=== PATIENT | male | born 1950 | race Caucasian/White ===

== ENCOUNTER 2017-08-31 10:30 | Outpatient (RCR) | payer MEDICARE, OTHER, SELFPAY ==
--- NOTE | 2017-06-11 11:20 | HP.PTEVAL ---
Patient's Visit Information FLORENCIA YI is a 67 year old M referred to Physical Therapy by KELLEY Drake with a diagnosis of SHOULDER ARTHRITIS,S/P TSR. Date of Evaluation: 06/11/17 Physical Therapist: Talha Juarez PT, - Visit Plan Frequency: 2x /Week Duration: 8-12 WEEKS Plan: *SEE PROTOCAL*-FOR PROGRESSION S/P TSR -JUNE 02. PRECAUTION - KEEP ELBOW AT 90 DEGREES for 3weeks ,ER 20 degrees 6 weeks NO ACTIVE ELBOW FLEXION. 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 Drake at [facility]. Patient d/c to home next day with sling.Sling on for 3weeks after surgery. Prior to surgery patient had CATSCAN of shoulder. Patient had pain in shoulder ,but patient also had bone spurs and long heasd bicep torn. Patient has limited with all ADL'S and self hygine and housework tasks. Denies parathesia/tingling . Sleeping good. Patient also had arhtroscopic surgery 6 years ago .PRECAUTION: PACEMAKER. VOCATION: retired. SOCIAL: . HOBBIES: baseball - Pain Left Shoulder Pain Intensity (Out of 10): 1 Pain Intensity Range: 10 - Objective POSTURE: mild foward posture,sling inact. SKIN : inscion well approximate ,sterry strips ,banage no drainage. NEURO: inact ,denies parathesia/tingling. PROM:shoulder flexion 80 degrees with elbow bent 90 degrees,ER to 0 degrees. 3 weeks maitain. MMT: NT - Goals Goal 1:: Independant with HEP . Goal Time Frame: 8-12 Weeks Goal 2:: Patient to be Independant with posture for ADL'S Goal Time Frame: 8-12 Weeks Goal 3:: Patinet to decrease pain by 75% or greater to improve function with ADLS' Goal Time Frame: 8-12 Weeks Goal 4:: Patient improve AROM shoulder flexion 145 ,abduction in scapation 140 ,ER 70 degrees to improve function with ADL'S Goal Time Frame: 4-6 Weeks Goal 5:: Patient increase strength RTC 4/5 ,DELTOID 3+/5-4-/5 to omprove ADL'S Goal Time Frame: 4-6 Weeks Goal 6:: Patient be able to perform ADL'S and housework task with min limiations above 90 degrees Goal Time Frame: 8-12 Weeks - Rehabilitation Potential Physical Therapy Diagnosis: This patient underwent s/p TSR with bicep tendon repair with current impairments with ROM ,strength,pain with decits with ADLS' ,self hygine and housework tasks,thus benifit from skilled PT Rehabilitation Potential: Good - Anticipated Interventions Patient/Client Instruction: Educate patient on: Condition, Plan of Care For the Purpose of:: To decrease pain, To increase ROM, To improve nutrient delivery to tissue, To increase oxygenation perfusion, To improve muscle performance and motor function, To improve ability to perform ADL's, To improve performance and independence with ADL's, To improve ability of physical actions for home/community/work/leisure, To improve health of tissue, To decrease soft tissue restriction, To increase flexibility/ROM, To assume or resume ADL's, To improve tolerance to ADL's Therapeutic Exercise to Include: Strength training, Postural training, Passive ROM, Active ROM Comment: AAROM SHOULDER,RTC/SCAPULAR. SEE PROTOCAL. ELBOW FLEXION 90 FOR 3 WEEKS,ER 20 DEGRREES 6WEEKS For the Purpose of:: To decrease pain, To increase ROM, To improve muscle performance and motor function, To improve ability to perform ADL's, To increase tolerance to activity/condition/position, To improve performance and independence with ADL's, To improve ability of physical actions for home/community/work/leisure, To improve health of tissue, To decrease soft tissue restriction, To increase flexibility/ROM, To assume or resume ADL's, To improve ability to perform tasks related to life management, To improve tolerance to ADL's Cryotherapy (ice pack, ice massage): Yes Thermo therapy (hot pack): Yes For the Purpose of:: To decrease pain, To increase ROM, To improve nutrient delivery to tissue, To increase oxygenation perfusion, To improve health of tissue, To decrease soft tissue restriction Thank you for the opportunity to evaluate your patient. For Medicare and Medicare HMO plans, please review the plan of care and approve it. It will need to be FAXED BACK to us at [phone] for Medicare purposes. Please let me know if there are questions or concerns regarding this plan of care. Physician Signature: Date:
--- NOTE | 2017-08-31 11:08 | HP.PTDCSUM_ITS ---
HP - PT D/C Summary It has been my pleasure to treat FLORENCIA YI under orders from KELLEY GRANT, for the diagnosis of SHOULDER ARTHRITIS,S/P TSR for a total of 10 visit(s). Discharge Date: Please see the following information for a summary of their discharge status. - Subjective Subjective: Doing good ..ocassionally clicking. Able to do all ADL'S and function - Pain Left Shoulder Pain Intensity (Out of 10): 0 - Overall Improvement % Improvement: 100 - Objective Objective/Function: POSTURE: mild foward head rounded shoulders. PALAPTION: unremarkable. NEURO: intact. AROM: flexion 150 degrees,abd 140 degrees ,ER 90. MMT: 4/5 RTC/DELTOID. FUNCTION TEST: behind neck C6,IR tightness L1 - Goals Goal 1:: Independant with HEP . Goal Progress: Goal Met Goal 2:: Patient to be Independant with posture for ADL'S Goal Progress: Goal Met Goal 3:: Patinet to decrease pain by 75% or greater to improve function with ADLS' Goal Progress: Goal Met Goal 4:: Patient improve AROM shoulder flexion 145 ,abduction in scapation 140 , ER 70 degrees to improve function with ADL'S Goal Progress: Goal Met Goal 5:: Patient increase strength RTC 4/5 ,DELTOID 3+/5-4-/5 to omprove ADL'S Goal Progress: Goal Met Goal 6:: Patient be able to perform ADL'S and housework task with min limiations above 90 degrees Goal Progress: Goal Met - Plan Plan: D/C TO HEP - D/C Information If there are questions or concerns regarding this patient's physical therapy, please feel free to call me at [phone]. Thank you for the referral of this patient. Sincerely, Talha Juarez, PT,
== END 2017-08-31 19:00 | disposition home or self-care (01) ==
LOC: PT 10:30
PROVIDERS: Family Provider Family Medicine; PCP Family Medicine
DX: M19.019 Primary osteoarthritis, unspecified shoulder (principal)
CPT/HCPCS: 97110; 97162; G8985; G8988

== ENCOUNTER 2019-03-27 11:06 | Outpatient (RCR) | payer MEDICARE, OTHER, SELFPAY | END 2019-03-27 23:59 | disposition home or self-care (01) | LOC: DC 11:06 | PROVIDERS: Family Provider Family Medicine; PCP Family Medicine; Visit Provider Nurse Practitioner Family | DX: Z71.3 Dietary counseling and surveillance (principal); E11.9 Type 2 diabetes mellitus without complications; K74.60 Unspecified cirrhosis of liver | CPT/HCPCS: 97802 ==

== ENCOUNTER 2019-08-20 00:06 | Emergency (ER) | payer MEDICARE, OTHER, SELFPAY ==
[2019-08-20 00:06] VITALS: BP 191/110; PULSE 64; RESP 15; TEMP 36.7; O2SAT 97; BMI 24.8
--- NOTE | 2019-08-20 00:11 | CT_ITS ---
We are attempting to reach an attending provider to discuss findings. An addendum with communication details will be sent when the communication is complete. STUDY: CT ABDOMEN AND PELVIS WITHOUT CONTRAST REASON FOR EXAM: Male, 69 years old. N/V X 4 TODAY RADIATION DOSAGE (If Supplied By Facility): CTDIvol = ( 16.89 ) mGy, DLP = ( 866.92 ) mGycm TECHNIQUE: Transaxial images were obtained from the dome of the diaphragm to the symphysis pubis without oral contrast, and without intravenous contrast. Sagittal and coronal images were reconstructed. Individualized dose optimization techniques were used for this CT. COMPARISON: September 22, 2012 CT scan abdomen and pelvis. FINDINGS: The visualized lung bases are unremarkable. There is borderline cardiac enlargement there is partially visualized pacer leads overlying the heart. The liver is lobulated low attenuating left hepatic lobe. There is visualized pericholecystic fluid ill-defined appearance of the gallbladder wall. There is fluid adjacent to the liver.. There is a inhomogeneous appearance of the spleen which may be related to the timing of this study. The spleen measures 14.8 x 14.1 x 10.1 cm. There is diffuse atrophy of the pancreas. Normal bilateral adrenal glands. Is a cyst in the right kidney measuring 1.9 x 1.7 cm. The Hounsfield units are in the range of simple fluid. There is a cyst measuring 6.3 mm. There is a well-circumscribed cystic structure left kidney measuring 1.8 x 1.3 cm. Larger than prior study, 2013, 7 years ago when it measured 1.1 x 1.0 cm. Normal visualized stomach. There is a decompressed small bowel and distention of the right there is moderate stool in the colon. There is non-visualization of the appendix. There is tortuous and partially calcified. There is calcification of the bilateral renal arteries. Normal inferior vena cava. Allowing for mixing of contrast there is a filling defect within the portal vein suggesting possible partial thrombus see image 51 series 601 and image 35 series 2. There is a thick-walled appearance of the bladder suspicious for cystitis similar to prior study. There is postoperative change in the anterior aspect of the pelvis suggesting prior hernia repair. There is a small umbilical hernia containing fat. There are diffuse degenerative changes of the visualized lumbar spine. CT/Abdomen/Pelvis W IV Cont ONLY IMPRESSION: Lobulated fatty infiltrated liver''s compatible with cirrhosis. There is a ill-defined appearance of the gallbladder with pericholecystic fluid. Consider acute cholecystitis. Pericholecystic fluid, In this setting it could be related to hepatitis or ascites. There is a filling defect within the portal vein and splenic confluence and inferior mesenteric vein, see image 53 axial views, which may represent partial thrombosis recommend follow-up ultrasound of the upper abdomen. In homogeneous appearance of the enlarged spleen which may represent a contrast enhancement phase phenomenon. Bilateral renal cysts larger than prior study. Simple cysts can enlarge over time however could consider follow-up ultrasound. There is a decompressed appearance of the left side small bowel compared to the right side small bowel. This is suspicious for the possibility of a partial small bowel obstruction possibly associated with chronic partial malrotation or internal hernia. Constipation diverticulosis no visualized diverticulitis. Wall thickening of the bladder suspicious for cystitis. Visualized pacemaker. Electronically Signed: Cassie Arriola MD at 1:41 EDT Tel , Service support ,
--- NOTE | 2019-08-20 00:12 | ED.VIS.GEN ---
History of Present Illness Chief Complaint: Nausea/Vomiting Informant: Patient Onset: Today Context: Sudden Onset Timing: Continuous Current Severity: Moderate Maximum Severity: Moderate Narrative: The patient is a 69-year-old male with medical history significant for autoimmune hepatitis who is currently on transplant medications without having transplant, prior double hernia repair, hypertension, and history of Lyme disease the presents to the emergency department with nausea and vomiting. Patient denies any pain. He states today, he began to have this a sensation of nausea. He states that every time he reviewed he would vomit. He states his been approximately 4 times. He is not been able to keep anything down. He states he is moving his bowels without issue. He denies any fevers or chills. He denies any chest pain or shortness of breath. He states he is otherwise been in his normal state of health. Prior similar symptoms: No Recent Illness/Hospitalization: No Past Medical History - Allergies and Home Meds Allergies/Adverse Reactions: Allergies acetaminophen [From Vicodin] Allergy (Verified 08/20/19 00:13) Anaphylaxis hydrocodone [From Vicodin] Allergy (Verified 08/20/19 00:13) Anaphylaxis Primary Care Physician: Varghese Orr III, MD [Primary Care Provider] - Prior records reviewed: Yes Past Medical History: - - Hypertension, autoimmune hepatitis, drug-induced diabetes Surgical History: herniorrhaphy Smoking Status: Former smoker Review of Systems General: Denies: Chills, Fever, Sweats Eyes: Denies: Visual changes - bilaterally, Diplopia ENT: Denies: Rhinorrhea, Sore throat Cardiovascular: Denies: Chest pain, Palpitations Respiratory: Denies: Dyspnea, Cough, Dyspnea on exertion Gastrointestinal: Reports: Nausea, Vomiting. Denies: Abdominal pain, Diarrhea, Melena, Hematochezia Genitourinary: Denies: Dysuria, Hematuria, Frequency Musculoskeletal: Denies: Back pain, Extremity Pain Skin: Denies: Rash, Wounds Neurological: Denies: Headache, Weakness, Numbness Physical Exam Vital Signs/Narrative: Vital Signs Temp Pulse Resp BP Pulse Ox 08/20/19 00:06 98.0 F 64 15 191/110 H 97 Inital Vital Signs reviewed: Yes General: Well nourished, Well developed, No Acute Distress Head: Normocephalic, Atraumatic Eyes: Perrl, EOMI ENT: Moist mucous membranes, No rhinorrhea Neck: Supple, Nontender Cardiovascular: Regular rate, Regular rhythm, No murmurs Respiratory: No distress, CTA bilaterally, Chest nontender Abdomen: Soft, Nontender, Nondistended, Normal bowel sounds Back: Nontender, Normal Inspection Extremities: Nontender, No edema Skin: Normal color, No rash Neurological: Alert, Oriented x3, Cranial nerves II-XII grossly intact, Normal Strength, Normal Sensation Psychological: Normal affect, Normal Mood Diagnostic/Tx/Re-eval Clinical Impression(s) from Imaging Studies Abdomen/Pelvis CT 08/20/19 00:11 IMPRESSION: Lobulated fatty infiltrated liver''s compatible with cirrhosis. There is a ill-defined appearance of the gallbladder with pericholecystic fluid. Consider acute cholecystitis. Pericholecystic fluid, In this setting it could be related to hepatitis or ascites. There is a filling defect within the portal vein and splenic confluence and inferior mesenteric vein, see image 53 axial views, which may represent partial thrombosis recommend follow-up ultrasound of the upper abdomen. In homogeneous appearance of the enlarged spleen which may represent a contrast enhancement phase phenomenon. Bilateral renal cysts larger than prior study. Simple cysts can enlarge over time however could consider follow-up ultrasound. There is a decompressed appearance of the left side small bowel compared to the right side small bowel. This is suspicious for the possibility of a partial small bowel obstruction possibly associated with chronic partial malrotation or internal hernia. Constipation diverticulosis no visualized diverticulitis. Wall thickening of the bladder suspicious for cystitis. Visualized pacemaker. Electronically Signed: Cassie Arriola MD at 1:41 EDT Tel , Service support , ADDENDUM: 08/20/19 0157 IMPRESSION: Lobulated fatty infiltrated liver''s compatible with cirrhosis. There is a ill-defined appearance of the gallbladder with pericholecystic fluid. Consider acute cholecystitis. Pericholecystic fluid, In this setting it could be related to hepatitis or ascites. There is a filling defect within the portal vein and splenic confluence and inferior mesenteric vein, see image 53 axial views, which may represent partial thrombosis recommend follow-up ultrasound of the upper abdomen. In homogeneous appearance of the enlarged spleen which may represent a contrast enhancement phase phenomenon. Bilateral renal cysts larger than prior study. Simple cysts can enlarge over time however could consider follow-up ultrasound. There is a decompressed appearance of the left side small bowel compared to the right side small bowel. This is suspicious for the possibility of a partial small bowel obstruction possibly associated with chronic partial malrotation or internal hernia. Constipation diverticulosis no visualized diverticulitis. Wall thickening of the bladder suspicious for cystitis. Visualized pacemaker. N.B. : The above information has been verbally conveyed by Cassie Arriola MD to Babatunde Lundberg MD, on 08/20/2019 01:45:49 (ET). Electronically Signed: Cassie Arriola MD at 1:41 EDT Tel , Service support , Abnormal Lab Results 08/20/19 08/20/19 08/20/19 00:20 00:20 00:55 WBC 5.8 RBC 4.31 L Hgb 15.2 Hct 43.5 MCV 100.9 H MCH 35.3 H MCHC 34.9 RDW Std Deviation 53.3 H RDW Coeff of Donna 14.2 Plt Count 74 L MPV 12.7 H Immature Gran % (Auto) 0.300 Neut % (Auto) 76.0 H Lymph % (Auto) 16.1 L [place] % (Auto) 7.1 Eos % (Auto) 0.3 Baso % (Auto) 0.2 Absolute Neuts (auto) 4.4 Absolute Lymphs (auto) 0.93 Nucleated RBC % 0 Platelet Estimate MOD DEC Sodium 135 L Potassium 4.0 Chloride 99 Carbon Dioxide 29.0 Anion Gap 7 BUN 22 H Creatinine 1.08 Estim Creat Clear Calc 68.86 Est GFR (MDRD) Af Amer 87 Est GFR (MDRD) Non-Af 72 BUN/Creatinine Ratio 20.4 H Glucose 158 H Calcium 9.4 Total Bilirubin 1.70 H AST 80 H ALT 64 H Alkaline Phosphatase 198 H Total Protein 8.2 Albumin 3.6 Globulin 4.6 H Albumin/Globulin Ratio 0.8 L Lipase 20 L Urine Color Yellow Urine Clarity Sl. Cloudy Urine pH 6.0 Ur Specific [place] 1.015 Urine Protein 100 H Urine Glucose (UA) Normal Urine Ketones Negative Urine Occult Blood 25 H Urine Nitrite Negative Urine Bilirubin Negative Urine Urobilinogen Normal Ur Leukocyte Esterase Negative Urine RBC 0 SEEN Urine WBC 0 SEEN Ur Squamous Epith Cells 0 SEEN Amorphous Sediment 1+ Urine Bacteria 0 SEEN Urine Mucus 0 SEEN - Medical Decision Making Patient is a 69-year-old male with history of autoimmune hepatitis that presents to the emergency department nausea and vomiting. He has absolutely no pain. He states however, when he tries to eat, he has a sudden sensation that he is full and will have to vomit. IV was established. The patient was given fluids and antiemetics with some improvement of his symptoms. Labs were obtained. He does have some elevation of his liver functions, but this does appear to be chronic in nature. He is also thrombocytopenic which is chronic in nature. Patient underwent CT of the abdomen and pelvis. There is multiple abnormalities that were noted. There was questionable cholecystitis versus ascites or cirrhosis. Again, the patient has no right upper quadrant pain and his liver functions are stable. My suspicion for cholecystitis is low. However, he also has evidence of multiple thrombosis of the mesenteric return system and a questionable partial small bowel obstruction versus focal ileus. I do feel that this patient has been to require higher level of care especially given his autoimmune hepatitis and the fact he is on multiple immunosuppressants now with thrombus. I discussed this with the patient and he is requesting transfer to the [facility], where he does follow with GI service. I initially discussed the patient with surgery who deferred to medicine. I discussed this with the medicine quarterback, who deferred to hepatology. The patient was accepted by Dr. Bear. She would prefer to hold on acute anticoagulation until the patient is evaluated. Impression 1. Nausea and vomiting 2. History of autoimmune hepatitis 3. Mesenteric vein thrombosis 4. Partial bowel obstruction ED Disposition - Plan for ED Patient: Referrals: Varghese Orr III, MD [Primary Care Provider] -
[2019-08-20] MEDS: 0.9% Normal Saline 1,000 ML 1000 ML IV (00:21)
[2019-08-20] MEDS: Ondansetron 4 MG/2 ML Vial IV (00:21)
[2019-08-20 00:32] LABS: Absolute Lymphocyte Count 0.93 X10^3/uL (0.83-4.51); Absolute Neutrophil Count 4.4 X10^3/uL (2.0-7.7); Basophil# 0.01 X10^3/uL; Basophil% 0.2 % (0-1); Eosinophil# 0.02 X10^3/uL; Eosinophils% 0.3 % (0-5); Hematocrit 43.5 % (40-54); Hemoglobin 15.2 g/dL (13.0-16.5); Lymphocyte # 0.93 X10^3/ul (4.0); Lymphocyte % 16.1 % (19-41); Mean Corp Hgb Conc 34.9 g/dL (32-36); Mean Corpuscular Hgb 35.3 pg (27.0-32.0); Mean Corpuscular Volume 100.9 fL (80-94); Mean Platelet Vol. 12.7 fl (6.2-12.0); Monocyte# 0.41 X10^3/uL; Monocyte% 7.1 % (0-10); NRBC Flagged by Analyzer 0 % (0-5); POSITIVE COUNT YES; Platelet Count 74 K/mm3 (150-450); RBC Distribution Width CV 14.2 % (11.6-14.6); RBC Distribution Width SD 53.3 fl (35.1-43.9); Red Blood Count 4.31 M/mm3 (4.6-6.2); White Blood Count 5.8 K/mm3 (4.4-11.0)
[2019-08-20 00:41] LABS: Differential Indicated SCAN CRITERIA MET
[2019-08-20 00:48] LABS: ALB/GLOB Ratio 0.8 RATIO (0.9-2.4); AST(SGOT) 80 U/L (15-37); Alanine Aminotransfer ALT/SGPT 64 U/L (16-61); Albumin, Serum 3.6 g/dL (3.2-5.0); Alkaline Phosphatase 198 U/L (45-117); Anion Gap 7 (5-15); BUN 22 mg/dL (7-18); BUN/Creat Ratio 20.4 RATIO (10-20); Calcium,Total 9.4 mg/dL (8.5-10.1); Chloride 99 mmol/L (98-107); Creatinine, Serum 1.08 mg/dL (0.70-1.30); EST Glomerular Filtration Rate 72 mL/min (>60); Est Glom Filt Rate - Afr Amer 87 mL/min (>60); Estimated Creatinine Clearance 68.86 ml/min; Globulin 4.6 g/dL (2.2-4.2); Glucose 158 mg/dL (74-106); Lipase 20 U/L (73-393); Protein, Total 8.2 g/dL (6.4-8.2); Sodium Level 135 mmol/L (136-145)
[2019-08-20 00:59] LABS: Bacteria 0 SEEN /hpf (None Seen); Mucous, Urine 0 SEEN /hpf (<or=2+); Red Blood Cells-Urine 0 SEEN /hpf (0-5); Squamous Epithelial Cells - UA 0 SEEN /hpf (0-5); White Blood Cells 0 SEEN /hpf (0-5)
[2019-08-20 01:01] LABS: Platelet Estimate MOD DEC (ADEQ)
[2019-08-20 01:03] LABS: Color, Urine Yellow (Yellow); Glucose, Dipstick Normal (Normal); Ketone-Dipstick Negative (Negative); Leukocyte Esterase-Dipstick Negative /ul (Negative); Nitrite-Dipstick Negative (Negative); Occult Blood-Urine 25 /ul (Negative); Protein-Dipstick 100 mg/dl (Negative); Specific Gravity, Urine 1.015 (1.002-1.030); Urine Bilirubin Dipstick Negative (Negative); Urine Clarity Sl. Cloudy (Clear); Urine Urobilinogen Normal (Normal)
[2019-08-20 01:29] LABS: Amorphous Sediment 1+
[2019-08-20 02:06] VITALS: BP 161/109; RESP 15; O2SAT 94
[2019-08-20 02:13] LABS: International Normalized Ratio 1.1; Partial Thromboplast Time 30.7 Seconds (24.1-36.2); Prothrombin Time (Protime)PT. 13.7 SECONDS (11.7-14.9)
[2019-08-20 05:46] VITALS: BP 161/109; PULSE 75; RESP 15; TEMP 36.7; O2SAT 97
== END 2019-08-20 05:18 | disposition short-term general hospital (02) ==
LOC: ED 00:27
PROVIDERS: Emergency Provider Emergency Medicine; PCP Family Medicine
DX: R11.12 Projectile vomiting (principal); I10 Essential (primary) hypertension; K75.4 Autoimmune hepatitis; Z87.891 Personal history of nicotine dependence
CPT/HCPCS: 74177; 80053; 81001; 83690; 85025; 85610; 85730; 96361; 96374; 99284; J7030; Q9967; A4216; J2405

== ENCOUNTER 2021-02-18 09:00 | Outpatient (RCR) | payer MEDICARE, OTHER, SELFPAY ==
--- NOTE | 2021-01-08 08:26 | HP.OTEVAL ---
Patient's Visit Information FLORENCIA YI is a 70 year old M, referred to Occupational Therapy by [facility], with a diagnosis of Dupuytren's contracture. Date of Evaluation: 01/06/21 Occupational Therapist: Jing Vasquez, OTR/Reyna, CHT - Subjective This 70 year old male was seen for OT eval with dx of Dupuytren's contractor. pt states he suffered from this contracture for years. pt state he found out about the xiaflex injection and decided to have his hand done. Pt states any activity like wearing gloves, he was unable to do. Today pt is very pleased with his results. Pt arrives for a custom orthosis for night use to assist in limiting contracture return. - ROM MP: left LF -10/ PIP: left LF -5/95 DIP: left LF 5/45 ROM Comments: pt demo with full composite fist - Sensation Sensation Comments: denies - Quick DASH-Disab of Arm,Shoulder& Hand Quick DASH Score: 36.3625 - Goals Goal:: pt will demo ind. doffing/donning custom orthosis by end of 1st session. pt will demo understanding of using orthosis at night for next 12 weeks and gradual weaning of use by end of 1st session. - Rehabilitation General Assessment: s/p xiaflex injection and manipulation. pt demo the ability to form a composite fist and good digit ext. Due to procedure pt demo a need of custom paddle orthosis for night use to decrease risk of contracture. Today therapist karthik. custom orthosis, ed. in use, wear and care. Pt demo understanding and agree to return to facility as needed to have adj made. Pt is to continue with HEP of AROM, revers blocking and PROM. pt demo understanding and agree to POC. Rehabilitation Potential: Good - Anticipated Interventions A/AAROM/PROM, Orthoses, Home Program - Visit Plan General Plan: Today therapist karthik. custom orthosis for night use -. ed. pt on AROM and revers blocking pt demo understanding TEXT: Thank you for the opportunity to evaluate your patient. For Medicare and Medicare HMO plans, please review the plan of care and approve it. It will need to be FAXED BACK to us at [phone] for Medicare purposes. Please let me know if there are questions or concerns regarding this plan of care. Physician Signature: Date:
--- NOTE | 2021-01-09 14:31 | HP.PTEVAL ---
Patient's Visit Information FLORENCIA YI is a 70 year old M referred to Physical Therapy by [facility] with a diagnosis of OA L KNEE. Date of Evaluation: 01/09/21 Physical Therapist: Gretta Dominguez PT, Cert MDT - Visit Plan Frequency: 2-3x /Week Duration: 4-6 Weeks Plan: *PACEMAKER/DEFIBULATOR*. RIGHT KNEE US. POSTURE CORRECTION/STRENGTHENING, INSTRUCTION IN APPROPRIATE BODY MECHANICS AND ACTIVITY MODIFICATIONS. DLS STARTING WITH A NEUTRAL SPINE PROGRESSING ROM TOLERATED. ANTHONY LE ROM, STRETCHING AND STRENGTHENING. HEP INSTRUCTION. - Subjective Work/Leisure: RETIRED. STARTED GOLFING ABOUT 2 YEARS AGO. STILL GOLFING THIS SEASON. 30 YEARS OF BASEBALL PITCHING UNTIL ABOUT 3 YEARS AGO. HASN'T BEEN ABLE TO RUN FOR A FEW YEARS BUT THAT IS HIS GOAL. Present symptoms: LEFT KNEE PAIN THAT RADIATES UP TO HIP AND DOWN TO ANKLE. SOME RESIDUAL LEFT FOREFOOT NUMBESS SINCE BACK INJURY. Present since: ABOUT 3,4,5 MONTHS AGO - NAGGING AND GETTING WORSE. Pain Scale: WORSE 7/10, LEAST 0/10. Currently: 03/31. Commenced as a result of: NO APPARENT REASON. Symptoms at onset: KNEE ACHE. Worse: DRIVING!! SITTING WITH LEG BENT. SITTING AT DINNER TABLE. SITTING AT DESK. CAR TRIPS ARE AGONY. GOING UP AND DOWN STEPS. WALKING. STANDING. TAILOR SITTING WITH LLE. Better: LYING DOWN WITH LEG STRAIGHT. ICE. Disturbed sleep: NO. Previous history/Previous treatment: MINOR L KNEE MENISCUS SX ABOUT 20 YEARS AGO AND PATIENT REPORTS FULL RECOVERY. Treatment this episode: L KNEE CORTISONE SHOT 2 DAYS AGO - HAS HELPED - DOING BETTER ON STEPS. Coughing/sneezing/straining: NEGATIVE. Gait: LABORED. HAS TO THINK ABOUT MOVING THE LEFT LEG. LEFT LEG HAS ON A FEW OCCASSIONS BUCKLED BUT PRE-DATES THE KNEE ISSUES. NO FALLS. TIME AND DISTANCE LIMITED BY L KNEE PAIN. Difficulty initiating urination: NO. Accidents: NO. Unexplained weight loss: NO. Imaging: RECENT LEFT KNEE X-RAY - I WAS IMPRESSED WITH HOW GOOD IT LOOKED. STATES THE DOCTOR SAW SOME SMALL SPURS AND MILD CALCIUM DEPOSIT. PMH/Recent major surgery: ABOUT 6 TO 7 YEARS AGO - DISCECTOMY L4 AND L5 DETERIORATED. L SHLD REPLACEMENT 3 YEARS AGO. R SHLD RCR. PACEMAKER/DEFIBULATOR. DOUBLE HERNIA. AUTOIMMUNE HEPITITIS. HEART CONDITION. OTHER: PATIENT REPORTS HE WAS DRAGGING HIS LEFT LEG AROUND BEFORE BACK SURGERY ABOUT 7 YEARS AGO. RESIDUAL GAIT DEVIATION/LLE DYSFUNCTION AND NUMBNESS AFTER SURGERY AND TO DATE. REPORTS LLE DYSFUNCTION WAS MILD PRIOR TO ABOUT 5 MONTHS AGO WHEN L KNEE PAIN CAME ON. HAS BEEN SEEING A CHIROPRACTOR FOR 45+YEARS - LAST VISIT WAS LAST WEEK. HAS ALSO DONE MASSAGE. NO RECENT LUMBAR IMAGING. LLE EMG STUDY ABOUT A YEAR AGO BUT PATIENT CAN'T REMEMBER WHY. - Objective Sitting/Standing Posture: FAIR. REDUCED LUMBAR LORDOSIS BUT NO RELEVENT LATERAL SHIFT. Active Correction of posture: NE. Other Observations: INDEP GAIT INTO PT WITHOUT ANY ASSISTIVE DEVICES OR LOB BUT AUDIBLE FOOT SLAP LEFT. Motor deficit: RIGHT LE 5/5. L LE: HIP 4/5, KNEE 5/5, ANKLE DORSIFLEX 2/5. Sensory deficit: ANTHONY LE LIGHT TOUCH SENSATION IS GROSSLY INTACT. ROM deficit: TIGHT ANTHONY HIP FLEXORS, HS'S AND GASTROC SOLEUS COMPLEX'S LEFT > RIGHT. LEFT KNEE AROM - 8 EXT TO 125 DEG FLEX IN SUPINE WITH A HEEL SLIDE. Dural Signs: NEGATIVE ANTHONY LE'S WITH SLUMP TEST. Lumbar mvmt loss: flex - NIL. ext - ANGELINE. R SG - MOD. L SG - MOD. PATIENT DENIES INCREASED LOW BACK OR LE SX'S WITH LUMBAR ROM TESTING HOWEVER HE REPORTED SOME INCREASED L KNEE PAIN RIGHT AFTER. UNABLE TO DETERMINE IF THIS IS RELATED TO LUMBAR ROM TESTING OR NOT. Core strength: FAIR. Palpation: MILD LEFT KNEE EDEMA COMPARED TO RIGHT KNEE. NO ACUTE THORACIC, LUMBAR OR HIP TENDERNESS. - Balance/Special Test Scores Lower Extremity Functional Score: 17 - Goals Goal 1:: DECREASE C/O LEFT LE PAIN. Goal Time Frame: 4-6 Weeks Goal 2:: IMPROVE DRIVING, STANDING, WALKING AND STAIR CLIMBING FUNCTION. Goal Time Frame: 4-6 Weeks Goal 3:: PATIENT WILL BE INDEP WITH A HEP FOR CONTINUED IMPROVEMENT ONCE FORMAL PHYSICAL THERPAY CONCLUDES. Goal Time Frame: 4-6 Weeks - Anticipated Interventions Patient/Client Instruction: Educate patient on: Condition, Plan of Care, Risk Factors For the Purpose of:: To improve self management Therapeutic Exercise to Include: Strength training, Body mechanics, Postural training, Flexibilty training, Gait and locomotor training, Neuromotor development, Dynamic Lumbar Stabilization For the Purpose of:: To decrease pain, To increase ROM, To improve muscle performance and motor function, To increase tolerance to activity/condition/position, To improve ability of physical actions for home/community/work/leisure, To improve gait and locomotor functions Cryotherapy (ice pack, ice massage): Yes Thermo therapy (hot pack): Yes Ultrasound (thermal/non thermal): Yes For the Purpose of:: To decrease pain, To decrease swelling/inflammation, To improve nutrient delivery to tissue Thank you for the opportunity to evaluate your patient. For Medicare and Medicare HMO plans, please review the plan of care and approve it. It will need to be FAXED BACK to us at [phone] for Medicare purposes. For Medicare only, by signing this I certify the plan of care. Please let me know if there are questions or concerns regarding this plan of care. Physician Signature: Date:
--- NOTE | 2021-02-18 10:06 | HP.PTDCSUM ---
It has been my pleasure to treat FLORENCIA YI referred by [facility], with the diagnosis of OA L KNEE for a total of 6 visit(s). Discharge Date: Please see the following information for a summary of their discharge status. Subjective: PATIENT REPORTS HIS KNEE IS VERY GOOD NOW. NO PAIN GOING UP AND DOWN STEPS. THE ONLY SX IS A LITTLE STIFFNESS AFTER PROLONGED SITTING. TOLERATING 2X10 OF HEP WELL. PLANS TO PROGRESS TO 3X10 TOLERATED. REQUESTING US. LEFT THIGH Pain Intensity (Out of 10): 0 LOW BACK PAIN Pain Intensity (Out of 10): 2 % Improvement: 95 Objective/Function: ALL GOALS MET. PATIENT IS APPROPRIATE FOR DISCHARGE. HE NO LONGER HAS L KNEE SWELLING AND HE HAS VERY NEAR FULL L KNEE EXT TO 135 DEG FLEXION NOW. TESTING INTO END-RANGE FLEXION AND EXTENSION PROVOKED SOME KNEE DISCOMFORT HELPED BY US. PATIENT COMMUNICATES/DEMONSTRATES A VERY GOOD UNDERSTANDING OF ALL INSTRUCTIONS GIVEN AND HAS A GOOD UNDERSTANDING OF BIOMECHANICS. Goal 1:: DECREASE C/O LEFT LE PAIN. Goal Progress: Goal Met Goal 2:: IMPROVE DRIVING, STANDING, WALKING AND STAIR CLIMBING FUNCTION. Goal Progress: Goal Met Goal 3:: PATIENT WILL BE INDEP WITH A HEP FOR CONTINUED IMPROVEMENT ONCE FORMAL PHYSICAL THERPAY CONCLUDES. Goal Progress: Goal Met Plan: D/C. PATIENT AGREEABLE. If there are questions or concerns regarding this patient's physical therapy, please feel free to call me at [phone]. Thank you for the referral of this patient. Sincerely, Gretta Dominguez, PT, Cert MDT Balance/Gait/Functional tests - Balance/Special Test Scores Lower Extremity Functional Score: 74
== END 2021-02-18 11:04 | disposition home or self-care (01) ==
LOC: PT 09:00
PROVIDERS: PCP Family Medicine
DX: M72.0 Palmar fascial fibromatosis [Dupuytren] (principal); M17.12 Unilateral primary osteoarthritis, left knee
CPT/HCPCS: 97035; 97162; 97166; 97530; 97760

== ENCOUNTER 2023-03-26 18:41 | Inpatient (IN) | payer MEDICARE, OTHER, SELFPAY ==
[2023-03-26 18:42] VITALS: BP 149/98; PULSE 76; RESP 16; TEMP 36.2; O2SAT 98; BMI 25.0
[2023-03-26 19:55] VITALS: BP 156/78; PULSE 74
[2023-03-26 20:01] LABS: Absolute Lymphocyte Count 1.67 X10^3/uL (0.83-4.51); Absolute Neutrophil Count 7.3 X10^3/uL (2.0-7.7); Basophil# 0.03 X10^3/uL; Basophil% 0.3 % (0-1); Eosinophil# 0.09 X10^3/uL; Eosinophils% 0.9 % (0-5); Hemoglobin 11.9 g/dL (13.0-16.5); Lymphocyte # 1.67 X10^3/ul (0.83-4.51); Lymphocyte % 16.9 % (19-41); Mean Corp Hgb Conc 33.1 g/dL (32-36); Mean Corpuscular Hgb 31.3 pg (27.0-32.0); Mean Corpuscular Volume 94.7 fL (80-94); Mean Platelet Vol. 13.4 fl (6.2-12.0); Monocyte# 0.75 X10^3/uL; Monocyte% 7.6 % (0-10); NRBC Flagged by Analyzer 0 % (0-5); Neutrophil # 7.29 X10^3/uL (2.7-7.7); Neutrophil % 73.9 % (47-70); POSITIVE COUNT YES; Platelet Count 86 K/mm3 (150-450); RBC Distribution Width CV 13.6 % (11.6-14.6); RBC Distribution Width SD 46.8 fl (35.1-43.9); White Blood Count 9.9 K/mm3 (4.4-11.0)
[2023-03-26 20:16] LABS: ALB/GLOB Ratio 0.8 RATIO (0.9-2.4); AST(SGOT) 62 U/L (15-37); Alanine Aminotransfer ALT/SGPT 65 U/L (16-61); Albumin, Serum 3.1 g/dL (3.2-5.0); Alkaline Phosphatase 194 U/L (45-117); Anion Gap 5 (5-15); BUN 58 mg/dL (7-18); BUN/Creat Ratio 42.3 RATIO (10-20); Calcium,Total 9.1 mg/dL (8.5-10.1); Chloride 106 mmol/L (98-107); Creatinine, Serum 1.37 mg/dL (0.70-1.30); EST Glomerular Filtration Rate 54 mL/min (>60); Est Glom Filt Rate - Afr Amer 65 mL/min (>60); Estimated Creatinine Clearance 51.92 ml/min; Globulin 4.1 g/dL (2.2-4.2); Glucose 224 mg/dL (74-106); Potassium 4.2 mmol/L (3.5-5.1); Protein, Total 7.2 g/dL (6.4-8.2); Sodium Level 138 mmol/L (136-145)
[2023-03-26 20:31] VITALS: BP 149/89; PULSE 79; RESP 18; O2SAT 97
--- NOTE | 2023-03-26 21:10 | EDS_ITS ---
HPI HPI - GI History of Present Illness Chief Complaint: GI Bleed Informant: patient and spouse/S.O. Narrative Narrative: Patient states he has had multiple black bowel movements starting this morning. He states his stomach just has not felt right in the upper abdomen for few days and he has not been eating. He is not really having abdominal pain now though. He had a ulcer when he was very young but never since. He has had multiple endoscopies. He has had 2 CT scans recently. 1 as part of regular every 6- month scan in 1 because he started some new protocol for his autoimmune hepatitis. He is on multiple meds including azathioprine and tacrolimus for this. He is not on anything for such as a PPI. While he was here, he threw up once and he threw up black material. No bright red on either end. No fever. PFSH PFSH Home Medications Metoprolol Succinate 150 mg PO BID 08/20/19 [History Last Taken Unknown] azathioprine 50 mg tablet 100 mg PO DAILY 08/20/19 [History Last Taken Unknown] budesonide 3 mg capsule,delayed,extended release 3 mg PO TID 08/20/19 [History Last Taken Unknown] clonidine HCl 0.1 mg tablet 1.5 tab PO BID 08/20/19 [History Last Taken Unknown] cyclobenzaprine 10 mg tablet 10 mg PO TID 08/20/19 [History Last Taken Unknown] omeprazole 20 mg capsule,delayed release 20 mg PO BID 08/20/19 [History Last Taken Unknown] tacrolimus 1 mg capsule, immediate-release 1 mg PO BID 08/20/19 [History Last Taken Unknown] ursodiol 300 mg capsule 300 mg PO TID 08/20/19 [History Last Taken Unknown] Allergy/AdvReac Type Severity Reaction Status Date / Time acetaminophen [From Vicodin] Allergy Anaphylaxis Verified 03/26/23 18:42 hydrocodone [From Vicodin] Allergy Anaphylaxis Verified 03/26/23 18:42 Social History Smoking Status: Former smoker ROS ROS ED Constitutional Constitutional ED: Denies chills or fever(s) ENT ENT ED: Denies rhinorrhea Cardiovascular Cardiovascular: Denies chest pain or palpitations Respiratory/Chest Respiratory/Chest: Denies cough or dyspnea Gastrointestinal Gastrointestinal: Reports diarrhea, melena, vomiting and other Details: See history of present illness Musculoskeletal Musculoskeletal: Denies arthralgias Integumentary Denies rash Neurologic Neurologic: Denies paresthesias Endocrine Endocrinology: Denies polydipsia or polyuria Hematologic/Lymphatic Hematologic/Lymphatic: Denies easy bleeding or easy bruising Allergic/Immunologic Allergic/Immunologic ED: Denies urticaria EXAM Physical Exam Narrative Exam Narrative: CONSTITUTIONAL: Patient is nontoxic in appearance. The patient looks comfortable. He does not look notably pale. HEENT: No notable trauma. Mucous membranes moist. EYES: No conjunctival injection. No proptosis. CARDIOVASCULAR: Regular rate. Regular rhythm. No notable murmur. No JVD. RESPIRATORY: No respiratory distress. Breathing is unlabored. No wheezes. No rhonchi. No rales. No pain with a deep breath. GASTROINTESTINAL: Not distended. Bowel sounds are normal. No tenderness. No guarding. No rebound. No palpable mass. No bruit. His abdomen is actually not tender anywhere. Overall relatively benign. He does have black emesis in the bucket next to him consistent with his story. GENITOURINARY: No tenderness over the bladder. No CVA tenderness. MUSCULOSKELETAL: Atraumatic. No peripheral edema. No cord. No tenderness along the deep venous system. No asymmetry. NEUROLOGICAL: Patient is alert and appropriate. No focal deficit noted. SKIN: No noted rashes. No diaphoresis. PSYCHIATRIC: Patient is calm. Mood is appropriate. Const Vital Signs: 03/26/23 18:42 03/26/23 19:55 03/26/23 20:31 Temperature 97.2 F L Temperature Source Temporal Pulse Rate 76 74 79 Respiratory Rate 16 18 Blood Pressure 149/98 H 156/78 H 149/89 H Blood Pressure Mean 115 104 109 Pulse Ox 98 97 Oxygen Delivery Method Room Air Room Air MDM MDM MDM Narrative Medical decision making narrative: Patient had some black coffee ground emesis in the bucket next to him. No red blood. Patient CBC shows hemoglobin at 11 9. This is lower than I have but the last 1 I have is from 2019. Platelets are a bit low at 86,000. But no other sources of bleeding. Patient's electrolytes show creatinine up at 1.37. But he does have a high BUN also at 58 which makes me more just shows some upper GI bleeding. Liver function test are abnormal but similar to about 4 years of Urine is clean I discussed case with animal husbandry professor. He recommended Rocephin and pantoprazole drip. Plan will be to do a scope in the morning. I discussed case with hospitalist also. Lab Data Labs: Laboratory Results - last 24 hr 03/26/23 03/26/23 19:50 21:21 WBC 9.9 RBC 3.80 L Hgb 11.9 L Hct 36.0 L MCV 94.7 H MCH 31.3 MCHC 33.1 RDW Std Deviation 46.8 H RDW Coeff of Donna 13.6 Plt Count 86 L MPV 13.4 H Immature Gran % (Auto) 0.400 Neut % (Auto) 73.9 H Lymph % (Auto) 16.9 L [place] % (Auto) 7.6 Eos % (Auto) 0.9 Baso % (Auto) 0.3 Absolute Neuts (auto) 7.3 Absolute Lymphs (auto) 1.67 Nucleated RBC % 0 Sodium 138 Potassium 4.2 Chloride 106 Carbon Dioxide 27.0 Anion Gap 5 BUN 58 H Creatinine 1.37 H Estim Creat Clear Calc 51.92 Est GFR (MDRD) Af Amer 65 Est GFR (MDRD) Non-Af 54 L BUN/Creatinine Ratio 42.3 H Glucose 224 H Calcium 9.1 Total Bilirubin 1.10 H AST 62 H ALT 65 H Alkaline Phosphatase 194 H Total Protein 7.2 Albumin 3.1 L Globulin 4.1 Albumin/Globulin Ratio 0.8 L Urine Color Yellow Urine Clarity Clear Urine pH 6.0 Ur Specific Stow 1.015 Urine Protein 100 H Urine Glucose (UA) 100 H Urine Ketones 5 H Urine Occult Blood Negative Urine Nitrite Negative Urine Bilirubin Negative Urine Urobilinogen Normal Ur Leukocyte Esterase Negative Urine RBC 0 SEEN Urine WBC 0 SEEN Ur Squamous Epith Cells 0 SEEN Urine Bacteria 0 SEEN Urine Mucus 0 SEEN Discharge Plan Triage Chief Complaint: GI Bleed ED Provider: Esteban Renee Dx/Rx/DC Orders Clinical Impression: Anemia, Thrombocytopenia, Acute upper gastrointestinal bleeding, History of immunosuppression therapy Primary Care Provider: Flako Ornelas Disposition Disposition: [facility]
[2023-03-26 21:25] LABS: Bacteria 0 SEEN /hpf (None Seen); Mucous, Urine 0 SEEN /hpf (<or=2+); Red Blood Cells-Urine 0 SEEN /hpf (0-5); Squamous Epithelial Cells - UA 0 SEEN /hpf (0-5); White Blood Cells 0 SEEN /hpf (0-5)
[2023-03-26 21:26] LABS: Color, Urine Yellow (Yellow); Glucose, Dipstick 100 mg/dl (Normal); Ketone-Dipstick 5 mg/dl (Negative); Leukocyte Esterase-Dipstick Negative /ul (Negative); Nitrite-Dipstick Negative (Negative); Occult Blood-Urine Negative /ul (Negative); Protein-Dipstick 100 mg/dl (Negative); Specific Gravity, Urine 1.015 (1.002-1.030); Urine Bilirubin Dipstick Negative (Negative); Urine Clarity Clear (Clear); Urine Urobilinogen Normal (Normal)
--- OUTSIDE RECORDS SUMMARY | 2023-03-26 21:31 | XMS RPT_ITS | CCD ---
Author Name Unknown Address [address] [place] [address] Organization [facility] Care Team Providers Care Smocker Name Role Phone SHAVON FAN Unavailable Unavailable CEBUL, GRAY Unavailable Unavailable CEBUL, GRAY Unavailable Unavailable SHAVON FAN Unavailable Unavailable SHAVON FAN Unavailable Unavailable CEBUL, GRAY Unavailable Unavailable SHAVON FAN E Unavailable Unavailable CEBUL III, GRAY A Unavailable Unavailable Flako Ornelas MD Primary Care Provider Kleber KWON, Caitlin Unavailable [phone] Flako Ornelas MD Primary Care Provider Kleber KWON, Marelly Unavailable Flako Ornelas MD Primary Care Provider Flako Ornelas MD Primary Care Provider Kleber KWON, Marelly Unavailable Kleber KWON, Marelly Unavailable REILLY SHARMA Attending Unavailable FLAKO ORNELAS Primary Care Unavailable REILLY SHARMA Attending Unavailable FLAKO ORNELAS Primary Care Unavailable FLAKO ORNELAS Primary Care Unavailable REILLY SHARMA Attending Unavailable FLAKO ORNELAS Primary Care Unavailable EDITH GENE A Attending Unavailable EDITH GENE A Attending Unavailable FLAKO ORNELAS Primary Care Unavailable Jonatan Beara Referring Unavailable FLAKO ORNELAS Primary Care Unavailable Jonatan Beara Referring Unavailable FLAKO ORNELAS Primary Care Unavailable Jonatan Beara Attending Unavailable FLAKO ORNELAS Primary Care Unavailable SELF Referring Unavailable FLAKO ORNELAS Primary Care Unavailable EDITH GENE A Attending Unavailable FLAKO ORNELAS Primary Care Unavailable GIACOMO DIEZ Referring Unavailable KWABENA PEDRAZA Attending Unavailable EDITH GENE Ronit Attending Unavailable YADIRA, FLAKO Tavares Primary Care Unavailable YADIRA, FLAKO Tavares Primary Care Unavailable EVELIN REICH Attending Unavailable YADIRA, FLAKO Tavares Primary Care Unavailable EDITH, REILLY Cottrell Attending Unavailable YADIRA, FLAKO Tavares Attending Unavailable YADIRA, FLAKO Tavares Primary Care Unavailable YADIRA, FLAKO Tavares Primary Care Unavailable Hemalatha Bear Referring Unavailable YADIRA, FLAKO Tavares Primary Care Unavailable EVELIN REICH Referring Unavailable YADIRA, FLAKO Tavares Primary Care Unavailable EVELIN REICH Attending Unavailable EDITH, GENE A Attending Unavailable YADIRA, FLAKO Tavares Primary Care Unavailable YADIRA, FLAKO Tavares Attending Unavailable YADIRA, FLAKO Tavares Primary Care Unavailable YADIRA, FLAKO Tavares Primary Care Unavailable EVELIN REICH Referring Unavailable YADIRA, FLAKO Tavares Primary Care Unavailable MYRA SEGUNDO Attending Unavailable Chema, Hemalatha Referring Unavailable YADIRA, FLAKO Tavares Primary Care Unavailable EDITH, REILLY A Attending Unavailable YADIRA, FLAKO Tavares Primary Care Unavailable BERNADETTE MILES Attending Unavailable BERNADETTE MILES Referring Unavailable YADIRA, FLAKO Tavares Primary Care Unavailable YADIRA, FLAKO Tavares Primary Care Unavailable Lady Julio César Attending Unavailable Chema, Hemalatha Referring Unavailable YADIRA, FLAKO Tavares Referring Unavailable YADIRA, FLAKO Tavares Primary Care Unavailable GIACOMO DIEZ Attending Unavailable EDITH, REILLY A Attending Unavailable YADIRA, FLAKO Tavares Primary Care Unavailable EDITH, GENE A Attending Unavailable YADIRA, FLAKO Tavares Primary Care Unavailable EDITH, GENE A Attending Unavailable YADIRA, FLAKO Tavares Primary Care Unavailable EDITH, GENE A Attending Unavailable YADIRA, FLAKO Tavares Primary Care Unavailable EDITH, GENE A Attending Unavailable YADIRA, FLAKO Tavares Primary Care Unavailable YADIRA, FLAKO Tavares Attending Unavailable YADIRA, FLAKO Tavares Referring Unavailable YADIRA, FLAKO Tavares Primary Care Unavailable EDITH, GENE A Attending Unavailable YADIRA, FLAKO Tavares Primary Care Unavailable YADIRA, FLAKO Tavares Primary Care Unavailable YADIRA, FLAKO Tavares Primary Care Unavailable EDITH, GENE A Attending Unavailable YADIRA, FLAKO Tavares Primary Care Unavailable YADIRA, FLAKO Tavares Referring Unavailable YADIRA, FLAKO Tavares Primary Care Unavailable EDITH, GENE A Attending Unavailable YADIRA, FLAKO Tavares Primary Care Unavailable EDITH, GENE A Attending Unavailable YADIRA, FLAKO Tavares Primary Care Unavailable YADIRA, FLAKO Tavares Primary Care Unavailable BERNADETTE MILES Attending Unavailable BERNADETTE MILES Referring Unavailable YADIRA, FLAKO Tavares Primary Care Unavailable BERNADETTE MILES Referring Unavailable EDITH, GENE A Attending Unavailable YADIRA, FLAKO Tavares Primary Care Unavailable YADIRA, FLAKO Tavares Referring Unavailable YADIRA, FLAKO J Primary Care Unavailable ANGELINE AGUILAR Attending Unavailable YADIRA, FLAKO J Primary Care Unavailable Chema, Hemalatha Attending Unavailable YADIRA, FLAKO J Primary Care Unavailable EDITH, GENE A Attending Unavailable EDITH, GENE A Attending Unavailable YADIRA, FLAKO Anusha Primary Care Unavailable YADIRA, FLAKO J Primary Care Unavailable BERNADETTE MILES Referring Unavailable EDITH, GENE Ronit Attending Unavailable YADIRA, FLAKO J Primary Care Unavailable YADIRA, FLAKO J Primary Care Unavailable Chema, Hemalatha Referring Unavailable YADIRA, FLAKO J Primary Care Unavailable Chema, Hemalatha Referring Unavailable YADIRA, FLAKO J Primary Care Unavailable Chema, Hemalatha Attending Unavailable Allergies Allergy Classification Reported Allergen(s) Allergy Type Date of Onset Reaction(s) Facility (20 sources) acetaminophen / HYDROcodone; Translations: [HYDROCODONE-ACET AMINOPHEN] Drug Allergy 7 Anaphylaxis [facility] Repository (20 sources) valsartan; Translations: [VALSARTAN] Drug Allergy 8 Intolerance [facility] Repository (20 sources) Acetaminophen / oxyCODONE; Translations: [OXYCODONE-ACETAM INOPHEN] Drug Allergy [address] [facility] (20 sources) Hibiscus; Translations: [HIBISCUS] Drug Allergy 1 Hives, Shortness of Breath [facility] Medications Current Medications Medication Drug Class(es) Dates Sig (Normalized) Sig (Original) iv contrast (will be provided with radiology test) (5 sources) Start: 02-17-2023 End: 02-18-2023 iv contrast (will be provided with radiology test) CT LIVER W IVCON Inject, intravenously, once for 1 dose. No IV access, insert saline lock prior to the beginning of sedation, infusion, injection of imaging exam. Discontinue saline lock post exam. If Pt. has a central line or IVAD, may access for administration according to line specific nursing protocol. Once exam is complete flush line and de-access according to line specific nursing protocol in the CT contrast administration guidelines link. 1 Each 0 02/17/2023 02/18/2023 Active Completed/Discontinued Medications Medication Drug Class(es) Dates Sig (Normalized) Sig (Original) amLODIPine 5 mg oral tablet (20 sources) Dihydropyridine Calcium Channel David Start: 04-24-2021 End: 12-07-2022 take 1 tablet by mouth once daily amLODIPine (NORVASC) 5 mg tablet Take 1 tablet by mouth once daily. 90 tablet 1 12/07/2022 Active Problems Active Problems Problem Classification Problem Date Documented Date Episodic/Chronic Adjustment disorders (2 sources) Adjustment disorder, unspecified; Translations: [Adjustment disorder with mixed anxiety and depressed mood] Onset: 05-27-2022 Chronic Blindness and vision defects (2 sources) Bilateral myopia of eyes; Translations: [Myopia, bilateral] 01-22-2023 Episodic Cataract (1 source) Bilateral senile combined form cataracts of eyes; Translations: [Combined forms of age-related cataract, bilateral] 01-22-2023 Chronic Coagulation and hemorrhagic disorders (20 sources) Platelet count below reference range; Translations: [Thrombocytopenia, unspecified] Onset: 04-11-2019 04-11-2019 Chronic Conduction disorders (20 sources) H/O: cardiac pacemaker in situ; Translations: [Presence of automatic (implantable) cardiac defibrillator] Onset: 03-09-2017 03-09-2017 Chronic Diabetes mellitus with complications (2 sources) Type 2 diabetes mellitus; Translations: [Type 2 diabetes mellitus with hyperglycemia] Onset: 03-19-2023 09-30-2022 Chronic Diabetes mellitus without complication (20 sources) Type 2 diabetes mellitus without complication; Translations: [Type 2 diabetes mellitus without complications] Onset: 04-21-2018 Chronic Disorders of lipid metabolism (20 sources) Hyperlipidemia; Translations: [Hyperlipidemia, unspecified] Onset: 10-20-2019 10-20-2019 Chronic Esophageal disorders (1 source) Gastroesophageal reflux disease; Translations: [Gastro-esophageal reflux disease without esophagitis] Chronic Essential hypertension (20 sources) Essential hypertension; Translations: [Essential (primary) hypertension] Onset: 08-21-2019 08-21-2019 Chronic Gout and other crystal arthropathies (20 sources) Chronic gout without tophus; Translations: [Chronic gout, unspecified, without tophus (tophi)] Onset: 04-11-2020 04-11-2020 Chronic Hepatitis (20 sources) Autoimmune hepatitis; Translations: [Autoimmune hepatitis] Onset: 12-01-2018 08-21-2019 Chronic Miscellaneous mental health disorders (20 sources) Chronic insomnia; Translations: [Psychophysiologic insomnia] Onset: 12-01-2018 12-01-2018 Chronic Mood disorders (20 sources) Recurrent depression; Translations: [Major depressive disorder, recurrent, unspecified] Onset: 12-26-2019 12-26-2019 Chronic Nonspecific chest pain (7 sources) Chest pain; Translations: [Other chest pain] Onset: 01-25-2023 01-25-2023 Episodic Osteoarthritis (20 sources) Arthritis of shoulder region joint; Translations: [Primary osteoarthritis, unspecified shoulder] Onset: 03-03-2017 03-09-2017 Chronic Other aftercare (3 sources) Antibiotic prophylaxis indicated; Translations: [custodial (current) use of antibiotics] Episodic Other circulatory disease (2 sources) Clearing throat - hawking; Translations: [Other specified symptoms and signs involving the circulatory and respiratory systems] Episodic Other eye disorders (1 source) Drusen of left optic disc; Translations: [Drusen of optic disc, left eye] 01-22-2023 Chronic Other infections; including parasitic (20 sources) Lyme disease; Translations: [Lyme disease, unspecified] 10-11-2020 Episodic Other liver diseases (20 sources) Cirrhosis of liver; Translations: [Unspecified cirrhosis of liver] Onset: 08-04-2018 08-04-2018 Chronic Other liver diseases (1 source) Hepatic sclerosis; Translations: [Hepatic sclerosis] Chronic Other liver diseases (3 sources) Lesion of liver; Translations: [Liver disease, unspecified] Chronic Other liver diseases (1 source) Disease of liver; Translations: [Liver disease, unspecified] Chronic Other liver diseases (2 sources) Liver disease, unspecified; Translations: [Liver lesion] Onset: 09-18-2022 Chronic Other liver diseases (1 source) Hepatic sclerosis; Translations: [Hepatic sclerosis] Onset: 01-29-2023 Chronic Other nervous system disorders (20 sources) Neuropathy; Translations: [Polyneuropathy, unspecified] Onset: 10-11-2020 10-11-2020 Chronic Other screening for suspected conditions (not mental disorders or infectious disease) (1 source) Other specified abnormal findings of blood chemistry; Translations: [Other abnormal blood chemistry] Episodic Other upper respiratory disease (1 source) Singers' nodes; Translations: [Nodules of vocal cords] Episodic Elvira-; endo-; and myocarditis; cardiomyopathy (20 sources) Obstructive hypertrophic cardiomyopathy; Translations: [Hypertrophic obstructive cardiomyopathy] Onset: 05-13-2017 08-21-2019 Chronic Spondylosis; intervertebral disc disorders; other back problems (20 sources) Degeneration of lumbar intervertebral disc; Translations: [Other intervertebral disc degeneration, lumbar region] Onset: 03-09-2017 03-09-2017 Chronic Unclassified (1 source) Unknown / UNK(Unknown) Onset: 05-13-2017 Past or Other Problems Problem Classification Problem Date Documented Da te Episodic/Chronic Abdominal pain (1 source) Epigastric pain; Translations: [Dyspepsia] Onset: 09-18-2022 Episodic Diabetes mellitus without complication (20 sources) Steroid-induced hyperglycemia; Translations: [Hyperglycemia, unspecified] Onset: 12-02-2019 10-11-2020 Episodic Diseases of mouth; excluding dental (3 sources) Bleeding from mouth; Translations: [Other lesions of oral mucosa] Onset: 05-25-2022 Episodic Medical examination/evaluation (1 source) Encounter for preprocedural cardiovascular examination; Translations: [Encounter for preprocedural cardiovascular examination] Onset: 05-13-2017 Episodic Nausea and vomiting (1 source) Nausea; Translations: [Nausea] Onset: 08-13-2022 Episodic Other circulatory disease (1 source) Other specified symptoms and signs involving the circulatory and respiratory systems; Translations: [Throat clearing] Onset: 08-10-2022 Episodic Other connective tissue disease (20 sources) Transient neurological symptoms; Translations: [Unspecified symptoms and signs involving the nervous system] Onset: 04-18-2018 04-18-2018 Episodic Other connective tissue disease (1 source) Pain in right foot; Translations: [Foot pain, right] Onset: 10-14-2022 Episodic Other diseases of veins and lymphatics (20 sources) Vascular insufficiency; Translations: [Venous insufficiency (chronic) (peripheral)] Onset: 04-11-2020 04-11-2020 Episodic Other diseases of veins and lymphatics (1 source) Venous insufficiency (chronic) (peripheral); Translations: [Venous insufficiency] Onset: 04-11-2020 Episodic Other gastrointestinal disorders (1 source) Abdominal distension (gaseous); Translations: [Bloating] Onset: 08-13-2022 Episodic Other infections; including parasitic (20 sources) [place] spotted fever; Translations: [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] Onset: 09-22-2012 12-22-2021 Episodic Other upper respiratory disease (1 source) Nodules of vocal cords; Translations: [Vocal cord nodule] Onset: 08-10-2022 Episodic Phlebitis; thrombophlebitis and thromboembolism (20 sources) Portal vein thrombosis; Translations: [Portal vein thrombosis] Onset: 08-20-2019 08-21-2019 Episodic Spondylosis; intervertebral disc disorders; other back problems (20 sources) Lumbar radiculopathy; Translations: [Radiculopathy, lumbar region] Onset: 09-29-2011 11-24-2019 Episodic Unclassified (1 source) Encounter for preprocedural cardiovascular examination Onset: 05-13-2017 Results Test Name Value Interpretation Reference Range Facil ity Vital Signs Date Time Vital Sign Value Performing Clinician Erik giraldo 03-04-2023 09:45-0500 Body temperature 98.1 [degF] Nurse [facility] Work Phone: [facility] 03-04-2023 09:45-0500 Diastolic blood pressure 79 mm[Hg] Nurse [facility] Work Phone: [facility] 03-04-2023 09:45-0500 Heart rate 55 /min Nurse [facility] Work Phone: [facility] 03-04-2023 09:45-0500 Respiratory rate 18 /min Nurse [facility] Work Phone: [facility] 03-04-2023 09:45-0500 SaO2% (BldA) [Mass fraction] 96 % Nurse [facility] Work Phone: [facility] 03-04-2023 09:45-0500 Systolic blood pressure 137 mm[Hg] Nurse [facility] Work Phone: [facility] 02-08-2023 14:47-0500 Body height 182.9 cm Myra Segundo APRN.ANDROID PLATFORM DEVELOPER Work Phone: [facility] 02-08-2023 14:47-0500 Body temperature 98.71 [degF] Myra Segundo APRN.ANDROID PLATFORM DEVELOPER Work Phone: [facility] 02-08-2023 14:47-0500 Body weight 84.46 kg Myra Sami HOUSEHOLD APPLIANCE REPAIRER.ANDROID PLATFORM DEVELOPER Work Phone: [facility] 02-08-2023 14:47-0500 Diastolic blood pressure 80 mm[Hg] Myra Segundo HOUSEHOLD APPLIANCE REPAIRER.ANDROID PLATFORM DEVELOPER Work Phone: [facility] 02-08-2023 14:47-0500 Heart rate 57 /min Myra Segundo HOUSEHOLD APPLIANCE REPAIRER.ANDROID PLATFORM DEVELOPER Work Phone: [facility] 02-08-2023 14:47-0500 SaO2% (BldA) [Mass fraction] 97 % Myra Segundo HOUSEHOLD APPLIANCE REPAIRER.ANDROID PLATFORM DEVELOPER Work Phone: [facility] 02-08-2023 14:47-0500 Systolic blood pressure 144 mm[Hg] Myra Segundo HOUSEHOLD APPLIANCE REPAIRER.ANDROID PLATFORM DEVELOPER Work Phone: [facility] 09-30-2022 14:01-0400 Body weight 83.92 kg Evelin Reich HOUSEHOLD APPLIANCE REPAIRER.ANDROID PLATFORM DEVELOPER Work Phone: [facility] 09-23-2022 12:39-0400 Body height 182.9 cm Hemalatha Bear MD Work Phone: [facility] 09-23-2022 12:39-0400 Body temperature 98.4 [degF] Hemalatha Bear MD Work Phone: [facility] 09-23-2022 12:39-0400 Body weight 85.28 kg Hemalatha Bear MD Work Phone: [facility] 09-23-2022 12:39-0400 Diastolic blood pressure 80 mm[Hg] Hemalatha Bear MD Work Phone: [facility] 09-23-2022 12:39-0400 Heart rate 60 /min Hemalatha Bear MD Work Phone: [facility] 09-23-2022 12:39-0400 SaO2% (BldA) [Mass fraction] 96 % Hemalatha Bear MD Work Phone: [facility] 09-23-2022 12:39-0400 Systolic blood pressure 133 mm[Hg] Hemalatha Bear MD Work Phone: [facility] 07-13-2022 15:39-0400 Body weight 85.73 kg Bernadette Miles MD Work Phone: [facility] 07-13-2022 15:39-0400 Diastolic blood pressure 90 mm[Hg] Bernadette Miles MD Work Phone: [facility] 07-13-2022 15:39-0400 Heart rate 62 /min Bernadette Miles MD Work Phone: [facility] 07-13-2022 15:39-0400 SaO2% (BldA) [Mass fraction] 98 % Bernadette Miles MD Work Phone: [facility] 07-13-2022 15:39-0400 Systolic blood pressure 140 mm[Hg] Bernadette Miles MD Work Phone: [facility] 04-20-2022 10:01-0500 Body weight 84.82 kg Flako Ornelas MD Work Phone: [facility] 04-20-2022 10:01-0500 Diastolic blood pressure 88 mm[Hg] Flako Ornelas MD Work Phone: [facility] 04-20-2022 10:01-0500 Heart rate 54 /min Flako Ornelas MD Work Phone: [facility] 04-20-2022 10:01-0500 SaO2% (BldA) [Mass fraction] 97 % Flako Ornelas MD Work Phone: [facility] 04-20-2022 10:01-0500 Systolic blood pressure 147 mm[Hg] Flako Ornelas MD Work Phone: [facility] 12-22-2021 15:21-0400 Body height 182.9 cm Flako Ornelas MD Work Phone: [facility] 12-22-2021 15:21-0400 Body weight 84.73 kg Flako Ornelas MD Work Phone: [facility] 12-22-2021 15:21-0400 Diastolic blood pressure 92 mm[Hg] Flako Ornelas MD Work Phone: [facility] 12-22-2021 15:21-0400 Heart rate 53 /min Flako Ornelas MD Work Phone: [facility] 12-22-2021 15:21-0400 SaO2% (BldA) [Mass fraction] 98 % Flako Ornelas MD Work Phone: [facility] 12-22-2021 15:21-0400 Systolic blood pressure 160 mm[Hg] Flako Ornelas MD Work Phone: [facility] 10-20-2021 13:01-0400 Body height 182.9 cm Bernadette Miles MD Work Phone: [facility] 10-20-2021 13:01-0400 Body weight 84.37 kg Bernadette Miles MD Work Phone: [facility] 10-20-2021 13:01-0400 Diastolic blood pressure 80 mm[Hg] Bernadette Miles MD Work Phone: [facility] 10-20-2021 13:01-0400 Heart rate 50 /min Bernadette Miles MD Work Phone: [facility] 10-20-2021 13:01-0400 SaO2% (BldA) [Mass fraction] 97 % Bernadette Miles MD Work Phone: [facility] 10-20-2021 13:01-0400 Systolic blood pressure 126 mm[Hg] Bernadette Miles MD Work Phone: [facility] 10-16-2021 11:07-0400 Body weight 83.01 kg Flako Ornelas MD Work Phone: [facility] 10-16-2021 11:07-0400 Diastolic blood pressure 78 mm[Hg] Flako Ornelas MD Work Phone: [facility] 10-16-2021 11:07-0400 Heart rate 59 /min Flako Ornelas MD Work Phone: [facility] 10-16-2021 11:07-0400 SaO2% (BldA) [Mass fraction] 99 % Flako Ornelas MD Work Phone: [facility] 10-16-2021 11:07-0400 Systolic blood pressure 136 mm[Hg] Flako Ornelas MD Work Phone: [facility] Encounters Encounter Date Encounter Type Care Provider Facility Start: 03-24-2023 ambulatory [facility] Facility :[facility] Start: 03-19-2023 End: 03-20-2023 ambulatory [facility] Facility:[facility] Start: 03-11-2023 End: 03-11-2023 ambulatory [facility] Facility:[facility] Start: 03-04-2023 End: 03-04-2023 ambulatory [facility] Facility:[facility] Start: 03-04-2023 End: 03-04-2023 Nursing evaluation of patient and report Nurse [facility] Work Phone: Clinical Research Procedures Date Procedure Procedure Detail Performing Clinician Start: 03-04-2023 Lipid panel India Barber MD Work Phone: Start: 03-04-2023 Ecg routine ecg w/least 12 lds i&r only [facility] Provider Start: 02-16-2023 Dup-scan artl lovely abdl/pel/scrot&/rpr orgn com Hemalatha Bear MD Work Phone: Start: 02-16-2023 US ABD LIVER VASCULAR Hemalatha Bear MD Work Phone: Start: 12-09-2022 ICD REMOTE CHECK Tarah Chaney MD Work Phone: Start: 09-17-2022 Dup-scan artl lovely abdl/pel/scrot&/rpr orgn com Hemalatha Bear MD Work Phone: Start: 09-17-2022 US ABD LIVER VASCULAR Hemalatha Bear MD Work Phone: Start: 07-28-2022 Echocardiography GENE EDITH Start: 06-10-2022 ICD REMOTE CHECK Tarah Chaney MD Work Phone: Start: 04-07-2022 Dup-scan artl lovely abdl/pel/scrot&/rpr orgn com Hemalatha Bear MD Work Phone: Start: 04-07-2022 US ABD LIVER VASCULAR Hemalatha Bear MD Work Phone: Start: 03-11-2022 ICD REMOTE CHECK Tarah Chaney MD Work Phone: Start: 12-06-2021 ICD REMOTE CHECK Tarah Chaney MD Work Phone: Start: 09-02-2021 ICD REMOTE CHECK Tarah Chaney MD Work Phone: Start: 07-31-2021 Ct abdomen w/contrast material Hemalatha Bear MD Work Phone: Start: 07-21-2021 End: 07-21-2021 Dup-scan artl lovely abdl/pel/scrot&/rpr orgn com Hemalatha Bear MD Work Phone: Start: 07-21-2021 US ABD LIVER VASCULAR Hemalatha Bear MD Work Phone: Start: 04-15-2020 Colonoscopy Caitlin Iniguez Work Phone: Plan of Treatment Date Care Activity Detail Author Start: 04-15-[address] [facility] Start: 04-15-2030 COLORECTAL CANCER SCREENING COLORECTAL CANCER SCREENING [facility] Start: 04-15-2030 Screening for malign ant neoplasm of colon [facility] Start: 09-07-[address] [facility] Start: 03-04-2024 Hepatitis B surface antibody level LDL Cholesterol [facility] Start: 01-16-2024 Annual PCP Team Human Resource Consultant colette Disease Visit Annual PCP Team Chronic Disease Visit [facility] Start: 01-16-2024 BP Controlled (<130/80) BP Controlle d (<130/80) [facility] Start: 01-16-2024 RSV Vaccine (1 - 1-d ose 60+ series) RSV Vaccine (1 - 1-dose 60+ series) [facility] Immunizations Immunization Date Immunization Notes Care Provider Fa cili 01-26-2023 respiratory syncytia l virus (RSV) vaccine, adjuvanted (AREXVY) Caitlin Shahid MD Work Phone: [facility] 01-15-2023 influenza (HD-IIV4) vaccine, age 65+ yr, high dose, quadrivalent, PF (FLUZONE HIGH-DOSE) Caitlin Shahid MD Work Phone: [facility] 10-18-2022 COVID-19 vaccine, ag e 12+ yr, bivalent (PFIZER-BIONTECH) Hemalatha Bear MD Work Phone: [facility] 03-23-2022 COVID-19 booster vaccine, age 12+ yr, bivalent (PFIZER-BIONTECH) Flako Ornelas MD Work Phone: [facility] 01-16-2022 influenza, high-dose , quadrivalent vaccine (FLUZONE HIGH DOSE QUADRIVALENT) Flako Ornelas MD Work Phone: [facility] 01-16-2022 influenza virus vaccine, unspecified formulation Flako Ornelas MD Work Phone: [facility] 11-04-2021 influenza (aIIV4) vaccine, age 65+ yr, quadrivalent, PF (FLUAD QUADRIVALENT) Flako Ornelas MD Work Phone: [facility] 10-22-2021 pneumococcal (PCV20) vaccine, 20 valent (PREVNAR 20) Flako Ornelas MD Work Phone: [facility] 11-18-2020 influenza virus vaccine, unspecified formulation Flako Ornelas MD Work Phone: [facility] 11-08-2020 COVID-19 vaccine, ag e 12+ yr (PFIZER-BIONTECH - PURPLE TOP) Caitlin Shahid MD Work Phone: [facility] 05-17-2020 COVID-19 vaccine, ag e 12+ yr (PFIZER-BIONTECH - PURPLE TOP) Caitlin Shahid MD Work Phone: [facility] 04-26-2020 COVID-19 vaccine, ag e 12+ yr (PFIZER-BIONTECH - PURPLE TOP) Caitlin Shahid MD Work Phone: [facility] 11-27-2019 influenza virus vaccine, unspecified formulation Caitlin Shahid MD Work Phone: [facility] 11-24-2019 influenza, high dose seasonal, preservative-free Caitlin Shahid MD Work Phone: [facility] 08-29-2019 hepatitis B vaccine, adult dosage Caitlin Shahid MD Work Phone: [facility] Work Phone: 04-13-2019 typhoid vaccine, unspecified formulation Caitlin Shahid MD Work Phone: [facility] 03-28-2019 zoster vaccine recombinant Caitlin Shahid MD Work Phone: [facility] 01-19-2019 hepatitis B vaccine, adult dosage Caitlin Shahid MD Work Phone: [facility] Work Phone: 01-18-2019 zoster vaccine recombinant Caitlin Shahid MD Work Phone: [facility] 12-20-2018 Hepatitis B vaccine (recombinant), CpG adjuvanted Caitlin Shahid MD Work Phone: [facility] 11-08-2018 Seasonal trivalent influenza vaccine, adjuvanted, preservative free Caitlin Shahid MD Work Phone: [facility] 12-02-2017 influenza, high dose seasonal, preservative-free Caitlin Shahid MD Work Phone: [facility] 12-14-2016 influenza, high dose seasonal, preservative-free Caitlin Shahid MD Work Phone: [facility] 09-26-2015 pneumococcal conjuga te vaccine, 13 valent Caitlin Shahid MD Work Phone: [facility] 09-26-2015 pneumococcal polysaccharide vaccine, [address] (I-Stat) Work Phone: [facility] 09-07-2014 tetanus toxoid, redu sherron diphtheria toxoid, and acellular pertussis vaccine, adsorbed Caitlin Shahid MD Work Phone: [facility] 09-05-2013 pneumococcal polysaccharide vaccine, 23 valent Caitlin Shahid MD Work Phone: [facility] Payers Date Payer Category Payer Private Health Insurance [facility] AARP SUPPLEMENT [id number] 2017-Present [phone] [address] [place] [address] Indemnity [id number] 2017 Private Health Insurance [facility] AARP SUPPLEMENT [id number] 2017-Present [phone] [address] [place] [address] Indemnity [id number] 2017 Unknown [id number] 2013 Medicare MEDICARE MEDICAR E A AND B [id number] 2013-Present [phone] [place] [address] Medicare [id number] 2013 Medicare MEDICARE MEDICAR E A AND B [id number] 2013-Present [phone] [place] [address] Medicare [id number] 2013 Medicare [id number] Medicare [id number] Social History Date Type Detail Facility Start: 09-05-2019 End: 12-22-2021 Tobacco smoking status NHIS Ex-smoker [facility] End: 07-06-2019 History of tobacco use Current smoker [facility] End: 07-06-2019 History of tobacco use Cigar Smoker [facility] Start: 09-05-2019 End: 12-22-2021 Tobacco use and exposure Smokeless tobacco non-user [facility] Start: 04-16-2021 End: 02-08-2023 Alcohol intake Ex-drinker (finding) [facility] Start: 04-16-2021 End: 08-07-[address] [facility] Start: 04-11-2020 History SDOH Alcohol Frequency 2 [facility] Start: 04-11-2020 History SDOH Alcohol Std Drinks 1 [facility] Start: 04-11-2020 History SDOH Social Connections Phone 5 [facility] Start: 04-11-2020 History SDOH Social Connections Meetings 3 [facility] Start: 04-11-2020 History SDOH Physica l Activity DPW 4 [facility] Start: 04-11-[address] [facility] Start: 07-14-2017 End: 12-22-2021 Tobacco Comment 07/14/17: occasional cigar + [address] [facility] Start: 1950 Sex Assigned At Male C [facility] Start: 04-22-2021 End: 12-22-2021 Exposure to SARS-CoV-2 (event) Not sure [facility] Start: 06-14-2021 End: 07-28-2021 Exposure to SARS-CoV-2 (event) Unable to assess [facility] Start: 04-11-2020 End: 08-07-2022 Social connection and isolation panel [facility] Do you belong to any clubs or organizations such as latter day groups, unions, fraternal or athletic groups, or school groups? Yes [facility] Are you now , , , , never or living with a partner? [facility] How often to you hav e a drink containing alcohol? Monthly or less [facility] How many standard dr inks containing alcohol do you have on a typical day? [address] [facility] How often do you hav e 6 or more drinks on 1 occasion? Never [facility] How hard is it for y ou to pay for the very basics like food, housing, medical care, and heating Not hard at all [facility] Do you feel stress - tense, restless, nervous, or anxious, or unable to sleep at night because your mind is troubled all the time - these days [OSQ] Only a little [facility] (I/We) worried wheth er (my/our) food would run out before (I/we) got money to buy more. Never true [facility] In the past 12 month s, was there a time when you were not able to pay the mortgage or rent on time? No [facility] Start: 08-19-2018 Gender identity Identifies as male gender (finding) [facility] Start: 08-19-2018 Sexual orientation Heterosexual (neil alston) [facility] Medical Equipment Procedure Code Equipment Code Equipment Origin al Text Equipment Identifier D[employer] Pushlock 4.5mm Peek 28mm Suture Self Punch Sterile Disposable - [id number] Start: 06-02-2017 Post Hemicap 12m m Ovoid 32mm Taper Sterile Latex Free Shoulder - [id number] Start: 06-02-2017 Hemicap Resurfac ing System Articular 19mm X 20mm Head Size 52-44mm [id number] Start: 06-02-2017 Component Hemica povo Ovoid Offset Cocr Titanium [id number] Humeral Cannulated - [id number] Start: 06-02-2017 Clinical Notes 07-02-2020 to 03-24-2023 Angeline Roamno RN - 03/04/2023 10:00 AM Himanshu eBrry RT([place]) - 02/16/2023 2:15 PM ESTTelephone Encounter - Nikki López - 02/10/2023 12:38 PM ESTPatient InstructionsPatient Instructions Note Date & Type Note Facility 03-24-2023 Note [facility] 03-11-2023 Note [facility] 03-11-2023 Note [facility] 03-10-2023 Note [facility] 03-04-2023 Note [facility] 03-04-2023 History of Present illness Narrative IRB# [id number] Liver Cirrhosis Network Cohort Study (Protocol version 1 September 03, 2021) PI: Dr. Larkin Research Nurse/Coordinator: Samy Duffy Visit #: Baseline/Visit 1 Subject ID [id number] All Vital Signs will be found in Additional Documentation below Progress Notes in the Encounter CRU to pull tubes for clinical labs (Saliva kit and [place] tube from Trae Team) Time Point Procedures Comments/Signature Nursing Responsibilities Consent completed by Study Team Did pt consent to the collection of Stool samples: Yes Pt must remain NPO for Fibroscan Height: 183.7 cm Weight: 83.7 kg Vital Signs collected Time: 0945 EKG using CRU machine Time: 0957 Urine sample (for CORE lab) obtained (15mL min) Time: 1015 If consented: Stool sample (for CORE lab) obtained Time: 1130 (Check with Lab to see if we need to collect) Saliva sample (for CORE lab) obtained Time: 1011 Blood Draw Time: 1003 Butterfly used in left antecubital area. Blood drawn with vacutainer and syringe as needed and labs drawn per protocol. Butterfly removed after blood draw and site secured with sterile gauze. Patient tolerated procedure well. Clin Path Core Lab ([facility] supply) Check EPIC for lab orders and print labels Pull tubes from [facility] supply based on what is listed on Schedule Request EKG's are uploaded into EMR Signature: Angeline Romano RN Study Team Responsibilities Questionnaires, Plant Inspector Strength, Chair Stands, Balance, Physical Exam, FibroScan (NPO 3hrs) Discharge D/C patient home documented in this encounter [facility] 02-16-2023 Note [facility] 02-16-2023 History of Present illness Narrative Radiology Service Progress Note PATIENT NAME: Mateus Barth DATE OF SERVICE: February 16, 2023 TIME: 2:16 PM PATIENT IDENTITY VERIFICATION COMPLETED USING TWO (2) IDENTIFIERS: Name and Date of confirmed by patient verbally. FALL SCREENING: Has the patient had 2 falls in the last year or 1 fall with injury or currently using an Ambulatory Assistive Device (Walker, Cane, Wheelchair, Crutches, etc.)? No PATIENT GENDER DATA: Male PATIENT RELEVANT IMPLANT DATA REVIEWED: Not Applicable RADIOLOGY DEPARTMENT: Ultrasound PERIPHERAL IV DATA: Not applicable SIGNED BY: RT Olman(R) February 16, 2023 2:16 PM documented in this encounter [facility] 02-10-2023 Miscellaneous Notes Call from pharmacy requesting refill. Requested Prescriptions Pending Prescriptions Disp Refills metoprolol succinate ER (TOPROL XL) 100 mg 180 tablet 3 Sig: Take 1 tablet by mouth two times a day. Patient last seen 11/19/2020 Nikki López documented in this encounter [facility] 02-08-2023 Note [facility] 02-08-2023 Instructions Myra Segundo APRN.ZORAIDA - 02/08/2023 3:19 PM EST Schedule ultrasound Follow up with Endocrinology (Cioce) Follow up in 6 months documented in this encounter [facility] 02-08-2023 History of Present illness Narrative NAME: Mateus Barth CLINIC NO: [id number] REFERRING PHYSICIAN: Self PRESENTING COMPLAINT: follow up on AIH Cirrhosis HPI: Mateus Barth is a 72 year old male is here on follow up for AIH related liver disease. RUSTAM with Dr. Bear 09/23/22. 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 Brief plan - needs annual derm follow-up for FBSE given tacrolimus therapy - encouraged discussion with PCP/endocrinology about DM-2 treatment with rising Hgb A1c and consideration to switch to Jaunvia as it is known to cause delayed gastric empyting - Educated him about marijuana side effects. He is willing to follow up with endocrine and if DM got controlled with no improvement of sx. 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 GV G1 and PHG - on metoprolol, cannot start coreg due to presence of hypertrophic cardiomyopathy per discussion with cardiology HCC screening - requires imaging every 6 months if evidence of advanced fibrosis/cirrhosis + AFP - last imaging 08/2022: no liver lesions - next imaging due 02/2023 Health Maintenance: - Screening Colonoscopy: 03/2020 - 10 years - Hepatitis Vaccination status: immune to HAV, s/p HBV vaccination - Bone density: vitamin D normal, cut back to 5000 units 3-4 times per week instead of daily Interim Events: He has been doing well since last visit No Er visits, hospitalizations, or recent illness. Just returned from [facility] yesterday Continues on tacrolimus and MMF Has not scheduled with dermatology yet but plans to Continues to Needs to follow up with Endocrinology; had been tried to manage T2DM with lifestyle changes Pt currently denies jaundice, confusion/disorientation, ascites, hematemesis, dark/tarry stools, do colored stools, or dark urine. All other systems reviewed and are negative REVIEW OF SYSTEMS GENERAL: No unexplained weight changes or fevers. HEENT: Negative for severe headaches, negative for changes in hearing or vision. NECK: Negative for lumps, masses or pain. RESPIRATORY: Negative for coughing, wheezing or significant dyspnea. CARDIOVASCULAR: Negative for chest pain or heart palpitations. GASTROINTESTINAL: Negative for rectal bleeding or black tarry stools. GENITOURINARY: Negative for dysuria or urinary incontinence. MUSCULOSKELETAL: Negative for unexplained joint pains, dislocations or fractures. NEUROLOGIC: Negative for unexplained weakness or vertigo. SKIN: Negative for new lesions or rashes. ENDOCRINE: Negative for cold or heat intolerance . Current Outpatient Medications Medication Sig Dispense Refill cloNIDine HCl (CATAPRES) 0.1 mg tablet Take 1.5 tablets by mouth two times a day. 270 tablet 1 tacrolimus IR (PROGRAF) 1 mg capsule Take 1 capsule by mouth two times a day. 180 capsule 3 probenecid 500 mg tablet Take 1 tablet by mouth twice daily. 180 tablet 1 amLODIPine (NORVASC) 5 mg tablet Take 1 tablet by mouth once daily. 90 tablet 1 mycophenolate Mofetil (CELLCEPT) 500 mg tablet Take 1 tablet by mouth twice daily 180 tablet 0 Amoxicillin 500 mg tablet 2000 mg by mouth 1-2 hours prior to dental procedures 16 tablet 0 traZODone (DESYREL) 50 mg tablet Take 1 tablet by mouth daily at bedtime. prn 30 tablet 1 ergocalciferol 50,000 unit capsule (VITAMIN D2, DRISDOL) Take 1 capsule by mouth one time a week. 12 capsule 0 metroNIDAZOLE 1 % gel Apply 1 application to affected area once daily. Location: face 60 g 1 triamcinolone acetonide (KENALOG) 0.1 % cream Apply 1 application to affected area twice daily. Apply to affected area. Location: posterior right buttock 45 g 1 OTC NUTRITIONAL SUPPLEMENT Take by mouth as directed. 60 capsule 1 metoprolol succinate ER (TOPROL XL) 100 mg Take 1 tablet by mouth two times a day. 180 tablet 3 Lsakmvne3-Gxqsnl2-Iufqa therm. (VSL#3) 112.5 billion cell cap Take 1 capsule by mouth once daily. [address] (PROTONIX) 40 mg tablet Take 1 tablet by mouth once daily. 30 tablet 2 Current Facility-Administered Medications Medication Dose Route Frequency Provider Last Rate Last Admin perflutren lipid microspheres 1.3 mL in NaCl (PF) 0.9% 10 mL injection (DEFINITY) INTRAVENOUS DIRECTED PRN Bernadette Miles MD sodium chloride 0.9 % (flush) 10 mL (BD POSIFLUSH) 10 mL INTRAVENOUS DIRECTED PRN Bernadette Miles MD perflutren lipid microspheres 1.3 mL in NaCl (PF) 0.9% 10 mL injection (DEFINITY) INTRAVENOUS DIRECTED PRN Bernadette Miles MD sodium chloride 0.9 % (flush) 10 mL (BD POSIFLUSH) 10 mL INTRAVENOUS DIRECTED PRN Bernadette Miles MD ALLERGIES Allergen Reactions Vicodin [Hydrocodon* Anaphylaxis stopped breathing Hibiscus Hives, Shortness of Breath Percocet [Oxycodone* Shortness of Breath Pt states he dosent have a allergy to percocet Valsartan Intolerance Cramps in legs, muscle pain Social History Tobacco Use Smoking status: Former Types: Cigars Quit date: 07/06/2019 Years since quittin.6 Smokeless tobacco: Never Tobacco comments: 07/14/17: occasional cigar + 2 cigarettes per week Vaping Use Vaping Use: Some days Substances: THC, CBD Devices: Disposable Substance Use Topics Alcohol use: Not Currently Alcohol/week: 1.0 standard drink of alcohol Types: 1 Glasses of Wine (5oz) per week Drug use: Yes Types: Marijuana Comment: medical marijuana 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 S/P ICD (internal cardiac defibrillator) procedure 03/09/2017 Sensorineural hearing loss Syncope Trochanteric bursitis of right hip @SHX@ FAMILY HISTORY Problem Relation Age of Onset Cataract Father Heart Father Hypertension Father Cancer Brother lung Heart disease Brother pacemaker. cardiac ablation Alcohol/Drug Brother No Known Problems Son Heart Paternal Uncle suddenly at age 40's, 2 other uncles suddenly PHYSICAL EXAM BP 144/80 Pulse 57 Temp (Src) 98.7 (Temporal) Ht 6' 0 (1.83m) Wt 186 lb 3.2 oz (84.5kg) SpO2 97% BMI 25.25 kg/(m^2). General Appearance: Well appearing, alert, in no acute distress, well-hydrated, well nourished. Eyes: PERRLA, conjunctiva and sclera normal Oropharynx: Lips, tongue, and oral mucosa normal. There is no thrush or oral ulcers. Lungs:breath sounds clear to auscultation bilaterally, no crackles, rhonchi, or wheezes Heart: regular rate and rhythm, no murmurs or gallops. Abdomen: not distended, normal bowel sounds, soft and depressible, no guarding or rebound, no palpable mass, no organomegaly Extremities: no cyanosis or edema Skin: no jaundice, no spider angiomas, no palmar erythema Neuro:alert, oriented x 3, pleasant and in no acute distress Recent Labs: Hemoglobin (g/dL) Date Value 01/29/2023 15.2 12/25/2020 13.8 Hematocrit (%) Date Value 01/29/2023 44.0 12/25/2020 39.6 WBC (k/uL) Date Value 01/29/2023 4.40 12/25/2020 4.92 Glucose (mg/dL) Date Value 01/29/2023 124 12/25/2020 123 Potassium (mmol/L) Date Value 01/29/2023 4.0 12/25/2020 4.1 Sodium (mmol/L) Date Value 01/29/2023 137 12/25/2020 136 Chloride (mmol/L) Date Value 01/29/2023 99 12/25/2020 103 CO2 (mmol/L) Date Value 01/29/2023 27 12/25/2020 25 Creatinine (mg/dL) Date Value 01/29/2023 1.42 12/25/2020 1.13 BUN (mg/dL) Date Value 01/29/2023 27 12/25/2020 22 Anion Gap (mmol/L) Date Value 01/29/2023 11 12/25/2020 8 Calcium (mg/dL) Date Value 12/25/2020 9.0 Calcium, Total (mg/dL) Date Value 01/29/2023 9.1 Albumin (g/dL) Date Value 01/29/2023 4.2 Bilirubin, Total (mg/dL) Date Value 01/29/2023 0.8 Bilirubin, Conjugated (mg/dL) Date Value 10/10/2021 0.2 (H) Alkaline Phosphatase (U/L) Date Value 01/29/2023 206 (H) AST (U/L) Date Value 01/29/2023 43 (H) ALT (U/L) Date Value 01/29/2023 30 Protein, Total (g/dL) Date Value 01/29/2023 7.8 MELD 3.0: 12 at 01/29/2023 7:48 AM MELD-Na: 12 at 01/29/2023 7:48 AM Calculated from: Serum Creatinine: 1.42 mg/dL at 01/29/2023 7:48 AM Serum Sodium: 137 mmol/L at 01/29/2023 7:48 AM Total Bilirubin: 0.8 mg/dL (Using min of 1 mg/dL) at 01/29/2023 7:48 AM Serum Albumin: 4.2 g/dL (Using max of 3.5 g/dL) at 01/29/2023 7:48 AM INR(ratio): 1.2 at 01/29/2023 7:48 AM Age at listing (hypothetical): 72 years Sex: Male at 01/29/2023 7:48 AM Imaging: LVUS 09/17/22 IMPRESSION: PATENT HEPATIC VASCULATURE WITH APPROPRIATELY DIRECTED FLOW. CIRRHOTIC LIVER MORPHOLOGY. STABLE RIGHT LOBE HYPOECHOIC LESION PREVIOUSLY CHARACTERIZED LIKELY CONFLUENT FIBROSIS ON CT 08/01/2019. NO NEW HEPATIC LESION. SPLENOMEGALY. TRACE ASCITES. Assessment IMPRESSION/ PLAN Mateus Barth is a 72 year old male with a history significant for DM-2, HTN, HCM w/ syncope s/p ICD in 2012 who is here on follow up for AIh related cirrhosis c/b EV. Continues touse marijuan daily. Reiterated the importance of following up with endocrinology for better control of DM; continues to agree if Dm is better managed with improvement to sx, he will cut back on Marijuana use AIH related cirrhosis: Bridging fibrosis/chronic inflammation on biopsy. Last Meld 12. Discussed pathology compensated vs decompensated disease. Currently on tacrolimus and MMF EV: Last EGD August with PHG and GV G1. On Metoprolol, no Coreg due to hypertrophic cardiomyopathy (per cardiology) HE: None Ascites: none HCC Screening: Last Imaging LVUS in August, showed no liver lesions. Will continue with longitudinal screening every 6 months. Advised to schedule US for February Follow up in 6 months Myra Segundo APRN.ZORAIDA Segundo APRN.ZORAIDA February 08, 2023 1:56 PM documented in this encounter [facility] 01-27-2023 Note [facility] 01-25-2023 Note [facility] 01-22-2023 Note [facility] 01-22-2023 History of Present illness Narrative 1. Combined forms of age-related cataract of both eyes Mild visual significance Educated patient -will monitor 2. Type 2 diabetes mellitus without retinopathy (HCC) Risk of diabetic changes and vision loss can be minimized by tight control of blood sugar, blood pressure, and cholesterol levels. Educated patient to continue care with primary care doctor and/or leasing agent to maintain optimum levels as they are important to avoid ocular complications. Encouraged patient to call the office immediately with any changes to vision or visual concerns. Advised to not wait until the next scheduled exam. 3. Myopia, bilateral 4. Presbyopia Finalized spec rx- no changes 5. Optic disc drusen, left Educated pt- monitor Follow-up in 1 year for complete eye exam and BAT Angeline Aguilar, OD January 22, 2023 2:53 PM documented in this encounter [facility] 01-20-2023 Note [facility] 01-19-2023 Miscellaneous Notes Call from pharmacy requesting refill. Requested Prescriptions Pending Prescriptions Disp Refills cloNIDine HCl (CATAPRES) 0.1 mg tablet 270 tablet 1 Sig: Take 1.5 tablets by mouth two times a day. Patient last seen 11/19/2020 Estela Board [employer] documented in this encounter [facility] 01-15-2023 Note [facility] 01-13-2023 Note [facility] 12-07-2022 Miscellaneous Notes Patient has been identified by name and date of : Yes Requested Prescriptions Pending Prescriptions Disp Refills amLODIPine (NORVASC) 5 mg tablet 90 tablet 1 Sig: Take 1 tablet by mouth once daily. Refused Prescriptions Disp Refills probenecid 500 mg tablet 180 tablet 1 Sig: Take 1 tablet by mouth twice daily. RX INSTRUCTIONS: Patient aware RX will be sent to pharmacy. No need to notify patient. RUSTAM 10/14/22 Teresa Hernandes LPN documented in this encounter [facility] 12-02-2022 Note [facility] 11-25-2022 Note [facility] 11-16-2022 Note [facility] 11-09-2022 Note [facility] 10-14-2022 Note [facility] 10-14-2022 Note [facility] 10-01-2022 Note [facility] 09-30-2022 Note [facility] 09-30-2022 History of Present illness Narrative NEW CONSULT OFFICE PROGRESS NOTE Reason for Consultation: DM Type 2 Referring Physician: SELF My final recommendations will be communicated back to the requesting physician by way of shared Medical record or letter via US mail. HISTORY OF PRESENT ILLNESS; Mateus Barth is a 72 year old MALE is presenting as a new patient to me regarding DM Type 2. He was initially diagnosed with diabetes in 05/2018. 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 Brief plan - needs annual derm follow-up for FBSE given tacrolimus therapy - encouraged discussion with PCP/endocrinology about DM-2 treatment with rising Hgb A1c and consideration to switch to Jaunvia as it is known to cause delayed gastric empyting - Educated him about marijuana side effects. He is willing to follow up with endocrine and if DM got controlled with no improvement of sx. Then he would try stopping marijuana The patient has no known microvascular complications of diabetes. Mateus has no know macrovascular complications of diabetes.. DM Education Yes: Knows how to carb count Yes DIETARY HISTORY: Breakfast: egg, toast, banana and yogurt drinks water OR will have cereal/milk and water to drink Lunch PB/Jelly sandwich OR will have chicken routisserie OR deli meat sandwich and water Dinner fish with starch/veggie OR chicken OR steak very little eating out, but if does will have pasta/fish Snacks frosted mini wheats - occ will have cream filled donuts Drinks water, carbonated flavored water Exercise: aerobics/weight training/stretching CURRENT DM MEDS JANUVIA 25 mg 1 tab daily SMBG Type of Monitor: Other Frequency of Monitoring: intermittent times a day BG Values: Breakfast: Lunch: Dinner: Bed-time: Values over past week: Highest ; Lowest Hypoglycemia: no Diet: as per above Exercise: active, ADLs walking DM REVIEW OF SYSTEMS Last Eye Exam : discontinued patient preference Last Podiatry Exam: discontinued patient preference Cardiorespiratory: negative, denies chest pain, pressure Claudication: no Dyslipidemia: No High Blood Pressure: Yes, controlled on medication CURRENT LABS Component Latest Ref Rng & Units 04/09/2022 09/18/2022 Glucose 74 - 99 mg/dL 175 (H) BUN 9 - 24 mg/dL 29 (H) Creatinine 0.73 - 1.22 mg/dL 1.31 (H) Sodium 136 - 144 mmol/L 135 (L) Potassium 3.7 - 5.1 mmol/L 4.0 Chloride 97 - 105 mmol/L 100 CO2 22 - 30 mmol/L 27 Anion Gap 9 - 18 mmol/L 8 (L) eGFR >=60 mL/min/1.73m 57 (L) Hemoglobin A1C 4.3 - 5.6 % 8.1 (H) 8.7 (H) Estimated Average Glucose mg/dL 186 203 Vitamin D 25 Hydroxy 31.0 - 80.0 ng/mL 46.3 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 S/P ICD (internal cardiac defibrillator) procedure 03/09/2017 Sensorineural hearing loss Syncope Trochanteric bursitis of right hip PAST SURGICAL HISTORY Procedure Laterality Date COLONOSCOPY FLX DX W/COLLJ SPEC WHEN PFRMD 2009 [place] of [place] COLONOSCOPY GEN ANES 04/15/2020 HERNIA REPAIR HX 01/2016 Double PACEMAKER PAST SURGICAL HISTORY OF Left 02/2015 orthoscopic left shoulder PAST SURGICAL HISTORY OF Right 2000 surgery in 1999---orthoscopic in 1992 PAST SURGICAL HISTORY OF 02/2014 Back surgery PAST SURGICAL HISTORY OF Hemilaminectomy with disc removal one lumbar interspace PAST SURGICAL HISTORY OF knee arthroscopy FAMILY HISTORY Problem Relation Age of Onset Heart Father Hypertension Father Heart Paternal Uncle suddenly at age 40's, 2 other uncles suddenly Cancer Brother lung Heart disease Brother pacemaker. cardiac ablation Alcohol/Drug Brother No Known Problems Son Social History Tobacco Use Smoking status: Former Types: Cigars Quit date: 07/06/2019 Years since quittin.2 Smokeless tobacco: Never Tobacco comments: 07/14/17: occasional cigar + 2 cigarettes per week Vaping Use Vaping Use: Some days Substances: THC, CBD Devices: Disposable Substance Use Topics Alcohol use: Not Currently Alcohol/week: 2.5 standard drinks of alcohol Types: 1 Glasses of Wine (5oz) per week Drug use: Yes Types: Marijuana Comment: medical marijuana Current Outpatient Medications Medication Sig Amoxicillin 500 mg tablet 2000 mg by mouth 1-2 hours prior to dental procedures mycophenolate Mofetil (CELLCEPT) 500 mg tablet Take 1 tablet by mouth twice daily. metoprolol succinate ER (TOPROL XL) 100 mg TAKE 1 TABLET BY MOUTH TWICE A DAY cloNIDine HCl (CATAPRES) 0.1 mg tablet TAKE 1 AND 1/2 TABLETS BY MOUTH TWICE DAILY Lioakawj6-Fpvqcf6-Zjlvz therm. (VSL#3) 112.5 billion cell cap Take 1 capsule by mouth once daily. traZODone (DESYREL) 50 mg tablet Take 1 tablet by mouth daily at bedtime. prn pantoprazole DR (PROTONIX) 40 mg tablet Take 1 tablet by mouth once daily. amLODIPine (NORVASC) 5 mg tablet Take 1 tablet by mouth once daily. probenecid 500 mg tablet Take 1 tablet by mouth twice daily. tacrolimus IR (PROGRAF) 1 mg capsule Take 1 capsule by mouth twice daily. SITagliptin phosphate (JANUVIA) 25 mg tablet Take 1 tablet by mouth once daily. ergocalciferol 50,000 unit capsule (VITAMIN D2, DRISDOL) Take 1 capsule by mouth one time a week. Cholecalciferol, Vitamin D3, 25 mcg (1,000 unit) cap Take 1 capsule by mouth once daily. metroNIDAZOLE 1 % gel Apply 1 application to affected area once daily. Location: face triamcinolone acetonide (KENALOG) 0.1 % cream Apply 1 application to affected area twice daily. Apply to affected area. Location: posterior right buttock OTC NUTRITIONAL SUPPLEMENT Take by mouth as directed. Current Facility-Administered Medications Medication Dose Route Frequency perflutren lipid microspheres 1.3 mL in NaCl (PF) 0.9% 10 mL injection (DEFINITY) INTRAVENOUS DIRECTED PRN sodium chloride 0.9 % (flush) 10 mL (BD POSIFLUSH) 10 mL INTRAVENOUS DIRECTED PRN perflutren lipid microspheres 1.3 mL in NaCl (PF) 0.9% 10 mL injection (DEFINITY) INTRAVENOUS DIRECTED PRN sodium chloride 0.9 % (flush) 10 mL (BD POSIFLUSH) 10 mL INTRAVENOUS DIRECTED PRN ALLERGIES Allergen Reactions Vicodin [Hydrocodon* Anaphylaxis stopped breathing Hibiscus Hives, Shortness of Breath Percocet [Oxycodone* Shortness of Breath Pt states he dosent have a allergy to percocet Valsartan Intolerance Cramps in legs, muscle pain REVIEW OF SYSTEMS - POSITIVES IN BOLD GENERAL:No weight loss, malaise or fevers HEENT:Negative for frequent or significant headaches, No changes in hearing or vision, no nose bleeds or other nasal problems NECK:Negative for lumps, goiter, pain and significant neck swelling RESPIRATORY: Negative for cough, hemoptysis, wheezing, COPD, dyspnea or shortness of breath CARDIOVASCULAR: Negative for chest pain, leg swelling, hypertension, CHF or palpitations PHYSICAL EXAMINATION: BP (P) 138/86 (BP Site: Left Arm, BP Position: Sitting, BP Cuff Size: Regular Adult) Pulse (P) 60 Wt 83.9 kg (185 lb) BMI 25.09 kg/m General appearance: Well appearing, alert, in no acute distress, well-hydrated, well nourished. Skin: Skin color, texture, turgor normal, no suspicious rashes or lesions Head: Normocephalic, no masses, lesions, tenderness or abnormalities Eyes: GHANSHYAM Neck: thyroid symmetric to inspection Acanthosis: none noted Extremities: Edema: none Neuro: Negative., Oriented X 3 ASSESSMENT: (E11.65) Poorly controlled type 2 diabetes mellitus (HCC) (primary encounter diagnosis) Comment: Patient having some side effects from Januvia 25 mg. Would like to stop this medication. discussed with co existing autoimmune liver issues, safest, healthiest blood sugar control would be related to stopping his current sweets intake. (Pt will have 1-2 very large cream filled pastries daily, 5 days week minimally) He did have a period of time where he was very well controlled (prior to donuts) with his current meal plan. Overall meal plan very healthy. Recommend increase fluids, 1/2 body weight in oz of water daily will reduce craving for sweets STOP cream filled desserts, recheck his A1C in 3 months. If A1C controlled w diet/exercise only can continue, if repeat A1C is not controlled - recommend start basal insulin, 1 injection daily. Patient is agreeable with this plan. REPEAT A1C Oct 1 or after. Recommended diet: Low carbohydrate and Low saturated fat, low simple sugar, high fiber diet Exercise minimally 150 minutes per week, increase as tolerated. Adequate hydration - 1/2 body wgt in oz of water daily, unless fluid restriction applies. I instructed the patient to monitor blood sugars 4 times per day If blood sugars are persistently high or low, to call our office. Patient to continue to follow up with his PCP and with other consultants regarding his other medical problems. Plan: COMP METABOLIC PANEL, LIPID PANEL, NONFASTING, ALBUMIN/CREAT RATIO RND UR, HGB A1C Evelin Reich CNP documented in this encounter [facility] 09-24-2022 Note [facility] 09-24-2022 Miscellaneous Notes Patient denies any missed medication changes or dietary changes. Patient declines checking BS at home states no availability to check. Patient saw [facility]STRO. doctor 09/23/22 who placed referral for ENDO. Patient will be scheduling to establish with endocrinology in regards to DM management. Lorna Watkins MA Left message for patient to return call. Martha Kaplan Ma Sugars are up from what they had been. Has he missed any med doses? Any dietary changes? Is he checking sugars at home. If so, how have they been? documented in this encounter [facility] 09-23-2022 Note [facility] 09-23-2022 History of Present illness Narrative [facility] 09/23/2022 Mateus Barth 72 year old male Referring physician or PCP: SELF Flako Ornelas MD Referred by * to the [facility] for opinion regarding * . My final recommendations will be communicated by way of shared Medical Record for internal providers or letter via the [employer] [facility] for external providers. Last clinic visit with Dr Bear 04/13/2022 In conclusion, Mateus Barth is a 72 year old male with PMH autoimmune hepatitis with bridging fibrosis and chronic inflammation on recent biopsy currently being treated with tacrolimus and MMF, DM-2, HTN, HCM w/ syncope s/p ICD in 2012 who presents for follow-up. 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 MELD-Na: 12 from 03/2022 - continue tacrolimus 1 mg q12h and MMF 500 mg PO BID for autoimmune hepatitis that has been refractory to first and second line therapies; was on ursodiol for quite some time but has GI side effects that resolved with withdrawal of the med Ascites- none - re-educated on importance of adherence to low sodium diet (2000 mg sodium per day or less) Hepatic encephalopathy - none Varices - esophageal - history of bleeding - none - date of last EGD - 01/2021 - next EGD due - 01/2023 - on metoprolol, cannot start coreg due to presence of hypertrophic cardiomyopathy per discussion with cardiology HCC screening - requires imaging every 6 months if evidence of advanced fibrosis/cirrhosis + AFP - last imaging 03/2022 - next imaging due 09/2022 Health Maintenance: - Screening Colonoscopy: 03/2020 - 10 years - Hepatitis Vaccination status: immune to HAV, s/p HBV vaccination - Bone density: vitamin D normal, cut back to 5000 units 3-4 times per week instead of daily SUBJECTIVE: - Feeling better overall - Still get post prandial symptoms and nasuea - continue tacrolimus 1 mg q12h and MMF 500 mg PO BID. Tolerating well - LFT stable. - smokes marijuana - DM poorly controlled - on Januvia Labs: Hemoglobin A1C (%) Date Value 09/18/2022 8.7 04/09/2022 8.1 10/18/2020 6.7 07/05/2020 6.3 CMP: Glucose 175 09/18/2022 BUN 29 09/18/2022 Creatinine 1.31 09/18/2022 Sodium 135 09/18/2022 Potassium 4.0 09/18/2022 Chloride 100 09/18/2022 CO2 27 09/18/2022 Protein, Total 7.6 09/18/2022 Albumin 4.0 09/18/2022 Calcium 8.9 09/18/2022 Alkaline Phosphatase 203 09/18/2022 Bilirubin, Total 0.6 09/18/2022 AST 51 09/18/2022 ALT 43 09/18/2022 MELD-Na: 11 at 09/18/2022 9:03 AM MELD: 11 at 09/18/2022 9:03 AM Calculated from: Serum Creatinine: 1.31 mg/dL at 09/18/2022 9:03 AM Serum Sodium: 135 mmol/L at 09/18/2022 9:03 AM Total Bilirubin: 0.6 mg/dL (Using min of 1 mg/dL) at 09/18/2022 9:03 AM INR(ratio): 1.2 at 09/18/2022 9:03 AM Component Latest Ref Rng & Units 11/10/2021 04/09/2022 09/18/2022 AFP <11.0 ng/mL 5.5 4.5 5.6 Component Latest Ref Rng & Units 07/18/2018 08/22/2018 11/10/2021 04/09/2022 09/18/2022 Hep B Core Ab, Total Negative Negative Hep C Antibody IA Negative Negative Hep B Surface Ag Negative Negative Hep B Surface Ab, Qual Negative Negative [place] by EIA, Qual Negative Negative [place] by EIA OD Ratio 0.4 Mitochondrial Ab Panel Negative Negative Smooth Muscle Ab Panel Negative Positive (A) Hep A Ab, Total Negative Positive (A) IgG 700 - 1,600 mg/dL 1,928 (H) 1,999 (H) 1,901 (H) Review Of Systems A 14 point ROS is negative except as outlined above. 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 S/P ICD (internal cardiac defibrillator) procedure 03/09/2017 Sensorineural hearing loss Syncope Trochanteric bursitis of right hip PAST SURGICAL HISTORY Procedure Laterality Date COLONOSCOPY FLX DX W/COLLJ SPEC WHEN PFRMD 2009 [place] of [place] COLONOSCOPY GEN ANES 04/15/2020 HERNIA REPAIR HX 01/2016 Double PACEMAKER PAST SURGICAL HISTORY OF Left 02/2015 orthoscopic left shoulder PAST SURGICAL HISTORY OF Right 2000 surgery in 1999---orthoscopic in 1992 PAST SURGICAL HISTORY OF 02/2014 Back surgery PAST SURGICAL HISTORY OF Hemilaminectomy with disc removal one lumbar interspace PAST SURGICAL HISTORY OF knee arthroscopy Social History Tobacco Use Smoking status: Former Types: Cigars Quit date: 07/06/2019 Years since quittin.2 Smokeless tobacco: Never Tobacco comments: 07/14/17: occasional cigar + 2 cigarettes per week Vaping Use Vaping Use: Some days Substances: THC, CBD Devices: Disposable Substance Use Topics Alcohol use: Not Currently Alcohol/week: 2.5 standard drinks Types: 1 Glasses of Wine (5oz) per week Drug use: Yes Types: Marijuana Comment: medical marijuana Amoxicillin 500 mg tablet^2000 mg by mouth 1-2 hours prior to dental procedures^Disp: 16 tablet^Rfl: 0 mycophenolate Mofetil (CELLCEPT) 500 mg tablet^Take 1 tablet by mouth twice daily.^Disp: 180 tablet^Rfl: 0 metoprolol succinate ER (TOPROL XL) 100 mg^TAKE 1 TABLET BY MOUTH TWICE A DAY^Disp: 180 tablet^Rfl: 3 cloNIDine HCl (CATAPRES) 0.1 mg tablet^TAKE 1 AND 1/2 TABLETS BY MOUTH TWICE DAILY^Disp: 270 tablet^Rfl: 3 traZODone (DESYREL) 50 mg tablet^Take 1 tablet by mouth daily at bedtime. prn^Disp: 30 tablet^Rfl: 1 amLODIPine (NORVASC) 5 mg tablet^Take 1 tablet by mouth once daily.^Disp: 90 tablet^Rfl: 1 probenecid 500 mg tablet^Take 1 tablet by mouth twice daily.^Disp: 180 tablet^Rfl: 1 SITagliptin phosphate (JANUVIA) 25 mg tablet^Take 1 tablet by mouth once daily.^Disp: 30 tablet^Rfl: 11 ergocalciferol 50,000 unit capsule (VITAMIN D2, DRISDOL)^Take 1 capsule by mouth one time a week.^Disp: 12 capsule^Rfl: 0 metroNIDAZOLE 1 % gel^Apply 1 application to affected area once daily. Location: face^Disp: 60 g^Rfl: 1 triamcinolone acetonide (KENALOG) 0.1 % cream^Apply 1 application to affected area twice daily. Apply to affected area. Location: posterior right buttock^Disp: 45 g^Rfl: 1 OTC NUTRITIONAL SUPPLEMENT^Take by mouth as directed.^Disp: 60 capsule^Rfl: 1 Aehdytvt4-Ujwdzy8-Vkitg therm. (VSL#3) 112.5 billion cell cap^Take 1 capsule by mouth once daily.^Disp: 90 capsule^Rfl: [address] (PROTONIX) 40 mg tablet^Take 1 tablet by mouth once daily.^Disp: 30 tablet^Rfl: 2 tacrolimus IR (PROGRAF) 1 mg capsule^Take 1 capsule by mouth twice daily.^Disp: 180 capsule^Rfl: 1 Cholecalciferol, Vitamin D3, 25 mcg (1,000 unit) cap^Take 1 capsule by mouth once daily.^Disp: ^Rfl: ALLERGIES Allergen Reactions Vicodin [Hydrocodon* Anaphylaxis stopped breathing Hibiscus Hives, Shortness of Breath Percocet [Oxycodone* Shortness of Breath Pt states he dosent have a allergy to percocet Valsartan Intolerance Cramps in legs, muscle pain OBJECTIVE: BP 133/80 Pulse 60 Temp 36.9 C (98.4 F) (Temporal) Ht 182.9 cm (6') Wt 85.3 kg (188 lb) SpO2 96% BMI 25.50 kg/m BMI 25.50 kg/(m^2) Gen: Well appearing, seated upright in no discomfort, AAOX3 HEENT: PERRLA, eOMI, No icterus, no pallor, no oral lesions Neck: No thyromegaly, palpable lymphadenopahty, JVD CVS: S1S2+, NSR, No m/r/g RS: Non labored respiration, b/l air entry equal, no added BS Abdo: soft, non distended, non tender,no palpable hepatosplenomegaly, BS normoactive Neuro: b/l cranial nerves II-XII grossly intact, non focal Musc: No joint swelling, tenderness Extrem:warm ,well perfused, no pedal edema Integ: Warm, intact, anicteric ASSESSMENT In conclusion, Mateus Barth is a 72 year old male with PMH autoimmune hepatitis with bridging fibrosis and chronic inflammation on recent biopsy currently being treated with tacrolimus and MMF, DM-2, HTN, HCM w/ syncope s/p ICD in 2012 who presents for follow-up. Brief plan - needs annual derm follow-up for FBSE given tacrolimus therapy - encouraged discussion with PCP/endocrinology about DM-2 treatment with rising Hgb A1c and consideration to switch to Jaunvia as it is known to cause delayed gastric empyting - Educated him about marijuana side effects. He is willing to follow up with endocrine and if DM got controlled with no improvement of sx. 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 GV G1 and PHG - on metoprolol, cannot start coreg due to presence of hypertrophic cardiomyopathy per discussion with cardiology HCC screening - requires imaging every 6 months if evidence of advanced fibrosis/cirrhosis + AFP - last imaging 08/2022: no liver lesions - next imaging due 02/2023 Health Maintenance: - Screening Colonoscopy: 03/2020 - 10 years - Hepatitis Vaccination status: immune to HAV, s/p HBV vaccination - Bone density: vitamin D normal, cut back to 5000 units 3-4 times per week instead of daily This note was jointly formulated with Dr. Quyen Porras MD September 23, 2022 12:56 PM I spent a total of 40 minutes on the date of the service which included preparing to see the patient, [id number] patient care, completing clinical documentation, obtaining and/or reviewing separately obtained history, performing a medically appropriate examination, counseling and educating the patient/family/caregiver, ordering medications, tests, or procedures, communicating with other HCPs (not separately reported), independently interpreting results (not separately reported), communicating results to the patient/family/caregiver, and care coordination (not separately reported). Hemalatha Bear MD Jockey Valet, Department of Medicine [facility] documented in this encounter [facility] 09-16-2022 Note [facility] 09-02-2022 Note [facility] 08-28-2022 Note [facility] 08-13-2022 Note [facility] 08-12-2022 Note [facility] 08-10-2022 Note [facility] 08-07-2022 Note [facility] 07-13-2022 Note [facility] 07-13-2022 Instructions Bernadette Miles MD - 07/13/2022 3:57 PM EDT We are scheduling you for an echocardiogram Follow up in three months documented in this encounter [facility] 07-13-2022 History of Present illness Narrative Images from the original note were not included. [facility] Cardiology ([address]) [address] [facility] [id number] OUTPATIENT VISIT DATE 07/13/2022 PRIMARY CARE PHYSICIAN: Flako Ornelas [address] [place] [address] HISTORY OF PRESENT ILLNESS: Mr. Barth is a 72 year old gentleman with a history of hypertrophic cardiomyopathy with ICD implantation in 2012, angiographically normal coronary arteries on prior catheterization 2012, hypertension, and autoimmune hepatitis who presents for follow-up. He reports that he has shortness of breath on exertion which is unchanged from prior. He has not had symptoms concerning for CHF including PND, orthopnea, or lower extremity edema. He describes occasional sharp stabbing chest pains that occur intermittently and are nondisabling related to exertion. There seems to be no exacerbating relieving factors. He has not had symptoms of palpitation, heart racing, or ICD discharges. PAST CARDIAC HISTORY: He underwent ICD placement in 2012 after a syncopal episode. LHC 06/02/12: EF 75%, LM, Circumflex and RCA normal, mild LAD myocardial bridging. Past medical history significant for autoimmune hepatitis. WAs on prednisone and Imuran but he did not tolerate treatment because of hyperglycemia induced by steroid. He is currently on CellCept and tacrolimus and has been doing well. He has no ascites or history of encephalopathy or SBP. EGD last year showed grade 1 varices at the GE junction Liver biopsy from 08/20/2019 showing portal HTN with HVPG 7; biopsy showing at least bridging fibrosis with concern for sampling error in setting of multiple imaging studies showing cirrhotic liver morphology. CT scan 08/2020: Cirrhosis and portal hypertension with trace ascites. Past medical history also significant for hypertension, venous insufficiency, small fiber neuropathy. 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 S/P ICD (internal cardiac defibrillator) procedure 03/09/2017 Sensorineural hearing loss Syncope Trochanteric bursitis of right hip PAST SURGICAL HISTORY Procedure Laterality Date COLONOSCOPY FLX DX W/COLLJ SPEC WHEN PFRMD 2009 [place] of [place] COLONOSCOPY GEN ANES 04/15/2020 HERNIA REPAIR HX 01/2016 Double PACEMAKER PAST SURGICAL HISTORY OF Left 02/2015 orthoscopic left shoulder PAST SURGICAL HISTORY OF Right 2000 surgery in 1999---orthoscopic in 1992 PAST SURGICAL HISTORY OF 02/2014 Back surgery PAST SURGICAL HISTORY OF Hemilaminectomy with disc removal one lumbar interspace PAST SURGICAL HISTORY OF knee arthroscopy SOCIAL HISTORY Social History Tobacco Use Smoking status: Former Types: Cigars Quit date: 07/06/2019 Years since quittin.0 Smokeless tobacco: Never Tobacco comments: 07/14/17: occasional cigar + 2 cigarettes per week Vaping Use Vaping Use: Never used Substance Use Topics Alcohol use: Not Currently Alcohol/week: 2.5 standard drinks Types: 1 Glasses of Wine (5oz) per week Drug use: Yes Types: Marijuana Comment: medical marijuana FAMILY HISTORY Problem Relation Age of Onset Heart Father Hypertension Father Heart Paternal Uncle suddenly at age 40's, 2 other uncles suddenly Cancer Brother lung Heart disease Brother pacemaker. cardiac ablation Alcohol/Drug Brother No Known Problems Son ALLERGIES: ALLERGIES Allergen Reactions Vicodin [Hydrocodon* Anaphylaxis stopped breathing Hibiscus Hives, Shortness of Breath Percocet [Oxycodone* Shortness of Breath Pt states he dosent have a allergy to percocet Valsartan Intolerance Cramps in legs, muscle pain MEDICATIONS: metoprolol succinate ER (TOPROL XL) 100 mg^TAKE 1 TABLET BY MOUTH TWICE A DAY^Disp: 180 tablet^Rfl: 3 cloNIDine HCl (CATAPRES) 0.1 mg tablet^TAKE 1 AND 1/2 TABLETS BY MOUTH TWICE DAILY^Disp: 270 tablet^Rfl: 3 Encnepyd7-Tqzbhb0-Skfai therm. (VSL#3) 112.5 billion cell cap^Take 1 capsule by mouth once daily.^Disp: 90 capsule^Rfl: 1 traZODone (DESYREL) 50 mg tablet^Take 1 tablet by mouth daily at bedtime. prn^Disp: 30 tablet^Rfl: [address] (PROTONIX) 40 mg tablet^Take 1 tablet by mouth once daily.^Disp: 30 tablet^Rfl: 2 amLODIPine (NORVASC) 5 mg tablet^Take 1 tablet by mouth once daily.^Disp: 90 tablet^Rfl: 1 probenecid 500 mg tablet^Take 1 tablet by mouth twice daily.^Disp: 180 tablet^Rfl: 1 tacrolimus IR (PROGRAF) 1 mg capsule^Take 1 capsule by mouth twice daily.^Disp: 180 capsule^Rfl: 1 SITagliptin phosphate (JANUVIA) 25 mg tablet^Take 1 tablet by mouth once daily.^Disp: 30 tablet^Rfl: 11 mycophenolate Mofetil (CELLCEPT) 500 mg tablet^Take 1 tablet by mouth twice daily^Disp: 180 tablet^Rfl: 0 Amoxicillin 500 mg tablet^2000 mg by mouth 1-2 hours prior to dental procedures^Disp: 16 tablet^Rfl: 0 ergocalciferol 50,000 unit capsule (VITAMIN D2, DRISDOL)^Take 1 capsule by mouth one time a week.^Disp: 12 capsule^Rfl: 0 Cholecalciferol, Vitamin D3, 25 mcg (1,000 unit) cap^Take 1 capsule by mouth once daily.^Disp: ^Rfl: metroNIDAZOLE 1 % gel^Apply 1 application to affected area once daily. Location: face^Disp: 60 g^Rfl: 1 triamcinolone acetonide (KENALOG) 0.1 % cream^Apply 1 application to affected area twice daily. Apply to affected area. Location: posterior right buttock^Disp: 45 g^Rfl: 1 OTC NUTRITIONAL SUPPLEMENT^Take by mouth as directed.^Disp: 60 capsule^Rfl: 1 REVIEW OF SYSTEMS: Review of Systems Constitutional: Negative for chills, fever, malaise/fatigue and weight loss. HENT: Negative for hearing loss and sore throat. Eyes: Negative for blurred vision and double vision. Respiratory: Negative. Cardiovascular: Positive for chest pain. Gastrointestinal: Positive for diarrhea. Genitourinary: Negative for dysuria, frequency, hematuria and urgency. Musculoskeletal: Negative. Skin: Negative. Neurological: Negative for dizziness, seizures, loss of consciousness, weakness and headaches. Endo/Heme/Allergies: Negative for environmental allergies. Does not bruise/bleed easily. Psychiatric/Behavioral: Negative for depression. PHYSICAL EXAMINATION: BP 140/90 Pulse 62 Wt 189 lb (85.7kg) SpO2 98% General: Pleasant gentleman sitting appears comfortable no apparent distress. He is alert and oriented x 3 HEENT: Carotid upstrokes are brisk bilaterally without bruits no JVD appreciated. Pulmonary: Lungs are clear no rales, wheezes, rhonchi Cardiovascular: Normal S1, S2 with regular rate and rhythm. 2/6 late peaking crescendo decrescendo murmur right upper sternal border Extremities: Warm, well-perfused, no lower extremity edema. CARDIOVASCULAR MEDICINE TESTING: Regadenoson Myoview Stress 12/16/2020: CONCLUSIONS: 1. SPECT Perfusion Study: Normal. 2. There is no scintigraphic evidence for inducible ischemia. 3. No evidence of scarred myocardium. 4. Left ventricle is normal in size. The left ventricle systolic function is normal. 5. Right ventricle is normal in size. The right ventricle systolic function is normal. 6. This is a low risk scan. Gated Stress FBP Gated Rest FBP LVEF % 61 60 Echocardiogram 11/19/2020: - The left ventricle is normal in size. There is severe septal asymmetric left ventricular hypertrophy. Left ventricular systolic function is normal. EF = 68 5% (2D biplane) Definity contrast used for endocardial border detection. Possible apical hypertrophy. - The right ventricle is normal in size. Right ventricular systolic function is normal. - The left atrial cavity is severely dilated. - The right atrial cavity is dilated. -At rest, HR 51 bpm, Trivial-1 MR , LVOT gradient 7.9mmHg , mild chordal PATRICIA. -With Valsalva, HR 51 bpm, 1-2 MR, LVOT gradient 10.2mHg, mild chordal PATRICIA. -With Amyl, HR of 59 bpm, 1-2 MR, LVOT gradient of 24mmHg and worsening PATRICIA with septal contact. - Exam was compared with the prior CC echocardiographic exam performed on 09/05/2019. Gradients are lower. DUAL CHAMBER ICD REMOTE EVALUATION 06/10/2022: PRESENTING EGM: /VS, Sinus Bradycardia. BATTERY STATUS: Estimated time remaining to KIMBER is 3.5 years. COUNTERS SINCE: 03/11/22 ATRIAL ARRHYTHMIAS: There have been no new triggered episodes of atrial high rates. VENTRICULAR ARRHYTHMIAS: There has been 1 new ventricular detection. EGM shows a brief burst of SVT with 1:1 AV conduction. LEAD MEASUREMENTS: Sensing is appropriate. Review of the lead impedance trends are normal. OTHER DIAGNOSTICS: RV pacing 0%. I have personally reviewed the Laboratory Testing and Echocardiogram. IMPRESSION: Mr. Barth is a 72 year old gentleman with a history of hypertrophic cardiomyopathy and prior ICD implantation in 2012. He had undergone cardiac catheterization before his ICD implantation which demonstrated no significant coronary disease and possible mild LAD bridge. He is also treated for hypertension. He has a history of autoimmune hepatitis and is currently on therapy. He presents the office for routine follow-up PLAN AND RECOMMENDATIONS: 1. Hypertrophic obstructive cardiomyopathy (HOCM) (HCC) - ICD9: 425.11, ICD10: I42.1 (primary diagnosis) Patient doing well with shortness of breath on exertion which could be multifactorial. Plan to repeat echocardiogram prior to next office visit. - ECG COMPLETE - ECHO - PERFLUTREN LIPID MICROSPHERES 1.1 MG/ML INJECTION IN NS 10 ML - SODIUM CHLORIDE 0.9 % (FLUSH) INJECTION SYRINGE 2. S/P ICD (internal cardiac defibrillator) procedure - ICD9: V45.02, ICD10: Z95.810 3. Hyperlipidemia LDL goal <100 - ICD9: 272.4, ICD10: E78.5 4. Venous insufficiency - ICD9: 459.81, ICD10: I87.2 5. Primary hypertension - ICD9: 401.9, ICD10: I10 Markedly elevated during the office visit today. I have asked him to be a list of his blood pressure readings at home for review at next office visit. We discussed nonpharmacological means for blood pressure management Bernadette Miles MD documented in this encounter [facility] 07-01-2022 Note [facility] 06-25-2022 Miscellaneous Notes Call from pharmacy requesting refill. Requested Prescriptions Pending Prescriptions Disp Refills metoprolol succinate ER (TOPROL XL) 100 mg [Pharmacy Med Name: METOPROLOL SUCC ER 100 MG TAB] 180 tablet 3 Sig: TAKE 1 TABLET BY MOUTH TWICE A DAY cloNIDine HCl (CATAPRES) 0.1 mg tablet [Pharmacy Med Name: CLONIDINE HCL 0.1 MG TABLET] 270 tablet 3 Sig: TAKE 1 AND 1/2 TABLETS BY MOUTH TWICE DAILY Patient last seen 11/19/2020 [facility] documented in this encounter [facility] 06-16-2022 Note [facility] 06-09-2022 Note [facility] 06-08-2022 Miscellaneous Notes Patient has been identified by name and date of : Yes, Provider Dr. Ornelas Date 06/08/22 Time 2:25 pm Patient phones for refill(s): Requested Prescriptions Pending Prescriptions Disp Refills traZODone (DESYREL) 50 mg tablet 30 tablet 1 Sig: Take 1 tablet by mouth daily at bedtime. prn Date of last office visit in primary care: 04/20/22 next 10/14/22 Last 2 Encounter Wt Readings: Date: Wt: 04/20/2022 84.8 kg (187 lb) 04/13/2022 85.6 kg (188 lb 12.8 oz) Previous labs/tests for medication: Not applicable Thank you. Denae Srivastava LPN documented in this encounter [facility] 05-27-2022 Note [facility] 05-25-2022 Note [facility] 05-25-2022 History of Present illness Narrative Images from the original note were not included. [facility] [place] [facility] NOTE CC: Mateus Barth is a 72 year old male who is seen at the request of Flako Ornelas for evaluation of throat clearing, oral bleeding. My findings and recommendations will be communicated to the referring provider via the shared electronic medical record. ASSESSMENT: Throat clearing Oral bleeding Vocal cord nodule (primary encounter diagnosis) Gastroesophageal reflux disease, unspecified whether esophagitis present PLAN: - Flexible laryngoscopy today revealed vocal cord nodule - Consult to Laryngology for further evaluation, management of vocal cord nodule - Prescribed Protonix; counseled patient on medication, dose, route, side effects, and adverse reactions - Educated patient on GERD, including diet and lifestyle modifications; patient education handout provided - Advised patient on red flag warning signs, symptoms that warrant immediate evaluation in ER - Follow up with Laryngology; sooner if clinically indicated Giacomo Diez PA-C [facility] HPI: 72 year old male presents to clinic for evaluation of throat clearing, oral bleeding. Patient reports onset of throat clearing around the time of hepatitis diagnosis, 4-5 years ago, now more bothersome over the last few months. At that time, he was placed on steroids and that is when his throat clearing symptoms began. Patient reports thick, clear mucous that is causing throat clearing. Patient endorses globus sensation, changes to voice. Patient reports that he feels like his throat is coated with thick mucous, temporary improvement when able to clear throat completely. Patient reports history of GERD, stomach ulcer, not currently with any interventions. Patient endorses history of seasonal or environmental allergies, no interventions at this time. 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 Past medical history: 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 S/P ICD (internal cardiac defibrillator) procedure 03/09/2017 Sensorineural hearing loss Syncope Trochanteric bursitis of right hip Past surgical history: PAST SURGICAL HISTORY Procedure Laterality Date COLONOSCOPY FLX DX W/COLLJ SPEC WHEN PFRMD 2009 [place] COLONOSCOPY GEN ANES 04/15/2020 HERNIA REPAIR HX 01/2016 Double PACEMAKER PAST SURGICAL HISTORY OF Left 02/2015 orthoscopic left shoulder PAST SURGICAL HISTORY OF Right 2000 surgery in 1999---orthoscopic in 1992 PAST SURGICAL HISTORY OF 02/2014 Back surgery PAST SURGICAL HISTORY OF Hemilaminectomy with disc removal one lumbar interspace PAST SURGICAL HISTORY OF knee arthroscopy Current medication(s): Current Outpatient Medications Medication Sig amLODIPine (NORVASC) 5 mg tablet Take 1 tablet by mouth once daily. probenecid 500 mg tablet Take 1 tablet by mouth twice daily. tacrolimus IR (PROGRAF) 1 mg capsule Take 1 capsule by mouth twice daily. SITagliptin phosphate (JANUVIA) 25 mg tablet Take 1 tablet by mouth once daily. mycophenolate Mofetil (CELLCEPT) 500 mg tablet Take 1 tablet by mouth twice daily Qhakqcwu9-Nwgduk8-Oafof therm. (VSL#3) 112.5 billion cell cap Take 1 capsule by mouth once daily. Amoxicillin 500 mg tablet 2000 mg by mouth 1-2 hours prior to dental procedures metoprolol succinate ER (TOPROL XL) 100 mg Take 1 tablet by mouth twice daily. cloNIDine HCl (CATAPRES) 0.1 mg tablet Take 1.5 tablets by mouth twice daily. ergocalciferol 50,000 unit capsule (VITAMIN D2, DRISDOL) Take 1 capsule by mouth one time a week. Cholecalciferol, Vitamin D3, 25 mcg (1,000 unit) cap Take 1 capsule by mouth once daily. metroNIDAZOLE 1 % gel Apply 1 application to affected area once daily. Location: face triamcinolone acetonide (KENALOG) 0.1 % cream Apply 1 application to affected area twice daily. Apply to affected area. Location: posterior right buttock traZODone (DESYREL) 50 mg tablet Take 1 tablet by mouth daily at bedtime. prn OTC NUTRITIONAL SUPPLEMENT Take by mouth as directed. pantoprazole DR (PROTONIX) 40 mg tablet Take 1 tablet by mouth once daily. Current Facility-Administered Medications Medication Dose Route Frequency perflutren lipid microspheres 1.3 mL in NaCl (PF) 0.9% 10 mL injection (DEFINITY) INTRAVENOUS DIRECTED PRN sodium chloride 0.9 % (flush) 10 mL (BD POSIFLUSH) 10 mL INTRAVENOUS DIRECTED PRN Allergies: ALLERGIES Allergen Reactions Vicodin [Hydrocodon* Anaphylaxis stopped breathing Hibiscus Hives, Shortness of Breath Percocet [Oxycodone* Shortness of Breath Pt states he dosent have a allergy to percocet Valsartan Intolerance Cramps in legs, muscle pain Social history: Social History Tobacco Use Smoking status: Former Types: Cigars Quit date: 07/06/2019 Years since quittin.8 Smokeless tobacco: Never Tobacco comments: 07/14/17: occasional cigar + 2 cigarettes per week Vaping Use Vaping Use: Never used Substance Use Topics Alcohol use: Not Currently Alcohol/week: 2.5 standard drinks Types: 1 Glasses of Wine (5oz) per week Drug use: Yes Types: Marijuana Comment: medical marijuana Family history: FAMILY HISTORY Problem Relation Age of Onset Heart Father Hypertension Father Heart Paternal Uncle suddenly at age 40's, 2 other uncles suddenly Cancer Brother lung Heart disease Brother pacemaker. cardiac ablation Alcohol/Drug Brother No Known Problems Son There are no exam notes on file for this visit. ROS: CONSTITUTIONAL: No fevers, chills, nightsweats, unintended weight loss HEAD: - headaches, - head injury EYES: + glasses/contact lens, - changes in vision, - diplopia, - blurry vision, - floaters EARS: + hearing loss, - change in hearing, - tinnitus, - otalgia, - ear pressure, - ear congestion, - otorrhea, - itching, - autophony, - ear infections, - PE tubes NOSE & SINUSES: - nasal congestion, - rhinorrhea, + PND, - epistaxis, - sense of smell, - history of nasal polyps, - sinus trouble, - sinus pressure, - sinus pain MOUTH & THROAT: - soreness, - dryness, - ulcers, - sore throat, - hoarseness, + change in voice, - teeth (caries, dentures, extractions, abscesses), + globus sensation, + throat clearing NECK: - neck lumps, - goiter, - neck pain, - swollen lymph nodes or glands PULM: No dyspnea, + cough CV: No chest pain, shortness of breath, leg swelling, or palpitations GI: No dysphagia/odynophagia, + problematic reflux. No nausea, vomiting, or diarrhea PSYCH: No concerns regarding depression, anxiety or panic PHYSICAL EXAM: GENERAL: 72 year old male is well developed, well nourished, without obvious deformities, in no acute distress COMMUNICATION: The patient speaks with a normal, clear voice without hoarseness. No stridor or stertor. Hearing is grossly normal OVERALL FACIAL APPEARANCE: No obvious scars, lesions, or masses EYES: Extraocular muscles are intact, no diplopia on primary gaze EARS: Externally normal in appearance, without scars, lesions, masses, or tenderness. Right EAC: patent; no swelling, redness, or obstruction R TM: visualized and intact; pearly zavala and translucent, landmarks undistorted; no fluid behind TM R Pneumotoscopy: TM is mobile Left EAC: patent; no swelling, redness, or obstruction L TM: visualized and intact; pearly zavala and translucent, landmarks undistorted; no fluid behind TM L Pneumotoscopy: TM is mobile NOSE: Externally normal in appearance, without scars, lesions, or masses. There is no tenderness with percussion over the paranasal sinuses. Nasal passageways are patent. The mucosa is pink and moist without lesions, visible turbinates grossly normal on anterior rhinoscopy. Septum is deviated. ORAL CAVITY AND OROPHARYNX: Teeth are in fair repair and nontender. The lips, gums, oral mucosa, hard and soft palates, tongue, tonsil area, and posterior pharyngeal mucosa are without lesions. Uvula midline. + posterior oropharyngeal erythema. Gag reflex intact. NECK: The neck appears symmetric without scars and on palpation is without masses or lymphadenopathy. Trachea is midline and mobile. Full range of motion without symptoms. MSK: TMJ joint palpated and revealed no crepitation NEURO: Patient is Alert and Oriented to person, place, time, and situation. Cranial nerves II-XII grossly intact RESPIRATORY: Breathing comfortably, no evidence accessory muscle use, no intercostal retractions CV: Strong carotid artery pulse with no bruit RADS: None LABS: Relevant labs were reviewed and discussed with patient. OUTSIDE RECORDS: None PROCEDURE: Diagnostic Flexible Laryngoscopy Indication: Globus sensation, hyperactive gag reflex Consent: Verbal consent obtained. Risks, benefits, alternatives, and expectations were explained; patient consents to procedure. Clinician: Giacomo Diez PA-C Anesthesia: The patient was sprayed with 2% topical lidocaine and 0.5% phenylephrine. Findings: A flexible fiberoptic laryngoscope was passed through the patient's bilateral nares. The nasal cavities, nasopharynx, oropharynx, hypopharynx and larynx were examined. Septum: Deviated, no perforations Right nasal cavity: grossly unremarkable, no lesions/masses/polyps/discharge, turbinates normal in size Left nasal cavity: grossly unremarkable, no lesions/masses/polyps/discharge, turbinates normal in size Naso-/Erick-/Hypopharynx: nasopharynx and oropharynx were normal without any lesions or masses visualized. No masses or lesions were visualized at the base of tongue, vallecula, epiglottis, aryepiglottic folds, pyriform sinuses, and lateral pharyngeal harvey. There is posterior oropharyngeal erythema, cobblestoning. True vocal fold movement was intact bilaterally. There is a nodule on left true vocal cord. The patient's airway was widely patent with no evidence of obstruction Patient tolerated the procedure well and there were no complications. Findings were explained to the patient. Giacomo Diez PA-C [facility] Medical Decision Making: Problems: Moderate: 1+ chronic illnesses with change Risk: Moderate: Drug management and Moderate risk from testing/treatment Medical Decision Making Level: 4 - Moderate documented in this encounter [facility] 05-22-2022 Miscellaneous Notes Patient has been identified by name and date of : Yes Requested Prescriptions Pending Prescriptions Disp Refills amLODIPine (NORVASC) 5 mg tablet 90 tablet 1 Sig: Take 1 tablet by mouth once daily. probenecid 500 mg tablet 180 tablet 1 Sig: Take 1 tablet by mouth twice daily. RX INSTRUCTIONS: Patient aware RX will be sent to pharmacy. No need to notify patient. Teresa Hernandes LPN documented in this encounter [facility] 05-20-2022 Miscellaneous Notes Pt last seen cyndie 10/20/2021. Did you want a follow up appt with pt? Annamarie Garcia RN documented in this encounter [facility] 05-13-2022 Note [facility] 05-06-2022 Note [facility] 04-22-2022 Note [facility] 04-20-2022 Note [facility] 04-20-2022 History of Present illness Narrative Patient presents with: 6 Month Exam HPI: Patient presents today for office visit for follow up. Had declined meds during last ov. DM:discussed adding meds. HYPERTENSION:bp is stable. No new chest pain. No new shortness of breath. Red flags for re-assessment reviewed with patient in detail. No edema. Having bleeding in his mouth all the time. Has had dental work done but is now done in two weeks. Is constantly clearing his throat. He did change his ppi or am. No black or bloody stools. Will be getting and egd at some point. Component Latest Ref Rng & Units 04/09/2022 Protein, Total 6.3 - 8.0 g/dL 8.0 Albumin 3.9 - 4.9 g/dL 4.2 Calcium 8.5 - 10.2 mg/dL 9.4 Bilirubin, Total 0.2 - 1.3 mg/dL 0.8 Alkaline Phosphatase 38 - 113 U/L 199 (H) AST 14 - 40 U/L 43 (H) ALT 10 - 54 U/L 37 Glucose 74 - 99 mg/dL 157 (H) BUN 9 - 24 mg/dL 29 (H) Creatinine 0.73 - 1.22 mg/dL 1.38 (H) Sodium 136 - 144 mmol/L 138 Potassium 3.7 - 5.1 mmol/L 4.3 Chloride 97 - 105 mmol/L 102 CO2 22 - 30 mmol/L 26 Anion Gap 9 - 18 mmol/L 10 eGFR >=60 mL/min/1.73m 54 (L) WBC 3.70 - 11.00 k/uL 5.38 RBC 4.20 - 6.00 m/uL 4.94 Hemoglobin 13.0 - 17.0 g/dL 15.5 Hematocrit 39.0 - 51.0 % 45.1 MCV 80.0 - 100.0 fL 91.3 MCH 26.0 - 34.0 pg 31.4 MCHC 30.5 - 36.0 g/dL 34.4 RDW-CV 11.5 - 15.0 % 13.4 Platelet Count 150 - 400 k/uL 80 (L) MPV 9.0 - 12.7 fL 13.0 (H) Absolute nRBC <0.01 k/uL <0.01 Cholesterol, Total <200 mg/dL 167 Triglyceride <150 mg/dL 89 HDL Cholesterol >39 mg/dL 65 Non HDL Cholesterol <130 mg/dL 102 Fasting Time hrs 12 VLDL Cholesterol <30 mg/dL 18 TC:HDL Ratio <5.10 2.57 LDL Cholesterol <100 mg/dL 84 LDL:HDL Ratio <2.54 1.29 PT Sec <13.1 sec 11.8 PT INR 0.9 - 1.3 1.2 Hemoglobin A1C 4.3 - 5.6 % 8.1 (H) Estimated Average Glucose mg/dL 186 AFP <11.0 ng/mL 4.5 Vitamin D 25 Hydroxy 31.0 - 80.0 ng/mL 74.5 IgG 700 - 1,600 mg/dL 1,999 (H) MEDICATIONS: Current Outpatient Medications Medication Sig mycophenolate Mofetil (CELLCEPT) 500 mg tablet Take 1 tablet by mouth twice daily Scbkhybj2-Nsnxtf3-Icsnd therm. (VSL#3) 112.5 billion cell cap Take 1 capsule by mouth once daily. Amoxicillin 500 mg tablet 2000 mg by mouth 1-2 hours prior to dental procedures tacrolimus IR (PROGRAF) 1 mg capsule Take 1 capsule by mouth twice daily. amLODIPine (NORVASC) 5 mg tablet Take 1 tablet by mouth once daily. probenecid 500 mg tablet Take 1 tablet by mouth twice daily. metoprolol succinate ER (TOPROL XL) 100 mg Take 1 tablet by mouth twice daily. cloNIDine HCl (CATAPRES) 0.1 mg tablet Take 1.5 tablets by mouth twice daily. ergocalciferol 50,000 unit capsule (VITAMIN D2, DRISDOL) Take 1 capsule by mouth one time a week. Cholecalciferol, Vitamin D3, 25 mcg (1,000 unit) cap Take 1 capsule by mouth once daily. metroNIDAZOLE 1 % gel Apply 1 application to affected area once daily. Location: face triamcinolone acetonide (KENALOG) 0.1 % cream Apply 1 application to affected area twice daily. Apply to affected area. Location: posterior right buttock traZODone (DESYREL) 50 mg tablet Take 1 tablet by mouth daily at bedtime. prn OTC NUTRITIONAL SUPPLEMENT Take by mouth as directed. Current Facility-Administered Medications Medication Dose Route Frequency perflutren lipid microspheres 1.3 mL in NaCl (PF) 0.9% 10 mL injection (DEFINITY) INTRAVENOUS DIRECTED PRN sodium chloride 0.9 % (flush) 10 mL (BD POSIFLUSH) 10 mL INTRAVENOUS DIRECTED PRN ALLERGIES: ALLERGIES Allergen Reactions Vicodin [Hydrocodon* Anaphylaxis stopped breathing Hibiscus Hives, Shortness of Breath Percocet [Oxycodone* Shortness of Breath Pt states he dosent have a allergy to percocet Valsartan Intolerance Cramps in legs, muscle pain 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 S/P ICD (internal cardiac defibrillator) procedure 03/09/2017 Sensorineural hearing loss Syncope Trochanteric bursitis of right hip PAST SURGICAL HISTORY Procedure Laterality Date COLONOSCOPY FLX DX W/COLLJ SPEC WHEN PFRMD 2009 [place] of [place] COLONOSCOPY GEN ANES 04/15/2020 HERNIA REPAIR HX 01/2016 Double PACEMAKER PAST SURGICAL HISTORY OF Left 02/2015 orthoscopic left shoulder PAST SURGICAL HISTORY OF Right 1999 surgery in 1999---orthoscopic in 1992 PAST SURGICAL HISTORY OF 02/2014 Back surgery PAST SURGICAL HISTORY OF Hemilaminectomy with disc removal one lumbar interspace PAST SURGICAL HISTORY OF knee arthroscopy FAMILY HISTORY Problem Relation Age of Onset Heart Father Hypertension Father Heart Paternal Uncle suddenly at age 40's, 2 other uncles suddenly Cancer Brother lung Heart disease Brother pacemaker. cardiac ablation Alcohol/Drug Brother No Known Problems Son Social History Tobacco Use Smoking status: Former Types: Cigars Quit date: 07/06/2019 Years since quittin.7 Smokeless tobacco: Never Tobacco comments: 07/14/17: occasional cigar + 2 cigarettes per week Vaping Use Vaping Use: Never used Substance Use Topics Alcohol use: Not Currently Alcohol/week: 2.5 standard drinks Types: 1 Glasses of Wine (5oz) per week Drug use: Yes Types: Marijuana Comment: medical marijuana Reviewed current medications, allergies, past medical history, surgical history, family history and social history today. REVIEW OF SYSTEMS All other reviewed and negative other than HPI. HEALTH MAINTENANCE: Reviewed health maintenance issues today and recommended the following in detail. BP CONTROLLED (<130/80) Never done ADVANCE DIRECTIVE DISCUSSION due on 03/22/2022 DEPRESSION ASSESSMENT Never done VITALS: BP 147/88 Pulse (!) 54 Wt 84.8 kg (187 lb) SpO2 97% BMI 25.36 kg/m Last 4 Encounter Wt Readings: Date: Wt: 04/20/2022 84.8 kg (187 lb) 04/13/2022 85.6 kg (188 lb 12.8 oz) 12/22/2021 84.7 kg (186 lb 12.8 oz) 10/20/2021 84.4 kg (186 lb) PHYSICAL EXAMINATION: General appearance: Well appearing, alert, in no acute distress, well-hydrated, well nourished. Skin: Skin color, texture, turgor normal, no suspicious rashes or lesions Head: Normocephalic, no masses, lesions, tenderness or abnormalities Eyes: Anicteric sclera. Pupils are equally round and reactive to light. Extraocular movements are intact. Oropharynx: Lips, mucosa, and tongue normal, teeth and gums normal, oropharynx normal Neck: Negative findings: no adenopathy Lungs: Lungs clear to auscultation. No wheezing, rhonchi, rales Heart: RRR without murmur, gallop, or rubs. No ectopy Abdomen: Normal abdominal exam, Abdomen soft, non-tender. Bowel sounds normal. No masses, organomegaly Extremities: No deformities, edema, skin discoloration, clubbing or cyanosis. Good capillary refill. Musculoskeletal: No joint swelling, deformity, or tenderness ASSESSMENT/PLAN: 1. Hypertrophic obstructive cardiomyopathy (HOCM) (HCC) - ICD9: 425.11, ICD10: I42.1 (primary diagnosis) - per cardiology. Follow progress. Red flags for re-assessment reviewed with patient in detail. 2. Hyperlipidemia LDL goal <100 - ICD9: 272.4, ICD10: E78.5 - good control - Continue current medication. 3. Portal vein thrombosis - ICD9: 452, ICD10: I81 - will follow. 4. Hepatic cirrhosis, unspecified hepatic cirrhosis type, unspecified whether ascites present (HCC) - ICD9: 571.5, ICD10: K74.60 - will follow. 5. Controlled type 2 diabetes mellitus without complication, unspecified whether usp insulin use (HCC) - ICD9: 250.00, ICD10: E11.9 - elected not to monitor for now. Add januvia at renal dose. - HGB A1C 6. Thrombocytopenia (HCC) - ICD9: 287.5, ICD10: D69.6 7. Throat clearing - ICD9: 786.09, ICD10: R09.89 - CONSULT TO ENT 8. Oral bleeding - ICD9: 528.9, ICD10: K13.79 - CONSULT TO ENT Flako Ornelas MD documented in this encounter [facility] 04-16-2022 Note [facility] 04-13-2022 Note [facility] 04-10-2022 Miscellaneous Notes Called Mateus Barth to remind them of an appointment with Dr. Bear on 04/13/22. Left Message for patient. documented in this encounter [facility] 04-08-2022 Note [facility] 04-08-2022 History of Present illness Narrative POPULATION HEALTH NAVIGATION OUTREACH Action/I [employer]VM [employer] M[employer] SENT ANNUAL MEDICARE WELLNESS BP CONTROLLED (<130/80) Never done ADVANCE DIRECTIVE DISCUSSION due on 03/22/2022 Pt identified by name and : NO Outreach Outcome/Action Unable to reach patient: Left message MyChart message sent Did you use a PCP flex slot to schedule this appointment? N/A Reason for Outreach Care Gap or Scheduling/Wellness visits Payer: Payor: MEDICARE / Plan: MEDICARE A AND B / Product Type: Medicare / Care Gap Reviewed:: Annual Wellness visit Controlling Blood Pressure Reminder: Reminder note to check Health Maintenance for items below Health Maintenance items due: BP CONTROLLED (<130/80) Never done LDL CHOLESTEROL due on 12/25/2021 ADVANCE DIRECTIVE DISCUSSION due on 03/22/2022 DEPRESSION ASSESSMENT Never done Navigation Signature: Sally Odonnell MA April 08, 2022 9:51 AM documented in this encounter [facility] 04-07-2022 Note [facility] 04-07-2022 History of Present illness Narrative Radiology Service Progress Note PATIENT NAME: Mateus Barth DATE OF SERVICE: April 07, 2022 TIME: 1:58 PM PATIENT IDENTITY VERIFICATION COMPLETED USING TWO (2) IDENTIFIERS: Name and Date of confirmed by patient verbally. FALL SCREENING: Has the patient had 2 falls in the last year or 1 fall with injury or currently using an Ambulatory Assistive Device (Walker, Cane, Wheelchair, Crutches, etc.)? No PATIENT GENDER DATA: Male PATIENT RELEVANT IMPLANT DATA REVIEWED: Not Applicable RADIOLOGY DEPARTMENT: Ultrasound PERIPHERAL IV DATA: Not applicable SIGNED BY: RT Lucian(R) April 07, 2022 1:58 PM documented in this encounter [facility] 04-01-2022 Note [facility] 03-09-2022 Miscellaneous Notes Patient phones requesting refills as follows: Requested Prescriptions Pending Prescriptions Disp Refills Amoxicillin 500 mg tablet 16 tablet 0 Si mg by mouth 1-2 hours prior to dental procedures Please review and advise. Hever Pascal LPN documented in this encounter [facility] 01-26-2022 Miscellaneous Notes Called and spoke with patient this is regarding him getting his miranda testing kit. After discussion with patient we have done what was asked of us and patient has made multiple trips to pharmacy and still unable to obtain supplies. Call to pharmacy and spoke with tech who then transferred to pharmacist. Patient has Medicare and MUST be on insulin 3 or more times daily to qualify. We have to send face to face documentation from the office in the past 6 months to pharmacy to provide to insurance. Patient notified and verbalizes understanding. Can we actually call patient and see what questions were. I was out of town when he sent messages and staff and Fabricio were covering. Not sure what other questions he had. Please refer to [email or web address] message 12/29/21-while PCP was out on vacation: all questions were addressed by staff & Fabricio. Lorna Watkins MA documented in this encounter [facility] 01-02-2022 Miscellaneous Notes Please see previous [email or web address] message. documented in this encounter [facility] 12-29-2021 Miscellaneous Notes Spoke with [facility] who states they do in fact have the Rx's for the Miranda supplies. Insurance is not covering it. Recommended that patient stop in to pharmacy and give new insurance information so pharmacy can try running it through again. Spoke with patient and informed. Lucinda Damon documented in this encounter [facility] 12-22-2021 History of Present illness Narrative Patient presents with: Follow Up: Following up on blood sugar results HPI: Patient presents today for office visit for follow up. Sugars are in the diabetic range. He is not surprised. He wants to work on diet. He cannot take metformin. He does not want to add meds unless he has to. No shortness of breath. No new chest pain. No polyuria or polydipsia. No unexplained weight loss. Component Latest Ref Rng & Units 11/10/2021 Creatinine, Ur Random (UCRR) 20.0 - 300.0 mg/dL 166.0 Albumin, Urine Random mg/L 353.2 Albumin/Creat Ratio <30 mg/g 213 (H) Hemoglobin A1C 4.3 - 5.6 % 7.5 (H) Estimated Average Glucose mg/dL 169 MEDICATIONS: Current Outpatient Medications Medication Sig Tdkgvsms6-Hqaiyu5-Kezmn therm. (VSL#3) 112.5 billion cell cap Take 1 capsule by mouth once daily. mycophenolate Mofetil (CELLCEPT) 500 mg tablet Take 1 tablet by mouth twice daily. tacrolimus IR (PROGRAF) 1 mg capsule Take 1 capsule by mouth twice daily. amLODIPine (NORVASC) 5 mg tablet Take 1 tablet by mouth once daily. probenecid 500 mg tablet Take 1 tablet by mouth twice daily. Amoxicillin 500 mg tablet 2000 mg by mouth 1-2 hours prior to dental procedures metoprolol succinate ER (TOPROL XL) 100 mg Take 1 tablet by mouth twice daily. cloNIDine HCl (CATAPRES) 0.1 mg tablet Take 1.5 tablets by mouth twice daily. ergocalciferol 50,000 unit capsule (VITAMIN D2, DRISDOL) Take 1 capsule by mouth one time a week. Cholecalciferol, Vitamin D3, 25 mcg (1,000 unit) cap Take 1 capsule by mouth once daily. metroNIDAZOLE 1 % gel Apply 1 application to affected area once daily. Location: face triamcinolone acetonide (KENALOG) 0.1 % cream Apply 1 application to affected area twice daily. Apply to affected area. Location: posterior right buttock traZODone (DESYREL) 50 mg tablet Take 1 tablet by mouth daily at bedtime. prn OTC NUTRITIONAL SUPPLEMENT Take by mouth as directed. ursodiol (ACTIGALL) 300 mg capsule Take 1 capsule by mouth twice daily. (Patient not taking: No sig reported) Current Facility-Administered Medications Medication Dose Route Frequency perflutren lipid microspheres 1.3 mL in NaCl (PF) 0.9% 10 mL injection (DEFINITY) INTRAVENOUS DIRECTED PRN sodium chloride 0.9 % (flush) 10 mL (BD POSIFLUSH) 10 mL INTRAVENOUS DIRECTED PRN ALLERGIES: ALLERGIES Allergen Reactions Vicodin [Hydrocodon* Anaphylaxis stopped breathing Hibiscus Hives, Shortness of Breath Percocet [Oxycodone* Shortness of Breath Pt states he dosent have a allergy to percocet Valsartan Intolerance Cramps in legs, muscle pain 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 S/P ICD (internal cardiac defibrillator) procedure 03/09/2017 Sensorineural hearing loss Syncope Trochanteric bursitis of right hip PAST SURGICAL HISTORY Procedure Laterality Date COLONOSCOPY FLX DX W/COLLJ SPEC WHEN PFRMD 2010 [place] of [place] COLONOSCOPY GEN ANES 04/15/2020 HERNIA REPAIR HX 01/2016 Double PACEMAKER PAST SURGICAL HISTORY OF Left 02/2015 orthoscopic left shoulder PAST SURGICAL HISTORY OF Right 1999 surgery in 1999---orthoscopic in 1992 PAST SURGICAL HISTORY OF 02/2014 Back surgery PAST SURGICAL HISTORY OF Hemilaminectomy with disc removal one lumbar interspace PAST SURGICAL HISTORY OF knee arthroscopy FAMILY HISTORY Problem Relation Age of Onset Heart Father Hypertension Father Heart Paternal Uncle suddenly at age 40's, 2 other uncles suddenly Cancer Brother lung Heart disease Brother pacemaker. cardiac ablation Alcohol/Drug Brother No Known Problems Son Social History Tobacco Use Smoking status: Former Types: Cigars Quit date: 07/06/2019 Years since quittin.4 Smokeless tobacco: Never Tobacco comments: 07/14/17: occasional cigar + 2 cigarettes per week Vaping Use Vaping Use: Never used Substance Use Topics Alcohol use: Not Currently Alcohol/week: 2.5 standard drinks Types: 1 Glasses of Wine (5oz) per week Drug use: Yes Types: Marijuana Comment: medical marijuana Reviewed current medications, allergies, past medical history, surgical history, family history and social history today. REVIEW OF SYSTEMS All other reviewed and negative other than HPI. HEALTH MAINTENANCE: Reviewed health maintenance issues today and recommended the following in detail. BP CONTROLLED (<130/80) Never done COVID-19 VACCINE(6 - Booster for Pfizer series) due on 12/17/2021 LDL CHOLESTEROL due on 12/25/2021 VITALS: BP 160/92 Pulse (!) 53 Ht 182.9 cm (6') Wt 84.7 kg (186 lb 12.8 oz) SpO2 98% BMI 25.33 kg/m Last 4 Encounter Wt Readings: Date: Wt: 12/22/2021 84.7 kg (186 lb 12.8 oz) 10/20/2021 84.4 kg (186 lb) 10/16/2021 83 kg (183 lb) 04/16/2021 82.6 kg (182 lb) PHYSICAL EXAMINATION: General appearance: Well appearing, alert, in no acute distress, well-hydrated, well nourished. Skin: Skin color, texture, turgor normal, no suspicious rashes or lesions Head: Normocephalic, no masses, lesions, tenderness or abnormalities Neck: Supple, no adenopath Lungs: Lungs clear to auscultation. No wheezing, rhonchi, rales Heart: RRR without murmur, gallop, or rubs. No ectopy Abdomen: Normal abdominal exam, Abdomen soft, non-tender. Bowel sounds normal. No masses, organomegaly Extremities: No deformities, edema, skin discoloration, clubbing or cyanosis. Good capillary refill. ASSESSMENT/PLAN: 1. Hyperlipidemia LDL goal <100 - ICD9: 272.4, ICD10: E78.5 (primary diagnosis) - will follow. 2. Controlled type 2 diabetes mellitus without complication, without long-term current use of insulin (HCC) - ICD9: 250.00, ICD10: E11.9 worsening control - work on diet. Glucometer supplies. - HGB A1C - LIPID PANEL BASIC 3. Portal vein thrombosis - ICD9: 452, ICD10: I81 4. Hepatic cirrhosis, unspecified hepatic cirrhosis type, unspecified whether ascites present (HCC) - ICD9: 571.5, ICD10: K74.60 5. Hypertrophic obstructive cardiomyopathy (HOCM) (HCC) - ICD9: 425.11, ICD10: I42.1 - follow bp in next month Flako Ornelas MD documented in this encounter [facility] 11-11-2021 Miscellaneous Notes Spoke with patient and informed of labs. Patient verbalized understanding. Appointment scheduled 12/13/21 per Patient he needed late November appointment. Patient states that he's been eating a lot of ice-cream and also taking high protein supplements. Lucinda Damon Sugars are slightly higher and showing some protein in the urine. Come in to see one of us to discuss. documented in this encounter [facility] 10-20-2021 Instructions Bernadette Miles MD - 10/20/2021 1:29 PM EDT We are scheduling you for an echocardiogram documented in this encounter [facility] 10-20-2021 History of Present illness Narrative Images from the original note were not included. [facility] SE[facility] CARDIOLOGY Cardiology ([facility]) [address] [facility] [id number] OUTPATIENT VISIT DATE 10/20/2021 PRIMARY CARE PHYSICIAN: Flako Ornelas [address] [place] [address] CHIEF COMPLAINT: HISTORY OF PRESENT ILLNESS: Mr. Barth is a 71 year old gentleman with a history of hypertrophic cardiomyopathy with ICD implantation in 2012, angiographically normal coronary arteries on prior catheterization 2012, hypertension, and autoimmune hepatitis who presents to establish new cardiology follow-up. He currently lives in the [facility]. He is referred so that he can have closer follow-up to home. He is currently been following at the [facility] for electrophysiology. He has occasional episodes of sharp stabbing chest pain which lasts anywhere from a few seconds to 10 seconds. Is not related to exertion. There seem to be no exacerbating or relieving factors. He has not had symptoms concerning for congestive heart failure including PND, orthopnea, lower extreme edema. He has not had feelings of palpitations, lightheadedness, or ICD discharges. PAST CARDIAC HISTORY: He underwent ICD placement in 2012 after a syncopal episode. [facility] 06/02/12: EF 75%, LM, Circumflex and RCA normal, mild LAD myocardial bridging. Past medical history significant for autoimmune hepatitis. WAs on prednisone and Imuran but he did not tolerate treatment because of hyperglycemia induced by steroid. He is currently on CellCept and tacrolimus and has been doing well. He has no ascites or history of encephalopathy or SBP. EGD last year showed grade 1 varices at the GE junction Liver biopsy from 08/20/2019 showing portal HTN with HVPG 7; biopsy showing at least bridging fibrosis with concern for sampling error in setting of multiple imaging studies showing cirrhotic liver morphology. CT scan 08/2020: Cirrhosis and portal hypertension with trace ascites. Past medical history also significant for hypertension, venous insufficiency, small fiber neuropathy. 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 S/P ICD (internal cardiac defibrillator) procedure 03/09/2017 Sensorineural hearing loss Syncope Trochanteric bursitis of right hip PAST SURGICAL HISTORY Procedure Laterality Date COLONOSCOPY FLX DX W/COLLJ SPEC WHEN PFRMD 2009 Out of state COLONOSCOPY GEN ANES 04/15/2020 HERNIA REPAIR HX 01/2016 Double PACEMAKER PAST SURGICAL HISTORY OF Left 02/2015 orthoscopic left shoulder PAST SURGICAL HISTORY OF Right 2000 surgery in 1999---orthoscopic in 1992 PAST SURGICAL HISTORY OF 02/2014 Back surgery PAST SURGICAL HISTORY OF Hemilaminectomy with disc removal one lumbar interspace PAST SURGICAL HISTORY OF knee arthroscopy SOCIAL HISTORY Social History Tobacco Use Smoking status: Former Smoker Types: Cigars Quit date: 07/06/2019 Years since quittin.2 Smokeless tobacco: Never Used Tobacco comment: 07/14/17: occasional cigar + 2 cigarettes per week Vaping Use Vaping Use: Never used Substance Use Topics Alcohol use: Not Currently Alcohol/week: 2.5 standard drinks Types: 1 Glasses of Wine (5oz) per week Drug use: Yes Types: Marijuana Comment: medical marijuana FAMILY HISTORY Problem Relation Age of Onset Heart Father Hypertension Father Heart Paternal Uncle suddenly at age 40's, 2 other uncles suddenly Cancer Brother lung Heart disease Brother pacemaker. cardiac ablation Alcohol/Drug Brother No Known Problems Son ALLERGIES: ALLERGIES Allergen Reactions Vicodin [Hydrocodon* Anaphylaxis stopped breathing Hibiscus Hives, Shortness of Breath Percocet [Oxycodone* Shortness of Breath Pt states he dosent have a allergy to percocet Valsartan Intolerance Cramps in legs, muscle pain MEDICATIONS: tacrolimus IR (PROGRAF) 1 mg capsule Take 1 capsule by mouth twice daily. Iljiimby7-Smvooj1-Przrp therm. (VSL#3) 112.5 billion cell cap Take 1 capsule by mouth once daily. Amoxicillin 500 mg tablet 2000 mg by mouth 1-2 hours prior to dental procedures metoprolol succinate ER (TOPROL XL) 100 mg Take 1 tablet by mouth twice daily. cloNIDine HCl (CATAPRES) 0.1 mg tablet Take 1.5 tablets by mouth twice daily. probenecid 500 mg tablet Take 1 tablet by mouth twice daily. amLODIPine (NORVASC) 5 mg tablet Take 1 tablet by mouth once daily. ergocalciferol 50,000 unit capsule (VITAMIN D2, DRISDOL) Take 1 capsule by mouth one time a week. Cholecalciferol, Vitamin D3, 25 mcg (1,000 unit) cap Take 1 capsule by mouth once daily. metroNIDAZOLE 1 % gel Apply 1 application to affected area once daily. Location: face triamcinolone acetonide (KENALOG) 0.1 % cream Apply 1 application to affected area twice daily. Apply to affected area. Location: posterior right buttock traZODone (DESYREL) 50 mg tablet Take 1 tablet by mouth daily at bedtime. prn OTC NUTRITIONAL SUPPLEMENT Take by mouth as directed. ursodiol (ACTIGALL) 300 mg capsule Take 1 capsule by mouth twice daily. mycophenolate Mofetil (CELLCEPT) 500 mg tablet Take 1 tablet by mouth twice daily. REVIEW OF SYSTEMS: Review of Systems Constitutional: Negative for chills, fever, malaise/fatigue and weight loss. HENT: Negative for hearing loss and sore throat. Eyes: Negative for blurred vision and double vision. Respiratory: Negative. Cardiovascular: Positive for chest pain. Gastrointestinal: Positive for diarrhea. Genitourinary: Negative for dysuria, frequency, hematuria and urgency. Musculoskeletal: Negative. Skin: Negative. Neurological: Negative for dizziness, seizures, loss of consciousness, weakness and headaches. Endo/Heme/Allergies: Negative for environmental allergies. Does not bruise/bleed easily. Psychiatric/Behavioral: Negative for depression. PHYSICAL EXAMINATION: BP 126/80 Pulse 50 Ht 6' 0 (1.83m) Wt 186 lb (84.4kg) SpO2 97% BMI 25.22 kg/(m^2). General: Pleasant gentleman sitting appears comfortable no apparent distress. He is alert and oriented x 3 HEENT: Carotid upstrokes are brisk bilaterally without bruits no JVD appreciated. Pulmonary: Lungs are clear no rales, wheezes, rhonchi Cardiovascular: Normal S1, S2 with regular rate and rhythm. 2/6 late peaking crescendo decrescendo murmur right upper sternal border Extremities: Warm, well-perfused, no lower extremity edema. CARDIOVASCULAR MEDICINE TESTING: Regadenoson Myoview Stress 12/16/2020: CONCLUSIONS: 1. SPECT Perfusion Study: Normal. 2. There is no scintigraphic evidence for inducible ischemia. 3. No evidence of scarred myocardium. 4. Left ventricle is normal in size. The left ventricle systolic function is normal. 5. Right ventricle is normal in size. The right ventricle systolic function is normal. 6. This is a low risk scan. Gated Stress FBP Gated Rest FBP LVEF % 61 60 Echocardiogram 11/19/2021: - The left ventricle is normal in size. There is severe septal asymmetric left ventricular hypertrophy. Left ventricular systolic function is normal. EF = 68 5% (2D biplane) Definity contrast used for endocardial border detection. Possible apical hypertrophy. - The right ventricle is normal in size. Right ventricular systolic function is normal. - The left atrial cavity is severely dilated. - The right atrial cavity is dilated. -At rest, HR 51 bpm, Trivial-1 MR , LVOT gradient 7.9mmHg , mild chordal PATRICIA. -With Valsalva, HR 51 bpm, 1-2 MR, LVOT gradient 10.2mHg, mild chordal PATRICIA. -With Amyl, HR of 59 bpm, 1-2 MR, LVOT gradient of 24mmHg and worsening PATRICIA with septal contact. - Exam was compared with the prior echocardiographic exam performed on 09/05/2019. Gradients are lower. DUAL CHAMBER ICD REMOTE EVALUATION 09/02/2021: PRESENTING EGM: /VS BATTERY STATUS: Estimated time remaining to KIMBER is 4.5 years. COUNTERS SINCE: 09/05/2019 ATRIAL ARRHYTHMIAS: There have been no triggered episodes of atrial high rates since last remote. VENTRICULAR ARRHYTHMIAS: There has been 1 VT-1 detection since last remote. EGM shows short burst of nsVT. LEAD MEASUREMENTS: Sensing is appropriate. Review of the lead impedance trends are normal. OTHER DIAGNOSTICS: Total V pacing 0%. I have personally reviewed the Laboratory Testing and Echocardiogram. IMPRESSION: Mr. Barth is a 71 year old gentleman with a history of hypertrophic cardiomyopathy and prior ICD implantation in 2012. He had undergone cardiac catheterization before his ICD implantation which demonstrated no significant coronary disease and possible mild LAD bridge. He is also treated for hypertension. He has a history of autoimmune hepatitis and is currently on therapy. He presents the office to establish new cardiology follow-up. PLAN AND RECOMMENDATIONS: 1. Hypertrophic obstructive cardiomyopathy (HOCM) (HCC) - ICD9: 425.11, ICD10: I42.1 (primary diagnosis) Patient doing well on current medical therapy. I reviewed his echocardiogram from 2020 with him during the office visit. I also reviewed the findings on his ICD interrogation. He is on a large dose of Toprol 100 mg twice daily which seems to be well-tolerated. He has not had symptoms concerning for CHF. Plan to repeat an echocardiogram in the fall. - ECHO - PERFLUTREN LIPID MICROSPHERES 1.1 MG/ML INJECTION IN NS 10 ML - SODIUM CHLORIDE 0.9 % (FLUSH) INJECTION SYRINGE 2. Essential hypertension - ICD9: 401.9, ICD10: I10 Well-controlled on current regimen 3. Hyperlipidemia LDL goal <100 - ICD9: 272.4, ICD10: E78.5 4. S/P ICD (internal cardiac defibrillator) procedure - ICD9: V45.02, ICD10: Z95.810 Patient is having short runs of nonsustained VT. Does not seem to be increasing in frequency compared to prior ICD checks - ECHO - PERFLUTREN LIPID MICROSPHERES 1.1 MG/ML INJECTION IN NS 10 ML - SODIUM CHLORIDE 0.9 % (FLUSH) INJECTION SYRINGE 5. Venous insufficiency - ICD9: 459.81, ICD10: I87.2 Bernadette Miles MD documented in this encounter [facility] 10-16-2021 History of Present illness Narrative Patient presents with: 6 Month Exam HPI: Patient presents today for office visit for follow up. Have adjusted meds. Stomach is doing better. Loose stools are not as bad. He did see gi. He is due end of the summer to see cardiology. No new chest pain pain No shortness of breath. No significant edema. Emotionally is stable. No bleeding issues. Did have a slight less than 1 cm bruise on left wrist and arm. No specific abrasion on right leg. Red flags for re-assessment reviewed with patient in detail. Will be doing a cruise of the [employer] coming up. Will be getting labs before per hepatology. Would like to monitor sugars. Does not check at home. No polyuria or polydipsia. See previous notes: No bleeding issues. No bruising issues. Has some chronic shortness of breath. Gets occasional rare sharp chest pain for a few seconds. Not new. Getting icd tested. It has not went off that he is aware of. Still seeing Dr. Sharma. Emotionally is doing well. Just had labs done for hepatology Labs are stable. Vit d is low. Had egd done recently. No banding done. Grade I varices. bp was up on arrival. Due to recheck labs for gout, he would like to reduce probenicid Has had some loose stools but marijuana is now better. Had colonoscopy in 04/11. Has had some post nasal drip. Using saline drops. Will call if needs a travel letter with his list of meds. Did see Dr. Hills recently: 70-year-old gentleman with anemia of chronic disease and thrombocytopenia secondary to cirrhosis and chronic liver disease from autoimmune hepatitis vs chronic ITP. There has been no changes in his platelet count over the last 2 years, and he denies any clinical bleeding or bruising or anemia. See previous ov: ENDO: actually had hyperglycemia due to steroids.recently had biopsy that showed small fiber neuropathy due to his neuropathy. NEURO: see neuro for neuropathy Given temazepam for sleep by Dr. Orr. oarrs done. Discussed risks of using benzos. Advised I would prefer to avoid. Cardio:seeing [facility]iology at [facility]. No chest pain No worsening shortness of breath. Some edema at times in his legs if inactive. Has ICD in place. Has been found in the past to have positive lyme markers. Vague symptoms. Was on antibiotics during the period of diagnosis but unsure of what HYPERTENSION:bp is well controlled. GASTROENTEROLOGY:sees gi. Is on prograf for autoimmune hepatitis. Had ct done recently and no lesions. See hepatology HEME:has never been seen by hematology. I am assuming it is due to his liver issues. No bleeding issues. He would like to see Pre Planning Advisor just to follow. PSYCH:sees Dr. Sharma for psych. Uses medical marijuana. Emotionally stable. GOUT:no recent issues. Ortho: sees Dr. Cadena for his finger and seeing Dr. Yap for his knees. MEDICATIONS: Current Outpatient Medications Medication Sig ursodiol (ACTIGALL) 300 mg capsule Take 1 capsule by mouth twice daily. tacrolimus IR (PROGRAF) 1 mg capsule Take 1 capsule by mouth twice daily. Psjfmeze3-Fffgjq8-Ddtor therm. (VSL#3) 112.5 billion cell cap Take 1 capsule by mouth once daily. Amoxicillin 500 mg tablet 2000 mg by mouth 1-2 hours prior to dental procedures mycophenolate Mofetil (CELLCEPT) 500 mg tablet Take 1 tablet by mouth twice daily. metoprolol succinate ER (TOPROL XL) 100 mg Take 1 tablet by mouth twice daily. cloNIDine HCl (CATAPRES) 0.1 mg tablet Take 1.5 tablets by mouth twice daily. probenecid 500 mg tablet Take 1 tablet by mouth twice daily. amLODIPine (NORVASC) 5 mg tablet Take 1 tablet by mouth once daily. ergocalciferol 50,000 unit capsule (VITAMIN D2, DRISDOL) Take 1 capsule by mouth one time a week. Cholecalciferol, Vitamin D3, 25 mcg (1,000 unit) cap Take 1 capsule by mouth once daily. metroNIDAZOLE 1 % gel Apply 1 application to affected area once daily. Location: face triamcinolone acetonide (KENALOG) 0.1 % cream Apply 1 application to affected area twice daily. Apply to affected area. Location: posterior right buttock traZODone (DESYREL) 50 mg tablet Take 1 tablet by mouth daily at bedtime. prn OTC NUTRITIONAL SUPPLEMENT Take by mouth as directed. Current Facility-Administered Medications Medication Dose Route Frequency sodium chloride 0.9 % (flush) 10 mL (BD POSIFLUSH) 10 mL INTRAVENOUS DIRECTED PRN ALLERGIES: ALLERGIES Allergen Reactions Vicodin [Hydrocodon* Anaphylaxis stopped breathing Hibiscus Hives, Shortness of Breath Percocet [Oxycodone* Shortness of Breath Pt states he dosent have a allergy to percocet Valsartan Intolerance Cramps in legs, muscle pain 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 S/P ICD (internal cardiac defibrillator) procedure 03/09/2017 Sensorineural hearing loss Syncope Trochanteric bursitis of right hip PAST SURGICAL HISTORY Procedure Laterality Date COLONOSCOPY FLX DX W/COLLJ SPEC WHEN PFRMD 2009 [place] of [place] COLONOSCOPY GEN ANES 04/15/2020 HERNIA REPAIR HX 01/2016 Double PACEMAKER PAST SURGICAL HISTORY OF Left 02/2015 orthoscopic left shoulder PAST SURGICAL HISTORY OF Right 2000 surgery in 1999---orthoscopic in 1992 PAST SURGICAL HISTORY OF 02/2014 Back surgery PAST SURGICAL HISTORY OF Hemilaminectomy with disc removal one lumbar interspace PAST SURGICAL HISTORY OF knee arthroscopy FAMILY HISTORY Problem Relation Age of Onset Heart Father Hypertension Father Heart Paternal Uncle suddenly at age 40's, 2 other uncles suddenly Cancer Brother lung Heart disease Brother pacemaker. cardiac ablation Alcohol/Drug Brother No Known Problems Son Social History Tobacco Use Smoking status: Former Smoker Types: Cigars Quit date: 07/06/2019 Years since quittin.2 Smokeless tobacco: Never Used Tobacco comment: 07/14/17: occasional cigar + 2 cigarettes per week Vaping Use Vaping Use: Never used Substance Use Topics Alcohol use: Not Currently Alcohol/week: 2.5 standard drinks Types: 1 Glasses of Wine (5oz) per week Drug use: Yes Types: Marijuana Comment: medical marijuana Reviewed current medications, allergies, past medical history, surgical history, family history and social history today. REVIEW OF SYSTEMS Does have chronic sciatic issues with his leg. Will call if worsens. All other reviewed and negative other than HPI. HEALTH MAINTENANCE: Reviewed health maintenance issues today and recommended the following in detail. PNEUMOCOCCAL: 63+(3 - PCV) due on 09/25/2016 ADVANCE DIRECTIVE DISCUSSION - on file URINE ALBUMIN:CREATININE RATIO due on 07/05/2021 COVID-19 VACCINE(5 - Booster for Pfizer series) due on 09/07/2021 VITALS: BP 136/78 Pulse (!) 59 Wt 83 kg (183 lb) SpO2 99% BMI 24.82 kg/m Last 4 Encounter Wt Readings: Date: Wt: 10/16/2021 83 kg (183 lb) 04/16/2021 82.6 kg (182 lb) 02/06/2021 83 kg (183 lb) 12/10/2020 83 kg (183 lb) PHYSICAL EXAMINATION: General appearance: Well appearing, alert, in no acute distress, well-hydrated, well nourished. Skin: Skin color, texture, turgor normal, no suspicious rashes or lesions Head: Normocephalic, no masses, lesions, tenderness or abnormalities Lungs: Lungs clear to auscultation. No wheezing, rhonchi, rales Heart: RRR without murmur, gallop, or rubs. No ectopy Abdomen: Normal abdominal exam, Abdomen soft, non-tender. Bowel sounds normal. No masses, organomegaly Extremities: No deformities, edema, skin discoloration, clubbing or cyanosis. Good capillary refill. Musculoskeletal: No joint swelling, deformity, or tenderness Peripheral pulses: Normal Neuro: Negative. ASSESSMENT/PLAN: 1. Autoimmune hepatitis treated with steroids (HCC) - ICD9: 571.42, ICD10: K75.4 (primary diagnosis) - per gi. 2. Hepatic cirrhosis, unspecified hepatic cirrhosis type, unspecified whether ascites present (HCC) - ICD9: 571.5, ICD10: K74.60 - stable. 3. Portal vein thrombosis - ICD9: 452, ICD10: I81 - per gi. 4. Thrombocytopenia (HCC) - ICD9: 287.5, ICD10: D69.6 - monitor. Back to hematology prn. 5. Recurrent depression (HCC) - ICD9: 296.30, ICD10: F33.9 - continue to see psych. 6. S/P ICD (internal cardiac defibrillator) procedure - ICD9: V45.02, ICD10: Z95.810 - CONSULT TO CARDIOLOGY 7. Hyperlipidemia LDL goal <100 - ICD9: 272.4, ICD10: E78.5 - will gollow 8. Hypertrophic obstructive cardiomyopathy (HOCM) (HCC) - ICD9: 425.11, ICD10: I42.1 - CONSULT TO CARDIOLOGY 9. Steroid-induced hyperglycemia - ICD9: 790.29, E932.0, ICD10: R73.9, T38.0X5A - HGB A1C - ALBUMIN/CREAT RATIO RND UR Flako Ornelas RTO in six month and prn. documented in this encounter [facility] 10-13-2021 History of Present illness Narrative VIRTUAL VISIT FOLLOW UP I had a virtual visit with Mr. Barth today for follow up of autoimmune hepatitis with cirrhosis. UPDATED HISTORY: - accidentally cut back ursodiol - went from 300 mg PO BID to 300 mg once daily - also changed diet to gluten free, and these changes helped with his GI symptoms - continues to have fecal urgency without diarrhea or incontinence - AM is the worst - also has post prandial nausea without vomiting - has voice hoarseness and constant clearing of his vocal cords; tried PPI in the past which helped but then went off this med - when he was previously on budesonide for treatment of AIH it did NOT help with his GI symptoms, making suspicion for microscopic colitis lower 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 S/P ICD (internal cardiac defibrillator) procedure 03/09/2017 Sensorineural hearing loss Syncope Trochanteric bursitis of right hip PAST SURGICAL HISTORY Procedure Laterality Date COLONOSCOPY FLX DX W/COLLJ SPEC WHEN PFRMD 2009 [place] of [place] COLONOSCOPY GEN ANES 04/15/2020 HERNIA REPAIR HX 01/2016 Double PACEMAKER PAST SURGICAL HISTORY OF Left 02/2015 orthoscopic left shoulder PAST SURGICAL HISTORY OF Right 2000 surgery in 1999---orthoscopic in 1992 PAST SURGICAL HISTORY OF 02/2014 Back surgery PAST SURGICAL HISTORY OF Hemilaminectomy with disc removal one lumbar interspace PAST SURGICAL HISTORY OF knee arthroscopy FAMILY HISTORY Problem Relation Age of Onset Heart Father Hypertension Father Heart Paternal Uncle suddenly at age 40's, 2 other uncles suddenly Cancer Brother lung Heart disease Brother pacemaker. cardiac ablation Alcohol/Drug Brother No Known Problems Son Social History Tobacco Use Smoking status: Former Smoker Types: Cigars Quit date: 07/06/2019 Years since quittin.2 Smokeless tobacco: Never Used Tobacco comment: 07/14/17: occasional cigar + 2 cigarettes per week Vaping Use Vaping Use: Never used Substance Use Topics Alcohol use: Not Currently Alcohol/week: 2.5 standard drinks Types: 1 Glasses of Wine (5oz) per week Drug use: Yes Types: Marijuana Comment: medical marijuana Current Outpatient Medications Medication Sig Dispense Refill ursodiol (ACTIGALL) 300 mg capsule Take 1 capsule by mouth twice daily. 180 capsule 0 tacrolimus IR (PROGRAF) 1 mg capsule Take 1 capsule by mouth twice daily. 60 capsule 5 Smfphqqo8-Gobijh0-Njujw therm. (VSL#3) 112.5 billion cell cap Take 1 capsule by mouth once daily. 90 capsule 1 Amoxicillin 500 mg tablet 2000 mg by mouth 1-2 hours prior to dental procedures 16 tablet 0 mycophenolate Mofetil (CELLCEPT) 500 mg tablet Take 1 tablet by mouth twice daily. 60 tablet 3 metoprolol succinate ER (TOPROL XL) 100 mg Take 1 tablet by mouth twice daily. 180 tablet 3 cloNIDine HCl (CATAPRES) 0.1 mg tablet Take 1.5 tablets by mouth twice daily. 270 tablet 3 probenecid 500 mg tablet Take 1 tablet by mouth twice daily. 60 tablet 5 amLODIPine (NORVASC) 5 mg tablet Take 1 tablet by mouth once daily. 90 tablet 1 ergocalciferol 50,000 unit capsule (VITAMIN D2, DRISDOL) Take 1 capsule by mouth one time a week. 12 capsule 0 Cholecalciferol, Vitamin D3, 25 mcg (1,000 unit) cap Take 1 capsule by mouth once daily. metroNIDAZOLE 1 % gel Apply 1 application to affected area once daily. Location: face 60 g 1 triamcinolone acetonide (KENALOG) 0.1 % cream Apply 1 application to affected area twice daily. Apply to affected area. Location: posterior right buttock 45 g 1 traZODone (DESYREL) 50 mg tablet Take 1 tablet by mouth daily at bedtime. prn 30 tablet 1 OTC NUTRITIONAL SUPPLEMENT Take by mouth as directed. 60 capsule 1 Current Facility-Administered Medications Medication Dose Route Frequency Provider Last Rate Last Admin sodium chloride 0.9 % (flush) 10 mL (BD POSIFLUSH) 10 mL INTRAVENOUS DIRECTED PRN Caitlin Shahid MD ALLERGIES Allergen Reactions Vicodin [Hydrocodon* Anaphylaxis stopped breathing Hibiscus Hives, Shortness of Breath Percocet [Oxycodone* Shortness of Breath Pt states he dosent have a allergy to percocet Valsartan Intolerance Cramps in legs, muscle pain REVIEW OF SYSTEMS: PAIN ASSESSMENT: Negative for pain, history of chronic pain, or current treatment for a chronic pain condition. GENERAL: No weight loss, malaise or fevers RESPIRATORY: Negative for cough, hemoptysis, wheezing, COPD, dyspnea or shortness of breath CARDIOVASCULAR: Negative for chest pain, leg swelling, hypertension, CHF or palpitations GI: See HPI : No history of dysuria, frequency or incontinence PHYSICAL FINDINGS OF NOTE: General Normal, healthy, cooperative, in no acute distress Able to interact verbally by video conference Psych ORIENTATION: normal to time place, person and situation Mood/Affect: AFFECT AND MOOD: Normal Head/Neuro Normal size and shape Facial appearance normal Pulmonary respiratory effort normal Cardiovascular patient describes extremities normal, warm, no cyanosis,no clubbing and no edema Abdominal Not performed Skin abnormal lesions not visualized Motor patient seen sitting with Normal appearing strength and coordination Anorectal exam Not Performed REVIEWED ITEMS CT Liver 07/2021 Liver enzymes 09/2021 EGD 01/2021 IMPRESSION 71 yo male with PMH autoimmune hepatitis with bridging fibrosis and chronic inflammation on recent biopsy currently being treated with tacrolimus, MMF, and ursodiol, HTN, HCM w/ syncope s/p ICD in 2012 who presents for follow-up. Noted some improvement in GI symptoms with cutting back ursodiol and change in diet. With half dose ursodiol, no real change in liver enzymes. We had intended to cut back MMF to see if this improved his GI symptoms; currently on MMF 1000 mg PO BID and tacrolimus 1 mg PO q12h. RECOMMENDATION: Stop ursodiol entirely due to GI side effects Continue MMF 1000 mg PO BID and tacrolimus 1 mg q12h Add night time PPI - omeprazole with instructions on timing of medication Trial of low FODMAP diet Labs and RV in December 2021 Imaging due in January 2022 - will coordinate I spent more than 40 minutes [id number] with the patient and over half the time was devoted to counseling and/or coordination of care. Hemalatha Bear MD documented in this encounter [facility] 10-09-2021 Miscellaneous Notes Called Mateus Barth to remind them of an appointment with Dr. Bear on 10/13/2021. Left Message for patient. documented in this encounter [facility] 09-09-2021 Miscellaneous Notes Patient has been identified by name and date of : Yes Patient phones for refill(s): Pending Prescriptions Disp Refills AMOXICILLIN 500 MG TABLET 8 tablet 5 Si mg by mouth 1-2 hours prior to dental procedures RAYSA: No Date of last office visit in primary care: RUSTAM 04/16/2021 Appointment scheduled for 10/15/2021 Amoxicillin previously prescribed by Dr. Orr in 2019 for dental procedures. Please see the patient message regarding upcoming bridge work. Last 2 Encounter Wt Readings: Date: Wt: 04/16/2021 82.6 kg (182 lb) 02/06/2021 83 kg (183 lb) Please advise. Thank you. SOLEDAD Alexandre documented in this encounter [facility] 07-31-2021 History of Present illness Narrative Radiology Service Progress Note PATIENT NAME: Mateus Barth DATE OF SERVICE: July 31, 2021 TIME: 1:36 PM PATIENT IDENTITY VERIFICATION COMPLETED USING TWO (2) IDENTIFIERS: Name and Date of confirmed by patient verbally. FALL SCREENING: Has the patient had 2 falls in the last year or 1 fall with injury or currently using an Ambulatory Assistive Device (Walker, Cane, Wheelchair, Crutches, etc.)? No PATIENT GENDER DATA: Male PATIENT RELEVANT IMPLANT DATA REVIEWED: Yes RADIOLOGY DEPARTMENT: CT; Exam(s) Completed: Liver PERIPHERAL IV DATA: Site assessment: Clean,Dry and Intact, Site disposition Discontinued SIGNED BY: RT Anamaria(R) July 31, 2021 1:36 PM Radiology Service Progress Note DATE OF SERVICE: July 31, 2021 TIME: 12:56 PM PATIENT WEIGHT: LBS PATIENT IDENTITY VERIFICATION COMPLETED USING TWO (2) STANDARD IDENTIFIERS: Name and Date of confirmed by patient verbally and Name and Date of confirmed by identification band. FALL SCREENING: Has the patient had 2 falls in the last year or 1 fall with injury or currently using an Ambulatory Assistive Device (Walker, Cane, Wheelchair, Crutches, etc.)? No PATIENT GENDER DATA: Male ALLERGIES: Reviewed and unchanged CONTRAST ALLERGY: No EXAM: CT -CONTRAST INDUCED NEPHROPATHY RISK FACTORS: Patient age > 60 years and History of Kidney surgery, Kidney neoplasm, Liver disease, and/or any recent Nephrotoxic Chemotherapy or other Nephrotoxic medications CREATININE: Creatinine Date Value Ref Range Status 06/20/2021 1.18 0.73 - 1.22 mg/dL Final 12/25/2020 1.13 0.73 - 1.22 mg/dL Final 10/18/2020 1.31 (H) 0.73 - 1.22 mg/dL Final Estimated Glomerular Filtration Rate Date Value Ref Range Status 06/20/2021 65 >=60 mL/min/1.73m Final Comment: Estimated Glomerular Filtration Rate (eGFR) is calculated using the 2020 CKD-EPI creatinine equation. This equation utilizes serum creatinine, sex, and age as parameters. The creatinine assay has traceable calibration to isotope dilution-mass spectrometry. Refer to KDIGO guidelines for clinical interpretation. In patients with unstable renal function, e.g. those with acute kidney injury, the eGFR may not accurately reflect actual GFR. eGFR- Date Value Ref Range Status 12/25/2020 >60 Final P.O.C.T. RESULTS: N/A July 31, 2021 TREATMENT: N/A and No Hydration needed. IV SITE: Ambulatory: A peripheral IV was started in the Left antecubital site with a Angio cath: 20 gauge. and A Saline lock was inserted per protocol IV SITE APPEARANCE: Clean,Dry and Intact SIGNATURE: Riddhi Musa RN PATIENT NAME: Mateus Barth DATE: July 31, 2021 TIME: 12:56 PM documented in this encounter [facility] 07-21-2021 Note HNO ID: [id number] Author: SOLEDAD Ch Service: Radiology Author Type: Technologist Type: Progress Notes Filed: 07/21/2021 9:13 AM Note Text: Radiology Service Progress Note PATIENT NAME: Mateus Barth DATE OF SERVICE: July 21, 2021 TIME: 9:13 AM PATIENT IDENTITY VERIFICATION COMPLETED USING TWO (2) IDENTIFIERS: Name and Date of confirmed by patient verbally. FALL SCREENING: Has the patient had 2 falls in the last year or 1 fall with injury or currently using an Ambulatory Assistive Device (Walker, Cane, Wheelchair, Crutches, etc.)? No PATIENT GENDER DATA: Female. status: : No status: NO. PATIENT RELEVANT IMPLANT DATA REVIEWED: Not Applicable RADIOLOGY DEPARTMENT: Ultrasound PERIPHERAL IV DATA: Not applicable SIGNED BY: SOLEDAD Ch July 21, 2021 9:13 AM [facility] 07-21-2021 History of Present illness Narrative Radiology Service Progress Note PATIENT NAME: Mateus Barth DATE OF SERVICE: July 21, 2021 TIME: 9:13 AM PATIENT IDENTITY VERIFICATION COMPLETED USING TWO (2) IDENTIFIERS: Name and Date of confirmed by patient verbally. FALL SCREENING: Has the patient had 2 falls in the last year or 1 fall with injury or currently using an Ambulatory Assistive Device (Walker, Cane, Wheelchair, Crutches, etc.)? No PATIENT GENDER DATA: Female. status: : No status: NO. PATIENT RELEVANT IMPLANT DATA REVIEWED: Not Applicable RADIOLOGY DEPARTMENT: Ultrasound PERIPHERAL IV DATA: Not applicable SIGNED BY: SOLEDAD Ch July 21, 2021 9:13 AM documented in this encounter [facility] 06-24-2021 History of Present illness Narrative VIRTUAL VISIT FOLLOW UP I had a virtual visit with Mr. Barth today for follow up of autoimmune hepatitis with cirrhosis. UPDATED HISTORY: - last seen in clinic in 12/2020 - last EGD 01/2021, last US 01/2021 - last labs 06/2021 - had issues filling ursodiol, working to escalate to home delivery pharmacy to resolve this issue - has ongoing issues with abdominal cramping and diarrhea, does affect his ability to tolerate meals, is concerned that it affects his ability to feel comfortable traveling and being out of the home - for the last 1-1.5 months he has been feeling better, did have a 16 day break from ursodiol but was feeling better before this medication was interrupted - now having some GI distress as he is resuming ursodiol but tolerates it well 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 S/P ICD (internal cardiac defibrillator) procedure 03/09/2017 Sensorineural hearing loss Syncope Trochanteric bursitis of right hip PAST SURGICAL HISTORY Procedure Laterality Date COLONOSCOPY FLX DX W/COLLJ SPEC WHEN PFRMD 2010 [place] of state COLONOSCOPY GEN ANES 04/15/2020 HERNIA REPAIR HX 01/2016 Double PACEMAKER PAST SURGICAL HISTORY OF Left 02/2015 orthoscopic left shoulder PAST SURGICAL HISTORY OF Right 2000 surgery in 1999---orthoscopic in 1992 PAST SURGICAL HISTORY OF 02/2014 Back surgery PAST SURGICAL HISTORY OF Hemilaminectomy with disc removal one lumbar interspace PAST SURGICAL HISTORY OF knee arthroscopy FAMILY HISTORY Problem Relation Age of Onset Heart Father Hypertension Father Heart Paternal Uncle suddenly at age 40's, 2 other uncles suddenly Cancer Brother lung Heart disease Brother pacemaker. cardiac ablation Alcohol/Drug Brother No Known Problems Son Social History Tobacco Use Smoking status: Former Smoker Types: Cigars Quit date: 07/06/2019 Years since quittin.9 Smokeless tobacco: Never Used Tobacco comment: 07/14/17: occasional cigar + 2 cigarettes per week Vaping Use Vaping Use: Never used Substance Use Topics Alcohol use: Not Currently Alcohol/week: 2.5 standard drinks Types: 1 Glasses of Wine (5oz) per week Drug use: Yes Types: Marijuana Comment: medical marijuana Current Outpatient Medications Medication Sig Dispense Refill cloNIDine HCl (CATAPRES) 0.1 mg tablet Take 1.5 tablets by mouth twice daily. 270 tablet 3 mycophenolate Mofetil (CELLCEPT) 500 mg tablet Take 1 tablet by mouth twice daily. 60 tablet 3 ursodiol (ACTIGALL) 300 mg capsule Take 1 capsule by mouth twice daily. 180 capsule 0 Sppgpxtj9-Eygdaw9-Uzgey therm. (VSL#3) 112.5 billion cell cap Take 1 capsule by mouth once daily. 90 capsule 1 probenecid 500 mg tablet Take 1 tablet by mouth twice daily. 60 tablet 5 amLODIPine (NORVASC) 5 mg tablet Take 1 tablet by mouth once daily. 90 tablet 1 ergocalciferol 50,000 unit capsule (VITAMIN D2, DRISDOL) Take 1 capsule by mouth one time a week. 12 capsule 0 Cholecalciferol, Vitamin D3, 25 mcg (1,000 unit) cap Take 1 capsule by mouth once daily. metroNIDAZOLE 1 % gel Apply 1 application to affected area once daily. Location: face 60 g 1 tacrolimus IR (PROGRAF) 1 mg capsule Take 1 capsule by mouth twice daily. 60 capsule 5 triamcinolone acetonide (KENALOG) 0.1 % cream Apply 1 application to affected area twice daily. Apply to affected area. Location: posterior right buttock 45 g 1 traZODone (DESYREL) 50 mg tablet Take 1 tablet by mouth daily at bedtime. prn 30 tablet 1 metoprolol succinate ER (TOPROL XL) 100 mg Take 1 tablet by mouth twice daily. 180 tablet 3 OTC NUTRITIONAL SUPPLEMENT Take by mouth as directed. 60 capsule 1 Amoxicillin 500 mg tablet 2000 mg by mouth 1-2 hours prior to dental procedures 8 tablet 5 Current Facility-Administered Medications Medication Dose Route Frequency Provider Last Rate Last Admin sodium chloride 0.9 % (flush) 10 mL (BD POSIFLUSH) 10 mL INTRAVENOUS DIRECTED PRN Caitlin Shahid MD ALLERGIES Allergen Reactions Vicodin [Hydrocodon* Anaphylaxis stopped breathing Hibiscus Hives, Shortness of Breath Percocet [Oxycodone* Shortness of Breath Pt states he dosent have a allergy to percocet Valsartan Intolerance Cramps in legs, muscle pain REVIEW OF SYSTEMS: PAIN ASSESSMENT: Negative for pain, history of chronic pain, or current treatment for a chronic pain condition. GENERAL: No weight loss, malaise or fevers RESPIRATORY: Negative for cough, hemoptysis, wheezing, COPD, dyspnea or shortness of breath CARDIOVASCULAR: Negative for chest pain, leg swelling, hypertension, CHF or palpitations GI: See HPI : No history of dysuria, frequency or incontinence PHYSICAL FINDINGS OF NOTE: General Normal, healthy, cooperative, in no acute distress Able to interact verbally by video conference Psych ORIENTATION: normal to time place, person and situation Mood/Affect: AFFECT AND MOOD: Normal Head/Neuro Normal size and shape Facial appearance normal Pulmonary respiratory effort normal Cardiovascular patient describes extremities normal, warm, no cyanosis,no clubbing and no edema Abdominal Not performed Skin abnormal lesions not visualized Motor patient seen sitting with Normal appearing strength and coordination Anorectal exam Not Performed REVIEWED ITEMS EGD 01/2021 Impression: - Z-line irregular, 42 cm from the incisors. - Grade I esophageal varices. - Portal hypertensive gastropathy. - Normal examined duodenum. - No specimens collected. US Liver 01/2021 IMPRESSION: PATENT HEPATIC VASCULATURE WITH APPROPRIATELY DIRECTED FLOW. CIRRHOTIC LIVER MORPHOLOGY. SPLENOMEGALY. MELD-Na 10 from 06/2020 IMPRESSION 71 yo male with PMH autoimmune hepatitis with bridging fibrosis and chronic inflammation on recent biopsy currently being treated with tacrolimus, MMF, and ursodiol, HTN, HCM w/ syncope s/p ICD in 2012 who presents for follow-up. Liver biopsy from 08/20/2019 showing portal HTN with HVPG 7; biopsy showing at least bridging fibrosis with concern for sampling error in setting of multiple imaging studies showing cirrhotic liver morphology. Ongoing evidence of chronic inflammation; no other etiology noted based on this biopsy. Refractory inflammation in spite of third line agents being used, though overall enzymes seem to be improving on current regimen of tacrolimus 1 mg q12h, mycophenolate 500 mg PO BID, and ursodiol 300 mg PO BID. Continues to have significant GI distress, suspect from MMF, so will dose reduce to assess for improvement in GI symptoms. If marked improvement, will need to repeat labs to ensure AIH is not under worse control, and pending those results, will need to discuss discontinuation of MMF entirely vs continuing at lower dose. RECOMMENDATION: - Cut back cellcept to 500 mg PO QHS, continue tacro 1 mg q12 and ursodiol 300 mg BID - LVUS in July 2021 - EGD done in 01/2021, has small varices, already on beta david with metoprolol with resting HR in 50s, will email cardiology to see if metop could be changed to coreg from a portal HTN perspective - Liver enzymes and vitamin D (currently on high dose supplementation) in September with RV after these results are back - no ascites - no HE I spent more than 40 minutes [id number] with the patient and over half the time was devoted to counseling and/or coordination of care. Hemalatha Bear MD documented in this encounter [facility] 06-20-2021 Miscellaneous Notes Called Mateus Barth to remind them of an appointment with Dr. Bear on 06/24/2021. Left Message for patient. documented in this encounter [facility] 06-16-2021 Miscellaneous Notes Call from pharmacy requesting refill. Pending Prescriptions Disp Refills CLONIDINE HCL 0.1 MG TABLET 270 tablet 3 Sig: Take 1.5 tablets by mouth twice daily. RAYSA: No Patient last seen 11/19/2020 [facility] documented in this encounter [facility] 02-12-2021 Note HNO ID: [id number] Author: SOLEDAD Jackson Service: Radiology Author Type: Technologist Type: Progress Notes Filed: 02/12/2021 4:31 PM Note Text: Radiology Service Progress Note PATIENT NAME: Mateus Barth DATE OF SERVICE: February 12, 2021 TIME: 4:30 PM PATIENT IDENTITY VERIFICATION COMPLETED USING TWO (2) IDENTIFIERS: Name and Date of confirmed by patient verbally and Name and Date of confirmed by identification band. FALL SCREENING: Has the patient had 2 falls in the last year or 1 fall with injury or currently using an Ambulatory Assistive Device (Walker, Cane, Wheelchair, Crutches, etc.)? No PATIENT GENDER DATA: Male PATIENT RELEVANT IMPLANT DATA REVIEWED: Not Applicable RADIOLOGY DEPARTMENT: Ultrasound PERIPHERAL IV DATA: Not applicable SIGNED BY: Viola Hebert, SOLEDAD February 12, 2021 4:30 PM [facility] documented as of this encounter (statuses as of 06/16/2021) 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) 11/23/2018 12/02/2019 Controlled type 2 diabetes m ellitus without complication, without long-term current use of insulin 04/21/2018 08/29/2019 Elevated liver function tests 04/21/2018 Shoulder arthritis 06/02/2017 08/29/2019 OA (osteoarthritis) of shoulder 05/24/2017 08/29/2019 Overview: Added automatically from request for surgery [id number] Biceps tendinopathy 05/24/2017 10/11/2017 Overview: Added automatically from request for surgery [id number] Rotator cuff tear 05/24/2017 10/11/2017 Overview: Added automatically from request for surgery [id number] Rotator cuff arthropathy, left 03/09/2017 0 10/11/2017 Overview: 2017: Tear left biceps tendon documented as of this encounter (statuses as of 06/20/2021) 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) 11/23/2018 12/02/2019 Controlled type 2 diabetes m ellitus without complication, without long-term current use of insulin 04/21/2018 08/29/2019 Elevated liver function tests 04/21/2018 Shoulder arthritis 06/02/2017 08/29/2019 OA (osteoarthritis) of shoulder 05/24/2017 08/29/2019 Overview: Added automatically from request for surgery [id number] Biceps tendinopathy 05/24/2017 10/11/2017 Overview: Added automatically from request for surgery [id number] Rotator cuff tear 05/24/2017 10/11/2017 Overview: Added automatically from request for surgery [id number] Rotator cuff arthropathy, left 03/09/2017 0 10/11/2017 Overview: 2017: Tear left biceps tendon documented as of this encounter (statuses as of 06/24/2021) 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) 11/23/2018 12/02/2019 Controlled type 2 diabetes m ellitus without complication, without long-term current use of insulin 04/21/2018 08/29/2019 Elevated liver function tests 04/21/2018 Shoulder arthritis 06/02/2017 08/29/2019 OA (osteoarthritis) of shoulder 05/24/2017 08/29/2019 Overview: Added automatically from request for surgery [id number] Biceps tendinopathy 05/24/2017 10/11/2017 Overview: Added automatically from request for surgery [id number] Rotator cuff tear 05/24/2017 10/11/2017 Overview: Added automatically from request for surgery [id number] Rotator cuff arthropathy, left 03/09/2017 0 10/11/2017 Overview: 2017: Tear left biceps tendon documented as of this encounter (statuses as of 06/25/2021) 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) 11/23/2018 12/02/2019 Controlled type 2 diabetes m ellitus without complication, without long-term current use of insulin 04/21/2018 08/29/2019 Elevated liver function tests 04/21/2018 Shoulder arthritis 06/02/2017 08/29/2019 OA (osteoarthritis) of shoulder 05/24/2017 08/29/2019 Overview: Added automatically from request for surgery [id number] Biceps tendinopathy 05/24/2017 10/11/2017 Overview: Added automatically from request for surgery [id number] Rotator cuff tear 05/24/2017 10/11/2017 Overview: Added automatically from request for surgery [id number] Rotator cuff arthropathy, left 03/09/2017 0 10/11/2017 Overview: 2017: Tear left biceps tendon documented as of this encounter (statuses as of 06/30/2021) 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) 11/23/2018 12/02/2019 Controlled type 2 diabetes m ellitus without complication, without long-term current use of insulin 04/21/2018 08/29/2019 Elevated liver function tests 04/21/2018 Shoulder arthritis 06/02/2017 08/29/2019 OA (osteoarthritis) of shoulder 05/24/2017 08/29/2019 Overview: Added automatically from request for surgery [id number] Biceps tendinopathy 05/24/2017 10/11/2017 Overview: Added automatically from request for surgery [id number] Rotator cuff tear 05/24/2017 10/11/2017 Overview: Added automatically from request for surgery [id number] Rotator cuff arthropathy, left 03/09/2017 0 10/11/2017 Overview: 2017: Tear left biceps tendon documented as of this encounter (statuses as of 07/08/2021) 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) 11/23/2018 12/02/2019 Controlled type 2 diabetes m braxton without complication, without long-term current use of insulin 04/21/2018 08/29/2019 Elevated liver function tests 04/21/2018 Shoulder arthritis 06/02/2017 08/29/2019 OA (osteoarthritis) of shoulder 05/24/2017 08/29/2019 Overview: Added automatically from request for surgery [id number] Biceps tendinopathy 05/24/2017 10/11/2017 Overview: Added automatically from request for surgery [id number] Rotator cuff tear 05/24/2017 10/11/2017 Overview: Added automatically from request for surgery [id number] Rotator cuff arthropathy, left 03/09/2017 0 10/11/2017 Overview: 2017: Tear left biceps tendon documented as of this encounter (statuses as of 07/22/2021) 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) 11/23/2018 12/02/2019 Controlled type 2 diabetes m ellitus without complication, without long-term current use of insulin 04/21/2018 08/29/2019 Elevated liver function tests 04/21/2018 Shoulder arthritis 06/02/2017 08/29/2019 OA (osteoarthritis) of shoulder 05/24/2017 08/29/2019 Overview: Added automatically from request for surgery [id number] Biceps tendinopathy 05/24/2017 10/11/2017 Overview: Added automatically from request for surgery [id number] Rotator cuff tear 05/24/2017 10/11/2017 Overview: Added automatically from request for surgery [id number] Rotator cuff arthropathy, left 03/09/2017 0 10/11/2017 Overview: 2017: Tear left biceps tendon documented as of this encounter (statuses as of 07/22/2021) 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) 11/23/2018 12/02/2019 Controlled type 2 diabetes m ellitus without complication, without long-term current use of insulin 04/21/2018 08/29/2019 Elevated liver function tests 04/21/2018 Shoulder arthritis 06/02/2017 08/29/2019 OA (osteoarthritis) of shoulder 05/24/2017 08/29/2019 Overview: Added automatically from request for surgery [id number] Biceps tendinopathy 05/24/2017 10/11/2017 Overview: Added automatically from request for surgery [id number] Rotator cuff tear 05/24/2017 10/11/2017 Overview: Added automatically from request for surgery [id number] Rotator cuff arthropathy, left 03/09/2017 0 10/11/2017 Overview: 2017: Tear left biceps tendon documented as of this encounter (statuses as of 07/23/2021) 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) 11/23/2018 12/02/2019 Controlled type 2 diabetes m ellitus without complication, without long-term current use of insulin 04/21/2018 08/29/2019 Elevated liver function tests 04/21/2018 Shoulder arthritis 06/02/2017 08/29/2019 OA (osteoarthritis) of shoulder 05/24/2017 08/29/2019 Overview: Added automatically from request for surgery [id number] Biceps tendinopathy 05/24/2017 10/11/2017 Overview: Added automatically from request for surgery [id number] Rotator cuff tear 05/24/2017 10/11/2017 Overview: Added automatically from request for surgery [id number] Rotator cuff arthropathy, left 03/09/2017 0 10/11/2017 Overview: 2017: Tear left biceps tendon documented as of this encounter (statuses as of 08/01/2021) 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) 11/23/2018 12/02/2019 Controlled type 2 diabetes m ellitus without complication, without long-term current use of insulin 04/21/2018 08/29/2019 Elevated liver function tests 04/21/2018 Shoulder arthritis 06/02/2017 08/29/2019 OA (osteoarthritis) of shoulder 05/24/2017 08/29/2019 Overview: Added automatically from request for surgery [id number] Biceps tendinopathy 05/24/2017 10/11/2017 Overview: Added automatically from request for surgery [id number] Rotator cuff tear 05/24/2017 10/11/2017 Overview: Added automatically from request for surgery [id number] Rotator cuff arthropathy, left 03/09/2017 0 10/11/2017 Overview: 2017: Tear left biceps tendon documented as of this encounter (statuses as of 08/05/2021) 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) 11/23/2018 12/02/2019 Controlled type 2 diabetes m ellitus without complication, without long-term current use of insulin 04/21/2018 08/29/2019 Elevated liver function tests 04/21/2018 Shoulder arthritis 06/02/2017 08/29/2019 OA (osteoarthritis) of shoulder 05/24/2017 08/29/2019 Overview: Added automatically from request for surgery [id number] Biceps tendinopathy 05/24/2017 10/11/2017 Overview: Added automatically from request for surgery [id number] Rotator cuff tear 05/24/2017 10/11/2017 Overview: Added automatically from request for surgery [id number] Rotator cuff arthropathy, left 03/09/2017 0 10/11/2017 Overview: 2017: Tear left biceps tendon documented as of this encounter (statuses as of 09/02/2021) 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) 11/23/2018 12/02/2019 Controlled type 2 diabetes m ellitus without complication, without long-term current use of insulin 04/21/2018 08/29/2019 Elevated liver function tests 04/21/2018 Shoulder arthritis 06/02/2017 08/29/2019 OA (osteoarthritis) of shoulder 05/24/2017 08/29/2019 Overview: Added automatically from request for surgery [id number] Biceps tendinopathy 05/24/2017 10/11/2017 Overview: Added automatically from request for surgery [id number] Rotator cuff tear 05/24/2017 10/11/2017 Overview: Added automatically from request for surgery [id number] Rotator cuff arthropathy, left 03/09/2017 0 10/11/2017 Overview: 2017: Tear left biceps tendon documented as of this encounter (statuses as of 09/09/2021) 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) 11/23/2018 12/02/2019 Controlled type 2 diabetes m ellitus without complication, without long-term current use of insulin 04/21/2018 08/29/2019 Elevated liver function tests 04/21/2018 Shoulder arthritis 06/02/2017 08/29/2019 OA (osteoarthritis) of shoulder 05/24/2017 08/29/2019 Overview: Added automatically from request for surgery [id number] Biceps tendinopathy 05/24/2017 10/11/2017 Overview: Added automatically from request for surgery [id number] Rotator cuff tear 05/24/2017 10/11/2017 Overview: Added automatically from request for surgery [id number] Rotator cuff arthropathy, left 03/09/2017 0 10/11/2017 Overview: 2017: Tear left biceps tendon documented as of this encounter (statuses as of 09/24/2021) 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) 11/23/2018 12/02/2019 Controlled type 2 diabetes m ellitus without complication, without long-term current use of insulin 04/21/2018 08/29/2019 Elevated liver function tests 04/21/2018 Shoulder arthritis 06/02/2017 08/29/2019 OA (osteoarthritis) of shoulder 05/24/2017 08/29/2019 Overview: Added automatically from request for surgery [id number] Biceps tendinopathy 05/24/2017 10/11/2017 Overview: Added automatically from request for surgery [id number] Rotator cuff tear 05/24/2017 10/11/2017 Overview: Added automatically from request for surgery [id number] Rotator cuff arthropathy, left 03/09/2017 0 10/11/2017 Overview: 2017: Tear left biceps tendon documented as of this encounter (statuses as of 10/09/2021) 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) 11/23/2018 12/02/2019 Controlled type 2 diabetes m ellitus without complication, without long-term current use of insulin 04/21/2018 08/29/2019 Elevated liver function tests 04/21/2018 Shoulder arthritis 06/02/2017 08/29/2019 OA (osteoarthritis) of shoulder 05/24/2017 08/29/2019 Overview: Added automatically from request for surgery [id number] Biceps tendinopathy 05/24/2017 10/11/2017 Overview: Added automatically from request for surgery [id number] Rotator cuff tear 05/24/2017 10/11/2017 Overview: Added automatically from request for surgery [id number] Rotator cuff arthropathy, left 03/09/2017 0 10/11/2017 Overview: 2017: Tear left biceps tendon documented as of this encounter (statuses as of 10/13/2021) 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) 11/23/2018 12/02/2019 Controlled type 2 diabetes m ellitus without complication, without long-term current use of insulin 04/21/2018 08/29/2019 Elevated liver function tests 04/21/2018 Shoulder arthritis 06/02/2017 08/29/2019 OA (osteoarthritis) of shoulder 05/24/2017 08/29/2019 Overview: Added automatically from request for surgery [id number] Biceps tendinopathy 05/24/2017 10/11/2017 Overview: Added automatically from request for surgery [id number] Rotator cuff tear 05/24/2017 10/11/2017 Overview: Added automatically from request for surgery [id number] Rotator cuff arthropathy, left 03/09/2017 0 10/11/2017 Overview: 2017: Tear left biceps tendon documented as of this encounter (statuses as of 10/16/2021) 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) 11/23/2018 12/02/2019 Controlled type 2 diabetes m ellitus without complication, without long-term current use of insulin 04/21/2018 08/29/2019 Elevated liver function tests 04/21/2018 Shoulder arthritis 06/02/2017 08/29/2019 OA (osteoarthritis) of shoulder 05/24/2017 08/29/2019 Overview: Added automatically from request for surgery [id number] Biceps tendinopathy 05/24/2017 10/11/2017 Overview: Added automatically from request for surgery [id number] Rotator cuff tear 05/24/2017 10/11/2017 Overview: Added automatically from request for surgery [id number] Rotator cuff arthropathy, left 03/09/2017 0 10/11/2017 Overview: 2017: Tear left biceps tendon documented as of this encounter (statuses as of 10/17/2021) 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) 11/23/2018 12/02/2019 Controlled type 2 diabetes m ellitus without complication, without long-term current use of insulin 04/21/2018 08/29/2019 Elevated liver function tests 04/21/2018 Shoulder arthritis 06/02/2017 08/29/2019 OA (osteoarthritis) of shoulder 05/24/2017 08/29/2019 Overview: Added automatically from request for surgery [id number] Biceps tendinopathy 05/24/2017 10/11/2017 Overview: Added automatically from request for surgery [id number] Rotator cuff tear 05/24/2017 10/11/2017 Overview: Added automatically from request for surgery [id number] Rotator cuff arthropathy, left 03/09/2017 0 10/11/2017 Overview: 2017: Tear left biceps tendon documented as of this encounter (statuses as of 10/20/2021) 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) 11/23/2018 12/02/2019 Controlled type 2 diabetes m ellitus without complication, without long-term current use of insulin 04/21/2018 08/29/2019 Elevated liver function tests 04/21/2018 Shoulder arthritis 06/02/2017 08/29/2019 OA (osteoarthritis) of shoulder 05/24/2017 08/29/2019 Overview: Added automatically from request for surgery [id number] Biceps tendinopathy 05/24/2017 10/11/2017 Overview: Added automatically from request for surgery [id number] Rotator cuff tear 05/24/2017 10/11/2017 Overview: Added automatically from request for surgery [id number] Rotator cuff arthropathy, left 03/09/2017 0 10/11/2017 Overview: 2017: Tear left biceps tendon documented as of this encounter (statuses as of 10/23/2021) 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 08/29/2019 12/02/2019 Nausea & vomiting 08/21/2019 08/21/2019 Essential hypertension 08/21/2019 2 Last Assessment & Plan: Assessment: controlled on rx 04/08/20 1556 BP: 126/75 Autoimmune hepatitis treated with steroids 12/0112/22/2021 Last Assessment & Plan: Assessment: following [facility], chronic, stable on rx 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 08/29/2019 12/02/2019 Nausea & vomiting 08/21/2019 08/21/2019 Essential hypertension 08/21/2019 2 Last Assessment & Plan: Assessment: controlled on rx 04/08/20 1556 BP: 126/75 Autoimmune hepatitis treated with steroids 12/0112/22/2021 Last Assessment & Plan: Assessment: following [facility], chronic, stable on rx 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 08/29/2019 12/02/2019 Nausea & vomiting 08/21/2019 08/21/2019 Essential hypertension 08/21/2019 2 Last Assessment & Plan: Assessment: controlled on rx 04/08/20 1556 BP: 126/75 Autoimmune hepatitis treated with steroids 12/0112/22/2021 Last Assessment & Plan: Assessment: following [facility], chronic, stable on rx 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 08/29/2019 12/02/2019 Nausea & vomiting 08/21/2019 08/21/2019 Essential hypertension 08/21/2019 2 Last Assessment & Plan: Assessment: controlled on rx 04/08/20 1556 BP: 126/75 Autoimmune hepatitis treated with steroids 12/0112/22/2021 Last Assessment & Plan: Assessment: following [facility], chronic, stable on rx 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 08/29/2019 12/02/2019 Nausea & vomiting 08/21/2019 08/21/2019 Essential hypertension 08/21/2019 2 Last Assessment & Plan: Assessment: controlled on rx 04/08/20 1556 BP: 126/75 Autoimmune hepatitis treated with steroids 12/0112/22/2021 Last Assessment & Plan: Assessment: following [facility], chronic, stable on rx 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 08/29/2019 12/02/2019 Nausea & vomiting 08/21/2019 08/21/2019 Essential hypertension 08/21/2019 Last Assessment & Plan: Assessment: controlled on rx 04/08/20 1556 BP: 126/75 Autoimmune hepatitis treated with steroids 12/0112/22/2021 Last Assessment & Plan: Assessment: following [facility], chronic, stable on rx 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 08/29/2019 12/02/2019 Nausea & vomiting 08/21/2019 08/21/2019 Essential hypertension 08/21/2019 Last Assessment & Plan: Assessment: controlled on rx 04/08/20 1556 BP: 126/75 Autoimmune hepatitis treated with steroids 12/0112/22/2021 Last Assessment & Plan: Assessment: following [facility], chronic, stable on rx 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 08/29/2019 12/02/2019 Nausea & vomiting 08/21/2019 08/21/2019 Essential hypertension 08/21/2019 2 Last Assessment & Plan: Assessment: controlled on rx 04/08/20 1556 BP: 126/75 Autoimmune hepatitis treated with steroids 12/0112/22/2021 Last Assessment & Plan: Assessment: following [facility], chronic, stable on rx 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 08/29/2019 12/02/2019 Nausea & vomiting 08/21/2019 08/21/2019 Essential hypertension 08/21/2019 Last Assessment & Plan: Assessment: controlled on rx 04/08/20 1556 BP: 126/75 Autoimmune hepatitis treated with steroids 12/0112/22/2021 Last Assessment & Plan: Assessment: following [facility], chronic, stable on rx 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 08/29/2019 12/02/2019 Nausea & vomiting 08/21/2019 08/21/2019 Essential hypertension 08/21/2019 Last Assessment & Plan: Assessment: controlled on rx 04/08/20 1556 BP: 126/75 Autoimmune hepatitis treated with steroids 12/0112/22/2021 Last Assessment & Plan: Assessment: following [facility], chronic, stable on rx 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 08/29/2019 12/02/2019 Nausea & vomiting 08/21/2019 08/21/2019 Essential hypertension 08/21/2019 Last Assessment & Plan: Assessment: controlled on rx 04/08/20 1556 BP: 126/75 Autoimmune hepatitis treated with steroids 12/0112/22/2021 Last Assessment & Plan: Assessment: following [facility], chronic, stable on rx 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 08/29/2019 12/02/2019 Nausea & vomiting 08/21/2019 08/21/2019 Essential hypertension 08/21/2019 2 Last Assessment & Plan: Assessment: controlled on rx 04/08/20 1556 BP: 126/75 Autoimmune hepatitis treated with steroids 12/0112/22/2021 Last Assessment & Plan: Assessment: following [facility], chronic, stable on rx 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 08/29/2019 12/02/2019 Nausea & vomiting 08/21/2019 08/21/2019 Essential hypertension 08/21/2019 2 Last Assessment & Plan: Assessment: controlled on rx 04/08/20 1556 BP: 126/75 Autoimmune hepatitis treated with steroids 12/0112/22/2021 Last Assessment & Plan: Assessment: following [facility], chronic, stable on rx 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 08/29/2019 12/02/2019 Nausea & vomiting 08/21/2019 08/21/2019 Essential hypertension 08/21/2019 2 Last Assessment & Plan: Assessment: controlled on rx 04/08/20 1556 BP: 126/75 Autoimmune hepatitis treated with steroids 12/0112/22/2021 Last Assessment & Plan: Assessment: following [facility], chronic, stable on rx 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 08/29/2019 12/02/2019 Nausea & vomiting 08/21/2019 08/21/2019 Essential hypertension 08/21/2019 2 Last Assessment & Plan: Assessment: controlled on rx 04/08/20 1556 BP: 126/75 Autoimmune hepatitis treated with steroids 12/0112/22/2021 Last Assessment & Plan: Assessment: following [facility], chronic, stable on rx 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 08/29/2019 12/02/2019 Nausea & vomiting 08/21/2019 08/21/2019 Essential hypertension 08/21/2019 Last Assessment & Plan: Assessment: controlled on rx 04/08/20 1556 BP: 126/75 Autoimmune hepatitis treated with steroids 12/0112/22/2021 Last Assessment & Plan: Assessment: following [facility], chronic, stable on rx 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) 11/23/2018 12/02/2019 Elevated liver function tests 04/21/2018 Shoulder arthritis 06/02/2017 08/29/2019 OA (osteoarthritis) of shoulder 05/24/2017 08/29/2019 Overview: Added automatically from request for surgery [id number] Biceps tendinopathy 05/24/2017 10/11/2017 Overview: Added automatically from request for surgery [id number] Rotator cuff tear 05/24/2017 10/11/2017 Overview: Added automatically from request for surgery [id number] Rotator cuff arthropathy, left 03/09/2017 0 10/11/2017 Overview: 2017: Tear left biceps tendon Sciatica 09/29/2011 04/20/2022 documented as of this encounter (statuses as of 04/20/2022) 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 08/29/2019 12/02/2019 Nausea & vomiting 08/21/2019 08/21/2019 Essential hypertension 08/21/2019 Last Assessment & Plan: Assessment: controlled on rx 04/08/20 1556 BP: 126/75 Autoimmune hepatitis treated with steroids 12/0112/22/2021 Last Assessment & Plan: Assessment: following [facility], chronic, stable on rx 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) 11/23/2018 12/02/2019 Elevated liver function tests 04/21/2018 Shoulder arthritis 06/02/2017 08/29/2019 OA (osteoarthritis) of shoulder 05/24/2017 08/29/2019 Overview: Added automatically from request for surgery [id number] Biceps tendinopathy 05/24/2017 10/11/2017 Overview: Added automatically from request for surgery [id number] Rotator cuff tear 05/24/2017 10/11/2017 Overview: Added automatically from request for surgery [id number] Rotator cuff arthropathy, left 03/09/2017 0 10/11/2017 Overview: 2017: Tear left biceps tendon Sciatica 09/29/2011 04/20/2022 documented as of this encounter (statuses as of 04/20/2022) 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 08/29/2019 12/02/2019 Nausea & vomiting 08/21/2019 08/21/2019 Essential hypertension 08/21/2019 Last Assessment & Plan: Assessment: controlled on rx 04/08/20 1556 BP: 126/75 Autoimmune hepatitis treated with steroids 12/0112/22/2021 Last Assessment & Plan: Assessment: following [facility], chronic, stable on rx 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) 11/23/2018 12/02/2019 Elevated liver function tests 04/21/2018 Shoulder arthritis 06/02/2017 08/29/2019 OA (osteoarthritis) of shoulder 05/24/2017 08/29/2019 Overview: Added automatically from request for surgery [id number] Biceps tendinopathy 05/24/2017 10/11/2017 Overview: Added automatically from request for surgery [id number] Rotator cuff tear 05/24/2017 10/11/2017 Overview: Added automatically from request for surgery [id number] Rotator cuff arthropathy, left 03/09/2017 0 10/11/2017 Overview: 2017: Tear left biceps tendon Sciatica 09/29/2011 04/20/2022 documented as of this encounter (statuses as of 05/20/2022) 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 08/29/2019 12/02/2019 Nausea & vomiting 08/21/2019 08/21/2019 Essential hypertension 08/21/2019 Last Assessment & Plan: Assessment: controlled on rx 04/08/20 1556 BP: 126/75 Autoimmune hepatitis treated with steroids 12/0112/22/2021 Last Assessment & Plan: Assessment: following [facility], chronic, stable on rx 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) 11/23/2018 12/02/2019 Elevated liver function tests 04/21/2018 Shoulder arthritis 06/02/2017 08/29/2019 OA (osteoarthritis) of shoulder 05/24/2017 08/29/2019 Overview: Added automatically from request for surgery [id number] Biceps tendinopathy 05/24/2017 10/11/2017 Overview: Added automatically from request for surgery [id number] Rotator cuff tear 05/24/2017 10/11/2017 Overview: Added automatically from request for surgery [id number] Rotator cuff arthropathy, left 03/09/2017 0 10/11/2017 Overview: 2017: Tear left biceps tendon Sciatica 09/29/2011 04/20/2022 documented as of this encounter (statuses as of 05/20/2022) 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 08/29/2019 12/02/2019 Nausea & vomiting 08/21/2019 08/21/2019 Essential hypertension 08/21/2019 Last Assessment & Plan: Assessment: controlled on rx 04/08/20 1556 BP: 126/75 Autoimmune hepatitis treated with steroids 12/0112/22/2021 Last Assessment & Plan: Assessment: following [facility], chronic, stable on rx 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) 11/23/2018 12/02/2019 Elevated liver function tests 04/21/2018 Shoulder arthritis 06/02/2017 08/29/2019 OA (osteoarthritis) of shoulder 05/24/2017 08/29/2019 Overview: Added automatically from request for surgery [id number] Biceps tendinopathy 05/24/2017 10/11/2017 Overview: Added automatically from request for surgery [id number] Rotator cuff tear 05/24/2017 10/11/2017 Overview: Added automatically from request for surgery [id number] Rotator cuff arthropathy, left 03/09/2017 0 10/11/2017 Overview: 2017: Tear left biceps tendon Sciatica 09/29/2011 04/20/2022 documented as of this encounter (statuses as of 05/20/2022) 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 08/29/2019 12/02/2019 Nausea & vomiting 08/21/2019 08/21/2019 Essential hypertension 08/21/2019 Last Assessment & Plan: Assessment: controlled on rx 04/08/20 1556 BP: 126/75 Autoimmune hepatitis treated with steroids 12/0112/22/2021 Last Assessment & Plan: Assessment: following [facility], chronic, stable on rx 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) 11/23/2018 12/02/2019 Elevated liver function tests 04/21/2018 Shoulder arthritis 06/02/2017 08/29/2019 OA (osteoarthritis) of shoulder 05/24/2017 08/29/2019 Overview: Added automatically from request for surgery [id number] Biceps tendinopathy 05/24/2017 10/11/2017 Overview: Added automatically from request for surgery [id number] Rotator cuff tear 05/24/2017 10/11/2017 Overview: Added automatically from request for surgery [id number] Rotator cuff arthropathy, left 03/09/2017 0 10/11/2017 Overview: 2017: Tear left biceps tendon Sciatica 09/29/2011 04/20/2022 documented as of this encounter (statuses as of 05/22/2022) 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 08/29/2019 12/02/2019 Nausea & vomiting 08/21/2019 08/21/2019 Essential hypertension 08/21/2019 Last Assessment & Plan: Assessment: controlled on rx 04/08/20 1556 BP: 126/75 Autoimmune hepatitis treated with steroids 12/0112/22/2021 Last Assessment & Plan: Assessment: following [facility], chronic, stable on rx 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) 11/23/2018 12/02/2019 Elevated liver function tests 04/21/2018 Shoulder arthritis 06/02/2017 08/29/2019 OA (osteoarthritis) of shoulder 05/24/2017 08/29/2019 Overview: Added automatically from request for surgery [id number] Biceps tendinopathy 05/24/2017 10/11/2017 Overview: Added automatically from request for surgery [id number] Rotator cuff tear 05/24/2017 10/11/2017 Overview: Added automatically from request for surgery [id number] Rotator cuff arthropathy, left 03/09/2017 0 10/11/2017 Overview: 2017: Tear left biceps tendon Sciatica 09/29/2011 04/20/2022 documented as of this encounter (statuses as of 05/22/2022) 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 08/29/2019 12/02/2019 Nausea & vomiting 08/21/2019 08/21/2019 Essential hypertension 08/21/2019 Last Assessment & Plan: Assessment: controlled on rx 04/08/20 1556 BP: 126/75 Autoimmune hepatitis treated with steroids 12/0112/22/2021 Last Assessment & Plan: Assessment: following [facility], chronic, stable on rx 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) 11/23/2018 12/02/2019 Elevated liver function tests 04/21/2018 Shoulder arthritis 06/02/2017 08/29/2019 OA (osteoarthritis) of shoulder 05/24/2017 08/29/2019 Overview: Added automatically from request for surgery [id number] Biceps tendinopathy 05/24/2017 10/11/2017 Overview: Added automatically from request for surgery [id number] Rotator cuff tear 05/24/2017 10/11/2017 Overview: Added automatically from request for surgery [id number] Rotator cuff arthropathy, left 03/09/2017 0 10/11/2017 Overview: 2017: Tear left biceps tendon Sciatica 09/29/2011 04/20/2022 documented as of this encounter (statuses as of 05/25/2022) 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 08/29/2019 12/02/2019 Nausea & vomiting 08/21/2019 08/21/2019 Essential hypertension 08/21/2019 Last Assessment & Plan: Assessment: controlled on rx 04/08/20 1556 BP: 126/75 Autoimmune hepatitis treated with steroids 12/0112/22/2021 Last Assessment & Plan: Assessment: following [facility], chronic, stable on rx 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) 11/23/2018 12/02/2019 Elevated liver function tests 04/21/2018 Shoulder arthritis 06/02/2017 08/29/2019 OA (osteoarthritis) of shoulder 05/24/2017 08/29/2019 Overview: Added automatically from request for surgery [id number] Biceps tendinopathy 05/24/2017 10/11/2017 Overview: Added automatically from request for surgery [id number] Rotator cuff tear 05/24/2017 10/11/2017 Overview: Added automatically from request for surgery [id number] Rotator cuff arthropathy, left 03/09/2017 0 10/11/2017 Overview: 2017: Tear left biceps tendon Sciatica 09/29/2011 04/20/2022 documented as of this encounter (statuses as of 06/08/2022) 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 08/29/2019 12/02/2019 Nausea & vomiting 08/21/2019 08/21/2019 Essential hypertension 08/21/2019 Last Assessment & Plan: Assessment: controlled on rx 04/08/20 1556 BP: 126/75 Autoimmune hepatitis treated with steroids 12/0112/22/2021 Last Assessment & Plan: Assessment: following [facility], chronic, stable on rx 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) 11/23/2018 12/02/2019 Elevated liver function tests 04/21/2018 Shoulder arthritis 06/02/2017 08/29/2019 OA (osteoarthritis) of shoulder 05/24/2017 08/29/2019 Overview: Added automatically from request for surgery [id number] Biceps tendinopathy 05/24/2017 10/11/2017 Overview: Added automatically from request for surgery [id number] Rotator cuff tear 05/24/2017 10/11/2017 Overview: Added automatically from request for surgery [id number] Rotator cuff arthropathy, left 03/09/2017 0 10/11/2017 Overview: 2017: Tear left biceps tendon Sciatica 09/29/2011 04/20/2022 documented as of this encounter (statuses as of 06/09/2022) 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 08/29/2019 12/02/2019 Nausea & vomiting 08/21/2019 08/21/2019 Essential hypertension 08/21/2019 2 Last Assessment & Plan: Assessment: controlled on rx 04/08/20 1556 BP: 126/75 Autoimmune hepatitis treated with steroids 12/0112/22/2021 Last Assessment & Plan: Assessment: following [facility], chronic, stable on rx 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) 11/23/2018 12/02/2019 Elevated liver function tests 04/21/2018 Shoulder arthritis 06/02/2017 08/29/2019 OA (osteoarthritis) of shoulder 05/24/2017 08/29/2019 Overview: Added automatically from request for surgery [id number] Biceps tendinopathy 05/24/2017 10/11/2017 Overview: Added automatically from request for surgery [id number] Rotator cuff tear 05/24/2017 10/11/2017 Overview: Added automatically from request for surgery [id number] Rotator cuff arthropathy, left 03/09/2017 0 10/11/2017 Overview: 2017: Tear left biceps tendon Sciatica 09/29/2011 04/20/2022 documented as of this encounter (statuses as of 06/10/2022) 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 08/29/2019 12/02/2019 Nausea & vomiting 08/21/2019 08/21/2019 Essential hypertension 08/21/2019 Last Assessment & Plan: Assessment: controlled on rx 04/08/20 1556 BP: 126/75 Autoimmune hepatitis treated with steroids 12/0112/22/2021 Last Assessment & Plan: Assessment: following [facility], chronic, stable on rx 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) 11/23/2018 12/02/2019 Elevated liver function tests 04/21/2018 Shoulder arthritis 06/02/2017 08/29/2019 OA (osteoarthritis) of shoulder 05/24/2017 08/29/2019 Overview: Added automatically from request for surgery [id number] Biceps tendinopathy 05/24/2017 10/11/2017 Overview: Added automatically from request for surgery [id number] Rotator cuff tear 05/24/2017 10/11/2017 Overview: Added automatically from request for surgery [id number] Rotator cuff arthropathy, left 03/09/2017 0 10/11/2017 Overview: 2017: Tear left biceps tendon Sciatica 09/29/2011 04/20/2022 documented as of this encounter (statuses as of 06/25/2022) 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 08/29/2019 12/02/2019 Nausea & vomiting 08/21/2019 08/21/2019 Autoimmune hepatitis treated with steroids 12/0112/22/2021 Last Assessment & Plan: Assessment: following [facility], chronic, stable on rx 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) 11/23/2018 12/02/2019 Elevated liver function tests 04/21/2018 Shoulder arthritis 06/02/2017 08/29/2019 OA (osteoarthritis) of shoulder 05/24/2017 08/29/2019 Overview: Added automatically from request for surgery [id number] Biceps tendinopathy 05/24/2017 10/11/2017 Overview: Added automatically from request for surgery [id number] Rotator cuff tear 05/24/2017 10/11/2017 Overview: Added automatically from request for surgery [id number] Rotator cuff arthropathy, left 03/09/2017 0 10/11/2017 Overview: 2017: Tear left biceps tendon Sciatica 09/29/2011 04/20/2022 documented as of this encounter (statuses as of 07/14/2022) 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 08/29/2019 12/02/2019 Nausea & vomiting 08/21/2019 08/21/2019 Autoimmune hepatitis treated with steroids 12/0112/22/2021 Last Assessment & Plan: Assessment: following [facility], chronic, stable on rx 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) 11/23/2018 12/02/2019 Elevated liver function tests 04/21/2018 Shoulder arthritis 06/02/2017 08/29/2019 OA (osteoarthritis) of shoulder 05/24/2017 08/29/2019 Overview: Added automatically from request for surgery [id number] Biceps tendinopathy 05/24/2017 10/11/2017 Overview: Added automatically from request for surgery [id number] Rotator cuff tear 05/24/2017 10/11/2017 Overview: Added automatically from request for surgery [id number] Rotator cuff arthropathy, left 03/09/2017 0 10/11/2017 Overview: 2017: Tear left biceps tendon Sciatica 09/29/2011 04/20/2022 documented as of this encounter (statuses as of 09/18/2022) 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 08/29/2019 12/02/2019 Nausea & vomiting 08/21/2019 08/21/2019 Autoimmune hepatitis treated with steroids 12/0112/22/2021 Last Assessment & Plan: Assessment: following [facility], chronic, stable on rx 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) 11/23/2018 12/02/2019 Elevated liver function tests 04/21/2018 Shoulder arthritis 06/02/2017 08/29/2019 OA (osteoarthritis) of shoulder 05/24/2017 08/29/2019 Overview: Added automatically from request for surgery [id number] Biceps tendinopathy 05/24/2017 10/11/2017 Overview: Added automatically from request for surgery [id number] Rotator cuff tear 05/24/2017 10/11/2017 Overview: Added automatically from request for surgery [id number] Rotator cuff arthropathy, left 03/09/2017 0 10/11/2017 Overview: 2017: Tear left biceps tendon Sciatica 09/29/2011 04/20/2022 documented as of this encounter (statuses as of 09/24/2022) 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 08/29/2019 12/02/2019 Nausea & vomiting 08/21/2019 08/21/2019 Autoimmune hepatitis treated with steroids 12/0112/22/2021 Last Assessment & Plan: Assessment: following [facility], chronic, stable on rx 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) 11/23/2018 12/02/2019 Elevated liver function tests 04/21/2018 Shoulder arthritis 06/02/2017 08/29/2019 OA (osteoarthritis) of shoulder 05/24/2017 08/29/2019 Overview: Added automatically from request for surgery [id number] Biceps tendinopathy 05/24/2017 10/11/2017 Overview: Added automatically from request for surgery [id number] Rotator cuff tear 05/24/2017 10/11/2017 Overview: Added automatically from request for surgery [id number] Rotator cuff arthropathy, left 03/09/2017 0 10/11/2017 Overview: 2017: Tear left biceps tendon Sciatica 09/29/2011 04/20/2022 documented as of this encounter (statuses as of 09/24/2022) 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 08/29/2019 12/02/2019 Nausea & vomiting 08/21/2019 08/21/2019 Autoimmune hepatitis treated with steroids 12/01/2018 12/22/2021 Last Assessment & Plan: Assessment: following [facility], chronic, stable on rx 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) 11/23/2018 12/02/2019 Elevated liver function tests 04/21/2018 10/11/2020 Shoulder arthritis 06/02/2017 0 OA (osteoarthritis) of shoulder 05/24/2017 08/29/2019 Overview: Added automatically from request for surgery [id number] Biceps tendinopathy 05/24/2017 10/12/19 18 Overview: Added automatically from request for surgery [id number] Rotator cuff tear 05/24/2017 10/11/2017 Overview: Added automatically from request for surgery [id number] Rotator cuff arthropathy, left 03/09/2017 10/11/2017 Overview: 2017: Tear left biceps tendon Sciatica 09/29/2011 04/20/2022 documented as of this encounter (statuses as of 10/01/2022) 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 08/29/2019 12/02/2019 Nausea & vomiting 08/21/2019 08/21/2019 Autoimmune hepatitis treated with steroids 12/01/2018 12/22/2021 Last Assessment & Plan: Assessment: following [facility], chronic, stable on rx 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) 11/23/2018 12/02/2019 Elevated liver function tests 04/21/2018 10/11/2020 Shoulder arthritis 06/02/2017 0 OA (osteoarthritis) of shoulder 05/24/2017 08/29/2019 Overview: Added automatically from request for surgery [id number] Biceps tendinopathy 05/24/2017 10/12/19 Overview: Added automatically from request for surgery [id number] Rotator cuff tear 05/24/2017 10/11/2017 Overview: Added automatically from request for surgery [id number] Rotator cuff arthropathy, left 03/09/2017 10/11/2017 Overview: 2017: Tear left biceps tendon Sciatica 09/29/2011 04/20/2022 documented as of this encounter (statuses as of 10/01/2022) 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 08/29/2019 12/02/2019 Nausea & vomiting 08/21/2019 08/21/2019 Autoimmune hepatitis treated with steroids 12/01/2018 12/22/2021 Last Assessment & Plan: Assessment: following [facility], chronic, stable on rx 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) 11/23/2018 12/02/2019 Elevated liver function tests 04/21/2018 10/11/2020 Shoulder arthritis 06/02/2017 0 OA (osteoarthritis) of shoulder 05/24/2017 08/29/2019 Overview: Added automatically from request for surgery [id number] Biceps tendinopathy 05/24/2017 10/12/19 18 Overview: Added automatically from request for surgery [id number] Rotator cuff tear 05/24/2017 10/11/2017 Overview: Added automatically from request for surgery [id number] Rotator cuff arthropathy, left 03/09/2017 10/11/2017 Overview: 2017: Tear left biceps tendon Sciatica 09/29/2011 04/20/2022 documented as of this encounter (statuses as of 11/20/2022) 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 08/29/2019 12/02/2019 Nausea & vomiting 08/21/2019 08/21/2019 Autoimmune hepatitis treated with steroids 12/01/2018 12/22/2021 Last Assessment & Plan: Assessment: following [facility], chronic, stable on rx 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) 11/23/2018 12/02/2019 Elevated liver function tests 04/21/2018 10/11/2020 Shoulder arthritis 06/02/2017 0 OA (osteoarthritis) of shoulder 05/24/2017 08/29/2019 Overview: Added automatically from request for surgery [id number] Biceps tendinopathy 05/24/2017 10/12/19 18 Overview: Added automatically from request for surgery [id number] Rotator cuff tear 05/24/2017 10/11/2017 Overview: Added automatically from request for surgery [id number] Rotator cuff arthropathy, left 03/09/2017 10/11/2017 Overview: 2017: Tear left biceps tendon Sciatica 09/29/2011 04/20/2022 documented as of this encounter (statuses as of 12/08/2022) 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 08/29/2019 12/02/2019 Nausea & vomiting 08/21/2019 08/21/2019 Autoimmune hepatitis treated with steroids 12/01/2018 12/22/2021 Last Assessment & Plan: Assessment: following [facility], chronic, stable on rx 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) 11/23/2018 12/02/2019 Elevated liver function tests 04/21/2018 10/11/2020 Shoulder arthritis 06/02/2017 0 OA (osteoarthritis) of shoulder 05/24/2017 08/29/2019 Overview: Added automatically from request for surgery [id number] Biceps tendinopathy 05/24/2017 10/12/19 18 Overview: Added automatically from request for surgery [id number] Rotator cuff tear 05/24/2017 10/11/2017 Overview: Added automatically from request for surgery [id number] Rotator cuff arthropathy, left 03/09/2017 10/11/2017 Overview: 2017: Tear left biceps tendon Sciatica 09/29/2011 04/20/2022 documented as of this encounter (statuses as of 12/16/2022) 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 08/29/2019 12/02/2019 Nausea & vomiting 08/21/2019 08/21/2019 Autoimmune hepatitis treated with steroids 12/01/2018 12/22/2021 Last Assessment & Plan: Assessment: following [facility], chronic, stable on rx 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) (HCC) 11/23/2018 020 Elevated liver function tests 04/21/2018 10/11/2020 Shoulder arthritis 06/02/2017 0 OA (osteoarthritis) of shoulder 05/24/2017 08/29/2019 Overview: Added automatically from request for surgery [id number] Biceps tendinopathy 05/24/2017 10/12/19 18 Overview: Added automatically from request for surgery [id number] Rotator cuff tear 05/24/2017 10/11/2017 Overview: Added automatically from request for surgery [id number] Rotator cuff arthropathy, left 03/09/2017 10/11/2017 Overview: 2017: Tear left biceps tendon Sciatica 09/29/2011 04/20/2022 documented as of this encounter (statuses as of 01/19/2023) 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 08/29/2019 12/02/2019 Nausea & vomiting 08/21/2019 08/21/2019 Autoimmune hepatitis treated with steroids 12/01/2018 12/22/2021 Last Assessment & Plan: Assessment: following [facility], chronic, stable on rx 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) (HCC) 11/23/2018 020 Elevated liver function tests 04/21/2018 10/11/2020 Shoulder arthritis 06/02/2017 0 OA (osteoarthritis) of shoulder 05/24/2017 08/29/2019 Overview: Added automatically from request for surgery [id number] Biceps tendinopathy 05/24/2017 10/12/19 18 Overview: Added automatically from request for surgery [id number] Rotator cuff tear 05/24/2017 10/11/2017 Overview: Added automatically from request for surgery [id number] Rotator cuff arthropathy, left 03/09/2017 10/11/2017 Overview: 2017: Tear left biceps tendon Sciatica 09/29/2011 04/20/2022 documented as of this encounter (statuses as of 01/23/2023) 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 08/29/2019 12/02/2019 Nausea & vomiting 08/21/2019 08/21/2019 Autoimmune hepatitis treated with steroids 12/01/2018 12/22/2021 Last Assessment & Plan: Assessment: following [facility], chronic, stable on rx 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) (HCC) 11/23/2018 020 Elevated liver function tests 04/21/2018 10/11/2020 Shoulder arthritis 06/02/2017 0 OA (osteoarthritis) of shoulder 05/24/2017 08/29/2019 Overview: Added automatically from request for surgery [id number] Biceps tendinopathy 05/24/2017 10/12/19 18 Overview: Added automatically from request for surgery [id number] Rotator cuff tear 05/24/2017 10/11/2017 Overview: Added automatically from request for surgery [id number] Rotator cuff arthropathy, left 03/09/2017 10/11/2017 Overview: 2017: Tear left biceps tendon Sciatica 09/29/2011 04/20/2022 documented as of this encounter (statuses as of 02/10/2023) 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 08/29/2019 12/02/2019 Nausea & vomiting 08/21/2019 08/21/2019 Autoimmune hepatitis treated with steroids 12/01/2018 12/22/2021 Last Assessment & Plan: Assessment: following [facility], chronic, stable on rx 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) (HCC) 11/23/2018 020 Elevated liver function tests 04/21/2018 10/11/2020 Shoulder arthritis 06/02/2017 0 OA (osteoarthritis) of shoulder 05/24/2017 08/29/2019 Overview: Added automatically from request for surgery [id number] Biceps tendinopathy 05/24/2017 10/12/19 18 Overview: Added automatically from request for surgery [id number] Rotator cuff tear 05/24/2017 10/11/2017 Overview: Added automatically from request for surgery [id number] Rotator cuff arthropathy, left 03/09/2017 10/11/2017 Overview: 2017: Tear left biceps tendon Sciatica 09/29/2011 04/20/2022 documented as of this encounter (statuses as of 02/17/2023) 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 08/29/2019 12/02/2019 Nausea & vomiting 08/21/2019 08/21/2019 Autoimmune hepatitis treated with steroids 12/01/2018 12/22/2021 Last Assessment & Plan: Assessment: following [facility], chronic, stable on rx 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) (HCC) 11/23/2018 020 Elevated liver function tests 04/21/2018 10/11/2020 Shoulder arthritis 06/02/2017 0 OA (osteoarthritis) of shoulder 05/24/2017 08/29/2019 Overview: Added automatically from request for surgery [id number] Biceps tendinopathy 05/24/2017 10/12/19 18 Overview: Added automatically from request for surgery [id number] Rotator cuff tear 05/24/2017 10/11/2017 Overview: Added automatically from request for surgery [id number] Rotator cuff arthropathy, left 03/09/2017 10/11/2017 Overview: 2017: Tear left biceps tendon Sciatica 09/29/2011 04/20/2022 documented as of this encounter (statuses as of 02/18/2023) 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 08/29/2019 12/02/2019 Nausea & vomiting 08/21/2019 08/21/2019 Autoimmune hepatitis treated with steroids 12/01/2018 12/22/2021 Last Assessment & Plan: Assessment: following [facility], chronic, stable on rx 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) (HCC) 11/23/2018 020 Elevated liver function tests 04/21/2018 10/11/2020 Shoulder arthritis 06/02/2017 0 OA (osteoarthritis) of shoulder 05/24/2017 08/29/2019 Overview: Added automatically from request for surgery [id number] Biceps tendinopathy 05/24/2017 10/12/19 18 Overview: Added automatically from request for surgery [id number] Rotator cuff tear 05/24/2017 10/11/2017 Overview: Added automatically from request for surgery [id number] Rotator cuff arthropathy, left 03/09/2017 10/11/2017 Overview: 2017: Tear left biceps tendon Sciatica 09/29/2011 04/20/2022 documented as of this encounter (statuses as of 02/18/2023) 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 08/29/2019 12/02/2019 Nausea & vomiting 08/21/2019 08/21/2019 Autoimmune hepatitis treated with steroids 12/01/2018 12/22/2021 Last Assessment & Plan: Assessment: following [facility], chronic, stable on rx 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) (HCC) 11/23/2018 020 Elevated liver function tests 04/21/2018 10/11/2020 Shoulder arthritis 06/02/2017 0 OA (osteoarthritis) of shoulder 05/24/2017 08/29/2019 Overview: Added automatically from request for surgery [id number] Biceps tendinopathy 05/24/2017 10/12/19 18 Overview: Added automatically from request for surgery [id number] Rotator cuff tear 05/24/2017 10/11/2017 Overview: Added automatically from request for surgery [id number] Rotator cuff arthropathy, left 03/09/2017 10/11/2017 Overview: 2017: Tear left biceps tendon Sciatica 09/29/2011 04/20/2022 documented as of this encounter (statuses as of 02/18/2023) 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 08/29/2019 12/02/2019 Nausea & vomiting 08/21/2019 08/21/2019 Autoimmune hepatitis treated with steroids 12/01/2018 12/22/2021 Last Assessment & Plan: Assessment: following [facility], chronic, stable on rx 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) (HCC) 11/23/2018 020 Elevated liver function tests 04/21/2018 10/11/2020 Shoulder arthritis 06/02/2017 0 OA (osteoarthritis) of shoulder 05/24/2017 08/29/2019 Overview: Added automatically from request for surgery [id number] Biceps tendinopathy 05/24/2017 10/12/19 18 Overview: Added automatically from request for surgery [id number] Rotator cuff tear 05/24/2017 10/11/2017 Overview: Added automatically from request for surgery [id number] Rotator cuff arthropathy, left 03/09/2017 10/11/2017 Overview: 2017: Tear left biceps tendon Sciatica 09/29/2011 04/20/2022 documented as of this encounter (statuses as of 03/05/2023) [facility] (HCC)- Primary Autoimmune hepatitis Hepatic sclerosis Unspecified chronic liver disease without mention of alcohol [facility] this [facility] Diagnosis Liver lesion- Primary Other specified disorders of liver [facility] this [facility] Diagnosis Autoimmune hepatitis (HCC) Autoimmune hepatitis documented [facility] Diagnosis Liver lesion Other specified disorders of liver documented in this [facility] Diagnosis Acute gout involving toe of right foot, unspecified cause documented [facility] this [facility] Diagnosis Prophylactic antibiotic Encounter for long-term (current) use of antibiotics documented [facility] this [facility]* Diagnosis Autoimmune hepatitis (HCC)- Primary Autoimmune hepatitis Liver disease, unspecified documented [facility] this [facility]* Diagnosis Autoimmune hepatitis treated with steroids (HCC)- Primary Autoimmune hepatitis Hepatic cirrhosis, unspecified hepatic cirrhosis type, unspecified whether ascites present (HCC) Portal vein thrombosis Thrombocytopenia (HCC) Thrombocytopenia, unspecified Recurrent depression (HCC) Major depressive disorder, recurrent episode, unspecified S/P ICD (internal cardiac defibrillator) procedure Automatic implantable cardiac defibrillator in situ Hyperlipidemia LDL goal <100 Other and unspecified hyperlipidemia Hypertrophic obstructive cardiomyopathy (HOCM) (HCC) Hypertrophic obstructive cardiomyopathy Steroid-induced hyperglycemia Other abnormal glucose documented [facility] this [facility]* Diagnosis Type 2 diabetes mellitus without complication, unspecified whether long term care phlebotomist insulin use (HCC) documented [facility] this [facility] Diagnosis Hypertrophic obstructive cardiomyopathy (HOCM) (HCC)- Primary Hypertrophic obstructive cardiomyopathy Essential hypertension Unspecified essential hypertension Hyperlipidemia LDL goal <100 Other and unspecified hyperlipidemia S/P ICD (internal cardiac defibrillator) procedure Automatic implantable cardiac defibrillator in situ Venous insufficiency Unspecified venous (peripheral) insufficiency documented [facility] this [facility] Diagnosis Acute gout involving toe of right foot, unspecified cause documented [facility] this [facility] Diagnosis Controlled type 2 diabetes mellitus without complication, without long-term current use of insulin (HCC)- Primary documented [facility] this [facility] Diagnosis Hyperlipidemia LDL goal <100- Primary Other and unspecified hyperlipidemia Controlled type 2 diabetes mellitus without complication, without long-term current use of insulin (HCC) Portal vein thrombosis Hepatic cirrhosis, unspecified hepatic cirrhosis type, unspecified whether ascites present (HCC) Hypertrophic obstructive cardiomyopathy (HOCM) (HCC) Hypertrophic obstructive cardiomyopathy Type 2 diabetes mellitus treated with insulin (HCC) Type II or unspecified type diabetes mellitus without mention of complication, not stated as uncontrolled [facility] Diagnosis Portal vein thrombosis Hypertrophic obstructive cardiomyopathy (HOCM) (HCC) Hypertrophic obstructive cardiomyopathy Type 2 diabetes mellitus treated with insulin (HCC) Type II or unspecified type diabetes mellitus without mention of complication, not stated as uncontrolled [facility] Diagnosis Prophylactic antibiotic Encounter for long-term (current) use of antibiotics documented [facility] Diagnosis Portal vein thrombosis Hypertrophic obstructive cardiomyopathy (HOCM) (HCC) Hypertrophic obstructive cardiomyopathy Type 2 diabetes mellitus treated with insulin (HCC) Type II or unspecified type diabetes mellitus without mention of complication, not stated as uncontrolled [facility] Diagnosis Prophylactic antibiotic Encounter for long-term (current) use of antibiotics [facility]* Diagnosis Autoimmune hepatitis (HCC) Autoimmune hepatitis [facility] Diagnosis Hypertrophic obstructive cardiomyopathy (HOCM) (HCC)- Primary Hypertrophic obstructive cardiomyopathy Hyperlipidemia LDL goal <100 Other and unspecified hyperlipidemia Portal vein thrombosis Hepatic cirrhosis, unspecified hepatic cirrhosis type, unspecified whether ascites present (HCC) Controlled type 2 diabetes mellitus without complication, unspecified whether usp insulin use (HCC) Thrombocytopenia (HCC) Thrombocytopenia, unspecified Throat clearing Other symptoms involving head and neck Oral bleeding Other and unspecified diseases of the oral soft tissues [facility] Diagnosis HOCM (hypertrophic obstructive cardiomyopathy) (HCC)- Primary Hypertrophic obstructive cardiomyopathy documented [facility] Diagnosis HOCM (hypertrophic obstructive cardiomyopathy) (HCC)- Primary Hypertrophic obstructive cardiomyopathy [facility]* Diagnosis Acute gout involving toe of right foot, unspecified cause documented [facility] this [facility] Diagnosis Vocal cord nodule- Primary Other diseases of vocal cords Throat clearing Other symptoms involving head and neck Oral bleeding Other and unspecified diseases of the oral soft tissues Gastroesophageal reflux disease, unspecified whether esophagitis present [facility] Diagnosis Chronic insomnia Insomnia, unspecified [facility] Diagnosis Hypertrophic obstructive cardiomyopathy (HOCM) (HCC)- Primary Hypertrophic obstructive cardiomyopathy S/P ICD (internal cardiac defibrillator) procedure Automatic implantable cardiac defibrillator in situ Hyperlipidemia LDL goal <100 Other and unspecified hyperlipidemia Venous insufficiency Unspecified venous (peripheral) insufficiency Primary hypertension Unspecified essential hypertension documented in this [facility]* Diagnosis Autoimmune hepatitis (HCC) Autoimmune hepatitis documented in this encounter [facility] note* Diagnosis Autoimmune hepatitis (HCC)- Primary Autoimmune hepatitis Controlled type 2 diabetes mellitus without complication, unspecified whether usp insulin use (HCC) Elevated LFTs Other abnormal blood chemistry documented in this encounter [facility] note* Diagnosis Poorly controlled type 2 diabetes mellitus (HCC)- Primary Type II or unspecified type diabetes mellitus without mention of complication, not stated as uncontrolled [facility] Diagnosis Acute gout involving toe of right foot, unspecified cause documented in this encounter 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 Other and combined forms of senile cataract Type 2 diabetes mellitus without retinopathy (HCC) Type II or unspecified type diabetes mellitus without mention of complication, not stated as uncontrolled Myopia, bilateral Myopia Presbyopia Drusen of left optic disc Drusen of optic disc Hypertrophic obstructive cardiomyopathy (HOCM) (HCC)- Primary Hypertrophic obstructive cardiomyopathy Primary hypertension Unspecified essential hypertension Hyperlipidemia LDL goal <100 Other and unspecified hyperlipidemia S/P ICD (internal cardiac defibrillator) procedure Automatic implantable cardiac defibrillator in situ Venous insufficiency Unspecified venous (peripheral) insufficiency [facility]* Diagnosis Autoimmune hepatitis (HCC) [K75.4]- Primary Autoimmune hepatitis [facility] Diagnosis Autoimmune hepatitis (HCC) Autoimmune hepatitis Examination of participant in clinical trial- Primary documented in this encounter [facility] note* Diagnosis Liver lesion- Primary Other specified disorders of liver Examination of participant in clinical trial- Primary [facility]* Diagnosis Examination of participant in clinical trial- Primary documented in this encounter [place] for referral (narrative)* Diagnostic Procedure Only (Routine) - Authorized Specialty Diagnoses / Procedures Referred By Theresa t Referred To Contact US IMAGING Diagnoses Autoimmune hepatitis (HCC) Procedures US DOPPLER COMPLETE DUP-SCAN ARTL LOVELY ABDL/PEL/SCROT&/RPR ORGN COM Hemalatha Bear MD [address] [place] [address] Us Imaging Referral ID Status Reason Start Date Expiration Date Visits Requested Visits Authorized [id number] Authorized Auto-Generat ed Referral 06/24/2021 07/24/2022 1 1 * Diagnostic Procedure Only (Routine) - Authorized Specialty Diagnoses / Procedures Referred By Contac t Referred To Contact US IMAGING Diagnoses Autoimmune hepatitis (HCC) Procedures US ABD LIVER VASCULAR US ABDOMINAL REAL TIME W/IMAGE LIMITED DUP-SCAN ARTL LOVELY ABDL/PEL/SCROT&/RPR ORGN COM Hemalatha Bear MD [address] [place] [address] Us Imaging Referral ID Status Reason Start Date Expiration Date Visits Requested Visits Authorized [id number] Authorized Auto-Generat ed Referral 06/24/2021 07/24/2022 1 1 [place] for referral (narrative)* Diagnostic Procedure Only (Routine) - Closed Specialty Diagnoses / Procedures Referred By Contac t Referred To Contact US IMAGING Diagnoses Autoimmune hepatitis (HCC) Procedures US DOPPLER COMPLETE DUP-SCAN ARTL LOVELY ABDL/PEL/SCROT&/RPR ORGN COM Hemalatha Bear MD [address] [facility] [place] [address] Us Imaging Referral ID Status Reason Start Date Expiration Date V isits Requested Visits Authorized [id number] Closed Auto-Generate d Referral 06/24/2021 07/24/2022 1 1 * Diagnostic Procedure Only (Routine) - Closed Specialty Diagnoses / Procedures Referred By Contac t Referred To Contact US IMAGING Diagnoses Autoimmune hepatitis (HCC) Procedures US ABD LIVER VASCULAR US ABDOMINAL REAL TIME W/IMAGE LIMITED DUP-SCAN ARTL LOVELY ABDL/PEL/SCROT&/RPR ORGN COM Hemalatha Bear MD [address] [place] [address] Us Imaging Referral ID Status Reason Start Date Expiration Date V isits Requested Visits Authorized [id number] Closed Auto-Generate d Referral 06/24/2021 07/24/2022 1 1 [place] for referral (narrative)* Diagnostic Procedure Only (Routine) - Pending Review Specialty Diagnoses / Procedures Referred By Contac t Referred To Contact US IMAGING Diagnoses Autoimmune hepatitis (HCC) Procedures US DOPPLER COMPLETE DUP-SCAN ARTL LOVELY ABDL/PEL/SCROT&/RPR ORGN [facility] Hemalatha Bear MD [address] [place] [address] Us Imaging Referral ID Status Reason Start Date Expiration Date Visits Requested Visits Authorized [id number] Pending Review Auto-Generat ed Referral 10/13/2021 11/12/2022 1 1 * Diagnostic Procedure Only (Routine) - Pending Review Specialty Diagnoses / Procedures Referred By Theresa t Referred To Contact US IMAGING Diagnoses Autoimmune hepatitis (HCC) Procedures US ABD LIVER VASCULAR US ABDOMINAL REAL TIME W/IMAGE LIMITED DUP-SCAN ARTL LOVELY ABDL/PEL/SCROT&/RPR ORGN [facility] Hemalatha Bear MD [address] [place] [address] Us Imaging Referral ID Status Reason Start Date Expiration Date Visits Requested Visits Authorized [id number] Pending Review Auto-Generat ed Referral 10/13/2021 11/12/2022 1 1 [place] for referral (narrative)* Outpatient Procedure (Routine) - Pending Review Specialty Diagnoses / Procedures Referred By Theresa t Ref[facility] To [facility] Diagnoses Hypertrophic obstructive cardiomyopathy (HOCM) (HCC) S/P ICD (internal cardiac defibrillator) procedure Procedures ECHO ECHO TTHRC R-T 2D W/WOM-MODE COMPL SPEC&COLR D Bernadette Miles MD [address] [place] [address] [facility] [address] [place] [address] Referral ID Status Reason Start Date Expiration Date Visits Requested Visits Authorized [id number] Pending Review Auto-Generat ed Referral 10/20/2021 10/20/2022 1 1 [place] for referral (narrative)* Diagnostic Procedure Only (Routine) - Closed Specialty Diagnoses / Procedures Referred By Contac t Referred To Contact US IMAGING Diagnoses Autoimmune hepatitis (HCC) Procedures US DOPPLER COMPLETE DUP-SCAN ARTL LOVELY ABDL/PEL/SCROT&/RPR ORGN COM Hemalatha Bear MD [address] [place] [phone] Us Imaging Referral ID Status Reason Start Date Expiration Date V isits Requested Visits Authorized [id number] Closed Auto-Generate d Referral 10/13/2021 11/12/2022 1 1 * Diagnostic Procedure Only (Routine) - Closed Specialty Diagnoses / Procedures Referred By Contac t Referred To Contact US IMAGING Diagnoses Autoimmune hepatitis (HCC) Procedures US ABD LIVER VASCULAR US ABDOMINAL REAL TIME W/IMAGE LIMITED DUP-SCAN ARTL LOVELY ABDL/PEL/SCROT&/RPR ORGN COM Hemalatha Bear MD [address] [place] [address] Us Imaging Referral ID Status Reason Start Date Expiration Date V isits Requested Visits Authorized [id number] Closed Auto-Generate d Referral 10/13/2021 11/12/2022 1 1 [place] for referral (narrative)* Outpatient Procedure (Routine) - Authorized Specialty Diagnoses / Procedures Referred By Contac t Ref[facility] Diagnoses HOCM (hypertrophic obstructive cardiomyopathy) (HCC) Procedures ECG COMPLETE ECG ROUTINE ECG W/LEAST 12 LDS W/I&R Caitlin Shahid MD [address] [place] [address] [place] [phone] Referral ID Status Reason Start Date Expiration Date Visits Requested Visits Authorized [id number] Authorized Auto-Generat ed Referral 05/20/2022 05/20/2023 1 1 [place] for referral (narrative)* Outpatient Procedure (Routine) - Authorized Specialty Diagnoses / Procedures Referred By Contac t Referred To Contact [facility] [place] Diagnoses Hypertrophic obstructive cardiomyopathy (HOCM) (HCC) Procedures ECHO ECHO TTHRC R-T 2D W/WOM-MODE COMPL SPEC&COLR D Bernadette Miles MD [address] [place] [id number] [place] [phone] Referral ID Status Reason Start Date Expiration Date Visits Requested Visits Authorized [id number] Authorized Auto-Generat ed Referral 07/13/2022 07/13/2023 1 1 * Outpatient Procedure (Routine) - Authorized Specialty Diagnoses / Procedures Referred By Contac t Referred To Contact [facility] Diagnoses Hypertrophic obstructive cardiomyopathy (HOCM) (HCC) Procedures ECG COMPLETE ECG ROUTINE ECG W/LEAST 12 LDS W/I&R Bernadette Miles MD [address] [place] [address] [address] Referral ID Status Reason Start Date Expiration Date Visits Requested Visits Authorized [id number] Authorized Auto-Generat ed Referral 07/07/2022 07/07/2023 1 1 [place] for referral (narrative)* Diagnostic Procedure Only (Routine) - Closed Specialty Diagnoses / Procedures Referred By Contac t Referred To Contact US IMAGING Diagnoses Autoimmune hepatitis (HCC) Procedures US DOPPLER COMPLETE DUP-SCAN ARTL LOVELY ABDL/PEL/SCROT&/RPR ORGN COM Hemalatha Bear MD [address] [place] [address] Us Imaging Referral ID Status Reason Start Date Expiration Date V isits Requested Visits Authorized [id number] Closed Auto-Generate d Referral 04/13/2022 05/13/2023 1 1 * Diagnostic Procedure Only (Routine) - Closed Specialty Diagnoses / Procedures Referred By Contac t Referred To Contact US IMAGING Diagnoses Autoimmune hepatitis (HCC) Procedures US ABD LIVER VASCULAR US ABDOMINAL REAL TIME W/IMAGE LIMITED DUP-SCAN ARTL LOVELY ABDL/PEL/SCROT&/RPR ORGN [facility] Hemalatha Bear MD [address] [place] [address] Us Imaging Referral ID Status Reason Start Date Expiration Date V isits Requested Visits Authorized [id number] Closed Auto-Generate d Referral 04/13/2022 05/13/2023 1 1 [place] for referral (narrative)* Diagnostic Procedure Only (Routine) - Pending Review Specialty Diagnoses / Procedures Referred By Contac t Referred To Contact US IMAGING Diagnoses Autoimmune hepatitis (HCC) Procedures US DOPPLER COMPLETE DUP-SCAN ARTL LOVELY ABDL/PEL/SCROT&/RPR ORGN COM Hemalatha Bear MD [address] [place] [address] Us Imaging Referral ID Status Reason Start Date Expiration Date Visits Requested Visits Authorized [id number] Pending Review Auto-Generat ed Referral 09/23/2022 10/23/2023 1 1 * Diagnostic Procedure Only (Routine) - Pending Review Specialty Diagnoses / Procedures Referred By Contac t Referred To Contact US IMAGING Diagnoses Autoimmune hepatitis (HCC) Procedures US ABD LIVER VASCULAR US ABDOMINAL REAL TIME W/IMAGE LIMITED DUP-SCAN ARTL LOVELY ABDL/PEL/SCROT&/RPR ORGN COM Hemalatha Bear MD [address] [place] [address] Us Imaging Referral ID Status Reason Start Date Expiration Date Visits Requested Visits Authorized [id number] Pending Review Auto-Generat ed Referral 09/23/2022 10/23/2023 1 1 * Consult, Test, Treat (Routine) - Authorized Specialty Diagnoses / Procedures [facility] Ref[facility] To Contact Endocrinology Diagnoses Controlled type 2 diabetes mellitus without complication, unspecified whether long term care phlebotomist insulin use (HCC) Procedures CONSULT TO ENDOCRINOLOGY OFFICE/OUTPATIENT NEW HIGH MDM 60-74 MINUTES Hemalatha Bear MD [address] [place] [address] Referral ID Status Reason Start Date Expiration Date Visits Requested Visits Authorized [id number] Authorized PCP Requested Referral 09/23/2022 09/23/2023 1 1 [place] for referral (narrative)* Diagnostic Procedure Only (Routine) - Closed Specialty Diagnoses / Procedures Referred By Theresa Referred To Contact US IMAGING Diagnoses Autoimmune hepatitis (HCC) Procedures US DOPPLER COMPLETE DUP-SCAN ARTL LOVELY ABDL/PEL/SCROT&/RPR ORGN [facility] Hemalatha Bear MD [address] [place] [address] Us Imaging [place] [id number] Referral ID Status Reason Start Date Expiration Date V isits Requested Visits Authorized [id number] Closed Auto-Generate d Referral 09/23/2022 10/23/2023 1 1 * Diagnostic Procedure Only (Routine) - Closed Specialty Diagnoses / Procedures [facility] To Contact US IMAGING Diagnoses Autoimmune hepatitis (HCC) Procedures US ABD LIVER VASCULAR US ABDOMINAL REAL TIME W/IMAGE LIMITED DUP-SCAN ARTL LOVELY ABDL/PEL/SCROT&/RPR ORGN COM Hemalatha Bear MD [address] [place] [phone] Us Imaging [place] [address] Referral ID Status Reason Start Date Expiration Date V isits Requested Visits Authorized [id number] Closed Auto-Generate d Referral 09/23/2022 10/23/2023 1 1 [place] for visit Narrative* Diagnostic Procedure Only (Routine) - Closed Specialty Diagnoses / Procedures Referred By Contac t Referred To Contact US IMAGING Diagnoses Autoimmune hepatitis (HCC) Procedures US ABD LIVER VASCULAR US ABDOMINAL REAL TIME W/IMAGE LIMITED DUP-SCAN ARTL LOVEYL ABDL/PEL/SCROT&/RPR ORGN [facility] Hemalatha Bear MD [address] [place] [address] Us Imaging Referral ID Status Reason Start Date Expiration Date V isits Requested Visits Authorized [id number] Closed Auto-Generate d Referral 06/24/2021 07/24/2022 1 1 [place] for visit Narrative* Diagnostic Procedure Only (Routine) - Closed Specialty Diagnoses / Procedures Referred By Contac t Referred To Contact US IMAGING Diagnoses Autoimmune hepatitis (HCC) Procedures US ABD LIVER VASCULAR US ABDOMINAL REAL TIME W/IMAGE LIMITED DUP-SCAN ARTL LOVELY ABDL/PEL/SCROT&/RPR ORGN [facility] Hemalatha Bear MD [address] [place] [address] Us Imaging Referral ID Status Reason Start Date Expiration Date V isits Requested Visits Authorized [id number] Closed Auto-Generate d Referral 10/13/2021 11/12/2022 1 1 [place] for visit Narrative* Diagnostic Procedure Only (Routine) - Closed Specialty Diagnoses / Procedures Referred By Contac t Referred To Contact US IMAGING Diagnoses Autoimmune hepatitis (HCC) Procedures US ABD LIVER VASCULAR US ABDOMINAL REAL TIME W/IMAGE LIMITED DUP-SCAN ARTL LOVELY ABDL/PEL/SCROT&/RPR ORGN COM Hemalatha Bear MD [address] [place] [address] Us Imaging Referral ID Status Reason Start Date Expiration Date V isits Requested Visits Authorized [id number] Closed Auto-Generate d Referral 04/13/2022 05/13/[address] [facility] Diagnostic Procedure Only (Routine) - Closed Specialty Diagnoses / Procedures Referred By Contac t Referred To Contact US IMAGING Diagnoses Autoimmune hepatitis (HCC) Procedures US ABD LIVER VASCULAR US ABDOMINAL REAL TIME W/IMAGE LIMITED DUP-SCAN ARTL LOVELY ABDL/PEL/SCROT&/RPR ORGN COM Hemalatha Bear MD [address] [place] [address] [place] [address] Referral ID Status Reason Start Date Expiration Date V isits Requested Visits Authorized [id number] Closed Auto-Generate d Referral 09/23/2022 10/23/[address] 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 Advance Directive(s) 04/15/2020 9:30 AM Advance Directive(s) 04/14/2020 2:38 AM Advance Directive(s) 03/11/2020 1:41 PM Advance Directive(s) 08/20/2019 5:55 PM Advance Directive(s) 05/30/2018 8:29 AM Advance Directive(s) 05/31/2017 10:30 AM Advance Directive(s) 05/25/2017 10:55 AM Documents on File Type Date Recorded 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 Advance Directive(s) 04/15/2020 9:30 AM Advance Directive(s) 04/14/2020 2:38 AM Advance Directive(s) 03/11/2020 1:41 PM Advance Directive(s) 08/20/2019 5:55 PM Advance Directive(s) 05/30/2018 8:29 AM Advance Directive(s) 05/31/2017 10:30 AM Advance Directive(s) 05/25/2017 10:55 AM Documents on File Type Date Recorded 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 Advance Directive(s) 05/30/2018 8:29 AM Documents on File Type Date Recorded 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 Advance Directive(s) 05/30/2018 8:29 AM Reason for Referral Specialty Diagnoses / Procedures Referred By Contac t Referred To Contact MR IMAGING Diagnoses Liver lesion Procedures MRI LIVER WO/W IVCON MRI ABDOMEN W/O & W/CONTRAST MATERIAL Hemalatha Bear MD [address] [facility] [place] [address] Mr Imaging Referral ID Status Reason Start Date Expiration Date Visits Requested Visits Authorized [id number] Pending Review Auto-Generat ed Referral 07/21/2021 08/20/2022 1 1 Specialty Diagnoses / Procedures Referred By Contac t Referred To Contact CT IMAGING Diagnoses Liver lesion Procedures CT LIVER W IVCON CT ABDOMEN W/CONTRAST Hemalatha Bear MD [address] [facility] [place] [address] Ct Imaging Referral ID Status Reason Start Date Expiration Date V isits Requested Visits Authorized [id number] Closed Auto-Generate d Referral 07/23/2021 08/22/2022 1 1 Specialty Diagnoses / Procedures Referred By Contac t Referred To Contact Cardiology Diagnoses S/P ICD (internal cardiac defibrillator) procedure Hypertrophic obstructive cardiomyopathy (HOCM) (HCC) Procedures CONSULT TO CARDIOLOGY OFFICE/OUTPATIENT [facility] 60-74 MINUTES Flako Ornelas MD [address] [place] [id number] Referral ID Status Reason Start Date Expiration Date Visits Requested Visits Authorized [id number] Authorized PCP Requested Referral 10/16/2021 10/16/2022 1 1 Specialty Diagnoses / Procedures Referred By Contac t Referred To Contact Ent - Otolaryngology Diagnoses Throat clearing Oral bleeding Procedures CONSULT TO ENT OFFICE/OUTPATIENT [facility] 60-74 MINUTES Flako Ornelas MD [address] [place] [address] Referral ID Status Reason Start Date Expiration Date Visits Requested Visits Authorized [id number] Authorized PCP Requested Referral 04/20/2022 04/20/2023 1 1 Specialty Diagnoses / Procedures Referred By Contac t Referred To Contact Ent - Otolaryngology Diagnoses Throat clearing Vocal cord nodule Procedures CONSULT TO ENT OFFICE/OUTPATIENT [facility] MDM 60-74 MINUTES Gicaomo Diez PA-C [address] [place] [address] Referral ID Status Reason Start Date Expiration Date Visits Requested Visits Authorized [id number] Authorized PCP Requested Referral 05/25/2022 05/25/2023 1 1 Specialty Diagnoses / Procedures Referred By Contac t Referred To Contact CT IMAGING Diagnoses Liver lesion Procedures CT LIVER W IVCON CT ABDOMEN W/CONTRAST Hemalatha Bear MD [address] [place] [address] [place] [address] Referral ID Status Reason Start Date Expiration Date Visits Requested Visits Authorized [id number] Authorized Auto-Generat ed Referral 03/18/2024 1 1 Medications Administered Section Inactive Administered Medications - up to 3 most recent administrations Medication Order MAR Action Action Date Dose Rate Site PHENYLephrine 2.5 % 1 Drop (AK-DILATE, JESSICA-SYNEPHRINE) 1 Drop, BOTH EYES, DIRECTED, Starting on Wed01/22/23 at 1430, Until 01/23/23 at 0229, Administer for dilation PROTECT FROM LIGHT Given 01/22/2023 2:11 PM EDT 1 Drop proparacaine 0.5 % 1 Drop (ALCAINE) 1 Drop, BOTH EYES, DIRECTED, Starting on Wed01/22/23 at 1430, Until 01/23/23 at 0229, Administer for pneumo tonometry, tonopen tonometry, or pachymetry. In the event of a proparacaine shortage, administer tetracaine 0.5% ophthalmic drops 1 drop in the left eye as directed for pneumo tonometry, tonopen tonometry, or pachymetry Given 01/22/2023 2:11 PM EDT 1 Drop tropicamide 1 % 1 Drop (MYDRIACYL) 1 Drop, BOTH EYES, DIRECTED, Starting on Wed01/22/23 at 1430, Until 01/23/23 at 0229, Administer for dilation Given 01/22/2023 2:11 PM EDT 1 Drop Additional Source Comments (unrecognized sect ion and content) No Status Records FoundNo Status Records FoundNo Status Records FoundNo Status Records Found INFORMATION SOURCE (unrecogn ized section and content) DATE CREATED AUTHOR AUTHOR'S ORGANIZ ATION 09/10/2017 [facility] DATE CREATED AUTHOR AUTHOR'S ORGANIZ ATION 07/22/2021 [facility] DATE CREATED AUTHOR AUTHOR'S ORGANIZ ATION 03/25/2023 [facility] Source Comments (unrecognize d section and content) In the event this informatio n is protected by the Federal Confidentiality of Alcohol and Drug Abuse Patient Records regulations: The Federal rules restrict any use of the information to criminally investigate or prosecute any alcohol or drug abuse patient.[facility] the event this information is protected by the Federal Confidentiality of Alcohol and Drug Abuse Patient Records regulations: The Federal rules restrict any use of the information to criminally investigate or prosecute any alcohol or drug abuse patient.[facility] the event this information is protected by the Federal Confidentiality of Alcohol and Drug Abuse Patient Records regulations: The Federal rules restrict any use of the information to criminally investigate or prosecute any alcohol or drug abuse patient.[facility] HospitalIn the event this information is protected by the Federal Confidentiality of Alcohol and Drug Abuse Patient Records regulations: The Federal rules restrict any use of the information to criminally investigate or prosecute any alcohol or drug abuse patient.[facility] HospitalIn the event this information is protected by the Federal Confidentiality of Alcohol and Drug Abuse Patient Records regulations: The Federal rules restrict any use of the information to criminally investigate or prosecute any alcohol or drug abuse patient.[facility] HospitalIn the event this information is protected by the Federal Confidentiality of Alcohol and Drug Abuse Patient Records regulations: The Federal rules restrict any use of the information to criminally investigate or prosecute any alcohol or drug abuse patient.[facility] HospitalIn the event this information is protected by the Federal Confidentiality of Alcohol and Drug Abuse Patient Records regulations: The Federal rules restrict any use of the information to criminally investigate or prosecute any alcohol or drug abuse patient.[facility] HospitalIn the event this information is protected by the Federal Confidentiality of Alcohol and Drug Abuse Patient Records regulations: The Federal rules restrict any use of the information to criminally investigate or prosecute any alcohol or drug abuse patient.[facility] HospitalIn the event this information is protected by the Federal Confidentiality of Alcohol and Drug Abuse Patient Records regulations: The Federal rules restrict any use of the information to criminally investigate or prosecute any alcohol or drug abuse patient.[facility] HospitalIn the event this information is protected by the Federal Confidentiality of Alcohol and Drug Abuse Patient Records regulations: The Federal rules restrict any use of the information to criminally investigate or prosecute any alcohol or drug abuse patient.[facility] HospitalIn the event this information is protected by the Federal Confidentiality of Alcohol and Drug Abuse Patient Records regulations: The Federal rules restrict any use of the information to criminally investigate or prosecute any alcohol or drug abuse patient.[facility] HospitalIn the event this information is protected by the Federal Confidentiality of Alcohol and Drug Abuse Patient Records regulations: The Federal rules restrict any use of the information to criminally investigate or prosecute any alcohol or drug abuse patient.[facility] HospitalIn the event this information is protected by the Federal Confidentiality of Alcohol and Drug Abuse Patient Records regulations: The Federal rules restrict any use of the information to criminally investigate or prosecute any alcohol or drug abuse patient.[facility] HospitalIn the event this information is protected by the Federal Confidentiality of Alcohol and Drug Abuse Patient Records regulations: The Federal rules restrict any use of the information to criminally investigate or prosecute any alcohol or drug abuse patient.[facility] HospitalIn the event this information is protected by the Federal Confidentiality of Alcohol and Drug Abuse Patient Records regulations: The Federal rules restrict any use of the information to criminally investigate or prosecute any alcohol or drug abuse patient.[facility] HospitalIn the event this information is protected by the Federal Confidentiality of Alcohol and Drug Abuse Patient Records regulations: The Federal rules restrict any use of the information to criminally investigate or prosecute any alcohol or drug abuse patient.[facility] HospitalIn the event this information is protected by the Federal Confidentiality of Alcohol and Drug Abuse Patient Records regulations: The Federal rules restrict any use of the information to criminally investigate or prosecute any alcohol or drug abuse patient.[facility] HospitalIn the event this information is protected by the Federal Confidentiality of Alcohol and Drug Abuse Patient Records regulations: The Federal rules restrict any use of the information to criminally investigate or prosecute any alcohol or drug abuse patient.[facility] HospitalIn the event this information is protected by the Federal Confidentiality of Alcohol and Drug Abuse Patient Records regulations: The Federal rules restrict any use of the information to criminally investigate or prosecute any alcohol or drug abuse patient.[facility] HospitalIn the event this information is protected by the Federal Confidentiality of Alcohol and Drug Abuse Patient Records regulations: The Federal rules restrict any use of the information to criminally investigate or prosecute any alcohol or drug abuse patient.[facility] HospitalIn the event this information is protected by the Federal Confidentiality of Alcohol and Drug Abuse Patient Records regulations: The Federal rules restrict any use of the information to criminally investigate or prosecute any alcohol or drug abuse patient.[facility] HospitalIn the event this information is protected by the Federal Confidentiality of Alcohol and Drug Abuse Patient Records regulations: The Federal rules restrict any use of the information to criminally investigate or prosecute any alcohol or drug abuse patient.[facility] HospitalIn the event this information is protected by the Federal Confidentiality of Alcohol and Drug Abuse Patient Records regulations: The Federal rules restrict any use of the information to criminally investigate or prosecute any alcohol or drug abuse patient.[facility] HospitalIn the event this information is protected by the Federal Confidentiality of Alcohol and Drug Abuse Patient Records regulations: The Federal rules restrict any use of the information to criminally investigate or prosecute any alcohol or drug abuse patient.[facility] HospitalIn the event this information is protected by the Federal Confidentiality of Alcohol and Drug Abuse Patient Records regulations: The Federal rules restrict any use of the information to criminally investigate or prosecute any alcohol or drug abuse patient.[facility] HospitalIn the event this information is protected by the Federal Confidentiality of Alcohol and Drug Abuse Patient Records regulations: The Federal rules restrict any use of the information to criminally investigate or prosecute any alcohol or drug abuse patient.[facility] HospitalIn the event this information is protected by the Federal Confidentiality of Alcohol and Drug Abuse Patient Records regulations: The Federal rules restrict any use of the information to criminally investigate or prosecute any alcohol or drug abuse patient.[facility] HospitalIn the event this information is protected by the Federal Confidentiality of Alcohol and Drug Abuse Patient Records regulations: The Federal rules restrict any use of the information to criminally investigate or prosecute any alcohol or drug abuse patient.[facility] HospitalIn the event this information is protected by the Federal Confidentiality of Alcohol and Drug Abuse Patient Records regulations: The Federal rules restrict any use of the information to criminally investigate or prosecute any alcohol or drug abuse patient.[facility] HospitalIn the event this information is protected by the Federal Confidentiality of Alcohol and Drug Abuse Patient Records regulations: The Federal rules restrict any use of the information to criminally investigate or prosecute any alcohol or drug abuse patient.[facility] HospitalIn the event this information is protected by the Federal Confidentiality of Alcohol and Drug Abuse Patient Records regulations: The Federal rules restrict any use of the information to criminally investigate or prosecute any alcohol or drug abuse patient.[facility] HospitalIn the event this information is protected by the Federal Confidentiality of Alcohol and Drug Abuse Patient Records regulations: The Federal rules restrict any use of the information to criminally investigate or prosecute any alcohol or drug abuse patient.[facility] HospitalIn the event this information is protected by the Federal Confidentiality of Alcohol and Drug Abuse Patient Records regulations: The Federal rules restrict any use of the information to criminally investigate or prosecute any alcohol or drug abuse patient.[facility] HospitalIn the event this information is protected by the Federal Confidentiality of Alcohol and Drug Abuse Patient Records regulations: The Federal rules restrict any use of the information to criminally investigate or prosecute any alcohol or drug abuse patient.[facility] HospitalIn the event this information is protected by the Federal Confidentiality of Alcohol and Drug Abuse Patient Records regulations: The Federal rules restrict any use of the information to criminally investigate or prosecute any alcohol or drug abuse patient.[facility] HospitalIn the event this information is protected by the Federal Confidentiality of Alcohol and Drug Abuse Patient Records regulations: The Federal rules restrict any use of the information to criminally investigate or prosecute any alcohol or drug abuse patient.[facility] HospitalIn the event this information is protected by the Federal Confidentiality of Alcohol and Drug Abuse Patient Records regulations: The Federal rules restrict any use of the information to criminally investigate or prosecute any alcohol or drug abuse patient.[facility] HospitalIn the event this information is protected by the Federal Confidentiality of Alcohol and Drug Abuse Patient Records regulations: The Federal rules restrict any use of the information to criminally investigate or prosecute any alcohol or drug abuse patient.[facility] HospitalIn the event this information is protected by the Federal Confidentiality of Alcohol and Drug Abuse Patient Records regulations: The Federal rules restrict any use of the information to criminally investigate or prosecute any alcohol or drug abuse patient.[facility] HospitalIn the event this information is protected by the Federal Confidentiality of Alcohol and Drug Abuse Patient Records regulations: The Federal rules restrict any use of the information to criminally investigate or prosecute any alcohol or drug abuse patient.[facility] HospitalIn the event this information is protected by the Federal Confidentiality of Alcohol and Drug Abuse Patient Records regulations: The Federal rules restrict any use of the information to criminally investigate or prosecute any alcohol or drug abuse patient.[facility] HospitalIn the event this information is protected by the Federal Confidentiality of Alcohol and Drug Abuse Patient Records regulations: The Federal rules restrict any use of the information to criminally investigate or prosecute any alcohol or drug abuse patient.[facility] HospitalIn the event this information is protected by the Federal Confidentiality of Alcohol and Drug Abuse Patient Records regulations: The Federal rules restrict any use of the information to criminally investigate or prosecute any alcohol or drug abuse patient.[facility] HospitalIn the event this information is protected by the Federal Confidentiality of Alcohol and Drug Abuse Patient Records regulations: The Federal rules restrict any use of the information to criminally investigate or prosecute any alcohol or drug abuse patient.[facility] HospitalIn the event this information is protected by the Federal Confidentiality of Alcohol and Drug Abuse Patient Records regulations: The Federal rules restrict any use of the information to criminally investigate or prosecute any alcohol or drug abuse patient.[facility] HospitalIn the event this information is protected by the Federal Confidentiality of Alcohol and Drug Abuse Patient Records regulations: The Federal rules restrict any use of the information to criminally investigate or prosecute any alcohol or drug abuse patient.[facility] HospitalIn the event this information is protected by the Federal Confidentiality of Alcohol and Drug Abuse Patient Records regulations: The Federal rules restrict any use of the information to criminally investigate or prosecute any alcohol or drug abuse patient.[facility] HospitalIn the event this information is protected by the Federal Confidentiality of Alcohol and Drug Abuse Patient Records regulations: The Federal rules restrict any use of the information to criminally investigate or prosecute any alcohol or drug abuse patient.[facility] HospitalIn the event this information is protected by the Federal Confidentiality of Alcohol and Drug Abuse Patient Records regulations: The Federal rules restrict any use of the information to criminally investigate or prosecute any alcohol or drug abuse patient.[facility] HospitalIn the event this information is protected by the Federal Confidentiality of Alcohol and Drug Abuse Patient Records regulations: The Federal rules restrict any use of the information to criminally investigate or prosecute any alcohol or drug abuse patient.[facility] HospitalIn the event this information is protected by the Federal Confidentiality of Alcohol and Drug Abuse Patient Records regulations: The Federal rules restrict any use of the information to criminally investigate or prosecute any alcohol or drug abuse patient.[facility] HospitalIn the event this information is protected by the Federal Confidentiality of Alcohol and Drug Abuse Patient Records regulations: The Federal rules restrict any use of the information to criminally investigate or prosecute any alcohol or drug abuse patient.[facility] HospitalIn the event this information is protected by the Federal Confidentiality of Alcohol and Drug Abuse Patient Records regulations: The Federal rules restrict any use of the information to criminally investigate or prosecute any alcohol or drug abuse patient.[facility] HospitalIn the event this information is protected by the Federal Confidentiality of Alcohol and Drug Abuse Patient Records regulations: The Federal rules restrict any use of the information to criminally investigate or prosecute any alcohol or drug abuse patient.[facility] HospitalIn the event this information is protected by the Federal Confidentiality of Alcohol and Drug Abuse Patient Records regulations: The Federal rules restrict any use of the information to criminally investigate or prosecute any alcohol or drug abuse patient.[facility] HospitalIn the event this information is protected by the Federal Confidentiality of Alcohol and Drug Abuse Patient Records regulations: The Federal rules restrict any use of the information to criminally investigate or prosecute any alcohol or drug abuse patient.[facility] HospitalIn the event this information is protected by the Federal Confidentiality of Alcohol and Drug Abuse Patient Records regulations: The Federal rules restrict any use of the information to criminally investigate or prosecute any alcohol or drug abuse patient.[facility] HospitalIn the event this information is protected by the Federal Confidentiality of Alcohol and Drug Abuse Patient Records regulations: The Federal rules restrict any use of the information to criminally investigate or prosecute any alcohol or drug abuse patient.[facility] HospitalIn the event this information is protected by the Federal Confidentiality of Alcohol and Drug Abuse Patient Records regulations: The Federal rules restrict any use of the information to criminally investigate or prosecute any alcohol or drug abuse patient.[facility] HospitalIn the event this information is protected by the Federal Confidentiality of Alcohol and Drug Abuse Patient Records regulations: The Federal rules restrict any use of the information to criminally investigate or prosecute any alcohol or drug abuse patient.[facility] HospitalIn the event this information is protected by the Federal Confidentiality of Alcohol and Drug Abuse Patient Records regulations: The Federal rules restrict any use of the information to criminally investigate or prosecute any alcohol or drug abuse patient.[facility] HospitalIn the event this information is protected by the Federal Confidentiality of Alcohol and Drug Abuse Patient Records regulations: The Federal rules restrict any use of the information to criminally investigate or prosecute any alcohol or drug abuse patient.[facility] HospitalIn the event this information is protected by the Federal Confidentiality of Alcohol and Drug Abuse Patient Records regulations: The Federal rules restrict any use of the information to criminally investigate or prosecute any alcohol or drug abuse patient.[facility] HospitalIn the event this information is protected by the Federal Confidentiality of Alcohol and Drug Abuse Patient Records regulations: The Federal rules restrict any use of the information to criminally investigate or prosecute any alcohol or drug abuse patient.[facility] HospitalIn the event this information is protected by the Federal Confidentiality of Alcohol and Drug Abuse Patient Records regulations: The Federal rules restrict any use of the information to criminally investigate or prosecute any alcohol or drug abuse patient.[facility] HospitalIn the event this information is protected by the Federal Confidentiality of Alcohol and Drug Abuse Patient Records regulations: The Federal rules restrict any use of the information to criminally investigate or prosecute any alcohol or drug abuse patient.[facility] HospitalIn the event this information is protected by the Federal Confidentiality of Alcohol and Drug Abuse Patient Records regulations: The Federal rules restrict any use of the information to criminally investigate or prosecute any alcohol or drug abuse patient.[facility] HospitalIn the event this information is protected by the Federal Confidentiality of Alcohol and Drug Abuse Patient Records regulations: The Federal rules restrict any use of the information to criminally investigate or prosecute any alcohol or drug abuse patient.[facility] HospitalIn the event this information is protected by the Federal Confidentiality of Alcohol and Drug Abuse Patient Records regulations: The Federal rules restrict any use of the information to criminally investigate or prosecute any alcohol or drug abuse patient.[facility] HospitalIn the event this information is protected by the Federal Confidentiality of Alcohol and Drug Abuse Patient Records regulations: The Federal rules restrict any use of the information to criminally investigate or prosecute any alcohol or drug abuse patient.[facility] HospitalIn the event this information is protected by the Federal Confidentiality of Alcohol and Drug Abuse Patient Records regulations: The Federal rules restrict any use of the information to criminally investigate or prosecute any alcohol or drug abuse patient.[facility] HospitalIn the event this information is protected by the Federal Confidentiality of Alcohol and Drug Abuse Patient Records regulations: The Federal rules restrict any use of the information to criminally investigate or prosecute any alcohol or drug abuse patient.[facility] Reason for Visit (unrecogniz ed section and content) Reason Comments Appointment Reason Comments Liver Disease Reason Onset Date Comments Refill Request 06/28/[address] Specialty Diagnoses / Procedures Referred By Contac t Referred To Contact CT IMAGING Diagnoses Liver lesion Procedures CT LIVER W IVCON CT ABDOMEN W/CONTRAST Hemalatha Bear MD [address] [place] [address] Ct Imaging Referral ID Status Reason Start Date Expiration Date V isits Requested Visits Authorized [id number] Closed Auto-Generate d Referral 07/23/2021 08/22/2022 1 1 Reason Onset Date Comments Refill Request 08/05/2021 Reason Onset Date Comments Refill Request 09/08/2021 Reason Onset Date Comments Refill Request 09/23/2021 Reason Comments 6 Month Exam Reason Comments New Patient Specialty Diagnoses / Procedures Referred By Contac t Referred To Contact Cardiology Diagnoses S/P ICD (internal cardiac defibrillator) procedure Hypertrophic obstructive cardiomyopathy (HOCM) (HCC) Procedures CONSULT TO CARDIOLOGY OFFICE/OUTPATIENT [facility] MDM 60-[place] [address] [place] [id number] Referral ID Status Reason Start Date Expiration Date V isits Requested Visits Authorized [id number] Closed PCP Requested Referral 10/16/2021 10/16/2022 1 1 Reason Comments Results Reason Onset Date Comments Refill Request 12/08/2021 Reason Comments Follow Up Following up on bloo d sugar results Reason Onset Date Comments Refill Request 12/29/2021 Reason Onset Date Comments Refill Request 01/11/2022 Reason Onset Date Comments Refill Request 03/08/2022 Reason Onset Date Comments Refill Request 03/23/2022 Reason Onset Date Comments Population Health Navigation Outreach 04/08/2022 [facility]SA Reason Comments Refill Request Reason Onset Date Comments Refill Request 05/22/2022 Reason Comments Throat Problem Lots of phlegm const antly Specialty Diagnoses / Procedures Referred By Contac t Referred To Contact Ent - Otolaryngology Diagnoses Throat clearing Oral bleeding Procedures CONSULT TO ENT OFFICE/OUTPATIENT [facility] MDM 60-74 MINUTES Flako Ornelas MD [address] [place] [address] Referral ID Status Reason Start Date Expiration Date V isits Requested Visits Authorized [id number] Closed PCP Requested Referral 04/20/2022 04/20/2023 1 1 Reason Onset Date Comments Refill Request 06/08/2022 Reason Comments Established Patient Follow-Up Reason Comments Establish Care Follow up Reason Comments Diabetes Reason Onset Date Comments Refill Request 12/07/2022 Reason Onset Date Comments Refill Request 01/18/2023 Reason Comments Glare Specialty Diagnoses / Procedures Referred By Theresa t Referred To Contact Ophthalmology Diagnoses Controlled type 2 diabetes mellitus without complication, unspecified whether long term care phlebotomist insulin use (HCC) Procedures CONSULT TO OPHTHALMOLOGY OFFICE/OUTPATIENT [facility] MDM 60-74 MINUTES Flako Ornelas MD [address] [place] [address] Referral ID Status Reason Start Date Expiration Date V isits Requested Visits Authorized [id number] Closed PCP Requested Referral 01/15/2023 01/15/2024 1 1 Reason Onset Date Comments Refill Request 02/10/2023 Reason Comments Established Patient AIH Follow Up Reason Comments Research IRB#[id number] Care Teams (unrecognized sec tion and content) Smocker Relationship Specialty Start Date End Date Flako Ornelas MD [address] [place], [place] [id number] PCP - General Family Practice 10/11/20 Caitlin Shahid MD [address] [place] [address] Primary Staff Physician Cardiology 11/19/20 Smocker Relationship Specialty Start Date End Date Flako Ornelas MD [address] [place], [place] [id number] PCP - General Family Practice 10/11/20 Caitlin Shahid MD [address] [facility] [place] [address] Primary Staff Physician Cardiology 11/19/20 Smocker Relationship Specialty Start Date End Date Flako Ornelas MD [address] [place], [place] [id number] [phone] PCP - General Family Practice 10/11/20 Caitlin Shahid MD [address] [place] [address] Primary Staff Physician Cardiology 11/19/20 Smocker Relationship Specialty Start Date End Date Flako Ornelas MD [address] [place] [address] PCP - General Family Practice 10/11/20 Caitlin Shahid MD [address] [place] [address] Primary Staff Physician Cardiology 11/19/20 Smocker Relationship Specialty Start Date End Date Flako Ornelas MD [address] [place] [address] PCP - General Family Practice 10/11/20 Caitlin Shahid MD [address] [place] [address] Primary Staff Physician Cardiology 11/19/20 Smocker Relationship Specialty Start Date End Date Flako Ornelas MD [address] [place] [address] PCP - General Family Practice 10/11/20 Caitlin Shahid MD [address] [place] [address] Primary Staff Physician Cardiology 11/19/20 Smocker Relationship Specialty Start Date End Date Flako Ornelas MD [address] [place] [address] PCP - General Family Practice 10/11/20 Caitlin Shahid MD [address] [place] [address] Primary Staff Physician Cardiology 11/19/20 Smocker Relationship Specialty Start Date End Date Flako Ornelas MD [address] [place] [address] PCP - General Family Practice 10/11/20 Caitlin Shahid MD [address] [place] [address] Primary Staff Physician Cardiology 11/19/20 Smocker Relationship Specialty Start Date End Date Flako Ornelas MD [address] [place] [address] PCP - General Family Practice 10/11/20 Caitlin Shahid MD [address] [place] [address] Primary Staff Physician Cardiology 11/19/20 Smocker Relationship Specialty Start Date End Date Flako Ornelas MD [address] [place] [address] PCP - General Family Practice 10/11/20 Caitlin Shahid MD [address] [place] [address] Primary Staff Physician Cardiology 11/19/20 Smocker Relationship Specialty Start Date End Date Flako Ornelas MD [address] [place] [address] PCP - General Family Practice 10/11/20 Caitlin Shahid MD [address] [place] [address] Primary Staff Physician Cardiology 11/19/20 Smocker Relationship Specialty Start Date End Date Flako Ornelas MD [address] [place] [address] PCP - General Family Practice 10/11/20 Caitlin Shahid MD [address] [place] [address] Primary Staff Physician Cardiology 11/19/20 Smocker Relationship Specialty Start Date End Date Flako Ornelas MD [address] [place] [address] PCP - General Family Practice 10/11/20 Caitlin Shahid MD [address] [facility] [place] [address] Primary Staff Physician Cardiology 11/19/20 Smocker Relationship Specialty Start Date End Date Flako Ornelas MD [address] [place] [address] PCP - General Family Practice 10/11/20 Caitlin Shahid MD [address] [place] [address] Primary Staff Physician Cardiology 11/19/20 Smocker Relationship Specialty Start Date End Date Flako Ornelas MD [address] [place] [address] PCP - General Family Medicine 10/11/20 Caitlin Shahid MD [address] [place] [address] Primary Staff Physician Cardiology 11/19/20 Smocker Relationship Specialty Start Date End Date Flako Ornelas MD [address] [place] [address] PCP - General Family Medicine 10/11/20 Caitlin Shahid MD [address] [facility] [place] [address] Primary Staff Physician Cardiology 11/19/20 Smocker Relationship Specialty Start Date End Date Flako Ornelas MD [address] [place] [address] PCP - General Family Medicine 10/11/20 Caitlin Shahid MD [address] [place] [address] Primary Staff Physician Cardiology 11/19/20 Smocker Relationship Specialty Start Date End Date Flako Ornelas MD [address] [place] [address] PCP - General Family Medicine 10/11/20 Caitlin Shahid MD [address] [place] [address] Primary Staff Physician Cardiology 11/19/20 Smocker Relationship Specialty Start Date End Date Flako Ornelas MD [address] [place] [address] PCP - General Family Medicine 10/11/20 Caitlin Shahid MD [address] [place] [address] Primary Staff Physician Cardiology 11/19/20 Smocker Relationship Specialty Start Date End Date Flako Ornelas MD [address] [place] [address] PCP - General Family Medicine 10/11/20 Caitlin Shahid MD [address] [place] [address] Primary Staff Physician Cardiology 11/19/20 Smocker Relationship Specialty Start Date End Date Flako Ornelas MD [address] [place] [address] PCP - General Family Medicine 10/11/20 Caitlin Shahid MD [address] [place] [address] Primary Staff Physician Cardiology 11/19/20 Smocker Relationship Specialty Start Date End Date Flako Ornelas MD [address] [place] [address] PCP - General Family Medicine 10/11/20 Caitlin Shahid MD [address] [place] [address] Primary Staff Physician Cardiology 11/19/20 Smocker Relationship Specialty Start Date End Date Flako Ornelas MD [address] [place] [address] PCP - General Family Medicine 10/11/20 Caitlin Shahid MD [address] [place] [address] Primary Staff Physician Cardiology 11/19/20 Smocker Relationship Specialty Start Date End Date Flako Ornelas MD [address] [place] [address] PCP - General Family Medicine 10/11/20 Caitlin Shahid MD [address] [place] [address] Primary Staff Physician Cardiology 11/19/20 Smocker Relationship Specialty Start Date End Date Flako Ornelas MD [address] [place] [address] PCP - General Family Medicine 10/11/20 Caitlin Shahid MD [address] [place] [address] Primary Staff Physician Cardiology 11/19/20 Smocker Relationship Specialty Start Date End Date Flako Ornelas MD [address] [place] [address] PCP - General Family Medicine 10/11/20 Caitlin Shahid MD [address] [place] [address] Primary Staff Physician Cardiology 11/19/20 Smocker Relationship Specialty Start Date End Date Flako Ornelas MD [address] [place] [address] PCP - General Family Medicine 10/11/20 Caitlin Shahid MD [address] [facility] [place] [address] Primary Staff Physician Cardiology 11/19/20 Smocker Relationship Specialty Start Date End Date Flako Ornelas MD [address] [place] [address] PCP - General Family Medicine 10/11/20 Caitlni Shahid MD [address] [place] [address] Primary Staff Physician Cardiology 11/19/20 Smocker Relationship Specialty Start Date End Date Flako Ornelas MD [address] [place] [address] PCP - General Family Medicine 10/11/20 Caitlin Shahid MD [address] [facility] [place] [address] Primary Staff Physician Cardiology 11/19/20 Smocker Relationship Specialty Start Date End Date Flako Ornelas MD [address] [place] [address] PCP - General Family Medicine 10/11/20 Caitlin Shahid MD [address] [facility] [place] [address] Primary Staff Physician Cardiology 11/19/20 Smocker Relationship Specialty Start Date End Date Flako Ornelas MD [address] [facility] [place] [address] PCP - General Family Medicine 10/11/20 Caitlin Shahid MD [address] [place] [address] Primary Staff Physician Cardiology 11/19/20 Smocker Relationship Specialty Start Date End Date Flako Ornelas MD [address] [place] [address] PCP - General Family Medicine 10/11/20 Caitlin Shahid MD [address] [facility] [place] [address] Primary Staff Physician Cardiology 11/19/20 Smocker Relationship Specialty Start Date End Date Flako Ornelas MD [address] [place] [address] PCP - General Family Medicine 10/11/20 Caitlin Shahid MD [address] [place] [address] Primary Staff Physician Cardiology 11/19/20 Smocker Relationship Specialty Start Date End Date Flako Ornelas MD [address] [place] [address] PCP - General Family Medicine 10/11/20 Caitlin Shahid MD [address] [place] [address] Primary Staff Physician Cardiology 11/19/20 Smocker Relationship Specialty Start Date End Date Flako Ornelas MD [address] [place] [address] PCP - General Family Medicine 10/11/20 Caitlin Shahid MD [address] [place], [place] [id number] Primary Staff Physician Cardiology 11/19/20 Smocker Relationship Specialty Start Date End Date Flako Ornelas MD [address] [place] [address] PCP - General Family Medicine 10/11/20 Caitlin Shahid MD [address] [place], [place] [id number] Primary Staff Physician Cardiology 11/19/20 Smocker Relationship Specialty Start Date End Date Flako Ornelas MD [address] [place], [place] 261061 PCP - General Family Medicine 10/11/20 Caitlin Shahid MD [address] [facility] [place] [address] Primary Staff Physician Cardiology 11/19/20 Smocker Relationship Specialty Start Date End Date Flako Ornelas MD [address] [place] [address] PCP - General Family Medicine 10/11/20 Caitlin Shahid MD [address] [facility] [place] [address] Primary Staff Physician Cardiology 11/19/20 Smocker Relationship Specialty Start Date End Date Flako Ornelas MD [address] [place], [place] [id number] PCP - General Family Medicine 10/11/20 Caitlin Shahid MD [address] [place] [address] Primary Staff Physician Cardiology 11/19/20 Smocker Relationship Specialty Start Date End Date Flako Ornelas MD [address] [place], [place] 692491 PCP - General Family Medicine 10/11/20 Caitlin Shahid MD [address] [place] [place] [id number] Primary Staff Physician Cardiology 11/19/20 Smocker Relationship Specialty Start Date End Date Flako Ornelas MD [address] [place], [place] 093171 PCP - General Family Medicine 10/11/20 Caitlin Shahid MD [address] [place] [address] Primary Staff Physician Cardiology 11/19/20 Smocker Relationship Specialty Start Date End Date Flako Ornelas MD [address] [place], [place] 844131 PCP - General Family Medicine 10/11/20 Caitlin Shahid MD [address] [place] [address] Primary Staff Physician Cardiology 11/19/20 Smocker Relationship Specialty Start Date End Date Flako Ornelas MD [address] [place], [place] 924821 PCP - General Family Medicine 10/11/20 Caitlin Shahid MD [address] [place], [place] [id number] Primary Staff Physician Cardiology 11/19/20 Smocker Relationship Specialty Start Date End Date Flako Ornelas MD [address] [place], [place] 8829[address] PCP - General Family Medicine 10/11/20 Caitlin Shahid MD [address] [place] [id number] Primary Staff Physician Cardiology 11/19/20 Smocker Relationship Specialty Start Date End Date Flako Ornelas MD [address] [place], [place] [address]451 PCP - General Family Medicine 10/11/20 Caitlin Shahid MD [address] [place] [address] Primary Staff Physician Cardiology 11/19/20 Smocker Relationship Specialty Start Date End Date Flako Ornelas MD [address] [place], [place] 695691 PCP - General Family Medicine 10/11/20 Caitlin Shahid MD [address] [place] [address] Primary Staff Physician Cardiology 11/19/20 Smocker Relationship Specialty Start Date End Date Flako Ornelas MD [address] [place], [place] 671231 PCP - General Family Medicine 10/11/20 Caitlin Shahid MD [address] [place], [place] [id number] Primary Staff Physician Cardiology 11/19/20 Smocker Relationship Specialty Start Date End Date Flako Ornelas MD [address] [place] [address] PCP - General Family Medicine 10/11/20 Caitlin Shahid MD [address] [place] [address] Primary Staff Physician Cardiology 11/19/20 Smocker Relationship Specialty Start Date End Date Flako Ornelas MD [address] [place] [address] PCP - General Family Medicine 10/11/20 Caitlin Shahid MD [address] [place] [address] Primary Staff Physician Cardiology 11/19/20 FOR RECORDS PERTAINING TO PATIENTS WHO ARE OR HAVE BEEN ENROLLED IN A CHEMICAL DEPENDENCY/SUBSTANCEABUSE PROGRAM, SOME INFORMATION MAY BE OMITTED. This clinical summary was aggregated from multiple sources. Caution should be exercised in using it in the provision of clinical care. This summary normalizes information from multiple sources, and as a consequence, information in this document may materially change the coding, format and clinical context of patient data. In addition, data may be omitted in some cases. CLINICAL DECISIONS SHOULD BE BASED ON THE PRIMARY CLINICAL RECORDS. [employer] provides no warranty or guarantee of the accuracy or completeness of information in this document.
[2023-03-26] MEDS: Pantoprazole Sodium 80 MG in 0.9% Normal Saline (50mL Bag) 15 ML 420 MG IV BOLUS (21:51)
[2023-03-26] MEDS: Ondansetron 4 MG/2 ML Vial IM (21:51)
[2023-03-26] MEDS: 0.9% Normal Saline (1000mL) 1,000 ML 999 ML IV (22:01)
--- NOTE | 2023-03-26 22:43 | HP.PCM.HOS_ITS ---
HPI - General General Date of Admission: 03/26/23 Date of Service: 03/26/23 Chief Complaint: Black stools and coffee-ground emesis HPI Narrative PARKER BARTH, is a 72 M with a past medical history of essential hypertension, GERD, remote history of peptic ulcer disease with bleeding as a teenager, osteoarthritis and autoimmune hepatitis; on tacrolimus and azathioprine followed by the [facility] who presents to [facility] ER complaining of black stools and coffee-ground emesis. Mr. Barth reports his symptoms began earlier this morning with his stomach not feeling right all day and discomfort in his upper abdomen for a few days with decreased appetite. He then vomited up coffee-ground material and was also noted to have tarry black stools consistent with suspected upper GI bleed. He states he has had multiple endoscopies in the past and has never been diagnosed with varices. He denies currently taking a PPI because he decided he did not think he needed it a few weeks ago. He also denies associated fever, chills or constipation. In the ER he was diagnosed with suspected upper GI bleed due to recurrent peptic ulcer disease with a BUN of 58 mg/dL and a creatinine of 1.37 mg/dL present on admission in the setting of known autoimmune hepatitis and he was then admitted to the PCU for ongoing care for stay that expected to be greater than 48 hours. [facility] Home Medications Metoprolol Succinate 100 mg PO BID heart rate 08/20/19 [History Last Taken Unknown] clonidine HCl 0.1 mg tablet 1.5 tab PO BID 08/20/19 [History Last Taken Unknown] omeprazole 20 mg capsule,delayed release 20 mg PO BID gerd 08/20/19 [History Last Taken Unknown] tacrolimus 1 mg capsule, immediate-release 1 mg PO BID supplement 08/20/19 [History Last Taken Unknown] amlodipine 5 mg tablet 5 mg PO DAILY blood pressure 03/27/23 [History Last Taken Unknown] mycophenolate mofetil 500 mg tablet (CellCept) 500 mg PO BID organ rejection 03/27/23 [History Last Taken Unknown] probenecid 500 mg tablet 500 mg PO BID gout 03/27/23 [History Last Taken Unknown] Allergy/AdvReac Type Severity Reaction Status Date / Time acetaminophen [From Vicodin] Allergy Anaphylaxis Verified 03/26/23 18:42 hydrocodone [From Vicodin] Allergy Anaphylaxis Verified 03/26/23 18:42 Social History Smoking Status: Former smoker ROS ROS Narrative Review of systems: Constitutional: Patient denies fever or chills. ENT: Patient denies runny nose, sore throat or ear pain. Eyes: Patient denies visual changes or discharge from eyes. Cardiovascular: Patient denies chest pain or palpitations. Respiratory: Patient denies shortness of breath or cough. Gastrointestinal patient admits to dark tarry stools with diarrhea type consistency along with coffee-ground emesis as per HPI. Musculoskeletal: Patient denies arthralgias or myalgias. Integumentary patient denies rash or abscess. Neurologic: Patient denies headache, paresthesias or focal neurologic deficits. Endocrine: Patient denies polyuria, polydipsia or polyphagia. Hematologic: Patient denies easy bleeding or easy bruisability. Allergic: Patient denies lip swelling, tongue swelling or urticaria. 14 point review of systems otherwise negative except for positives noted above in HPI. Vital Signs Vital Signs Vital Signs: 03/26/23 18:42 03/26/23 19:55 03/26/23 20:31 Temperature 97.2 F L Temperature Source Temporal Pulse Rate 76 74 79 Respiratory Rate 16 18 Blood Pressure 149/98 H 156/78 H 149/89 H Blood Pressure Mean 115 104 109 Pulse Ox 98 97 Oxygen Delivery Method Room Air Room Air Weight Weight: 184 lb 8.43 oz Body Mass Index (BMI) 25.0 Physical Exam Const alert, oriented x3, no apparent distress, average body habitus and healthy appearing General Appearance: cooperative HEENT normocephalic, head/scalp atraumatic, hearing grossly normal bilaterally and moist oral mucous membranes Eyes PERRL and EOMs intact bilaterally Neck no lymphadenopathy and supple Resp normal respiratory effort, no retractions, no use of accessory muscles and clear to auscultation bilaterally Cardio regular rate and regular rhythm GI normal to inspection, nondistended, normoactive bowel sounds, soft to palpation, non-tender and non-distended Extremity normal to inspection and full ROM Skin Skin Narrative: Patient has no evidence of rash at this time. Neuro oriented x3, CN's II-XII intact bilaterally, moves all extremities and no focal motor deficits Sensorium / Orientation: awake, alert, oriented to person, oriented to place and oriented to time Speech: speech normal Motor Exam: strength 5/5 throughout Psych affect normal Results Medical Records Data Attestation: I reviewed the patient's medical records Lab / Micro Data Attestation: I reviewed the patient's lab results. 03/26/23 19:50 03/26/23 19:50 Labs: Laboratory Results - last 24 hr 03/26/23 19:50: WBC 9.9, RBC 3.80 L, Hgb 11.9 L, Hct 36.0 L, MCV 94.7 H, MCH 31.3, MCHC 33.1, RDW Std Deviation 46.8 H, RDW Coeff of Donna 13.6, Plt Count 86 L , MPV 13.4 H, Immature Gran % (Auto) 0.400, Neut % (Auto) 73.9 H, Lymph % (Auto) 16.9 L, Starr % (Auto) 7.6, Eos % (Auto) 0.9, Baso % (Auto) 0.3, Absolute Neuts ( auto) 7.3, Absolute Lymphs (auto) 1.67, Nucleated RBC % 0, Sodium 138, Potassium 4.2, Chloride 106, Carbon Dioxide 27.0, Anion Gap 5, BUN 58 H, Creatinine 1.37 H , Estim Creat Clear Calc 51.92, Est GFR (MDRD) Af Amer 65, Est GFR (MDRD) Non-Af 54 L, BUN/Creatinine Ratio 42.3 H, Glucose 224 H, Calcium 9.1, Total Bilirubin 1.10 H, AST 62 H, ALT 65 H, Alkaline Phosphatase 194 H, Total Protein 7.2, Albumin 3.1 L, Globulin 4.1, Albumin/Globulin Ratio 0.8 L 03/26/23 21:21: Urine Color Yellow, Urine Clarity Clear, Urine pH 6.0, Ur Specific Hammond 1.015, Urine Protein 100 H, Urine Glucose (UA) 100 H, Urine Ketones 5 H, Urine Occult Blood Negative, Urine Nitrite Negative, Urine Bilirubin Negative, Urine Urobilinogen Normal, Ur Leukocyte Esterase Negative, Urine RBC 0 SEEN, Urine WBC 0 SEEN, Ur Squamous Epith Cells 0 SEEN, Urine Bacteria 0 SEEN, Urine Mucus 0 SEEN Assessment & Plan Assessment/Plan (1) Acute upper gastrointestinal bleeding: (2) Thrombocytopenia: (3) Anemia: QUALIFIERS: Anemia type: unspecified type Qualified Code(s): D64.9 - Anemia, unspecified (4) Autoimmune hepatitis: (5) Diarrhea: QUALIFIERS: Diarrhea type: unspecified type Qualified Code(s): R19.7 - Diarrhea, unspecified PLAN: Plan 1. Upper GI bleed likely due to peptic ulcer disease that is recurrent evidenced by a BUN of 58 mg/dL and a serum creatinine of 1.37 mg/dL present on admission in the setting of chronic GERD with patient now on PPI and remote history of GI bleed due to peptic ulcer disease as a teenager - Admit to PCU. Keep strict NPO and continue Protonix drip begun in the ER. Check stool studies with reports of diarrhea. Finally, we will consult the relocation specialist on- call to see this patient on rounds in the a.m. for recommendations regarding EGD this admission with help appreciated in advance. 2. Remote history of peptic ulcer disease with bleeding as a teenager with patient deciding to stop his PPI a few weeks ago precipitating #1 - Patient was encouraged to speak with one of his doctors before stopping any medications. 3. Autoimmune hepatitis; on tacrolimus and azathioprine followed by the [facility] complicating #1 & #2 - Noted. Restart oral medications once EGD is completed and patient is cleared to restart his diet by GI. 4. Essential hypertension - Hold scheduled antihypertensives and give IV hydralazine prn for systolic blood pressure > 160 mm Hg. 5. Osteoarthritis - Stable. 6. DVT prophylaxis - SCD's only due to the fact that chemoprophylaxis for DVT is contraindicated at this time for this patient with recent GI bleed. Total time: Approximately 55 minutes. Charges/Coding Visit Charges Inpatient E&M: 72839 Init Hosp L2
--- NOTE | 2023-03-26 23:00 | CON.PCM.GI_ITS ---
HPI Consult Data Date of Consult: 03/26/23 HPI Narrative Reason for Consultation: GI bleed HPI Narrative: PARKER BARTH, is a 72 M who presents after he had multiple black bowel movements starting this morning. He states his stomach just has not felt right in the upper abdomen for few days and he has not been eating. He is not really having abdominal pain now though. He had a ulcer when he was very young but never since. He has had multiple endoscopies. He has had 2 CT scans recently. 1 as part of regular every 6- month scan in 1 because he started some new protocol for his autoimmune hepatitis. He is on multiple meds including azathioprine and tacrolimus for this. He is not on anything for such as a PPI. While he was here, he threw up once and he threw up black material. No bright red on either end. No fever. He has a past medical history of essential hypertension, GERD, remote history of peptic ulcer disease with bleeding as a teenager, osteoarthritis and autoimmune hepatitis; on tacrolimus and azathioprine followed by the [facility] who presents to [facility] ER complaining of black stools and coffee-ground emesis. Mr. Barth reports his symptoms began earlier this morning with his stomach not feeling right all day and discomfort in his upper abdomen for a few days with decreased appetite. He then vomited up coffee-ground material and was also noted to have tarry black stools consistent with suspected upper GI bleed. He states he has had multiple endoscopies in the past and has never been diagnosed with varices. He denies currently taking a PPI because he decided he did not think he needed it a few weeks ago. He also denies associated fever, chills or constipation. In the ER he was diagnosed with suspected upper GI bleed due to recurrent peptic ulcer disease with a BUN of 58 mg/dL and a creatinine of 1.37 mg/dL present on admission in the setting of known autoimmune hepatitis. [facility] Home Medications Metoprolol Succinate 100 mg PO BID heart rate 08/20/19 [History Last Taken Unknown] clonidine HCl 0.1 mg tablet 1.5 tab PO BID 08/20/19 [History Last Taken Unknown] omeprazole 20 mg capsule,delayed release 20 mg PO BID gerd 08/20/19 [History Last Taken Unknown] tacrolimus 1 mg capsule, immediate-release 1 mg PO BID supplement 08/20/19 [History Last Taken Unknown] amlodipine 5 mg tablet 5 mg PO DAILY blood pressure 03/27/23 [History Last Taken Unknown] metoprolol succinate 100 mg tablet,extended release 24 hr 100 mg PO Q12H heart 03/27/23 [History Last Taken Unknown] mycophenolate mofetil 500 mg tablet (CellCept) 500 mg PO BID organ rejection 03/27/23 [History Last Taken Unknown] probenecid 500 mg tablet 500 mg PO BID gout 03/27/23 [History Last Taken Unknown] Allergy/AdvReac Type Severity Reaction Status Date / Time acetaminophen [From Vicodin] Allergy Anaphylaxis Verified 03/26/23 18:42 hydrocodone [From Vicodin] Allergy Anaphylaxis Verified 03/26/23 18:42 Social History Smoking Status: Former smoker ROS ROS Narrative Review of systems: Constitutional: Patient denies fever or chills. ENT: Patient denies runny nose, sore throat or ear pain. Eyes: Patient denies visual changes or discharge from eyes. Cardiovascular: Patient denies chest pain or palpitations. Respiratory: Patient denies shortness of breath or cough. Gastrointestinal patient admits to dark tarry stools with diarrhea type consistency along with coffee-ground emesis as per HPI. Musculoskeletal: Patient denies arthralgias or myalgias. Integumentary patient denies rash or abscess. Neurologic: Patient denies headache, paresthesias or focal neurologic deficits. Endocrine: Patient denies polyuria, polydipsia or polyphagia. Hematologic: Patient denies easy bleeding or easy bruisability. Allergic: Patient denies lip swelling, tongue swelling or urticaria. 14 point review of systems otherwise negative except for positives noted above in HPI. Physical Exam Const alert, oriented x3, no apparent distress, average body habitus and healthy appearing General Appearance: cooperative HEENT normocephalic, head/scalp atraumatic, hearing grossly normal bilaterally and moist oral mucous membranes Eyes PERRL and EOMs intact bilaterally Neck no lymphadenopathy and supple Resp normal respiratory effort, no retractions, no use of accessory muscles and clear to auscultation bilaterally Cardio regular rate and regular rhythm GI normal to inspection, nondistended, normoactive bowel sounds, soft to palpation, non-tender and non-distended Extremity normal to inspection and full ROM Skin Skin Narrative: Patient has no evidence of rash at this time. Neuro oriented x3, CN's II-XII intact bilaterally, moves all extremities and no focal motor deficits Sensorium / Orientation: awake, alert, oriented to person, oriented to place and oriented to time Speech: speech normal Motor Exam: strength 5/5 throughout Psych affect normal Lab / Micro Data 03/27/23 10:43 03/27/23 06:20 Labs: Laboratory Results - last 24 hr 03/26/23 19:50: WBC 9.9, RBC 3.80 L, Hgb 11.9 L, Hct 36.0 L, MCV 94.7 H, MCH 31.3, MCHC 33.1, RDW Std Deviation 46.8 H, RDW Coeff of Donna 13.6, Plt Count 86 L , MPV 13.4 H, Immature Gran % (Auto) 0.400, Neut % (Auto) 73.9 H, Lymph % (Auto) 16.9 L, [place] % (Auto) 7.6, Eos % (Auto) 0.9, Baso % (Auto) 0.3, Absolute Neuts (auto) 7.3, Absolute Lymphs (auto) 1.67, Nucleated RBC % 0, Sodium 138, Potassium 4.2, Chloride 106, Carbon Dioxide 27.0, Anion Gap 5, BUN 58 H, Creatinine 1.37 H, Estim Creat Clear Calc 51.92, Est GFR (MDRD) Af Amer 65, Est GFR (MDRD) Non-Af 54 L, BUN/Creatinine Ratio 42.3 H, Glucose 224 H, Calcium 9.1, Total Bilirubin 1.10 H, AST 62 H, ALT 65 H, Alkaline Phosphatase 194 H, Total Protein 7.2, Albumin 3.1 L, Globulin 4.1, Albumin/Globulin Ratio 0.8 L 03/26/23 21:21: Urine Color Yellow, Urine Clarity Clear, Urine pH 6.0, Ur Specific [place] 1.015, Urine Protein 100 H, Urine Glucose (UA) 100 H, Urine Ketones 5 H, Urine Occult Blood Negative, Urine Nitrite Negative, Urine Bilirubin Negative, Urine Urobilinogen Normal, Ur Leukocyte Esterase Negative, Urine RBC 0 SEEN, Urine WBC 0 SEEN, Ur Squamous Epith Cells 0 SEEN, Urine Bacteria 0 SEEN, Urine Mucus 0 SEEN 03/27/23 00:07: Blood Type O POSITIVE, Antibody Screen NEGATIVE 03/27/23 06:20: WBC 5.7, RBC 3.10 L, Hgb 9.8 L, Hct 29.2 L, MCV 94.2 H, MCH 31.6, MCHC 33.6, RDW Std Deviation 47.4 H, RDW Coeff of Donna 13.8, Plt Count 61 L , MPV 13.9 H, Immature Gran % (Auto) 0.200, Neut % (Auto) 65.7, Lymph % (Auto) 24.3, [place] % (Auto) 8.5, Eos % (Auto) 1.1, Baso % (Auto) 0.2, Absolute Neuts (auto) 3.7, Absolute Lymphs (auto) 1.38, Nucleated RBC % 0, PT 17.2 H, INR 1.4, Sodium 142, Potassium 3.7, Chloride 114 H, Carbon Dioxide 22.0, Anion Gap 6, BUN 52 H, Creatinine 1.20, Estim Creat Clear Calc 59.28, Est GFR (MDRD) Af Amer 76, Est GFR (MDRD) Non-Af 63, BUN/Creatinine Ratio 43.3 H, Glucose 157 H, Calcium 8.2 L, Phosphorus 2.5, Magnesium 1.5 L, Total Bilirubin 0.80, AST 52 H, ALT 51, Alkaline Phosphatase 155 H, Total Protein 6.3 L, Albumin 2.8 L, Globulin 3.5, Albumin/Globulin Ratio 0.8 L, TSH 0.59 03/27/23 10:43: Hgb 10.7 L Micro: Microbiology 03/26/23 22:19 Stool Stool Lactoferrin - Final 03/26/23 22:19 Stool Enteric Bacteriology - Final Assessment & Plan Assessment/Plan (1) Acute upper gastrointestinal bleeding: (2) Thrombocytopenia: (3) Anemia: QUALIFIERS: Anemia type: unspecified type Qualified Code(s): D64.9 - Anemia, unspecified (4) Autoimmune hepatitis: (5) Diarrhea: QUALIFIERS: Diarrhea type: unspecified type Qualified Code(s): R19.7 - Diarrhea, unspecified PLAN: Plan 72-year-old gentleman with complicated past medical history of autoimmune hepatitis on 4 immunosuppressive's and budesonide comes in with an upper GI bleed. Upper GI bleed likely due to peptic ulcer disease that is recurrent evidenced by a BUN of 58 mg/dL and a serum creatinine of 1.37 mg/dL present on admission in the setting of chronic GERD with patient now on PPI and remote history of GI bleed due to peptic ulcer disease He will need to undergo an upper endoscopy. He was explained alternatives, risk, benefits including not withstanding bleeding, infection, sepsis, perforation, need for emergent and . Have an ASA of 3. Remote history of peptic ulcer disease with bleeding as a teenager with patient deciding to stop his PPI a few weeks ago precipitating #1 - Patient was encouraged to speak with one of his doctors before stopping any medications. Autoimmune hepatitis; on tacrolimus, mycophenolate , budesonide and azathioprine followed by the [facility] c Charges/Coding Visit Charges Inpatient E&M: 96684 Init Hosp L3
--- OUTSIDE RECORDS SUMMARY | 2023-03-26 23:03 | XMS RPT_ITS | CCD ---
Author Name Unknown Address [address] [place] [address] Organization [facility] Care Team Providers Care Community Relations Advisor Name Role Phone SHAVON FAN Unavailable Unavailable CEBUL, GRAY Unavailable Unavailable CEBUL, GRAY Unavailable Unavailable SHAVON FAN Unavailable Unavailable SHAVON FAN Unavailable Unavailable CEBUL, GRAY Unavailable Unavailable SHAVON FAN E Unavailable Unavailable CEBUL III, GRAY A Unavailable Unavailable Flako Ornelas MD Primary Care Provider Kleber KWON, Caitlin Unavailable Flako Ornelas MD Primary Care Provider Kleber KWON, Marelly Unavailable Flako Ornelas MD Primary Care Provider Flako Ornelas MD Primary Care Provider Kleber KWON, Marelly Unavailable [phone] Kleber KWON, Marelly Unavailable REILLY SHARMA Attending [...] YADIRA, FLAKO J Primary Care Unavailable Chema, Hemalatah Attending Unavailable Allergies Allergy Classification Reported Allergen(s) Allergy Type Date of Onset Reaction(s) Facility (20 sources) acetaminophen / HYDROcodone; Translations: [HYDROCODONE-ACET AMINOPHEN] Drug Allergy 7 Anaphylaxis [facility] Repository (20 sources) valsartan; Translations: [VALSARTAN] Drug Allergy 8 Intolerance [facility] Repository (20 sources) Acetaminophen / oxyCODONE; Translations: [OXYCODONE-ACETAM INOPHEN] Drug Allergy 8 Shortness of Breath [facility] (20 sources) Hibiscus; Translations: [HIBISCUS] Drug Allergy 1 Hives, Shortness of Breath [facility] Medications Current Medications Medication Drug Class(es) Dates [...] aftercare (3 sources) Antibiotic prophylaxis indicated; Translations: [alf (current) use of antibiotics] Episodic Other circulatory [...] Episodic Other infections; including parasitic (20 sources) [place] spotted fever; Translations: [Spotted fever due to [...] 03-04-2023 09:45-0500 Body temperature 98.1 [degF] Nurse [facility] Work Phone: [facility] 03-04-2023 09:45-0500 Diastolic blood pressure 79 mm[Hg] Nurse [facility] Work Phone: [facility] 03-04-2023 09:45-0500 Heart rate 55 /min Nurse [facility] Work Phone: [facility] 03-04-2023 09:45-0500 Respiratory rate 18 /min Nurse [facility] Work Phone: [facility] 03-04-2023 09:45-0500 SaO2% (BldA) [Mass fraction] 96 % Nurse [facility] Work Phone: [facility] 03-04-2023 09:45-0500 Systolic blood pressure 137 mm[Hg] Nurse [facility] Work Phone: [facility] 02-08-2023 14:47-0500 Body height 182.9 cm Myra Segundo APRN.COSTUME MISTRESS Work Phone: [facility] 02-08-2023 14:47-0500 Body temperature 98.71 [degF] Myra Segundo APRN.COSTUME MISTRESS Work Phone: [facility] 02-08-2023 14:47-0500 Body weight 84.46 kg Myra Sami FIREWORKS ASSEMBLY SUPERVISOR.[employer] MISTRESS Work Phone: [facility] 02-08-2023 14:47-0500 Diastolic blood pressure 80 mm[Hg] Myra Segundo FIREWORKS ASSEMBLY SUPERVISOR.COSTUME MISTRESS Work Phone: [facility] 02-08-2023 14:47-0500 Heart rate 57 /min Myra Segundo FIREWORKS ASSEMBLY SUPERVISOR.COSTUME MISTRESS Work Phone: [facility] 02-08-2023 14:47-0500 SaO2% (BldA) [Mass fraction] 97 % Myra Segundo FIREWORKS ASSEMBLY SUPERVISOR.COSTUME MISTRESS Work Phone: [facility] 02-08-2023 14:47-0500 Systolic blood pressure 144 mm[Hg] Myra Segundo FIREWORKS ASSEMBLY SUPERVISOR.COSTUME MISTRESS Work Phone: [facility] 09-30-2022 14:01-0400 Body weight 83.92 kg Evelin Reich FIREWORKS ASSEMBLY SUPERVISOR.COSTUME MISTRESS Work Phone: [facility] 09-23-2022 12:39-0400 Body height 182.9 cm Hemalatha Bear MD Work Phone: [facility] 09-23-2022 12:39-0400 Body temperature 98.4 [degF] Hemalatha Bear MD Work Phone: [facility] 09-23-2022 12:39-0400 Body weight 85.28 kg Hemalatha Bear MD Work Phone: [facility] 09-23-2022 12:39-0400 Diastolic blood pressure 80 mm[Hg] Hemalatha Bear MD Work Phone: [facility] 09-23-2022 12:39-0400 Heart rate 60 /min Hemalatha Bear MD Work Phone: [facility] 09-23-2022 12:39-0400 SaO2% (BldA) [Mass fraction] 96 % Hemalatha Bear MD Work Phone: [facility] 09-23-2022 12:39-0400 Systolic blood pressure 133 mm[Hg] Hemalatha Bear MD Work Phone: [facility] 07-13-2022 15:39-0400 Body weight 85.73 kg Bernadette Miles MD Work Phone: [facility] 07-13-2022 15:39-0400 Diastolic blood pressure 90 mm[Hg] Bernadette Miles MD Work Phone: [facility] 07-13-2022 15:39-0400 Heart rate 62 /min Bernadette Miles MD Work Phone: [facility] 07-13-2022 15:39-0400 SaO2% (BldA) [Mass fraction] 98 % Bernadette Miles MD Work Phone: [facility] 07-13-2022 15:39-0400 Systolic blood pressure 140 mm[Hg] Bernadette Miles MD Work Phone: [facility] 04-20-2022 10:01-0500 Body weight 84.82 kg Flako Ornelas MD Work Phone: [facility] 04-20-2022 10:01-0500 Diastolic blood pressure 88 mm[Hg] Flako Ornelas MD Work Phone: [facility] 04-20-2022 10:01-0500 Heart rate 54 /min Flako Ornelas MD Work Phone: [facility] 04-20-2022 10:01-0500 SaO2% (BldA) [Mass fraction] 97 % Flako Ornelas MD Work Phone: [facility] 04-20-2022 10:01-0500 Systolic blood pressure 147 mm[Hg] Flako Ornelas MD Work Phone: [facility] 12-22-2021 15:21-0400 Body height 182.9 cm Flako Ornelas MD Work Phone: [facility] 12-22-2021 15:21-0400 Body weight 84.73 kg Flako Ornelas MD Work Phone: [facility] 12-22-2021 15:21-0400 Diastolic blood pressure 92 mm[Hg] Flako Ornelas MD Work Phone: [facility] 12-22-2021 15:21-0400 Heart rate 53 /min Flako Ornelas MD Work Phone: [facility] 12-22-2021 15:21-0400 SaO2% (BldA) [Mass fraction] 98 % Flako Ornelas MD Work Phone: [facility] 12-22-2021 15:21-0400 Systolic blood pressure 160 mm[Hg] Flako Ornelas MD Work Phone: [facility] 10-20-2021 13:01-0400 Body height 182.9 cm Bernadette Miles MD Work Phone: [facility] 10-20-2021 13:01-0400 Body weight 84.37 kg Bernadette Miles MD Work Phone: [facility] 10-20-2021 13:01-0400 Diastolic blood pressure 80 mm[Hg] Bernadette Miles MD Work Phone: [facility] 10-20-2021 13:01-0400 Heart rate 50 /min Bernadette Miles MD Work Phone: [facility] 10-20-2021 13:01-0400 SaO2% (BldA) [Mass fraction] 97 % Bernadette Miles MD Work Phone: [facility] 10-20-2021 13:01-0400 Systolic blood pressure 126 mm[Hg] Bernadette Miles MD Work Phone: [facility] 10-16-2021 11:07-0400 Body weight 83.01 kg Flako Ornelas MD Work Phone: [facility] 10-16-2021 11:07-0400 Diastolic blood pressure 78 mm[Hg] Flako Ornelas MD Work Phone: [facility] 10-16-2021 11:07-0400 Heart rate 59 /min Flako Ornelas MD Work Phone: [facility] 10-16-2021 11:07-0400 SaO2% (BldA) [Mass fraction] 99 % Flako Ornelas MD Work Phone: [facility] 10-16-2021 11:07-0400 Systolic blood pressure 136 mm[Hg] Flako Ornelas MD Work Phone: [facility] Encounters Encounter Date Encounter Type Care Provider Facility Start: 03-24-2023 ambulatory [facility] Facility :[facility] Start: 03-19-2023 End: 03-20-2023 ambulatory [facility] Facility:[facility] Start: 03-11-2023 End: 03-11-2023 ambulatory [facility] Facility:[facility] Start: 03-04-2023 End: 03-04-2023 ambulatory [facility] Facility:[facility] Start: 03-04-2023 End: 03-04-2023 Nursing evaluation of patient and report Nurse [facility] Work Phone: Clinical Research Procedures Date [...] Activity Detail Author Start: 04-15-2030 Colonoscopy COLONOSCOPY [facility] Start: 04-15-2030 COLORECTAL CANCER SCREENING COLORECTAL CANCER SCREENING [facility] Start: 04-15-2030 Screening for malign ant neoplasm of colon [facility] Start: 09-07-2024 Urine microalbumin profile [facility] Start: 03-04-2024 Hepatitis B surface antibody level LDL Cholesterol [facility] Start: 01-16-2024 Annual PCP Team Sales Support Specialist colette Disease Visit Annual PCP Team Chronic Disease Visit [facility] Start: 01-16-2024 BP Controlled (<130/80) BP Controlle d (<130/80) [facility] Start: 01-16-2024 RSV Vaccine (1 - 1-d ose 60+ series) RSV Vaccine (1 - 1-dose 60+ series) [facility] Immunizations Immunization Date Immunization Notes Care Provider Fa cili 01-26-2023 respiratory syncytia l virus (RSV) vaccine, adjuvanted (AREXVY) Caitlin Shahid MD Work Phone: [facility] 01-15-2023 influenza (HD-IIV4) vaccine, age 65+ yr, high dose, quadrivalent, PF (FLUZONE HIGH-DOSE) Caitlin Shahid MD Work Phone: [facility] 10-18-2022 COVID-19 vaccine, ag e 12+ yr, bivalent (PFIZER-BIONTECH) Hemalatha Bear MD Work Phone: [facility] 03-23-2022 COVID-19 booster vaccine, age 12+ yr, bivalent (PFIZER-BIONTECH) Flako Ornelas MD Work Phone: [facility] 01-16-2022 influenza, high-dose , quadrivalent vaccine (FLUZONE HIGH DOSE QUADRIVALENT) Flako Ornelas MD Work Phone: [facility] 01-16-2022 influenza virus vaccine, unspecified formulation Flako Ornelas MD Work Phone: [facility] 11-04-2021 influenza (aIIV4) vaccine, age 65+ yr, quadrivalent, PF (FLUAD QUADRIVALENT) Flako Ornelas MD Work Phone: [facility] 10-22-2021 pneumococcal (PCV20) vaccine, 20 valent (PREVNAR 20) Flako Ornelas MD Work Phone: [facility] 11-18-2020 influenza virus vaccine, unspecified formulation Flako Ornelas MD Work Phone: [facility] 11-08-2020 COVID-19 vaccine, ag e 12+ yr (PFIZER-BIONTECH - PURPLE TOP) Caitlin Shahid MD Work Phone: [facility] 05-17-2020 COVID-19 vaccine, ag e 12+ yr (PFIZER-BIONTECH - PURPLE TOP) Caitlin Shahid MD Work Phone: [facility] 04-26-2020 COVID-19 vaccine, ag e 12+ yr (PFIZER-BIONTECH - PURPLE TOP) Caitlin Shahid MD Work Phone: [facility] 11-27-2019 influenza virus vaccine, unspecified formulation Caitlin Shahid MD Work Phone: [facility] 11-24-2019 influenza, high dose seasonal, preservative-free Caitlin Shahid MD Work Phone: [facility] 08-29-2019 hepatitis B vaccine, adult dosage Caitlin Shahid MD Work Phone: [facility] Work Phone: 04-13-2019 typhoid vaccine, unspecified formulation Caitlin Shahid MD Work Phone: [facility] 03-28-2019 zoster vaccine recombinant Caitlin Shahid MD Work Phone: [facility] 01-19-2019 hepatitis B vaccine, adult dosage Caitlin Shahid MD Work Phone: [facility] Work Phone: 01-18-2019 zoster vaccine recombinant Caitlin Shahid MD Work Phone: [facility] 12-20-2018 Hepatitis B vaccine (recombinant), CpG adjuvanted Caitlin Shahid MD Work Phone: [facility] 11-08-2018 Seasonal trivalent influenza vaccine, adjuvanted, preservative free Caitlin Shahid MD Work Phone: [facility] 12-02-2017 influenza, high dose seasonal, preservative-free Caitlin Shahid MD Work Phone: [facility] 12-14-2016 influenza, high dose seasonal, preservative-free Caitlin Shahid MD Work Phone: [facility] 09-26-2015 pneumococcal conjuga te vaccine, 13 valent Caitlin Shahid MD Work Phone: [facility] 09-26-2015 pneumococcal polysaccharide vaccine, [address] (I-Stat) Work Phone: [facility] 09-07-2014 tetanus toxoid, redu sherron diphtheria toxoid, and acellular pertussis vaccine, adsorbed Caitlin Shahid MD Work Phone: [facility] 09-05-2013 pneumococcal polysaccharide vaccine, 23 valent Caitlin Shahid MD Work Phone: [facility] Payers Date Payer Category Payer Private Health Insurance [facility] AARP SUPPLEMENT [id number] 2017-Present [phone] [address] [place] [address] Indemnity [id number] 2017 Private Health Insurance [facility] AARP SUPPLEMENT [id number] 2017-Present [phone] [address] [place] [address] Indemnity [id number] 2017 Unknown [id number] 2013 Medicare MEDICARE MEDICAR E A AND B [id number] 2013-Present [phone] [place] [address] Medicare [id number] 2013 Medicare MEDICARE MEDICAR E A AND B [id number] 2013-Present [phone] [place] [address] Medicare [id number] 2013 Medicare [id number] Medicare [id number] Social History Date Type Detail Facility Start: 09-05-2019 End: 12-22-2021 Tobacco smoking status NHIS Ex-smoker [facility] End: 07-06-2019 History of tobacco use Current smoker [facility] End: 07-06-2019 History of tobacco use Cigar Smoker [facility] Start: 09-05-2019 End: 12-22-2021 Tobacco use and exposure Smokeless tobacco non-user [facility] Start: 04-16-2021 End: 02-08-2023 Alcohol intake Ex-drinker (finding) [facility] Start: 04-16-2021 End: 08-07-2022 Alcohol intake [facility] Start: 04-11-2020 History SDOH Alcohol Frequency 2 [facility] Start: 04-11-2020 History SDOH Alcohol Std Drinks 1 [facility] Start: 04-11-2020 History SDOH Social Connections Phone 5 [facility] Start: 04-11-2020 History SDOH Social Connections Meetings 3 [facility] Start: 04-11-2020 History SDOH Physica l Activity DPW 4 [facility] Start: 04-11-2020 Education 17 [facility] Start: 07-14-2017 End: 12-22-2021 Tobacco Comment 07/14/17: occasional cigar + 2 cigarettes per week [facility] Start: 1950 Sex Assigned At Male [facility] Start: 04-22-2021 End: 12-22-2021 Exposure to SARS-CoV-2 (event) Not sure [facility] Start: 06-14-2021 End: 07-28-2021 Exposure to SARS-CoV-2 (event) Unable to assess [facility] Start: 04-11-2020 End: 08-07-2022 Social connection and isolation panel [facility] Do you belong to any clubs or organizations such as uatsdin groups, unions, fraternal or athletic groups, or school groups? Yes [facility] Are you now , , , , never or living with a partner? [facility] How often to you hav e a drink containing alcohol? Monthly or less [facility] How many standard dr inks containing alcohol do you have on a typical day? 1 or 2 [facility] How often do you hav e 6 or more drinks on 1 occasion? Never [facility] How hard is it for y ou to pay for the very basics like food, housing, medical care, and heating Not hard at all [facility] Do you feel stress - tense, restless, nervous, or anxious, or unable to sleep at night because your mind is troubled all the time - these days [OSQ] Only a little [facility] (I/We) worried wheth er (my/our) food would run out before (I/we) got money to buy more. Never true [facility] In the past 12 month s, was there a time when you were not able to pay the mortgage or rent on time? No [facility] Start: 08-19-2018 Gender identity Identifies as male gender (finding) [facility] Start: 08-19-2018 Sexual orientation Heterosexual (neil alston) [facility] Medical Equipment Procedure Code Equipment Code Equipment Origin al Text Equipment Identifier Dates Gary Pushlock 4.5mm Peek 28mm Suture Self Punch Sterile Disposable - [id number] Start: 06-02-2017 Post Hemicap 12m m Ovoid 32mm Taper Sterile Latex Free Shoulder - [id number] Start: 06-02-2017 Hemicap Resurfac ing System Articular 19mm X 20mm Head Size 52-44mm [id number] Start: 06-02-2017 Component Hemica povo Ovoid Offset Cocr Titanium [id number] Humeral Cannulated - [id number] Start: 06-02-2017 Clinical Notes 07-02-2020 to 03-24-2023 Angeline Romano RN - 03/04/2023 10:00 AM Himanshu Berry RT(Edmond) - 02/16/2023 2:15 PM ESTTelephone Encounter - Nikki López - 02/10/2023 12:38 PM ESTPatient InstructionsPatient Instructions Note Date & Type Note Facility 03-24-2023 Note [facility] 03-11-2023 Note [facility] 03-11-2023 Note [facility] 03-10-2023 Note [facility] 03-04-2023 Note [facility] 03-04-2023 History of Present illness Narrative IRB# [id number] Liver Cirrhosis Network Cohort Study (Protocol version 1 September 03, 2021) PI: Dr. Larkin Research Nurse/Coordinator: Samy Duffy Visit #: Baseline/Visit 1 Subject ID [id number] All Vital Signs will be found in Additional Documentation below Progress Notes in the Encounter CRU to pull tubes for clinical labs (Saliva kit and [place] tube from [facility] Team) Time Point Procedures [...] Angeline Romano RN Study Team Responsibilities Questionnaires, Marine Firefighter Strength, Chair Stands, Balance, Physical Exam, FibroScan (NPO 3hrs) Discharge D/C patient home documented in this encounter [facility] 02-16-2023 Note [facility] 02-16-2023 History of Present illness Narrative Radiology [...] IV DATA: Not applicable SIGNED BY: RT lOman(R) February 16, 2023 2:16 PM documented in this encounter [facility] 02-10-2023 Miscellaneous Notes Call from pharmacy requesting refill. Requested Prescriptions Pending Prescriptions Disp Refills metoprolol succinate ER (TOPROL XL) 100 mg 180 tablet 3 Sig: Take 1 tablet by mouth two times a day. Patient last seen 11/19/2020 Nikki López documented in this encounter [facility] 02-08-2023 Note [facility] 02-08-2023 Instructions Myra Segundo APRN.ZORAIDA - 02/08/2023 3:19 PM EST Schedule ultrasound Follow up with Endocrinology (Cioce) Follow up in 6 months documented in this encounter [facility] 02-08-2023 History of Present illness Narrative NAME: Mateus Barth CLINIC NO: [id number] REFERRING PHYSICIAN: Self PRESENTING COMPLAINT: follow up [...] hospitalizations, or recent illness. Just returned from [facility] yesterday Continues on tacrolimus and MMF Has [...] two times a day. 180 tablet 3 Lwoeglgm7-Vcaufq3-Ocdsz therm. (VSL#3) 112.5 billion cell cap Take [...] 2023 1:56 PM documented in this encounter [facility] 01-27-2023 Note [facility] 01-25-2023 Note [facility] 01-22-2023 Note [facility] 01-22-2023 History of Present illness Narrative 1. Combined forms of age-related cataract of both eyes Mild visual significance Educated patient -will monitor 2. Type 2 diabetes mellitus without retinopathy (HCC) Risk of diabetic changes and vision loss can be minimized by tight control of blood sugar, blood pressure, and cholesterol levels. Educated patient to continue care with primary care doctor and/or sound equipment mechanic to maintain optimum levels as they are [...] 2023 2:53 PM documented in this encounter [facility] 01-20-2023 Note [facility] 01-19-2023 Miscellaneous Notes Call from pharmacy requesting refill. Requested Prescriptions Pending Prescriptions Disp Refills cloNIDine HCl (CATAPRES) 0.1 mg tablet 270 tablet 1 Sig: Take 1.5 tablets by mouth two times a day. Patient last seen 11/19/2020 Estela Board [employer]ater [employer] documented in this encounter [facility] 01-15-2023 Note [facility] 01-13-2023 Note [facility] 12-07-2022 Miscellaneous Notes Patient has been identified [...] Teresa Hernandes LPN documented in this encounter [facility] 12-02-2022 Note [facility] 11-25-2022 Note [facility] 11-16-2022 Note [facility] 11-09-2022 Note [facility] 10-14-2022 Note [facility] 10-14-2022 Note [facility] 10-01-2022 Note [facility] 09-30-2022 Note [facility] 09-30-2022 History of Present illness Narrative NEW [...] AND 1/2 TABLETS BY MOUTH TWICE DAILY Wzlfsupe4-Lgnidy8-Fdbkk therm. (VSL#3) 112.5 billion cell cap Take [...] Evelin Reich CNP documented in this encounter [facility] 09-24-2022 Note [facility] 09-24-2022 Miscellaneous Notes Patient denies any missed [...] have they been? documented in this encounter [facility] 09-23-2022 Note [facility] 09-23-2022 History of Present illness Narrative [facility] Gastroenterology & Hepatology 09/23/2022 Mateus Barth 72 year old male Referring physician or PCP: SELF Flako Ornelas MD Referred by * to the [facility] for opinion regarding * . My final recommendations will be communicated by way of shared Medical Record for internal providers or letter via the [employer] for external providers. Last clinic visit [...] by mouth as directed.^Disp: 60 capsule^Rfl: 1 Gqtaanpp9-Eztmtw4-Bkcim therm. (VSL#3) 112.5 billion cell cap^Take 1 [...] which included preparing to see the patient, vmhs-[id number] patient care, completing clinical documentation, obtaining and/or reviewing separately obtained history, performing a medically appropriate examination, counseling and educating the patient/family/caregiver, ordering medications, tests, or procedures, communicating with other HCPs (not separately reported), independently interpreting results (not separately reported), communicating results to the patient/family/caregiver, and care coordination (not separately reported). Hemalatha Bear MD Dance Hall Host/Hostess, Department of Medicine [facility] documented in this encounter [facility] 09-16-2022 Note [facility] 09-02-2022 Note [facility] 08-28-2022 Note [facility] 08-13-2022 Note [facility] 08-12-2022 Note [facility] 08-10-2022 Note [facility] 08-07-2022 Note [facility] 07-13-2022 Note [facility] 07-13-2022 Instructions Bernadette Miles MD - 07/13/2022 3:57 PM EDT We are scheduling you for an echocardiogram Follow up in three months documented in this encounter [facility] 07-13-2022 History of Present illness Narrative Images from the original note were not included. [facility]ARDIOLOGY Cardiology ([address]) [address] [facility] [address] OUTPATIENT VISIT DATE 07/13/2022 PRIMARY CARE PHYSICIAN: Flaok Ornelas [address] [place] [address] HISTORY OF PRESENT ILLNESS: Mr. Barth is [...] BY MOUTH TWICE DAILY^Disp: 270 tablet^Rfl: 3 Iwucwvyo2-Drlbcb1-Nhxyo therm. (VSL#3) 112.5 billion cell cap^Take 1 [...] Bernadette Miles MD documented in this encounter [facility] 07-01-2022 Note [facility] 06-25-2022 Miscellaneous Notes Call from pharmacy requesting [...] MOUTH TWICE DAILY Patient last seen 11/19/2020 [facility] [employer] documented in this encounter [facility] 06-16-2022 Note [facility] 06-09-2022 Note [facility] 06-08-2022 Miscellaneous Notes Patient has been identified [...] Denae Srivastava LPN documented in this encounter [facility] 05-27-2022 Note [facility] 05-25-2022 Note [facility] 05-25-2022 History of Present illness Narrative Images from the original note were not included. [facility] NOTE CC: Mateus Barth is a [...] time. 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 Past medical history: PAST MEDICAL [...] Take 1 tablet by mouth twice daily Glsqhonq3-Jzgjew6-Ngcch therm. (VSL#3) 112.5 billion cell cap Take [...] 4 - Moderate documented in this encounter [facility] 05-22-2022 Miscellaneous Notes Patient has been identified [...] Teresa Hernandes LPN documented in this encounter [facility] 05-20-2022 Miscellaneous Notes Pt last seen cyndie 10/20/2021. Did you want a follow up appt with pt? Annamarie Garcia RN documented in this encounter [facility] 05-13-2022 Note [facility] 05-06-2022 Note [facility] 04-22-2022 Note [facility] 04-20-2022 Note [facility] 04-20-2022 History of Present illness Narrative Patient [...] Take 1 tablet by mouth twice daily Kphmymtb0-Stocnp8-Idvol therm. (VSL#3) 112.5 billion cell cap Take [...] 2 diabetes mellitus without complication, unspecified whether longterm insulin use (HCC) - ICD9: 250.00, ICD10: E11.9 - elected not to monitor for now. Add januvia at renal dose. - HGB A1C 6. Thrombocytopenia (HCC) - ICD9: 287.5, ICD10: D69.6 7. Throat clearing - ICD9: 786.09, ICD10: R09.89 - CONSULT TO ENT 8. Oral bleeding - ICD9: 528.9, ICD10: K13.79 - CONSULT TO ENT Flako Ornelas MD documented in this encounter [facility] 04-16-2022 Note [facility] 04-13-2022 Note [facility] 04-10-2022 Miscellaneous Notes Called Mateus Barth to remind them of an appointment with Dr. Bear on 04/13/22. Left Message for patient. documented in this encounter [facility] 04-08-2022 Note [facility] 04-08-2022 History of Present illness Narrative POPULATION HEALTH NAVIGATION OUTREACH Action/I LVM DocVueHART MESSAGE SENT ANNUAL MEDICARE WELLNESS BP CONTROLLED [...] 2022 9:51 AM documented in this encounter [facility] 04-07-2022 Note [facility] 04-07-2022 History of Present illness Narrative Radiology [...] 2022 1:58 PM documented in this encounter [facility] 04-01-2022 Note [facility] 03-09-2022 Miscellaneous Notes Patient phones requesting refills as follows: Requested Prescriptions Pending Prescriptions Disp Refills Amoxicillin 500 mg tablet 16 tablet 0 Si mg by mouth 1-2 hours prior to dental procedures Please review and advise. Hever Pascal LPN documented in this encounter [facility] 01-26-2022 Miscellaneous Notes Called and spoke with [...] other questions he had. Please refer to [email or web address] message 12/29/21-while PCP was out on vacation: all questions were addressed by staff & Fabricio. Lorna Watkins MA documented in this encounter [facility] 01-02-2022 Miscellaneous Notes Please see previous [email or web address] message. documented in this encounter [facility] 12-29-2021 Miscellaneous Notes Spoke with [facility] who states they do in fact have the Rx's for the Miranda supplies. Insurance is not covering it. Recommended that patient stop in to pharmacy and give new insurance information so pharmacy can try running it through again. Spoke with patient and informed. Lucinda Damon documented in this encounter [facility] 12-22-2021 History of Present illness Narrative Patient [...] 169 MEDICATIONS: Current Outpatient Medications Medication Sig Bltchrej0-Coimsp1-Ssczb therm. (VSL#3) 112.5 billion cell cap Take [...] Flako Ornelas MD documented in this encounter [facility] 11-11-2021 Miscellaneous Notes Spoke with patient and [...] us to discuss. documented in this encounter [facility] 10-20-2021 Instructions Bernadette Miles MD - 10/20/2021 1:29 PM EDT We are scheduling you for an echocardiogram documented in this encounter [facility] 10-20-2021 History of Present illness Narrative Images from the original note were not included. [facility]OLOGY Cardiology ([facility]) [address] [facility] [address] OUTPATIENT VISIT DATE 10/20/2021 PRIMARY CARE PHYSICIAN: Flako Ornelas [address] [place] [address] CHIEF COMPLAINT: HISTORY OF PRESENT ILLNESS: Mr. Barth is a 71 year old gentleman with a history of hypertrophic cardiomyopathy with ICD implantation in 2012, angiographically normal coronary arteries on prior catheterization 2012, hypertension, and autoimmune hepatitis who presents to establish new cardiology follow-up. He currently lives in the [facility]. He is referred so that he can have closer follow-up to home. He is currently been following at the [facility] for electrophysiology. He has occasional episodes [...] placement in 2012 after a syncopal episode. [facility] 06/02/12: EF 75%, LM, Circumflex and [...] Take 1 capsule by mouth twice daily. Kgqnrzgo6-Frgjiu6-Rjkui therm. (VSL#3) 112.5 billion cell cap Take [...] Bernadette Miles MD documented in this encounter [facility] 10-16-2021 History of Present illness Narrative Patient [...] Will be doing a cruise of the [place] coming up. Will be getting labs before [...] would prefer to avoid. Cardio:seeing Cardiology at [facility]. No chest pain No worsening shortness of [...] bleeding issues. He would like to see [facility] just to follow. PSYCH:sees Dr. Sharma for psych. Uses medical marijuana. Emotionally stable. GOUT:no recent issues. Ortho: sees Dr. Cadena for his finger and seeing Dr. Yap for his knees. MEDICATIONS: Current Outpatient Medications Medication Sig ursodiol (ACTIGALL) 300 mg capsule Take 1 capsule by mouth twice daily. tacrolimus IR (PROGRAF) 1 mg capsule Take 1 capsule by mouth twice daily. Brdqclmv4-Ipxnme2-Ffawy therm. (VSL#3) 112.5 billion cell cap Take [...] month and prn. documented in this encounter [facility] 10-13-2021 History of Present illness Narrative VIRTUAL [...] by mouth twice daily. 60 capsule 5 Kqgsyjtd2-Dcjvsw3-Psuiz therm. (VSL#3) 112.5 billion cell cap Take [...] coordinate I spent more than 40 minutes dulw-lc-jwrd with the patient and over half the time was devoted to counseling and/or coordination of care. Hemalatha Bear MD documented in this encounter [facility] 10-09-2021 Miscellaneous Notes Called Mateus Barth to remind them of an appointment with Dr. Bear on 10/13/2021. Left Message for patient. documented in this encounter [facility] 09-09-2021 Miscellaneous Notes Patient has been identified [...] you. SOLEDAD Alexandre documented in this encounter [facility] 07-31-2021 History of Present illness Narrative Radiology [...] TIME: 12:56 PM documented in this encounter [facility] 07-21-2021 Note HNO ID: [id number] Author: SOLEDAD Ch Service: Radiology Author Type: [...] SOLEDAD Ch July 21, 2021 9:13 AM [facility] 07-21-2021 History of Present illness Narrative [...] 2021 9:13 AM documented in this encounter [facility] 06-24-2021 History of Present illness Narrative VIRTUAL [...] by mouth twice daily. 180 capsule 0 Monrkxyc5-Fccsfq9-Trvpb therm. (VSL#3) 112.5 billion cell cap Take [...] HE I spent more than 40 minutes nrom-pt-tzqu with the patient and over half the time was devoted to counseling and/or coordination of care. Hemalatha Bear MD documented in this encounter [facility] 06-20-2021 Miscellaneous Notes Called Mateus Barth to remind them of an appointment with Dr. Bear on 06/24/2021. Left Message for patient. documented in this encounter [facility] 06-16-2021 Miscellaneous Notes Call from pharmacy requesting refill. Pending Prescriptions Disp Refills CLONIDINE HCL 0.1 MG TABLET 270 tablet 3 Sig: Take 1.5 tablets by mouth twice daily. RAYSA: No Patient last seen 11/19/2020 [facility] [employer] documented in this encounter [facility] 02-12-2021 Note HNO ID: [id number] Author: SOLEDAD Jackson Service: Radiology Author Type: [...] Hebert, SOLEDAD February 12, 2021 4:30 PM [facility] documented as of this encounter (statuses as of 06/16/2021) [facility]04-[facility]2021 History of Past illness Narrative* Problem Noted [...] Overview: Added automatically from request for surgery [id number] Biceps tendinopathy 05/24/2017 10/11/2017 Overview: Added automatically from request for surgery [id number] Rotator cuff tear 05/24/2017 10/11/2017 Overview: Added automatically from request for surgery [id number] Rotator cuff arthropathy, left 03/09/2017 0 10/11/2017 Overview: 2017: Tear left biceps tendon documented as of this encounter (statuses as of 06/20/2021) [facility] History of Past illness Narrative* Problem Noted [...] Overview: Added automatically from request for surgery [id number] Biceps tendinopathy 05/24/2017 10/11/2017 Overview: Added automatically from request for surgery [id number] Rotator cuff tear 05/24/2017 10/11/2017 Overview: Added automatically from request for surgery [id number] Rotator cuff arthropathy, left 03/09/2017 0 10/11/2017 Overview: 2017: Tear left biceps tendon documented as of this encounter (statuses as of 06/24/2021) [facility] History of Past illness Narrative* Problem Noted [...] Overview: Added automatically from request for surgery [id number] Biceps tendinopathy 05/24/2017 10/11/2017 Overview: Added automatically from request for surgery [id number] Rotator cuff tear 05/24/2017 10/11/2017 Overview: Added automatically from request for surgery [id number] Rotator cuff arthropathy, left 03/09/2017 0 10/11/2017 Overview: 2017: Tear left biceps tendon documented as of this encounter (statuses as of 06/25/2021) [facility] History of Past illness Narrative* Problem Noted [...] Overview: Added automatically from request for surgery [id number] Biceps tendinopathy 05/24/2017 10/11/2017 Overview: Added automatically from request for surgery [id number] Rotator cuff tear 05/24/2017 10/11/2017 Overview: Added automatically from request for surgery [id number] Rotator cuff arthropathy, left 03/09/2017 0 10/11/2017 Overview: 2017: Tear left biceps tendon documented as of this encounter (statuses as of 06/30/2021) [facility] History of Past illness Narrative* Problem Noted [...] Overview: Added automatically from request for surgery [id number] Biceps tendinopathy 05/24/2017 10/11/2017 Overview: Added automatically from request for surgery [id number] Rotator cuff tear 05/24/2017 10/11/2017 Overview: Added automatically from request for surgery [id number] Rotator cuff arthropathy, left 03/09/2017 0 10/11/2017 Overview: 2017: Tear left biceps tendon documented as of this encounter (statuses as of 07/08/2021) [facility] History of Past illness Narrative* Problem Noted [...] Overview: Added automatically from request for surgery [id number] Biceps tendinopathy 05/24/2017 10/11/2017 Overview: Added automatically from request for surgery [id number] Rotator cuff tear 05/24/2017 10/11/2017 Overview: Added automatically from request for surgery [id number] Rotator cuff arthropathy, left 03/09/2017 0 10/11/2017 Overview: 2017: Tear left biceps tendon documented as of this encounter (statuses as of 07/22/2021) [facility] History of Past illness Narrative* Problem Noted [...] Overview: Added automatically from request for surgery [id number] Biceps tendinopathy 05/24/2017 10/11/2017 Overview: Added automatically from request for surgery [id number] Rotator cuff tear 05/24/2017 10/11/2017 Overview: Added automatically from request for surgery [id number] Rotator cuff arthropathy, left 03/09/2017 0 10/11/2017 Overview: 2017: Tear left biceps tendon documented as of this encounter (statuses as of 07/22/2021) [facility] History of Past illness Narrative* Problem Noted [...] Overview: Added automatically from request for surgery [id number] Biceps tendinopathy 05/24/2017 10/11/2017 Overview: Added automatically from request for surgery [id number] Rotator cuff tear 05/24/2017 10/11/2017 Overview: Added automatically from request for surgery [id number] Rotator cuff arthropathy, left 03/09/2017 0 10/11/2017 Overview: 2017: Tear left biceps tendon documented as of this encounter (statuses as of 07/23/2021) [facility] History of Past illness Narrative* Problem Noted [...] Overview: Added automatically from request for surgery [id number] Biceps tendinopathy 05/24/2017 10/11/2017 Overview: Added automatically from request for surgery [id number] Rotator cuff tear 05/24/2017 10/11/2017 Overview: Added automatically from request for surgery [id number] Rotator cuff arthropathy, left 03/09/2017 0 10/11/2017 Overview: 2017: Tear left biceps tendon documented as of this encounter (statuses as of 08/01/2021) [facility] History of Past illness Narrative* Problem Noted [...] Overview: Added automatically from request for surgery [id number] Biceps tendinopathy 05/24/2017 10/11/2017 Overview: Added automatically from request for surgery [id number] Rotator cuff tear 05/24/2017 10/11/2017 Overview: Added automatically from request for surgery [id number] Rotator cuff arthropathy, left 03/09/2017 0 10/11/2017 Overview: 2017: Tear left biceps tendon documented as of this encounter (statuses as of 08/05/2021) [facility] History of Past illness Narrative* Problem Noted [...] Overview: Added automatically from request for surgery [id number] Biceps tendinopathy 05/24/2017 10/11/2017 Overview: Added automatically from request for surgery [id number] Rotator cuff tear 05/24/2017 10/11/2017 Overview: Added automatically from request for surgery [id number] Rotator cuff arthropathy, left 03/09/2017 0 10/11/2017 Overview: 2017: Tear left biceps tendon documented as of this encounter (statuses as of 09/02/2021) [facility] History of Past illness Narrative* Problem Noted [...] Overview: Added automatically from request for surgery [id number] Biceps tendinopathy 05/24/2017 10/11/2017 Overview: Added automatically from request for surgery [id number] Rotator cuff tear 05/24/2017 10/11/2017 Overview: Added automatically from request for surgery [id number] Rotator cuff arthropathy, left 03/09/2017 0 10/11/2017 Overview: 2017: Tear left biceps tendon documented as of this encounter (statuses as of 09/09/2021) [facility] History of Past illness Narrative* Problem Noted [...] Overview: Added automatically from request for surgery [id number] Biceps tendinopathy 05/24/2017 10/11/2017 Overview: Added automatically from request for surgery [id number] Rotator cuff tear 05/24/2017 10/11/2017 Overview: Added automatically from request for surgery [id number] Rotator cuff arthropathy, left 03/09/2017 0 10/11/2017 Overview: 2017: Tear left biceps tendon documented as of this encounter (statuses as of 09/24/2021) [facility] History of Past illness Narrative* Problem Noted [...] Overview: Added automatically from request for surgery [id number] Biceps tendinopathy 05/24/2017 10/11/2017 Overview: Added automatically from request for surgery [id number] Rotator cuff tear 05/24/2017 10/11/2017 Overview: Added automatically from request for surgery [id number] Rotator cuff arthropathy, left 03/09/2017 0 10/11/2017 Overview: 2017: Tear left biceps tendon documented as of this encounter (statuses as of 10/09/2021) [facility] History of Past illness Narrative* Problem Noted [...] Overview: Added automatically from request for surgery [id number] Biceps tendinopathy 05/24/2017 10/11/2017 Overview: Added automatically from request for surgery [id number] Rotator cuff tear 05/24/2017 10/11/2017 Overview: Added automatically from request for surgery [id number] Rotator cuff arthropathy, left 03/09/2017 0 10/11/2017 Overview: 2017: Tear left biceps tendon documented as of this encounter (statuses as of 10/13/2021) [facility] History of Past illness Narrative* Problem Noted [...] Overview: Added automatically from request for surgery [id number] Biceps tendinopathy 05/24/2017 10/11/2017 Overview: Added automatically from request for surgery [id number] Rotator cuff tear 05/24/2017 10/11/2017 Overview: Added automatically from request for surgery [id number] Rotator cuff arthropathy, left 03/09/2017 0 10/11/2017 Overview: 2017: Tear left biceps tendon documented as of this encounter (statuses as of 10/16/2021) [facility] History of Past illness Narrative* Problem Noted [...] Overview: Added automatically from request for surgery [id number] Biceps tendinopathy 05/24/2017 10/11/2017 Overview: Added automatically from request for surgery [id number] Rotator cuff tear 05/24/2017 10/11/2017 Overview: Added automatically from request for surgery [id number] Rotator cuff arthropathy, left 03/09/2017 0 10/11/2017 Overview: 2017: Tear left biceps tendon documented as of this encounter (statuses as of 10/17/2021) [facility] History of Past illness Narrative* Problem Noted [...] Overview: Added automatically from request for surgery [id number] Biceps tendinopathy 05/24/2017 10/11/2017 Overview: Added automatically from request for surgery [id number] Rotator cuff tear 05/24/2017 10/11/2017 Overview: Added automatically from request for surgery [id number] Rotator cuff arthropathy, left 03/09/2017 0 10/11/2017 Overview: 2017: Tear left biceps tendon documented as of this encounter (statuses as of 10/20/2021) [facility] History of Past illness Narrative* Problem Noted [...] Overview: Added automatically from request for surgery [id number] Biceps tendinopathy 05/24/2017 10/11/2017 Overview: Added automatically from request for surgery [id number] Rotator cuff tear 05/24/2017 10/11/2017 Overview: Added automatically from request for surgery [id number] Rotator cuff arthropathy, left 03/09/2017 0 10/11/2017 Overview: 2017: Tear left biceps tendon documented as of this encounter (statuses as of 10/23/2021) [facility] History of Past illness Narrative* Problem Noted [...] Overview: Added automatically from request for surgery [id number] Biceps tendinopathy 05/24/2017 10/11/2017 Overview: Added automatically from request for surgery [id number] Rotator cuff tear 05/24/2017 10/11/2017 Overview: Added automatically from request for surgery [id number] Rotator cuff arthropathy, left 03/09/2017 0 10/11/2017 Overview: 2017: Tear left biceps tendon documented as of this encounter (statuses as of 11/14/2021) [facility] History of Past illness Narrative* Problem Noted [...] Overview: Added automatically from request for surgery [id number] Biceps tendinopathy 05/24/2017 10/11/2017 Overview: Added automatically from request for surgery [id number] Rotator cuff tear 05/24/2017 10/11/2017 Overview: Added automatically from request for surgery [id number] Rotator cuff arthropathy, left 03/09/2017 0 10/11/2017 Overview: 2017: Tear left biceps tendon documented as of this encounter (statuses as of 11/18/2021) [facility] History of Past illness Narrative* Problem Noted [...] Overview: Added automatically from request for surgery [id number] Biceps tendinopathy 05/24/2017 10/11/2017 Overview: Added automatically from request for surgery [id number] Rotator cuff tear 05/24/2017 10/11/2017 Overview: Added automatically from request for surgery [id number] Rotator cuff arthropathy, left 03/09/2017 0 10/11/2017 Overview: 2017: Tear left biceps tendon documented as of this encounter (statuses as of 12/08/2021) [facility] History of Past illness Narrative* Problem Noted [...] Overview: Added automatically from request for surgery [id number] Biceps tendinopathy 05/24/2017 10/11/2017 Overview: Added automatically from request for surgery [id number] Rotator cuff tear 05/24/2017 10/11/2017 Overview: Added automatically from request for surgery [id number] Rotator cuff arthropathy, left 03/09/2017 0 10/11/2017 Overview: 2017: Tear left biceps tendon documented as of this encounter (statuses as of 12/09/2021) [facility] History of Past illness Narrative* Problem Noted [...] Overview: Added automatically from request for surgery [id number] Biceps tendinopathy 05/24/2017 10/11/2017 Overview: Added automatically from request for surgery [id number] Rotator cuff tear 05/24/2017 10/11/2017 Overview: Added automatically from request for surgery [id number] Rotator cuff arthropathy, left 03/09/2017 0 10/11/2017 Overview: 2017: Tear left biceps tendon documented as of this encounter (statuses as of 12/09/2021) [facility] History of Past illness Narrative* Problem Noted [...] Overview: Added automatically from request for surgery [id number] Biceps tendinopathy 05/24/2017 10/11/2017 Overview: Added automatically from request for surgery [id number] Rotator cuff tear 05/24/2017 10/11/2017 Overview: Added automatically from request for surgery [id number] Rotator cuff arthropathy, left 03/09/2017 0 10/11/2017 Overview: 2017: Tear left biceps tendon documented as of this encounter (statuses as of 12/22/2021) [facility] History of Past illness Narrative* Problem Noted [...] Overview: Added automatically from request for surgery [id number] Biceps tendinopathy 05/24/2017 10/11/2017 Overview: Added automatically from request for surgery [id number] Rotator cuff tear 05/24/2017 10/11/2017 Overview: Added automatically from request for surgery [id number] Rotator cuff arthropathy, left 03/09/2017 0 10/11/2017 Overview: 2017: Tear left biceps tendon documented as of this encounter (statuses as of 12/23/2021) [facility] History of Past illness Narrative* Problem Noted [...] Overview: Added automatically from request for surgery [id number] Biceps tendinopathy 05/24/2017 10/11/2017 Overview: Added automatically from request for surgery [id number] Rotator cuff tear 05/24/2017 10/11/2017 Overview: Added automatically from request for surgery [id number] Rotator cuff arthropathy, left 03/09/2017 0 10/11/2017 Overview: 2017: Tear left biceps tendon documented as of this encounter (statuses as of 12/23/2021) [facility]04-13-2021 History of Past illness Narrative* Problem Noted [...] Overview: Added automatically from request for surgery [id number] Biceps tendinopathy 05/24/2017 10/11/2017 Overview: Added automatically from request for surgery [id number] Rotator cuff tear 05/24/2017 10/11/2017 Overview: Added automatically from request for surgery [id number] Rotator cuff arthropathy, left 03/09/2017 0 10/11/2017 Overview: 2017: Tear left biceps tendon documented as of this encounter (statuses as of 12/29/2021) [facility]04-13-2021 History of Past illness Narrative* Problem Noted [...] Overview: Added automatically from request for surgery [id number] Biceps tendinopathy 05/24/2017 10/11/2017 Overview: Added automatically from request for surgery [id number] Rotator cuff tear 05/24/2017 10/11/2017 Overview: Added automatically from request for surgery [id number] Rotator cuff arthropathy, left 03/09/2017 0 10/11/2017 Overview: 2017: Tear left biceps tendon documented as of this encounter (statuses as of 12/29/2021) [facility]04-13-2021 History of Past illness Narrative* Problem Noted [...] Overview: Added automatically from request for surgery [id number] Biceps tendinopathy 05/24/2017 10/11/2017 Overview: Added automatically from request for surgery [id number] Rotator cuff tear 05/24/2017 10/11/2017 Overview: Added automatically from request for surgery [id number] Rotator cuff arthropathy, left 03/09/2017 0 10/11/2017 Overview: 2017: Tear left biceps tendon documented as of this encounter (statuses as of 01/02/2022) [facility]04-13-2021 History of Past illness Narrative* Problem Noted [...] Overview: Added automatically from request for surgery [id number] Biceps tendinopathy 05/24/2017 10/11/2017 Overview: Added automatically from request for surgery [id number] Rotator cuff tear 05/24/2017 10/11/2017 Overview: Added automatically from request for surgery [id number] Rotator cuff arthropathy, left 03/09/2017 0 10/11/2017 Overview: 2017: Tear left biceps tendon documented as of this encounter (statuses as of 01/13/2022) [facility]04-13-2021 History of Past illness Narrative* Problem Noted [...] Overview: Added automatically from request for surgery [id number] Biceps tendinopathy 05/24/2017 10/11/2017 Overview: Added automatically from request for surgery [id number] Rotator cuff tear 05/24/2017 10/11/2017 Overview: Added automatically from request for surgery [id number] Rotator cuff arthropathy, left 03/09/2017 0 10/11/2017 Overview: 2017: Tear left biceps tendon documented as of this encounter (statuses as of 01/26/2022) [facility]04-13-2021 History of Past illness Narrative* Problem Noted [...] Overview: Added automatically from request for surgery [id number] Biceps tendinopathy 05/24/2017 10/11/2017 Overview: Added automatically from request for surgery [id number] Rotator cuff tear 05/24/2017 10/11/2017 Overview: Added automatically from request for surgery [id number] Rotator cuff arthropathy, left 03/09/2017 0 10/11/2017 Overview: 2017: Tear left biceps tendon documented as of this encounter (statuses as of 03/09/2022) [facility]04-13[facility]2021 History of Past illness Narrative* Problem Noted [...] Overview: Added automatically from request for surgery [id number] Biceps tendinopathy 05/24/2017 10/11/2017 Overview: Added automatically from request for surgery [id number] Rotator cuff tear 05/24/2017 10/11/2017 Overview: Added automatically from request for surgery [id number] Rotator cuff arthropathy, left 03/09/2017 0 10/11/2017 Overview: 2017: Tear left biceps tendon documented as of this encounter (statuses as of 03/14/2022) [facility]04-13[facility]2021 History of Past illness Narrative* Problem Noted [...] Overview: Added automatically from request for surgery [id number] Biceps tendinopathy 05/24/2017 10/11/2017 Overview: Added automatically from request for surgery [id number] Rotator cuff tear 05/24/2017 10/11/2017 Overview: Added automatically from request for surgery [id number] Rotator cuff arthropathy, left 03/09/2017 0 10/11/2017 Overview: 2017: Tear left biceps tendon documented as of this encounter (statuses as of 03/26/2022) [facility]04[facility]2021 History of Past illness Narrative* Problem Noted [...] Overview: Added automatically from request for surgery [id number] Biceps tendinopathy 05/24/2017 10/11/2017 Overview: Added automatically from request for surgery [id number] Rotator cuff tear 05/24/2017 10/11/2017 Overview: Added automatically from request for surgery [id number] Rotator cuff arthropathy, left 03/09/2017 0 10/11/2017 Overview: 2017: Tear left biceps tendon documented as of this encounter (statuses as of 04/08/2022) [facility]04-13[facility]2021 History of Past illness Narrative* Problem Noted [...] Overview: Added automatically from request for surgery [id number] Biceps tendinopathy 05/24/2017 10/11/2017 Overview: Added automatically from request for surgery [id number] Rotator cuff tear 05/24/2017 10/11/2017 Overview: Added automatically from request for surgery [id number] Rotator cuff arthropathy, left 03/09/2017 0 10/11/2017 Overview: 2017: Tear left biceps tendon documented as of this encounter (statuses as of 04/08/2022) [facility]04[facility]13[facility]2021 History of Past illness Narrative* Problem Noted [...] Overview: Added automatically from request for surgery [id number] Biceps tendinopathy 05/24/2017 10/11/2017 Overview: Added automatically from request for surgery [id number] Rotator cuff tear 05/24/2017 10/11/2017 Overview: Added automatically from request for surgery [id number] Rotator cuff arthropathy, left 03/09/2017 0 10/11/2017 Overview: 2017: Tear left biceps tendon documented as of this encounter (statuses as of 04/10/2022) [facility]04[facility]13[facility]2021 History of Past illness Narrative* Problem Noted [...] Overview: Added automatically from request for surgery [id number] Biceps tendinopathy 05/24/2017 10/11/2017 Overview: Added automatically from request for surgery [id number] Rotator cuff tear 05/24/2017 10/11/2017 Overview: Added automatically from request for surgery [id number] Rotator cuff arthropathy, left 03/09/2017 0 10/11/2017 Overview: 2017: Tear left biceps tendon documented as of this encounter (statuses as of 04/16/2022) [facility]04[facility]13[facility]2021 History of Past illness Narrative* Problem Noted [...] Overview: Added automatically from request for surgery [id number] Biceps tendinopathy 05/24/2017 10/11/2017 Overview: Added automatically from request for surgery [id number] Rotator cuff tear 05/24/2017 10/11/2017 Overview: Added automatically from request for surgery [id number] Rotator cuff arthropathy, left 03/09/2017 0 10/11/2017 Overview: 2017: Tear left biceps tendon Sciatica 09/29/2011 04/20/2022 documented as of this encounter (statuses as of 04/20/2022) [facility]04-13-2021 History of Past illness Narrative* Problem Noted [...] Overview: Added automatically from request for surgery [id number] Biceps tendinopathy 05/24/2017 10/11/2017 Overview: Added automatically from request for surgery [id number] Rotator cuff tear 05/24/2017 10/11/2017 Overview: Added automatically from request for surgery [id number] Rotator cuff arthropathy, left 03/09/2017 0 10/11/2017 Overview: 2017: Tear left biceps tendon Sciatica 09/29/2011 04/20/2022 documented as of this encounter (statuses as of 04/20/2022) [facility]04-13-2021 History of Past illness Narrative* Problem Noted [...] Overview: Added automatically from request for surgery [id number] Biceps tendinopathy 05/24/2017 10/11/2017 Overview: Added automatically from request for surgery [id number] Rotator cuff tear 05/24/2017 10/11/2017 Overview: Added automatically from request for surgery [id number] Rotator cuff arthropathy, left 03/09/2017 0 10/11/2017 Overview: 2017: Tear left biceps tendon Sciatica 09/29/2011 04/20/2022 documented as of this encounter (statuses as of 05/20/2022) [facility]04-13-2021 History of Past illness Narrative* Problem Noted [...] Overview: Added automatically from request for surgery [id number] Biceps tendinopathy 05/24/2017 10/11/2017 Overview: Added automatically from request for surgery [id number] Rotator cuff tear 05/24/2017 10/11/2017 Overview: Added automatically from request for surgery [id number] Rotator cuff arthropathy, left 03/09/2017 0 10/11/2017 Overview: 2017: Tear left biceps tendon Sciatica 09/29/2011 04/20/2022 documented as of this encounter (statuses as of 05/20/2022) [facility]04[facility]13[facility]2021 History of Past illness Narrative* Problem Noted [...] Overview: Added automatically from request for surgery [id number] Biceps tendinopathy 05/24/2017 10/11/2017 Overview: Added automatically from request for surgery [id number] Rotator cuff tear 05/24/2017 10/11/2017 Overview: Added automatically from request for surgery [id number] Rotator cuff arthropathy, left 03/09/2017 0 10/11/2017 Overview: 2017: Tear left biceps tendon Sciatica 09/29/2011 04/20/2022 documented as of this encounter (statuses as of 05/20/2022) [facility]04[facility]13[facility]2021 History of Past illness Narrative* Problem Noted [...] Overview: Added automatically from request for surgery [id number] Biceps tendinopathy 05/24/2017 10/11/2017 Overview: Added automatically from request for surgery [id number] Rotator cuff tear 05/24/2017 10/11/2017 Overview: Added automatically from request for surgery [id number] Rotator cuff arthropathy, left 03/09/2017 0 10/11/2017 Overview: 2017: Tear left biceps tendon Sciatica 09/29/2011 04/20/2022 documented as of this encounter (statuses as of 05/22/2022) [facility]04[facility]2021 History of Past illness Narrative* Problem Noted [...] Overview: Added automatically from request for surgery [id number] Biceps tendinopathy 05/24/2017 10/11/2017 Overview: Added automatically from request for surgery [id number] Rotator cuff tear 05/24/2017 10/11/2017 Overview: Added automatically from request for surgery [id number] Rotator cuff arthropathy, left 03/09/2017 0 10/11/2017 Overview: 2017: Tear left biceps tendon Sciatica 09/29/2011 04/20/2022 documented as of this encounter (statuses as of 05/22/2022) [facility]04[facility]13[facility]2021 History of Past illness Narrative* Problem Noted [...] Overview: Added automatically from request for surgery [id number] Biceps tendinopathy 05/24/2017 10/11/2017 Overview: Added automatically from request for surgery [id number] Rotator cuff tear 05/24/2017 10/11/2017 Overview: Added automatically from request for surgery [id number] Rotator cuff arthropathy, left 03/09/2017 0 10/11/2017 Overview: 2017: Tear left biceps tendon Sciatica 09/29/2011 04/20/2022 documented as of this encounter (statuses as of 05/25/2022) [facility]04-13[facility]2021 History of Past illness Narrative* Problem Noted [...] Overview: Added automatically from request for surgery [id number] Biceps tendinopathy 05/24/2017 10/11/2017 Overview: Added automatically from request for surgery [id number] Rotator cuff tear 05/24/2017 10/11/2017 Overview: Added automatically from request for surgery [id number] Rotator cuff arthropathy, left 03/09/2017 0 10/11/2017 Overview: 2017: Tear left biceps tendon Sciatica 09/29/2011 04/20/2022 documented as of this encounter (statuses as of 06/08/2022) [facility]04-13[facility]2021 History of Past illness Narrative* Problem Noted [...] Overview: Added automatically from request for surgery [id number] Biceps tendinopathy 05/24/2017 10/11/2017 Overview: Added automatically from request for surgery [id number] Rotator cuff tear 05/24/2017 10/11/2017 Overview: Added automatically from request for surgery [id number] Rotator cuff arthropathy, left 03/09/2017 0 10/11/2017 Overview: 2017: Tear left biceps tendon Sciatica 09/29/2011 04/20/2022 documented as of this encounter (statuses as of 06/09/2022) [facility]04-13[facility]2021 History of Past illness Narrative* Problem Noted [...] Overview: Added automatically from request for surgery [id number] Biceps tendinopathy 05/24/2017 10/11/2017 Overview: Added automatically from request for surgery [id number] Rotator cuff tear 05/24/2017 10/11/2017 Overview: Added automatically from request for surgery [id number] Rotator cuff arthropathy, left 03/09/2017 0 10/11/2017 Overview: 2017: Tear left biceps tendon Sciatica 09/29/2011 04/20/2022 documented as of this encounter (statuses as of 06/10/2022) [facility]04[facility]13[facility]2021 History of Past illness Narrative* Problem Noted [...] Overview: Added automatically from request for surgery [id number] Biceps tendinopathy 05/24/2017 10/11/2017 Overview: Added automatically from request for surgery [id number] Rotator cuff tear 05/24/2017 10/11/2017 Overview: Added automatically from request for surgery [id number] Rotator cuff arthropathy, left 03/09/2017 0 10/11/2017 Overview: 2017: Tear left biceps tendon Sciatica 09/29/2011 04/20/2022 documented as of this encounter (statuses as of 06/25/2022) [facility]04[facility]2021 History of Past illness Narrative* Problem Noted [...] Overview: Added automatically from request for surgery [id number] Biceps tendinopathy 05/24/2017 10/11/2017 Overview: Added automatically from request for surgery [id number] Rotator cuff tear 05/24/2017 10/11/2017 Overview: Added automatically from request for surgery [id number] Rotator cuff arthropathy, left 03/09/2017 0 10/11/2017 Overview: 2017: Tear left biceps tendon Sciatica 09/29/2011 04/20/2022 documented as of this encounter (statuses as of 07/14/2022) [facility]04[facility]13[facility]2021 History of Past illness Narrative* Problem Noted [...] Overview: Added automatically from request for surgery [id number] Biceps tendinopathy 05/24/2017 10/11/2017 Overview: Added automatically from request for surgery [id number] Rotator cuff tear 05/24/2017 10/11/2017 Overview: Added automatically from request for surgery [id number] Rotator cuff arthropathy, left 03/09/2017 0 10/11/2017 Overview: 2017: Tear left biceps tendon Sciatica 09/29/2011 04/20/2022 documented as of this encounter (statuses as of 09/18/2022) [facility]04[facility]2021 History of Past illness Narrative* Problem Noted [...] Overview: Added automatically from request for surgery [id number] Biceps tendinopathy 05/24/2017 10/11/2017 Overview: Added automatically from request for surgery [id number] Rotator cuff tear 05/24/2017 10/11/2017 Overview: Added automatically from request for surgery [id number] Rotator cuff arthropathy, left 03/09/2017 0 10/11/2017 Overview: 2017: Tear left biceps tendon Sciatica 09/29/2011 04/20/2022 documented as of this encounter (statuses as of 09/24/2022) [facility]04[facility]2021 History of Past illness Narrative* Problem Noted [...] Overview: Added automatically from request for surgery [id number] Biceps tendinopathy 05/24/2017 10/11/2017 Overview: Added automatically from request for surgery [id number] Rotator cuff tear 05/24/2017 10/11/2017 Overview: Added automatically from request for surgery [id number] Rotator cuff arthropathy, left 03/09/2017 0 10/11/2017 Overview: 2017: Tear left biceps tendon Sciatica 09/29/2011 04/20/2022 documented as of this encounter (statuses as of 09/24/2022) [facility]04[facility]2021 History of Past illness Narrative* Problem Noted [...] Overview: Added automatically from request for surgery [id number] Biceps tendinopathy 05/24/2017 10/12/19 18 Overview: Added automatically from request for surgery [id number] Rotator cuff tear 05/24/2017 10/11/2017 Overview: Added automatically from request for surgery [id number] Rotator cuff arthropathy, left 03/09/2017 10/11/2017 Overview: 2017: Tear left biceps tendon Sciatica 09/29/2011 04/20/2022 documented as of this encounter (statuses as of 10/01/2022) [facility]04[facility]13[facility]2021 History of Past illness Narrative* Problem Noted [...] Overview: Added automatically from request for surgery [id number] Biceps tendinopathy 05/24/2017 10/12/19 Overview: Added automatically from request for surgery [id number] Rotator cuff tear 05/24/2017 10/11/2017 Overview: Added automatically from request for surgery [id number] Rotator cuff arthropathy, left 03/09/2017 10/11/2017 Overview: 2017: Tear left biceps tendon Sciatica 09/29/2011 04/20/2022 documented as of this encounter (statuses as of 10/01/2022) [facility]04[facility]2021 History of Past illness Narrative* Problem Noted [...] Overview: Added automatically from request for surgery [id number] Biceps tendinopathy 05/24/2017 10/12/19 18 Overview: Added automatically from request for surgery [id number] Rotator cuff tear 05/24/2017 10/11/2017 Overview: Added automatically from request for surgery [id number] Rotator cuff arthropathy, left 03/09/2017 10/11/2017 Overview: 2017: Tear left biceps tendon Sciatica 09/29/2011 04/20/2022 documented as of this encounter (statuses as of 11/20/2022) [facility]04[facility]20[facility] History of Past illness Narrative* Problem Noted [...] Overview: Added automatically from request for surgery [id number] Biceps tendinopathy 05/24/2017 10/12/19 18 Overview: Added automatically from request for surgery [id number] Rotator cuff tear 05/24/2017 10/11/2017 Overview: Added automatically from request for surgery [id number] Rotator cuff arthropathy, left 03/09/2017 10/11/2017 Overview: 2017: Tear left biceps tendon Sciatica 09/29/2011 04/20/2022 documented as of this encounter (statuses as of 12/08/2022) [facility]20[facility] History of Past illness Narrative* Problem Noted [...] Overview: Added automatically from request for surgery [id number] Biceps tendinopathy 05/24/2017 10/12/19 18 Overview: Added automatically from request for surgery [id number] Rotator cuff tear 05/24/2017 10/11/2017 Overview: Added automatically from request for surgery [id number] Rotator cuff arthropathy, left 03/09/2017 10/11/2017 Overview: 2017: Tear left biceps tendon Sciatica 09/29/2011 04/20/2022 documented as of this encounter (statuses as of 12/16/2022) [facility] History of Past illness Narrative* Problem Noted [...] Overview: Added automatically from request for surgery [id number] Biceps tendinopathy 05/24/2017 10/12/19 18 Overview: Added automatically from request for surgery [id number] Rotator cuff tear 05/24/2017 10/11/2017 Overview: Added automatically from request for surgery [id number] Rotator cuff arthropathy, left 03/09/2017 10/11/2017 Overview: 2017: Tear left biceps tendon Sciatica 09/29/2011 04/20/2022 documented as of this encounter (statuses as of 01/19/2023) [facility] History of Past illness Narrative* Problem Noted [...] Overview: Added automatically from request for surgery [id number] Biceps tendinopathy 05/24/2017 10/12/19 18 Overview: Added automatically from request for surgery [id number] Rotator cuff tear 05/24/2017 10/11/2017 Overview: Added automatically from request for surgery [id number] Rotator cuff arthropathy, left 03/09/2017 10/11/2017 Overview: 2017: Tear left biceps tendon Sciatica 09/29/2011 04/20/2022 documented as of this encounter (statuses as of 01/23/2023) [facility] History of Past illness Narrative* Problem Noted [...] Overview: Added automatically from request for surgery [id number] Biceps tendinopathy 05/24/2017 10/12/19 18 Overview: Added automatically from request for surgery [id number] Rotator cuff tear 05/24/2017 10/11/2017 Overview: Added automatically from request for surgery [id number] Rotator cuff arthropathy, left 03/09/2017 10/11/2017 Overview: 2017: Tear left biceps tendon Sciatica 09/29/2011 04/20/2022 documented as of this encounter (statuses as of 02/10/2023) [facility] History of Past illness Narrative* Problem Noted [...] Overview: Added automatically from request for surgery [id number] Biceps tendinopathy 05/24/2017 10/12/19 18 Overview: Added automatically from request for surgery [id number] Rotator cuff tear 05/24/2017 10/11/2017 Overview: Added automatically from request for surgery [id number] Rotator cuff arthropathy, left 03/09/2017 10/11/2017 Overview: 2017: Tear left biceps tendon Sciatica 09/29/2011 04/20/2022 documented as of this encounter (statuses as of 02/17/2023) [facility] History of Past illness Narrative* Problem Noted [...] Overview: Added automatically from request for surgery [id number] Biceps tendinopathy 05/24/2017 10/12/19 18 Overview: Added automatically from request for surgery [id number] Rotator cuff tear 05/24/2017 10/11/2017 Overview: Added automatically from request for surgery [id number] Rotator cuff arthropathy, left 03/09/2017 10/11/2017 Overview: 2017: Tear left biceps tendon Sciatica 09/29/2011 04/20/2022 documented as of this encounter (statuses as of 02/18/2023) [facility] History of Past illness Narrative* Problem Noted [...] Overview: Added automatically from request for surgery [id number] Biceps tendinopathy 05/24/2017 10/12/19 18 Overview: Added automatically from request for surgery [id number] Rotator cuff tear 05/24/2017 10/11/2017 Overview: Added automatically from request for surgery [id number] Rotator cuff arthropathy, left 03/09/2017 10/11/2017 Overview: 2017: Tear left biceps tendon Sciatica 09/29/2011 04/20/2022 documented as of this encounter (statuses as of 02/18/2023) [facility] History of Past illness Narrative* Problem Noted [...] Overview: Added automatically from request for surgery [id number] Biceps tendinopathy 05/24/2017 10/12/19 18 Overview: Added automatically from request for surgery [id number] Rotator cuff tear 05/24/2017 10/11/2017 Overview: Added automatically from request for surgery [id number] Rotator cuff arthropathy, left 03/09/2017 10/11/2017 Overview: 2017: Tear left biceps tendon Sciatica 09/29/2011 04/20/2022 documented as of this encounter (statuses as of 02/18/2023) [facility] History of Past illness Narrative* Problem Noted [...] Overview: Added automatically from request for surgery [id number] Biceps tendinopathy 05/24/2017 10/12/19 18 Overview: Added automatically from request for surgery [id number] Rotator cuff tear 05/24/2017 10/11/2017 Overview: Added automatically from request for surgery [id number] Rotator cuff arthropathy, left 03/09/2017 10/11/2017 Overview: 2017: Tear left biceps tendon Sciatica 09/29/2011 04/20/2022 documented as of this encounter (statuses as of 03/05/2023) [facility] ([facility])- Primary Autoimmune hepatitis Hepatic sclerosis Unspecified chronic liver disease without mention of alcohol [facility] Liver lesion- Primary Other specified disorders of liver [facility] Diagnosis Autoimmune hepatitis (HCC) Autoimmune hepatitis [facility] Diagnosis Liver lesion Other specified disorders of liver [facility] Diagnosis Acute gout involving toe of right foot, unspecified cause [facility] Diagnosis Prophylactic antibiotic Encounter for long-term (current) use of antibiotics [facility] Diagnosis Autoimmune hepatitis (HCC)- Primary Autoimmune hepatitis Liver disease, unspecified [facility] Diagnosis Autoimmune hepatitis treated with steroids [...] Other abnormal glucose [facility] Diagnosis Type 2 diabetes mellitus without complication, 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) [facility] [facility] Diagnosis Hypertrophic obstructive cardiomyopathy (HOCM) (HCC)- Primary Hypertrophic obstructive cardiomyopathy Essential hypertension Unspecified essential hypertension Hyperlipidemia LDL goal <100 Other and unspecified hyperlipidemia S/P ICD (internal cardiac defibrillator) procedure Automatic implantable cardiac defibrillator in situ Venous insufficiency Unspecified venous (peripheral) insufficiency [facility] Diagnosis Acute gout involving toe of right foot, unspecified cause [facility] Diagnosis Controlled type 2 diabetes mellitus without complication, without long-term current use of insulin (HCC)- Primary [facility] Diagnosis Hyperlipidemia LDL goal <100- Primary [...] stated as uncontrolled [facility] Diagnosis Portal vein thrombosis Hypertrophic obstructive cardiomyopathy (HOCM) (HCC) Hypertrophic obstructive cardiomyopathy Type 2 diabetes mellitus treated with insulin (HCC) Type II or unspecified type diabetes mellitus without mention of complication, not stated as uncontrolled [facility] Diagnosis Prophylactic antibiotic Encounter for long-term (current) use of antibiotics [facility] Diagnosis Portal vein thrombosis Hypertrophic obstructive cardiomyopathy (HOCM) (HCC) Hypertrophic obstructive cardiomyopathy Type 2 diabetes mellitus treated with insulin (HCC) Type II or unspecified type diabetes mellitus without mention of complication, not stated as uncontrolled [facility] Diagnosis Prophylactic antibiotic Encounter for long-term (current) use of antibiotics [facility]* Diagnosis Autoimmune hepatitis (HCC) Autoimmune hepatitis [facility] Diagnosis Hypertrophic obstructive cardiomyopathy (HOCM) (HCC)- Primary Hypertrophic obstructive cardiomyopathy Hyperlipidemia LDL goal <100 Other and unspecified hyperlipidemia Portal vein thrombosis Hepatic cirrhosis, unspecified hepatic cirrhosis type, unspecified whether ascites present (HCC) Controlled type 2 diabetes mellitus without complication, unspecified whether longterm insulin use (HCC) Thrombocytopenia (HCC) Thrombocytopenia, unspecified Throat clearing Other symptoms involving head and neck Oral bleeding Other and unspecified diseases of the oral soft tissues [facility] Diagnosis HOCM (hypertrophic obstructive cardiomyopathy) (HCC)- Primary Hypertrophic obstructive cardiomyopathy [facility] Diagnosis HOCM (hypertrophic obstructive cardiomyopathy) (HCC)- Primary Hypertrophic obstructive cardiomyopathy [facility]* Diagnosis Acute gout involving toe of right foot, unspecified cause [facility] Diagnosis Vocal cord nodule- Primary Other diseases of vocal cords Throat clearing Other symptoms involving head and neck Oral bleeding Other and unspecified diseases of the oral soft tissues Gastroesophageal reflux disease, unspecified whether esophagitis present [facility] Diagnosis Chronic insomnia Insomnia, unspecified [facility] Diagnosis Hypertrophic obstructive cardiomyopathy (HOCM) (HCC)- Primary Hypertrophic obstructive cardiomyopathy S/P ICD (internal cardiac defibrillator) procedure Automatic implantable cardiac defibrillator in situ Hyperlipidemia LDL goal <100 Other and unspecified hyperlipidemia Venous insufficiency Unspecified venous (peripheral) insufficiency Primary hypertension Unspecified essential hypertension [facility] Diagnosis Autoimmune hepatitis (HCC) Autoimmune hepatitis documented in this encounter [facility] note* Diagnosis Autoimmune hepatitis (HCC)- Primary Autoimmune hepatitis Controlled type 2 diabetes mellitus without complication, unspecified whether longterm insulin use (HCC) Elevated LFTs Other abnormal blood chemistry documented in this encounter [facility] note* Diagnosis Poorly controlled type 2 diabetes mellitus (HCC)- Primary Type II or unspecified type diabetes mellitus without mention of complication, not stated as uncontrolled [facility] Diagnosis Acute gout involving toe of right foot, unspecified cause [facility] Diagnosis Combined forms of age-related cataract [...] venous (peripheral) insufficiency [facility] Diagnosis Autoimmune hepatitis (HCC) [K75.4]- Primary Autoimmune hepatitis [facility] Diagnosis Autoimmune hepatitis (HCC) Autoimmune hepatitis Examination of participant in clinical trial- Primary documented in this encounter [facility] note* Diagnosis Liver lesion- Primary Other specified disorders of liver Examination of participant in clinical trial- Primary [facility] Diagnosis Examination of participant in clinical trial- Primary documented in this encounter [facility] for referral (narrative)* Diagnostic Procedure Only (Routine) - Authorized Specialty Diagnoses / Procedures Referred By Theresa t Referred To Contact US IMAGING Diagnoses Autoimmune hepatitis (HCC) Procedures US DOPPLER COMPLETE DUP-SCAN ARTL LOVELY ABDL/PEL/SCROT&/RPR ORGN COM Hemalatha Bear MD [address] [place] [address] Us Imaging Referral ID Status Reason Start Date Expiration Date Visits Requested Visits Authorized [id number] Authorized Auto-Generat ed Referral 06/24/2021 07/24/2022 1 1 * Diagnostic Procedure Only (Routine) - Authorized Specialty Diagnoses / Procedures Referred By Contac t Referred To Contact US IMAGING Diagnoses Autoimmune hepatitis (HCC) Procedures US ABD LIVER VASCULAR US ABDOMINAL REAL TIME W/IMAGE LIMITED DUP-SCAN ARTL LOVELY ABDL/PEL/SCROT&/RPR ORGN COM Hemalatha Bear MD [address] [place] [address] Us Imaging Referral ID Status Reason Start Date Expiration Date Visits Requested Visits Authorized [id number] Authorized Auto-Generat ed Referral 06/24/2021 07/24/2022 1 1 [facility] for referral (narrative)* Diagnostic Procedure Only (Routine) - Closed Specialty Diagnoses / Procedures Referred By Contac t Referred To Contact US IMAGING Diagnoses Autoimmune hepatitis (HCC) Procedures US DOPPLER COMPLETE DUP-SCAN ARTL LOVELY ABDL/PEL/SCROT&/RPR ORGN COM Hemalatha Bear MD [address] [place] [address] Us Imaging Referral ID Status Reason Start Date Expiration Date V isits Requested Visits Authorized [id number] Closed Auto-Generate d Referral 06/24/2021 07/24/2022 1 1 * Diagnostic Procedure Only (Routine) - Closed Specialty Diagnoses / Procedures Referred By Contac t Referred To Contact US IMAGING Diagnoses Autoimmune hepatitis (HCC) Procedures US ABD LIVER VASCULAR US ABDOMINAL REAL TIME W/IMAGE LIMITED DUP-SCAN ARTL LOVELY ABDL/PEL/SCROT&/RPR ORGN COM Hemalatha Bear MD [address] [place] [address] Us Imaging Referral ID Status Reason Start Date Expiration Date V isits Requested Visits Authorized [id number] Closed Auto-Generate d Referral 06/24/2021 07/24/2022 1 1 [facility] for referral (narrative)* Diagnostic Procedure Only (Routine) - Pending Review Specialty Diagnoses / Procedures Referred By Contac t Referred To Contact US IMAGING Diagnoses Autoimmune hepatitis (HCC) Procedures US DOPPLER COMPLETE DUP-SCAN ARTL LOVELY ABDL/PEL/SCROT&/RPR ORGN [facility] Hemalatha Bear MD [address] [place] [address] Us Imaging Referral ID Status Reason Start Date Expiration Date Visits Requested Visits Authorized [id number] Pending Review Auto-Generat ed Referral 10/13/2021 11/12/2022 1 1 * Diagnostic Procedure Only (Routine) - Pending Review Specialty Diagnoses / Procedures Referred By Theresa t Referred To Contact US IMAGING Diagnoses Autoimmune hepatitis (HCC) Procedures US ABD LIVER VASCULAR US ABDOMINAL REAL TIME W/IMAGE LIMITED DUP-SCAN ARTL LOVELY ABDL/PEL/SCROT&/RPR ORGN [facility] Hemalatha Bear MD [address] [place] [address] Us Imaging Referral ID Status Reason Start Date Expiration Date Visits Requested Visits Authorized [id number] Pending Review Auto-Generat ed Referral 10/13/2021 11/12/2022 1 1 [facility] for referral (narrative)* Outpatient Procedure (Routine) - Pending Review Specialty Diagnoses / Procedures Referred By Theresa t [facility] Diagnoses Hypertrophic obstructive cardiomyopathy (HOCM) (HCC) S/P ICD (internal cardiac defibrillator) procedure Procedures ECHO ECHO TTHRC R-T 2D W/WOM-MODE COMPL SPEC&COLR D Bernadette Miles MD [address] [place] [address] [facility] [address] [place] [address] Referral ID Status Reason Start Date Expiration Date Visits Requested Visits Authorized [id number] Pending Review Auto-Generat ed Referral 10/20/2021 10/20/2022 1 1 [facility] for referral (narrative)* Diagnostic Procedure Only (Routine) - Closed Specialty Diagnoses / Procedures Referred By Contac t Referred To Contact US IMAGING Diagnoses Autoimmune hepatitis (HCC) Procedures US DOPPLER COMPLETE DUP-SCAN ARTL LOVELY ABDL/PEL/SCROT&/RPR ORGN COM Hemalatha Bear MD [address] [place] [phone] Us Imaging Referral ID Status Reason Start Date Expiration Date V isits Requested Visits Authorized [id number] Closed Auto-Generate d Referral 10/13/2021 11/12/2022 1 1 * Diagnostic Procedure Only (Routine) - Closed Specialty Diagnoses / Procedures Referred By Contac t Referred To Contact US IMAGING Diagnoses Autoimmune hepatitis (HCC) Procedures US ABD LIVER VASCULAR US ABDOMINAL REAL TIME W/IMAGE LIMITED DUP-SCAN ARTL LOVELY ABDL/PEL/SCROT&/RPR ORGN COM Hemalatha Bear MD [address] [place] [address] Us Imaging Referral ID Status Reason Start Date Expiration Date V isits Requested Visits Authorized [id number] Closed Auto-Generate d Referral 10/13/2021 11/12/2022 1 1 [facility] for referral (narrative)* Outpatient Procedure (Routine) - Authorized Specialty Diagnoses / Procedures Referred By Contac t Referred [facility] Diagnoses HOCM (hypertrophic obstructive cardiomyopathy) (HCC) Procedures ECG COMPLETE ECG ROUTINE ECG W/LEAST 12 LDS W/I&R Caitlin Shahid MD [address] [place] [address] [place] [phone] Referral ID Status Reason Start Date Expiration Date Visits Requested Visits Authorized [id number] Authorized Auto-Generat ed Referral 05/20/2022 05/20/2023 1 1 [facility] for referral (narrative)* Outpatient Procedure (Routine) - Authorized Specialty Diagnoses / Procedures Referred By Contac t Referred To Contact [facility] [place] Diagnoses Hypertrophic obstructive cardiomyopathy (HOCM) (HCC) Procedures ECHO ECHO TTHRC R-T 2D W/WOM-MODE COMPL SPEC&COLR D Bernadette Miles MD [address] [place] [address] [place] [phone] Referral ID Status Reason Start Date Expiration Date Visits Requested Visits Authorized [id number] Authorized Auto-Generat ed Referral 07/13/2022 07/13/2023 1 1 * Outpatient Procedure (Routine) - Authorized Specialty Diagnoses / Procedures Referred By Contac t Referred To Contact [facility] Diagnoses Hypertrophic obstructive cardiomyopathy (HOCM) (HCC) Procedures ECG COMPLETE ECG ROUTINE ECG W/LEAST 12 LDS W/I&R Bernadette Miles MD [address] [place] [address] [address] Referral ID Status Reason Start Date Expiration Date Visits Requested Visits Authorized [id number] Authorized Auto-Generat ed Referral 07/07/2022 07/07/2023 1 1 [facility] for referral (narrative)* Diagnostic Procedure Only (Routine) - Closed Specialty Diagnoses / Procedures Referred By Contac t Referred To Contact US IMAGING Diagnoses Autoimmune hepatitis (HCC) Procedures US DOPPLER COMPLETE DUP-SCAN ARTL LOVELY ABDL/PEL/SCROT&/RPR ORGN COM Hemalatha Bear MD [address] [place] [address] Us Imaging Referral ID Status Reason Start Date Expiration Date V isits Requested Visits Authorized [id number] Closed Auto-Generate d Referral 04/13/2022 05/13/2023 1 1 * Diagnostic Procedure Only (Routine) - Closed Specialty Diagnoses / Procedures Referred By Contac t Referred To Contact US IMAGING Diagnoses Autoimmune hepatitis (HCC) Procedures US ABD LIVER VASCULAR US ABDOMINAL REAL TIME W/IMAGE LIMITED DUP-SCAN ARTL LOVELY ABDL/PEL/SCROT&/RPR ORGN [facility] Hemalatha Bear MD [address] [place] [address] Us Imaging Referral ID Status Reason Start Date Expiration Date V isits Requested Visits Authorized [id number] Closed Auto-Generate d Referral 04/13/2022 05/13/2023 1 1 [facility] for referral (narrative)* Diagnostic Procedure Only (Routine) - Pending Review Specialty Diagnoses / Procedures Referred By Contac t Referred To Contact US IMAGING Diagnoses Autoimmune hepatitis (HCC) Procedures US DOPPLER COMPLETE DUP-SCAN ARTL LOVELY ABDL/PEL/SCROT&/RPR ORGN COM Hemalatha Bear MD [address] [place] [address] Us Imaging Referral ID Status Reason Start Date Expiration Date Visits Requested Visits Authorized [id number] Pending Review Auto-Generat ed Referral 09/23/2022 10/23/2023 1 1 * Diagnostic Procedure Only (Routine) - Pending Review Specialty Diagnoses / Procedures Referred By Contac t Referred To Contact US IMAGING Diagnoses Autoimmune hepatitis (HCC) Procedures US ABD LIVER VASCULAR US ABDOMINAL REAL TIME W/IMAGE LIMITED DUP-SCAN ARTL LOVELY ABDL/PEL/SCROT&/RPR ORGN COM Hemalatha Bear MD [address] [place] [address] Us Imaging Referral ID Status Reason Start Date Expiration Date Visits Requested Visits Authorized [id number] Pending Review Auto-Generat ed Referral 09/23/2022 10/23/2023 1 1 * Consult, Test, Treat (Routine) - Authorized Specialty Diagnoses / Procedures [facility] Referred To Contact Endocrinology Diagnoses Controlled type 2 diabetes mellitus without complication, 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) Procedures CONSULT TO ENDOCRINOLOGY OFFICE/OUTPATIENT NEW HIGH MDM 60-74 MINUTES Hemalatha Bear MD [address] [place] [address] Referral ID Status Reason Start Date Expiration Date Visits Requested Visits Authorized [id number] Authorized PCP Requested Referral 09/23/2022 09/23/2023 1 1 [facility] for referral (narrative)* Diagnostic Procedure Only (Routine) - Closed Specialty Diagnoses / Procedures Referred By Theresa Referred To Contact US IMAGING Diagnoses Autoimmune hepatitis (HCC) Procedures US DOPPLER COMPLETE DUP-SCAN ARTL LOVELY ABDL/PEL/SCROT&/RPR ORGN [facility] Hemalatha Bear MD [address] [place] [address] Us Imaging [place] [id number] Referral ID Status Reason Start Date Expiration Date V isits Requested Visits Authorized [id number] Closed Auto-Generate d Referral 09/23/2022 10/23/2023 1 1 * Diagnostic Procedure Only (Routine) - Closed Specialty Diagnoses / Procedures [facility] Diagnoses Autoimmune hepatitis (HCC) Procedures US ABD LIVER VASCULAR US ABDOMINAL REAL TIME W/IMAGE LIMITED DUP-SCAN ARTL LOVELY ABDL/PEL/SCROT&/RPR ORGN COM Hemalatha Bear MD [address] [place] [phone] Us Imaging [place] [address] Referral ID Status Reason Start Date Expiration Date V isits Requested Visits Authorized [id number] Closed Auto-Generate d Referral 09/23/2022 10/23/2023 1 1 [facility] for visit Narrative* Diagnostic Procedure Only (Routine) - Closed Specialty Diagnoses / Procedures Referred By Contac t Referred To Contact US IMAGING Diagnoses Autoimmune hepatitis (HCC) Procedures US ABD LIVER VASCULAR US ABDOMINAL REAL TIME W/IMAGE LIMITED DUP-SCAN ARTL LOVELY ABDL/PEL/SCROT&/RPR ORGN [facility] Hemalatha Bear MD [address] [place] [address] Us Imaging Referral ID Status Reason Start Date Expiration Date V isits Requested Visits Authorized [id number] Closed Auto-Generate d Referral 06/24/2021 07/24/2022 1 1 [facility] for visit Narrative* Diagnostic Procedure Only (Routine) - Closed Specialty Diagnoses / Procedures Referred By Contac t Referred To Contact US IMAGING Diagnoses Autoimmune hepatitis (HCC) Procedures US ABD LIVER VASCULAR US ABDOMINAL REAL TIME W/IMAGE LIMITED DUP-SCAN ARTL LOVELY ABDL/PEL/SCROT&/RPR ORGN [facility] Hemalatha Bear MD [address] [place] [address] Us Imaging Referral ID Status Reason Start Date Expiration Date V isits Requested Visits Authorized [id number] Closed Auto-Generate d Referral 10/13/2021 11/12/2022 1 1 [facility] for visit Narrative* Diagnostic Procedure Only (Routine) - Closed Specialty Diagnoses / Procedures Referred By Contac t Referred To Contact US IMAGING Diagnoses Autoimmune hepatitis (HCC) Procedures US ABD LIVER VASCULAR US ABDOMINAL REAL TIME W/IMAGE LIMITED DUP-SCAN ARTL LOVELY ABDL/PEL/SCROT&/RPR ORGN COM Hemalatha Bear MD [address] [place] [address] Us Imaging Referral ID Status Reason Start Date Expiration Date V isits Requested Visits Authorized [id number] Closed Auto-Generate d Referral 04/13/2022 05/13/2023 1 1 [facility] Diagnostic Procedure Only (Routine) - Closed Specialty Diagnoses / Procedures Referred By Contac t Referred To Contact US IMAGING Diagnoses Autoimmune hepatitis (HCC) Procedures US ABD LIVER VASCULAR US ABDOMINAL REAL TIME W/IMAGE LIMITED DUP-SCAN ARTL LOVELY ABDL/PEL/SCROT&/RPR ORGN COM Hemalatha Bear MD [address] [place] [address] [place] [address] Referral ID Status Reason Start Date Expiration Date V isits Requested Visits Authorized [id number] Closed Auto-Generate d Referral 09/23/2022 10/23/2023 1 1 [facility] Summary Purpose Family History No Family History Records FoundNo Family History Records FoundNo Family History Records FoundNo Family History Records Found Advance Directives No Advanced Directives Records FoundDocuments on File Type Date 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 Advance Directive(s) 04/15/2020 9:30 AM Advance Directive(s) 04/14/2020 2:38 AM Advance Directive(s) 03/11/2020 1:41 PM Advance Directive(s) 08/20/2019 5:55 PM Advance Directive(s) 05/30/2018 8:29 AM Advance Directive(s) 05/31/2017 10:30 AM Advance Directive(s) 05/25/2017 10:55 AM Documents on File Type Date 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 Advance Directive(s) 04/15/2020 9:30 AM Advance Directive(s) 04/14/2020 2:38 AM Advance Directive(s) 03/11/2020 1:41 PM Advance Directive(s) 08/20/2019 5:55 PM Advance Directive(s) 05/30/2018 8:29 AM Advance Directive(s) 05/31/2017 10:30 AM Advance Directive(s) 05/25/2017 10:55 AM Documents on File Type Date Recorded 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 Advance Directive(s) 05/30/2018 8:29 AM Documents on File Type Date Recorded 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 Advance Directive(s) 05/30/2018 8:29 AM Reason for Referral Specialty Diagnoses / Procedures Referred By Contac t Referred To Contact MR IMAGING Diagnoses Liver lesion Procedures MRI LIVER WO/W IVCON MRI ABDOMEN W/O & W/CONTRAST MATERIAL Hemalatha Bear MD [address] [facility] [place] [address] Mr Imaging Referral ID Status Reason Start Date Expiration Date Visits Requested Visits Authorized [id number] Pending Review Auto-Generat ed Referral 07/21/2021 08/20/2022 1 1 Specialty Diagnoses / Procedures Referred By Contac t Referred To Contact CT IMAGING Diagnoses Liver lesion Procedures CT LIVER W IVCON CT ABDOMEN W/CONTRAST Hemalatha Bear MD [address] [place] [address] Ct Imaging Referral ID Status Reason Start Date Expiration Date V isits Requested Visits Authorized [id number] Closed Auto-Generate d Referral 07/23/2021 08/22/2022 1 1 Specialty Diagnoses / Procedures Referred By Contac t Referred To Contact Cardiology Diagnoses S/P ICD (internal cardiac defibrillator) procedure Hypertrophic obstructive cardiomyopathy (HOCM) (HCC) Procedures CONSULT TO CARDIOLOGY OFFICE/OUTPATIENT [facility] 60-74 MINUTES Flako Ornelas MD [address] [place] [id number] Referral ID Status Reason Start Date Expiration Date Visits Requested Visits Authorized [id number] Authorized PCP Requested Referral 10/16/2021 10/16/2022 1 1 Specialty Diagnoses / Procedures Referred By Contac t Referred To Contact Ent - Otolaryngology Diagnoses Throat clearing Oral bleeding Procedures CONSULT TO ENT OFFICE/OUTPATIENT [facility] 60-74 MINUTES Flako Ornelas MD [address] [place] [address] Referral ID Status Reason Start Date Expiration Date Visits Requested Visits Authorized [id number] Authorized PCP Requested Referral 04/20/2022 04/20/2023 1 1 Specialty Diagnoses / Procedures Referred By Contac t Referred To Contact Ent - Otolaryngology Diagnoses Throat clearing Vocal cord nodule Procedures CONSULT TO ENT OFFICE/OUTPATIENT [facility] MDM 60-74 MINUTES Giacomo Diez PA-C [address] [place] [address] Referral ID Status Reason Start Date Expiration Date Visits Requested Visits Authorized [id number] Authorized PCP Requested Referral 05/25/2022 05/25/2023 1 1 Specialty Diagnoses / Procedures Referred By Contac t Referred To Contact CT IMAGING Diagnoses Liver lesion Procedures CT LIVER W IVCON CT ABDOMEN W/CONTRAST Hemalatha Bear MD [address] [place] [address] [place] [address] Referral ID Status Reason Start Date Expiration Date Visits Requested Visits Authorized [id number] Authorized Auto-Generat ed Referral 03/18/2024 1 1 [...] DATE CREATED AUTHOR AUTHOR'S ORGANIZ ATION 09/10/2017 [facility] DATE CREATED AUTHOR AUTHOR'S ORGANIZ ATION 07/22/2021 [facility] DATE CREATED AUTHOR AUTHOR'S ORGANIZ ATION 03/25/2023 [facility] Source Comments (unrecognize d section and content) In the event this informatio n is protected by the Federal Confidentiality of Alcohol and Drug Abuse Patient Records regulations: The Federal rules restrict any use of the information to criminally investigate or prosecute any alcohol or drug abuse patient.[facility] the event this information is protected by the Federal Confidentiality of Alcohol and Drug Abuse Patient Records regulations: The Federal rules restrict any use of the information to criminally investigate or prosecute any alcohol or drug abuse patient.[facility] the event this information is protected by the Federal Confidentiality of Alcohol and Drug Abuse Patient Records regulations: The Federal rules restrict any use of the information to criminally investigate or prosecute any alcohol or drug abuse patient.[facility] the event this information is protected by the Federal Confidentiality of Alcohol and Drug Abuse Patient Records regulations: The Federal rules restrict any use of the information to criminally investigate or prosecute any alcohol or drug abuse patient.[facility] the event this information is protected by the Federal Confidentiality of Alcohol and Drug Abuse Patient Records regulations: The Federal rules restrict any use of the information to criminally investigate or prosecute any alcohol or drug abuse patient.[facility] ColumbusIn the event this information is protected by the Federal Confidentiality of Alcohol and Drug Abuse Patient Records regulations: The Federal rules restrict any use of the information to criminally investigate or prosecute any alcohol or drug abuse patient.[facility] ColumbusIn the event this information is protected by the Federal Confidentiality of Alcohol and Drug Abuse Patient Records regulations: The Federal rules restrict any use of the information to criminally investigate or prosecute any alcohol or drug abuse patient.[facility] ColumbusIn the event this information is protected by the Federal Confidentiality of Alcohol and Drug Abuse Patient Records regulations: The Federal rules restrict any use of the information to criminally investigate or prosecute any alcohol or drug abuse patient.[facility] ColumbusIn the event this information is protected by the Federal Confidentiality of Alcohol and Drug Abuse Patient Records regulations: The Federal rules restrict any use of the information to criminally investigate or prosecute any alcohol or drug abuse patient.[facility] ColumbusIn the event this information is protected by the Federal Confidentiality of Alcohol and Drug Abuse Patient Records regulations: The Federal rules restrict any use of the information to criminally investigate or prosecute any alcohol or drug abuse patient.[facility] ColumbusIn the event this information is protected by the Federal Confidentiality of Alcohol and Drug Abuse Patient Records regulations: The Federal rules restrict any use of the information to criminally investigate or prosecute any alcohol or drug abuse patient.[facility] ColumbusIn the event this information is protected by the Federal Confidentiality of Alcohol and Drug Abuse Patient Records regulations: The Federal rules restrict any use of the information to criminally investigate or prosecute any alcohol or drug abuse patient.[facility] ColumbusIn the event this information is protected by the Federal Confidentiality of Alcohol and Drug Abuse Patient Records regulations: The Federal rules restrict any use of the information to criminally investigate or prosecute any alcohol or drug abuse patient.[facility] ColumbusIn the event this information is protected by the Federal Confidentiality of Alcohol and Drug Abuse Patient Records regulations: The Federal rules restrict any use of the information to criminally investigate or prosecute any alcohol or drug abuse patient.[facility] ColumbusIn the event this information is protected by the Federal Confidentiality of Alcohol and Drug Abuse Patient Records regulations: The Federal rules restrict any use of the information to criminally investigate or prosecute any alcohol or drug abuse patient.[facility] ColumbusIn the event this information is protected by the Federal Confidentiality of Alcohol and Drug Abuse Patient Records regulations: The Federal rules restrict any use of the information to criminally investigate or prosecute any alcohol or drug abuse patient.[facility] ColumbusIn the event this information is protected by the Federal Confidentiality of Alcohol and Drug Abuse Patient Records regulations: The Federal rules restrict any use of the information to criminally investigate or prosecute any alcohol or drug abuse patient.[facility] ColumbusIn the event this information is protected by the Federal Confidentiality of Alcohol and Drug Abuse Patient Records regulations: The Federal rules restrict any use of the information to criminally investigate or prosecute any alcohol or drug abuse patient.[facility] ColumbusIn the event this information is protected by the Federal Confidentiality of Alcohol and Drug Abuse Patient Records regulations: The Federal rules restrict any use of the information to criminally investigate or prosecute any alcohol or drug abuse patient.[facility] ColumbusIn the event this information is protected by the Federal Confidentiality of Alcohol and Drug Abuse Patient Records regulations: The Federal rules restrict any use of the information to criminally investigate or prosecute any alcohol or drug abuse patient.[facility] ColumbusIn the event this information is protected by the Federal Confidentiality of Alcohol and Drug Abuse Patient Records regulations: The Federal rules restrict any use of the information to criminally investigate or prosecute any alcohol or drug abuse patient.[facility] ColumbusIn the event this information is protected by the Federal Confidentiality of Alcohol and Drug Abuse Patient Records regulations: The Federal rules restrict any use of the information to criminally investigate or prosecute any alcohol or drug abuse patient.[facility] ColumbusIn the event this information is protected by the Federal Confidentiality of Alcohol and Drug Abuse Patient Records regulations: The Federal rules restrict any use of the information to criminally investigate or prosecute any alcohol or drug abuse patient.[facility] ColumbusIn the event this information is protected by the Federal Confidentiality of Alcohol and Drug Abuse Patient Records regulations: The Federal rules restrict any use of the information to criminally investigate or prosecute any alcohol or drug abuse patient.[facility] ColumbusIn the event this information is protected by the Federal Confidentiality of Alcohol and Drug Abuse Patient Records regulations: The Federal rules restrict any use of the information to criminally investigate or prosecute any alcohol or drug abuse patient.[facility] ColumbusIn the event this information is protected by the Federal Confidentiality of Alcohol and Drug Abuse Patient Records regulations: The Federal rules restrict any use of the information to criminally investigate or prosecute any alcohol or drug abuse patient.[facility] ColumbusIn the event this information is protected by the Federal Confidentiality of Alcohol and Drug Abuse Patient Records regulations: The Federal rules restrict any use of the information to criminally investigate or prosecute any alcohol or drug abuse patient.[facility] ColumbusIn the event this information is protected by the Federal Confidentiality of Alcohol and Drug Abuse Patient Records regulations: The Federal rules restrict any use of the information to criminally investigate or prosecute any alcohol or drug abuse patient.[facility] ColumbusIn the event this information is protected by the Federal Confidentiality of Alcohol and Drug Abuse Patient Records regulations: The Federal rules restrict any use of the information to criminally investigate or prosecute any alcohol or drug abuse patient.[facility] ColumbusIn the event this information is protected by the Federal Confidentiality of Alcohol and Drug Abuse Patient Records regulations: The Federal rules restrict any use of the information to criminally investigate or prosecute any alcohol or drug abuse patient.[facility] ColumbusIn the event this information is protected by the Federal Confidentiality of Alcohol and Drug Abuse Patient Records regulations: The Federal rules restrict any use of the information to criminally investigate or prosecute any alcohol or drug abuse patient.[facility] ColumbusIn the event this information is protected by the Federal Confidentiality of Alcohol and Drug Abuse Patient Records regulations: The Federal rules restrict any use of the information to criminally investigate or prosecute any alcohol or drug abuse patient.[facility] ColumbusIn the event this information is protected by the Federal Confidentiality of Alcohol and Drug Abuse Patient Records regulations: The Federal rules restrict any use of the information to criminally investigate or prosecute any alcohol or drug abuse patient.[facility] ColumbusIn the event this information is protected by the Federal Confidentiality of Alcohol and Drug Abuse Patient Records regulations: The Federal rules restrict any use of the information to criminally investigate or prosecute any alcohol or drug abuse patient.[facility] ColumbusIn the event this information is protected by the Federal Confidentiality of Alcohol and Drug Abuse Patient Records regulations: The Federal rules restrict any use of the information to criminally investigate or prosecute any alcohol or drug abuse patient.[facility] ColumbusIn the event this information is protected by the Federal Confidentiality of Alcohol and Drug Abuse Patient Records regulations: The Federal rules restrict any use of the information to criminally investigate or prosecute any alcohol or drug abuse patient.[facility] ColumbusIn the event this information is protected by the Federal Confidentiality of Alcohol and Drug Abuse Patient Records regulations: The Federal rules restrict any use of the information to criminally investigate or prosecute any alcohol or drug abuse patient.[facility] ColumbusIn the event this information is protected by the Federal Confidentiality of Alcohol and Drug Abuse Patient Records regulations: The Federal rules restrict any use of the information to criminally investigate or prosecute any alcohol or drug abuse patient.[facility] ColumbusIn the event this information is protected by the Federal Confidentiality of Alcohol and Drug Abuse Patient Records regulations: The Federal rules restrict any use of the information to criminally investigate or prosecute any alcohol or drug abuse patient.[facility] ColumbusIn the event this information is protected by the Federal Confidentiality of Alcohol and Drug Abuse Patient Records regulations: The Federal rules restrict any use of the information to criminally investigate or prosecute any alcohol or drug abuse patient.[facility] ColumbusIn the event this information is protected by the Federal Confidentiality of Alcohol and Drug Abuse Patient Records regulations: The Federal rules restrict any use of the information to criminally investigate or prosecute any alcohol or drug abuse patient.[facility] ColumbusIn the event this information is protected by the Federal Confidentiality of Alcohol and Drug Abuse Patient Records regulations: The Federal rules restrict any use of the information to criminally investigate or prosecute any alcohol or drug abuse patient.[facility] ColumbusIn the event this information is protected by the Federal Confidentiality of Alcohol and Drug Abuse Patient Records regulations: The Federal rules restrict any use of the information to criminally investigate or prosecute any alcohol or drug abuse patient.[facility] ColumbusIn the event this information is protected by the Federal Confidentiality of Alcohol and Drug Abuse Patient Records regulations: The Federal rules restrict any use of the information to criminally investigate or prosecute any alcohol or drug abuse patient.[facility] ColumbusIn the event this information is protected by the Federal Confidentiality of Alcohol and Drug Abuse Patient Records regulations: The Federal rules restrict any use of the information to criminally investigate or prosecute any alcohol or drug abuse patient.[facility] ColumbusIn the event this information is protected by the Federal Confidentiality of Alcohol and Drug Abuse Patient Records regulations: The Federal rules restrict any use of the information to criminally investigate or prosecute any alcohol or drug abuse patient.[facility] ColumbusIn the event this information is protected by the Federal Confidentiality of Alcohol and Drug Abuse Patient Records regulations: The Federal rules restrict any use of the information to criminally investigate or prosecute any alcohol or drug abuse patient.[facility] ColumbusIn the event this information is protected by the Federal Confidentiality of Alcohol and Drug Abuse Patient Records regulations: The Federal rules restrict any use of the information to criminally investigate or prosecute any alcohol or drug abuse patient.[facility] ColumbusIn the event this information is protected by the Federal Confidentiality of Alcohol and Drug Abuse Patient Records regulations: The Federal rules restrict any use of the information to criminally investigate or prosecute any alcohol or drug abuse patient.[facility] ColumbusIn the event this information is protected by the Federal Confidentiality of Alcohol and Drug Abuse Patient Records regulations: The Federal rules restrict any use of the information to criminally investigate or prosecute any alcohol or drug abuse patient.[facility] ColumbusIn the event this information is protected by the Federal Confidentiality of Alcohol and Drug Abuse Patient Records regulations: The Federal rules restrict any use of the information to criminally investigate or prosecute any alcohol or drug abuse patient.[facility] ColumbusIn the event this information is protected by the Federal Confidentiality of Alcohol and Drug Abuse Patient Records regulations: The Federal rules restrict any use of the information to criminally investigate or prosecute any alcohol or drug abuse patient.[facility] ColumbusIn the event this information is protected by the Federal Confidentiality of Alcohol and Drug Abuse Patient Records regulations: The Federal rules restrict any use of the information to criminally investigate or prosecute any alcohol or drug abuse patient.[facility] ColumbusIn the event this information is protected by the Federal Confidentiality of Alcohol and Drug Abuse Patient Records regulations: The Federal rules restrict any use of the information to criminally investigate or prosecute any alcohol or drug abuse patient.[facility] ColumbusIn the event this information is protected by the Federal Confidentiality of Alcohol and Drug Abuse Patient Records regulations: The Federal rules restrict any use of the information to criminally investigate or prosecute any alcohol or drug abuse patient.[facility] ColumbusIn the event this information is protected by the Federal Confidentiality of Alcohol and Drug Abuse Patient Records regulations: The Federal rules restrict any use of the information to criminally investigate or prosecute any alcohol or drug abuse patient.[facility] ColumbusIn the event this information is protected by the Federal Confidentiality of Alcohol and Drug Abuse Patient Records regulations: The Federal rules restrict any use of the information to criminally investigate or prosecute any alcohol or drug abuse patient.[facility] ColumbusIn the event this information is protected by the Federal Confidentiality of Alcohol and Drug Abuse Patient Records regulations: The Federal rules restrict any use of the information to criminally investigate or prosecute any alcohol or drug abuse patient.[facility] ColumbusIn the event this information is protected by the Federal Confidentiality of Alcohol and Drug Abuse Patient Records regulations: The Federal rules restrict any use of the information to criminally investigate or prosecute any alcohol or drug abuse patient.[facility] ColumbusIn the event this information is protected by the Federal Confidentiality of Alcohol and Drug Abuse Patient Records regulations: The Federal rules restrict any use of the information to criminally investigate or prosecute any alcohol or drug abuse patient.[facility] ColumbusIn the event this information is protected by the Federal Confidentiality of Alcohol and Drug Abuse Patient Records regulations: The Federal rules restrict any use of the information to criminally investigate or prosecute any alcohol or drug abuse patient.[facility] ColumbusIn the event this information is protected by the Federal Confidentiality of Alcohol and Drug Abuse Patient Records regulations: The Federal rules restrict any use of the information to criminally investigate or prosecute any alcohol or drug abuse patient.[facility] ColumbusIn the event this information is protected by the Federal Confidentiality of Alcohol and Drug Abuse Patient Records regulations: The Federal rules restrict any use of the information to criminally investigate or prosecute any alcohol or drug abuse patient.[facility] ColumbusIn the event this information is protected by the Federal Confidentiality of Alcohol and Drug Abuse Patient Records regulations: The Federal rules restrict any use of the information to criminally investigate or prosecute any alcohol or drug abuse patient.[facility] ColumbusIn the event this information is protected by the Federal Confidentiality of Alcohol and Drug Abuse Patient Records regulations: The Federal rules restrict any use of the information to criminally investigate or prosecute any alcohol or drug abuse patient.[facility] ColumbusIn the event this information is protected by the Federal Confidentiality of Alcohol and Drug Abuse Patient Records regulations: The Federal rules restrict any use of the information to criminally investigate or prosecute any alcohol or drug abuse patient.[facility] ColumbusIn the event this information is protected by the Federal Confidentiality of Alcohol and Drug Abuse Patient Records regulations: The Federal rules restrict any use of the information to criminally investigate or prosecute any alcohol or drug abuse patient.[facility] ColumbusIn the event this information is protected by the Federal Confidentiality of Alcohol and Drug Abuse Patient Records regulations: The Federal rules restrict any use of the information to criminally investigate or prosecute any alcohol or drug abuse patient.[facility] ColumbusIn the event this information is protected by the Federal Confidentiality of Alcohol and Drug Abuse Patient Records regulations: The Federal rules restrict any use of the information to criminally investigate or prosecute any alcohol or drug abuse patient.[facility] ColumbusIn the event this information is protected by the Federal Confidentiality of Alcohol and Drug Abuse Patient Records regulations: The Federal rules restrict any use of the information to criminally investigate or prosecute any alcohol or drug abuse patient.[facility] ColumbusIn the event this information is protected by the Federal Confidentiality of Alcohol and Drug Abuse Patient Records regulations: The Federal rules restrict any use of the information to criminally investigate or prosecute any alcohol or drug abuse patient.[facility] ColumbusIn the event this information is protected by the Federal Confidentiality of Alcohol and Drug Abuse Patient Records regulations: The Federal rules restrict any use of the information to criminally investigate or prosecute any alcohol or drug abuse patient.[facility] Reason for Visit (unrecogniz ed section and content) Reason Comments Appointment Reason Comments Liver Disease Reason Onset Date Comments Refill Request 06/28/[address] Specialty Diagnoses / Procedures Referred By Contac t Referred To Contact CT IMAGING Diagnoses Liver lesion Procedures CT LIVER W IVCON CT ABDOMEN W/CONTRAST Hemalatha Bear MD [address] [place] [address] Ct Imaging Referral ID Status Reason Start Date Expiration Date V isits Requested Visits Authorized [id number] Closed Auto-Generate d Referral 07/23/2021 08/22/2022 1 [...] (HCC) Procedures CONSULT TO CARDIOLOGY OFFICE/OUTPATIENT [facility] MDM 60-[place] [address] [place] [id number] Referral ID Status Reason Start Date Expiration Date V isits Requested Visits Authorized [id number] Closed PCP Requested Referral 10/16/2021 10/16/2022 1 [...] bleeding Procedures CONSULT TO ENT OFFICE/OUTPATIENT [facility] MDM 60-74 MINUTES Flako Ornelas MD [address] [place] [address] Referral ID Status Reason Start Date Expiration Date V isits Requested Visits Authorized [id number] Closed PCP Requested Referral 04/20/2022 04/20/2023 1 [...] 2 diabetes mellitus without complication, 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) Procedures CONSULT TO OPHTHALMOLOGY OFFICE/OUTPATIENT [facility] MDM 60-74 MINUTES Flako Ornelas MD [address] [place] [address] Referral ID Status Reason Start Date Expiration Date V isits Requested Visits Authorized [id number] Closed PCP Requested Referral 01/15/2023 01/15/2024 1 1 Reason Onset Date Comments Refill Request 02/10/2023 Reason Comments Established Patient [facility] Follow Up Reason Comments Research IRB#[id number] Care Teams (unrecognized sec tion and content) Community Relations Advisor Relationship Specialty Start Date End Date Flako Ornelas MD [address] [place], [place] [phone] PCP - General Family Practice 10/11/20 Caitlin Shahid MD [address] [place] [address] Primary Staff Physician Cardiology 11/19/20 Community Relations Advisor Relationship Specialty Start Date End Date Flako Ornelas MD [address] [place], [place] [id number] PCP - General Family Practice 10/11/20 Caitlin Shahid MD [address] [facility] [place] [address] Primary Staff Physician Cardiology 11/19/20 Community Relations Advisor Relationship Specialty Start Date End Date Flako Ornelas MD [address] [place], [place] [phone] PCP - General Family Practice 10/11/20 Caitlin Shahid MD [address] [place] [address] Primary Staff Physician Cardiology 11/19/20 Community Relations Advisor Relationship Specialty Start Date End Date Flako Ornelas MD [address] [place] [address] PCP - General Family Practice 10/11/20 Caitlin Shahid MD [address] [place] [address] Primary Staff Physician Cardiology 11/19/20 Community Relations Advisor Relationship Specialty Start Date End Date Flako Ornelas MD [address] [place] [address] PCP - General Family Practice 10/11/20 Caitlin Shahid MD [address] [place] [address] Primary Staff Physician Cardiology 11/19/20 Community Relations Advisor Relationship Specialty Start Date End Date Flako Ornelas MD [address] [place] [address] PCP - General Family Practice 10/11/20 Caitlin Shahid MD [address] [place] [address] Primary Staff Physician Cardiology 11/19/20 Community Relations Advisor Relationship Specialty Start Date End Date Flako Ornelas MD [address] [place] [address] PCP - General Family Practice 10/11/20 Caitlin Shahid MD [address] [place] [address] Primary Staff Physician Cardiology 11/19/20 Community Relations Advisor Relationship Specialty Start Date End Date Flako Ornelas MD [address] [place] [address] PCP - General Family Practice 10/11/20 Caitlin Shahid MD [address] [place] [address] Primary Staff Physician Cardiology 11/19/20 Community Relations Advisor Relationship Specialty Start Date End Date Flako Ornelas MD [address] [place] [address] PCP - General Family Practice 10/11/20 Caitlin Shahid MD [address] [place] [address] Primary Staff Physician Cardiology 11/19/20 Community Relations Advisor Relationship Specialty Start Date End Date Flako Ornelas MD [address] [place] [address] PCP - General Family Practice 10/11/20 Caitlin Shahid MD [address] [place] [address] Primary Staff Physician Cardiology 11/19/20 Community Relations Advisor Relationship Specialty Start Date End Date Flako Ornelas MD [address] [place] [address] PCP - General Family Practice 10/11/20 Caitlin Shahid MD [address] [place] [address] Primary Staff Physician Cardiology 11/19/20 Community Relations Advisor Relationship Specialty Start Date End Date Flako Ornelas MD [address] [place] [address] PCP - General Family Practice 10/11/20 Caitlin Shahid MD [address] [place] [address] Primary Staff Physician Cardiology 11/19/20 Community Relations Advisor Relationship Specialty Start Date End Date Flako Ornelas MD [address] [place] [id number] PCP - General Family Practice 10/11/20 Caitlin Shahid MD [address] [facility] [place] [address] Primary Staff Physician Cardiology 11/19/20 Community Relations Advisor Relationship Specialty Start Date End Date Flako Ornelas MD [address] [place] [id number] PCP - General Family Practice 10/11/20 Caitlin Shahid MD [address] [place] [address] Primary Staff Physician Cardiology 11/19/20 Community Relations Advisor Relationship Specialty Start Date End Date Flako Ornelas MD [address] [place] [id number] PCP - General Family Medicine 10/11/20 Caitlin Shahid MD [address] [place] [address] Primary Staff Physician Cardiology 11/19/20 Community Relations Advisor Relationship Specialty Start Date End Date Flako Ornelas MD [address] [place] [id number] PCP - General Family Medicine 10/11/20 Caitlin Shahid MD [address] [facility] [place] [address] Primary Staff Physician Cardiology 11/19/20 Community Relations Advisor Relationship Specialty Start Date End Date Flako Ornelas MD [address] [place] [address] PCP - General Family Medicine 10/11/20 Caitlin Shahid MD [address] [place] [address] Primary Staff Physician Cardiology 11/19/20 Community Relations Advisor Relationship Specialty Start Date End Date Flako Ornelas MD [address] [place] [address] PCP - General Family Medicine 10/11/20 Caitlin Shahid MD [address] [place] [address] Primary Staff Physician Cardiology 11/19/20 Community Relations Advisor Relationship Specialty Start Date End Date Flako Ornelas MD [address] [place] [address] PCP - General Family Medicine 10/11/20 Caitlin Shahid MD [address] [place] [address] Primary Staff Physician Cardiology 11/19/20 Community Relations Advisor Relationship Specialty Start Date End Date Flako Ornelas MD [address] [place] [address] PCP - General Family Medicine 10/11/20 Caitlin Shahid MD [address] [place] [address] Primary Staff Physician Cardiology 11/19/20 Community Relations Advisor Relationship Specialty Start Date End Date Flako Ornelas MD [address] [place] [address] PCP - General Family Medicine 10/11/20 Caitlin Shahid MD [address] [place] [address] Primary Staff Physician Cardiology 11/19/20 Community Relations Advisor Relationship Specialty Start Date End Date Flako Ornelas MD [address] [place] [address] PCP - General Family Medicine 10/11/20 Caitlin Shahid MD [address] [place] [address] Primary Staff Physician Cardiology 11/19/20 Community Relations Advisor Relationship Specialty Start Date End Date Flako Ornelas MD [address] [place] [address] PCP - General Family Medicine 10/11/20 Caitlin Shahid MD [address] [place] [address] Primary Staff Physician Cardiology 11/19/20 Community Relations Advisor Relationship Specialty Start Date End Date Flako Ornelas MD [address] [place] [address] PCP - General Family Medicine 10/11/20 Caitlin Shahid MD [address] [place] [address] Primary Staff Physician Cardiology 11/19/20 Community Relations Advisor Relationship Specialty Start Date End Date Flako Ornelas MD [address] [place] [address] PCP - General Family Medicine 10/11/20 Caitlin Shahid MD [address] [place] [address] Primary Staff Physician Cardiology 11/19/20 Community Relations Advisor Relationship Specialty Start Date End Date Flako Orneals MD [address] [place] [address] PCP - General Family Medicine 10/11/20 Caitlin Shahid MD [address] [place] [address] Primary Staff Physician Cardiology 11/19/20 Community Relations Advisor Relationship Specialty Start Date End Date Flako Ornelas MD [address] [place] [address] PCP - General Family Medicine 10/11/20 Caitlin Shahid MD [address] [facility] [place] [address] Primary Staff Physician Cardiology 11/19/20 Community Relations Advisor Relationship Specialty Start Date End Date Flako Ornelas MD [address] [place] [address] PCP - General Family Medicine 10/11/20 Caitlin Shahid MD [address] [place] [address] Primary Staff Physician Cardiology 11/19/20 Community Relations Advisor Relationship Specialty Start Date End Date Flako Ornelas MD [address] [place] [address] PCP - General Family Medicine 10/11/20 Caitlin Shahid MD [address] [facility] [place] [address] Primary Staff Physician Cardiology 11/19/20 Community Relations Advisor Relationship Specialty Start Date End Date Flako Ornelas MD [address] [place] [address] PCP - General Family Medicine 10/11/20 Caitlin Shahid MD [address] [facility] [place] [address] Primary Staff Physician Cardiology 11/19/20 Community Relations Advisor Relationship Specialty Start Date End Date Flako Ornelas MD [address] [facility] [place] [address] PCP - General Family Medicine 10/11/20 Caitlin Shahid MD [address] [place] [address] Primary Staff Physician Cardiology 11/19/20 Community Relations Advisor Relationship Specialty Start Date End Date Flako Ornelas MD [address] [place] [address] PCP - General Family Medicine 10/11/20 Caitlin Shahid MD [address] [facility] [place] [address] Primary Staff Physician Cardiology 11/19/20 Community Relations Advisor Relationship Specialty Start Date End Date Flako Ornelas MD [address] [place] [address] PCP - General Family Medicine 10/11/20 Caitlin Shahid MD [address] [place] [address] Primary Staff Physician Cardiology 11/19/20 Community Relations Advisor Relationship Specialty Start Date End Date Flako Ornelas MD [address] [place] [address] PCP - General Family Medicine 10/11/20 Caitlin Shahid MD [address] [place] [address] Primary Staff Physician Cardiology 11/19/20 Community Relations Advisor Relationship Specialty Start Date End Date Flako Ornelas MD [address] [place] [address] PCP - General Family Medicine 10/11/20 Caitlin Shahid MD [address] [place], [place] [id number] Primary Staff Physician Cardiology 11/19/20 Community Relations Advisor Relationship Specialty Start Date End Date Flako Ornelas MD [address] [place] [address] PCP - General Family Medicine 10/11/20 Caitlin Shahid MD [address] [place], [place] [id number] Primary Staff Physician Cardiology 11/19/20 Community Relations Advisor Relationship Specialty Start Date End Date Flako Ornelas MD [address] [place], [place] [address]36641 PCP - General Family Medicine 10/11/20 Caitlin Shahid MD [address] [facility] [place] [address] Primary Staff Physician Cardiology 11/19/20 Community Relations Advisor Relationship Specialty Start Date End Date Flako Ornelas MD [address] [place] [address] PCP - General Family Medicine 10/11/20 Caitlin Shahid MD [address] [facility] [place] [address] Primary Staff Physician Cardiology 11/19/20 Community Relations Advisor Relationship Specialty Start Date End Date Flako Ornelas MD [address] [place], [place] [id number] PCP - General Family Medicine 10/11/20 Caitlin Shahid MD [address] [place] [address] Primary Staff Physician Cardiology 11/19/20 Community Relations Advisor Relationship Specialty Start Date End Date Flako Ornelas MD [address] [place], [place] [address]25531 PCP - General Family Medicine 10/11/20 Caitlin Shahid MD [address] [place], [place] [address]65[address] Primary Staff Physician Cardiology 11/19/20 Community Relations Advisor Relationship Specialty Start Date End Date Flako Ornelas MD [address] [place], [place] 324761 PCP - General Family Medicine 10/11/20 Caitlin Shahid MD [address] [place] [address] Primary Staff Physician Cardiology 11/19/20 Community Relations Advisor Relationship Specialty Start Date End Date Flako Ornelas MD [address] [place], [place] 352961 PCP - General Family Medicine 10/11/20 Caitlin Shahid MD [address] [place] [address] Primary Staff Physician Cardiology 11/19/20 Community Relations Advisor Relationship Specialty Start Date End Date Flako Ornelas MD [address] [place], [place] [address]851 PCP - General Family Medicine 10/11/20 Caitlin Shahid MD [address] [place], [place] [id number] Primary Staff Physician Cardiology 11/19/20 Community Relations Advisor Relationship Specialty Start Date End Date Flako Ornelas MD [address] [place], [place] [address]16671 PCP - General Family Medicine 10/11/20 Caitlin Shahid MD [address] [place], [place] 97[address] Primary Staff Physician Cardiology 11/19/20 Community Relations Advisor Relationship Specialty Start Date End Date Flako Ornelas MD [address] [place], [place] [address]48181 PCP - General Family Medicine 10/11/20 Caitlin Shahid MD [address] [place] [address] Primary Staff Physician Cardiology 11/19/20 Community Relations Advisor Relationship Specialty Start Date End Date Flako Ornelas MD [address] [place], [place] 322541 PCP - General Family Medicine 10/11/20 Caitlin Shahid MD [address] [place] [address] Primary Staff Physician Cardiology 11/19/20 Community Relations Advisor Relationship Specialty Start Date End Date Flako Ornelas MD [address] [place], [place] 318491 PCP - General Family Medicine 10/11/20 Caitlin Shahid MD [address] [place], [place] [address]204[address] Primary Staff Physician Cardiology 11/19/20 Community Relations Advisor Relationship Specialty Start Date End Date Flako Ornelas MD [address] [place] [address] PCP - General Family Medicine 10/11/20 Caitlin Shahid MD [address] [place] [address] Primary Staff Physician Cardiology 11/19/20 Community Relations Advisor Relationship Specialty Start Date End Date Flako Ornelas MD [address] [place] [address] PCP - General Family Medicine 10/11/20 Caitlin Shahid MD [address] [place] [address] Primary Staff Physician Cardiology 11/19/20 FOR RECORDS [...] BE BASED ON THE PRIMARY CLINICAL RECORDS. [facility] [employer] provides no warranty or guarantee of the accuracy or completeness of information in this document.
[2023-03-26] MEDS: Ceftriaxone 1 GM/50 ML BAG IV (23:26)
[2023-03-26] MEDS: Pantoprazole Sodium 80 MG in 0.9% Normal Saline (100mL Bag) 80 ML 10 MG CONT INF (23:30)
[2023-03-26 23:31] VITALS: BP 136/79; PULSE 79; RESP 18; O2SAT 97
[2023-03-26 23:49] VITALS: BMI 24.0
[2023-03-27] VITALS (15 sets, daily range): BP systolic 92–165; BP diastolic 72–87; PULSE 63–80; RESP 14–18; TEMP 36.7–37.4; O2SAT 94–98; BMI 24.0
[2023-03-27] MEDS: DiphenhydrAMINE 50 MG/ML Syringe 25 MG IV (01:10)
[2023-03-27] MEDS: 0.9% Normal Saline (1000mL) 1,000 ML 125 ML IV ×2 (01:24→08:46)
--- NOTE | 2023-03-27 05:55 | EKG12_ITS ---
Test Reason : AM EKG Blood Pressure : / mmHG Vent. Rate : 074 BPM Atrial Rate : 074 BPM P-R Int : 158 ms QRS Dur : 134 ms QT Int : 432 ms P-R-T Axes : 065 -05 120 degrees QTc Int : 479 ms Normal sinus rhythm Left ventricular hypertrophy with QRS widening and repolarization abnormality ( R in aVL , [place] pr oduct ) Cannot rule out Anteroseptal infarct , age undetermined Abnormal ECG No previous ECGs available Confirmed by SHANNAN KWON, ALEX ([id number]), film and video editor MINNIE DOWD ([id number]) on 03/30/2023 10:21:20 AM Referred By: Confirmed By:ALEX CAMPBELL MD
[2023-03-27 07:08] LABS: Absolute Lymphocyte Count 1.38 X10^3/uL (0.83-4.51); Absolute Neutrophil Count 3.7 X10^3/uL (2.0-7.7); Basophil# 0.01 X10^3/uL; Basophil% 0.2 % (0-1); Eosinophil# 0.06 X10^3/uL; Eosinophils% 1.1 % (0-5); Hematocrit 29.2 % (40-54); Hemoglobin 9.8 g/dL (13.0-16.5); Lymphocyte # 1.38 X10^3/ul (0.83-4.51); Lymphocyte % 24.3 % (19-41); Mean Corp Hgb Conc 33.6 g/dL (32-36); Mean Corpuscular Hgb 31.6 pg (27.0-32.0); Mean Corpuscular Volume 94.2 fL (80-94); Mean Platelet Vol. 13.9 fl (6.2-12.0); Monocyte# 0.48 X10^3/uL; Monocyte% 8.5 % (0-10); NRBC Flagged by Analyzer 0 % (0-5); Neutrophil # 3.73 X10^3/uL (2.7-7.7); Neutrophil % 65.7 % (47-70); POSITIVE COUNT YES; RBC Distribution Width CV 13.8 % (11.6-14.6); RBC Distribution Width SD 47.4 fl (35.1-43.9); White Blood Count 5.7 K/mm3 (4.4-11.0)
[2023-03-27 07:21] LABS: International Normalized Ratio 1.4; Prothrombin Time (Protime)PT. 17.2 SECONDS (11.7-14.9)
[2023-03-27 07:34] LABS: Platelet Count 61 K/mm3 (150-450)
[2023-03-27 07:43] LABS: Phosphorus 2.5 mg/dL (2.5-4.9)
[2023-03-27 07:47] LABS: ALB/GLOB Ratio 0.8 RATIO (0.9-2.4); AST(SGOT) 52 U/L (15-37); Alanine Aminotransfer ALT/SGPT 51 U/L (16-61); Albumin, Serum 2.8 g/dL (3.2-5.0); Alkaline Phosphatase 155 U/L (45-117); Anion Gap 6 (5-15); BUN 52 mg/dL (7-18); BUN/Creat Ratio 43.3 RATIO (10-20); Calcium,Total 8.2 mg/dL (8.5-10.1); Chloride 114 mmol/L (98-107); EST Glomerular Filtration Rate 63 mL/min (>60); Est Glom Filt Rate - Afr Amer 76 mL/min (>60); Estimated Creatinine Clearance 59.28 ml/min; Globulin 3.5 g/dL (2.2-4.2); Glucose 157 mg/dL (74-106); Magnesium 1.5 mg/dL (1.6-2.6); Potassium 3.7 mmol/L (3.5-5.1); Protein, Total 6.3 g/dL (6.4-8.2); Sodium Level 142 mmol/L (136-145); Thyroid Stim Hormone (TSH) 0.59 uIU/mL (0.358-3.74)
[2023-03-27] MEDS: Pantoprazole Sodium 80 MG in 0.9% Normal Saline (100mL Bag) 80 ML 10 MG CONT INF ×2 (08:41→17:36)
--- NOTE | 2023-03-27 10:16 | PCM.PN.HOSP ---
Reason for Visit Reason for Visit: Black bowel movements Subjective Subjective Mr. Barth is a 72-year-old white male who presented to the emergency department at [facility] on 03/26/2023 reporting he had multiple black bowel movements on the morning of admission. He indicated his stomach had just not felt right in the upper abdomen for a few days and he had not been able to eat. Upon presentation he denied any significant abdominal pain at the time. He had peptic ulcer disease when he was very young but has not had any issues since. He has had multiple endoscopies and 2 CT scans recently. He was diagnosed with autoimmune hepatitis and he sees a physician regularly for this and has a scan every 6 months. He is on multiple medications for immunosuppression for this but is not on any PPI. While he was in the emergency department he did have a coffee-ground emesis. Despite his multiple scopes in the past he is never been told he has varices related to his autoimmune hepatitis. He stopped taking his prescribed PPI a few weeks ago as he stated he did not think he needed it. His BUN/creatinine ratio was elevated with a BUN of 58 and a creatinine of 1.37. GI bleed is suspected to be upper. He was admitted the PCU and made n.p.o., placed on a Protonix drip and stool studies were assessed with his loose stool. GI has been consulted and plan is for EGD today. Patient states he is feeling okay today. Denies any current abdominal pain. Does not take any NSAIDs ever. He is anxious to get his endoscopy done as he is supposed to leave for vacation on Wednesday. Objective Data Objective Data Vital Signs: Vital Signs Temp Pulse Resp BP Pulse Ox O2 Del Method 98.5 F 80 17 114/78 96 Room Air 03/27/23 05:35 03/27/23 05:35 03/27/23 05:35 03/27/23 05:35 03/27/23 08:23 03/27/23 08:50 Oxygen Delivery Method Room Air Weight: 80.2 kg Body Mass Index (BMI) 24.0 Intake & Output: Intake and Output for Last 24 Hours 03/25/23 03/26/23 03/27/23 23:59 23:59 23:59 Intake Total 1035 / 1035 1062.66 / 1062.66 Balance 1035 / 1035 1062.66 / 1062.66 Lab / Micro Data 03/27/23 10:43 03/27/23 06:20 Labs: Laboratory Results - last 24 hr 03/26/23 19:50: WBC 9.9, RBC 3.80 L, Hgb 11.9 L, Hct 36.0 L, MCV 94.7 H, MCH 31.3, MCHC 33.1, RDW Std Deviation 46.8 H, RDW Coeff of Donna 13.6, Plt Count 86 L, MPV 13.4 H, Immature Gran % (Auto) 0.400, Neut % (Auto) 73.9 H, Lymph % (Auto) 16.9 L, [place] % (Auto) 7.6, Eos % (Auto) 0.9, Baso % (Auto) 0.3, Absolute Neuts (auto) 7.3, Absolute Lymphs (auto) 1.67, Nucleated RBC % 0, Sodium 138, Potassium 4.2, Chloride 106, Carbon Dioxide 27.0, Anion Gap 5, BUN 58 H, Creatinine 1.37 H, Estim Creat Clear Calc 51.92, Est GFR (MDRD) Af Amer 65, Est GFR (MDRD) Non-Af 54 L, BUN/Creatinine Ratio 42.3 H, Glucose 224 H, Calcium 9.1, Total Bilirubin 1.10 H, AST 62 H, ALT 65 H, Alkaline Phosphatase 194 H, Total Protein 7.2, Albumin 3.1 L, Globulin 4.1, Albumin/Globulin Ratio 0.8 L 03/26/23 21:21: Urine Color Yellow, Urine Clarity Clear, Urine pH 6.0, Ur Specific [place] 1.015, Urine Protein 100 H, Urine Glucose (UA) 100 H, Urine Ketones 5 H, Urine Occult Blood Negative, Urine Nitrite Negative, Urine Bilirubin Negative, Urine Urobilinogen Normal, Ur Leukocyte Esterase Negative, Urine RBC 0 SEEN, Urine WBC 0 SEEN, Ur Squamous Epith Cells 0 SEEN, Urine Bacteria 0 SEEN, Urine Mucus 0 SEEN 03/27/23 00:07: Blood Type O POSITIVE, Antibody Screen NEGATIVE 03/27/23 06:20: WBC 5.7, RBC 3.10 L, Hgb 9.8 L, Hct 29.2 L, MCV 94.2 H, MCH 31.6, MCHC 33.6, RDW Std Deviation 47.4 H, RDW Coeff of Donna 13.8, Plt Count 61 L, MPV 13.9 H, Immature Gran % (Auto) 0.200, Neut % (Auto) 65.7, Lymph % (Auto) 24.3, [place] % (Auto) 8.5, Eos % (Auto) 1.1, Baso % (Auto) 0.2, Absolute Neuts (auto) 3.7, Absolute Lymphs (auto) 1.38, Nucleated RBC % 0, PT 17.2 H, INR 1.4, Sodium 142, Potassium 3.7, Chloride 114 H, Carbon Dioxide 22.0, Anion Gap 6, BUN 52 H, Creatinine 1.20, Estim Creat Clear Calc 59.28, Est GFR (MDRD) Af Amer 76, Est GFR (MDRD) Non-Af 63, BUN/Creatinine Ratio 43.3 H, Glucose 157 H, Calcium 8.2 L, Phosphorus 2.5, Magnesium 1.5 L, Total Bilirubin 0.80, AST 52 H, ALT 51, Alkaline Phosphatase 155 H, Total Protein 6.3 L, Albumin 2.8 L, Globulin 3.5, Albumin/Globulin Ratio 0.8 L, TSH 0.59 Micro: Microbiology 03/26/23 22:19 Stool Stool Lactoferrin - Final 03/26/23 22:19 Stool Enteric Bacteriology - Final Physical Exam Const alert, oriented x3, no apparent distress, average body habitus, healthy appearing and well nourished Constitutional Narrative: Very pleasant, older, white male, sitting up in bed, at bedside, patient appears comfortable and nontoxic HEENT head/scalp atraumatic, moist oral mucous membranes and oropharynx normal HEENT Narrative: Mallampati 2, no thrush Head and Scalp: normocephalic Resp normal respiratory effort, no retractions, no use of accessory muscles and clear to auscultation bilaterally Auscultation: Negative for rales, rhonchi or wheezes Cardio regular rate, regular rhythm, S1 normal heart sound, S2 normal heart sound, no murmurs, no rub, no gallops and no clicks GI normal to inspection, nondistended, normoactive bowel sounds and soft to palpation GI Narrative: Very minimal tenderness in the epigastric/slight left upper quadrant area Extremity no clubbing, cyanosis or edema Extremity Narrative: Pedal pulses are 2+ Neuro oriented x3, moves all extremities and no focal motor deficits Speech: speech normal Psych affect normal Psych Narrative: Very pleasant, eye contact is good, patient interacts appropriately Assessment & Plan Assessment/Plan (1) Acute upper gastrointestinal bleeding: (2) History of immunosuppression therapy: (3) Diarrhea: QUALIFIERS: Diarrhea type: unspecified type Qualified Code(s): R19.7 - Diarrhea, unspecified (4) Anemia: QUALIFIERS: Anemia type: unspecified type Qualified Code(s): D64.9 - Anemia, unspecified PLAN: Plan Suspected upper GI bleed -Elevated BUN and creatinine ratio -Continue Protonix drip -Continue IV fluids -Continue n.p.o. status -Monitor hemoglobin serially -Since admission hemoglobin has dropped from 10.9-9.8 -Unclear if patient has cirrhosis or not but with GI bleed will continue ceftriaxone 1 g daily -GI is consulted-discussed case with Dr. 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
[2023-03-27 11:05] LABS: Hemoglobin 10.7 g/dL (13.0-16.5)
--- NOTE | 2023-03-27 11:20 | CASEMGMT ---
RAMIN MIRANDA Assessment: Face to Face with pt for initial transition planning/care coordination assessment. RN CM introduced self and role at [facility], pt voices understanding and consents to assessment. Pt is A&O x4 and answers all questions appropriately at this time. Pt lying in bed in no distress with at bedside. Care providers, pharmacy, and demographics verified/updated. Admitting Dx: upper GIB PCP:[facility] Specialists: [facility]; Cardio at [facility] Preferred Pharmacy: [facility] Insurance: [facility] Prescription Benefit: yes LNOK: Josy Barth, Living Arrangements: Pt lives with in a single story home with 2 steps to enter. Pt reports he is I in ADL's and denies concerns at home. Transportation: Pt drives self and denies concerns with transportation. DME:BP cuff, cane HHC/SNF: Denies hx of Pt states no concerns with going home at time of dc. Pt plans to leave Wednesday morning to go to [place]. Pt states no further concerns/needs. CM to follow. Advised pt to ask CM if any further question/concerns/needs arise, voices understanding. Pt Goal: Home Plan: Home
--- NOTE | 2023-03-27 14:37 | OP.EGD_ITS ---
Patient Name: Den Barth Procedure Date: 03/27/2023 1:38 PM Date of : 1950 Age: 72 Procedure: Upper GI endoscopy Indications: Hematemesis Providers: Tommy Cornejo DO Medicines: Monitored Anesthesia Care Patient Profile: This is a 72 year old male. Refer to note in patient chart for documentation of history and physical. Patient has symptoms of acute vomiting. Complications: No immediate complications. Procedure: Pre-Anesthesia Assessment: - Prior to the procedure, a History and Physical was performed, and patient medications and allergies were reviewed. The patient is competent. The risks and benefits of the procedure and the sedation options and risks were discussed with the patient. All questions were answered and informed consent was obtained. Patient identification and proposed procedure were verified by the physician. Mental Status Examination: alert and oriented. Prophylactic Antibiotics: The patient does not require prophylactic antibiotics. Prior Anticoagulants: The patient has taken no anticoagulant or antiplatelet agents. After reviewing the risks and benefits, the patient was deemed in satisfactory condition to undergo the procedure. The anesthesia plan was to use monitored anesthesia care (MAC). Immediately prior to administration of medications, the patient was re-assessed for adequacy to receive sedatives. The heart rate, respiratory rate, oxygen saturations, blood pressure, adequacy of pulmonary ventilation, and response to care were monitored throughout the procedure. The physical status of the patient was re-assessed after the procedure. After obtaining informed consent, the endoscope was passed under direct vision. Throughout the procedure, the patient's blood pressure, pulse, and oxygen saturations were monitored continuously. The Endoscope was introduced through the mouth, and advanced to the second part of duodenum. The upper GI endoscopy was accomplished without difficulty. The patient tolerated the procedure well. Scope In: 2:00:53 PM Scope Out: 2:28:27 PM Total Procedure Duration Time 0 hours 27 minutes 34 seconds Findings: Grade II varices were found in the lower third of the esophagus. They were 12 mm in largest diameter. Five bands were successfully placed with complete eradication, resulting in deflation of varices. Bleeding had stopped at the end of the procedure. To stop active bleeding, hemostatic spray was deployed. Six sprays were applied. There was no bleeding at the end of the procedure. No gross lesions were noted in the stomach. No gross lesions were noted in the duodenal bulb. Impression: - Grade II esophageal varices. Completely eradicated. Banded. hemostatic spray applied. - No gross lesions in the stomach. - No gross lesions in the duodenal bulb. - No specimens collected. Recommendation: - [facility] to [facility] for [facility] care. - NPO. - Administer an IV bolus of 50 micrograms of octreotide followed by an infusion of 50 micrograms per hour today. - Give Protonix (pantoprazole): initiate therapy with 80 mg IV bolus, then 8 mg/hr IV by continuous infusion. - Continue present medications. Procedure Code(s): --- Professional --- 82057, Esophagogastroduodenoscopy, flexible, transoral; with band ligation of esophageal/gastric varices 98443, 59,51, Esophagogastroduodenoscopy, flexible, transoral; with control of bleeding, any method CPT copyright 2021 [employer]. All rights reserved. The codes documented in this report are preliminary and upon tooling supervisor review may be revised to meet current compliance requirements. Tommy Cornejo DO 03/27/2023 2:37:31 PM This report has been signed electronically. Number of Addenda: 0 Note Initiated On: 03/27/2023 1:38 PM
--- NOTE | 2023-03-27 14:37 | OP.CCLET_ITS ---
03/27/2023 Flako Ornelas Re : Upper GI endoscopy procedure for Den Rodriguez Johnson This procedure was performed on Monday, March 27, 2023. My impressions and recommendations are as follows: Impressions : - Grade II esophageal varices. Completely eradicated. Banded. hemostatic spray applied. - No gross lesions in the stomach. - No gross lesions in the duodenal bulb. - No specimens collected. Recommendations : - Return [facility] to [facility] for ongoing care. - NPO. - Administer an IV bolus of 50 micrograms of octreotide followed by an infusion of 50 micrograms per hour today. - Give Protonix (pantoprazole): initiate therapy with 80 mg IV bolus, then 8 mg/hr IV by continuous infusion. - Continue present medications. My findings are described in the full procedure note, which is enclosed. If I can be of further assistance, please feel free to contact me at . Sincerely, Tommy Friend, 03/27/2023 2:37:31 PM This report has been signed electronically.
[2023-03-27] MEDS: Octreotide 0.5 MG in Dextrose 5%-Water (250mL Bag) 250 ML 12.5 MG CONT INF (16:23)
[2023-03-27] MEDS: 0.9% Normal Saline (1000mL) 1,000 ML 70 ML IV (16:28)
[2023-03-27] MEDS: Ondansetron 4 MG/2 ML Vial IV (17:37)
[2023-03-27 17:45] LABS: Hemoglobin 10.4 g/dL (13.0-16.5)
[2023-03-27] MEDS: Metoprolol Tartrate 5 MG/5 ML Vial IV ×2 (17:49→23:50)
[2023-03-27] MEDS: Morphine 4 MG/ML Syringe IV (18:00)
[2023-03-27] MEDS: 0.9% Saline Lock 10 ML Syringe IV ×3 (18:00→23:52)
[2023-03-27] MEDS: Ceftriaxone 1 GM/50 ML BAG IV (22:04)
[2023-03-27] MEDS: Morphine 4 MG/ML Syringe 3 MG IV (22:04)
[2023-03-27 22:58] LABS: Hemoglobin 9.4 g/dL (13.0-16.5)
[2023-03-28] VITALS (8 sets, daily range): BP systolic 124–151; BP diastolic 74–91; PULSE 57–96; RESP 18; TEMP 36.6–36.9; O2SAT 94–97; BMI 23.6
[2023-03-28] MEDS: Morphine 4 MG/ML Syringe 3 MG IV ×2 (03:19→22:27)
[2023-03-28] MEDS: 0.9% Saline Lock 10 ML Syringe IV ×5 (03:19→22:26)
[2023-03-28] MEDS: Pantoprazole Sodium 80 MG in 0.9% Normal Saline (100mL Bag) 80 ML 10 MG CONT INF ×3 (03:24→22:26)
[2023-03-28] MEDS: Metoprolol Tartrate 5 MG/5 ML Vial IV ×3 (05:20→17:32)
[2023-03-28] MEDS: 0.9% Normal Saline (1000mL) 1,000 ML 70 ML IV ×2 (05:35→21:26)
[2023-03-28 06:54] LABS: Absolute Lymphocyte Count 0.96 X10^3/uL (0.83-4.51); Absolute Neutrophil Count 2.5 X10^3/uL (2.0-7.7); Basophil# 0.02 X10^3/uL; Basophil% 0.5 % (0-1); Eosinophil# 0.09 X10^3/uL; Eosinophils% 2.3 % (0-5); Hematocrit 27.6 % (40-54); Hemoglobin 9.2 g/dL (13.0-16.5); Lymphocyte # 0.96 X10^3/ul (0.83-4.51); Lymphocyte % 24.7 % (19-41); Mean Corp Hgb Conc 33.3 g/dL (32-36); Mean Corpuscular Hgb 31.4 pg (27.0-32.0); Mean Corpuscular Volume 94.2 fL (80-94); Mean Platelet Vol. 13.9 fl (6.2-12.0); Monocyte# 0.33 X10^3/uL; Monocyte% 8.5 % (0-10); NRBC Flagged by Analyzer 0 % (0-5); Neutrophil # 2.47 X10^3/uL (2.7-7.7); Neutrophil % 63.7 % (47-70); POSITIVE COUNT YES; RBC Distribution Width SD 47.9 fl (35.1-43.9); Red Blood Count 2.93 M/mm3 (4.6-6.2); White Blood Count 3.9 K/mm3 (4.4-11.0)
[2023-03-28 07:09] LABS: Differential Indicated SCAN CRITERIA MET; Platelet Count 46 K/mm3 (150-450)
[2023-03-28 07:28] LABS: Anion Gap 5 (5-15); BUN 32 mg/dL (7-18); BUN/Creat Ratio 23.4 RATIO (10-20); Calcium,Total 8.2 mg/dL (8.5-10.1); Chloride 112 mmol/L (98-107); Creatinine, Serum 1.37 mg/dL (0.70-1.30); EST Glomerular Filtration Rate 54 mL/min (>60); Est Glom Filt Rate - Afr Amer 65 mL/min (>60); Estimated Creatinine Clearance 51.92 ml/min; Glucose 137 mg/dL (74-106); Potassium 4.1 mmol/L (3.5-5.1); Sodium Level 141 mmol/L (136-145)
[2023-03-28 09:52] LABS: Differential Comment SCANNED; Platelet Estimate MKD DEC (ADEQ)
[2023-03-28] MEDS: Octreotide 0.5 MG in Dextrose 5%-Water (250mL Bag) 250 ML 12.5 MG CONT INF (12:21)
--- NOTE | 2023-03-28 13:25 | PCM.PN.HOSP ---
Reason for Visit Reason for Visit: Black bowel movements Subjective Subjective No issues overnight. Patient denies any abdominal pain. Hemoglobin appears to be stable however his platelet count did drop significantly. Upon my arrival he was stating he hopes I have good news for him but unfortunately we are highly recommending he stay due to the severity of bleeding found on his EGD and the amount of bands it took to stop the 1 varices from bleeding. I discussed with him that one of his varices took 5 bands to get the bleeding to stop and this area is very fragile so if we advance his diet too quickly or stop his medications too soon he is at high risk for repeat bleeding. He, of course, was very disappointed because we could not discharge him today but was understanding. I have ordered a clear liquid diet but he has not tried anything of substance yet with regards to this diet. Thus far he is only had some sips and chips and some soda. Objective Data Objective Data Vital Signs: Vital Signs Temp Pulse Resp BP Pulse Ox O2 Del Method 97.9 F 67 18 140/74 H 94 Room Air 03/28/23 10:00 03/28/23 12:13 03/28/23 10:00 03/28/23 12:13 03/28/23 10:00 03/28/23 10:00 Oxygen Delivery Method Room Air Weight: 79 kg Body Mass Index (BMI) 23.6 Intake & Output: Intake and Output for Last 24 Hours 03/26/23 03/27/23 03/28/23 23:59 23:59 23:59 Intake Total 1035 / 1035 2219.50 / 2219.50 1534.25 / 1534.25 Output Total Balance 1035 / 1035 2219.50 / 2218.50 1533.25 / 1533.25 Lab / Micro Data 03/28/23 05:08 03/28/23 05:08 Labs: Laboratory Results - last 24 hr 03/27/23 17:32: Hgb 10.4 L 03/27/23 22:28: Hgb 9.4 L 03/28/23 05:08: WBC 3.9 L, RBC 2.93 L, Hgb 9.2 L, Hct 27.6 L, MCV 94.2 H, MCH 31.4, MCHC 33.3, RDW Std Deviation 47.9 H, RDW Coeff of Donna 14.0, Plt Count 46 L*, MPV 13.9 H, Immature Gran % (Auto) 0.300, Neut % (Auto) 63.7, Lymph % (Auto) 24.7, [place] % (Auto) 8.5, Eos % (Auto) 2.3, Baso % (Auto) 0.5, Absolute Neuts (auto) 2.5, Absolute Lymphs (auto) 0.96, Nucleated RBC % 0, Differential Comment SCANNED, Diff Path Review July foll, Platelet Estimate MKD DEC, Sodium 141, Potassium 4.1, Chloride 112 H, Carbon Dioxide 24.0, Anion Gap 5, BUN 32 H, Creatinine 1.37 H, Estim Creat Clear Calc 51.92, Est GFR (MDRD) Af Amer 65, Est GFR (MDRD) Non-Af 54 L, BUN/Creatinine Ratio 23.4 H, Glucose 137 H, Calcium 8.2 L Micro: Microbiology 03/26/23 22:19 Stool Stool Lactoferrin - Final 03/26/23 22:19 Stool Enteric Bacteriology - Final Physical Exam Const alert, oriented x3, no apparent distress, average body habitus, healthy appearing and well nourished Constitutional Narrative: Very pleasant, older, white male, sitting up in bed, patient appears comfortable and nontoxic General Appearance: cooperative HEENT normocephalic, head/scalp atraumatic, hearing grossly normal bilaterally and moist oral mucous membranes Resp normal respiratory effort, no retractions, no use of accessory muscles and clear to auscultation bilaterally Auscultation: Negative for rales, rhonchi or wheezes Cardio regular rate, regular rhythm, S1 normal heart sound, S2 normal heart sound, no murmurs, no rub, no gallops and no clicks GI normal to inspection, nondistended, normoactive bowel sounds, soft to palpation and non-tender GI Narrative: Tenderness present yesterday has resolved Extremity normal to inspection, full ROM and no clubbing, cyanosis or edema Extremity Narrative: Pedal pulses are 2+ Neuro oriented x3, moves all extremities and no focal motor deficits Speech: speech normal Psych affect normal Psych Narrative: Very pleasant, eye contact is good, patient interacts appropriately Assessment & Plan Assessment/Plan (1) Acute upper gastrointestinal bleeding: (2) History of immunosuppression therapy: (3) Diarrhea: QUALIFIERS: Diarrhea type: unspecified type Qualified Code(s): R19.7 - Diarrhea, unspecified (4) Anemia: QUALIFIERS: Anemia type: unspecified type Qualified Code(s): D64.9 - Anemia, unspecified (5) Elevated serum creatinine: (6) Esophageal varices: PLAN: Plan Upper GI bleed secondary to grade 2 esophageal varix bleeding -EGD was performed on 04/16/2023 and found grade 2 esophageal varices that were able to be completely eradicated with extensive banding and Hemospray, no gross lesions were found in the stomach or the duodenum -Continue Protonix drip for another 24 hours -Continue octreotide drip for another 24 hours -Continue IV fluids -Okay to start clear liquid diet -Monitor hemoglobin serially -Hemoglobin now has been stable in the [facility] -Continue ceftriaxone 1 g daily for SBP prophylaxis in the setting of cirrhosis -GI following-would discuss with them before advancing diet Acute blood loss anemia secondary to the above -Hemoglobin stable in the [address] currently -Transfuse for precipitous drop or hemoglobin less than 7 -Treatment for bleeding as above -No current sign of active bleeding Chronic thrombocytopenia -Baseline platelet count appears to run between 70,000 and 90,000 -Count has dropped to 46,000 today -No obvious signs of bleeding so no platelet transfusion currently -Repeat CBC in a.m. Elevated serum creatinine -Creatinine has been fluctuating -Continue IV fluids while n.p.o./on clear liquid diet -May have some baseline CKD however I do not have enough data to tell at this time what his baseline serum creatinine runs History of autoimmune hepatitis -Has had multiple images and EGDs -Has never been told he has varices -Continue home medication for immunosuppression once able to restart p.o. 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 medication Hypertension -IV metoprolol 5 every 6 with hold parameters in place -Continue to hold home oral medications -As needed hydralazine is available History of arthritis -Patient denies ever using NSAIDs -As needed Tylenol if needed DVT prophylaxis -SCDs -Chemoprophylaxis contraindicated due to GI bleeding CODE STATUS -Full code Charges/Coding Visit Charges Inpatient E&M: 74409 Subs Hosp L2
[2023-03-28 14:07] LABS: Hemoglobin 8.5 g/dL (13.0-16.5)
--- NOTE | 2023-03-28 20:01 | EX.PCM.PN.GI ---
Subjective Subjective Patient denies any black stools, chest pain or shortness of breath. He is status post upper endoscopy with treatment of esophageal varices and has been on octreotide, PPI drip and been getting ceftriaxone for massive upper GI bleed due to esophageal variceal bleed. Patient has been tolerating liquid diet without any problems. He states that he wants to leave but he knows how sick he is at this time. Objective Data Objective Data Vital Signs: Vital Signs Temp Pulse Resp BP Pulse Ox O2 Del Method 98.3 F 63 18 145/78 H 95 Room Air 03/28/23 15:20 03/28/23 17:32 03/28/23 15:20 03/28/23 17:32 03/28/23 15:20 03/28/23 19:45 Oxygen Delivery Method Room Air Weight: 174 lb 2.643 oz Body Mass Index (BMI) 23.6 Intake & Output: Intake and Output for Last 24 Hours 03/26/23 03/27/23 03/28/23 23:59 23:59 23:59 Intake Total 1035 / 1035 2219.50 / 2219.50 1894.25 / 1894.25 Output Total 0 Balance 1035 / 1035 2219.50 / 2218.50 1893.25 / 1893.25 Lab / Micro Data 03/28/23 17:30 03/28/23 05:08 Labs: Laboratory Results - last 24 hr 03/27/23 22:28: Hgb 9.4 L 03/28/23 05:08: WBC 3.9 L, RBC 2.93 L, Hgb 9.2 L, Hct 27.6 L, MCV 94.2 H, MCH 31.4, MCHC 33.3, RDW Std Deviation 47.9 H, RDW Coeff of Donna 14.0, Plt Count 46 L*, MPV 13.9 H, Immature Gran % (Auto) 0.300, Neut % (Auto) 63.7, Lymph % (Auto) 24.7, [place] % (Auto) 8.5, Eos % (Auto) 2.3, Baso % (Auto) 0.5, Absolute Neuts (auto) 2.5, Absolute Lymphs (auto) 0.96, Nucleated RBC % 0, Differential Comment SCANNED, Diff Path Review May foll, Platelet Estimate MKD DEC, Sodium 141, Potassium 4.1, Chloride 112 H, Carbon Dioxide 24.0, Anion Gap 5, BUN 32 H, Creatinine 1.37 H, Estim Creat Clear Calc 51.92, Est GFR (MDRD) Af Amer 65, Est GFR (MDRD) Non-Af 54 L, BUN/Creatinine Ratio 23.4 H, Glucose 137 H, Calcium 8.2 L 03/28/23 13:44: Hgb 8.5 L 03/28/23 17:30: Hgb 9.0 L Micro: Microbiology 03/26/23 22:19 Stool Stool Lactoferrin - Final 03/26/23 22:19 Stool Enteric Bacteriology - Final Physical Exam Const alert, oriented x3, no apparent distress, average body habitus and healthy appearing General Appearance: cooperative HEENT normocephalic, head/scalp atraumatic, hearing grossly normal bilaterally and moist oral mucous membranes Eyes PERRL and EOMs intact bilaterally Neck no lymphadenopathy and supple Resp normal respiratory effort, no retractions, no use of accessory muscles and clear to auscultation bilaterally Cardio regular rate and regular rhythm GI normal to inspection, nondistended, normoactive bowel sounds, soft to palpation, non-tender and non-distended Extremity normal to inspection and full ROM Skin Skin Narrative: Patient has no evidence of rash at this time. Neuro oriented x3, CN's II-XII intact bilaterally, moves all extremities and no focal motor deficits Sensorium / Orientation: awake, alert, oriented to person, oriented to place and oriented to time Speech: speech normal Motor Exam: strength 5/5 throughout Psych affect normal Assessment & Plan Assessment/Plan (1) Acute upper gastrointestinal bleeding: (2) History of immunosuppression therapy: (3) Diarrhea: QUALIFIERS: Diarrhea type: unspecified type Qualified Code(s): R19.7 - Diarrhea, unspecified (4) Anemia: QUALIFIERS: Anemia type: unspecified type Qualified Code(s): D64.9 - Anemia, unspecified (5) Elevated serum creatinine: (6) Esophageal varices: QUALIFIERS: Esophageal varices type: idiopathic Esophageal varices bleeding: with bleeding Qualified Code(s): I85.01 - Esophageal varices with bleeding PLAN: Plan 72-year-old gentleman with type I autoimmune hepatitis on immunosuppression presents with upper GI bleed that is been going on for about a week. Upper GI bleed secondary to grade 2 esophageal varix bleeding -EGD was performed on 04/16/2023 and found grade 2 esophageal varices that were able to be completely eradicated with extensive banding and Hemospray, no gross lesions were found in the stomach or the duodenum -Continue Protonix drip for another 24 hours -Continue octreotide drip for another 24 hours -Continue IV fluids - clear liquid diet -Monitor hemoglobin serially -Hemoglobin now has been stable in the low nines -Continue ceftriaxone 1 g daily for SBP prophylaxis in the setting of cirrhosis Chronic thrombocytopenia -Baseline platelet count appears to run between 70,000 and 90,000 -Count has dropped to 46,000 today -No obvious signs of bleeding so no platelet transfusion currently -Repeat CBC in a.m. History of autoimmune hepatitis -Continue home medication for immunosuppression once able to restart p.o. 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
[2023-03-28] MEDS: Ceftriaxone 1 GM/50 ML BAG IV (21:23)
[2023-03-29 00:15] VITALS: PULSE 58
[2023-03-29 03:20] VITALS: BP 130/80; PULSE 68; RESP 18; TEMP 37.1; O2SAT 97
[2023-03-29 05:09] VITALS: BP 130/72; PULSE 63
[2023-03-29] MEDS: Metoprolol Tartrate 5 MG/5 ML Vial IV ×2 (05:09→11:37)
[2023-03-29 06:00] VITALS: BMI 23.4
[2023-03-29 06:54] LABS: Absolute Neutrophil Count 2.6 X10^3/uL (2.0-7.7); Basophil# 0.02 X10^3/uL; Basophil% 0.4 % (0-1); Eosinophil# 0.17 X10^3/uL; Eosinophils% 3.7 % (0-5); Hematocrit 28.4 % (40-54); Hemoglobin 9.3 g/dL (13.0-16.5); Lymphocyte % 30.5 % (19-41); Mean Corp Hgb Conc 32.7 g/dL (32-36); Mean Corpuscular Hgb 31.3 pg (27.0-32.0); Mean Corpuscular Volume 95.6 fL (80-94); Mean Platelet Vol. 13.7 fl (6.2-12.0); Monocyte# 0.41 X10^3/uL; Monocyte% 8.9 % (0-10); NRBC Flagged by Analyzer 0 % (0-5); Neutrophil # 2.58 X10^3/uL (2.7-7.7); Neutrophil % 56.3 % (47-70); POSITIVE COUNT YES; Platelet Count 56 K/mm3 (150-450); RBC Distribution Width CV 13.9 % (11.6-14.6); RBC Distribution Width SD 47.8 fl (35.1-43.9); Red Blood Count 2.97 M/mm3 (4.6-6.2); White Blood Count 4.6 K/mm3 (4.4-11.0)
[2023-03-29 07:08] LABS: Differential Indicated SCAN CRITERIA MET
[2023-03-29 07:19] LABS: Anion Gap 4 (5-15); BUN 21 mg/dL (7-18); BUN/Creat Ratio 14.3 RATIO (10-20); Calcium,Total 8.2 mg/dL (8.5-10.1); Chloride 110 mmol/L (98-107); Creatinine, Serum 1.47 mg/dL (0.70-1.30); EST Glomerular Filtration Rate 50 mL/min (>60); Est Glom Filt Rate - Afr Amer 60 mL/min (>60); Estimated Creatinine Clearance 48.39 ml/min; Glucose 138 mg/dL (74-106); Potassium 3.9 mmol/L (3.5-5.1); Sodium Level 139 mmol/L (136-145)
[2023-03-29 07:36] LABS: Platelet Estimate MKD DEC (ADEQ)
[2023-03-29] MEDS: Pantoprazole Sodium 80 MG in 0.9% Normal Saline (100mL Bag) 80 ML 10 MG CONT INF (08:25)
[2023-03-29] MEDS: Octreotide 0.5 MG in Dextrose 5%-Water (250mL Bag) 250 ML 12.5 MG CONT INF (08:26)
[2023-03-29 08:44] VITALS: BP 143/77; PULSE 62; RESP 16; TEMP 37.1; O2SAT 98
--- NOTE | 2023-03-29 09:05 | PCM.DC ---
Discharge Instructions Diet Discharge Diet: Light diet - advance as tolerated (For 5 days) Activity Discharge Activity: Return to Normal Activity Weight Bearing Status: Weight bearing as tolerated Dressing / Incision Call your doctor if you observe: Fever of 101 or Higher, Coldness, Increased Pain, Numbness or Tingling, Change in Color, Inability to urinate, Inability to have a bowel movement, Shortness of breath, Dizziness, Fainting spells, Swelling in the ankles, Chest pain, Prolonged hiccupping, Increased palpitations (irregular heartbeat) and Calf discomfort Follow Up Care When: IN 2 WEEKS Test Results: Test results from this visit will be discussed in further detail at your follow-up appointment, if applicable. Discharge Plan Admission Admit Date/Time: 03/26/23 22:53 Attending Provider: Syed Salazar Primary Care Provider: Flako Ornelas Consulting Providers: Noah Sharma; Roselia Santos; Noah Jernigan Instructions Additional Instructions / Restrictions: Follow-up with Dr. Bear, [facility] [employer] officer in 1 month. Discharge Orders/Prescriptions Prescriptions: New pantoprazole [Protonix] 40 mg tablet,delayed release (DR/EC) 40 mg PO BID Qty: 60 2RF Rx Instructions: advised TWICE DAILY FOR 2 months THEN ONCE DAILY Continued clonidine HCl 0.1 MG tablet 1.5 tab PO BID tacrolimus 1 MG capsule 1 mg PO BID amlodipine 5 mg tablet 5 mg PO DAILY probenecid 500 mg tablet 500 mg PO BID mycophenolate mofetil [CellCept] 500 mg tablet 500 mg PO BID metoprolol succinate 100 mg tablet extended release 24 hr 100 mg PO Q12H Discontinued Metoprolol Succinate 100 mg PO BID omeprazole 20 MG capsule 20 mg PO BID Referrals / Follow Up: Flako Ornelas MD [Primary Care Provider] - Within 2 Weeks Disposition Disposition (needs filled in before D/C Order can be placed): Home, Self Care
--- NOTE | 2023-03-29 09:06 | PCM.PN.HOSP ---
Reason for Visit Reason for Visit: Diagnoses Anemia, unspecified (03/26/23) Thrombocytopenia, unspecified (03/26/23) Esophageal varices without bleeding (03/26/23) Esophageal varices with bleeding (03/26/23) Autoimmune hepatitis (03/26/23) Gastrointestinal hemorrhage, unspecified (03/26/23) Diarrhea, unspecified (03/26/23) Other specified abnormal findings of blood chemistry (03/26/23) Personal history of immunosuppression therapy (03/26/23) Objective Data Objective Data Vital Signs: Vital Signs Temp Pulse Resp BP Pulse Ox O2 Del Method 98.7 F 62 16 143/77 H 98 Room Air 03/29/23 08:44 03/29/23 08:44 03/29/23 08:44 03/29/23 08:44 03/29/23 08:44 03/29/23 08:44 Oxygen Delivery Method Room Air Weight: 173 lb 1.006 oz Body Mass Index (BMI) 23.4 Intake & Output: Intake and Output for Last 24 Hours 03/27/23 03/28/23 03/29/23 23:59 23:59 23:59 Intake Total 2219.50 / 2219.50 3044.25 / 3524.25 1310.83 / 1310.83 Output Total Balance 2219.50 / 2218.50 3043.25 / 3523.25 1309.83 / 1309.83 Lab / Micro Data 03/29/23 06:00 03/29/23 06:00 Labs: Laboratory Results - last 24 hr 03/28/23 05:08: Differential Comment SCANNED, Diff Path Review July, Platelet Estimate MKD 03/28/23 13:44: Hgb 8.5 L 03/28/23 17:30: Hgb 9.0 L 03/29/23 06:00: WBC 4.6, RBC 2.97 L, Hgb 9.3 L, Hct 28.4 L, MCV 95.6 H, MCH 31.3, MCHC 32.7, RDW Std Deviation 47.8 H, RDW Coeff of Donna 13.9, Plt Count 56 L, MPV 13.7 H, Immature Gran % (Auto) 0.200, Neut % (Auto) 56.3, Lymph % (Auto) 30.5, [place] % (Auto) 8.9, Eos % (Auto) 3.7, Baso % (Auto) 0.4, Absolute Neuts (auto) 2.6, Absolute Lymphs (auto) 1.40, Nucleated RBC % 0, Platelet Estimate MKD DEC, Sodium 139, Potassium 3.9, Chloride 110 H, Carbon Dioxide 25.0, Anion Gap 4 L, BUN 21 H, Creatinine 1.47 H, Estim Creat Clear Calc 48.39, Est GFR (MDRD) Af Amer 60, Est GFR (MDRD) Non-Af 50 L, BUN/Creatinine Ratio 14.3, Glucose 138 H, Calcium 8.2 L Micro: Microbiology 03/26/23 22:19 Stool Stool Lactoferrin - Final 03/26/23 22:19 Stool Enteric Bacteriology - Final Assessment & Plan Assessment/Plan (1) Acute upper gastrointestinal bleeding: (2) History of immunosuppression therapy: (3) Diarrhea: QUALIFIERS: Diarrhea type: unspecified type Qualified Code(s): R19.7 - Diarrhea, unspecified (4) Anemia: QUALIFIERS: Anemia type: unspecified type Qualified Code(s): D64.9 - Anemia, unspecified (5) Elevated serum creatinine: (6) Esophageal varices: QUALIFIERS: Esophageal varices bleeding: with bleeding Esophageal varices type: idiopathic Qualified Code(s): I85.01 - Esophageal varices with bleeding PLAN: Plan Upper GI bleed secondary to grade 2 esophageal varix bleeding -EGD was performed on 04/16/2023 and found grade 2 esophageal varices that were able to be completely eradicated with extensive banding and Hemospray, no gross lesions were found in the stomach or the duodenum -Continue Protonix drip for another 24 hours -Continue octreotide drip for another 24 hours -Continue IV fluids -Okay to start clear liquid diet -Monitor hemoglobin serially -Hemoglobin now has been stable in the [facility] -Continue ceftriaxone 1 g daily for SBP prophylaxis in the setting of cirrhosis -GI following-would discuss with them before advancing diet Acute blood loss anemia secondary to the above -Hemoglobin stable in the [facility] region currently -Transfuse for precipitous drop or hemoglobin less than 7 -Treatment for bleeding as above -No current sign of active bleeding Chronic thrombocytopenia -Baseline platelet count appears to run between 70,000 and 90,000 -Count has dropped to 46,000 today -No obvious signs of bleeding so no platelet transfusion currently -Repeat CBC in a.m. Elevated serum creatinine -Creatinine has been fluctuating -Continue IV fluids while n.p.o./on clear liquid diet -May have some baseline CKD however I do not have enough data to tell at this time what his baseline serum creatinine runs History of autoimmune hepatitis -Has had multiple images and EGDs -Has never been told he has varices -Continue home medication for immunosuppression once able to restart p.o. medication -Ongoing outpatient follow-up after discharge with guest experience specialist History of gout -Restart home probenecid once able to start p.o. medication Hypertension -IV metoprolol 5 every 6 with hold parameters in place -Continue to hold home oral medications -As needed hydralazine is available History of arthritis -Patient denies ever using NSAIDs -As needed Tylenol if needed DVT prophylaxis -SCDs -Chemoprophylaxis contraindicated due to GI bleeding CODE STATUS -Full code
[2023-03-29] MEDS: 0.9% Normal Saline (1000mL) 1,000 ML 70 ML IV (11:20)
[2023-03-29 11:37] VITALS: BP 143/77; PULSE 65
[2023-03-29 12:11] LABS: Pathologist Review Reviewed
[2023-03-29 13:05] VITALS: BP 125/67; PULSE 61; RESP 14; TEMP 37; O2SAT 99
--- NOTE | 2023-03-29 13:09 | PCM.DC.SUM ---
Providers Date of Admission: 03/26/23 Date of Discharge: 03/29/23 Primary Care Physician: Dr. Flako Ornelas MD Reason For Visit: UPPER GI BLEED Diagnosis Discharge Diagnosis (1) Acute upper gastrointestinal bleeding: Status: Acute Code(s): K92.2 - Gastrointestinal hemorrhage, unspecified (2) History of immunosuppression therapy: Status: Inactive Code(s): Z92.25 - Personal history of immunosuppression therapy (3) Diarrhea: Status: Deleted Code(s): R19.7 - Diarrhea, unspecified Qualifiers: Diarrhea type: unspecified type Qualified Code(s): R19.7 - Diarrhea, unspecified (4) Anemia: Status: Acute Code(s): D64.9 - Anemia, unspecified Qualifiers: Anemia type: unspecified type Qualified Code(s): D64.9 - Anemia, unspecified (5) Elevated serum creatinine: Status: Acute Code(s): R79.89 - Other specified abnormal findings of blood chemistry (6) Esophageal varices: Status: Acute Code(s): I85.00 - Esophageal varices without bleeding Qualifiers: Esophageal varices type: idiopathic Esophageal varices bleeding: with bleeding Qualified Code(s): I85.01 - Esophageal varices with bleeding Plan 72-year-old gentleman with multiple comorbidities was admitted for black stool/melena and coffee-ground emesis. Symptoms started in the morning of admission along with upper abdominal discomfort with decreased appetite. Upper GI bleed secondary to grade 2 esophageal varix bleeding: Patient was admitted in PCU. GI was consulted -EGD was performed on 04/16/2023 and found grade 2 esophageal varices that were able to be completely eradicated with extensive banding and Hemospray, no gross lesions were found in the stomach or the duodenum Patient was treated with IV Protonix drip, octreotide drip and IV ceftriaxone for more than 60 hours. Pantoprazole switched to oral 40 mg twice daily. With GI bleed, severe anemia and thrombocytopenia; CellCept was held and recommended to hold for [address] Bear before resumption. - Acute blood loss anemia secondary to acute upper GI bleed: Patient hemoglobin is 9.3. Platelet count 56,000. Hemoglobin has been above 9% for last 2 days. He has baseline hemoglobin seems 13.2. Patient did not require blood transfusion or blood products. Chronic thrombocytopenia -Baseline platelet count appears to run between 70,000 and 90,000. It was 46,000 yesterday. Platelet count 56,000. Improving CKD stage IIIa: He is estimated creatinine clearance fluctuates about 55 mL/min. 1.37, 1.47. Follow-up BMP in 1 week and follow with PCP. If creatinine goes high, tacrolimus dose needs to be readjusted, probably decreased History of autoimmune hepatitis -Has had multiple images and EGDs -Has never been told he has varices -Continue home medication for immunosuppression once able to restart p.o. medication -Ongoing outpatient follow-up after discharge with pain management nurse practitioner History of gout -Restart home probenecid once able to start p.o. medication Hypertension and history of hypertrophic cardiomyopathy: -IV metoprolol 5 every 6 with hold parameters in place -Continue to hold home oral medications -As needed hydralazine is available Metoprolol resumed. History of arthritis -Patient denies ever using NSAIDs -As needed Tylenol if needed DVT prophylaxis -SCDs -Chemoprophylaxis contraindicated due to GI bleeding CODE STATUS -Full code Discharge medication reconciliation done. Discharge follow-up instructions completed. Discharge process discussed with the patient and all questions were answered to patient's satisfaction. Follow with PCP in 1 to 2 weeks Total time spent, exact 35 minutes on discharge meds reconciliation, examination, coordination of care with nurses and ancillary staff, review of imaging and blood test and discussion with the patient on follow-up instructions. Medications at Discharge Home Medications clonidine HCl 0.1 mg tablet 1.5 tab PO BID 08/20/19 tacrolimus 1 mg capsule, immediate-release 1 mg PO BID supplement 08/20/19 amlodipine 5 mg tablet 5 mg PO DAILY blood pressure 03/27/23 metoprolol succinate 100 mg tablet,extended release 24 hr 100 mg PO Q12H heart 03/27/23 mycophenolate mofetil 500 mg tablet (CellCept) 500 mg PO BID organ rejection 03/27/23 probenecid 500 mg tablet 500 mg PO BID gout 03/27/23 pantoprazole 40 mg tablet,delayed release (Protonix) 40 mg PO BID #60 tabs 03/29/23 Physical Exam Narrative Seen and examined. Patient is tolerating clear to full liquid. Diet advance to soft diet. No acute abdominal pain. Had last BM 2 days ago. Physical exam: General: Alert, Oriented x3, Cooperative HEENT: Pale conjunctiva. Atraumatic, PERRLA, EOMI, Normocephalic Oral: No Gingival or Mucosal Lesions/ Ulcerations Neck: Supple, No JVD, Negative Carotid Bruits Lungs: Air entry diminished in bilateral lung bases. No crepitation/rhonchi Cardiovascular: Regular rate, Regular Rhythm, Normal S1, Normal S2, systolic murmur over right second ICS. No radiation to carotids. Abdomen: Bowel Sounds Present, Soft, Non Tender, Non-Distended. Liver not enlarged. : No renal angle tenderness. No suprapubic tenderness. Extremities: No edema, Capillary Refill Less than 3 Seconds Skin: No rashes, No breakdown Musculoskeletal: No Tenderness to Palpation of Joints or Extremities Neurological: Cranial nerves II-XII grossly intact, DTR 2+/4. No acute focal neurological deficit. Psych/Mental Status: Normal Affect, Appropriate. Weight / BMI Weight Weight: 173 lb 1.006 oz Body Mass Index (BMI) 23.4 ABG / Lab / Microbiology Data 03/29/23 06:00 03/29/23 06:00 Laboratory: Laboratory Results - last 24 hr 03/28/23 05:08: Diff Path Review Reviewed 03/28/23 13:44: Hgb 8.5 L 03/28/23 17:30: Hgb 9.0 L 03/29/23 06:00: WBC 4.6, RBC 2.97 L, Hgb 9.3 L, Hct 28.4 L, MCV 95.6 H, MCH 31.3, MCHC 32.7, RDW Std Deviation 47.8 H, RDW Coeff of Donna 13.9, Plt Count 56 L, MPV 13.7 H, Immature Gran % (Auto) 0.200, Neut % (Auto) 56.3, Lymph % (Auto) 30.5, [place] % (Auto) 8.9, Eos % (Auto) 3.7, Baso % (Auto) 0.4, Absolute Neuts (auto) 2.6, Absolute Lymphs (auto) 1.40, Nucleated RBC % 0, Platelet Estimate MKD DEC, Sodium 139, Potassium 3.9, Chloride 110 H, Carbon Dioxide 25.0, Anion Gap 4 L, BUN 21 H, Creatinine 1.47 H, Estim Creat Clear Calc 48.39, Est GFR (MDRD) Af Amer 60, Est GFR (MDRD) Non-Af 50 L, BUN/Creatinine Ratio 14.3, Glucose 138 H, Calcium 8.2 L Microbiology: Microbiology 03/26/23 22:19 Stool Stool Lactoferrin - Final 03/26/23 22:19 Stool Enteric Bacteriology - Final D/C Instructions Discharge Diet: Light diet - advance as tolerated (For 5 days) Weight Bearing Status: Weight bearing as tolerated Call your doctor if you observe: Fever of 101 or Higher, Coldness, Increased Pain, Numbness or Tingling, Change in Color, Inability to urinate, Inability to have a bowel movement, Shortness of breath, Dizziness, Fainting spells, Swelling in the ankles, Chest pain, Prolonged hiccupping, Increased palpitations (irregular heartbeat) and Calf discomfort When: IN 2 WEEKS Meaningful Use Info Meaningful Use Diagnoses (Choose all that apply): None applicable Discharge Plan Admission Admit Date/Time: 03/26/23 22:53 Primary Reason for Your Visit: Acute upper GI bleed Attending Provider: Syed Salazar Primary Care Provider: Flako Ornelas Consulting Providers: Noah Sharma; Roselia Santos; Noah Jernigan Instructions Additional Instructions / Restrictions: Follow-up with Dr. Bear, [facility] pain management nurse practitioner in 1 month. Advised serum tacrolimus level, CBC and BMP in 1 week and follow with PCP. Discharge Orders/Prescriptions Prescriptions: New pantoprazole [Protonix] 40 mg tablet,delayed release (DR/EC) 40 mg PO BID Qty: 60 2RF Rx Instructions: advised TWICE DAILY FOR 2 months THEN ONCE DAILY Continued clonidine HCl 0.1 MG tablet 1.5 tab PO BID tacrolimus 1 MG capsule 1 mg PO BID amlodipine 5 mg tablet 5 mg PO DAILY probenecid 500 mg tablet 500 mg PO BID metoprolol succinate 100 mg tablet extended release 24 hr 100 mg PO Q12H Held mycophenolate mofetil [CellCept] 500 mg tablet 500 mg PO BID Hold Instructions: Hold for 7 days. Follow-up with Dr. Bear. Discontinued Metoprolol Succinate 100 mg PO BID omeprazole 20 MG capsule 20 mg PO BID Referrals / Follow Up: Flako Ornelas MD [Primary Care Provider] - Within 2 Weeks Disposition Disposition (needs filled in before D/C Order can be placed): Home, Self Care Charges/Coding Visit Charges Inpatient E&M: 13850 Disch Hosp >30min
--- NOTE | 2023-03-29 14:01 | CASEMGMT ---
Patient has order for discharge. RN CM in to discuss needs at discharge. Patient denies needs at discharge. Patient had no further questions or concerns at this time.
--- NOTE | 2023-03-29 14:20 | PHA.DC.MC.R ---
Pharmacy [facility] has performed discharge medication reconciliation and counseling for this patient. 1. PANTOPRAZOLE 40MG PO BID X 2 MONTHS, THEN DAILY THEREAFTER The patient's discharge medication list was reviewed for discrepancies and discrepancies were resolved. The patient was counseled on the following discharge medications and changes in medications for homegoing were reviewed. The Reason for Use, instructions for use, and potential side effects were reviewed for all new medications. The patient's questions regarding all of their medications were answered. The patient was able to verbally demonstrate an understanding of their discharge medications. Medications at Discharge Home Medications clonidine HCl 0.1 mg tablet 1.5 tab PO BID 08/20/19 tacrolimus 1 mg capsule, immediate-release 1 mg PO BID supplement 08/20/19 amlodipine 5 mg tablet 5 mg PO DAILY blood pressure 03/27/23 metoprolol succinate 100 mg tablet,extended release 24 hr 100 mg PO Q12H heart 03/27/23 mycophenolate mofetil 500 mg tablet (CellCept) 500 mg PO BID organ rejection 03/27/23 probenecid 500 mg tablet 500 mg PO BID gout 03/27/23 pantoprazole 40 mg tablet,delayed release (Protonix) 40 mg PO BID #60 tabs 03/29/23
--- NOTE | 2023-03-29 15:13 | NURSING ---
discharge instructions given and reviewed with pt. PIVS removed. Waiting on transport.
== END 2023-03-29 15:30 | disposition home or self-care (01) | DRG 369 ==
LOC: ED 21:26 → PCU 22:57
PROVIDERS: Internal Medicine; Internal Medicine Gastroenterology; Admitting Provider Internal Medicine; Emergency Provider Emergency Medicine; PCP Family Medicine; Visit Provider Internal Medicine
PROC: 0DJ08ZZ Inspection of Upper Intestinal Tract, Via Natural or Artificial Opening Endoscopic (ICD-10-PCS; CPT 43235; principal; 2023-03-27 12:45)
DX: I85.01 Esophageal varices with bleeding (principal); D62 Acute posthemorrhagic anemia; I42.2 Other hypertrophic cardiomyopathy; D69.6 Thrombocytopenia, unspecified; K75.4 Autoimmune hepatitis; N18.31 Chronic kidney disease, stage 3a; I12.9 Hypertensive chronic kidney disease with stage 1 through stage 4 chronic kidney disease, or unspecified chronic kidney disease; K21.9 Gastro-esophageal reflux disease without esophagitis; M10.9 Gout, unspecified; Z79.899 Other long term (current) drug therapy; Z87.11 Personal history of peptic ulcer disease; Z79.620 Long term (current) use of immunosuppressive biologic; Z87.891 Personal history of nicotine dependence
CPT/HCPCS: 36415; 80048; 80053; 81001; 83630; 83735; 84100; 84443; 85018; 85025; 85610; 86850; 86900; 86901; 87506; 93005; 94668; 99284; J7030; A4216; J2405; J3490

== ENCOUNTER → 2024-04-14 | Outpatient (CLI) | payer MEDICARE, OTHER, SELFPAY ==
[2024-04-20 15:07] LABS: Immunoglobulin A 474 mg/dL (61-437); Immunoglobulin G 1840 mg/dL (603-1613); Immunoglobulin M 104 mg/dL (15-143)
== END | disposition home or self-care (01) ==
PROVIDERS: PCP Family Medicine
DX: N18.31 Chronic kidney disease, stage 3a (principal)
CPT/HCPCS: 36415; 82595; 82784; 86334

== ENCOUNTER 2024-08-06 22:40 | Emergency (ER) | payer MEDICARE, OTHER, SELFPAY ==
[2024-08-06 22:41] VITALS: BP 174/85; PULSE 68; RESP 18; TEMP 36.6; O2SAT 96
[2024-08-06 22:53] VITALS: BMI 25.2
[2024-08-06] MEDS: Morphine 4 MG/ML Syringe IM (22:59)
[2024-08-06] MEDS: cycloBENZAPRine HCl 5 MG TABLET PO (23:03)
[2024-08-06 23:04] VITALS: BP 153/89; PULSE 67; RESP 18; TEMP 36.8; O2SAT 94
--- NOTE | 2024-08-06 23:48 | EDS_ITS ---
HPI History of Present Illness Chief Complaint: Other, Pain/Inj Narrative Narrative: Chief complaint and HPI: 74-year-old male with past medical history of GERD, autoimmune hepatitis, cardiomyopathy presents for evaluation of right-sided neck pain. Patient states that he golfed yesterday which has not abnormal for him. He states he woke up this morning with right-sided neck pain. Pain goes into the upper trapezius distribution as well. He denies any trauma. Denies any neurological deficits, weakness, numbness/tingling. Patient has tried ice and heat with little relief. He denies any fever, chills, shortness of breath, chest pain. He has not tried Tylenol or ibuprofen as he states he is not allowed to take this. Review of systems: See HPI Medications: As listed on the chart Allergies: As listed on the chart PFSH: Per chart Vital signs: As listed on the chart. Reviewed. Physical exam: Gen: A&O x3, NAD Head: Normocephalic, atraumatic Eyes: No sclera icterus, conjunctiva clear, PERRL, EOMI ENT: Moist mucous membrane Neck: Trachea midline, No JVD, no midline spinal tenderness, no bony step-offs, tender to palpation in the paraspinal musculature of the cervical spine on the right as well as into the trapezius muscle-reproduces his pain, no rash CV: RRR, no murmurs Resp: Lungs CTA BL, no w/r/c Musc: Full ROM, no deformity, no spinal TTP, no ezekiel step-offs, bilateral radial pulses +2 Skin: Warm, dry, intact Neuro: Alert, oriented, grossly intact, sensation intact Psych: Cooperative, appropriate mood and affect [facility] Medical History (Updated 08/06/24 @ 23:[address] Hay Rodríguez, DO) Portal vein thrombosis Esophageal varices GERD (gastroesophageal reflux disease) HTN (hypertension) Hypertrophic cardiomyopathy Autoimmune hepatitis History of immunosuppression therapy Thrombocytopenia Home Medications ?Medication ?Instructions ?Recorded ?Last Taken ?Type clonidine HCl 0.1 mg tablet 1.5 tab PO BID 08/20/19 Un known History tacrolimus 1 mg capsule, 1 mg PO BID supplement 08/19 Unknown History immediate-release amlodipine 5 mg tablet 5 mg PO DAILY blood pressure 03/27/23 Unknown History metoprolol succinate 100 mg 100 mg PO Q12H heart 03/27 Unknown History tablet,extended release 24 hr mycophenolate mofetil 500 mg 500 mg PO BID organ rejec tion 03/27/23 Unknown Hist ory tablet (CellCept) Held on 03/29/23. Instructions: Hold for 7 days. Follow-up with Dr. Bear. probenecid 500 mg tablet 500 mg PO BID gout 03/27/23 Unknown History pantoprazole 40 mg tablet,delayed 40 mg PO BID #60 tab s 03/29/23 Unknown Rx release (Protonix) cyclobenzaprine 5 mg tablet 5 mg PO TID PRN muscle spa sm 3 08/06/24 Unknown Rx days #9 tabs Allergy/AdvReac Type Severity Reaction Status Date / Time acetaminophen (From Vicodin) Allergy Anaphylaxis Verified 03/27/23 17:55 hydrocodone (From Vicodin) Allergy Anaphylaxis Verified 03/27/23 17:55 lidocaine Allergy Rash Verified 08/06/24 22:41 NSAIDS (Non-Steroidal Allergy Other Verified 08/06/24 22:44 Anti-Inflamma oxycodone Allergy Anaphylaxis Verified 08/06/24 22:44 Social History Smoking Status: Former smoker EXAM Physical Exam Const Vital Signs: 08/06/24 22:41 08/06/24 22:53 08/06/24 23:04 Temperature 97.9 F 98.2 F Temperature Source Temporal Pulse Rate 68 67 Respiratory Rate 18 18 Respiratory Effort Normal Non-Labored Respiratory Pattern Normal Blood Pressure 174/85 H 153/89 H Blood Pressure Mean 114 110 Pulse Ox 96 94 Oxygen Delivery Method Room Air MDM MDM MDM Narrative Medical decision making narrative: 74-year-old male with past medical history of GERD, autoimmune hepatitis, cardiomyopathy presents for evaluation of right-sided neck pain. Denies any trauma. Did golf yesterday. Woke up with the pain today. See physical exam findings. Based on physical exam, I suspect that this is a muscle spasm. Patient has had no trauma to suspect cervical fracture. No infectious symptoms. I do not think any imaging or laboratory workup is needed. Patient states that he is not allowed to have Tylenol or ibuprofen. He states that he cannot take any narcotic except for morphine. IM morphine ordered with muscle relaxer, Flexeril. On reevaluation, patient's pain has improved. Originally was severe and now a 3 out of 10. Patient stable to discharge home. Told to follow-up with PCP. Recommended activity as tolerated. Gentle stretching. Heating pad as needed. Will give a prescription for muscle relaxers. He was educated on the risks and benefits to muscle relaxers. Patient asked for narcotic prescription however at this time I do not think this is appropriate and therefore I educated the patient that this will not be prescribed. He confirmed understanding. Impression: 1. Right neck spasm Discharge Plan Triage Chief Complaint: Other, Pain/Inj ED Provider: Hay Rodríguez Dx/Rx/DC Orders Clinical Impression: Muscle spasms of neck Instructions: ED Muscle Spasm, ED Neck Spasm, No Trauma Prescriptions: New cyclobenzaprine 5 mg tablet 5 mg PO TID PRN (Reason: muscle spasm) 3 Days Qty: 9 0RF No Action clonidine HCl 0.1 MG tablet 1.5 tab PO BID tacrolimus 1 MG capsule 1 mg PO BID amlodipine 5 mg tablet 5 mg PO DAILY probenecid 500 mg tablet 500 mg PO BID mycophenolate mofetil [CellCept] 500 mg tablet 500 mg PO BID metoprolol succinate 100 mg tablet extended release 24 hr 100 mg PO Q12H pantoprazole [Protonix] 40 mg tablet,delayed release (DR/EC) 40 mg PO BID Qty: 60 2RF Rx Instructions: advised TWICE DAILY FOR 2 months THEN ONCE DAILY Primary Care Provider: Flako Ornelas Referrals: Flako Ornelas MD [Primary Care Provider] - 3-5 Days Activity Restrictions/Additional Instructions: Follow-up with primary care physician. Muscle relaxers as needed for pain. You received a muscle relaxer here in the emergency department. No muscle relaxer for 8 hours. As relaxers can increase falls, cause lightheadedness, weakness, fatigue. Do not drive or operate heavy machinery while taking these. Recommend gentle stretching and heat. Activity as tolerated. Print Language: Monegasque Disposition Disposition: Home, Self Care Discharge Date/Time: 08/06/24 23:44
== END 2024-08-06 23:44 | disposition home or self-care (01) ==
PROVIDERS: Emergency Provider Surgery; PCP Family Medicine; Visit Provider Surgery
DX: M62.838 Other muscle spasm (principal); Z87.891 Personal history of nicotine dependence
CPT/HCPCS: 96372; 99282

== ENCOUNTER 2024-08-29 14:00 | Outpatient (RCR) | payer MEDICARE, OTHER, SELFPAY ==
--- NOTE | 2024-08-21 15:04 | HP.PTEVAL ---
Patient's Visit Information Visit Information Visit Information: PARKER YI is a 74 year old M referred to Physical Therapy by VERO Hall with a diagnosis of Neck pain. Date of Evaluation: 08/21/24 Physical Therapist: Naif Damian, PT, ATC Visit Plan Frequency: 1x/Week Duration: 1 Week Plan: Pt was issued cervical spine protraction ex's for a HEP. Follow up in 1 week to assess benefit. Add DTR and mobs if needed for pain. Subjective Subjective: Pt reports he has had neck pain for approximately 2 weeks. Pt reports he woke up one morning with severe pain. Pt denies any prior Hx of neck pain. Pt reports the pain has lessened some since the initial episode, but he continues to have difficulty with turning his head. Pt denies any tingling or numbness in his UE's this date. Pt denies sleep difficulty at this time, although he did have to sleep in a recliner when the pain first started. Pt reports he had xrays which revealed no significant findings. Pt reports he has seen a chiropractor which has not made any difference at this time. Pt reports turning his head to the right is what causes him the most pain. 1/10 pain while sitting here in the clinic, 8/10 pain at worst. Pain Neck pain: Pain Intensity (Out of 10): 1 Pain Intensity Range: 8 Objective Objective: Neuro: B UE sensation is WNL to light touch. Palpation: Pt has significant muscle guarding [id number] cervical spine. No deformities noted. MMT: B UE's are equal and strong throughout ROM: Pt is moderately limited with B sidebend, extension, and R rotation. Pt is minimally limited with retraction Repeated movements: RRIS 10x1 significant increase in pain. 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 For Medicare and Medicare HMO plans, please review the plan of care and approve it. It will need to be FAXED BACK to us at [phone] for Medicare purposes. For Medicare only, by signing this I certify the plan of care. Please let me know if there are questions or concerns regarding this plan of care. Physician Signature: Date:
--- NOTE | 2024-09-26 14:35 | HP.PTDCSUM ---
Discharge Summary D/C summary: It has been my pleasure to treat PARKER YI referred by Obdulia Martínez NP-C, with the diagnosis of Neck pain for a total of 3 visit(s). Discharge Date: Please see the following information for a summary of their discharge status. Subjective Subjective: Pt reports he feels stronger overall, and is Pleased with his progress with every aspect but pain. Pt notes no change in his R neck pain Pain Neck pain: Pain Intensity (Out of 10): 4 Objective Objective/Function: Pt is still very limited with B cervical spine rotation. Pain has remained the same Goals Goal 1:: I with HEP in one week Goal Progress: Goal Met Goal 2:: Decrease neck pain x 50% to aid with IADL's Goal Progress: Not Progressing Goal 3:: Increase R c/s rotation to within normal limits to aid with IADL's Goal Progress: Not Progressing Plan Plan: Discontinue Rx at this time and return to doctor D/C Information d/c sentence: If there are questions or concerns regarding this patient's physical therapy, please feel free to call me at [phone]. Thank you for the referral of this patient. Sincerely, Naif Damian, PT, ATC
== END 2024-08-29 19:00 | disposition home or self-care (01) ==
LOC: PT 14:00
PROVIDERS: PCP Family Medicine; Referring Provider Registered Nurse; Visit Provider Registered Nurse
DX: M54.2 Cervicalgia (principal)
CPT/HCPCS: 97110; 97161

== ENCOUNTER 2024-11-03 12:30 | Outpatient (RCR) | payer MEDICARE, OTHER, SELFPAY ==
--- NOTE | 2024-10-23 17:00 | HP.PTEVAL_ITS ---
Patient's Visit Information Visit Information Visit Information: PARKER YI is a 74 year old M referred to Physical Therapy by VERO Hall with a diagnosis of L knee pain. Date of Evaluation: 10/23/24 Physical Therapist: Naif Damian, PT, ATC Visit Plan Frequency: 1x/Week Duration: 1 Week Plan: Issue and instruct pt on a gym strengthening routine on his next visit. Also issue HEP for core strengthening. Follow up then in one month. Subjective Subjective: Pt reports he has had L knee pain for a chronic time period. 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 Pt reports he has had xrays on his R knee which revealed OA, but has not had any tests on his L knee. Pt notes his pain is the worst when he sits still for a long period of time. Pt notes he has sleep difficulty secondary to pain that he has to manage. Pt reports both of his knees will crack when he attempts to stand up form a seated position. pt denies his L knee giving out or locking up on him. Pt notes he is here to get a program of exercises that he can to at home. 1/10 pain at rest, 4/10 at worst. Pain L knee pain: Pain Intensity (Out of 10): 1 Pain Intensity Range: 4 Objective Objective: Neuro: B LE sensation is WNL to light touch Palpation: Pt has tenderness on medial aspect of L knee. Pt also has significant crepitus with AROM ROM: L knee 0-4-130 degrees ; R knee 0-4-130 degrees MMT: L knee flex= 39 , ext= 42 #F; R knee flex= 46, ext= 52 #F Goals Goal 1:: I with HEP Goal Time Frame: 2-4 Weeks Rehabilitation Potential Physical Therapy Diagnosis: Pt has L knee pain and weakness secondary to degenerative changes in the L kne Rehabilitation Potential: Good Anticipated Interventions Patient/Client Instruction: Educate patient on: Condition and Plan of Care For the Purpose of:: To improve self management Therapeutic Exercise to Include: Strength training, Endurance training, Balance training, Flexibilty training and Dynamic Lumbar Stabilization For the Purpose of:: To decrease pain and To improve muscle performance and motor function Cryotherapy (ice pack, ice massage): Yes For the Purpose of:: To decrease pain Text: Thank you for the opportunity to evaluate your patient. For Medicare and Medicare HMO plans, please review the plan of care and approve it. It will need to be FAXED BACK to us at [phone] for Medicare purposes. For Medicare only, by signing this I certify the plan of care. Please let me know if there are questions or concerns regarding this plan of care. Physician Signature: Date:
--- NOTE | 2024-12-26 10:59 | HP.PT.NRP ---
Patient Information Patient Information: PARKER YI was seen in my office for initial evaluation on 10/23/24. The following Plan of Care was established for this patient: POC Established Initial Frequency: 1x/Week Initial Duration: 1 Week Anticipated Interventions Patient/Client Instruction: Educate patient on: Condition and Plan of Care For the Purpose of:: To improve self management Therapeutic Exercise to Include: Strength training, Endurance training, Balance training, Flexibilty training and Dynamic Lumbar Stabilization For the Purpose of:: To decrease pain and To improve muscle performance and motor function Cryotherapy (ice pack, ice massage): Yes For the Purpose of:: To decrease pain Last Seen Last Seen: This patient was last seen in our office . Pertinent comments regarding their Physical therapy will appear below: Pt has not returned for greater than 30 days and is discontinued at this time. At this point I will be discontinuing this patient from physical therapy. I would be happy to see this patient again in the future if found appropriate by the physician. Thank you! Naif Damian, PT, ATC
== END 2024-11-03 19:00 | disposition home or self-care (01) ==
LOC: PT 12:30
PROVIDERS: PCP Family Medicine; Referring Provider Registered Nurse; Visit Provider Registered Nurse
DX: M25.562 Pain in left knee (principal)
CPT/HCPCS: 97110; 97161

== ENCOUNTER 2025-01-05 20:16 | Emergency (ER) | payer MEDICARE, OTHER, SELFPAY ==
[2025-01-05 20:17] VITALS: BP 133/74; PULSE 67; RESP 18; TEMP 37.3; O2SAT 96
--- OUTSIDE RECORDS SUMMARY | 2025-01-05 22:22 | XMS RPT_ITS | CCD ---
Author Organization [facility] CliniSyla Care Team Providers Care Staffing Branch Manager Name Role Phone WILL FAN Unavailable Unavailable CEBUL, GRAY Unavailable Unavailable CEBUL, GRAY Unavailable Unavailable MENG, WILL Unavailable Unavailable MENG, WILL Unavailable Unavailable CEBUL, GRAY Unavailable Unavailable MENG, WILL E Unavailable Unavailable CEBUL III, GRAY A Unavailable Unavailable Davis May MD Primary Care Provider Kleber KWON, Nova Unavailable Davis May MD Primary Care Provider Kleber KWON, Marelly Unavailable Davis May MD Primary Care Provider Davis May MD Primary Care Provider Kleber KWON, Marelly Unavailable Kleber KWON, Marelly Unavailable Dr. Esteban Renee Emergency Provider Dr. Davis May Primary Care Provider Dr. Bernadette Sharma Admit Provider UnavailDr. Bernadette Abreu Other Provider Unavailabl e Dr. Roselia Santos Other Provider Clemente, Dr. Sanders Attending Provider [phone] Dr. Roselia Santos Attending Provider [phone] Syed Salazar Attending Provider [phone] Dr. Syed Salazar Other Provider [phone] Bernadette Jernigan Other Provider Unavailable Davis May MD Primary Care Provider Chema KWON, Derrek Unavailable Haagen JUDICIAL CLERK.UTILIZATION REVIEWER, Obdulia Unavailable Suppan JUDICIAL CLERK.UTILIZATION REVIEWER, Sanna A Unavailable Denae Coombs RN Unavailable Suppan JUDICIAL CLERK.UTILIZATION REVIEWER, Sanna A Unavailable Suppan JUDICIAL CLERK.UTILIZATION REVIEWER, Sanna A Unavailable [phone] LORA THOMAS Attending Unavailable DAVIS MAY Referring Unavailable DAVIS MAY Primary Care Unavailable Denae Coombs RN Unavailable Leonarda FAUSTIN, Riddhi Unavailable Unavailable Don FAUSTIN, Jaycee Vega Unavailable Unavail able Leonarda FAUSTIN, Riddhi Unavailable Unavailable Yadira KWON, Dr. Arriola Primary Care Provider NATHAN RUTH Attending Provider [phone] Hay Rodríguez DO Emergency Provider Sandro KWON, Lana Gray Unavailable Kristin FAUSTIN, Breann Cottrell Unavailable Dr. Davis May MD Primary Care Provider Dr. Hay Rodríguez DO Attending Provider Mauricio ENAMEL DRIER-C, Obdulia Attending Provider Mauricio ENAMEL DRIER-C, Obdulia Referring Provider PRABHU TYLER Attending Unavailable PRABHU TYLER Admitting Unavailable DAVIS MAY Primary Care Unavailable DAVIS MAY Primary Care Unavailable JOSE LANDRY Attending Unavailable JOSE LANDRY Referring Unavailable DAVIS MAY Primary Care Unavailable YOLANDA, LISETH Referring Unavailable SHERMAN BRAR Attending Unavailable DAVIS MAY Primary Care Unavailable DAVIS MAY Attending Unavailable DAVIS MAY Primary Care Unavailable SELF Referring Unavailable DAVIS MAY Primary Care Unavailable OBDULIA MARTÍNEZ Referring Unavailable YOLANDA, LISETH Referring Unavailable DAVIS MAY Primary Care Unavailable ANJALI FONG Attending Unavailable DAVIS MAY Primary Care Unavailable O'SERRANOJUAN Attending Unavailable Deven'SERRANOJUAN Cottrell Admitting Unavailable YADIRA, DAVIS Tavares Primary Care Unavailable BOBBY OWUSU Attending Unavailable YADIRA, DAVIS J Referring Unavailable YADIRA, DAVIS Tavares Primary Care Unavailable JOSE LANDRY Referring Unavailable YADIRA, DAVIS Tavares Primary Care Unavailable YADIRA, DAVIS Tavares Referring Unavailable JOSE LANDRY Attending Unavailable YADIRA, DAVIS Tavares Primary Care Unavailable YOLANDA, LISETH Referring Unavailable YADIRA, DAVIS Tavares Primary Care Unavailable EVELIN REICH Referring Unavailable YADIRA, DAVIS Tavares Primary Care Unavailable YADIRA, DAVIS Tavares Primary Care Unavailable YUSRA, NATHAN Referring Unavailable YADIRA, DAVIS Tavares Primary Care Unavailable OBDULIA MARTÍNEZ Attending Unavailable YADIRA, DAVIS Tavares Primary Care Unavailable PRABHU TYLER Attending Unavailable OBDULIA MARTÍNEZ Referring Unavailable YUSRA, NATHAN Referring Unavailable YADIRA, DAVIS Tavares Primary Care Unavailable YADIRA, DAVIS Tavares Primary Care Unavailable BEVERLY DIAZ Attending Unavailable O'MAGGIE, JUAN S Referring Unavailable YOLANDA, LISETH Referring Unavailable YADIRA, DAVIS Tavares Primary Care Unavailable DERREK BEAR Referring Unavailable YADIRA, DAVIS Tavares Primary Care Unavailable YADIRA, DAVIS Tavares Primary Care Unavailable UYSRA, NATHAN Attending Unavailable SELF Referring Unavailable YADIRA, DAVIS Tavares Primary Care Unavailable SELF Referring Unavailable GLENDY AYALA Attending Unavailabl e YADIRA, DAVIS Tavares Primary Care Unavailable SANNA LARSEN Attending Unavailable YADIRA, DAVIS Tavares Primary Care Unavailable YUSRA, NATHAN Referring Unavailable YADIRA, DAVIS Tavares Primary Care Unavailable NOVA SHAHID Referring Unavailable YADIRA, DAVIS Tavares Primary Care Unavailable SURY MATHIAS Attending Unavailable KELLEY FREGOSO Attending Unavailable YADIRA, DAVIS Tavares Primary Care Unavailable ANJALI FONG Attending Unavailable YADIRA, DAVIS Tavares Primary Care Unavailable YADIRA, DAVIS Tavares Primary Care Unavailable LISETH ORTIZ Attending Unavailable YADIRA, DAVIS Tavares Primary Care Unavailable YOLANDA, LISETH Referring Unavailable YADIRA, DAVIS Tavares Primary Care Unavailable MARCOS FARRELL Attending Unavailable YAIDRA, DAVIS Tavares Primary Care Unavailable YADIRA, DAVIS Tavares Attending Unavailable YADIRA, DAVIS Tavares Primary Care Unavailable YOLANDA, LISETH Referring Unavailable YADIRA, DAVIS Tavares Primary Care Unavailable OBDULIA MARTÍNEZ Referring Unavailable YADIRA, DAVIS Tavares Primary Care Unavailable SELF Referring Unavailable YADIRA, DAVIS J Primary Care Unavailable MAZBHAKTINI, LISETH Referring Unavailable LANA JO Attending Unavailable YADIRA, DAVIS Tavares Primary Care Unavailable STEVAN THOMAS Referring Unavailable YADIRA, DAVIS J Primary Care Unavailable ANGELINE PFEIFFER Attending Unavailable YADIRA, DAVIS J Primary Care Unavailable YADIRA, DAVIS J Referring Unavailable YADIRA, DAVIS J Primary Care Unavailable ANNI, LISETH Referring Unavailable YADIRA, DAVIS J Primary Care Unavailable JUAN WILSON Referring Unavailable JOSE LANDRY Attending Unavailable YADIRA, DAVIS J Primary Care Unavailable MARCOS FARRELL Attending Unavailable YADIRA, DAVIS J Primary Care Unavailable YADIRA, DAVIS J Attending Unavailable YADIRA, DAVIS J Primary Care Unavailable NATHAN RUTH Referring Unavailable YADIRA, DAVIS J Primary Care Unavailable MAZBHAKTINI, LISETH Referring Unavailable YADRIA, DAVIS J Primary Care Unavailable BERNADETTE MUNGUIA Attending Unavailable BERNADETTE MUNGUIA Referring Unavailable YADIRA, DAVIS J Primary Care Unavailable ANNI, LISETH Referring Unavailable YADIRA, DAVIS J Primary Care Unavailable EVELIN REICH Attending Unavailable YADIRA, DAVIS J Primary Care Unavailable OBDULIA MARTÍNEZ Attending Unavailable YADIRA, DAVIS Tavares Primary Care Unavailable YADIRA, DAVIS J Attending Unavailable STEVAN THOMAS Attending Unavailable YADIRA, DAVIS Tavares Primary Care Unavailable SELF Referring Unavailable MAZZONI, LISETH Referring Unavailable YADIRA, DAVIS J Primary Care Unavailable YADIRA, DAVIS J Primary Care Unavailable YOLANDA, LISETH Attending Unavailable YADIRA, DAVIS Tavares Primary Care Unavailable YOLANDA, LISETH Referring Unavailable YADIRA, DAVIS J Referring Unavailable YADIRA, DAVIS Tavares Primary Care Unavailable YADIRA, DAVIS J Primary Care Unavailable YUSRA, NATHAN Referring Unavailable JANELLE, Tremayne Attending Unavailable Yadira, Davis Primary Care Unavailable Obdulia Martínez Referring Unavailable [place], Davis Primary Care Unavailable Obdulia Marítnez Attending Unavailable Hay Rodríguez Attending Unavailabl e Yadira, Davis Primary Care Unavailable Obdulia Martínez Referring Unavailable Yadira, Davis Primary Care Unavailable Obdulia Martínez Attending Unavailable Allergies Allergy Classification Reported Allergen(s) Allergy Type Date of Onset Reaction(s) Facility Acetaminophen / HYDROcodone (3 sources) Acetaminophen / HYDROcodone Drug Allergy 7 Anaphylaxis [facility] Acetaminophen / oxyCODONE (3 sources) Acetaminophen / oxyCODONE Drug Allergy 8 Other: See Comments [facility] Angiotensin 2 Receptor Blockers (ARB) (3 sources) valsartan Drug Allergy 8 Myalgia [facility] (20 sources) acetaminophen / HYDROcodone; Translations: [HYDROCODONE-ACET AMINOPHEN] Drug Allergy 7 Anaphylaxis [facility] Repository (20 sources) valsartan; Translations: [VALSARTAN] Drug Allergy 8 Intolerance, Myalgia [facility] Repository (20 sources) Acetaminophen / oxyCODONE; Translations: [OXYCODONE-ACETAM INOPHEN] Drug Allergy 8 Shortness of Breath, Other: See Comments [facility] (20 sources) Hibiscus; Translations: [HIBISCUS] Drug Allergy 1 Hives, Shortness of Breath [facility] (9 sources) Acetaminophen; Translations: [ACETAMINOPHEN] Drug [facility] (5 sources) HYDROcodone Drug Allergy 0 Anaphylaxis [facility] Comment on above: PATIENT CAN TOLERATE MORPHINE- HAS HAD IN PAST WITHOUT ISSUE PER PT (20 sources) Lidocaine; Translations: [LIDOCAINE] Drug Allergy 4 Other: See Comments [facility] (2 sources) Nonsteroidal Anti-inflammatory Compounds Allergy to substance 5 Other [facility] Comment on above: hx autoimmune hepati tis (2 sources) oxyCODONE Drug Allergy 5 Anaphylaxis [facility] (20 sources) Hibiscus (Hibiscus Sabdariffa); Translations: [HIBISCUS (HIBISCUS SABDARIFFA)] Drug Allergy 1 Hives, Shortness of Breath [facility] (4 sources) NSAIDs; Translations: [NSAIDS (NON-STEROIDAL ANTI-INFLAMMATORY DRUG)] Propensity to adverse reactions to drug (disorder) 5 [facility]indicati [facility] Other [facility] (1 source) Acetaminophen Drug Allergy 4 [facility] Repository (1 source) HYDROcodone Drug Allergy 4 [facility] Repository (1 source) Lidocaine Drug Allergy 5 [facility] Repository (1 source) NSAIDs Drug allergy (disorder) 5 [facility] Repository (1 source) oxyCODONE Drug Allergy 5 [facility] Repository Medications Current Medications Medication Drug Class(es) Dates Sig (Normalized) Sig (Original) amLODIPine 5 mg oral tablet (20 sources) Dihydropyridine Calcium Channel David Start: 04-24-2021 End: 06-01-2024 take 1 tablet by mouth once daily amLODIPine (NORVASC) 5 mg tablet Take 1 tablet by mouth once daily. 90 tablet 1 06/02/2024 Active Comment on above: Take 1 tablet by silas th once daily. amoxicillin 500 mg oral tablet (20 sources) Penicillin-class Antibacterial Start: 08-31-2022 Amoxicillin 500 mg tablet Indications: Prophylactic antibiotic 2000 mg by mouth 1-2 hours prior to dental procedures 16 tablet 08/31/2022 Active Start: 12-01-2019 End: 03-08-2022 Amoxicillin 500 mg tablet In dications: Prophylactic antibiotic 2000 mg by mouth 1-2 hours prior to dental procedures 16 tablet 0 03/09/2022 Active Comment on above: 2000 mg by mouth 1-2 hours prior to dental procedures apixaban 5 mg oral tablet (20 sources) Factor Xa Inhibitor Start: 04-24-2024 End: 11-13-2025 take 1 tablet by mouth twice daily apixaban (ELIQUIS) 5 mg tab(s) Indications: Portal vein thrombosis Take 1 tablet by mouth two times a day. 60 tablet 11 11/13/2024 11/13/2025 Active Start: 03-31-2024 End: 10-03-2024 take 2 tablets by mouth twice daily, then take 1 tablet by mouth twice daily apixaban (ELIQUIS) 5 mg tab(s) Take 2 tablets by mouth two times a day for 6 days, THEN 1 tablet two times a day. 384 tablet 03/31/2024 04/24/2024 Discontinued (Dosage adjustment) avatrombopag 20 mg oral tablet (20 sources) Start: 07-12-2024 End: 10-13-2025 take 1 tablet by mouth once avatrombopag (DOPTELET, 30 TAB PACK,) 20 mg tablets Indications: Chronic ITP (idiopathic thrombocytopenia) (HCC) Take 1 tablet (20mg) by mouth every Wednesday, Wednesday, and Wednesday. 12 tablet 11 07/12/2024 07/12/2025 Active Blood-Glucose Sensor (DEXCOM G7 SENSOR) wilmer (20 sources) Start: 07-05-2024 Blood-Glucose Sensor (DEXCOM G7 SENSOR) wilmer CHANGE SENSOR EVERY 10 days. USE FOR CONTINOUS GLUCOSE MONITORING. INSULIN USE. E11.9 9 each 3 07/05/2024 Active Start: 10-20-2023 End: 07-05-2024 Blood-Glucose Sensor (DEXCOM G7 SENSOR) wilmer CHANGE SENSOR EVERY 10 days. USE FOR CONTINOUS GLUCOSE MONITORING. INSULIN USE. E11.9 9 Each 3 10/20/2023 07/05/2024 Discontinued Start: 10-20-2023 Blood-Glucose Sensor (DEXCOM G7 SENSOR) wilmer CHANGE SENSOR EVERY 10 days. USE FOR CONTINOUS GLUCOSE MONITORING. INSULIN USE. E11.9 9 Each 3 10/20/2023 Active Start: 03-24-2023 End: 10-20-2023 Blood-Glucose Sensor (DEXCOM G7 SENSOR) wilmer CHANGE SENSOR EVERY 10 days. USE FOR CONTINOUS GLUCOSE MONITORING. INSULIN USE. E11.9 9 Each 3 03/24/2023 10/20/2023 Discontinued Start: 03-24-2023 Blood-Glucose Sensor (DEXCOM G7 SENSOR) wilmer CHANGE SENSOR EVERY 10 days. USE FOR CONTINOUS GLUCOSE MONITORING. INSULIN USE. E11.9 9 Each 3 03/24/2023 Active Comment on above: CHANGE SENSOR EVERY 10 days. USE FOR CONTINOUS GLUCOSE MONITORING. INSULIN USE. E11.9 carvedilol 12.5 mg oral tablet (20 sources) alpha-Adrenergic David, beta-Adrenergic David Start: End: take 1 tablet by mouth twice daily at mealtime carvedilol (COREG) 12.5 mg tablet Take 1 tablet by mouth two times a day with meals. 60 tablet 5 06/07/2024 Active Start: 02-21-2024 End: 05-21-2024 take 1 tablet by mouth twice daily at mealtime carvedilol (COREG) 12.5 mg tablet TAKE 1 TABLET BY MOUTH TWICE DAILY WITH MEALS 60 tablet 05/15/2024 05/21/2024 Discontinued Start: 09-24-2023 End: 02-19-2024 take 1 tablet by mouth twice daily at mealtime carvedilol (COREG) 12.5 mg tablet Take 1 tablet by mouth two times a day with meals. 60 tablet 12/15/2023 02/19/2024 Discontinued Start: 04-09-2023 End: 08-29-2023 take 1 tablet by mouth twice daily at mealtime carvedilol (COREG) 12.5 mg tablet Take 1 tablet by mouth two times a day with meals. 60 tablet 1 06/07/2023 08/06/2023 Active Comment on above: Take 1 tablet by silas th two times a day with meals. cholecalciferol, vitamin D3, (VITAMIN D3 ORAL) (20 sources) take 1 tablet by mouth three times weekly cholecalciferol, vitamin D3, (VITAMIN D3 ORAL) Take 1 tablet by mouth three times a week. Active take 1 tablet by silas th three times weekly cholecalciferol, vitamin D3, (VITAMIN D3 ORAL) Take 1 tablet by mouth three times a week. 0 Active Comment on above: Take 1 tablet by silas th three times a week. cloNIDine hydrochloride 0.1 mg oral tablet (20 sources) Central alpha-2 Adrenergic Agonist Start: End: take 1 tablet by mouth three times daily cloNIDine HCl (CATAPRES) 0.1 mg tablet Indications: Portal vein thrombosis Take 1 tablet by mouth three times a day. 270 tablet 1 06/07/2024 Active Start: 02-14-2024 take 1.5 tablets by mouth twice daily cloNIDine HCl (CATAPRES) 0.1 mg tablet Indications: Portal vein thrombosis Take 1.5 tablets by mouth two times a day. 270 tablet 1 02/14/2024 Active Start: 11-29-2023 End: 02-11-2024 take 1.5 tablets by mouth twice daily cloNIDine HCl (CATAPRES) 0.1 mg tablet Indications: Portal vein thrombosis Take 1.5 tablets by mouth two times a day. 270 tablet 1 11/29/2023 02/11/2024 Discontinued Start: 04-16-2023 End: 11-27-2023 take 1.5 tablets by mouth twice daily cloNIDine HCl (CATAPRES) 0.1 mg tablet Indications: Portal vein thrombosis Take 1.5 tablets by mouth two times a day. 270 tablet 1 04/16/2023 11/27/2023 Discontinued Start: 06-25-2022 cloNIDine HCl (CATAPRES) 0.1 mg tablet TAKE 1 AND 1/2 TABLETS BY MOUTH TWICE DAILY 270 tablet 3 06/25/2022 Active Start: 08-20-2019 Clonidine Hcl 0.1 MG tablet Active 1.5 {tbl} PO TWICE A DAY August 20, 2019 12:00am Start: 08-20-2019 End: 01-18-2023 take 1.5 tablets by mouth twice daily cloNIDine HCl (CATAPRES) 0.1 mg tablet Take 1.5 tablets by mouth two times a day. 270 tablet 1 01/19/2023 Active Comment on above: Take 1.5 tablets by mouth twice daily. TAKE 1 AND 1/2 TABLE TS BY MOUTH TWICE DAILY Take 1.5 tablets by mouth two times a day. cyclobenzaprine hydrochloride 10 mg oral tablet (20 sources) Muscle Relaxant Start: 08-10-19 take 1 tablet by mouth every eight hours as needed cyclobenzaprine (FLEXERIL) 10 mg tablet Take 1 tablet by mouth three times a day as needed. 40 tablet 08/09/2024 Active Start: 08-06-2024 take 1 tablet by silas th three times daily as needed for muscle spasms Cyclobenzaprine 5 mg tablet Active 5 mg PO THREE TIMES A DAY as needed for muscle spasm 9 3 0 August 06, 2024 12:00am Start: 08-20-2019 End: 03-27-2023 take 1 tablet by mouth three times daily Cyclobenzaprine 10 MG tablet Discontinued 10 mg PO THREE TIMES A DAY August 20, 2019 12:00am March 27, 2023 1:09am doxycycline hyclate 100 mg oral tablet (11 sources) Tetracycline-class Drug Start: 05-30-2024 End: 06-14-2024 take 1 tablet by mouth twice daily doxycycline (VIBRA-TABS) 100 mg tablet Indications: Acute non-recurrent sinusitis, unspecified location , Acute bronchitis, unspecified organism Take 1 tablet by mouth two times a day for 5 days. 10 tablet 06/09/2024 06/14/2024 Active fluorouracil 50 mg/ml topical cream (20 sources) Nucleoside Metabolic Inhibitor Start: 05-11-2024 Fluorouracil (EFUDEX) 5 % cream Indications: Actinic keratosis Apply thin coat twice daily (morning and evening) for 2-4 weeks to affected area(s) on FACE until rash develops (red, raw, and potentially scale or scab). Do not rinse.Try to apply for AT LEAST 2 weeks. Once rash becomes very vigorous, can stop/discontinue treatment. Do not allow animals to lick medication. Wash hands after applying 40 g 05/11/2024 Active Start: 01-21-2024 End: 02-04-2024 Fluorouracil (EFUDEX) 5 % cr eam Indications: AK (actinic keratosis) Apply to affected area two times a day for 14 days. OK to take breaks as needed for excessive irritation. 40 g 01/21/2024 02/04/2024 Active glipiZIDE er 5 mg 24 hr extended release oral tablet (20 sources) Sulfonylurea Start: 06-20-2024 End: 08-31-2024 take 1 tablet by mouth once daily glipiZIDE (GLUCOTROL XL) 5 mg 24 hr tablet Take 1 tablet by mouth once daily. 90 tablet 3 08/31/2024 Active Start: 04-14-2023 End: 06-16-2024 take 1 tablet by mouth once daily glipiZIDE (GLUCOTROL XL) 5 mg 24 hr tablet Take 1 tablet by mouth once daily. 90 tablet 3 12/29/2023 06/16/2024 Discontinued Comment on above: Take 1 tablet by silas th once daily. Take 1 tablet by silas th once daily 3 ml insulin degludec 100 unt/ml pen injector (20 sources) Insulin Analog Start: 03-24-19 End: 07-06-19 insulin degludec (TRESIBA FLEXTOUCH U-100) 100 unit/mL (3 mL) injection pen Inject 5 units once daily 3 mL 5 07/05/2024 Active Comment on above: Inject 5 units once daily iv contrast (will be provided with radiology test) (7 sources) Start: 08-08-19 End: 08-09-19 inject 1 dose intravenously once iv contrast (will be provided with radiology test) CTA ABD/PEL - No IV access, insert saline lock prior to the sedation, infusion, injection for imaging exam. Discontinue saline lock post exam. If Pt. has a central line or IVAD, may access for administration according to line specific nursing protocol. Once exam is complete flush line and de-access according to line specific nursing protocol in the CT contrast administration guidelines link. 1 each 08/07/2024 08/08/2024 Active Start: 10-01-2023 End: 10-02-2023 iv contrast (will be provide d with radiology test) CT LIVER W IVCON [...] contrast administration guidelines link. 1 Each 0 10/01/2023 10/02/2023 Active Start: 02-17-2023 End: 02-18-2023 iv contrast (will be provide d with radiology test) CT LIVER W IVCON [...] link. 1 Each 0 02/17/2023 02/18/2023 Active Start: 07-23-2021 End: 07-24-2021 iv contrast (will be provide d with radiology test) CT LIVER W IVCON [...] contrast administration guidelines link. 1 Each 0 07/23/2021 07/24/2021 Active Start: 07-21-2021 End: 07-22-2021 iv contrast (will be provide d with radiology test) MRI Liver Inject, intravenously, once for 1 dose. No IV access, insert saline lock prior to the beginning of sedation, infusion, injection of imaging exam. Discontinue saline lock post exam. If Pt. has a central line or IVAD, may access for administration according to line specific nursing protocol. Once exam is complete flush line and de-access according to line specific nursing protocol in the MR contrast administration guidelines link. 1 Each 0 07/21/2021 07/22/2021 Active Comment on above: MRI Liver Inject, in travenously, once for 1 dose. No IV access, insert saline lock prior to the beginning of sedation, infusion, injection of imaging exam. Discontinue saline lock post exam. If Pt. has a central line or IVAD, may access for administration according to line specific nursing protocol. Once exam is complete flush line and de-access according to line specific nursing protocol in the MR contrast administration guidelines link. CT LIVER W IVCON Inj ect, intravenously, once for 1 dose. No IV [...] in the CT contrast administration guidelines link. Lactobacill 46-B.animal-inulin (PROBIOTIC-10, WITH INULIN,) 10 billion cell -100 mg cap (20 sources) take 1 tablet by mouth once daily Lactobacill 46-B.animal-inulin (PROBIOTIC-10, WITH INULIN,) 10 billion cell -100 mg cap Take 1 tablet by mouth once daily. Active take 1 tablet by mouth once miladis y Lactobacill 46-B.animal-inulin (PROBIOTIC-10, WITH INULIN,) 10 billion cell -100 mg cap Take 1 tablet by mouth once daily. 0 Active Comment on above: Take 1 tablet by silas th once daily. 24 hr metoprolol succinate 100 mg extended release oral tablet (20 sources) beta-Adrenergic David Start: 03-27-2023 take 1 tablet by mouth every twelve hours Metoprolol Succinate 100 mg tablet extended release 24 hr Active 100 mg PO Q12H March 27, 2023 1:00am heart Start: 06-11-2020 End: 02-10-2023 take 1 tablet by mouth twice daily metoprolol succinate ER (TOPROL XL) 100 mg Take 1 tablet by mouth two times a day. 180 tablet 3 02/10/2023 Active Start: 08-20-2019 End: 03-29-2023 take 100 mg by mouth twice daily Metoprolol Succinate Discontinued 100 mg PO TWICE A DAY August 20, 2019 12:00am March 29, 2023 2:05pm heart rate Start: 08-20-2019 take 150 mg by mouth twice daily Metoprolol Succinate Active 150 MG PO TWICE A DAY August 19, 2019 11:00pm Comment on above: Take 1 tablet by silas th twice daily. TAKE 1 TABLET BY SILAS TH TWICE A DAY Take 1 tablet by silas th two times a day. morphine sulfate 15 mg oral tablet (1 source) Opioid Agonist Start: 5 End: take 7.5 mg by mouth every six hours as needed morphine IR 15 mg tablet Take 0.5 tablets by mouth every 6 hours as needed for pain for up to 3 days. 6 tablet 08/07/2024 08/10/2024 Active mycophenolate mofetil 500 mg oral tablet (20 sources) Start: 3 End: 5 take 1 tablet by mouth twice daily mycophenolate Mofetil (CELLCEPT) 500 mg tablet Take 1 tablet by mouth twice daily 180 tablet 09/20/2024 Active Start: 04-16-2022 End: 07-15-2022 take 1 tablet by mouth twice daily mycophenolate Mofetil (CELLCEPT) 500 mg tablet Take 1 tablet by mouth twice daily 180 tablet 0 04/16/2022 07/15/2022 Active Start: 06-16-2021 End: 01-21-2022 take 1 tablet by mouth twice daily mycophenolate Mofetil (CELLCEPT) 500 mg tablet Take 1 tablet by mouth twice daily. 180 tablet 1 10/23/2021 Active Comment on above: Take 1 tablet by silas twice daily. Take 1 tablet by silas th twice daily OTC NUTRITIONAL SUPPLEMENT (20 sources) Start: 07-06-2023 End: 10-04-2023 take 1 tablet by mouth once daily OTC NUTRITIONAL SUPPLEMENT Take 1 tablet by mouth once daily. Take by mouth as directed. 90 tablet 3 07/06/2023 10/04/2023 Active Start: 07-06-2023 OTC NUTRITIONA L SUPPLEMENT Take by mouth as directed. 60 capsule 3 07/06/2023 Active Start: 06-15-2023 End: 07-06-2023 take 1 tablet by mouth once daily OTC NUTRITIONAL SUPPLEMENT Take 1 tablet by mouth once daily. Take by mouth as directed. 90 tablet 1 06/15/2023 07/06/2023 Discontinued Start: 06-15-2023 End: 09-13-2023 take 1 tablet by mouth once daily OTC NUTRITIONAL SUPPLEMENT Take 1 tablet by mouth once daily. Take by mouth as directed. 90 tablet 1 06/15/2023 09/13/2023 Active Start: 01-14-2020 End: 07-06-2023 OTC NUTRITIONAL SUPPLEMENT T jose martin by mouth as directed. 60 capsule 1 01/14/2020 07/06/2023 Discontinued Start: 01-14-2020 OTC NUTRITIONA L SUPPLEMENT Take by mouth as directed. 60 capsule 1 01/14/2020 Active Comment on above: Take by mouth as dir ected. Take 1 tablet by silas th once daily. Take by mouth as directed. pantoprazole 40 mg delayed release oral tablet (20 sources) Proton Pump Inhibitor Start: take 1 tablet by mouth twice daily pantoprazole DR (PROTONIX) 40 mg tablet Take 1 tablet by mouth two times a day. 180 tablet 3 06/30/2024 Active Start: 03-29-2023 End: 05-30-2024 take 1 tablet by mouth twice daily pantoprazole DR (PROTONIX) 40 mg tablet Take 1 tablet by mouth two times a day. 180 tablet 3 06/30/2024 Active Start: 05-25-2022 End: 08-23-2022 take 1 tablet by mouth once daily pantoprazole DR (PROTONIX) 40 mg tablet Take 1 tablet by mouth once daily. 30 tablet 2 05/25/2022 Active Comment on above: Take 1 tablet by silas th once daily. Take 1 tablet by silas th two times a day. phenylephrine hydrochloride 25 mg/ml ophthalmic solution (3 sources) alpha-1 Adrenergic Agonist Start: 01-24-2024 End: 01-25-2024 PHENYLephrine 2.5 % 1 Drop (AK-DILATE, JESSICA-SYNEPHRINE) Start: 01-24-2024 End: 01-25-2024 1 Drop, BOTH EYES, DIRECT ED, Starting on Wed01/24/24 at 1400, Until Wed01/25/24 at 0159, Administer for dilation PROTECT FROM LIGHT Start: 01-22-2023 End: 01-23-2023 PHENYLephrine 2.5 % 1 Drop ( AK-DILATE, JESSICA-SYNEPHRINE) probenecid 500 mg oral tablet (20 sources) Start: 12-07-2022 End: 06-18-2024 take 1 tablet by mouth twice daily Probenecid 500 mg tablet Active 500 mg PO TWICE A DAY March 27, 2023 1:00am gout Start: 04-24-2021 End: 11-18-2022 take 1 tablet by mouth twice daily probenecid 500 mg tablet Indications: Acute gout involving toe of right foot, unspecified cause Take 1 tablet by mouth twice daily. 180 tablet 1 05/22/2022 Active Comment on above: Take 1 tablet by silas th twice daily. Take 1 tablet by silas two times a day. proparacaine hydrochloride 5 mg/ml ophthalmic solution (3 sources) Local Anesthetic Start: 01-24-2024 End: 01-25-2024 proparacaine 0.5 % 1 Drop (ALCAINE) Start: 01-24-2024 End: 01-25-2024 1 Drop, BOTH EYES, DIRECT ED, Starting on Wed01/24/24 at 1400, Until Wed01/25/24 at 0159, Administer for pneumo tonometry, tonopen tonometry, or pachymetry. In the event of a proparacaine shortage, administer tetracaine 0.5% ophthalmic drops 1 drop in the left eye as directed for pneumo tonometry, tonopen tonometry, or pachymetry Start: 01-22-2023 End: 01-23-2023 proparacaine 0.5 % 1 Drop (A LCAINE) tacrolimus 1 mg oral capsule (20 sources) Calcineurin Inhibitor Immunosuppressant Start: 08-20-2019 End: 04-10-2025 take 1 capsule by mouth twice daily tacrolimus IR (PROGRAF) 1 mg capsule Indications: Autoimmune hepatitis (HCC) Take 1 capsule by mouth two times a day. 180 capsule 3 04/10/2024 04/10/2025 Active Comment on above: Take 1 capsule by mo ut twice daily. Take 1 capsule by mo ut two times a day. tropicamide 10 mg/ml ophthalmic solution (3 sources) Anticholinergic Start: 01-24-2024 End: 01-25-2024 tropicamide 1 % 1 Drop (MYDRIACYL) Start: 01-24-2024 End: 01-25-2024 1 Drop, BOTH EYES, DIRECT ED, Starting on Wed01/24/24 at 1400, Until Wed01/25/24 at 0159, Administer for dilation Start: 01-22-2023 End: 01-23-2023 tropicamide 1 % 1 Drop (MYDR IACYL) ursodiol 300 mg oral capsule (20 sources) Bile Acid Start: 09-24-2021 End: 12-23-2021 take 1 capsule by mouth twice daily ursodiol (ACTIGALL) 300 mg capsule Take 1 capsule by mouth twice daily. 180 capsule 0 09/24/2021 12/23/2021 Active Start: 05-27-2021 End: 09-16-2021 take 1 capsule by mouth twice daily ursodiol (ACTIGALL) 300 mg capsule Take 1 capsule by mouth twice daily. 180 capsule 0 05/27/2021 09/16/2021 Active Start: 08-20-2019 End: 03-27-2023 take 1 capsule by mouth three times daily Ursodiol 300 MG capsule Discontinued 300 mg PO THREE TIMES A DAY August 20, 2019 12:00am March 27, 2023 1:18am Comment on above: Take 1 capsule by [facility] twice daily. Completed/Discontinued Medications Medication Drug Class(es) Dates Sig (Normalized) Sig (Original) aminolevulinate 200 mg/ml topical solution (2 sources) Start: 06-22-2023 End: 06-22-2023 Aminolevulinic Acid HCl 20 % soln 1 Each Start: 05-11-2023 End: 05-11-2023 Aminolevulinic Acid HCl 20 % soln 2 Each atorvastatin 10 mg oral tablet (7 sources) HMG-CoA Reductase Inhibitor Start: 04-09-2023 End: 04-08-2024 take 1 tablet by mouth once daily at bedtime for hyperlipidemia atorvastatin (LIPITOR) 10 mg tablet Indications: Hyperlipidemia LDL goal Take 1 tablet by mouth daily at bedtime. For cholesterol. 30 tablet 04/09/2023 06/15/2023 Discontinued (Side Effects) Comment on above: [facility] For cholesterol. azaTHIOprine 50 mg oral tablet (5 sources) Purine Antimetabolite Start: 08-20-2019 End: 03-27-2023 take 1 tablet by mouth once daily Azathioprine 50 MG tablet Discontinued 100 mg PO DAILY August 20, 2019 12:00am March 27, 2023 1:19am Start: 08-20-2019 End: 03-27-2023 take 100 mg by mouth once daily Azathioprine Discontinued 100 MG PO DAILY August 19, 2019 11:00pm March 27, 2023 12:19am budesonide 3 mg delayed release oral capsule (5 sources) Corticosteroid Start: 08-20-2019 End: 03-27-2023 take 1 capsule by mouth three times daily Budesonide 3 MG capsule,delayed,extend.release Discontinued 3 mg PO THREE TIMES A DAY August 20, 2019 12:00am March 27, 2023 1:19am cholecalciferol 0.025 mg oral capsule (20 sources) Vitamin D Start: 04-16-2021 End: 09-30-2022 take 1 capsule by mouth once daily Cholecalciferol, Vitamin D3, 25 mcg (1,000 unit) cap Indications: Vitamin D deficiency Take 1 capsule by mouth once daily. 0 04/16/2021 09/30/2022 Discontinued Comment on above: Take 1 capsule by [facility] once daily. ergocalciferol 1.25 mg oral capsule (20 sources) Provitamin D2 Compound Start: 04-17-2021 End: 06-15-2023 take 1 capsule by mouth every week ergocalciferol 50,000 unit capsule (VITAMIN D2, DRISDOL) Take 1 capsule by mouth one time a week. 12 capsule 0 04/17/2021 06/15/2023 Discontinued Comment on above: Take 1 capsule by [facility] one time a week. flash glucose scanning reader (FREESTYLE MARS 14 DAY READER) (9 sources) Start: 01-02-2022 flash glucose scanning reade r (FREESTYLE MARS 14 DAY READER) Indications: Type 2 diabetes mellitus treated with insulin ([facility]) Use to test blood glucose 4 times daily. 1 Each 2 01/02/2022 Active Start: 12-22-2021 End: 01-02-2022 flash glucose scanning reade r (FREESTYLE MARS 14 DAY READER) Indications: Portal vein thrombosis , Hypertrophic obstructive cardiomyopathy (HOCM) (HCC) , Type 2 diabetes mellitus treated with insulin (HCC) Use as directed 1 Each 2 12/22/2021 01/02/2022 Discontinued Start: 12-22-2021 flash glucose scanning reader (FREESTYLE MARS 14 DAY READER) Indications: Portal vein thrombosis , Hypertrophic obstructive cardiomyopathy (HOCM) (HCC) , Type 2 diabetes mellitus treated with insulin (HCC) Use as directed 1 Each 2 12/22/2021 Active Start: 12-22-2021 End: 12-22-2021 flash glucose scanning reade r (FREESTYLE MARS 14 DAY READER) Indications: Portal vein thrombosis , Hypertrophic obstructive cardiomyopathy (HOCM) (HCC) , Type 2 diabetes mellitus treated with insulin (HCC) Use as directed 1 Each 2 12/22/2021 12/22/2021 Discontinued Comment on above: Use as directed Use to test blood gl ucose 4 times daily. flash glucose scanning reader (FREESTYLE MARS 2 READER) (1 source) Start: 01-17-2022 End: 01-26-2022 flash glucose scanning reader (FREESTYLE MARS 2 READER) 1 Each four times daily as needed. 1 Each 0 01/17/2022 01/26/2022 Discontinued Comment on above: 1 Each four times [place] as needed. flash glucose sensor (FREESTYLE MARS 14 DAY SENSOR) kit (9 sources) Start: 12-22-2021 End: 01-26-2022 flash glucose sensor (FREESTYLE MARS 14 DAY SENSOR) kit Indications: Portal vein thrombosis , Hypertrophic obstructive cardiomyopathy (HOCM) (HCC) , Type 2 diabetes mellitus treated with insulin (HCC) Use every 2 weeks. E11.65 6 Each 3 12/22/2021 01/26/2022 Discontinued Start: 12-22-2021 flash glucose sensor (FREESTYLE MARS 14 DAY SENSOR) kit Indications: Portal vein thrombosis , Hypertrophic obstructive cardiomyopathy (HOCM) (HCC) , Type 2 diabetes mellitus treated with insulin (HCC) Use every 2 weeks. E11.65 6 Each 3 12/22/2021 Active Start: 12-22-2021 End: 12-22-2021 flash glucose sensor (FREEST YLE MARS 14 DAY SENSOR) kit Indications: Portal vein thrombosis , Hypertrophic obstructive cardiomyopathy (HOCM) (HCC) , Type 2 diabetes mellitus treated with insulin (HCC) Use every 2 weeks. E11.65 6 Each 3 12/22/2021 12/22/2021 Discontinued Comment on above: Use every 2 weeks. E 11.65 flash glucose sensor (FREESTYLE MARS 2 SENSOR) kit (1 source) Start: 01-17-2022 End: 01-26-2022 flash glucose sensor (FREESTYLE MARS 2 SENSOR) kit 2 Each four times daily as needed. 6 Each 3 01/17/2022 01/26/2022 Discontinued Comment on above: 2 Each four times [place] as needed. flash glucose sensor (FREESTYLE MARS 3 SENSOR) kit (3 sources) Start: 01-02-2022 End: 01-26-2022 flash glucose sensor (FREESTYLE MARS 3 SENSOR) kit Indications: Type 2 diabetes mellitus treated with insulin ([facility]) Use to test blood glucose 4 times daily. 2 Kit 5 01/02/2022 01/26/2022 Discontinued Start: 01-02-2022 flash glucose sensor (FREESTYLE MARS 3 SENSOR) kit Indications: Type 2 diabetes mellitus treated with insulin ([facility]) Use to test blood glucose 4 times daily. 2 Kit 5 01/02/2022 Active Comment on above: Use to test blood gl ucose 4 times daily. Tohyvkoi5-Vnptmm3-E trep therm. (VSL#3) 112.5 billion cell cap (20 sources) Start: 10-13-2022 take 1 capsule by mouth once daily Lactobac2-Bifido1- Strep therm. (VSL#3) 112.5 billion cell cap Take 1 capsule by mouth once daily. 90 capsule 1 10/13/2022 Active Start: 10-13-2022 End: 01-11-2023 take 1 capsule by mouth once daily Qkdwvzbm8-Minnfu6-Hyaxm therm. (VSL#3) 112.5 billion cell cap Take 1 capsule by mouth once daily. 90 capsule 1 10/13/2022 01/11/2023 Active Start: 06-09-2022 take 1 capsule by mo [facility] once daily Sgfwjcuj1-Pxyjdn4-Auivm therm. (VSL#3) 112.5 billion cell cap Take 1 capsule by mouth once daily. 90 capsule 1 06/09/2022 Active Start: 06-09-2022 End: 09-07-2022 take 1 capsule by mouth once daily Bhhbvxdk5-Gnkaqa4-Hkhgt therm. (VSL#3) 112.5 billion cell cap Take 1 capsule by mouth once daily. 90 capsule 1 06/09/2022 09/07/2022 Active Start: 03-24-2022 End: 06-08-2022 take 1 capsule by mouth once daily Ibqkoqjt7-Qchckt6-Hbdsr therm. (VSL#3) 112.5 billion cell cap Take 1 capsule by mouth once daily. 90 capsule 1 03/24/2022 06/08/2022 Discontinued Start: 03-24-2022 End: 06-22-2022 take 1 capsule by mouth once daily Gbegtxfe4-Sjnfnb8-Idrdd therm. (VSL#3) 112.5 billion cell cap Take 1 capsule by mouth once daily. 90 capsule 1 03/24/2022 06/22/2022 Active Start: 01-13-2022 End: 03-23-2022 take 1 capsule by mouth once daily Yixyxgxw3-Eqbtgl9-Bmfxt therm. (VSL#3) 112.5 billion cell cap Take 1 capsule by mouth once daily. 90 capsule 1 01/13/2022 03/23/2022 Discontinued Start: 01-13-2022 End: 04-13-2022 take 1 capsule by mouth once daily Ihtbnkgh2-Dyvyog4-Nglbn therm. (VSL#3) 112.5 billion cell cap Take 1 capsule by mouth once daily. 90 capsule 1 01/13/2022 04/13/2022 Active Start: 12-09-2021 End: 01-11-2022 take 1 capsule by mouth once daily Bhjgzazl9-Opqjep8-Nmgcb therm. (VSL#3) 112.5 billion cell cap Take 1 capsule by mouth once daily. 90 capsule 1 12/09/2021 01/11/2022 Discontinued Start: 12-09-2021 End: 03-09-2022 take 1 capsule by mouth once daily Jlgakizh1-Drgwog5-Anwhc therm. (VSL#3) 112.5 billion cell cap Take 1 capsule by mouth once daily. 90 capsule 1 12/09/2021 03/09/2022 Active Start: 09-24-2021 End: 12-08-2021 take 1 capsule by mouth once daily Saywtmwh0-Csmfua6-Whuys therm. (VSL#3) 112.5 billion cell cap Take 1 capsule by mouth once daily. 90 capsule 1 09/24/2021 12/08/2021 Discontinued Start: 09-24-2021 End: 12-23-2021 take 1 capsule by mouth once daily Hqvpsqmk5-Wqwhqn3-Qkiip therm. (VSL#3) 112.5 billion cell cap Take 1 capsule by mouth once daily. 90 capsule 1 09/24/2021 12/23/2021 Active Start: 06-30-2021 End: 09-23-2021 take 1 capsule by mouth once daily Jltzaeuk9-Ovzwes3-Bfwqh therm. (VSL#3) 112.5 billion cell cap Take 1 capsule by mouth once daily. 90 capsule 1 06/30/2021 09/23/2021 Discontinued Start: 06-30-2021 End: 09-28-2021 take 1 capsule by mouth once daily Rtthtkiz3-Ctqmlm1-Ccrbq therm. (VSL#3) 112.5 billion cell cap Take 1 capsule by mouth once daily. 90 capsule 1 06/30/2021 09/28/2021 Active Start: 05-19-2021 End: 06-28-2021 take 1 capsule by mouth once daily Oxorrnhu5-Eehdpc0-Cqnqo therm. (VSL#3) 112.5 billion cell cap Take 1 capsule by mouth once daily. 90 capsule 1 05/19/2021 06/28/2021 Discontinued Start: 05-19-2021 End: 08-17-2021 take 1 capsule by mouth once daily Rfkdtkzt2-Xcbiuh7-Wuuxl therm. (VSL#3) 112.5 billion cell cap Take 1 capsule by mouth once daily. 90 capsule 1 05/19/2021 08/17/2021 Active Comment on above: Take 1 capsule by [facility] once daily. lisinopril 5 mg oral tablet (15 sources) Angiotensin Converting Enzyme Inhibitor Start: 05-17-19 End: 08-16-19 take 1 tablet by mouth once daily lisinopril (ZESTRIL) 5 mg tablet Indications: Stage 3a chronic kidney disease (HCC) , Primary hypertension Take 1 tablet by mouth once daily. 90 tablet 3 05/17/2024 06/08/2024 Discontinued metroNIDAZOLE 0.01 mg/mg topical gel (20 sources) Nitroimidazole Antimicrobial Start: 04-16-19 End: 07-16-19 24 metroNIDAZOLE 1 % gel Indications: Rosacea Apply 1 application to affected area once daily. Location: face 60 g 1 04/16/2021 07/16/2023 Discontinued (Other) Comment on above: Apply 1 application to affected area once daily. Location: face omeprazole 20 mg delayed release oral capsule (5 sources) Proton Pump Inhibitor Start: 08-20-19 End: 03-29-19 take 1 capsule by mouth twice daily Omeprazole 20 MG capsule Discontinued 20 mg PO TWICE A DAY August 20, 2019 12:00am March 29, 2023 2:05pm gerd perflutren lipid microspheres 1.3 mL in NaCl (PF) 0.9% 10 mL injection (DEFINITY) (20 sources) Start: 06-07-19 End: 06-07-19 perflutren lipid microspheres 1.3 mL in NaCl (PF) 0.9% 10 mL injection (DEFINITY) Start: 06-06-2024 End: 06-06-2024 take 1 dose intravenously once as needed INTRAVENOUS, DIRECTED NEEDED, 1 dose, Starting on 06/06/24 at 1006, Until 06/06/24 at 1000, Per Protocol - for use during ECHO procedure only, If no IV access, insert saline lock prior to administering contrast. Discontinue saline lock post exam. If patient has central line or IVAD, may access for administration according to line specific nursing protocol. Once exam is complete, flush line and de-access per line specific nursing protocol.Dilute 1.3 ml of Definity with 8.7 ml of preservative-free saline., Cardiac Procedure Med Orders Start: 01-25-2023 End: 04-25-2024 perflutren lipid microsphere s 1.3 mL in NaCl (PF) 0.9% 10 mL injection (DEFINITY) Start: 07-13-2022 End: 10-12-2023 perflutren lipid microsphere s 1.3 mL in NaCl (PF) 0.9% 10 mL injection (DEFINITY) Start: 10-20-2021 End: 01-19-2023 perflutren lipid microsphere s 1.3 mL in NaCl (PF) 0.9% 10 mL injection (DEFINITY) SITagliptin 25 mg oral tablet (18 sources) Dipeptidyl Peptidase 4 Inhibitor Start: 04-20-2022 End: 04-20-2023 take 1 tablet by mouth once daily SITagliptin phosphate (JANUVIA) 25 mg tablet Take 1 tablet by mouth once daily. 30 tablet 11 04/20/2022 09/30/2022 Discontinued Comment on above: Take 1 tablet by silas th once daily. 125 ml sodium chloride 9 mg/ml prefilled syringe (20 sources) Start: 06-06-2024 End: 06-06-2024 sodium chloride 0.9 % (flush) 10 mL (BD POSIFLUSH) Start: 06-06-2024 End: 06-06-2024 10 mL, INTRAVENOUS, DIREC [place] NEEDED, 1 dose, Starting on Wed06/06/24 at 1006, Until Wed06/06/24 at 1000, Per Protocol - for use during ECHO procedure only, no IV access, insert saline lock prior to administering contrast. Discontinue saline lock post exam. If patient has central line or IVAD, may access for administration according to line specific nursing protocol. Once exam is complete, flush line and de-access per line specific nursing protocol., Cardiac Procedure Med Orders Start: 09-05-2020 End: 04-25-2024 sodium chloride 0.9 % (flush ) 10 mL (BD POSIFLUSH) traZODone hydrochloride 50 mg oral tablet (20 sources) Serotonin Reuptake Inhibitor Start: 10-11-2020 End: 06-08-2022 take 1 tablet by mouth once daily at bedtime as needed traZODone (DESYREL) 50 mg tablet Indications: Chronic insomnia Take 1 tablet by mouth daily at bedtime. prn 30 tablet 1 06/08/2022 Active Comment on above: Take 1 tablet by silas daily at bedtime. prn triamcinolone acetonide 10 mg/ml injectable suspension (20 sources) Corticosteroid Start: 02-14-2024 End: 02-14-2024 triamcinolone acetonide 40 mg injection (KeNALog 10) Start: 02-14-2024 End: 02-14-2024 40 mg, Injection - FOR ORTHO USE ONLY, ONCE, 1 dose, Starting on Wed02/14/24 at 1104, Until Wed02/14/24 at 1104 Start: 05-11-2023 End: 10-21-2023 triamcinolone (KENALOG) 0.02 5 % ointment Indications: AK (actinic keratosis) Apply to affected area 2 times daily for 1-2 weeks after PDT 30 g 0 05/11/2023 10/21/2023 Discontinued Start: 10-14-2020 triamcinolone acetonide (KENALOG) 0.1 % cream Apply 1 application to affected area twice daily. Apply to affected area. Location: posterior right buttock 45 g 1 10/14/2020 Active Comment on above: Apply 1 application to affected area twice daily. Apply to affected area. Location: posterior right buttock Apply to affected ar ea 2 times daily for 1-2 weeks after PDT Problems Active Problems Problem Classification Problem Date Documented Da te Episodic/Chronic Acute bronchitis (3 sources) Acute bronchitis; Translations: [Acute bronchitis, unspecified] 05-30-2024 Episodic Blindness and vision defects (4 sources) Bilateral myopia of eyes; Translations: [Myopia, bilateral] 01-22-2023 Episodic Cataract (2 sources) Bilateral senile combined form cataracts of eyes; Translations: [Combined forms of age-related cataract, bilateral] 01-22-2023 Chronic Chronic kidney disease (20 sources) Chronic kidney disease stage 3A ; Translations: [Stage 3a chronic kidney disease] Onset: 5 03-30-2024 Chronic Chronic kidney disease (2 sources) Chronic kidney disease; Translations: [Stage 3a chronic kidney disease (HCC)] Onset: 5 Coagulation and hemorrhagic disorders (20 sources) Platelet count below reference range; Translations: [Thrombocytopenia, unspecified] Onset: 0 04-11-2019 Chronic Conduction disorders (20 sources) H/O: cardiac pacemaker in situ; Translations: [Presence of automatic (implantable) cardiac defibrillator] Onset: 7 03-09-2017 Chronic Deficiency and other anemia (20 sources) Iron deficiency anemia due to blood loss; Translations: [Iron deficiency anemia secondary to blood loss (chronic)] Onset: 4 06-15-2023 Chronic Deficiency and other anemia (1 source) Iron deficiency anemia secondary to blood loss (chronic); Translations: [Iron deficiency anemia due to chronic blood loss] Onset: 4 Chronic Deficiency and other anemia (4 sources) Anemia; Translations: [Anemia, unspecified] 01-05-2024 Episodic Deficiency and other anemia (2 sources) Anemia, unspecified; Translations: [Anemia, unspecified] 03-26-2023 Episodic Diabetes mellitus with complications (20 sources) Type 2 diabetes mellitus; Translations: [Type 2 diabetes mellitus with hyperglycemia] Onset: 0 Resolved: 0 09-30-2022 Chronic Diabetes mellitus without complication (20 sources) Type 2 diabetes mellitus without complication; Translations: [Type 2 diabetes mellitus without complications] Onset: 9 Resolved: 0 Chronic Diseases of mouth; excluding dental (2 sources) Bleeding from mouth; Translations: [Other lesions of oral mucosa] Episodic Disorders of lipid metabolism (20 sources) Hyperlipidemia; Translations: [Hyperlipidemia, unspecified] Onset: 0 10-20-2019 Chronic Esophageal disorders (20 sources) Gastroesophageal reflux disease; Translations: [Gastro-esophageal reflux disease without esophagitis] Onset: 5 Chronic Essential hypertension (20 sources) Essential hypertension; Translations: [Essential (primary) hypertension] Onset: 0 08-21-2019 Chronic Gastrointestinal hemorrhage (6 sources) Acute upper gastrointestinal hemorrhage; Translations: [Gastrointestinal hemorrhage, unspecified] 03-26-2023 Episodic Gout and other crystal arthropathies (20 sources) Chronic gout without tophus; Translations: [Chronic gout, unspecified, without tophus (tophi)] Onset: 1 Resolved: 2 04-11-2020 Chronic Hepatitis (20 sources) Autoimmune hepatitis; Translations: [Autoimmune hepatitis] Onset: 9 Resolved: 2 08-21-2019 Chronic Hypertension with complications and secondary hypertension (20 sources) Chronic kidney disease due to hypertension; Translations: [Hypertensive chronic kidney disease with stage 1 through stage 4 chronic kidney disease, or unspecified chronic kidney disease] Onset: 5 04-05-2024 Chronic Miscellaneous mental health disorders (20 sources) Chronic insomnia; Translations: [Psychophysiologic insomnia] Onset: 9 12-01-2018 Chronic Neoplasms of unspecified nature or uncertain behavior (2 sources) Monoclonal gammopathy of uncertain significance; Translations: [Monoclonal gammopathy] Onset: 5 07-12-2024 Chronic Neoplasms of unspecified nature or uncertain behavior (2 sources) Neoplastic disease; Translations: [Neoplasm of unspecified behavior of bone, soft tissue, and skin] Onset: 5 05-11-2023 Episodic Osteoarthritis (20 sources) Arthritis of shoulder region joint; Translations: [Primary osteoarthritis, unspecified shoulder] Onset: 7 Resolved: 0 03-09-2017 Chronic Osteoporosis (1 source) Localized osteoporosis - [place]; Translations: [Localized osteoporosis [[place]]] 10-01-2023 Chronic Other aftercare (3 sources) Antibiotic prophylaxis indicated; Translations: [exterminator termite (current) use of antibiotics] Episodic Other aftercare (20 sources) Long-term current use of insulin; Translations: [half-way (current) use of insulin] Onset: 5 04-05-2024 Episodic Other aftercare (1 source) Post-discharge follow-up; Translations: [Encounter for follow-up examination after completed treatment for conditions other than malignant neoplasm] 04-12-2024 Episodic Other aftercare (3 sources) Patient encounter status; Translations: [Encounter for therapeutic drug level monitoring] 05-10-2024 Episodic Other and unspecified benign neoplasm (1 source) Senile angioma; Translations: [Hemangioma of skin and subcutaneous tissue] 05-11-2023 Episodic Other and unspecified benign neoplasm (1 source) Multiple benign melanocytic nevi ; Translations: [Melanocytic nevi, unspecified] 05-11-2023 Episodic Other circulatory disease (2 sources) Clearing throat - [place]; Translations: [Other specified symptoms and signs involving the circulatory and respiratory systems] Episodic Other circulatory disease (1 source) Telangiectasia disorder; Translations: [Nevus, non-neoplastic] 07-20-2024 Episodic Other connective tissue disease (1 source) Pain in right foot; Translations: [Pain in right foot] 10-14-2022 Episodic Other connective tissue disease (2 sources) Muscle spasm of cervical muscle of neck; Translations: [Other muscle spasm] 08-06-2024 Episodic Other eye disorders (2 sources) Drusen of left optic disc; Translations: [Drusen of optic disc, left eye] 01-22-2023 Chronic Other gastrointestinal disorders (1 source) Diarrhea; Translations: [Diarrhea, unspecified] 03-26-2023 Episodic Other gastrointestinal disorders (1 source) Diarrhea, unspecified; Translations: [Diarrhea] 03-26-2023 Episodic Other gastrointestinal disorders (1 source) Dark stools; Translations: [Other fecal abnormalities] 07-06-2023 Episodic Other hematologic conditions (1 source) Cytopenia 08-01-2024 Chronic Other hematologic conditions (1 source) Other specified diseases of blood and blood-forming organs; Translations: [Clonal hematopoiesis of indeterminate potential (CHIP)] Onset: 5 Chronic Other hematologic conditions (1 source) Cytopenia; Translations: [Disease of blood and blood-forming organs, unspecified] 08-01-2024 Episodic Other infections; including parasitic (20 sources) Lyme disease; Translations: [Lyme disease, unspecified] 10-11-2020 Episodic Other liver diseases (20 sources) Cirrhosis of liver; Translations: [Unspecified cirrhosis of liver] Onset: 9 08-04-2018 Chronic Other liver diseases (2 sources) Hepatic sclerosis; Translations: [Hepatic sclerosis] Chronic Other liver diseases (3 sources) Lesion of liver; Translations: [Liver disease, unspecified] Chronic Other liver diseases (3 sources) Disease of liver; Translations: [Liver disease, unspecified] Chronic Other liver diseases (20 sources) Portal hypertension; Translations: [Portal hypertension] Onset: 5 10-01-2023 Chronic Other liver diseases (1 source) Other cirrhosis of liver; Translations: [Other cirrhosis of liver (HCC)] Onset: 5 Chronic Other liver diseases (1 source) Portal hypertension; Translations: [Portal hypertension (HCC)] Onset: 5 Chronic Other liver diseases (2 sources) Unspecified cirrhosis of liver; Translations: [Cirrhosis of liver without ascites, unspecified hepatic cirrhosis type (HCC)] Onset: 5 Chronic Other liver diseases (1 source) Liver disease, unspecified; Translations: [Liver disease] Onset: 5 Chronic Other nervous system disorders (20 sources) Neuropathy; Translations: [Polyneuropathy, unspecified] Onset: 1 10-11-2020 Chronic Other non-traumatic joint disorders (5 sources) Pain in left knee; Translations: [Pain in joint, lower leg] Onset: 4 02-14-2024 Episodic Other non-traumatic joint disorders (1 source) Pain in right shoulder; Translations: [Pain in joint, shoulder region] 08-07-2024 Episodic Other skin disorders (6 sources) Actinic keratosis; Translations: [Actinic keratosis] 05-11-2023 Episodic Other skin disorders (1 source) Seborrheic keratosis; Translations: [Other seborrheic keratosis] 05-11-2023 Episodic Other skin disorders (1 source) Lentiginosis; Translations: [Other melanin hyperpigmentation] 05-11-2023 Episodic Other skin disorders (1 source) Personal history of diseases of the skin and subcutaneous tissue; Translations: [Hx of actinic keratosis] Onset: 5 Episodic Other upper respiratory disease (1 source) Singers' nodes; Translations: [Nodules of vocal cords] Episodic Elvira-; endo-; and myocarditis; cardiomyopathy (20 sources) Obstructive hypertrophic cardiomyopathy; Translations: [Hypertrophic obstructive cardiomyopathy] Onset: 8 08-21-2019 Chronic Residual codes; unclassified (4 sources) History of immunosuppressive therapy; Translations: [Personal history of immunosupression therapy] 03-26-2023 Episodic Residual codes; unclassified (1 source) Personal history of immunosupression therapy; Translations: [Personal history of immunosuppressive therapy] 03-26-2023 Episodic Spondylosis; intervertebral disc disorders; other back problems (20 sources) Degeneration of lumbar intervertebral disc; Translations: [Other intervertebral disc degeneration, lumbar region] Onset: 7 03-09-2017 Chronic Unclassified (1 source) Unknown / UNK(Unknown) Onset: 8 Unclassified (1 source) Acute pain of left knee 10-03-2024 Unclassified (8 sources) Autogenerated Problem Onset: 5 11-02-2024 Past or Other Problems Problem Classification Problem Date Documented Da te Episodic/Chronic Diabetes mellitus without complication (20 sources) Steroid-induced hyperglycemia; Translations: [Hyperglycemia, unspecified] Onset: 0 Resolved: 2 10-11-2020 Episodic Genitourinary symptoms and ill-defined conditions (20 sources) Persistent proteinuria; Translations: [Persistent proteinuria, unspecified] Onset: 5 04-12-2024 Episodic Medical examination/evaluation (1 source) Encounter for preprocedural cardiovascular examination; Translations: [Encounter for preprocedural cardiovascular examination] Onset: 8 Episodic Mood disorders (20 sources) Recurrent depression; Translations: [Major depressive disorder, recurrent, unspecified] Onset: 0 Resolved: 2 12-26-2019 Chronic Nausea and vomiting (20 sources) Nausea and vomiting; Translations: [Nausea with vomiting, unspecified] Onset: 0 Resolved: 0 08-21-2019 Episodic Nonspecific chest pain (20 sources) Chest pain; Translations: [Other chest pain] Onset: 3 Resolved: 4 01-25-2023 Episodic Other aftercare (1 source) Encounter for therapeutic drug level monitoring; Translations: [Anticoagulation management encounter] Onset: 5 Episodic Other aftercare (1 source) half-way (current) use of anticoagulants; Translations: [Anticoagulation management encounter] Onset: 5 Episodic Other aftercare (1 source) 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; Translations: [Controlled type 2 diabetes mellitus without complication, with long-term current use of insulin (HCC)] Onset: 5 Episodic Other aftercare (1 source) Encounter for follow-up examination after completed treatment for conditions other than malignant neoplasm; Translations: [Hospital discharge follow-up] Onset: 5 Episodic Other circulatory disease (1 source) Nevus, non-neoplastic; Translations: [Telangiectasia] Onset: 5 Episodic Other connective tissue disease (20 sources) Transient neurological symptoms; Translations: [Unspecified symptoms and signs involving the nervous system] Onset: 9 04-18-2018 Episodic Other connective tissue disease (20 sources) Disorder of tendon of biceps; Translations: [Unspecified disorder of synovium and tendon, unspecified upper arm] Onset: 8 Resolved: 8 10-11-2017 Episodic Other connective tissue disease (20 sources) Unspecified rotator cuff tear or rupture of unspecified shoulder, not specified as traumatic; Translations: [Rotator cuff (capsule) sprain] Onset: 8 Resolved: 8 10-11-2017 Episodic Other diseases of veins and lymphatics (20 sources) Vascular insufficiency; Translations: [Venous insufficiency (chronic) (peripheral)] Onset: 1 04-11-2020 Episodic Other diseases of veins and lymphatics (1 source) Venous insufficiency (chronic) (peripheral); Translations: [Venous insufficiency] Onset: 1 Episodic Other infections; including parasitic (20 sources) Dunnell spotted fever; Translations: [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] Onset: 3 12-22-2021 Episodic Other inflammatory condition of skin (2 sources) Pruritus, unspecified; Translations: [Unspecified pruritic disorder] Onset: 5 07-20-2024 Episodic Other liver diseases (20 sources) Aspartate aminotransferase serum level raised; Translations: [Elevated SGOT (AST)] Onset: 1 Resolved: 1 10-11-2020 Episodic Other non-traumatic joint disorders (20 sources) Rotator cuff arthropathy of left shoulder; Translations: [Other specific arthropathies, not elsewhere classified, left shoulder] Onset: 7 Resolved: 8 10-11-2017 Chronic Other screening for suspected conditions (not mental disorders or infectious disease) (20 sources) Other specified abnormal findings of blood chemistry; Translations: [Other abnormal blood chemistry] Onset: 9 Resolved: 1 Episodic Other skin disorders (1 source) Actinic keratosis; Translations: [Actinic keratosis] Onset: 5 Episodic Other upper respiratory infections (6 sources) Acute upper respiratory infection; Translations: [Acute upper respiratory infection, unspecified] Onset: 5 04-14-2024 Episodic Peripheral and visceral atherosclerosis (3 sources) Superior mesenteric vein thrombosis ; Translations: [Acute infarction of intestine, part and extent unspecified] Onset: 5 08-07-2024 Episodic Phlebitis; thrombophlebitis and thromboembolism (20 sources) Portal vein thrombosis; Translations: [Portal vein thrombosis] Onset: 0 08-21-2019 Episodic Spondylosis; intervertebral disc disorders; other back problems (20 sources) Lumbar radiculopathy; Translations: [Radiculopathy, lumbar region] Onset: 2 Resolved: 3 11-24-2019 Episodic Unclassified (1 source) Encounter for preprocedural cardiovascular examination Onset: 8 Results Test Name Value Interpretation Reference Range Facility HISTORY PHYSICALon 5 HISTORY PHYSICAL HNO ID: [id number] Author: PRABHU TYLER MD Service: Pain Management Author Type: Physician Type: H&P Filed: 11/28/2024 07:02 Note Text: HISTORY AND PHYSICAL EXAMINATION PATIENT NAME: Mateus Yi DATE of SERVICE: 11/28/2024 Mateus Yi is here for the pain mangement procedure. The patients presents with persistent pain complaints. Mateus Yi denies any interval changes or new pain complaints or focal neurologic deficits. 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 cardiac ablation Alcohol/Drug Brother No Known Problems Son Heart Paternal Uncle suddenly at age 40's, 2 other uncles suddenly ALLERGIES Allergen Reactions Percocet [Oxycodone* Other: See Comments Pt states he doesn't have an allergy to percocet, but because of his reaction to Vicodin, he avoids it. Vicodin [Hydrocodon* Anaphylaxis stopped breathing Hibiscus (Hibiscus * Hives, Shortness of Breath Valsartan Myalgia Cramps in legs, muscle pain Lidocaine Other: See Comments Dizziness, profuse sweating with application of topical lidocaine patch to abdomen; symptoms resolved with removal of patch. Nsaids (Non-Steroid* Contraindication-Medical Surgical Liver and kidney Tylenol [Acetaminop* Contraindication-Medical Surgical Liver and kidney Current Facility-Administered Medications Medication Dose Route Frequency NaCl 0.9% iv infusion 30 mL/hr INTRAVENOUS CONTINUOUS Physical Exam: Performed in conjunction with observation. The patient is alert and oriented x3. The patient is in no acute distress. Neck: Supple. The range of motion is intact. Lungs: clear CVR: RRR. Extremities: no reported edema or erythema. Examination indicates no changes Impression: Cervical spondylosis Plan: The informed consent has been obtained. The plan is to proceed with the procedure as planned. SIGNATURE: Prabhu Tyler MD DATE: November 28, 2024 TIME: 7:02 AM [1] Social History Tobacco Use Smoking status: Former Types: Cigars Smokeless tobacco: Never Vaping Use Vaping status: Some Days Substances: THC, CBD Devices: Disposable Substance Use Topics Alcohol use: Not Currently Drug use: Yes Types: Marijuana Comment: medical marijuana [facility] OPERATIVE NOon 11-28-2024 OPERATIVE NO HNO ID: [id number] Author: PRABHU TYLER MD Service: Pain Management Author Type: Physician Type: Operative Report Filed: 11/28/2024 07:56 Note Text: PATIENT NAME: Mateus Yi SERVICE DATE: 11/28/2024 PROCEDURE NOTE PREOPERATIVE DIAGNOSIS(ES) Cervical spondylosis Cervical DDD POSTOPERATIVE DIAGNOSIS(ES): Same PROCEDURE: Right C3,4,5 Facet Medial Branch Nerve Blockunder fluoroscopy. Tool Trouble Shooter(s): None, I performed the entire procedure. ANESTHESIA: Local SEDATION: Moderate Sedation; midazolam 3mg IV, ASA status II, normal airway, chest excursion and heart rate. Airway reassessed immediately prior to medication administration, and IV sedation was administered incrementally to allow the patient to remain comfortable and conversant throughout the procedure. Sedation Start Time: 7:41 AM Sedation End Time: 7:54 AM INDICATIONS: The patient presents with persistent pain. The plan is to proceed with cervical facet medial branch nerve block as a diagnostic and therapeutic approach. The risks and benefits of the procedure were discussed. Specifically, the risks of bleeding, infection, inadvertent dural puncture, spinal heaches, vasovagal reaction, epidural hematoma, partial or permanent nerve injury were covered. The potential side effects of medications used in procedures including increase in lumbar pain, headaches, facial redness or warmth (flushing), anxiety or mood swings, sleeplessness, fever, high blood sugar, brief reduction in immunity were discussed. The patient expressed understanding of potential risks and wishes to proceed with the procedure. PROCEDURE: The patient was brought to the OR. The patient was placed in the prone position with pressure points protected. Continuous hemodynamic monitoring was initiated including blood pressure, EKG, and pulse oximetry. Supplemental oxygen per nasal canula was started. The intravenous medication was administered incrementally to provide conscious sedation and to allow the patient to remain comfortable and conversant throughout the procedure. The area of the posterior cervical spine was prepped povidone-iodine three times and draped into a sterile field. Fluoroscopy was used to identify the location of the C3,4,5 medial branchnerves at the lateral grooves of the each vertebral levels on the left side. Skin anesthesia was achieved using 10 cc of bupivacaine 0.25% over the injection sites. A 22 gauge, 3 1/2 spinal needle was slowly inserted at each level using AP, lateral and oblique fluoroscopic imaging. Negative aspiration for blood or CSF was confirmed. A total of 3ml of 1ml of 0.25% Bupivacaine per 5 mg of Kenalog mixture was injected. A total of 3 sites were injected in equal and divided doses. The needles were removed and bleeding was nil. A sterile dressing was applied. The patient tolerated the procedure well. The patient was taken to the recovery room in stable condition. EBL: nil I was present the entire time and personally performed the procedure. SIGNATURE: Prabhu Tyler MD DATE: November 28, 2024 TIME: 7:55 AM [facility] CTA Abdominal vessels and Pe lvis vessels W contrast Porter 11-07-2024 IMPRESSION: Significant interval decrease in the portal vein thrombus with residual slither of eccentric thrombus in the main portal vein extending into the bifurcation of the right and left intrahepatic portal veins. Significant interval improvement in the SMV thrombus with residual eccentric thrombus. Christian Education Director: ANTHONY Transcribe Date/Time: Nov 07 2024 12:08P Dictated by : JESSICA BUNDY MD This examination was interpreted and the report reviewed and electronically signed by: JESSICA BUNDY MD on Nov 07 2024 12:14PM [facility] DIVISION OF RADIOLOGY * * *Final Report* * * DATE OF EXAM: Nov 07 2024 11:17AM [facility] 0311 - CTA ABD/PELV W IVCON / PROCEDURE REASON: Portal vein thrombosis * * * * Physician Interpretation * * * * CTA abdomen and pelvis HISTORY: Portal vein thrombosis TECHNIQUE: High-resolution contrast-enhanced helical CT of the abdomen and pelvis was performed, timed to the venous phase. 3-D processing was performed by the physician on an independent work station, with MIP and volume-rendering techniques. Total of 120 ml of Omnipaque 350 was injected IV during the examination. The study was performed without oral contrast. The patient tolerated the injection without complications. Dose-Length Product (DLP): 632 mGy*cm. CT Dose Reduction Employed: Automated exposure control(AEC) and iterative recon COMPARISON: 03/29/2024. LIMITATIONS: None FINDINGS: Previously seen large portal vein thrombus significantly decreased in size with now an eccentric slither of thrombus in the main portal vein extending into the bifurcation of the right and left intrahepatic portal veins. Patent splenic vein. Organized eccentric thrombus in the SMV, significantly decreased in cooperative and compared to prior exam. Opacified Peripheral portal mesenteric veins are patent. Nonvascular findings: Lung bases are clear. No focal or lobar consolidation. No pleural effusion. Cirrhotic liver with trace perihepatic fluid. Granulomatous changes. Hepatic veins are patent. No intrahepatic biliary dilatation. Gallbladder nondistended. Splenomegaly with granulomatous changes. Partially fatty replaced pancreas. LEFT adrenal gland with a 9 mm nodule. Right adrenal gland is unremarkable. Symmetrically perfused kidneys without obstructing renal stones. Multiple renal cysts. No hydronephrosis or hydroureters. Urinary bladder partially filled No dilated loops of small bowel or bowel wall thickening. Normal appendix. Colonic diverticulosis most significant in the sigmoid. Degenerative changes in the thoracolumbar spine. DIVISION OF RADIOLOGY Provider, [facility] - 11/07/2024 * * *Final Report* * * DATE OF EXAM: Nov 07 2024 11:17AM [facility] 0311 - CTA ABD/PELV W IVCON / PROCEDURE REASON: Portal vein thrombosis * * * * Physician Interpretation * * * * CTA abdomen and pelvis HISTORY: Portal vein thrombosis TECHNIQUE: High-resolution contrast-enhanced helical CT of the abdomen and pelvis was performed, timed to the venous phase. 3-D processing was performed by the physician on an independent work station, with MIP and volume-rendering techniques. Total of 120 ml of Omnipaque 350 was injected IV during the examination. The study was performed without oral contrast. The patient tolerated the injection without complications. Dose-Length Product (DLP): 632 mGy*cm. CT Dose Reduction Employed: Automated exposure control(AEC) and iterative recon COMPARISON: 03/29/2024. LIMITATIONS: None FINDINGS: Previously seen large portal vein thrombus significantly decreased in size with now an eccentric slither of thrombus in the main portal vein extending into the bifurcation of the right and left intrahepatic portal veins. Patent splenic vein. Organized eccentric thrombus in the SMV, significantly decreased in cooperative and compared to prior exam. Opacified Peripheral portal mesenteric veins are patent. Nonvascular findings: Lung bases are clear. No focal or lobar consolidation. No pleural effusion. Cirrhotic liver with trace perihepatic fluid. Granulomatous changes. Hepatic veins are patent. No intrahepatic biliary dilatation. Gallbladder nondistended. Splenomegaly with granulomatous changes. Partially fatty replaced pancreas. LEFT adrenal gland with a 9 mm nodule. Right adrenal gland is unremarkable. Symmetrically perfused kidneys without obstructing renal stones. Multiple renal cysts. No hydronephrosis or hydroureters. Urinary bladder partially filled No dilated loops of small bowel or bowel wall thickening. Normal appendix. Colonic diverticulosis most significant in the sigmoid. Degenerative changes in the thoracolumbar spine. IMPRESSION IMPRESSION: Significant interval decrease in the portal vein thrombus with residual slither of eccentric thrombus in the main portal vein extending into the bifurcation of the right and left intrahepatic portal veins. Significant interval improvement in the SMV thrombus with residual eccentric thrombus. Christian Education Director: PSCB Transcribe Date/Time: Nov 07 2024 12:08P Dictated by : JESSICA BUNDY MD This examination was interpreted and the report reviewed and electronically signed by: JESSICA BUNDY MD on Nov 07 2024 12:14PM EST [facility] Radiology Study observation (narrative) [facility] CTA Abdominal vessels and Pe lvis vessels W contrast IVOrdered By: [facility] Provider on 11-07-2024 [facility] Inital Evaluation (1) - PTon 10-23-2024 Inital Evaluation (1) - PT [facility] Physical Therapy [facility] [address] [place] [address] / REHABILITATION SERVICES INITIAL EVALUATION MR#: [id number] Acct: [id number] Name: PARKER YI Rep #: [id number] : 1950 74 From: Naif Damian PT, ATC Referring Dr.: VERO Hall Status: REG RCR Insurance: MEDICARE PART A B [facility] Patient's Visit Information Visit Information Visit Information: PARKER YI is a 74 year old M referred to Physical Therapy by VERO Hall with a diagnosis of L knee pain. Date of Evaluation: 10/23/24 Physical Therapist: Naif Damian, PT, ATC Visit Plan Frequency: 1x/Week Duration: 1 Week Plan: Issue and instruct pt on a gym strengthening routine on his next visit. Also issue HEP for core strengthening. Follow up then in one month. Subjective Subjective: Pt reports he has had L knee pain for a chronic time period. 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 Pt reports he has had xrays on his R knee which revealed OA, but has not had any tests on his L knee. Pt notes his pain is the worst when he sits still for a long period of time. Pt notes he has sleep difficulty secondary to pain that he has to manage. Pt reports both of his knees will crack when he attempts to stand up form a seated position. pt denies his L knee giving out or locking up on him. Pt notes he is here to get a program of exercises that he can to at home. 1/10 pain at rest, 4/10 at worst. Pain L knee pain: Pain Intensity (Out of 10): 1 Pain Intensity Range: 4 Objective Objective: Neuro: B LE sensation is WNL to light touch Palpation: Pt has tenderness on medial aspect of L knee. Pt also has significant crepitus with AROM ROM: L knee 0-4-130 degrees ; R knee 0-4-130 degrees MMT: L knee flex= 39 , ext= 42 #F; R knee flex= 46, ext= 52 #F Goals Goal 1:: I with HEP Goal Time Frame: 2-4 Weeks Rehabilitation Potential Physical Therapy Diagnosis: Pt has L knee pain and weakness secondary to degenerative changes in the L kne Rehabilitation Potential: Good Anticipated Interventions Patient/Client Instruction: Educate patient on: Condition and Plan of Care For the Purpose of:: To improve self management Therapeutic Exercise to Include: Strength training, Endurance training, Balance training, Flexibilty training and Dynamic Lumbar Stabilization For the Purpose of:: To decrease pain and To improve muscle performance and motor function Cryotherapy (ice pack, ice massage): Yes For the Purpose of:: To decrease pain Text: Thank you for the opportunity to evaluate your patient. For Medicare and Medicare HMO plans, please review the plan of care and approve it. It will need to be FAXED BACK to us at [phone] for Medicare purposes. For Medicare only, by signing this I certify the plan of care. Please let me know if there are questions or concerns regarding this plan of care. Physician Signature: _Date: 10/23/24 1701 CC: VERO Martínez; Dr. Davis May MD [facility] Signed Normal [facility] CBC W Auto Differential pane l (Bld)on 10-13-2024 Basophils (Bld) [#/Vol] NINF [facility] Basophils/100 WBC (Bld) 0.4 % [facility] Differential cell count method Nom (Bld) Auto [facility] Eosinophils (Bld) [#/Vol] 0.08 10*3/uL NINF [facility] Eosinophils/100 WBC (Bld) 1.7 % [facility] Erythrocyte distribution width (RBC) [Ratio] 14.1 % 11.5 - 15.0 % [facility] Hematocrit (Bld) [Volume fraction] 37.7 % Low 39.0 - 51.0 % [facility] Hemoglobin (Bld) [Mass/Vol] 13.1 g/dL 13.0 - 17.0 g/dL [facility] Immature granulocytes (Bld) [#/Vol] [facility] Immature granulocytes/100 WBC (Bld) 0.2 % [facility] Interpretation and review of laboratory results Abnormal [facility] Lymphocytes (Bld) [#/Vol] 0.8 10*3/uL Low [facility] Lymphocytes/100 WBC (Bld) 16.8 % [facility] MCH (RBC) [Entitic mass] 31.6 pg 26.0 - 34.0 pg [facility] MCHC (RBC) [Mass/Vol] 34.7 g/dL 30.5 - 36.0 g/dL [facility] MCV (RBC) [Entitic vol] 90.8 fL 80.0 - 100.0 fL [facility] Monocytes (Bld) [#/Vol] 0.37 10*3/uL [facility] Monocytes/100 WBC (Bld) 7.8 % [facility] Neutrophils (Bld) [#/Vol] 3.49 10*3/uL [facility] Neutrophils/100 WBC (Bld) 73.1 % [facility] Nucleated RBC (Bld) [#/Vol] [facility] Nucleated RBC/100 WBC (Bld) [Ratio] 0 % /100 WBC [facility] Platelet mean volume (Bld) [Entitic vol] 12.1 fL 9.0 - 12.7 fL [facility] [facility] Platelets (Bld) [#/Vol] 79 10*3/uL Low [facility] Comment on above: No clot detected. RBC (Bld) [#/Vol] 4.15 10*6/uL Low 4.20 - 6.00 m/uL [facility] WBC (Bld) [#/Vol] 4.77 10*3/uL [facility] HbA1c (Bld)on 10-13-2024 Average glucose Estimated from glycated hemoglobin (Bld) [Mass/Vol] 169 mg/dL [facility] Comment on above: eAG: (Estimated aver age glucose) is a calculated value from HgbA1c and is food service representative of the average blood glucose level in the last 2-3 month period. HbA1c (Bld) [Mass fraction] 7.5 % High 4.3 - 5.6 % [facility] Comment on above: [employer] Diabetes [employer] sociation guidelines indicate that patients with HgbA1c in the range 5.7-6.4% are at increased risk for development of diabetes, and intervention by lifestyle modification may be beneficial. HgbA1c greater or equal to 6.5% is considered diagnostic of diabetes. Interpretation and review of laboratory results Abnormal [facility] CT Cervical spine WO contras ton 10-06-2024 IMPRESSION: Degenerative changes of the cervical spine as discussed. No severe foraminal or severe canal narrowing identified. Degenerative changes are most pronounced at C3-4 as discussed. Anatomic Variant: None. Assume 7 cervical vertebrae with counting from the craniocervical junction. Christian Education Director: PSCAnuj Transcribe Date/Time: Oct 06 2024 1:15P Dictated by : GIOVANI ABEL MD This examination was interpreted and the report reviewed and electronically signed by: GIOVANI ABEL MD on Oct 06 2024 1:18PM [facility] DIVISION OF RADIOLOGY * * *Final Report* * * DATE OF EXAM: Oct 06 2024 12:08PM [facility] 0505 - CT CERVICAL SPINE WO IVCON / PROCEDURE REASON: Spinal stenosis of cervical region * * * * Physician Interpretation * * * * EXAMINATION: CT CERVICAL SPINE WO IVCON CLINICAL HISTORY: Spinal stenosis of cervical region TECHNIQUE: Spiral, high resolution axial unenhanced images were obtained from the skull base to the cervicothoracic junction with sagittal and coronal planar reconstructions. MQ: CTCSPWO_5 CT Radiation dose: Integrated CT Dose-Length Product (DLP) for this visit = 519 mGy*cm CT Dose Reduction Employed: Automated exposure control(AEC) and iterative recon COMPARISON: None. RESULT: Counting reference: Craniocervical junction. Anatomic Variants: None. Gluer Machine Setup Operator (topogram) images: No additional findings. Alignment: Alignment is anatomic. Craniocervical junction: Craniocervical junction is normal. Osseous structures/fracture: No evidence of a lytic or blastic process in the visualized spine. No evidence of acute or chronic fracture. Cervical soft tissues: The paraspinal soft tissues are within normal limits. Degenerative changes: C2-C3: Facet hypertrophy with mild right foraminal stenosis. Left neural foramen is patent. Spinal canal is patent. C3-C4: Disc/osteophyte complex bulge with mild spinal canal stenosis. Facet and uncinate hypertrophy with mild bilateral foraminal stenosis, right greater than left. Right paracentral disc/osteophyte extrusion with partial effacement of the right lateral recess. C4-C5: Facet hypertrophy with moderate right and mild left foraminal stenosis. No significant canal narrowing. C5-C6: Disc/ossified complex bulge with mild spinal canal stenosis. Facet and uncinate hypertrophy with mild foraminal stenosis bilaterally. C6-C7: Disc/osteophyte complex bulge with mild spinal canal narrowing. Facet and uncinate hypertrophy with mild bilateral foraminal stenosis. C7-T1: Canal and foramina are patent. DIVISION OF RADIOLOGY Provider, [facility] - 10/06/2024 * * *Final Report* * * DATE OF EXAM: Oct 06 2024 12:08PM [facility] 0505 - CT CERVICAL SPINE WO IVCON / PROCEDURE REASON: Spinal stenosis of cervical region * * * * Physician Interpretation * * * * EXAMINATION: CT CERVICAL SPINE WO IVCON CLINICAL HISTORY: Spinal stenosis of cervical region TECHNIQUE: Spiral, high resolution axial unenhanced images were obtained from the skull base to the cervicothoracic junction with sagittal and coronal planar reconstructions. MQ: CTCSPWO_5 CT Radiation dose: Integrated CT Dose-Length Product (DLP) for this visit = 519 mGy*cm CT Dose Reduction Employed: Automated exposure control(AEC) and iterative recon COMPARISON: None. RESULT: Counting reference: Craniocervical junction. Anatomic Variants: None. Gluer Machine Setup Operator (topogram) images: No additional findings. Alignment: Alignment is anatomic. Craniocervical junction: Craniocervical junction is normal. Osseous structures/fracture: No evidence of a lytic or blastic process in the visualized spine. No evidence of acute or chronic fracture. Cervical soft tissues: The paraspinal soft tissues are within normal limits. Degenerative changes: C2-C3: Facet hypertrophy with mild right foraminal stenosis. Left neural foramen is patent. Spinal canal is patent. C3-C4: Disc/osteophyte complex bulge with mild spinal canal stenosis. Facet and uncinate hypertrophy with mild bilateral foraminal stenosis, right greater than left. Right paracentral disc/osteophyte extrusion with partial effacement of the right lateral recess. C4-C5: Facet hypertrophy with moderate right and mild left foraminal stenosis. No significant canal narrowing. C5-C6: Disc/ossified complex bulge with mild spinal canal stenosis. Facet and uncinate hypertrophy with mild foraminal stenosis bilaterally. C6-C7: Disc/osteophyte complex bulge with mild spinal canal narrowing. Facet and uncinate hypertrophy with mild bilateral foraminal stenosis. C7-T1: Canal and foramina are patent. IMPRESSION IMPRESSION: Degenerative changes of the cervical spine as discussed. No severe foraminal or severe canal narrowing identified. Degenerative changes are most pronounced at C3-4 as discussed. Anatomic Variant: None. Assume 7 cervical vertebrae with counting from the craniocervical junction. Christian Education Director: PSCAnuj Transcribe Date/Time: Oct 06 2024 1:15P Dictated by : GIOVANI ABEL MD This examination was interpreted and the report reviewed and electronically signed by: GIOVANI ABEL MD on Oct 06 2024 1:18PM EST [facility] Radiology Study observation (narrative) [facility] CT Cervical spine WO contras tOrdered By: Ccf Provider on 10-06-2024 [facility] PT D/C Summary (1)on [facility] PT D/C Summary (1) [facility] Physical Therapy [facility] [address] [place] [address] [address] [place] [address] / REHABILITATION SERVICES DISCHARGE SUMMARY MR#: [id number] Acct: [id number] Name: PARKER YI Rep #: [id number] : 1950 74 From: Naif Damian PT, ATC Referring DrMerrick: VERO Martínez Status: REG RCR Insurance: MEDICARE PART A B [facility] Discharge Summary D/C summary: It has been my pleasure to treat PARKER YI referred by VERO Hall, with the diagnosis of Neck pain for a total of 3 visit(s). Discharge Date: Please see the following information for a summary of their discharge status. Subjective Subjective: Pt reports he feels stronger overall, and is Pleased with his progress with every aspect but pain. Pt notes no change in his R neck pain Pain Neck pain: Pain Intensity (Out of 10): 4 Objective Objective/Function: Pt is still very limited with B cervical spine rotation. Pain has remained the same Goals Goal 1:: I with HEP in one week Goal Progress: Goal Met Goal 2:: Decrease neck pain x 50% to aid with IADL's Goal Progress: Not Progressing Goal 3:: Increase R c/s rotation to within normal limits to aid with IADL's Goal Progress: Not Progressing Plan Plan: Discontinue Rx at this time and return to doctor D/C Information d/c sentence: If there are questions or concerns regarding this patient's physical therapy, please feel free to call me at [phone]. Thank you for the referral of this patient. Sincerely, Naif Damian PT, ATC 09/26/24 1435 CC: VERO Martínez; Dr. Davis May MD [facility] Signed Normal [facility] Inital Evaluation (1) - PTon 08-21-2024 Inital Evaluation (1) - PT [facility] Physical Therapy [facility] [address] [place] [address]. [address] [place] [address] / REHABILITATION SERVICES INITIAL EVALUATION MR#: [id number] Acct: [id number] Name: PARKER YI Rep #: [id number] : 1950 74 From: Naif Damian PT, ATC Referring Dr.: VERO Hall Status: REG RCR Insurance: MEDICARE PART A B [facility] Patient's Visit Information Visit Information Visit Information: PARKER YI is a 74 year old M referred to Physical Therapy by VERO Hall with a diagnosis of Neck pain. Date of Evaluation: 08/21/24 Physical Therapist: Naif Damian PT, ATC Visit Plan Frequency: 1x/Week Duration: 1 Week Plan: Pt was issued cervical spine protraction ex's for a HEP. Follow up in 1 week to assess benefit. Add DTR and mobs if needed for pain. Subjective Subjective: Pt reports he has had neck pain for approximately 2 weeks. Pt reports he woke up one morning with severe pain. Pt denies any prior Hx of neck pain. Pt reports the pain has lessened some since the initial episode, but he continues to have difficulty with turning his head. Pt denies any tingling or numbness in his UE's this date. Pt denies sleep difficulty at this time, although he did have to sleep in a recliner when the pain first started. Pt reports he had xrays which revealed no significant findings. Pt reports he has seen a chiropractor which has not made any difference at this time. Pt reports turning his head to the right is what causes him the most pain. 1/10 pain while sitting here in the clinic, 8/10 pain at worst. Pain Neck pain: Pain Intensity (Out of 10): 1 Pain Intensity Range: 8 Objective Objective: Neuro: B UE sensation is WNL to light touch. Palpation: Pt has significant muscle guarding [id number] cervical spine. No deformities noted. MMT: B UE's are equal and strong throughout ROM: Pt is moderately limited with B sidebend, extension, and R rotation. Pt is minimally limited with retraction Repeated movements: RRIS 10x1 significant increase in pain. 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 For Medicare and Medicare HMO plans, please review the plan of care and approve it. It will need to be FAXED BACK to us at [phone] for Medicare purposes. For Medicare only, by signing this I certify the plan of care. Please let me know if there are questions or concerns regarding this plan of care. Physician Signature: _Date: 08/21/24 1504 CC: VERO Martínez; Dr. Davis May MD [facility] Signed Normal [facility] Emergency Department Summary on 08-06-2024 Emergency Department Summary [facility] Medical Records Department [address] [place] [address] Emergency Department Summary 08/06/24 MR#: [id number] Acct: [id number] Name: PARKER YI Rep #: [id number] : 1950 74 From: Hay Rodríguez DO PCP: Dr. Davis May MD Status:DEP ER Location: ED HPI History of Present Illness Chief Complaint: Other, Pain/Inj Narrative Narrative: Chief complaint and HPI: 74-year-old male with past medical history of GERD, autoimmune hepatitis, cardiomyopathy presents for evaluation of right-sided neck pain. Patient states that he golfed yesterday which has not abnormal for him. He states he woke up this morning with right-sided neck pain. Pain goes into the upper trapezius distribution as well. He denies any trauma. Denies any neurological deficits, weakness, numbness/tingling. Patient has tried ice and heat with little relief. He denies any fever, chills, shortness of breath, chest pain. He has not tried Tylenol or ibuprofen as he states he is not allowed to take this. Review of systems: See HPI Medications: As listed on the chart Allergies: As listed on the chart PFSH: Per chart Vital signs: As listed on the chart. Reviewed. Physical exam: Gen: A O x3, NAD Head: Normocephalic, atraumatic Eyes: No sclera icterus, conjunctiva clear, PERRL, EOMI ENT: Moist mucous membrane Neck: Trachea midline, No JVD, no midline spinal tenderness, no bony step-offs, tender to palpation in the paraspinal musculature of the cervical spine on the right as well as into the trapezius muscle-reproduces his pain, no rash CV: RRR, no murmurs Resp: Lungs CTA BL, no w/r/c Musc: Full ROM, no deformity, no spinal TTP, no ezekiel step-offs, bilateral radial pulses +2 Skin: Warm, dry, intact Neuro: Alert, oriented, grossly intact, sensation intact Psych: Cooperative, appropriate mood and affect [facility] Medical History (Updated 08/06/24 @ 23:[address] Hay Rodríguez, DO) Portal vein thrombosis Esophageal varices GERD (gastroesophageal reflux disease) HTN (hypertension) Hypertrophic cardiomyopathy Autoimmune hepatitis History of immunosuppression therapy Thrombocytopenia Home Medications ???Medication ???Instructions ???Recorded ???Last Taken ???Type clonidine HCl 0.1 mg tablet 1.5 tab PO BID 08/20/19 Unknown Hi story tacrolimus 1 mg capsule, 1 mg PO BID supplement 08/20/19 Un known History immediate-release amlodipine 5 mg tablet 5 mg PO DAILY blood pressure 03/27 Unknown History metoprolol succinate 100 mg 100 mg PO Q12H heart 03/27/23 Unkn own History tablet,extended release 24 hr 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 Instructions: Hold for 7 days. Follow-up with Dr. Bear. probenecid 500 mg tablet 500 mg PO BID gout 03/27/23 Unknow n History pantoprazole 40 mg tablet,delayed 40 mg PO BID #60 tabs 03/29/23 Un known Rx release (Protonix) cyclobenzaprine 5 mg tablet 5 mg PO TID PRN muscle spasm 3 Unknown Rx days #9 tabs Allergy/AdvReac Type Severity Reaction Status Date / Time acetaminophen (From Vicodin) Allergy Anaphylaxis Verified 03/27/23 17:55 hydrocodone (From Vicodin) Allergy Anaphylaxis Verified 03/27/23 17:55 lidocaine Allergy Rash Verified 08/06/24 22:41 NSAIDS (Non-Steroidal Allergy Other Verified 08/06/24 22:44 Anti-Inflamma oxycodone Allergy Anaphylaxis Verified 08/06/24 22:44 Social History Smoking Status: Former smoker EXAM Physical Exam Const Vital Signs: 08/06/24 22:41 08/06/24 22:53 08/06/24 23:04 Temperature 97.9 F 98.2 F Temperature Source Temporal Pulse Rate 68 67 Respiratory Rate 18 18 Respiratory Effort Normal Non-Labored Respiratory Pattern Normal Blood Pressure 174/85 H 153/89 H Blood Pressure Mean 114 110 Pulse Ox 96 94 Oxygen Delivery Method Room Air MDM MDM MDM Narrative Medical decision making narrative: 74-year-old male with past medical history of GERD, autoimmune hepatitis, cardiomyopathy presents for evaluation of right-sided neck pain. Denies any trauma. Did golf yesterday. Woke up with the pain today. See physical exam findings. Based on physical exam, I suspect that this is a muscle spasm. Patient has had no trauma to suspect cervical fracture. No infectious symptoms. I do not think any imaging or laboratory workup is needed. Patient states that he is not allowed to have Tylenol or ibuprofen. He states that he cannot take any narcotic except for morphine. IM morphine ordered with muscle relaxer, Flexeril. On reevaluation, patient's pain has improved. Originally was severe and now a 3 out of 10. Patient stable (more content not included)... Normal [facility] CRYOTHERAPY SKIN LESIONon Complexity: simple Destruction method: cryotherapy Informed consent: discussed and consent obtained Timeout: patient name, date of , surgical site, and procedure verified Lesion destroyed using liquid nitrogen: Yes Cryotherapy cycles: 2 Outcome: patient tolerated procedure well with no complications Post-procedure details: wound care instructions given [facility] CBC W Auto Differential pane l (Bld)on 07-14-2024 Basophils (Bld) [#/Vol] [facility] Basophils/100 WBC (Bld) 0.3 % [facility] Differential cell count method Nom (Bld) Auto [facility] Eosinophils (Bld) [#/Vol] 0.06 10*3/uL [facility] Eosinophils/100 WBC (Bld) 1.6 % [facility] Erythrocyte distribution width (RBC) [Ratio] 14.1 % 11.5 - 15.0 % [facility] Hematocrit (Bld) [Volume fraction] 39.5 % 39.0 - 51.0 % [facility] Hemoglobin (Bld) [Mass/Vol] 13.3 g/dL 13.0 - 17.0 g/dL [facility] Immature granulocytes (Bld) [#/Vol] [facility] Immature granulocytes/100 WBC (Bld) 0 % [facility] Interpretation and review of laboratory results Abnormal [facility] Lymphocytes (Bld) [#/Vol] 0.76 10*3/uL Low [facility] Lymphocytes/100 WBC (Bld) 19.6 % [facility] MCH (RBC) [Entitic mass] 31 pg 26.0 - 34.0 pg [facility] MCHC (RBC) [Mass/Vol] 33.7 g/dL 30.5 - 36.0 g/dL [facility] MCV (RBC) [Entitic vol] 92.1 fL 80.0 - 100.0 fL [facility] Monocytes (Bld) [#/Vol] 0.28 10*3/uL NINF [facility] Monocytes/100 WBC (Bld) 7.2 % [facility] Neutrophils (Bld) [#/Vol] 2.76 10*3/uL [facility] Neutrophils/100 WBC (Bld) 71.3 % [facility] Nucleated RBC (Bld) [#/Vol] NINF [facility] Nucleated RBC/100 WBC (Bld) [Ratio] 0 % /100 WBC [facility] Platelet mean volume (Bld) [Entitic vol] 12.2 fL 9.0 - 12.7 fL [facility] Platelets (Bld) [#/Vol] 52 10*3/uL Low [facility] Comment on above: Results checked and verified.No clot detected. RBC (Bld) [#/Vol] 4.29 10*6/uL 4.20 - 6.00 m/uL [facility] WBC (Bld) [#/Vol] 3.87 10*3/uL [facility] FERRITINon 07-14-2024 Ferritin [Mass/Vol] 82.1 ng/mL 30.3 - 565.7 ng/mL [facility] Ferritin [Mass/Vol]on 2024 Interpretation and review of laboratory results Normal [facility] Iron and Iron binding capaci ty panelon 07-14-2024 Interpretation and review of laboratory results Normal [facility] Iron [Mass/Vol] 92 ug/dL 41 - 186 ug/dL [facility] Iron binding capacity [Mass/Vol] 267 ug/dL 232 - 386 ug/dL [facility] Iron/TIBC [Molar ratio] 34.5 % 15.0 - 57.0 % [facility] HEMOGLOBIN A1C (POC)on 07-05 HbA1c (Bld) [Mass fraction] 7.1 % Abnormal 4.3 - 5.6 % [facility] Comment on above: Location:[facility], [address], [place], [address] Point of care (POC) Hemoglobin A1c (HGBA1C) testing is intended to assess glucose control and provide a management tool for patients known to have diabetes and their healthcare providers. Target HGBA1C levels may depend on specific clinical circumstances. POC HGBA1C is not intended for use as a diagnostic or screening test; laboratory-based testing should be used for diagnostic purposes. The following information is supplemental and may not be applicable to specific diabetes management situations: The POC device custom decorating consultant provides a normal range of 4.2% to 6.5% for the HGBA1C POC test. However, the [employer] guidelines indicate that patients with HGBA1C in the range of 5.7% to 6.4% are at increased risk for development of diabetes and that intervention by lifestyle modification may be beneficial. A HGBA1C level greater than or equal to 6.5% is considered diagnostic of diabetes, pending confirmatory testing. Use of HGBA1C testing to evaluate glucose control may not be appropriate for patients with hemoglobin variants or other conditions (e.g. anemia) that alter red blood cell lifespan. Interpretation and review of laboratory results Abnormal [facility] ECHOon 06-06-2024 CONCLUSIONS: - Exam indication: HOCM - The left ventricle is normal in size. There is eccentric left ventricular hypertrophy. Left ventricular systolic function is hyperdynamic. EF = 80 5% (2D biplane) Definity contrast used for endocardial border detection. - The right ventricle is normal in size. Right ventricular systolic function is normal. - The left atrial cavity is mildly dilated. - Estimated right ventricular systolic pressure is likely underestimated due to a weak or incomplete tricuspid regurgitation signal and is, at least, 26 mmHg consistent with normal pulmonary artery pressures. Estimated right atrial pressure is 8 mmHg based on IVC assessment. - Rest (54 bpm): Moderate PATRICIA, 1-2+ MR, peak LVOT gradient 24 mmHg. - Valsalva (61 bpm): Severe PATRICIA, increase in MR, LVOT gradient increased to 64 mmHg. - Exam was compared with the prior echocardiographic exam performed on 04/15/2023. LVOT gradients with valsalva are significantly higher on today's exam. * * * Final * * * [facility] Echocardiography Report: Transthoracic Echo [facility] Date of service: 06/06/2024 9:48:49 AM ATTENDANT Ordering physician: NOVA SHAHID Indication: HOCM Technologist: Aide Bowens RD Interpreting physician: Ahmet Mccray MD PATIENT: Name: MR. MATEUS YI : 1950 Age: 74 years Gender: M Primary rhythm: sinus. Height: 182.90 cm BSA: 1.99 m Weight: 78.02 kg BMI: 23.3 kg/m Heart rate 57 bpm IV discontinued (right forearm); site within normal limits. Color Doppler was utilized to interrogate the cardiac valves assessed and spectral Doppler was utilized to determine the flow velocities and pressure gradients reported in this exam. MEASUREMENTS: Value Indexed Normal Max aortic dimension 3.7 cm Ao < 3.8 Left atrial volume 79 ml (biplane A-L) 39 ml/m Tyler <= 34 LV ID (diastole) 4.6 cm (2D) 2.30 cm/m LV ID (systole) 2.5 cm (2D) 1.26 cm/m IVS, leaflet tips 1.6 cm (2D) Posterior wall thickness 1.3 cm (2D) Left ventricular mass 277 g (2D) 139 g/m LV stroke volume 66 ml (2D biplane) LV end diastolic volume 83 ml (2D biplane) 41.6 ml/m 34<=EDVi<75 LV end systolic volume 16 ml (2D biplane) 8.2 ml/m Ejection Fraction 80 % (2D biplane) EF > 52 FINDINGS: LEFT VENTRICLE The left ventricle is normal in size. There is eccentric left ventricular hypertrophy. Left ventricular systolic function is hyperdynamic. Left ventricular diastolic function was not evaluated due to inconsistent or technically suboptimal data. Mitral annular lateral E/e': 5.5. Mitral annular septal E/e': 12.9. Definity contrast used for endocardial border detection. Wall Motion: All scored segments are normal. Wall Thickness: The entire apex is abnormally thickened. RIGHT VENTRICLE The right ventricle is normal in size. Right ventricular systolic function is normal. RV systolic tissue Doppler velocity is 7.0 cm/s. Tricuspid annular displacement is 1.0 cm. Estimated right ventricular systolic pressure is likely underestimated due to a weak or incomplete tricuspid regurgitation signal and is, at least, 26 mmHg consistent with normal pulmonary artery pressures. Estimated right atrial pressure is 8 mmHg based on IVC assessment. LEFT ATRIUM The left atrial cavity is mildly dilated. Pulmonary Veins: The pulmonary venous pattern showed normal systolic flow. RIGHT ATRIUM The right atrial cavity is normal in size. Inferior Vena Cava: The inferior vena cava appears normal measuring 2.0 cm. The vessel decreases less than 50 percent with inspiration. MITRAL VALVE There is mild (1+ - 2+) mitral valve regurgitation. There is mild thickening. The pressure half time is 80 msec. The peak mitral E/A ratio is 0.83. The average mitral E/e' ratio is 9.2. The mitral flow deceleration time is 275 msec. TRICUSPID VALVE The tricuspid valve leaflets are structurally normal. There is trace tricuspid valve regurgitation. The hepatic venous pattern showed normal systolic flow. AORTIC VALVE The aortic valve cusps are structurally normal. There is no aortic valve regurgitation. Tricuspid aortic valve. PULMONIC VALVE There is trace pulmonic valve regurgitation. There is no thickening. AORTA The visualized aorta is normal in size. Measurements - Mid ascending aorta 3.7 cm. PULMONARY ARTERIES The pulmonary arteries are unseen or not interrogated. INTERATRIAL SEPTUM There is no evidence of intracardiac shunting as detected by Doppler. INTERVENTRICULAR SEPTUM There is no flow through the interventricular septum as detected by Doppler. PERICARDIUM There is no pericardial effusion. [facility] LVEF TRANSTHORACIC ECHOon LV Ejection Fraction 80 % [facility] Comment on above: (2D biplane) EF > 52 An LV Ejection Fraction of > 50% is normal No Panel Informationon 06-06 [facility] AMMONIAon 05-19-2024 Ammonia (P) [Moles/Vol] 34 umol/L 16 - 60 umol/L [facility] Ammonia (P) [Moles/Vol]on Interpretation and review of laboratory results Normal [facility] Lipid 1996 panelon 5 Cholesterol [Mass/Vol] 187 mg/dL [facility] 200 mg/dL [facility] Comment on above: <200 mg/dL, Desirabl e 200-239 mg/dL, Borderline high >239 mg/dL, High Cholesterol in HDL [Mass/Vol] 83 mg/dL 39 - PINF mg/dL [facility] Comment on above: 40-59 mg/dL, Accepta ble >59 mg/dL, High: Negative risk factor for coronary heart disease <40 mg/dL, Low: Positive risk factor for coronary heart disease Cholesterol in LDL [Mass/Vol] 89 mg/dL NINF - 100 mg/dL [facility] Comment on above: <100 mg/dL, Optimal 100-129 mg/dL, Near optimal/above optimal 130-159 mg/dL, Borderline high 160-189 mg/dL, High >189 mg/dL, Very high Secondary prevention optimal LDL Cholesterol levels are recommended to be < 70 mg/dL Cholesterol in LDL/Cholesterol in HDL [Mass ratio] 1.07 {ratio} NINF - 2.54 [facility] Comment on above: Reference: 1. National Cholesterol Education Program ATP III Guideline At-A-Glance Quick Desk Reference: National Heart, Lung, and Blood [place]. National Institutes of Health. 2001: NIH Publication No. 01-3305. 2. An International Atherosclerosis Society position paper: global recommendations for the management of dyslipidemia: executive summary, Atherosclerosis. 2014: 232(2):410-413. Cholesterol in VLDL [Mass/Vol] 15 mg/dL NINF - 30 mg/dL [facility] Cholesterol non HDL [Mass/Vol] 104 mg/dL NINF - 130 mg/dL [facility] Comment on above: <130 mg/dL, Optimal 130-159 mg/dL, Near optimal/above optimal 160-189 mg/dL, Borderline high 190-219 mg/dL, High >219 mg/dL, Very high Secondary prevention optimal non HDL Cholesterol levels are recommended to be <100 mg/dL Cholesterol.total/Cho lesterol in HDL [Mass ratio] 2.25 {ratio} NINF - 5.10 [facility] Fasting Time 12 hrs [facility] Triglyceride [Mass/Vol] 76 mg/dL NINF - 150 mg/dL [facility] Comment on above: <150 mg/dL, Normal 150-199 mg/dL, Borderline high 200-499 mg/dL, High >499 mg/dL, Very high [facility] CNOVon 04-24-2024 CNOV Office Visit (URCANT ) MATEUS YI ([id number]) 1950 M Date Time Provider Department 04/24/24 1:30 PM LORA THOMAS URCANMartin During your visit today, we recorded the following information about you: Pulse Respiration Blood pressure 60/minute 18/minute 160/90 Lora Thomas MD 04/24/2024 1:48 PM Signed [facility] NEW PATIENT HISTORY AND PHYSICAL EXAMINATION PATIENT: Mateus Yi (74 year old) PCP: Davis May MD SUMMARY: Referred for microscopic hematuria. Urinalyses reviewed: mod blood, no micro run (04/14/24), small blood, no micro run (04/12/24), no blood, no RBCs (03/30/24). #PMH sig for cirrhosis. *BT=Eliquis for portal vein thrombosis. Assessment AND Plan Abnormal urinalysis Orders: UA DIP, URINE (POC) URINALYSIS, WITH MICROSCOPIC New, undiagnosed. The urinalysis results were personally reviewed with the patient, and their significance was discussed. I counseled the patient that a positive urine dipstick for blood does not constitute hematuria and that further testing with urine microscopy must be performed to confirm the presence of blood. Based on the positive urine dipstick for blood today, I will send the urine sample for microscopic analysis. If 3 or more RBCs are present per high-power field, then I recommend proceeding with a microhematuria work up, including cystoscopy and CT urogram. The risks of cystoscopy, including bleeding, infection, and discomfort were discussed. If the urine microscopy does not show microhematuria... We discussed that microscopic hematuria is associated with a small (5%) but significant risk of urologic malignancy. Therefore, if the patient develops microscopic hematuria (defined as 3 or more RBCs per high-power field in the absence of UTI) in the future, please refer the patient back to me for further evaluation. (MJM) FOLLOW UP: No follow-ups on file. CHIEF COMPLAINT: Patient presents with: New Patient: Microscopic hematuria HISTORY OF PRESENT ILLNESS: I personally reviewed the patient's past medical records. I personally reviewed the prior radiology images, and my findings were discussed with the patient. He denies gross hematuria. DAYANA/AUASS FORMS No question data found. REVIEW OF SYSTEMS: Noncontributory ALLERGIES: ALLERGIES Allergen Reactions Percocet [Oxycodone* Other: See Comments Pt states he doesn't have an allergy to percocet, but because of his reaction to Vicodin, he avoids it. Vicodin [Hydrocodon* Anaphylaxis stopped breathing Hibiscus Hives, Shortness of Breath Valsartan Myalgia Cramps in legs, muscle pain Lidocaine Other: See Comments Dizziness, profuse sweating with application of topical lidocaine patch to abdomen; symptoms resolved with removal of patch. MEDICATIONS: carvedilol (COREG) 12.5 mg tablet TAKE 1 TABLET BY MOUTH TWICE DAILY WITH MEALS tacrolimus IR (PROGRAF) 1 mg capsule Take 1 capsule by mouth two times a day. cloNIDine HCl (CATAPRES) 0.1 mg tablet Take 1 tablet by mouth three times a day. apixaban (ELIQUIS) 5 mg tab(s) Take 2 tablets by mouth two times a day for 6 days, THEN 1 tablet two times a day. mycophenolate Mofetil (CELLCEPT) 500 mg tablet Take 1 tablet by mouth twice daily glipiZIDE (GLUCOTROL XL) 5 mg 24 hr tablet Take 1 tablet by mouth once daily. amLODIPine (NORVASC) 5 mg tablet Take 1 tablet by mouth once daily. Blood-Glucose Sensor ([employer] G7 SENSOR) wilmer CHANGE SENSOR EVERY 10 days. USE FOR CONTINOUS GLUCOSE MONITORING. INSULIN USE. E11.9 OTC NUTRITIONAL SUPPLEMENT Take by mouth as directed. cholecalciferol, vitamin D3, (VITAMIN D3 ORAL) Take 1 tablet by mouth three times a week. Lactobacill 46-B.animal-inulin (PROBIOTIC-10, WITH INULIN,) 10 billion cell -100 mg cap Take 1 tablet by mouth once daily. pantoprazole DR (PROTONIX) 40 mg tablet Take 1 tablet by mouth two times a day. 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 Normal [facility] UA DIP, URINE (POC)on 2024 BILIRUBIN UA (POCT) Negative Negative [facility] CLARITY UA (POCT) Clear [facility] COLOR UA (POCT) Yellow [facility] GLUCOSE UA (POCT) Negative Negative mg/dL [facility] Hemoglobin Ql (U) Trace-lysed Abnormal Negative [facility] Interpretation and review of laboratory results Abnormal [facility] KETONE UA (POCT) Negative Negative mg/dL [facility] LEUKOCYTES UA (POCT) Negative Negative [facility] NITRITE UA (POCT) Negative Negative [facility] PH UA (POCT) 5.5 4.5 - 8.0 [facility] Protein Ql (U) >=300 Abnormal Negative mg/dL [facility] SPECIFIC GRAVITY UA (POCT) 1.015 1.005 - 1.030 [facility] UROBILINOGEN UA (POCT) 0.2 Normal E.U./dL [facility] Location:[facility], [address] [place] [address], [address] [facility] POINT OF CARE [facility] Urinalysis complete panel (U )on 04-24-2024 Bacteria LM.HPF (Urine sed) [#/Area] None Seen None Seen /HPF [facility] Bilirubin Ql (U) Negative Negative [facility] Clarity (Unsp spec) Clear Clear [facility] Color (U) Yellow Yellow [facility] Epithelial cells LM.HPF (Urine sed) [#/Area] None Seen /HPF [facility] Glucose Test strip (U) [Mass/Vol] Negative Negative [facility] Hemoglobin Ql (U) 1+ Abnormal Negative [facility] Hyaline casts (Urine sed) [#/Area] 1-3 /LPF Abnormal 0 /LPF [facility] Interpretation and review of laboratory results Abnormal [facility] Ketones Ql (U) Negative Negative [facility] Leukocyte esterase Test strip Ql (U) Negative Negative [facility] Nitrite Ql (U) Negative Negative [facility] pH (U) 5.0 [pH] 5.0 - 8.0 [facility] Protein (U) [Mass/Vol] 2+ Abnormal Negative [facility] RBC LM.HPF (Urine sed) [#/Area] 0-3 /HPF 0-3 /HPF [facility] Specific gravity (U) [Rel density] 1.012 1.005 - 1.030 [facility] Urobilinogen Ql (U) Negative Negative [facility] WBC LM.HPF (Urine sed) [#/Area] 0-5 /HPF 0-5 /HPF [facility] Bacteria LM.HPF (Urine sed) [#/Area] None Seen Normal None Seen [facility] Comment on above: Order Comment: Speci men Type: URINE SPECIMEN Ordering Facility: [facility] Address: [address] [place] [address] Performed By: #### 2 4356-8 #### [facility] CLIA [id number] [address] [place] [address] [place] Bilirubin Ql (U) Negative Normal Negative [facility] Comment on above: Order Comment: Speci men Type: URINE SPECIMEN Ordering Facility: [facility] Address: [address] [place] [address] Performed By: #### 2 4356-8 #### [facility] CLIA [id number] [address] [place] [address] [place] Clarity (Unsp spec) Clear Normal Clear [facility] Comment on above: Order Comment: Speci men Type: URINE SPECIMEN Ordering Facility: [facility] Address: [address] [place] [address] Performed By: #### 2 4356-8 #### [facility] CLIA [id number] [address] [place] [address] [place] Color (U) Yellow Normal Yellow [facility] Comment on above: Order Comment: Speci men Type: URINE SPECIMEN Ordering Facility: [facility] Address: [address] [place] [address] Performed By: #### 2 4356-8 #### [facility] CLIA [id number] [address] [place] [address] [place] Epithelial cells LM.HPF (Urine sed) [#/Area] None Seen Normal [facility] Comment on above: Order Comment: Speci men Type: URINE SPECIMEN Ordering Facility: [facility] Address: [address] [place] [address] Performed By: #### 2 4356-8 #### [facility] CLIA [id number] [address] [place] [address] [place] Glucose Test strip (U) [Mass/Vol] Negative Normal Negative [facility] Comment on above: Order Comment: Speci men Type: URINE SPECIMEN Ordering Facility: [facility] Address: [address] [place] [address] Performed By: #### 2 4356-8 #### [facility] CLIA [id number] [address] [place] [address] [place] Hemoglobin Ql (U) 1+ Abnormal Negative [facility] Comment on above: Order Comment: Speci men Type: URINE SPECIMEN Ordering Facility: [facility] Address: [address] [place] [address] Performed By: #### 2 4356-8 #### [facility] CLIA [id number] [address] [place] [address] [place] Hyaline casts (Urine sed) [#/Area] 1-3 /LPF Abnormal 0 /LPF [facility] Comment on above: Order Comment: Speci men Type: URINE SPECIMEN Ordering Facility: [facility] Address: [address] [place] [address] Performed By: #### 2 4356-8 #### [facility] CLIA [id number] [address] [place] [address] [place] Ketones Ql (U) Negative Normal Negative [facility] Comment on above: Order Comment: Speci men Type: URINE SPECIMEN Ordering Facility: [facility] Address: [address] [place] [address] Performed By: #### 2 4356-8 #### [facility] CLIA [id number] [address] [place] [address] Leukocyte esterase Test strip Ql (U) Negative Normal Negative [facility] Comment on above: Order Comment: Speci men Type: URINE SPECIMEN Ordering Facility: [facility] Address: [address] [place] [address] Performed By: #### 2 4356-8 #### [facility] CLIA [id number] [address] [place] [address] [place] Nitrite Ql (U) Negative Normal Negative [facility] Comment on above: Order Comment: Speci men Type: URINE SPECIMEN Ordering Facility: [facility] Address: [address] [place] [address] Performed By: #### 2 4356-8 #### [facility] CLIA [id number] [address] [place] [address] [place] pH (U) 5.0 [pH] Normal 5.0-8.0 [facility] Comment on above: Order Comment: Speci men Type: URINE SPECIMEN Ordering Facility: [facility] Address: [address] [place] [address] Performed By: #### 2 4356-8 #### [facility] CLIA [id number] [address] [place] [address] [place] Protein (U) [Mass/Vol] 2+ Abnormal Negative [facility] Comment on above: Order Comment: Speci men Type: URINE SPECIMEN Ordering Facility: [facility] Address: [address] [place] [address] Performed By: #### 2 4356-8 #### [facility] CLIA [id number] [address] [place] [address] [place] RBC LM.HPF (Urine sed) [#/Area] 0-3 /HPF Normal 0-3 /HPF [facility] Comment on above: Order Comment: Speci men Type: URINE SPECIMEN Ordering Facility: [facility] Address: [address] [place] [address] Performed By: #### 2 4356-8 #### [facility] CLIA [id number] [address] [place] [address] [place] Specific gravity (U) [Rel density] 1.012 Normal 1.005-1.03 0 [facility] Comment on above: Order Comment: Speci men Type: URINE SPECIMEN Ordering Facility: [facility] Address: [address] [place] [address] Performed By: #### 2 4356-8 #### [facility] CLIA [id number] [address] [place] [address] [place] Urobilinogen Ql (U) Negative Normal Negative [facility] Comment on above: Order Comment: Speci men Type: URINE SPECIMEN Ordering Facility: [facility] Address: [address] [place] [address] Performed By: #### 2 4356-8 #### [facility] CLIA [id number] [address] [place] [address] [place] WBC LM.HPF (Urine sed) [#/Area] 0-5 /HPF Normal 0-5 /HPF [facility] Comment on above: Order Comment: Speci men Type: URINE SPECIMEN Ordering Facility: [facility] Address: [address] [place], [place] [address] [address] Performed By: #### 2 4356-8 #### [facility] CLIA [id number] [address] [place] [address] [place] Cryoglobulins, Serumon 04-20 CRYOGLOBULIN,S Comment Normal None detected [facility] Comment on above: Order Comment: Test( s) 887067-Obgnaepsmtuw, Ql, Serum, Rflx was developed and its performance characteristics determined by [facility]. It has not been cleared or approved by the Food and Drug Administration. Result Comment: None Detected at 72 hours Performed at: [facility] [id number] Senior Pharmacy Technician: Avery Hinojosa PhD, Phone: [phone] Performed By: #### L 3200.1200, L3200.0100 #### [facility] [address] [place], [place], [address] MADHAV RESULT,S Comment Abnormal . [facility] Comment on above: Order Comment: Test( s) [id number]-Aedtooldhzba, Ql, Serum, Rflx was developed and its performance characteristics determined by [facility]. It has not been cleared or approved by the Food and Drug Administration. Result Comment: Immu nofixation shows a biclonal IgA protein with kappa specificity. Performed By: #### L 3200.1200, L3200.0100 #### [facility] [address] [place], [place], [address] Immunoglobulins G/A/Mon 01-3 0-2024 IMMUNOGLOB A QN 474 mg/dL High 61-437 [facility] Comment on above: Order Comment: Test( s) 365109-Jdrzelhnjjum, Ql, Serum, Rflx was developed and its performance characteristics determined by [facility]. It has not been cleared or approved by the Food and Drug Administration. N Performed By: #### L 3200.1200, L3200.0100 #### [facility] [address] [place], [address] IMMUNOGLOB G QN 1840 mg/dL High 603-1613 [facility] Comment on above: Order Comment: Test( s) 898561-Blrrrndkpfgj, Ql, Serum, Rflx was developed and its performance characteristics determined by [facility]. It has not been cleared or approved by the Food and Drug Administration. N Performed By: #### L 3200.1200, L3200.0100 #### [facility] [address] [place], [place], [address] IMMUNOGLOB M QN 104 mg/dL Normal 15-143 [facility] Comment on above: Order Comment: Test( s) 770917-Xhhqirchslmv, Ql, Serum, Rflx was developed and its performance characteristics determined by [facility]. It has not been cleared or approved by the Food and Drug Administration. N Performed By: #### L 3200.1200, L3200.0100 #### [facility] [address] [place], [place], [address] Comprehensive metabolic 2000 panelon 04-14-2024 Albumin [Mass/Vol] 4.0 g/dL 3.9 - 4.9 g/dL [facility] ALP [Catalytic activity/Vol] 198 U/L High 38 - 113 U/L [facility] ALT [Catalytic activity/Vol] 39 U/L 10 - 54 U/L [facility] Anion gap [Moles/Vol] 14 mmol/L 8 - 15 mmol/L [facility] AST [Catalytic activity/Vol] 52 U/L High 14 - 40 U/L [facility] Bilirubin [Mass/Vol] 0.8 mg/dL 0.2 - 1 .3 mg/dL [facility] Calcium [Mass/Vol] 8.7 mg/dL 8.5 - 10. 2 mg/dL [facility] Chloride [Moles/Vol] 97 mmol/L Low 98 - 10 7 mmol/L [facility] CO2 [Moles/Vol] 24 mmol/L 22 - 30 mmol/L [facility] Creatinine [Mass/Vol] 1.39 mg/dL High 0.73 - 1.22 mg/dL [facility] GFR/1.73 sq M.predicted among non-blacks MDRD (S/P/Bld) [Vol rate/Area] 53 mL/min/{1.73_m2} Low - PINF [facility] Comment on above: Estimated Glomerular Filtration Rate (eGFR) is calculated using the 2020 CKD-EPI creatinine equation. This equation utilizes serum creatinine, sex, and age as parameters. The creatinine assay has traceable calibration to isotope dilution-mass spectrometry. Refer to KDIGO guidelines for clinical interpretation. In patients with unstable renal function, e.g. those with acute kidney injury, the eGFR may not accurately reflect actual GFR. Glucose [Mass/Vol] 110 mg/dL High 74 - 99 mg/dL [facility] Comment on above: The [place] Diabete s Association (ADA) provides guidance for cutoff values for fasting glucose and random glucose. The ADA defines fasting as no caloric intake for at least 8 hours. Fasting plasma glucose results between 100 to 125 mg/dL indicate increased risk for diabetes (prediabetes). Fasting plasma glucose results greater than or equal to 126 mg/dL meet the criteria for diagnosis of diabetes. In the absence of unequivocal hyperglycemia, results should be confirmed by repeat testing. In a patient with classic symptoms of hyperglycemia or hyperglycemic crisis, random plasma glucose results greater than or equal to 200 mg/dL meet the criteria for diagnosis of diabetes. Reference: Standards of Medical Care in Diabetes 2016, [employer] Diabetes Association. Diabetes Care. 2016.39(Suppl 1). Interpretation and review of laboratory results Abnormal [facility] Potassium [Moles/Vol] 4.0 mmol/L 3.7 - 5.1 mmol/L [facility] Protein [Mass/Vol] 7.3 g/dL 6.3 - 8.0 g/dL [facility] Sodium [Moles/Vol] 135 mmol/L Low 136 - 144 mmol/L [facility] Urea nitrogen [Mass/Vol] 26 mg/dL High 9 - 24 mg/dL [facility] Serum or plasma IgA measurem ent (mass/volume)on 04-14-2024 IgA [Mass/Vol] 474 mg/dL High 61-437 [facility] Serum or plasma IgG measurem ent (mass/volume)on 04-14-2024 IgG [Mass/Vol] 1840 mg/dL High 603-1613 [facility] UA DIP, URINE (POC)on 2024 BILIRUBIN UA (POCT) Negative Negative [facility] CLARITY UA (POCT) Clear [facility] COLOR UA (POCT) Dark yellow [facility] GLUCOSE UA (POCT) Negative Negative mg/dL [facility] Hemoglobin Ql (U) Moderate Abnormal Negative [facility] Interpretation and review of laboratory results Abnormal [facility] KETONE UA (POCT) Negative Negative mg/dL [facility] LEUKOCYTES UA (POCT) Negative Negative [facility] NITRITE UA (POCT) Negative Negative [facility] PH UA (POCT) 5.5 4.5 - 8.0 [facility] Protein Ql (U) >=300 Abnormal Negative mg/dL [facility] SPECIFIC GRAVITY UA (POCT) 1.025 1.005 - 1.030 [facility] UROBILINOGEN UA (POCT) 0.2 Normal E.U./dL [facility] Location:[address], [place], [address] [facility] POINT OF CARE [facility] UA DIP, URINE (POC)on 2024 BILIRUBIN UA (POCT) Negative Negative [facility] CLARITY UA (POCT) Clear [facility] COLOR UA (POCT) Yellow [facility] GLUCOSE UA (POCT) Negative Negative mg/dL [facility] Hemoglobin Ql (U) Small Abnormal Negative [facility] Interpretation and review of laboratory results Abnormal [facility] KETONE UA (POCT) Negative Negative mg/dL [facility] LEUKOCYTES UA (POCT) Negative Negative [facility] NITRITE UA (POCT) Negative Negative [facility] PH UA (POCT) 5.5 4.5 - 8.0 [facility] Protein Ql (U) 100 mg/dL Abnormal Negative [facility] SPECIFIC GRAVITY UA (POCT) 1.020 1.005 - 1.030 [facility] UROBILINOGEN UA (POCT) 0.2 Normal E.U./dL [facility] Location:[facility] [address] [facility], [place], [address] [facility] POINT OF CARE [facility] CT Liver W contrast [place] IMPRESSION: 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 No OPTN class 5/LI-RADS 5 lesion. COMMUNICATION: Communicated with Stevan Thomas MD on 03/29/2024 12:06 PM via verbal communication. Christian Education Director: PSCB Transcribe Date/Time: Mar 29 2024 11:31A Dictated by : LINDEN CARTWRIGHT MD This examination was interpreted and the report reviewed and electronically signed by: PARKER PERSON MD on Mar 29 2024 1:55PM [facility] DIVISION OF RADIOLOGY * * *Final Report* * * DATE OF EXAM: Mar 29 2024 11:16AM [facility] [id number] LIVER W IVCON / PROCEDURE REASON: Liver disease * * * * Physician Interpretation * * * * EXAMINATION: CT ABDOMEN WITH IV CONTRAST (LIVER) CLINICAL HISTORY: Cirrhosis. Further characterize this ill-defined region in the right hepatic lobe seen on prior ultrasound. TECHNIQUE: Multiphase imaging of the abdomen was performed utilizing IV contrast. Contrast: IV: 125 ml of Omnipaque 350 Oral: none CT Radiation dose: Integrated Dose-length product (DLP) for this visit = 921 mGy*cm. CT Dose Reduction Employed: Automated exposure control (AEC) COMPARISON: US Liver 09/28/2023, CT Liver 03/11/2023. RESULT: Liver: Cirrhotic liver morphology. Lesions: No LI-RADS 5, OPTN class 5 or suspicious lesion. No lesion corresponding to the hypoechoic area liver vascular ultrasound. Stable subcentimeter low-attenuation segment VII lesion (9:17), too small to characterize but likely benign. Biliary: No bile duct dilation. Gallbladder is non dilated. Similar appearance of diffuse wall thickening, nonspecific in the setting of ascites and cirrhosis. Spleen: 15.8 cm (craniocaudally), enlarged. Calcified splenic granulomata. No mass. Pancreas: No mass or duct dilation. Adrenals: No mass. Kidneys: Benign cysts and subcentimeter low-attenuation lesions are too small to characterize but likely benign. No calculus or hydronephrosis. GI tract: No dilation or wall thickening. No pneumatosis. Lymph nodes: Stable 1.1 cm periportal node (9:47). No new or enlarging abdominal lymphadenopathy. Mesentery/Peritoneum: Trace ascites. No mass. Retroperitoneum: No mass. Vasculature: - Abdominal aorta: Patent. Atherosclerotic calcifications without aneurysm. - Portal venous system (SMV, splenic vein, portal vein and branches): Nonocclusive, nonenhancing thrombus extending from the SMV into the main portal vein and the right anterior, right posterior and left intrahepatic portal veins. Splenic vein is patent. - Celiac and SMA: Patent. No stenosis. - Hepatic artery: Patent. Conventional anatomy. - Hepatic veins: Patent. - Collaterals: Spontaneous splenorenal shunt: Absent Recanalized paraumbilical vein: Absent Esophageal varices: Absent Mesenteric portosystemic collaterals: Present Bones/Soft Tissues: Degenerative changes. Lower thorax: Unremarkable. Localizer images: No additional findings. DIVISION OF RADIOLOGY Provider, [facility] - 03/29/2024 * * *Final Report* * * DATE OF EXAM: Mar 29 2024 11:16AM [facility] [place] LIVER W IVCON / PROCEDURE REASON: Liver disease * * * * Physician Interpretation * * * * EXAMINATION: CT ABDOMEN WITH IV CONTRAST (LIVER) CLINICAL HISTORY: Cirrhosis. Further characterize this ill-defined region in the right hepatic lobe seen on prior ultrasound. TECHNIQUE: Multiphase imaging of the abdomen was performed utilizing IV contrast. Contrast: IV: 125 ml of Omnipaque 350 Oral: none CT Radiation dose: Integrated Dose-length product (DLP) for this visit = 921 mGy*cm. CT Dose Reduction Employed: Automated exposure control (AEC) COMPARISON: US Liver 09/28/2023, CT Liver 03/11/2023. RESULT: Liver: Cirrhotic liver morphology. Lesions: No LI-RADS 5, OPTN class 5 or suspicious lesion. No lesion corresponding to the hypoechoic area liver vascular ultrasound. Stable subcentimeter low-attenuation segment VII lesion (9:17), too small to characterize but likely benign. Biliary: No bile duct dilation. Gallbladder is non dilated. Similar appearance of diffuse wall thickening, nonspecific in the setting of ascites and cirrhosis. Spleen: 15.8 cm (craniocaudally), enlarged. Calcified splenic granulomata. No mass. Pancreas: No mass or duct dilation. Adrenals: No mass. Kidneys: Benign cysts and subcentimeter low-attenuation lesions are too small to characterize but likely benign. No calculus or hydronephrosis. GI tract: No dilation or wall thickening. No pneumatosis. Lymph nodes: Stable 1.1 cm periportal node (9:47). No new or enlarging abdominal lymphadenopathy. Mesentery/Peritoneum: Trace ascites. No mass. Retroperitoneum: No mass. Vasculature: - Abdominal aorta: Patent. Atherosclerotic calcifications without aneurysm. - Portal venous system (SMV, splenic vein, portal vein and branches): Nonocclusive, nonenhancing thrombus extending from the SMV into the main portal vein and the right anterior, right posterior and left intrahepatic portal veins. Splenic vein is patent. - Celiac and SMA: Patent. No stenosis. - Hepatic artery: Patent. Conventional anatomy. - Hepatic veins: Patent. - Collaterals: Spontaneous splenorenal shunt: Absent Recanalized paraumbilical vein: Absent Esophageal varices: Absent Mesenteric portosystemic collaterals: Present Bones/Soft Tissues: Degenerative changes. Lower thorax: Unremarkable. Localizer images: No additional findings. IMPRESSION IMPRESSION: 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 No OPTN class 5/LI-RADS 5 lesion. COMMUNICATION: Communicated with Stevan Thomas MD on 03/29/2024 12:06 PM via verbal communication. Christian Education Director: PSCB Transcribe Date/Time: Mar 29 2024 11:31A Dictated by : LINDEN CARTWRIGHT MD This examination was interpreted and the report reviewed and electronically signed by: PARKER PERSON MD on Mar 29 2024 1:55PM EST [facility] Radiology Study observation (narrative) [facility] CT Liver W contrast IVOrdere d By: [facility] Provider on 03-29-2024 [facility] Large Joint Arthro/Inj: L kn ee jointon 02-14-2024 Bobby Owusu PA-C 02/14/2024 1:01 PM Large Joint Arthro/Inj: L knee joint Informed Consent Consent Obtained: Verbal [place] Protocol A moment to CARE was completed. SIGN IN Personnel directly involved with the procedure wore the appropriate PPE. Special Equipment: N/A Patient/Surrogate Stated/Verified: Patient name, Date of , Relevant allergies and Intended procedure TIME OUT Intended patient and procedure match the source document(s). Consent documented and matches the intended procedure. Relevant labs, photos, and/or imaging studies have been reviewed. Correct side/site marked and visible. Medications required for procedure verified. No fire risk assessment and interventions applicable. 02/14/2024 11:04 AM The procedure site was prepped in the usual sterile fashion. Site: L knee joint Medications: 40 mg triamcinolone acetonide 10 mg/mL Outcome: Tolerated well, no immediate complications Post-injection instructions were reviewed with the patient and the patient voiced understanding of these instructions. SIGN OUT No specimen collected. All instruments, equipment, possible retained foreign bodies accounted for. Post-procedure follow-up management communicated and Plan of Care Visit completed when applicable [facility] CRYOTHERAPY SKIN LESIONon Complexity: simple Destruction method: cryotherapy Informed consent: discussed and consent obtained Timeout: patient name, date of , surgical site, and procedure verified Lesion destroyed using liquid nitrogen: Yes Cryotherapy cycles: 2 Outcome: patient tolerated procedure well with no complications Post-procedure details: wound care instructions given Additional details: I discussed treatment options with the patient. The risks of blistering, infection, scarring, damage to underlying structures and potential need for future procedures discussed. The patient verbalized understanding and desires us to proceed. [facility] No Panel Informationon 09-27 IMPRESSION: Cirrhosis and portal hypertension. Ill-defined hypoechoic region in the right lobe is again seen and measures slightly larger than on the prior ultrasound. This is been seen on multiple prior ultrasounds and had no correlate on multiple prior liver CTs. This may be an area of parenchymal heterogeneity rather than a true lesion although continued surveillance is recommended. Patent hepatic vessels with appropriately directed flow. Christian Education Director: PSCB Transcribe Date/Time: Sep 28 2023 11:01A Dictated by : PILAR GUAJARDO MD This examination was interpreted and the report reviewed and electronically signed by: PILAR GUAJARDO MD on Sep 28 2023 11:15AM [facility] DIVISION OF RADIOLOGY Radiology Study observation (narrative) [facility] No Panel InformationOrdered By: Ccf Provider on 09-28-2023 [facility] US.doppler Abdominal vessels on 09-28-2023 * * *Final Report* * * DATE OF EXAM: Sep 28 2023 10:19AM [facility] 1233 - US ABD LIVER VASCULAR / PROCEDURE REASON: Iron deficiency anemia due to chronic blood loss * * * * Physician Interpretation * * * * EXAMINATION: LIVER VASCULAR ULTRASOUND WITH DOPPLER IMAGING CLINICAL HISTORY: Cirrhosis. Iron deficiency anemia due to chronic blood loss. TECHNIQUE: Sonography of the liver with color and spectral Doppler imaging of the hepatic vasculature was performed. Images were obtained and stored in a permanent archive. MQ: USLV_1 COMPARISON: Liver vascular ultrasound, 02/08/2023. CT liver, 03/11/2023. RESULT: Sonographic Findings: Pancreas: Normal sonographic appearance. Portions obscured: tail Liver: Echotexture: Coarse Echogenicity: Heterogeneous Surface contour: Nodular Lesions: Vague area of decreased echogenicity in the right lobe now measures 2.7 x 2.3 x 2.0 cm, previously 2.0 x 1.9 x 1.4 cm. This had no correlate on multiple prior liver CTs. Unclear if this is a true lesion or an area of parenchymal heterogeneity. Biliary: No intrahepatic biliary duct dilation. CBD: 0.4 cm at the hilum. Gallbladder: Normal caliber -Contents: No cholelithiasis -Wall: Normal -Other: No pericholecystic fluid. Right Kidney: No hydronephrosis. Spleen: Craniocaudal length 15.6 cm, enlarged. Multiple benign calcifications but no suspicious liver lesion Other: No ascites HEPATIC VASCULATURE: PORTAL SYSTEM: -Splenic Vein: Patent with antegrade flow (towards the liver). Some apparent low level echoes near the portosplenic confluence on zavala scale imaging may be artifactual or related to slow flow as there is complete fill-in on color Doppler. -Main PV: Patent with normal, phasic antegrade flow (towards liver). 14 cm/sec -Right anterior PV: Patent with phasic antegrade flow (towards liver). -Right posterior PV: Patent with phasic antegrade flow (towards liver). -Left PV: Patent with phasic antegrade flow (towards liver). Splenorenal shunt: Not seen Recanalized paraumbilical vein: Not seen HEPATIC ARTERIES: - Main NUNN: Normal waveform PSV: 46 cm/sec. RI: 0.80 - Right anterior NUNN: Normal waveform - Right posterior NUNN: Normal waveform - Left NUNN: Normal waveform HEPATIC VEINS: -Left: Patent with triphasic waveform. -Middle: Patent with triphasic waveform. -Right: Patent with triphasic waveform. IVC: Patent with normal, phasic wave form. DIVISION OF RADIOLOGY ProviderSajancindi [facility] - 09/28/2023 * * *Final Report* * * DATE OF EXAM: Sep 28 2023 10:19AM [facility] 1233 - US ABD LIVER VASCULAR / PROCEDURE REASON: Iron deficiency anemia due to chronic blood loss * * * * Physician Interpretation * * * * EXAMINATION: LIVER VASCULAR ULTRASOUND WITH DOPPLER IMAGING CLINICAL HISTORY: Cirrhosis. Iron deficiency anemia due to chronic blood loss. TECHNIQUE: Sonography of the liver with color and spectral Doppler imaging of the hepatic vasculature was performed. Images were obtained and stored in a permanent archive. MQ: USLV_1 COMPARISON: Liver vascular ultrasound, 02/08/2023. CT liver, 03/11/2023. RESULT: Sonographic Findings: Pancreas: Normal sonographic appearance. Portions obscured: tail Liver: Echotexture: Coarse Echogenicity: Heterogeneous Surface contour: Nodular Lesions: Vague area of decreased echogenicity in the right lobe now measures 2.7 x 2.3 x 2.0 cm, previously 2.0 x 1.9 x 1.4 cm. This had no correlate on multiple prior liver CTs. Unclear if this is a true lesion or an area of parenchymal heterogeneity. Biliary: No intrahepatic biliary duct dilation. CBD: 0.4 cm at the hilum. Gallbladder: Normal caliber -Contents: No cholelithiasis -Wall: Normal -Other: No pericholecystic fluid. Right Kidney: No hydronephrosis. Spleen: Craniocaudal length 15.6 cm, enlarged. Multiple benign calcifications but no suspicious liver lesion Other: No ascites HEPATIC VASCULATURE: PORTAL SYSTEM: -Splenic Vein: Patent with antegrade flow (towards the liver). Some apparent low level echoes near the portosplenic confluence on zavala scale imaging may be artifactual or related to slow flow as there is complete fill-in on color Doppler. -Main PV: Patent with normal, phasic antegrade flow (towards liver). 14 cm/sec -Right anterior PV: Patent with phasic antegrade flow (towards liver). -Right posterior PV: Patent with phasic antegrade flow (towards liver). -Left PV: Patent with phasic antegrade flow (towards liver). Splenorenal shunt: Not seen Recanalized paraumbilical vein: Not seen HEPATIC ARTERIES: - Main NUNN: Normal waveform PSV: 46 cm/sec. RI: 0.80 - Right anterior NUNN: Normal waveform - Right posterior NUNN: Normal waveform - Left NUNN: Normal waveform HEPATIC VEINS: -Left: Patent with triphasic waveform. -Middle: Patent with triphasic waveform. -Right: Patent with triphasic waveform. IVC: Patent with normal, phasic wave form. IMPRESSION IMPRESSION: Cirrhosis and portal hypertension. Ill-defined hypoechoic region in the right lobe is again seen and measures slightly larger than on the prior ultrasound. This is been seen on multiple prior ultrasounds and had no correlate on multiple prior liver CTs. This may be an area of parenchymal heterogeneity rather than a true lesion although continued surveillance is recommended. Patent hepatic vessels with appropriately directed flow. Christian Education Director: [facility] Transcribe Date/Time: Sep 28 2023 11:01A Dictated by : PILAR GUAJARDO MD This examination was interpreted and the report reviewed and electronically signed by: PILAR GUAJARDO MD on Sep 28 2023 11:15AM [facility] US.doppler Unspecified body regionon 09-28-2023 * * *Final Report* * * DATE OF EXAM: Sep 28 2023 10:39AM [facility] 1033 - US DOPPLER COMPLETE / PROCEDURE REASON: Iron deficiency anemia due to chronic blood loss * * * * Physician Interpretation * * * * EXAMINATION: LIVER VASCULAR ULTRASOUND WITH DOPPLER IMAGING CLINICAL HISTORY: Cirrhosis. Iron deficiency anemia due to chronic blood loss. TECHNIQUE: Sonography of the liver with color and spectral Doppler imaging of the hepatic vasculature was performed. Images were obtained and stored in a permanent archive. MQ: USLV_1 COMPARISON: Liver vascular ultrasound, 02/08/2023. CT liver, 03/11/2023. RESULT: Sonographic Findings: Pancreas: Normal sonographic appearance. Portions obscured: tail Liver: Echotexture: Coarse Echogenicity: Heterogeneous Surface contour: Nodular Lesions: Vague area of decreased echogenicity in the right lobe now measures 2.7 x 2.3 x 2.0 cm, previously 2.0 x 1.9 x 1.4 cm. This had no correlate on multiple prior liver CTs. Unclear if this is a true lesion or an area of parenchymal heterogeneity. Biliary: No intrahepatic biliary duct dilation. CBD: 0.4 cm at the hilum. Gallbladder: Normal caliber -Contents: No cholelithiasis -Wall: Normal -Other: No pericholecystic fluid. Right Kidney: No hydronephrosis. Spleen: Craniocaudal length 15.6 cm, enlarged. Multiple benign calcifications but no suspicious liver lesion Other: No ascites HEPATIC VASCULATURE: PORTAL SYSTEM: -Splenic Vein: Patent with antegrade flow (towards the liver). Some apparent low level echoes near the portosplenic confluence on zavala scale imaging may be artifactual or related to slow flow as there is complete fill-in on color Doppler. -Main PV: Patent with normal, phasic antegrade flow (towards liver). 14 cm/sec -Right anterior PV: Patent with phasic antegrade flow (towards liver). -Right posterior PV: Patent with phasic antegrade flow (towards liver). -Left PV: Patent with phasic antegrade flow (towards liver). Splenorenal shunt: Not seen Recanalized paraumbilical vein: Not seen HEPATIC ARTERIES: - Main NUNN: Normal waveform PSV: 46 cm/sec. RI: 0.80 - Right anterior NUNN: Normal waveform - Right posterior NUNN: Normal waveform - Left NUNN: Normal waveform HEPATIC VEINS: -Left: Patent with triphasic waveform. -Middle: Patent with triphasic waveform. -Right: Patent with triphasic waveform. IVC: Patent with normal, phasic wave form. DIVISION OF RADIOLOGY Provider, [facility] - 09/28/2023 * * *Final Report* * * DATE OF EXAM: Sep 28 2023 10:39AM [facility] 1033 - US DOPPLER COMPLETE / PROCEDURE REASON: Iron deficiency anemia due to chronic blood loss * * * * Physician Interpretation * * * * EXAMINATION: LIVER VASCULAR ULTRASOUND WITH DOPPLER IMAGING CLINICAL HISTORY: Cirrhosis. Iron deficiency anemia due to chronic blood loss. TECHNIQUE: Sonography of the liver with color and spectral Doppler imaging of the hepatic vasculature was performed. Images were obtained and stored in a permanent archive. MQ: USLV_1 COMPARISON: Liver vascular ultrasound, 02/08/2023. CT liver, 03/11/2023. RESULT: Sonographic Findings: Pancreas: Normal sonographic appearance. Portions obscured: tail Liver: Echotexture: Coarse Echogenicity: Heterogeneous Surface contour: Nodular Lesions: Vague area of decreased echogenicity in the right lobe now measures 2.7 x 2.3 x 2.0 cm, previously 2.0 x 1.9 x 1.4 cm. This had no correlate on multiple prior liver CTs. Unclear if this is a true lesion or an area of parenchymal heterogeneity. Biliary: No intrahepatic biliary duct dilation. CBD: 0.4 cm at the hilum. Gallbladder: Normal caliber -Contents: No cholelithiasis -Wall: Normal -Other: No pericholecystic fluid. Right Kidney: No hydronephrosis. Spleen: Craniocaudal length 15.6 cm, enlarged. Multiple benign calcifications but no suspicious liver lesion Other: No ascites HEPATIC VASCULATURE: PORTAL SYSTEM: -Splenic Vein: Patent with antegrade flow (towards the liver). Some apparent low level echoes near the portosplenic confluence on zavala scale imaging may be artifactual or related to slow flow as there is complete fill-in on color Doppler. -Main PV: Patent with normal, phasic antegrade flow (towards liver). 14 cm/sec -Right anterior PV: Patent with phasic antegrade flow (towards liver). -Right posterior PV: Patent with phasic antegrade flow (towards liver). -Left PV: Patent with phasic antegrade flow (towards liver). Splenorenal shunt: Not seen Recanalized paraumbilical vein: Not seen HEPATIC ARTERIES: - Main NUNN: Normal waveform PSV: 46 cm/sec. RI: 0.80 - Right anterior NUNN: Normal waveform - Right posterior NUNN: Normal waveform - Left NUNN: Normal waveform HEPATIC VEINS: -Left: Patent with triphasic waveform. -Middle: Patent with triphasic waveform. -Right: Patent with triphasic waveform. IVC: Patent with normal, phasic wave form. IMPRESSION IMPRESSION: Cirrhosis and portal hypertension. Ill-defined hypoechoic region in the right lobe is again seen and measures slightly larger than on the prior ultrasound. This is been seen on multiple prior ultrasounds and had no correlate on multiple prior liver CTs. This may be an area of parenchymal heterogeneity rather than a true lesion although continued surveillance is recommended. Patent hepatic vessels with appropriately directed flow. Christian Education Director: ANTHONY Transcribe Date/Time: Sep 28 2023 11:01A Dictated by : PILAR GUAJARDO MD This examination was interpreted and the report reviewed and electronically signed by: PILAR GUAJARDO MD on Sep 28 2023 11:15AM EST [facility] COPPER BLOODOrdered By: Jade Ortiz on 07-12-2023 Copper [Mass/Vol] 98 ug/dL 70 - 140 ug/dL [facility] Comment on above: This test was develo ped and its performance characteristics determined by [facility] [place] ([facility]). It has not been cleared or approved by the FDA. -[facility] is regulated under CLIA as qualified to perform high-complexity testing. This test is used for clinical purposes. It should not be regarded as investigational or for research. No Panel InformationOrdered By: Chhaya Ortiz on 07-12-2023 Interpretation and review of laboratory results Normal [facility] ZINC BLDon 07-12-2023 Zinc [Mass/Vol] 66 ug/dL 60 - 120 ug/dL [facility] Comment on above: This test was develo ped and its performance characteristics determined by [facility] [place] ([facility]). It has not been cleared or approved by the FDA. [facility] is regulated under CLIA as qualified to perform high-complexity testing. This test is used for clinical purposes. It should not be regarded as investigational or for research. Nuclear Ab IA Ql (S)on 07-09 [place] Scr Qual Negative Negative [facility] Comment on above: The qualitative anti nuclear antibody screen test performed using the following antigens: dsDNA, Chromatin, Ribosomal P, SS-A 60, SS-A 52, SS-B, Sm, SmRNP, RUNNER ON A, RUNNER ON 68, Scl-70, Katerina-1, and Centromere B. Methodology: Multiplex flow immunoassay. Interpretation and review of laboratory results Normal [facility] CBC W Auto Differential pane l (Bld)on 07-09-2023 Basophils (Bld) [#/Vol] [facility] Basophils/100 WBC (Bld) 0.3 % [facility] Differential cell count method Nom (Bld) Auto [facility] Eosinophils (Bld) [#/Vol] 0.06 10*3/uL NINF [facility] Eosinophils/100 WBC (Bld) 1.5 % [facility] Erythrocyte distribution width (RBC) [Ratio] 20.3 % High 11.5 - 15.0 % [facility] Hematocrit (Bld) [Volume fraction] 36.6 % Low 39.0 - 51.0 % [facility] Hemoglobin (Bld) [Mass/Vol] 12.1 g/dL Low 13.0 - 17.0 g/dL [facility] Immature granulocytes (Bld) [#/Vol] [facility] Immature granulocytes/100 WBC (Bld) 0.3 % [facility] Lymphocytes (Bld) [#/Vol] 0.88 10*3/uL Low [facility] Lymphocytes/100 WBC (Bld) 22.6 % [facility] (RBC) [Entitic mass] 28.7 pg 26.0 - 34.0 pg [facility] MCHC (RBC) [Mass/Vol] 33.1 g/dL 30.5 - 36.0 g/dL [facility] MCV (RBC) [Entitic vol] 86.7 fL 80.0 - 100.0 fL [facility] Monocytes (Bld) [#/Vol] 0.32 10*3/uL [facility] Monocytes/100 WBC (Bld) 8.2 % [facility] Neutrophils (Bld) [#/Vol] 2.61 10*3/uL [facility] Neutrophils/100 WBC (Bld) 67.1 % [facility] Nucleated RBC (Bld) [#/Vol] [facility] Nucleated RBC/100 WBC (Bld) [Ratio] 0.0 % /100 WBC [facility] Platelet mean volume (Bld) [Entitic vol] [facility] Comment on above: Unable to Report. Platelets (Bld) [#/Vol] 60 10*3/uL Low [facility] Comment on above: No clot detected. RBC (Bld) [#/Vol] 4.22 10*6/uL 4.20 - 6.00 m/uL [facility] WBC (Bld) [#/Vol] 3.89 10*3/uL [facility] This is an appended report. These results have been appended to a previously verified report. [facility] FERRITINon 07-09-2023 Ferritin [Mass/Vol] 281.0 ng/mL 30.3 - 565.7 ng/mL [facility] FOLATE, SERUMon 07-09-2023 Folate [Mass/Vol] 17.3 ng/mL 4.7 - PINF ng/mL [facility] Ferritin [Mass/Vol]on 2023 Interpretation and review of laboratory results Normal [facility] IMMATURE PLATELET FRACTIONon 07-09-2023 Platelets reticulated/100 platelets Auto (Bld) 15.0 % High 0.9 - 7.2 % [facility] Iron and Iron binding capaci ty panelon 07-09-2023 Interpretation and review of laboratory results Normal [facility] Iron [Mass/Vol] 105 ug/dL 41 - 186 ug/dL [facility] Iron binding capacity [Mass/Vol] 276 ug/dL 232 - 386 ug/dL [facility] Iron/TIBC [Molar ratio] 38.0 % 15.0 - 57.0 % [facility] No Panel Informationon 07-08 Interpretation and review of laboratory results Normal [facility] Interpretation and review of laboratory results Abnormal [facility] RHEUMATOID FACTORon 07-09-19 Rheumatoid factor Qn NINF [facility] Rheumatoid factor Qnon 07-08 Interpretation and review of laboratory results Normal [facility] VITAMIN B12on 07-09-2023 Cobalamin (Vitamin B12) [Mass/Vol] 890 pg/mL 232 - 1245 pg/mL [facility] EGD Study observation Narrat iveon 07-06-2023 [facility] ICD REMOTE CHECKon AV Delay Adaptive Paced Minimum (ms) 300 ms [facility] AV Delay Adaptive Sensed Minimum (ms) 300 ms [facility] AV Delay Paced (ms) 200 ms [facility] AV Delay Sensed (ms) 200 ms [facility] Danilo RA Pacing Amplitude (volts) 2.0 V [facility] Danilo RA Pacing Polarity BI [facility] Danilo RA Pacing Pulse Width (ms) 0.4 ms [facility] Danilo RA Sensing Amplitude (mvolts) 0.25 mV [facility] Danilo RA Sensing Polarity BI [facility] Danilo RV Pacing Amplitude (volts) 2.0 V [facility] Danilo RV Pacing Polarity BI [facility] Danilo RV Pacing Pulse Width (ms) 0.4 ms [facility] Danilo RV Sensing Amplitude (mvolts) 0.6 mV [facility] Danilo RV Sensing Polarity BI [facility] Detection Configuration (Vent) 2 - Zone [facility] FastVT_Detection Interval 273 ms [facility] FastVT_Therapy Configuration 1 ATP(s) + 8 Shock(s) [facility] ICD FastVT DetectionStatus ENABLED [facility] ICD-AMS EPISODES 170 {beats}/min [facility] ICD-ATP Episodes (Vent) 0 [facility] ICD-ATRIALFIBRILLATIO N 1 [facility] ICD-ATRIALTACHYCARDIA 1 [facility] ICD-ATRIALTACHYCARDIA 2 [facility] ICD-ATRIALTACHYCARDIA 22 [facility] ICD-Device Mfg BSX [facility] ICD-Fast Ventricular Tachycardia 22 [facility] ICD-LEADIMPEDANCEATRI AL 525 ohm [facility] ICD-Percent Pacing (Atrial) 19 % [facility] ICD-Percent Pacing (Vent) 0 % [facility] ICD-Shocks Aborted (Vent) 0 [facility] VET-[id number] 0 [facility] ICD-SHOCKSABORTED 0 [facility] ICD-SHOCKSDELIVEREDVE NTRICULAR 0 [facility] ICD-Ventricular Fibrillation 0 [facility] Lead Impedance (RV) 451 ohm [facility] Lead Impedance High Voltage 50 ohm [facility] Lead1 Mfg BSX [facility] Lead2 Mfg GDT [facility] Location RV [facility] Location RA [facility] Lower Rate (bpm) 50 {beats}/min [facility] MDT_PROG_TACHY_ZONE_D ETECTIONS_STATUS ENABLED [facility] Model E142 ENERGEN [facility] Model 0296 [employer] Relianc e 4-Site G [facility] Model 4136 Dextrus [facility] Pacing Mode DDD [facility] Serial Number [id number] [facility] Serial Number [id number] [facility] Serial Number [id number] [facility] Test Charge Energy 11 J [facility] Test Charge Time 11.5 s [facility] Therapy Status (Vent) Enabled [facility] Thresh RA Capture Amplitude (volts) 0.5 V [facility] Thresh RA Capture Duration (ms) 0.4 ms [facility] Thresh RV Capture Amplitude (VOLTS) 0.7 V [facility] Thresh RV Capture Duration (MS) 0.4 ms [facility] Tracking Rate (bpm) 130 {beats}/min [facility] VF Zone Detection Interval 273 ms [facility] VF Zone Therapy Configuration 1 ATP(s) + 8 Shock(s) [facility] No Panel Informationon 06-25 BLANK _ [facility] ICD-ATRIALTACHYCARDIA 0 [facility] ICD-Fast Ventricular Tachycardia 0 [facility] Implant Date 08/16/2012 [facility] Absolute lymphocyte countOrd ered By: Roselia Santos on 03-29-2023 Lymphocytes Auto (Unsp spec) [#/Vol] 1.40 10*3/uL 0.83-4.51 [facility] Basophil percentageOrdered B y: Roselia Satnos on 03-29-2023 Basophils/100 WBC (Bld) 0.4 % 0-1 [facility] Chloride [Moles/Vol] 110 mmol/L 98-107 [facility] Eosinophils/100 WBC (Bld) 3.7 % 0-5 [facility] Glucose [Mass/Vol] 138 mg/dL 74-106 [facility] Comment on above: Fasting Glucose resu lt greater than or equal to 126 mg/dL suggests DIABETES MELLITUS per A.D.A. criteria. Neutrophils (Bld) [#/Vol] 2.6 10*3/uL 2.0-7.7 [facility] Neutrophils/100 WBC (Bld) 56.3 % 47-70 [facility] Potassium [Moles/Vol] 3.9 mmol/L 3.5-5.1 [facility] Sodium [Moles/Vol] 139 mmol/L 136-145 [facility] WBC (Bld) [#/Vol] 4.6 10*3/uL 4.4-11.0 [facility] Blood erythrocytes count (nu mber/volume)Ordered By: Roselia Santos on 03-29-2023 RBC (Bld) [#/Vol] 2.97 10*6/uL 4.6-6.2 [facility] Blood hemoglobin measurement (mass/volume)Ordered By: Roselia Santos on 03-29-2023 Hemoglobin (Bld) [Mass/Vol] 9.3 g/dL 13.0-16.5 [facility] Blood lymphocytes/100 leukoc ytesOrdered By: Roselia Santos on 03-29-2023 Lymphocytes/100 WBC (Bld) 30.5 % 19-41 [facility] Blood monocytes/100 leukocyt esOrdered By: Roselia Santos on 03-29-2023 Monocytes/100 WBC (Bld) 8.9 % 0-10 [facility] Blood platelet adequacy dete ction by light microscopyOrdered By: Roselia Santos on 03-29-2023 Platelets LM Ql (Bld) [facility] Blood platelet mean volumeOr dered By: Roselia Santos on 03-29-2023 Platelet mean volume (Bld) [Entitic vol] 13.7 fL 6.2-12.0 [facility] Determination of erythrocyte mean corpuscular volume (MCV)Ordered By: Roselia Santos on 03-29-2023 MCV (RBC) [Entitic vol] 95.6 fL 80-94 [facility] Hematocrit Auto (Bld) [Volum e fraction]Ordered By: Roselia Santos on 03-29-2023 Hematocrit (Bld) [Volume fraction] 28.4 % 40-54 [facility] Laboratory - Chemistry and C hemistry - challengeOrdered By: Roselia Santos on 03-29-2023 CO2 [Moles/Vol] 25.0 mmol/L 21.0-32.0 [facility] Urea nitrogen/Creatinine [Mass ratio] 14.3 mg/mg 10-20 [facility] Laboratory - Hematology and Cell countsOrdered By: Roselia Santos on 03-29-2023 Erythrocyte distribution width (RBC) [Entitic vol] 47.8 fL 35.1-43.9 [facility] Erythrocyte distribution width (RBC) [Ratio] 13.9 % 11.6-14.6 [facility] Immature granulocytes/100 WBC (Bld) 0.200 % 0.0-0.9 [facility] Comment on above: IG% - Immature Granu locytes (promyelocytes, myelocytes and metamyelocytes) > 1% indicates that a LEFT SHIFT is Present. MCH (RBC) [Entitic mass] 31.3 pg 27.0-32.0 [facility] Nucleated RBC/100 WBC (Bld) [Ratio] 0 % 0-5 [facility] MCHC Auto (RBC) [Mass/Vol]Or dered By: Roselia Santos on 03-29-2023 MCHC (RBC) [Mass/Vol] 32.7 g/dL 32-36 [facility] No Panel InformationOrdered By: Roselia Santos on 03-29-2023 Estimated Creatinine Clearance Calc 48.39 ml/min [facility] Estimated GFR (MDRD) Amer 60 mL/min >60 [facility] Comment on above: GFR Calc Estimated GFR (MDRD) Non-Af Amer 50 mL/min >60 [facility] Comment on above: Non- GFR Calc Platelets bldOrdered By: Vickie Santos on 03-29-2023 Platelets (Bld) [#/Vol] 56 10*3/uL 150-450 [facility] Serum or plasma calcium maría urement (mass/volume)Ordered By: Roselia Santos on 03-29-2023 Calcium [Mass/Vol] 8.2 mg/dL 8.5-10.1 [facility] Serum or plasma creatinine m easurement (mass/volume)Ordered By: Roselia Santos on 03-29-2023 Creatinine [Mass/Vol] 1.47 mg/dL 0.70-1.30 [facility] Comment on above: The validity of the calculated GFR & GFRAA in patients over 70 years has not been determined. Clinical correlation is essential. Serum or plasma urea nitroge n measurement (mass/volume)Ordered By: Roselia Santos on 03-29-2023 Urea nitrogen [Mass/Vol] 21 mg/dL 7-18 [facility] Thin prep Papanicolaou smear with manual screeningOrdered By: Roselia Santos on 03-29-2023 Thin prep Papanicolaou smear with manual screening 4 5-15 [facility] Blood manual differential co mment interpretation (narrative result)Ordered By: Roselia Santos on 03-28-2023 Manual differential comment Kel[place] (Bld) [Interp] SCANNED [facility] Review by pathologistOrdered By: Roselia Santos on 03-28-2023 Pathologist review [place] (Unsp spec) [Interp] Reviewed [facility] Comment on above: Previous reported re sult: July pola Edited by: PATRICIA on 03/29/23:1210Pancytopenia.Leukopenia Macrocytic anemia.marked ThrombocytopeniaClinical correlation necessary.Efrain Jo M.D. 03/29/23 AMENDED REPORT 03/29/23 1210 PATH REV previously reported as: Deepali escalona Basophil percentageOrdered B y: Bernadette Hernandez on 03-27-2023 Basophil percentage 2.5 mg/dL 2.5-4.9 [facility] Bilirubin [Mass/Vol] 0.80 mg/dL 0.20-1.00 [facility] Comment on above: For patients on eltr ombopag therapy, use of Dimension Daphne TBIL is not recommended. Protein [Mass/Vol] 6.3 g/dL 6.4-8.2 [facility] INR in Blood by Coagulation assayOrdered By: Bernadette Hernandez on 03-27-2023 INR Coag (Bld) [Relative time] 1.4 {INR} [facility] Laboratory - Chemistry and C hemistry - challengeOrdered By: Bernadette Hernandez on 03-27-2023 ALP [Catalytic activity/Vol] 155 U/L 45-117 [facility] ALT [Catalytic activity/Vol] 51 U/L 16-61 [facility] Globulin (S) [Mass/Vol] 3.5 g/dL 2.2-4.2 [facility] Magnesium [Mass/Vol] 1.5 mg/dL 1.6-2.6 [facility] Laboratory - CoagulationOrde red By: Bernadette Hernandez on 03-27-2023 PT Coag (PPP) [Time] 17.2 s 11.7-14.9 [facility] No Panel InformationOrdered By: Bernadette Hernandez on 03-27-2023 Thyroid Stimulating Hormone (TSH) 0.59 uIU/mL 0.358-3.74 [facility] Serum or plasma albumin maría urement (mass/volume)Ordered By: Bernadette Hernandez on 03-27-2023 Albumin [Mass/Vol] 2.8 g/dL 3.2-5.0 [facility] Serum or plasma albumin/glob ulin mass ratioOrdered By: Bernadette Hernandez on 03-27-2023 Albumin/Globulin [Mass ratio] 0.8 {ratio} 0.9-2.4 [facility] Thin prep Papanicolaou smear with manual screeningOrdered By: Bernadette Hernandez on 03-27-2023 Thin prep Papanicolaou smear with manual screening 52 U/L 15-37 [facility] Absolute lymphocyte countOrd ered By: ED PROVIDER on 03-26-2023 Lymphocytes Auto (Unsp spec) [#/Vol] 1.67 10*3/uL 0.83-4.51 [facility] Basophil percentageOrdered B y: Esteban Renee on 03-26-2023 Basophil percentage 0 SEEN /hpf 0-5 [facility] Basophil percentageOrdered B y: ED PROVIDER on 03-26-2023 Basophils/100 WBC (Bld) 0.3 % 0-1 [facility] Bilirubin [Mass/Vol] 1.10 mg/dL 0.20-1.00 [facility] Comment on above: For patients on eltr ombopag therapy, use of Dimension Daphne TBIL is not recommended. Chloride [Moles/Vol] 106 mmol/L 98-107 [facility] Eosinophils/100 WBC (Bld) 0.9 % 0-5 [facility] Glucose [Mass/Vol] 224 mg/dL 74-106 [facility] Comment on above: Glucose result great er than or equal to 200 mg/dLsuggests DIABETES MELLITUS per A.D.A. criteria. Neutrophils (Bld) [#/Vol] 7.3 10*3/uL 2.0-7.7 [facility] Neutrophils/100 WBC (Bld) 73.9 % 47-70 [facility] Potassium [Moles/Vol] 4.2 mmol/L 3.5-5.1 [facility] Protein [Mass/Vol] 7.2 g/dL 6.4-8.2 [facility] Sodium [Moles/Vol] 138 mmol/L 136-145 [facility] WBC (Bld) [#/Vol] 9.9 10*3/uL 4.4-11.0 [facility] Bilirubin Test strip Ql (U)O rdered By: Esteban Renee on 03-26-2023 Bilirubin Ql (U) Negative Negative [facility] Blood erythrocytes count (nu mber/volume)Ordered By: ED PROVIDER on 03-26-2023 RBC (Bld) [#/Vol] 3.80 10*6/uL 4.6-6.2 [facility] Blood hemoglobin measurement (mass/volume)Ordered By: ED PROVIDER on 03-26-2023 Hemoglobin (Bld) [Mass/Vol] 11.9 g/dL 13.0-16.5 [facility] Blood lymphocytes/100 leukoc ytesOrdered By: ED PROVIDER on 03-26-2023 Lymphocytes/100 WBC (Bld) 16.9 % 19-41 [facility] Blood monocytes/100 leukocyt esOrdered By: ED PROVIDER on 03-26-2023 Monocytes/100 WBC (Bld) 7.6 % 0-10 [facility] Blood platelet mean volumeOr dered By: ED PROVIDER on 03-26-2023 Platelet mean volume (Bld) [Entitic vol] 13.4 fL 6.2-12.0 [facility] Determination of erythrocyte mean corpuscular volume (MCV)Ordered By: ED PROVIDER on 03-26-2023 MCV (RBC) [Entitic vol] 94.7 fL 80-94 [facility] Hematocrit Auto (Bld) [Volum e fraction]Ordered By: ED PROVIDER on 03-26-2023 Hematocrit (Bld) [Volume fraction] 36.0 % 40-54 [facility] Ketones Test strip Ql (U)Ord ered By: Esteban Renee on 03-26-2023 Ketones Ql (U) 5 mg/dl Negative [facility] Laboratory - Chemistry and C hemistry - challengeOrdered By: ED PROVIDER on 03-26-2023 ALP [Catalytic activity/Vol] 194 U/L 45-117 [facility] ALT [Catalytic activity/Vol] 65 U/L 16-61 [facility] CO2 [Moles/Vol] 27.0 mmol/L 21.0-32.0 [facility] Globulin (S) [Mass/Vol] 4.1 g/dL 2.2-4.2 [facility] Urea nitrogen/Creatinine [Mass ratio] 42.3 mg/mg 10-20 [facility] Laboratory - Hematology and Cell countsOrdered By: ED PROVIDER on 03-26-2023 Erythrocyte distribution width (RBC) [Entitic vol] 46.8 fL 35.1-43.9 [facility] Erythrocyte distribution width (RBC) [Ratio] 13.6 % 11.6-14.6 [facility] Immature granulocytes/100 WBC (Bld) 0.400 % 0.0-0.9 [facility] Comment on above: IG% - Immature Granu locytes (promyelocytes, myelocytes and metamyelocytes) > 1% indicates that a LEFT SHIFT is Present. MCH (RBC) [Entitic mass] 31.3 pg 27.0-32.0 [facility] Nucleated RBC/100 WBC (Bld) [Ratio] 0 % 0-5 [facility] MCHC Auto (RBC) [Mass/Vol]Or dered By: ED PROVIDER on 03-26-2023 MCHC (RBC) [Mass/Vol] 33.1 g/dL 32-36 [facility] Mucus LM Ql (Urine sed)Order ed By: Esteban Renee on 03-26-2023 Mucus Ql (Urine sed) 0 SEEN /hpf [facility] Nitrite Test strip Ql (U)Ord ered By: Esteban Renee on 03-26-2023 Nitrite Ql (U) Negative Negative [facility] No Panel InformationOrdered By: ED PROVIDER on 03-26-2023 Estimated Creatinine Clearance Calc 51.92 ml/min [facility] Estimated GFR (MDRD) Amer 65 mL/min >60 [facility] Comment on above: GFR Calc Estimated GFR (MDRD) Non-Af Amer 54 mL/min >60 [facility] Comment on above: Non- GFR Calc Platelets bldOrdered By: ED PROVIDER on 03-26-2023 Platelets (Bld) [#/Vol] 86 10*3/uL 150-450 [facility] Protein Test strip Ql (U)Ord ered By: Esteban Renee on 03-26-2023 Protein Ql (U) 100 mg/dl Negative [facility] Serum or plasma albumin maría urement (mass/volume)Ordered By: ED PROVIDER on 03-26-2023 Albumin [Mass/Vol] 3.1 g/dL 3.2-5.0 [facility] Serum or plasma albumin/glob ulin mass ratioOrdered By: ED PROVIDER on 03-26-2023 Albumin/Globulin [Mass ratio] 0.8 {ratio} 0.9-2.4 [facility] Serum or plasma calcium maría urement (mass/volume)Ordered By: ED PROVIDER on 03-26-2023 Calcium [Mass/Vol] 9.1 mg/dL 8.5-10.1 [facility] Serum or plasma creatinine m easurement (mass/volume)Ordered By: ED PROVIDER on 03-26-2023 Creatinine [Mass/Vol] 1.37 mg/dL 0.70-1.30 [facility] Comment on above: The validity of the calculated GFR & GFRAA in patients over 70 years has not been determined. Clinical correlation is essential. Serum or plasma urea nitroge n measurement (mass/volume)Ordered By: ED PROVIDER on 03-26-2023 Urea nitrogen [Mass/Vol] 58 mg/dL 7-18 [facility] Squamous epithelial cells de tection in urine sediment by light microscopyOrdered By: Esteban Renee on 03-26-2023 Epithelial cells.squamous LM Ql (Urine sed) 0 SEEN /hpf 0-5 [facility] Stool enteric pathogen panel by probe and target amplification methodOrdered By: Bernadette Hernandez on 03-26-2023 Gastrointestinal pathogens panel MARILYN+probe (Stl) [facility] Stool lactoferrin detection by immunoassayOrdered By: Bernadette Hernandez on 03-26-2023 Lactoferrin IA Ql (Stl) [facility] Thin prep Papanicolaou smear with manual screeningOrdered By: ED PROVIDER on 03-26-2023 Thin prep Papanicolaou smear with manual screening 62 U/L 15-37 [facility] Thin prep Papanicolaou smear with manual screening 5 5-15 [facility] Urine blood detectionOrdered By: Esteban Renee on 03-26-2023 RBC Ql (U) Negative Negative [facility] RBC Ql (U) 0 SEEN /hpf 0-5 [facility] Urine clarityOrdered By: Marielena Renee on 03-26-2023 Clarity (U) Clear Clear [facility] Urine color determinationOrd ered By: Esteban Renee on 03-26-2023 Color (U) Yellow Yellow [facility] Urine glucose detectionOrder ed By: Esteban Renee on 03-26-2023 Glucose Ql (U) 100 mg/dl Normal [facility] Urine leukocyte esterase det ection by dipstickOrdered By: Esteban Renee on 03-26-2023 Leukocyte esterase Test strip Ql (U) Negative Negative [facility] Urine pHOrdered By: Esteban milian on 03-26-2023 pH (U) 6.0 [pH] 5.0 - 8.0 [facility] Urine sediment bacteria coun t by microscopy (number/high power field)Ordered By: Esteban Renee on 03-26-2023 Bacteria LM.HPF (Urine sed) [#/Area] 0 /[HPF] None Seen [facility] Urine specific gravity measu rementOrdered By: Esteban Renee on 03-26-2023 Specific gravity (U) [Rel density] 1.015 1.002-1.03 0 [facility] Urobilinogen Auto test strip Ql (U)Ordered By: Esteban Renee on 03-26-2023 Urobilinogen Ql (U) Normal mg/dl Normal [facility] Lipid 1996 panelon 3 Cholesterol [Mass/Vol] 147 mg/dL <200 mg/dL [facility] Cholesterol in HDL [Mass/Vol] 54 mg/dL >39 mg/dL [facility] Cholesterol in LDL [Mass/Vol] 76 mg/dL <100 mg/dL [facility] Cholesterol in LDL/Cholesterol in HDL [Mass ratio] 1.41 {ratio} <2.54 [facility] Cholesterol in VLDL [Mass/Vol] 17 mg/dL <30 mg/dL [facility] Cholesterol non HDL [Mass/Vol] 93 mg/dL <130 mg/dL [facility] Cholesterol.total/Cho lesterol in HDL [Mass ratio] 2.72 {ratio} <5.10 [facility] Fasting Time 8 hrs [facility] Triglyceride [Mass/Vol] 87 mg/dL <150 mg/dL [facility] No Panel Informationon 02-16 Radiology Result ACTIONABLE Abnormal [facility] ICD REMOTE CHECKon 3 AV Delay Adaptive Paced Minimum (ms) 300 ms [facility] AV Delay Adaptive Sensed Minimum (ms) 300 ms [facility] AV Delay Paced (ms) 200 ms [facility] AV Delay Sensed (ms) [facility] Danilo RA Pacing Amplitude (volts) 2.0 V [facility] Danilo RA Pacing Polarity BI [facility] Danilo RA Pacing Pulse Width (ms) 0.4 ms [facility] Danilo RA Sensing Amplitude (mvolts) 0.25 mV [facility] Danilo RA Sensing Polarity BI [facility] Danilo RV Pacing Amplitude (volts) 2.0 V [facility] Danilo RV Pacing Polarity BI [facility] Danilo RV Pacing Pulse Width (ms) 0.4 ms [facility] Danilo RV Sensing Amplitude (mvolts) 0.6 mV [facility] Danilo RV Sensing Polarity BI [facility] Detection Configuration (Vent) 2 - Zone [facility] FastVT_Detection Interval 273 ms [facility] FastVT_Therapy Configuration 1 ATP(s) + 8 Shock(s) [facility] ICD FastVT DetectionStatus ENABLED [facility] ICD-AMS EPISODES 170 {beats}/min [facility] ICD-ATP Episodes (Vent) 0 [facility] ICD-ATRIALFIBRILLATIO N 1 [facility] ICD-ATRIALTACHYCARDIA 1 [facility] ICD-ATRIALTACHYCARDIA 2 [facility] ICD-ATRIALTACHYCARDIA 16 [facility] ICD-Device Mfg BSX [facility] ICD-Fast Ventricular Tachycardia 16 [facility] ICD-LEADIMPEDANCEATRI AL 565 ohm [facility] ICD-Percent Pacing (Atrial) 19 % [facility] ICD-Percent Pacing (Vent) 0 % [facility] ICD-Shocks Aborted (Vent) 0 [facility] [id number] 0 [facility] ICD-SHOCKSABORTED 0 [facility] ICD-SHOCKSDELIVEREDVE NTRICULAR 0 [facility] ICD-Ventricular Fibrillation 0 [facility] Lead Impedance (RV) 494 ohm [facility] Lead Impedance High Voltage 58 ohm [facility] Lead1 Mfg BSX [facility] Lead2 Mfg GDT [facility] Location RV [facility] Location RA [facility] Lower Rate (bpm) 50 {beats}/min [facility] MDT_PROG_TACHY_ZONE_D ETECTIONS_STATUS ENABLED [facility] Model E142 ENERGEN [facility] Model 0296 Endotak Relianc e 4-Site G [facility] Model 4136 Dextrus [facility] Pacing Mode DDD [facility] Serial Number [id number] [facility] Serial Number [id number] [facility] Serial Number [id number] [facility] Test Charge Energy 11 J [facility] Test Charge Time 11.2 s [facility] Therapy Status (Vent) Enabled [facility] Thresh RA Capture Amplitude (volts) 0.5 V [facility] Thresh RA Capture Duration (ms) 0.4 ms [facility] Thresh RV Capture Amplitude (VOLTS) 0.7 V [facility] Thresh RV Capture Duration (MS) 0.4 ms [facility] Tracking Rate (bpm) 130 {beats}/min [facility] VF Zone Detection Interval 273 ms [facility] VF Zone Therapy Configuration 1 ATP(s) + 8 Shock(s) [facility] No Panel Informationon 12-15 BLANK _ [facility] ICD-ATRIALTACHYCARDIA 0 [facility] ICD-Fast Ventricular Tachycardia 0 [facility] Implant Date 08/16/2012 [facility] XR Cervical spine AP and Lat eral and obliqueon 10-18-2022 IMPRESSION: MULTILEV EL DEGENERATIVE DISC AND FACET DISEASE AND BILATERAL NEUROFORAMINAL NARROWING. [employer] Education Director: ANTHONY Transcribe Date/Time: Oct 18 2022 6:48P Dictated by : MALIKA TROY MD This examination was interpreted and the report reviewed and electronically signed by: MALIKA TROY MD on Oct 18 2022 6:50PM [facility] DIVISION OF RADIOLOGY * * *Final Report* * * DATE OF EXAM: Oct 14 2022 12:13PM WOX [id number] - XR CERVICAL 4V AP/LAT/OBL / PROCEDURE REASON: DDD (degenerative disc disease), cervical * * * * Physician Interpretation * * * * EXAM: CERVICAL SPINE, 4 VIEWS CLINICAL: 72-year-old male with degenerative disc disease TECHNIQUE: AP, lateral, lateral, obliques, flexion extension COMPARISON: None RESULTS: Counting reference: Craniocervical junction. Moderate to marked narrowing at C3/C4, C5/C6 and moderate narrowing C6/C7. Osteophytes anteriorly at C5-C7 uncovertebral osteophytes at C3-C7. Proximal and 2 mm posterior subluxation C3 on C4-C5 on C6. Narrowing of facet joints throughout cervical spine. Mild neuroforaminal narrowing at C3/C4, C4/C5 and C6/C7 and moderate narrowing at C4/C5 on the left. Moderate to marked neuroforaminal narrowing at C3/C4 and C4/C5, moderate narrowing at C2/C3, C5/C6 C7 on the right. Nuchal ligament calcification is present at the level of C5 and C6. DIVISION OF RADIOLOGY Provider, Sajan haskins [place] - 10/18/2022 * * *Final Report* * * DATE OF EXAM: Oct 14 2022 12:13PM WOX [id number] - XR CERVICAL 4V AP/LAT/OBL / PROCEDURE REASON: DDD (degenerative disc disease), cervical * * * * Physician Interpretation * * * * EXAM: CERVICAL SPINE, 4 VIEWS CLINICAL: 72-year-old male with degenerative disc disease TECHNIQUE: AP, lateral, lateral, obliques, flexion extension COMPARISON: None RESULTS: Counting reference: Craniocervical junction. Moderate to marked narrowing at C3/C4, C5/C6 and moderate narrowing C6/C7. Osteophytes anteriorly at C5-C7 uncovertebral osteophytes at C3-C7. Proximal and 2 mm posterior subluxation C3 on C4-C5 on C6. Narrowing of facet joints throughout cervical spine. Mild neuroforaminal narrowing at C3/C4, C4/C5 and C6/C7 and moderate narrowing at C4/C5 on the left. Moderate to marked neuroforaminal narrowing at C3/C4 and C4/C5, moderate narrowing at C2/C3, C5/C6 C7 on the right. Nuchal ligament calcification is present at the level of C5 and C6. IMPRESSION IMPRESSION: MULTILEVEL DEGENERATIVE DISC AND FACET DISEASE AND BILATERAL NEUROFORAMINAL NARROWING. [employer] Education Director: ANTHONY Transcribe Date/Time: Oct 18 2022 6:48P Dictated by : MALIKA TROY MD This examination was interpreted and the report reviewed and electronically signed by: MALIKA TROY MD on Oct 18 2022 6:50PM EST [facility] XR Cervical spine AP and Lat eral and obliqueOrdered By: [facility] Provider on 10-18-2022 [facility] XR Foot - right AP and Later al and obliqueon 10-18-2022 IMPRESSION: PES CAVUS AND DEGENERATIVE CHANGES IN THE GREAT TOE. Christian Education Director: [facility] Transcribe Date/Time: Oct 18 2022 6:50P Dictated by : MALIKA TROY MD This examination was interpreted and the report reviewed and electronically signed by: MALIKA TROY MD on Oct 18 2022 6:53PM [facility] DIVISION OF RADIOLOGY * * *Final Report* * * DATE OF EXAM: Oct 14 2022 12:13PM WOX [id number] - XR FOOT 3V AP/LAT/OBL RT / PROCEDURE REASON: Foot pain, right * * * * Physician Interpretation * * * * HISTORY: 72-YEAR-OLD MALE WITH Foot pain, right . Right foot pain x6 months. Pain is along lateral edge of foot. No known injury. Pt feels a lump along side of foot in area of pain. TECHNIQUE: XR FOOT 3V AP/LAT/OBL RT Laterality: RIGHT Number of different views (projections): 3 COMPARISON: None RESULT: Right foot: Degenerative changes IP joint of the great toe. Mild degenerative changes of first MTP joint with small osteophytes. Bones and joints otherwise intact. Pes cavus. Small calcaneal enthesophyte at the insertion of the plantar fascia. No fracture. DIVISION OF RADIOLOGY Provider, [facility] - 10/18/2022 * * *Final Report* * * DATE OF EXAM: Oct 14 2022 12:13PM WOX [id number] - XR FOOT 3V AP/LAT/OBL RT / PROCEDURE REASON: Foot pain, right * * * * Physician Interpretation * * * * HISTORY: 72-YEAR-OLD MALE WITH Foot pain, right . Right foot pain x6 months. Pain is along lateral edge of foot. No known injury. Pt feels a lump along side of foot in area of pain. TECHNIQUE: XR FOOT 3V AP/LAT/OBL RT Laterality: RIGHT Number of different views (projections): 3 COMPARISON: None RESULT: Right foot: Degenerative changes IP joint of the great toe. Mild degenerative changes of first MTP joint with small osteophytes. Bones and joints otherwise intact. Pes cavus. Small calcaneal enthesophyte at the insertion of the plantar fascia. No fracture. IMPRESSION IMPRESSION: PES CAVUS AND DEGENERATIVE CHANGES IN THE GREAT TOE. Christian Education Director: [facility] Transcribe Date/Time: Oct 18 2022 6:50P Dictated by : MALIKA TROY MD This examination was interpreted and the report reviewed and electronically signed by: MALIKA TROY MD on Oct 18 2022 6:53PM EST [facility] No Panel Informationon 10-14 Radiology Study observation (narrative) [facility] US ABD LIVER VASCULARon 06-2 [facility] US DOPPLER COMPLETEon 2022 [facility] ICD REMOTE CHECKon AV Delay Adaptive Paced Minimum (ms) 300 ms [facility] AV Delay Adaptive Sensed Minimum (ms) 300 ms [facility] AV Delay Paced (ms) 200 ms [facility] AV Delay Sensed (ms) 200 ms [facility] Danilo RA Pacing Amplitude (volts) 2.0 V [facility] Danilo RA Pacing Polarity BI [facility] Danilo RA Pacing Pulse Width (ms) 0.4 ms [facility] Danilo RA Sensing Amplitude (mvolts) 0.25 mV [facility] Danilo RA Sensing Polarity BI [facility] Danilo RV Pacing Amplitude (volts) 2.0 V [facility] Danilo RV Pacing Polarity BI [facility] Danilo RV Pacing Pulse Width (ms) 0.4 ms [facility] Danilo RV Sensing Amplitude (mvolts) 0.6 mV [facility] Danilo RV Sensing Polarity BI [facility] Detection Configuration (Vent) 2 - Zone [facility] FastVT_Detection Interval 273 ms [facility] FastVT_Therapy Configuration 1 ATP(s) + 8 Shock(s) [facility] ICD FastVT DetectionStatus ENABLED [facility] ICD-AMS EPISODES 170 {beats}/min [facility] ICD-ATP Episodes (Vent) 0 [facility] ICD-ATRIALFIBRILLATIO N 1 [facility] ICD-ATRIALTACHYCARDIA 1 [facility] ICD-ATRIALTACHYCARDIA 2 [facility] ICD-ATRIALTACHYCARDIA 16 [facility] ICD-Device Mfg BSX [facility] ICD-Fast Ventricular Tachycardia 16 [facility] ICD-LEADIMPEDANCEATRI AL 584 ohm [facility] ICD-Percent Pacing (Atrial) 20 % [facility] ICD-Percent Pacing (Vent) 0 % [facility] ICD-Shocks Aborted (Vent) 0 [facility] [id number] 0 [facility] ICD-SHOCKSABORTED 0 [facility] ICD-SHOCKSDELIVEREDVE NTRICULAR 0 [facility] ICD-Ventricular Fibrillation 0 [facility] Lead Impedance (RV) 474 ohm [facility] Lead Impedance High Voltage 55 ohm [facility] Lead1 Mfg BSX [facility] Lead2 Mfg GDT [facility] Location RV [facility] Location RA [facility] Lower Rate (bpm) 50 {beats}/min [facility] MDT_PROG_TACHY_ZONE_D ETECTIONS_STATUS ENABLED [facility] Model E142 ENERGEN [facility] Model 0296 Endotak Relianc e 4-Site G [facility] Model 4136 Dextrus [facility] Pacing Mode DDD [facility] Serial Number [id number] [facility] Serial Number [id number] [facility] Serial Number [id number] [facility] Test Charge Energy 11 J [facility] Test Charge Time 10.9 s [facility] Therapy Status (Vent) Enabled [facility] Thresh RA Capture Amplitude (volts) 0.5 V [facility] Thresh RA Capture Duration (ms) 0.4 ms [facility] Thresh RV Capture Amplitude (VOLTS) 0.7 V [facility] Thresh RV Capture Duration (MS) 0.4 ms [facility] Tracking Rate (bpm) 130 {beats}/min [facility] VF Zone Detection Interval 273 ms [facility] VF Zone Therapy Configuration 1 ATP(s) + 8 Shock(s) [facility] No Panel Informationon 06-10 BLANK _ [facility] ICD-ATRIALTACHYCARDIA 0 [facility] ICD-Fast Ventricular Tachycardia 0 [facility] Implant Date 08/16/2012 [facility] US ABD LIVER VASCULARon 03-22 [facility] US DOPPLER COMPLETEon 2022 [facility] ICD REMOTE CHECKon 2 AV Delay Adaptive Paced Minimum (ms) 300 ms [facility] AV Delay Adaptive Sensed Minimum (ms) 300 ms [facility] AV Delay Paced (ms) 200 ms [facility] AV Delay Sensed (ms) 200 ms [facility] Danilo RA Pacing Amplitude (volts) 2 V [facility] Danilo RA Pacing Polarity BI [facility] Danilo RA Pacing Pulse Width (ms) 0.4 ms [facility] Danilo RA Sensing Amplitude (mvolts) 0.25 mV [facility] Danilo RA Sensing Polarity BI [facility] Danilo RV Pacing Amplitude (volts) 2 V [facility] Danilo RV Pacing Polarity BI [facility] Danilo RV Pacing Pulse Width (ms) 0.4 ms [facility] Danilo RV Sensing Amplitude (mvolts) 0.6 mV [facility] Danilo RV Sensing Polarity BI [facility] Detection Configuration (Vent) 2 - Zone [facility] FastVT_Detection Interval 273 ms [facility] FastVT_Therapy Configuration 1 ATP(s) + 8 Shock(s) [facility] ICD FastVT DetectionStatus ENABLED [facility] ICD-AMS EPISODES 170 {beats}/min [facility] ICD-ATP Episodes (Vent) 0 [facility] ICD-ATRIALFIBRILLATIO N 1 [facility] ICD-ATRIALTACHYCARDIA 1 [facility] ICD-ATRIALTACHYCARDIA 2 [facility] ICD-ATRIALTACHYCARDIA 15 [facility] ICD-Device Mfg BSX [facility] ICD-Fast Ventricular Tachycardia 15 [facility] ICD-LEADIMPEDANCEATRI AL 586 ohm [facility] ICD-Percent Pacing (Atrial) 21 % [facility] ICD-Percent Pacing (Vent) 0 % [facility] ICD-Shocks Aborted (Vent) 0 [facility] [id number] 0 [facility] ICD-SHOCKSABORTED 0 [facility] ICD-SHOCKSDELIVEREDVE NTRICULAR 0 [facility] ICD-Ventricular Fibrillation 0 [facility] Lead Impedance (RV) 474 ohm [facility] Lead Impedance High Voltage 54 ohm [facility] Lead1 Mfg BSX [facility] Lead2 Mfg GDT [facility] Location RV [facility] Location RA [facility] Lower Rate (bpm) 50 {beats}/min [facility] MDT_PROG_TACHY_ZONE_D ETECTIONS_STATUS ENABLED [facility] Model E[address] [facility] Model 0296 Endotak Relianc e 4-Site G [facility] Model 4136 Dexts [facility] Pacing Mode DDD [facility] Serial Number [id number] [facility] Serial Number [id number] [facility] Serial Number [id number] [facility] Test Charge Energy 11 J [facility] Test Charge Time 10.9 s [facility] Therapy Status (Vent) Enabled [facility] Thresh RA Capture Amplitude (volts) 0.5 V [facility] Thresh RA Capture Duration (ms) 0.4 ms [facility] Thresh RV Capture Amplitude (VOLTS) 0.7 V [facility] Thresh RV Capture Duration (MS) 0.4 ms [facility] Tracking Rate (bpm) 130 {beats}/min [facility] VF Zone Detection Interval 273 ms [facility] VF Zone Therapy Configuration 1 ATP(s) + 8 Shock(s) [facility] No Panel Informationon 03-13 BLANK _ [facility] ICD-ATRIALTACHYCARDIA 0 [facility] ICD-Fast Ventricular Tachycardia 0 [facility] Implant Date 08/16/2012 [facility] ICD REMOTE CHECKon 2 AV Delay Adaptive Paced Minimum (ms) 300 ms [facility] AV Delay Adaptive Sensed Minimum (ms) 300 ms [facility] AV Delay Paced (ms) 200 ms [facility] AV Delay Sensed (ms) 200 ms [facility] Danilo RA Pacing Amplitude (volts) 2 V [facility] Danilo RA Pacing Polarity BI [facility] Danilo RA Pacing Pulse Width (ms) 0.4 ms [facility] Danilo RA Sensing Amplitude (mvolts) 0.25 mV [facility] Danilo RA Sensing Polarity BI [facility] Danilo RV Pacing Amplitude (volts) 2 V [facility] Danilo RV Pacing Polarity BI [facility] Danilo RV Pacing Pulse Width (ms) 0.4 ms [facility] Danilo RV Sensing Amplitude (mvolts) 0.6 mV [facility] Danilo RV Sensing Polarity BI [facility] Detection Configuration (Vent) 2 - Zone [facility] FastVT_Detection Interval 273 ms [facility] FastVT_Therapy Configuration 1 ATP(s) + 8 Shock(s) [facility] ICD FastVT DetectionStatus ENABLED [facility] ICD-AMS EPISODES 170 {beats}/min [facility] ICD-ATP Episodes (Vent) 0 [facility] ICD-ATRIALFIBRILLATIO N 1 [facility] ICD-ATRIALTACHYCARDIA 1 [facility] ICD-ATRIALTACHYCARDIA 2 [facility] ICD-ATRIALTACHYCARDIA 14 [facility] ICD-Device Mfg BSX [facility] ICD-Fast Ventricular Tachycardia 14 [facility] ICD-LEADIMPEDANCEATRI AL 552 ohm [facility] ICD-Percent Pacing (Atrial) 21 % [facility] ICD-Percent Pacing (Vent) 0 % [facility] ICD-Shocks Aborted (Vent) 0 [facility] [id number] 0 [facility] ICD-SHOCKSABORTED 0 [facility] ICD-SHOCKSDELIVEREDVE NTRICULAR 0 [facility] ICD-Ventricular Fibrillation 0 [facility] Lead Impedance (RV) 481 ohm [facility] Lead Impedance High Voltage 55 ohm [facility] Lead1 Mfg BSX [facility] Lead2 Mfg GDT [facility] Location RV [facility] Location RA [facility] Lower Rate (bpm) 50 {beats}/min [facility] MDT_PROG_TACHY_ZONE_D ETECTIONS_STATUS ENABLED [facility] Model E142 LIZETTN [facility] Model 0296 [employer] Relianc e 4-Site G [facility] Model 4136 Dextrus [facility] Pacing Mode DDD [facility] Serial Number [id number] [facility] Serial Number [id number] [facility] Serial Number [id number] [facility] Test Charge Energy 11 J [facility] Test Charge Time 10.8 s [facility] Therapy Status (Vent) Enabled [facility] Thresh RA Capture Amplitude (volts) 0.5 V [facility] Thresh RA Capture Duration (ms) 0.4 ms [facility] Thresh RV Capture Amplitude (VOLTS) 0.7 V [facility] Thresh RV Capture Duration (MS) 0.4 ms [facility] Tracking Rate (bpm) 130 {beats}/min [facility] VF Zone Detection Interval 273 ms [facility] VF Zone Therapy Configuration 1 ATP(s) + 8 Shock(s) [facility] No Panel Informationon 12-08 BLANK _ [facility] ICD-ATRIALTACHYCARDIA 0 [facility] ICD-Fast Ventricular Tachycardia 0 [facility] Implant Date 08/16/2012 [facility] ICD REMOTE CHECKon 2 AV Delay Adaptive Paced Minimum (ms) 300 ms [facility] AV Delay Adaptive Sensed Minimum (ms) 300 ms [facility] AV Delay Paced (ms) 200 ms [facility] AV Delay Sensed (ms) 200 ms [facility] Danilo RA Pacing Amplitude (volts) 2 V [facility] Danilo RA Pacing Polarity BI [facility] Danilo RA Pacing Pulse Width (ms) 0.4 ms [facility] Danilo RA Sensing Amplitude (mvolts) 0.25 mV [facility] Danilo RA Sensing Polarity BI [facility] Danilo RV Pacing Amplitude (volts) 2 V [facility] Danilo RV Pacing Polarity BI [facility] Danilo RV Pacing Pulse Width (ms) 0.4 ms [facility] Danilo RV Sensing Amplitude (mvolts) 0.6 mV [facility] Danilo RV Sensing Polarity BI [facility] Detection Configuration (Vent) 2 - Zone [facility] FastVT_Detection Interval 273 ms [facility] FastVT_Therapy Configuration 1 ATP(s) + 8 Shock(s) [facility] ICD FastVT DetectionStatus ENABLED [facility] ICD-AMS EPISODES 170 {beats}/min [facility] ICD-ATP Episodes (Vent) 0 [facility] ICD-ATRIALFIBRILLATIO N 1 [facility] ICD-ATRIALTACHYCARDIA 1 [facility] ICD-ATRIALTACHYCARDIA 2 [facility] ICD-ATRIALTACHYCARDIA 13 [facility] ICD-Device Mfg BSX [facility] ICD-Fast Ventricular Tachycardia 13 [facility] ICD-LEADIMPEDANCEATRI AL 556 ohm [facility] ICD-Percent Pacing (Atrial) 21 % [facility] ICD-Percent Pacing (Vent) 0 % [facility] ICD-Shocks Aborted (Vent) 0 [facility] [id number] 0 [facility] ICD-SHOCKSABORTED 0 [facility] ICD-SHOCKSDELIVEREDVE NTRICULAR 0 [facility] ICD-Ventricular Fibrillation 0 [facility] Lead Impedance (RV) 470 ohm [facility] Lead Impedance High Voltage 55 ohm [facility] Lead1 Mfg BSX [facility] Lead2 Mfg GDT [facility] Location RV [facility] Location RA [facility] Lower Rate (bpm) 50 {beats}/min [facility] MDT_PROG_TACHY_ZONE_D ETECTIONS_STATUS ENABLED [facility] Model E[address] [facility] Model 0296 Endot[employer] Relianc e 4-Site G [facility] Model 4136 Dextrus [facility] Pacing Mode DDD [facility] Serial Number [id number] [facility] Serial Number [id number] [facility] Serial Number [id number] [facility] Test Charge Energy 11 J [facility] Test Charge Time 10.7 s [facility] Therapy Status (Vent) Enabled [facility] Thresh RA Capture Amplitude (volts) 0.5 V [facility] Thresh RA Capture Duration (ms) 0.4 ms [facility] Thresh RV Capture Amplitude (VOLTS) 0.7 V [facility] Thresh RV Capture Duration (MS) 0.4 ms [facility] Tracking Rate (bpm) 130 {beats}/min [facility] VF Zone Detection Interval 273 ms [facility] VF Zone Therapy Configuration 1 ATP(s) + 8 Shock(s) [facility] No Panel Informationon 09-02 BLANK _ [facility] ICD-ATRIALTACHYCARDIA 0 [facility] ICD-Fast Ventricular Tachycardia 0 [facility] Implant Date 08/16/[address] [facility] [address] LIVER W IVCONon 2 [facility] No Panel Informationon 07-21 Radiology Result [facility] CNOVon 05-13-2017 CNOV Office Visit (AGCARDWST) ----MATEUS YI ([id number]) 1950 MDate Time Provider Department05/13/17 1:30 PM WILL FAN AGCARDWST During your visit today, we recorded the following information about you: Pulse Blood pressure Weight Height 57/minute 148/84 92.3 kg 1.829 Jose Fan MD 05/13/2017 5:40 PM SignedPERTINENT CARDIAC HISTORYHOCMSyncope - ICD 08/01 ([place] two lead)HTNADHERENCE TO GUIDELINESACE-I or ARB for HF with prior LVEFANDlt;40 (NQF 0081) - N/AASA or Plavix for ASHD (NQF 0067) - N/ABeta david for ASHD with prior DC or prior LVEFANDlt;40 (NQF 0070) - N/ABeta david for HF with prior LVEFANDlt;40 (NQF 0083) - N/AACE-I or ARB for ASHD with DM or prior LVEFANDlt;40 (NQF 0066) - N/AStatin therapy for ASHD or FHL or DM - N/ABMI documented and plan if ANDgt;25 (NQF 0421) - lifestyle recommendation formTobacco use screening and referral (NQF 0028) - lifestyle recommendation formRecommendation for whole food, plant based diet - lifestyle recommendation formCLINICAL IMPRESSION/PLAN:Mateus Yi presents with history of hypertrophic cardiomyopathy withinducible moderate LVOT gradient on his current medical therapy. Risk ofperioperative cardiac complications is increased because of the potential forhemodynamic change with postoperative tachycardia and volume depletion. Riskcan be decreased by making sure that his pressure is well supported and that heis well-hydrated postop. I recommend close observation and involvement ofcardiology perioperatively.His device was recently checked and found to have normal function. This doesnot need to be checked again prior to surgery, but in view of the site ofsurgery, therapy should be suspended prior to surgery and turned back onpostoperatively. This can be accomplished by the pacemaker clinic in the preopholding area.His exercise tolerance is stable. He was very clear on this point. He has someshortness of breath which does not always correlate with the degree of activityand there is been no change in this pattern. His left ventricular hypertrophyand EKG abnormality make false positive stress testing likely. Given thestability of his symptoms and overall good exercise tolerance, preoperativestress testing is not recommended.Long-term, he would benefit from reevaluation of his device programming. Thiscan be optimized in conjunction with the hypertrophic myopathy clinic. I haverecommended to him that he [facility],EPdepartment and hypertrophic myopathy clinic. Prior to surgery, no changes inmedication are recommended, although postoperatively, I would considerdiscontinuing diltiazem and restarting beta david. It is unclear why this wasdiscontinued in the past.I will see him in 6 months and be available for local cardiology follow-up.Thank you for asking me to see and make recommendations on Mateus Yi. Thisreport is available to you in the shared medical record.Written and verbal health teaching given to patient, patient verbalizesunderstanding and agrees with treatment plan.This note was generated using [employer] voice recognition system, and there may besome incorrect words, spellings, and punctuation that were not noted inchecking the note before saving.DIAGNOSIS FOR VISIT:HOCMPreoperative cardiac risk assessmentHISTORY OF PRESENT ILLNESSMateus Yi is a 67-year-old gentleman who is seen in consultation at [facility] of Dr. Drake, for preoperative cardiac risk assessment.He recently moved from [place] and will be living here for the duration. He iswishing to establish a long-term relationship. He has an ICD which wasimplanted in 2012 for prophylaxis. He had unexplained syncope and wasdiscovered to have hypertrophic cardiomyopathy. He has received follow up withelectrophysiology in the past.He reports that his activity has been limited somewhat by orthopedic problems,including shoulder discomfort and knee pain. However, he is able to walk ontreadmill and does some treadmill and weightlifting. He has had stable exercisetolerance. He's been limited by his orthopedic considerations. He has notedintermittent awareness of his breathing and possibly some dyspnea. However,this occurs somewhat randomly. He can occasionally have some at rest or withheavy physical activity. He's had multiple surgical procedures over the lastseveral years without complication.He had a hospitalization last fall for unexplained chest discomfort. No stresstest was done during that admission. Reportedly his testing pointed towards anoncardiac cause, although I have no laboratory studies. He has a chronicallyabnormal EKG.He has received no therapies from his ICD. This was interrogated and found tohave stable thresholds in January 2017.He has been on diltiazem for blood pressure control. He reports that he hasbeen on a beta david on at least one occasion in the past. He cannot recallwhy it was discontinued.He's had no recurrent syncope since his ICD was placed. He underwentangiography at the time of his ICD placement and was told that he hadANDquot;pristineANDquot; arteries.Risk factors for coronary disease include hypertension.ALLERGIES:ALLERG IESAllergen Reactions- Valsartan Intolerance Cramps in legs, muscle pain- Vicodin [Hydrocodon* AnaphylaxisCURRENT OUTPATIENT MEDICATIONS:losartan (COZAAR) 100 mg tablet Take 100 mg by mouth once daily.diltiazem CD (CARTIA XT) 240 mg 24 hr capsule Take 240 mg by mouth once daily.OMEPRAZOLE MAGNESIUM (PRILOSEC OTC ORAL) Take by mouth as needed.meloxicam (MOBIC) 15 mg tablet Take 15 mg by mouth once daily. 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00 Years: 0.00 Types: Cigars Smokeless status: Never UsedREVIEW OF SYSTEMS: General: No chills, fever, weight loss, night sweats.SHEENT: No change in vision or auditory acuity. Respiratory: No productivecough. Cardiac: As noted above. GI: No melena. There is a history of GERD.: No dysuria. Musculoskeletal: Chronic myalgias myalgias. Neurologic: Nostrokes. Psychiatric: No depression. Endocrine: No diabetes. Hematologic: Noanemia.PHYSICAL EXAMINATION: S/he is alert and in no distressVITAL SIGNS: BP 148/84 Pulse 57 Ht 6' 0ANDquot; (1.83m) Wt 203 lb 8 oz(92.3kg) BMI 27.59 kg/(m2).SHEENT: Skin is warm and dry. Pupils are round and reactive. Retinal vesselsare grossly unremarkable. No xanthelasmas appreciated. Pharynx is benign.There is no oral cyanosis. Neck: supple. No adenopathy or thyroidenlargement. Chest: Clear to percussion and auscultation. Trachea is midline. Air entry is equal. There is no chest wall tenderness. Cardiac: Regularrhythm. S1 and S2 are normal. PMI is nondisplaced. There is a 1/6 harshapical systolic ejection murmur. This does not change with Valsalva or withchange in position. There is additionally a 1/6 murmur of mitral insufficiency. No click is heard. Carotids are brisk without bruits. JVP is less than 10cm. Abdomen: Soft and nontender. There are no pulsatile masses or bruits. Noliver enlargement. Bowel sounds are active. : Deferred. Extremities: Noedema. Pulses are intact and symmetrical. No clubbing or cyanosis. Nofemoral bruits. Neurologic: Grossly normal motor and sensory. S/he is alertand oriented x4. Musculoskeletal: No joint deformities.EKG shows sinus bradycardia. There is anterolateral repolarization abnormalityconsistent with ischemia, but unchanged from multiple previous EKGs. This islikely related to his hypertrophy.Recent labs were reviewed. Renal function is normal. Magnesium was normal.Previous records were reviewed. He has a [place] [employer] dual-chamber device.Atrial and ventricular amplitudes, impedance and thresholds have been stable.He has received no therapies recently. He has had no significant atrial orventricular arrhythmias.Vascular screening tests showed no significant disease in 2011. Calcium scorewas 0. Coronary angiogram in 2012 showed mild mid LAD bridging with noobstructive disease.Most recent echocardiogram was performed in 01/05. Left ventricle function wasdescribed as normal. There was septal hypertrophy (19 millimeters) whichextended into the apex. Resting LVOT gradient was 10 which increased to 38 withValsalva. Pulmonary pressures were normal. There was mild mitral insufficiencyand mild SAMElectronically Signed:Will Fan MDFeuary 2017 2:25 [facility]: Gray Noguera III Corona Fan MD 05/13/2017 2:25 PM SignedLIFESTYLE CHANGEA healthy lifestyle is the most important component of your overall treatmentplan. Please give serious thought to the following areas and commit to makinglong term changes.EAT A WHOLE FOOD, PLANT BASED DIETThe nutrition your body gets is more important than the medicine you take.What matters most is the overall way you eat. We encourage you to minimize theuse of animal products (which include dairy and all meats except fatty fish)and use whole, unprocessed plant foods to provide your protein, vitamins andother nutrients. We have a lot of information to share with you on this topic. We also hold Shared Medical Appointments, where you can come visit with in the company of other patients and spend over an hour talking aboutthe challenges of changing the way you eat. This is not a ANDquot;dietANDquot;.It is a way of life that you will keep with you.EXERCISE REGULARLYIt is not important to spend hours in the gym, lifting weights and perspiringheavily. A total of 2-3 hours per week of aerobic (causing you to bemoderately short of breath) exercise is sufficient to improve your health.Talk to us before you begin a new exercise program, if you have heart diseaseor experience shortness of breath or chest pain.REDUCE STRESSChronic emotional and physical stress leads to disease. Ways of reducingstress include meditation, visualization, prayer, yoga and other forms ofrelaxation therapy. Consistency is the sanchez. Find a technique that works foryou and do it every day.CULTIVATE RELATIONSHIPSLoneliness and isolation have a major negative impact on health. Seek outothers who can love, care for and nurture you. Avoid hurtful relationships.MAINTAIN IDEAL BODY WEIGHTThe best way to do this is to do all the things above. Our bodies naturallyfind the right weight if we keep moving and feed ourselves the right food. Ifyour BMI is greater than 25, we strongly recommend a referral to a weightmanagement program. Please speak to us or your family physician aboutavailable programs.AVOID NICOTINE IN ALL FORMSThis includes all tobacco products, whether chewed, smoked, vaped, or rubbed onthe skin. Smoking cessation programs, which can make use of tobaccosubstitutes, medications to suppress cravings and behavior management, areavailable. Please contact your family physician about programs in your area.Referring Provider: GRAY NOGUERA III [[id number]]Allergies As of Date: 05/13/2017 Noted Allergy ReactionVALSARTAN 05/12/2017 5 - Intolerance Comments: Cramps in legs, muscle painVICODIN (HYDROCODONE-ACETAMINOPHE* 10 - AnaphylaxisDate Reviewed: 05/13/2017Reviewed by: Anthony (Adrienne) ADRIENNE Espino - Fully AssessedReason for Visit: New Patient [172]Primary Visit Diagnosis:Preop cardiovascular exam [Z01.810] Other Visit Diagnosis:HOCM (hypertrophic obstructive cardiomyopathy) ([facility]) [I42.1]Order(s):ECG B/O W INTERP (MED OFFICE) [ECG06] Order #: [id number] CONSULT TO DEVICE CLINIC (AG) [7435695] Order #: [id number]: 1 CONSULT TO ELECTROPHYSIOLOGY [6104188] Order #: [id number]: 1 losartan (COZAAR) 100 mg tabletTake 1 tablet by mouth once daily.Disp: 30 tabletRfl: 11 diltiazem CD (CARTIA XT) 240 mg 24 hr capsuleTake 1 capsule by mouth once daily.Disp: 30 capsuleRfl: 11Prescriptions as of 05/13/2017 Sig: LOSARTAN 100 MG TABLET Take 1 tablet by mouth once d* DILTIAZEM SR 240 MG 24 HR CAP Take 1 capsule by mouth once * PRILOSEC OTC ORAL Take by mouth as needed. MELOXICAM 15 MG TABLET Take 15 mg by mouth once miladis*Problem List As Of Date 05/13/2017 Noted Resolved Arthritis of shoulder [M19.019] INVALID FOR* More... DDD (degenerative disc disease), lumbar [M51.36]INVALID FOR* Rotator cuff arthropathy, left [M12.812] INVALID FOR* More... S/P ICD (internal cardiac defibrillator) proced*INVALID FOR* Other instructions from your clinician: LIFESTYLE CHANGE A healthy lifestyle is the most important component of your overall treatment plan. Please give serious thought to the following areas and commit to making oysterman changes. EAT A WHOLE FOOD, PLANT BASED DIET The nutrition your body gets is more important than the medicine you take. What matters most is the overall way you eat. We encourage you to minimize the use of animal products (which include dairy and all meats except fatty fish) and use whole, unprocessed plant foods to provide your protein, vitamins and other nutrients. We have a lot of information to share with you on this topic. We also hold Shared Medical Appointments, where you can come visit with Dr. Fan in the company of other patients and spend over an hour talking about the challenges of changing the way you eat. This is not a diet. It is a way of life that you will keep with you. EXERCISE REGULARLY It is not important to spend hours in the gym, lifting weights and perspiring heavily. A total of 2-3 hours per week of aerobic (causing you to be moderately short of breath) exercise is sufficient to improve your health. Talk to us before you begin a new exercise program, if you have heart disease or experience shortness of breath or chest pain. REDUCE STRESS Chronic emotional and physical stress leads to disease. Ways of reducing stress include meditation, visualization, prayer, yoga and other forms of relaxation therapy. Consistency is the sanchez. Find a technique that works for you and do it every day. CULTIVATE RELATIONSHIPS Loneliness and isolation have a major negative impact on health. Seek out others who can love, care for and nurture you. Avoid hurtful relationships. MAINTAIN IDEAL BODY WEIGHT The best way to do this is to do all the things above. Our bodies naturally find the right weight if we keep moving and feed ourselves the right food. If your BMI is greater than 25, we strongly recommend a referral to a weight management program. Please speak to us or your family physician about available programs. AVOID NICOTINE IN ALL FORMS This includes all tobacco products, whether chewed, smoked, vaped, or rubbed on the skin. Smoking cessation programs, which can make use of tobacco substitutes, medications to suppress cravings and behavior management, are available. Please contact your family physician about programs in your area.Prescriptions ordered this encounter Disp Refills Start End LOSARTAN 100 MG TABLET 30 t* 11 05/13/2017 Route: ORAL Sig: Take 1 tablet by mouth once daily. DILTIAZEM SR 240 MG 24 HR CAP 30 c* 11 05/13/2017 Route: ORAL Sig: Take 1 capsule by mouth once daily.Medications Discontinued During This Encounter losartan (COZAAR) 100 mg tablet 05/13/2017 Class: Historical Med Route: ORAL Sig: Take 100 mg by mouth once daily. Disc: Reason for discontinue is not on file. diltiazem CD (CARTIA XT) 240 mg 24 h* 05/13/2017 Class: Historical Med Route: ORAL Sig: Take 240 mg by mouth once daily. Disc: Reason for discontinue is not on file.Follow-up and Disposition History RecordedClassic SmartForms filed during this visit:Extended VitalsEncounter Number: [id number] Status:Closed by WILL FAN MD on 05/13/17 [facility] PROGRESSon 05-13-2017 PROGRESS HNO ID: [id number] thor: Will Mayorga: (none)Author Type: PhysicianType: Progress NotesFiled: 05/13/2017 5:40 PMNote Text:PERTINENT CARDIAC HISTORYHOCMSyncope - ICD 5/13 ([place] two lead)HTNADHERENCE TO GUIDELINESACE-I or ARB for HF with prior LVEF<40 (NQF 0081) - N/AASA or Plavix for ASHD (NQF 0067) - N/ABeta david for ASHD with prior DC or prior LVEF<40 (NQF 0070) - N/ABeta david for HF with prior LVEF<40 (NQF 0083) - N/AACE-I or ARB for ASHD with DM or prior LVEF<40 (NQF 0066) - N/AStatin therapy for ASHD or FHL or DM - N/ABMI documented and plan if >25 (NQF 0421) - lifestyle recommendation formTobacco use screening and referral (NQ 0028) - lifestyle recommendationformRecommendat ion for whole food, plant based diet - lifestyle recommendationformCLINICAL IMPRESSION/PLAN:Mateus Yi presents with history of hypertrophic cardiomyopathy withinducible moderate LVOT gradient on his current medical therapy. Risk ofperioperative cardiac complications is increased because of the potentialfor hemodynamic change with postoperative tachycardia and volumedepletion. Risk can be decreased by making sure that his pressure is wellsupported and that he is well-hydrated postop. I recommend closeobservation and involvement of cardiology perioperatively.His device was recently checked and found to have normal function. Thisdoes not need to be checked again prior to surgery, but in view of thesite of surgery, therapy should be suspended prior to surgery and turnedback on postoperatively. This can be accomplished by the pacemaker clinicin the preop holding area.His exercise tolerance is stable. He was very clear on this point. He hassome shortness of breath which does not always correlate with the degreeof activity and there is been no change in this pattern. His leftventricular hypertrophy and EKG abnormality make false positive stresstesting likely. Given the stability of his symptoms and overall goodexercise tolerance, preoperative stress testing is not recommended.Long-term, he would benefit from reevaluation of his device programming.This can be optimized in conjunction with the hypertrophic myopathyclinic. I have recommended to him that he be enrolled in the [facility] device clinic,EP department and hypertrophic myopathy clinic. Priorto surgery, no changes in medication are recommended, althoughpostoperatively, I would consider discontinuing diltiazem and restartingbeta david. It is unclear why this was discontinued in the past.I will see him in 6 months and be available for local cardiologyfollow-up.Thank you for asking me to see and make recommendations on Mateus Yi.This report is available to you in the shared medical record.Written and verbal health teaching given to patient, patient verbalizesunderstanding and agrees with treatment plan.This note was generated using [employer] recognition system, and theremay be some incorrect words, spellings, and punctuation that were notnoted in checking the note before saving.DIAGNOSIS FOR VISIT:HOCMPreoperative cardiac risk assessmentHISTORY OF PRESENT ILLNESSMateus Yi is a 67-year-old gentleman who is seen in consultation at [facility] of Dr. Drake, for preoperative cardiac risk assessment.He recently moved from [place] and will be living here for the duration. Heis wishing to establish a long-term relationship. He has an ICD which wasimplanted in 2012 for prophylaxis. He had unexplained syncope and wasdiscovered to have hypertrophic cardiomyopathy. He has received follow upwith electrophysiology in the past.He reports that his activity has been limited somewhat by orthopedicproblems, including shoulder discomfort and knee pain. However, he is ableto walk on treadmill and does some treadmill and weightlifting. He has hadstable exercise tolerance. He's been limited by his orthopedicconsiderations. He has noted intermittent awareness of his breathing andpossibly some dyspnea. However, this occurs somewhat randomly. He canoccasionally have some at rest or with heavy physical activity. He's hadmultiple surgical procedures over the last several years withoutcomplication.He had a hospitalization last fall for unexplained chest discomfort. Nostress test was done during that admission. Reportedly his testing pointedtowards a noncardiac cause, although I have no laboratory studies. He hasa chronically abnormal EKG.He has received no therapies from his ICD. This was interrogated and foundto have stable thresholds in January 2017.He has been on diltiazem for blood pressure control. He reports that hehas been on a beta david on at least one occasion in the past. He cannotrecall why it was discontinued.He's had no recurrent syncope since his ICD was placed. 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- S/P ICD (internal cardiac defibrillator) procedure 03/09/2017PAST SURGICAL HISTORYProcedure Laterality Date- COLONOSCOP W/ OR W/O [facility] SPEC 2009 [place] of [place]- HERNIA REPAIR HX 01/2016 Double- PACEMAKER- PAST SURGICAL HISTORY OF Left 02/2015 orthoscopic left shoulder- PAST SURGICAL HISTORY OF Right 1999 surgery in 1999---orthoscopic in 1992- PAST SURGICAL HISTORY OF 02/2014 Back surgeryNo family history on file.Social History Marital status: Spouse name: Years of education: Number of children:Social History Main Topics Smoking status: Current Some Day Smoker Packs/day: 0.00 Years: 0.00 Types: Cigars Smokeless status: Never UsedREVIEW OF SYSTEMS: General: No chills, fever, weight loss, night sweats. SHEENT: No change in vision or auditory acuity. Respiratory: Noproductive cough. Cardiac: As noted above. GI: No melena. There is ahistory of GERD. : No dysuria. Musculoskeletal: Chronic myalgiasmyalgias. Neurologic: No strokes. Psychiatric: No depression.Endocrine: No diabetes. Hematologic: No anemia.PHYSICAL EXAMINATION: S/he is alert and in no distressVITAL SIGNS: BP 148/84 Pulse 57 Ht 6' 0 (1.83m) Wt 203 lb 8 oz(92.3kg) BMI 27.59 kg/(m2).SHEENT: Skin is warm and dry. Pupils are round and reactive. Retinalvessels are grossly unremarkable. No xanthelasmas appreciated. Pharynxis benign. There is no oral cyanosis. Neck: supple. No adenopathy orthyroid enlargement. Chest: Clear to percussion and auscultation.Trachea is midline. Air entry is equal. There is no chest walltenderness. Cardiac: Regular rhythm. S1 and S2 are normal. PMI isnondisplaced. There is a 1/6 harsh apical systolic ejection murmur. Thisdoes not change with Valsalva or with change in position. There isadditionally a 1/6 murmur of mitral insufficiency. No click is heard.Carotids are brisk without bruits. JVP is less than 10 cm. Abdomen: Softand nontender. There are no pulsatile masses or bruits. No liverenlargement. Bowel sounds are active. : Deferred. Extremities: Noedema. Pulses are intact and symmetrical. No clubbing or cyanosis. Nofemoral bruits. Neurologic: Grossly normal motor and sensory. S/he isalert and oriented x4. Musculoskeletal: No joint deformities.EKG shows sinus bradycardia. There is anterolateral repolarizationabnormality consistent with ischemia, but unchanged from multiple previousEKGs. This is likely related to his hypertrophy.Recent labs were reviewed. Renal function is normal. Magnesium was normal.Previous records were reviewed. He has a [place] [employer] dual-chamberdevice. Atrial and ventricular amplitudes, impedance and thresholds havebeen stable. He has received no therapies recently. He has had nosignificant atrial or ventricular arrhythmias.Vascular screening tests showed no significant disease in 2011. Calciumscore was 0. Coronary angiogram in 2012 showed mild mid LAD bridging withno obstructive disease.Most recent echocardiogram was performed in 01/05. Left ventricle functionwas described as normal. There was septal hypertrophy (19 millimeters)which extended into the apex. Resting LVOT gradient was 10 which increasedto 38 with Valsalva. Pulmonary pressures were normal. There was mildmitral insufficiency and mild SAMElectronically Signed:Will Fan MDFebruary 2017 2:25 PMCC: Gray Noguera III MD Normal [facility] SKIN / NAIL BIOPSY [facility] Vital Signs Date Time Vital Sign Value Performing Clinician Facility 11-13-2024 11:06-0400 Body height 182.9 cm Jose Landry MD Work Phone: [facility] 11-13-2024 11:06-0400 Body mass index (BMI) [Ratio] 23.73 kg/m2 Jose Landry MD Work Phone: [facility] 11-13-2024 11:06-0400 Body weight 79.38 kg Jose Landry MD Work Phone: [facility] 11-13-2024 11:06-0400 Diastolic blood pressure 77 mm[Hg] Jose Landry MD Work Phone: [facility] 11-13-2024 11:06-0400 Heart rate 58 /min Jose Landry MD Work Phone: [facility] 11-13-2024 11:06-0400 Respiratory rate 16 /min Jose Landry MD Work Phone: [facility] 11-13-2024 11:06-0400 SaO2% (BldA) [Mass fraction] 95 % Jose Landry MD Work Phone: [facility] 11-13-2024 11:06-0400 Systolic blood pressure 132 mm[Hg] Jose Landry MD Work Phone: [facility] 11-02-2024 13:26-0400 Body mass index (BMI) [Ratio] 25.26 kg/m2 Anjali Fong JUDICIAL CLERK.UTILIZATION REVIEWER Work Phone: [facility] 11-02-2024 13:26-0400 Body weight 83.2 kg Anjali Fong JUDICIAL CLERK.UTILIZATION REVIEWER Work Phone: [facility] 11-02-2024 13:26-0400 Heart rate 57 /min Anjali Fong JUDICIAL CLERK.UTILIZATION REVIEWER Work Phone: [facility] 11-02-2024 13:26-0400 SaO2% (BldA) [Mass fraction] 95 % Anjali Fong JUDICIAL CLERK.UTILIZATION REVIEWER Work Phone: [facility] 10-13-2024 15:08-0400 Body mass index (BMI) [Ratio] 24.65 kg/m2 Liseth Mazzoni DO Work Phone: [facility] 10-13-2024 15:08-0400 Body temperature 97.11 [degF] Liseth Mazzoni DO Work Phone: [facility] 10-13-2024 15:08-0400 Body weight 81.2 kg Liseth Mazzoni DO Work Phone: [facility] 10-13-2024 15:08-0400 Diastolic blood pressure 69 mm[Hg] Liseth Mazzoni DO Work Phone: [facility] 10-13-2024 15:08-0400 Heart rate 58 /min Liseth Mazzoni DO Work Phone: [facility] 10-13-2024 15:08-0400 Respiratory rate 14 /min Liseth Ortiz DO Work Phone: [facility] 10-13-2024 15:08-0400 SaO2% (BldA) [Mass fraction] 95 % Liseth Ortiz DO Work Phone: [facility] 10-13-2024 15:08-0400 Systolic blood pressure 127 mm[Hg] Liseth Ortiz DO Work Phone: [facility] 10-04-2024 13:05-0400 Body mass index (BMI) [Ratio] 25.1 kg/m2 Prabhu Tyler MD Work Phone: [facility] 10-04-2024 13:05-0400 Body weight 82.7 kg Prabhu Tyler MD Work Phone: [facility] 10-04-2024 13:05-0400 Heart rate 58 /min Prabhu Tyler MD Work Phone: [facility] 10-04-2024 13:05-0400 SaO2% (BldA) [Mass fraction] 96 % Prabhu Tyler MD Work Phone: [facility] 10-03-2024 11:04-0400 Diastolic blood pressure 88 mm[Hg] Obdulia Haagen JUDICIAL CLERK.UTILIZATION REVIEWER Work Phone: [facility] 10-03-2024 11:04-0400 Heart rate 57 /min Obdulia Haagen JUDICIAL CLERK.UTILIZATION REVIEWER Work Phone: [facility] 10-03-2024 11:04-0400 Respiratory rate 16 /min Obdulia Haagen JUDICIAL CLERK.UTILIZATION REVIEWER Work Phone: [facility] 10-03-2024 11:04-0400 SaO2% (BldA) [Mass fraction] 98 % Obdulia Haagen JUDICIAL CLERK.UTILIZATION REVIEWER Work Phone: [facility] 10-03-2024 11:04-0400 Systolic blood pressure 144 mm[Hg] Obdulia Haagen JUDICIAL CLERK.UTILIZATION REVIEWER Work Phone: [facility] 08-07-2024 11:20-0400 Body height 182.9 cm oJse Landry MD Work Phone: [facility] 08-07-2024 11:20-0400 Body mass index (BMI) [Ratio] 23.73 kg/m2 Jose Landry MD Work Phone: [facility] 08-07-2024 11:20-0400 Body weight 79.38 kg Jose Landry MD Work Phone: [facility] 08-07-2024 11:20-0400 Diastolic blood pressure 80 mm[Hg] Jose Landry MD Work Phone: [facility] 08-07-2024 11:20-0400 Heart rate 66 /min Jose Landry MD Work Phone: [facility] 08-07-2024 11:20-0400 SaO2% (BldA) [Mass fraction] 97 % Jose Landry MD Work Phone: [facility] 08-07-2024 11:20-0400 Systolic blood pressure 150 mm[Hg] Jose Landry MD Work Phone: [facility] 08-06-2024 23:04-0400 Body temperature 98.2 [degF] Dr. Davis May MD Work Phone: [facility] 08-06-2024 23:04-0400 Diastolic blood pressure 89 mm[Hg] Dr. Davis May MD Work Phone: [facility] 08-06-2024 23:04-0400 Heart rate 67 /min Dr. Davis May MD Work Phone: [facility] 08-06-2024 23:04-0400 Respiratory rate 18 /min Dr. Davis May MD Work Phone: [facility] 08-06-2024 23:04-0400 SaO2% (BldA) [Mass fraction] 94 % Dr. Davis May MD Work Phone: [facility] 08-06-2024 23:04-0400 Systolic blood pressure 153 mm[Hg] Dr. Davis May MD Work Phone: [facility] 08-06-2024 22:53-0400 Body mass index (BMI) [Ratio] 25.2 kg/m2 Dr. Davis May MD Work Phone: [facility] 08-06-2024 22:53-0400 Body weight 84.[address] Davis May MD Work Phone: [facility] 08-06-2024 22:41-0400 Body height 182.[address] Davis May MD Work Phone: [facility] 07-24-2024 13:44-0400 Body height 182.9 cm Davis May MD Work Phone: [facility] 07-24-2024 13:44-0400 Body mass index (BMI) [Ratio] 24.28 kg/m2 Davis May MD Work Phone: [facility] 07-24-2024 13:44-0400 Body weight 81.19 kg Davis May MD Work Phone: [facility] 07-24-2024 13:44-0400 Diastolic blood pressure 60 mm[Hg] Davis May MD Work Phone: [facility] 07-24-2024 13:44-0400 Heart rate 61 /min Davis May MD Work Phone: [facility] 07-24-2024 13:44-0400 SaO2% (BldA) [Mass fraction] 96 % Davis May MD Work Phone: [facility] 07-24-2024 13:44-0400 Systolic blood pressure 110 mm[Hg] Davis May MD Work Phone: [facility] 07-14-2024 14:31-0400 Body mass index (BMI) [Ratio] 24.22 kg/m2 Liseht Ortiz DO Work Phone: [facility] 07-14-2024 14:31-0400 Body temperature 98.1 [degF] Liseth Peterzoni DO Work Phone: [facility] 07-14-2024 14:31-0400 Body weight 81 kg Liseth Mazzoni DO Work Phone: [facility] 07-14-2024 14:31-0400 Diastolic blood pressure 78 mm[Hg] Liseth Mazzoni DO Work Phone: [facility] 07-14-2024 14:31-0400 Heart rate 62 /min Liseth Mazzoni DO Work Phone: [facility] 07-14-2024 14:31-0400 Respiratory rate 16 /min Liseth Mazzoni DO Work Phone: [facility] 07-14-2024 14:31-0400 SaO2% (BldA) [Mass fraction] 98 % Liseth Peterzoni DO Work Phone: [facility] 07-14-2024 14:31-0400 Systolic blood pressure 132 mm[Hg] Liseth Mazzoni DO Work Phone: [facility] 07-05-2024 09:44-0400 Body mass index (BMI) [Ratio] 24.68 kg/m2 Evelin Cioce JUDICIAL CLERK.UTILIZATION REVIEWER Work Phone: [facility] 07-05-2024 09:44-0400 Body temperature 98.91 [degF] Evelin Cioce JUDICIAL CLERK.UTILIZATION REVIEWER Work Phone: [facility] 07-05-2024 09:44-0400 Body weight 82.56 kg Evelin Cioce JUDICIAL CLERK.UTILIZATION REVIEWER Work Phone: [facility] 07-05-2024 09:44-0400 Diastolic blood pressure 84 mm[Hg] Evelin Cioce JUDICIAL CLERK.UTILIZATION REVIEWER Work Phone: [facility] 07-05-2024 09:44-0400 Heart rate 68 /min Evelin Cioce JUDICIAL CLERK.UTILIZATION REVIEWER Work Phone: [facility] 07-05-2024 09:44-0400 SaO2% (BldA) [Mass fraction] 96 % Evelin Cioce JUDICIAL CLERK.UTILIZATION REVIEWER Work Phone: [facility] 07-05-2024 09:44-0400 Systolic blood pressure 136 mm[Hg] Evelin Reich JUDICIAL CLERK.UTILIZATION REVIEWER Work Phone: [facility] 06-12-2024 11:13-0400 Body height 182.9 cm Bernadette Munguia MD Work Phone: [facility] 06-12-2024 11:13-0400 Body mass index (BMI) [Ratio] 23.33 kg/m2 Bernadette Munguia MD Work Phone: [facility] 06-12-2024 11:13-0400 Body weight 78.02 kg Bernadette Munguia MD Work Phone: [facility] 06-12-2024 11:13-0400 Diastolic blood pressure 76 mm[Hg] Bernadette Munguia MD Work Phone: [facility] 06-12-2024 11:13-0400 Heart rate 68 /min Bernadette Munguia MD Work Phone: [facility] 06-12-2024 11:13-0400 Respiratory rate 12 /min Bernadette Munguia MD Work Phone: [facility] 06-12-2024 11:13-0400 SaO2% (BldA) [Mass fraction] 98 % Bernadette Munguia MD Work Phone: [facility] 06-12-2024 11:13-0400 Systolic blood pressure 152 mm[Hg] Bernadette Munguia MD Work Phone: [facility] 05-30-2024 13:27-0400 Body mass index (BMI) [Ratio] 23.33 kg/m2 Sanna Larsen JUDICIAL CLERK.UTILIZATION REVIEWER Work Phone: [facility] 05-30-2024 13:27-0400 Body temperature 97.5 [degF] Sanna Larsen JUDICIAL CLERK.UTILIZATION REVIEWER Work Phone: [facility] 05-30-2024 13:27-0400 Body weight 78.02 kg Sanna Suppan JUDICIAL CLERK.UTILIZATION REVIEWER Work Phone: [facility] 05-30-2024 13:27-0400 Diastolic blood pressure 72 mm[Hg] Sanna Suppan JUDICIAL CLERK.UTILIZATION REVIEWER Work Phone: [facility] 05-30-2024 13:27-0400 Heart rate 59 /min Sanna Suppan JUDICIAL CLERK.UTILIZATION REVIEWER Work Phone: [facility] 05-30-2024 13:27-0400 SaO2% (BldA) [Mass fraction] 94 % Sanna Suppan JUDICIAL CLERK.UTILIZATION REVIEWER Work Phone: [facility] 05-30-2024 13:27-0400 Systolic blood pressure 126 mm[Hg] Sanna Suppan JUDICIAL CLERK.UTILIZATION REVIEWER Work Phone: [facility] 05-19-2024 11:04-0500 Body temperature 97.7 [degF] Nurse [facility] Work Phone: [facility] 05-19-2024 11:04-0500 Diastolic blood pressure 88 mm[Hg] Nurse [facility] Work Phone: [facility] 05-19-2024 11:04-0500 Heart rate 55 /min Nurse [facility] Work Phone: [facility] 05-19-2024 11:04-0500 Respiratory rate 17 /min Nurse [facility] Work Phone: [facility] 05-19-2024 11:04-0500 SaO2% (BldA) [Mass fraction] 97 % Nurse [facility] Work Phone: [facility] 05-19-2024 11:04-0500 Systolic blood pressure 148 mm[Hg] Nurse [facility] Work Phone: [facility] 05-12-2024 16:10-0500 Body mass index (BMI) [Ratio] 24.82 kg/m2 Davis May MD Work Phone: [facility] 05-12-2024 16:10-0500 Body weight 83.01 kg Davis May MD Work Phone: [facility] 05-12-2024 16:10-0500 Diastolic blood pressure 82 mm[Hg] Davis May MD Work Phone: [facility] 05-12-2024 16:10-0500 Heart rate 56 /min Davis May MD Work Phone: [facility] 05-12-2024 16:10-0500 SaO2% (BldA) [Mass fraction] 96 % Davis May MD Work Phone: [facility] 05-12-2024 16:10-0500 Systolic blood pressure 122 mm[Hg] Davis May MD Work Phone: [facility] 05-10-2024 11:32-0500 Diastolic blood pressure 87 mm[Hg] Jose Landry MD Work Phone: [facility] 05-10-2024 11:32-0500 Heart rate 57 /min Jose Landry MD Work Phone: [facility] 05-10-2024 11:32-0500 Respiratory rate 18 /min Jose Landry MD Work Phone: [facility] 05-10-2024 11:32-0500 SaO2% (BldA) [Mass fraction] 98 % Jose Landry MD Work Phone: [facility] 05-10-2024 11:32-0500 Systolic blood pressure 151 mm[Hg] Jsoe Landry MD Work Phone: [facility] 04-24-2024 13:27-0500 Diastolic blood pressure 90 mm[Hg] Lora Thomas MD Work Phone: [facility] 04-24-2024 13:27-0500 Heart rate 60 /min Lora Thomas MD Work Phone: [facility] 04-24-2024 13:27-0500 Respiratory rate 18 /min Lora Thomas MD Work Phone: [facility] 04-24-2024 13:27-0500 Systolic blood pressure 160 mm[Hg] Lora Thomas MD Work Phone: [facility] 04-14-2024 13:52-0500 Body height 182.9 cm Davis May MD Work Phone: [facility] 04-14-2024 13:52-0500 Body mass index (BMI) [Ratio] 24.14 kg/m2 Davis May MD Work Phone: [facility] 04-14-2024 13:52-0500 Body temperature 98.01 [degF] Davis May MD Work Phone: [facility] 04-14-2024 13:52-0500 Body weight 80.74 kg Davis May MD Work Phone: [facility] 04-14-2024 13:52-0500 Diastolic blood pressure 64 mm[Hg] Davis May MD Work Phone: [facility] 04-14-2024 13:52-0500 Heart rate 60 /min Davis May MD Work Phone: [facility] 04-14-2024 13:52-0500 SaO2% (BldA) [Mass fraction] 97 % Davis May MD Work Phone: [facility] 04-14-2024 13:52-0500 Systolic blood pressure 110 mm[Hg] Davis May MD Work Phone: [facility] 04-12-2024 15:34-0500 Body mass index (BMI) [Ratio] 24.37 kg/m2 Glendymariano Ayala JUDICIAL CLERK.UTILIZATION REVIEWER Work Phone: [facility] 04-12-2024 15:34-0500 Body weight 81.5 kg Glendy Ayala JUDICIAL CLERK.UTILIZATION REVIEWER Work Phone: [facility] 04-12-2024 15:34-0500 Diastolic blood pressure 76 mm[Hg] Glendymariano Ayala JUDICIAL CLERK.UTILIZATION REVIEWER Work Phone: [facility] 04-12-2024 15:34-0500 Heart rate 68 /min Glendy Ayala JUDICIAL CLERK.UTILIZATION REVIEWER Work Phone: [facility] 04-12-2024 15:34-0500 Respiratory rate 16 /min Glendy Ayala JUDICIAL CLERK.UTILIZATION REVIEWER Work Phone: [facility] 04-12-2024 15:34-0500 Systolic blood pressure 130 mm[Hg] Glendy Ayala JUDICIAL CLERK.UTILIZATION REVIEWER Work Phone: [facility] 04-12-2024 13:05-0500 Body mass index (BMI) [Ratio] 24.01 kg/m2 aNthan Ruth MD Work Phone: [facility] 04-12-2024 13:05-0500 Body weight 80.29 kg Nathan Ruth MD Work Phone: [facility] 04-12-2024 13:05-0500 Diastolic blood pressure 75 mm[Hg] Nathan Ruth MD Work Phone: [facility] 04-12-2024 13:05-0500 Heart rate 59 /min Nathan Ruth MD Work Phone: [facility] 04-12-2024 13:05-0500 Systolic blood pressure 122 mm[Hg] Nathan Ruth MD Work Phone: [facility] 01-18-2024 14:00-0400 Body height 182.9 cm Davis May MD Work Phone: [facility] 01-18-2024 14:00-0400 Body mass index (BMI) [Ratio] 24.88 kg/m2 Davis May MD Work Phone: [facility] 01-18-2024 14:00-0400 Body weight 83.2 kg Davis May MD Work Phone: [facility] 01-18-2024 14:00-0400 Diastolic blood pressure 66 mm[Hg] Davis May MD Work Phone: [facility] 01-18-2024 14:00-0400 Heart rate 58 /min Davis May MD Work Phone: [facility] 01-18-2024 14:00-0400 SaO2% (BldA) [Mass fraction] 95 % Davis May MD Work Phone: [facility] 01-18-2024 14:00-0400 Systolic blood pressure 122 mm[Hg] Davis May MD Work Phone: [facility] 12-02-2023 10:06-0400 Body mass index (BMI) [Ratio] 24.62 kg/m2 Jason Quiroz MD Work Phone: [facility] 12-02-2023 10:06-0400 Body temperature 97.81 [degF] Jason Quiroz MD Work Phone: [facility] 12-02-2023 10:06-0400 Body weight 82.33 kg Jason Quiroz MD Work Phone: [facility] 12-02-2023 10:06-0400 Diastolic blood pressure 79 mm[Hg] Jason Quiroz MD Work Phone: [facility] 12-02-2023 10:06-0400 Heart rate 54 /min Jason Quiroz MD Work Phone: [facility] 12-02-2023 10:06-0400 SaO2% (BldA) [Mass fraction] 98 % Jason Quiroz MD Work Phone: [facility] 12-02-2023 10:06-0400 Systolic blood pressure 165 mm[Hg] Jason Quiroz MD Work Phone: [facility] 10-20-2023 12:29-0400 Body height 182.9 cm Evelin Cioce JUDICIAL CLERK.UTILIZATION REVIEWER Work Phone: [facility] 10-20-2023 12:29-0400 Body mass index (BMI) [Ratio] 24.9 kg/m2 Evelin Cioce JUDICIAL CLERK.UTILIZATION REVIEWER Work Phone: [facility] 10-20-2023 12:29-0400 Body temperature 98.91 [degF] Evelin Cioce JUDICIAL CLERK.UTILIZATION REVIEWER Work Phone: [facility] 10-20-2023 12:29-0400 Body weight 83.28 kg Evelin Cioce JUDICIAL CLERK.UTILIZATION REVIEWER Work Phone: [facility] 10-20-2023 12:29-0400 Diastolic blood pressure 76 mm[Hg] Evelin Cioce JUDICIAL CLERK.UTILIZATION REVIEWER Work Phone: [facility] 10-20-2023 12:29-0400 Heart rate 62 /min Evelin Cioce JUDICIAL CLERK.UTILIZATION REVIEWER Work Phone: [facility] 10-20-2023 12:29-0400 SaO2% (BldA) [Mass fraction] 95 % Evelin Cioce JUDICIAL CLERK.UTILIZATION REVIEWER Work Phone: [facility] 10-20-2023 12:29-0400 Systolic blood pressure 130 mm[Hg] Evelin Cioce JUDICIAL CLERK.UTILIZATION REVIEWER Work Phone: [facility] 10-04-2023 15:17-0400 Body height 184.2 cm Bernadette Munguia MD Work Phone: [facility] 10-04-2023 15:17-0400 Body mass index (BMI) [Ratio] 24.42 kg/m2 Bernadette Munguia MD Work Phone: [facility] 10-04-2023 15:17-0400 Body weight 82.83 kg Bernadette Munguia MD Work Phone: [facility] 10-04-2023 15:17-0400 Diastolic blood pressure 85 mm[Hg] Bernadette Munguia MD Work Phone: [facility] 10-04-2023 15:17-0400 Heart rate 61 /min Bernadette Munguia MD Work Phone: [facility] 10-04-2023 15:17-0400 SaO2% (BldA) [Mass fraction] 95 % Bernadette Munguia MD Work Phone: [facility] 10-04-2023 15:17-0400 Systolic blood pressure 154 mm[Hg] Bernadette Munguia MD Work Phone: [facility] 09-28-2023 11:38-0400 Body height 184.2 cm Derrek Bear MD Work Phone: [facility] 09-28-2023 11:38-0400 Body mass index (BMI) [Ratio] 23.68 kg/m2 Derrek Bear MD Work Phone: [facility] 09-28-2023 11:38-0400 Body temperature 97.9 [degF] Derrek Bear MD Work Phone: [facility] 09-28-2023 11:38-0400 Body weight 80.3 kg Derrek Bear MD Work Phone: [facility] 09-28-2023 11:38-0400 Diastolic blood pressure 83 mm[Hg] Derrek Bear MD Work Phone: [facility] Comment on above: Pt c/o frequent h/a, nausea, dizziness, none at this time. No distress noted. notified. 09-28-2023 11:38-0400 Heart rate 54 /min Derrek Bear MD Work Phone: [facility] Comment on above: Pt c/o frequent h/a, nausea, dizziness. No distress noted. notified. 09-28-2023 11:38-0400 SaO2% (BldA) [Mass fraction] 97 % Derrek Bear MD Work Phone: [facility] 09-28-2023 11:38-0400 Systolic blood pressure 148 mm[Hg] Derrek Bear MD Work Phone: [facility] Comment on above: Pt c/o frequent h/a, nausea, dizziness, none at this time. No distress noted. notified. 09-02-2023 10:31-0400 Body temperature 97.2 [degF] Nurse [facility] Work Phone: [facility] 09-02-2023 10:31-0400 Diastolic blood pressure 86 mm[Hg] Nurse [facility] Work Phone: [facility] 09-02-2023 10:31-0400 Heart rate 62 /min Nurse [facility] Work Phone: [facility] 09-02-2023 10:31-0400 Respiratory rate 16 /min Nurse [facility] Work Phone: [facility] 09-02-2023 10:31-0400 SaO2% (BldA) [Mass fraction] 95 % Nurse [facility] Work Phone: [facility] 09-02-2023 10:31-0400 Systolic blood pressure 148 mm[Hg] Nurse [facility] Work Phone: [facility] 09-01-2023 10:30-0400 Body height 184.2 cm Jason Quiroz MD Work Phone: [facility] 09-01-2023 10:30-0400 Body mass index (BMI) [Ratio] 24.34 kg/m2 Jason Quiroz MD Work Phone: [facility] 09-01-2023 10:30-0400 Body temperature 98.71 [degF] Jason Quiroz MD Work Phone: [facility] 09-01-2023 10:30-0400 Body weight 82.56 kg Jason Quiroz MD Work Phone: [facility] 09-01-2023 10:30-0400 Diastolic blood pressure 86 mm[Hg] Jason Quiroz MD Work Phone: [facility] 09-01-2023 10:30-0400 Heart rate 65 /min Jason Quiroz MD Work Phone: [facility] 09-01-2023 10:30-0400 Respiratory rate 18 /min Jason Quiroz MD Work Phone: [facility] 09-01-2023 10:30-0400 SaO2% (BldA) [Mass fraction] 97 % Jason Quiroz MD Work Phone: [facility] 09-01-2023 10:30-0400 Systolic blood pressure 154 mm[Hg] Jason Quiroz MD Work Phone: [facility] 08-09-2023 10:29-0400 Body height 182.9 cm Myra Gallardo JUDICIAL CLERK.UTILIZATION REVIEWER Work Phone: [facility] 08-09-2023 10:29-0400 Body mass index (BMI) [Ratio] 23.98 kg/m2 Myra Gallardo JUDICIAL CLERK.UTILIZATION REVIEWER Work Phone: [facility] 08-09-2023 10:290400 Body temperature 97.9 [degF] Myra Gallardo JUDICIAL CLERK.UTILIZATION REVIEWER Work Phone: [facility] 08-09-2023 10:290400 Body weight 80.2 kg Myra Gallardo JUDICIAL CLERK.UTILIZATION REVIEWER Work Phone: [facility] 08-09-2023 10:29-0400 Diastolic blood pressure 62 mm[Hg] Myra Gallardo JUDICIAL CLERK.UTILIZATION REVIEWER Work Phone: [facility] Comment on above: Patient states headache patient is drink ing water 08-09-2023 10:29-0400 Heart rate 55 /min Myra Gallardo JUDICIAL CLERK.UTILIZATION REVIEWER Work Phone: [facility] 08-09-2023 10:29-0400 SaO2% (BldA) [Mass fraction] 97 % Myra Gallardo JUDICIAL CLERK.UTILIZATION REVIEWER Work Phone: [facility] 08-09-2023 10:29-0400 Systolic blood pressure 111 mm[Hg] Myra Gallardo JUDICIAL CLERK.UTILIZATION REVIEWER Work Phone: [facility] Comment on above: Patient states headache patient is drink ing water 07-16-2023 09:13-0400 Body height 182.9 cm Davis May MD Work Phone: [facility] 07-16-2023 09:130400 Body mass index (BMI) [Ratio] 24.28 kg/m2 Davis May MD Work Phone: [facility] 07-16-2023 09:130400 Body weight 81.19 kg Davis May MD Work Phone: [facility] 07-16-2023 09:13-0400 Diastolic blood pressure 64 mm[Hg] Davis May MD Work Phone: [facility] 07-16-2023 09:13-0400 Heart rate 55 /min Davis May MD Work Phone: [facility] 07-16-2023 09:13-0400 SaO2% (BldA) [Mass fraction] 98 % Davis May MD Work Phone: [facility] 07-16-2023 09:13-0400 Systolic blood pressure 116 mm[Hg] Davis May MD Work Phone: [facility] 07-09-2023 11:04-0400 Body mass index (BMI) [Ratio] 23.86 kg/m2 Liseth Mazzoni DO Work Phone: [facility] 07-09-2023 11:04-0400 Body temperature 97.9 [degF] Liseth Mazzoni DO Work Phone: [facility] 07-09-2023 11:04-0400 Body weight 79.8 kg Liseth Mazzoni DO Work Phone: [facility] 07-09-2023 11:04-0400 Diastolic blood pressure 68 mm[Hg] Liseth Mazzoni DO Work Phone: [facility] 07-09-2023 11:04-0400 Heart rate 57 /min Liseth Mazzoni DO Work Phone: [facility] 07-09-2023 11:04-0400 Respiratory rate 19 /min Liseth Mazzoni DO Work Phone: [facility] 07-09-2023 11:04-0400 SaO2% (BldA) [Mass fraction] 98 % Liseth Mazzoni DO Work Phone: [facility] 07-09-2023 11:04-0400 Systolic blood pressure 124 mm[Hg] Liseth Mazzoni DO Work Phone: [facility] 07-06-2023 10:10-0400 Diastolic blood pressure 81 mm[Hg] Derrek Bear MD Work Phone: [facility] 07-06-2023 10:10-0400 Heart rate 55 /min Derrek Bear MD Work Phone: [facility] 07-06-2023 10:10-0400 Respiratory rate 16 /min Derrek Bear MD Work Phone: [facility] 07-06-2023 10:10-0400 SaO2% (BldA) [Mass fraction] 94 % Derrek Bear MD Work Phone: [facility] 07-06-2023 10:10-0400 Systolic blood pressure 129 mm[Hg] Derrek Bear MD Work Phone: [facility] 07-06-2023 09:29-0400 Body height 182.9 cm Derrek Bear MD Work Phone: [facility] 07-06-2023 09:29-0400 Body temperature 97.9 [degF] Derrek Bear MD Work Phone: [facility] 07-06-2023 09:29-0400 Body weight 79.38 kg Derrek Bear MD Work Phone: [facility] 07-02-2023 14:33-0400 Body temperature 97.7 [degF] Treatment Wstr Work Phone: [facility] 07-02-2023 14:33-0400 Diastolic blood pressure 81 mm[Hg] Treatment Wstr Work Phone: [facility] 07-02-2023 14:33-0400 Heart rate 60 /min Treatment Wstr Work Phone: [facility] 07-02-2023 14:33-0400 SaO2% (BldA) [Mass fraction] 98 % Treatment Wstr Work Phone: [facility] 07-02-2023 14:33-0400 Systolic blood pressure 157 mm[Hg] Treatment Wstr Work Phone: [facility] 06-30-2023 14:09-0400 Body temperature 97.39 [degF] Treatment Wstr Work Phone: [facility] 06-30-2023 14:09-0400 Diastolic blood pressure 73 mm[Hg] Treatment Wstr Work Phone: [facility] 06-30-2023 14:09-0400 Heart rate 57 /min Treatment Wstr Work Phone: [facility] 06-30-2023 14:09-0400 SaO2% (BldA) [Mass fraction] 99 % Treatment Wstr Work Phone: [facility] 06-30-2023 14:09-0400 Systolic blood pressure 139 mm[Hg] Treatment Wstr Work Phone: [facility] 06-28-2023 09:11-0400 Body temperature 99 [degF] Treatment Wstr Work Phone: [facility] 06-28-2023 09:11-0400 Diastolic blood pressure 76 mm[Hg] Treatment Wstr Work Phone: [facility] 06-28-2023 09:11-0400 Heart rate 57 /min Treatment Wstr Work Phone: [facility] 06-28-2023 09:11-0400 Respiratory rate 18 /min Treatment Wstr Work Phone: [facility] 06-28-2023 09:11-0400 Systolic blood pressure 128 mm[Hg] Treatment Wstr Work Phone: [facility] 06-25-2023 14:56-0400 Body temperature 97.81 [degF] Treatment Wstr Work Phone: [facility] 06-25-2023 14:56-0400 Diastolic blood pressure 73 mm[Hg] Treatment Wstr Work Phone: [facility] 06-25-2023 14:56-0400 Heart rate 57 /min Treatment Wstr Work Phone: [facility] 06-25-2023 14:56-0400 Respiratory rate 16 /min Treatment Wstr Work Phone: [facility] 06-25-2023 14:56-0400 Systolic blood pressure 130 mm[Hg] Treatment Wstr Work Phone: [facility] 06-23-2023 11:00-0400 Body temperature 98.01 [degF] Treatment Wstr Work Phone: [facility] 06-23-2023 11:00-0400 Diastolic blood pressure 86 mm[Hg] Treatment Wstr Work Phone: [facility] 06-23-2023 11:00-0400 Heart rate 58 /min Treatment Wstr Work Phone: [facility] 06-23-2023 11:00-0400 Respiratory rate 16 /min Treatment Wstr Work Phone: [facility] 06-23-2023 11:00-0400 SaO2% (BldA) [Mass fraction] 99 % Treatment Wstr Work Phone: [facility] 06-23-2023 11:00-0400 Systolic blood pressure 156 mm[Hg] Treatment Wstr Work Phone: [facility] 06-18-2023 10:42-0400 Body height 180.3 cm Lashondajose Aleman Work Phone: [facility] 06-18-2023 10:42-0400 Body temperature 98.6 [degF] Lashonda Aleman Work Phone: [facility] 06-18-2023 10:42-0400 Body weight 83.92 kg Lashonda Aleman Work Phone: [facility] 06-18-2023 10:42-0400 Diastolic blood pressure 76 mm[Hg] Lashonda Aleman Work Phone: [facility] 06-18-2023 10:42-0400 Heart rate 64 /min Lashonda Aleman Work Phone: [facility] 06-18-2023 10:42-0400 SaO2% (BldA) [Mass fraction] 97 % Lashonda Aleman Work Phone: [facility] 06-18-2023 10:42-0400 Systolic blood pressure 116 mm[Hg] Lashonda Aleman Work Phone: [facility] 06-15-2023 12:28-0400 Body height 182.9 cm Derrek Bear MD Work Phone: [facility] 06-15-2023 12:28-0400 Body temperature 97.59 [degF] Derrek Bear MD Work Phone: [facility] 06-15-2023 12:28-0400 Body weight 83.8 kg Derrek Bear MD Work Phone: [facility] 06-15-2023 12:28-0400 Diastolic blood pressure 68 mm[Hg] Derrek Bear MD Work Phone: [facility] 06-15-2023 12:28-0400 Heart rate 60 /min Derrek Bear MD Work Phone: [facility] 06-15-2023 12:28-0400 SaO2% (BldA) [Mass fraction] 97 % Derrek Bear MD Work Phone: [facility] 06-15-2023 12:28-0400 Systolic blood pressure 142 mm[Hg] Derrek Bear MD Work Phone: [facility] 03-29-2023 13:40-0500 Body height 182.[address] Esteban Renee Work Phone: [facility] 03-29-2023 13:40-0500 Body weight 78.[address] Esteban Renee Work Phone: [facility] 03-29-2023 13:05-0500 Body temperature 98.6 [degF] Dr. Esteban Renee Work Phone: [facility] 03-29-2023 13:05-0500 Diastolic blood pressure 67 mm[Hg] Dr. Esteban Renee Work Phone: [facility] 03-29-2023 13:05-0500 Heart rate 61 /min Dr. Esteban Renee Work Phone: [facility] 03-29-2023 13:05-0500 Respiratory rate 14 /min Dr. Esteban Renee Work Phone: [facility] 03-29-2023 13:05-0500 SaO2% (BldA) [Mass fraction] 99 % Dr. Esteban Renee Work Phone: [facility] 03-29-2023 13:05-0500 Systolic blood pressure 125 mm[Hg] Dr. Esteban Renee Work Phone: [facility] 03-29-2023 06:00-0500 Body mass index (BMI) [Ratio] 23.4 kg/m2 Dr. Esteban Renee Work Phone: [facility] 03-26-2023 23:31-0500 Diastolic blood pressure 79 mm[Hg] [facility] 03-26-2023 23:31-0500 Heart rate 79 /min [facility] 03-26-2023 23:31-0500 Respiratory rate 18 /min [facility] 03-26-2023 23:31-0500 SaO2% (BldA) [Mass fraction] 97 % [facility] 03-26-2023 23:31-0500 Systolic blood pressure 136 mm[Hg] [facility] 03-26-2023 18:42-0500 Body height 182.88 cm [facility] 03-26-2023 18:42-0500 Body mass index (BMI) [Ratio] 25 kg/m2 [facility] 03-26-2023 18:42-0500 Body temperature 97.2 [degF] [facility] 03-26-2023 18:42-0500 Body weight 83.7 kg [facility] 03-04-2023 09:45-0500 Body temperature 98.1 [degF] Nurse [facility] Work Phone: [facility] 03-04-2023 09:45-0500 Diastolic blood pressure 79 mm[Hg] Nurse [facility] Work Phone: [facility] 03-04-2023 09:45-0500 Heart rate 55 /min Nurse [facility] Work Phone: [facility] 03-04-2023 09:45-0500 Respiratory rate 18 /min Nurse [facility] Work Phone: [facility] 03-04-2023 09:45-0500 SaO2% (BldA) [Mass fraction] 96 % Nurse [facility] Work Phone: [facility] 03-04-2023 09:45-0500 Systolic blood pressure 137 mm[Hg] Nurse [facility] Work Phone: [facility] 02-08-2023 14:47-0500 Body height 182.9 cm Myra Gallardo JUDICIAL CLERK.UTILIZATION REVIEWER Work Phone: [facility] 02-08-2023 14:47-0500 Body temperature 98.71 [degF] Myra Gallardo JUDICIAL CLERK.UTILIZATION REVIEWER Work Phone: [facility] 02-08-2023 14:47-0500 Body weight 84.46 kg Myra Gallardo JUDICIAL CLERK.UTILIZATION REVIEWER Work Phone: [facility] 02-08-2023 14:47-0500 Diastolic blood pressure 80 mm[Hg] Myra Gallardo JUDICIAL CLERK.UTILIZATION REVIEWER Work Phone: [facility] 02-08-2023 14:47-0500 Heart rate 57 /min Myra Gallardo JUDICIAL CLERK.UTILIZATION REVIEWER Work Phone: [facility] 02-08-2023 14:47-0500 SaO2% (BldA) [Mass fraction] 97 % Myra Gallardo JUDICIAL CLERK.UTILIZATION REVIEWER Work Phone: [facility] 02-08-2023 14:47-0500 Systolic blood pressure 144 mm[Hg] Myra Gallardo JUDICIAL CLERK.UTILIZATION REVIEWER Work Phone: [facility] 09-30-2022 14:01-0400 Body weight 83.92 kg Evelin Reich JUDICIAL CLERK.UTILIZATION REVIEWER Work Phone: [facility] 09-23-2022 12:39-0400 Body height 182.9 cm Derrek Bear MD Work Phone: [facility] 09-23-2022 12:39-0400 Body temperature 98.4 [degF] Derrek Bear MD Work Phone: [facility] 09-23-2022 12:39-0400 Body weight 85.28 kg Derrek Bear MD Work Phone: [facility] 09-23-2022 12:39-0400 Diastolic blood pressure 80 mm[Hg] Derrek Bear MD Work Phone: [facility] 09-23-2022 12:39-0400 Heart rate 60 /min Derrek Bear MD Work Phone: [facility] 09-23-2022 12:39-0400 SaO2% (BldA) [Mass fraction] 96 % Derrek Bear MD Work Phone: [facility] 09-23-2022 12:39-0400 Systolic blood pressure 133 mm[Hg] Derrek Bear MD Work Phone: [facility] 07-13-2022 15:39-0400 Body weight 85.73 kg Bernadette Munguia MD Work Phone: [facility] 07-13-2022 15:39-0400 Diastolic blood pressure 90 mm[Hg] Bernadette Munguia MD Work Phone: [facility] 07-13-2022 15:39-0400 Heart rate 62 /min Bernadette Munguia MD Work Phone: [facility] 07-13-2022 15:39-0400 SaO2% (BldA) [Mass fraction] 98 % Bernadette Munguia MD Work Phone: [facility] 07-13-2022 15:39-0400 Systolic blood pressure 140 mm[Hg] Bernadette Munguia MD Work Phone: [facility] 04-20-2022 10:01-0500 Body weight 84.82 kg Davis May MD Work Phone: [facility] 04-20-2022 10:01-0500 Diastolic blood pressure 88 mm[Hg] Davis May MD Work Phone: [facility] 04-20-2022 10:01-0500 Heart rate 54 /min Davis May MD Work Phone: [facility] 04-20-2022 10:01-0500 SaO2% (BldA) [Mass fraction] 97 % Davis May MD Work Phone: [facility] 04-20-2022 10:01-0500 Systolic blood pressure 147 mm[Hg] Davis May MD Work Phone: [facility] 12-22-2021 15:21-0400 Body height 182.9 cm Davis May MD Work Phone: [facility] 12-22-2021 15:21-0400 Body weight 84.73 kg Davis May MD Work Phone: [facility] 12-22-2021 15:21-0400 Diastolic blood pressure 92 mm[Hg] Davis May MD Work Phone: [facility] 12-22-2021 15:21-0400 Heart rate 53 /min Davis May MD Work Phone: [facility] 12-22-2021 15:21-0400 SaO2% (BldA) [Mass fraction] 98 % Davis May MD Work Phone: [facility] 12-22-2021 15:21-0400 Systolic blood pressure 160 mm[Hg] Davis May MD Work Phone: [facility] 10-20-2021 13:01-0400 Body height 182.9 cm Bernadette Munguia MD Work Phone: [facility] 10-20-2021 13:010400 Body weight 84.37 kg Bernadette Munguia MD Work Phone: [facility] 10-20-2021 13:01-0400 Diastolic blood pressure 80 mm[Hg] Bernadette Munguia MD Work Phone: [facility] 10-20-2021 13:01-0400 Heart rate 50 /min Bernadette Munguia MD Work Phone: [facility] 10-20-2021 13:01-0400 SaO2% (BldA) [Mass fraction] 97 % Bernadette Munguia MD Work Phone: [facility] 10-20-2021 13:01-0400 Systolic blood pressure 126 mm[Hg] Bernadette Munguia MD Work Phone: [facility] 10-16-2021 11:07-0400 Body weight 83.01 kg Davis May MD Work Phone: [facility] 10-16-2021 11:07-0400 Diastolic blood pressure 78 mm[Hg] Davis May MD Work Phone: [facility] 10-16-2021 11:07-0400 Heart rate 59 /min Davis May MD Work Phone: [facility] 10-16-2021 11:07-0400 SaO2% (BldA) [Mass fraction] 99 % Davis May MD Work Phone: [facility] 10-16-2021 11:07-0400 Systolic blood pressure 136 mm[Hg] Davis May MD Work Phone: [facility] Encounters Encounter Date Encounter Type Care Provider Facility Start: 12-15-2024 End: 12-15-2024 ambulatory NATHAN RUTH Facility:[facility] Start: 12-12-2024 End: 12-12-2024 ambulatory ANJALI FONG Facility:[facility] Start: 12-11-2024 End: 12-11-2024 ambulatory KELLEY FREGOSO Facility:[facility] Start: 11-28-2024 End: 11-28-2024 ambulatory PRABHU TYLER Facility:[facility] Start: 11-27-2024 End: 11-27-2024 ambulatory Evelin Reich JUDICIAL CLERK.UTILIZATION REVIEWER Work Phone: Endocrinology Comment on above: sensors Start: 11-27-2024 Patient encounter procedure DAVIS MAY [facility] Start: 11-24-2024 End: 11-27-2024 ambulatory Evelin Reich JUDICIAL CLERK.UTILIZATION REVIEWER Work Phone: Endocrinology Comment on above: my Rx Start: 11-21-2024 End: 11-21-2024 Patient encounter procedure Elly Quintero Research Coordinator [facility] Start: 11-21-2024 End: 11-21-2024 Telephone encounter Elly Quintero Research Coordinator Clinical Research Start: 11-19-2024 End: 11-21-2024 ambulatory Marcos Farrell PA-C Work Phone: Dermatology Start: 11-19-2024 End: 11-21-2024 Patient encounter procedure Marcos Farrell PA-C Work Phone: Dermatology Comment on above: date of next appoint ment not in mychart Start: 11-14-2024 End: 11-14-2024 ambulatory LISETH ORTIZ Facility:[facility] Start: 11-13-2024 End: 11-13-2024 Patient encounter procedure Jose Landry MD Work Phone: Vascular Medicine Comment on above: Superior mesenteric vein thrombosis (HCC) (Primary Dx); Portal vein thrombosis; Anticoagulation management encounter; Autoimmune hepatitis (HCC); Other cirrhosis of liver (HCC) Start: 11-13-2024 End: 11-13-2024 ambulatory DAVIS MAY Facility:[facility] Start: 11-11-2024 End: 11-13-2024 ambulatory Anjali Fong JUDICIAL CLERK.UTILIZATION REVIEWER Work Phone: Pain Management Comment on above: my visit with you on November 02 Start: 11-09-2024 End: 11-10-2024 Refill Sanna Larsen JUDICIAL CLERK.UTILIZATION REVIEWER Work Phone: [facility] [place] Comment on above: Refill Request Start: 11-07-2024 ambulatory JOSE LANDRY Facilit y:[facility] Start: 11-07-2024 End: 11-07-2024 Subsequent hospital visit by physician [facility] Robyn (I-Stat) Work Phone: Radiology Comment on above: Portal vein thrombos is [I81] Start: 11-06-2024 End: 11-06-2024 ambulatory LISETH ORTIZ Facility:[facility] Start: 11-03-2024 End: 11-03-2024 ambulatory [facility] Facility:[facility] Start: 11-02-2024 End: 11-03-2024 Telephone encounter Prabhu Tyler MD Work Phone: Pain Management Comment on above: Cardiac Clearance (A nticoagulation ) Cervical spondylosis (Primary Dx); Cervical facet joint syndrome Start: 11-02-2024 End: 11-02-2024 Patient encounter procedure Anjali Fong APRN.UTILIZATION REVIEWER Work Phone: Pain Management Comment on above: Cervical spondylosis (Primary Dx); Cervical facet joint syndrome Start: 11-02-2024 End: 11-02-2024 ambulatory ANJALI FONG Facility:[facility] Start: 10-26-2024 End: 10-26-2024 ambulatory LISETH ORTIZ Facility:[facility] Start: 10-13-2024 End: 10-13-2024 Patient encounter procedure Liseth Ortiz DO Work Phone: Hematology/Oncology Start: 10-13-2024 End: 10-14-2024 ambulatory Liseth Ortiz DO Work Phone: Hematology/Oncology Comment on above: Chronic ITP (idiopat hic thrombocytopenia) (HCC) (Primary Dx); Type 2 diabetes mellitus without complication, without long-term current use of insulin (HCC); Iron deficiency anemia due to chronic blood loss; Thrombocytopenia Start: 10-10-2024 End: 10-10-2024 Telephone encounter Prabhu Tyler MD Work Phone: Pain Management Comment on above: Results (Cervical CT Scan) Start: 10-08-2024 End: 10-09-2024 ambulatory Prabhu Tyler MD Work Phone: Pain Management Comment on above: I had my CT Start: 10-06-2024 ambulatory DAVIS MAY Facility :[facility] Start: 10-06-2024 End: 10-06-2024 Subsequent hospital visit by physician [facility] Wstr (I-Stat) Work Phone: Cat Scan Comment on above: Spinal stenosis of c ervical region [M48.02] Start: 10-05-2024 End: 12-05-2024 Follow-up encounter Gretta Bowles APRN.UTILIZATION REVIEWER Work Phone: Kidney Medicine Start: 10-05-2024 End: 10-05-2024 ambulatory [facility] Facility:[facility] Start: 10-04-2024 End: 10-04-2024 Patient encounter procedure Prabhu Tyler MD Work Phone: Pain Management Comment on above: Cervical spondylosis (Primary Dx); Neck pain Start: 10-04-2024 End: 10-04-2024 ambulatory [facility] Facility:[facility] Start: 10-03-2024 End: 10-03-2024 E-mail encounter from caregiver [facility] Provider Pain Management Start: 10-03-2024 End: 10-03-2024 Patient encounter procedure [facility] Provider Pain Management Comment on above: Instructions & Requi rements for Your Upcoming Appointment Start: 10-03-2024 End: 10-03-2024 Office outpatient visit 15 minutes Obdulia Martínez APRN.UTILIZATION REVIEWER Work Phone: Family Medicine [place] Comment on above: Neck pain (Primary D x); Spinal stenosis of cervical region; Acute pain of left knee Start: 10-03-2024 End: 10-03-2024 ambulatory [facility] Facility:[facility] Start: 09-29-2024 End: 09-29-2024 ambulatory Davis May MD Work Phone: Family Medicine [place] Comment on above: tetanus shot Start: 09-29-2024 End: 11-29-2024 Follow-up encounter Nathan Ruth MD Work Phone: Kidney Medicine Start: 09-26-2024 End: 09-26-2024 ambulatory [facility] Facility:[facility] Start: 09-18-2024 End: 09-20-2024 Refill Josefa Ladd MD Work Phone: Gastroenterology Comment on above: Refill Request Start: 09-04-2024 End: 09-04-2024 ambulatory Dimple Payne RN Work Phone: [employer] Comment on above: ACTessy MISHEL RN ( [facility]) Start: 09-04-2024 End: 09-04-2024 Patient encounter procedure Grady Gregory [facility] Comment on above: Patient Update ([facility]- Pharmacy Consult- denial ) Start: 09-02-2024 End: 11-02-2024 Refill Evelin Reich APRN.UTILIZATION REVIEWER Work Phone: Endocrinology Comment on above: Refill Request travel and medicatio ns Start: 09-01-2024 End: 09-01-2024 [facility] Start: 08-31-2024 End: 08-31-2024 Refill Davis May MD Work Phone: [facility] [place] Comment on above: Refill Request JANETH FLORENTINO RN ( [facility]) Start: 08-29-2024 End: 08-29-[address] Davis May MD Work Phone: -Physical Therapy Start: 08-29-2024 End: 08-29-2024 Discharged Recurring Obdulia Martínez ENAMEL DRIER-C -Physical Therapy Work Phone: Start: 08-18-2024 End: 08-18-2024 ambulatory Jaycee Ochoa RN Hematology/Oncology Comment on above: Doptelet Start: 08-18-2024 End: 08-18-2024 E-mail encounter from caregiver Jaycee Ochoa RN Hematology/Oncology Start: 08-15-2024 End: 10-15-2024 Follow-up encounter Obdulia Martínez APRN.UTILIZATION REVIEWER Work Phone: [facility] [place] Start: 08-10-2024 End: 08-10-2024 ambulatory DAVIS MAY Facility:[facility] Start: 08-09-2024 End: 08-09-2024 ambulatory [facility] Facility:[facility] Start: 08-07-2024 End: 08-07-2024 ambulatory [facility] Facility:[facility] Start: 08-07-2024 End: 08-07-2024 Patient encounter procedure Jose Landry MD Work Phone: Vascular Medicine Comment on above: Portal vein thrombos is (Primary Dx); Anticoagulation management encounter; Superior mesenteric vein thrombosis (HCC); Autoimmune hepatitis (HCC); Other cirrhosis of liver (HCC); Acute pain of right shoulder Start: 08-06-2024 End: 08-06-2024 Emergency department patient visit Dr. Davis May MD Work Phone: -Emergency Department Work Phone: Start: 08-02-2024 End: 08-02-2024 ambulatory DAVIS MAY Facility:[facility] Start: 08-01-2024 End: 08-01-2024 Orders Only Liseth Ortiz DO Work Phone: Hematology/Oncology Comment on above: 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); Thrombocytopenia Start: 07-25-2024 End: 07-25-2024 ambulatory Jaycee Ochoa RN Hematology/Oncology Comment on above: forms Start: 07-25-2024 End: 07-25-2024 E-mail encounter from caregiver Jaycee Ochoa RN Hematology/Oncology Start: 07-25-2024 End: 07-25-2024 Telephone encounter Jaycee Ochoa RN Hematology/Oncology Comment on above: Asset Card Clerk - O ther Start: 07-24-2024 End: 07-24-2024 Telephone encounter Jaycee Ochoa RN Hematology/Oncology Comment on above: Asset Card Clerk - O ther Start: 07-24-2024 End: 07-24-2024 Patient encounter procedure Davis May MD Work Phone: [facility] Comment on above: S/P ICD (internal ca rdiac defibrillator) procedure (Primary Dx); Primary hypertension; Hyperlipidemia LDL goal <100; Hypertensive chronic kidney disease with stage 1 through stage 4 chronic kidney disease, or unspecified chronic kidney disease; Cirrhosis of liver without ascites, unspecified hepatic cirrhosis type (HCC); Portal vein thrombosis; Portal hypertension (HCC); Autoimmune hepatitis (HCC); Stage 3a chronic kidney disease (HCC); Controlled type 2 diabetes mellitus without complication, with long-term current use of insulin (HCC); Iron deficiency anemia due to chronic blood loss; Thrombocytopenia Start: 07-24-2024 End: 07-24-2024 ambulatory Riddhi Brower [employer] Comment on above: Bi-Weekly Outreach ( Recurring) for Chronic Disease Management Start: 07-20-2024 End: 07-20-2024 Patient encounter procedure Marcos Farrell PA-C Work Phone: Dermatology Comment on above: Actinic keratosis (P rimary Dx); Telangiectasia; Pruritus Start: 07-20-2024 End: 07-20-2024 ambulatory DAVIS Tavares YADIRA Facility:[facility] Start: 07-14-2024 End: 07-14-2024 ambulatory [facility] Facility[facility] Start: 07-14-2024 End: 07-15-2024 Patient encounter procedure Liseth Ortiz DO Work Phone: Hematology/Oncology Start: 07-14-2024 End: 07-15-2024 ambulatory Liseth Ortiz DO Work Phone: Hematology/Oncology Comment on above: Iron deficiency anem ia due to chronic blood loss (Primary Dx); Thrombocytopenia; MGUS (monoclonal gammopathy of unknown significance); Chronic ITP (idiopathic thrombocytopenia) (HCC) Start: 07-05-2024 End: 07-05-2024 Telephone encounter Evelin Reich APRN.CNP Work Phone: Endocrinology Comment on above: Orders (RUSTAM notes fa xed to [facility]) Start: 07-05-2024 End: 07-05-2024 Patient encounter procedure Evelin Reich APRN.UTILIZATION REVIEWER Work Phone: Endocrinology Comment on above: Controlled type 2 di abetes mellitus without complication, unspecified whether oysterman insulin use (HCC) (Primary Dx) Start: 07-05-2024 End: 07-05-2024 ambulatory DAVIS MAY Facility:[facility] Start: 07-04-2024 End: 07-04-2024 ambulatory DAVIS MAY Facility:[facility] Start: 06-29-2024 End: 06-30-2024 ambulatory Davis May MD Work Phone: Family Medicine [place] Comment on above: pantoprazole Start: 06-25-2024 End: 06-26-2024 Refill Stevan Thomas MD Work Phone: Gastroenterology Comment on above: Refill Request Start: 06-16-2024 End: 06-20-2024 Refill Evelinyuliya Reich APRN.UTILIZATION REVIEWER Work Phone: Endocrinology Comment on above: Refill Request Start: 06-12-2024 End: 06-12-2024 ambulatory DAVIS MAY Facility:[facility] Start: 06-12-2024 End: 06-12-2024 Patient encounter procedure Bernadette Munguia MD Work Phone: Cardiology Comment on above: Hypertrophic obstruc tive cardiomyopathy (HOCM) (HCC) (Primary Dx); Primary hypertension; Hyperlipidemia LDL goal <100; Venous insufficiency; S/P ICD (internal cardiac defibrillator) procedure Start: 06-09-2024 End: 06-12-2024 Refill Davis May MD Work Phone: Family Medicine [place] Comment on above: Refill Request Start: 06-06-2024 End: 08-06-2024 Follow-up encounter Nova Shahid MD Work Phone: Cardiology Start: 06-06-2024 End: 06-09-2024 ambulatory Davis May MD Work Phone: Family Medicine [place] Comment on above: Problem with Rx Start: 06-06-2024 End: 06-07-2024 Patient encounter procedure Stress Echo Lab [facility] Will Work Phone: Cardiology Comment on above: Other hypertrophic c ardiomyopathy (HCC) Refill Request Start: 06-05-2024 End: 06-05-2024 ambulatory DAVIS MAY Facility:[facility] Start: 06-01-2024 End: 06-02-2024 Refill Rui Mendez MD Work Phone: [facility] [id number] Comment on above: Refill Request Start: 05-31-2024 End: 05-31-2024 ambulatory Riddhi Brower RN [employer] Comment on above: Initial enrollment o [facility] for Chronic Disease Management Start: 05-30-2024 End: 05-30-2024 Office outpatient visit 15 minutes Sanna Larsen APRN.CNP Work Phone: [facility] Comment on above: Acute non-recurrent sinusitis, unspecified location (Primary Dx); Acute bronchitis, unspecified organism Start: 05-30-2024 End: 05-31-2024 Refill Stevan Thomas MD Work Phone: Gastroenterology Comment on above: Refill Request Start: 05-29-2024 End: 05-29-2024 Chart abstracting Aide Wu Research Coordinator Clinical Research Start: 05-29-2024 End: 05-29-2024 Telephone encounter Davis May MD Work Phone: [facility] Comment on above: sinus congestion; Ch est Congestion; Cough Start: 05-24-2024 End: 05-24-2024 ambulatory Riddhi Brower RN [employer] Comment on above: Started Initial enro llment outreach for Chronic Disease Management Start: 05-21-2024 End: 05-22-2024 Refill Stevan Thomas MD Work Phone: Gastroenterology Comment on above: Refill Request Start: 05-19-2024 End: 05-19-2024 Nursing evaluation of patient and report Nurse [facility] Work Phone: Clinical Research Comment on above: Examination of parti cipant in clinical trial (Primary Dx) Start: 05-19-2024 End: 05-19-2024 Patient encounter procedure Nurse [facility] Work Phone: [facility] Start: 05-19-2024 End: 05-19-2024 ambulatory DAVIS MAY Facility:[facility] Start: 05-18-2024 End: 07-18-2024 Follow-up encounter Nathan Ruth MD Work Phone: Kidney Medicine Start: 05-18-2024 End: 05-18-2024 Telephone encounter Aide Wu Research Coordinator Clinical Research Comment on above: Research F/U Start: 05-18-2024 End: 05-18-2024 ambulatory DAVIS MAY Facility:[facility] Start: 05-17-2024 End: 05-17-2024 ambulatory Nathan Ruth MD Work Phone: Kidney Medicine Comment on above: lisinopril Start: 05-15-2024 End: 05-15-2024 Refill Stevan Thomas MD Work Phone: Gastroenterology Comment on above: Refill Request Start: 05-12-2024 End: 05-12-2024 Patient encounter procedure Davis May MD Work Phone: [facility] Comment on above: Portal vein thrombos is (Primary Dx); Poorly controlled type 2 diabetes mellitus (HCC); Thrombocytopenia (HCC); Type 2 diabetes mellitus with diabetic neuropathy, unspecified whether oysterman insulin use (HCC); Cirrhosis of liver without ascites, unspecified hepatic cirrhosis type (HCC); Esophageal varices without bleeding, unspecified esophageal varices type (HCC); Hyperlipidemia LDL goal <100; Autoimmune hepatitis (HCC); Stage 3a chronic kidney disease (HCC); URI, acute Start: 05-12-2024 End: 05-12-2024 ambulatory Nathan Ruth MD Work Phone: Kidney Medicine Comment on above: test results Start: 05-12-2024 End: 05-12-2024 E-mail encounter from caregiver Nathan Ruth MD Work Phone: Kidney Medicine Start: 05-11-2024 End: 05-11-2024 ambulatory [facility] Facility:[facility] Start: 05-11-2024 End: 05-11-2024 Patient encounter procedure Marcos Farrell PA-C Work Phone: Dermatology Comment on above: Actinic keratosis (P rimary Dx) Start: 05-10-2024 End: 05-10-2024 ambulatory [facility] Facility:[facility] Start: 05-10-2024 End: 05-10-2024 Patient encounter procedure Jose Landry MD Work Phone: Vascular Medicine Comment on above: Autoimmune hepatitis (HCC) (Primary Dx); Portal vein thrombosis; Anticoagulation management encounter; Other cirrhosis of liver (HCC) Start: 05-09-2024 End: 05-09-2024 Telephone encounter Nathan Ruth MD Work Phone: Kidney Medicine Start: 05-08-2024 End: 05-08-2024 ambulatory Evelin Eloisa Reich JUDICIAL CLERK.UTILIZATION REVIEWER Work Phone: Endocrinology Comment on above: blood sugar sensors Other hypertrophic c ardiomyopathy (HCC) (Primary Dx) Start: 05-01-2024 End: 07-01-2024 Follow-up encounter Nathan Ruth MD Work Phone: Kidney Medicine Start: 04-29-2024 End: 05-01-2024 ambulatory Davis May MD Work Phone: [facility] [place] Comment on above: blood sugar Start: 04-28-2024 End: 04-28-2024 ambulatory DAVIS MAY Facility:[facility] Start: 04-26-2024 End: 04-26-2024 ambulatory Stevan Thomas MD Work Phone: Gastroenterology Comment on above: Autoimmune hepatitis (HCC) (Primary Dx) Start: 04-26-2024 End: 04-26-2024 Telemedicine consultation with patient Stevan Thomas MD Work Phone: Gastroenterology Start: 04-24-2024 End: 04-24-2024 Patient encounter procedure Lora Thomas MD Work Phone: Urology Comment on above: Abnormal urinalysis (Primary Dx) Start: 04-24-2024 End: 04-24-2024 ambulatory LORA THOMAS Facility:[id number] Start: 04-21-2024 End: 04-26-2024 [facility] Get Medical Advice Davis May MD Work Phone: Family Medicine [place] Comment on above: trouble refilling el iquis Start: 04-19-2024 End: 04-19-2024 Telephone encounter Nathan Ruth MD Work Phone: Kidney Medicine Start: 04-18-2024 End: 04-18-2024 ambulatory Denae Coombs RN Work Phone: [employer] Start: 04-18-2024 End: 04-18-2024 Telephone follow-up Denae Coombs RN Work Phone: [employer] Comment on above: Transition Of Care ( /tcm d/c follow up - discussed triage recommendations ) Weekly phone contact (Recurring) for Transitional Care Management Start: 04-17-2024 End: 04-17-2024 Refill Stevan Thomas MD Work Phone: Gastroenterology Comment on above: Refill Request Start: 04-17-2024 End: 04-17-2024 ambulatory Nurse Intm/Famp Triage [facility] Work Phone: Nurse Phone Triage Comment on above: Gastrointestinal Ble ed Start: 04-16-2024 End: 04-17-2024 ambulatory Davis May MD Work Phone: [facility] [place] Comment on above: more blood additiona l places Start: 04-15-2024 End: 04-17-2024 Telephone encounter Davis May MD Work Phone: [facility] [place] Comment on above: Results Start: 04-14-2024 End: 04-14-[address] Davis May MD Work Phone: -Laboratory Work Phone: Start: 04-14-2024 End: 04-14-2024 ambulatory DAVIS MAY Facility:[facility] Start: 04-14-2024 End: 04-14-2024 Telephone encounter Davis May MD Work Phone: [facility] [place] Comment on above: Patient Update Start: 04-14-2024 End: 04-14-2024 Patient encounter procedure Davis May MD Work Phone: [facility] [place] Comment on above: Portal vein thrombos is (Primary Dx); Poorly controlled type 2 diabetes mellitus (HCC); Thrombocytopenia (HCC); Hypertrophic obstructive cardiomyopathy (HOCM) (HCC); Type 2 diabetes mellitus with diabetic neuropathy, unspecified whether oysterman insulin use (HCC); Cirrhosis of liver without ascites, unspecified hepatic cirrhosis type (HCC); Esophageal varices without bleeding, unspecified esophageal varices type (HCC); Controlled type 2 diabetes mellitus without complication, with long-term current use of insulin (HCC); Microscopic hematuria; URI, acute; Nausea Start: 04-14-2024 End: 04-14-2024 ambulatory [facility] Facility:[facility] Start: 04-13-2024 End: 04-17-2024 ambulatory Derrek Bear MD Work Phone: Gastroenterology Comment on above: blood in urine Start: 04-12-2024 End: 04-12-2024 ambulatory [facility] Facility:[facility] Start: 04-12-2024 End: 04-12-2024 Patient encounter procedure Nathan Ruth MD Work Phone: Kidney Medicine Comment on above: Stage 3a chronic kid katty disease (HCC) (Primary Dx); Primary hypertension; Persistent proteinuria; Controlled type 2 diabetes mellitus without complication, without long-term current use of insulin (HCC) Hospital discharge f ollow-up (Primary Dx); PVT (portal vein thrombosis) Start: 04-11-2024 End: 04-11-2024 ambulatory Denae Coombs RN Work Phone: [employer] Start: 04-11-2024 End: 04-11-2024 Telephone follow-up Denae Coombs RN Work Phone: [employer] Comment on above: Transition Of Care ( /tcm d/c follow up ) Weekly phone contact (Recurring) for Transitional Care Management Start: 04-07-2024 End: 04-10-2024 Refill Derrek Bear MD Work Phone: Gastroenterology Comment on above: Refill Request Start: 04-04-2024 End: 04-04-2024 Patient Outreach Denae Coombs RN Work Phone: [employer] Comment on above: Transition Of Care ( /tcm d/c 03/31/24) Initial phone contact for Transitional Care Management Start: 2024 End: 2024 Telephone encounter Samy Duffy Clinical Research Comment on above: Research F/U Start: 03-30-2024 End: 03-30-2024 Evaluation and management of inpatient DAVIS MAY Facility:[facility] Start: 03-29-2024 End: 03-31-2024 Evaluation and management of inpatient JUAN WILSON Facility:[facility] Start: 03-29-2024 End: 03-29-2024 Telephone encounter Stevan Thomas MD Work Phone: Gastroenterology Comment on above: Patient Update Start: 03-29-2024 End: 03-29-2024 ambulatory DERREK BEAR Facility:[facility] Start: 03-29-2024 End: 03-29-2024 Subsequent hospital visit by physician Ct 2 Main Qb (I-Stat) Radiology Comment on above: Liver disease [K76.9 ] Start: 03-28-2024 End: 03-30-2024 Refill Stevan Thomas MD Work Phone: Gastroenterology Comment on above: Refill Request Start: 03-25-2024 End: 03-27-2024 ambulatory Davis May MD Work Phone: [facility] Comment on above: my ICD + EVs Start: 03-23-2024 End: 03-23-2024 ambulatory LISETH ORTIZ Facility:[facility] Start: 03-19-2024 End: 03-23-2024 Refill Stevan Thomas MD Work Phone: Gastroenterology Comment on above: Refill Request Start: 02-19-2024 End: 02-21-2024 Refill Mirza Harry PA-C Work Phone: Gastroenterology Comment on above: Refill Request Start: 02-14-2024 End: 02-14-2024 Patient encounter procedure Bobby Owusu PA-C Work Phone: Orthopaedics Comment on above: Left knee pain, unsp ecified chronicity Start: 02-14-2024 End: 02-14-2024 ambulatory BOBBY OWUSU Facility:[facility] Start: 02-14-2024 End: 02-14-2024 Subsequent hospital visit by physician [facility] Hillary Work Phone: Radiology Comment on above: Left knee pain, unsp ecified chronicity [M25.562] Start: 02-11-2024 End: 02-14-2024 Refill Davis May MD Work Phone: Family Medicine [place] Comment on above: Refill Request Start: 02-03-2024 End: 02-04-2024 ambulatory Sury Mathias APRN.UTILIZATION REVIEWER Work Phone: Dermatology Comment on above: confirm how to mary ly toxic face cream Start: 01-24-2024 End: 01-24-2024 ambulatory [facility] Facility:[facility] Start: 01-24-2024 End: 01-24-2024 Patient encounter procedure Angeline Pfeiffer OD Work Phone: Ophthalmology Comment on above: Type 2 diabetes sundar itus without retinopathy (HCC) (Primary Dx); Combined forms of age-related cataract of both eyes; Myopia, bilateral; Presbyopia; Drusen of left optic disc Start: 01-21-2024 End: 01-21-2024 ambulatory DAVIS MAY Facility:[facility] Start: 01-21-2024 End: 01-21-2024 Patient encounter procedure Sury Mathias APRN.UTILIZATION REVIEWER Work Phone: Dermatology Comment on above: AK (actinic keratosi s) (Primary Dx) Start: 01-20-2024 End: 01-20-2024 ambulatory Sury Mathias APRN.UTILIZATION REVIEWER Work Phone: Dermatology Comment on above: appt tomorrow, 01/20 Start: 01-18-2024 End: 01-18-2024 ambulatory DAVIS MAY Facility:[facility] Start: 01-18-2024 End: 01-18-2024 Patient encounter procedure Davis May MD Work Phone: Family Medicine [place] Comment on above: Hypertrophic obstruc tive cardiomyopathy (HOCM) (HCC) (Primary Dx); Primary hypertension; Hyperlipidemia LDL goal <100; S/P ICD (internal cardiac defibrillator) procedure; Hepatic cirrhosis, unspecified hepatic cirrhosis type, unspecified whether ascites present (HCC); Portal vein thrombosis; Controlled type 2 diabetes mellitus without complication, unspecified whether oysterman insulin use (HCC); Thrombocytopenia (HCC); Iron deficiency anemia due to chronic blood loss Start: 01-14-2024 End: 01-14-2024 ambulatory DAVIS MAY Facility:[facility] Start: 01-14-2024 End: 01-14-2024 ambulatory DAVIS MAY Facility:[facility] Start: 01-01-2024 End: 01-03-2024 ambulatory Davis May MD Work Phone: Family Medicine [place] Comment on above: blood tests Start: 12-29-2023 End: 12-29-2023 Orders Only Mirza Harry PA-C Work Phone: Gastroenterology Start: 12-28-2023 End: 12-29-2023 Refill Evelin C Cioce JUDICIAL CLERK.UTILIZATION REVIEWER Work Phone: Endocrinology Comment on above: Refill Request Start: 12-20-2023 End: 12-21-2023 Refill Davis May MD Work Phone: Family [facility] [place] Comment on above: Refill Request Start: 12-15-2023 End: 12-15-2023 Refill Derrek Bear MD Work Phone: Gastroenterology Comment on above: Refill Request Start: 12-13-2023 End: 12-13-2023 Refill Evelin C Cioce JUDICIAL CLERK.UTILIZATION REVIEWER Work Phone: Endocrinology Comment on above: Refill Request Start: 12-02-2023 End: 12-02-2023 ambulatory Jason Quiroz MD Work Phone: Hematology/Oncology Comment on above: Iron deficiency anem ia due to chronic blood loss (Primary Dx) Start: 12-02-2023 End: 12-02-2023 Patient encounter procedure Jason Quiroz MD Work Phone: Hematology/Oncology Start: 11-27-2023 End: 11-29-2023 Refill Davis May MD Work Phone: [facility] [place] Comment on above: Refill Request Start: 11-11-2023 End: 11-11-2023 Refill Evelin C Cioce JUDICIAL CLERK.UTILIZATION REVIEWER Work Phone: Endocrinology Comment on above: Refill Request Start: 10-20-2023 End: 10-20-2023 Patient encounter procedure Evelin C Cioce JUDICIAL CLERK.UTILIZATION REVIEWER Work Phone: Endocrinology Comment on above: Controlled type 2 di abetes mellitus without complication, unspecified whether oysterman insulin use (HCC) (Primary Dx) Start: 10-19-2023 End: 10-19-2023 Patient encounter procedure Sury Mathias JUDICIAL CLERK.UTILIZATION REVIEWER Work Phone: Dermatology Comment on above: AK (actinic keratosi s) (Primary Dx) Start: 10-19-2023 Refill Derrek cottrell MD Work Phone: Gastroenterology Comment on above: Refill Request Start: 10-14-2023 ambulatory Evelin C Cioce JUDICIAL CLERK.UTILIZATION REVIEWER Work Phone: Endocrinology Comment on above: Rx renewal problem Start: 10-14-2023 Telephone encounter Evelin C C ioce JUDICIAL CLERK.UTILIZATION REVIEWER Work Phone: Endocrinology Comment on above: [facility] Request for Docu mentation ([employer] Order Processing) Start: 10-04-2023 End: 10-04-2023 Patient encounter procedure Bernadette Munguia MD Work Phone: Cardiology Comment on above: Hypertrophic obstruc tive cardiomyopathy (HOCM) (HCC) (Primary Dx); Other chest pain; Primary hypertension; Hyperlipidemia LDL goal <100; Venous insufficiency; S/P ICD (internal cardiac defibrillator) procedure Start: 10-04-2023 Telephone encounter Evelni C C ioce JUDICIAL CLERK.UTILIZATION REVIEWER Work Phone: Endocrinology Comment on above: Orders ([facility] ) Start: 09-30-2023 Chart abstracting Char linares) [facility] Clinical Research Start: 09-30-2023 Patient encounter procedure Char Orr (Coord) [facility] Start: 09-28-2023 End: 09-28-2023 ambulatory Hepatology A5 Work Phone: Gastroenterology Start: 09-28-2023 End: 09-28-2023 Patient encounter procedure Hepatology Procedures A5 Work Phone: Gastroenterology Comment on above: Autoimmune hepatitis (HCC) (Primary Dx); Encounter for screening for osteoporosis; Liver disease; Localized osteoporosis ([place]); Portal hypertension with esophageal varices (HCC) Start: 09-28-2023 End: 09-28-2023 Subsequent hospital visit by physician Main A21 6 Work Phone: Radiology Comment on above: Iron deficiency anem ia due to chronic blood loss [D50.0] Start: 09-22-2023 Refill Evelin C Cioce JUDICIAL CLERK.UTILIZATION REVIEWER Work Phone: Endocrinology Comment on above: Refill Request Start: 09-21-2023 Refill Evelin C Cioce JUDICIAL CLERK.UTILIZATION REVIEWER Work Phone: Endocrinology Comment on above: Refill Request Start: 09-02-2023 End: 09-02-2023 Nursing evaluation of patient and report Nurse [facility] Work Phone: Clinical Research Comment on above: Examination of parti cipant in clinical trial (Primary Dx) Start: 09-02-2023 End: 09-02-2023 Patient encounter procedure Nurse [facility] Work Phone: [facility] Start: 09-01-2023 End: 09-01-2023 ambulatory Jason Quiroz MD Work Phone: Hematology/Oncology Comment on above: Iron deficiency anem ia due to chronic blood loss (Primary Dx); Thrombocytopenia (HCC) Start: 09-01-2023 End: 09-01-2023 Patient encounter procedure Jason Quiroz MD Work Phone: Hematology/Oncology Start: 08-28-2023 ambulatory Davis May MD Work Phone: [facility] Comment on above: unplanned ER/ICU on vacation Start: 08-25-2023 Refill Evelin C Cioce JUDICIAL CLERK.UTILIZATION REVIEWER Work Phone: Endocrinology Comment on above: Refill Request Start: 08-16-2023 Refill Derrek cottrell MD Work Phone: Gastroenterology Comment on above: Refill Request Start: 08-09-2023 End: 08-09-2023 Patient encounter procedure Myra Gallardo JUDICIAL CLERK.UTILIZATION REVIEWER Work Phone: Gastroenterology Comment on above: Autoimmune hepatitis (HCC) (Primary Dx) Start: 07-30-2023 Refill Evelin C Cioce JUDICIAL CLERK.UTILIZATION REVIEWER Work Phone: Endocrinology Comment on above: Refill Request Start: 07-16-2023 End: 07-16-2023 Patient encounter procedure Davis May MD Work Phone: [facility] Comment on above: S/P ICD (internal ca rdiac defibrillator) procedure (Primary Dx); Hypertrophic obstructive cardiomyopathy (HOCM) (HCC); Hyperlipidemia LDL goal <100; Primary hypertension; Hepatic cirrhosis, unspecified hepatic cirrhosis type, unspecified whether ascites present (HCC); Portal vein thrombosis; Controlled type 2 diabetes mellitus without complication, unspecified whether fci insulin use (HCC); Thrombocytopenia (HCC); Iron deficiency anemia due to chronic blood loss Start: 07-12-2023 Telephone encounter Derrek gray MD Work Phone: Gastroenterology Comment on above: Medication Question Start: 07-09-2023 End: 07-09-2023 ambulatory Liseth Ortiz DO Work Phone: Hematology/Oncology Comment on above: Iron deficiency anem ia due to chronic blood loss (Primary Dx); Thrombocytopenia (HCC) Start: 07-09-2023 End: 07-09-2023 Patient encounter procedure Liseth Ortiz DO Work Phone: Hematology/Oncology Start: 07-06-2023 End: 07-06-2023 Orders Only Derrek Bear MD Work Phone: Gastroenterology Comment on above: Dark stools [R19.5] Start: 07-04-2023 Refill Evelin C Cioce JUDICIAL CLERK.UTILIZATION REVIEWER Work Phone: Endocrinology Comment on above: Refill Request Start: 07-02-2023 End: 07-02-2023 ambulatory Treatment Rm 13 Breezy [facility] Work Phone: Hematology/Oncology Comment on above: Iron deficiency anem ia due to chronic blood loss (Primary Dx); Thrombocytopenia (HCC) Start: 06-30-2023 End: 06-30-2023 ambulatory Treatment Rm 13 Breezy [facility] Work Phone: Hematology/Oncology Comment on above: Iron deficiency anem ia due to chronic blood loss (Primary Dx); Thrombocytopenia (HCC) Refill Request Start: 06-28-2023 End: 06-28-2023 ambulatory Treatment Rm 9 Breezy [facility] Work Phone: Hematology/Oncology Comment on above: Iron deficiency anem ia due to chronic blood loss (Primary Dx); Thrombocytopenia (HCC) Start: 06-25-2023 End: 06-25-2023 ambulatory Treatment Rm 12 B[facility] Work Phone: Hematology/Oncology Comment on above: Iron deficiency anem ia due to chronic blood loss (Primary Dx); Thrombocytopenia (HCC) Start: 06-25-2023 Telephone encounter Financial Navigator Breezy Work Phone: Financial Services Comment on above: Benefits Investigati on Start: 06-23-2023 Telephone encounter Derrek gray MD Work Phone: Gastroenterology Comment on above: MAP follow up Start: 06-23-2023 End: 06-23-2023 ambulatory Treatment Rm 12 [facility] Work Phone: Hematology/Oncology Comment on above: Iron deficiency anem ia due to chronic blood loss (Primary Dx); Thrombocytopenia (HCC) Start: 06-22-2023 End: 06-22-2023 Patient encounter procedure Nurse Derm [facility] Work Phone: Dermatology Comment on above: AK (actinic keratosi s) (Primary Dx) Start: 06-18-2023 End: 06-18-2023 ambulatory Lashonda Aleman Work Phone: Hematology/Oncology Comment on above: Iron deficiency anem ia due to chronic blood loss Start: 06-18-2023 End: 06-18-2023 Patient encounter procedure Lashonda Aleman Work Phone: [facility] Start: 06-15-2023 ambulatory Derrek cottrell MD Work Phone: [facility] Start: 06-15-2023 End: 06-15-2023 Patient encounter procedure Derrek Bear MD Work Phone: Gastroenterology Comment on above: Autoimmune hepatitis (HCC) (Primary Dx); Iron deficiency anemia due to chronic blood loss; Hepatic sclerosis change appointment Start: 06-14-2023 Refill Davis May MD Work Phone: [facility] Comment on above: Refill Request Start: 06-09-2023 Follow-up encounter Tarah Bagley ba, MD Work Phone: [facility] Start: 06-09-2023 ICD Remote F/U Tarah Iniguez Work Phone: [facility] Department Start: 06-06-2023 Refill Derrek cottrell MD Work Phone: Gastroenterology Comment on above: Refill Request Start: 06-04-2023 Refill Evelin Reich JUDICIAL CLERK.UTILIZATION REVIEWER Work Phone: Endocrinology Comment on above: Refill Request Start: 05-24-2023 Telephone encounter Sanna Larsen JUDICIAL CLERK.EDGE CUTTING MACHINE OPERATOR Work Phone: [facility] Start: 05-19-2023 Refill Derrek cottrell MD Work Phone: Gastroenterology Comment on above: Refill Request Start: 05-11-2023 End: 05-11-2023 Patient encounter procedure Sury Mathias JUDICIAL CLERK.UTILIZATION REVIEWER Work Phone: Dermatology Comment on above: AK (actinic keratosi s) (Primary Dx); Seborrheic keratosis; Henriquez angioma; Multiple benign nevi; Lentigines; Neoplasm of unspecified behavior of bone, soft tissue, and skin Start: 03-29-2023 Non-patient / Non-visit Dr. Ab Middleton Work Phone: [facility] Work Phone: Start: 03-28-2023 Non-patient / Non-visit Dr. Ab Middleton Work Phone: [facility] Start: 03-28-2023 Non-patient / Non-visit Dr. Ab Middleton Work Phone: [facility] Work Phone: Start: 03-27-2023 Non-patient / Non-visit Dr. Ab Middleton Work Phone: [facility] Start: 03-27-2023 Non-patient / Non-visit Dr. Ab Middleton Work Phone: [facility] Work Phone: Start: 03-26-2023 Non-patient / Non-visit Dr. Ab Middleton Work Phone: [facility] Start: 03-26-2023 End: 03-29-2023 Evaluation and management of inpatient [facility] Work Phone: Start: 03-04-2023 End: 03-04-2023 Nursing evaluation of patient and report Nurse [facility] Work Phone: Clinical Research Comment on above: Examination of parti cipant in clinical trial (Primary Dx) Start: 03-04-2023 End: 03-04-2023 Patient encounter procedure Nurse [facility] Work Phone: [facility] Start: 02-17-2023 ambulatory Bernadette lawrence MD Work Phone: Cardiology Comment on above: tests you requested US results Start: 02-17-2023 E-mail encounter fro m caregiver Derrek Bear MD Work Phone: [facility] Start: 02-17-2023 Refill Derrek cottrell MD Work Phone: Gastroenterology Comment on above: Refill Request Start: 02-16-2023 End: 02-16-2023 Subsequent hospital visit by physician Main A21 1 Radiology Comment on above: Autoimmune hepatitis (HCC) [K75.4] Start: 02-10-2023 Refill Nova suarez MD Work Phone: Cardiology Comment on above: Refill Request Start: 02-08-2023 End: 02-08-2023 Patient encounter procedure Myra Gallardo APRN.UTILIZATION REVIEWER Work Phone: Gastroenterology Comment on above: Autoimmune hepatitis (HCC) [K75.4] (Primary Dx) Start: 01-22-2023 End: 01-22-2023 Patient encounter procedure Angeline Pfeiffer OD Work Phone: Ophthalmology Comment on above: Combined forms of ag e-related cataract of both eyes (Primary Dx); Type 2 diabetes mellitus without retinopathy (HCC); Myopia, bilateral; Presbyopia; Drusen of left optic disc Start: 01-18-2023 Refill Nova suarez MD Work Phone: Cardiology Comment on above: Refill Request Start: 12-09-2022 Follow-up encounter Tarah Bagley ba, MD Work Phone: [facility] Start: 12-09-2022 ICD Remote F/U Tarah Iniguez Work Phone: [facility] Department Start: 12-07-2022 Refill Davis May MD Work Phone: [facility] Comment on above: Refill Request Start: 11-20-2022 Refill Derrek cottrell MD Work Phone: Gastroenterology Comment on above: Refill Request Start: 10-14-2022 End: 10-14-2022 Subsequent hospital visit by physician [facility] Cyndie Work Phone: Radiology Comment on above: DDD (degenerative di sc disease), cervical [M50.30] Start: 09-30-2022 ambulatory Concepcion Gomez MD Work Phone: Endocrinology Comment on above: blood sugar level ri ses Start: 09-30-2022 End: 09-30-2022 Patient encounter procedure Evelin Jayarmandodeana JUDICIAL CLERK.UTILIZATION REVIEWER Work Phone: Endocrinology Comment on above: Poorly controlled ty pe 2 diabetes mellitus (HCC) (Primary Dx) Start: 09-23-2022 End: 09-23-2022 Patient encounter procedure Derrek Bear MD Work Phone: Gastroenterology Comment on above: Autoimmune hepatitis (HCC) (Primary Dx); Controlled type 2 diabetes mellitus without complication, unspecified whether oysterman insulin use (HCC); Elevated LFTs Start: 09-21-2022 Telephone encounter Davis May MD Work Phone: [facility] [place] Comment on above: Results Start: 09-17-2022 End: 09-17-2022 Subsequent hospital visit by physician Main A21 1 Radiology Comment on above: Autoimmune hepatitis (HCC) [K75.4] Start: 07-13-2022 End: 07-13-2022 Patient encounter procedure Bernadette Munguia MD Work Phone: Cardiology Comment on above: Hypertrophic obstruc tive cardiomyopathy (HOCM) (HCC) (Primary Dx); S/P ICD (internal cardiac defibrillator) procedure; Hyperlipidemia LDL goal <100; Venous insufficiency; Primary hypertension Start: 06-25-2022 Refill Nova suarez MD Work Phone: Cardiology Comment on above: Refill Request Start: 06-10-2022 Follow-up encounter Tarah Bagley ba, MD Work Phone: [facility] Start: 06-10-2022 ICD Remote F/U Tarah Iniguez Work Phone: [facility] Department Start: 06-08-2022 Refill Davis May MD Work Phone: [facility] [place] Comment on above: Refill Request Start: 05-25-2022 End: 05-25-2022 Patient encounter procedure Prabhu Le PA-C Work Phone: Otolaryngology Comment on above: Vocal cord nodule (P rimary Dx); Throat clearing; Oral bleeding; Gastroesophageal reflux disease, unspecified whether esophagitis present Start: 05-22-2022 Refill Davis May MD Work Phone: [facility] Comment on above: Refill Request Start: 05-20-2022 Orders Only Nova suarez MD Work Phone: Cardiology Comment on above: HOCM (hypertrophic o bstructive cardiomyopathy) (HCC) (Primary Dx) Start: 05-18-2022 ambulatory Bernadette lawrence MD Work Phone: Cardiology Comment on above: do we see each other ? Start: 04-20-2022 ambulatory Davis May MD Work Phone: [facility] Comment on above: covid Start: 04-20-2022 End: 04-20-2022 Patient encounter procedure Davis May MD Work Phone: [facility] Comment on above: Hypertrophic obstruc tive cardiomyopathy (HOCM) (HCC) (Primary Dx); Hyperlipidemia LDL goal <100; Portal vein thrombosis; Hepatic cirrhosis, unspecified hepatic cirrhosis type, unspecified whether ascites present (HCC); Controlled type 2 diabetes mellitus without complication, unspecified whether fci insulin use (HCC); Thrombocytopenia (HCC); Throat clearing; Oral bleeding Start: 04-13-2022 Refill Derrek cottrell MD Work Phone: Gastroenterology Comment on above: Refill Request Start: 04-10-2022 Telephone encounter Lupe Addison ([facility]) Gastroenterology Comment on above: Appointment Start: 04-08-2022 ambulatory Salyl Odonnell [facility] Comment on above: [facility] ([facility]HEL[facility] ORANTES [facility]) Start: 04-07-2022 End: 04-07-2022 Subsequent hospital visit by physician Us Hernandez A21 3 Work Phone: Radiology Comment on above: Autoimmune hepatitis (HCC) [K75.4] Start: 03-23-2022 Refill Derrek cottrell MD Work Phone: Gastroenterology Comment on above: Refill Request Start: 03-11-2022 Follow-up encounter Tarah Bagley ba, MD Work Phone: [facility] Start: 03-11-2022 ICD Remote F/U Tarah Iniguez Work Phone: [facility] Department Start: 03-08-2022 Refill Davis Mya MD Work Phone: [facility] [place] Comment on above: Refill Request Start: 01-25-2022 ambulatory Davis May MD Work Phone: [facility] [place] Comment on above: I give up Start: 01-11-2022 Refill Derrek cottrell MD Work Phone: Gastroenterology Comment on above: Refill Request Start: 01-02-2022 Refill Davis May MD Work Phone: [facility] [place] Start: 12-29-2021 Refill Davis May MD Work Phone: [facility] [place] Comment on above: Refill Request monitoring blood sug ar Start: 12-23-2021 ambulatory Davis May MD Work Phone: [facility] Start: 12-23-2021 Patient encounter procedure Davis May MD Work Phone: [facility] [place] Comment on above: duplicate appointmen ts in march Start: 12-22-2021 End: 12-22-2021 Patient encounter procedure Davis May MD Work Phone: [facility] [place] Comment on above: Hyperlipidemia LDL g oal <100 (Primary Dx); Controlled type 2 diabetes mellitus without complication, without long-term current use of insulin (HCC); Portal vein thrombosis; Hepatic cirrhosis, unspecified hepatic cirrhosis type, unspecified whether ascites present (HCC); Hypertrophic obstructive cardiomyopathy (HOCM) (HCC); Type 2 diabetes mellitus treated with insulin (HCC) Start: 12-22-2021 ambulatory Davis May MD Work Phone: [facility] [place] Comment on above: please send Rx to Dr Gooden Start: 12-09-2021 ambulatory Davis May MD Work Phone: [facility] Start: 12-09-2021 Patient encounter procedure Davis May MD Work Phone: [facility] [place] Comment on above: Appointment cancelle d Start: 12-08-2021 Refill Derrek cottrell MD Work Phone: Gastroenterology Comment on above: Refill Request Start: 12-06-2021 Follow-up encounter Tarah Bagley ba, MD Work Phone: [facility] Start: 12-06-2021 ICD Remote F/U Tarah Iniguez Work Phone: [facility] Department Start: 11-11-2021 ambulatory Davis May MD Work Phone: Internal [facility] Start: 11-11-2021 Telephone encounter Davis May MD Work Phone: [facility] [place] Comment on above: Results Start: 10-23-2021 ambulatory Davis May MD Work Phone: [facility] [place] Comment on above: Rx for my trip to [facility] Start: 10-20-2021 End: 10-20-2021 Patient encounter procedure Bernadette Munguia MD Work Phone: Cardiology Comment on above: Hypertrophic obstruc tive cardiomyopathy (HOCM) (HCC) (Primary Dx); Essential hypertension; Hyperlipidemia LDL goal <100; S/P ICD (internal cardiac defibrillator) procedure; Venous insufficiency Start: 10-16-2021 End: 10-16-2021 Patient encounter procedure Davis May MD Work Phone: [facility] [place] Comment on above: Autoimmune hepatitis treated with steroids (HCC) (Primary Dx); Hepatic cirrhosis, unspecified hepatic cirrhosis type, unspecified whether ascites present (HCC); Portal vein thrombosis; Thrombocytopenia (HCC); Recurrent depression (HCC); S/P ICD (internal cardiac defibrillator) procedure; Hyperlipidemia LDL goal <100; Hypertrophic obstructive cardiomyopathy (HOCM) (HCC); Steroid-induced hyperglycemia Start: 10-14-2021 ambulatory Davis May MD Work Phone: Internal [facility] Start: 10-13-2021 End: 10-13-2021 ambulatory Derrek Bear MD Work Phone: Gastroenterology Comment on above: Autoimmune hepatitis (HCC) (Primary Dx); Liver disease, unspecified Start: 10-13-2021 End: 10-13-2021 Telemedicine consultation with patient Derrek Bear MD Work Phone: [facility] Start: 10-09-2021 Telephone encounter Lupe Reddy ([facility]) [facility] Comment on above: Appointment Start: 09-23-2021 Refill Derrek cottrell MD Work Phone: Gastroenterology Comment on above: Refill Request Start: 09-08-2021 Refill [facility] Provider [facility] jessica Orantes Comment on above: Refill Request Start: 09-02-2021 Follow-up encounter Tarah Bagley ba, MD Work Phone: [facility] Start: 09-02-2021 ICD Remote F/U Tarah Iniguez Work Phone: [facility] Department Start: 08-05-2021 Refill Davis May MD Work Phone: Family Medicine [place] Comment on above: Refill Request Start: 07-31-2021 End: 07-31-2021 Subsequent hospital visit by physician Ct Main F30 (I-Stat) Work Phone: Radiology Comment on above: Liver lesion [K76.9] Start: 07-23-2021 ambulatory Davis May MD Work Phone: [facility] [place] Comment on above: odd question Start: 07-21-2021 End: 07-21-2021 Orders Only Derrek Bear MD Work Phone: Gastroenterology Comment on above: Liver lesion (Primar y Dx) Autoimmune hepatitis (HCC) [K75.4] Start: 07-08-2021 ambulatory Tarah Iniguez Work Phone: Cardiology Comment on above: upcoming dental work Start: 06-28-2021 Refill Derrek cottrell MD Work Phone: Gastroenterology Comment on above: Refill Request Start: 06-25-2021 Orders Only Nova suarez MD Work Phone: Cardiology Start: 06-24-2021 End: 06-24-2021 ambulatory Derrek Bear MD Work Phone: Gastroenterology Comment on above: Autoimmune hepatitis (HCC) (Primary Dx); Hepatic sclerosis Start: 06-24-2021 End: 06-24-2021 Telemedicine consultation with patient Derrek Bear MD Work Phone: [facility] Start: 06-20-2021 Telephone encounter Lupe Reddy ([facility]) [facility] Comment on above: Appointment Start: 06-14-2021 Refill Nova suarez MD Work Phone: Cardiology Comment on above: Refill Request Start: 11-16-2017 [facility] :[facility] Start: 05-13-2017 End: 05-13-2017 [facility] Facility:[facility] Procedures Date Procedure Procedure Detail Performing Clinician Start: 11-07-2024 Ct angio abd&plvis cntrst mtrl w/wo cntrst img Jose Landry MD Work Phone: Start: 10-06-2024 Ct cervical spine w/o contrast material Obdulia Martínez JUDICIAL CLERK.UTILIZATION REVIEWER Work Phone: Start: 07-20-2024 CRYOTHERAPY SKIN LESION Marcos Farrell PA HusseinC Work Phone: Start: 07-05-2024 Hemoglobin A1c/Hemoglobin.total in Blood Evelin C Cioce JUDICIAL CLERK.UTILIZATION REVIEWER Work Phone: Start: 06-06-2024 Echo tthrc r-t 2d w/wom-mode compl spec&colr d Nova Shahid MD Work Phone: Start: 06-06-2024 LVEF TRANSTHORACIC ECHO Nova sanabria MD Work Phone: Start: 05-19-2024 Assay of ammonia India Barber MD Work Phone: Start: 05-19-2024 Lipid panel India Barber MD Work Phone: Start: 04-24-2024 Urnls dip stick/tablet reagent auto microscopy Lora Thomas MD Work Phone: Start: 04-24-2024 Urnls dip stick/tablet rgnt auto w/o microscopy Lora Thomas MD Work Phone: Start: 04-14-[address] Davis May MD Work Phone: Start: 04-14-2024 Quantitative measurement of cryoglobulin in serum specimen Dr. Davis May MD Work Phone: Comment on above: None Detected at 72 hoursPerformed at: [facility] - [facility] Director: Avery Hinojosa PhD, Phone: [phone] Start: 04-14-[address] Davis May MD Work Phone: Comment on above: Immunofixation shows a biclonal IgA prot ein with kappaspecificity. Start: 04-14-2024 Urnls dip stick/tablet rgnt auto w/o microscopy Davis May MD Work Phone: Start: 04-12-2024 Urnls dip stick/tablet rgnt auto w/o microscopy Nathan Ruth MD Work Phone: Start: 03-29-2024 Ct abdomen w/contrast material Derrek stark MD Work Phone: Start: 02-14-2024 Arthrocentesis aspir&/inj major jt/bursa w/o us Bobby Owusu PA-C Work Phone: Start: 10-21-2023 CRYOTHERAPY SKIN LESION Sury Mathias JUDICIAL CLERK.UTILIZATION REVIEWER Work Phone: Start: 09-28-2023 Dup-scan artl lovely abdl/pel/scrot&/rpr orgn com Derrek Bear MD Work Phone: Start: 09-28-2023 US ABD LIVER VASCULAR Derrek Bear MD Work Phone: Start: 07-16-2023 Adult depression screening assessment Evelin Reich JUDICIAL CLERK.UTILIZATION REVIEWER Work Phone: Start: 07-06-2023 Esophagoscp rig transoral hypopharynx crv esoph Derrek Bear MD Work Phone: Start: 06-09-2023 ICD REMOTE CHECK Tarah Chaney MD Work Phone: Start: 05-11-2023 SKIN / NAIL BIOPSY Sury Mathias JUDICIAL CLERK.UTILIZATION REVIEWER Work Phone: Start: 03-27-[address] Esteban rodriguez Work Phone: Start: 03-26-[address] Esteban thomas Work Phone: Start: 03-26-[address] Esteban Renee Work Phone: Start: 03-04-2023 Lipid panel India Barber MD Work Phone: Start: 03-04-2023 Ecg routine ecg w/least 12 lds i&r only [facility] Start: 02-16-2023 Dup-scan artl lovely abdl/pel/scrot&/rpr orgn com Derrek Bear MD Work Phone: Start: 02-16-2023 US ABD LIVER VASCULAR Derrek Bear MD Work Phone: Start: 12-09-2022 ICD REMOTE CHECK Tarah Chaney MD Work Phone: Start: 10-14-2022 Radex spine cervical 4 or 5 views Jena May MD Work Phone: Start: 09-17-2022 Dup-scan artl lovely abdl/pel/scrot&/rpr orgn com Derrek Bear MD Work Phone: Start: 09-17-2022 US ABD LIVER VASCULAR Derrek Bear MD Work Phone: Start: 06-10-2022 ICD REMOTE CHECK Tarah Chaney MD Work Phone: Start: 04-07-2022 Dup-scan artl lovely abdl/pel/scrot&/rpr orgn com Derrek Bear MD Work Phone: Start: 04-07-2022 US ABD LIVER VASCULAR Derrek Bear MD Work Phone: Start: 03-11-2022 ICD REMOTE CHECK Tarah Chaney MD Work Phone: Start: 12-06-2021 ICD REMOTE CHECK Tarah Chaney MD Work Phone: Start: 09-02-2021 ICD REMOTE CHECK Tarah Chaney MD Work Phone: Start: 07-31-2021 Ct abdomen w/contrast material Derrek stark MD Work Phone: Start: 07-21-2021 End: 07-21-2021 Dup-scan artl lovely abdl/pel/scrot&/rpr orgn com Derrek Bear MD Work Phone: Start: 07-21-2021 US ABD LIVER VASCULAR Derrek Bear MD Work Phone: Start: 04-15-2020 Colonoscopy Nova Shahid MD Work Phone: Plan of Treatment Date Care Activity Detail Author Start: 09-28-2034 Urine microalbumin profile DTaP,Tdap,Td Vaccine (3 - Td or Tdap) [facility] Start: 04-15-2030 Colonoscopy COLONOSCOPY [facility] Start: 04-15-2030 COLORECTAL CANCER SCREENING COLORECTAL CANCER SCREENING [facility] Start: 04-15-2030 Screening for malignant neoplasm of colon [facility] Start: 11-27-2025 Complete blood count Hemoglobin/Hematocrit [facility] Start: 11-27-2025 Creatinine measurement Serum Creatinine [facility] Start: 11-27-2025 Hepatitis B screening Urine Albumin:Creatinine Ratio [facility] Start: 11-27-2025 Hepatitis B surface antibody level LDL Cholesterol [facility] Start: 11-06-2025 Creatinine measurement Serum Creatinine [facility] Start: 10-05-2025 Creatinine measurement Serum Creatinine [facility] Start: 10-03-2025 Annual PCP Team Chronic Disease Visit Annual PCP Team Chronic Disease Visit [facility] Start: 09-26-2025 Creatinine measurement Serum Creatinine [facility] Start: 09-01-2025 Creatinine measurement Serum Creatinine [facility] Start: 08-10-2025 BP Controlled (<130/80) BP Controlled (<130/80) [facility] Start: 08-09-2025 Annual PCP Team Chronic Disease Visit Annual PCP Team Chronic Disease Visit [facility] Start: 08-02-2025 Creatinine measurement Serum Creatinine [facility] Start: 07-24-2025 Annual PCP Team Chronic Disease Visit Annual PCP Team Chronic Disease Visit [facility] Start: 07-24-2025 BP Controlled (<130/80) BP Controlled (<130/80) [facility] Start: 07-04-2025 Creatinine measurement Serum Creatinine [facility] Start: 06-05-2025 Creatinine measurement Serum Creatinine [facility] Start: 05-30-2025 Annual PCP Team Chronic Disease Visit Annual PCP Team Chronic Disease Visit [facility] Start: 05-30-2025 BP Controlled (<130/80) BP Controlled (<130/80) [facility] Start: 05-27-2025 Hemoglobin A1c measurement HbA1C [facility] Start: 05-19-2025 Hepatitis B surface antibody level LDL Cholesterol [facility] Start: 05-18-2025 Creatinine measurement Serum Creatinine [facility] Start: 05-12-2025 Annual PCP Team Chronic Disease Visit Annual PCP Team Chronic Disease Visit [facility] Start: 04-28-2025 Complete blood count Hemoglobin/Hematocrit [facility] Start: 04-28-2025 Creatinine measurement Serum Creatinine [facility] Start: 04-15-2025 Hemoglobin A1c measurement HbA1C [facility] Start: 04-14-2025 Annual PCP Team Chronic Disease Visit Annual PCP Team Chronic Disease Visit [facility] Start: 04-14-2025 BP Controlled (<130/80) BP Controlled (<130/80) [facility] Start: 04-14-2025 Complete blood count Hemoglobin/Hematocrit [facility] Start: 04-14-2025 Creatinine measurement Serum Creatinine [facility] Start: 04-12-2025 Annual PCP Team Chronic Disease Visit Annual PCP Team Chronic Disease Visit [facility] Start: 04-12-2025 Covid-19 Vaccine ( season) Covid-19 Vaccine () [facility] Comment on above: Postponed from 02/08/2024 (Declined at t his time) Start: 04-12-2025 Covid-19 Vaccine (11 - Pfizer risk ) Covid-19 Vaccine (11 - Pfizer risk ) [facility] Comment on above: Postponed from 06/12/2024 (Declined at t his time) Start: 04-06-2025 End: 04-06-2025 Follow-up encounter 04/06/2025 3:00 PM EST Visit (SP) Office Hematology/Oncology [address] [place] [address] Liseth Ortiz DO [address] [place] [address] Follow up per wq Hematology/Oncology Comment on above: Follow up per wq Start: 03-31-2025 Complete blood count Hemoglobin/Hematocrit [facility] Start: 03-31-2025 Creatinine measurement Serum Creatinine [facility] Start: 03-30-2025 Complete blood count Hemoglobin/Hematocrit [facility] Start: 03-30-2025 Creatinine measurement Serum Creatinine [facility] Start: 03-30-2025 Hepatitis B screening Urine Albumin:Creatinine Ratio [facility] Start: 02-09-2025 End: 02-09-2025 Patient encounter procedure 02/09/2025 10:20 AM EST Office Visit Dermatology [address] [place] [address] Marcos Farrell PA-C [address] [place] [address] [facility] Dermatology Comment on above: [facility] Start: 02-07-2025 End: 02-07-2025 Patient encounter procedure [facility] [place] Comment on above: medicare wellness Follow up Chronic Au toimmune Hepatitis Start: 01-30-2025 End: 01-30-2025 Nursing evaluation of patient and report 01/30/2025 11:00 AM EST Nurse Visit Clinical Research [address] [place], [place] [id number] [facility], Nurse [address] [place] [address] IRB# [id number], Dasarathy, LCN, V5, Subj. ID# [id number], fibroscan Clinical Research Comment on above: IRB# [id number], Dasarathy, LCN, V5, Subj. ID# [id number], fibroscan Start: 01-30-2025 End: 01-30-2025 Patient encounter procedure 01/30/2025 11:00 AM EST Office Visit Clinical Research [address] [place], [place] [id number] , Study [address] [place] [id number] IRB# [id number], Dasarathy, LCN, V5, Subj. ID# [id number], fibroscan Clinical Research Comment on above: IRB# [id number], Dasarathy, LCN, V5, Subj. ID# [id number], fibroscan Start: 01-25-2025 End: 01-25-2025 Patient encounter procedure 01/25/2025 10:00 AM EST Office Visit [facility]hthal[facility] [address] [place] [address] Angeline Pfeiffer, OD [address] [place] [address] 1 YR F/U for diabetic eye exam. Ophthalmology Comment on above: 1 YR F/U for diabetic eye exam. Start: 01-17-2025 Annual PCP Team Chronic Disease Visit Annual PCP Team Chronic Disease Visit [facility] Start: 01-17-2025 BP Controlled (<130/80) BP Controlled (<130/80) [facility] Start: 01-10-2025 End: 01-10-2025 Patient encounter procedure 01/10/2025 9:45 AM EDT Office Visit Endocrinology [address] [place] [address] Evelin Reich, SAMANTHA.[facility] [address] [place] [address] 6 month follow up Endocrinology Comment on above: 6 month follow up Start: 01-04-2025 Hemoglobin A1c measurement HbA1C [facility] Start: 12-20-2024 End: 03-21-2025 Comprehensive metabolic 2000 panel - Serum or Plasma COMPREHENSIVE METABOLIC PANEL Lab Routine Controlled type 2 diabetes mellitus without complication, unspecified whether oysterman insulin use (HCC) Expected: 12/20/2024, Expires: 03/21/2025 [facility] Work Phone: Comment on above: Expected: 12/20/2024, Expires: Start: 12-20-2024 End: 03-21-2025 Hemoglobin A1c in Blood HEMOGLOBIN A1C Lab Routine Controlled type 2 diabetes mellitus without complication, unspecified whether oysterman insulin use (HCC) Expected: 12/20/2024, Expires: 03/21/2025 [facility] Comment on above: Expected: 12/20/2024, Expires: Start: 12-20-2024 End: 03-21-2025 LIPID PANEL, NONFASTING LIPID PANEL, NONFASTING Lab Routine Controlled type 2 diabetes mellitus without complication, unspecified whether fci insulin use (HCC) Expected: 12/20/2024, Expires: 03/21/2025 [facility] Comment on above: Expected: 12/20/2024, Expires: Start: 12-20-2024 End: 03-21-2025 Microalbumin/Creatinine [Mass Ratio] in Urine ALBUMIN/CREATININE RATIO, URINE Lab Routine Controlled type 2 diabetes mellitus without complication, unspecified whether fci insulin use (HCC) Expected: 12/20/2024, Expires: 03/21/2025 [facility] Comment on above: Expected: 12/20/2024, Expires: Start: 12-12-2024 End: 12-12-2024 Follow-up encounter 12/12/2024 10:00 AM EDT [facility] Pain Management [address] [address] Anjali Fong, JUDICIAL CLERK.UTILIZATION REVIEWER [address] [place] [address] follow up 2 weeks after procedure Pain Management Comment on above: follow up 2 weeks after procedure Start: 12-04-2024 End: 12-04-2024 Patient encounter procedure 12/04/2024 11:45 AM EDT Office Visit Dermatology [address] [place] [address] Bhumi Carlisle, JUDICIAL CLERK.UTILIZATION REVIEWER [address] [place] [address] [facility] Dermatology Comment on above: GOC Start: 11-28-2024 End: 11-28-2024 Admission to same day surgery center 11/28/2024 9:13 AM EDT - 11/28/2024 9:42 AM EDT Surgery [facility] Endoscopy [address] [place] [address] Prabhu Tyler MD [address] [place] [address] BLOCK JOINT FACET CERVICAL WITH C-ARM [facility] Endoscopy Comment on above: BLOCK JOINT FACET CERVICAL WITH C-ARM Start: 11-28-2024 End: 11-28-2024 Njx dx/ther agt pvrt facet jt crv/thrc 1 level BLOCK JOINT FACET CERVICAL WITH C-ARM Cervical spondylosis Cervical facet joint syndrome 11/28/2024 9:13 AM EDT [facility] Start: 11-28-2024 End: 11-28-2024 Njx dx/ther agt pvrt facet jt crv/thrc 2nd level BLOCK JOINT FACET CERVICAL EA ADDL VERTEBRA 2 W/IMAGE GUIDANCE FLUORO OR CT Cervical spondylosis Cervical facet joint syndrome 11/28/2024 9:13 AM EDT [facility] END[facility] Start: 11-28-2024 Subsequent hospital visit by physician 11/28/2024 9:13 AM EDT Hospital Encounter [facility] Endoscopy [address] [place] [address] Prabhu Tyler MD [address] [address] Cervical spondylosis [M47.812], Cervical facet joint syndrome [M47.812] [facility] Endoscopy Comment on above: Cervical spondylosis [M47.812], Cervical facet joint syndrome [M47.812] Start: 11-28-2024 End: 11-28-2024 Admission to same day surgery center 11/28/2024 7:30 AM EDT - 11/28/2024 7:59 AM EDT Surgery [facility] Endoscopy [address] [place] [address] Prabhu Tyler MD [address] [place] [address] BLOCK JOINT FACET CERVICAL WITH C-ARM [facility] Endoscopy Comment on above: BLOCK JOINT FACET CERVICAL WITH C-ARM Start: 11-28-2024 End: 11-28-2024 Njx dx/ther agt pvrt facet jt crv/thrc 1 level BLOCK JOINT FACET CERVICAL WITH C-ARM Cervical spondylosis Cervical facet joint syndrome 11/28/2024 7:30 AM EDT ME ENDO Start: 11-28-2024 End: 11-28-2024 Njx dx/ther agt pvrt facet jt crv/thrc 2nd level BLOCK JOINT FACET CERVICAL EA ADDL VERTEBRA 2 W/IMAGE GUIDANCE FLUORO OR CT Cervical spondylosis Cervical facet joint syndrome 11/28/2024 7:30 AM EDT ME ENDO Start: 11-28-2024 Subsequent hospital visit by physician 11/28/2024 7:30 AM EDT Hospital Encounter [facility] Endoscopy [address] [place] [address] Prabhu Tyler MD [address] [address] Cervical spondylosis [M47.812], Cervical facet joint syndrome [M47.812] [facility] Endoscopy Comment on above: Cervical spondylosis [M47.812], Cervical facet joint syndrome [M47.812] Start: 11-21-2024 End: 02-20-2025 [id number]-[id number] [Mass/volume] in Serum or Plasma ALPHA FETOPROTEIN Lab Routine Examination of participant in clinical trial Expected: 11/21/2024, Expires: 02/20/2025 [facility] Work Phone: Comment on above: Expected: 11/21/2024, Expires: Start: 11-21-2024 End: 02-20-2025 PT panel - Platelet poor plasma by Coagulation assay PROTHROMBIN TIME Lab Routine Examination of participant in clinical trial Expected: 11/21/2024, Expires: 02/20/2025 [facility] Comment on above: Expected: 11/21/2024, Expires: Start: 11-20-2024 Influenza vaccination [facility] Start: 11-14-2024 End: 11-14-2024 Patient encounter procedure 11/14/2024 10:15 AM EDT Office Visit Dermatology [address] [place] [address] Bhumi Carlisle, SAMANTHA.UTILIZATION REVIEWER [address] [place] [address] [facility] Dermatology Comment on above: [facility] Start: 11-13-2024 End: 11-13-2024 Patient encounter procedure Family Medicine [place] Comment on above: 6 month follow up 3 month follow up Start: 11-07-2024 End: 11-07-2024 Patient encounter procedure Radiology Comment on above: Portal vein thrombosis [I81] VASC, IV, >60 NCA Start: 11-01-2024 End: 11-01-2024 Patient encounter procedure 11/01/2024 10:30 AM EDT Office Visit Gastroenterology [address] [id number] Elsa Hernandez MD [address] [place] [address] Follow up Chronic Autoimmune Hepatitis Gastroenterology Comment on above: Follow up Chronic Autoimmune Hepatitis Start: 10-13-2024 End: 10-13-2024 Follow-up encounter 10/13/2024 3:00 PM EDT Visit (SP) Office Hematology/Oncology [address] [place] [address] Liseth Ortiz DO [address] [place], [place] [id number] Follow up per wq Hematology/Oncology Comment on above: Follow up per wq Start: 10-11-2024 End: 10-11-2024 Patient encounter procedure 10/11/2024 11:00 AM EDT Office Visit Gastroenterology [address] [address] Elsa Hernandez MD [address] [place], [place] [phone] previos pt of Dr. Castellon Gastroenterology Comment on above: previos pt of Dr. Castellon Start: 10-06-2024 End: 10-06-2024 Patient encounter procedure 10/06/2024 11:40 AM EDT Appointment Cat Scan [address] [place], [place] [id number] Dx: Spinal stenosis of cervical region [M48.02] Cat Scan Comment on above: Dx: Spinal stenosis of cervical region [ M48.02] Start: 10-04-2024 End: 10-04-2024 Patient encounter procedure 10/04/2024 1:00 PM EDT Office Visit Pain Management [address] [address] Prabhu Tyler MD [address] [facility] [place] [address] Dx: Neck pain [M54.2] Pain Management Comment on above: Dx: Neck pain [M54.2] Start: 10-03-2024 End: 10-03-2024 Patient encounter procedure 10/03/2024 11:00 AM EDT Office Visit Family Medicine [place] [address] [place], [place] [phone] Obdulia Martínez, SAMANTHA.UTILIZATION REVIEWER [address] [place] [address] neck pain follow up Family Medicine [place] Comment on above: neck pain follow up Start: 09-28-2024 End: 12-28-2024 Complement C3 [Mass/volume] in Serum or Plasma C3 COMPLEMENT Lab Routine Stage 3a chronic kidney disease (HCC) Expected: 09/28/2024, Expires: 12/28/2024 [facility] Comment on above: Expected: 09/28/2024, Expires: Start: 09-28-2024 End: 12-28-2024 Complement C4 [Mass/volume] in Serum or Plasma C4 COMPLEMENT Lab Routine Stage 3a chronic kidney disease (HCC) Expected: 09/28/2024, Expires: 12/28/2024 [facility] Comment on above: Expected: 09/28/2024, Expires: Start: 09-28-2024 End: 12-28-2024 DNA double strand Ab [Units/volume] in Serum by Immunoassay DNA AB DS + CONF BLD Lab Routine Stage 3a chronic kidney disease (HCC) Expected: 09/28/2024, Expires: 12/28/2024 [facility] Comment on above: Expected: 09/28/2024, Expires: Start: 09-28-2024 End: 12-28-2024 MONOCLONAL PROTEIN, SERUM (BLOOD) MONOCLONAL PROTEIN, SERUM (BLOOD) Lab Routine Stage 3a chronic kidney disease (HCC) Expected: 09/28/2024, Expires: 12/28/2024 [facility] Comment on above: Expected: 09/28/2024, Expires: Start: 09-20-2024 Hemoglobin A1c measurement HbA1C [facility] Start: 09-19-2024 End: 12-19-2024 Eopqg-3-Zwyllhobpqz [Mass/volume] in Serum or Plasma ALPHA FETOPROTEIN Lab Routine Autoimmune hepatitis (HCC) Expected: 09/19/2024, Expires: 12/19/2024 [facility] Comment on above: Expected: 09/19/2024, Expires: Start: 09-19-2024 End: 04-26-2025 Basic metabolic 2000 panel - Serum or Plasma BASIC METABOLIC PANEL Lab Routine Autoimmune hepatitis (HCC) Expected: 09/19/2024, Expires: 04/26/2025 [facility] Comment on above: Expected: 09/19/2024, Expires: Start: 09-19-2024 End: 04-26-2025 CBC W Auto Differential panel - Blood COMPLETE BLOOD COUNT AND DIFFERENTIAL Lab Routine Autoimmune hepatitis (HCC) Expected: 09/19/2024, Expires: 04/26/2025 [facility] Comment on above: Expected: 09/19/2024, Expires: Start: 09-19-2024 End: 04-26-2025 Hepatic function 2000 panel - Serum or Plasma HEPATIC FUNCTION PNL Lab Routine Autoimmune hepatitis (HCC) Expected: 09/19/2024, Expires: 04/26/2025 [facility] Comment on above: Expected: 09/19/2024, Expires: Start: 09-19-2024 End: 04-26-2025 PT panel - Platelet poor plasma by Coagulation assay PROTHROMBIN TIME Lab Routine Autoimmune hepatitis (HCC) Expected: 09/19/2024, Expires: 04/26/2025 [facility] Comment on above: Expected: 09/19/2024, Expires: Start: 09-19-2024 End: 05-26-2025 US Abdomen RUQ US ABD RIGHT UPPER QUADRANT Radiology Routine Autoimmune hepatitis (HCC) Expected: 09/19/2024, Expires: 05/26/2025 [facility] Work Phone: Comment on above: Expected: 09/19/2024, Expires: Start: 09-07-2024 Urine microalbumin profile [facility] Start: 08-29-2024 Hepatitis B screening Urine Albumin:Creatinine Ratio [facility] Start: 08-29-2024 Hepatitis B surface antibody level LDL Cholesterol [facility] Start: 08-10-2024 End: 08-10-2024 ambulatory 08/10/2024 11:00 AM EDT Visit (SP) Office Hematology/Oncology [address] [place] [address] Lana Jo MD [address] [place] [address] 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] Hematology/Oncology Comment on above: Clonal cytopenia of undetermined signifi cance (CCUS) [D75.9] Start: 08-08-2024 BP Controlled (<130/80) BP Controlled (<130/80) [facility] in Start: 08-07-2024 End: 08-07-2024 Patient encounter procedure 08/07/2024 11:00 AM EDT Office Visit Vascular Medicine [address] [place] [address] Jose Landry MD [address] [place] [address] 3 month follow up Vascular Medicine Comment on above: 3 month follow up Start: 08-06-2024 [facility] Start: 07-24-2024 End: 07-24-2024 Patient encounter procedure 07/24/2024 1:40 PM EDT Office Visit Family Medicine [place] [address] [place] [address] Davis May MD [address] [place] [address] 6 month follow up [facility] [place] Comment on above: 6 month follow up Start: 07-20-2024 End: 07-20-2024 Patient encounter procedure 07/20/2024 9:40 AM EDT Office Visit Dermatology [address] [place] [address] Marcos Farrell PA-C [address] [place], [place] [phone] 10 wk FU Dermatology Comment on above: 10 wk FU Start: 07-15-2024 Annual PCP Team Chronic Disease Visit Annual PCP Team Chronic Disease Visit [facility] Start: 07-15-2024 Anxiety Screening Anxiety Screening [facility] Start: 07-15-2024 BP Controlled (<130/80) BP Controlled (<130/80) [facility] in Start: 07-15-2024 Covid-19 Vaccine () Covid-19 Vaccine () [facility] Comment on above: Postponed from 05/21/2023 (Declined at t his time) Start: 07-15-2024 Depression Screening Depression Screening [facility] Start: 07-14-2024 End: 07-14-2024 Follow-up encounter 07/14/2024 2:30 PM EDT Visit (SP) Office Hematology/Oncology [address] [place] [address] Liseth Ortiz DO [address] [place] [address] follow up per pt req Hematology/Oncology Comment on above: follow up per pt req Start: 07-12-2024 End: 10-11-2024 MYELOID NGS PANEL PERIPHERAL BLOOD MYELOID NGS PANEL PERIPHERAL BLOOD Lab Routine Thrombocytopenia Expected: 07/12/2024, Expires: 10/11/2024 [facility] Comment on above: Expected: 07/12/2024, Expires: Start: 07-12-2024 End: 10-11-2024 PROTEIN ELECTROPHORESIS SERUM W/INTERP PROTEIN ELECTROPHORESIS SERUM W/INTERP Lab Routine MGUS (monoclonal gammopathy of unknown significance) Expected: 07/12/2024, Expires: 10/11/2024 [facility] Comment on above: Expected: 07/12/2024, Expires: Start: 07-08-2024 BP Controlled (<130/80) BP Controlled (<130/80) [facility] Start: 07-05-2024 End: 07-05-2024 Patient encounter procedure 07/05/2024 9:45 AM EDT Office Visit Endocrinology [address] [place] [address] Evelin Reich, JUDICIAL CLERK.UTILIZATION REVIEWER [address] [place] [address] 6 month f/u Endocrinology Comment on above: 6 month f/u Start: 06-17-2024 BP Controlled (<130/80) BP Controlled (<130/80) [facility] inic Start: 06-12-2024 End: 06-12-2024 Patient encounter procedure Cardiology Comment on above: 8 month follow up Start: 06-06-2024 End: 06-06-2024 Patient encounter procedure 06/06/2024 9:40 AM EDT Office Visit Cardiology [address] [place], [place] [phone] Echo Cardiology Comment on above: Echo Start: 05-30-2024 End: 05-30-2024 Patient encounter procedure 05/30/2024 2:20 PM EDT Office Visit Family Medicine [place] [address] [place], [place] [phone] Sanna Larsen APRN.UTILIZATION REVIEWER [address] [place], [place] [phone] Sinus congestion/chest congestion [facility] [place] Comment on above: Sinus congestion/chest congestion Start: 05-29-2024 Hemoglobin A1c measurement HbA1C [facility] Start: 05-24-2024 End: 08-23-2024 Renal function 2000 panel - Serum or Plasma RENAL FUNCTION PANEL Lab Routine Stage 3a chronic kidney disease (HCC) Primary hypertension Expected: 05/24/2024, Expires: 08/23/2024 [facility] Comment on above: Expected: 05/24/2024, Expires: Start: 05-20-2024 Hepatitis B surface antibody level LDL Cholesterol [facility] Start: 05-19-2024 End: 05-19-2024 Nursing evaluation of patient and report 05/19/2024 11:00 AM EST Nurse Visit Clinical Research [address] [place], [place] [phone] [facility], Nurse [address] [place] [address] IRB# [id number], ROXANE Larkin, V3, Subj. ID# [id number], [facility] Comment on above: IRB# [id number], Dasarathy, LCN, V3, Subj. ID# [id number], [facility] Start: 05-19-2024 End: 05-19-2024 Patient encounter procedure 05/19/2024 11:00 AM EST Office Visit Clinical Research [address] [id number] , [place]ay[place] [address] [place] [address] IRB# [id number], Dasarathy, LCN, V3, Subj. ID# [id number], [facility] Comment on above: IRB# [id number], Dasarathy, LCN, V3, Subj. ID# [id number], [facility] Start: 05-17-2024 End: 08-16-2024 Renal function 2000 panel - Serum or Plasma RENAL FUNCTION PANEL Lab Routine Stage 3a chronic kidney disease (HCC) Primary hypertension Expected: 05/17/2024, Expires: 08/16/2024 [facility] Work Phone: Comment on above: Expected: 05/17/2024, Expires: Start: 05-12-2024 End: 05-12-2024 Patient encounter procedure 05/12/2024 4:20 PM EST Office Visit Family Medicine [place] [address] [place] [address] Davis May MD [address] [place] [address] 4 week follow up [facility] Medicine [place] Comment on above: 4 week follow up Start: 05-11-2024 End: 05-11-2024 Patient encounter procedure Dermatology Comment on above: follow up ak follow up Start: 05-10-2024 End: 05-10-2024 Patient encounter procedure 05/10/2024 11:30 AM EST Office Visit Vascular Medicine [address] [id number] Jose Landry MD [address] [place] [address] PVT Vascular Medicine Comment on above: PVT Start: 04-26-2024 End: 04-26-2024 Follow-up encounter 04/26/2024 10:00 AM EST [facility] Gastroenterology [address] [address] Stevan Thomas MD [address] [place] [address] CT Follow Up/Chronic Autoimmune Hepatitis/Dr Bear patient Gastroenterology Comment on above: CT Follow Up/Chronic Autoimmune Hepatiti s/Dr Bear patient Start: 04-24-2024 End: 04-24-2024 Patient encounter procedure 04/24/2024 1:30 PM EST Office Visit Urology [address] [place] [address] Lora Thomas MD [address] [facility] [place] [address] *UA. Microscopic hematuria [R31.29] Urology Comment on above: *UA. Microscopic hematuria [R31.29] Start: 04-24-2024 End: 04-24-2024 Patient encounter procedure 04/24/2024 9:40 AM EST Office Visit Dermatology [address] [phone] Bhumi Carlisle APRN.UTILIZATION REVIEWER [address] [place] [address] 3 months (around 04/22/2024) for efudex follow up with MA/KS. Dermatology Comment on above: 3 months (around 04/22/2024) for efudex fo llow up with MA/KS. Start: 04-20-2024 End: 04-20-2024 Follow-up encounter 04/20/2024 12:45 PM EST [facility] Gastroenterology [address] [address] Stevan Thomas MD [address] [place] [address] CT Follow Up/Chronic Autoimmune Hepatitis/Dr Bear patient Gastroenterology Comment on above: CT Follow Up/Chronic Autoimmune Hepatiti s/Dr Bear patient Start: 04-19-2024 End: 07-19-2024 Renal function 2000 panel - Serum or Plasma RENAL FUNCTION PANEL Lab Routine Stage 3a chronic kidney disease (HCC) Expected: 04/19/2024, Expires: 07/19/2024 [facility] Work Phone: Comment on above: Expected: 04/19/2024, Expires: Start: 04-18-2024 End: 04-18-2024 Patient encounter procedure Urology Comment on above: Microscopic hematuria [R31.29] *UA. Microscopic hem aturia [R31.29] Start: 04-16-2024 Annual PCP Team Chronic Disease Visit Annual PCP Team Chronic Disease Visit [facility] Start: 04-16-2024 BP Controlled (<130/80) BP Controlled (<130/80) [facility] inic Start: 04-13-2024 Hemoglobin A1c measurement HbA1C [facility] Start: 04-12-2024 End: 07-12-2024 25-hydroxyvitamin D3 [Mass/volume] in Serum or Plasma VITAMIN D 25 HYDROXY Lab Routine Stage 3a chronic kidney disease (HCC) Expected: 04/12/2024, Expires: 07/12/2024 [facility] Comment on above: Expected: 04/12/2024, Expires: 5 Start: 04-12-2024 End: 04-12-2025 ANTI NEUTRO CYTO AB ANTI NEUTRO CYTO AB Lab Routine Stage 3a chronic kidney disease (HCC) Expected: 04/12/2024, Expires: 04/12/2025 [facility] Comment on above: Expected: 04/12/2024, Expires: Start: 04-12-2024 End: 04-12-2025 Basement membrane IgG Ab [Presence] in Serum by Immunofluorescence GBM AB, IGG (IFA) Lab Routine Stage 3a chronic kidney disease (HCC) Expected: 04/12/2024, Expires: 04/12/2025 [facility] Comment on above: Expected: 04/12/2024, Expires: Start: 04-12-2024 End: 07-12-2024 CBC panel - Blood by Automated count COMPLETE BLOOD COUNT Lab Routine Stage 3a chronic kidney disease (HCC) Expected: 04/12/2024, Expires: 07/12/2024 [facility] Comment on above: Expected: 04/12/2024, Expires: Start: 04-12-2024 End: 04-12-2025 Complement C3 [Mass/volume] in Serum or Plasma C3 COMPLEMENT Lab Routine Stage 3a chronic kidney disease (HCC) Expected: 04/12/2024, Expires: 04/12/2025 [facility] Comment on above: Expected: 04/12/2024, Expires: Start: 04-12-2024 End: 04-12-2025 Complement C4 [Mass/volume] in Serum or Plasma C4 COMPLEMENT Lab Routine Stage 3a chronic kidney disease (HCC) Expected: 04/12/2024, Expires: 04/12/2025 [facility] Comment on above: Expected: 04/12/2024, Expires: Start: 04-12-2024 End: 07-12-2024 CRYOGLOBULIN, QUAL, REFLEX TO MADHAV AND IGG,A,M CRYOGLOBULIN, QUAL, REFLEX TO MADHAV AND IGG,A,M Lab Routine Stage 3a chronic kidney disease (HCC) Expected: 04/12/2024, Expires: 07/12/2024 [facility] Comment on above: Expected: 04/12/2024, Expires: Start: 04-12-2024 End: 07-12-2024 DNA double strand Ab [Units/volume] in Serum by Immunoassay DNA AB DS + CONF BLD Lab Routine Stage 3a chronic kidney disease (HCC) Expected: 04/12/2024, Expires: 07/12/2024 [facility] Comment on above: Expected: 04/12/2024, Expires: Start: 04-12-2024 End: 04-12-2025 HIV 1+2 Ab [Presence] in Serum or Plasma by Immunoassay HIV 1/2 COMBO WITH REFLEX TO DIFFERENTIATION Lab Routine Stage 3a chronic kidney disease (HCC) Expected: 04/12/2024, Expires: 04/12/2025 [facility] Comment on above: Expected: 04/12/2024, Expires: Start: 04-12-2024 End: 07-12-2024 MONOCLONAL PROTEIN, SERUM (BLOOD) MONOCLONAL PROTEIN, SERUM (BLOOD) Lab Routine Stage 3a chronic kidney disease (HCC) Expected: 04/12/2024, Expires: 07/12/2024 [facility] Comment on above: Expected: 04/12/2024, Expires: Start: 04-12-2024 End: 07-12-2024 Parathyrin.intact [Mass/volume] in Serum or Plasma PTH INTACT Lab Routine Stage 3a chronic kidney disease (HCC) Expected: 04/12/2024, Expires: 07/12/2024 [facility] Comment on above: Expected: 04/12/2024, Expires: Start: 04-12-2024 End: 07-12-2024 PRIMARY MEMBRANEOUS NEPHROPATHY DIAGNOSTIC CASCADE, SER PRIMARY MEMBRANEOUS NEPHROPATHY DIAGNOSTIC CASCADE, SER Lab Routine Stage 3a chronic kidney disease (HCC) Expected: 04/12/2024, Expires: 07/12/2024 [facility] Comment on above: Expected: 04/12/2024, Expires: Start: 04-12-2024 End: 07-12-2024 Renal function 2000 panel - Serum or Plasma RENAL FUNCTION PANEL Lab Routine Stage 3a chronic kidney disease (HCC) Expected: 04/12/2024, Expires: 07/12/2024 [facility] Work Phone: Comment on above: Expected: 04/12/2024, Expires: Start: 04-12-2024 End: 04-12-2024 Patient encounter procedure Kidney Medicine Comment on above: CKD Hospital follow up D /C [facility] 03.31.2024 Risk Score 18 Admitted for: New onset portal vein thrombosis Start: 04-06-2024 End: 04-06-2024 Patient encounter procedure 04/06/2024 11:00 AM EST Office Visit Kidney Medicine [id number] [place] [address] Anjel Bird, JUDICIAL CLERK.UTILIZATION REVIEWER [address] [place] [address] hospital DC f/u for CKD3a Kidney Medicine Comment on above: hospital DC f/u for CKD3a Start: 03-31-2024 End: 03-31-2024 Follow-up encounter Gastroenterology Comment on above: CT Follow Up/Chronic Autoimmune Hepatiti s/Dr Bear patient Start: 03-29-2024 End: 03-29-2024 Patient encounter procedure 03/29/2024 11:00 AM EST Appointment Radiology [address] [place] [address] Liver disease [K76.9] Radiology Comment on above: Liver disease [K76.9] Start: 03-22-2024 End: 06-21-2024 Hemoglobin A1c in Blood HEMOGLOBIN A1C Lab Routine Controlled type 2 diabetes mellitus without complication, unspecified whether fci insulin use (HCC) Expected: 03/22/2024, Expires: 06/21/2024 [facility] Work Phone: Comment on above: Expected: 03/22/2024, Expires: Start: 03-19-2024 Hepatitis B screening Urine Albumin:Creatinine Ratio [facility] Start: 03-19-2024 Hepatitis B surface antibody level LDL Cholesterol [facility] Start: 03-04-2024 Hepatitis B surface antibody level LDL Cholesterol [facility] Start: 02-29-2024 Hemoglobin A1c measurement HbA1C [facility] [facility] Start: 02-09-2024 End: 05-10-2024 [id number] [Mass/volume] in Serum or Plasma ALPHA FETOPROTEIN Lab Routine Autoimmune hepatitis (HCC) Expected: 02/09/2024, Expires: 05/10/2024 [facility] Comment on above: Expected: 02/09/2024, Expires: Start: 02-09-2024 End: 08-08-2024 Basic metabolic 2000 panel - Serum or Plasma BASIC METABOLIC PANEL Lab Routine Autoimmune hepatitis (HCC) Expected: 02/09/2024, Expires: 08/08/2024 [facility] Comment on above: Expected: 02/09/2024, Expires: Start: 02-09-2024 End: 08-08-2024 CBC W Auto Differential panel - Blood COMPLETE BLOOD COUNT AND DIFFERENTIAL Lab Routine Autoimmune hepatitis (HCC) Expected: 02/09/2024, Expires: 08/08/2024 [facility] Comment on above: Expected: 02/09/2024, Expires: Start: 02-09-2024 End: 08-08-2024 Hepatic function 2000 panel - Serum or Plasma HEPATIC FUNCTION PNL Lab Routine Autoimmune hepatitis (HCC) Expected: 02/09/2024, Expires: 08/08/2024 [facility] Work Phone: Comment on above: Expected: 02/09/2024, Expires: Start: 02-09-2024 End: 08-08-2024 PT panel - Platelet poor plasma by Coagulation assay PROTHROMBIN TIME Lab Routine Autoimmune hepatitis (HCC) Expected: 02/09/2024, Expires: 08/08/2024 [facility] Comment on above: Expected: 02/09/2024, Expires: Start: 02-08-2024 Covid-19 Vaccine () Covid-19 Vaccine () [facility] Start: 01-24-2024 End: 01-24-2024 Patient encounter procedure 01/24/2024 1:45 PM EST Office Visit OPHT Ophthalmology [address] [place] [address] Angeline Pfeiffer, OD [address] [place] [address] 1 YR complete eye exam with BAT testing. Ophthalmology Comment on above: 1 YR complete eye exam with BAT testing. Start: 01-21-2024 End: 01-21-2024 Patient encounter procedure 01/21/2024 11:00 AM EDT Office Visit Dermatology [address] [place] [address] Sury Mathias APRN.UTILIZATION REVIEWER [address] [place] [address] Return in about 3 months (around 01/19/2024). Dermatology Comment on above: Return in about 3 months (around 024). Start: 01-17-2024 End: 01-17-2024 Patient encounter procedure 01/17/2024 1:40 PM EDT Office Visit Family Medicine [facility] [address] [place] [address] Davis May MD [address] [place] [address] 6 month follow up Family Medicine [facility] Comment on above: 6 month follow up Start: 01-16-2024 Annual PCP Team Chronic Disease Visit Annual PCP Team Chronic Disease Visit [facility] Start: 01-16-2024 BP Controlled (<130/80) BP Controlled (<130/80) [facility] in Start: 01-16-2024 RSV Vaccine (1 - 1-dose 60+ series) RSV Vaccine (1 - 1-dose 60+ series) [facility] Comment on above: Postponed from 2008 (Declined at t his time) Start: 01-14-2024 End: 01-14-2024 ambulatory [facility] 1 Chrissy randi Bach Comment on above: Labs D50.0 Start: 12-02-2023 End: 12-02-2023 ambulatory 12/02/2023 10:00 AM EDT Visit (SP) Office Hematology/Oncology [address] [place] [address] [place] [address] [place] [address] OV/LABS 11/29* Hematology/Oncology Comment on above: OV/LABS 11/29* Start: 11-30-2023 End: 11-30-2023 ambulatory 11/30/2023 10:00 AM EDT Results Only [place] [place] [facility] [address] [place] [address] CBC/IRON STUDIES* [facility] Comment on above: CBC/IRON STUDIES* Start: 11-21-2023 Covid-19 Vaccine () Covid-19 Vaccine () [facility] Start: 11-21-2023 Covid-19 Vaccine ( season) Covid-19 Vaccine () [facility] Start: 11-21-2023 Influenza vaccination Influenza Vaccine (#1) [place] Clar[facility] Start: 11-17-2023 End: 11-17-2023 Patient encounter procedure 11/17/2023 8:45 AM EDT Office Visit Endocrinology [address] [place] [address] Evelin Reich, JUDICIAL CLERK.UTILIZATION REVIEWER [address] [place] [address] blood sugar Endocrinology Comment on above: blood sugar Start: 10-20-2023 End: 10-20-2023 Patient encounter procedure 10/20/2023 12:45 PM EDT Office Visit Endocrinology [address] [place] [address] Evelin Reich, JUDICIAL CLERK.UTILIZATION REVIEWER [address] [place] [address] blood sugar Endocrinology Comment on above: blood sugar Start: 10-19-2023 End: 10-19-2023 Patient encounter procedure 10/19/2023 2:30 PM EDT Office Visit Dermatology [address] [place] [address] Sury Mathias, JUDICIAL CLERK.UTILIZATION REVIEWER [address] [place] [address] *patient will need to wait for team to contact him if this appointment date and time does not work Dermatology Comment on above: *patient will need to wait for team to c ontact him if this appointment date and time does not work Start: 10-15-2023 ANNUAL PCP TEAM CHRONIC DISEASE VISIT ANNUAL PCP TEAM CHRONIC DISEASE VISIT [facility] Start: 10-04-2023 End: 10-04-2023 Patient encounter procedure Cardiology Comment on above: 6 month follow up *patient will need t o wait for team to contact him if this appointment date and time does not work Start: 10-01-2023 End: 10-11-2024 25-hydroxyvitamin D3 [Mass/volume] in Serum or Plasma VITAMIN D 25 HYDROXY Lab Routine Encounter for screening for osteoporosis Liver disease Autoimmune hepatitis (HCC) Expected: 10/01/2023, Expires: 12/31/2023 [facility] Comment on above: Expected: 10/01/2023, Expires: Start: 10-01-2023 End: 12-31-2023 [id number]-6-[id number] [Mass/volume] in Serum or Plasma ALPHA FETOPROTEIN Lab Routine Encounter for screening for osteoporosis Liver disease Autoimmune hepatitis (HCC) Expected: 10/01/2023, Expires: 12/31/2023 [facility] Work Phone: Comment on above: Expected: 10/01/2023, Expires: Start: 10-01-2023 End: 12-31-2023 CBC panel - Blood by Automated count COMPLETE BLOOD COUNT Lab Routine Encounter for screening for osteoporosis Liver disease Autoimmune hepatitis (HCC) Expected: 10/01/2023, Expires: 12/31/2023 [facility] Comment on above: Expected: 10/01/2023, Expires: Start: 10-01-2023 End: 12-31-2023 Comprehensive metabolic 2000 panel - Serum or Plasma COMPREHENSIVE METABOLIC PANEL Lab Routine Encounter for screening for osteoporosis Liver disease Autoimmune hepatitis (HCC) Expected: 10/01/2023, Expires: 12/31/2023 [facility] Comment on above: Expected: 10/01/2023, Expires: Start: 10-01-2023 End: 12-31-2023 PT panel - Platelet poor plasma by Coagulation assay PROTHROMBIN TIME Lab Routine Encounter for screening for osteoporosis Liver disease Autoimmune hepatitis (HCC) Expected: 10/01/2023, Expires: 12/31/2023 [facility] Comment on above: Expected: 10/01/2023, Expires: Start: 09-28-2023 End: 09-28-2023 ambulatory 09/28/2023 11:20 AM EDT Procedure Gastroenterology [address] [place] [address] Fibroscan Gastroenterology Comment on above: Fibroscan Start: 09-28-2023 End: 09-28-2023 Patient encounter procedure Radiology Comment on above: LVUS/Doppler Follow up Start: 09-26-2023 Covid-19 Vaccine () Covid-19 Vaccine () [facility] Start: 09-21-2023 End: 09-21-2023 Patient encounter procedure 09/21/2023 9:15 AM EDT Office Visit Dermatology [address] [place] [address] Sury Mathias, SAMANTHA.UTILIZATION REVIEWER [address] [place] [address] follow up PDT Dermatology Comment on above: follow up PDT Start: 09-02-2023 End: 09-02-2023 Nursing evaluation of patient and report Clinical Research Comment on above: IRB#: [facility] [id number], Trea,visit 2 , ID#: [id number], Patient consented. Please schedule MD visit. No fibroscan this visit. IRB#: [facility] IRB [id number], Dannythy,visit 2, ID#: [id number], Patient consented. No fibroscan this visit. Start: 09-02-2023 End: 09-02-2023 Patient encounter procedure 09/02/2023 10:30 AM EDT Office Visit Clinical Research [address] [place] [address] , Study [address] [place] [address] IRB#: [facility] [id number], Trae,visit 2, ID#: [id number], Patient consented. Please schedule MD visit. No fibroscan this visit. Clinical Research Comment on above: IRB#: [facility] IRB [id number], Trae,visit 2 , ID#: [id number], Patient consented. Please schedule MD visit. No fibroscan this visit. Start: 09-01-2023 End: 09-01-2023 ambulatory 09/01/2023 10:20 AM EDT Visit (SP) Office Hematology/Oncology [address] [place] [address] [place] [address] [place] [address] OV/LABS 08/29* Hematology/Oncology Comment on above: OV/LABS 08/29* Start: 08-30-2023 End: 08-30-2023 ambulatory 08/30/2023 10:00 AM EDT Results Only [facility] [place] [facility] [address] [place] [address] LABS/?IRON STUDIES* [facility] Comment on above: LABS/?IRON STUDIES* Start: 08-09-2023 End: 08-09-2023 Patient encounter procedure 08/09/2023 10:00 AM EDT Office Visit Gastroenterology [address] [address] Myra Gallardo APRN.UTILIZATION REVIEWER [address] [facility] [place] [address] Autoimmune hepatitis follow up Gastroenterology Comment on above: Autoimmune hepatitis follow up Start: 07-21-2023 End: 07-21-2023 Patient encounter procedure 07/21/2023 11:00 AM EDT Office Visit Family Drea [facility] [address] [facility] [place] [address] Davis May MD [address] [facility] [place] [address] 6 Month follow up Family Drea Orantes Comment on above: 6 Month follow up Start: 07-16-2023 End: 07-16-2023 Patient encounter procedure 07/16/2023 9:20 AM EDT Office Visit Family Drea Orantes [address] [facility] [place] [address] Davis May MD [address] [place], [place] [address] 3 month follow up Family Drea Orantes Comment on above: 3 month follow up Start: 06-18-2023 Hemoglobin A1c measurement HbA1C [facility] Start: 06-15-2023 End: 09-14-2023 25-hydroxyvitamin D3 [Mass/volume] in Serum or Plasma VITAMIN D 25 HYDROXY Lab Routine Autoimmune hepatitis (HCC) Hepatic sclerosis Expected: 06/15/2023, Expires: 09/14/2023 [facility] Work Phone: Comment on above: Expected: 06/15/2023, Expires: Start: 06-15-2023 End: 09-14-2023 [id number] [Mass/volume] in Serum or Plasma ALPHA FETOPROTEIN BL Lab Routine Autoimmune hepatitis (HCC) Expected: 06/15/2023, Expires: 09/14/2023 [facility] Work Phone: Comment on above: Expected: 06/15/2023, Expires: Start: 06-15-2023 End: 09-14-2023 CBC panel - Blood by Automated count CBC Lab Routine Autoimmune hepatitis (HCC) Expected: 06/15/2023, Expires: 09/14/2023 [facility] Work Phone: Comment on above: Expected: 06/15/2023, Expires: Start: 06-15-2023 End: 09-14-2023 Comprehensive metabolic 2000 panel - Serum or Plasma COMP METABOLIC PANEL Lab Routine Autoimmune hepatitis (HCC) Expected: 06/15/2023, Expires: 09/14/2023 [facility] Work Phone: Comment on above: Expected: 06/15/2023, Expires: Start: 06-15-2023 End: 09-14-2023 IgG [Mass/volume] in Serum or Plasma IGG Lab Routine Autoimmune hepatitis (HCC) Expected: 06/15/2023, Expires: 09/14/2023 [facility] Work Phone: Comment on above: Expected: 06/15/2023, Expires: Start: 06-15-2023 End: 09-14-2023 PT panel - Platelet poor plasma by Coagulation assay PROTHROMBIN TIME Lab Routine Autoimmune hepatitis (HCC) Expected: 06/15/2023, Expires: 09/14/2023 [facility] Work Phone: Comment on above: Expected: 06/15/2023, Expires: Start: 05-21-2023 Covid-19 Vaccine () Covid-19 Vaccine () [facility] Start: 05-21-2023 Covid-19 Vaccine () Covid-19 Vaccine () [facility] Start: 05-01-2023 Hemoglobin A1c measurement HbA1C [facility] Start: 05-01-2023 Hemoglobin A1c/Hemoglobin.total in Blood HbA1C [facility] Start: 04-20-2023 ANNUAL PCP TEAM CHRONIC DISEASE VISIT ANNUAL PCP TEAM CHRONIC DISEASE VISIT [facility] Start: 04-09-2023 Hepatitis B surface antibody level LDL CHOLESTEROL [facility] Start: 03-29-2023 Patient discharge [facility] Start: 03-29-2023 [facility] Start: 03-28-2023 Provision of activity privileges [facility] Start: 03-27-2023 End: 03-28-2023 [facility] Start: 03-27-2023 Application of intermittent pneumatic compression device [facility] Start: 03-26-2023 Following clinical pathway protocol [facility] Start: 03-26-2023 Assessment of risk of venous thromboembolism [facility] Start: 03-26-2023 Documentation procedure [facility] Start: 03-26-2023 Inhalation therapy procedure [facility] Start: 03-26-2023 Insertion of catheter into peripheral vein [facility] Start: 03-26-2023 Measuring intake and output [facility] Start: 03-26-2023 Providing care according to standard [facility] Start: 03-26-2023 Provision of activity privileges [facility] Start: 03-26-2023 End: 03-26-2023 [facility] Start: 03-26-2023 Verification routine [facility] Start: 03-26-2023 End: 03-26-2023 Admission procedure [facility] Start: 03-26-2023 Hospital admission, emergency, from emergency room, medical nature [facility] Start: 03-22-2023 End: 05-22-2023 ALBUMIN/CREAT RATIO RND UR ALBUMIN/CREAT RATIO RND UR Lab Routine Poorly controlled type 2 diabetes mellitus (HCC) Expected: 03/22/2023, Expires: 05/22/2023 [facility] Work Phone: Comment on above: Expected: 03/22/2023, Expires: Start: 03-22-2023 Behavioral Health Screening Behavioral Health Screening [facility] Start: 03-22-2023 End: 05-22-2023 Comprehensive metabolic 2000 panel - Serum or Plasma COMP METABOLIC PANEL Lab Routine Poorly controlled type 2 diabetes mellitus (HCC) Expected: 03/22/2023, Expires: 05/22/2023 [facility] Work Phone: Comment on above: Expected: 03/22/2023, Expires: Start: 03-22-2023 Covid-19 Vaccine () Covid-19 Vaccine () [facility] Comment on above: Postponed from 12/13/2022 (Declined at t his time) Start: 03-22-2023 Depression Assessment Depression Assessment [facility] Start: 03-22-2023 End: 05-22-2023 Hemoglobin A1c in Blood HGB A1C Lab Routine Poorly controlled type 2 diabetes mellitus (HCC) Expected: 03/22/2023, Expires: 05/22/2023 [facility] Work Phone: Comment on above: Expected: 03/22/2023, Expires: Start: 03-22-2023 End: 05-22-2023 LIPID PANEL, NONFASTING LIPID PANEL, NONFASTING Lab Routine Poorly controlled type 2 diabetes mellitus (HCC) Expected: 03/22/2023, Expires: 05/22/2023 [facility] Work Phone: Comment on above: Expected: 03/22/2023, Expires: Start: 12-22-2022 ANNUAL PCP TEAM CHRONIC DISEASE VISIT ANNUAL PCP TEAM CHRONIC DISEASE VISIT [facility] Start: 12-20-2022 End: 02-19-2023 Hemoglobin A1c in Blood HGB A1C Lab Routine Poorly controlled type 2 diabetes mellitus (HCC) Expected: 12/20/2022, Expires: 02/19/2023 [facility] Work Phone: Comment on above: Expected: 12/20/2022, Expires: 3 Start: 12-19-2022 Hemoglobin A1c/Hemoglobin.total in Blood HBA1C [facility] Start: 12-13-2022 COVID-19 VACCINE (8 - Pfizer risk series) COVID-19 VACCINE (8 - Pfizer risk series) [facility] Start: 11-20-2022 Influenza vaccination [facility] Start: 11-10-2022 Hepatitis B screening URINE ALBUMIN:CREATININE RATIO [facility] Start: 10-16-2022 ANNUAL PCP TEAM CHRONIC DISEASE VISIT ANNUAL PCP TEAM CHRONIC DISEASE VISIT [facility] Start: 07-19-2022 End: 09-18-2022 Hemoglobin A1c in Blood HGB A1C Lab Routine Controlled type 2 diabetes mellitus without complication, unspecified whether fci insulin use (HCC) Expected: 07/19/2022, Expires: 09/18/2022 [facility] Work Phone: Comment on above: Expected: 07/19/2022, Expires: 3 Start: 07-08-2022 Hemoglobin A1c/Hemoglobin.total in Blood HBA1C [facility] Start: 05-13-2022 Hemoglobin A1c/Hemoglobin.total in Blood HBA1C [facility] Start: 04-16-2022 ANNUAL PCP TEAM CHRONIC DISEASE VISIT ANNUAL PCP TEAM CHRONIC DISEASE VISIT [facility] Start: 03-24-2022 End: 05-24-2022 Hemoglobin A1c in Blood HGB A1C Lab Routine Controlled type 2 diabetes mellitus without complication, without long-term current use of insulin (HCC) Expected: 03/24/2022, Expires: 05/24/2022 [facility] Work Phone: Comment on above: Expected: 03/24/2022, Expires: 3 Start: 03-24-2022 End: 05-24-2022 Lipid 1996 panel - Serum or Plasma LIPID PANEL BASIC Lab Routine Controlled type 2 diabetes mellitus without complication, without long-term current use of insulin (HCC) Expected: 03/24/2022, Expires: 05/24/2022 [facility] Work Phone: Comment on above: Expected: 03/24/2022, Expires: 3 Start: 03-22-2022 ADVANCE DIRECTIVE DISCUSSION ADVANCE DIRECTIVE DISCUSSION [facility] Start: 03-22-2022 DEPRESSION ASSESSMENT DEPRESSION ASSESSMENT [facility] Start: 12-25-2021 Hepatitis B surface antibody level LDL CHOLESTEROL [facility] Start: 12-20-2021 Hemoglobin A1c/Hemoglobin.total in Blood HBA1C [facility] Start: 12-17-2021 COVID-19 VACCINE (6 - Booster for Pfizer series) COVID-19 VACCINE (6 - Booster for Pfizer series) [facility] Start: 11-20-2021 Influenza vaccination INFLUENZA (#1) [facility] Start: 11-11-2021 End: 01-11-2022 SCHEDULE LAB TESTING SCHEDULE LAB TESTING Lab Routine Expected: 11/11/2021, Expires: 01/11/2022 [facility] Work Phone: Comment on above: Expected: 11/11/2021, Expires: 2 Start: 10-16-2021 End: 12-16-2021 ALBUMIN/CREAT RATIO RND UR ALBUMIN/CREAT RATIO RND UR Lab Routine Steroid-induced hyperglycemia Expected: 10/16/2021, Expires: 12/16/2021 [facility] Work Phone: Comment on above: Expected: 10/16/2021, Expires: 2 Start: 10-16-2021 End: 12-16-2021 Hemoglobin A1c in Blood HGB A1C Lab Routine Steroid-induced hyperglycemia Expected: 10/16/2021, Expires: 12/16/2021 [facility] Work Phone: Comment on above: Expected: 10/16/2021, Expires: 2 Start: 10-14-2021 End: 12-14-2021 ALBUMIN/CREAT RATIO RND UR ALBUMIN/CREAT RATIO RND UR Lab Routine Type 2 diabetes mellitus without complication, unspecified whether fci insulin use (HCC) Expected: 10/14/2021, Expires: 12/14/2021 [facility] Work Phone: Comment on above: Expected: 10/14/2021, Expires: 2 Start: 10-14-2021 End: 12-14-2021 SCHEDULE LAB TESTING SCHEDULE LAB TESTING Lab Routine Expected: 10/14/2021, Expires: 12/14/2021 [facility] Work Phone: Comment on above: Expected: 10/14/2021, Expires: 2 Start: 09-23-2021 End: 11-23-2021 HEPATIC FUNCTION PNL HEPATIC FUNCTION PNL Lab Routine Autoimmune hepatitis (HCC) Expected: 09/23/2021, Expires: 11/23/2021 [facility] Work Phone: Comment on above: Expected: 09/23/2021, Expires: 2 Start: 09-23-2021 End: 11-23-2021 VITAMIN D 25 HYDROXY VITAMIN D 25 HYDROXY Lab Routine Autoimmune hepatitis (HCC) Hepatic sclerosis Expected: 09/23/2021, Expires: 11/23/2021 [facility] Work Phone: Comment on above: Expected: 09/23/2021, Expires: 2 Start: 09-07-2021 COVID-19 VACCINE (5 - Booster for Pfizer series) COVID-19 VACCINE (5 - Booster for Pfizer series) [facility] Start: 07-05-2021 Hepatitis B screening URINE ALBUMIN:CREATININE RATIO [facility] Start: 04-20-2021 Hemoglobin A1c/Hemoglobin.total in Blood HBA1C [facility] Start: 03-22-2021 ADVANCE DIRECTIVE DISCUSSION ADVANCE DIRECTIVE DISCUSSION [facility] Start: 03-22-2021 DEPRESSION ASSESSMENT DEPRESSION ASSESSMENT [facility] Start: 09-25-2016 PNEUMOCOCCAL: 65+ (3 - PCV) PNEUMOCOCCAL: 65+ (3 - PCV) [facility] Start: 03-22-2013 Medicare Annual Wellness Visit Medicare Annual Wellness Visit [facility] Start: 1993 COLOGUARD (FIT-DNA) COLOGUARD (FIT-DNA) [facility] Start: [address] COLONOGRAPHY [facility] Start: 1993 FECAL OCCULT BLOOD FECAL OCCULT BLOOD [facility] Start: 1993 Screening for malignant neoplasm of colon [facility] Start: 1993 SIGMOIDOSCOPY SIGMOIDOSCOPY [facility] Start: 1966 BP CONTROLLED (<130/80) BP CONTROLLED (<130/80) [facility] inic End: 10-13-2022 25-hydroxyvitamin D3 [Mass/volume] in Serum or Plasma VITAMIN D 25 HYDROXY Lab Routine Autoimmune hepatitis (HCC) Liver disease, unspecified Every 6 months for 4 Occurrences starting 10/13/2021 until 10/13/2022 [facility] Work Phone: Comment on above: Every 6 months for 4 Occurrences startin g 10/13/2021 until 10/13/2022 End: 10-13-2022 [id number] [Mass/volume] in Serum or Plasma ALPHA FETOPROTEIN BL Lab Routine Autoimmune hepatitis (HCC) Every 6 months for 3 Occurrences starting 10/13/2021 until 10/13/2022 [facility] Work Phone: Comment on above: Every 6 months for 3 Occurrences startin g 10/13/2021 until 10/13/2022 Bacteria identified in Urine by Culture BACTERIAL CULTURE, URINE Microbiology Routine Microscopic hematuria 04/14/2024 2:21 PM EST [facility] Work Phone: End: 10-30-2024 BD DXA TRABECULAR BONE SCORE (TBS) BD DXA TRABECULAR BONE SCORE (TBS) Radiology Routine Encounter for screening for osteoporosis Liver disease Autoimmune hepatitis (HCC) 1 Occurrences starting 10/01/2023 until 10/30/2024 [facility] Comment on above: 1 Occurrences starting 10/01/2023 until 10/30/2024 End: 10-13-2022 CBC panel - Blood by Automated count CBC Lab Routine Autoimmune hepatitis (HCC) Every 6 months for 3 Occurrences starting 10/13/2021 until 10/13/2022 [facility] Work Phone: Comment on above: Every 6 months for 3 Occurrences startin g 10/13/2021 until 10/13/2022 End: 04-12-2025 CBC panel - Blood by Automated count COMPLETE BLOOD COUNT Lab Routine Stage 3a chronic kidney disease (HCC) Every 3 months for 8 Occurrences starting 04/12/2024 until 04/12/2025 [facility] Comment on above: Every 3 months for 8 Occurrences startin g 04/12/2024 until 04/12/2025 End: 07-07-2024 CBC W Auto Differential panel - Blood COMPLETE BLOOD COUNT AND DIFFERENTIAL Lab Routine Iron deficiency anemia due to chronic blood loss Every 6 weeks for 12 Occurrences starting 07/08/2023 until 07/07/2024, 1 completed [facility] Work Phone: Comment on above: Every 6 weeks for 12 Occurrences startin g 07/08/2023 until 07/07/2024, 1 completed End: 07-12-2025 CBC W Auto Differential panel - Blood COMPLETE BLOOD COUNT AND DIFFERENTIAL Lab Routine Iron deficiency anemia due to chronic blood loss Thrombocytopenia Once per month for 12 Occurrences starting 07/12/2024 until 07/12/2025 [facility] Work Phone: Comment on above: Once per month for 12 Occurrences starti ng 07/12/2024 until 07/12/2025 End: 07-14-2025 CBC W Auto Differential panel - Blood COMPLETE BLOOD COUNT AND DIFFERENTIAL Lab Routine Thrombocytopenia Chronic ITP (idiopathic thrombocytopenia) (HCC) Once per week for 66 Occurrences starting 07/14/2024 until 07/14/2025, 1 completed [facility] Comment on above: Once per week for 66 Occurrences startin g 07/14/2024 until 07/14/2025, 1 completed End: 10-13-2025 CBC W Auto Differential panel - Blood COMPLETE BLOOD COUNT AND DIFFERENTIAL Lab Routine Iron deficiency anemia due to chronic blood loss Thrombocytopenia Every other week for 24 Occurrences starting 10/13/2024 until 10/13/2025 [facility] Work Phone: Comment on above: Every other week for 24 Occurrences star ting 10/13/2024 until 10/13/2025 End: 10-13-2022 Comprehensive metabolic 2000 panel - Serum or Plasma COMP METABOLIC PANEL Lab Routine Autoimmune hepatitis (HCC) Every 6 months for 3 Occurrences starting 10/13/2021 until 10/13/2022 [facility] Work Phone: Comment on above: Every 6 months for 3 Occurrences startin g 10/13/2021 until 10/13/2022 End: 07-12-2025 Comprehensive metabolic 2000 panel - Serum or Plasma COMPREHENSIVE METABOLIC PANEL Lab Routine Iron deficiency anemia due to chronic blood loss Thrombocytopenia Once per month for 12 Occurrences starting 07/12/2024 until 07/12/2025 [facility] Comment on above: Once per month for 12 Occurrences starti ng 07/12/2024 until 07/12/2025 COVID & INFLUENZA A/ B & RSV PCR, ROUTINE COVID & INFLUENZA A/B & RSV PCR, ROUTINE Microbiology Routine URI, acute 04/14/2024 2:48 PM EST [facility] End: 03-18-2024 Ct abdomen w/contrast material CT LIVER W IVCON Radiology Routine Liver lesion 1 Occurrences starting 02/17/2023 until 03/18/2024 [facility] Work Phone: Comment on above: 1 Occurrences starting 02/17/2023 until 03/18/2024 End: 11-02-2025 CT Cervical spine WO contrast CT CERVICAL SPINE WO IVCON Radiology Routine Spinal stenosis of cervical region 1 Occurrences starting 10/03/2024 until 11/02/2025 [facility] Work Phone: Comment on above: 1 Occurrences starting 10/03/2024 until 11/02/2025 End: 10-30-2024 CT Liver W contrast IV CT LIVER W IVCON Radiology Routine Liver disease 1 Occurrences starting 10/01/2023 until 10/30/2024 [facility] Comment on above: 1 Occurrences starting 10/01/2023 until 10/30/2024 End: 09-06-2025 CTA Abdominal vessels and Pelvis vessels W contrast IV CTA ABD/PEL W IVCON Radiology Routine Portal vein thrombosis 1 Occurrences starting 08/07/2024 until 09/06/2025 [facility] Work Phone: Comment on above: 1 Occurrences starting 08/07/2024 until 09/06/2025 End: 07-24-2022 Dup-scan artl lovely abdl/pel/scrot&/rpr orgn com US DOPPLER COMPLETE Radiology Routine Autoimmune hepatitis (HCC) 1 Occurrences starting 06/24/2021 until 07/24/2022 [facility] Work Phone: Comment on above: 1 Occurrences starting 06/24/2021 until 07/24/2022 End: 11-12-2022 Dup-scan artl lovely abdl/pel/scrot&/rpr orgn com US DOPPLER COMPLETE Radiology Routine Autoimmune hepatitis (HCC) 1 Occurrences starting 10/13/2021 until 11/12/2022 [facility] Work Phone: Comment on above: 1 Occurrences starting 10/13/2021 until 11/12/2022 End: 10-23-2023 Dup-scan artl lovely abdl/pel/scrot&/rpr orgn com US DOPPLER COMPLETE Radiology Routine Autoimmune hepatitis (HCC) 1 Occurrences starting 09/23/2022 until 10/23/2023 [facility] Work Phone: Comment on above: 1 Occurrences starting 09/23/2022 until 10/23/2023 End: 10-30-2024 DXA Skeletal system.axial Views for bone density DXA-AXIAL SKELETON Radiology Routine Encounter for screening for osteoporosis Liver disease Autoimmune hepatitis (HCC) Localized osteoporosis ([place]) 1 Occurrences starting 10/01/2023 until 10/30/2024 [facility] Comment on above: 1 Occurrences starting 10/01/2023 until 10/30/2024 End: 05-21-2023 ECG COMPLETE ECG COMPLETE ECG Routine HOCM (hypertrophic obstructive cardiomyopathy) (HCC) 1 Occurrences starting 05/20/2022 until 05/21/2023 [facility] Work Phone: Comment on above: 1 Occurrences starting 05/20/2022 until 05/21/2023 End: 07-08-2023 ECG COMPLETE ECG COMPLETE ECG Routine Hypertrophic obstructive cardiomyopathy (HOCM) (HCC) 1 Occurrences starting 07/07/2022 until 07/08/2023 [facility] Work Phone: Comment on above: 1 Occurrences starting 07/07/2022 until 07/08/2023 ECG COMPLETE ECG COMPLETE ECG 03/04/2023 9:57 AM EST [facility] End: 11-20-2022 Echocardiography ECHO Cardiology Routine Hypertrophic obstructive cardiomyopathy (HOCM) (HCC) S/P ICD (internal cardiac defibrillator) procedure 1 Occurrences starting 10/20/2021 until 11/20/2022 [facility] Work Phone: Comment on above: 1 Occurrences starting 10/20/2021 until 11/20/2022 End: 07-14-2023 Echocardiography ECHO Cardiology Routine Hypertrophic obstructive cardiomyopathy (HOCM) (HCC) 1 Occurrences starting 07/13/2022 until 07/14/2023 [facility] Work Phone: Comment on above: 1 Occurrences starting 07/13/2022 until 07/14/2023 End: 05-08-2025 Echocardiography ECHO Cardiology Routine Other hypertrophic cardiomyopathy (HCC) 1 Occurrences starting 05/08/2024 until 05/08/2025 [facility] Work Phone: Comment on above: 1 Occurrences starting 05/08/2024 until 05/08/2025 End: 07-07-2024 Ferritin [Mass/volume] in Serum or Plasma FERRITIN Lab Routine Iron deficiency anemia due to chronic blood loss Every 6 weeks for 12 Occurrences starting 07/08/2023 until 07/07/2024, 1 completed [facility] Comment on above: Every 6 weeks for 12 Occurrences startin g 07/08/2023 until 07/07/2024, 1 completed End: 07-12-2025 Ferritin [Mass/volume] in Serum or Plasma FERRITIN Lab Routine Iron deficiency anemia due to chronic blood loss Thrombocytopenia Once per month for 12 Occurrences starting 07/12/2024 until 07/12/2025, 1 completed [facility] Comment on above: Once per month for 12 Occurrences starti ng 07/12/2024 until 07/12/2025, 1 completed Gastrointestinal pathogens panel - Stool by MARILYN with probe detection [facility] End: 10-13-2022 IgG [Mass/volume] in Serum or Plasma IGG Lab Routine Autoimmune hepatitis (HCC) Every 6 months for 4 Occurrences starting 10/13/2021 until 10/13/2022 [facility] Work Phone: Comment on above: Every 6 months for 4 Occurrences startin g 10/13/2021 until 10/13/2022 End: 07-19-2024 IMMATURE PLATELET FRACTION IMMATURE PLATELET FRACTION Lab Routine Thrombocytopenia (HCC) Once per month for 12 Occurrences starting 07/20/2023 until 07/19/2024 [facility] Comment on above: Once per month for 12 Occurrences starti ng 07/20/2023 until 07/19/2024 End: 04-18-2025 Iron and Iron binding capacity panel - Serum or Plasma IRON AND TIBC Lab Routine Iron deficiency anemia due to chronic blood loss Every 6 weeks for 12 Occurrences starting 07/08/2023 until 07/07/2024, 1 completed [facility] Comment on above: Every 6 weeks for 12 Occurrences startin g 07/08/2023 until 07/07/2024, 1 completed End: 07-12-2025 Iron and Iron binding capacity panel - Serum or Plasma IRON AND TIBC Lab Routine Iron deficiency anemia due to chronic blood loss Thrombocytopenia Once per month for 12 Occurrences starting 07/12/2024 until 07/12/2025, 1 completed [facility] Comment on above: Once per month for 12 Occurrences starti ng 07/12/2024 until 07/12/2025, 1 completed Lactoferrin [Presenc e] in Stool by Immunoassay [facility] Liver ultrasound attenuation by transient elastography DDI VIBRATION CONTROLLED TRANSIENT ELASTOGRAPHY (VCTE) Endoscopy Routine Autoimmune hepatitis (HCC) Ordered: 06/15/2023 [facility] Work Phone: Comment on above: Ordered: 06/15/2023 End: 08-20-2022 Mri abdomen w/o & w/contrast material MRI LIVER WO/W IVCON Radiology Routine Liver lesion 1 Occurrences starting 07/21/2021 until 08/20/2022 [facility] Work Phone: Comment on above: 1 Occurrences starting 07/21/2021 until 08/20/2022 MYELOID NGS PANEL PERIPHERAL BLOOD MYELOID NGS PANEL PERIPHERAL BLOOD Lab Routine Thrombocytopenia 07/14/2024 3:53 PM EDT [facility] Njx dx/ther agt pvrt facet jt crv/thrc 1 level NJX DX/THER AGT PVRT FACET JT CRV/THRC 1 LEVEL Procedures Routine Cervical spondylosis 1 Occurrences starting 10/10/2024 [facility] Work Phone: Comment on above: 1 Occurrences starting 10/10/2024 Njx dx/ther agt pvrt facet jt crv/thrc 2nd level NJX DX/THER AGT PVRT FACET JT CRV/THRC 2ND LEVEL Procedures Routine Cervical spondylosis 1 Occurrences starting 10/10/2024 [facility] Comment on above: 1 Occurrences starting 10/10/2024 Ova and parasites identified in Unspecified specimen by Light microscopy [facility] Patient Education ED Muscle Spas m ED Neck Spasm, No Trauma [facility] Work Phone: Patient referral [facility] Work Phone: PHOTODYNAMIC THERAPY PHOTODYNAMI C THERAPY Procedures Routine AK (actinic keratosis) Ordered: 05/11/2023 [facility] Work Phone: Comment on above: Ordered: 05/11/2023 PROTEIN ELECTROPHORE SIS SERUM W/INTERP PROTEIN ELECTROPHORESIS SERUM W/INTERP Lab Routine MGUS (monoclonal gammopathy of unknown significance) 07/14/2024 3:53 PM EDT [facility] End: 04-12-2025 Protein/Creatinine [Mass Ratio] in Urine PROTEIN / CREATININE RATIO Lab Routine Stage 3a chronic kidney disease (HCC) Every 3 months for 8 Occurrences starting 04/12/2024 until 04/12/2025 [facility] Comment on above: Every 3 months for 8 Occurrences startin g 04/12/2024 until 04/12/2025 End: 10-13-2022 PT panel - Platelet poor plasma by Coagulation assay PROTHROMBIN TIME/PT Lab Routine Autoimmune hepatitis (HCC) Every 6 months for 3 Occurrences starting 10/13/2021 until 10/13/2022 [facility] Work Phone: Comment on above: Every 6 months for 3 Occurrences startin g 10/13/2021 until 10/13/2022 End: 04-12-2025 Renal function 2000 panel - Serum or Plasma RENAL FUNCTION PANEL Lab Routine Stage 3a chronic kidney disease (HCC) Every 3 months for 8 Occurrences starting 04/12/2024 until 04/12/2025 [facility] Comment on above: Every 3 months for 8 Occurrences startin g 04/12/2024 until 04/12/2025 SURGICAL PATHOLOGY S KIN ONLY [facility] Work Phone: Comment on above: Release Upon Ordering for 1 Occurrences starting 05/11/2023, 1 completed End: 04-12-2025 Urinalysis complete panel - Urine URINALYSIS, WITH MICROSCOPIC Lab Routine Stage 3a chronic kidney disease (HCC) Every 3 months for 8 Occurrences starting 04/12/2024 until 04/12/2025 [facility] Comment on above: Every 3 months for 8 Occurrences startin g 04/12/2024 until 04/12/2025 End: 07-24-2022 US ABD LIVER VASCULAR US ABD LIVER VASCULAR Radiology Routine Autoimmune hepatitis (HCC) 1 Occurrences starting 06/24/2021 until 07/24/2022 [facility] Work Phone: Comment on above: 1 Occurrences starting 06/24/2021 until 07/24/2022 End: 11-12-2022 US ABD LIVER VASCULAR US ABD LIVER VASCULAR Radiology Routine Autoimmune hepatitis (HCC) 1 Occurrences starting 10/13/2021 until 11/12/2022 [facility] Work Phone: Comment on above: 1 Occurrences starting 10/13/2021 until 11/12/2022 End: 10-23-2023 US ABD LIVER VASCULAR US ABD LIVER VASCULAR Radiology Routine Autoimmune hepatitis (HCC) 1 Occurrences starting 09/23/2022 until 10/23/2023 [facility] Work Phone: Comment on above: 1 Occurrences starting 09/23/2022 until 10/23/2023 End: 05-13-2025 US Kidney - bilateral and Urinary bladder US KIDNEY/BLADDER Radiology Routine Stage 3a chronic kidney disease (HCC) 1 Occurrences starting 04/12/2024 until 05/13/2025 [facility] Comment on above: 1 Occurrences starting 04/12/2024 until 05/13/2025 End: 07-14-2024 US.doppler Abdominal vessels US ABD LIVER VASCULAR Radiology Routine Iron deficiency anemia due to chronic blood loss 1 Occurrences starting 06/15/2023 until 07/14/2024 [facility] Work Phone: Comment on above: 1 Occurrences starting 06/15/2023 until 07/14/2024 End: 07-14-2024 US.doppler Unspecified body region US DOPPLER COMPLETE Radiology Routine Iron deficiency anemia due to chronic blood loss 1 Occurrences starting 06/15/2023 until 07/14/2024 [facility] Work Phone: Comment on above: 1 Occurrences starting 06/15/2023 until 07/14/2024 XR Knee - left 4 Views XR KNEE G ENERAL 4V AP BOTH/PA BOTH/LAT/MERC LEFT Radiology Routine Left knee pain, unspecified chronicity 02/14/2024 10:09 AM EST [facility] Work Phone: [facility] Immunizations Immunization Date Immunization Notes Care Provider [facility] 09-28-2024 tetanus toxoid, redu sherron diphtheria toxoid, and acellular pertussis vaccine, adsorbed Davis May MD Work Phone: [facility] 12-14-2023 Seasonal trivalent influenza vaccine, adjuvanted, preservative free Davis May MD Work Phone: [facility] 12-14-2023 influenza virus vaccine, unspecified formulation Josefa Ladd MD Work Phone: [facility] 01-26-2023 respiratory syncytia l virus (RSV) vaccine, adjuvanted (AREXVY) Nova Shahid MD Work Phone: [facility] 01-15-2023 influenza (HD-IIV4) vaccine, age 65+ yr, high dose, quadrivalent, PF (FLUZONE HIGH-DOSE) Nova Shahid MD Work Phone: [facility] 01-15-2023 influenza virus vaccine, unspecified formulation Evelin Reich APRN.CNP Work Phone: [facility] 10-18-2022 COVID-19 vaccine, ag e 12+ yr, bivalent (PFIZER-BIONTECH) Derrek Bear MD Work Phone: [facility] 03-23-2022 COVID-19 booster vaccine, age 12+ yr, bivalent (PFIZER-BIONTECH) Davis May MD Work Phone: [facility] 01-16-2022 influenza, high-dose , quadrivalent vaccine (FLUZONE HIGH DOSE QUADRIVALENT) Davis May MD Work Phone: [facility] 01-16-2022 influenza virus vaccine, unspecified formulation Davis May MD Work Phone: [facility] 11-04-2021 influenza (aIIV4) vaccine, age 65+ yr, quadrivalent, PF (FLUAD QUADRIVALENT) Davis May MD Work Phone: [facility] 10-22-2021 pneumococcal (PCV20) vaccine, 20 valent (PREVNAR 20) Davis May MD Work Phone: [facility] 11-18-2020 influenza virus vaccine, unspecified formulation Davis May MD Work Phone: [facility] 11-08-2020 COVID-19 vaccine, ag e 12+ yr (PFIZER-BIONTECH - PURPLE TOP) Nova Shahid MD Work Phone: [facility] 05-17-2020 COVID-19 vaccine, ag e 12+ yr (PFIZER-BIONTECH - PURPLE TOP) Nova Shahid MD Work Phone: [facility] 04-26-2020 COVID-19 vaccine, ag e 12+ yr (PFIZER-BIONTECH - PURPLE TOP) Nova Shahid MD Work Phone: [facility] 11-27-2019 influenza virus vaccine, unspecified formulation Nova Shahid MD Work Phone: [facility] 11-24-2019 influenza (HD-IIV4) vaccine, age 65+ yr, high dose, quadrivalent, PF (FLUZONE HIGH-DOSE) Davis May MD Work Phone: [facility] 11-24-2019 influenza, high dose seasonal, preservative-free Nova Shahid MD Work Phone: [facility] 08-29-2019 hepatitis B vaccine, adult dosage Nova Shahid MD Work Phone: [facility] Work Phone: 04-13-2019 typhoid vaccine, unspecified formulation Nova Shahid MD Work Phone: [facility] 03-28-2019 zoster vaccine recombinant Nova Shahid MD Work Phone: [facility] 01-19-2019 hepatitis B vaccine, adult dosage Nova Shahid MD Work Phone: [facility] Work Phone: 01-18-2019 zoster vaccine recombinant Nova Shahid MD Work Phone: [facility] 12-20-2018 Hepatitis B vaccine (recombinant), CpG adjuvanted Nova Shahid MD Work Phone: [facility] 11-08-2018 Seasonal trivalent influenza vaccine, adjuvanted, preservative free Nova Shahid MD Work Phone: [facility] 12-02-2017 influenza, high dose seasonal, preservative-free Nova Shahid MD Work Phone: [facility] 12-14-2016 influenza, high dose seasonal, preservative-free Nova Shahid MD Work Phone: [facility] 09-26-2015 pneumococcal conjuga te vaccine, 13 valent Nova Shahid MD Work Phone: [facility] 09-26-2015 pneumococcal polysaccharide vaccine, [address] (I-Stat) Work Phone: [facility] 09-07-2014 tetanus toxoid, redu sherron diphtheria toxoid, and acellular pertussis vaccine, adsorbed Nova Shahid MD Work Phone: [facility] 09-05-2013 pneumococcal polysaccharide vaccine, 23 danieleent Nova Shahid MD Work Phone: [facility] Payers Date Payer Category Payer Self-pay [id number] 2017 Private Health Insurance [facility] AARP SUPPLEMENT [id number] 2017-Present [phone] [address] [place] [address] Indemnity [id number] 2017 Private Health Insurance [id number] 2017 Unknown [id number] 2013 Medicare MEDICARE MEDICAR E A AND B [id number] 2013-Present [phone] [address] [address] [place] [address] Medicare [id number] 2013 Medicare [id number] 2013 Medicare [id number] Medicare [id number] Unknown [id number] Unknown [id number] Unknown [id number] Unknown [id number] Unknown [id number] Social History Date Type Detail Facility Start: 09-05-2019 End: 03-24-2023 Tobacco smoking status NHIS Ex-smoker [facility] End: 07-06-2019 History of tobacco use Current smoker [facility] End: 07-06-2019 History of tobacco use Cigar Smoker [facility] Start: 09-05-2019 End: 03-24-2023 Tobacco use and exposure Smokeless tobacco non-user [facility] Start: 04-16-2021 End: 10-03-2024 Alcohol intake Ex-drinker (finding) [facility] Start: 04-16-2021 End: 08-07-2022 Alcohol intake [facility] Start: 04-11-2020 History SDOH Alcohol Frequency 2 [facility] Start: 04-11-2020 History SDOH Alcohol Std Drinks 1 [facility] Start: 04-11-2020 History SDOH Social Connections Phone 5 [facility] Start: 04-11-2020 History SDOH Social Connections Meetings 3 [facility] Start: 04-11-2020 History SDOH Physical Activity DPW 4 [facility] Start: 04-11-2020 Education 17 [facility] Start: 07-14-2017 End: 12-22-2021 Tobacco Comment 07/14/17: occasional cigar + 2 cigarettes per week [facility] Start: 1950 Sex Assigned At Male [facility] Start: 04-22-2021 End: 12-22-2021 Exposure to SARS-CoV-2 (event) Not sure [facility] Start: 06-14-2021 End: 07-28-2021 Exposure to SARS-CoV-2 (event) Unable to assess [facility] Start: 04-11-2020 End: 08-07-2022 Social connection and isolation panel [facility] Do you belong to any clubs or organizations such as sabianist groups, unions, fraternal or athletic groups, or school groups? Yes [facility] Are you now , , , , never or living with a partner? [facility] How often to you hav e a drink containing alcohol? Monthly or less [facility] How many standard dr inks containing alcohol do you have on a typical day? 1 or 2 [facility] How often do you hav e 6 or more drinks on 1 occasion? Never [facility] Start: 02-26-2017 How hard is it for you to pay for the very basics like food, housing, medical care, and heating Not hard at all [facility] Do you feel stress - tense, restless, nervous, or anxious, or unable to sleep at night because your mind is troubled all the time - these days [OSQ] Only a little [facility] (I/We) worried edwige er (my/our) food would run out before (I/we) got money to buy more. Never true [facility] In the past 12 month s, was there a time when you were not able to pay the mortgage or rent on time? No [facility] Start: 08-19-2018 Gender identity Identifies as male gender (finding) [facility] Start: 08-19-2018 Sexual orientation Heterosexual (finding) [facility] Start: 03-26-2023 End: 03-27-2023 Tobacco smoking status DEIS Unknown if ever smoked [facility] Start: 08-20-2019 Cigars [facility] Medical Equipment Procedure Code Equipment Code Equipment Origin al Text Equipment Identifier Dates EGD, with monitored anesthesia care HEMOSPRAY FDA Start: 03-27-2023 EGD, with monitored anesthesia care SUPER 7 SPEEDBAND/ LIGATOR FDA Start: 03-27-2023 EGD, with monitored anesthesia care SUPER 7 SPEEDBAND/ LIGATOR FDA Start: 03-27-2023 EGD, with monitored anesthesia care HEMOSPRAY FDA Start: 03-27-2023 EGD, with monitored anesthesia care SUPER 7 SPEEDBAND/ LIGATOR FDA Start: 03-27-2023 EGD, with monitored anesthesia care SUPER 7 SPEEDBAND/ LIGATOR FDA Start: 03-27-2023 EGD, with monitored anesthesia care HEMOSPRAY FDA Start: 03-27-2023 EGD, with monitored anesthesia care SUPER 7 SPEEDBAND/ LIGATOR FDA Start: 03-27-2023 EGD, with monitored anesthesia care SUPER 7 SPEEDBAND/ LIGATOR FDA Start: 03-27-2023 [place] 4.5mm Peek 28mm Suture Self Punch Sterile Disposable - [id number] Start: 06-02-2017 Post Hemicap 12m m Ovoid 32mm Taper Sterile Latex Free Shoulder - [id number] Start: 06-02-2017 Hemicap Resurfac ing System Articular 19mm X 20mm Head Size 52-44mm [id number] Start: 06-02-2017 Component Hemicapovo Ovoid Offset Cocr Titanium [id number] Humeral Cannulated - [id number] Start: 06-02-2017 USE WITH INSULIN PENS 1 TIME(S) DAILY [id number] Start: 03-24-2023 Comment on above: USE WITH INSULIN PEN S 1 TIME(S) DAILY [id number] Energen [id number] Start: 08-16-2012 [id number] Endo elodia [place] 4-Site G [id number]_[facility] Start: 08-16-2012 [id number] Dext juan r [id number]_[facility] Start: 08-16-2012 Goals Date Patient Goal Desired Activity /State Personal health goal Personal health goal Functional Status Date Assessment Result Facility 03-31-2024 Are you deaf, or do you have serious difficulty hearing No 03/31/2024 11:32 AM Annette Brownlee RN [facility] 03-31-2024 Are you blind, or do you have serious difficulty seeing, even when wearing glasses No 03/31/2024 11:32 AM Annette Brownlee RN [facility] 03-31-2024 Do you have serious difficulty walking or climbing stairs No 03/31/2024 11:32 AM Annette Brownlee RN No [facility] 03-31-2024 Do you have difficul ty dressing or bathing No 03/31/2024 11:32 AM Annette Brownlee RN [facility] 03-31-2024 Because of a physica l, mental, or emotional condition, do you have difficulty doing errands alone such as visiting a physician's office or shopping No 03/31/2024 11:32 AM Annette Brownlee RN [facility] 03-29-2023 Functional status Activity Abili ty Independent [facility] Work Phone: 03-29-2023 Functional status Ambulates;Up ad neymar [facility] Work Phone: Mental Status Date Assessment Result Facility 08-06-2024 Cognitive function Level Of Cons ciousness Awake;Alert;Appropriate;Fol lows Commands [facility] Work Phone: 03-31-2024 Because of a physica l, mental, or emotional condition, do you have serious difficulty concentrating, remembering, or making decisions No 03/31/2024 11:32 AM Annette Brownlee, ADRIENNE No [facility] 03-29-2023 Cognitive function Touch/Shaking [facility] Work Phone: Clinical Notes 07-02-2020 to 11-21-2024 Telephone Encounter - Elly Quintero, Research Coordinator - 11/21/2024 2:37 PM EDTTelephone Encounter - Elly Quintero Research Coordinator - 11/21/2024 2:37 PM EDTPatient Instructions Note Date & Type Note Facility 11-21-2024 Telephone encounter Note I contacted the patient regarding study [id number] for visit number 4. First we went over his medications, then I asked about adverse events, vitals, and participant status. When asked about symptoms he says he feels some mild abdominal swelling and has back pain. Then we completed [id number] and informed the patient that he has to get some labs done in the next few weeks. We also agreed for his next in person visit to be on 01/30/2025 at 11 AM. Elly Quintero, Research Coordinator [facility] 11-21-2024 Miscellaneous Notes I contacted the patient regarding study IRB#[id number] for visit number 4. First we went over his medications, then I asked about adverse events, vitals, and participant status. When asked about symptoms he says he feels some mild abdominal swelling and has back pain. Then we completed TLFB30 and informed the patient that he has to get some labs done in the next few weeks. We also agreed for his next in person visit to be on 01/30/2025 at 11 AM. Elly Quintero, Research Coordinator documented in this encounter [facility] 11-13-2024 History of Present illness Narrative Images from the original note were not included. [facility] [place] Forrest Zaragoza Department of Cardiovascular Medicine SECTION OF VASCULAR MEDICINE OUTPATIENT VISIT DATE November 13, 2024 OUTPATIENT VISIT TYPE ESTABLISHED Follow up regarding: PVT last seen 08/07/24 Allergies: is allergic to percocet [oxycodone-acetaminophen], vicodin [hydrocodone-acetaminophen], hibiscus (hibiscus sabdariffa), valsartan, and lidocaine. Medications: Current Outpatient Medications Medication Sig avatrombopag (DOPTELET) 20 mg tablets Take 1 tablet by mouth once daily. mycophenolate Mofetil (CELLCEPT) 500 mg tablet Take 1 tablet by mouth twice daily glipiZIDE (GLUCOTROL XL) 5 mg 24 hr tablet Take 1 tablet by mouth once daily. cyclobenzaprine (FLEXERIL) 10 mg tablet Take 1 tablet by mouth three times a day as needed. avatrombopag (DOPTELET, 30 TAB PACK,) 20 mg tablets Take 1 tablet (20mg) by mouth every Wednesday, Wednesday, and Wednesday. Blood-Glucose Sensor (DEXCOM G7 SENSOR) wilmer CHANGE SENSOR EVERY 10 days. USE FOR CONTINOUS GLUCOSE MONITORING. INSULIN USE. E11.9 insulin degludec (TRESIBA FLEXTOUCH U-100) 100 unit/mL (3 mL) injection pen Inject 5 units once daily pantoprazole DR (PROTONIX) 40 mg tablet Take 1 tablet by mouth two times a day. carvedilol (COREG) 12.5 mg tablet Take 1 tablet by mouth two times a day with meals. cloNIDine HCl (CATAPRES) 0.1 mg tablet Take 1 tablet by mouth three times a day. amLODIPine (NORVASC) 5 mg tablet Take 1 tablet by mouth once daily. Fluorouracil (EFUDEX) 5 % cream Apply thin coat twice daily (morning and evening) for 2-4 weeks to affected area(s) on FACE until rash develops (red, raw, and potentially scale or scab). Do not rinse.Try to apply for AT LEAST 2 weeks. Once rash becomes very vigorous, can stop/discontinue treatment. Do not allow animals to lick medication. Wash hands after applying apixaban (ELIQUIS) 5 mg tab(s) Take 1 tablet by mouth two times a day. tacrolimus IR (PROGRAF) 1 mg capsule Take 1 capsule by mouth two times a day. OTC NUTRITIONAL SUPPLEMENT Take by mouth as directed. cholecalciferol, vitamin D3, (VITAMIN D3 ORAL) Take 1 tablet by mouth three times a week. Lactobacill 46-B.animal-inulin (PROBIOTIC-10, WITH INULIN,) 10 billion cell -100 mg cap Take 1 tablet by mouth once daily. Insulin [place], Disposable, (BD ULTRAFINE III MINI PEN) 31 gauge x 3/16 USE WITH INSULIN PENS 1 TIME(S) DAILY Amoxicillin 500 mg tablet 2000 mg by mouth 1-2 hours prior to dental procedures No current facility-administered medications for this visit. HPI He remains on apixaban 5mg BID denies any bleeding complications related to apixaban: no epistaxis, gingival hemorrhage, hematemesis, BRBPR, hematochezia, melena, hematuria, hemarthrosis, spontaneous soft tissue hematomas. Also denies easy bruising, headache, abdominal pain, back pain, groin pain. denies symptoms chest pain, exertional or resting dyspnea, Orthopnea, PND, cough, hemoptysis, near-syncope, syncope, palpitations, dizziness, LH. moderate thrombocytopenia stable he is scheduled to have spinal block in the cervical spine early next month - told to hold eliquis for 2 days. Objective: BP w/Orthostatic Vitals Date and Time Orthostatic BP Orthostatic Pulse BP Pulse BP Position BP Site BP Cuff Size 11/13/24 1106 -- -- 132/77 58 -- -- -- Peak Flow Date and Time PF Resp 11/13/24 1106 -- 16 General: Alert and oriented, in no acute distress, pleasant mood. Skin: No ulcerations, No rashes. HEENT: sclera anicteric. Cardiovascular: Heart has a regular rate and rhythm Musculoskeletal: No cyanosis Peripheral vascular: Radial pulses 2+/2 Lower extremities: no edema Labs Latest Ref Rng 10/13/2024 10/26/2024 11/06/2024 WBC 3.70 - 11.00 k/uL 4.77 4.78 4.53 RBC 4.20 - 6.00 m/uL 4.15 (L) 4.14 (L) 4.31 Hemoglobin 13.0 - 17.0 g/dL 13.1 13.2 13.5 Hematocrit 39.0 - 51.0 % 37.7 (L) 37.9 (L) 39.6 MCV 80.0 - 100.0 fL 90.8 91.5 91.9 MCH 26.0 - 34.0 pg 31.6 31.9 31.3 MCHC 30.5 - 36.0 g/dL 34.7 34.8 34.1 RDW-CV 11.5 - 15.0 % 14.1 14.1 13.8 Platelet Count 150 - 400 k/uL 79 (L) 97 (L) 72 (L) MPV 9.0 - 12.7 fL 12.1 12.5 12.1 Neut% % 73.1 67.8 69.1 Abs Neut (ANC) 1.45 - 7.50 k/uL 3.49 3.24 3.13 Lymph% % 16.8 19.7 20.3 Abs Lymph 1.00 - 4.00 k/uL 0.80 (L) 0.94 (L) 0.92 (L) [place]% % 7.8 9.8 8.4 Abs [place] <0.87 k/uL 0.37 0.47 0.38 Eosin% % 1.7 2.5 1.8 Abs Eosin <0.46 k/uL 0.08 0.12 0.08 Baso% % 0.4 0.2 0.2 Abs Baso <0.11 k/uL <0.03 <0.03 <0.03 Immature Gran % % 0.2 0.0 0.2 IMMATURE GRANS (ABS) <0.10 k/uL <0.03 <0.03 <0.03 NRBC /100 WBC 0.0 0.0 0.0 Absolute nRBC <0.01 k/uL <0.01 <0.01 <0.01 DTYPE Auto Auto Auto Protein, Total 6.3 - 8.0 g/dL 7.5 Albumin 3.9 - 4.9 g/dL 4.2 Calcium 8.5 - 10.2 mg/dL 9.0 Bilirubin, Total 0.2 - 1.3 mg/dL 0.7 Alkaline Phosphatase 38 - 113 U/L 187 (H) AST 14 - 40 U/L 43 (H) ALT 10 - 54 U/L 30 Glucose 74 - 99 mg/dL 118 (H) BUN 9 - 24 mg/dL 24 Creatinine 0.73 - 1.22 mg/dL 1.11 Sodium 136 - 144 mmol/L 135 (L) Potassium 3.7 - 5.1 mmol/L 4.3 Chloride 98 - 107 mmol/L 102 CO2 22 - 30 mmol/L 22 Anion Gap 8 - 15 mmol/L 11 eGFR >=60 mL/min/1.73m 69 Iron 41 - 186 ug/dL 53 TIBC 232 - 386 ug/dL 268 Transferrin Saturation 15.0 - 57.0 % 19.8 Hemoglobin A1C 4.3 - 5.6 % 7.5 (H) Estimated Average Glucose mg/dL 169 Ferritin 30.3 - 565.7 ng/mL 62.7 Legend: (L) Low (H) High Latest Ref Rng 03/31/2024 09/01/2024 PT Sec <13.1 sec 14.5 (H) 14.2 (H) PT INR 0.9 - 1.3 1.4 (H) 1.4 (H) Legend: (H) High Imaging 11/07/24- CTA A/P FINDINGS: Previously seen large portal vein thrombus significantly decreased in size with now an eccentric slither of thrombus in the main portal vein extending into the bifurcation of the right and left intrahepatic portal veins. Patent splenic vein. Organized eccentric thrombus in the SMV, significantly decreased in cooperative and compared to prior exam. Opacified Peripheral portal mesenteric veins are patent. Nonvascular findings: Lung bases are clear. No focal or lobar consolidation. No pleural effusion. Cirrhotic liver with trace perihepatic fluid. Granulomatous changes. Hepatic veins are patent. No intrahepatic biliary dilatation. Gallbladder nondistended. Splenomegaly with granulomatous changes. Partially fatty replaced pancreas. LEFT adrenal gland with a 9 mm nodule. Right adrenal gland is unremarkable. Symmetrically perfused kidneys without obstructing renal stones. Multiple renal cysts. No hydronephrosis or hydroureters. Urinary bladder partially filled No dilated loops of small bowel or bowel wall thickening. Normal appendix. Colonic diverticulosis most significant in the sigmoid. Degenerative changes in the thoracolumbar spine. IMPRESSION: Significant interval decrease in the portal vein thrombus with residual slither of eccentric thrombus in the main portal vein extending into the bifurcation of the right and left intrahepatic portal veins. Significant interval improvement in the SMV thrombus with residual eccentric thrombus. 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 _ Today - Child [place]qu[place]: A _ His platelet count has been stable between 50,000 and 100,000. _ Denies any bleeding or bruising. => His indication for anticoag Rx will be long-term given liver cirrhosis _ We might consider dose attenuation of apixaban next year, but I d/w patient and his that there are no data on attenuated dose DOAC for splanchnic vein thrombosis associated with cirrhosis (only LE-DVT and PE) Plan: - Continue apixaban 5mg twice-daily Follow-up with me in one year or as needed I personally spent 30 minutes in total time involved in the management and care of this patient. JOSE LANDRY M.D. documented in this encounter [facility] 11-10-2024 Telephone encounter Note Eliquis was refilled to [facility] on 04/24/24 for a year supply. Pt notified via [employer] [place] to check with pharmacy. Roselia Heath MA [facility] 11-10-2024 Miscellaneous Notes Eliquis was refilled to [facility] on 04/24/24 for a year supply. Pt notified via [employer] [place] to check with pharmacy. Roselia Heath MA documented in this encounter [facility] 11-07-2024 History of Present illness Narrative Radiology Service Progress Note DATE OF SERVICE: November 07, 2024 TIME: 10:53 AM PATIENT WEIGHT: 183LBS PATIENT IDENTITY VERIFICATION COMPLETED USING TWO (2) STANDARD IDENTIFIERS: Name and Date of confirmed by patient verbally. FALL SCREENING: Has the patient had 2 falls in the last year or 1 fall with injury or currently using an Ambulatory Assistive Device (Walker, Cane, Wheelchair, Crutches, etc.)? No PATIENT GENDER DATA: Assigned male at ALLERGIES: Reviewed and unchanged CONTRAST ALLERGY: No EXAM: CT -CONTRAST INDUCED NEPHROPATHY RISK FACTORS: Patient age > 60 years, Diabetic: Yes. Current medication(s): glipizide. Patient currently has insulin pump?: No., Known Chronic Kidney Disease (CKD), and History of Kidney surgery, Kidney neoplasm, Liver disease, and/or any recent Nephrotoxic Chemotherapy or other Nephrotoxic medications CREATININE: Creatinine Date Value Ref Range Status 11/06/2024 1.11 0.73 - 1.22 mg/dL Final 10/05/2024 1.22 0.73 - 1.22 mg/dL Final 09/26/2024 1.11 0.73 - 1.22 mg/dL Final Estimated Glomerular Filtration Rate Date Value Ref Range Status 11/06/2024 69 >=60 mL/min/1.73m Final Comment: Estimated Glomerular Filtration [...] Range Status 12/25/2020 >60 Final P.O.C.T. RESULTS: POC done: Yes, See Lab Tab November 07, 2024 TREATMENT: N/A IV SITE: Ambulatory: A peripheral IV was started in the Right forearm with a Angio cath: 18 gauge. IV SITE APPEARANCE: Clean,Dry and Intact SIGNATURE: Ernesto Friedman RN PATIENT NAME: Mateus Yi DATE: November 07, 2024 TIME: 10:53 AM Radiology Service Progress Note PATIENT NAME: Mateus Yi DATE OF SERVICE: November 07, 2024 TIME: 11:16 AM PATIENT IDENTITY VERIFICATION COMPLETED USING TWO (2) IDENTIFIERS: Name and Date of confirmed by patient verbally. FALL SCREENING: Has the patient had 2 falls in the last year or 1 fall with injury or currently using an Ambulatory Assistive Device (Walker, Cane, Wheelchair, Crutches, etc.)? No PATIENT GENDER DATA: Assigned male at PATIENT RELEVANT IMPLANT DATA REVIEWED: Yes PATIENT PRESENTS WITH AN IMPLANTABLE OR ATTACHED CUFF SETTER: No RADIOLOGY DEPARTMENT: CT; Exam(s) Completed: CTA Abdomen Pelvis PERIPHERAL IV DATA: Site assessment: Clean,Dry and Intact, Site disposition Discontinued SIGNED BY: Rebeca Locke RT(R) November 07, 2024 11:16 AM documented in this encounter [facility] 11-03-2024 Telephone encounter Note Duplicate encounter. Closing encounter. [facility] 11-03-2024 Miscellaneous Notes Duplicate encounter. Closing encounter. documented in this encounter [facility] 11-02-2024 Telephone encounter Note Procedure: Right C3, C4, C5 Cervical Facet Procedure Date: 11/28/2024 Cardiac Clearance: Eliquis Cardiac Clearance letter generated and faxed to patient's PCP for approval to proceed with injection procedure and hold anticoagulation for recommending time frame. Fax confirmation received. Awaiting determination. [facility] 11-02-2024 Miscellaneous Notes Procedure: Right C3, C4, C5 Cervical Facet Procedure Date: 11/28/2024 Cardiac Clearance: Eliquis Cardiac Clearance letter generated and faxed to patient's PCP for approval to proceed with injection procedure and hold anticoagulation for recommending time frame. Fax confirmation received. Awaiting determination. documented in this encounter [facility] 11-02-2024 History of Present illness Narrative Subjective ///// [facility] follow up appointment. Since the last visit, Mateus Yi states the pain has been constant. Current pain intensity is 4 on a scale of 0-10. Pain located in Neck area and does not radiate. Pain described as shooting, stabbing, and throbbing Symptoms interfere with work, walking, sleeping, sitting, driving, and household cleaning. Pain is exacerbated by sitting, standing, getting up from sitting, lying down, and walking. Pain is mitigated by heat. The medications are ineffective. The patient states the last dose of . Flexeril. PAIN EVALUATION 11/02/2024 1319 Pain Level: 4 Pain Location: Neck Description: Sharp;Stabbing Duration Amount of Time: 3 Duration Units: Months Frequency: Continuous Intervention/Comfort measure: Massage;Heat;Cold Patient Entered Questionnaires PROMIS Score Percentiles 07/01/2020 10/07/2020 05/24/2022 PROMIS Global Health Scale Physical Health Percentile 41 22* 31 Mental Health Percentile 73 19* 73 Percentiles provide an indication of how the patient's score ranks in relation to the general population. Higher percentile rankings indicate better function/quality of life. 50th percentile is the average of the general population and indicates half of respondents had a worse score. > 31st percentile is within normal limits or better * < 31st percentile is at least SD worse than population, which may be clinically relevant < 16th percentile is at least 1 SD worse than population and warrants attention Review of Systems Constitutional: (-) Weight Gain (-) Weight Loss (-) Fatigue Cardiovascular: (-) hx heart surgery (+) Pacemaker Respiratory: (+) Shortness of Breath (+) Cough (-) Snoring Gastrointestinal: (+) Incontinence (+) Diarrhea (+) Constipation (-) Nausea/Vomiting Endocrine: (-) Thyroid Disorder (+) Diabetes Hematologic: (-) Prolonged Bleeding (-) Easy Bruising Genitourinary: (+) Incontinence (-) Frequency (+) Urinary Urgency Skin: (-) Open sores/wound Neurologic: (+) Headache (-) Double Vision Psychiatric: (-) Depression (-) Anxiety (-) Personal History of Alcohol or Substance Abuse (+) Family History of Alcohol or Substance Abuse ///// Chief Complaint Patient presents with: Neck Pain Follow Up Physical Examination Pulse 57 Wt 183 lb 6.8 oz (83.2kg) SpO2 95% General:well appearing and alert Skin: Skin color, texture, turgor normal, no rashes or lesions HEENT: normal Cardiovascular: Regular, rate and rhythm Lungs: Normal respiratory rate and rhythm, unlabored on room air Musculoskeletal: Neck: Tenderness over the cervical spine, Tenderness over the right cervical facets, pos facet loading Extremities: Normal exam of the extremities Neurological: Mental Status: alert Gait: Antalgic. Trigger points: paravertebral cervical muscles. Assessment Assessment : Mateus Yi is a 74-year-old male presenting to schedule a right C3-4, C4-5 facet joint injection to address right-sided neck pain. Mateus reports persistent right-sided neck pain, which does not radiate down the arm or into the fingers. He has previously undergone physical therapy and continues to exercise, which has helped to keep the pain localized. He is unable to take NSAIDs due to eliquis and notes that the only pain medication he can tolerate is morphine. 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 He also manages diabetes and monitors his blood sugar levels regularly. Pre op pain 09/28 Images from 09/2024 ct and 07/2024 xr Cannot take Nsaids d/t to blood thinner Does HEP daily Medical Indications: Spinal LEVELS to be treated (no more than 2 facet joints bilateral): I reviewed the following criteria and confirmed the patient met all checked requirements Facet joint interventions are considered medically reasonable and necessary for the diagnosis and treatment of chronic pain in this patient because they meet ALL of the following criteria: (all MUST be present) Moderate to severe chronic neck or low back pain, predominantly axial, that causes functional deficit measured on a pain OR a disability scale Pain persists despite 3 months of noninvasive conservative therapy (as tolerated and the details of this conservative therapy are documented elsewhere) Conservative therapy includes medications and is documented Absence of untreated radiculopathy or neurogenic claudication (except if caused by synovial cyst) There is no non-facet pathology by clinical assessment or radiology study that could explain the source of pain such as fracture, tumor, infection, or deformity Imaging is current within 12 months Disability Assessment: Intervention: This is the first diagnostic facet joint procedure at these spinal levels and: The primary purpose is to confirm a clinical suspicion of facet syndrome. The intent is that if this is successful, a radiofrequency ablation procedure would be the primary treatment goal at the diagnosed levels. There have been no more than 4 diagnostic joint sessions per rolling 12 months per spinal region. Encounter Diagnosis ICD-10-CM 1. Cervical spondylosis M47.812 2. Cervical facet joint syndrome M47.812 05/24/2022 PROMIS CAT Pain Interference PROMIS Adult Short Form-Global Health Score (Mental) 56 (Excellent) PROMIS-10 Global Health In general, would you say your health is:: (!) Poor In general, would you say your quality of life is:: Very good In general, how would you rate your physical health?: (!) Poor In general, how would you rate your mental health, including your mood and your ability to think?: Very good In general, how would you rate your satisfaction with your social activities and relationships?: Very good In general, please rate how well you carry out your usual social activities and roles. (This includes activities at home, at work and in your community, and responsibilities as a parent, child, spouse, employee, friend, etc.): Very good To what extent are you able to carry out your everyday physical activities such as walking, climbing stairs, carrying groceries, or moving a chair?: (!) Mostly In the past 7 days, how often have you been bothered by emotional problems such as feeling anxious, depressed or irritable?: (!) Always In the past 7 days, how would you rate your fatigue on average?: (!) Severe In the past 7 days, how would you rate your pain on average?: (!) 6 PROMIS-10 physical raw score: 10 Global Physical Health Raw Score: 10 PROMIS-10 physical T score: 34.9 Global Physical Health T Score: 34.9 PROMIS-10 Physical Health Percentile: 7 Global Physical Health Percentile: 7 PROMIS-10 mental raw score: 13 Global Mental Health Raw Score: 13 PROMIS-10 mental T score: 45.8 Global Mental Health T Score: 45.8 PROMIS-10 Mental Health Percentile: 34 Global Mental Health Percentile: 34 PROMIS-10 pain score: 3 0-10 Standard Pain Scale: 3 (11/02/24 1330 : Anjali Fong APRN.CNP) OARRS Report: Not Reviewed: not applicable Plan Injection history was reviewed. Medication use and compliance were reviewed. 1. Reviewed procedure instructions. Handout given 2. No meds prescribed today 3. Interventional procedure options discussed. Ordered and scheduled right C3.4.5 cervical facet #1 on 11/28 4. Continue regular home exercise program. 5) F/U in 2 weeks after the procedure. May be virtual The level of medical decision making for this encounter was low level. I spent a total of 25 minutes on the date of the service which included preparing to see the patient, [id number] patient care, completing clinical documentation, performing a medically appropriate examination, ordering medications, tests, or procedures, and care coordination (not separately reported). 1. This document has been created with the use of voice recognition technology. It may contain inaccuracies: (e.g. misspellings, inaccurate syntax or word sense) that have escaped review. 2. The physician, nursing staff and medical assistants are a major part of YOUR TREATMENT TEAM and will be handling your phone calls and inquiries, if any. Unless explicitly told otherwise at the time of your office visit, your study results and ensuing treatment plans will be discussed during your follow-up appointment. If you do not have a follow-up appointment and wish to discuss any issues, please set up an appointment. 3. It is my practice to not fill disability or any other insurance-related forms/documentation. All of the office notes, study results, and other pertinent documentation generated as part of your evaluation will be available to you and to your Primary Care Physician (PCP). Use of this material to complete such forms will be at the discretion of your PCP/referring physician. The above plan and management options were discussed at length with patient. Patient is in agreement with the above and verbalized understanding. Anjali Fong APRN, CNP November 02, 2024 documented in this encounter [facility] 10-13-2024 History of Present illness Narrative Additional intake questions: Has the patient had fever, nausea, vomiting, diarrhea, constipation, fatigue for > 1 week? Yes, fatigue Does the patient have a decreased appetite? No Does patient want to see a Shake Feeder? No (yes to any of above refer patient to schedulers for dietitian appointment) ) Does patient have any new or increased numbness or tingling of extremities? No Is patient interested in fertility information? No Does patient need any prescription refills? No Does patient have an advanced directive in place? yes Images from the original note were not included. Hematologic Oncology and Blood Disorders PATIENT NAME: Mateus Yi DATE OF : 1950 ATTENDING STAFF: Fransisca Ortiz DO DATE OF SERVICE: July 15, 2023 REASON FOR VISIT: Scheduled follow up for Iron Deficiency, Chronic ITP INTERVAL HISTORY: Mateus returns for scheduled follow up. He is doing well overall. Since our last follow up on July 14, 2024 he began Doptelet on Wed-Wed-Wed as his platelet had dropped below 60K. His platelet have since ranged from 70-90K. 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 He report no issues with bleeding since starting on Eliquis. HISTORY OF PRESENT ILLNESS: This patient was seen initially as a self referral to hematology for consultation regarding iron deficiency anemia and thrombocytopenia. History was obtained from the patient and from review of the patient s old medical records. 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 He is currently treated with tacrolimus and cellcept for the autoimmune hepatitis. He was diagnosed with autoimmune hepatitis in 2019 and treated with high dose steroids at that time. He was admitted at [facility] 03/27/23 with upper GI bleed and had an EGD with esophageal variceal bleeding that was banded. REVIEW OF SYSTEMS: Review of Systems Constitutional: Positive for fatigue. Negative for appetite change. HENT: Negative for trouble swallowing. Respiratory: Positive for shortness of breath (with exertion). Gastrointestinal: Negative for blood in stool. Musculoskeletal: Positive for arthralgias and back pain. Skin: Negative for rash. Neurological: Positive for numbness. Psychiatric/Behavioral: Negative for confusion and depression. The patient is not nervous/anxious. The remainder of the review of systems is negative. ALLERGIES: ALLERGIES Allergen Reactions Percocet [Oxycodone* Other: See Comments Pt states he doesn't have an allergy to percocet, but because of his reaction to Vicodin, he avoids it. Vicodin [Hydrocodon* Anaphylaxis stopped breathing Hibiscus (Hibiscus * Hives, Shortness of Breath Valsartan Myalgia Cramps in legs, muscle pain Lidocaine Other: See Comments Dizziness, profuse sweating with application of topical lidocaine patch to abdomen; symptoms resolved with removal of patch. MEDICATIONS: Medications were reviewed and updated. Current Outpatient Medications on File Prior to Visit Medication Sig OTC NUTRITIONAL SUPPLEMENT Take by mouth as directed. OTC NUTRITIONAL SUPPLEMENT Take 1 tablet by mouth once daily. Take by mouth as directed. glipiZIDE (GLUCOTROL XL) 5 mg 24 hr tablet Take 1 tablet by mouth once daily carvedilol (COREG) 12.5 mg tablet Take 1 tablet by mouth two times a day with meals. cholecalciferol, vitamin D3, (VITAMIN D3 ORAL) Take 1 tablet by mouth three times a week. Lactobacill 46-B.animal-inulin (PROBIOTIC-10, WITH INULIN,) 10 billion cell -100 mg cap Take 1 tablet by mouth once daily. probenecid 500 mg tablet Take 1 tablet by mouth two times a day. amLODIPine (NORVASC) 5 mg tablet Take 1 tablet by mouth once daily. mycophenolate Mofetil (CELLCEPT) 500 mg tablet Take 1 tablet by mouth twice daily triamcinolone (KENALOG) 0.025 % ointment Apply to affected area 2 times daily for 1-2 weeks after PDT pantoprazole DR (PROTONIX) 40 mg tablet Take 1 tablet by mouth two times a day. cloNIDine HCl (CATAPRES) 0.1 mg tablet Take 1.5 tablets by mouth two times a day. insulin degludec (TRESIBA FLEXTOUCH U-100) 100 unit/mL (3 mL) injection pen Inject 5 units once daily (Patient not taking: Reported on 06/18/2023) Insulin [place], Disposable, (BD ULTRAFINE III MINI PEN) 31 gauge x 3/16 USE WITH INSULIN PENS 1 TIME(S) DAILY Blood-Glucose Sensor ([employer] G7 SENSOR) wilmer CHANGE SENSOR EVERY 10 days. USE FOR CONTINOUS GLUCOSE MONITORING. INSULIN USE. E11.9 tacrolimus IR (PROGRAF) 1 mg capsule Take 1 capsule by mouth two times a day. Amoxicillin 500 mg tablet 2000 mg by mouth 1-2 hours prior to dental procedures metroNIDAZOLE 1 % gel Apply 1 application to affected area once daily. Location: face (Patient not taking: Reported on 06/22/2023) Current Facility-Administered Medications on File Prior to Visit Medication sodium chloride 0.9 % (flush) 10 mL (BD POSIFLUSH) PREFERRED PHARMACY: [facility] [address] [place] [address] - [address] [place] [address] - [phone] [place] [address] [facility]/pharmacy #[id number] [place] [address] [address] [facility] - [phone] [facility] [id number] [facility] [address] [facility] [address] [place] [address] - [address] - [phone] [address] [facility] [id number] [facility] [id number] [id number] [facility] [address] 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 Physical Exam Constitutional: Appearance: Normal appearance. He is normal weight. HENT: Head: Normocephalic and atraumatic. Eyes: Extraocular Movements: Extraocular movements intact. Conjunctiva/sclera: Conjunctivae normal. Pulmonary: Effort: Pulmonary effort is normal. Musculoskeletal: Cervical back: Normal range of motion. Right lower leg: No edema. Left lower leg: No edema. Skin: General: Skin is warm and dry. Coloration: Skin is not jaundiced or pale. Findings: No bruising, erythema or rash. Neurological: General: No focal deficit present. Mental Status: He is alert and oriented to person, place, and time. Mental status is at baseline. Motor: No weakness. Gait: Gait normal. Psychiatric: Mood and Affect: Mood normal. Behavior: Behavior normal. Thought Content: Thought content normal. Judgment: Judgment normal. DATA REVIEW: I personally reviewed the patient s labs and medical record from [facility]. LAB DATA: Basic Labs: Hemoglobin Date Value Ref Range Status 10/05/2024 13.4 13.0 - 17.0 g/dL Final 09/26/2024 13.6 13.0 - 17.0 g/dL Final 09/01/2024 13.7 13.0 - 17.0 g/dL Final 08/02/2024 13.6 13.0 - 17.0 g/dL Final 07/14/2024 13.3 13.0 - 17.0 g/dL Final Hematocrit Date Value Ref Range Status 10/05/2024 38.8 (L) 39.0 - 51.0 % Final 09/26/2024 39.3 39.0 - 51.0 % Final 09/01/2024 39.7 39.0 - 51.0 % Final 08/02/2024 39.3 39.0 - 51.0 % Final 07/14/2024 39.5 39.0 - 51.0 % Final MCV Date Value Ref Range Status 10/05/2024 90.4 80.0 - 100.0 fL Final 09/26/2024 91.4 80.0 - 100.0 fL Final 09/01/2024 90.0 80.0 - 100.0 fL Final 08/02/2024 91.2 80.0 - 100.0 fL Final 07/14/2024 92.1 80.0 - 100.0 fL Final Retic % Date Value Ref Range Status 11/05/2020 1.2 0.4 - 2.0 % Final WBC Date Value Ref Range Status 10/05/2024 4.19 3.70 - 11.00 k/uL Final 09/26/2024 5.15 3.70 - 11.00 k/uL Final 09/01/2024 4.30 3.70 - 11.00 k/uL Final 08/02/2024 4.37 3.70 - 11.00 k/uL Final 07/14/2024 3.87 3.70 - 11.00 k/uL Final Abs Neut Date Value Ref Range Status 10/05/2024 3.11 1.45 - 7.50 k/uL Final 09/26/2024 3.74 1.45 - 7.50 k/uL Final 09/01/2024 2.92 1.45 - 7.50 k/uL Final 08/02/2024 3.15 1.45 - 7.50 k/uL Final 07/14/2024 2.76 1.45 - 7.50 k/uL Final Platelet Count Date Value Ref Range Status 10/05/2024 73 (L) 150 - 400 k/uL Final Comment: No clot detected. 09/26/2024 91 (L) 150 - 400 k/uL Final Comment: No clot detected. 09/01/2024 82 (L) 150 - 400 k/uL Final Comment: No clot detected. 08/02/2024 52 (L) 150 - 400 k/uL Final Comment: No clot detected. 07/14/2024 52 (L) 150 - 400 k/uL Final Comment: Results checked and verified.No clot detected. Creatinine Date Value Ref Range Status 10/05/2024 1.22 0.73 - 1.22 mg/dL Final 09/26/2024 1.11 0.73 - 1.22 mg/dL Final 09/01/2024 1.04 0.73 - 1.22 mg/dL Final 08/02/2024 1.20 0.73 - 1.22 mg/dL Final 07/04/2024 1.15 0.73 - 1.22 mg/dL Final BUN Date Value Ref Range Status 10/05/2024 20 9 - 24 mg/dL Final 09/26/2024 23 9 - 24 mg/dL Final 09/01/2024 21 9 - 24 mg/dL Final 08/02/2024 22 9 - 24 mg/dL Final 07/04/2024 22 9 - 24 mg/dL Final AST Date Value Ref Range Status 10/05/2024 44 (H) 14 - 40 U/L Final 09/26/2024 48 (H) 14 - 40 U/L Final 09/01/2024 41 (H) 14 - 40 U/L Final 08/02/2024 43 (H) 14 - 40 U/L Final 04/14/2024 52 (H) 14 - 40 U/L Final ALT Date Value Ref Range Status 10/05/2024 31 10 - 54 U/L Final 09/26/2024 36 10 - 54 U/L Final 09/01/2024 33 10 - 54 U/L Final 08/02/2024 30 10 - 54 U/L Final 04/14/2024 39 10 - 54 U/L Final Hemostasis Labs: INR Date Value Ref Range Status 09/01/2024 1.4 (H) 0.9 - 1.3 Final Comment: Vitamin K Antagonist (VKA) Therapeutic Range: INR 2 to 3 (Target INR of 2.5) Note: For patients treated with VKA drugs, such as warfarin, the [employer] 2012 Guideline recommends a therapeutic INR range of 2 to 3 (target INR of 2.5). This recommendation includes high-risk patients with antiphospholipid syndrome with previous arterial or venous thromboembolism, current-generation mechanical or bioprosthetic aortic heart valve replacement. Note: Patients with mechanical aortic valve replacement and additional risk factors for thromboembolic events (atrial fibrillation, previous thromboembolism, LV dysfunction, hypercoagulable conditions) or an older generation mechanical AVR (i.e., ball in-Cage) or any mechanical MVR should have a INR therapeutic range of 2.5 to 3.5 (target INR of 3). Freida MA et al. Chest 2012, 141:7S-47S Bobbi ARZATE et al. [facility] 2017, 70: 148-289 03/31/2024 1.4 (H) 0.9 - 1.3 Final Comment: Vitamin K Antagonist (VKA) Therapeutic Range: INR 2 to 3 (Target INR of 2.5) Note: For patients treated with VKA drugs, such as warfarin, the [employer] 2012 Guideline recommends a therapeutic INR range of 2 to 3 (target INR of 2.5). This recommendation includes high-risk patients with antiphospholipid syndrome with previous arterial or venous thromboembolism, current-generation mechanical or bioprosthetic aortic heart valve replacement. Note: Patients with mechanical aortic valve replacement and additional risk factors for thromboembolic events (atrial fibrillation, previous thromboembolism, LV dysfunction, hypercoagulable conditions) or an older generation mechanical AVR (i.e., ball in-Cage) or any mechanical MVR should have a INR therapeutic range of 2.5 to 3.5 (target INR of 3). Freida MA et lynn. Chest 2012, 141:7S-47S Bobbi ARZATE et al. [facility] 2017, 70: [phone] 03/29/2024 1.3 0.9 - 1.3 Final Comment: Vitamin K Antagonist (VKA) Therapeutic Range: INR 2 to 3 (Target INR of 2.5) Note: For patients treated with VKA drugs, such as warfarin, the [employer] 2012 Guideline recommends a therapeutic INR range of 2 to 3 (target INR of 2.5). This recommendation includes high-risk patients with antiphospholipid syndrome with previous arterial or venous thromboembolism, current-generation mechanical or bioprosthetic aortic heart valve replacement. Note: Patients with mechanical aortic valve replacement and additional risk factors for thromboembolic events (atrial fibrillation, previous thromboembolism, LV dysfunction, hypercoagulable conditions) or an older generation mechanical AVR (i.e., ball in-Cage) or any mechanical MVR should have a INR therapeutic range of 2.5 to 3.5 (target INR of 3). Freida GH, et al. Chest 2012, 141:7S-47S Bobbi RA, et al. [facility] 2017, 70: 252-289 APTT Date Value Ref Range Status 03/30/2024 55.8 (H) 23.0 - 32.4 sec Final 03/30/2024 125.5 (H) 23.0 - 32.4 sec Final Comment: Result rechecked. Sample checked for clot. 03/30/2024 >139.0 (H) 23.0 - 32.4 sec Final Comment: Result rechecked. Sample checked for clot. Thrombosis Labs: No results found for: CRP, [id number], FACTOR, HYPCQ, PT2Q, PROTSINTL, PROTCINTL, LUPUS, LACININTL, DRVVT, WFUK9MAHR, QCWJ3SYMH, ACARDINTL, DDMER, PNHPI, PNHFL, JAK2SP, JAK2E Anemia Labs: Ferritin Date Value Ref Range Status 10/05/2024 75.8 30.3 - 565.7 ng/mL Final 09/26/2024 85.6 30.3 - 565.7 ng/mL Final 09/01/2024 93.7 30.3 - 565.7 ng/mL Final Iron Date Value Ref Range Status 10/05/2024 148 41 - 186 ug/dL Final 09/26/2024 68 41 - 186 ug/dL Final 09/01/2024 87 41 - 186 ug/dL Final Copper Date Value Ref Range Status 07/09/2023 98 70 - 140 ug/dL Final Comment: This test was developed and its performance characteristics determined by [facility]'s [facility] [place] ([facility]). It has not been cleared or approved by the FDA. [facility] is regulated under CLIA as qualified to perform high-complexity testing. This test is used for clinical purposes. It should not be regarded as investigational or for research. Vitamin B12 Date Value Ref Range Status 07/09/2023 890 232 - 1,245 pg/mL Final 11/05/2020 750 232 - 1,245 pg/mL Final 07/05/2020 563 232 - 1,245 pg/mL Final Folate Date Value Ref Range Status 07/09/2023 17.3 >4.7 ng/mL Final 11/05/2020 15.3 >4.7 ng/mL Final 07/05/2020 8.7 >4.7 ng/mL Final TSH Date Value Ref Range Status 07/05/2020 1.540 0.270 - 4.200 uU/mL Final 06/06/2018 0.753 0.400 - 5.500 uU/mL Final Hemolysis/TMA Labs: Retic % Date Value Ref Range Status 11/05/2020 1.2 0.4 - 2.0 % Final Neutropenia Labs: Folate Date Value Ref Range Status 07/09/2023 17.3 >4.7 ng/mL Final Vitamin B12 Date Value Ref Range Status 07/09/2023 890 232 - 1,245 pg/mL Final Copper Date Value Ref Range Status 07/09/2023 98 70 - 140 ug/dL Final Comment: This test was developed and its performance characteristics determined by [facility] [place] ([facility]). It has not been cleared or approved by the FDA. [facility] is regulated under CLIA as qualified to perform high-complexity testing. This test is used for clinical purposes. It should not be regarded as investigational or for research. MYELOID NGS PANEL PERIPHERAL BLOOD Date Value Ref Range Status 07/14/2024 Final Myeloid NGS Panel Peripheral Blood Laboratory Accession Number: [id number] Result: Please see linked document and/or separate report for full result when available. Interpretation performed at remote location ([facility]) by Camille Chaney MD, PhD Thrombocytopenia Labs: No results found for: PF4COM, SERHEP, PLTCO, PLTAS, PLA1AG, HIV, EBVDQ Monoclonal Gammopathy Labs: Hemoglobin Date Value Ref Range Status 10/05/2024 13.4 13.0 - 17.0 g/dL Final 09/26/2024 13.6 13.0 - 17.0 g/dL Final 09/01/2024 13.7 13.0 - 17.0 g/dL Final Creatinine Date Value Ref Range Status 10/05/2024 1.22 0.73 - 1.22 mg/dL Final 09/26/2024 1.11 0.73 - 1.22 mg/dL Final 09/01/2024 1.04 0.73 - 1.22 mg/dL Final Calcium, Total Date Value Ref Range Status 10/05/2024 9.0 8.5 - 10.2 mg/dL Final 09/26/2024 9.2 8.5 - 10.2 mg/dL Final 09/01/2024 8.5 8.5 - 10.2 mg/dL Final MPN Labs: No results found for: JAK2SP, JAK2E, JAK2I, CALRM, MPLMU, MPNFMR, MPNRES, MPNMRS BM BIOPSY: N/A IMAGING DATA: US Liver 02/16/23 PATENT HEPATIC VASCULATURE WITH APPROPRIATELY DIRECTED FLOW. CIRRHOTIC LIVER MORPHOLOGY WITH STIGMATA OF PORTAL HYPERTENSION. SLIGHT INTERVAL INCREASE IN SIZE OF PREVIOUSLY DESCRIBED HYPOECHOIC LESION IN THE RIGHT HEPATIC LOBE. CONSIDER EVALUATION WITH CONTRAST ENHANCED LIVER MRI. STABLE SPLENOMEGALY. 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 He is currently treated with tacrolimus and cellcept for the autoimmune hepatitis. He was diagnosed with autoimmune hepatitis in 2019 and treated with high dose steroids at that time. #Iron Deficiency Anemia Due to Chronic GI Bleeding: He was admitted at [place] 03/27/23 with upper GI bleed and had an EGD with esophageal variceal bleeding that was banded. He remains on Protonix 40 mg bid, started 04/16/23. He has history of iron deficiency in 2018 and was briefly on oral iron. He has repeat labs from 05/21/23 consistent with iron deficiency anemia with a hemoglobin of 11.0 g/dL. He received 200 mg IV iron sucrose on 06/23/23, 06/25/23, 06/28/23, 06/30/23 and 07/02/23. Last EGD 07/06/23 with a non-bleeding grade I esophageal varices and portal hypertensive gastropathy. -Follow through with recommended annual EGD for surveillance -Continue with once a month CBC and iron studies #Chronic Immune-Thrombocytopenia: I discussed that with his known autoimmune hepatitis it is possible to have multiple autoimmune processes and that could include immune mediated thrombocytopenia (ITP). I discussed that an elevated mean platelet volume and immature platelet fraction could be indicative of either ongoing bleeding or immune destruction of the platelets. He does have cirrhosis and splenomegaly that are known drivers of thrombocytopenia, but I want to also assess for additional etiologies that would be managed differently. The MPV has been elevated previously and he remains iron deficient--so I first want to replace his iron and monitor the blood counts and immature platelet fraction. If these remain elevated without evidence of bleeding then we could discuss use of either a TPO-agonist like Nplate or Doptelet +/- changes to his current immunosuppressants to treat presumed ITP. -He began Eliquis on 03/29/24, so his platelets will now need to remain >50K, as his platelets persist in the 50-60K range we started Doptelet-- 20 mg Wed-Wed-Wed #CCUS with DNMT3A Mutation: -He follows with Dr. 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 He was started on Eliquis 5 mg bid. He saw vascular medicine on 05/10/24 with plans for long-term anticoagulation and repeat CT scan in July 2024. 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 MGUS occurs in about 3% of the population over the age of 50 and is usually an incidental finding during a patient s work-up for another finding. While MGUS itself usually requires no specific therapy, in general, patients with MGUS may progress to MM at a rate of approximately 1% per year. There exists a subset of MGUS patients with increased-risk factors including 1) M-spike >1.5 g/dL, 2) non-IgG MGUS (i.e. IgA, IgM, IgD) and 3) abnormal serum free light chain ratio. The presence of all 3 is categorized as high-risk MGUS, 2 factors high-intermediate and 1 factor low-intermediate risk. For these reasons routine follow-up is recommended at least annually. -Monitor monoclonal labs once a year RTC in 6 months with labs one week prior The patient's questions were answered. Total time 30 minutes, this included time preparing for the visit by reviewing the patient's chart and the time spent during the visit counseling and coordinating care. Fransisca Ortiz DO Staff Physician, [facility] Hematologic Oncology and Blood Disorders Program [email or web address] [facility] cell: [phone] [facility] [address], [place] [place] [id number] [facility] [address] [place] [address] documented in this encounter [facility] 10-10-2024 Telephone encounter Note [employer] message read: Last read by Mateus Yi at 11:51AM on 10/10/2024. [facility] 10-10-2024 Miscellaneous Notes [employer] message read: Last read by Mateus Yi at 11:51AM on 10/10/2024. Order reviewed and signed. Thank you Fabricio Wilcox PA-C Dr. Tyler reviewed patient's cervical CT scan. Cervical CT Scan shows: Facet arthritis (decrease in cartilage causing joints to rub roughly becoming inflamed and painful) Dr. Tyler recommends a right C3-4, C4-5 cervical facet injection. To satisfy Medicare requirements for facet injections, the patient requires an office visit. MyChart message sent. Injection order pended for provider review. Routing to provider. documented in this encounter [facility] 10-10-2024 Telephone encounter Note Order reviewed and signed. Thank you Fabricio Wilcox PA-C [facility] Work Phone: 10-10-[address] Tyler reviewed patient's cervical CT scan. Cervical CT Scan shows: Facet arthritis (decrease in cartilage causing joints to rub roughly becoming inflamed and painful) Dr. Tyler recommends a right C3-4, C4-5 cervical facet injection. To satisfy Medicare requirements for facet injections, the patient requires an office visit. MyChart message sent. Injection order pended for provider review. Routing to provider. [facility] 10-06-2024 History of Present illness Narrative Radiology Service Progress Note PATIENT NAME: Mateus Yi DATE OF SERVICE: October 06, 2024 TIME: 3:58 PM PATIENT IDENTITY VERIFICATION COMPLETED USING TWO (2) IDENTIFIERS: Name and Date of confirmed by patient verbally. FALL SCREENING: Has the patient had 2 falls in the last year or 1 fall with injury or currently using an Ambulatory Assistive Device (Walker, Cane, Wheelchair, Crutches, etc.)? No PATIENT GENDER DATA: Assigned male at PATIENT RELEVANT IMPLANT DATA REVIEWED: Yes PATIENT PRESENTS WITH AN IMPLANTABLE OR ATTACHED CUFF SETTER: No RADIOLOGY DEPARTMENT: CT; Exam(s) Completed: Spine PERIPHERAL IV DATA: Not applicable SIGNED BY: RT Graham(R) October 06, 2024 3:58 PM documented in this encounter [facility] 10-04-2024 History of Present illness Narrative [facility] Date: October 04, 2024 - 12:57 PM Mateus Yi is seen in consultation requested by Obdulia Martínez for an opinion regarding neck pain. My final recommendations will be communicated back to the requesting physician by way of shared medical record or via US mail. Chief Complaint: neck pain SUBJECTIVE: Mateus Yi is a 74-year-old male presenting with persistent neck pain. Mateus reports severe neck pain localized to the right side, which began a couple of months ago. He describes waking up with terrible pain and stiffness, without any preceding injury. Initially, he was unable to turn his neck due to stiffness, which has since improved with physical therapy and exercises. However, the pain has remained unchanged since onset. The pain is exacerbated by any neck movement, including rotation and looking up or down. He notes significant discomfort when lying in bed and needing to raise his head. He reports difficulty with activities such as finishing a glass of water due to pain when looking up. He does not endorse pain radiating down the arm. The pain is described as sharp. The pain intensity is rated 6. The pain is exacerbated by positional and movement and relieved by reposition. Symptoms interfere with physical activity, sleeping, cooking, household cleaning, and lifting. 99% pain in spine vs 1% (radiating) pain in the extremity. Litigation: No. Worker's Compensation: No. Prior pain treatment has included: Medication(s): None Physical therapy: Completed within the last month, this was completed at [facility] in [place]. Injection(s): None ALLERGIES Allergen Reactions Percocet [Oxycodone* Other: See Comments Pt states he doesn't have an allergy to percocet, but because of his reaction to Vicodin, he avoids it. Vicodin [Hydrocodon* Anaphylaxis stopped breathing Hibiscus (Hibiscus * Hives, Shortness of Breath Valsartan Myalgia Cramps in legs, muscle pain Lidocaine Other: See Comments Dizziness, profuse sweating with application of topical lidocaine patch to abdomen; symptoms resolved with removal of patch. Current Medications: Pain medications reviewed and reconciled in the medication list: Yes. Current Outpatient Medications Medication Sig mycophenolate Mofetil (CELLCEPT) 500 mg tablet Take 1 tablet by mouth twice daily glipiZIDE (GLUCOTROL XL) 5 mg 24 hr tablet Take 1 tablet by mouth once daily. cyclobenzaprine (FLEXERIL) 10 mg tablet Take 1 tablet by mouth three times a day as needed. avatrombopag (DOPTELET, 30 TAB PACK,) 20 mg tablets Take 1 tablet (20mg) by mouth every Wednesday, Wednesday, and Wednesday. Blood-Glucose Sensor ([employer] G7 SENSOR) wilmer CHANGE SENSOR EVERY 10 days. USE FOR CONTINOUS GLUCOSE MONITORING. INSULIN USE. E11.9 insulin degludec (TRESIBA FLEXTOUCH U-100) 100 unit/mL (3 mL) injection pen Inject 5 units once daily pantoprazole DR (PROTONIX) 40 mg tablet Take 1 tablet by mouth two times a day. carvedilol (COREG) 12.5 mg tablet Take 1 tablet by mouth two times a day with meals. cloNIDine HCl (CATAPRES) 0.1 mg tablet Take 1 tablet by mouth three times a day. amLODIPine (NORVASC) 5 mg tablet Take 1 tablet by mouth once daily. apixaban (ELIQUIS) 5 mg tab(s) Take 1 tablet by mouth two times a day. tacrolimus IR (PROGRAF) 1 mg capsule Take 1 capsule by mouth two times a day. OTC NUTRITIONAL SUPPLEMENT Take by mouth as directed. cholecalciferol, vitamin D3, (VITAMIN D3 ORAL) Take 1 tablet by mouth three times a week. Lactobacill 46-B.animal-inulin (PROBIOTIC-10, WITH INULIN,) 10 billion cell -100 mg cap Take 1 tablet by mouth once daily. Insulin [place], Disposable, (BD ULTRAFINE III MINI PEN) 31 gauge x 3/16 USE WITH INSULIN PENS 1 TIME(S) DAILY Amoxicillin 500 mg tablet 2000 mg by mouth 1-2 hours prior to dental procedures Fluorouracil (EFUDEX) 5 % cream Apply thin coat twice daily (morning and evening) for 2-4 weeks to affected area(s) on FACE until rash develops (red, raw, and potentially scale or scab). Do not rinse.Try to apply for AT LEAST 2 weeks. Once rash becomes very vigorous, can stop/discontinue treatment. Do not allow animals to lick medication. Wash hands after applying (Patient not taking: Reported on 08/07/2024) No current facility-administered medications for this visit. 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 Cervical radiculopathy CKD (chronic kidney disease) Family history of arteriosclerotic cardiovascular disease HTN [...] at age 40's, 2 other uncles suddenly Social History: Alcohol Use: Not Currently Tobacco Use: Types: Cigars Drug Use: Yes (medical marijuana) Employer And Job Title: None on file Years Of Education Completed: Not specified Marital Status: REVIEW OF SYSTEMS: Constitutional: (+) Fever (+) Night Sweats (-) Weight Gain (-) Weight Loss (+) Fatigue Cardiovascular: (+) Chest Pain (+) Palpitations (+) Lightheadedness (-) Swelling of Ankles (-) Hx Heart Surgery (+) Defib Respiratory: (+) Shortness of Breath (-) Cough (-) Wheezing (-) Snoring Gastrointestinal: (+) Incontinence (+) Abdominal Pain (+) Diarrhea (+) Constipation (+) Nausea/Vomiting (-) Heart Burn Endocrine: (-) Thyroid Disorder (+) Diabetes Hematologic: (+) Prolonged Bleeding (+) Easy Bruising Genitourinary: (-) Incontinence (-) Frequency (+) Urinary Urgency Skin: (-) Rashes (-) Itching (-) Other Lesions Neurologic: (-) Headache (-) Double Vision (-) Confusion (-) Paralysis (+) Vertigo (-) Syncope Psychiatric: (-) Depression (-) Anxiety (-) Delusions (-) Hallucinations (-) Suicidal Thoughts OARRS Report reviewed: Yes Narcotic Agreement reviewed and signed?: N/A Baseline Urine Toxicology obtained: N/A PHYSICAL EXAM: Performed in conjunction with observation. The patient was alert and oriented x3. The patient was in no acute distress. Lungs: Clear, negative for dyspnea or distress. CVR: Regular Rate. Negative for SOB or peripheral edema. - Neck: - Range of Motion: - Flexion: Limited, painful. - Extension: Limited, painful. Positive facet loading. - Rotation: - Left: Full, no pain. - Right: Limited, painful. - Palpation: Tenderness over facet joints, particularly on the right side; muscle tenderness noted at the base of the skull. - Neurological: - Sensation: Intact. Extremities: no reported edema or erythema. Motor: Negative focal deficits Sensory: Intact to light touch bilateral upper extremities Gait: Within normal limits Medical record and diagnostic tests were reviewed for today's visit. ASSESSMENT/PLAN: 1. Neck pain (M54.2) 2. Cervical spondylosis (M47.812) - Chronic neck pain localized to the right side, persisting for several months without significant improvement despite physical therapy and exercises. - Pain exacerbated by movement, particularly rotation and extension; some relief in specific positions. - Recent X-rays show degenerative changes, particularly at C5/6, and cervical spondylosis worse on the right side; no acute abnormalities noted. - Physical examination reveals limited range of motion with pain on extension and right rotation; tenderness over the facet joint area. - Pain likely due to a combination of arthritic changes and muscular inflammation. - CT scan scheduled for Wednesday - Discussed potential for facet joint injections pending CT results to alleviate pain. - Advised patient to continue current exercises to maintain mobility. - will review the Results of the CT scan of the cervical spine and we will provide further recommendation at that time. The above plan and management options were discussed with patient. The patient is in agreement with the above and verbalized understanding. I have discussed and confirmed the above treatment plan with the patient and I have reviewed the nurses notes and I am aware of the family/social history. I have confirmed ROS findings. Prabhu Tyler MD 1. This document has been created with the use of voice recognition technology. It may contain inaccuracies: (e.g. misspellings, inaccurate syntax or word sense) that have escaped review. 2. The nurse practitioner, nursing staff and medical assistants are a major part of YOUR TREATMENT TEAM and will be handling your phone calls and inquiries, if any. Unless explicitly told otherwise at the time of your office visit, your study results and ensuing treatment plans will be discussed during your follow-up appointment. If you do not have a follow-up appointment and wish to discuss any issues, please set up an appointment. 3. All of the office notes, study results, and other pertinent documentation generated as part of your evaluation will be available to you and to your Primary Care Physician (PCP). Use of this material to complete such forms will be at the discretion of your PCP/referring physician. October 04, 2024 cc: Obdulia Martínez [address] [facility] [id number] Results of consultation to be transmitted via electronic medical record for those providers who practice within [facility] or with access to [employer] via MD Connect, or via letter. documented in this encounter [facility] 10-03-2024 History of Present illness Narrative This is a 74 year old male who presents today with: Maetus Yi is a 74-year-old male presenting for evaluation of chronic neck pain and left knee pain. HISTORY OF PRESENT ILLNESS: Chronic Neck Pain: - Persistent neck pain, unchanged over time. He was initially seen on 08/09 after ER visit for neck pain that he awoke with. - Pain localized to the right upper neck, radiating downwards. - Aggravated by certain movements, including reaching and head extension. - Pain limits Mateus's ability to do certain tasks. - Denies known trauma; onset was sudden upon waking. - Denies any popping or cracking sounds. - No tenderness upon palpation. - Denies numbness or tingling in arms. - Mateus has tried personal care home administrator without relief. - Has taken Flexeril occasionally for sleep; stopped regular use. - Has taken acetaminophen a couple of times with some relief. - Completed one session of physical therapy; continues exercises at home. - Exercises have improved posture but not neck pain. - Unable to perform chin forward and back exercise due to pain. 08/09/24: Stable mild C5-C6 retrolisthesis. Multilevel degenerative disc disease, advanced at C5-6 and moderate to advanced at C3-4 or C6-7, little changed. Significant bilateral facet arthrosis at multiple levels. Mild bony neural foraminal narrowing bilaterally at multiple levels without high-grade stenosis. Prevertebral soft tissues are within normal limits. Left Knee Pain: - Chronic left knee pain with occasional swelling. 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 - Pain managed with wrapping the knee. - Previous X-ray in January ordered by Dr. May. - Denies tenderness upon palpation. 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 cyclobenzaprine (FLEXERIL) 10 mg tablet Take 1 tablet by mouth three times a day as needed. avatrombopag (DOPTELET, 30 TAB PACK,) 20 mg tablets Take 1 tablet (20mg) by mouth every Wednesday, Wednesday, and Wednesday. Blood-Glucose Sensor ([employer] G7 SENSOR) wilmer CHANGE SENSOR EVERY 10 days. USE FOR CONTINOUS GLUCOSE MONITORING. INSULIN USE. E11.9 insulin degludec (TRESIBA FLEXTOUCH U-100) 100 unit/mL (3 mL) injection pen Inject 5 units once daily pantoprazole DR (PROTONIX) 40 mg tablet Take 1 tablet by mouth two times a day. carvedilol (COREG) 12.5 mg tablet Take 1 tablet by mouth two times a day with meals. cloNIDine HCl (CATAPRES) 0.1 mg tablet Take 1 tablet by mouth three times a day. amLODIPine (NORVASC) 5 mg tablet Take 1 tablet by mouth once daily. Fluorouracil (EFUDEX) 5 % cream Apply thin coat twice daily (morning and evening) for 2-4 weeks to affected area(s) on FACE until rash develops (red, raw, and potentially scale or scab). Do not rinse.Try to apply for AT LEAST 2 weeks. Once rash becomes very vigorous, can stop/discontinue treatment. Do not allow animals to lick medication. Wash hands after applying (Patient not taking: Reported on 08/07/2024) apixaban (ELIQUIS) 5 mg tab(s) Take 1 tablet by mouth two times a day. tacrolimus IR (PROGRAF) 1 mg capsule Take 1 capsule by mouth two times a day. OTC NUTRITIONAL SUPPLEMENT Take by mouth as directed. cholecalciferol, vitamin D3, (VITAMIN D3 ORAL) Take 1 tablet by mouth three times a week. Lactobacill 46-B.animal-inulin (PROBIOTIC-10, WITH INULIN,) 10 billion cell -100 mg cap Take 1 tablet by mouth once daily. Insulin [place], Disposable, (BD ULTRAFINE III MINI PEN) 31 gauge x 3/16 USE WITH INSULIN PENS 1 TIME(S) DAILY Amoxicillin 500 mg tablet 2000 mg by mouth 1-2 hours prior to dental procedures No current facility-administered medications for this visit. FAMILY HISTORY Problem Relation Age of Onset Cataract Father Heart Father Hypertension Father Cancer Brother lung Heart disease Brother pacemaker. cardiac ablation Alcohol/Drug Brother No Known Problems Son Heart Paternal Uncle suddenly at age 40's, 2 other uncles suddenly Social History Tobacco Use Smoking status: Former Types: Cigars Smokeless tobacco: Never Vaping Use Vaping status: Some Days Substances: THC, CBD Devices: Disposable Substance Use Topics Alcohol use: Not Currently Drug use: Yes Types: Marijuana Comment: medical marijuana REVIEW OF SYSTEMS Neck: (+) neck pain, (+) neck stiffness, (-) neck tenderness, (-) neck popping Musculoskeletal: (+) left knee pain, (+) left knee swelling, (-) right knee pain Neurological: (+) arm numbness/tingling, (-) sleepwalking EXAM: BP 144/88 Pulse (!) 57 Resp 16 SpO2 98% PHYSICAL EXAM: General Appearance: Well appearing, alert, in no acute distress, well-hydrated, well nourished.. Skin: Skin color, texture, turgor normal, no suspicious rashes or lesions. Head: Normocephalic, no masses, lesions, tenderness or abnormalities. Eyes: Anicteric sclera. Extraocular movements are intact. . Neck: Supple, no adenopathy. ROM limited by pain. Traps tight. No pain to palpate cervical spine. Extremities: No deformities, edema, skin discoloration, clubbing or cyanosis. Good capillary refill. . Neurologic: Gait normal. = UE reflexes and strength. ASSESSMENT/PLAN 1. Neck pain (M54.2) 2. Spinal stenosis of cervical region (M48.02) - Chronic neck pain with limited range of motion and associated numbness and tingling in the arms; no significant tenderness on palpation. - Previous conservative management including physical therapy and personal care home administrator has not provided relief. - Ordered CT scan of the cervical spine to evaluate for underlying pathology. (Unable to do MRI d/t AICD). - Referral to spine medicine for further evaluation and management. - Patient understands and agrees with the plan. 3. Acute pain of left knee (M25.562) Not ready to pursue treatment yet, but requesting PT. - Chronic left knee pain with occasional swelling; no recent trauma reported. - Previous X-ray in January showed no acute findings. - Referral to physical therapy for knee pain management. - Patient understands and agrees with the plan. Discussed treatment plan and patient voices understanding. Patient's questions answered appropriately. Medications and potential side effects were discussed and patient voices understanding. Return to the office as scheduled or as needed for worsening/no improvement. Obdulia Martínez APRN.CNP Recording using Send[employer] software for draft documentation of the visit was discussed with the patient/authorized food service representative; all questions welcomed and answered. Patient/authorized food service representative agreed to proceed documented in this encounter [facility] 10-03-2024 Instructions Obdulia Martínez APRN.CNP - 10/03/2024 11:28 AM EDT - Go to the front man to schedule a CT scan of your cervical spine ([place], [place], [place], or the closest location). - A referral to spine medicine has been placed. - Continue the home neck exercises introduced in physical therapy, especially the exercise targeting the underdeveloped muscle that helps straighten your posture. - A physical therapy referral for your left knee has been sent to [facility]; stop by the front man to set up those appointments. documented in this encounter [facility] 09-26-2024 Discharge summary Note Date/Time September 26, 2024 2:35p [facility] [address] [place] [address] [address] [place] [address] / REHABILITATION SERVICES DISCHARGE SUMMARY MR#: [id number] Acct: [id number] Name: PARKER YI Rep #: [id number] : 1950 74 From: Naif Damian PT, ATC Referring DrMerrick: VERO Martínez Status: REG RCR Insurance: MEDICARE PART A B [employer] Discharge Summary D/C summary: It has been my pleasure to treat PARKER YI referred by VERO Hall, with the diagnosis of Neck pain for a total of 3 visit(s). Discharge Date: Please see the following information for a summary of their discharge status. Subjective Subjective: Pt reports he feels stronger overall, and is Pleased with his progress with every aspect but pain. Pt notes no change in his R neck pain Pain Neck pain: Pain Intensity (Out of 10): 4 Objective Objective/Function: Pt is still very limited with B cervical spine rotation. Pain has remained the same Goals Goal 1:: I with HEP in one week Goal Progress: Goal Met Goal 2:: Decrease neck pain x 50% to aid with IADL's Goal Progress: Not Progressing Goal 3:: Increase R c/s rotation to within normal limits to aid with IADL's Goal Progress: Not Progressing Plan Plan: Discontinue Rx at this time and return to doctor D/C Information d/c sentence: If there are questions or concerns regarding this patient's physical therapy, please feel free to call me at [phone]. Thank you for the referral of thispatient. Sincerely, Naif Damian PT, ATC <Electronically signed by Naif Damian PT, ATC> 09/26/24 1859 CC: VERO Martínez; Dr. Davis May MD ~ [facility] Signed [facility] Work Phone: [phone]) 938-446407-08-2025 Discharge summary [facility] [address] [place] [address]. [address] [place] [address] / REHABILITATION SERVICES DISCHARGE SUMMARY MR#: [id number] Acct: [id number] Name: PARKER YI Rep #: [id number] : 1950 74 From: Naif Damian PT, ATC Referring Dr.: VERO Martínez Status: REG RCR Insurance: MEDICARE PART A B [facility] Discharge Summary D/C summary: It has been my pleasure to treat PARKER YI referred by VERO Hall, with the diagnosis of Neck pain for a total of 3 visit(s). Discharge Date: Please see the following information for a summary of their discharge status. Subjective Subjective: Pt reports he feels stronger overall, and is Pleased with his progress with every aspect but pain. Pt notes no change in his R neck pain Pain Neck pain: Pain Intensity (Out of 10): 4 Objective Objective/Function: Pt is still very limited with B cervical spine rotation. Pain has remained the same Goals Goal 1:: I with HEP in one week Goal Progress: Goal Met Goal 2:: Decrease neck pain x 50% to aid with IADL's Goal Progress: Not Progressing Goal 3:: Increase R c/s rotation to within normal limits to aid with IADL's Goal Progress: Not Progressing Plan Plan: Discontinue Rx at this time and return to doctor D/C Information d/c sentence: If there are questions or concerns regarding this patient's physical therapy, please feel free to call me at [phone]. Thank you for the referral of thispatient. Sincerely, Naif Damian, PT, ATC 09/26/24 [id number] CC: VERO Martínez; Dr. Davis May MD ~ [facility] Signed [facility]06-19-2025 Telephone encounter Note* Telephone Encounter - Karina Peters RN - 09/07/2024 9:10 AM EDT Please see refill encounter from 09/02/2024 where Glipizide refill was addressed and pt was updated on 09/04/2024. Pt also read message on 09/05/2024. Pt is asking for an early refill. This nurse updated pt to contact his insurance regarding this as Evelin Reich CNP has no control of when his insurance is able to fill prescription for Glipizide. [facility]06-19-2025 Miscellaneous Notes* Telephone Encounter - Karina Peters RN - 09/07/2024 9:10 AM EDT Please see refill encounter from 09/02/2024 where Glipizide refill was addressed and pt was updated on 09/04/2024. Pt also read message on 09/05/2024. Pt is asking for an early refill. This nurse updated pt to contact his insurance regarding this as Evelin Reich CNP has no control of when his insurance is able to fill prescription for Glipizide. [facility] History of Present illness Narrative* Grady Gregory RPh - 09/04/2024 5:30 PM EDT Mateus Yi is a 74 year old male who was contacted for initial ACO patient outreach. ACO patient group: General Location where consult was completed: [facility] at [phone] Patient encountered via: Unable to reach patient by phone or [employer] Estimated time spent on this encounter: <15 minutes Grady Gregory RPh September 04, 2024 5:31 PM documented in this [facility] NoteHNO ID: [id number] Author: GRADY GREGORY RPh Service: ? Author Type: Pharmacist Type: Progress Notes Filed: 09/04/2024 17:31 Note Text: Mateus Yi is a 74 year old male who was contacted for initial ACO patient outreach. ACO patient group: General Location where consult was completed: [facility] at [phone] Patient encountered via: Unable to reach patient by phone or TapC[employer]kshart Estimated time spent on this encounter: <15 minutes Grady Gregory RPh September 04, 2024 5:[id number] Telephone encounter Note* Telephone Encounter - Karina Peters RN - 09/04/2024 2:26 PM EDT Updated pt that a new prescription for his Glipizide 5 mg 24 hr tablet was sent into [facility] in [place]. [facility]06-16-2025 Miscellaneous Notes* Telephone Encounter - Karina Peters RN - 09/04/2024 2:26 PM EDT Updated pt that a new prescription for his Glipizide 5 mg 24 hr tablet was sent into [facility] in [place]. [facility] History of Present illness Narrative* Dimple Payne RN - 09/04/2024 8:10 AM EDT ACM MISHEL RN Action/FYI: Attempt #2. Per chart review, Pt had a Medicare Wellness appt on 02/07/25. Unable to reach. VM left as below. Pharmacy for Life order placed on prior outreach. Patient identified by name and date of . Patient Attributed To: QAE Payer: ACO ([facility]) Reason for review or outreach: Contract Priority Patient qualifies for ACO Ecosystem outreach Contact made with Patient: No I VM Left: This is Dimple Payne RN , a registered nurse calling from the [facility]. I am sorry I missed you, your care is important to us. Please know that your PCP's office is available 12/10 to assess for and address your needs. They can help determine what care you need and can scheduleurgent appointments if necessary, and can be reached at [phone] . Please note that a Pharmacist, in collaboration with your Primary Care Provider, will be contacting you within the next 7 days to review your medications to help optimize your medication regimens, ensure that they are as affordable to you as possible, and make sure that there are no lapses in delivery of care to you. Thank you. Dimple Payne RN September 04, 2024 8:11 AM documented in this encounter[facility] History of Present illness Narrative* Dimple Payne RN - 08/31/2024 10:40 AM EDT ACM MISHEL ADRIENNE Action/FYI: Per chart review, Pt had a Medicare Wellness appt on 02/07/25. Unable to reach. VM left as below. Pharmacy for Life order placed. Will outreach again within a week. Patient identified by name and date of . Patient Attributed To: QAE Payer: ACO ([facility]) Reason for review or outreach: Contract Priority Patient qualifies for ACO Ecosystem outreach Contact made with Patient: No VM Left: This is Dimple Payne RN , a registered nurse calling from the [facility]. I am sorry I missed you, your care is important to us. Please know that your PCP's office is available 12/10 to assess for and address your needs. They can help determine what care you need and can scheduleurgent appointments if necessary, and can be reached at the [facility] Home phone number provided .Please note that a Pharmacist, in collaboration with your Primary Care Provider, will be contactingyou within the next 7 days to review your medications to help optimize your medication regimens, ensure that they are as affordable to you as possible, and make sure that there are no lapses in delivery of care to you. Thank you. Dimple Payne RN August 31, 2024 10:41 AM documented in this encounterMer[facility] Telephone encounter Note * Telephone Encounter - Roselia Heath MA - 08/31/2024 10:18 AM EDT Clonidine was refilled 90 day supply with 1 refill on 06/07/24 to [facility] Pt notified via [employer] to check with pharmacy for refill. Roselia Heath MA [facility]06-12-2025 Miscellaneous Notes* Telephone Encounter - Roselia Heath MA - 08/31/2024 10:18 AM EDT Clonidine was refilled 90 day supply with 1 refill on 06/07/24 to [facility] Pt notified via [employer] to check with pharmacy for refill. Roselia Heath MA documented in this encounterMer[facility] History of Present illness Narrative* Jose Landry MD - 08/07/2024 11:27 AM EDT Images from the original note were not included. [facility] [place] Forrest Zaragoza Department of Cardiovascular Medicine SECTION OF VASCULAR MEDICINE OUTPATIENT VISIT DATE August 07, 2024 OUTPATIENT VISIT TYPE ESTABLISHED Follow up regarding: PVT last seen 05/10/24 Patient arrived 25 minutes late for this appointment Allergies: is allergic to percocet [oxycodone-acetaminophen], vicodin [hydrocodone-acetaminophen], hibiscus, valsartan, and lidocaine. Medications: Current Outpatient Medications Medication Sig avatrombopag (DOPTELET, 30 TAB PACK,) 20 mg tablets Take 1 tablet (20mg) by mouth every Wednesday, Wednesday, and Wednesday. Blood-Glucose Sensor ([employer] G7 SENSOR) wilmer CHANGE SENSOR EVERY 10 days. USE FOR CONTINOUS GLUCOSEMONITORING. INSULIN USE. E11.[address] (PROTONIX) 40 mg tablet Take 1 tablet by mouth two times a day. mycophenolate Mofetil (CELLCEPT) 500 mg tablet Take 1 tablet by mouth twice daily glipiZIDE (GLUCOTROL XL) 5 mg 24 hr tablet Take 1 tablet by mouth once daily. carvedilol (COREG) 12.5 mg tablet Take 1 tablet by mouth two times a day with meals. cloNIDine HCl (CATAPRES) 0.1 mg tablet Take 1 tablet by mouth three times a day. amLODIPine (NORVASC) 5 mg tablet Take 1 tablet by mouth once daily. apixaban (ELIQUIS) 5 mg tab(s) Take 1 tablet by mouth two times a day. tacrolimus IR (PROGRAF) 1 mg capsule Take 1 capsule by mouth two times a day. OTC NUTRITIONAL SUPPLEMENT Take by mouth as directed. cholecalciferol, vitamin D3, (VITAMIN D3 ORAL) Take 1 tablet by mouth three times a week. Lactobacill 46-B.animal-inulin (PROBIOTIC-10, WITH INULIN,) 10 billion cell -100 mg cap Take 1 tablet by mouth once daily. insulin degludec (TRESIBA FLEXTOUCH U-100) 100 unit/mL (3 mL) injection pen Inject 5 units once daily (Patient not taking: Reported on 08/07/2024) Fluorouracil (EFUDEX) 5 % cream Apply thin coat twice daily (morning and evening) for 2-4 weeks to affected area(s) on FACE until rash develops (red, raw, and potentially scale or scab). Do not rinse.Try to apply for AT LEAST 2 weeks. Once rash becomes very vigorous, can stop/discontinue treatment.Do not allow animals to lick medication. Wash hands after applying (Patient not taking: Reported on08/07/2024) Insulin [place], Disposable, (BD ULTRAFINE III MINI PEN) 31 gauge x 3/16 USE WITH INSULIN PENS 1 TIME(S) DAILY (Patient not taking: Reported on 08/07/2024) Amoxicillin 500 mg tablet 2000 mg by mouth 1-2 hours prior to dental procedures (Patient not taking: Reported on 08/07/2024) No current facility-administered medications for this visit. HPI his main complaint today is that he has had significant suprascapular pain x3 days. He spent a day playing golf, then woke up the following morning with such pain. because he cannot take codeine, NSAIDs, Tylenol, he has only been applying ice packs. Yesterday, he went to a local ER and was told he had a muscle injury, prescribed muscle relaxant. He still has morphine IR 15mg tabs at home from a pr escription received last year; took a couple of half tabs and that took the edge off his pain whichhe describes as quite bad (he tolerates that medicine, despite codeine allergy). He has not called his PCP office, yet. he also inquired me about recently high blood glucose results, and if Eliquis could cause it. His said she looked online and there is information that Eliquis will at some point have to admit that it causes high blood sugar. I did tell them that such side-effect has not been described by RCTs. remains on apixaban 5mg BID denies any bleeding complications related to apixaban: no epistaxis, gingival hemorrhage, hematemesis, BRBPR, hematochezia, melena, hematuria, hemarthrosis, spontaneous soft tissue hematomas. Also denies easy bruising, headache, abdominal pain, back pain, groin pain. denies symptoms chest pain, exertional or resting dyspnea, Orthopnea, PND, cough, hemoptysis, near-syncope, syncope, palpitations, dizziness, LH. he says he has a torn muscle in the upper torso and has had pain. he has not had repeat liver imaging Objective: BP 150/80 (BP Site: Right Arm, BP Position: Sitting, BP Cuff Size: Regular Adult) Pulse 66 Ht 182.9 cm (6') Wt 79.4 kg (175 lb) SpO2 97% BMI 23.73 kg/m General: Alert and oriented, in no acute distress, pleasant mood. Skin: No ulcerations, No rashes. HEENT: sclera anicteric. No ecchymoses, visible hematoma in the right suprascapular area. No palpable mass in that muscle. MIld soft tissue swelling present compared to the left side. Cardiovascular: Heart has a regular rate and rhythm Musculoskeletal: No cyanosis Peripheral vascular: Radial pulses 2+/2 bilaterally. Lower extremities: no edema Labs Latest Ref Rng 07/14/2024 08/02/2024 WBC 3.70 - 11.00 k/uL 3.87 4.37 RBC 4.20 - 6.00 m/uL 4.29 4.31 Hemoglobin 13.0 - 17.0 g/dL 13.3 13.6 Hematocrit 39.0 - 51.0 % 39.5 39.3 MCV 80.0 - 100.0 fL 92.1 91.2 MCH 26.0 - 34.0 pg 31.0 31.6 MCHC 30.5 - 36.0 g/dL 33.7 34.6 RDW-CV 11.5 - 15.0 % 14.1 13.8 Platelet Count 150 - 400 k/uL 52 (L) 52 (L) MPV 9.0 - 12.7 fL 12.2 12.1 Neut% % 71.3 72.1 Abs Neut (ANC) 1.45 - 7.50 k/uL 2.76 3.15 Lymph% % 19.6 18.5 Abs Lymph 1.00 - 4.00 k/uL 0.76 (L) 0.81 (L) [place]% % 7.2 7.8 Abs [place] <0.87 k/uL 0.28 0.34 Eosin% % 1.6 1.4 Abs Eosin <0.46 k/uL 0.06 0.06 Baso% % 0.3 0.2 Abs Baso <0.11 k/uL <0.03 <0.03 Immature Gran % % 0.0 0.0 IMMATURE GRANS (ABS) <0.10 k/uL <0.03 <0.03 NRBC /100 WBC 0.0 0.0 Absolute nRBC <0.01 k/uL <0.01 <0.01 DTYPE Auto Auto Protein, Total 6.3 - 8.0 g/dL 7.5 Albumin 3.9 - 4.9 g/dL 4.0 Calcium 8.5 - 10.2 mg/dL 8.8 Bilirubin, Total 0.2 - 1.3 mg/dL 0.8 Alkaline Phosphatase 38 - 113 U/L 176 (H) AST 14 - 40 U/L 43 (H) ALT 10 - 54 U/L 30 Glucose 74 - 99 mg/dL 180 (H) BUN 9 - 24 mg/dL 22 Creatinine 0.73 - 1.22 mg/dL 1.20 Sodium 136 - 144 mmol/L 133 (L) Potassium 3.7 - 5.1 mmol/L 4.1 Chloride 98 - 107 mmol/L 99 CO2 22 - 30 mmol/L 20 (L) Anion Gap 8 - 15 mmol/L 14 eGFR >=60 mL/min/1.73m 63 Legend: (L) Low (H) High Imaging NA Assessment: PVT and SMV thrombosis 74 year old male with a 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 He had a repeat EGD at that time which showed small non-bleeding EV and he was discharged on apixaban. Pravin Mosquera: A His platelet count has been stable slightly above 50,000. Denies any bleeding or bruising. We discussed the plan moving forward. He would have an indication for AC for at least 6 months, butlikely indefinitely as long as the cirrhosis is present. We will continue apixaban 5mg BD for now. He was asked to reach out if he has any bleeding side effects. If platelet count drops below 50, will need to reassess therapeutic AC. Plan: - Continue apixaban 5mg twice-daily - Prescription for morphine IR 7.5mg (1/2 tab) every 6h for pain (3-day prescription, only) - Call PCP office today edy appointment - Counseled on bleeding side effects, he will reach out if he has side effects - Will reassess AC if platelet count is below 50 consistently - Schedule CTA A/P Follow-up with me in 3 months I personally spent 30 minutes in total time involved in the management and care of this patient. JOSE LANDRY M.D. documented in [facility] Telephone encounter Note * Telephone Encounter - Jaycee Ochoa RN - 07/25/2024 10:02 AM EDT spoke with patient and informed him i needed 2 forms signed for the doptelet program. He stated scan them into the mychart and he would get them back to me. they were scanned. Jaycee Ochoa RN July 25, 2024 10:03 AM [facility]05-06-[facility] Miscellaneous Notes* Telephone Encounter - Jaycee Ochoa RN - 07/25/2024 10:02 AM EDT spoke with patient and informed him i needed 2 forms signed for the doptelet program. He stated scan them into the mychart and he would get them back to me. they were scanned. Jaycee Ochoa RN July 25, 2024 10:03 AM documented in this encounterMer[facility] Telephone encounter Note * Telephone Encounter - Jaycee Ochoa RN - 07/24/2024 2:10 PM EDT called patient to inform him of the PAP for the Doptelet. left a message with call back number. Jaycee Ochoa RN July 24, 2024 2:11 PM [facility]05-05[facility] Miscellaneous Notes* Telephone Encounter - Jaycee Ochoa RN - 07/24/2024 2:10 PM EDT called patient to inform him of the PAP for the Doptelet. left a message with call back number. Jaycee Ochoa RN July 24, 2024 2:11 PM documented in this encounterMer[facility] History of Present illness Narrative* Davis May MD - 07/24/2024 1:44 PM EDT Patient presents with: 6 Month Exam HPI: Patient presents today for office visit for routine 6 month follow up. Since last here, has seen derm, endo, heme onc, and cardiology Follows with vascular med and gi. And nephrology as well. No itching, jaundice. No abd pain. No urinary issues. No new chest pain or shortness of breath. No icd discharges. Overall seems to be doing really pretty well Sugars are going up and down. Last A1c was 7.1 Uses his cgm No bloody or black stools. Note was copied and pasted, without alteration from: 05/12 ov: No further blood In the urine. Has seen urology. Has seen vascular med. Feels much better sine off of probenicid. Diabetes: Not checking glucose at home is following via lab tests. Following with endo. Overall doing very well. Derm: Has an irritation between 2 toes to check today. Sinus? Just had covid last month. Was clear. Now with congestion in the last four days. No fever orchills. No cough or shortness of breath. MEDICATIONS: Current Outpatient Medications Medication Sig avatrombopag (DOPTELET, 30 TAB PACK,) 20 mg tablets Take 1 tablet (20mg) by mouth every Wednesday, Wednesday, and Wednesday. Blood-Glucose Sensor (DEXCOM G7 SENSOR) wilmer CHANGE SENSOR EVERY 10 days. USE FOR CONTINOUS GLUCOSEMONITORING. INSULIN USE. E11.9 insulin degludec (TRESIBA FLEXTOUCH U-100) 100 unit/mL (3 mL) injection pen Inject 5 units once daily pantoprazole DR (PROTONIX) 40 mg tablet Take 1 tablet by mouth two times a day. mycophenolate Mofetil (CELLCEPT) 500 mg tablet Take 1 tablet by mouth twice daily glipiZIDE (GLUCOTROL XL) 5 mg 24 hr tablet Take 1 tablet by mouth once daily. carvedilol (COREG) 12.5 mg tablet Take 1 tablet by mouth two times a day with meals. cloNIDine HCl (CATAPRES) 0.1 mg tablet Take 1 tablet by mouth three times a day. amLODIPine (NORVASC) 5 mg tablet Take 1 tablet by mouth once daily. Fluorouracil (EFUDEX) 5 % cream Apply thin coat twice daily (morning and evening) for 2-4 weeks to affected area(s) on FACE until rash develops (red, raw, and potentially scale or scab). Do not rinse.Try to apply for AT LEAST 2 weeks. Once rash becomes very vigorous, can stop/discontinue treatment.Do not allow animals to lick medication. Wash hands after applying apixaban (ELIQUIS) 5 mg tab(s) Take 1 tablet by mouth two times a day. tacrolimus IR (PROGRAF) 1 mg capsule Take 1 capsule by mouth two times a day. OTC NUTRITIONAL SUPPLEMENT Take by mouth as directed. cholecalciferol, vitamin D3, (VITAMIN D3 ORAL) Take 1 tablet by mouth three times a week. Lactobacill 46-B.animal-inulin (PROBIOTIC-10, WITH INULIN,) 10 billion cell -100 mg cap Take 1 tablet by mouth once daily. Insulin [place], Disposable, (BD ULTRAFINE III MINI PEN) 31 gauge x 3/16 USE WITH INSULIN PENS 1 TIME(S) DAILY Amoxicillin 500 mg tablet 2000 mg by mouth 1-2 hours prior to dental procedures No current facility-administered medications for this visit. ALLERGIES: ALLERGIES Allergen Reactions Percocet [Oxycodone* Other: See Comments Pt states he doesn't have an allergy to percocet, but because of his reaction to Vicodin, he avoidsit. Vicodin [Hydrocodon* Anaphylaxis stopped breathing Hibiscus Hives, Shortness of Breath Valsartan Myalgia Cramps in legs, muscle pain Lidocaine Other: See Comments Dizziness, profuse sweating with application of topical lidocaine patch to abdomen; symptoms resolved with removal of patch. PAST MEDICAL HISTORY Diagnosis Date Arthritis of [...] at age 40's, 2 other uncles suddenly Social History Tobacco Use Smoking status: Former Types: Cigars Smokeless tobacco: Never Vaping Use Vaping status: Some Days Substances: THC, CBD Devices: Disposable Substance Use Topics Alcohol use: Not Currently Drug use: Yes Types: Marijuana Comment: medical marijuana Reviewed current medications, allergies, past medical history, surgical history, family history andsocial history today. REVIEW OF SYSTEMS Has occasional chronic cough. No shortness of breath All other reviewed and negative other than HPI. VITALS: BP 110/60 Pulse 61 Ht 182.9 cm (6') Wt 81.2 kg (179 lb) SpO2 96% BMI 24.28 kg/m Last 4 Encounter Wt Readings: Date: Wt: 07/14/2024 81 kg (178 lb 9.2 oz) 07/05/2024 82.6 kg (182 lb) 06/12/2024 78 kg (172 lb) 05/30/2024 78 kg (172 lb) PHYSICAL EXAMINATION: General appearance: Well appearing, [...] joint swelling, deformity, or tenderness ASSESSMENT/PLAN: 1. S/P ICD (internal cardiac defibrillator) procedure - ICD9: V45.02, ICD10: Z95.810 (primary diagnosis) - stable. 2. Primary hypertension - ICD9: 401.9, ICD10: I10 - Controlled - Continue current medications 3. Hyperlipidemia LDL goal <100 - ICD9: 272.4, ICD10: E78.5 - Controlled - Continue current medications 4. Hypertensive chronic kidney disease with stage 1 through stage 4 chronic kidney disease, or unspecified chronic kidney disease - ICD9: 403.90, ICD10: I12.9 - Controlled - Continue current medications 5. Cirrhosis of liver without ascites, unspecified hepatic cirrhosis type (HCC) - ICD9: 571.5, ICD10: K74.60 - stable. 6. Portal vein thrombosis - ICD9: 452, ICD10: I81 -stable. 7. Portal hypertension (HCC) - ICD9: 572.3, ICD10: K76.6 - doing well. 8. Autoimmune hepatitis (HCC) - ICD9: 571.42, ICD10: K75.4 - stable. 9. Stage 3a chronic kidney disease (HCC) - ICD9: 585.3, ICD10: N18.31 - stable. 10. Controlled type 2 diabetes mellitus without complication, with long-term current use of insulin(HCC) - ICD9: 250.00, V58.67, ICD10: E11.9, Z79.4 -stable. 11. Iron deficiency anemia due to chronic blood loss - ICD9: 280.0, ICD10: D50.0 - stable. 12. Thrombocytopenia - ICD9: 287.5, ICD10: D69.6 - doing well. Davis May MD documented in this encounterCleveland [id number] History of Present illness Narrative* Riddhi Brower RN - 07/24/2024 11:10 AM EDT Images from the original note were not included. [facility] Care Path Telephonic Outreach Provider Action/FYI Patient identified by Name and Date of . Discussed care with patient. Program Details Chronic Disease Management Status: Declined Patient Declined - After Starting Program Effective Dates: 05/31/2024 - 07/24/2024 Responsible Staff: Riddhi Brower RN Support and Services: None active Program Goals Targets Target Due Completed Completed By Outcome Intake assessments completed: ADLs, Fall Risk, SDOH 07/03/2024 05/31/2024 Riddhi Brower RN Complete Annual Medicare Wellness visit addressed 08/31/2024 05/31/2024 Riddhi Brower RN Complete/Scheduled Patient will schedule if its needed, has 2 follow up appointments with PCP for this year Annual Nephrology visit addressed 08/31/2024 05/31/2024 Riddhi Brower RN Complete/Scheduled Biannual PCP visit addressed 08/31/2024 05/31/2024 Riddhi Brower RN Complete/Scheduled CKD lab care gaps addressed 08/31/2024 05/31/2024 Riddhi Brower RN Complete/Scheduled Diabetes lab care gaps addressed 08/31/2024 05/31/2024 Riddhi Brower RN Complete/Scheduled HTN lab care gaps addressed 08/31/2024 05/31/2024 Riddhi Brower RN Complete/Scheduled Assessments No documentation this encounter Interventions No episode Riddhi Brower RN July 24, 2024 11:10 AM documented in this encounterMer[facility] Instructions* Patient Instructions* Marcos Farrell PA-C - 07/20/2024 9:52 AM EDT SKIN CARE AFTER CRYOSURGERY The skin's response to cryosurgery (freezing) can be mild to severe, depending on the depth of the freeze and location of the area treated. You may have minimal redness and swelling with little discomfort or significant discoloration and blistering with considerable discomfort. A burning sensation in the skin may last from several minutes to several hours after the procedure. Follow these instructions when caring for an area treated by cryosurgery: 1. Please clean the area every day with gentle soap and water. It is not necessary to cover the site with a bandage. However, it may be used for protection and it must be changed daily. Do not leave a soiled or wet bandage on the wound. 2. If you are experiencing discomfort you may use a cool compress, elevate the area or take over the counter pain relievers. 3. Apply Vaseline or Aquaphor daily to the site. This can help with itching, irritation, and discomfort. -The lesion may take 2-4 weeks to fully resolve. Depending on the severity of treatment and lesion treated, it may take longer. -DO NOT USE NEOSPORIN OR BACITRACIN as there is a fairly high incidence of allergic response to these products. -You may experience some mild discomfort, redness, swelling, and/or a clear discharge from the wound after your procedure. Severe pain, worsening swelling, and foul-smelling discharge from the site are NOT to be expected. If you have concerns about how your wounds are healing, please send your provider a [employer] message or call . COSMETIC CONSULT LIST: Dr. Orly Sanabria Phone number Main: [phone], [facility]: [phone] Dr. Pam Leung - [facility] and Jodi (cosmetic wrapper sorter) Phone number [place]: [phone], Phone number Main: [phone], Tanya Harris PA-C - [facility] and [place]odi (cosmetic dermatology PA) Phone number [place]: [phone] Phone number Main: [phone] Dr. Jen Valadez - [place] [facility] Dr. Jaz Andersen [facility] [place] Cosmetic Dermatology Physician: [facility] Resident Care Coordinator: [phone] documented in this encounterMercy [facility]05-01-2025 History of Present illness Narrative* Marcos Farrell PA-C - 07/20/2024 9:40 AM EDT ESTABLISHED PATIENT 07/20/2024 Last Visit in Dermatology: 05/11/2024 with Marcos Farrell PA-C Chief Complaint: Actinic Keratosis and Follow Up HPI: Mateus Yi is a 74 year old male. Patient presents with: Actinic Keratosis Follow Up # AK follow-up Location: face Symptoms/Course: Stable / Unchanged Current Treatment: none Past Treatment: Efudex as prescribed at [facility] (used for about 2 weeks) # LOC upper back Itching, denies pain or bleeding Right upper arm Scab, non healing Years Pertinent History: History of skin cancer: No History of atypical nevi: No History of blistering sunburns / tanning bed use: No Organ transplant / Immunosuppression: Yes, cellcept and tacrolimus Pacemaker / Defibrillator / Heart Valve Replacement: Yes, pacemaker and defibrillator / : N/A Family history of skin cancer: No 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 S/P ICD (internal cardiac defibrillator) procedure 03/09/2017 Sensorineural hearing loss Syncope Trochanteric bursitis of right hip Social History Tobacco Use Smoking status: Former Types: Cigars Smokeless tobacco: Never Vaping Use Vaping status: Some Days Substances: THC, CBD Devices: Disposable Substance Use Topics Alcohol use: Not Currently Drug use: Yes Types: Marijuana Comment: medical marijuana ALLERGIES Allergen Reactions Percocet [Oxycodone* Other: See Comments Pt states he doesn't have an allergy to percocet, but because of his reaction to Vicodin, he avoidsit. Vicodin [Hydrocodon* Anaphylaxis stopped breathing Hibiscus Hives, Shortness of Breath Valsartan Myalgia Cramps in legs, muscle pain Lidocaine Other: See Comments Dizziness, profuse sweating with application of topical lidocaine patch to abdomen; symptoms resolved with removal of patch. Current Outpatient Medications Medication Sig avatrombopag (DOPTELET, 30 TAB PACK,) 20 mg tablets Take 1 tablet (20mg) by mouth every Wednesday, Wednesday, and Wednesday. Blood-Glucose Sensor ([employer] G7 SENSOR) wilmer CHANGE SENSOR EVERY 10 days. USE FOR CONTINOUS GLUCOSEMONITORING. INSULIN USE. E11.9 insulin degludec (TRESIBA FLEXTOUCH U-100) 100 unit/mL (3 mL) injection pen Inject 5 units once daily pantoprazole DR (PROTONIX) 40 mg tablet Take 1 tablet by mouth two times a day. mycophenolate Mofetil (CELLCEPT) 500 mg tablet Take 1 tablet by mouth twice daily glipiZIDE (GLUCOTROL XL) 5 mg 24 hr tablet Take 1 tablet by mouth once daily. carvedilol (COREG) 12.5 mg tablet Take 1 tablet by mouth two times a day with meals. cloNIDine HCl (CATAPRES) 0.1 mg tablet Take 1 tablet by mouth three times a day. amLODIPine (NORVASC) 5 mg tablet Take 1 tablet by mouth once daily. Fluorouracil (EFUDEX) 5 % cream Apply thin coat twice daily (morning and evening) for 2-4 weeks to affected area(s) on FACE until rash develops (red, raw, and potentially scale or scab). Do not rinse.Try to apply for AT LEAST 2 weeks. Once rash becomes very vigorous, can stop/discontinue treatment.Do not allow animals to lick medication. Wash hands after applying apixaban (ELIQUIS) 5 mg tab(s) Take 1 tablet by mouth two times a day. tacrolimus IR (PROGRAF) 1 mg capsule Take 1 capsule by mouth two times a day. OTC NUTRITIONAL SUPPLEMENT Take by mouth as directed. cholecalciferol, vitamin D3, (VITAMIN D3 ORAL) Take 1 tablet by mouth three times a week. Lactobacill 46-B.animal-inulin (PROBIOTIC-10, WITH INULIN,) 10 billion cell -100 mg cap Take 1 tablet by mouth once daily. Insulin [place], Disposable, (BD ULTRAFINE III MINI PEN) 31 gauge x 3/16 USE WITH INSULIN PENS 1 TIME(S) DAILY Amoxicillin 500 mg tablet 2000 mg by mouth 1-2 hours prior to dental procedures ROS: Skin as above. PHYSICAL EXAM: Participation of a fellow, resident, medical student, or advanced practice provider student in performing the sensitive examination was discussed with the patient or authorized food service representative. The patient or authorized food service representative has agreed to proceed with the sensitive examination. [place] Skin Type: II The patient is a pleasant male in no apparent distress. Alert and oriented x 3. Appears well developed, well nourished, and in otherwise good health. A skin exam of the face, back, and right upper arm was performed. IMPRESSION Left Forehead, Right Shoulder - Anterior Erythematous papule(s) with gritty scale Nose Telangiectasia throughout nasal bridge and cheeks Left Upper Back Skin unremarkable on exam ASSESSMENT & PLAN ACTINIC KERATOSIS (2) Left Forehead, Right Shoulder - Anterior -Discussed etiology and possibility of AK transformation to SCC. -Discussed treatment options and the risks and benefits of each including LN2, field treatment with5-fluorouracil (efudex), and photodynamic therapy Plan: -Cryosurgery of pre-malignant lesion(s) today in office -Discussed side effects including expected redness, crusting and irritation; advised to discontinueand contact office if skin becomes painful or ulcerated. -Advised patient to avoid sun exposure, wear sun protective clothing and sunscreen. -Risks, benefits, and alternatives reviewed with patient. CRYOTHERAPY SKIN LESION - Left Forehead, Right Shoulder - Anterior Complexity: simple Destruction method: cryotherapy Informed consent: discussed and consent obtained Timeout: patient name, date of , surgical site, and procedure verified Lesion destroyed using liquid nitrogen: Yes Cryotherapy cycles: 2 Outcome: patient tolerated procedure well with no complications Post-procedure details: wound care instructions given Related Medications Fluorouracil (EFUDEX) 5 % cream Apply thin coat twice daily (morning and evening) for 2-4 weeks to affected area(s) on FACE until rash develops (red, raw, and potentially scale or scab). Do not rinse.Try to apply for AT LEAST 2 weeks. Once rash becomes very vigorous, can stop/discontinue treatment. Do not allow animals to lick medication. Wash hands after applying TELANGIECTASIA Nose Medical Complexity: Chronic, not at treatment goal -Reassured and educated, management options discussed including observation vs. Laser removal -Recommend laser treatment with [facility]/Cosmetic consult. Discussed associated out of pocket cosmeticcost PRURITUS Left Upper Back - Discussed likely etiology and management options - ANTI-ITCH CREAMS over the counter such as Sarna, CeraVe Anti-itch, Dermeleve - Recommend gentle skin care with fragrance free products such as Vanicream, Cetaphil, CeraVe - Avoid scratching or picking at the skin Follow Up: full body skin exam Return PRN or sooner for questions and concerns. Attestation: Intake completed by: Hawa Barnes RN The documentation for this note was completed by Marcos Farrell PA-C on July 20, 2024 I agree with the Chief Complaint, ROS, and Past Histories independently gathered by the clinical print support specialist and the remaining scribed note accurately describes my personal service to the patient. Marcos Farrell PA-C July 20, 2024 10:16 AM Medical Decision Making: Problems: Moderate: 1+ chronic illnesses with change Risk: Moderate: Moderate risk from testing/treatment Medical Decision Making Level: 4 - Moderate [facility] History of Present illness Narrative* Arden Aguilera LPN - 07/14/2024 2:31 PM EDT Additional intake questions: Has the patient had fever, nausea, vomiting, diarrhea, constipation, fatigue for > 1 week? Yes, fatigue and Provider Notified Does the patient have a decreased appetite? No Does patient have any new or increased numbness or tingling of extremities? No Is patient interested in fertility information? NA Does patient need any prescription refills? No Does patient have an advanced directive in place? Yes, copies are in Epic Electronically Signed By: ARDEN AGUILERA LPN * Liseth Ortiz DO - 07/14/2024 2:30 PM EDT Images from the original note were not included. Hematologic Oncology and Blood Disorders PATIENT NAME: Mateus Yi DATE OF : 1950 ATTENDING STAFF: Fransisca Ortiz DO DATE OF SERVICE: July 15, 2023 REASON FOR VISIT: Scheduled follow up for Iron Deficiency, Chronic ITP INTERVAL HISTORY: Mateus returns for scheduled follow up. He is doing well overall. 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 He report no issues with bleeding since starting on Eliquis. HISTORY OF PRESENT ILLNESS: This patient was seen initially as a self referral to hematology for consultation regarding iron deficiency anemia and thrombocytopenia. History was obtained from the patient and from review of the patient s old medical records. 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 He is currently treated with tacrolimus and cellcept for the autoimmune hepatitis. He was diagnosed with autoimmune hepatitis in 2019and treated with high dose steroids at that time. He was admitted at [facility] 03/27/23 with upper GI bleed and had an EGD with esophageal variceal bleeding that was banded. REVIEW OF SYSTEMS: Review of Systems Constitutional: Positive for fatigue. Negative for appetite change. HENT: Negative for trouble swallowing. Respiratory: Positive for shortness of breath (with exertion). Gastrointestinal: Negative for blood in stool. Musculoskeletal: Positive for arthralgias and back pain. Skin: Negative for rash. Neurological: Positive for numbness. Psychiatric/Behavioral: Negative for confusion and depression. The patient is not nervous/anxious. The remainder of the review of systems is negative. ALLERGIES: ALLERGIES Allergen Reactions Percocet [Oxycodone* Other: See Comments Pt states he doesn't have an allergy to percocet, but because of his reaction to Vicodin, he avoidsit. Vicodin [Hydrocodon* Anaphylaxis stopped breathing Hibiscus Hives, Shortness of Breath Valsartan Myalgia Cramps in legs, muscle pain Lidocaine Other: See Comments Dizziness, profuse sweating with application of topical lidocaine patch to abdomen; symptoms resolved with removal of patch. MEDICATIONS: Medications were reviewed and updated. Current Outpatient Medications on File Prior to Visit Medication Sig OTC NUTRITIONAL SUPPLEMENT Take by mouth as directed. OTC NUTRITIONAL SUPPLEMENT Take 1 tablet by mouth once daily. Take by mouth as directed. glipiZIDE (GLUCOTROL XL) 5 mg 24 hr tablet Take 1 tablet by mouth once daily carvedilol (COREG) 12.5 mg tablet Take 1 tablet by mouth two times a day with meals. cholecalciferol, vitamin D3, (VITAMIN D3 ORAL) Take 1 tablet by mouth three times a week. Lactobacill 46-B.animal-inulin (PROBIOTIC-10, WITH INULIN,) 10 billion cell -100 mg cap Take 1 tablet by mouth once daily. probenecid 500 mg tablet Take 1 tablet by mouth two times a day. amLODIPine (NORVASC) 5 mg tablet Take 1 tablet by mouth once daily. mycophenolate Mofetil (CELLCEPT) 500 mg tablet Take 1 tablet by mouth twice daily triamcinolone (KENALOG) 0.025 % ointment Apply to affected area 2 times daily for 1-2 weeks after PDT pantoprazole DR (PROTONIX) 40 mg tablet Take 1 tablet by mouth two times a day. cloNIDine HCl (CATAPRES) 0.1 mg tablet Take 1.5 tablets by mouth two times a day. insulin degludec (TRESIBA FLEXTOUCH U-100) 100 unit/mL (3 mL) injection pen Inject 5 units once daily (Patient not taking: Reported on 06/18/2023) Insulin [place], Disposable, (BD ULTRAFINE III MINI PEN) 31 gauge x 3/16 USE WITH INSULIN PENS 1 TIME(S) DAILY Blood-Glucose Sensor (inEarthCOM G7 SENSOR) wilmer CHANGE SENSOR EVERY 10 days. USE FOR CONTINOUS GLUCOSEMONITORING. INSULIN USE. E11.9 tacrolimus IR (PROGRAF) 1 mg capsule Take 1 capsule by mouth two times a day. Amoxicillin 500 mg tablet 2000 mg by mouth 1-2 hours prior to dental procedures metroNIDAZOLE 1 % gel Apply 1 application to affected area once daily. Location: face (Patient not taking: Reported on 06/22/2023) Current Facility-Administered Medications on File Prior to Visit Medication sodium chloride 0.9 % (flush) 10 mL (BD POSIFLUSH) PREFERRED PHARMACY: e- [facility] [place] [address] - [address] [facility] - [phone] [place] [address] e- [id number] [place] [address] - [address] - [phone] [facility] [address] [address] [facility] [address] e- [facility] [id number] - [place] [address] - [address] - [phone] [facility] [address] [facility] [address] [facility] [id number] [id number] PAST MEDICAL HISTORY Diagnosis Date Arthritis of [...] at age 40's, 2 other uncles suddenly Social History Tobacco Use Smoking status: Former Types: Cigars Smokeless tobacco: Never Vaping Use Vaping status: Some Days Substances: THC, CBD Devices: Disposable Substance Use Topics Alcohol use: Not Currently Drug use: Yes Types: Marijuana Comment: medical marijuana PHYSICAL EXAM: There were no vitals filed for this visit. Physical Exam Constitutional: Appearance: Normal appearance. He is normal weight. HENT: Head: Normocephalic and atraumatic. Eyes: Extraocular Movements: Extraocular movements intact. Conjunctiva/sclera: Conjunctivae normal. Pulmonary: Effort: Pulmonary effort is normal. Musculoskeletal: Cervical back: Normal range of motion. Right lower leg: No edema. Left lower leg: No edema. Skin: General: Skin is warm and dry. Coloration: Skin is not jaundiced or pale. Findings: No bruising, erythema or rash. Neurological: General: No focal deficit present. Mental Status: He is alert and oriented to person, place, and time. Mental status is at baseline. Motor: No weakness. Gait: Gait normal. Psychiatric: Mood and Affect: Mood normal. Behavior: Behavior normal. Thought Content: Thought content normal. Judgment: Judgment normal. DATA REVIEW: I personally reviewed the patient s labs and medical record from [facility]. LAB DATA: Basic Labs: Hemoglobin Date Value Ref Range Status 07/04/2024 13.5 13.0 - 17.0 g/dL Final 06/05/2024 14.1 13.0 - 17.0 g/dL Final 04/28/2024 13.5 13.0 - 17.0 g/dL Final 04/14/2024 13.8 13.0 - 17.0 g/dL Final 03/31/2024 14.0 13.0 - 17.0 g/dL Final Hematocrit Date Value Ref Range Status 07/04/2024 39.0 39.0 - 51.0 % Final 06/05/2024 41.1 39.0 - 51.0 % Final 04/28/2024 39.8 39.0 - 51.0 % Final 04/14/2024 41.4 39.0 - 51.0 % Final 03/31/2024 40.5 39.0 - 51.0 % Final MCV Date Value Ref Range Status 07/04/2024 90.7 80.0 - 100.0 fL Final 06/05/2024 90.9 80.0 - 100.0 fL Final 04/28/2024 91.7 80.0 - 100.0 fL Final 04/14/2024 93.2 80.0 - 100.0 fL Final 03/31/2024 92.3 80.0 - 100.0 fL Final Retic % Date Value Ref Range Status 11/05/2020 1.2 0.4 - 2.0 % Final WBC Date Value Ref Range Status 07/04/2024 4.55 3.70 - 11.00 k/uL Final 06/05/2024 5.32 3.70 - 11.00 k/uL Final 04/28/2024 4.51 3.70 - 11.00 k/uL Final 04/14/2024 4.14 3.70 - 11.00 k/uL Final 03/31/2024 3.81 3.70 - 11.00 k/uL Final Abs Neut Date Value Ref Range Status 06/05/2024 3.87 1.45 - 7.50 k/uL Final 04/28/2024 3.23 1.45 - 7.50 k/uL Final 04/14/2024 2.86 1.45 - 7.50 k/uL Final 03/29/2024 2.66 1.45 - 7.50 k/uL Final 03/23/2024 3.93 1.45 - 7.50 k/uL Final Platelet Count Date Value Ref Range Status 07/04/2024 58 (L) 150 - 400 k/uL Final Comment: No clot detected. 06/05/2024 81 (L) 150 - 400 k/uL Final Comment: No clot detected. 04/28/2024 59 (L) 150 - 400 k/uL Final Comment: No clot detected. 04/14/2024 57 (L) 150 - 400 k/uL Final Comment: Platelet count confirmed by manual review of peripheral blood smear. Results checked and verified.No clot detected. 03/31/2024 51 (L) 150 - 400 k/uL Final Creatinine Date Value Ref Range Status 07/04/2024 1.15 0.73 - 1.22 mg/dL Final 06/05/2024 1.24 (H) 0.73 - 1.22 mg/dL Final 05/18/2024 1.27 (H) 0.73 - 1.22 mg/dL Final 04/28/2024 1.24 (H) 0.73 - 1.22 mg/dL Final 04/14/2024 1.39 (H) 0.73 - 1.22 mg/dL Final BUN Date Value Ref Range Status 07/04/2024 22 9 - 24 mg/dL Final 06/05/2024 27 (H) 9 - 24 mg/dL Final 05/18/2024 30 (H) 9 - 24 mg/dL Final 04/28/2024 26 (H) 9 - 24 mg/dL Final 04/14/2024 26 (H) 9 - 24 mg/dL Final AST Date Value Ref Range Status 04/14/2024 52 (H) 14 - 40 U/L Final 03/31/2024 48 (H) 14 - 40 U/L Final 03/30/2024 51 (H) 14 - 40 U/L Final 03/29/2024 47 (H) 14 - 40 U/L Final 03/23/2024 57 (H) 14 - 40 U/L Final ALT Date Value Ref Range Status 04/14/2024 39 10 - 54 U/L Final 03/31/2024 37 10 - 54 U/L Final 03/30/2024 40 10 - 54 U/L Final 03/29/2024 37 10 - 54 U/L Final 03/23/2024 42 10 - 54 U/L Final Hemostasis Labs: INR Date Value Ref Range Status 03/31/2024 1.4 (H) 0.9 - 1.3 Final Comment: Vitamin K Antagonist (VKA) Therapeutic Range: INR 2 to 3 (Target INR of 2.5) Note: For patients treated with VKA drugs, such as warfarin, the [employer] 2012 Guideline recommends a therapeutic INR range of 2 to 3 (target INR of 2.5). This recommendation includes high-risk patients with antiphospholipid syndrome with previous arterial or venous thromboembolism, current-generation mechanical or bioprosthetic aortic heart valve replacement. Note: Patients with mechanical aortic valve replacement and additional risk factors for thromboembolic events (atrial fibrillation, previous thromboembolism, LV dysfunction, hypercoagulable conditions) or an older generation mechanical AVR (i.e., ball in-Cage) or any mechanical MVR should have a INR therapeutic range of 2.5 to 3.5 (target INR of 3). Guyatt GH, et al. Chest 2012, 141:7S-47S gary Martines RA. [facility] 2017, 70: [phone] 03/29/2024 1.3 0.9 - 1.3 Final Comment: Vitamin K Antagonist (VKA) Therapeutic Range: INR 2 to 3 (Target INR of 2.5) Note: For patients treated with VKA drugs, such as warfarin, the [employer] 2012 Guideline recommends a therapeutic INR range of 2 to 3 (target INR of 2.5). This recommendation includes high-risk patients with antiphospholipid syndrome with previous arterial or venous thromboembolism, current-generation mechanical or bioprosthetic aortic heart valve replacement. Note: Patients with mechanical aortic valve replacement and additional risk factors for thromboembolic events (atrial fibrillation, previous thromboembolism, LV dysfunction, hypercoagulable conditions) or an older generation mechanical AVR (i.e., ball in-Cage) or any mechanical MVR should have a INR therapeutic range of 2.5 to 3.5 (target INR of 3). gary Stovall. Chest 2012, 141:7S-47S Bobbi ARZATE et lynn. [facility] 2017, 70: [phone] 03/23/2024 1.3 0.9 - 1.3 Final Comment: Vitamin K Antagonist (VKA) Therapeutic Range: INR 2 to 3 (Target INR of 2.5) Note: For patients treated with VKA drugs, such as warfarin, the [employer] 2012 Guideline recommends a therapeutic INR range of 2 to 3 (target INR of 2.5). This recommendation includes high-risk patients with antiphospholipid syndrome with previous arterial or venous thromboembolism, current-generation mechanical or bioprosthetic aortic heart valve replacement. Note: Patients with mechanical aortic valve replacement and additional risk factors for thromboembolic events (atrial fibrillation, previous thromboembolism, LV dysfunction, hypercoagulable conditions) or an older generation mechanical AVR (i.e., ball in-Cage) or any mechanical MVR should have a INR therapeutic range of 2.5 to 3.5 (target INR of 3). gary Stovall. Chest 2012, 141:7S-47S gary Martines RA. [facility] 2017, 70: [phone] APTT Date Value Ref Range Status 03/30/2024 55.8 (H) 23.0 - 32.4 sec Final 03/30/2024 125.5 (H) 23.0 - 32.4 sec Final Comment: Result rechecked. Sample checked for clot. 03/30/2024 >139.0 (H) 23.0 - 32.4 sec Final Comment: Result rechecked. Sample checked for clot. Thrombosis Labs: No results found for: CRP, LRKJWM1ICD, FACTOR, HYPCQ, PT2Q, PROTSINTL, PROTCINTL, LUPUS, LACININTL, DRVVT, PNOY6YTKC, VAGT3IQTV, ACARDINTL, DDMER, PNHPI, PNHFL, JAK2SP, JAK2E Anemia Labs: Ferritin Date Value Ref Range Status 07/04/2024 79.4 30.3 - 565.7 ng/mL Final 06/05/2024 139.0 30.3 - 565.7 ng/mL Final 04/28/2024 89.7 30.3 - 565.7 ng/mL Final Iron Date Value Ref Range Status 07/04/2024 59 41 - 186 ug/dL Final 06/05/2024 108 41 - 186 ug/dL Final 04/28/2024 103 41 - 186 ug/dL Final Copper Date Value Ref Range Status 07/09/2023 98 70 - 140 ug/dL Final Comment: This test was developed and its performance characteristics determined by [facility]'s [facility] [place] ([facility]). It has not been cleared or approved by the FDA. -[facility] is regulated under CLIA as qualified to perform high-complexity testing. Thistest is used for clinical purposes. It should not be regarded as investigational or for research. Vitamin B12 Date Value Ref Range Status 07/09/2023 890 232 - 1,245 pg/mL Final 11/05/2020 750 232 - 1,245 pg/mL Final 07/05/2020 563 232 - 1,245 pg/mL Final Folate Date Value Ref Range Status 07/09/2023 17.3 >4.7 ng/mL Final 11/05/2020 15.3 >4.7 ng/mL Final 07/05/2020 8.7 >4.7 ng/mL Final TSH Date Value Ref Range Status 07/05/2020 1.540 0.270 - 4.200 uU/mL Final 06/06/2018 0.753 0.400 - 5.500 uU/mL Final Hemolysis/TMA Labs: Retic % Date Value Ref Range Status 11/05/2020 1.2 0.4 - 2.0 % Final Neutropenia Labs: Folate Date Value Ref Range Status 07/09/2023 17.3 >4.7 ng/mL Final Vitamin B12 Date Value Ref Range Status 07/09/2023 890 232 - 1,245 pg/mL Final Copper Date Value Ref Range Status 07/09/2023 98 70 - 140 ug/dL Final Comment: This test was developed and its performance characteristics determined by [facility]'s [facility] Pathology and Laboratory Medicine [place] ([facility]). It has not been cleared or approved by the FDA. -[facility] is regulated under CLIA as qualified to perform high-complexity testing. Thistest is used for clinical purposes. It should not be regarded as investigational or for research. Thrombocytopenia Labs: No results found for: PF4COM, SERHEP, PLTCO, PLTAS, PLA1AG, HIV, EBVDQ Monoclonal Gammopathy Labs: Hemoglobin Date Value Ref Range Status 07/04/2024 13.5 13.0 - 17.0 g/dL Final 06/05/2024 14.1 13.0 - 17.0 g/dL Final 04/28/2024 13.5 13.0 - 17.0 g/dL Final Creatinine Date Value Ref Range Status 07/04/2024 1.15 0.73 - 1.22 mg/dL Final 06/05/2024 1.24 (H) 0.73 - 1.22 mg/dL Final 05/18/2024 1.27 (H) 0.73 - 1.22 mg/dL Final Calcium, Total Date Value Ref Range Status 07/04/2024 9.0 8.5 - 10.2 mg/dL Final 06/05/2024 8.9 8.5 - 10.2 mg/dL Final 05/18/2024 8.9 8.5 - 10.2 mg/dL Final MPN Labs: No results found for: JAK2SP, JAK2E, JAK2I, CALRM, MPLMU, MPNFMR, MPNRES, MPNMRS BM BIOPSY: N/A IMAGING DATA: US Liver 02/16/23 PATENT HEPATIC VASCULATURE WITH APPROPRIATELY DIRECTED FLOW. CIRRHOTIC LIVER MORPHOLOGY WITH STIGMATA OF PORTAL HYPERTENSION. SLIGHT INTERVAL INCREASE IN SIZE OF PREVIOUSLY DESCRIBED HYPOECHOIC LESION IN THE RIGHT HEPATIC LOBE. CONSIDER EVALUATION WITH CONTRAST ENHANCED LIVER MRI. STABLE SPLENOMEGALY. 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 He is currently treated with tacrolimus and cellcept for the autoimmune hepatitis. He was diagnosed with autoimmune hepatitis in 2019 and treated with high dose steroids at that time. #Iron Deficiency Anemia Due to Chronic GI Bleeding: He was admitted at [facility] 03/27/23 with upper GIbleed and had an EGD with esophageal variceal bleeding that was banded. He remains on Protonix 40 mg bid, started 04/16/23. He has history of iron deficiency in 2018 and was briefly on oral iron. He has repeat labs from 05/21/23 consistent with iron deficiency anemia with a hemoglobin of 11.0 g/dL. He received 200 mg IV iron sucrose on 06/23/23, 06/25/23, 06/28/23, 06/30/23 and 07/02/23. Last EGD 07/06/23 with a non-bleeding grade I esophageal varices and portal hypertensive gastropathy. -Follow through with recommended annual EGD for surveillance -Continue with once a month CBC, iron studies #Chronic Immune-Thrombocytopenia: I discussed that with his known autoimmune hepatitis it is possible to have multiple autoimmune processes and that could include immune mediated thrombocytopenia (ITP). I discussed that an elevated mean platelet volume and immature platelet fraction could be indicative of either ongoing bleeding or immune destruction of the platelets. He does have cirrhosis and splenomegaly that are known drivers of thrombocytopenia, but I want to also assess for additional etiologies that would be managed differently. The MPV has been elevated previously and he remains iron deficient--so I first want to replace his iron and monitor the blood counts and immature platelet fraction. If these remain elevated without evidence of bleeding then we could discuss use of either a TPO-agonist like Nplate or Doptelet +/- changes to his current immunosuppressants to treat presumed ITP. 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 He was started on Eliquis 5 mg bid. He saw vascular medicine on 05/10/24 with plans for long-term anticoagulation and repeat CT scan in July 2024. 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 MGUS occurs in about 3% of the population over the age of 50 and is usually an incidental finding during a patient s work-up for another finding. While MGUS itself usually requires no specific therapy, in general, patients with MGUS may progress to MM at a rate of approximately 1% per year. There exists a subset of MGUS patients with increased-risk factors including 1) M-spike >1.5 g/dL, 2) non-IgG MGUS (i.e. IgA, IgM, IgD) and 3) abnormal serum free light chain ratio. The presence of all 3 is categorized as high-risk MGUS, 2 factors high-intermediate and 1 factor low-intermediate risk. For these reasons routine follow-up is recommended at least annually. -Monitor monoclonal labs once a year RTC in 3 months with labs one week prior The patient's questions were answered. Total time 40 minutes, this included time preparing for the visit by reviewing the patient's chart and the time spent during the visit counseling and coordinating care. Fransisca Ortiz DO Staff Physician, [facility] Hematologic Oncology and Blood Disorders Program [facility] cell: [phone] [facility] [address] [place] [address] [facility] [address] [place] [address] documented in this encounterMer[facility]04-16-2025 Telephone encounter Note * Telephone Encounter - Karina Guthrie MA - 07/05/2024 10:12 AM EDT Faxed [facility] [place] [facility] [place] dexcom [place]. Epic confirmation received. Karina Guthrie MA [facility]04-16-2025 Miscellaneous Notes* Telephone Encounter - Karina Guthrie MA - 07/05/2024 10:12 AM EDT Faxed RUSTAM notes to Maria Alejandra at [facility] [place] dexcom sensor order. Epic confirmation received. Karina Guthrie MA documented in this encounterMercy [facility]04-16-[facility]25 History of Present illness Narrative* Evelin Reich APRN.UTILIZATION REVIEWER - 07/05/2024 9:45 AM EDT OFFICE VISIT PROGRESS NOTE CC Mateus Yi is a 74 year old who presents today for blood sugar review, insulin dose adjust. HPI Diagnosed with diabetes mellitus type II, ~ 05/2018 Last endocrine OV 10/20/2023 Some elements copied from my note 10/20/2023 which have been updated where appropriate, and all reflect current medical decision making from date of this visit. Had labs yesterday with nephrology No A1c drawn Follows regularly with transplant team Taking probiotics Eats whatever he wants Will have some sweets at times Still 'addicted to sugar but I do less of it CURRENT DM MEDS GLIPIZIDE 5 mg 1 tab daily TRESIBA 5 units daily SMBG Type of Monitor: Other DEXCOM CGM - RAN OUT OF SENSORS, was not able to use to monitor Values over past week: Highest ; Lowest Hypoglycemia: no Diet: as per above Exercise: lift weights, treadmill, several times per week DM REVIEW OF SYSTEMS Last Eye Exam : discontinued patient preference Last Podiatry Exam: discontinued patient preference Cardiorespiratory: negative, denies chest pain, pressure Claudication: no Dyslipidemia: No High Blood Pressure: Yes, controlled on medication CURRENT LABS No A1C was available for appt - patient had recent labs with no A1C ordered Recent Labs 06/06/18 1633 07/18/18 0900 07/05/20 0937 07/05/20 0939 11/05/20 0909 12/25/20 0801 03/19/23 0956 04/16/23 1003 07/09/23 1219 08/30/23 0942 10/12/23 0745 11/30/23 1622 03/23/24 0859 03/29/24 1916 03/30/24 0552 03/30/24 1144 03/31/24 0413 04/14/24 1508 04/28/24 1350 04/28/24 1353 05/18/24 1057 06/05/24 1120 06/05/24 1128 ALT -- < > -- < > 24 < > -- < > 24 40 25 -- 42 < > 40 -- 37 39 -- -- -- -- -- AST -- < > -- < > 40 < > -- < > 35 43* 41* -- 57* < > 51* -- 48* 52* -- -- -- -- -- UCRR -- < > -- -- -- < > 195.9 -- -- 58.3 -- -- -- -- -- 59.5 59.5 -- -- 53.0 -- -- -- 98.4 UALBR -- < > -- -- -- < > 699.2 -- -- 86.5 -- -- -- -- -- 279.1 -- -- -- -- -- -- -- UALBCR -- < > -- -- -- < > 357* -- -- 148* -- -- -- -- -- 469* -- -- -- -- -- -- -- TSH 0.753 -- 1.540 -- -- -- -- -- -- -- -- -- -- -- -- -- -- -- -- -- -- -- -- TPROT -- < > -- < > 7.4 < > -- < > 7.4 7.8 7.1 7.5 -- 7.8 < > 6.8 -- 7.3 7.3 -- -- -- -- -- ALB -- < > -- < > 4.0 < > -- < > 4.1 3.8* 4.4 -- 4.2 < > 3.6* -- 3.8*4.0 -- 4.0 4.1 3.9 -- CA 9.2 < > -- < > -- < > -- < > 8.9 9.0 8.7 -- 9.1 < > 8.5 -- 8.9 8.7-- 9.1 8.9 8.9 -- TBILI -- < > -- < > 0.8 < > -- < > 0.6 0.7 0.5 -- 1.0 < > 0.8 -- 0.7 0.8 -- -- -- -- -- ALKPHOS -- < > -- < > 152* < > -- < > 164* 180* 186* -- 234* < > 187*-- 200* 198* -- -- -- -- -- GLUC 98 < > -- < > -- < > -- < > 124* 101* 121* -- 124* < > 76 -- 106* 110* -- 160* 102* 166* -- BUN 18 < > -- < > -- < > -- < > 25* 28* 30* -- 24 < > 27* -- 23 26* -- 26* 30* 27* -- CREAT 1.16 < > -- < > -- < > -- < > 1.35* 1.32* 1.39* -- 1.30* < > 1.32* -- 1.28* 1.39* -- 1.24* 1.27* 1.24* -- NA 139 < > -- < > -- < > -- < > 139 138 134* -- 137 < > 137 -- 137 135* -- 137 137 134* -- K 4.5 < > -- < > -- < > -- < > 4.3 4.2 4.0 -- 4.1 < > 3.6* -- 4.0 4.0-- 4.7 4.5 4.4 -- CHLOR 98 < > -- < > -- < > -- < > 105 104 101 -- 98 < > 103 -- 103 97* -- 101 102 99 -- CO2 30 < > -- < > -- < > -- < > 23 25 24 -- 27 < > 23 -- 23 24 -- 27 23 24 -- ANION 11 < > -- < > -- < > -- < > 11 9 9 -- 12 < > 11 -- 11 14 -- 9 12 11 -- EGFROTH >60 < > -- < > -- < > -- < > 55* 56* 53* -- 57* < > 56* --58* 53* -- 60 59* 60 -- HBA1C -- < > -- < > -- < > -- -- -- 6.1* 6.6* 6.6* 6.3* -- -- -- -- -- -- -- -- -- -- B12 -- -- 563 -- 750 -- -- -- 890 -- -- -- -- -- -- -- -- -- -- -- -- -- -- < > = values in this interval not displayed. Recent Labs 07/05/20 0937 10/18/20 0806 11/05/20 0909 12/25/20 0802 03/04/23 1003 03/19/23 0951 05/21/23 0803 07/09/23 1219 08/30/23 0942 10/12/23 0745 11/30/23 1622 03/23/24 0859 05/19/24 1110 TG -- -- -- < > 87 < > 77 -- 62 -- -- -- 76 CHOL -- -- -- < > 147 < > 169 -- 156 -- -- -- 187 HDL -- -- -- < > 54 < > 59 -- 65 -- -- -- 83 VLDL -- -- -- < > 17 < > 15 -- 12 -- -- -- 15 LDL -- -- -- < > 76 < > 95 -- 79 -- -- -- 89 FASTTIME -- -- -- < > 8 -- 12 -- -- -- -- -- 12 TCHDL -- -- -- < > 2.72 < > 2.86 -- 2.40 -- -- -- 2.25 LDLHDL -- -- -- < > 1.41 < > 1.61 -- 1.22 -- -- -- 1.07 NONHDL -- -- -- < > 93 < > 110 -- 91 -- -- -- 104 HBA1C -- < > -- < > -- < > -- -- 6.1* 6.6* 6.6* 6.3* -- HBA0 -- < > -- < > -- < > -- -- 128 143 143 134 -- B12 563 -- 750 -- -- -- -- 890 -- -- -- -- -- < > = values in this interval not displayed. PAST MEDICAL HISTORY Diagnosis Date Arthritis of [...] at age 40's, 2 other uncles suddenly Social History Tobacco Use Smoking status: Former Types: Cigars Smokeless tobacco: Never Vaping Use Vaping status: Some Days Substances: THC, CBD Devices: Disposable Substance Use Topics Alcohol use: Not Currently Drug use: Yes Types: Marijuana Comment: medical marijuana Current Outpatient Medications Medication Sig carvedilol (COREG) 12.5 mg tablet Take 1 tablet by mouth two times a day with meals. cloNIDine HCl (CATAPRES) 0.1 mg tablet Take 1 tablet by mouth three times a day. amLODIPine (NORVASC) 5 mg tablet Take 1 tablet by mouth once daily. Fluorouracil (EFUDEX) 5 % cream Apply thin coat twice daily (morning and evening) for 2-4 weeks to affected area(s) on FACE until rash develops (red, raw, and potentially scale or scab). Do not rinse.Try to apply for AT LEAST 2 weeks. Once rash becomes very vigorous, can stop/discontinue treatment.Do not allow animals to lick medication. Wash hands after applying apixaban (ELIQUIS) 5 mg tab(s) Take 1 tablet by mouth two times a day. tacrolimus IR (PROGRAF) 1 mg capsule Take 1 capsule by mouth two times a day. mycophenolate Mofetil (CELLCEPT) 500 mg tablet Take 1 tablet by mouth twice daily glipiZIDE (GLUCOTROL XL) 5 mg 24 hr tablet Take 1 tablet by mouth once daily. Blood-Glucose Sensor ([employer] G7 SENSOR) wilmer CHANGE SENSOR EVERY 10 days. USE FOR CONTINOUS GLUCOSEMONITORING. INSULIN USE. E11.9 OTC NUTRITIONAL SUPPLEMENT Take by mouth as directed. cholecalciferol, vitamin D3, (VITAMIN D3 ORAL) Take 1 tablet by mouth three times a week. Lactobacill 46-B.animal-inulin (PROBIOTIC-10, WITH INULIN,) 10 billion cell -100 mg cap Take 1 tablet by mouth once daily. insulin degludec (TRESIBA FLEXTOUCH U-100) 100 unit/mL (3 mL) injection pen Inject 5 units once daily Insulin [place], Disposable, (BD ULTRAFINE III MINI PEN) 31 gauge x 3/16 USE WITH INSULIN PENS 1 TIME(S) DAILY Amoxicillin 500 mg tablet 2000 mg by mouth 1-2 hours prior to dental procedures No current facility-administered medications for this visit. ALLERGIES Allergen Reactions Percocet [Oxycodone* Other: See Comments Pt states he doesn't have an allergy to percocet, but because of his reaction to Vicodin, he avoidsit. Vicodin [Hydrocodon* Anaphylaxis stopped breathing Hibiscus Hives, Shortness of Breath Valsartan Myalgia Cramps in legs, muscle pain Lidocaine Other: See Comments Dizziness, profuse sweating with application of topical lidocaine patch to abdomen; symptoms resolved with removal of patch. REVIEW OF SYSTEMS - POSITIVES IN BOLD [...] hypertension, CHF or palpitations PHYSICAL EXAMINATION: BP 136/84 (BP Site: Right Arm, BP Position: Sitting, BP Cuff Size: Regular Adult) Pulse 68 Temp37.2 C (98.9 F) (Temporal Artery) Wt 82.6 kg (182 lb) SpO2 96% BMI 24.68 kg/m GENERAL: alert and appropriate, in no distress and well-hydrated, well nourished SKIN: no rash noted HEAD: normocephalic, no abnormality or lesion noted EYES: PERRL NECK: full ROM, no cervical LNs noted ACANTHOSIS: none noted EXTREMITIES: normal NEUROLOGIC: no obvious deficit ASSESSMENT/PLAN (E11.9) Controlled type 2 diabetes mellitus without complication, unspecified whether oysterman insulin use (HCC) (primary encounter diagnosis) Comment: CGM NOT DOWNLOADED TODAY as patient ran out of sensors and was not able to monitor RECOMMENDATIONS PER REVIEW FOLLOWS: Patient is compliant with CGM use and is benefiting from sensor use. Excellent control overall, patient's A1C did elevate slightly as he was unable to monitor his bloodsugars continuously due to lack of sensors. Will resend for his supplies No changes to insulin nor glipizide today Recommended diet: Low carbohydrate and Low saturated [...] consultants regarding his other medical problems. Plan: COMPREHENSIVE METABOLIC PANEL, LIPID PANEL, NONFASTING, ALBUMIN/CREATININE RATIO, URINE, HEMOGLOBIN A1C Evelin Reich CNP documented [facility] Telephone encounter Note * Telephone Encounter - Teresa Hernandes LPN - 06/29/2024 9:56 AM EDT Prescription Refill Information The patient has been identified by name and date of : Yes Caregiver verified no other encounters exist for this prescription request: Yes Caregiver confirmed with patient/requestor that no other refills are due, in the near future, with this provider at this time: Yes Does the patient have a future office visit with this provider/department: Yes Requested Prescriptions Pending Prescriptions Disp Refills pantoprazole DR (PROTONIX) 40 mg tablet 180 tablet Sig: Take 1 tablet by mouth two times a day. Teresa Hernandes LPN June 29, 2024 10:09 AM [facility]04-10-[facility] Miscellaneous Notes* Telephone Encounter - Teresa Hernandes LPN - 06/29/2024 9:56 AM EDT Prescription Refill Information The patient has been identified by name and date of : Yes Caregiver verified no other encounters exist for this prescription request: Yes Caregiver confirmed with patient/requestor that no other refills are due, in the near future, with this provider at this time: Yes Does the patient have a future office visit with this provider/department: Yes Requested Prescriptions Pending Prescriptions Disp Refills pantoprazole DR (PROTONIX) 40 mg tablet 180 tablet Sig: Take 1 tablet by mouth two times a day. Teresa Hernandes LPN June 29, 2024 10:09 AM documented in this encounterMer[facility]03-24-[facility] History of Present illness Narrative* Bernadette Munguia MD - 06/12/2024 11:20 AM EDT Images from the original note were not included. [facility]OLOG[facility] Cardiology ([address]) [address] [facility] [id number] OUTPATIENT VISIT DATE 06/12/2024 PRIMARY CARE PHYSICIAN: Davis May [address] [place] [address] HISTORY OF PRESENT ILLNESS: Mr. Yi is a 74 year old gentleman with a history of hypertrophic cardiomyopathy with ICD implantation in 2012, angiographically normal coronary arteries on prior catheterization 2012, hypertension, and autoimmune hepatitis who presents for follow-up. Patient complains of sharp stabbing and sometimes achy chest pain. There seem to be no exacerbating relieving factors. There is no associated shortness of breath or diaphoresis. Symptoms do not occur with exertion. He has not had symptoms concerning for congestive heart failure including PND, orthopnea, lower extremity edema. He denies palpitations, lightheadedness, dizziness, or ICD discharges PAST CARDIAC HISTORY: He underwent ICD placement [...] Tobacco Use Smoking status: Former Types: Cigars Smokeless tobacco: Never Vaping Use Vaping status: Some Days Substances: THC, CBD Devices: Disposable Substance Use Topics Alcohol use: Not Currently Drug use: Yes Types: Marijuana Comment: medical marijuana FAMILY HISTORY Problem Relation Age of Onset Cataract Father Heart Father Hypertension Father Cancer Brother lung Heart disease Brother pacemaker. cardiac ablation Alcohol/Drug Brother No Known Problems Son Heart Paternal Uncle suddenly at age 40's, 2 other uncles suddenly ALLERGIES: ALLERGIES Allergen Reactions Percocet [Oxycodone* Other: See Comments Pt states he doesn't have an allergy to percocet, but because of his reaction to Vicodin, he avoidsit. Vicodin [Hydrocodon* Anaphylaxis stopped breathing Hibiscus Hives, Shortness of Breath Valsartan Myalgia Cramps in legs, muscle pain Lidocaine Other: See Comments Dizziness, profuse sweating with application of topical lidocaine patch to abdomen; symptoms resolved with removal of patch. MEDICATIONS: doxycycline (VIBRA-TABS) 100 mg tablet Take 1 tablet by mouth two times a day for 5 days. carvedilol (COREG) 12.5 mg tablet Take 1 tablet by mouth two times a day with meals. cloNIDine HCl (CATAPRES) 0.1 mg tablet Take 1 tablet by mouth three times a day. amLODIPine (NORVASC) 5 mg tablet Take 1 tablet by mouth once daily. Fluorouracil (EFUDEX) 5 % cream Apply thin coat twice daily (morning and evening) for 2-4 weeks to affected area(s) on FACE until rash develops (red, raw, and potentially scale or scab). Do not rinse.Try to apply for AT LEAST 2 weeks. Once rash becomes very vigorous, can stop/discontinue treatment.Do not allow animals to lick medication. Wash hands after applying apixaban (ELIQUIS) 5 mg tab(s) Take 1 tablet by mouth two times a day. tacrolimus IR (PROGRAF) 1 mg capsule Take 1 capsule by mouth two times a day. mycophenolate Mofetil (CELLCEPT) 500 mg tablet Take 1 tablet by mouth twice daily glipiZIDE (GLUCOTROL XL) 5 mg 24 hr tablet Take 1 tablet by mouth once daily. Blood-Glucose Sensor ([employer] G7 SENSOR) wilmer CHANGE SENSOR EVERY 10 days. USE FOR CONTINOUS GLUCOSEMONITORING. INSULIN USE. E11.9 OTC NUTRITIONAL SUPPLEMENT Take by mouth as directed. cholecalciferol, vitamin D3, (VITAMIN D3 ORAL) Take 1 tablet by mouth three times a week. Lactobacill 46-B.animal-inulin (PROBIOTIC-10, WITH INULIN,) 10 billion cell -100 mg cap Take 1 tablet by mouth once daily. insulin degludec (TRESIBA FLEXTOUCH U-100) 100 unit/mL (3 mL) injection pen Inject 5 units once daily Insulin [place], Disposable, (BD ULTRAFINE III MINI PEN) 31 gauge x 3/16 USE WITH INSULIN PENS 1 TIME(S) DAILY Amoxicillin 500 mg tablet 2000 mg by mouth 1-2 hours prior to dental procedures REVIEW OF SYSTEMS: Review of Systems Constitutional: [...] Psychiatric/Behavioral: Negative for depression. PHYSICAL EXAMINATION: BP 152/76 Pulse 68 Resp 12 Ht 6' 0 (1.83m) Wt 172 lb (78.0kg) SpO2 98% BMI 23.32 kg/(m^2). General: Pleasant gentleman sitting appears comfortable [...] Rest FBP LVEF % 61 60 Echocardiogram 06/06/2024: - The left ventricle is normal in size. There is eccentric left ventricular hypertrophy. Left ventricular systolic function is hyperdynamic. EF = 80 5% (2D biplane) Definity contrast used for endocardial border detection. - The right ventricle is normal in size. Right ventricular systolic function is normal. - The left atrial cavity is mildly dilated. - Estimated right ventricular systolic pressure is likely underestimated due to a weak or incomplete tricuspid regurgitation signal and is, at least, 26 mmHg consistent with normal pulmonary artery pressures. Estimated right atrial pressure is 8 mmHg based on IVC assessment. - Rest (54 bpm): Moderate PATRICIA, 1-2+ MR, peak LVOT gradient 24 mmHg. - Valsalva (61 bpm): Severe PATRICIA, increase in MR, LVOT gradient increased to 64 mmHg. - Exam was compared with the prior [facility] echocardiographic exam performed on 04/15/2023. LVOT gradientswith valsalva are significantly higher on today's exam. Echocardiogram 04/15/2023: - Exam indication: HOCM - The left ventricle is normal in size. There is left ventricular hypertrophy. Left ventricular systolic function is normal. EF = 54 5% (2D biplane) Grade I left ventricular diastolic dysfunction. - The right ventricle is normal in size. Right ventricular systolic function is normal. - The left atrial cavity is severely dilated. - The visualized aorta is borderline dilated with a maximal dimension of 4.0 cm. - There is mild (1+) mitral regurgitation. - Rest (59 bpm): Mild chordal PATRICIA, Mild MR, LVOT peak gradient 12 mmHg. -With Valsalva (59 bpm): Mild chordal PATRICIA, Mild MR, LVOT peak gradient 18 mmHg. - Amyl not administered per Dr. Hogan. - Exam was compared with the prior [facility] echocardiographic exam performed on 07/28/2022. Slight higher gradients (previously 5 mmHg at rest, 13 mmHg with Valsalva). Echocardiogram 07/28/2022: - The left ventricle is normal in size. There is severe septal asymmetric left ventricular hypertrophy. Left ventricular systolic function is normal. EF = 60 5% (visual est.) Grade I left ventriculardiastolic dysfunction. - The right ventricle is normal in size. Right ventricular systolic function is normal. - The left atrial cavity is severely dilated. - The visualized aorta is dilated with a maximal dimension of 4.1 cm. - At rest mild chordal PATRICIA with an LVOT gradient of 6 mmHg, trivial-1+ MR. - With valsalva LVOT gradient of 13 mmHg, no significant change with PATRICIA or MR. - Amyl unavailable. -Speckled myocardium concerning for infiltrative disease present. Echocardiogram 11/19/2020: - The left ventricle is [...] prior echocardiographic exam performed on 09/05/2019. Gradients arelower. Normal Remote: With Events 03/09/2024: * Normal Device Function * Events or Alerts: 1 VT-NST detection, confirmed by stored EGM's. 1 AT/AF detection, confirmed by stored EGM's and lasted 11 min. NO anticoagulation. * Battery: Battery is at 30%, 2.00 yrs * Sensing, impedance and thresholds reviewed * Programmed parameters reviewed * Presenting rhythm AP-/VS. AP 17%. ROTARY PE[employer] TENDER 0%. * Heart Rate Histograms reviewed I have personally reviewed the Laboratory Testing and Echocardiogram. IMPRESSION: Mr. Yi is a 74 year old gentleman with a history of hypertrophic cardiomyopathy and prior ICD implantation in 2012. He had undergone cardiac catheterization before his ICD implantation which demonstrated no significant coronary disease and possible mild LAD bridge. He is also treated for hyperten nanette. He has a history of autoimmune hepatitis and is currently on therapy. He presents the office for routine follow-up PLAN AND RECOMMENDATIONS: 1. Hypertrophic obstructive cardiomyopathy (HOCM) (HCC) - ICD9: 425.11, ICD10: I42.1 (primary diagnosis) Most recent echocardiogram results and images were reviewed with the patient during the office visit. He has noted to have some degree of worsening obstruction with Valsalva. However, he remains asymptomatic with good functional capacity. Will continue careful observation 2. Primary hypertension - ICD9: 401.9, ICD10: I10 Elevated during the office visit. I have asked him to keep a better record of his home blood pressure readings for review at next office visit 3. Hyperlipidemia LDL goal <100 - ICD9: 272.4, ICD10: E78.5 4. Venous insufficiency - ICD9: 459.81, ICD10: I87.2 5. S/P ICD (internal cardiac defibrillator) procedure - ICD9: V45.02, ICD10: Z95.810 Bernadette Munguia MD documented in this encounterMer[facility]03-19-[facility] Telephone encounter Note * Telephone Encounter - Teresa Hernandes LPN - 06/07/2024 8:40 AM EDT Prescription Refill Information The patient has been identified by name and date of : Yes Caregiver verified no other encounters exist for this prescription request: Yes Caregiver confirmed with patient/requestor that no other refills are due, in the near future, with this provider at this time: Yes The last office visit in the department: 05/30/24 Does the patient have a future office visit with this provider/department: Yes Requested Prescriptions Pending Prescriptions Disp Refills cloNIDine HCl (CATAPRES) 0.1 mg tablet 270 tablet 1 Sig: Take 1 tablet by mouth three times a day. Teresa Hernandes LPN June 07, 2024 8:42 AM [facility]03-19-[facility] Miscellaneous Notes* Telephone Encounter - Teresa Hernandes LPN - 06/07/2024 8:40 AM EDT Prescription Refill Information The patient has been identified by name and date of : Yes Caregiver verified no other encounters exist for this prescription request: Yes Caregiver confirmed with patient/requestor that no other refills are due, in the near future, with this provider at this time: Yes The last office visit in the department: 05/30/24 Does the patient have a future office visit with this provider/department: Yes Requested Prescriptions Pending Prescriptions Disp Refills cloNIDine HCl (CATAPRES) 0.1 mg tablet 270 tablet 1 Sig: Take 1 tablet by mouth three times a day. Teresa Hernandes LPN June 07, 2024 8:42 AM documented in this encounterMer[facility]03-18-2025 History of Present illness Narrative* Lauren Henning RN - 06/06/2024 11:08 AM EDT Patient identified by name and . Pt educated on purpose of Definity contrast solution and side effects prior to administration during ECHO. Patient verbalized understanding and appropriate time was allowed for questions/concerns to be addressed. #24 angiocath started in [facility] following [facility] policy and procedure. Pt tolerated well. 1.5mL total Definity (diluted) given via 24 angiocath located in [facility] Pt tolerated procedure well. IV was removed prior to patient leaving treatment area. Please see MAR for medication documentation. documented in this encounterMer[facility]03-14-2025 Telephone encounter Note * Telephone Encounter - Hever Pascal LPN - 06/02/2024 10:42 AM EDT Prescription Refill Information The patient has been identified by name and date of : Yes Caregiver verified no other encounters exist for this prescription request: Yes Caregiver confirmed with patient/requestor that no other refills are due, in the near future, with this provider at this time: Yes The last office visit in the department: 05/30/24 Does the patient have a future office visit with this provider/department: Yes, 07/24/24 Requested Prescriptions Pending Prescriptions Disp Refills amLODIPine (NORVASC) 5 mg tablet 90 tablet 1 Sig: Take 1 tablet by mouth once daily. Hever Pascal LPN June 02, 2024 10:42 AM [facility]03-14-[facility] Miscellaneous Notes* Telephone Encounter - Hever Pascal LPN - 06/02/2024 10:42 AM EDT Prescription Refill Information The patient has been identified by name and date of : Yes Caregiver verified no other encounters exist for this prescription request: Yes Caregiver confirmed with patient/requestor that no other refills are due, in the near future, with this provider at this time: Yes The last office visit in the department: 05/30/24 Does the patient have a future office visit with this provider/department: Yes, 07/24/24 Requested Prescriptions Pending Prescriptions Disp Refills amLODIPine (NORVASC) 5 mg tablet 90 tablet 1 Sig: Take 1 tablet by mouth once daily. Hever Pascal LPN June 02, 2024 10:42 AM documented in this encounterMer[facility]03-12-2025 History of Present illness Narrative* Riddhi Brower RN - 05/31/2024 2:19 PM EDT CDM ENROLLMENT Provider Action / FYI: Patient identified by name and date of . Discussed care with patient. Program Details Chronic Disease Management Status: Enrolled Effective Dates: 05/31/2024 - present Responsible Staff: Riddhi Brower, RN Support and Services: Diabetes, Hypertension, Chronic Kidney Disease (CKD) Assessments CDM Assessment Medications: Do you have any questions about taking your medications or which medications you should be taking?:No Do you need any medication refills at this time, including any of the medication you might take only when needed?: No Social: It can be normal to feel anxious or down during a time like this. Would you like to talk to a mental health professional about how you have been feeling?: No Symptoms: Are you experiencing any new or worsening symptoms that you need to talk about today?: No ADLs Patients can perform the following activities without help: Dressing: Yes Bathing: Yes Doing laundry: Yes Climbing a flight of stairs: Yes Walking briskly: Yes Instrumental activities of daily living Do you drive a car?: Yes Do you need help from others to take care of things inside the house, for example: laundry, house cleaning, preparing meals?: No Do you need help from others with errands outside the house, for example: shopping for groceries orclothes, going medical appointments?: No Fall Risk One or more falls in the last year:: No Any near falls in the last year?: No Advised to use a cane or walker to get around safely:: No Feels unsteady when walking:: Yes Steadies self on furniture while walking at home:: Yes Worried about falling:: No Needs to push with hands when rising from a chair:: No Has trouble stepping up onto a curb:: No Often has to vazquez to the toilet:: Yes Has lost some feeling in feet:: No Takes medicine that makes him/her feel lightheaded or more tired than usual:: Yes Takes medicine to sleep or improve mood:: No SDOH Financial Resource Strain How hard is it for you to pay for the very basics like food, housing, medical care, and heating?: Not hard at all Housing Stability In the last 12 months, was there a time when you were not able to pay the mortgage or rent on time?: No At any time in the past 12 months, were you homeless or living in a nursing home (including now)?: No Transportation Needs In the past 12 months, has lack of transportation kept you from medical appointments or from getting medications?: No In the past 12 months, has lack of transportation kept you from meetings, work, or from getting things needed for daily living?: No Food Insecurity Within the past 12 months, you worried that your food would run out before you got the money to buymore.: Never true Within the past 12 months, the food you bought just didn't last and you didn't have money to get more.: Never true CDELities In the past 12 months has the electric, gas, oil, or water company threatened to shut off services in your home?: No Tobacco Use Patient reports that he has quit smoking. His smoking use included cigars. He has never used smokeless tobacco. Interventions The following were addressed during this visit: - Initial enrollment outreach - HTN lab care gaps addressed - Month 1: Review Individual Blood Pressure Target (If established by provider) - Month 1: Provide HTN Education: What is High Blood Pressure - Month 1: Provide HTN Education: When to call your Doctor, When to seek Emergency Care - Month 3: Schedule/Order BMP Lab - Diabetes lab care gaps addressed - Month 1: Schedule/Order HbA1C Lab - Month 1: Schedule/Order Lipid Panel Lab - Month 1: Schedule Diabetes Eye Exam - Evaluate for Consult to Diabetes Education - Evaluate for Referral to Pharmacy for Diabetes Medication Management - Evaluate for Referral to Endocrinology ([facility] only) - Month 3: Schedule/Order Urine Albumin Creatinine lab - Annual Nephrology visit addressed - CKD lab care gaps addressed - Month 3: Schedule Annual Nephrology Appointment - Month 3: Schedule/Order Renal Panel Lab Biannually - Intake assessments completed: ADLs, Fall Risk, SDOH - Biannual PCP visit addressed - Annual Medicare Wellness visit addressed - Schedule Biannual PCP Appointment - Schedule Annual Wellness Visit - Month 1: Provide General Education: Managing Stress & Anxiety Riddhi Brower RN May 31, 2024 2:21 PM documented in this encounterMercy [facility]03-11-2025 Instructions* Patient Instructions* Sanna Larsen APRN.CNP - 05/30/2024 2:13 PM EDT 1) Doxycycline 100 mg 2 x day for 10 days 2) Saline nasal spray while on antibiotic 3) Call if no improvement documented in this encounterMer[facility] History of Present illness Narrative* Sanna Larsen APRN.CNP - 05/30/2024 1:54 PM EDT This is a 74 year old male who presents today with: Patient presents with: Acute Visit: Chest congestion and cough HISTORY OF PRESENT ILLNESS: Mateus Yi is a 74 year old male. Patient presents with: Acute Visit: Chest congestion and cough Saw Dr. May 05/12, started with sinus congestion Went on vacation, terrible time. Nose dripping Back and chest sore from coughing- some yellow sputum + Headache intermittent + Body aches + fatigue No diarrhea + Poor appetite Denies fever, night sweats Echocardiogram pending DM: Reports overall feeling well. Medication side effects: No. Home sugar checks: No Hypoglycemic spells: Yes. Watching diet: No. Unexpected weight loss: Yes. 10 lb in last week Polyuria, polydipsia: Yes. Vision Changes: No. Foot lesions or numbness or pain: No. PAST MEDICAL HISTORY: PAST MEDICAL HISTORY Diagnosis Date Arthritis of [...] interspace PAST SURGICAL HISTORY OF knee arthroscopy ALLERGIES Percocet [Oxycodone-Acetaminophen], Vicodin [Hydrocodone- Acetaminophen], Hibiscus, Valsartan, and Lidocaine MEDICATIONS Current Outpatient Medications Medication Sig carvedilol (COREG) 12.5 mg tablet Take 1 tablet by mouth two times a day with meals. lisinopril (ZESTRIL) 5 mg tablet Take 1 tablet by mouth once daily. Fluorouracil (EFUDEX) 5 % cream Apply thin coat twice daily (morning and evening) for 2-4 weeks to affected area(s) on FACE until rash develops (red, raw, and potentially scale or scab). Do not rinse.Try to apply for AT LEAST 2 weeks. Once rash becomes very vigorous, can stop/discontinue treatment.Do not allow animals to lick medication. Wash hands after applying apixaban (ELIQUIS) 5 mg tab(s) Take 1 tablet by mouth two times a day. tacrolimus IR (PROGRAF) 1 mg capsule Take 1 capsule by mouth two times a day. cloNIDine HCl (CATAPRES) 0.1 mg tablet Take 1 tablet by mouth three times a day. mycophenolate Mofetil (CELLCEPT) 500 mg tablet Take 1 tablet by mouth twice daily glipiZIDE (GLUCOTROL XL) 5 mg 24 hr tablet Take 1 tablet by mouth once daily. amLODIPine (NORVASC) 5 mg tablet Take 1 tablet by mouth once daily. Blood-Glucose Sensor ([employer] G7 SENSOR) wilmer CHANGE SENSOR EVERY 10 days. USE FOR CONTINOUS GLUCOSEMONITORING. INSULIN USE. E11.9 OTC NUTRITIONAL SUPPLEMENT Take by mouth as directed. cholecalciferol, vitamin D3, (VITAMIN D3 ORAL) Take 1 tablet by mouth three times a week. Lactobacill 46-B.animal-inulin (PROBIOTIC-10, WITH INULIN,) 10 billion cell -100 mg cap Take 1 tablet by mouth once daily. insulin degludec (TRESIBA FLEXTOUCH U-100) 100 unit/mL (3 mL) injection pen Inject 5 units once daily Insulin [place], Disposable, (BD ULTRAFINE III MINI PEN) 31 gauge x 3/16 USE WITH INSULIN PENS 1 TIME(S) DAILY Amoxicillin 500 mg tablet 2000 mg by mouth 1-2 hours prior to dental procedures pantoprazole DR (PROTONIX) 40 mg tablet Take 1 tablet by mouth two times a day. (Patient not taking: Reported on 05/11/2024) No current facility-administered medications for this visit. FAMILY HISTORY Problem Relation Age of Onset Cataract Father Heart Father Hypertension Father Cancer Brother lung Heart disease Brother pacemaker. cardiac ablation Alcohol/Drug Brother No Known Problems Son Heart Paternal Uncle suddenly at age 40's, 2 other uncles suddenly Social History Tobacco Use Smoking status: Former Types: Cigars Smokeless tobacco: Never Vaping Use Vaping status: Some Days Substances: THC, CBD Devices: Disposable Substance Use Topics Alcohol use: Not Currently Drug use: Yes Types: Marijuana Comment: medical marijuana EXAM: BP 126/72 Pulse (!) 59 Temp 36.4 C (97.5 F) (Left Tympanic) Wt 78 kg (172 lb) SpO2 94% BMI 23.33 kg/m PHYSICAL EXAM: Physical Exam Vitals reviewed. Constitutional: Appearance: Normal appearance. HENT: Head: Normocephalic. Right Ear: Tympanic membrane, ear canal and external ear normal. There is no impacted cerumen. Left Ear: Tympanic membrane, ear canal and external ear normal. There is no impacted cerumen. Nose: Congestion and rhinorrhea present. Mouth/Throat: Pharynx: Oropharyngeal exudate and posterior oropharyngeal erythema present. Neck: Vascular: No carotid bruit. Cardiovascular: Rate and Rhythm: Normal rate and regular rhythm. Pulses: Normal pulses. Heart sounds: Normal heart sounds. Pulmonary: Effort: Pulmonary effort is normal. Breath sounds: Normal breath sounds. Comments: Positive egophony Musculoskeletal: Right lower leg: No edema. Left lower leg: No edema. Comments: Walks w/o assistive device, walks w/o assistive device Lymphadenopathy: Cervical: No cervical adenopathy. Skin: General: Skin is warm and dry. Neurological: Mental Status: He is alert and oriented to person, place, and time. LABS: ASSESSMENT/PLAN: 1. Acute non-recurrent sinusitis, unspecified location - ICD9: 461.9, ICD10: J01.90 (primary diagnosis) - Will begin treatment with Doxycycline 100 mg 2 x day - Saline nasal 2. Acute bronchitis, unspecified organism - ICD9: 466.0, ICD10: J20.9 - Treat with Doxycycline and saline nassal spray Discussed treatment plan and patient voices understanding. Patient's questions answered appropriately. Medications and potential side effects were discussed and patient voices understanding. Return to the office as scheduled or as needed for worsening/no improvement. Sanna Larsen APRN.UTILIZATION REVIEWER documented in this encounterMer[facility] Telephone encounter Note * Telephone Encounter - Martha Kaplan MA - 05/29/2024 3:31 PM EDT Pt is scheduled for tomorrow with Beat[facility]03-10[facility] Miscellaneous Notes* Telephone Encounter - Martha Kaplan MA - 05/29/2024 3:31 PM EDT Pt is scheduled for tomorrow with Beatris * Telephone Encounter - Davis May MD - 05/29/2024 2:59 PM EDT Given the amount of time and his issues, needs to see one of us here or urgent care * Telephone Encounter - Chari Ayala LPN - 05/29/2024 1:46 PM EDT Pt reports at OV: 05/12 he had URI sx. Pt reports he was advised it was viral and told to do supportive care. Pt reports he is flying home from vacation today and is miserable. Pt reports he has sinus congestion and pressure, chest congestion and cough. Pt reports some increased SOB. Pt reports he needs atb.Pt denies fever. Pt requesting atb to go to [facility]. Chari Ayala LPN documented in this encounterMer[facility]03-10-[facility]25 Telephone encounter Note * Telephone Encounter - Davis May MD - 05/29/2024 2:59 PM EDT Given the amount of time and his issues, needs to see one of us here or urgent care [facility]03-10[facility] Telephone encounter Note* Telephone Encounter - Chari Ayala LPN - 05/29/2024 1:46 PM EDT Pt reports at OV: 05/12 he had URI sx. Pt reports he was advised it was viral and told to do supportive care. Pt reports he is flying home from vacation today and is miserable. Pt reports he has sinus congestion and pressure, chest congestion and cough. Pt reports some increased SOB. Pt reports he needs atb.Pt denies fever. Pt requesting atb to go to [facility]. Chari Ayala LPN [facility]03-10[facility] History of Present illness Narrative* Aide Wu, Research Coordinator - 05/29/2024 7:33 AM EDTSummary: IRB #[id number] VCTE/Fibroscan performed on 05/19/2024 Images from the original note were not included. documented in this encounterMercy Health [facility]02-28-2025 History of Present illness Narrative* Darron Ellis - 05/19/2024 6:43 AM EST IRB# [id number] Liver Cirrhosis Network Cohort Study (Protocol version 1 September 03, 2021) PI: Dr. Larkin Research Nurse/Coordinator: Samy Duffy Visit #: V3 (12 mo) Subject ID [id number] All Vital Signs will be found in Additional Documentation below Progress Notes in the Encounter CRU to pull tubes for clinical labs (Saliva kit and Kismet tube from Trae Team) Time Point Procedures Comments/Signature Nursing Responsibilities Subject continues to consent Did pt consent to the collection of Stool samples: N/A Pt must remain NPO for Fibroscan Height: 184.0 cm Weight: 79.7 kg Vital Signs collected Time: 1104 Urine sample (for CORE lab) obtained (15mL min) Time: 1332 If consented: Stool sample (for CORE lab) obtained Time: N/A (Check with Lab to see if we need to collect) Saliva sample (for CORE lab) obtained Time: 1117 Blood Draw Time: 1110 Butterfly used in right antecubital area. Blood drawn with vacutainer and syringe as needed and labs drawn per protocol. Butterfly removed after blood draw and site secured withsterile gauze. Patient tolerated procedure well. Clin Path Core Lab Check EPIC for lab orders and print labels Pull tubes from 1 supply based on what is listed on Schedule Request Signature: Darron Ellis If drawing an Ammonia for clinical labs, send on ICE and deliver within 30 mins. of draw. Study Team Responsibilities Questionnaires, Head Of Store Operations Strength, Chair Stands, Balance, FibroScan Discharge D/C patient home Signature: Darron Ellis documented in this encounterMercy Health [facility]02-21-2025 Instructions* Patient Instructions* Davis May MD - 05/12/2024 4:23 PM EST Lamisil over the counter for toes. documented in this encounterMercy [facility]02-21-2025 History of Present illness Narrative* Davis May MD - 05/12/2024 4:08 PM EST Patient presents with: Follow Up HPI: Patient presents today for office visit for follow up. No further blood In the urine. Has seen urology. Has seen vascular med. Feels much better sine off of probenicid. Diabetes: Not checking glucose at home is following via lab tests. Following with endo. Overall doing very well. Derm: Has an irritation between 2 toes to check today. Sinus? Just had covid last month. Was clear. Now with congestion in the last four days. No fever orchills. No cough or shortness of breath. Note was copied and pasted, without alteration from previous ov: Was hospitalized at [facility] from 03/29/24 to 03/31/24 due to portal vein thrombosis. Started on Eliquis 5 mg BID. Followed up with Nephrology on 04/12/24 Was told his UA showed blood in his urine. Nephro thinks possibly due to Eliquis. I explained he has to be bleeding from somewhere to bleed. Eliquis does not help but likely needs to stay on it due to his new portal vein thrombus. Has renal us ordered per nephrology. Denies gross hematuria. Does have urinary urgency. More so over last couple years. Denies frequency. Admits doesn't drink enough water. Complaints of nausea being more pronounced since starting Eliquis. Has had nausea for years but states his symptoms are worse. Is actually eating well today. Did have an egd during hospitalization. Started with flu like symptoms on Wed. Did have chills. Sees gi next week. No worsening abd pain, shortness of breath. Bowel changes. No black or blooody stools. No worsening abd pain. Is now on the lower dose of eliquis. We discussed that the cause of bleeding needs ruled out. He is off of the loading dose of eliquis. No dysuria. No back pain. CT 03/29/24 IMPRESSION: 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 No OPTN class 5/LI-RADS 5 lesion. MEDICATIONS: Current Outpatient Medications Medication Sig Fluorouracil (EFUDEX) 5 % cream Apply thin coat twice daily (morning and evening) for 2-4 weeks to affected area(s) on FACE until rash develops (red, raw, and potentially scale or scab). Do not rinse.Try to apply for AT LEAST 2 weeks. Once rash becomes very vigorous, can stop/discontinue treatment.Do not allow animals to lick medication. Wash hands after applying apixaban (ELIQUIS) 5 mg tab(s) Take 1 tablet by mouth two times a day. carvedilol (COREG) 12.5 mg tablet TAKE 1 TABLET BY MOUTH TWICE DAILY WITH MEALS tacrolimus IR (PROGRAF) 1 mg capsule Take 1 capsule by mouth two times a day. cloNIDine HCl (CATAPRES) 0.1 mg tablet Take 1 tablet by mouth three times a day. mycophenolate Mofetil (CELLCEPT) 500 mg tablet Take 1 tablet by mouth twice daily glipiZIDE (GLUCOTROL XL) 5 mg 24 hr tablet Take 1 tablet by mouth once daily. amLODIPine (NORVASC) 5 mg tablet Take 1 tablet by mouth once daily. Blood-Glucose Sensor ([employer] G7 SENSOR) wilmer CHANGE SENSOR EVERY 10 days. USE FOR CONTINOUS GLUCOSEMONITORING. INSULIN USE. E11.9 OTC NUTRITIONAL SUPPLEMENT Take by mouth as directed. (Patient not taking: Reported on 05/10/2024) cholecalciferol, vitamin D3, (VITAMIN D3 ORAL) Take 1 tablet by mouth three times a week. Lactobacill 46-B.animal-inulin (PROBIOTIC-10, WITH INULIN,) 10 billion cell -100 mg cap Take 1 tablet by mouth once daily. (Patient not taking: Reported on 05/10/2024) pantoprazole DR (PROTONIX) 40 mg tablet Take 1 tablet by mouth two times a day. (Patient not taking: Reported on 05/11/2024) insulin degludec (TRESIBA FLEXTOUCH U-100) 100 unit/mL (3 mL) injection pen Inject 5 units once daily (Patient not taking: Reported on 05/10/2024) Insulin [place], Disposable, (BD ULTRAFINE III MINI PEN) 31 gauge x 3/16 USE WITH INSULIN PENS 1 TIME(S) DAILY (Patient not taking: Reported on 04/12/2024) Amoxicillin 500 mg tablet 2000 mg by mouth 1-2 hours prior to dental procedures No current facility-administered medications for this visit. ALLERGIES: ALLERGIES Allergen Reactions Percocet [Oxycodone* Other: See Comments Pt states he doesn't have an allergy to percocet, but because of his reaction to Vicodin, he avoidsit. Vicodin [Hydrocodon* Anaphylaxis stopped breathing Hibiscus Hives, Shortness of Breath Valsartan Myalgia Cramps in legs, muscle pain Lidocaine Other: See Comments Dizziness, profuse sweating with application of topical lidocaine patch to abdomen; symptoms resolved with removal of patch. PAST MEDICAL HISTORY Diagnosis Date Arthritis of [...] at age 40's, 2 other uncles suddenly Social History Tobacco Use Smoking status: Former Types: Cigars Smokeless tobacco: Never Vaping Use Vaping status: Some Days Substances: THC, CBD Devices: Disposable Substance Use Topics Alcohol use: Not Currently Drug use: Yes Types: Marijuana Comment: medical marijuana Reviewed current medications, allergies, past medical history, surgical history, family history andsocial history today. REVIEW OF SYSTEMS All other reviewed and negative other than HPI. HEALTH MAINTENANCE: Reviewed health maintenance issues today and recommended the following in detail. BP Controlled (<130/80) Never done VITALS: BP 122/82 Pulse (!) 56 Wt 83 kg (183 lb) SpO2 96% BMI 24.82 kg/m Last 4 Encounter Wt Readings: Date: Wt: 04/14/2024 80.7 kg (178 lb) 04/12/2024 80.3 kg (177 lb) 04/12/2024 81.5 kg (179 lb 10.8 oz) 03/29/2024 80.7 kg (178 lb) PHYSICAL EXAMINATION: General appearance: Well appearing, alert, in no acute distress, well-hydrated, well nourished. Skin: Skin color, texture, turgor normal, no suspicious rashes or lesions Head: Normocephalic, no masses, lesions, tenderness or abnormalities Eyes: Anicteric sclera. Pupils are equally round and reactive to light. Extraocular movements are intact. Ears: External ears normal, canals clear Nose/Sinuses: Nares normal, septum midline, mucosa normal, no drainage or sinus tenderness Oropharynx: Lips, mucosa, and tongue normal, teeth and gums normal, oropharynx normal Neck: Negative findings: no adenopathy Lungs: Lungs clear to auscultation. No wheezing, rhonchi, rales Heart: RRR without murmur, gallop, or rubs. No ectopy Abdomen: Normal abdominal exam, Abdomen soft, non-tender. Bowel sounds normal. No masses, organomegaly ASSESSMENT/PLAN: 1. Portal vein thrombosis - ICD9: 452, ICD10: I81 (primary diagnosis) - continue anticoagulation and follow up with vascular. 2. Poorly controlled type 2 diabetes mellitus (HCC) - ICD9: 250.00, ICD10: E11.65 - per endo. 3. Thrombocytopenia (HCC) - ICD9: 287.5, ICD10: D69.6 - stable. 4. Type 2 diabetes mellitus with diabetic neuropathy, unspecified whether fci insulin use (HCC) - ICD9: 250.60, 357.2, ICD10: E11.40 - as above. 5. Cirrhosis of liver without ascites, unspecified hepatic cirrhosis type (HCC) - ICD9: 571.5, ICD10: K74.60 - stable. 6. Esophageal varices without bleeding, unspecified esophageal varices type (HCC) - ICD9: 456.1, ICD10: I85.00 - stable 7. Hyperlipidemia LDL goal <100 - ICD9: 272.4, ICD10: E78.5 - follow progress. 8. Autoimmune hepatitis (HCC) - ICD9: 571.42, ICD10: K75.4 Stable 9. Stage 3a chronic kidney disease (HCC) - ICD9: 585.3, ICD10: N18.31 - stable. 10. URI, acute - ICD9: 465.9, ICD10: J06.9 - Discussed viral etiology and rationale for treatment. - Symptomatic treatment with prn analgesia - Supportive care with fluids and rest - hold on retesting since was positive not long ago for elmer May MD documented in this encounterMercy [facility]02-20-2025 Instructions* Patient Instructions* Chase Arriaga LPN - 05/11/2024 1:41 PM EST EFUDEX (5-Fluorouracil) Mechanism of action: The medication is a topical chemotherapy cream. It is designed to attack skin cancer cells and photo damaged (sun damaged) skin. Uses: Actinic keratoses, squamous cell carcinoma in situ, superficial basal cell carcinoma Monitoring: - There is no requirement for initial or routine laboratory monitoring Side Effects: - Most patients will experience dryness, redness, and crusting at the application site. You may also have stinging, burning, and/or itching. These are all expected side effects that indicate the medication is working. - Rare side effects include headache, common cold, eye irritation, and sinus infections. - Other side effects may be possible. If you experience any of the side effects noted above, pleasecontact our clinic. Important information: - Apply the cream to a broad area designated by your provider with gloved hands if possible. If gloves are not available, be certain to wash hands thoroughly after application (as to not distribute the medication elsewhere accidently). If you are applying the cream to the site of a previous biopsy,please make sure the biopsy site is healed before starting to use the cream. - Things to expect following application of Efudex The area will become red, raw, and potentially scale or scab. This is the expected outcome with use. To alleviate some of the discomfort, you may apply Vaseline to the site 30 minutes after application of the Efudex. This will prevent scabbing of the area, and therefore, alleviate additional discomfort. Avoid sun exposure to the treated areas at all times. Exposure to the sun will cause increased redness, burning, and irritation to the site. You may apply ice packs to the area to assist with any swelling that is the product of Efudex use. If you are not tolerating the medication, you may take a break from application for a few days and apply Vaseline/OTC Hydrocortisone to the site. Please resume the medication to complete the prescribed course. - A follow up will be needed, generally 4 weeks following the last application of the cream. documented in this encounterMercy Health [facility]02-20-2025 History of Present illness Narrative* Marcos Farrell PA-C - 05/11/2024 1:20 PM EST ESTABLISHED PATIENT 05/11/2024 Last Visit in Dermatology: 01/21/2024 Chief Complaint: Actinic Keratosis HPI: Mateus Yi is a 74 year old male. Patient presents with: Actinic Keratosis #1 Actinic Keratosis follow up Location: Right Anterior Mandible, Right Buccal Cheek, Right Forehead, Right Parotid Area, Right Posterior Mandible Symptoms/Course: improved but he still has some spots that were not treated Current Treatment: none Past Treatment: efudex Pertinent History: History of skin cancer: No History of atypical nevi: No History of blistering sunburns / tanning bed use: No Organ transplant / Immunosuppression: Yes, immunosuppression Pacemaker / Defibrillator / Heart Valve Replacement: Yes, pacemaker, defibrillator / : N/A Family history of skin cancer: No 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 S/P ICD (internal cardiac defibrillator) procedure 03/09/2017 Sensorineural hearing loss Syncope Trochanteric bursitis of right hip Social History Tobacco Use Smoking status: Former Types: Cigars Smokeless tobacco: Never Vaping Use Vaping status: Some Days Substances: THC, CBD Devices: Disposable Substance Use Topics Alcohol use: Not Currently Drug use: Yes Types: Marijuana Comment: medical marijuana ALLERGIES Allergen Reactions Percocet [Oxycodone* Other: See Comments Pt states he doesn't have an allergy to percocet, but because of his reaction to Vicodin, he avoidsit. Vicodin [Hydrocodon* Anaphylaxis stopped breathing Hibiscus Hives, Shortness of Breath Valsartan Myalgia Cramps in legs, muscle pain Lidocaine Other: See Comments Dizziness, profuse sweating with application of topical lidocaine patch to abdomen; symptoms resolved with removal of patch. Current Outpatient Medications Medication Sig apixaban (ELIQUIS) 5 mg tab(s) Take 1 tablet by mouth two times a day. carvedilol (COREG) 12.5 mg tablet TAKE 1 TABLET BY MOUTH TWICE DAILY WITH MEALS tacrolimus IR (PROGRAF) 1 mg capsule Take 1 capsule by mouth two times a day. cloNIDine HCl (CATAPRES) 0.1 mg tablet Take 1 tablet by mouth three times a day. mycophenolate Mofetil (CELLCEPT) 500 mg tablet Take 1 tablet by mouth twice daily glipiZIDE (GLUCOTROL XL) 5 mg 24 hr tablet Take 1 tablet by mouth once daily. amLODIPine (NORVASC) 5 mg tablet Take 1 tablet by mouth once daily. Blood-Glucose Sensor ([employer] G7 SENSOR) wilmer CHANGE SENSOR EVERY 10 days. USE FOR CONTINOUS GLUCOSEMONITORING. INSULIN USE. E11.9 cholecalciferol, vitamin D3, (VITAMIN D3 ORAL) Take 1 tablet by mouth three times a week. Amoxicillin 500 mg tablet 2000 mg by mouth 1-2 hours prior to dental procedures Fluorouracil (EFUDEX) 5 % cream Apply thin coat twice daily (morning and evening) for 2-4 weeks to affected area(s) on FACE until rash develops (red, raw, and potentially scale or scab). Do not rinse.Try to apply for AT LEAST 2 weeks. Once rash becomes very vigorous, can stop/discontinue treatment.Do not allow animals to lick medication. Wash hands after applying OTC NUTRITIONAL SUPPLEMENT Take by mouth as directed. (Patient not taking: Reported on 05/10/2024) Lactobacill 46-B.animal-inulin (PROBIOTIC-10, WITH INULIN,) 10 billion cell -100 mg cap Take 1 tablet by mouth once daily. (Patient not taking: Reported on 05/10/2024) pantoprazole DR (PROTONIX) 40 mg tablet Take 1 tablet by mouth two times a day. (Patient not taking: Reported on 05/11/2024) insulin degludec (TRESIBA FLEXTOUCH U-100) 100 unit/mL (3 mL) injection pen Inject 5 units once daily (Patient not taking: Reported on 05/10/2024) Insulin [place], Disposable, (BD ULTRAFINE III MINI PEN) 31 gauge x 3/16 USE WITH INSULIN PENS 1 TIME(S) DAILY (Patient not taking: Reported on 04/12/2024) ROS: Skin as above. PHYSICAL EXAM: Participation of a fellow, resident, medical student, or advanced practice provider student in performing the sensitive examination was discussed with the patient or authorized food service representative. The patient or authorized food service representative has agreed to proceed with the sensitive examination. (Sensitive examination includes inspection and/or palpation of the breasts, pelvis, prostate and anorectal regions) Cruz Skin Type: II The patient is a pleasant male in no apparent distress. Alert and oriented x 3. Appears well developed, well nourished, and in otherwise good health. A skin exam of the face was performed. IMPRESSION Mid Forehead (3), Mid Tip of Nose Erythematous papule(s) with gritty scale ASSESSMENT & PLAN ACTINIC KERATOSIS (4) Mid Forehead (3), Mid Tip of Nose -Discussed etiology and possibility of AK transformation to SCC. -Discussed treatment options and the risks and benefits of each including LN2, field treatment with5-fluorouracil (efudex), and photodynamic therapy; patient opts for field treatment with 5-fluorouracil. -Pt opts for Fluorouracil (EFUDEX) 5 % cream. Apply thin coat twice daily (morning and evening) for2-4 weeks to affected area(s) on FACE until rash develops (red, raw, and potentially scale or scab). Do not rinse.Try to apply for AT LEAST 2 weeks. Once rash becomes very vigorous, can stop/discontinue treatment. Do not allow animals to lick medication. Wash hands after applying Normal, Disp-40 g,R-0 Dx: 1. Actinic keratosis -Discussed side effects including expected redness, crusting and irritation; advised to discontinueand contact office if skin becomes painful or ulcerated. -Advised patient to avoid sun exposure, wear sun protective clothing and sunscreen. -Risks, benefits, and alternatives reviewed with patient. Fluorouracil (EFUDEX) 5 % cream - Mid Forehead (3), Mid Tip of Nose Apply thin coat twice daily (morning and evening) for 2-4 weeks to affected area(s) on FACE until rash develops (red, raw, and potentially scale or scab). Do not rinse.Try to apply for AT LEAST 2 weeks. Once rash becomes very vigorous, can stop/discontinue treatment. Do not allow animals to lick medication. Wash hands after applying Advised sun protection with broad-spectrum SPF 30+, wide brim hats, sun glasses, and protective clothing. Continue regular skin checks as discussed. Observe for changing, symptomatic, or new skin lesions and return to dermatology if any lesions of concern are noted. Follow Up: 8-10 weeks Return PRN or sooner for questions and concerns. Attestation: Intake completed by: Laruen Roberts MA The documentation for this note was completed by Chase Arriaga LPN acting as scribe for Marcos Farrell PA-C I agree with the Chief Complaint, ROS, and Past Histories independently gathered by the clinical print support specialist and the remaining scribed note accurately describes my personal service to the patient. Marcos Farrell PA-C May 11, 2024 1:45 PM Medical Decision Making: Problems: Low: Stable chronic illness Risk: Moderate: Drug management Medical Decision Making Level: 3 - Low documented in this encounterMer[facility] Instructions* Patient Instructions* Neptali Woods MD - 05/10/2024 11:51 AM EST You have not had any side effects from the apixaban 5mg twice daily that you are already on. Pleasecontinue to take this. As long as your platelet levels remain above 50, we should be okay with continuing the blood thinner. If you have any bleeding, please reach out as we may need to reassess choice of blood thinner. You will need to be treated for a minimum of 6 months. Please schedule a follow up appointment in 3 months. Please reach out if you have any questions or concerns. documented in this encounterMercy [facility]02-19-2025 History of Present illness Narrative* Jose Landry MD - 05/10/2024 11:27 AM EST Images from the original note were not included. [facility] [place] [facility] Zaragoza Department of Cardiovascular Medicine SECTION OF VASCULAR MEDICINE OUTPATIENT VISIT DATE May 10, 2024 OUTPATIENT VISIT TYPE ESTABLISHED Follow up regarding: PVT Allergies: is allergic to percocet [oxycodone-acetaminophen], vicodin [hydrocodone-acetaminophen], hibiscus, valsartan, and lidocaine. Medications: Current Outpatient Medications Medication Sig apixaban (ELIQUIS) 5 mg tab(s) Take 1 tablet by mouth two times a day. carvedilol (COREG) 12.5 mg tablet TAKE 1 TABLET BY MOUTH TWICE DAILY WITH MEALS tacrolimus IR (PROGRAF) 1 mg capsule Take 1 capsule by mouth two times a day. cloNIDine HCl (CATAPRES) 0.1 mg tablet Take 1 tablet by mouth three times a day. mycophenolate Mofetil (CELLCEPT) 500 mg tablet Take 1 tablet by mouth twice daily glipiZIDE (GLUCOTROL XL) 5 mg 24 hr tablet Take 1 tablet by mouth once daily. amLODIPine (NORVASC) 5 mg tablet Take 1 tablet by mouth once daily. cholecalciferol, vitamin D3, (VITAMIN D3 ORAL) Take 1 tablet by mouth three times a week. Amoxicillin 500 mg tablet 2000 mg by mouth 1-2 hours prior to dental procedures Blood-Glucose Sensor ([employer] G7 SENSOR) wilmer CHANGE SENSOR EVERY 10 days. USE FOR CONTINOUS GLUCOSEMONITORING. INSULIN USE. E11.9 OTC NUTRITIONAL SUPPLEMENT Take by mouth as directed. (Patient not taking: Reported on 05/10/2024) Lactobacill 46-B.animal-inulin (PROBIOTIC-10, WITH INULIN,) 10 billion cell -100 mg cap Take 1 tablet by mouth once daily. (Patient not taking: Reported on 05/10/2024) pantoprazole DR (PROTONIX) 40 mg tablet Take 1 tablet by mouth two times a day. insulin degludec (TRESIBA FLEXTOUCH U-100) 100 unit/mL (3 mL) injection pen Inject 5 units once daily (Patient not taking: Reported on 05/10/2024) Insulin [place], Disposable, (BD ULTRAFINE III MINI PEN) 31 gauge x 3/16 USE WITH INSULIN PENS 1 TIME(S) DAILY (Patient not taking: Reported on 04/12/2024) No current facility-administered medications for this visit. Review of history: Seen by Dr. Calixto as inpatient on 03/30/2024. New non-occlusive PVT EGD on 03/30/2024 showed small EV Seen by Urology previously for microscopic hematuria, latest UA negative, no need for cystoscopy. Discharged on apixaban 5mg BD, here for follow up. 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 He has been on apixaban for one month now. Child's mosquera A based on most recent labs.. Is on tacrolimus and MMF. No epistaxis, gingival hemorrhage, hematemesis, BRBPR, hematochezia, melena, hematuria, hemarthrosis, spontaneous soft tissue hematomas. Also denies easy bruising. Objective: BP 151/87 (BP Site: Right Arm, BP Position: Sitting, BP Cuff Size: Regular Adult) Pulse (!) 57 Resp 18 SpO2 98% General: Alert and oriented, in no acute distress, pleasant mood. Skin: Healthy, intact, no ulcerations, no rashes. HEENT: Head normocephalic, extraocular muscles intact, sclera anicteric, nasal and oral mucosa moist and pink, neck supple, no JVD, no carotid bruit. Cardiovascular: Heart has a regular rate and rhythm without murmur. Respiratory: Lungs clear auscultation bilaterally. Gastrointestinal: Abdomen soft and nontender. No abdominal bruit or palpable mass. Musculoskeletal: No cyanosis or clubbing. Peripheral vascular: Dorsalis pedis and posterior tibial pulses 2+/2 bilaterally. Lower extremities: No LL edema Labs Latest Reference Range & Units 04/28/24 13:53 Sodium 136 - 144 mmol/L 137 Potassium 3.7 - 5.1 mmol/L 4.7 Chloride 98 - 107 mmol/L 101 CO2 22 - 30 mmol/L 27 BUN 9 - 24 mg/dL 26 (H) Creatinine 0.73 - 1.22 mg/dL 1.24 (H) Glucose 74 - 99 mg/dL 160 (H) Calcium 8.5 - 10.2 mg/dL 9.1 Phosphorus 2.7 - 4.8 mg/dL 2.9 Albumin 3.9 - 4.9 g/dL 4.0 Anion Gap 8 - 15 mmol/L 9 eGFR >=60 mL/min/1.73m 60 Ferritin 30.3 - 565.7 ng/mL 89.7 Iron 41 - 186 ug/dL 103 TIBC 232 - 386 ug/dL 287 Transferrin Saturation 15.0 - 57.0 % 35.9 (H): Data is abnormally high Latest Reference Range & Units 03/31/24 04:13 PT Sec 9.7 - 13.0 sec 14.5 (H) PT INR 0.9 - 1.3 1.4 (H) (H): Data is abnormally high Latest Reference Range & Units 04/28/24 13:53 WBC 3.70 - 11.00 k/uL 4.51 RBC 4.20 - 6.00 m/uL 4.34 Hemoglobin 13.0 - 17.0 g/dL 13.5 Hematocrit 39.0 - 51.0 % 39.8 Platelet Count 150 - 400 k/uL 59 (L) Immature Platelet Fraction 0.9 - 7.2 % 17.4 (H) MCV 80.0 - 100.0 fL 91.7 MCH 26.0 - 34.0 pg 31.1 MCHC 30.5 - 36.0 g/dL 33.9 MPV 9.0 - 12.7 fL 12.9 (H) RDW-CV 11.5 - 15.0 % 14.5 DTYPE Auto Neut% % 71.7 Abs Neut (ANC) 1.45 - 7.50 k/uL 3.23 Lymph% % 19.5 Abs Lymph 1.00 - 4.00 k/uL 0.88 (L) [place]% % 7.3 Abs [place] <0.87 k/uL 0.33 Eosin% % 0.9 Abs Eosin <0.46 k/uL 0.04 Baso% % 0.2 Abs Baso <0.11 k/uL <0.03 Immature Gran % % 0.4 IMMATURE GRANS (ABS) <0.10 k/uL <0.03 NRBC /100 WBC 0.0 Absolute nRBC <0.01 k/uL <0.01 (L): Data is abnormally low (H): Data is abnormally high Imaging CT liver with IV contrast on 03/29/2024: IMPRESSION: 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 No OPTN class 5/LI-RADS 5 lesion. EGD on 03/30/2024: Impression: - Grade I esophageal varices. - Normal stomach. - Normal examined duodenum. - No specimens collected. Assessment: PVT and SMV thrombosis 74 year old male with a history of AIH leading to cirrhosis, prior EV bleed in 06/2023 with repeat EGD showed small EV in 03/2024 who presents for follow up. He was found to have new SMV and PV non-occlusive thrombosis on 03/29/2024 which is new. He had a repeat EGD at that time which showed small non-bleeding EV and he was discharged on apixaban. Pravin Mosquera: A His platelet count has been above 50. Denies any bleeding or bruising at this time. We discussed the plan moving forward. He would have an indication for AC for at least 6 months, butlikely indefinitely as long as the cirrhosis is present. We will continue apixaban 5mg BD for now. He was asked to reach out if he has any bleeding side effects. If platelet count drops below 50, will need to reassess therapeutic AC. Plan: - Continue apixaban 5mg BD - Counseled on bleeding side effects, he will reach out if he has side effects - Will reassess AC if platelet count is below 50 consistently - Plan to repeat CT liver in 07/2024 if this is not done by hepatology, will order at the time of the next visit Will plan to schedule FU in 3 months. Neptali Woods MD, MPH Thrombosis Fellow PGY-5 STAFF NOTE I have reviewed the documentation obtained and documented by the fellow and I have personally performed a face to face assessment of the patient and have personally participated in the sanchez componentsof the visit which includes medical decision making. I have discussed the case and management of the patient's care with Dr. Woods. The final assessment and plan have been formulated in discussion with the fellow and are outlined above. JOSE LANDRY M.D. documented in this encounterMer[facility]02-18-[facility]25 Telephone encounter Note * Telephone Encounter - Maria Alejandra Meeks OCCA - 05/09/2024 1:20 PM EST Fax received from [facility] in regards to pt lab results. Marked with pt MRN and placed in provider's mailbox for review. DEE DEE Barr [facility]02-[facility] Miscellaneous Notes* Telephone Encounter - Maria Alejandra Meeks OCCA - 05/09/2024 1:20 PM EST Fax received from [facility] in regards to pt lab results. Marked with pt MRN and placed in provider's mailbox for review. DEE DEE Barr documented in this encounterMer[facility]02-17-2025 Telephone encounter Note * Telephone Encounter - Sally Rodriguez MA - 05/08/2024 2:16 PM EST Sent Maria Alejandra Quinones from [facility] regarding patient's orders. Awaiting response Email back stated patient will be receiving a call or will be contacted by [facility] regarding new shipment Sally Rodriguez MA [facility]02-17-[facility] Miscellaneous Notes* Telephone Encounter - Sally Rodriguez MA - 05/08/2024 2:16 PM EST Sent Maria Alejandra Quinones from [facility] regarding patient's orders. Awaiting response Email back stated patient will be receiving a call or will be contacted by [facility] regarding new shipment Sally Rodriguez MA documented in this encounterMer[facility]02-05-2025 History of Present illness Narrative* Stevan Thomas MD - 04/26/2024 9:57 AM EST Hepatology Clinic follow-up (telemedicine) Date of visit: 04/26/24 CC: AIH cirrhosis HPI: Mr Yi is a 74 year old gentleman with a medical history of AIH-related cirrhosis (on MMF) complicated by bleeding EV (most recent EGD 03/2024 with small EV, also on coreg), PVT/SMV on eliquis,diabetes, CKD here for follow-up Previous patient of Dr. Bear's I had sent him into hospital in March after receiving notification for new non-occlusive but extensive portomesenteric vein thrombosis for EGD and anticoagulation initiation EGD noted small EV Started on eliquis and discharged Since discharge: -found to have microscopic hematuria x 2, needs cystoscopy. Patient has a history of smoking. Seen by urology -Had COVID in March, was very constipated. Had a small marlen of red of stool. -Doing well otherwise from a liver perspective Review of Systems: See note Past Medical/surgical/family/social history: unchanged I have confirmed and edited as necessary, the PFSH and ROS obtained by others. Outpatient medications: Current Outpatient Medications on File Prior to Visit Medication Sig apixaban (ELIQUIS) 5 mg tab(s) Take 1 tablet by mouth two times a day. carvedilol (COREG) 12.5 mg tablet TAKE 1 TABLET BY MOUTH TWICE DAILY WITH MEALS tacrolimus IR (PROGRAF) 1 mg capsule Take 1 capsule by mouth two times a day. cloNIDine HCl (CATAPRES) 0.1 mg tablet Take 1 tablet by mouth three times a day. mycophenolate Mofetil (CELLCEPT) 500 mg tablet Take 1 tablet by mouth twice daily glipiZIDE (GLUCOTROL XL) 5 mg 24 hr tablet Take 1 tablet by mouth once daily. amLODIPine (NORVASC) 5 mg tablet Take 1 tablet by mouth once daily. Blood-Glucose Sensor ([employer] G7 SENSOR) wilmer CHANGE SENSOR EVERY 10 days. USE FOR CONTINOUS GLUCOSEMONITORING. INSULIN USE. E11.9 OTC NUTRITIONAL SUPPLEMENT Take by mouth as directed. cholecalciferol, vitamin D3, (VITAMIN D3 ORAL) Take 1 tablet by mouth three times a week. Lactobacill 46-B.animal-inulin (PROBIOTIC-10, WITH INULIN,) 10 billion cell -100 mg cap Take 1 tablet by mouth once daily. pantoprazole DR (PROTONIX) 40 mg tablet Take 1 tablet by mouth two times a day. insulin degludec (TRESIBA FLEXTOUCH U-100) 100 unit/mL (3 mL) injection pen Inject 5 units once daily Insulin [place], Disposable, (BD ULTRAFINE III MINI PEN) 31 gauge x 3/16 USE WITH INSULIN PENS 1 TIME(S) DAILY (Patient not taking: Reported on 04/12/2024) Amoxicillin 500 mg tablet 2000 mg by mouth 1-2 hours prior to dental procedures No current facility-administered medications on file prior to visit. Vitals: not taken (virtual visit) Physical Exam: Well-appearing In NAD Breathing comfortably on room air Laboratory: MELD 3.0: 12 at 03/31/2024 4:13 AM MELD-Na: 13 at 03/31/2024 4:13 AM Calculated from: Serum Creatinine: 1.28 mg/dL at 03/31/2024 4:13 AM Serum Sodium: 137 mmol/L at 03/31/2024 4:13 AM Total Bilirubin: 0.7 mg/dL (Using min of 1 mg/dL) at 03/31/2024 4:13 AM Serum Albumin: 3.8 g/dL (Using max of 3.5 g/dL) at 03/31/2024 4:13 AM INR(ratio): 1.4 at 03/31/2024 4:13 AM Age at listing (hypothetical): 73 years Sex: Male at 03/31/2024 4:13 AM Disclaimer: The MELD Calculator cannot calculate MELD scores for patients on dialysis. Endoscopy: EGD 03/2024: small EV Imaging: CTAP 03/2024: 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 No OPTN class 5/LI-RADS 5 lesion. Assessment and Plan: In conclusion, Mr Yi is a 74 year old gentleman with a medical history of AIH-related cirrhosis (on MMF) complicated by bleeding EV (most recent EGD 03/2024 with small EV, also on coreg), PVT/SMV on eliquis, diabetes, CKD here for follow-up Seems to be doing well, tolerating anticoagulation. Has vasc med appt and will need repeat imaging 3-6 months to assess status of clot HE: none EV: bled 2023, on coreg 12.5 mg BID. Last EGD 03/2024 with small EV Ascites/SBP: none HCC: repeat RUQ US/AFP 09/2024 RTC: 6 months I spent a total of 45 minutes on the date of the service which included preparing to see the patient, [id number] patient care, completing clinical documentation, obtaining and/or reviewing separately obtained history, performing a medically appropriate examination, counseling and educating the pat ient/family/caregiver, and ordering medications, tests, or procedures. Stevan Thomas MD Associate Staff, Department of Gastroenterology and Hepatology [facility] [place] -- I have communicated my name and active licensure. The patient's identity and physical location wereverified at the time of this visit. Either the patient or their legal food service representative has been informed of the risks and benefits of -- and alternatives to -- treatment through a remote evaluation andconsents to proceed with the evaluation remotely. documented in this encounterMer[facility]02-[facility]-2025 Telephone encounter Note * Telephone Encounter - Sanna Larsen APRN.CNP - 04/24/2024 1:39 PM EST Ordered at [facility]. Can we see if pt. Assistance for him? Very expensive. [facility] Miscellaneous Notes* Telephone Encounter - Sanna Larsen APRN.CNP - 04/24/2024 1:39 PM EST Ordered at [facility]. Can we see if pt. Assistance for him? Very expensive. * Telephone Encounter - Roselia Heath MA - 04/24/2024 8:30 AM EST Are you willing to fill this or should be be getting from provider who prescribed? Roselia Heath MA documented in this encounterMercy [facility]02-03-2025 History of Present illness Narrative* Lora Thomas MD - 04/24/2024 1:30 PM EST [facility] NEW PATIENT HISTORY AND PHYSICAL EXAMINATION PATIENT: Mateus Yi (74 year old) PCP: Davis May MD SUMMARY: Referred for microscopic hematuria. Urinalyses reviewed: mod blood, no micro run (04/14/24), small blood, no micro run (04/12/24), no blood, no RBCs (03/30/24). #PMH sig for cirrhosis. *BT=Eliquis for portal vein thrombosis. Assessment & Plan Abnormal urinalysis Orders: UA DIP, URINE (POC) URINALYSIS, WITH MICROSCOPIC New, undiagnosed. The urinalysis results were personally reviewed with the patient, and their significance was discussed. I counseled the patient that a positive urine dipstick for blood does not constitute hematuria and that further testing with urine microscopy must be performed to confirm the presence of blood. Based on the positive urine dipstick for blood today, I will send the urine sample for microscopic analysis. If 3 or more RBCs are present per high-power field, then I recommend proceeding with a microhematuria work up, including cystoscopy and CT urogram. The risks of cystoscopy, including bleeding, infection, and discomfort were discussed. If the urine microscopy does not show microhematuria... We discussed that microscopic hematuria is associated with a small (5%) but significant risk of urologic malignancy. Therefore, if the patient develops microscopic hematuria (defined as 3 or more RBCs per high-power field in the absence of UTI) in the future, please refer the patient back to me for further evaluation. (MJM) FOLLOW UP: No follow-ups on file. CHIEF COMPLAINT: Patient presents with: New Patient: Microscopic hematuria HISTORY OF PRESENT ILLNESS: I personally reviewed the patient's past medical records. I personally reviewed the prior radiology images, and my findings were discussed with the patient. He denies gross hematuria. DAYANA/AUASS FORMS No question data found. REVIEW OF SYSTEMS: Noncontributory ALLERGIES: ALLERGIES Allergen Reactions Percocet [Oxycodone* Other: See Comments Pt states he doesn't have an allergy to percocet, but because of his reaction to Vicodin, he avoidsit. Vicodin [Hydrocodon* Anaphylaxis stopped breathing Hibiscus Hives, Shortness of Breath Valsartan Myalgia Cramps in legs, muscle pain Lidocaine Other: See Comments Dizziness, profuse sweating with application of topical lidocaine patch to abdomen; symptoms resolved with removal of patch. MEDICATIONS: carvedilol (COREG) 12.5 mg tablet TAKE 1 TABLET BY MOUTH TWICE DAILY WITH MEALS tacrolimus IR (PROGRAF) 1 mg capsule Take 1 capsule by mouth two times a day. cloNIDine HCl (CATAPRES) 0.1 mg tablet Take 1 tablet by mouth three times a day. apixaban (ELIQUIS) 5 mg tab(s) Take 2 tablets by mouth two times a day for 6 days, THEN 1 tablet two times a day. mycophenolate Mofetil (CELLCEPT) 500 mg tablet Take 1 tablet by mouth twice daily glipiZIDE (GLUCOTROL XL) 5 mg 24 hr tablet Take 1 tablet by mouth once daily. amLODIPine (NORVASC) 5 mg tablet Take 1 tablet by mouth once daily. Blood-Glucose Sensor ([employer] G7 SENSOR) wilmer CHANGE SENSOR EVERY 10 days. USE FOR CONTINOUS GLUCOSEMONITORING. INSULIN USE. E11.9 OTC NUTRITIONAL SUPPLEMENT Take by mouth as directed. cholecalciferol, vitamin D3, (VITAMIN D3 ORAL) Take 1 tablet by mouth three times a week. Lactobacill 46-B.animal-inulin (PROBIOTIC-10, WITH INULIN,) 10 billion cell -100 mg cap Take 1 tablet by mouth once daily. pantoprazole DR (PROTONIX) 40 mg tablet Take 1 tablet by mouth two times a day. insulin degludec (TRESIBA FLEXTOUCH U-100) 100 unit/mL (3 mL) injection pen Inject 5 units once daily Insulin [place], Disposable, (BD ULTRAFINE III MINI PEN) 31 gauge x 3/16 USE WITH INSULIN PENS 1 TIME(S) DAILY (Patient not taking: Reported on 04/12/2024) Amoxicillin 500 mg tablet 2000 mg by mouth 1-2 hours prior to dental procedures PAST HISTORY: PAST MEDICAL HISTORY Diagnosis Date Arthritis of [...] at age 40's, 2 other uncles suddenly Social History Tobacco Use Smoking status: Former Types: Cigars Smokeless tobacco: Never Vaping Use Vaping status: Some Days Substances: THC, CBD Devices: Disposable Substance Use Topics Alcohol use: Not Currently Drug use: Yes Types: Marijuana Comment: medical marijuana PHYSICAL EXAMINATION: BP 160/90 Pulse 60 Resp 18 -- patient reports that high blood pressure is inaccurate. Constitutional: In no acute distress. Well appearing. Cardiovascular: Warm and well perfused. Respiratory: Normal respiratory effort without use of accessory muscles. DATA: Clinic: URINALYSIS: URINE POC GLUCOSE UA (POCT) Negative 04/24/2024 BILIRUBIN UA (POCT) Negative 04/24/2024 KETONE UA (POCT) Negative 04/24/2024 SPECIFIC GRAVITY UA (POCT) 1.015 04/24/2024 HEMOGLOBIN/BLOOD UA (POCT) Trace-lysed 04/24/2024 PH UA (POCT) 5.5 04/24/2024 PROTEIN UA (POCT) >=300 04/24/2024 UROBILINOGEN UA (POCT) 0.2 04/24/2024 NITRITE UA (POCT) Negative 04/24/2024 LEUKOCYTES UA (POCT) Negative 04/24/2024 COLOR UA (POCT) Yellow 04/24/2024 CLARITY UA (POCT) Clear 04/24/2024 Laboratory: Creatinine Date Value Ref Range Status 04/14/2024 1.39 (H) 0.73 - 1.22 mg/dL Final 03/31/2024 1.28 (H) 0.73 - 1.22 mg/dL Final 03/30/2024 1.32 (H) 0.73 - 1.22 mg/dL Final 03/29/2024 1.38 (H) 0.73 - 1.22 mg/dL Final PSA: No results found for: PSA Cultures: Culture Results - Past 1 Year Culture 04/14/2024 <10,000 CFU/ml Normal urogenital nina Susceptibility Tests - Past 1 Year Collected Organism 04/14/24 Normal urogenital nina MEDICAL DECISION MAKING PROBLEM(S): 1, new problem requiring additional work up that carries a high risk of morbidity if untreated (moderate) DATA: Category 1 Review of test result(s): UA x3 Ordering of test(s): UA, UA micro Review of prior external note: Independent historian: Category 2 Independent interpretation of test: Category 3 Discussion of management or test interpretation: RISK: ORDERS THIS VISIT: Orders Placed This Encounter UA DIP, URINE (POC) Urinalysis with Microscopic I have reviewed the problem list, family history, and social history documented by my ancillary staff. Lora Thomas MD Staff Urologist documented in this encounterMercy Health [facility]02-03-2025 NoteHNO ID: [id number] Author: LORA THOMAS MD Service: ? Author Type: Physician Type: Progress Notes Filed: 04/24/2024 13:48 Note Text: [facility] UR[facility]Y NEW PATIENT HISTORY AND PHYSICAL EXAMINATION PATIENT: Mateus Yi (74 year old) PCP: Davis May MD SUMMARY: Referred for microscopic hematuria. Urinalyses reviewed: mod blood, no micro run (04/14/24), small blood, no micro run (04/12/24), no blood, no RBCs (03/30/24). #PMH sig for cirrhosis. *BT=Eliquis for portal vein thrombosis. Assessment AND Plan Abnormal urinalysis Orders: UA DIP, URINE (POC) URINALYSIS, WITH MICROSCOPIC New, undiagnosed. The urinalysis results were personally reviewed with the patient, and their significance was discussed. I counseled the patient that a positive urine dipstick for blood does not constitute hematuria and that further testing with urine microscopy must be performed to confirm the presence of blood. Based on the positive urine dipstick for blood today, I will send the urine sample for microscopic analysis. If 3 or more RBCs are present per high-power field, then I recommend proceeding with a microhematuria work up, including cystoscopy and CT urogram. The risks of cystoscopy, including bleeding, infection, and discomfort were discussed. If the urine microscopy does not show microhematuria... We discussed that microscopic hematuria is associated with a small (5%) but significant risk of urologic malignancy. Therefore, if the patient develops microscopic hematuria (defined as 3 or more RBCs per high-power field in the absence of UTI) in the future, please refer the patient back to me for further evaluation. (MJM) FOLLOW UP: No follow-ups on file. CHIEF COMPLAINT: Patient presents with: New Patient: Microscopic hematuria HISTORY OF PRESENT ILLNESS: I personally reviewed the patient's past medical records. I personally reviewed the prior radiology images, and my findings were discussed with the patient. He denies gross hematuria. DAYANA/AUASS FORMS No question data found. REVIEW OF SYSTEMS: Noncontributory ALLERGIES: ALLERGIES Allergen Reactions Percocet [Oxycodone* Other: See Comments Pt states he doesn't have an allergy to percocet, but because of his reaction to Vicodin, he avoids it. Vicodin [Hydrocodon* Anaphylaxis stopped breathing Hibiscus Hives, Shortness of Breath Valsartan Myalgia Cramps in legs, muscle pain Lidocaine Other: See Comments Dizziness, profuse sweating with application of topical lidocaine patch to abdomen; symptoms resolved with removal of patch. MEDICATIONS: carvedilol (COREG) 12.5 mg tablet TAKE 1 TABLET BY MOUTH TWICE DAILY WITH MEALS tacrolimus IR (PROGRAF) 1 mg capsule Take 1 capsule by mouth two times a day. cloNIDine HCl (CATAPRES) 0.1 mg tablet Take 1 tablet by mouth three times a day. apixaban (ELIQUIS) 5 mg tab(s) Take 2 tablets by mouth two times a day for 6 days, THEN 1 tablet two times a day. mycophenolate Mofetil (CELLCEPT) 500 mg tablet Take 1 tablet by mouth twice daily glipiZIDE (GLUCOTROL XL) 5 mg 24 hr tablet Take 1 tablet by mouth once daily. amLODIPine (NORVASC) 5 mg tablet Take 1 tablet by mouth once daily. Blood-Glucose Sensor ([employer] G7 SENSOR) wilmer CHANGE SENSOR EVERY 10 days. USE FOR CONTINOUS GLUCOSE MONITORING. INSULIN USE. E11.9 OTC NUTRITIONAL SUPPLEMENT Take by mouth as directed. cholecalciferol, vitamin D3, (VITAMIN D3 ORAL) Take 1 tablet by mouth three times a week. Lactobacill 46-B.animal-inulin (PROBIOTIC-10, WITH INULIN,) 10 billion cell -100 mg cap Take 1 tablet by mouth once daily. pantoprazole DR (PROTONIX) 40 mg tablet Take 1 tablet by mouth two times a day. insulin degludec (TRESIBA FLEXTOUCH U-100) 100 unit/mL (3 mL) injection pen Inject 5 units once daily Insulin [place], Disposable, (BD ULTRAFINE III MINI PEN) 31 gauge x 3/16 USE WITH INSULIN PENS 1 TIME(S) DAILY (Patient not taking: Reported on 04/12/2024) Amoxicillin 500 mg tablet 2000 mg by mouth 1-2 hours prior to dental procedures PAST HISTORY: PAST MEDICAL HISTORY Diagnosis Date Arthritis of [...] HISTORY Procedure Laterality Date COLONOSCOPY FLX DX W (more content not included)...[facility] 04-24-2024 Telephone encounter Note* Telephone Encounter - Roselia Heath MA - 04/24/2024 8:30 AM EST Are you willing to fill this or should be be getting from provider who prescribed? Roselia Heath MA [facility]01-29-2025 Telephone encounter Note* Telephone Encounter - Nathan Ruth MD - 04/19/2024 5:14 PM EST Test results explained and patient's questions answered. Kidney function is stable however the renal function was done too early after stopping probenecid. Advised to repeat renal panel next week andif stable will put him on lisinopril. dsDNA is equivocal and complements are within normal limits. Will repeat in 6 months. Stable M protein, will repeat in 6 months as well. [facility]01-29-2025 Miscellaneous Notes* Telephone Encounter - Nathan Ruth MD - 04/19/2024 5:14 PM EST Test results explained and patient's questions answered. Kidney function is stable however the renal function was done too early after stopping probenecid. Advised to repeat renal panel next week andif stable will put him on lisinopril. dsDNA is equivocal and complements are within normal limits. Will repeat in 6 months. Stable M protein, will repeat in 6 months as well. documented in this encounterMer[facility] Telephone encounter Note * Telephone Encounter - Lucinda Damon MA - 04/19/2024 4:02 PM EST Patient did speak with a ADRIENNE Coombs within the personal care home administrator management. Patient was advised to go to ER but declined. See note. Lucinda Damon MA [facility]01-29-2025 Miscellaneous Notes* Telephone Encounter - Lucinda Damon MA - 04/19/2024 4:02 PM EST Patient did speak with a ADRIENNE Coombs within the personal care home administrator management. Patient was advised to go to ER but declined. See note. Lucinda Damon MA * Telephone Encounter - Martha Kaplan MA - 04/17/2024 11:40 AM EST Left message for patient to return call. Martha Kaplan Ma * Telephone Encounter - Davis May MD - 04/17/2024 11:33 AM EST Agree with er * Telephone Encounter - Jaylene Godinez RN - 04/17/2024 11:05 AM EST Patient triaged for coffee ground emesis x 2 on Wednesday (compared amount to a small pill) and small amount of bright red rectal bleeding x 3 on surface of stool on Wednesday, Wednesday, and Wednesday. Nurse triage completed and protocol recommends go to ED now. Patient reports that he has already been toER and had full work up completed and is following up with specialists as recommended. Patient doesn't feel ED is needed at this time but if he were to feel that it were he would go to [facility]. Reason for Disposition Vomited blood (Exceptions: Few streaks that occurred only once, or swallowed blood from a nosebleedor cut in the mouth.) Answer Assessment - Initial Assessment Questions 1. APPEARANCE of BLOOD: Coffee grounds twice on Wednesday. Reports the coffee grounds to be the amount of a small pill and spread through out the other goop. 2. AMOUNT: A couple areas the size of a small pill. 3. VOMITING BLOOD: Twice on Wednesday and none since. 4. VOMITING WITHOUT BLOOD: None 5. ONSET:Wednesday 6. CAUSE: Patient reports forceful coughing related to Covid. 7. BLOOD THINNERS:No 8. DEHYDRATION:No dehydration. Dizziness per his usual. Urinating this morning. 9. ABDOMEN PAIN: No 10. DIARRHEA: No 11. OTHER SYMPTOMS: Blood in stool x 3 once on Wednesday, Wednesday, and Wednesday. Patient reports small flakes of bright red blood. None so far today. He doesn't believe he has a fever. Protocols used: Vomiting [id number] documented in this encounterMer[facility] History of Present illness Narrative* Denae Coombs RN - 04/18/2024 1:00 PM EST Transitional Care Management (TCM) Follow-Up Note PCP Update / Actionable Items see note below N/A - No specialty updates needed Patient Source: In-Network Discharge Initial outreach: TCM discharge report Outreach Summary: spoke to patient as tcm follow up - review of patient notes before call asked patient if he went to ED yesterday after he was advised - patient states he is no longer having bleeding in his stool , states he has not coughed up any bright red blood or black secretions today states he feels better today then he has in years patient states that he did not want to go to [facility] where no one was familiar with his medical history . patient stated he did not feel it was necessary to drive over an hour to a [facility] . reviewed with patient triage messages from yesterday 04/17/24 per notes , patient advised to go to the ED by triage nurse yesterday morning , and by Dr. Ruth and Dr. May . - per notes , message leftfor patient to return call . Patient states that he was aware of the recommendation to go to ED - again stated he did not want to go to [facility] where no one was familiar with his medical history . patient stated he did not feel it was necessary to drive over an hour to a [facility] . advised patient that if bleeding would return - to please go to most local ED - with the possibility to transfer to hospital of choice once stable . patient expressed understanding states he feels his covid symptoms have decreased - denies fever , or cough today - states he had acough while lying in bed , but slept in a recliner and no not noted states he feels nasal congestion only at this time Contact: Contact made with patient: Yes Spoke to: Patient Validation: Validated the person spoken to is actively involved in the patient's care. The patient was identified by Name and Date of . I'd like to get an update on how you're doing since our last phone call. Is now a good time to talk? Yes Symptoms: Are you feeling about the same, better or worse since leaving the hospital? Better Weekly Outreach: 1st Outreach Medications: Do you have any questions about taking your medications, including which medications you should be on, or do you need refills on your medications? No Patient Questions / Concerns: Do you have any questions related to your discharge? No Appointment / TCM Follow-Up: Have you had a follow-up visit with your Primary Care Provider or Specialist since you were discharged? Yes Do you need any assistance with scheduling or changing your follow-up appointments? Patient alreadyhas an appointment scheduled Education Patient and family educated on issues/questions related to reason for admission, transition of caretopics, and follow-up needed upon discharge. Targets addressed / completed during outreach: Prevent readmission for 30 days Outreach Outcome: Continue TCM Outreach for remainder of 30 days Care Management partners utilized: N/A Denae Coombs RN April 18, 2024 1:40 PM documented in this encounterMer[facility]01[facility] Telephone encounter Note * Telephone Encounter - Martha Kaplan MA - 04/17/2024 11:40 AM EST Left message for patient to return call. Martha Kaplan Ma [facility]01-27-2025 Telephone encounter Note* Telephone Encounter - Davis May MD - 04/17/2024 11:33 AM EST Agree with er [facility]01-27-2025 Telephone encounter Note* Telephone Encounter - Jaylene Godinez RN - 04/17/2024 11:05 AM EST Patient triaged for coffee ground emesis x 2 on Wednesday (compared amount to a small pill) and small amount of bright red rectal bleeding x 3 on surface of stool on Wednesday, Wednesday, and Wednesday. Nurse triage completed and protocol recommends go to ED now. Patient reports that he has already been toER and had full work up completed and is following up with specialists as recommended. Patient doesn't feel ED is needed at this time but if he were to feel that it were he would go to [facility]. Reason for Disposition Vomited blood (Exceptions: Few streaks that occurred only once, or swallowed blood from a nosebleedor cut in the mouth.) Answer Assessment - Initial Assessment Questions 1. APPEARANCE of BLOOD: Coffee grounds twice on Wednesday. Reports the coffee grounds to be the amount of a small pill and spread through out the other goop. 2. AMOUNT: A couple areas the size of a small pill. 3. VOMITING BLOOD: Twice on Wednesday and none since. 4. VOMITING WITHOUT BLOOD: None 5. ONSET:Wednesday 6. CAUSE: Patient reports forceful coughing related to Covid. 7. BLOOD THINNERS:No 8. DEHYDRATION:No dehydration. Dizziness per his usual. Urinating this morning. 9. ABDOMEN PAIN: No 10. DIARRHEA: No 11. OTHER SYMPTOMS: Blood in stool x 3 once on Wednesday, Wednesday, and Wednesday. Patient reports small flakes of bright red blood. None so far today. He doesn't believe he has a fever. Protocols used: Vomiting [id number] [facility]01-27-2025 Telephone encounter Note* Telephone Encounter - Lorna Watkins MA - 04/17/2024 10:53 AM EST Scheduled on Triage nurse schedule. Lorna Watkins MA [facility]01-27-2025 Miscellaneous Notes* Telephone Encounter - Lorna Watkins MA - 04/17/2024 10:53 AM EST Scheduled on Triage nurse schedule. Lorna Watkins MA * Telephone Encounter - Davis May MD - 04/17/2024 9:59 AM EST Please triage this documented in this encounterMer[facility]01-[facility]25 Telephone encounter Note * Telephone Encounter - Davis May MD - 04/17/2024 9:59 AM EST Please triage this [facility]01-27-2025 Telephone encounter Note* Telephone Encounter - Mia Mesa RN - 04/17/2024 8:16 AM EST See response on additional [employer] message from 04/16/24. Mia Mesa RN April 17, 2024 8:17 AM [facility]01-27-2025 Miscellaneous Notes* Telephone Encounter - Mia Mesa RN - 04/17/2024 8:16 AM EST See response on additional [employer] [place] message from 04/16/24. Mia Mesa RN April 17, 2024 8:17 AM documented in this encounterMercy [facility]01[facility] Telephone encounter Note * Telephone Encounter - Davis May MD - 04/17/2024 7:59 AM EST Discussed with patient on Sat. Wonders if his symptoms may have started even before. Red flags for re-assessment reviewed with patient in detail. [facility]01-27-2025 Miscellaneous Notes* Telephone Encounter - Davis May MD - 04/17/2024 7:59 AM EST Discussed with patient on Sat. Wonders if his symptoms may have started even before. Red flags for re-assessment reviewed with patient in detail. * Telephone Encounter - Davis May MD - 04/15/2024 9:22 AM EST Attempted to call patient. Is positive for covid. Started three days ago with uri symptoms. Is not a paxlovid candidate which we discussed. In theory he could consider molnupiravir. Attempted to callhim to discuss pros and cons. No answer. Will try again later when I am able documented in this encounterMer[facility]01[facility] Telephone encounter Note * Telephone Encounter - Davis May MD - 04/15/2024 9:22 AM EST Attempted to call patient. Is positive for covid. Started three days ago with uri symptoms. Is not a paxlovid candidate which we discussed. In theory he could consider molnupiravir. Attempted to callhim to discuss pros and cons. No answer. Will try again later when I am able [facility]01-24-2025 History of Present illness Narrative* Davis May MD - 04/14/2024 1:52 PM EST Patient presents with: Hematuria HPI: Patient presents today for office visit for hematuria. Was hospitalized at [facility] from 03/29/24 to 03/31/24 due to portal vein thrombosis. Started on Eliquis 5 mg BID. Followed up with Nephrology on 04/12/24 Was told his UA showed blood in his urine. Nephro thinks possibly due to Eliquis. I explained he has to be bleeding from somewhere to bleed. Eliquis does not help but likely needs to stay on it due to his new portal vein thrombus. Has renal us ordered per nephrology. Denies gross hematuria. Does have urinary urgency. More so over last couple years. Denies frequency. Admits doesn't drink enough water. Complaints of nausea being more pronounced since starting Eliquis. Has had nausea for years but states his symptoms are worse. Is actually eating well today. Did have an egd during hospitalization. Started with flu like symptoms on Wed. Did have chills. Sees gi next week. No worsening abd pain, shortness of breath. Bowel changes. No black or blooody stools. No worsening abd pain. Is now on the lower dose of eliquis. We discussed that the cause of bleeding needs ruled out. He is off of the loading dose of eliquis. No dysuria. No back pain. CT 03/29/24 IMPRESSION: 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 No OPTN class 5/LI-RADS 5 lesion. Admitted 03/29/24 03/31/24 REASON FOR HOSPITALIZATION/PRINCIPAL DIAGNOSES: New onset portal vein thrombosis HOSPITAL PROBLEMS: Principal Problem: Portal vein thrombosis (POA: Yes) Active Problems: DDD (degenerative disc disease), lumbar (POA: Yes) S/P ICD (internal cardiac defibrillator) procedure (POA: Yes) Hypertrophic obstructive cardiomyopathy (HOCM) (HCC) (POA: Yes) Diabetes mellitus type 2, controlled, without complications (HCC) (POA: Yes) Cirrhosis (HCC) (POA: Yes) Thrombocytopenia (HCC) (POA: Yes) Primary hypertension (POA: Yes) Hyperlipidemia LDL goal <100 (POA: Yes) Neuropathy (POA: Yes) Stage 3a chronic kidney disease (HCC) (POA: Yes) Resolved Problems: * No resolved hospital problems. * HOSPITAL COURSE: 73 year old male with a PMH of autoimmune hepatitis, cirrhosis w/ hx of portal HTN w/ ruptured esophageal varices w/ banding, CKD, hypertrophic cardiomyopathy with ICD implantation 2012, GERD, hypertension, diabetes mellitus type 2, and gout who presented to the ED 03/29/24 after being redirected by his GI physician due to findings of nonocclusive thrombus extending from SMV into portal veins on CTliver earlier that day. At the time of admission, he denied any active symptoms such as abdominal pain, new onset nausea, vomiting or bloody stools. He primarily presented for initiation of anticoagulation therapy and repeat EGD. Patient had repeat EGD on 03/30 and showed grade 1 gastric varices, normal stomach and normal duodenum. Vascular medicine was also consulted given non- occlusive portal vein thrombosis on CT prior to admission. It was recommended to have patient on heparin drip while inpatient and switch to eliquis 10mg BIDx7 days then transitioning to 5 mg BID for 6 months with f/u with vascular medicine. OPERATIONS/PROCEDURE DURING THIS HOSPITALIZATION: * No surgery found * CONSULTS DURING HOSPITALIZATION: Treatment Team: Attending Provider: Juan Wilson MD Primary Service: Team, Brock Vascular medicine PATIENT CONDITION AT DISCHARGE: Stable DISCHARGE DISPOSITION: Home with Self Care MEDICATIONS: Current Outpatient Medications Medication Sig tacrolimus IR (PROGRAF) 1 mg capsule Take 1 capsule by mouth two times a day. cloNIDine HCl (CATAPRES) 0.1 mg tablet Take 1 tablet by mouth three times a day. apixaban (ELIQUIS) 5 mg tab(s) Take 2 tablets by mouth two times a day for 6 days, THEN 1 tablet two times a day. mycophenolate Mofetil (CELLCEPT) 500 mg tablet Take 1 tablet by mouth twice daily carvedilol (COREG) 12.5 mg tablet TAKE 1 TABLET BY MOUTH TWICE DAILY WITH MEALS glipiZIDE (GLUCOTROL XL) 5 mg 24 hr tablet Take 1 tablet by mouth once daily. probenecid 500 mg tablet Take 1 tablet by mouth two times a day. amLODIPine (NORVASC) 5 mg tablet Take 1 tablet by mouth once daily. Blood-Glucose Sensor ([employer] G7 SENSOR) wilmer CHANGE SENSOR EVERY 10 days. USE FOR CONTINOUS GLUCOSEMONITORING. INSULIN USE. E11.9 OTC NUTRITIONAL SUPPLEMENT Take by mouth as directed. cholecalciferol, vitamin D3, (VITAMIN D3 ORAL) Take 1 tablet by mouth three times a week. Lactobacill 46-B.animal-inulin (PROBIOTIC-10, WITH INULIN,) 10 billion cell -100 mg cap Take 1 tablet by mouth once daily. pantoprazole DR (PROTONIX) 40 mg tablet Take 1 tablet by mouth two times a day. insulin degludec (TRESIBA FLEXTOUCH U-100) 100 unit/mL (3 mL) injection pen Inject 5 units once daily Amoxicillin 500 mg tablet 2000 mg by mouth 1-2 hours prior to dental procedures Insulin [place], Disposable, (BD ULTRAFINE III MINI PEN) 31 gauge x 3/16 USE WITH INSULIN PENS 1 TIME(S) DAILY (Patient not taking: Reported on 04/12/2024) No current facility-administered medications for this visit. ALLERGIES: ALLERGIES Allergen Reactions Percocet [Oxycodone* Other: See Comments Pt states he doesn't have an allergy to percocet, but because of his reaction to Vicodin, he avoidsit. Vicodin [Hydrocodon* Anaphylaxis stopped breathing Hibiscus Hives, Shortness of Breath Valsartan Myalgia Cramps in legs, muscle pain Lidocaine Other: See Comments Dizziness, profuse sweating with application of topical lidocaine patch to abdomen; symptoms resolved with removal of patch. PAST MEDICAL HISTORY Diagnosis Date Arthritis of [...] at age 40's, 2 other uncles suddenly Social History Tobacco Use Smoking status: Former Types: Cigars Smokeless tobacco: Never Vaping Use Vaping status: Some Days Substances: THC, CBD Devices: Disposable Substance Use Topics Alcohol use: Not Currently Drug use: Yes Types: Marijuana Comment: medical marijuana Reviewed current medications, allergies, past medical history, surgical history, family history andsocial history today. REVIEW OF SYSTEMS All other reviewed and negative other than HPI. HEALTH MAINTENANCE: Reviewed health maintenance issues today and recommended the following in detail. BP Controlled (<130/80) Never done VITALS: BP 110/64 Pulse 60 Temp 36.7 C (98 F) Ht 182.9 cm (6') Wt 80.7 kg (178 lb) SpO2 97% BMI24.14 kg/m Last 4 Encounter Wt Readings: Date: Wt: 04/14/2024 80.7 kg (178 lb) 04/12/2024 80.3 kg (177 lb) 04/12/2024 81.5 kg (179 lb 10.8 oz) 03/29/2024 80.7 kg (178 lb) PHYSICAL EXAMINATION: General appearance: Well appearing, alert, in no acute distress, well-hydrated, well nourished. Skin: Skin color, texture, turgor normal, no suspicious rashes or lesions Head: Normocephalic, no masses, lesions, tenderness or abnormalities, normal ears and throat. Lungs: Lungs clear to auscultation. No wheezing, rhonchi, rales Heart: RRR without murmur, gallop, or rubs. No ectopy Abdomen: Normal abdominal exam, Abdomen soft, non-tender. Bowel sounds normal. No masses, organomegaly Extremities: No deformities, edema, skin discoloration, clubbing or cyanosis. Good capillary refill. Musculoskeletal: No joint swelling, deformity, or tenderness No cva tenderness. ASSESSMENT/PLAN: 1. Portal vein thrombosis - ICD9: 452, ICD10: I81 (primary diagnosis) - continue meds. Follow with gi. 2. Poorly controlled type 2 diabetes mellitus (HCC) - ICD9: 250.00, ICD10: E11.65 - sees endo 3. Thrombocytopenia (HCC) - ICD9: 287.5, ICD10: D69.6 - as above. 4. Hypertrophic obstructive cardiomyopathy (HOCM) (HCC) - ICD9: 425.11, ICD10: I42.1 - per cardiology 5. Type 2 diabetes mellitus with diabetic neuropathy, unspecified whether oysterman insulin use (HCC) - ICD9: 250.60, 357.2, ICD10: E11.40 - continue to work on sugar control. 6. Cirrhosis of liver without ascites, unspecified hepatic cirrhosis type (HCC) - ICD9: 571.5, ICD10: K74.60 - per gi 7. Esophageal varices without bleeding, unspecified esophageal varices type (HCC) - ICD9: 456.1, ICD10: I85.00 - no evidence of active issues. 8. Controlled type 2 diabetes mellitus without complication, with long-term current use of insulin (HCC) - ICD9: 250.00, V58.67, ICD10: E11.9, Z79.4 - as above. 9. Microscopic hematuria - ICD9: 599.72, ICD10: R31.29 - on eliquis but need to rule out source. - UA DIP, URINE (POC) - BACTERIAL CULTURE, URINE - CONSULT TO UROLOGY 10. URI, acute - ICD9: 465.9, ICD10: J06.9 - Discussed viral etiology and rationale for treatment. - Symptomatic treatment with prn analgesia - Supportive care with fluids and rest - COVID & INFLUENZA A/B & RSV PCR, ROUTINE 11. Nausea - ICD9: 787.02, ICD10: R11.0 - COMPLETE BLOOD COUNT AND DIFFERENTIAL - COMPREHENSIVE METABOLIC PANEL Davis May MD Close follow up. Letter for travel written. documented in this encounterMer[facility] Telephone encounter Note * Telephone Encounter - Gali Easley OCCA - 04/14/2024 9:37 AM EST TC to patient who verbalized understanding of providers message below. Patient agreeable to be seenand is scheduled same day with provider. DEE DEE Alexandre [facility]01-24-2025 Miscellaneous Notes* Telephone Encounter - Gali Easley OCCA - 04/14/2024 9:37 AM EST TC to patient who verbalized understanding of providers message below. Patient agreeable to be seenand is scheduled same day with provider. DEE DEE Alexandre * Telephone Encounter - Davis May MD - 04/14/2024 9:11 AM EST See my chart. Sent in with blood in his urine. Was concerned about blood thinner. The problem usually means an in issue in the urinary system allowing the blood to pass, irregardless if on a blood thinner, needs to see one of us either here or urgent care today [facility] Telephone encounter Note * Telephone Encounter - Davis May MD - 04/14/2024 9:11 AM EST See my chart. Sent in with blood in his urine. Was concerned about blood thinner. The problem usually means an in issue in the urinary system allowing the blood to pass, irregardless if on a blood thinner, needs to see one of us either here or urgent care today [facility]01-[facility] History of Present illness Narrative* Glendy Ayala, SAMANTHA.UTILIZATION REVIEWER - 04/12/2024 3:20 PM EST Chief Complaint Patient presents with: ospital f/up HPI Mateus Yi is a 74 year old male who presents here today for Above Complaints. Mateus is an established patient of Dr. Yadira MD. He is a new patient to me today. Concerns today.. Hospital follow-up---- [facility] [place] admission from 03/29-03/31 d/t new onset portal vein thrombosis. Per hospital course: Pt presented to the ED 03/29/24 after being redirected by his GI physician due to findings of nonocclusive thrombus extending from SMV into portal veins on CT liver earlier that day. Patient had repeat EGD on 03/30 and showed grade 1 gastric varices, Vascular medicine was consulted given non-occlusive portal vein thrombosis on CT prior to admission. It was recommended to have patient on heparin drip while inpatient and switch to eliquis 10mg BIDx7 days then transitioning to 5 mg BID for 6 monthswith f/u with vascular medicine. In office today.... Had nephrology appointment today. Has GI appointment follow-up on 04/20. Has vascular medicine appt follow up on 05/10 Pt reports no new concerns or complaints. Feeling the same since discharge. Reports abdominal cramping/pain, nausea, and generalized feeling crappy x years -- he does feel like this is slightly worse since recent hospitalization. Reports specialists are working on this and slowly making adjustments to medication regimen to fix this. Past medical history, appointments, medications, allergies reviewed. Previous Medical History 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 S/P ICD (internal cardiac defibrillator) procedure 03/09/2017 Sensorineural hearing loss Syncope Trochanteric bursitis of right hip Previous Surgical History PAST SURGICAL HISTORY Procedure Laterality Date COLONOSCOPY [...] interspace PAST SURGICAL HISTORY OF knee arthroscopy Family History FAMILY HISTORY Problem Relation Age of Onset Cataract Father Heart Father Hypertension Father Cancer Brother lung Heart disease Brother pacemaker. cardiac ablation Alcohol/Drug Brother No Known Problems Son Heart Paternal Uncle suddenly at age 40's, 2 other uncles suddenly Patient Allergies ALLERGIES Allergen Reactions Percocet [Oxycodone* Other: See Comments Pt states he doesn't have an allergy to percocet, but because of his reaction to Vicodin, he avoidsit. Vicodin [Hydrocodon* Anaphylaxis stopped breathing Hibiscus Hives, Shortness of Breath Valsartan Myalgia Cramps in legs, muscle pain Lidocaine Other: See Comments Dizziness, profuse sweating with application of topical lidocaine patch to abdomen; symptoms resolved with removal of patch. Current Medications Current Outpatient Medications on File Prior to Visit Medication Sig tacrolimus IR (PROGRAF) 1 mg capsule Take 1 capsule by mouth two times a day. cloNIDine HCl (CATAPRES) 0.1 mg tablet Take 1 tablet by mouth three times a day. apixaban (ELIQUIS) 5 mg tab(s) Take 2 tablets by mouth two times a day for 6 days, THEN 1 tablet two times a day. mycophenolate Mofetil (CELLCEPT) 500 mg tablet Take 1 tablet by mouth twice daily carvedilol (COREG) 12.5 mg tablet TAKE 1 TABLET BY MOUTH TWICE DAILY WITH MEALS glipiZIDE (GLUCOTROL XL) 5 mg 24 hr tablet Take 1 tablet by mouth once daily. probenecid 500 mg tablet Take 1 tablet by mouth two times a day. amLODIPine (NORVASC) 5 mg tablet Take 1 tablet by mouth once daily. Blood-Glucose Sensor ([employer] G7 SENSOR) wilmer CHANGE SENSOR EVERY 10 days. USE FOR CONTINOUS GLUCOSEMONITORING. INSULIN USE. E11.9 OTC NUTRITIONAL SUPPLEMENT Take by mouth as directed. cholecalciferol, vitamin D3, (VITAMIN D3 ORAL) Take 1 tablet by mouth three times a week. Lactobacill 46-B.animal-inulin (PROBIOTIC-10, WITH INULIN,) 10 billion cell -100 mg cap Take 1 tablet by mouth once daily. pantoprazole DR (PROTONIX) 40 mg tablet Take 1 tablet by mouth two times a day. insulin degludec (TRESIBA FLEXTOUCH U-100) 100 unit/mL (3 mL) injection pen Inject 5 units once daily (Patient not taking: Reported on 04/12/2024) Insulin [place], Disposable, (BD ULTRAFINE III MINI PEN) 31 gauge x 3/16 USE WITH INSULIN PENS 1 TIME(S) DAILY (Patient not taking: Reported on 04/12/2024) Amoxicillin 500 mg tablet 2000 mg by mouth 1-2 hours prior to dental procedures No current facility-administered medications on file prior to visit. Social History Social History Tobacco Use Smoking status: Former Types: Cigars Smokeless tobacco: Never Vaping Use Vaping status: Some Days Substances: THC, CBD Devices: Disposable Substance Use Topics Alcohol use: Not Currently Drug use: Yes Types: Marijuana Comment: medical marijuana REVIEW OF SYSTEMS: as above Reviewed relevant PMHx, PSHx, Social Hx, current medications and allergies. Review of Symptoms REVIEW OF SYSTEMS See HPI. EXAM: BP 130/76 (BP Site: Right Arm, BP Position: Sitting, BP Cuff Size: Large Adult) Pulse 68 Resp 16 Wt 81.5 kg (179 lb 10.8 oz) BMI 24.37 kg/m General Appearance: Well appearing, alert, in no acute distress, well-hydrated, well nourished.. Skin: Skin color, texture, turgor normal, no suspicious rashes or lesions. Head: Normocephalic, no masses, lesions, tenderness or abnormalities. Lungs: Lungs clear to auscultation. No wheezing, rhonchi, rales.. Heart: RRR without murmur, gallop, or rubs. No ectopy. Abdomen: Normal abdominal exam, Abdomen soft, non-tender. Bowel sounds normal. No masses, organomegaly. Health Maintenance List BP Controlled (<130/80) Never done Covid-19 Vaccine() due on 04/12/2025 Depression Screening due on 07/15/2024 Anxiety Screening due on 07/15/2024 LDL Cholesterol due on 08/29/2024 DTaP,Tdap,Td Vaccine(2 - Td or Tdap) due on 09/07/2024 HbA1C due on 09/20/2024 Urine Albumin:Creatinine Ratio due on 03/30/2025 Serum Creatinine due on 03/31/2025 Hemoglobin/Hematocrit due on 03/31/2025 Annual PCP Team Chronic Disease Visit due on 04/12/2025 Hepatitis B Vaccine Completed Influenza Vaccine Completed RSV Vaccine Completed Hepatitis C Screening Completed Shingrix Vaccine Completed Pneumococcal Vaccine: 50+ Completed Dilated Retinal Exam Discontinued Diabetic Foot Exam Discontinued Colorectal Cancer Screening Discontinued Advance Directive Discussion Discontinued ASSESSMENT/PLAN: 1. Hospital discharge follow-up - ICD9: V67.59, ICD10: Z09 (primary diagnosis) Stable. Continue with follow-up appointments as scheduled. No new concerns 2. PVT (portal vein thrombosis) - ICD9: 452, ICD10: I81 Continue on eliquis as prescribed. Tolerating well. Continue with follow-up appt with vascular team RTO as scheduled with PCP, sooner if needed. Prescription instructions reviewed with patient as applicable. Potential red flag symptoms discussed with the patient. Reviewed appropriate action plan to take if red flag symptoms occur. Patient agreeable to treatment plan. Glendy Still APRN.ZORAIDA [address] [place] [address] documented in this encounterMer[facility]01-22-[facility]25 Instructions* Patient Instructions* Nathan Ruth MD - 04/12/2024 2:11 PM EST -Stop taking Probenecid -Repeat labs in one week. -Inform us or your PCP if Gout flare up happens -Avoid NSAIDs (Ibuprofen, Motrin, Alleve, Advil, Naproxen, Meloxicam/Mobic, Diclofenac, Indomethacin, Goodies powder, BC powder etc) -Recommend drinking around 64-96 ounces of water/fluids per day. -Low salt diet (<2 gm Sodium per day) -Monitor BP at home. -Blood pressure Target <130/80 mm Hg. Inform us through MyChart if your blood pressure is not attarget consistently. -HBA1c Target <7. -Get laboratory tests done in one week, then every 3 months -Schedule a kidney ultrasound. documented in this encounterMer[facility]01-22-[facility] History of Present illness Narrative* Nathan Ruth MD - 04/12/2024 1:00 PM EST [facility] SERVICE DATE: 04/12/2024 REASON FOR CONSULT: I am asked to see this patient in consultation for my opinion regarding CKD. Myrecommendations will be communicated by way of shared medical record, fax, or mail. 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 Review of the records show that patient was admitted to the main campus on 03/29/2024 with nonocclusive portal vein thrombosis. Patient was started on IV heparin and switch to oral Eliquis. Accompanied by her today. Hypertension for several years. 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 Has been on Tacrolimus and Cellcept since 2019. Was diagnosed with diabetes around 2019 sec to steroids. 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 Used Ibuprofen a lot until around 2019. Recently hadCT liver with contrast. No h/o hematuria, dysuria, urgency. He does have nocturia and frequency. Noh/o recurrent diarrhea or vomiting. Feels nauseous but does not have vomiting. No history of [id number] meds use or herbal meds use except for medical marijuana. No history of renal stones. No h istory of recurrent UTIs. Monitors blood pressure at home. Readings: 120s/80s. Eats mostly cooked food at home. Does not add extra salt to the food. Has been having some losing wt. Does not know exactly how much fluid he takes; but thinks he might be taking 40-50 oz. Does not smoke or drink alcohol currently; stopped in 2019. 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 He has a son. Patient's creatinine has been intermittently elevated since around 2020 when it was around 1.1-1.3.Last set of labs are from 03/31/2024 with creatinine of 1.28, EGFR 58 mL/min, alkaline phosphatase 200, albumin 3.8, hemoglobin 14.0, UPCR 910 mg, UA is bland except for 2+ protein. 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 Anti-smooth muscle antibody was positive in 2019. Last vitamin D was 50.3 in 09/2023 Patient is on amlodipine 5 mg daily, Coreg 12.5 mg twice daily, clonidine 0.1 mg 3 times daily, Prograf 1 mg twice daily, CellCept 500 mg twice daily, apixaban 5 mg twice daily, glipizide XL 5 mg daily, Protonix, vitamin D3 3 times a week. PAST MEDICAL HISTORY: 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 S/P ICD (internal cardiac defibrillator) procedure 03/09/2017 Sensorineural hearing loss Syncope Trochanteric bursitis of right hip PAST SURGICAL HISTORY: PAST SURGICAL HISTORY Procedure Laterality Date COLONOSCOPY [...] PAST SURGICAL HISTORY OF knee arthroscopy FAMILY HISTORY: No FH of kidney disease. FAMILY HISTORY Problem Relation Age of Onset Cataract Father Heart Father Hypertension Father Cancer Brother lung Heart disease Brother pacemaker. cardiac ablation Alcohol/Drug Brother No Known Problems Son Heart Paternal Uncle suddenly at age 40's, 2 other uncles suddenly SOCIAL HISTORY: Social History Tobacco Use Smoking status: Former Types: Cigars Smokeless tobacco: Never Vaping Use Vaping status: Some Days Substances: THC, CBD Devices: Disposable Substance Use Topics Alcohol use: Not Currently Drug use: Yes Types: Marijuana Comment: medical marijuana MEDICATIONS: tacrolimus IR (PROGRAF) 1 mg capsule Take 1 capsule by mouth two times a day. cloNIDine HCl (CATAPRES) 0.1 mg tablet Take 1 tablet by mouth three times a day. apixaban (ELIQUIS) 5 mg tab(s) Take 2 tablets by mouth two times a day for 6 days, THEN 1 tablet two times a day. mycophenolate Mofetil (CELLCEPT) 500 mg tablet Take 1 tablet by mouth twice daily carvedilol (COREG) 12.5 mg tablet TAKE 1 TABLET BY MOUTH TWICE DAILY WITH MEALS glipiZIDE (GLUCOTROL XL) 5 mg 24 hr tablet Take 1 tablet by mouth once daily. probenecid 500 mg tablet Take 1 tablet by mouth two times a day. amLODIPine (NORVASC) 5 mg tablet Take 1 tablet by mouth once daily. Blood-Glucose Sensor ([employer] G7 SENSOR) wilmer CHANGE SENSOR EVERY 10 days. USE FOR CONTINOUS GLUCOSEMONITORING. INSULIN USE. E11.9 OTC NUTRITIONAL SUPPLEMENT Take by mouth as directed. cholecalciferol, vitamin D3, (VITAMIN D3 ORAL) Take 1 tablet by mouth three times a week. Lactobacill 46-B.animal-inulin (PROBIOTIC-10, WITH INULIN,) 10 billion cell -100 mg cap Take 1 tablet by mouth once daily. pantoprazole DR (PROTONIX) 40 mg tablet Take 1 tablet by mouth two times a day. insulin degludec (TRESIBA FLEXTOUCH U-100) 100 unit/mL (3 mL) injection pen Inject 5 units once daily Insulin [place], Disposable, (BD ULTRAFINE III MINI PEN) 31 gauge x 3/16 USE WITH INSULIN PENS 1 TIME(S) DAILY Amoxicillin 500 mg tablet 2000 mg by mouth 1-2 hours prior to dental procedures ALLERGIES: ALLERGIES Allergen Reactions Percocet [Oxycodone* Other: See Comments Pt states he doesn't have an allergy to percocet, but because of his reaction to Vicodin, he avoidsit. Vicodin [Hydrocodon* Anaphylaxis stopped breathing Hibiscus Hives, Shortness of Breath Valsartan Myalgia Cramps in legs, muscle pain Lidocaine Other: See Comments Dizziness, profuse sweating with application of topical lidocaine patch to abdomen; symptoms resolved with removal of patch. REVIEW OF SYSTEMS: Constitutional: No fevers, chills, weight loss Eyes: No loss in vision, photophobia Ear, Nose, and Throat: No epistaxis, nasal congestion Cardiovascular: No chest pain, AGOSTO, SOB, palpitations Respiratory: No cough, hemoptysis Gastrointestinal: No diarrhea, constipation Genitourinary: No dysuria, polyuria Musculoskeletal: No joint pain, morning stiffness Skin: No rash, no ulcers Neurological: No headaches, seizures, paresthesias Psychiatric: No depression, anxiety Endocrine: No hair loss, no heat intolerance Hematologic:No easy bruising, easy bleeding PHYSICAL EXAM: BP 122/75 Pulse (!) 59 Wt 80.3 kg (177 lb) BMI 24.01 kg/m BP - standardized method Pulse 1 BP #1: 128/77 Pulse #1: 59 beats/min 2 BP #2 : 119/74 Pulse #2 : 59 beats/min 3 BP #3 : 118/75 Pulse #3 : 59 beats/min Average Average BP: 122/75 Average Pulse: 59 beats/min Orthostatic vitals Supine Sitting Standing BP cuff location BP cuff size Comments for BP values First BP (right) First BP (left) General: Awake, not in distress. HENT: Normocephalic. Eyes: PERRL, Anicteric Neck:Trachea midline, No JVD Respiratory: Clear bilaterally. CV: RRR, No murmurs, rubs, or gallops Abdomen: Soft, non-distended. Extremities: Pedal edema absent. Skin: No rashes. Neurologic: Alert and oriented x 3, no focal deficits. Psychiatric: Cooperative, normal mood/affect. DATA: Diagnostic tests reviewed for today's visit: Recent Labs 03/30/24 1144 COLOR Yellow CLARITY Clear UGLUC Negative UBILI Negative UKET Negative SPGR 1.019 UHB Negative UPH 5.5 UPROT 2+* NITRITES Negative LEUKEST Negative UWBC 0-5 /HPF URBC 0-2 /HPF Recent Labs 03/31/24 0413 03/29/24 1916 03/23/24 0859 08/04/23 1010 07/09/23 1219 ANGELLA -- -- 92.8 < > 281.0 TRANSFERSAT -- -- 59.4* < > 38.0 B12 -- -- -- -- 890 FOLATE -- -- -- -- 17.3 HB 14.0 < > 15.1 < > 12.1* < > = values in this interval not displayed. Recent Labs 03/31/2441203/23/24 0859 10/12/23 0745 ALKPHOS 200* < > 186* VITD25 -- -- 50.3 CA 8.9 < > 8.7 P 2.7 -- -- ALB 3.8* < > 4.4 < > = values in this interval not displayed. No results for input(s): BUNRAT, BUNPR, BUNPO in the last 168 hours. No results for input(s): HEPSABQ in the last 1440 hours. Invalid input(s): HEPSABG Glucose (mg/dL) Date Value 03/31/2024 106 12/25/2020 123 Potassium (mmol/L) Date Value 03/31/2024 4.0 12/25/2020 4.1 Sodium (mmol/L) Date Value 03/31/2024 137 12/25/2020 136 Chloride (mmol/L) Date Value 03/31/2024 103 12/25/2020 103 CO2 (mmol/L) Date Value 03/31/2024 23 12/25/2020 25 Creatinine (mg/dL) Date Value 03/31/2024 1.28 12/25/2020 1.13 Creatinine (POCT) (mg/dL) Date Value 03/11/2023 1.20 BUN (mg/dL) Date Value 03/31/2024 23 12/25/2020 22 Anion Gap (mmol/L) Date Value 03/31/2024 11 12/25/2020 8 Calcium (mg/dL) Date Value 12/25/2020 9.0 Calcium, Total (mg/dL) Date Value 03/31/2024 8.9 eGFR- (no units) Date Value 12/25/2020 >60 URINE POC GLUCOSE UA (POCT) Negative 04/12/2024 BILIRUBIN UA (POCT) Negative 04/12/2024 KETONE UA (POCT) Negative 04/12/2024 SPECIFIC GRAVITY UA (POCT) 1.020 04/12/2024 HEMOGLOBIN/BLOOD UA (POCT) Small 04/12/2024 PH UA (POCT) 5.5 04/12/2024 PROTEIN UA (POCT) 100 04/12/2024 UROBILINOGEN UA (POCT) 0.2 04/12/2024 NITRITE UA (POCT) Negative 04/12/2024 LEUKOCYTES UA (POCT) Negative 04/12/2024 COLOR UA (POCT) Yellow 04/12/2024 CLARITY UA (POCT) Clear 04/12/2024 CT liver with IV contrast 03/29/2024 Kidneys: Benign cysts and subcentimeter low-attenuation lesions are too small to characterize but likely benign. No calculus or hydronephrosis. IMPRESSION: 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 No OPTN class 5/LI-RADS 5 lesion. ECHO: 03/2023: CONCLUSIONS: - Technically difficult exam due to lung interference. - Exam indication: HOCM - The left ventricle is normal in size. There is left ventricular hypertrophy. Left ventricular systolic function is normal. EF = 54 5% (2D biplane) Grade I left ventricular diastolic dysfunction. - The right ventricle is normal in size. Right ventricular systolic function is normal. - The left atrial cavity is severely dilated. - The visualized aorta is borderline dilated with a maximal dimension of 4.0 cm. - There is mild (1+) mitral regurgitation. - Rest (59 bpm): Mild chordal [place]ICIA, Mild MR, LVOT peak gradient 12 mmHg. -With Valsalva (59 bpm): Mild chordal PATRICIA, Mild MR, LVOT peak gradient 18 mmHg. - Amyl not administered per Dr. Hogan. - Exam was compared with the prior echocardiographic exam performed on 07/28/2022. Slight higher gradients (previously 5 mmHg at rest, 13 mmHg with Valsalva). ASSESSMENT: CKD 3A: Baseline creatinine 1.2-1.3. Kidney function started to worsen since around 2020; when probenecid was started. Has proteinuria. So CKD is likely multifactorial in the setting of diabetes, Prograf use, hypertension and probenecid use. Proteinuria: Last UPCR 918 mg. Not on RAAS inhibition. Possibly from diabetes. CAMDEN negative in the past. Hypertension/Volume status: Patient is on amlodipine 5 mg daily, Coreg 12.5 mg twice daily, clonidine 0.1 mg three times daily. BP is controlled. Diabetes Mellitus: Last A1C 6.3. Patient is on glipizide. Autoimmune hepatitis: Has cirrhosis and portal hypertension. Patient is on Prograf 1 mg twice dailyand CellCept 500 mg twice daily. Portal vein thrombosis: On Eliquis. Anemia: Hb at target. CKD MBD: Check PTH, phos, calcium, vitamin D. PLAN: Stop taking Probenecid. Repeat labs in one week Will check proteinuria work up for completion Repeat paraproteinemia panel (abnormal in the past) Will start on Lisinopril 10 mg daily after one week after renal funcion settles down and they are back from [place]. Check Renal US and post-void volume. Check PTH, vitamin D, Phos. Avoid NSAIDs. Limit/avoid iodinated contrast use. Would advise discussing with Nephrology service if unavoidable. BP control discussed (Home BP target<130/80 mm Hg). Blood sugars control discussed (HBA1C target <7) Discussed methods used for calculating kidney function tests and CKD stages. Weight loss advised. Labs in one week, and then every 3 months. Follow-up in 4 months I spent a total of 68 minutes on the date of the service which included preparing to see the patient, [id number] patient care, completing clinical documentation, obtaining and/or reviewing separately obtained history, performing a medically appropriate examination, counseling and educating the pat ient/family/caregiver, and ordering medications, tests, or procedures. Patient will need a fci follow-up in renal clinic. SIGNATURE: Nathan Ruth MD, [facility], [facility] PATIENT NAME: Mateus Yi OFFICE NUMBER: [phone] CC: REFERRING PROVIDER: Self PRIMARY CARE PHYSICIAN: Davis May MD documented in this encounterMercy Health [facility]01-21-2025 History of Present illness Narrative* Vanessa Sierra MA - 04/11/2024 4:22 PM EST POPULATION HEALTH NAVIGATION OUTREACH Action/FYI April 11, 2024 4:20 PM Patient has returned phone call. He has been scheduled for tomorrow, April 12, 2024 with Glendy Ayala CNP. Thank you Reason for Outreach Community Monitoring/Network Navigator Pools & Phone Line: Pool Patient Contacted: Spoke to patient/parent/or legal guardian Patient identified by name and : Yes Community Monitoring/Network Navigator Pools & Phone Line actions taken: Patient scheduled: Hospital Follow-up: High risk >15% 04/12/2024 in [facility] with GLENDY AYALA - Hospital follow up D/C [facility] 03.31.2024 Risk Score 18 Admitted for: New onset portal vein thrombosis 04/20/2024 in [facility] with STEVAN THOMAS - CT Follow Up/Chronic Autoimmune Hepatitis/Dr Bear patient, hospital DC f/u for AIH cirrhosis c/b new PVT 05/10/2024 in [facility] with JOSE LANDRY - PVT, HOSPITAL FOLLOW UP, PER ORDER- Juan Wilson MD, SAW DR. CALIXTO WHILE IN-PATIENT---NO AVAILABILITY 05/11/2024 in [facility] with MARCOS FARRELL - follow up 05/19/2024 in [place] [address] with NURSE [facility] - IRB# [id number], ROXANE Larkin, V3, Subj. ID# [id number], Fibroscan 05/19/2024 in [place] [address] with STUDY - IRB# [id number], ROXANE Larkin, V3, Subj. ID# [id number], Fibroscan 05/30/2024 in [facility] with NA CONTRERAS I - hospital DC f/u for CKD3a 06/12/2024 in [facility] with BERNADETTE MUNGUIA - 8 month follow up 07/05/2024 in [facility] with EVELIN REICH - 6 month f/u 07/14/2024 in [facility] with LISETH ORTIZ - follow up per pt req 07/[facility] [facility] - 6 month follow up 01/25/2025 in [facility] with ANGELINE PFEIFFER - 1 YR F/U for diabetic eye exam. Navigation Signature: Vanessa Sierra MA April 11, 2024 4:22 PM * Vanessa Sierra MA - 04/11/2024 1:17 PM EST POPULATION HEALTH NAVIGATION OUTREACH Action/I April 11, 2024 1:17 PM CM Pool Message Type: TCM Please assist with scheduling TCM Hospital Discharge Follow up. TCM Eligible until 04/14/24 Patient discharged from [facility] Discharge date: 03/31/24 Admitted for: New onset portal vein thrombosis Readmission Risk: 18 Outcome: 1st attempt Left message for patient to return call for scheduling assistance. Direct line and PCP office number provided to patient. My chart message also sent Reason for Outreach Community Monitoring/Network Navigator Pools & Phone Line: CM Pool Patient Contacted: Unable or unnecessary to reach patient: Left message [facility] sent Navigation Signature: Vanessa Sierra MA April 11, 2024 1:17 PM * Denae Coombs RN - 04/11/2024 12:58 PM EST Transitional Care Management (TCM) Follow-Up Note PCP Update / Actionable Items see note below Navigation Team Update / Actionable Items Navigation Team Please assist with scheduling TCM Hospital Discharge Follow up. TCM Eligible until 04/14/24 patient had decline pcp appt last week - but he is having new abd pain and would like to see pcp risk of 18% but missed the 7 day window for high risk patient due to his decline last week appt by 04/14/24 - would still be eligible for tcm - please call patient Thank you Patient Source: In-Network Discharge Follow-up outreach: TCM enrolled patient Outreach Summary: spoke with patient . declined pcp follow up last week called patient today as follow up states he is terrible - having increased abd pain and cramping - states that eating or not eating , or increasing fluids due not help denies diarrhea 04/20/24 next DDI appt 05/10/24 vasm appt advised he make a pcp appt - patient declined again and then accepted - sent to navigation to schedule advised inf symptoms get worse - return to ED - patient expressed understanding Patient discharged from [facility] Discharge date: 03/31/24 Admitted for: New onset portal vein thrombosis Readmission Risk: 18 Value-Based Contract: ACO Contact: Contact made with patient: Yes Spoke to: Patient Validation: Validated the person spoken to is actively involved in the patient's care. The patient was identified by Name and Date of . I'd like to get an update on how you're doing since our last phone call. Is now a good time to talk? Yes Symptoms: Are you feeling about the same, better or worse since leaving the hospital? Worse Patient indicated symptoms are worse. Based on licensed ecommerce marketing specialist, the following disposition isadvised: NO ACTION REQUIRED. - see note above Weekly Outreach: 1st Outreach Medications: Do you have any questions about taking your medications, including which medications you should be on, or do you need refills on your medications? No Patient Questions / Concerns: Do you have any questions related to your discharge? No Appointment / TCM Follow-Up: Have you had a follow-up visit with your Primary Care Provider or Specialist since you were discharged? No Do you need any assistance with scheduling or changing your follow-up appointments? Patient rosalio appointment - Routed to [facility] [[phone]] for scheduling telehealth visit (telephonic, virtual visit, or Facetime) within 14 days of discharge with PCP care team. Indicate hospital follow-up appointment needed within 14 days in Provider/FYI box. Education Patient and family educated on issues/questions related to reason for admission, transition of caretopics, and follow-up needed upon discharge. OAN[facility] Patient Education Videos ordered CKD Targets addressed / completed during outreach: Prevent readmission for 30 days Outreach Outcome: Continue TCM Outreach for remainder of 30 days Care Management partners utilized: Navigation Team Denae Coombs RN April 11, 2024 1:05 PM documented in this encounterMer[facility] History of Present illness Narrative* Denae Coombs RN - 04/04/2024 11:29 AM EST Transition Care Management (TCM) Initial Outreach PCP Update / Actionable Items see note below HRTIC TCM Home Visit Referral Source of Stratification: [facility] Hospital Admission Status: Discharged Readmission Risk Score: 18 Patient meets program referral criteria: No Patient does not qualify for High Risk TCM Home Visit program due to: Readmission Risk Score does not meet criteria Disposition: Patient does not qualify for HRTIC, will provide TCM outreach follow-up for 30-days N/A - No specialty updates needed Patient Source: In-Network Discharge Initial outreach: TCM discharge report Outreach Summary: spoke to patient - states he feels good states that he has been sob and lightheaded for 7 years , since moving to [place] - [facility] he is experiencing no increase in symptoms decline appt with pcp - states he is seeing all the specialties that he needs to see . Patient discharged from [facility] Discharge date: 03/31/24 Admitted for: New onset portal vein thrombosis Readmission Risk: 18 Value-Based Contract: ACO Contact: Contact made with patient: Yes Hi, my name is Denae Coombs RN and I am calling from the [facility] on behalf of your Primary Care Provider, Davis May MD. I understand you were recently in the hospital, so I am calling to check in with you to ensure you are feeling well now that you are home. May I ask you a few questions related to your hospital stay and well-being? Yes Spoke to: Patient Validation: Validated the person spoken to is actively involved in the patient's care. The patient was identified by Name and Date of . Symptoms: Are you feeling about the same, better or worse since leaving the hospital? Better Medications: Do you have any questions about taking your medications, including which medications you should be on, or do you need refills on your medications? No Medication Review: Declined at this time per patient preference Discharge Instructions: Your Discharge Instructions / After Visit Summary (AVS) are important in guiding you through the recovery process. Do you have any questions related to your discharge instructions? No Home Care: Were you discharged with home care? No Equipment: Do you have all the necessary equipment and supplies needed at your home? Not applicable Social: Your mental health is as important to us as your physical health. Would you mind answering a few questions on this topic? No, patient declines. Follow-Up Appointment: [Appointment / TCM Follow-up within 14 days] I would like to help you schedule a hospital follow-up virtual or telephone visit with your PCP. This is a great way for you to connect with your provider to ensure you have safely transitioned home.If you are agreeable, I will send your request to a risk intern who will contact and assist you with that appointment. This will give you an opportunity to ask any questions or address any concerns youmay have with your PCP. Inform the patient that if they have any questions or concerns prior to that appointment, to call their PCP's office right away. Appointment Action: No action required, patient declines appointment. Education Patient and family educated on issues/questions related to reason for admission, transition of caretopics, and follow-up needed upon discharge. OANH Patient Education Videos ordered CKD Targets addressed / completed during outreach: Contact patient within two (2) business days Outreach Outcome: Enrolled in TCM Care Management partners utilized: N/A Denae Coombs RN April 04, 2024 11:31 AM documented in this encounterMer[facility]01-13-2025 Telephone encounter Note * Telephone Encounter - Samy Duffy - 2024 11:05 AM EST Called and spoke with the patient regarding study IRB#[id number]. Patient agreed to schedule the visiton 05/19 at 11 am Samy Duffy [facility]01-13-[facility] Miscellaneous Notes* Telephone Encounter - LukesherylSamy sherwood Naelly Ra - 2024 11:05 AM EST Called and spoke with the patient regarding study IRB#[id number]. Patient agreed to schedule the visiton 05/19 at 11 am Samy Rivas Ra Clive documented in this encounterMercy [facility]01-08-2025 Telephone encounter Note * Telephone Encounter - Herminia Hinojosa RN - 03/29/2024 12:41 PM EST Called patient and instructed him to go to the Emergency Dept at [facility] as limited beds available for direct admissions at [facility]. Verbalized understanding. Herminia Hinojosa RN March 29, 2024 12:46 PM [facility]01-08-[facility] Miscellaneous Notes* Telephone Encounter - Herminia Hinojosa RN - 03/29/2024 12:41 PM EST Called patient and instructed him to go to the Emergency Dept at [facility] as limited beds available for direct admissions at [facility]. Verbalized understanding. Herminia Hinojosa RN March 29, 2024 12:46 PM * Telephone Encounter - Stevan Thomas MD - 03/29/2024 12:35 PM EST Called by radiology regarding finding of new PVT (with extension to SMV) on CT scan done today Discussed plan for admission for repeat EGD, starting anticoagulation. Will either try for direct admission or direct patient to ED if long wait documented in this encounterMercy [facility]01-08-2025 Telephone encounter Note * Telephone Encounter - Stevan Thomas MD - 03/29/2024 12:35 PM EST Called by radiology regarding finding of new PVT (with extension to SMV) on CT scan done today Discussed plan for admission for repeat EGD, starting anticoagulation. Will either try for direct admission or direct patient to ED if long wait [facility] History of Present illness Narrative* Hailee Biggs RN - 03/29/2024 11:00 AM EST Radiology Service Progress Note DATE OF SERVICE: March 29, 2024 TIME: 10:51 AM PATIENT WEIGHT: 175 LBS PATIENT IDENTITY VERIFICATION COMPLETED USING TWO [...] NEPHROPATHY RISK FACTORS: Patient age > 60 years, Diabetic: No, and History of Kidney surgery, Kidney neoplasm, Liver disease, and/or any recent Nephrotoxic Chemotherapyor other Nephrotoxic medications CREATININE: Creatinine Date Value Ref Range Status 03/23/2024 1.30 (H) 0.73 - 1.22 mg/dL Final 10/12/2023 1.39 (H) 0.73 - 1.22 mg/dL Final 08/30/2023 1.32 (H) 0.73 - 1.22 mg/dL Final Estimated Glomerular Filtration Rate Date Value Ref Range Status 03/23/2024 57 (L) >=60 mL/min/1.73m Final Comment: Estimated Glomerular Filtration Rate (eGFR) is calculated using the 2020 CKD-EPI creatinine equation. This equation utilizes serum creatinine, sex, and age as parameters. The creatinine assay has traceable calibration to isotope dilution- mass spectrometry. Refer to KDIGO guidelines for clinical interpretation. In patients with unstable renal function, e.g. those with acute kidney injury, the eGFRmay not accurately reflect actual GFR. eGFR- Date Value Ref Range Status 12/25/2020 >60 Final P.O.C.T. RESULTS: N/A March 29, 2024 TREATMENT: No Hydration needed. IV SITE: Ambulatory: A peripheral IV was started in the Right antecubital site with a Angio cath: 20 gauge. and A Saline lock was inserted per protocol IV SITE APPEARANCE: Clean,Dry and Intact SIGNATURE: Hailee Biggs RN PATIENT NAME: Mateus Yi DATE: March 29, 2024 TIME: 10:51 AM * Grace Alexander RT(R) - 03/29/2024 11:00 AM EST Radiology Service Progress Note PATIENT NAME: Mateus Yi DATE OF SERVICE: March 29, 2024 TIME: 11:06 AM PATIENT IDENTITY VERIFICATION COMPLETED USING TWO (2) IDENTIFIERS: Name and Date of confirmedby patient verbally and Name and Date of confirmed by identification band. FALL SCREENING: Has the patient had 2 falls in the last year or 1 fall with injury or currently using an Ambulatory Assistive Device (Walker, Cane, Wheelchair, Crutches, etc.)? No PATIENT GENDER DATA: Male PATIENT RELEVANT IMPLANT DATA REVIEWED: Yes PATIENT PRESENTS WITH AN IMPLANTABLE OR ATTACHED CUFF SETTER: No RADIOLOGY DEPARTMENT: CT; Exam(s) Completed: Liver PERIPHERAL IV DATA: Site assessment: Clean,Dry and Intact, Site disposition Discontinued SIGNED BY: RT Kailash(R) March 29, 2024 11:06 AM documented in this encounterMercy Health Def[facility] Hospital11-25-2024 History of Present illness Narrative* Bobby Owusu PA-C - 02/14/2024 10:50 AM ESTAssociated Order(s): Large Joint Arthro/Inj: L knee joint Post-Procedure Diagnose(s): Left knee pain, unspecified chronicity CHIEF COMPLAINT: Mateus Yi is a 73 year old male who presents today for Left knee pain/ cortisone injections PAIN EVALUATION 02/14/2024 1042 Pain Level: 4 Pain Location: Knee-Left Description: Throbbing Duration Amount of Time: 6 Duration Units: Weeks Frequency: Intermittent HISTORY OF PRESENT ILLNESS: Mateus is here for evaluation of acute on chronic left knee pain Denies new injury and has tried modifying activities, rest Unable to take NSAIDs or Tylenol regularly due to GI issues and history of autoimmune hepatitis Denies joint laxity or instability Denies change in activities REVIEW OF SYMPTOMS: Constitutional: patient denies any recent fever or significant change in weight Gastrointestinal: patient denies any current abdominal discomfort Musculoskeletal: as noted in the HPI Neurologic: as noted in the HPI SOCIAL HISTORY: Tobacco Use: Types: Cigars ALLERGIES: ALLERGIES Allergen Reactions Percocet [Oxycodone* Other: See Comments Pt states he doesn't have an allergy to percocet, but because of his reaction to Vicodin, he avoidsit. Vicodin [Hydrocodon* Anaphylaxis stopped breathing Hibiscus Hives, Shortness of Breath Valsartan Myalgia Cramps in legs, muscle pain Lidocaine Other: See Comments Dizziness, profuse sweating with application of topical lidocaine patch to abdomen; symptoms resolved with removal of patch. PAST MEDICAL HISTORY: 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 S/P ICD (internal cardiac defibrillator) procedure 03/09/2017 Sensorineural hearing loss Syncope Trochanteric bursitis of right hip PHYSICAL EXAMINATION: Patient's vitals and nursing notes were reviewed. Vitals: There were no vitals taken for this visit. Skin: Skin color, texture, turgor normal, no suspicious rashes or lesions noted Cardiovascular: no signs of upper or lower extremity edema Psychiatric: mood and affect are appropriate, patient is oriented to time, place and person Neurologic: sensation is grossly intact Lymphatic: no asymetric limb swelling noted General Appearance: Well appearing, alert, in no acute distress, well-hydrated, and well nourished Respiratory: no respiratory distress, no audible wheezing, no labored breathing, symmetric thoracicexcursion Left knee(s): Neurovascularly intact No erythema, warmth or breaks in the skin concerning for infection Range of motion appropriate 1+ joint effusion No joint laxity or instability Able to stand and ambulate IMAGING: No imaging was performed today. CLINICAL IMPRESSION / ASSESSMENT: (M25.562) Left knee pain, unspecified chronicity RECOMMENDATION / PLAN: Follow up- as needed We discussed treatment options and with her his limited ability to take anti- inflammatories and Tylenol he is interested in a cortisone injection as other conservative measures have not been helpful Tolerated procedure described below well. Large Joint Arthro/Inj: L knee joint Informed Consent Consent Obtained: Verbal [place] Protocol A moment to CARE was completed. SIGN IN Personnel directly involved with the procedure wore the appropriate PPE. Special Equipment: N/A Patient/Surrogate Stated/Verified: Patient name, Date of , Relevant allergies and Intended procedure TIME OUT Intended patient and procedure match the source document(s). Consent documented and matches the intended procedure. Relevant labs, photos, and/or imaging studies have been reviewed. Correct side/site marked and visible. Medications required for procedure verified. No fire risk assessment and interventions applicable. 02/14/2024 11:04 AM The procedure site was prepped in the usual sterile fashion. Site: L knee joint Medications: 40 mg triamcinolone acetonide 10 mg/mL Outcome: Tolerated well, no immediate complications Post-injection instructions were reviewed with the patient and the patient voiced understanding of these instructions. SIGN OUT No specimen collected. All instruments, equipment, possible retained foreign bodies accounted for. Post-procedure follow-up management communicated and Plan of Care Visit completed when applicable Follow up: if symptoms persist or worsen Films prior to visit: No additional imaging warranted. Verbal health education was given to patient. Patient verbalizes understanding and agrees with the treatment plan as detailed above. I spent a total of 30 minutes on the date of the service which included preparing to see the patient, [id number] patient care, completing clinical documentation, performing a medically appropriate examination, counseling and educating the patient/family/caregiver, ordering medications, tests, or p rocedures, and communicating results to the patient/family/caregiver. Bobby Owusu PA-C, SHIRAS documented in this encounterMercy [facility]11-25-2024 Telephone encounter Note * Telephone Encounter - Strait, Gali, OCCA - 02/14/2024 8:35 AM EST Patient requesting rx be sent to [facility]. Prescription Refill Information The patient has been identified by name and date of : Yes Caregiver verified no other encounters exist for this prescription request: Yes Caregiver confirmed with patient/requestor that no other refills are due, in the near future, with this provider at this time: Yes The last office visit in the department: 01/18/2024 Does the patient have a future office visit with this provider/department: Yes, 07/24/2024 Requested Prescriptions Pending Prescriptions Disp Refills cloNIDine HCl (CATAPRES) 0.1 mg tablet 270 tablet 1 Sig: Take 1.5 tablets by mouth two times a day. DEE DEE Alexandre February 14, 2024 8:36 AM [facility]11-25-[facility] Miscellaneous Notes* Telephone Encounter - Gali Easley OCCA - 02/14/2024 8:35 AM EST Patient requesting rx be sent to [facility]. Prescription Refill Information The patient has been identified by name and date of : Yes Caregiver verified no other encounters exist for this prescription request: Yes Caregiver confirmed with patient/requestor that no other refills are due, in the near future, with this provider at this time: Yes The last office visit in the department: 01/18/2024 Does the patient have a future office visit with this provider/department: Yes, 07/24/2024 Requested Prescriptions Pending Prescriptions Disp Refills cloNIDine HCl (CATAPRES) 0.1 mg tablet 270 tablet 1 Sig: Take 1.5 tablets by mouth two times a day. DEE DEE Alexandre February 14, 2024 8:36 AM documented in this encounterMercy Health [facility]11-04-2024 History of Present illness Narrative* Angeline Pfeiffer, OD - 01/24/2024 3:14 PM EST 1. Type 2 diabetes mellitus without retinopathy (HCC) Risk of diabetic changes and vision loss can be minimized by tight control of blood sugar, blood pressure, and cholesterol levels. Educated patient to continue care with primary care doctor and/or siebel solution architect to maintain optimum levels as they are important to avoid ocular complications. Encouraged patient to call the office immediately with any changes to vision or visual concerns. Advised to not wait until the next scheduled exam. 2. Combined forms of age-related cataract of both eyes Mild- monitor 3. Myopia, bilateral 4. Presbyopia Continue with new glasses 5. Drusen of left optic disc Stable- monitor Angeline Pfeiffer, OD January 24, 2024 3:14 PM documented in this encounterMercy Health [facility]11-01-2024 History of Present illness Narrative* Sury Mathias APRN.UTILIZATION REVIEWER - 01/21/2024 11:00 AM EDT Images from the original note were not included. Department of Dermatology Sury Mathias APRN.ZORAIDA 01/21/2024 Last visit in Dermatology: 10/19/2023 Objective/Assessment/Plan 1. AK (actinic keratosis) (5) Right Anterior Mandible, Right Buccal Cheek, Right Forehead, Right Parotid Area, Right Posterior Mandible Erythematous, hyperkeratotic papules Reviewed etiology, prognosis, and treatment options. Given treatment failures with LN2 and PDT, recommend efudex application to the affected areas twicedaily x2 weeks. OK to take breaks as needed for excessive irritation. R/b/a for the medication(s) including possible side effects discussed and reviewed with patient. Related Medications Fluorouracil (EFUDEX) 5 % cream Apply to affected area two times a day for 14 days. OK to take breaks as needed for excessive irritation. Follow-up as noted below or as needed. Sury Mathias APRN.ZORAIDA Chief Complaint: Patient presents with: Derm Problem Subjective and Objective HPI: Mateus Yi is a 73 year old male who presents for skin check: Desires: Localized exam of face only History of skin cancer?: No Actinic Keratosis follow up, previous treatment of LN2 Past medical history is reviewed. Medication list is reviewed. Physical Exam included: face Intake: SARA Brown APRN.UTILIZATION REVIEWER documented in this encounterMercy Health [facility] Hospital11-01-2024 Instructions* Patient Instructions* Sury Mathias APRN.ZORAIDA - 01/21/2024 8:20 AM EDT I recommend that you follow-up with one of my colleagues: -Bhumi Carlisle CNP ([place]) -Marcos Farrell PA-C ([place]) -Scarlett Rucker PA-C ([place]) documented in this encounterMercy Health Def[facility] Hospital10-29-2024 History of Present illness Narrative* Davis May MD - 01/18/2024 2:00 PM EDT Patient presents with: 6 Month Exam HPI: Patient presents today for office visit for follow up. HTN: Stopped monitoring BP. Has home cuff when needed. Some worsening shortness of breath. Still has some chest pain. Not new. Has a myocardial bridge. Seeing cardiology soon[place] Some headaches. Always with dizziness. Denies palpitations and syncope. No edema. Sees Cardiology fairly soon. Heartburn controlled. DM: Sees Endo. A1c stable 6.6 Follows with gi and hematology as well. No bleeding issues. No abd pain, bowel changes. No abd swelling. Having issues with his knee. Sees a chiropractor. Has to limit his walking chronically long distances. Its affecting his ability to stay as active as he would like. Will give him disability placard. Latest Ref Rng 11/30/2023 01/14/2024 WBC 3.70 - 11.00 k/uL 4.17 5.03 RBC 4.20 - 6.00 m/uL 3.94 (L) 4.49 Hemoglobin 13.0 - 17.0 g/dL 13.4 14.1 Hematocrit 39.0 - 51.0 % 37.7 (L) 42.3 MCV 80.0 - 100.0 fL 95.7 94.2 MCH 26.0 - 34.0 pg 34.0 31.4 MCHC 30.5 - 36.0 g/dL 35.5 33.3 RDW-CV 11.5 - 15.0 % 14.8 14.2 Platelet Count 150 - 400 k/uL 68 (L) 67 (L) MPV 9.0 - 12.7 fL 13.6 (H) 12.7 NRBC /100 WBC 0.0 0.0 Absolute nRBC <0.01 k/uL <0.01 <0.01 Neut% % 64.7 80.0 Abs Neut (ANC) 1.45 - 7.50 k/uL 2.70 4.02 Lymph% % 23.3 10.0 Abs Lymph 1.00 - 4.00 k/uL 0.97 (L) 0.50 (L) [place]% % 9.4 7.0 Abs [place] <0.87 k/uL 0.39 0.35 Eosin% % 2.2 2.0 Abs Eosin <0.46 k/uL 0.09 0.10 Baso% % 0.2 1.0 Abs Baso <0.11 k/uL <0.03 0.05 Platelet Estimate Decreased Red Cell Morph Reviewed: see results of individual morphologies Ovalocytes Few DTYPE Auto Manual Immature Gran % % 0.2 IMMATURE GRANS (ABS) <0.10 k/uL <0.03 Iron 41 - 186 ug/dL 74 92 TIBC 232 - 386 ug/dL 279 250 Transferrin Saturation 15.0 - 57.0 % 26.5 36.8 Hemoglobin A1C 4.3 - 5.6 % 6.6 (H) Estimated Average Glucose mg/dL 143 Ferritin 30.3 - 565.7 ng/mL 80.5 114.0 Immature Platelet Fraction 0.9 - 7.2 % 14.5 (H) Legend: (L) Low (H) High MEDICATIONS: Current Outpatient Medications Medication Sig glipiZIDE (GLUCOTROL XL) 5 mg 24 hr tablet Take 1 tablet by mouth once daily. mycophenolate Mofetil (CELLCEPT) 500 mg tablet Take 1 tablet by mouth two times a day. probenecid 500 mg tablet Take 1 tablet by mouth two times a day. amLODIPine (NORVASC) 5 mg tablet Take 1 tablet by mouth once daily. carvedilol (COREG) 12.5 mg tablet Take 1 tablet by mouth two times a day with meals. cloNIDine HCl (CATAPRES) 0.1 mg tablet Take 1.5 tablets by mouth two times a day. Blood-Glucose Sensor ([employer] G7 SENSOR) wilmer CHANGE SENSOR EVERY 10 days. USE FOR CONTINOUS GLUCOSEMONITORING. INSULIN USE. E11.9 OTC NUTRITIONAL SUPPLEMENT Take by mouth as directed. cholecalciferol, vitamin D3, (VITAMIN D3 ORAL) Take 1 tablet by mouth three times a week. Lactobacill 46-B.animal-inulin (PROBIOTIC-10, WITH INULIN,) 10 billion cell -100 mg cap Take 1 tablet by mouth once daily. pantoprazole DR (PROTONIX) 40 mg tablet Take 1 tablet by mouth two times a day. insulin degludec (TRESIBA FLEXTOUCH U-100) 100 unit/mL (3 mL) injection pen Inject 5 units once daily Insulin [place], Disposable, (BD ULTRAFINE III MINI PEN) 31 gauge x 3/16 USE WITH INSULIN PENS 1 TIME(S) DAILY tacrolimus IR (PROGRAF) 1 mg capsule Take 1 capsule by mouth two times a day. Amoxicillin 500 mg tablet 2000 mg by mouth 1-2 hours prior to dental procedures No current facility-administered medications for this visit. ALLERGIES: ALLERGIES Allergen Reactions Percocet [Oxycodone* Other: See Comments Pt states he doesn't have an allergy to percocet, but because of his reaction to Vicodin, he avoidsit. Vicodin [Hydrocodon* Anaphylaxis stopped breathing Hibiscus Hives, Shortness of Breath Valsartan Myalgia Cramps in legs, muscle pain Lidocaine Other: See Comments Dizziness, profuse sweating with application of topical lidocaine patch to abdomen; symptoms resolved with removal of patch. PAST MEDICAL HISTORY Diagnosis Date Arthritis of [...] at age 40's, 2 other uncles suddenly Social History Tobacco Use Smoking status: Former Types: Cigars Smokeless tobacco: Never Vaping Use Vaping status: Some Days Substances: THC, CBD Devices: Disposable Substance Use Topics Alcohol use: Not Currently Drug use: Yes Types: Marijuana Comment: medical marijuana Reviewed current medications, allergies, past medical history, surgical history, family history andsocial history today. REVIEW OF SYSTEMS All other reviewed and negative other than HPI. HEALTH MAINTENANCE: Reviewed health maintenance issues today and recommended the following in detail. BP Controlled (<130/80) Never done VITALS: BP 122/66 Pulse (!) 58 Ht 182.9 cm (6') Wt 83.2 kg (183 lb 6.8 oz) SpO2 95% BMI 24.88 kg/m Last 4 Encounter Wt Readings: Date: Wt: 01/14/2024 82.4 kg (181 lb 10.5 oz) 12/02/2023 82.3 kg (181 lb 8 oz) 10/20/2023 83.3 kg (183 lb 9.6 oz) 10/04/2023 82.8 kg (182 lb 9.6 oz) PHYSICAL EXAMINATION: General appearance: Well appearing, alert, [...] - ICD9: 425.11, ICD10: I42.1 (primary diagnosis) Follow with cardiology. Red flags for re-assessment reviewed with patient in detail. 2. Primary hypertension - ICD9: 401.9, ICD10: I10 - Controlled - Continue current medications 3. Hyperlipidemia LDL goal <100 - ICD9: 272.4, ICD10: E78.5 - Controlled - Continue current medications - Counseled on healthy diet and regular exercise 4. S/P ICD (internal cardiac defibrillator) procedure - ICD9: V45.02, ICD10: Z95.810 - no issues. 5. Hepatic cirrhosis, unspecified hepatic cirrhosis type, unspecified whether ascites present (HCC)- ICD9: 571.5, ICD10: K74.60 - has labs in January. 6. Portal vein thrombosis - ICD9: 452, ICD10: I81 - stable. 7. Controlled type 2 diabetes mellitus without complication, unspecified whether fci insulin use (HCC) - ICD9: 250.00, ICD10: E11.9 - Controlled - Continue current medications 8. Thrombocytopenia (HCC) - ICD9: 287.5, ICD10: D69.6 - follows closely with hematology 9. Iron deficiency anemia due to chronic blood loss - ICD9: 280.0, ICD10: D50.0 - stable. Davis May MD [facility] Telephone encounter Note * Telephone Encounter - Linda Adames MA - 12/28/2023 3:06 PM EDT Requester: Patient Patients last Endocrinology visit occurred 10/20/23 Follow-up evaluation has been established yes Upcoming Endocrinology Appointments - Next 365 Days No appointments to display . Requested Prescriptions Pending Prescriptions Disp Refills glipiZIDE XL (GLUCOTROL XL) 5 mg 24 hr tablet 30 tablet 0 Sig: Take 1 tablet by mouth once daily. Linda Adames MA [facility]10-08-2024 Miscellaneous Notes* Telephone Encounter - Linda Adames MA - 12/28/2023 3:06 PM EDT Requester: Patient Patients last Endocrinology visit occurred 10/20/23 Follow-up evaluation has been established yes Upcoming Endocrinology Appointments - Next 365 Days No appointments to display . Requested Prescriptions Pending Prescriptions Disp Refills glipiZIDE XL (GLUCOTROL XL) 5 mg 24 hr tablet 30 tablet 0 Sig: Take 1 tablet by mouth once daily. Linda Adames MA documented in [facility]10-[facility]24 Telephone encounter Note * Telephone Encounter - Raiza Rod LPN - 12/21/2023 2:31 PM EDT Prescription Refill Information The patient has been identified by name and date of : Yes Caregiver verified no other encounters exist for this prescription request: Yes Caregiver confirmed with patient/requestor that no other refills are due, in the near future, with this provider at this time: Yes The last office visit in the department: 07/16/23 Does the patient have a future office visit with this provider/department: Yes Requested Prescriptions Pending Prescriptions Disp Refills probenecid 500 mg tablet 180 tablet 1 Sig: Take 1 tablet by mouth two times a day. amLODIPine (NORVASC) 5 mg tablet 90 tablet 1 Sig: Take 1 tablet by mouth once daily. Raiza Rod LPN December 21, 2023 2:32 PM [facility]-01-[facility] Miscellaneous Notes* Telephone Encounter - Raiza Rod LPN - 12/21/2023 2:31 PM EDT Prescription Refill Information The patient has been identified by name and date of : Yes Caregiver verified no other encounters exist for this prescription request: Yes Caregiver confirmed with patient/requestor that no other refills are due, in the near future, with this provider at this time: Yes The last office visit in the department: 07/16/23 Does the patient have a future office visit with this provider/department: Yes Requested Prescriptions Pending Prescriptions Disp Refills probenecid 500 mg tablet 180 tablet 1 Sig: Take 1 tablet by mouth two times a day. amLODIPine (NORVASC) 5 mg tablet 90 tablet 1 Sig: Take 1 tablet by mouth once daily. Raiza Rod LPN December 21, 2023 2:32 PM documented in this encounterMer[facility]09-[facility]24 Telephone encounter Note * Telephone Encounter - Sally Rodriguez MA - 12/13/2023 9:52 AM EDT Requester: Patient Patients last Endocrinology visit occurred 10/20/2023. Follow-up evaluation has been established Upcoming Endocrinology Appointments - Next 365 Days No appointments to display . Requested Prescriptions Pending Prescriptions Disp Refills glipiZIDE XL (GLUCOTROL XL) 5 mg 24 hr tablet 30 tablet 0 Sig: Take 1 tablet by mouth once daily. Patient needs scheduled appointment No Sally Rodriguez MA [facility]09-23-[facility] Miscellaneous Notes* Telephone Encounter - Sally Rodriguez MA - 12/13/2023 9:52 AM EDT Requester: Patient Patients last Endocrinology visit occurred 10/20/2023. Follow-up evaluation has been established Upcoming Endocrinology Appointments - Next 365 Days No appointments to display . Requested Prescriptions Pending Prescriptions Disp Refills glipiZIDE XL (GLUCOTROL XL) 5 mg 24 hr tablet 30 tablet 0 Sig: Take 1 tablet by mouth once daily. Patient needs scheduled appointment No Sally Rodriguez MA documented in this encounterMer[facility]09-12-[facility] History of Present illness Narrative* Jason Quiroz MD - 12/02/2023 10:07 AM EDT (Elements copied from my note dated September 01, 2023, have been reviewed and updated where appropriate, and all reflect current assessment and medical decision making from today's encounter, December 02, 2023) HISTORY OF PRESENT ILLNESS: Mateus Yi is a 73 year old male see previously by ENAMEL DRIER Lashonda Aleman for iron deficiency anemia. Discussed with patient he had bleeding esophageal varices at the time. Responded well to iron therapy. 5 doses venofer in June 2023 200 mg each. Reviewed labs today. 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 Back as needed Written and verbal health teaching given to patient, patient verbalizes understanding and agrees with treatment plan. PAST MEDICAL HISTORY Diagnosis Date Arthritis of [...] at age 40's, 2 other uncles suddenly Social History Tobacco Use Smoking status: Former Types: Cigars Smokeless tobacco: Never Vaping Use Vaping Use: Some days Substances: THC, CBD Devices: Disposable Substance Use Topics Alcohol use: Not Currently Drug use: Yes Types: Marijuana Comment: medical marijuana ALLERGIES: ALLERGIES Allergen Reactions Percocet [Oxycodone* Other: See Comments Pt states he doesn't have an allergy to percocet, but because of his reaction to Vicodin, he avoidsit. Vicodin [Hydrocodon* Anaphylaxis stopped breathing Hibiscus Hives, Shortness of Breath Valsartan Myalgia Cramps in legs, muscle pain CURRENT OUTPATIENT MEDICATIONS: glipiZIDE (GLUCOTROL XL) 5 mg 24 hr tablet^Take 1 tablet by mouth once daily^Disp: 30 tablet^Rfl: 0 mycophenolate Mofetil (CELLCEPT) 500 mg tablet^Take 1 tablet by mouth twice daily^Disp: 180 tablet^Rfl: 0 carvedilol (COREG) 12.5 mg tablet^Take 1 tablet by mouth two times a day with meals.^Disp: 60 tablet^Rfl: 1 cholecalciferol, vitamin D3, (VITAMIN D3 ORAL)^Take 1 tablet by mouth three times a week.^Disp: ^Rfl: Lactobacill 46-B.animal-inulin (PROBIOTIC-10, WITH INULIN,) 10 billion cell -100 mg cap^Take 1 tablet by mouth once daily.^Disp: ^Rfl: probenecid 500 mg tablet^Take 1 tablet by mouth two times a day.^Disp: 180 tablet^Rfl: 1 amLODIPine (NORVASC) 5 mg tablet^Take 1 tablet by mouth once daily.^Disp: 90 tablet^Rfl: 1 triamcinolone (KENALOG) 0.025 % ointment^Apply to affected area 2 times daily for 1-2 weeks after PDT^Disp: 30 g^Rfl: 0 (Patient taking differently: Apply 1 g to affected area as needed. Apply to affected area 2 times daily for 1-2 weeks after PDT) pantoprazole DR (PROTONIX) 40 mg tablet^Take 1 tablet by mouth two times a day.^Disp: 60 tablet^Rfl: 11 cloNIDine HCl (CATAPRES) 0.1 mg tablet^Take 1.5 tablets by mouth two times a day.^Disp: 270 tablet^Rfl: 1 Blood-Glucose Sensor ([employer] G7 SENSOR) wilmer^CHANGE SENSOR EVERY 10 days. USE FOR CONTINOUS GLUCOSEMONITORING. INSULIN USE. E11.9^Disp: 9 Each^Rfl: 3 tacrolimus IR (PROGRAF) 1 mg capsule^Take 1 capsule by mouth two times a day.^Disp: 180 capsule^Rfl: 3 Amoxicillin 500 mg tablet^2000 mg by mouth 1-2 hours prior to dental procedures^Disp: 16 tablet^Rfl: 0 OTC NUTRITIONAL SUPPLEMENT^Take by mouth as directed.^Disp: 60 capsule^Rfl: 3 (Patient not taking: Reported on 09/01/2023) OTC NUTRITIONAL SUPPLEMENT^Take 1 tablet by mouth once daily. Take by mouth as directed.^Disp: 90 tablet^Rfl: 3 (Patient not taking: Reported on 09/01/2023) insulin degludec (TRESIBA FLEXTOUCH U-100) 100 unit/mL (3 mL) injection pen^Inject 5 units once daily^Disp: 3 mL^Rfl: 5 (Patient not taking: Reported on 06/18/2023) Insulin [place], Disposable, (BD ULTRAFINE III MINI PEN) 31 gauge x /16^USE WITH INSULIN PENS 1 TIME(S) DAILY^Disp: 100 Each^Rfl: 3 (Patient not taking: Reported on 09/01/2023) REVIEW OF SYSTEMS: GENERAL: No fever, night sweats, weight loss or malaise. All other reviewed and negative other than HPI. PHYSICAL EXAMINATION: VITAL SIGNS: BP 154/86 Pulse 65 Temp (Src) 98.7 (Tympanic) Resp 18 Ht 6' .5 (1.84m) Wt 182 lb (82.6kg) SpO2 97% BMI 24.33 kg/(m^2). GENERAL APPEARANCE: Well appearing, in no acute distress, alert and oriented x3, well-hydrated, well nourished. I spent a total of 20 minutes on the date of the service which included preparing to see the patient, [id number] patient care, completing clinical documentation, obtaining and/or reviewing separately obtained history, counseling and educating the patient/family/caregiver, ordering medications, paulino ts, or procedures, independently interpreting results (not separately reported), and communicating results to the patient/family/caregiver. Electronically Signed: Jsaon Quiroz MD December 02, 2023 documented in this encounterMer[facility]09-[facility]24 Telephone encounter Note * Telephone Encounter - Hever Pascal LPN - 11/29/2023 9:35 AM EDT Prescription Refill Information The patient has been identified by name and date of : Yes Caregiver verified no other encounters exist for this prescription request: Yes Caregiver confirmed with patient/requestor that no other refills are due, in the near future, with this provider at this time: Yes The last office visit in the department: 07/16/23 Does the patient have a future office visit with this provider/department: Yes, 01/17/24 Requested Prescriptions Pending Prescriptions Disp Refills cloNIDine HCl (CATAPRES) 0.1 mg tablet 270 tablet 1 Sig: Take 1.5 tablets by mouth two times a day. Hever Pascal LPN November 29, 2023 9:36 AM [facility]09-[facility] Miscellaneous Notes* Telephone Encounter - Hever Pascal LPN - 11/29/2023 9:35 AM EDT Prescription Refill Information The patient has been identified by name and date of : Yes Caregiver verified no other encounters exist for this prescription request: Yes Caregiver confirmed with patient/requestor that no other refills are due, in the near future, with this provider at this time: Yes The last office visit in the department: 07/16/23 Does the patient have a future office visit with this provider/department: Yes, 01/17/24 Requested Prescriptions Pending Prescriptions Disp Refills cloNIDine HCl (CATAPRES) 0.1 mg tablet 270 tablet 1 Sig: Take 1.5 tablets by mouth two times a day. Hever Pascal LPN November 29, 2023 9:36 AM documented in this encounterMer[facility]07-31-[facility] History of Present illness Narrative* Evelin Reich APRN.UTILIZATION REVIEWER - 10/20/2023 12:45 PM EDT OFFICE VISIT PROGRESS NOTE CC Mateus Yi is a 72 year old male who presents today for blood sugar review, DM med dose review, adjust. HPI Diagnosed with diabetes mellitus type II, ~ 05/2018 Last endocrine OV 03/24/2023 Some elements copied from my note 03/24/2023 which have been updated where appropriate, and all reflect current medical decision making from date of this visit. 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 Then he would try stopping marijuana DIETARY HISTORY: Breakfast: egg, toast, banana and [...] filled donuts Drinks water, carbonated flavored water (Pt will have 1-2 very large cream filled pastries daily, 5 days week minimally) Exercise: aerobics/weight training/stretching HPI 03/24/2023 States he is in study (liver) he will be exercising with recumbant bike 60 minutes 3 times a week Still would like to not take any DM medications HPI 10/20/2023 NOT wearing CGM - ran out, tried to fill out, and was told needed to be seen ENDO office ( [facility]) Was traveling for the past several months Here today for his follow up appointment Was in the [place] Then was in [place] with stopover [place] [facility] No issues with his blood sugars Is using all DM meds as per below CURRENT DM MEDS GLIPIZIDE 5 mg 1 tab daily TRESIBA 5 units daily SMBG Type of Monitor: Other DEXCOM Patient is compliant with CGM use and is benefiting from sensor use. Unable to download CGM today due to running out of sensors Frequency of Monitoring: Running blood sugars between 100-170 average 130-140 Values over past week: Highest ; Lowest Hypoglycemia: no Diet: as per above Exercise: active, ADLs walking DM REVIEW OF SYSTEMS Last Eye Exam : discontinued patient preference Last Podiatry Exam: discontinued patient preference Cardiorespiratory: negative, denies chest pain, pressure Claudication: no Dyslipidemia: No High Blood Pressure: Yes, controlled on medication CURRENT LABS Latest Ref Rng 08/30/2023 10/12/2023 Glucose 74 - 99 mg/dL 101 (H) 121 (H) BUN 9 - 24 mg/dL 28 (H) 30 (H) Creatinine 0.73 - 1.22 mg/dL 1.32 (H) 1.39 (H) Sodium 136 - 144 mmol/L 138 134 (L) Potassium 3.7 - 5.1 mmol/L 4.2 4.0 Chloride 98 - 107 mmol/L 104 101 CO2 22 - 30 mmol/L 25 24 Anion Gap 8 - 15 mmol/L 9 9 eGFR >=60 mL/min/1.73m 56 (L) 53 (L) Total Cholesterol, Nonfasting <200 mg/dL 156 Triglycerides, Nonfasting <150 mg/dL 62 HDL Cholesterol, Nonfasting >39 mg/dL 65 LDL Cholesterol, Nonfasting <100 mg/dL 79 Non HDL Cholesterol, Nonfasting <130 mg/dL 91 VLDL Cholesterol, Nonfasting <30 mg/dL 12 Total Chol/HDL Ratio, Nonfasting <5.10 mg/dL 2.40 LDL/HDL Ratio, Nonfasting <2.54 mg/dL 1.22 Creatinine, Ur Random (UCRR) 20.0 - 300.0 mg/dL 58.3 Albumin, Urine Random mg/L 86.5 Albumin/Creat Ratio <30 mg/g 148 (H) Hemoglobin A1C 4.3 - 5.6 % 6.1 (H) 6.6 (H) Estimated Average Glucose mg/dL 128 143 Vitamin D 25 Hydroxy 31.0 - 80.0 ng/mL 50.3 HGB A1C Component Ref Range & Units 4 d ago (10/12/23) 1 mo ago (08/30/23) 7 mo ago (03/19/23) 8 mo ago (01/29/23) 1 yr ago (09/18/22) 1 yr ago (04/09/22) 1 yr ago (11/10/21) Hemoglobin A1C 4.3 - 5.6 % 6.6 High 6.1 High CM 8.0 High CM 8.2 High HGB A1C Order: [id number] Component Ref Range & Units 5 d ago (03/19/23) 1 mo ago (01/29/23) 6 mo ago (09/18/22) 11 mo ago (04/09/22) 1 yr ago (11/10/21) 1 yr ago (06/20/21) 2 yr ago (10/18/20) Hemoglobin A1C 4.3 - 5.6 % 8.0 High 8.2 High CM 8.7 High CM 8.1 High CM 7.5 High CM 6.9 High Component Latest Ref Rng & Units 01/29/2023 Glucose 74 - 99 mg/dL 124 (H) BUN 9 - 24 mg/dL 27 (H) Creatinine 0.73 - 1.22 mg/dL 1.42 (H) Sodium 136 - 144 mmol/L 137 Potassium 3.7 - 5.1 mmol/L 4.0 Chloride 97 - 105 mmol/L 99 CO2 22 - 30 mmol/L 27 Anion Gap 9 - 18 mmol/L 11 eGFR >=60 mL/min/1.73m 52 (L) Hemoglobin A1C 4.3 - 5.6 % 8.2 (H) Estimated Average Glucose mg/dL 189 PAST MEDICAL HISTORY Diagnosis Date Arthritis of [...] at age 40's, 2 other uncles suddenly Social History Tobacco Use Smoking status: Former Types: Cigars Smokeless tobacco: Never Vaping Use Vaping Use: Some days Substances: THC, CBD Devices: Disposable Substance Use Topics Alcohol use: Not Currently Drug use: Yes Types: Marijuana Comment: medical marijuana Current Outpatient Medications Medication Sig carvedilol (COREG) 12.5 mg tablet take 1 tablet by mouth twice daily with meals glipiZIDE (GLUCOTROL XL) 5 mg 24 hr tablet Take 1 tablet by mouth once daily mycophenolate Mofetil (CELLCEPT) 500 mg tablet Take 1 tablet by mouth twice daily OTC NUTRITIONAL SUPPLEMENT Take by mouth as directed. cholecalciferol, vitamin D3, (VITAMIN D3 ORAL) Take 1 tablet by mouth three times a week. Lactobacill 46-B.animal-inulin (PROBIOTIC-10, WITH INULIN,) 10 billion cell -100 mg cap Take 1 tablet by mouth once daily. probenecid 500 mg tablet Take 1 tablet by mouth two times a day. amLODIPine (NORVASC) 5 mg tablet Take 1 tablet by mouth once daily. triamcinolone (KENALOG) 0.025 % ointment Apply to affected area 2 times daily for 1-2 weeks after PDT (Patient taking differently: Apply 1 g to affected area as needed. Apply to affected area 2 timesdaily for 1-2 weeks after PDT) pantoprazole DR (PROTONIX) 40 mg tablet Take 1 tablet by mouth two times a day. cloNIDine HCl (CATAPRES) 0.1 mg tablet Take 1.5 tablets by mouth two times a day. insulin degludec (TRESIBA FLEXTOUCH U-100) 100 unit/mL (3 mL) injection pen Inject 5 units once daily Insulin [place], Disposable, (BD ULTRAFINE III MINI PEN) 31 gauge x 3/16 USE WITH INSULIN PENS 1 TIME(S) DAILY Blood-Glucose Sensor ([employer] G7 SENSOR) wilmer CHANGE SENSOR EVERY 10 days. USE FOR CONTINOUS GLUCOSEMONITORING. INSULIN USE. E11.9 tacrolimus IR (PROGRAF) 1 mg capsule Take 1 capsule by mouth two times a day. Amoxicillin 500 mg tablet 2000 mg by mouth 1-2 hours prior to dental procedures No current facility-administered medications for this visit. ALLERGIES Allergen Reactions Percocet [Oxycodone* Other: See Comments Pt states he doesn't have an allergy to percocet, but because of his reaction to Vicodin, he avoidsit. Vicodin [Hydrocodon* Anaphylaxis stopped breathing Hibiscus Hives, Shortness of Breath Valsartan Myalgia Cramps in legs, muscle pain Lidocaine Other: See Comments Dizziness, profuse sweating with application of topical lidocaine patch to abdomen; symptoms resolved with removal of patch. REVIEW OF SYSTEMS - POSITIVES IN BOLD [...] hypertension, CHF or palpitations PHYSICAL EXAMINATION: BP 130/76 Pulse 62 Temp 37.2 C (98.9 F) (Temporal Artery) Ht 182.9 cm (6') Wt 83.3 kg (183 lb 9.6 oz) SpO2 95% BMI 24.90 kg/m GENERAL: alert and appropriate, in no distress and well-hydrated, well nourished SKIN: no rash noted HEAD: normocephalic, no abnormality or lesion noted EYES: PERRL NECK: full ROM, no cervical LNs noted ACANTHOSIS: none noted EXTREMITIES: normal NEUROLOGIC: no obvious deficit ASSESSMENT: (E11.65) Poorly controlled type 2 diabetes mellitus (HCC) (primary encounter diagnosis) Comment: Well controlled, will cont per current, no changes at this time Patient is compliant with CGM use and is benefiting from sensor use. Recommended diet: Low carbohydrate and Low saturated [...] A1C Evelin Reich CNP documented in this encounterMer[facility]-30-[facility]24 Instructions* Patient Instructions* Sury Mathias APRN.ZORAIDA - 10/19/2023 2:53 PM EDT SKIN CARE AFTER CRYOSURGERY The skin's response to cryosurgery (freezing) can be mild to severe, depending on the depth of the freeze and location of the area treated. You may have minimal redness and swelling with little discomfort or significant discoloration and blistering with considerable discomfort. A burning sensation in the skin may last from several minutes to several hours after the procedure. Follow these instructions when caring for an area treated by cryosurgery: 1. Please clean the area every day with gentle soap and water. It is not necessary to cover the site with a bandage. However, it may be used for protection and it must be changed daily. Do not leave a soiled or wet bandage on the wound. 2. If you are experiencing discomfort you may use a cool compress, elevate the area or take over the counter pain relievers. 3. Apply Vaseline or Aquaphor daily to the site. This can help with itching, irritation, and discomfort. -The lesion may take 2-4 weeks to fully resolve. Depending on the severity of treatment and lesion treated, it may take longer. -DO NOT USE NEOSPORIN OR BACITRACIN as there is a fairly high incidence of allergic response to these products. -You may experience some mild discomfort, redness, swelling, and/or a clear discharge from the wound after your procedure. Severe pain, worsening swelling, and foul-smelling discharge from the site are NOT to be expected. If you have concerns about how your wounds are healing, please send your provider a [employer] message or call . documented in this encounterMer[facility]07-30-[facility]24 History of Present illness Narrative* Sury Mathias APRN.CNP - 10/19/2023 2:30 PM EDT Images from the original note were not included. Department of Dermatology Sury Mathias APRN.CNP 10/19/2023 Last visit in Dermatology: 06/22/2023 Objective/Assessment/Plan 1. AK (actinic keratosis) (5) Philtrum, Right Buccal Cheek (3), Right Parotid Area Erythematous, hyperkeratotic papules Discussed treatment options, recommend LN2 today. May consider field treatment (efudex) in the winter time. R/b/a for the medication(s) including possible side effects discussed and reviewed with patient. CRYOTHERAPY SKIN LESION - Philtrum, Right Buccal Cheek (3), Right Parotid Area Complexity: simple Destruction method: cryotherapy Informed consent: discussed and consent obtained Timeout: patient name, date of , surgical site, and procedure verified Lesion destroyed using liquid nitrogen: Yes Cryotherapy cycles: 2 Outcome: patient tolerated procedure well with no complications Post-procedure details: wound care instructions given Additional details: I discussed treatment options with the patient. The risks of blistering, infection, scarring, damage to underlying structures and potential need for future procedures discussed. The patient verbalized understanding and desires us to proceed. Follow-up as noted below or as needed. Chief Complaint: Patient presents with: Actinic Keratosis Subjective and Objective HPI: Mateus Yi is a 73 year old male who presents for: #1 AK Location: face Symptoms/Course: patient states lesions never fully resolved - unsure if the therapy was effective Current Treatment: none Past Treatment: s/p PDT 06/2023 Past medical history is reviewed. Medication list is reviewed. Physical Exam included: face Intake: Arlet Duckworth, SARA Mathias APRN.UTILIZATION REVIEWER documented in this encounterMer[facility] Telephone encounter Note * Telephone Encounter - Myra Tinajero RN - 10/14/2023 4:43 PM EDT Per Ying Sheffield at [facility] should be good to go as long as the [facility] staff faxed over the addended OV notes from [facility]. Please advise that this has been done. Myra Tinajero RN October 14, 2023 4:44 PM [facility]07-25-[facility] Miscellaneous Notes* Telephone Encounter - Myra Tinajero RN - 10/14/2023 4:43 PM EDT Per Ying Sheffield at [facility] - He should be good to go as long as the [facility] staff faxed over the addended OV notes from [facility]. Please advise that this has been done. Myra Tinajero RN October 14, 2023 4:44 PM * Telephone Encounter - Myra Tinajero RN - 10/14/2023 4:06 PM EDT Email sent to [facility] to inquire on the accuracy of this statement or if Pt will be able to get more sensors prior to his appointment. Myra Tinajero RN October 14, 2023 4:07 PM documented in this encounterMer[facility]07-[facility]24 Telephone encounter Note * Telephone Encounter - Myra Tinajero RN - 10/14/2023 4:06 PM EDT Email sent to [facility] rep to inquire on the accuracy of this statement or if Pt will be able to get more sensors prior to his appointment. Myra Tinajero RN October 14, 2023 4:07 PM [facility] Telephone encounter Note* Telephone Encounter - Evelin Reich APRN.CNP - 10/14/2023 10:50 AM EDT addended [facility] Miscellaneous Notes* Telephone Encounter - Evelin Reich APRN.CNP - 10/14/2023 10:50 AM EDT addended * Telephone Encounter - Linda Adames MA - 10/14/2023 9:00 AM EDT Received document request sent to providers in [facility] for review and completion I will print and fax when completed. Linda Adames MA documented in this encounterMer[facility]07-25-2024 Telephone encounter Note * Telephone Encounter - Lidna Adames MA - 10/14/2023 9:00 AM EDT Received document request sent to providers in [facility] for review and completion I will print and fax when completed. Linda Adames MA [facility]07-[facility] History of Present illness Narrative* Bernadette Munguia MD - 10/04/2023 3:20 PM EDT Images from the original note were not included. [facility] Cardiology ([address]) [address] [place] [id number] OUTPATIENT VISIT DATE 10/04/2023 PRIMARY CARE PHYSICIAN: Davis May [address] [facility] [place] [address] HISTORY OF PRESENT ILLNESS: Mr. Yi is a 73 year old gentleman with a history of hypertrophic cardiomyopathy with ICD implantation in 2012, angiographically normal coronary arteries on prior catheterization 2012, hypertension, and autoimmune hepatitis who presents for follow-up. She was taking a cruise in [place] about a month ago. Near the end of his cruise he had a day where he developed severe chest pressure radiating to his back. The pain persisted he was taken to a local hospital. He was kept on 24-hour observation.He had copies of his blood work. His cardiac enzymes were unremarkable. He was discharged. He has not had recurrent symptoms since hospital discharge. He still complains of occasional pinching feeling on the left side of his chest not necessarily associated with exertion and usually short and self-limited. He denies symptoms of shortness of breath or dyspnea on exertion. He has not had symptoms concerning for CHF including PND, orthopnea, or lower extremity edema. He has not had palpitations, lightheadedness, dizziness, syncope, or ICD discharges. PAST CARDIAC HISTORY: He underwent ICD placement in 2012 after a syncopal episode. [facility] 06/02/12: EF 75%, LM, Circumflex and RCA [...] Tobacco Use Smoking status: Former Types: Cigars Smokeless tobacco: Never Vaping Use Vaping Use: Some days Substances: THC, CBD Devices: Disposable Substance Use Topics Alcohol use: Not Currently Drug use: Yes Types: Marijuana Comment: medical marijuana FAMILY HISTORY Problem Relation Age of Onset Cataract Father Heart Father Hypertension Father Cancer Brother lung Heart disease Brother pacemaker. cardiac ablation Alcohol/Drug Brother No Known Problems Son Heart Paternal Uncle suddenly at age 40's, 2 other uncles suddenly ALLERGIES: ALLERGIES Allergen Reactions Percocet [Oxycodone* Other: See Comments Pt states he doesn't have an allergy to percocet, but because of his reaction to Vicodin, he avoidsit. Vicodin [Hydrocodon* Anaphylaxis stopped breathing Hibiscus Hives, Shortness of Breath Valsartan Myalgia Cramps in legs, muscle pain Lidocaine Other: See Comments Dizziness, profuse sweating with application of topical lidocaine patch to abdomen; symptoms resolved with removal of patch. MEDICATIONS: carvedilol (COREG) 12.5 mg tablet^take 1 tablet by mouth twice daily with meals^Disp: 60 tablet^Rfl: 0 glipiZIDE (GLUCOTROL XL) 5 mg 24 hr tablet^Take 1 tablet by mouth once daily^Disp: 30 tablet^Rfl: 0 mycophenolate Mofetil (CELLCEPT) 500 mg tablet^Take 1 tablet by mouth twice daily^Disp: 180 tablet^Rfl: 0 OTC NUTRITIONAL SUPPLEMENT^Take by mouth as directed.^Disp: 60 capsule^Rfl: 3 OTC NUTRITIONAL SUPPLEMENT^Take 1 tablet by mouth once daily. Take by mouth as directed.^Disp: 90 tablet^Rfl: 3 cholecalciferol, vitamin D3, (VITAMIN D3 ORAL)^Take 1 tablet by mouth three times a week.^Disp: ^Rfl: Lactobacill 46-B.animal-inulin (PROBIOTIC-10, WITH INULIN,) 10 billion cell -100 mg cap^Take 1 tablet by mouth once daily.^Disp: ^Rfl: probenecid 500 mg tablet^Take 1 tablet by mouth two times a day.^Disp: 180 tablet^Rfl: 1 amLODIPine (NORVASC) 5 mg tablet^Take 1 tablet by mouth once daily.^Disp: 90 tablet^Rfl: 1 triamcinolone (KENALOG) 0.025 % ointment^Apply to affected area 2 times daily for 1-2 weeks after PDT^Disp: 30 g^Rfl: 0 (Patient taking differently: Apply 1 g to affected area as needed. Apply to affected area 2 times daily for 1-2 weeks after PDT) pantoprazole DR (PROTONIX) 40 mg tablet^Take 1 tablet by mouth two times a day.^Disp: 60 tablet^Rfl: 11 cloNIDine HCl (CATAPRES) 0.1 mg tablet^Take 1.5 tablets by mouth two times a day.^Disp: 270 tablet^Rfl: 1 insulin degludec (TRESIBA FLEXTOUCH U-100) 100 unit/mL (3 mL) injection pen^Inject 5 units once daily^Disp: 3 mL^Rfl: 5 Insulin [place], Disposable, (BD ULTRAFINE III MINI PEN) 31 gauge x 06/04^USE WITH INSULIN PENS 1 TIME(S) DAILY^Disp: 100 Each^Rfl: 3 Blood-Glucose Sensor ([employer] G7 SENSOR) wilmer^CHANGE SENSOR EVERY 10 days. USE FOR CONTINOUS GLUCOSEMONITORING. INSULIN USE. E11.9^Disp: 9 Each^Rfl: 3 tacrolimus IR (PROGRAF) 1 mg capsule^Take 1 capsule by mouth two times a day.^Disp: 180 capsule^Rfl: 3 Amoxicillin 500 mg tablet^2000 mg by mouth 1-2 hours prior to dental procedures^Disp: 16 tablet^Rfl: 0 REVIEW OF SYSTEMS: Review of Systems Constitutional: [...] Psychiatric/Behavioral: Negative for depression. PHYSICAL EXAMINATION: BP 154/85 Pulse 61 Ht 6' .5 (1.84m) Wt 182 lb 9.6 oz (82.8kg) SpO2 95% BMI 24.41 kg/(m^2). General: Pleasant gentleman sitting appears comfortable [...] Rest FBP LVEF % 61 60 Echocardiogram 04/15/2023: - Exam indication: HOCM - The left ventricle is normal in size. There is left ventricular hypertrophy. Left ventricular systolic function is normal. EF = 54 5% (2D biplane) Grade I left ventricular diastolic dysfunction. - The right ventricle is normal in size. Right ventricular systolic function is normal. - The left atrial cavity is severely dilated. - The visualized aorta is borderline dilated with a maximal dimension of 4.0 cm. - There is mild (1+) mitral regurgitation. - Rest (59 bpm): Mild chordal PATRICIA, Mild MR, LVOT peak gradient 12 mmHg. -With Valsalva (59 bpm): Mild chordal PATRICIA, Mild MR, LVOT peak gradient 18 mmHg. - Amyl not administered per Dr. Hogan. - Exam was compared with the prior CC echocardiographic exam performed on 07/28/2022. Slight higher gradients (previously 5 mmHg at rest, 13 mmHg with Valsalva). Echocardiogram 07/28/2022: - The left ventricle is normal in size. There is severe septal asymmetric left ventricular hypertrophy. Left ventricular systolic function is normal. EF = 60 5% (visual est.) Grade I left ventriculardiastolic dysfunction. - The right ventricle is normal in size. Right ventricular systolic function is normal. - The left atrial cavity is severely dilated. - The visualized aorta is dilated with a maximal dimension of 4.1 cm. - At rest mild chordal PATRICIA with an LVOT gradient of 6 mmHg, trivial-1+ MR. - With valsalva LVOT gradient of 13 mmHg, no significant change with PATRICIA or MR. - Amyl unavailable. -Speckled myocardium concerning for infiltrative disease present. Echocardiogram 11/19/2020: - The left ventricle is [...] CC echocardiographic exam performed on 09/05/2019. Gradients arelower. DUAL CHAMBER ICD REMOTE EVALUATION 06/26/2023: PRESENTING EGM: /VS, Sinus Rhythm. BATTERY STATUS: Estimated time remaining to KIMBER is 2.5 years. COUNTERS SINCE: 03/10/23 ATRIAL ARRHYTHMIAS: There have been no new triggered episodes of atrial high rates. VENTRICULAR ARRHYTHMIAS: There have been 6 new ventricular detections. Available EGMs show a combination of NSVT and what appears to be KILO. The 2 EGMs showing KILO are both clustered on 03/27/23 which is consistent with a possible date of an endoscopy procedure at an outside facility. LEAD MEASUREMENTS: Sensing is appropriate. Review of the lead impedance trends are normal. OTHER DIAGNOSTICS: RV pacing 0%. I have personally reviewed the Laboratory Testing and Echocardiogram. IMPRESSION: Mr. Yi is a 72 year old gentleman with a history of hypertrophic cardiomyopathy and prior ICD implantation in 2012. He had undergone cardiac catheterization before his ICD implantation which demonstrated no significant coronary disease and possible mild LAD bridge. He is also treated for hyperten nanette. He has a history of autoimmune hepatitis and is currently on therapy. He presents the office for routine follow-up PLAN AND RECOMMENDATIONS: 1. Hypertrophic obstructive cardiomyopathy (HOCM) (HCC) - ICD9: 425.11, ICD10: I42.1 (primary diagnosis) Echocardiogram March 2023. Relative results were reviewed with the patient. Some evidence of chordal PATRICIA. He has not had symptoms concerning for CHF. Continue current medical therapy 2. Other chest pain - ICD9: 786.59, ICD10: R07.89 Atypical chest pain symptoms unlikely related to obstructive coronary disease. He had an episode during his travels with severe chest pressure cardiac workup was negative for acute coronary syndrome.He has not had recurrent symptoms. He had a stress test in November 2020 which was unremarkable. 3. Primary hypertension - ICD9: 401.9, ICD10: I10 Somewhat elevated in the office today. Usually well-controlled according to patient and home blood pressure monitoring 4. Hyperlipidemia LDL goal <100 - ICD9: 272.4, ICD10: E78.5 Most recent fasting lipid panel August 2023 was reviewed. LDL cholesterol 79 mg/dL 5. Venous insufficiency - ICD9: 459.81, ICD10: I87.2 6. S/P ICD (internal cardiac defibrillator) procedure - ICD9: V45.02, ICD10: Z95.810 Bernadette Munguia MD documented in this encounterMer[facility]07-[facility]24 Telephone encounter Note * Telephone Encounter - Sally Rodriguez MA - 10/04/2023 2:17 PM EDT Faxed over patient's OV notes to [facility] to complete CGM order. Received confirmation and filed along with other [facility] orders Sally Rodriguez MA [facility]07-15-2024 Miscellaneous Notes* Telephone Encounter - Sally Rodriguez MA - 10/04/2023 2:17 PM EDT Faxed over patient's OV notes to [facility] [place] CGM order. Received confirmation and filed along with other [facility] orders Sally Rodriguez MA documented in this encounterMercy [facility]07-12-2024 Instructions* Patient Instructions* Derrek Bear MD - 10/01/2023 11:26 AM EDT BONE MINERAL DENSITY PATIENT INSTRUCTIONS Bone mineral density testing measures the amount of calcium in certain parts of your bones. This information determines how strong your bones are. The test is used to detect osteoporosis, a disease in which the bone's mineral content and density are low, increasing a person's risk of fractures. Thelumbar spine (lower back) and the hip are the skeletal sites usually examined. For the test, remember that: 1. You cannot take this test if you are . 2. Eat a normal diet on the day of the test. 3. Take your medications as you normally would. 4. DO NOT take calcium supplements (such as Tums) for 24 hours before the test. 5. On the day of the test, leave valuables (jewelry or credit cards) at home. 6. The test should be performed prior to oral, rectal or IV contrast studies, or at least 7 days after any of these studies. For the test, you may be asked to wear a hospital gown. You will lie on your back, on a padded table, in a comfortable position. Generally, you can resume your usual activities immediately. documented in this encounterMercy [facility]07-11-2024 History of Present illness Narrative* Char Ku - 09/30/2023 2:34 PM EDTSummary: IRB [id number] VCTE / Fibroscan performed 03/04/2023 Images from the original note were not included. documented in this encounterMercy [facility]07-09-2024 History of Present illness Narrative* Derrek Bear MD - 09/28/2023 11:52 AM EDT HEPATOLOGY CLINIC - ESTABLISHED PATIENT Chief Complaint: follow-up HPI: Mateus Yi is a 73 year old male who presents for follow-up of autoimmune hepatitis related cirrhosis. Interim events - had an episode on his recent cruise - after spending a day walking around, came back to this cruise ship and developed chest and back pressure; this increased to the point that he sought medical care; was admitted to a local hospital's cardiac unit, reportedly had blood work and ECG which was reassuring; his will bring these documents to their next visit with cardiology; did not have any cardiac catheterization or intervention; was treated with aspirin and IV fluids, with resolution of symptoms - main complaint today is RUQ abdominal pain - could occur multiple times per day, comes out of theblue, no clear trigger, lasts 1-2 minutes, then resolves; no relationship to oral intake; some worsening with positional change Past Medical History: 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 S/P ICD (internal cardiac defibrillator) procedure 03/09/2017 Sensorineural hearing loss Syncope Trochanteric bursitis of right hip Family History: FAMILY HISTORY Problem Relation Age of Onset Cataract Father Heart Father Hypertension Father Cancer Brother lung Heart disease Brother pacemaker. cardiac ablation Alcohol/Drug Brother No Known Problems Son Heart Paternal Uncle suddenly at age 40's, 2 other uncles suddenly Social History: Social History Tobacco Use Smoking status: Former Types: Cigars Smokeless tobacco: Never Vaping Use Vaping Use: Some days Substances: THC, CBD Devices: Disposable Substance Use Topics Alcohol use: Not Currently Drug use: Yes Types: Marijuana Comment: medical marijuana Current Outpatient Medications on File Prior to Visit Medication Sig carvedilol (COREG) 12.5 mg tablet take 1 tablet by mouth twice daily with meals glipiZIDE (GLUCOTROL XL) 5 mg 24 hr tablet Take 1 tablet by mouth once daily mycophenolate Mofetil (CELLCEPT) 500 mg tablet Take 1 tablet by mouth twice daily OTC NUTRITIONAL SUPPLEMENT Take by mouth as directed. OTC NUTRITIONAL SUPPLEMENT Take 1 tablet by mouth once daily. Take by mouth as directed. cholecalciferol, vitamin D3, (VITAMIN D3 ORAL) Take 1 tablet by mouth three times a week. Lactobacill 46-B.animal-inulin (PROBIOTIC-10, WITH INULIN,) 10 billion cell -100 mg cap Take 1 tablet by mouth once daily. probenecid 500 mg tablet Take 1 tablet by mouth two times a day. amLODIPine (NORVASC) 5 mg tablet Take 1 tablet by mouth once daily. triamcinolone (KENALOG) 0.025 % ointment Apply to affected area 2 times daily for 1-2 weeks after PDT (Patient taking differently: Apply 1 g to affected area as needed. Apply to affected area 2 timesdaily for 1-2 weeks after PDT) pantoprazole DR (PROTONIX) 40 mg tablet Take 1 tablet by mouth two times a day. cloNIDine HCl (CATAPRES) 0.1 mg tablet Take 1.5 tablets by mouth two times a day. insulin degludec (TRESIBA FLEXTOUCH U-100) 100 unit/mL (3 mL) injection pen Inject 5 units once daily Insulin [place], Disposable, (BD ULTRAFINE III MINI PEN) 31 gauge x 3/16 USE WITH INSULIN PENS 1 TIME(S) DAILY Blood-Glucose Sensor ([employer] G7 SENSOR) wilmer CHANGE SENSOR EVERY 10 days. USE FOR CONTINOUS GLUCOSEMONITORING. INSULIN USE. E11.9 tacrolimus IR (PROGRAF) 1 mg capsule Take 1 capsule by mouth two times a day. Amoxicillin 500 mg tablet 2000 mg by mouth 1-2 hours prior to dental procedures Current Facility-Administered Medications on File Prior to Visit Medication sodium chloride 0.9 % (flush) 10 mL (BD POSIFLUSH) I have confirmed and edited as necessary, the PFSH and ROS obtained by others. Complications of Cirrhosis: 1. Ascites: No 2. SBP: No 3. Non-bleeding varices: Yes 4. Variceal hemorrhage: Yes 5. Portosystemic encephalopathy: No 6. Hepatorenal syndrome: No 7. Hepatopulmonary syndrome: No 8. Hepatic hydrothorax: No 9. Recurrent cholangitis (PSC): N/A Vitals: BP 148/83[Pt c/o frequent h/a, nausea, dizziness, none at this time. No distress noted. Dr notified.[ Pulse 54[Pt c/o frequent h/a, nausea, dizziness. No distress noted. Dr notified.[ Temp (Src) 97.9 (Temporal) Ht 6' .5 (1.84m) Wt 177 lb 0.5 oz (80.3kg) SpO2 97% BMI 23.67 kg/(m^2). Physical Exam: GENERAL: no apparent distress, pleasant HENT: no lymphadenopathy EYES: no scleral icterus LUNGS: clear to auscultation bilaterally CARDIAC: regular rate and rhythm, normal S1, S2, no murmurs ABDOMEN: no ascites, no hepatosplenomegaly, no tenderness, rebound, or guarding EXTREMITIES: no edema. NEURO: AOx3. No asterixis SKIN: no jaundice Laboratory: CBC Hemoglobin (g/dL) Date Value 08/30/2023 13.0 12/25/2020 13.8 Hematocrit (%) Date Value 08/30/2023 38.3 12/25/2020 39.6 WBC (k/uL) Date Value 08/30/2023 2.98 12/25/2020 4.92 Platelet Count (k/uL) Date Value 08/30/2023 58 12/25/2020 62 CMP Glucose 101 08/30/2023 BUN 28 08/30/2023 Creatinine 1.32 08/30/2023 Sodium 138 08/30/2023 Potassium 4.2 08/30/2023 Chloride 104 08/30/2023 CO2 25 08/30/2023 Protein, Total 7.1 08/30/2023 Albumin 3.8 08/30/2023 Calcium 9.0 08/30/2023 Alkaline Phosphatase 180 08/30/2023 Bilirubin, Total 0.7 08/30/2023 AST 43 08/30/2023 ALT 40 08/30/2023 PT/INR AFP Lab Results Component Value Date AFP 4.8 07/09/2023 IMAGING STUDIES: US Liver 09/28/2023 IMPRESSION: Cirrhosis and portal hypertension. Ill-defined hypoechoic region in the right lobe is again seen and measures slightly larger than on the prior ultrasound. This is been seen on multiple prior ultrasounds and had no correlate on multiple prior liver CTs. This may be an area of parenchymal heterogeneity rather than a true lesion although continued surveillance is recommended. Patent hepatic vessels with appropriately directed flow. Fibroscan 09/28/2023 Please refer to get images report for individual readings Number of readings: 10 IQR %: 15% E (kpa): 18.0 CAP: 230 Impression The reading was adequate. FS =18.0 kPA. The CAP score is 230 and corresponds to steatosis grade of S0. The fibrosis interpretation threshold for autoimmune hepatitis diagnosis in Fibroscan is not well-established or validated and the reading may serve as a reference point for follow up. Impression/Recommendations Assessment and Plan: In conclusion, Mateus Yi is a 73 year old male with PMH autoimmune hepatitis with bridging fibrosis and chronic inflammation on biopsy in 2019 currently being treated with tacrolimus and MMF, DM-2, HTN, HCM w/ syncope s/p ICD in 2012 who presents for follow-up. 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 MELD-Na: {MELD 3.0: 12 at 07/09/2023 12:19 PM MELD-Na: 13 at 07/09/2023 12:19 PM Calculated from: Serum Creatinine: 1.35 mg/dL at 07/09/2023 12:19 PM Serum Sodium: 139 mmol/L (Using max of 137 mmol/L) at 07/09/2023 12:19 PM Total Bilirubin: 0.6 mg/dL (Using min of 1 mg/dL) at 07/09/2023 12:19 PM Serum Albumin: 4.1 g/dL (Using max of 3.5 g/dL) at 07/09/2023 12:19 PM INR(ratio): 1.3 at 07/09/2023 12:19 PM Age at listing (hypothetical): 73 years Sex: Male at 07/09/2023 12:19 PM CHILD-MOSQUERA SCORE: 1 point 2 points 3 points Points Bilirubin (mg/dl) <2.0 2.0 - 3.0 > 3.0 1 Albumin (g/dl) >/= 3.5 2.8 - 3.4 < 2.7 1 Protime (INR) </= 1.5 1.6 - 2.4 >/= 2.5 1 Ascites None Mild Moderate/Large 1 Encephalopathy None 1 - 2 3 - 4 1 Total: 5/A Ascites- none Hepatic encephalopathy - none Varices - esophageal - history of bleeding - yes, 03/2023 - date of last EGD - 06/2023, G1EV, no banding - next EGD due - 06/2024 - on non-selective beta david for now secondary prophylaxis with coreg 12.5 mg PO BID; titrate toHR 55-60; did not tolerate addition of simvastatin due to myalgias HCC screening - requires imaging every 6 months if evidence of advanced fibrosis/cirrhosis + AFP - last imaging -09/2023 - next imaging due - 03/2024, will obtain CT liver given area of heterogeneity that has been noted on many previous procedures Health Maintenance: - Screening Colonoscopy: UTD from 03/2020 - Hepatitis Vaccination status: immune to HAV by serologies, s/p HBV vaccination - though he has not been on steroids recently, should check vitamin D (per routine care) and bone density scan with next visit I spent a total of 40 minutes on the date of the service which included preparing to see the patient, [id number] patient care, completing clinical documentation, obtaining and/or reviewing separately obtained history, performing a medically appropriate examination, counseling and educating the pat ient/family/caregiver, ordering medications, tests, or procedures, communicating with other HCPs (not separately reported), independently interpreting results (not separately reported), communicatingresults to the patient/family/caregiver, and care coordination (not separately reported). Derrek Bear MD Staff, Gastroenterology/Hepatology [facility] [place] documented in this encounterMercy [facility]07-09-2024 History of Present illness Narrative* Shima Pfeiffer APRN.ZORAIDA - 09/28/2023 11:10 AM EDT Patient fasting for 3 hours:Yes Fibroscan was performed on September 28, 2023, by Carmela Meehan RN and results are interpreted by Shima Pfeiffer APRN, ZORAIDA Indication: Autoimmune hepatitis Technical difficulties: None Please refer to get images report for individual readings Number of readings: 10 IQR %: 15% E (kpa): 18.0 CAP: 230 Impression The reading was adequate. FS =18.0 kPA. The CAP score is 230 and corresponds to steatosis grade of S0. The fibrosis interpretation threshold for autoimmune hepatitis diagnosis in Fibroscan is not well-established or validated and the reading may serve as a reference point for follow up. This reading corresponds: A 17% chance of stage 0-2 fibrosis A 83% chance of stage 3-4 fibrosis (advanced fibrosis) A 61% chance of stage 4 fibrosis (cirrhosis). A kPa >20 indicates a high likelihood of stage 4 fibrosis/cirrhosis, consider further testing to confirm. Shima Pfeiffer APRN.ZORAIDA Others/All Fibroscan Fibrosis Risk <7 kPA = F0-F2 94%, F3+F4 6%, F4 <1% <10 kPA = F0-F2 88%, F3+F4 12%, F4 1.8% 10-15 kPA = F0-F2 47%, F3+F4 53%, F4 19% >15 kPA = F0-F2 17%, F3+F4 83%, F4 61% Grade CAP value up to 237 dB/M corresponds to S0 (< 10 % Fat) CAP value between (238 - 258 dB/M) corresponds to S1 (>/= 11 % Fat) CAP value between (259 - 289 dB/M) corresponds to S2 (>/= 33 % Fat) CAP value > 290dB/M corresponds to S3 (>/= 67 % Fat) stage 0 ( S0:< 10 % steatosis) stage 1 (>/= S1: 11%-33% steatosis) stage 2 (>/= S2: 34%-66% steatosis) stage 3 (>/= S3: > 66% steatosis) Reference Pedrito Y, Yimi Q, Pedrito T, Sola J, Pedrito H, Wilber T. Controlled attenuation parameter for assessment of hepatic steatosis grades: a diagnostic meta-analysis. Int J Clin Exp Med. 2015 Jan 03;8(10):41170-84.PMID: [id number]; PMCID: [id number]. Jair Still, Rex RONDON, Catherine M, Natalie F, Alirio J, Aisha O, Daysi F, Harvey M, Jennifer G, Brooklyn A, Shelton E, Catracho L, Emi G, Manan A, Lynette U, Lala S, CalTrevor, Latrell V, de Lc V, Morena M, Danna BRUNO. Refining the Baveno elastography criteria for the definition of compensated advanced chronic liver disease. J Hepatol. 2020;74(5):7717-9410. doi: 10.1016/j.jhep.2020.11.050. Epub 2019Feb 27. PMID: [id number]. Pam M, Debby B, Veronika Still, Tapan M, Ashley S, Romi Iniguez, Enedina D, Shantell Pruitt.AASLD practice guidance on the clinical assessment and management of nonalcoholic fatty liver disease. Hepatology. 2022;77(5):1797- 1835. doi:10.1097/HEP.[id number] documented in this encounterMer[facility]06-13-[facility] History of Present illness Narrative* Darron Ellis - 09/02/2023 6:51 AM EDT IRB# [id number] Liver Cirrhosis Network Cohort Study (Protocol version 1 September 03, 2021) PI: Dr. Larkin Research Nurse/Coordinator: Samy Duffy Visit #: 2 Subject ID [id number] All Vital Signs will be found in Additional Documentation below Progress Notes in the Encounter CRU to pull tubes for clinical labs Time Point Procedures Comments/Signature Nursing Responsibilities Subject continues to consent Height: 182.4 cm Weight: 82.0 kg Vital Signs collected Time: 1031 Blood Draw Time: 1036 Butterfly used in right antecubital area. Blood drawn with vacutainer and syringe as needed and labs drawn per protocol. Butterfly removed after blood draw and site secured withsterile gauze. Patient tolerated procedure well. Clin [facility] Check EPIC for lab orders and print labels Pull tubes from [employer] based on what is listed on Schedule Request Signature: Darron Ellis Study Team Responsibilities Questionnaires, Head Of Store Operations Strength, Chair Stands, Balance Discharge D/C patient home Signature: Darron Ellis documented in this encounterMercy Health [facility]06-12-2024 History of Present illness Narrative* Jason Quiroz MD - 09/01/2023 10:39 AM EDT HISTORY OF PRESENT ILLNESS: Mateus Yi is a 73 year old male see previously by ENAMEL DRIER Lashonda Aleman for iron deficiency anemia. Discussed with patient he had bleeding esophageal varices at the time. Responded well to iron therapy. Reviewed labs today. 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 Back in 3 months with cbc and iron studies Written and verbal health teaching given to patient, patient verbalizes understanding and agrees with treatment plan. PAST MEDICAL HISTORY Diagnosis Date Arthritis of [...] at age 40's, 2 other uncles suddenly Social History Tobacco Use Smoking status: Former Types: Cigars Smokeless tobacco: Never Vaping Use Vaping Use: Some days Substances: THC, CBD Devices: Disposable Substance Use Topics Alcohol use: Not Currently Drug use: Yes Types: Marijuana Comment: medical marijuana ALLERGIES: ALLERGIES Allergen Reactions Percocet [Oxycodone* Other: See Comments Pt states he doesn't have an allergy to percocet, but because of his reaction to Vicodin, he avoidsit. Vicodin [Hydrocodon* Anaphylaxis stopped breathing Hibiscus Hives, Shortness of Breath Valsartan Myalgia Cramps in legs, muscle pain CURRENT OUTPATIENT MEDICATIONS: glipiZIDE (GLUCOTROL XL) 5 mg 24 hr tablet^Take 1 tablet by mouth once daily^Disp: 30 tablet^Rfl: 0 mycophenolate Mofetil (CELLCEPT) 500 mg tablet^Take 1 tablet by mouth twice daily^Disp: 180 tablet^Rfl: 0 carvedilol (COREG) 12.5 mg tablet^Take 1 tablet by mouth two times a day with meals.^Disp: 60 tablet^Rfl: 1 cholecalciferol, vitamin D3, (VITAMIN D3 ORAL)^Take 1 tablet by mouth three times a week.^Disp: ^Rfl: Lactobacill 46-B.animal-inulin (PROBIOTIC-10, WITH INULIN,) 10 billion cell -100 mg cap^Take 1 tablet by mouth once daily.^Disp: ^Rfl: probenecid 500 mg tablet^Take 1 tablet by mouth two times a day.^Disp: 180 tablet^Rfl: 1 amLODIPine (NORVASC) 5 mg tablet^Take 1 tablet by mouth once daily.^Disp: 90 tablet^Rfl: 1 triamcinolone (KENALOG) 0.025 % ointment^Apply to affected area 2 times daily for 1-2 weeks after PDT^Disp: 30 g^Rfl: 0 (Patient taking differently: Apply 1 g to affected area as needed. Apply to affected area 2 times daily for 1-2 weeks after PDT) pantoprazole DR (PROTONIX) 40 mg tablet^Take 1 tablet by mouth two times a day.^Disp: 60 tablet^Rfl: 11 cloNIDine HCl (CATAPRES) 0.1 mg tablet^Take 1.5 tablets by mouth two times a day.^Disp: 270 tablet^Rfl: 1 Blood-Glucose Sensor (DEXCOM G7 SENSOR) wilmer^CHANGE SENSOR EVERY 10 days. USE FOR CONTINOUS GLUCOSEMONITORING. INSULIN USE. E11.9^Disp: 9 Each^Rfl: 3 tacrolimus IR (PROGRAF) 1 mg capsule^Take 1 capsule by mouth two times a day.^Disp: 180 capsule^Rfl: 3 Amoxicillin 500 mg tablet^2000 mg by mouth 1-2 hours prior to dental procedures^Disp: 16 tablet^Rfl: 0 OTC NUTRITIONAL SUPPLEMENT^Take by mouth as directed.^Disp: 60 capsule^Rfl: 3 (Patient not taking: Reported on 09/01/2023) OTC NUTRITIONAL SUPPLEMENT^Take 1 tablet by mouth once daily. Take by mouth as directed.^Disp: 90 tablet^Rfl: 3 (Patient not taking: Reported on 09/01/2023) insulin degludec (TRESIBA FLEXTOUCH U-100) 100 unit/mL (3 mL) injection pen^Inject 5 units once daily^Disp: 3 mL^Rfl: 5 (Patient not taking: Reported on 06/18/2023) Insulin [place], Disposable, (BD ULTRAFINE III MINI PEN) 31 gauge x /16^USE WITH INSULIN PENS 1 TIME(S) DAILY^Disp: 100 Each^Rfl: 3 (Patient not taking: Reported on 09/01/2023) REVIEW OF SYSTEMS: GENERAL: No fever, night sweats, weight loss or malaise. All other reviewed and negative other than HPI. PHYSICAL EXAMINATION: VITAL SIGNS: BP 154/86 Pulse 65 Temp (Src) 98.7 (Tympanic) Resp 18 Ht 6' .5 (1.84m) Wt 182 lb (82.6kg) SpO2 97% BMI 24.33 kg/(m^2). GENERAL APPEARANCE: Well appearing, in no acute distress, alert and oriented x3, well-hydrated, well nourished. I spent a total of 30 minutes on the date of the service which included preparing to see the patient, [id number] patient care, completing clinical documentation, obtaining and/or reviewing separately obtained history, counseling and educating the patient/family/caregiver, ordering medications, paulino ts, or procedures, independently interpreting results (not separately reported), and communicating results to the patient/family/caregiver. Electronically Signed: Jason Quiroz MD September 01, 2023 10:40 AM documented in this encounterMercy [facility]05-20-2024 Instructions* Patient Instructions* Myra Gallardo APRN.CNP - 08/09/2023 10:50 AM EDT Have a fun trip!!! Blood work in 6 months Keep appointment for imaging in September Keep follow up appointment with Dr. Bear documented in this encounterMercy [facility]05-20-2024 History of Present illness Narrative* Myra Gallardo APRN.CNP - 08/09/2023 10:00 AM EDT NAME: Mateus Yi CLINIC NO: [id number] REFERRING PHYSICIAN: Self PRESENTING COMPLAINT: follow up HPI: Mateus Yi is a 73 year old male is here on follow up for AIH related advanced fibrosis/cirrhosis c/b portal htn (bleeding EV, PHG). PMHX includes T2Dm, HTN, HCM with syncope s/p ICD in [address] Bear 06/15/23. 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 MELD-Na: {MELD 3.0: 12 at 01/29/2023 7:48 AM MELD-Na: [...] years Sex: Male at 01/29/2023 7:48 AM - will obtain updated MELD labs in August 2023 at time of repeat liver imaging - continue MMF 500 mg PO BID and tacrolimus 1 mg Q12H Ascites - none Hepatic encephalopathy - none Varices - esophageal - history of bleeding - yes in 03/2023 - date of last EGD - 03/2023 - next EGD due now, will need aggressive banding as he is on max dose coreg for portal HTN and cannot tolerate statins due to myalgias - on non-selective beta david for primary prophylaxis with coreg 12.5 mg PO BID; titrate to HR 55-60 - has significant iron deficiency anemia that is symptomatic - will refer to hematology for IV ironinfusions HCC screening - requires imaging every 6 months if evidence of advanced fibrosis/cirrhosis + AFP - last imaging 02/2023 - next imaging due 08/2023 Health Maintenance: - Screening Colonoscopy: due in 2030 (last in 03/2020) - Hepatitis Vaccination status: immune to HAV by serologies, s/p HBV vaccination Interval hx: He is doing well overall Here today with his Going to [place] today C/o exhaustion, fatigue Underwent repeat scope with grade I varices, no banding noted Nausea comes and comes No abdominal distention Has been working out more Continues to use marijuana Him and will be flying to [place] later today Immunosuppression: Tacrolimus 1 mg BID, Cellcept 500 mg BID Pt currently denies jaundice, confusion/disorientation, ascites, hematemesis, [...] Current Outpatient Medications Medication Sig Dispense Refill glipiZIDE (GLUCOTROL XL) 5 mg 24 hr tablet Take 1 tablet by mouth once daily 30 tablet 0 OTC NUTRITIONAL SUPPLEMENT Take by mouth as directed. 60 capsule 3 OTC NUTRITIONAL SUPPLEMENT Take 1 tablet by mouth once daily. Take by mouth as directed. 90 tablet 3 carvedilol (COREG) 12.5 mg tablet Take 1 tablet by mouth two times a day with meals. 60 tablet 1 cholecalciferol, vitamin D3, (VITAMIN D3 ORAL) Take 1 tablet by mouth three times a week. Lactobacill 46-B.animal-inulin (PROBIOTIC-10, WITH INULIN,) 10 billion cell -100 mg cap Take 1 tablet by mouth once daily. probenecid 500 mg tablet Take 1 tablet by mouth two times a day. 180 tablet 1 amLODIPine (NORVASC) 5 mg tablet Take 1 tablet by mouth once daily. 90 tablet 1 mycophenolate Mofetil (CELLCEPT) 500 mg tablet Take 1 tablet by mouth twice daily 180 tablet 0 triamcinolone (KENALOG) 0.025 % ointment Apply to affected area 2 times daily for 1-2 weeks after PDT [address] (PROTONIX) 40 mg tablet Take 1 tablet by mouth two times a day. 60 tablet 11 cloNIDine HCl (CATAPRES) 0.1 mg tablet Take 1.5 tablets by mouth two times a day. 270 tablet 1 Insulin [place], Disposable, (BD ULTRAFINE III MINI PEN) 31 gauge x 3/16 USE WITH INSULIN PENS 1 TIME(S) DAILY 100 Each 3 Blood-Glucose Sensor ([employer] G7 SENSOR) wilmer CHANGE SENSOR EVERY 10 days. USE FOR CONTINOUS GLUCOSEMONITORING. INSULIN USE. E11.9 9 Each 3 tacrolimus IR (PROGRAF) 1 mg capsule Take 1 capsule by mouth two times a day. 180 capsule 3 Amoxicillin 500 mg tablet 2000 mg by mouth 1-2 hours prior to dental procedures 16 tablet 0 insulin degludec (TRESIBA FLEXTOUCH U-100) 100 unit/mL (3 mL) injection pen Inject 5 units once daily (Patient not taking: Reported on 06/18/2023) 3 mL 5 Current Facility-Administered Medications Medication Dose Route Frequency Provider Last Rate Last Admin sodium chloride 0.9 % (flush) 10 mL (BD POSIFLUSH) 10 mL INTRAVENOUS DIRECTED PRN John Munguia MD ALLERGIES Allergen Reactions Vicodin [Hydrocodon* Anaphylaxis stopped breathing Hibiscus Hives, Shortness of Breath Percocet [Oxycodone* Shortness of Breath Pt states he dosent have a allergy to percocet Valsartan Intolerance Cramps in legs, muscle pain Social History Tobacco Use Smoking status: Former Types: Cigars Smokeless tobacco: Never Vaping Use Vaping Use: Some days Substances: THC, CBD Devices: Disposable Substance Use Topics Alcohol use: Not Currently Drug use: Yes Types: Marijuana Comment: medical [...] 2 other uncles suddenly PHYSICAL EXAM BP 111/62[Patient states headache patient is drinking water[ Pulse 55 Temp (Src) 97.9 (Temporal) Ht 6' 0 (1.83m) Wt 176 lb 12.9 oz (80.2kg) SpO2 97% BMI 23.97 kg/(m^2). General Appearance: Well appearing, alert, in no acute distress, well-hydrated, well nourished. Eyes: PERRLA, conjunctiva and sclera normal Oropharynx: Lips, tongue, and oral mucosa normal. There is no thrush or oral ulcers. Lungs:breathing comfortably Heart: regular rate Abdomen: not distended Extremities: no cyanosis or edema Skin: no jaundice, no spider angiomas, no palmar erythema Neuro:alert, oriented x 3, pleasant and in no acute distress Recent Labs: Hemoglobin (g/dL) Date Value 08/04/2023 12.5 12/25/2020 13.8 Hematocrit (%) Date Value 08/04/2023 37.5 12/25/2020 39.6 WBC (k/uL) Date Value 08/04/2023 3.00 12/25/2020 4.92 Glucose (mg/dL) Date Value 07/09/2023 124 12/25/2020 123 Potassium (mmol/L) Date Value 07/09/2023 4.3 12/25/2020 4.1 Sodium (mmol/L) Date Value 07/09/2023 139 12/25/2020 136 Chloride (mmol/L) Date Value 07/09/2023 105 12/25/2020 103 CO2 (mmol/L) Date Value 07/09/2023 23 12/25/2020 25 Creatinine (mg/dL) Date Value 07/09/2023 1.35 12/25/2020 1.13 Creatinine (POCT) (mg/dL) Date Value 03/11/2023 1.20 BUN (mg/dL) Date Value 07/09/2023 25 12/25/2020 22 Anion Gap (mmol/L) Date Value 07/09/2023 11 12/25/2020 8 Calcium (mg/dL) Date Value 12/25/2020 9.0 Calcium, Total (mg/dL) Date Value 07/09/2023 8.9 Albumin (g/dL) Date Value 07/09/2023 4.1 Bilirubin, Total (mg/dL) Date Value 07/09/2023 0.6 Bilirubin, Conjugated (mg/dL) Date Value 05/21/2023 0.2 (H) Alkaline Phosphatase (U/L) Date Value 07/09/2023 164 (H) AST (U/L) Date Value 07/09/2023 35 ALT (U/L) Date Value 07/09/2023 24 Protein, Total (g/dL) Date Value 07/09/2023 7.8 07/09/2023 7.4 MELD 3.0: 12 at 07/09/2023 12:19 PM MELD-Na: 13 at 07/09/2023 12:19 PM Calculated from: Serum Creatinine: 1.35 mg/dL at 07/09/2023 12:19 PM Serum Sodium: 139 mmol/L (Using max of 137 mmol/L) at 07/09/2023 12:19 PM Total Bilirubin: 0.6 mg/dL (Using min of 1 mg/dL) at 07/09/2023 12:19 PM Serum Albumin: 4.1 g/dL (Using max of 3.5 g/dL) at 07/09/2023 12:19 PM INR(ratio): 1.3 at 07/09/2023 12:19 PM Age at listing (hypothetical): 73 years Sex: Male at 07/09/2023 12:19 PM Imaging/Procedure EGD 07/06/23 Impression: - Z-line irregular, 40 cm from the incisors. - Grade I esophageal varices with no bleeding and no stigmata of recent bleeding. - Portal hypertensive gastropathy. - Normal examined duodenum. - No specimens collected. CT Liver 03/11/23 IMPRESSION: Cirrhosis with portal hypertension. No OPTN class 5/LI-RADS 5 liver lesion. RUQ US 02/16/23 IMPRESSION: PATENT HEPATIC VASCULATURE WITH APPROPRIATELY DIRECTED FLOW. CIRRHOTIC LIVER MORPHOLOGY WITH STIGMATA OF PORTAL HYPERTENSION. SLIGHT INTERVAL INCREASE IN SIZE OF PREVIOUSLY DESCRIBED HYPOECHOIC LESION IN THE RIGHT HEPATIC LOBE. CONSIDER EVALUATION WITH CONTRAST ENHANCED LIVER MRI. STABLE SPLENOMEGALY. Assessment IMPRESSION Mateus Yi is a 73 year old male is here on follow up for AIH related advanced fibrosis/cirrhosisc/b portal htn (bleeding EV, PHG). PMHX includes T2Dm, HTN, HCM with syncope s/p ICD in 2012 -Discussed liver disease and it's progression -Discussed personal risk factors for the development of liver disease/cirrhosis -Discussed sx of worsening liver disease -Discussed need to avoid alcohol intake -Discussed maintaining a healthy, Mediterranean diet PLAN AIH related advanced fibrosis/ Cirrhosis: Last Meld 12 in June 2023. Discussed pathology of cirrhosis and compensated vs decompensated disease. Continues to take MMF 500 mg PO BID and Tacrolimus 1 mg BID for management. Continue as prescribed EV: history of bleed in March 2023. Last EGD in June 2023, grade 1 varices. On carvedilol 12.5 as NSBB for primary prophylaxis. Repeat next year HE: None Ascites: None HCC Screening: Last Imaging in January 2023 with, showed no liver lesions. Due now, scheduled for September Keep follow up appointment with Dr. Bear in September Myra Gallardo APRN.UTILIZATION REVIEWER Myra Gallardo APRN.UTILIZATION REVIEWER August 09, 2023 8:03 AM documented in this encounterMer[facility]05-10-2024 Telephone encounter Note * Telephone Encounter - Sally Rodriguez MA - 07/30/2023 12:58 PM EDT Requester: Pharmacy Patients last Endocrinology visit occurred 03/24/2023. Follow-up evaluation has been established Upcoming Endocrinology Appointments - Next 365 Days No appointments to display . Requested Prescriptions Pending Prescriptions Disp Refills glipiZIDE XL (GLUCOTROL XL) 5 mg 24 hr tablet [Pharmacy Med Name: glipiZIDE ER 5 MG Oral Tablet Extended Release 24 Hour] 30 tablet 0 Sig: Take 1 tablet by mouth once daily Patient needs scheduled appointment No Sally Rodriguez MA [facility]-10-[facility] Miscellaneous Notes* Telephone Encounter - Sally Rodriguez MA - 07/30/2023 12:58 PM EDT Requester: Pharmacy Patients last Endocrinology visit occurred 03/24/2023. Follow-up evaluation has been established Upcoming Endocrinology Appointments - Next 365 Days No appointments to display . Requested Prescriptions Pending Prescriptions Disp Refills glipiZIDE XL (GLUCOTROL XL) 5 mg 24 hr tablet [Pharmacy Med Name: glipiZIDE ER 5 MG Oral Tablet Extended Release 24 Hour] 30 tablet 0 Sig: Take 1 tablet by mouth once daily Patient needs scheduled appointment No Sally Rodriguez MA documented in this encounterMercy [facility]04-26-2024 History of Present illness Narrative* Davis May MD - 07/16/2023 9:13 AM EDT Patient presents with: Follow Up HPI: Patient presents today for office visit for follow up. Feels really well today. DM: Follows with Noemi Lebron currently on hold. Continues on Glipizide Checking sugars multiple times a day No vision changes No unexpected weight loss No hypoglycemic spells HTN: Monitors BP Stable Avg 120's/70's Mentions episode a couple weeks ago where BP dropped to 93/56 and he felt very weak. Didn't last long. And checked BP again and it came back up. Not sure if this correlates with his iron infusions he was getting at the time. No new or worsening chest pain or shortness of breath. Chronic. Follows with Cardiology. Notes since switching from Metoprolol to Carvedilol he's noticed he's more lightheaded. Has had some lightheaded for years. He is not sure if it is significant because it may be just a little worse. Just had labs. He feels much better today. No black or bloody stools. Offered to check cbc. He feels he is ok. Denies headaches Some dizziness. Mentions episode yesterday where he was dizzy for a better part of the morning. Denies palpitations Denies syncope Denies edema GERD: Continues on Pantoprazole BID Refers to really working Symptoms controlled No further gi bleeding. See previous ov. MEDICATIONS: Current Outpatient Medications Medication Sig OTC NUTRITIONAL SUPPLEMENT Take by mouth as directed. OTC NUTRITIONAL SUPPLEMENT Take 1 tablet by mouth once daily. Take by mouth as directed. glipiZIDE (GLUCOTROL XL) 5 mg 24 hr tablet Take 1 tablet by mouth once daily carvedilol (COREG) 12.5 mg tablet Take 1 tablet by mouth two times a day with meals. cholecalciferol, vitamin D3, (VITAMIN D3 ORAL) Take 1 tablet by mouth three times a week. Lactobacill 46-B.animal-inulin (PROBIOTIC-10, WITH INULIN,) 10 billion cell -100 mg cap Take 1 tablet by mouth once daily. probenecid 500 mg tablet Take 1 tablet by mouth two times a day. amLODIPine (NORVASC) 5 mg tablet Take 1 tablet by mouth once daily. mycophenolate Mofetil (CELLCEPT) 500 mg tablet Take 1 tablet by mouth twice daily triamcinolone (KENALOG) 0.025 % ointment Apply to affected area 2 times daily for 1-2 weeks after PDT pantoprazole DR (PROTONIX) 40 mg tablet Take 1 tablet by mouth two times a day. cloNIDine HCl (CATAPRES) 0.1 mg tablet Take 1.5 tablets by mouth two times a day. Insulin [place], Disposable, (BD ULTRAFINE III MINI PEN) 31 gauge x 3/16 USE WITH INSULIN PENS 1 TIME(S) DAILY Blood-Glucose Sensor ([employer] G7 SENSOR) wilmer CHANGE SENSOR EVERY 10 days. USE FOR CONTINOUS GLUCOSEMONITORING. INSULIN USE. E11.9 tacrolimus IR (PROGRAF) 1 mg capsule Take 1 capsule by mouth two times a day. Amoxicillin 500 mg tablet 2000 mg by mouth 1-2 hours prior to dental procedures insulin degludec (TRESIBA FLEXTOUCH U-100) 100 unit/mL (3 mL) injection pen Inject 5 units once daily (Patient not taking: Reported on 06/18/2023) Current Facility-Administered Medications Medication Dose Route Frequency [...] at age 40's, 2 other uncles suddenly Social History Tobacco Use Smoking status: Former Types: Cigars Smokeless tobacco: Never Vaping Use Vaping Use: Some days Substances: THC, CBD Devices: Disposable Substance Use Topics Alcohol use: Not Currently Drug use: Yes Types: Marijuana Comment: medical marijuana Reviewed current medications, allergies, past medical history, surgical history, family history andsocial history today. REVIEW OF SYSTEMS All other reviewed and negative other than HPI. HEALTH MAINTENANCE: Reviewed health maintenance issues today and recommended the following in detail. Behavioral Health Screening Never done Covid-19 Vaccine() due on 05/21/2023 HbA1C due on 06/18/2023 VITALS: BP 116/64 Pulse (!) 55 Ht 182.9 cm (6') Wt 81.2 kg (179 lb) SpO2 98% BMI 24.28 kg/m Last 4 Encounter Wt Readings: Date: Wt: 07/09/2023 79.8 kg (175 lb 14.8 oz) 07/06/2023 79.4 kg (175 lb) 06/18/2023 83.9 kg (185 lb) 06/15/2023 83.8 kg (184 lb 11.9 oz) PHYSICAL EXAMINATION: General appearance: Well appearing, alert, [...] or cyanosis. Good capillary refill. ASSESSMENT/PLAN: 1. S/P ICD (internal cardiac defibrillator) procedure - ICD9: V45.02, ICD10: Z95.810 (primary diagnosis) - no issues. 2. Hypertrophic obstructive cardiomyopathy (HOCM) (HCC) - ICD9: 425.11, ICD10: I42.1 - has been stable. Per cardiology 3. Hyperlipidemia LDL goal <100 - ICD9: 272.4, ICD10: E78.5 - Controlled - Continue current medications 4. Primary hypertension - ICD9: 401.9, ICD10: I10 - Controlled - Continue current medications 5. Hepatic cirrhosis, unspecified hepatic cirrhosis type, unspecified whether ascites present (HCC)- ICD9: 571.5, ICD10: K74.60 - stable 6. Portal vein thrombosis - ICD9: 452, ICD10: I81 - stable 7. Controlled type 2 diabetes mellitus without complication, unspecified whether oysterman insulin use (HCC) - ICD9: 250.00, ICD10: E11.9 - per emdp/ 8. Thrombocytopenia (HCC) - ICD9: 287.5, ICD10: D69.6 - stab;e/ . Iron deficiency anemia due to chronic blood loss - ICD9: 280.0, ICD10: D50.0 - stable. Davis May MD documented in this encounterMer[facility]04-22-2024 Telephone encounter Note * Telephone Encounter - Derrek Bear MD - 07/12/2023 3:35 PM EDT Would someone call the pharmacy and let them know it's [facility]. Thanks. [facility] Miscellaneous Notes* Telephone Encounter - Derrek Bear MD - 07/12/2023 3:35 PM EDT Would someone call the pharmacy and let them know it's [facility]. Thanks. * Telephone Encounter - Jessi Harrison - 07/12/2023 3:28 PM EDT [phone] Patient's pharmacy called to clarify/ ask what medication the OTC nutritionalsupplement is? documented in this encounterMercy [facility]04-22-2024 Telephone encounter Note * Telephone Encounter - Jessi Harrison - 07/12/2023 3:28 PM EDT [phone] Patient's pharmacy called to clarify/ ask what medication the OTC nutritionalsupplement is? [facility] Nurse Note* Carmita Nazario LPN - 07/09/2023 11:05 AM EDT Additional intake questions: Has the patient had fever, nausea, vomiting, diarrhea, constipation, fatigue for > 1 week? Yes, fatigue Does the patient have a decreased appetite? Yes Does patient want to see a Shake Feeder? No (yes to any of above refer patient to schedulers for dietitian appointment) ) Does patient have any new or increased numbness or tingling of extremities? No Is patient interested in fertility information? No Does patient need any prescription refills? No Does patient have an advanced directive in place? Yes Electronically Signed By: Carmita Nazario LPN [facility]04-19-2024 Nurse Note* Carmita Nazario LPN - 07/09/2023 11:05 AM EDT Additional intake questions: Has the patient had fever, nausea, vomiting, diarrhea, constipation, fatigue for > 1 week? Yes, fatigue Does the patient have a decreased appetite? Yes Does patient want to see a Shake Feeder? No (yes to any of above refer patient to schedulers for dietitian appointment) ) Does patient have any new or increased numbness or tingling of extremities? No Is patient interested in fertility information? No Does patient need any prescription refills? No Does patient have an advanced directive in place? Yes Electronically Signed By: Carmita Nazario LPN documented in this encounterMer[facility]04-[facility] History of Present illness Narrative* Liseth Ortiz DO - 07/09/2023 11:00 AM EDT Images from the original note were not included. Hematologic Oncology and Blood Disorders PATIENT NAME: Mateus Yi DATE OF : 1950 ATTENDING STAFF: Fransisca Ortiz DO DATE OF SERVICE: July 09, 2023 REASON FOR CONSULT: Iron Deficiency REQUESTING PHYSICIAN: SELF HISTORY OF PRESENT ILLNESS: This patient was seen as a self referral to hematology for consultationregarding iron deficiency anemia and thrombocytopenia. History was obtained from the patient and from review of the patient s old medical records. Mateus Yi is a 73 year old male with past medical history pertinent for cervical radiculopathy, catherine mountain spotted fever in 2012, lyme disease in 2012, HTN, hypertrophic obstructive cardiomyopathy with ICD placement, osteoarthritis and trochanteric bursitis of the right hip, liver cirrhosis s econdary to autoimmune hepatitis that was confirmed with liver biopsy and +anti- SMA, complicated bysplenomegaly of 15 cm, portal gastropathy and esophageal varices. He is currently treated with tacrolimus and cellcept for the autoimmune hepatitis. He was diagnosed with autoimmune hepatitis in 2018and treated with high dose steroids at that time. He was admitted at [facility] 03/27/23 with upper GI bleed and had an EGD with esophageal variceal bleeding that was banded. REVIEW OF SYSTEMS: Review of Systems Constitutional: Positive for chills and fatigue. HENT: Negative for trouble swallowing. Respiratory: Positive for shortness of breath (with exertion). Gastrointestinal: Negative for blood in stool. Musculoskeletal: Positive for arthralgias and back pain. Skin: Negative for rash. Neurological: Positive for numbness. Psychiatric/Behavioral: Negative for confusion and depression. The patient is not nervous/anxious. The remainder of the review of systems is negative. ALLERGIES: ALLERGIES Allergen Reactions Vicodin [Hydrocodon* Anaphylaxis stopped breathing Hibiscus Hives, Shortness of Breath Percocet [Oxycodone* Shortness of Breath Pt states he dosent have a allergy to percocet Valsartan Intolerance Cramps in legs, muscle pain MEDICATIONS: Medications were reviewed and updated. Current Outpatient Medications on File Prior to Visit Medication Sig OTC NUTRITIONAL SUPPLEMENT Take by mouth as directed. OTC NUTRITIONAL SUPPLEMENT Take 1 tablet by mouth once daily. Take by mouth as directed. glipiZIDE (GLUCOTROL XL) 5 mg 24 hr tablet Take 1 tablet by mouth once daily carvedilol (COREG) 12.5 mg tablet Take 1 tablet by mouth two times a day with meals. cholecalciferol, vitamin D3, (VITAMIN D3 ORAL) Take 1 tablet by mouth three times a week. Lactobacill 46-B.animal-inulin (PROBIOTIC-10, WITH INULIN,) 10 billion cell -100 mg cap Take 1 tablet by mouth once daily. probenecid 500 mg tablet Take 1 tablet by mouth two times a day. amLODIPine (NORVASC) 5 mg tablet Take 1 tablet by mouth once daily. mycophenolate Mofetil (CELLCEPT) 500 mg tablet Take 1 tablet by mouth twice daily triamcinolone (KENALOG) 0.025 % ointment Apply to affected area 2 times daily for 1-2 weeks after PDT pantoprazole DR (PROTONIX) 40 mg tablet Take 1 tablet by mouth two times a day. cloNIDine HCl (CATAPRES) 0.1 mg tablet Take 1.5 tablets by mouth two times a day. insulin degludec (TRESIBA FLEXTOUCH U-100) 100 unit/mL (3 mL) injection pen Inject 5 units once daily (Patient not taking: Reported on 06/18/2023) Insulin [place], Disposable, (BD ULTRAFINE III MINI PEN) 31 gauge x 3/16 USE WITH INSULIN PENS 1 TIME(S) DAILY Blood-Glucose Sensor ([employer] G7 SENSOR) wilmer CHANGE SENSOR EVERY 10 days. USE FOR CONTINOUS GLUCOSEMONITORING. INSULIN USE. E11.9 tacrolimus IR (PROGRAF) 1 mg capsule Take 1 capsule by mouth two times a day. Amoxicillin 500 mg tablet 2000 mg by mouth 1-2 hours prior to dental procedures metroNIDAZOLE 1 % gel Apply 1 application to affected area once daily. Location: face (Patient not taking: Reported on 06/22/2023) Current Facility-Administered Medications on File Prior to Visit Medication sodium chloride 0.9 % (flush) 10 mL (BD POSIFLUSH) PREFERRED PHARMACY: [facility] [address] [place] [id number] [phone] [facility] - [phone] [facility] [id number] e- [id number] [place] [address] - [address] - [phone] [address] [facility] [id number] [facility] [address] e- [facility] [id number] [place] [address] - [address] - [phone] [address] [facility] [id number] [facility] [id number] [place] [id number] PAST MEDICAL HISTORY Diagnosis Date Arthritis of [...] at age 40's, 2 other uncles suddenly Social History Tobacco Use Smoking status: Former Types: Cigars Smokeless tobacco: Never Vaping Use Vaping Use: Some days Substances: THC, CBD Devices: Disposable Substance Use Topics Alcohol use: Not Currently Drug use: Yes Types: Marijuana Comment: medical marijuana PHYSICAL EXAM: There were no vitals filed for this visit. Physical Exam Constitutional: Appearance: Normal appearance. He is normal weight. HENT: Head: Normocephalic and atraumatic. Eyes: Extraocular Movements: Extraocular movements intact. Conjunctiva/sclera: Conjunctivae normal. Cardiovascular: Pulses: Normal pulses. Pulmonary: Effort: Pulmonary effort is normal. Breath sounds: Normal breath sounds. Musculoskeletal: Cervical back: Normal range of motion. Right lower leg: Edema present. Left lower leg: Edema present. Skin: General: Skin is warm and dry. Coloration: Skin is not jaundiced or pale. Findings: No bruising, erythema or rash. Neurological: General: No focal deficit present. Mental Status: He is alert and oriented to person, place, and time. Mental status is at baseline. Motor: No weakness. Gait: Gait normal. Psychiatric: Mood and Affect: Mood normal. Behavior: Behavior normal. Thought Content: Thought content normal. Judgment: Judgment normal. DATA REVIEW: I personally reviewed the patient s labs and medical record from [facility]. LAB DATA: Basic Labs: Hemoglobin Date Value Ref Range Status 05/21/2023 11.0 (L) 13.0 - 17.0 g/dL Final 04/16/2023 9.9 (L) 13.0 - 17.0 g/dL Final 01/29/2023 15.2 13.0 - 17.0 g/dL Final 09/18/2022 14.8 13.0 - 17.0 g/dL Final 04/09/2022 15.5 13.0 - 17.0 g/dL Final Hematocrit Date Value Ref Range Status 05/21/2023 32.8 (L) 39.0 - 51.0 % Final 04/16/2023 27.9 (L) 39.0 - 51.0 % Final 01/29/2023 44.0 39.0 - 51.0 % Final 09/18/2022 42.5 39.0 - 51.0 % Final 04/09/2022 45.1 39.0 - 51.0 % Final MCV Date Value Ref Range Status 05/21/2023 86.3 80.0 - 100.0 fL Final 04/16/2023 99.6 80.0 - 100.0 fL Final 01/29/2023 90.7 80.0 - 100.0 fL Final 09/18/2022 89.9 80.0 - 100.0 fL Final 04/09/2022 91.3 80.0 - 100.0 fL Final Retic % Date Value Ref Range Status 11/05/2020 1.2 0.4 - 2.0 % Final WBC Date Value Ref Range Status 05/21/2023 4.06 3.70 - 11.00 k/uL Final 04/16/2023 2.76 (L) 3.70 - 11.00 k/uL Final 01/29/2023 4.40 3.70 - 11.00 k/uL Final 09/18/2022 4.75 3.70 - 11.00 k/uL Final 04/09/2022 5.38 3.70 - 11.00 k/uL Final Abs Neut (ANC) Date Value Ref Range Status 11/05/2020 3.02 1.45 - 7.50 k/uL Final 07/05/2020 2.81 1.45 - 7.50 k/uL Final 05/17/2020 2.68 1.45 - 7.50 k/uL Final Abs Neut Date Value Ref Range Status 05/21/2023 2.64 1.45 - 7.50 k/uL Final 04/16/2023 1.79 1.45 - 7.50 k/uL Final Platelet Count Date Value Ref Range Status 05/21/2023 91 (L) 150 - 400 k/uL Final Comment: No clot detected. 04/16/2023 65 (L) 150 - 400 k/uL Final Comment: Results checked and verified.No clot detected. 01/29/2023 67 (L) 150 - 400 k/uL Final Comment: No clot detected. 09/18/2022 57 (L) 150 - 400 k/uL Final Comment: No clot detected. 04/09/2022 80 (L) 150 - 400 k/uL Final Comment: No clot detected. Creatinine Date Value Ref Range Status 05/21/2023 1.29 (H) 0.73 - 1.22 mg/dL Final 04/16/2023 1.41 (H) 0.73 - 1.22 mg/dL Final 03/19/2023 1.37 (H) 0.73 - 1.22 mg/dL Final 01/29/2023 1.42 (H) 0.73 - 1.22 mg/dL Final Creatinine (POCT) Date Value Ref Range Status 03/11/2023 1.20 0.7 - 1.4 mg/dL Final BUN Date Value Ref Range Status 05/21/2023 30 (H) 9 - 24 mg/dL Final 04/16/2023 26 (H) 9 - 24 mg/dL Final 03/19/2023 28 (H) 9 - 24 mg/dL Final 01/29/2023 27 (H) 9 - 24 mg/dL Final 09/18/2022 29 (H) 9 - 24 mg/dL Final AST Date Value Ref Range Status 05/21/2023 36 14 - 40 U/L Final 04/16/2023 46 (H) 14 - 40 U/L Final 03/19/2023 47 (H) 14 - 40 U/L Final 01/29/2023 43 (H) 14 - 40 U/L Final 09/18/2022 51 (H) 14 - 40 U/L Final ALT Date Value Ref Range Status 05/21/2023 24 10 - 54 U/L Final 04/16/2023 30 10 - 54 U/L Final 03/19/2023 39 10 - 54 U/L Final 01/29/2023 30 10 - 54 U/L Final 09/18/2022 43 10 - 54 U/L Final Hemostasis Labs: INR Date Value Ref Range Status 01/29/2023 1.2 0.9 - 1.3 Final Comment: Vitamin K Antagonist (VKA) Therapeutic Range: INR 2 to 3 (Target INR of 2.5) Note: For patients treated with VKA drugs, such as warfarin, the [employer] 2012 Guideline recommends a therapeutic INR range of 2 to 3 (target INR of 2.5). This recommendation includes high-risk patients with antiphospholipid syndrome with previous arterial or venous thromboembolism, current-generation mechanical or bioprosthetic aortic heart valve replacement. Note: Patients with mechanical aortic valve replacement and additional risk factors for thromboembolic events (atrial fibrillation, previous thromboembolism, LV dysfunction, hypercoagulable conditions) or an older generation mechanical AVR (i.e., ball in-Cage) or any mechanical MVR should have a INR therapeutic range of 2.5 to 3.5 (target INR of 3). Freida GH, et al. Chest 2012, 141:7S-47S Bobbi RA, et al. [facility] 2017, 70: 252-289 09/18/2022 1.2 0.9 - 1.3 Final Comment: Vitamin K Antagonist (VKA) Therapeutic Range: INR 2 to 3 (Target INR of 2.5) Note: For patients treated with VKA drugs, such as warfarin, the [employer] 2012 Guideline recommends a therapeutic INR range of 2 to 3 (target INR of 2.5). This recommendation includes high-risk patients with antiphospholipid syndrome with previous arterial or venous thromboembolism, current-generation mechanical or bioprosthetic aortic heart valve replacement. Note: Patients with mechanical aortic valve replacement and additional risk factors for thromboembolic events (atrial fibrillation, previous thromboembolism, LV dysfunction, hypercoagulable conditions) or an older generation mechanical AVR (i.e., ball in-Cage) or any mechanical MVR should have a INR therapeutic range of 2.5 to 3.5 (target INR of 3). Freida MA et al. Chest 2012, 141:7S-47S Bobbi ARZATE et al. [facility] 2017, 70: 373-289 04/09/2022 1.2 0.9 - 1.3 Final Comment: Vitamin K Antagonist (VKA) Therapeutic Range: INR 2 to 3 (Target INR of 2.5) Note: For patients treated with VKA drugs, such as warfarin, the [employer] 2012 Guideline recommends a therapeutic INR range of 2 to 3 (target INR of 2.5). This recommendation includes high-risk patients with antiphospholipid syndrome with previous arterial or venous thromboembolism, current-generation mechanical or bioprosthetic aortic heart valve replacement. Note: Patients with mechanical aortic valve replacement and additional risk factors for thromboembolic events (atrial fibrillation, previous thromboembolism, LV dysfunction, hypercoagulable conditions) or an older generation mechanical AVR (i.e., ball in-Cage) or any mechanical MVR should have a INR therapeutic range of 2.5 to 3.5 (target INR of 3). Freida MA et al. Chest 2012, 141:7S-47S Bobbi ARZATE et al. [facility] 2017, 70: 252-289 APTT Date Value Ref Range Status 08/20/2019 26.2 23.0 - 32.4 sec Final Comment: Unfractionated Heparin Therapeutic Ranges: Standard Heparin Nomogram: 53 to 78 seconds (anti-Xa level of 0.3 to 0.7 U/ml) Low Dose/ACS Nomogram: 49 to 67 seconds (anti-Xa level of 0.2 to 0.5 U/ml) Stroke Treatment Nomogram: 49 to 67 seconds (anti-Xa level of 0.2 to 0.5 U/ml) Note: The APTT therapeutic range has been determined for the current lot of laboratory APTT reagent in use throughout the [facility]. Thrombosis Labs: No results found for: CRP, HSXTEI4ASO, FACTOR, HYPCQ, PT2Q, PROTSINTL, PROTCINTL, LUPUS, LACININTL, DRVVT, QLJC2QXJC, BSYA8FMDY, ACARDINTL, DDMER, PNHPI, PNHFL, JAK2SP, JAK2E Anemia Labs: Ferritin Date Value Ref Range Status 11/05/2020 117.0 30.3 - 565.7 ng/mL Final 08/22/2018 195.2 30.3 - 565.7 ng/mL Final Iron Date Value Ref Range Status 05/21/2023 33 (L) 41 - 186 ug/dL Final 11/05/2020 124 41 - 186 ug/dL Final 08/22/2018 110 41 - 186 ug/dL Final Vitamin B12 Date Value Ref Range Status 11/05/2020 750 232 - 1,245 pg/mL Final 07/05/2020 563 232 - 1,245 pg/mL Final Folate Date Value Ref Range Status 11/05/2020 15.3 >4.7 ng/mL Final 07/05/2020 8.7 >4.7 ng/mL Final TSH Date Value Ref Range Status 07/05/2020 1.540 0.270 - 4.200 uU/mL Final 06/06/2018 0.753 0.400 - 5.500 uU/mL Final Hemolysis/TMA Labs: Retic % Date Value Ref Range Status 11/05/2020 1.2 0.4 - 2.0 % Final Neutropenia Labs: Folate Date Value Ref Range Status 11/05/2020 15.3 >4.7 ng/mL Final Vitamin B12 Date Value Ref Range Status 11/05/2020 750 232 - 1,245 pg/mL Final Thrombocytopenia Labs: No results found for: PF4COM, SERHEP, PLTCO, PLTAS, PLA1AG, HIV, EBVDQ Monoclonal Gammopathy Labs: Hemoglobin Date Value Ref Range Status 05/21/2023 11.0 (L) 13.0 - 17.0 g/dL Final 04/16/2023 9.9 (L) 13.0 - 17.0 g/dL Final 01/29/2023 15.2 13.0 - 17.0 g/dL Final Creatinine Date Value Ref Range Status 05/21/2023 1.29 (H) 0.73 - 1.22 mg/dL Final 04/16/2023 1.41 (H) 0.73 - 1.22 mg/dL Final 03/19/2023 1.37 (H) 0.73 - 1.22 mg/dL Final Calcium, Total Date Value Ref Range Status 05/21/2023 9.1 8.5 - 10.2 mg/dL Final 04/16/2023 9.1 8.5 - 10.2 mg/dL Final 03/19/2023 9.4 8.5 - 10.2 mg/dL Final MPN Labs: No results found for: JAK2SP, JAK2E, JAK2I, CALRM, MPLMU, MPNFMR, MPNRES, MPNMRS BM BIOPSY: N/A IMAGING DATA: US Liver 02/16/23 PATENT HEPATIC VASCULATURE WITH APPROPRIATELY DIRECTED FLOW. CIRRHOTIC LIVER MORPHOLOGY WITH STIGMATA OF PORTAL HYPERTENSION. SLIGHT INTERVAL INCREASE IN SIZE OF PREVIOUSLY DESCRIBED HYPOECHOIC LESION IN THE RIGHT HEPATIC LOBE. CONSIDER EVALUATION WITH CONTRAST ENHANCED LIVER MRI. STABLE SPLENOMEGALY. 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 He is currently treated with tacrolimus and cellcept for the autoimmune hepatitis. He was diagnosed with autoimmune hepatitis in 2019 and treated with high dose steroids at that time. #Iron Deficiency Anemia Due to Chronic GI Bleeding: He was admitted at [facility] 03/27/23 with upper GIbleed and had an EGD with esophageal variceal bleeding that was banded. He remains on Protonix 40 mg bid, started 04/16/23. He has history of iron deficiency in 2018 and was briefly on oral iron. He has repeat labs from 05/21/23 consistent with iron deficiency anemia with a hemoglobin of 11.0 g/dL. He received 200 mg IV iron sucrose on 06/23/23, 06/25/23, 06/28/23, 06/30/23 and 07/02/23. Last EGD 07/06/23 with a non-bleeding grade I esophageal varices and portal hypertensive gastropathy. -Follow through with recommended annual EGD for surveillance -Continue with once a month CBC, iron studies #Thrombocytopenia: I discussed that with his known autoimmune hepatitis it is possible to have multiple autoimmune processes and that could include immune mediated thrombocytopenia (ITP). I discussedthat an elevated mean platelet volume and immature platelet fraction could be indicative of either ongoing bleeding or immune destruction of the platelets. He does have cirrhosis and splenomegaly that are known drivers of thrombocytopenia, but I want to also assess for additional etiologies that would be managed differently. -I am obtaining the following labs today: zinc, copper, SPEP, MPA, rheumatoid factor, CAMDEN panel, folate, Vitamin B12, immature platelet fraction, iron studies and CBC -The MPV has been elevated previously and he remains iron deficient--so I first want to replace hisiron and monitor the blood counts and immature platelet fraction. If these remain elevated without evidence of bleeding then we could discuss use of either a TPO-agonist like Nplate or Doptelet +/- changes to his current immunosuppressants to treat presumed ITP. I would not treat his thrombocytopenia unless his platelet count becomes <50K RTC in 6 months with labs one week prior The patient's questions were answered. Total time 60 minutes, this included time preparing for the visit by reviewing the patient's chart and the time spent during the visit counseling and coordinating care. A copy of this consultation was sent to SELF. Fransisca Ortiz DO Associate Staff Physician, [facility] Hematologic Oncology and Blood Disorders Program [facility] cell: [phone] [facility] [address] [place] [address] [facility] [address] [place] [address] CC: SELF Phone: N/A Fax: documented in this encounterMercy Health [facility]04-16-2024 Nurse Note* Kelley Kevin RN - 07/06/2023 9:55 AM EDT AMBULATORY PATIENT EDUCATION NOTE TOPIC: GI PROCEDURES: Esophagogastroduodenoscopy(EGD) with or without biopies based on clinical findings, removal of polyps or lesions READINESS TO LEARN INSTRUCTION PROVIDED TO: Patient, readness to learn accessed prior to procedure COGNITIVE ABILITY: Alert and oriented PTED MOTIVATION TO LEARN: Eager FAMILY SUPPORT: None - Unavailable/disinterested IPATIENT LEARNS BEST BY: Individual Instruction FACTORS AFFECTING LEARNING: None PHYSICAL LIMITATIONS AFFECTING LEARNING: None LEARNING RESPONSE METHOD OF INSTRUCTION: Individual instruction PATIENT / FAMILY RESPONSE: Verbalizes understanding of: WORSENING CONDITION- Signs and symptoms of aworsening condition that warrant a call to the physician FOLLOW-UP PLAN: Complete - No need for follow-up SUPPLEMENTAL MATERIAL: Procedure Discharge Instructions REFERRAL (RECOMMENDATION): None * Shalonda Trejo RN - 07/06/2023 9:14 AM EDT PRE OP LEARNING ASSESSMENT PROCEDURE/SURGERY: GI PROCEDURES: EGD READINESS TO LEARN COGNITIVE ABILITY: Alert and oriented MOTIVATION TO LEARN: Eager FAMILY SUPPORT: None - Unavailable/disinterested PATIENT LEARNS BEST BY: Individual Instruction FACTORS AFFECTING LEARNING: None PHYSICAL LIMITATIONS AFFECTING LEARNING: None Electronically Signed By: Shalonda Trejo RN In Department: GASTROENTEROLOGY documented in this encounterMercy Health [facility]04-16-2024 History and physical note * Derrek Bear MD - 07/06/2023 9:30 AM EDT HISTORY AND PHYSICAL Mateus Yi, 73 year old male Current history and physical on file: No Is a new History and Physical required for today's visit? Yes Indication for procedure: Other esophageal varices PROCEDURE(S) SCHEDULED FOR: EGD (Esophagogastroduodenoscopy) with or without biopsies, removal of polyps or lesions, dilation (any means), treatment of bleeding ( any means), Barrx treatment of Norman's Esophagus, image tube placement or cryo therapy treatment based on clinical findings. - banding BASELINE BEHAVIOR: Calm BASELINE ORIENTATION: A & O x3 All medications and allergies reviewed: Yes Skin Assessment: Warm dry mucus membranes pink Airway/Respiratory Assessment: Airway: visualization of the uvula- Yes Mouth: opening greater than 2 fingerbreadths- Yes Neck: full range of motion- Yes Breath sounds clear/equal- Yes Cardiac Assessment: Regular rate and rhythm without murmur Abdominal Assessment: Abdomen soft, non-tender, no masses or organomegaly. Sedation Plan: Moderate Additional Comments: None Derrek Bear MD documented in this encounterMercy Health [facility]04-15-2024 Miscellaneous Notes* Telephone Encounter - Sally Rodriguez MA - 07/05/2023 11:35 AM EDT Requester: Pharmacy Patients last Endocrinology visit occurred 03/24/2023. Follow-up evaluation has been established Upcoming Endocrinology Appointments - Next 365 Days Visit Type Date Time Department EGD 07/06/2023 9:30 AM [facility] ENDOSCOPY . Requested Prescriptions Pending Prescriptions Disp Refills glipiZIDE XL (GLUCOTROL XL) 5 mg 24 hr tablet [Pharmacy Med Name: glipiZIDE ER 5 MG Oral Tablet Extended Release 24 Hour] 30 tablet 0 Sig: Take 1 tablet by mouth once daily If patient is due for an appointment please route to provider for refill consideration and also to the endo scheduling pool. PSS NOTE: Patient needs scheduled appointment No Sally Rodriguez MA documented in this encounterMercy Health [facility]04-05-2024 Miscellaneous Notes* Telephone Encounter - Rex Funes - 06/25/2023 11:43 AM EDT Reviewed patient on the 1st time treatment report. The patient does not have a cancer diagnosis or a chemo/radiation regimen. No further Financial Navigator intervention is needed at this time. documented in this encounterMercy [facility] Hospital2024 Miscellaneous Notes* Telephone Encounter - Herminia Hinojosa RN - 06/23/2023 10:57 AM EDT Called patient to assist with scheduling. VM left to return my call. Herminia Hinojosa RN June 23, 2023 10:57 AM offer him another Wednesday on main campus in early to mid September? He also needs his LVUS moved to the same day as well as labs documented in this encounterMercy Health [facility]iance [facility]04-02-2024 Miscellaneous Notes* Addendum Note - Sury Mathias APRN.ZORAIDA - 06/22/2023 2:33 PM EDTAddended by: SURY MATHIAS on: 06/22/2023 02:33 PM Modules accepted: Orders documented in this encounterMercy Health Def[facility] Hospital04-02-2024 Instructions* Patient Instructions* Chelly Chou RN - 06/22/2023 12:56 PM EDT After Care Instructions Photodynamic Therapy with Levulan and Blue Light Expected skin changes after PDT: The treated skin will likely turn red and may appear slightly swollen 24-48 h after treatment, but you should not see any blistering. Redness usually peaks one-to-two days after treatment and gets better within a week. Actinic keratosis lesions may not be gone until about four weeks after treatment. The skin may be itchy or change color slightly after treatment, but these changes are temporary. Photosensitivity: Levulan remains in the skin for 48 hours, so further reactions (redness and a tingling or burning sensation) can be caused by light exposure if one is not careful. Therefore, for about 2 days after the treatment, you should take care to protect the treated areas from light. Stay out of strong, direct light. Stay indoors as much as possible. Wear protective clothing and wide-brimmed hats to avoid sunlight when outdoors. Avoid beaches, snow, light colored concrete, or other reflective surfaces. After Care steps for you to do at home: Again, avoid direct light for 48 hours. Gently wash area twice a day with Cetaphil, Neutrogena or other mild cleanser. Do not scrub! After cleansing, use Aquaphor or Vaseline twice a day to keep the area moist and free of crust. Apply the topical steroid ointment that your doctor has prescribed for you (or alternatively, you can use 1% hydrocortisone ointment available at any pharmacy) to the entire treated area, twice a dayas needed for 2-4 days, to help decrease redness and irritation. Apply the steroid BEFORE applying Aquaphor ointment, not afterwards. Apply cool compresses as needed for comfort during the first few days. After day 3, gently exfoliate with a soft washcloth and warm water twice a day. Then apply either Aquaphor or Vaseline. To address swelling and redness, you may also take zyjn-hhu-ywabizd oral medications: Claritin (loratidine) 10 mg in the morning, Benadryl (diphenhydramine) 25-50 mg nightly (may cause drowsiness) and/or Ibuprofen as directed. If you absolutely must go outdoors during the first 48 hours, cover yourself with a broad-brimmed hat and use Neutrogena sensitive skin (chemical free) sunscreen SPF 30, or other titanium-dioxide type of sunscreen, in a thick layer to protect you from sunlight If you have questions or concerns, call the following number(s): [facility] [phone] documented in this encounterMer[facility] History of Present illness Narrative* Chelly Chou RN - 06/22/2023 12:55 PM EDT PHOTODYNAMIC THERAPY June 22, 2023 Dx: Actinic Keratosis Pt ID verified with patient: Yes Procedure verified against order and with patient: Yes Skin prepped with 70% isopropyl alcohol Yes Area treated: Full face Number of Levulan sticks applied: 1 Lot # [id number] Exp [id number] Time before Blue Light exposure: 15 minutes Area treated: Full face Pt exposed to light for 30 minutes Patient reaction during treatment: None, patient tolerated procedure well. Patient reaction after treatment: None, patient tolerated procedure well. Aftercare instructions given. Patient verbalizes understanding. Follow up with Sury Mathias CNP . Chelly Chou RN documented in this encounterMercy [facility]03-29-2024 History of Present illness Narrative* AlemanLashonda aleman - 06/18/2023 10:27 AM EDT New Consult Note Mateus Yi 1950 Encounter date: 06/18/2023 HPI: Mateus Yi is a 73 year old male presenting as a new referral from his psychology assistant, Dr. Bear, for iron deficiency anemia. Mr. Yi has a PHMx significant for autoimmune hepatitis, cirrhosis and chronic thrombocytopenia. He also has history of CHF, cardiomyopathy, with ICD in place. He was previously diagnosed with autoimmune hepatitis and was on prednisone and Imuran but he didnot tolerate treatment because of hyperglycemia induced by steroid. He is currently on CellCept andtacrolimus and has been doing well. He was previously seen by Dr. Hills in 2020 for thrombocytopenia.His platelets remain stable at this time. He follows closely with GI and has had appropriate GI workup. Recent bleeding esophageal varices on03/2023 EGD. No current s/s of active bleeding. Most recent hgb 11. Iron 33, TIBC 341, Tsat 9.7. Generally very active however he has been more fatigued. AGOSTO, SOB from baseline. Denies N/V/C/D. [place] or tarry stools. No known blood transfusions or iron in the past Sciatic pain/damage many years ago caused n/t, stable for him. Does not follow any particular diet but has been working to decrease his sugar intake. . Denies PICA or ice cravings. No RLS. 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 No know chemical exposures. PAST MEDICAL HISTORY Diagnosis Date Arthritis of [...] PAST SURGICAL HISTORY OF knee arthroscopy Current Outpatient Medications Medication Sig Dispense Refill cholecalciferol, vitamin D3, (VITAMIN D3 ORAL) Take 1 tablet by mouth three times a week. Lactobacill 46-B.animal-inulin (PROBIOTIC-10, WITH INULIN,) 10 billion cell -100 mg cap Take 1 tablet by mouth once daily. probenecid 500 mg tablet Take 1 tablet by mouth two times a day. 180 tablet 1 amLODIPine (NORVASC) 5 mg tablet Take 1 tablet by mouth once daily. 90 tablet 1 glipiZIDE (GLUCOTROL XL) 5 mg 24 hr tablet Take 1 tablet by mouth once daily 30 tablet 0 carvedilol (COREG) 12.5 mg tablet Take 1 tablet by mouth two times a day with meals. 60 tablet 1 mycophenolate Mofetil (CELLCEPT) 500 mg tablet Take 1 tablet by mouth twice daily 180 tablet 0 triamcinolone (KENALOG) 0.025 % ointment Apply to affected area 2 times daily for 1-2 weeks after PDT [address] (PROTONIX) 40 mg tablet Take 1 tablet by mouth two times a day. 60 tablet 11 cloNIDine HCl (CATAPRES) 0.1 mg tablet Take 1.5 tablets by mouth two times a day. 270 tablet 1 tacrolimus IR (PROGRAF) 1 mg capsule Take 1 capsule by mouth two times a day. 180 capsule 3 Amoxicillin 500 mg tablet 2000 mg by mouth 1-2 hours prior to dental procedures 16 tablet 0 metroNIDAZOLE 1 % gel Apply 1 application to affected area once daily. Location: face 60 g 1 OTC NUTRITIONAL SUPPLEMENT Take 1 tablet by mouth once daily. Take by mouth as directed. (Patient not taking: Reported on 06/18/2023) 90 tablet 1 insulin degludec (TRESIBA FLEXTOUCH U-100) 100 unit/mL (3 mL) injection pen Inject 5 units once daily (Patient not taking: Reported on 06/18/2023) 3 mL 5 Insulin [place], Disposable, (BD ULTRAFINE III MINI PEN) 31 gauge x 3/16 USE WITH INSULIN PENS 1 TIME(S) DAILY 100 Each 3 Blood-Glucose Sensor (DEXCOM G7 SENSOR) wilmer CHANGE SENSOR EVERY 10 days. USE FOR CONTINOUS GLUCOSEMONITORING. INSULIN USE. E11.9 9 Each 3 OTC NUTRITIONAL SUPPLEMENT Take by mouth as directed. (Patient not taking: Reported on 06/18/2023) 60 capsule 1 Current Facility-Administered Medications Medication Dose Route Frequency Provider Last Rate Last Admin sodium chloride 0.9 % (flush) 10 mL (BD POSIFLUSH) 10 mL INTRAVENOUS DIRECTED PRN John Munguia MD ALLERGIES Allergen Reactions Vicodin [Hydrocodon* Anaphylaxis stopped breathing Hibiscus Hives, Shortness of Breath Percocet [Oxycodone* Shortness of Breath Pt states he dosent have a allergy to percocet Valsartan Intolerance Cramps in legs, muscle pain FAMILY HISTORY Problem Relation Age of Onset Cataract Father Heart Father Hypertension Father Cancer Brother lung Heart disease Brother pacemaker. cardiac ablation Alcohol/Drug Brother No Known Problems Son Heart Paternal Uncle suddenly at age 40's, 2 other uncles suddenly Social History Tobacco Use Smoking status: Former Types: Cigars Smokeless tobacco: Never Vaping Use Vaping Use: Some days Substances: THC, CBD Devices: Disposable Substance Use Topics Alcohol use: Not Currently Drug use: Yes Types: Marijuana Comment: medical marijuana Review of Systems: Negative except as noted in HPI reviewed 06/18/2023 Physical Exam: BP 116/76 Pulse 64 Temp 98.6 Ht 5' 10.965 (1.80m) Wt 185 lb (83.9kg) SpO2 97% BMI 25.81 kg/(m^2). General: Age-appropriate well developed. Appears well. HEENT: Normocephalic, no sclera icterus, external ears normal, oral cavity clear. Neck: Supple, no thyroid nodules, no JVD. Chest: Clear bilaterally, no wheezes, not labored. Heart: RRR Abdomen: Soft, nontender, nondistended, bowel sounds present, no organomegaly or mass, no rigidity. Extremities: No cyanosis, clubbing, gross deformities Neurological: Cranial nerves II through XII are intact bilaterally, no focal deficits. Skin: Warm and dry with no rashes or ulcerations. Nodes: No palpable adenopathy in the cervical, supraclavicular, infraclavicular, or axillary regions. Hematologic: no bruising or petechiae. Psychiatric: Alert and oriented x3. Emotional well-being assessment was performed. Pt denies depression, distress, and or problems with coping or adjustment. I have performed the physical exam today (06/18/2023) and have edited the note to correlate with current findings. Lab Results Component Value Date WBC 4.06 05/21/2023 HB 11.0 (L) 05/21/2023 MCV 86.3 05/21/2023 PLT 91 (L) 05/21/2023 Lab Results Component Value Date NA 135 (L) 05/21/2023 K 4.2 05/21/2023 CO2 26 05/21/2023 BUN 30 (H) 05/21/2023 CREAT 1.29 (H) 05/21/2023 TBILI 0.5 05/21/2023 TPROT 7.7 05/21/2023 ALB 3.9 05/21/2023 ALKPHOS 213 (H) 05/21/2023 ALT 24 05/21/2023 AST 36 05/21/2023 Ferritin Date Value Ref Range Status 11/05/2020 117.0 30.3 - 565.7 ng/mL Final 08/22/2018 195.2 30.3 - 565.7 ng/mL Final Iron Date Value Ref Range Status 05/21/2023 33 (L) 41 - 186 ug/dL Final 11/05/2020 124 41 - 186 ug/dL Final 08/22/2018 110 41 - 186 ug/dL Final TIBC Date Value Ref Range Status 05/21/2023 341 232 - 386 ug/dL Final 11/05/2020 274 232 - 386 ug/dL Final 08/22/2018 278 232 - 386 ug/dL Final Transferrin Saturation Date Value Ref Range Status 05/21/2023 9.7 (L) 15.0 - 57.0 % Final 11/05/2020 45 15 - 57 % Final 08/22/2018 40 15 - 57 % Final Assessment and Plan: Mr. Yi is a pleasant 73 year old gentleman presenting for ROSALIE Anemia, Iron Deficiency - hx of autoimmune hepatitis, cirrhosis and chronic thrombocytopenia, on cellcept, tacro - ref from GI for IV iron, UTD on scopes, workup completed - bleeding esophageal varices on 03/2023 EGD, due for repeat scope/banding - no current s/s of bleeding, on PPI - reviewed causes, s/s of anemia with patient today, pt acknowledged. - previous labs reviewed with pt in detail today - Recommend: IV iron sucrose 200mg x 5 as he is symptomatic: fatigued, SOB - Repeat CBC, Iron studies in about 8-12 weeks following last IV iron dose. May require maintenancedose if persistent bleeding., pt acknowledged - RTC with labs about 12 weeks. *Out of the country last week of july for 3 weeks Lashonda Aleman APRN.UTILIZATION REVIEWER I spent a total of 45 minutes on the date of the service which included preparing to see the patient, [id number] patient care, completing clinical documentation, performing a medically appropriate examination, ordering medications, tests, or procedures, and communicating results to the patient/fam marquis/caregiver. Portions of this note including HPI, ROS, impression/plan may have been copied forward as to provide important historical information essential in contributing to medical decision making. Documentation has been reviewed and edited as necessary to support clinical decision making for today's visit and to reflect my own independent evaluation of this patient. 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 cardiac ablation Alcohol/Drug Brother No Known Problems Son Heart Paternal Uncle suddenly at age 40's, 2 other uncles suddenly Social History: Social History Tobacco Use Smoking status: Former Types: Cigars Smokeless tobacco: Never Vaping Use Vaping Use: Some days Substances: THC, CBD Devices: Disposable Substance Use Topics Alcohol use: Not Currently Drug use: Yes Types: Marijuana Comment: medical marijuana Current Outpatient Medications on File Prior to Visit Medication Sig probenecid 500 mg tablet Take 1 tablet by mouth two times a day. amLODIPine (NORVASC) 5 mg tablet Take 1 tablet by mouth once daily. glipiZIDE (GLUCOTROL XL) 5 mg 24 hr tablet Take 1 tablet by mouth once daily carvedilol (COREG) 12.5 mg tablet Take 1 tablet by mouth two times a day with meals. mycophenolate Mofetil (CELLCEPT) 500 mg tablet Take 1 tablet by mouth twice daily triamcinolone (KENALOG) 0.025 % ointment Apply to affected area 2 times daily for 1-2 weeks after PDT pantoprazole DR (PROTONIX) 40 mg tablet Take 1 tablet by mouth two times a day. cloNIDine HCl (CATAPRES) 0.1 mg tablet Take 1.5 tablets by mouth two times a day. insulin degludec (TRESIBA FLEXTOUCH U-100) 100 unit/mL (3 mL) injection pen Inject 5 units once daily Insulin [place], Disposable, (BD ULTRAFINE III MINI PEN) 31 gauge x 3/16 USE WITH INSULIN PENS 1 TIME(S) DAILY Blood-Glucose Sensor (DEXCOM G7 SENSOR) wilmer CHANGE SENSOR EVERY 10 days. USE FOR CONTINOUS GLUCOSEMONITORING. INSULIN USE. E11.9 tacrolimus IR (PROGRAF) 1 mg capsule Take 1 capsule by mouth two times a day. Amoxicillin 500 mg tablet 2000 mg by mouth 1-2 hours prior to dental procedures metroNIDAZOLE 1 % gel Apply 1 application to affected area once daily. Location: face OTC NUTRITIONAL SUPPLEMENT Take by mouth as directed. Current Facility-Administered Medications on File Prior to Visit Medication sodium chloride 0.9 % (flush) 10 mL (BD POSIFLUSH) I have confirmed and edited as necessary, the PFSH and ROS obtained by others. Complications of Cirrhosis: 1. Ascites: No 2. SBP: No 3. Non-bleeding varices: Yes 4. Variceal hemorrhage: Yes 5. Portosystemic encephalopathy: No 6. Hepatorenal syndrome: No 7. Hepatopulmonary syndrome: No 8. Hepatic hydrothorax: No 9. Recurrent cholangitis (PSC): N/A Vitals: BP 142/68 Pulse 60 Temp (Src) 97.6 (Temporal) Ht 6' 0 (1.83m) Wt 184 lb 11.9 oz (83.8kg) SpO2 97% BMI 25.05 kg/(m^2). Physical Exam: GENERAL: no apparent distress, pleasant HENT: no lymphadenopathy EYES: no scleral icterus LUNGS: clear to auscultation bilaterally CARDIAC: regular rate and rhythm, normal S1, S2, no murmurs ABDOMEN: no ascites, no hepatosplenomegaly, no tenderness, rebound, or guarding EXTREMITIES: no edema. NEURO: AOx3. No asterixis SKIN: no jaundice Laboratory: CBC Hemoglobin (g/dL) Date Value 05/21/2023 11.0 12/25/2020 13.8 Hematocrit (%) Date Value 05/21/2023 32.8 12/25/2020 39.6 WBC (k/uL) Date Value 05/21/2023 4.06 12/25/2020 4.92 Platelet Count (k/uL) Date Value 05/21/2023 91 12/25/2020 62 CMP Glucose 109 05/21/2023 BUN 30 05/21/2023 Creatinine 1.29 05/21/2023 Sodium 135 05/21/2023 Potassium 4.2 05/21/2023 Chloride 103 05/21/2023 CO2 26 05/21/2023 Protein, Total 7.7 05/21/2023 Albumin 3.9 05/21/2023 Calcium 9.1 05/21/2023 Alkaline Phosphatase 213 05/21/2023 Bilirubin, Total 0.5 05/21/2023 AST 36 05/21/2023 ALT 24 05/21/2023 PT/INR AFP Lab Results Component Value Date AFP 4.6 01/29/2023 IMAGING STUDIES: CT Liver 03/11/2023 IMPRESSION: Cirrhosis with portal hypertension. No OPTN class 5/LI-RADS 5 liver lesion. Impression/Recommendations Assessment and Plan: In conclusion, Mateus Yi is a 73 year old male with PMH autoimmune hepatitis with bridging fibrosis and chronic inflammation on biopsy in 2019 currently being treated with tacrolimus and MMF, DM-2, HTN, HCM w/ syncope s/p ICD in 2012 who presents for follow-up. 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 MELD-Na: {MELD 3.0: 12 at 01/29/2023 7:48 AM MELD-Na: [...] years Sex: Male at 01/29/2023 7:48 AM - will obtain updated MELD labs in August 2023 at time of repeat liver imaging - continue MMF 500 mg PO BID and tacrolimus 1 mg Q12H Ascites - none Hepatic encephalopathy - none Varices - esophageal - history of bleeding - yes in 03/2023 - date of last EGD - 03/2023 - next EGD due now, will need aggressive banding as he is on max dose coreg for portal HTN and cannot tolerate statins due to myalgias - on non-selective beta david for primary prophylaxis with coreg 12.5 mg PO BID; titrate to HR 55-60 - has significant iron deficiency anemia that is symptomatic - will refer to hematology for IV ironinfusions HCC screening - requires imaging every 6 months if evidence of advanced fibrosis/cirrhosis + AFP - last imaging 02/2023 - next imaging due 08/2023 Health Maintenance: - Screening Colonoscopy: due in 2030 (last in 03/2020) - Hepatitis Vaccination status: immune to HAV by serologies, s/p HBV vaccination RV in August 2023 I spent a total of 40 minutes on the date of the service which included preparing to see the patient, [id number] patient care, completing clinical documentation, obtaining and/or reviewing separately obtained history, performing a medically appropriate examination, counseling and educating the pat ient/family/caregiver, ordering medications, tests, or procedures, communicating with other HCPs (not separately reported), independently interpreting results (not separately reported), communicatingresults to the patient/family/caregiver, and care coordination (not separately reported). Derrek Bear MD Staff, Gastroenterology/Hepatology [facility] [place] documented in this encounterMer[facility]03-25-2024 Miscellaneous Notes* Telephone Encounter - Sanna Beckett LPN - 06/14/2023 11:06 AM EDT Patient has been identified by name and date of : Yes, Patient phones for refill(s): Requested Prescriptions Pending Prescriptions Disp Refills probenecid 500 mg tablet 180 tablet 1 Sig: Take 1 tablet by mouth two times a day. amLODIPine (NORVASC) 5 mg tablet 90 tablet 1 Sig: Take 1 tablet by mouth once daily. Date of last office visit in primary care: 04/16/2023 Date of next office visit in primary care: 07/16/2023 Please advise. Thank you. Sanna Beckett LPN. documented in this encounterMercy Health [facility]03-20-2024 Miscellaneous Notes* Telephone Encounter - India Hand Ma - 06/09/2023 8:13 AM EDT Please review pt's RX request, last OV was 03/24/23 and no future appt's scheduled at this time. documented in this encounterMercy Health [facility]03-04-2024 Miscellaneous Notes* Telephone Encounter - Martha Kaplan Ma - 05/24/2023 1:32 PM EST Patient was made aware of the results. Patient verbalizes understanding. Martha Kaplan Ma * Telephone Encounter - Sanna Larsen APRN.CNS - 05/24/2023 12:52 PM EST Please let patient know that her iron level is 33, blood counts are improved since the last check amonth ago, alkaline phosphatase is a liver function test is slightly elevated-seeing GI later this month, creatinine improved slightly now at 1.29, and LDL cholesterol increased a little to 95. Overall, things do not look too bad.. Keep GI follow-up. documented in this encounterMercy Health [facility]02-20-2024 History of Present illness Narrative* Sury Mathias APRN.CNP - 05/11/2023 10:45 AM EST Images from the original note were not included. Department of Dermatology Sury Mathias APRN.UTILIZATION REVIEWER 05/11/2023 Last visit in Dermatology: Visit date not found Objective/Assessment/Plan 1. AK (actinic keratosis) Head - Anterior (Face) Red papules with gritty adherent scale. Related Procedures PHOTODYNAMIC THERAPY Related Medications Aminolevulinic Acid HCl 20 % soln 2 Each triamcinolone (KENALOG) 0.025 % ointment Apply to affected area 2 times daily for 1-2 weeks after PDT 2. Seborrheic keratosis Stuck-on verrucous, variably pigmented papules and plaques. Scattered to the trunk, bilateral upperextremities, bilateral lower extremities. Observational course. Monitor for growth and changes. 3. Henriquez angioma Henriquez-red papule(s). Scattered to the trunk, bilateral upper extremities, bilateral lower extremities. Observational course. Monitor for growth and changes. 4. Multiple benign nevi Multiple scattered pink papules with flaccid epidermis and small, symmetric santillan to brown macules with uniform pigmentation over the trunk and extremities. Observational course. Monitor for growth and changes. 5. Lentigines Densely scattered light santillan macules and small patches on all sun exposed areas. Observational course. Monitor for growth and changes. 6. Neoplasm of unspecified behavior of bone, soft tissue, and skin Right Thigh - Posterior [id number] erythematous scaly plaques SKIN / NAIL BIOPSY Type of biopsy: tangential Informed consent: discussed and consent obtained Timeout: patient name, date of , surgical site, and procedure verified Procedure prep: Patient was prepped and draped in usual sterile fashion Prep type: Isopropyl alcohol Anesthesia: the lesion was anesthetized in a standard fashion Anesthetic: 1% lidocaine w/ epinephrine 1-100,000 local infiltration Instrument used: DermaBlade Hemostasis achieved with: aluminum chloride Outcome: patient tolerated procedure well Post-procedure details: sterile dressing applied Dressing type: bandage and petrolatum Specimen A - SURGICAL PATHOLOGY SKIN ONLY R/b/a for the treatment/ medication(s) including possible side effects discussed and reviewed with patient. The nature of sun-induced photo-aging and skin cancers is discussed. Sun avoidance, protective clothing, and the use of 30-SPF sunscreens is advised. Patient is instructed to perform regular self exams. Observe for changing, symptomatic, or new skin lesions and seek care with the patient's primary care provider or with dermatology if any lesions of concern are noted. Follow-up as noted below or as needed. Chief Complaint: Patient presents with: Full Body Skin Check Subjective and Objective HPI: Mateus Yi is a 73 year old male who presents for: Skin check. Desires: Total body skin check History of skin cancer?: No Areas of particular concern?: Yes: face Rash on the posterior thigh. Comes and goes for years. Medication list is reviewed. Physical Exam included: Scalp, face, ears, neck, chest, back, abdomen, bilateral upper extremities, bilateral lower extremities, buttocks, hands, feet, nails and hair Intake information obtained by Janell Davila MA The documentation for this note was completed by Lauren Roberts MA acting as scribe for Sury Mathias APRN.CNP. May 11, 2023 11:08 AM Procedure: shave Informed Consent Consent Obtained: Verbal [place] Protocol A moment to CARE was completed SIGN IN Personnel directly involved with the procedure wore the appropriate PPE Special Equipment: N/A Patient/Surrogate Stated/Verified: Patient name, Date of , Relevant allergies and Intended procedure TIME OUT Intended patient and procedure match the source document(s) No relevant labs, photos, and/or imaging studies were applicable for review. Correct side/site marked and visible. Medications required for procedure verified. Fire risk assessed and interventions discussed. No implant(s) inserted. SIGN OUT All specimen containers correctly labeled. All instruments, equipment, possible retained foreign bodies accounted for. Post-procedure follow-up management communicated and Plan of Care Visit completed when applicable I agree with the Chief Complaint, ROS, and Past Histories independently gathered by the clinical print support specialist and the remaining scribed note accurately describes my personal service to the patient. Sury Mathias APRN.CNP documented in this encounterMercy Health [facility]02-19-2024 Instructions* Patient Instructions* Lauren Roberts MA - 05/10/2023 2:03 PM EST GENERAL SUN SAFETY Thank you for allowing me to examine you for signs of skin cancer today. We had an opportunity to discuss my findings and any treatments I recommended. I believe that there are several steps that a person can do to help prevent skin cancers and to detect them at an early, treatable stage: 1. I highly recommend that once a month you perform your own complete skin check looking for changing or unusual spots. Use a wall-mounted mirror and a hand mirror to assist in seeing body areas thatare difficult to see otherwise. If you have a family member that can assist, this is often helpful.Additional information can be obtained at: www.skincancer.org/xprt-mvlfgs-jfdfnbfahqa/early-detection 2. In many cases, skin cancer can be prevented. The best way to protect yourself is to avoid too much sun and sunburns. Health care providers believe that ultraviolet rays (UV rays) from the sun damage the skin and over time lead to skin cancer. Here are ways to protect yourself: -Don't spend long periods of time in direct sunlight. -Wear hats with brims to protect your face and ears. -Wear long-sleeved shirts and pants to protect your arms and legs. -Use broad spectrum sunscreens with a SPF (skin protection factor) of 30 or higher that protect against burning and tanning rays. Apply the lotion 30 minutes before you go outside. (Broad-spectrum sunscreens protect against UV-B and UV-A rays.) -Wear sunglasses to protect your eyes. -Use a lip balm with sunscreen. -Avoid the sun between 10am and 4pm. -Show any changing mole to your health care provider PATIENT INSTRUCTIONS: BLUE LIGHT PHOTODYNAMIC THERAPY (PDT) What is PDT? How do conventional PDT and Painless PDT differ? Photodynamic Therapy (PDT) is a procedure for treating Actinic Keratoses (AK) on the face, ears or scalp. AKs are precancerous lesions that occur mostly in sun- exposed areas of the skin. During PDT, a topical drug called Levulan is applied to the skin, and the patient then sits under a blue light to activate the medication and destroy precancer cells. In conventional PDT, Levulan is applied to the skin and left to incubate for ~90-120 minutes before the light is turned on. With that regimen, most patients experience stinging pain during illumination that can sometimes be severe. In the new Painless PDT regimen, Levulan is left on for a very brief time (5 to 15 min) prior to starting the light. The patient feels no pain. Despite this gentler approach, the desired result (gradual inflammation followed by clearance of the precancer lesions) is still achieved. The new regimen was validated in a clinical trial performed at the [facility] [1]. [1] Genny U, Ralf M, Neil T, Giorgi L, Ava M, Deandre A, Jeramy B, Bg DUENAS, Sherin EV. A regimento minimize pain during blue light photodynamic therapy of actinic keratoses: bilaterally controlled, randomized trial of simultaneous versus conventional illumination. Journal of [employer] Academy ofDermatology 2019; 82(4):862-868. What to expect during the treatment? The doctor or nurse will prepare the skin with an alcohol wipe to remove any make-up or residual oil. Levulan will be applied to the entire skin of the face or scalp, not just to visible lesions, so that all precancer cells within the sun-damaged area take up the medication and become selectively targeted by the light. You will be given dark eye goggles to wear as you sit in front of the blue light (for ~17 minutes with conventional PDT, or 30 minutes with Painless PDT). During conventional PDT, a fan and ice water may be used to relieve stinging during illumination, whereas during Painless PDT you may experience warmth or tingling but no pain. What to expect after the treatment? By the evening on the day of PDT, there will be some [id number] redness of the treated areas.By the next day you will develop more intense redness which typically lasts for 3-4 days, along with a stretchy feeling followed by some mild peeling, similar to how a sunburn heals. All of these changes are expected to settle down in a week to ten days. Your caregiver can prescribe a medium strength topical steroid, such as triamcinolone, for you to use in the first few days after PDT. This willreduce unnecessary inflammation and will not decrease effectiveness of the therapy. You will also be given a sheet with more detailed aftercare instructions. How long will the visit last? The time you spend in clinic will be different, depending upon whether you are scheduled for painless PDT or for conventional PDT. For the Painless treatment, the visit will take ~1 hour. For conventional PDT, the visit will require ~3 hours. Can I shave before the treatment? Facial hair can interfere with PDT, so we recommend shaving on the morning of your treatment. Aftertreatment, shaving in treated facial areas should be delayed for two or three days until redness subsides. Should I stop taking any medications prior to the treatment? Retinoid-containing creams, and tetracycline antibiotics (such as doxycycline or minocycline) should be stopped 2 weeks before the treatment, since they can make your skin more sensitive to the light. Can PDT cause a flare of cold sores? Occasionally, there might be a flare up of Herpes Simplex infection after PDT. If you have a history of herpes simplex cold sores , please let us know and we can prescribe an oral medication (valacyclovir) for you to take to prevent this. What precautions should I take after the treatment? The most important precaution is that you MUST stay out of direct sunlight, and strong commercial lighting, for 48 hours after the treatment. After you finish the treatment, you will be given an informational flyer which contains detailed aftercare instructions. When should I follow up with dermatology? Your lesions will definitely be improved after PDT. However, lesions may begin to return 6-9 monthsafter PDT, so that people with numerous actinic keratoses may require a second treatment to achievean optimal response. We recommend scheduling a follow-up with your regular wrapper sorter at 6-12 months after PDT to assess how well your lesions have responded, and to see whether a repeat treatmentis necessary. Is PDT safe? PDT is generally very safe. It is one of the most popular non-invasive treatments for precancerous lesions. The only major risk is severe sunburn if patients fail to completely avoid any sun exposurefor 48 hours after PDT. We very strongly emphasize sun avoidance. Should I bring anything to my visit? You should bring a broad brim hat to protect your face and scalp from the sun. To listen to music on your smartphone during the treatment, please bring earbuds that will not interfere with the light. Do I need to do anything to prepare my skin for PDT? Sometimes, your provider may recommend a pretreatment to improve the outcome of the PDT treatment. These include: A short course of Efudex (fluorouracil) cream for 7 days immediately prior to PDT. High-dose oral Vitamin D (10,000 units/day) for 7 days immediately prior to PDT. What s new in PDT? We have an active research program on improving PDT treatments for skin cancer. If you are interested in learning more, you can e-mail a request for more information to: Information prepared by Dr. Duff [facility] Department of Dermatology 07/29/2022 HOME CARE INSTRUCTIONS AFTER PHOTODYNAMIC THERAPY Avoid direct sunlight for 48 hours. The reason is that additional sun exposure will lead to more redness and burning on your skin. (Specifically, stay indoors during the day. If you must go outside briefly, wear a broad brim hat that casts your face in shadow. But once again, it is better to just stay inside). Gently wash the area twice a day with a mild cleanser such as Cetaphil. Do not scrub! After cleansing, gently pat dry with a towel and apply a thin layer of Aquaphor ointment twice daily to keep the area moist and free of crust. Alternatively, petroleum jelly (Vaseline) can be used. If needed for relief of inflammation, redness, and discomfort, you can apply a topical steroid ointment (either triamcinolone 0.1% by prescription, or 1% hydrocortisone [id number]) to the entire treated area. You can do this twice daily for 1-2 weeks, if needed. Apply a very thin layer of thesteroid before applying Aquaphor. Be careful to keep the steroid away from the eyes. Apply cool compresses for comfort, as needed, during the first few days. After day 3, gently exfoliate with a soft washcloth and warm water twice a day. Then apply Aquaphor. If a sunscreen is needed, use any sensitive skin (chemical free) sunscreen with SPF 30 or other titanium-dioxide type of sunscreen since chemical sunscreens may be too irritating. Ibuprofen may be taken for any inflammation, swelling, pain, and discomfort. Over the counter Claritin (loratadine) 10 mg taken in the morning and Benadryl (diphenhydramine) 25-50 mg taken nightly (which may cause drowsiness) can relieve symptoms of itchiness. Please call the office if you have any questions or problems during the healing process. Photodynamic Therapy is available in these locations [facility] * [facility] [phone] Jodi Sumner [phone] [place] [phone] [facility] [phone] [place] [phone] [place] [phone] [facility]* [phone] [place] [phone] * Red light available CARE FOR YOUR SHAVE BIOPSY SITE Please follow these instructions for daily wound care: 1. Wash the area every day with gentle soap and water. 2. Apply a thin layer of Vaseline or Aquaphor to the wound site to keep the area slightly greasy atall time (this helps to prevent scabbing). Please do not use an old tub of ointment as this can introduce germs into your wound and cause infection. 3. Cover with a bandage and continue this daily process until the wound is healed. Do not leave a soiled or wet bandage on the wound. -Keep the area clean and dry with the bandage in place the day of surgery. -If you experience any bleeding, please apply pressure to the area for approximately 10 minutes. -You may shower, but do not soak in a bathtub, hot tub, pool, pinto, etc until after the wound has healed. -DO NOT USE NEOSPORIN OR BACITRACIN as there is a fairly high incidence of allergic response to these products. -You may experience some mild discomfort, redness, swelling, and/or a clear discharge from the wound after your procedure. Severe pain, worsening swelling, and foul-smelling discharge from the site are NOT to be expected. If you have concerns about how your wounds are healing, please send your provider a [employer] message or call . [facility] Discharge summary Author Syed Salazar [facility] March 29, 2023 1:23pm Note Date/Time March 29, 2023 1: 17pm [facility] Medical Records Department [address] [place] [address] Discharge Summary 03/29/23 1309 MR#: [id number] Acct: [id number] Name: PARKER YI Rep #:[id number] : 1950 72 From: Syed Iniguez PCP: Dr. Davis May MD Status:ADM I N Location: [place] [id number] Providers Date of Admission: 03/26/23 Date of Discharge: 03/29/23 Primary Care Physician: Dr. Davis May MD Reason For Visit: UPPER GI BLEED Diagnosis Discharge Diagnosis (1) Acute upper gastrointestinal bleeding: Status: Acute Code(s): K92.2 - Gastrointestinal hemorrhage, unspecified (2) History of immunosuppression therapy: Status: Inactive Code(s): Z92.25 - Personal history of immunosuppression therapy (3) Diarrhea: Status: Deleted Code(s): R19.7 - Diarrhea, unspecified Qualifiers: Diarrhea type: unspecified type Qualified Code(s): R19.7 - Diarrhea, unspecified (4) Anemia: Status: Acute Code(s): D64.9 - Anemia, unspecified Qualifiers: Anemia type: unspecified type Qualified Code(s): D64.9 - Anemia, unspecified (5) Elevated serum creatinine: Status: Acute Code(s): R79.89 - Other specified abnormal findings of blood chemistry (6) Esophageal varices: Status: Acute Code(s): I85.00 - Esophageal varices without bleeding Qualifiers: Esophageal varices type: idiopathic Esophageal varices bleeding: with bleeding Qualified Code(s): I85.01 - Esophageal varices with bleeding Plan 72-year-old gentleman with multiple comorbidities was admitted for black stool/melena and coffee-ground emesis. Symptoms started in the morning of admission along with upper abdominal discomfort with decreased appetite. Upper GI bleed secondary to grade 2 esophageal varix bleeding: Patient was admitted in PCU. GI was consulted -EGD was performed on 04/16/2023 and found grade 2 esophageal varices that were able to be completely eradicated with extensive banding and Hemospray, no gross lesions were found in the stomach or the duodenum Patient was treated with IV Protonix drip, octreotide drip and IV ceftriaxone for more than 60 hours. Pantoprazole switched to oral 40 mg twice daily. With GI bleed, severe anemia and thrombocytopenia; CellCept was held and recommended to hold for [address] Bear before resumption. - Acute blood loss anemia secondary to acute upper GI bleed: Patient hemoglobin is9.3. Platelet count 56,000. Hemoglobin has been above 9% for last 2 days. He has baseline hemoglobin seems 13.2. Patient did not require blood transfusion or blood products. Chronic thrombocytopenia -Baseline platelet count appears to run between 70,000 and 90,000. It was 46,000 yesterday. Platelet count 56,000. Improving CKD stage IIIa: He is estimated creatinine clearance fluctuates about 55 mL/min. 1.37, 1.47. Follow-up BMP in 1 week and follow with PCP. If creatinine goes high, tacrolimus dose needs to be readjusted, probably decreased History of autoimmune hepatitis -Has had multiple images and EGDs -Has never been told he has varices -Continue home medication for immunosuppression once able to restart p.o. medication -Ongoing outpatient follow-up after discharge with correspondence section supervisor History of gout -Restart home probenecid once able to start p.o. medication Hypertension and history of hypertrophic cardiomyopathy: -IV metoprolol 5 every 6 with hold parameters in place -Continue to hold home oral medications -As needed hydralazine is available Metoprolol resumed. History of arthritis -Patient denies ever using NSAIDs -As needed Tylenol if needed DVT prophylaxis -SCDs -Chemoprophylaxis contraindicated due to GI bleeding CODE STATUS -Full code Discharge medication reconciliation done. Discharge follow-up instructions completed. Discharge process discussed with the patient and all questions wereanswered to patient's satisfaction. Follow with PCP in 1 to 2 weeks Total time spent, exact 35 minutes on discharge meds reconciliation, examination, coordination of care with nurses and ancillary staff, review of imaging and blood test and discussion with the patient on follow-up instructions. Medications at Discharge Home Medications clonidine HCl 0.1 mg tablet 1.5 tab PO BID 08/20/19 tacrolimus 1 mg capsule, immediate-release 1 mg PO BID supplement 08/20/19 amlodipine 5 mg tablet 5 mg PO DAILY blood pressure 03/27/23 metoprolol succinate 100 mg tablet,extended release 24 hr 100 mg PO Q12H heart 03/27/23 mycophenolate mofetil 500 mg tablet (CellCept) 500 mg PO BID organ rejection 03/27/23 probenecid 500 mg tablet 500 mg PO BID gout 03/27/23 pantoprazole 40 mg tablet,delayed release (Protonix) 40 mg PO BID #60 tabs 03/29/23 Physical Exam Narrative Seen and examined. Patient is tolerating clear to full liquid. Diet advance to soft diet. No acute abdominal pain. Had last BM 2 days ago. Physical exam: General: Alert, Oriented x3, Cooperative HEENT: Pale conjunctiva. Atraumatic, PERRLA, EOMI, Normocephalic Oral: No Gingival or Mucosal Lesions/ Ulcerations Neck: Supple, No JVD, Negative Carotid Bruits Lungs: Air entry diminished in bilateral lung bases. No crepitation/rhonchi Cardiovascular: Regular rate, Regular Rhythm, Normal S1, Normal S2, systolic murmur over right second ICS. No radiation to carotids. Abdomen: Bowel Sounds Present, Soft, Non Tender, Non-Distended. Liver not enlarged. : No renal angle tenderness. No suprapubic tenderness. Extremities: No edema, Capillary Refill Less than 3 Seconds Skin: No rashes, No breakdown Musculoskeletal: No Tenderness to Palpation of Joints or Extremities Neurological: Cranial nerves II-XII grossly intact, DTR 2+/4. No acute focal neurological deficit. Psych/Mental Status: Normal Affect, Appropriate. Weight / BMI Weight Weight: 173 lb 1.006 oz Body Mass Index (BMI) 23.4 ABG / Lab / Microbiology Data 03/29/23 06:00 03/29/23 06:00 Laboratory: Laboratory Results - last 24 hr 03/28/23 05:08: Diff Path Review Reviewed 03/28/23 13:44: Hgb 8.5 L 03/28/23 17:30: Hgb 9.0 L 03/29/23 06:00: WBC 4.6, RBC 2.97 L, Hgb 9.3 L, Hct 28.4 L, MCV 95.6 H, MCH 31.3, MCHC 32.7, RDW Std Deviation 47.8 H, RDW Coeff of Donna 13.9, Plt Count 56 L, MPV 13.7 H, Immature Gran % (Auto) 0.200, Neut % (Auto) 56.3, Lymph % (Auto) 30.5, [place] % (Auto) 8.9, Eos % (Auto) 3.7, Baso % (Auto) 0.4, Absolute Neuts (auto) 2.6, Absolute Lymphs (auto) 1.40, Nucleated RBC % 0, Platelet Estimate MKD DEC, Sodium 139, Potassium 3.9, Chloride 110 H, Carbon Dioxide 25.0, Anion Gap 4 L, BUN 21 H, Creatinine 1.47 H, Estim Creat Clear Calc 48.39, Est GFR (MDRD) Af Amer 60, Est GFR (MDRD) Non-Af 50 L, BUN/Creatinine Ratio 14.3, Glucose 138 H, Calcium 8.2 L Microbiology: Microbiology 03/26/23 22:19 Stool Stool Lactoferrin - Final 03/26/23 22:19 Stool Enteric Bacteriology - Final D/C Instructions Discharge Diet: Light diet - advance as tolerated (For 5 days) Weight Bearing Status: Weight bearing as tolerated Call your doctor if you observe: Fever of 101 or Higher, Coldness, Increased Pain, Numbness or Tingling, Change in Color, Inability to urinate, Inability to have a bowel movement, Shortness of breath, Dizziness, Fainting spells, Swellingin the ankles, Chest pain, Prolonged hiccupping, Increased palpitations (irregular heartbeat) and Calf discomfort When: IN 2 WEEKS Meaningful Use Info Meaningful Use Diagnoses (Choose all that apply): None applicable Discharge Plan Admission Admit Date/Time: 03/26/23 22:53 Primary Reason for Your Visit: Acute upper GI bleed Attending Provider: Syed Salazar Primary Care Provider: Davis May Consulting Providers: Bernadette Sharma; Roselia Santos; Bernadette Jernigan Instructions Additional Instructions / Restrictions: Follow-up with EDGAR FuentesF correspondence section supervisor in 1 month. Advised serum tacrolimus level, CBC and BMP in 1 week and follow with PCP. Discharge Orders/Prescriptions Prescriptions: New pantoprazole [Protonix] 40 mg tablet,delayed release (DR/EC) 40 mg PO BID Qty: 60 2RF Rx Instructions: advised TWICE DAILY FOR 2 months THEN ONCE DAILY Continued clonidine HCl 0.1 MG tablet 1.5 tab PO BID tacrolimus 1 MG capsule 1 mg PO BID amlodipine 5 mg tablet 5 mg PO DAILY probenecid 500 mg tablet 500 mg PO BID metoprolol succinate 100 mg tablet extended release 24 hr 100 mg PO Q12H Held mycophenolate mofetil [CellCept] 500 mg tablet 500 mg PO BID Hold Instructions: Hold for 7 days. Follow-up with Dr. Bear. Discontinued Metoprolol Succinate 100 mg PO BID omeprazole 20 MG capsule 20 mg PO BID Referrals / Follow Up: Davis May MD [Primary Care Provider] - Within 2 Weeks Disposition Disposition (needs filled in before D/C Order can be placed): Home, Self Care Charges/Coding Visit Charges Inpatient E&M: 74857 Disch Hosp >30min 03/29/23 1323 <Electronically signed by Syed Salazar MD> Cosigner Signature (if applicable): CC: Dr. Syed Salazar MD; Dr. Davis May MD~ Signed [facility] Work Phone: 1(707) 747-318401-08-2024 Discharge summary Author Syed Salazar [facility] March 29, 2023 1:08pm Note Date/Time March 29, 2023 12 :59pm [facility] Medical Records Department [address] [place] [address] Instructions for Home/Discharge Instructions 03/29/23 0905 MR#: [id number] Acct: [id number] Name: PARKER YI Rep #:[id number] : 1950 72 From: Syed Iniguez PCP: Dr. Davis May MD Status:ADM I N Discharge Instructions Diet Discharge Diet: Light diet - advance as tolerated (For 5 days) Activity Discharge Activity: Return to Normal Activity Weight Bearing Status: Weight bearing as tolerated Dressing / Incision Call your doctor if you observe: Fever of 101 or Higher, Coldness, Increased Pain, Numbness or Tingling, Change in Color, Inability to urinate, Inability to have a bowel movement, Shortness of breath, Dizziness, Fainting spells, Swellingin the ankles, Chest pain, Prolonged hiccupping, Increased palpitations (irregular heartbeat) and Calf discomfort Follow Up Care When: IN 2 WEEKS Test Results: Test results from this visit will be discussed in further detail at your follow- up appointment, if applicable. Discharge Plan Admission Admit Date/Time: 03/26/23 22:53 Attending Provider: Syed Salazar Primary Care Provider: Davis May Consulting Providers: Bernadette Sharma; Roselia Santos; Bernadette Jernigan Instructions Additional Instructions / Restrictions: Follow-up with Dr. Bear, [facility] correspondence section supervisor in 1 month. Discharge Orders/Prescriptions Prescriptions: New pantoprazole [Protonix] 40 mg tablet,delayed release (DR/EC) 40 mg PO BID Qty: 60 2RF Rx Instructions: advised TWICE DAILY FOR 2 months THEN ONCE DAILY Continued clonidine HCl 0.1 MG tablet 1.5 tab PO BID tacrolimus 1 MG capsule 1 mg PO BID amlodipine 5 mg tablet 5 mg PO DAILY probenecid 500 mg tablet 500 mg PO BID mycophenolate mofetil [CellCept] 500 mg tablet 500 mg PO BID metoprolol succinate 100 mg tablet extended release 24 hr 100 mg PO Q12H Discontinued Metoprolol Succinate 100 mg PO BID omeprazole 20 MG capsule 20 mg PO BID Referrals / Follow Up: Davis May MD [Primary Care Provider] - Within 2 Weeks Disposition Disposition (needs filled in before D/C Order can be placed): Home, Self Care 03/29/23 1308<Electronically signed by Syed Salazar MD>Syed Salazar MD CC: Dr. Bernadette Jernigan MD; Dr. Bernadette Sharma DO; Dr. Roselia Santos DO; Dr. Davis May MD ~ Signed [facility] Work Phone: 1(730) 740-202801-07-2024 Progress note Author Tommy Cornejo [facility] March 28, 2023 8:04pm Note Date/Time March 28, 2023 8: 04pm [facility] Medical Records Department [address] [place] [id number] Progress Note - GI 03/28/232000 MR#: [id number] Acct: [id number] Name: PARKER YI Rep #:[id number] : 1950 72 From: Tommy Cornejo DO PCP: Dr. Davis May MD Status:ADM I N Location: [place] [address] Subjective Subjective Patient denies any black stools, chest pain or shortness of breath. He is status post upper endoscopy with treatment of esophageal varices and has been onoctreotide, PPI drip and been getting ceftriaxone for massive upper GI bleed dueto esophageal variceal bleed. Patient has been tolerating liquid diet without any problems. He states that he wants to leave but he knows how sick he is at this time. Objective Data Objective Data Vital Signs: Vital Signs Temp Pulse Resp BP Pulse Ox O2 Del Method 98.3 F 63 18 145/78 H 95 Room Air 03/28/23 15:20 03/28/23 17:32 03/28/23 15:20 03/28/23 17:32 03/28/23 15:20 03/28/23 19:45 Oxygen Delivery Method Room Air Weight: 174 lb 2.643 oz Body Mass Index (BMI) 23.6 Intake & Output: Intake and Output for Last 24 Hours 03/26/23 03/27/23 03/28/23 23:59 23:59 23:59 Intake Total 1035 / 1035 2219.50 / 2219.50 1894.25 / 1894.25 Output Total Balance 1035 / 1035 2219.50 / 2218.50 1893.25 / 1893.25 Lab / Micro Data 03/28/23 17:30 03/28/23 05:08 Labs: Laboratory Results - last 24 hr 03/27/23 22:28: Hgb 9.4 L 03/28/23 05:08: WBC 3.9 L, RBC 2.93 L, Hgb 9.2 L, Hct 27.6 L, MCV 94.2 H, MCH 31.4, MCHC 33.3, RDW Std Deviation 47.9 H, RDW Coeff of Donna 14.0, Plt Count 46 L*, MPV 13.9 H, Immature Gran % (Auto) 0.300, Neut % (Auto) 63.7, Lymph % (Auto)24.7, [place] % (Auto) 8.5, Eos % (Auto) 2.3, Baso % (Auto) 0.5, Absolute Neuts (auto) 2.5, Absolute Lymphs (auto) 0.96, Nucleated RBC % 0, Differential CommentSCANNED, Diff Path Review July, Platelet Estimate MKD DEC, Sodium 141, Potassium 4.1, Chloride 112 H, Carbon Dioxide 24.0, Anion Gap 5, BUN 32 H, Creatinine 1.37 H, Estim Creat Clear Calc 51.92, Est GFR (MDRD) Af Amer 65, Est GFR (MDRD) Non-Af 54 L, BUN/Creatinine Ratio 23.4 H, Glucose 137 H, Calcium 8.2 L 03/28/23 13:44: Hgb 8.5 L 03/28/23 17:30: Hgb 9.0 L Micro: Microbiology 03/26/23 22:19 Stool Stool Lactoferrin - Final 03/26/23 22:19 Stool Enteric Bacteriology - Final Physical Exam Const alert, oriented x3, no apparent distress, average body habitus and healthy appearing General Appearance: cooperative HEENT normocephalic, head/scalp atraumatic, hearing grossly normal bilaterally and moist oral mucous membranes Eyes PERRL and EOMs intact bilaterally Neck no lymphadenopathy and supple Resp normal respiratory effort, no retractions, no use of accessory muscles and clearto auscultation bilaterally Cardio regular rate and regular rhythm GI normal to inspection, nondistended, normoactive bowel sounds, soft to palpation,non-tender and non-distended Extremity normal to inspection and full ROM Skin Skin Narrative: Patient has no evidence of rash at this time. Neuro oriented x3, CN's II-XII intact bilaterally, moves all extremities and no focal motor deficits Sensorium / Orientation: awake, alert, oriented to person, oriented to place andoriented to time Speech: speech normal Motor Exam: strength 5/5 throughout Psych affect normal Assessment & Plan Assessment/Plan (1) Acute upper gastrointestinal bleeding: (2) History of immunosuppression therapy: (3) Diarrhea: QUALIFIERS: Diarrhea type: unspecified type Qualified Code(s): R19.7 - Diarrhea, unspecified (4) Anemia: QUALIFIERS: Anemia type: unspecified type Qualified Code(s): D64.9 - Anemia, unspecified (5) Elevated serum creatinine: (6) Esophageal varices: QUALIFIERS: Esophageal varices type: idiopathic Esophageal varices bleeding: with bleeding Qualified Code(s): I85.01 - Esophageal varices with bleeding PLAN: Plan 72-year-old gentleman with type I autoimmune hepatitis on immunosuppression presents with upper GI bleed that is been going on for about a week. Upper GI bleed secondary to grade 2 esophageal varix bleeding -EGD was performed on 04/16/2023 and found grade 2 esophageal varices that were able to be completely eradicated with extensive banding and Hemospray, no gross lesions were found in the stomach or the duodenum -Continue Protonix drip for another 24 hours -Continue octreotide drip for another 24 hours -Continue IV fluids - clear liquid diet -Monitor hemoglobin serially -Hemoglobin now has been stable in the low nines -Continue ceftriaxone 1 g daily for SBP prophylaxis in the setting of cirrhosis Chronic thrombocytopenia -Baseline platelet count appears to run between 70,000 and 90,000 -Count has dropped to 46,000 today -No obvious signs of bleeding so no platelet transfusion currently -Repeat CBC in a.m. History of autoimmune hepatitis -Continue home medication for immunosuppression once able to restart p.o. medication -Ongoing outpatient follow-up after discharge with correspondence section supervisor Charges/Coding Visit Charges Inpatient E&M: 10339 Subs Hosp L3 03/28/232003 <Electronically signed by Tommy Friend > Cosigner Signature (if applicable): CC: ~ Signed [facility] Work Phone: 1(570) 274-353101-07-2024 Progress note Author Roselia Santos [facility] March 28, 2023 1:34pm Note Date/Time March 28, 2023 1: 34pm [facility] Medical Records Department [address] [place] [address] Progress Note - Hospitalist 03/28/23 1325 MR#: [id number] Acct: [id number] Name: PARKER YI Rep #:[id number] : 1950 72 From: Roselia Santos DO PCP: Dr. Davis May MD Status:ADM I N Location: [place] [address] Reason for Visit Reason for Visit: Black bowel movements Subjective Subjective No issues overnight. Patient denies any abdominal pain. Hemoglobin appears to be stable however his platelet count did drop significantly. Upon my arrival hewas stating he hopes I have good news for him but unfortunately we are highly recommending he stay due to the severity of bleeding found on his EGD and the amount of bands it took to stop the 1 varices from bleeding. I discussed with him that one of his varices took 5 bands to get the bleeding to stop and this area is very fragile so if we advance his diet too quickly or stop his medications too soon he is at high risk for repeat bleeding. He, of course, wasvery disappointed because we could not discharge him today but was understanding. I have ordered a clear liquid diet but he has not tried anythingof substance yet with regards to this diet. Thus far he is only had some sips and chips and some soda. Objective Data Objective Data Vital Signs: Vital Signs Temp Pulse Resp BP Pulse Ox O2 Del Method 97.9 F 67 18 140/74 H 94 Room Air 03/28/23 10:00 03/28/23 12:13 03/28/23 10:00 03/28/23 12:13 03/28/23 10:00 03/28/23 10:00 Oxygen Delivery Method Room Air Weight: 79 kg Body Mass Index (BMI) 23.6 Intake & Output: Intake and Output for Last 24 Hours 03/26/23 03/27/23 03/28/23 23:59 23:59 23:59 Intake Total 1035 / 1035 2219.50 / 2219.50 1534.25 / 1534.25 Output Total 0 Balance 1035 / 1035 2219.50 / 2218.50 1533.25 / 1533.25 Lab / Micro Data 03/28/23 05:08 03/28/23 05:08 Labs: Laboratory Results - last 24 hr 03/27/23 17:32: Hgb 10.4 L 03/27/23 22:28: Hgb 9.4 L 03/28/23 05:08: WBC 3.9 L, RBC 2.93 L, Hgb 9.2 L, Hct 27.6 L, MCV 94.2 H, MCH 31.4, MCHC 33.3, RDW Std Deviation 47.9 H, RDW Coeff of Donna 14.0, Plt Count 46 L*, MPV 13.9 H, Immature Gran % (Auto) 0.300, Neut % (Auto) 63.7, Lymph % (Auto)24.7, [place] % (Auto) 8.5, Eos % (Auto) 2.3, Baso % (Auto) 0.5, Absolute Neuts (auto) 2.5, Absolute Lymphs (auto) 0.96, Nucleated RBC % 0, Differential CommentSCANNED, Diff Path Review July, Platelet Estimate MKD DEC, Sodium 141, Potassium 4.1, Chloride 112 H, Carbon Dioxide 24.0, Anion Gap 5, BUN 32 H, Creatinine 1.37 H, Estim Creat Clear Calc 51.92, Est GFR (MDRD) Af Amer 65, Est GFR (MDRD) Non-Af 54 L, BUN/Creatinine Ratio 23.4 H, Glucose 137 H, Calcium 8.2 L Micro: Microbiology 03/26/23 22:19 Stool Stool Lactoferrin - Final 03/26/23 22:19 Stool Enteric Bacteriology - Final Physical Exam Const alert, oriented x3, no apparent distress, average body habitus, healthy appearing and well nourished Constitutional Narrative: Very pleasant, older, white male, sitting up in bed, patient appears comfortableand nontoxic General Appearance: cooperative HEENT normocephalic, head/scalp atraumatic, hearing grossly normal bilaterally and moist oral mucous membranes Resp normal respiratory effort, no retractions, no use of accessory muscles and clearto auscultation bilaterally Auscultation: Negative for rales, rhonchi or wheezes Cardio regular rate, regular rhythm, S1 normal heart sound, S2 normal heart sound, no murmurs, no rub, no gallops and no clicks GI normal to inspection, nondistended, normoactive bowel sounds, soft to palpation and non-tender GI Narrative: Tenderness present yesterday has resolved Extremity normal to inspection, full ROM and no clubbing, cyanosis or edema Extremity Narrative: Pedal pulses are 2+ Neuro oriented x3, moves all extremities and no focal motor deficits Speech: speech normal Psych affect normal Psych Narrative: Very pleasant, eye contact is good, patient interacts appropriately Assessment & Plan Assessment/Plan (1) Acute upper gastrointestinal bleeding: (2) History of immunosuppression therapy: (3) Diarrhea: QUALIFIERS: Diarrhea type: unspecified type Qualified Code(s): R19.7 - Diarrhea, unspecified (4) Anemia: QUALIFIERS: Anemia type: unspecified type Qualified Code(s): D64.9 - Anemia, unspecified (5) Elevated serum creatinine: (6) Esophageal varices: PLAN: Plan Upper GI bleed secondary to grade 2 esophageal varix bleeding -EGD was performed on 04/16/2023 and found grade 2 esophageal varices that were able to be completely eradicated with extensive banding and Hemospray, no gross lesions were found in the stomach or the duodenum -Continue Protonix drip for another 24 hours -Continue octreotide drip for another 24 hours -Continue IV fluids -Okay to start clear liquid diet -Monitor hemoglobin serially -Hemoglobin now has been stable in the [facility] -Continue ceftriaxone 1 g daily for SBP prophylaxis in the setting of cirrhosis -GI following-would discuss with them before advancing diet Acute blood loss anemia secondary to the above -Hemoglobin stable in the [facility] region currently -Transfuse for precipitous drop or hemoglobin less than 7 -Treatment for bleeding as above -No current sign of active bleeding Chronic thrombocytopenia -Baseline platelet count appears to run between 70,000 and 90,000 -Count has dropped to 46,000 today -No obvious signs of bleeding so no platelet transfusion currently -Repeat CBC in a.m. Elevated serum creatinine -Creatinine has been fluctuating -Continue IV fluids while n.p.o./on clear liquid diet -May have some baseline CKD however I do not have enough data to tell at this time what his baseline serum creatinine runs History of autoimmune hepatitis -Has had multiple images and EGDs -Has never been told he has varices -Continue home medication for immunosuppression once able to restart p.o. medication -Ongoing outpatient follow-up after discharge with correspondence section supervisor History of gout -Restart home probenecid once able to start p.o. medication Hypertension -IV metoprolol 5 every 6 with hold parameters in place -Continue to hold home oral medications -As needed hydralazine is available History of arthritis -Patient denies ever using NSAIDs -As needed Tylenol if needed DVT prophylaxis -SCDs -Chemoprophylaxis contraindicated due to GI bleeding CODE STATUS -Full code Charges/Coding Visit Charges Inpatient E&M: 12101 Subs Hosp L2 03/28/23 1334 <Electronically signed by Roselia Santos DO> Cosigner Signature (if applicable): CC: ~ Signed [facility] Work Phone: 1(562) 505-631001-06-2024 Progress note Author Roselia Santos [facility] March 27, 2023 2:20pm Note Date/Time March 27, 2023 10 :26am [facility] Medical Records Department [address] [place] [address] Progress Note - Hospitalist 03/27/23 1016 MR#: [id number] Acct: [id number] Name: PARKER YI Rep #:[id number] : 1950 72 From: Roselia Santos DO PCP: Dr. Davis May MD Status:ADM I N Location: [place] [address] Reason for Visit Reason for Visit: Black bowel movements Subjective Subjective Mr. Yi is a 72-year-old white male who presented to the emergency department at [facility] on 03/26/2023 reporting he had multiple black bowel movements on the morning of admission. He indicated his stomach had just not felt right in the upper abdomen for a few days and he had not been able to eat. Upon presentation he denied any significant abdominal pain at the time. He had peptic ulcer disease when he was very young but has not had any issues since. He has had multiple endoscopies and 2 CT scans recently. He was diagnosed with autoimmune hepatitis and he sees a physician regularly for this and has a scan every 6 months. He is on multiple medications for immunosuppression for this but is not on any PPI. While he was in the emergency department he did have a coffee-ground emesis. Despite his multiple scopes in the past he is never been told he has varices related to his autoimmune hepatitis. He stopped taking his prescribed PPI a few weeks ago as he stated he did not think he needed it. His BUN/creatinine ratio was elevated with a BUN of 58 and a creatinine of 1.37. GI bleed is suspected to be upper. He was admitted the PCU and made n.p.o., placed on a Protonix drip and stool studies were assessed with his loose stool. GI has been consulted and plan is for EGD today. Patient states he is feeling okay today. Denies any current abdominal pain. Does not take any NSAIDs ever. He is anxious to get his endoscopy done as he issupposed to leave for vacation on Wednesday. Objective Data Objective Data Vital Signs: Vital Signs Temp Pulse Resp BP Pulse Ox O2 Del Method 98.5 F 80 17 114/78 96 Room Air 03/27/23 05:35 03/27/23 05:35 03/27/23 05:35 03/27/23 05:35 03/27/23 08:23 03/27/23 08:50 Oxygen Delivery Method Room Air Weight: 80.2 kg Body Mass Index (BMI) 24.0 Intake & Output: Intake and Output for Last 24 Hours 03/25/23 03/26/23 03/27/23 23:59 23:59 23:59 Intake Total 1035 / 1035 1062.66 / 1062.66 Balance 1035 / 1035 1062.66 / 1062.66 Lab / Micro Data 03/27/23 10:43 03/27/23 06:20 Labs: Laboratory Results - last 24 hr 03/26/23 19:50: WBC 9.9, RBC 3.80 L, Hgb 11.9 L, Hct 36.0 L, MCV 94.7 H, MCH 31.3, MCHC 33.1, RDW Std Deviation 46.8 H, RDW Coeff of Donna 13.6, Plt Count 86 L, MPV 13.4 H, Immature Gran % (Auto) 0.400, Neut % (Auto) 73.9 H, Lymph % (Auto)16.9 L, [place] % (Auto) 7.6, Eos % (Auto) 0.9, Baso % (Auto) 0.3, Absolute Neuts (auto) 7.3, Absolute Lymphs (auto) 1.67, Nucleated RBC % 0, Sodium 138, Potassium 4.2, Chloride 106, Carbon Dioxide 27.0, Anion Gap 5, BUN 58 H, Creatinine 1.37 H, Estim Creat Clear Calc 51.92, Est GFR (MDRD) Af Amer 65, Est GFR (MDRD) Non-Af 54 L, BUN/Creatinine Ratio 42.3 H, Glucose 224 H, Calcium 9.1,Total Bilirubin 1.10 H, AST 62 H, ALT 65 H, Alkaline Phosphatase 194 H, Total Protein 7.2, Albumin 3.1 L, Globulin 4.1, Albumin/Globulin Ratio 0.8 L 03/26/23 21:21: Urine Color Yellow, Urine Clarity Clear, Urine pH 6.0, Ur Specific [place] 1.015, Urine Protein 100 H, Urine Glucose (UA) 100 H, Urine Ketones 5 H, Urine Occult Blood Negative, Urine Nitrite Negative, Urine Bilirubin Negative, Urine Urobilinogen Normal, Ur Leukocyte Esterase Negative, Urine RBC 0 SEEN, Urine WBC 0 SEEN, Ur Squamous Epith Cells 0 SEEN, Urine Bacteria 0 SEEN, Urine Mucus 0 SEEN 03/27/23 00:07: Blood Type O POSITIVE, Antibody Screen NEGATIVE 03/27/23 06:20: WBC 5.7, RBC 3.10 L, Hgb 9.8 L, Hct 29.2 L, MCV 94.2 H, MCH 31.6, MCHC 33.6, RDW Std Deviation 47.4 H, RDW Coeff of Donna 13.8, Plt Count 61 L,MPV 13.9 H, Immature Gran % (Auto) 0.200, Neut % (Auto) 65.7, Lymph % (Auto) 24.3, [place] % (Auto) 8.5, Eos % (Auto) 1.1, Baso % (Auto) 0.2, Absolute Neuts (auto) 3.7, Absolute Lymphs (auto) 1.38, Nucleated RBC % 0, PT 17.2 H, INR 1.4, Sodium 142, Potassium 3.7, Chloride 114 H, Carbon Dioxide 22.0, Anion Gap 6, BUN52 H, Creatinine 1.20, Estim Creat Clear Calc 59.28, Est GFR (MDRD) Af Amer 76, Est GFR (MDRD) Non-Af 63, BUN/Creatinine Ratio 43.3 H, Glucose 157 H, Calcium 8.2 L, Phosphorus 2.5, Magnesium 1.5 L, Total Bilirubin 0.80, AST 52 H, ALT 51, Alkaline Phosphatase 155 H, Total Protein 6.3 L, Albumin 2.8 L, Globulin 3.5, Albumin/Globulin Ratio 0.8 L, TSH 0.59 Micro: Microbiology 03/26/23 22:19 Stool Stool Lactoferrin - Final 03/26/23 22:19 Stool Enteric Bacteriology - Final Physical Exam Const alert, oriented x3, no apparent distress, average body habitus, healthy appearing and well nourished Constitutional Narrative: Very pleasant, older, white male, sitting up in bed, at bedside, patient appears comfortable and nontoxic HEENT head/scalp atraumatic, moist oral mucous membranes and oropharynx normal HEENT Narrative: Mallampati 2, no thrush Head and Scalp: normocephalic Resp normal respiratory effort, no retractions, no use of accessory muscles and clearto auscultation bilaterally Auscultation: Negative for rales, rhonchi or wheezes Cardio regular rate, regular rhythm, S1 normal heart sound, S2 normal heart sound, no murmurs, no rub, no gallops and no clicks GI normal to inspection, nondistended, normoactive bowel sounds and soft to palpation GI Narrative: Very minimal tenderness in the epigastric/slight left upper quadrant area Extremity no clubbing, cyanosis or edema Extremity Narrative: Pedal pulses are 2+ Neuro oriented x3, moves all extremities and no focal motor deficits Speech: speech normal Psych affect normal Psych Narrative: Very pleasant, eye contact is good, patient interacts appropriately Assessment & Plan Assessment/Plan (1) Acute upper gastrointestinal bleeding: (2) History of immunosuppression therapy: (3) Diarrhea: QUALIFIERS: Diarrhea type: unspecified type Qualified Code(s): R19.7 - Diarrhea, unspecified (4) Anemia: QUALIFIERS: Anemia type: unspecified type Qualified Code(s): D64.9 - Anemia, unspecified PLAN: Plan Suspected upper GI bleed -Elevated BUN and creatinine ratio -Continue Protonix drip -Continue IV fluids -Continue n.p.o. status -Monitor hemoglobin serially -Since admission hemoglobin has dropped from 10.9-9.8 -Unclear if patient has cirrhosis or not but with GI bleed will continue ceftriaxone 1 g daily -GI is consulted-discussed case with Dr. Cornejo and plan is for EGD later today Acute blood loss anemia secondary to the above -Check every 6 hour hemoglobin -Transfuse for precipitous drop or hemoglobin less than 7 -Treatment for bleeding as above History of autoimmune hepatitis -Has had multiple images and EGDs -Has never been told he has varices -Continue home medication for immunosuppression -Ongoing outpatient follow-up after discharge with correspondence section supervisor History of gout -Restart home probenecid Hypertension -Blood pressures are a bit soft right now -Will hold home antihypertensives -As needed hydralazine is available History of arthritis -Patient denies ever using NSAIDs -As needed Tylenol if needed DVT prophylaxis -SCDs -Chemoprophylaxis contraindicated due to GI bleeding CODE STATUS -Full code Charges/Coding Visit Charges Inpatient E&M: 26718 Subs Hosp L2 03/27/23 1420 <Electronically signed by Roselia Santos DO> Cosigner Signature (if applicable): CC: ~ Signed [facility] Work Phone: 1(734) 817-657301-06-2024 Consult note Author Tommy Cornejo [facility] March 27, 2023 1:45pm Note Date/Time March 27, 2023 1: 42pm [facility] Medical Records Department [address] [place] [id number] Consultation - GI 03/26/23 2300 MR#: [id number] Acct: [id number] Name: PARKER YI Rep #:[id number] : 1950 72 From: Tommy Cornejo DO PCP: Dr. Davis May MD Status:ADM I N Location: [place] [address] HPI Consult Data Date of Consult: 03/26/23 HPI Narrative Reason for Consultation: GI bleed HPI Narrative: PARKER YI, is a 72 M who presents after he had multiple black bowel movements starting this morning. He states his stomach just has not felt right in the upper abdomen for few days and he has not been eating. He is not really having abdominal pain now though. He had a ulcer when he was very young but never since. He has had multiple endoscopies. He has had 2 CT scans recently. 1 as part of regular every 6-month scan in 1 because he started some new protocol for his autoimmune hepatitis. He is on multiple meds including azathioprine and tacrolimus for this. He is not on anything for such as a PPI. While he was here, he threw up once and he threw up black material. No bright red on either end. No fever. He has a past medical history of essential hypertension, GERD, remote history ofpeptic ulcer disease with bleeding as a teenager, osteoarthritis and autoimmune hepatitis; on tacrolimus and azathioprine followed by the [facility] who presents to [facility] ER complaining of black stools and coffee-ground emesis. Mr. Yi reports his symptoms began earlier this morningwith his stomach not feeling right all day and discomfort in his upper abdomen for a few days with decreased appetite. He then vomited up coffee-ground material and was also noted to have tarry black stools consistent with suspected upper GI bleed. He states he has had multiple endoscopies in the past and has never been diagnosed with varices. He denies currently taking a PPI because he decided he did not think he needed it afew weeks ago. He also denies associated fever, chills or constipation. In theER he was diagnosed with suspected upper GI bleed due to recurrent peptic ulcer disease with a BUN of 58 mg/dL and a creatinine of 1.37 mg/dL present on admission in the setting of known autoimmune hepatitis. [facility] Home Medications Metoprolol Succinate 100 mg PO BID heart rate 08/20/19 [History Last Taken Unknown] clonidine HCl 0.1 mg tablet 1.5 tab PO BID 08/20/19 [History Last Taken Unknown] omeprazole 20 mg capsule,delayed release 20 mg PO BID gerd 08/20/19 [History Last Taken Unknown] tacrolimus 1 mg capsule, immediate-release 1 mg PO BID supplement 08/20/19 [History Last Taken Unknown] amlodipine 5 mg tablet 5 mg PO DAILY blood pressure 03/27/23 [History Last Taken Unknown] metoprolol succinate 100 mg tablet,extended release 24 hr 100 mg PO Q12H heart 03/27/23 [History Last Taken Unknown] mycophenolate mofetil 500 mg tablet (CellCept) 500 mg PO BID organ rejection 03/27/23 [History Last Taken Unknown] probenecid 500 mg tablet 500 mg PO BID gout 03/27/23 [History Last Taken Unknown] Allergy/AdvReac Type Severity Reaction Status Date / Time acetaminophen [From Vicodin] Allergy Anaphylaxis Verified 03/26/23 18:42 hydrocodone [From Vicodin] Allergy Anaphylaxis Verified 03/26/23 18:42 Social History Smoking Status: Former smoker ROS ROS Narrative Review of systems: Constitutional: Patient denies fever or chills. ENT: Patient denies runny nose, sore throat or ear pain. Eyes: Patient denies visual changes or discharge from eyes. Cardiovascular: Patient denies chest pain or palpitations. Respiratory: Patient denies shortness of breath or cough. Gastrointestinal patient admits to dark tarry stools with diarrhea type consistency along with coffee-ground emesis as per HPI. Musculoskeletal: Patient denies arthralgias or myalgias. Integumentary patient denies rash or abscess. Neurologic: Patient denies headache, paresthesias or focal neurologic deficits. Endocrine: Patient denies polyuria, polydipsia or polyphagia. Hematologic: Patient denies easy bleeding or easy bruisability. Allergic: Patient denies lip swelling, tongue swelling or urticaria. 14 point review of systems otherwise negative except for positives noted above in HPI. Physical Exam Const alert, oriented x3, no apparent distress, average body habitus and healthy appearing General Appearance: cooperative HEENT normocephalic, head/scalp atraumatic, hearing grossly normal bilaterally and moist oral mucous membranes Eyes PERRL and EOMs intact bilaterally Neck no lymphadenopathy and supple Resp normal respiratory effort, no retractions, no use of accessory muscles and clearto auscultation bilaterally Cardio regular rate and regular rhythm GI normal to inspection, nondistended, normoactive bowel sounds, soft to palpation,non-tender and non-distended Extremity normal to inspection and full ROM Skin Skin Narrative: Patient has no evidence of rash at this time. Neuro oriented x3, CN's II-XII intact bilaterally, moves all extremities and no focal motor deficits Sensorium / Orientation: awake, alert, oriented to person, oriented to place andoriented to time Speech: speech normal Motor Exam: strength 5/5 throughout Psych affect normal Lab / Micro Data 03/27/23 10:43 03/27/23 06:20 Labs: Laboratory Results - last 24 hr 03/26/23 19:50: WBC 9.9, RBC 3.80 L, Hgb 11.9 L, Hct 36.0 L, MCV 94.7 H, MCH 31.3, MCHC 33.1, RDW Std Deviation 46.8 H, RDW Coeff of Donna 13.6, Plt Count 86 L, MPV 13.4 H, Immature Gran % (Auto) 0.400, Neut % (Auto) 73.9 H, Lymph % (Auto)16.9 L, [place] % (Auto) 7.6, Eos % (Auto) 0.9, Baso % (Auto) 0.3, Absolute Neuts (auto) 7.3, Absolute Lymphs (auto) 1.67, Nucleated RBC % 0, Sodium 138, Potassium 4.2, Chloride 106, Carbon Dioxide 27.0, Anion Gap 5, BUN 58 H, Creatinine 1.37 H, Estim Creat Clear Calc 51.92, Est GFR (MDRD) Af Amer 65, Est GFR (MDRD) Non-Af 54 L, BUN/Creatinine Ratio 42.3 H, Glucose 224 H, Calcium 9.1,Total Bilirubin 1.10 H, AST 62 H, ALT 65 H, Alkaline Phosphatase 194 H, Total Protein 7.2, Albumin 3.1 L, Globulin 4.1, Albumin/Globulin Ratio 0.8 L 03/26/23 21:21: Urine Color Yellow, Urine Clarity Clear, Urine pH 6.0, Ur Specific [place] 1.015, Urine Protein 100 H, Urine Glucose (UA) 100 H, Urine Ketones 5 H, Urine Occult Blood Negative, Urine Nitrite Negative, Urine Bilirubin Negative, Urine Urobilinogen Normal, Ur Leukocyte Esterase Negative, Urine RBC 0 SEEN, Urine WBC 0 SEEN, Ur Squamous Epith Cells 0 SEEN, Urine Bacteria 0 SEEN, Urine Mucus 0 SEEN 03/27/23 00:07: Blood Type O POSITIVE, Antibody Screen NEGATIVE 03/27/23 06:20: WBC 5.7, RBC 3.10 L, Hgb 9.8 L, Hct 29.2 L, MCV 94.2 H, MCH 31.6, MCHC 33.6, RDW Std Deviation 47.4 H, RDW Coeff of Donna 13.8, Plt Count 61 L, MPV 13.9 H, Immature Gran % (Auto) 0.200, Neut % (Auto) 65.7, Lymph % (Auto) 24.3, [place] % (Auto) 8.5, Eos % (Auto) 1.1, Baso % (Auto) 0.2, Absolute Neuts (auto) 3.7, Absolute Lymphs (auto) 1.38, Nucleated RBC % 0, PT 17.2 H, INR 1.4, Sodium 142, Potassium 3.7, Chloride 114 H, Carbon Dioxide 22.0, Anion Gap 6, BUN52 H, Creatinine 1.20, Estim Creat Clear Calc 59.28, Est GFR (MDRD) Af Amer 76, Est GFR (MDRD) Non-Af 63, BUN/Creatinine Ratio 43.3 H, Glucose 157 H, Calcium 8.2 L, Phosphorus 2.5, Magnesium 1.5 L, Total Bilirubin 0.80, AST 52 H, ALT 51, Alkaline Phosphatase 155 H, Total Protein 6.3 L, Albumin 2.8 L, Globulin 3.5, Albumin/Globulin Ratio 0.8 L, TSH 0.59 03/27/23 10:43: Hgb 10.7 L Micro: Microbiology 03/26/23 22:19 Stool Stool Lactoferrin - Final 03/26/23 22:19 Stool Enteric Bacteriology - Final Assessment & Plan Assessment/Plan (1) Acute upper gastrointestinal bleeding: (2) Thrombocytopenia: (3) Anemia: QUALIFIERS: Anemia type: unspecified type Qualified Code(s): D64.9 - Anemia, unspecified (4) Autoimmune hepatitis: (5) Diarrhea: QUALIFIERS: Diarrhea type: unspecified type Qualified Code(s): R19.7 - Diarrhea, unspecified PLAN: Plan 72-year-old gentleman with complicated past medical history of autoimmune hepatitis on 4 immunosuppressive's and budesonide comes in with an upper GI bleed. Upper GI bleed likely due to peptic ulcer disease that is recurrent evidenced by a BUN of 58 mg/dL and a serum creatinine of 1.37 mg/dL present on admission in the setting of chronic GERD with patient now on PPI and remote history of GI bleed due to peptic ulcer disease He will need to undergo an upper endoscopy. He was explained alternatives, risk, benefits including not withstanding bleeding, infection, sepsis, perforation, need for emergent and . Have an ASA of 3. Remote history of peptic ulcer disease with bleeding as a teenager with patient deciding to stop his PPI a few weeks ago precipitating #1 - Patient was encouraged to speak with one of his doctors before stopping any medications. Autoimmune hepatitis; on tacrolimus, mycophenolate , budesonide [facility] Charges/Coding Visit Charges Inpatient E&M: 27625 Init Hosp L3 03/27/23 1345 <Electronically signed by Tommy Cornejo DO> Cosigner Signature (if applicable): CC: Dr. Bernadette Sharma DO; Dr. Davis May MD~ Signed [facility] Work Phone: 1(736) 630-556401-06-2024 Procedure [facility] 03-27-2023 Procedure [facility]01-06-2024 History and physical note Author Bernadette Hernandez [facility] March 27, 2023 7:27am Note Date/Time March 26, 2023 10 :53pm [facility] Medical Records Department [address] [place] [address] H&P Exam - Hospitalist 03/26/23 2243 MR#: [id number] Acct: [id number] Name: PARKER YI Rep #:[id number] : 1950 72 From: Bernadette Salas DO PCP: Dr. Davis May MD Status:ADM I N Location: [place] [address] HPI - General General Date of Admission: 03/26/23 Date of Service: 03/26/23 Chief Complaint: Black stools and coffee-ground emesis HPI Narrative PARKER YI, is a 72 M with a past medical history of essential hypertension, GERD, remote history of peptic ulcer disease with bleeding as a teenager, osteoarthritis and autoimmune hepatitis; on tacrolimus and [facility]ioprine [facility] who presents to [facility] ER complaining of black stools and coffee-ground emesis. Mr. Yi reports his symptoms began earlier this morning with his stomach not feeling right all day and discomfort in his upper abdomen for a few days with decreased appetite. He then vomited up coffee-ground material and was also noted to have tarry black stools consistent with suspected upper GI bleed. He states he has had multiple endoscopies in the past and has never been diagnosed with varices. He denies currently taking a PPI because he decided he did not think he needed it a few weeks ago. He also denies associated fever, chills or constipation. In the ER he was diagnosed with suspected upper GI bleed due to recurrent peptic ulcer disease with a BUN of 58 mg/dL and a creatinine of 1.37 mg/dL present on admission in the setting of known autoimmune hepatitis and he was then admitted to thePCU for ongoing care for stay that expected to be greater than 48 hours. [facility] Home Medications Metoprolol Succinate 100 mg PO BID heart rate 08/20/19 [History Last Taken Unknown] clonidine HCl 0.1 mg tablet 1.5 tab PO BID 08/20/19 [History Last Taken Unknown] omeprazole 20 mg capsule,delayed release 20 mg PO BID gerd 08/20/19 [History Last Taken Unknown] tacrolimus 1 mg capsule, immediate-release 1 mg PO BID supplement 08/20/19 [History Last Taken Unknown] amlodipine 5 mg tablet 5 mg PO DAILY blood pressure 03/27/23 [History Last Taken Unknown] mycophenolate mofetil 500 mg tablet (CellCept) 500 mg PO BID organ rejection 03/27/23 [History Last Taken Unknown] probenecid 500 mg tablet 500 mg PO BID gout 03/27/23 [History Last Taken Unknown] Allergy/AdvReac Type Severity Reaction Status Date / Time acetaminophen [From Vicodin] Allergy Anaphylaxis Verified 03/26/23 18:42 hydrocodone [From Vicodin] Allergy Anaphylaxis Verified 03/26/23 18:42 Social History Smoking Status: Former smoker ROS ROS Narrative Review of systems: Constitutional: Patient denies fever or chills. ENT: Patient denies runny nose, sore throat or ear pain. Eyes: Patient denies visual changes or discharge from eyes. Cardiovascular: Patient denies chest pain or palpitations. Respiratory: Patient denies shortness of breath or cough. Gastrointestinal patient admits to dark tarry stools with diarrhea type consistency along with coffee-ground emesis as per HPI. Musculoskeletal: Patient denies arthralgias or myalgias. Integumentary patient denies rash or abscess. Neurologic: Patient denies headache, paresthesias or focal neurologic deficits. Endocrine: Patient denies polyuria, polydipsia or polyphagia. Hematologic: Patient denies easy bleeding or easy bruisability. Allergic: Patient denies lip swelling, tongue swelling or urticaria. 14 point review of systems otherwise negative except for positives noted above in HPI. Vital Signs Vital Signs Vital Signs: 03/26/23 18:42 03/26/23 19:55 03/26/23 20:31 Temperature 97.2 F L Temperature Source Temporal Pulse Rate 76 74 79 Respiratory Rate 16 18 Blood Pressure 149/98 H 156/78 H 149/89 H Blood Pressure Mean 115 104 109 Pulse Ox 98 97 Oxygen Delivery Method Room Air Room Air Weight Weight: 184 lb 8.43 oz Body Mass Index (BMI) 25.0 Physical Exam Const alert, oriented x3, no apparent distress, average body habitus and healthy appearing General Appearance: cooperative HEENT normocephalic, head/scalp atraumatic, hearing grossly normal bilaterally and moist oral mucous membranes Eyes PERRL and EOMs intact bilaterally Neck no lymphadenopathy and supple Resp normal respiratory effort, no retractions, no use of accessory muscles and clearto auscultation bilaterally Cardio regular rate and regular rhythm GI normal to inspection, nondistended, normoactive bowel sounds, soft to palpation,non-tender and non-distended Extremity normal to inspection and full ROM Skin Skin Narrative: Patient has no evidence of rash at this time. Neuro oriented x3, CN's II-XII intact bilaterally, moves all extremities and no focal motor deficits Sensorium / Orientation: awake, alert, oriented to person, oriented to place andoriented to time Speech: speech normal Motor Exam: strength 5/5 throughout Psych affect normal Results Medical Records Data Attestation: I reviewed the patient's medical records Lab / Micro Data Attestation: I reviewed the patient's lab results. 03/26/23 19:50 03/26/23 19:50 Labs: Laboratory Results - last 24 hr 03/26/23 19:50: WBC 9.9, RBC 3.80 L, Hgb 11.9 L, Hct 36.0 L, MCV 94.7 H, MCH 31.3, MCHC 33.1, RDW Std Deviation 46.8 H, RDW Coeff of Donna 13.6, Plt Count 86 L, MPV 13.4 H, Immature Gran % (Auto) 0.400, Neut % (Auto) 73.9 H, Lymph % (Auto)16.9 L, [place] % (Auto) 7.6, Eos % (Auto) 0.9, Baso % (Auto) 0.3, Absolute Neuts (auto) 7.3, Absolute Lymphs (auto) 1.67, Nucleated RBC % 0, Sodium 138, Potassium 4.2, Chloride 106, Carbon Dioxide 27.0, Anion Gap 5, BUN 58 H, Creatinine 1.37 H, Estim Creat Clear Calc 51.92, Est GFR (MDRD) Af Amer 65, Est GFR (MDRD) Non-Af 54 L, BUN/Creatinine Ratio 42.3 H, Glucose 224 H, Calcium 9.1,Total Bilirubin 1.10 H, AST 62 H, ALT 65 H, Alkaline Phosphatase 194 H, Total Protein 7.2, Albumin 3.1 L, Globulin 4.1, Albumin/Globulin Ratio 0.8 L 03/26/23 21:21: Urine Color Yellow, Urine Clarity Clear, Urine pH 6.0, Ur Specific [place] 1.015, Urine Protein 100 H, Urine Glucose (UA) 100 H, Urine Ketones 5 H, Urine Occult Blood Negative, Urine Nitrite Negative, Urine Bilirubin Negative, Urine Urobilinogen Normal, Ur Leukocyte Esterase Negative, Urine RBC 0 SEEN, Urine WBC 0 SEEN, Ur Squamous Epith Cells 0 SEEN, Urine Bacteria 0 SEEN, Urine Mucus 0 SEEN Assessment & Plan Assessment/Plan (1) Acute upper gastrointestinal bleeding: (2) Thrombocytopenia: (3) Anemia: QUALIFIERS: Anemia type: unspecified type Qualified Code(s): D64.9 - Anemia, unspecified (4) Autoimmune hepatitis: (5) Diarrhea: QUALIFIERS: Diarrhea type: unspecified type Qualified Code(s): R19.7 - Diarrhea, unspecified PLAN: Plan 1. Upper GI bleed likely due to peptic ulcer disease that is recurrent evidenced by a BUN of 58 mg/dL and a serum creatinine of 1.37 mg/dL present on admission in the setting of chronic GERD with patient now on PPI and remote history of GI bleed due to peptic ulcer disease as a teenager - Admit to PCU. Keep strict NPO and continue Protonix drip begun in the ER. Check stool studieswith reports of diarrhea. Finally, we will consult the psychology assistant on-call to see this patient on rounds in the a.m. for recommendations regarding EGDthis admission with help appreciated in advance. 2. Remote history of peptic ulcer disease with bleeding as a teenager with patient deciding to stop his PPI a few weeks ago precipitating #1 - Patient was encouraged to speak with one of his doctors before stopping any medications. 3. Autoimmune hepatitis; on tacrolimus and azathioprine followed by the [facility] complicating #1 & #2 - Noted. Restart oral medications once EGD is completed and patient is cleared to restart his diet by GI. 4. Essential hypertension - Hold scheduled antihypertensives and give IV hydralazine prn for systolic blood pressure > 160 mm Hg. 5. Osteoarthritis - Stable. 6. DVT prophylaxis - SCD's only due to the fact that chemoprophylaxis for DVT is contraindicated at this time for this patient with recent GI bleed. Total time: Approximately 55 minutes. Charges/Coding Visit Charges Inpatient E&M: 96969 Init Hosp L2 03/27/23 0727 <Electronically signed by Bernadette Sharma DO> Cosigner Signature (if applicable): CC: Dr. Bernadette Sharma DO; Dr. Davis May MD~ Signed [facility] Work Phone: 1([phone]) 110-232001-06-2024 Discharge summary Author Esteban Renee [facility] March 26, 2023 10:59pm Note Date/Time March 26, 2023 9: 13pm [facility] Medical Records Department [address] [place] [address] Emergency Department Summary 03/26/23 MR#: [id number] Acct: [id number] Name: PARKER YI Rep #:[id number] : 1950 72 From: Esteban Renee MD PCP: Dr. Davis May MD Status:ADM I N Location: [place] [address] HPI HPI - GI History of Present Illness Chief Complaint: GI Bleed Informant: patient and spouse/S.O. Narrative Narrative: Patient states he has had multiple black bowel movements starting this morning. He states his stomach just has not felt right in the upper abdomen for few days and he has not been eating. He is not really having abdominal pain now though. He had a ulcer when he was very young but never since. He has had multiple endoscopies. He has had 2 CT scans recently. 1 as part of regular every 6-month scan in 1 because he started some new protocol for his autoimmune hepatitis. He is on multiple meds including azathioprine and tacrolimus for this. He is not on anything for such as a PPI. While he was here, he threw up once and he threw up black material. No bright red on either end. No fever. PFSH PFSH Home Medications Metoprolol Succinate 150 mg PO BID 08/20/19 [History Last Taken Unknown] azathioprine 50 mg tablet 100 mg PO DAILY 08/20/19 [History Last Taken Unknown] budesonide 3 mg capsule,delayed,extended release 3 mg PO TID 08/20/19 [History Last Taken Unknown] clonidine HCl 0.1 mg tablet 1.5 tab PO BID 08/20/19 [History Last Taken Unknown] cyclobenzaprine 10 mg tablet 10 mg PO TID 08/20/19 [History Last Taken Unknown] omeprazole 20 mg capsule,delayed release 20 mg PO BID 08/20/19 [History Last Taken Unknown] tacrolimus 1 mg capsule, immediate-release 1 mg PO BID 08/20/19 [History Last Taken Unknown] ursodiol 300 mg capsule 300 mg PO TID 08/20/19 [History Last Taken Unknown] Allergy/AdvReac Type Severity Reaction Status Date / Time acetaminophen [From Vicodin] Allergy Anaphylaxis Verified 03/26/23 18:42 hydrocodone [From Vicodin] Allergy Anaphylaxis Verified 03/26/23 18:42 Social History Smoking Status: Former smoker ROS ROS ED Constitutional Constitutional ED: Denies chills or fever(s) ENT ENT ED: Denies rhinorrhea Cardiovascular Cardiovascular: Denies chest pain or palpitations Respiratory/Chest Respiratory/Chest: Denies cough or dyspnea Gastrointestinal Gastrointestinal: Reports diarrhea, melena, vomiting and other Details: See history of present illness Musculoskeletal Musculoskeletal: Denies arthralgias Integumentary Denies rash Neurologic Neurologic: Denies paresthesias Endocrine Endocrinology: Denies polydipsia or polyuria Hematologic/Lymphatic Hematologic/Lymphatic: Denies easy bleeding or easy bruising Allergic/Immunologic Allergic/Immunologic ED: Denies urticaria EXAM Physical Exam Narrative Exam Narrative: CONSTITUTIONAL: Patient is nontoxic in appearance. The patient looks comfortable. He does not look notably pale. HEENT: No notable trauma. Mucous membranes moist. EYES: No conjunctival injection. No proptosis. CARDIOVASCULAR: Regular rate. Regular rhythm. No notable murmur. No JVD. RESPIRATORY: No respiratory distress. Breathing is unlabored. No wheezes. No rhonchi. No rales. No pain with a deep breath. GASTROINTESTINAL: Not distended. Bowel sounds are normal. No tenderness. No guarding. No rebound. No palpable mass. No bruit. His abdomen is actually not tender anywhere. Overall relatively benign. He does have black emesis in the bucket next to him consistent with his story. GENITOURINARY: No tenderness over the bladder. No CVA tenderness. MUSCULOSKELETAL: Atraumatic. No peripheral edema. No cord. No tenderness along the deep venous system. No asymmetry. NEUROLOGICAL: Patient is alert and appropriate. No focal deficit noted. SKIN: No noted rashes. No diaphoresis. PSYCHIATRIC: Patient is calm. Mood is appropriate. Const Vital Signs: 03/26/23 18:42 03/26/23 19:55 03/26/23 20:31 Temperature 97.2 F L Temperature Source Temporal Pulse Rate 76 74 79 Respiratory Rate 16 18 Blood Pressure 149/98 H 156/78 H 149/89 H Blood Pressure Mean 115 104 109 Pulse Ox 98 97 Oxygen Delivery Method Room Air Room Air MDM MDM MDM Narrative Medical decision making narrative: Patient had some black coffee ground emesis in the bucket next to him. No red blood. Patient CBC shows hemoglobin at 11 9. This is lower than I have but the last 1 I have is from 2019. Platelets are a bit low at 86,000. But no other sources of bleeding. Patient's electrolytes show creatinine up at 1.37. But he does have a high BUN also at 58 which makes me more just shows some upper GI bleeding. Liver function test are abnormal but similar to about 4 years of Urine is clean I discussed case with psychology assistant. He recommended Rocephin and pantoprazole drip. Plan will be to do a scope in the morning. I discussed casewith hospitalist also. Lab Data Labs: Laboratory Results - last 24 hr 03/26/23 03/26/23 19:50 21:21 WBC 9.9 RBC 3.80 L Hgb 11.9 L Hct 36.0 L MCV 94.7 H MCH 31.3 MCHC 33.1 RDW Std Deviation 46.8 H RDW Coeff of Donna 13.6 Plt Count 86 L MPV 13.4 H Immature Gran % (Auto) 0.400 Neut % (Auto) 73.9 H Lymph % (Auto) 16.9 L [place] % (Auto) 7.6 Eos % (Auto) 0.9 Baso % (Auto) 0.3 Absolute Neuts (auto) 7.3 Absolute Lymphs (auto) 1.67 Nucleated RBC % 0 Sodium 138 Potassium 4.2 Chloride 106 Carbon Dioxide 27.0 Anion Gap 5 BUN 58 H Creatinine 1.37 H Estim Creat Clear Calc 51.92 Est GFR (MDRD) Af Amer 65 Est GFR (MDRD) Non-Af 54 L BUN/Creatinine Ratio 42.3 H Glucose 224 H Calcium 9.1 Total Bilirubin 1.10 H AST 62 H ALT 65 H Alkaline Phosphatase 194 H Total Protein 7.2 Albumin 3.1 L Globulin 4.1 Albumin/Globulin Ratio 0.8 L Urine Color Yellow Urine Clarity Clear Urine pH 6.0 Ur Specific [place] 1.015 Urine Protein 100 H Urine Glucose (UA) 100 H Urine Ketones 5 H Urine Occult Blood Negative Urine Nitrite Negative Urine Bilirubin Negative Urine Urobilinogen Normal Ur Leukocyte Esterase Negative Urine RBC 0 SEEN Urine WBC 0 SEEN Ur Squamous Epith Cells 0 SEEN Urine Bacteria 0 SEEN Urine Mucus 0 SEEN Discharge Plan Triage Chief Complaint: GI Bleed ED Provider: Esteban Renee Dx/Rx/DC Orders Clinical Impression: Anemia, Thrombocytopenia, Acute upper gastrointestinal bleeding, History of immunosuppression therapy Primary Care Provider: Davis May Disposition Disposition: Acute Care Hospital [facility] What to do if you have Problems For any increased pain, shortness of breath, bleeding, nausea or vomiting, chestpain, or any unexpected problems, contact your Primary Care Provider. Call [facility] ([phone]) or report to the closest Emergency Room. Call 911 if necessary. 03/26/230 <Electronically signed by Esteban Renee MD> Cosigner Signature (if applicable): CC: Dr. Davis May MD ~ Signed [facility] Work Phone: 1(327) 191-696101-05-2024 Discharge summary [facility] March 26, 2023 10:59pm Note Date/Time March 26, 2023 9: 13pm [facility] Medical Records Department [address] [place] [address] Emergency Department Summary 03/26/23 MR#: [id number] Acct: [id number] Name: PARKER YI Rep #:[id number] : 1950 72 From: Esteban Renee MD PCP: Dr. Davis May MD Status:ADM I N Location: [place] [address] HPI HPI - GI History of Present Illness Chief Complaint: GI Bleed Informant: patient and spouse/S.O. Narrative Narrative: Patient states he has had multiple black bowel movements starting this morning. He states his stomach just has not felt right in the upper abdomen for few days and he has not been eating. He is not really having abdominal pain now though. He had a ulcer when he was very young but never since. He has had multiple endoscopies. He has had 2 CT scans recently. 1 as part of regular every 6-month scan in 1 because he started some new protocol for his autoimmune hepatitis. He is on multiple meds including azathioprine and tacrolimus for this. He is not on anything for such as a PPI. While he was here, he threw up once and he threw up black material. No bright red on either end. No fever. PFSH PFSH Home Medications Metoprolol Succinate 150 mg PO BID 08/20/19 [History Last Taken Unknown] azathioprine 50 mg tablet 100 mg PO DAILY 08/20/19 [History Last Taken Unknown] budesonide 3 mg capsule,delayed,extended release 3 mg PO TID 08/20/19 [History Last Taken Unknown] clonidine HCl 0.1 mg tablet 1.5 tab PO BID 08/20/19 [History Last Taken Unknown] cyclobenzaprine 10 mg tablet 10 mg PO TID 08/20/19 [History Last Taken Unknown] omeprazole 20 mg capsule,delayed release 20 mg PO BID 08/20/19 [History Last Taken Unknown] tacrolimus 1 mg capsule, immediate-release 1 mg PO BID 08/20/19 [History Last Taken Unknown] ursodiol 300 mg capsule 300 mg PO TID 08/20/19 [History Last Taken Unknown] Allergy/AdvReac Type Severity Reaction Status Date / Time acetaminophen [From Vicodin] Allergy Anaphylaxis Verified 03/26/23 18:42 hydrocodone [From Vicodin] Allergy Anaphylaxis Verified 03/26/23 18:42 Social History Smoking Status: Former smoker ROS ROS ED Constitutional Constitutional ED: Denies chills or fever(s) ENT ENT ED: Denies rhinorrhea Cardiovascular Cardiovascular: Denies chest pain or palpitations Respiratory/Chest Respiratory/Chest: Denies cough or dyspnea Gastrointestinal Gastrointestinal: Reports diarrhea, melena, vomiting and other Details: See history of present illness Musculoskeletal Musculoskeletal: Denies arthralgias Integumentary Denies rash Neurologic Neurologic: Denies paresthesias Endocrine Endocrinology: Denies polydipsia or polyuria Hematologic/Lymphatic Hematologic/Lymphatic: Denies easy bleeding or easy bruising Allergic/Immunologic Allergic/Immunologic ED: Denies urticaria EXAM Physical Exam Narrative Exam Narrative: CONSTITUTIONAL: Patient is nontoxic in appearance. The patient looks comfortable. He does not look notably pale. HEENT: No notable trauma. Mucous membranes moist. EYES: No conjunctival injection. No proptosis. CARDIOVASCULAR: Regular rate. Regular rhythm. No notable murmur. No JVD. RESPIRATORY: No respiratory distress. Breathing is unlabored. No wheezes. No rhonchi. No rales. No pain with a deep breath. GASTROINTESTINAL: Not distended. Bowel sounds are normal. No tenderness. No guarding. No rebound. No palpable mass. No bruit. His abdomen is actually not tender anywhere. Overall relatively benign. He does have black emesis in the bucket next to him consistent with his story. GENITOURINARY: No tenderness over the bladder. No CVA tenderness. MUSCULOSKELETAL: Atraumatic. No peripheral edema. No cord. No tenderness along the deep venous system. No asymmetry. NEUROLOGICAL: Patient is alert and appropriate. No focal deficit noted. SKIN: No noted rashes. No diaphoresis. PSYCHIATRIC: Patient is calm. Mood is appropriate. Const Vital Signs: 03/26/23 18:42 03/26/23 19:55 03/26/23 20:31 Temperature 97.2 F L Temperature Source Temporal Pulse Rate 76 74 79 Respiratory Rate 16 18 Blood Pressure 149/98 H 156/78 H 149/89 H Blood Pressure Mean 115 104 109 Pulse Ox 98 97 Oxygen Delivery Method Room Air Room Air MDM MDM MDM Narrative Medical decision making narrative: Patient had some black coffee ground emesis in the bucket next to him. No red blood. Patient CBC shows hemoglobin at 11 9. This is lower than I have but the last 1 I have is from 2019. Platelets are a bit low at 86,000. But no other sources of bleeding. Patient's electrolytes show creatinine up at 1.37. But he does have a high BUN also at 58 which makes me more just shows some upper GI bleeding. Liver function test are abnormal but similar to about 4 years of Urine is clean I discussed case with psychology assistant. He recommended Rocephin and pantoprazole drip. Plan will be to do a scope in the morning. I discussed casewith hospitalist also. Lab Data Labs: Laboratory Results - last 24 hr 03/26/23 03/26/23 19:50 21:21 WBC 9.9 RBC 3.80 L Hgb 11.9 L Hct 36.0 L MCV 94.7 H MCH 31.3 MCHC 33.1 RDW Std Deviation 46.8 H RDW Coeff of Donna 13.6 Plt Count 86 L MPV 13.4 H Immature Gran % (Auto) 0.400 Neut % (Auto) 73.9 H Lymph % (Auto) 16.9 L [place] % (Auto) 7.6 Eos % (Auto) 0.9 Baso % (Auto) 0.3 Absolute Neuts (auto) 7.3 Absolute Lymphs (auto) 1.67 Nucleated RBC % 0 Sodium 138 Potassium 4.2 Chloride 106 Carbon Dioxide 27.0 Anion Gap 5 BUN 58 H Creatinine 1.37 H Estim Creat Clear Calc 51.92 Est GFR (MDRD) Af Amer 65 Est GFR (MDRD) Non-Af 54 L BUN/Creatinine Ratio 42.3 H Glucose 224 H Calcium 9.1 Total Bilirubin 1.10 H AST 62 H ALT 65 H Alkaline Phosphatase 194 H Total Protein 7.2 Albumin 3.1 L Globulin 4.1 Albumin/Globulin Ratio 0.8 L Urine Color Yellow Urine Clarity Clear Urine pH 6.0 Ur Specific [place] 1.015 Urine Protein 100 H Urine Glucose (UA) 100 H Urine Ketones 5 H Urine Occult Blood Negative Urine Nitrite Negative Urine Bilirubin Negative Urine Urobilinogen Normal Ur Leukocyte Esterase Negative Urine RBC 0 SEEN Urine WBC 0 SEEN Ur Squamous Epith Cells 0 SEEN Urine Bacteria 0 SEEN Urine Mucus 0 SEEN Discharge Plan Triage Chief Complaint: GI Bleed ED Provider: Esteban Renee Dx/Rx/DC Orders Clinical Impression: Anemia, Thrombocytopenia, Acute upper gastrointestinal bleeding, History of immunosuppression therapy Primary Care Provider: Davis May Disposition Disposition: Acute Care Hospital [facility] What to do if you have Problems For any increased pain, shortness of breath, bleeding, nausea or vomiting, chestpain, or any unexpected problems, contact your Primary Care Provider. Call [facility] ([phone]) or report to the closest Emergency Room. Call 911 if necessary. 03/26/23 4403 <Electronically signed by Esteban Renee MD> Cosigner Signature (if applicable): CC: Dr. Davis May MD ~ Signed [facility] Work Phone: 1(667) 468-713212-14-2023 History of Present illness Narrative* Angeline Romano RN - 03/04/2023 10:00 AM EST IRB# [id number] Liver Cirrhosis Network Cohort Study (Protocol version 1 September 03, 2021) PI: Dr. Larkin Research Nurse/Coordinator: Samy Duffy Visit #: Baseline/Visit 1 Subject ID [id number] All Vital Signs will be found in Additional Documentation below Progress Notes in the Encounter CRU to pull tubes for clinical labs (Saliva kit and Kismet tube from Trae Team) Time Point Procedures [...] with sterile gauze. Patient tolerated procedure well. [facility] ([facility] supply) Check EPIC for lab orders and print labels Pull tubes from [facility] supply based on what is listed on Schedule Request EKG's are uploaded into EMR Signature: Angeline Romano RN Study Team Responsibilities Questionnaires, Head Of Store Operations Strength, Chair Stands, Balance, Physical Exam, FibroScan (NPO 3hrs) Discharge D/C patient home documented in this encounterMercy Health Defiance Hospital11-28-2023 History of Present illness Narrative* Himanshu Harper RT(R) - 02/16/2023 2:15 PM EST Radiology Service Progress Note PATIENT NAME: Mateus Yi DATE OF SERVICE: February 16, 2023 TIME: 2:16 PM PATIENT IDENTITY VERIFICATION COMPLETED USING TWO (2) IDENTIFIERS: Name and Date of confirmedby patient verbally. FALL SCREENING: Has the patient had 2 falls in the last year or 1 fall with injury or currently using an Ambulatory Assistive Device (Walker, Cane, Wheelchair, Crutches, etc.)? No PATIENT GENDER DATA: Male PATIENT RELEVANT IMPLANT DATA REVIEWED: Not Applicable RADIOLOGY DEPARTMENT: Ultrasound PERIPHERAL IV DATA: Not applicable SIGNED BY: RT Olman(R) February 16, 2023 2:16 PM documented in this encounterMercy Health Defiance Hospital11-22-2023 Miscellaneous Notes* Telephone Encounter - Nikki López - 02/10/2023 12:38 PM EST Call from pharmacy requesting refill. Requested Prescriptions Pending Prescriptions Disp Refills metoprolol succinate ER (TOPROL XL) 100 mg 180 tablet 3 Sig: Take 1 tablet by mouth two times a day. Patient last seen 11/19/2020 Nikki López documented in this encounterMercy Health Defiance Hospital11-20-2023 Instructions* Patient Instructions* Myra Gallardo APRN.ZORAIDA - 02/08/2023 3:19 PM EST Schedule ultrasound Follow up with Endocrinology (Cioce) Follow up in 6 months documented in this encounterMercy Health Defiance Hospital11-20-2023 History of Present illness Narrative* Myra Gallardo APRN.ZORAIDA - 02/08/2023 2:30 PM EST NAME: Mateus Yi CLINIC NO: [id number] REFERRING PHYSICIAN: Self PRESENTING COMPLAINT: follow up on AIH Cirrhosis HPI: Mateus Yi is a 72 year old male is here on follow up for AIH related liver disease. RUSTAM with Dr. Bear 09/23/22. 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 Just returned from [facility] yesterday Continues on tacrolimus and MMF Has [...] two times a day. 180 tablet 3 Cmpszxzh2-Zkghlb6-Rbtvq therm. (VSL#3) 112.5 billion cell cap Take 1 capsule by mouth once daily. [address] (PROTONIX) 40 mg tablet Take 1 tablet by mouth once daily. 30 tablet 2 Current Facility-Administered Medications Medication Dose Route Frequency Provider Last Rate Last Admin perflutren lipid microspheres 1.3 mL in NaCl (PF) 0.9% 10 mL injection (DEFINITY) INTRAVENOUS DIRECTED PRN Bernadetet Munguia MD sodium chloride 0.9 % (flush) 10 mL (BD POSIFLUSH) 10 mL INTRAVENOUS DIRECTED PRJohn Abel MD perflutren lipid microspheres 1.3 mL in NaCl (PF) 0.9% 10 mL injection (DEFINITY) INTRAVENOUS DIRECTED PRN Bernadette Munguia MD sodium chloride 0.9 % (flush) 10 mL (BD POSIFLUSH) 10 mL INTRAVENOUS DIRECTED PRJohn Abel MD ALLERGIES Allergen Reactions Vicodin [Hydrocodon* Anaphylaxis [...] SPLENOMEGALY. TRACE ASCITES. Assessment IMPRESSION/ PLAN Mateus Yi is a 72 year old male with a history significant for DM-2, HTN, HCM w/ syncope s/p ICDin 2012 who is here on follow up [...] February Follow up in 6 months Myra Gallardo APRN.ZORAIDA Gallardo APRN.CNP February 08, 2023 1:56 PM documented in this encounterMercy Health Defiance Hospital11-03-2023 History of Present illness Narrative* Angeline Pfeiffer, OD - 01/22/2023 2:53 PM EDT 1. Combined forms of age-related cataract of both eyes Mild visual significance Educated patient -will monitor 2. Type 2 diabetes mellitus without retinopathy (HCC) Risk of diabetic changes and vision loss can be minimized by tight control of blood sugar, blood pressure, and cholesterol levels. Educated patient to continue care with primary care doctor and/or siebel solution architect to maintain optimum levels as they are [...] for complete eye exam and BAT Angeline Pfeiffer, DANO January 22, 2023 2:53 PM documented in this encounterMercy Health Defiance Hospital10-31-2023 Miscellaneous Notes* Telephone Encounter - Board Gater Estela Cueto - 01/19/2023 7:35 AM EDT Call from pharmacy requesting refill. Requested Prescriptions Pending Prescriptions Disp Refills cloNIDine HCl (CATAPRES) 0.1 mg tablet 270 tablet 1 Sig: Take 1.5 tablets by mouth two times a day. Patient last seen 11/19/2020 Estela Board Gater [employer] documented in this encounterMercy Health Defiance Hospital09-18-2023 Miscellaneous Notes* Telephone Encounter - Teresa Hernandes LPN - 12/07/2022 3:55 PM EDT Patient has been identified by name and [...] 10/14/22 Teresa Hernandes LPN documented in this encounterMercy Health Defiance Hospital07-12-2023 History of Present illness Narrative* Evelin Reich APRN.UTILIZATION REVIEWER - 09/30/2022 2:00 PM EDT NEW CONSULT OFFICE PROGRESS NOTE Reason for Consultation: DM Type 2 Referring Physician: SELF My final recommendations will be communicated back to the requesting physician by way of shared Medical record or letter via US mail. 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 (VSL#3) 112.5 billion cell cap Take [...] issues, safest, healthiest blood sugar control would berelated to stopping his current sweets intake. (Pt [...] months. If A1C controlled w diet/exercise only cancontinue, if repeat A1C is not controlled - [...] A1C Evelin Reich CNP documented in this encounterMercy Health Defiance Hospital07-06-2023 Miscellaneous Notes* Telephone Encounter - Lorna Watkins MA - 09/24/2022 12:14 PM EDT Patient denies any missed medication changes or dietary changes. Patient declines checking BS at home states no availability to check. Patient saw GASTRO. doctor 09/23/22 who placed referral for ENDO. Patient will be scheduling to establish with endocrinology in regards to DM management. Lorna Watkins MA * Telephone Encounter - Martha Kaplan Ma - 09/21/2022 11:14 AM EDT Left message for patient to return call. Martha Kaplan Ma * Telephone Encounter - Davis May MD - 09/21/2022 11:00 AM EDT Sugars are up from what they had been. Has he missed any med doses? Any dietary changes? Is he checking sugars at home. If so, how have they been? documented in this encounterMercy Health Defiance Hospital07-05-2023 History of Present illness Narrative* Derrek Bear MD - 09/23/2022 12:55 PM EDT [facility] 09/23/2022 Mateus Yi 72 year old male Referring physician or PCP: SELF Davis May MD Referred by * [facility] the [facility] for opinion regarding * . My final recommendations will be communicated by way of shared Medical Record for internal providers or letter via the [employer] for external providers. 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 Brief plan - [...] quite some time but has GI side effectsthat resolved with withdrawal of the med Ascites- [...] TABLET BY MOUTH TWICE A DAY^Disp: 180 tablet^Rfl:3 cloNIDine HCl (CATAPRES) 0.1 mg tablet^TAKE 1 [...] by mouth as directed.^Disp: 60 capsule^Rfl: 1 Nrgtcxmu9-Jpxwxx0-Omxey therm. 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 on recent biopsy currently being treated with tacrolimus and MMF, DM-2,HTN, HCM w/ syncope s/p ICD in 2012 [...] quite some time but has GI side effectsthat resolved with withdrawal of the md Ascites- [...] which included preparing to see the patient, [id number] patient care, completing clinical documentation, obtaining and/or reviewing separately obtained history, performing a medically appropriate examination, counseling and educating the pat ient/family/caregiver, ordering medications, tests, or procedures, communicating with other HCPs (not separately reported), independently interpreting results (not separately reported), communicatingresults to the patient/family/caregiver, and care coordination (not separately reported). Derrek Bear MD Wire Frame Lamp Shade Maker, Department of Medicine [facility] documented in this encounterMercy Health Defiance Hospital04-24-2023 Instructions* Patient Instructions* Bernadette Munguia MD - 07/13/2022 3:57 PM EDT We are scheduling you for an echocardiogram Follow up in three months documented in this encounterMercy Health Defiance Hospital04-24-2023 History of Present illness Narrative* Bernadette Munguia MD - 07/13/2022 3:40 PM EDT Images from the original note were not included. [facility] SECTION OF REGIONAL CARDIOLOGY Cardiology ([facility]) [address] [facility] [facility] [id number] OUTPATIENT VISIT DATE 07/13/2022 PRIMARY CARE PHYSICIAN: Davis May [address] [place] [address] HISTORY OF PRESENT ILLNESS: Mr. Yi is a 72 year old gentleman with [...] CARDIAC HISTORY: He underwent ICD placement in 2013 after a syncopal episode. [facility] 06/02/12: EF 75%, LM, Circumflex and RCA [...] TABLET BY MOUTH TWICE A DAY^Disp: 180 tablet^Rfl:3 cloNIDine HCl (CATAPRES) 0.1 mg tablet^TAKE 1 AND 1/2 TABLETS BY MOUTH TWICE DAILY^Disp: 270 tablet^Rfl: 3 Rqevfcle1-Zomgrb6-Iqpus therm. (VSL#3) 112.5 billion cell cap^Take 1 [...] prior echocardiographic exam performed on 09/05/2019. Gradients arelower. DUAL CHAMBER ICD REMOTE EVALUATION 06/10/2022: PRESENTING EGM: /VS, Sinus Bradycardia. BATTERY STATUS: Estimated time remaining to KIMBER is 3.5 years. COUNTERS SINCE: 03/11/22 ATRIAL ARRHYTHMIAS: There have been no new triggered episodes of atrial high rates. VENTRICULAR ARRHYTHMIAS: There has been 1 new ventricular detection. EGM shows a brief burst of SVTwith 1:1 AV conduction. LEAD MEASUREMENTS: Sensing is appropriate. Review of the lead impedance trends are normal. OTHER DIAGNOSTICS: RV pacing 0%. I have personally reviewed the Laboratory Testing and Echocardiogram. IMPRESSION: Mr. Yi is a 72 year old gentleman with a history of hypertrophic cardiomyopathy and prior ICD implantation in 2012. He had undergone cardiac catheterization before his ICD implantation which demonstrated no significant coronary disease and possible mild LAD bridge. He is also treated for hyperten nanette. He has a history of autoimmune hepatitis [...] nonpharmacological means for blood pressure management Bernadette Munguia MD documented in this encounterMercy Health Defiance Hospital04-06-2023 Miscellaneous Notes* Telephone Encounter - Estela Valverde Gater [employer] - 06/25/2022 7:40 AM EDT Call from pharmacy requesting refill. Requested Prescriptions [...] MOUTH TWICE DAILY Patient last seen 11/19/2020 [facility] documented in this encounterMercy Health Defiance Hospital03-20-2023 Miscellaneous Notes* Telephone Encounter - Denae Srivastava LPN - 06/08/2022 2:23 PM EDT Patient has been identified by name and date of : Yes, Provider Dr. May Date 06/08/22 Time 2:25 pm Patient phones [...] you. Denae Srivastava LPN documented in this encounterMercy Health Defiance Hospital03-06-2023 History of Present illness Narrative* Prabhu Le PA-C - 05/25/2022 10:33 AM EST Images from the original note were not included. [facility] [place] [facility] NOTE CC: Mateus Yi is a 72 year old male who is seen at the request of Davis May for evaluation ofthroat clearing, oral bleeding. My findings and recommendations [...] up with Laryngology; sooner if clinically indicated Prabhu Le PA-C Comprehensive E[facility] HPI: 72 year old [...] time. 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 Past medical history: PAST MEDICAL [...] Take 1 tablet by mouth twice daily Fqiumbpe4-Rdivmz7-Gabhy therm. (VSL#3) 112.5 billion cell cap Take [...] - otalgia, - ear pressure, - ear congestion,- otorrhea, - itching, - autophony, - ear [...] are patent. The mucosa is pink and moistwithout lesions, visible turbinates grossly normal on anterior rhinoscopy. Septum is deviated. ORAL CAVITY AND OROPHARYNX: Teeth are in fair repair and nontender. The lips, gums, oral mucosa, hard and soft palates, tongue, tonsil area, and posterior pharyngeal mucosa are without lesions. Uvulamidline. + posterior oropharyngeal erythema. Gag reflex intact. [...] were explained; patient consents to procedure. Clinician: Prabhu Le PA-C Anesthesia: The patient was sprayed with [...] complications. Findings were explained to the patient. Prabhu Le PA-C [facility] Medical Decision Making: Problems: Moderate: 1+ chronic illnesses with change Risk: Moderate: Drug management and Moderate risk from testing/treatment Medical Decision Making Level: 4 - Moderate documented in this encounterMercy Health Defiance Hospital03-03-2023 Miscellaneous Notes* Telephone Encounter - Teresa Hernandes LPN - 05/22/2022 10:25 AM EST Patient has been identified by name and [...] patient. Teresa Hernandes LPN documented in this encounterMercy Health Defiance Hospital03-01-2023 Miscellaneous Notes* Telephone Encounter - Annamarie Garcia RN - 05/20/2022 11:28 AM EST Pt last seen cyndie 10/20/2021. Did you want a follow up appt with pt? Annamarie Garcia RN documented in this encounterMercy Health Defiance Hospital01-30-2023 History of Present illness Narrative* Davis May MD - 04/20/2022 10:04 AM EST Patient presents with: 6 Month Exam HPI: [...] Take 1 tablet by mouth twice daily Rrprhsgt5-Rwjsty0-Wxtzk therm. (VSL#3) 112.5 billion cell cap Take [...] past medical history, surgical history, family history andsocial history today. REVIEW OF SYSTEMS All other [...] hepatic cirrhosis type, unspecified whether ascites present (HCC)- ICD9: 571.5, ICD10: K74.60 - will follow. 5. Controlled type 2 diabetes mellitus without complication, unspecified whether fci insulin use (HCC) - ICD9: 250.00, ICD10: E11.9 - elected not to monitor for now. Add januvia at renal dose. - HGB A1C 6. Thrombocytopenia (HCC) - ICD9: 287.5, ICD10: D69.6 7. Throat clearing - ICD9: 786.09, ICD10: R09.89 - CONSULT TO ENT 8. Oral bleeding - ICD9: 528.9, ICD10: K13.79 - CONSULT TO ENT Davis May MD documented in this encounterMercy Health Defiance Hospital01-20-2023 Miscellaneous Notes* Telephone Encounter - Lupe Addison - 04/10/2022 11:31 AM EST Called Mateus Yi to remind them of an appointment with Dr. Bear on 04/13/22. Left Message for patient. documented in this encounterMercy Health Defiance Hospital01-18-2023 History of Present illness Narrative* Sally Odonnell MA - 04/08/2022 9:51 AM EST POPULATION HEALTH NAVIGATION OUTREACH Action/FYI [facility] [address] [employer] MESSAGE SENT ANNUAL MEDICARE WELLNESS BP CONTROLLED [...] 08, 2022 9:51 AM documented in this encounterMercy Health Defiance Hospital01-17-2023 History of Present illness Narrative* RT Lucian(R) - 04/07/2022 1:45 PM EST Radiology Service Progress Note PATIENT NAME: Mateus Yi DATE OF SERVICE: April 07, 2022 TIME: 1:58 PM PATIENT IDENTITY VERIFICATION COMPLETED USING TWO (2) IDENTIFIERS: Name and Date of confirmedby patient verbally. FALL SCREENING: Has the patient had 2 falls in the last year or 1 fall with injury or currently using an Ambulatory Assistive Device (Walker, Cane, Wheelchair, Crutches, etc.)? No PATIENT GENDER DATA: Male PATIENT RELEVANT IMPLANT DATA REVIEWED: Not Applicable RADIOLOGY DEPARTMENT: Ultrasound PERIPHERAL IV DATA: Not applicable SIGNED BY: RT Lucian(R) April 07, 2022 1:58 PM documented in this encounterMercy Health Defiance Hospital12-19-2022 Miscellaneous Notes* Telephone Encounter - Hever Pascal LPN - 03/09/2022 3:27 PM EST Patient phones requesting refills as follows: Requested Prescriptions Pending Prescriptions Disp Refills Amoxicillin 500 mg tablet 16 tablet 0 Si mg by mouth 1-2 hours prior to dental procedures Please review and advise. Hever Pascal LPN documented in this encounterMercy Health Defiance Hospital11-07-2022 Miscellaneous Notes* Telephone Encounter - Teresa Hernandes LPN - 01/26/2022 1:10 PM EST Called and spoke with patient this is regarding him getting his mars testing kit. After discussionwith patient we have done what was asked [...] to insurance. Patient notified and verbalizes understanding. * Telephone Encounter - Davis May MD - 01/26/2022 9:25 AM EST Can we actually call patient and see what questions were. I was out of town when he sent messages and staff and Fabricio were covering. Not sure what other questions he had. * Telephone Encounter - Lorna Watkins MA - 01/26/2022 8:23 AM EST Please refer to [employer] message 12/29/21-while PCP was out on vacation: all questions were addressed by staff & Fabricio. Lorna Watkins MA documented in this encounterMercy Health Defiance Hospital10-14-2022 Miscellaneous Notes* Telephone Encounter - Teresa Hernandes LPN - 01/02/2022 10:55 AM EDT Please see previous [employer] message. documented in this encounterMercy Health Defiance Hospital10-10-2022 Miscellaneous Notes* Telephone Encounter - Lucinda Damon - 12/29/2021 2:49 PM EDT Spoke with [facility] who states they do in fact have the Rx's for the Mars supplies. Insurance is not covering it. Recommended that patient stop in to pharmacy and give new insurance information so pharmacy can try running it through again. Spoke with patient and informed. Lucinda Damon documented in this encounterMercy Health Defiance Hospital10-03-2022 History of Present illness Narrative* Davis May MD - 12/22/2021 3:22 PM EDT Patient presents with: Follow Up: Following up [...] 169 MEDICATIONS: Current Outpatient Medications Medication Sig Lqnvydtf3-Bheiny9-Psmlr therm. (VSL#3) 112.5 billion cell cap Take [...] mouth twice daily. (Patient not taking: No sigreported) Current Facility-Administered Medications Medication Dose Route Frequency [...] past medical history, surgical history, family history andsocial history today. REVIEW OF SYSTEMS All other [...] hepatic cirrhosis type, unspecified whether ascites present (HCC)- ICD9: 571.5, ICD10: K74.60 5. Hypertrophic obstructive cardiomyopathy (HOCM) (HCC) - ICD9: 425.11, ICD10: I42.1 - follow bp in next month Davis May MD documented in this encounterMercy Health Defiance Hospital08-23-2022 Miscellaneous Notes* Telephone Encounter - Lucinda Damon - 11/11/2021 2:55 PM EDT Spoke with patient and informed of labs. Patient verbalized understanding. Appointment scheduled 12/13/21 per Patient he needed late November appointment. Patient states that he's been eating a lot of ice-cream and also taking high protein supplements. Lucinda Damon * Telephone Encounter - Davis May MD - 11/11/2021 2:47 PM EDT Sugars are slightly higher and showing some protein in the urine. Come in to see one of us to discuss. documented in this encounterMercy Health Defiance Hospital08-01-2022 Instructions* Patient Instructions* Bernadette Munguia MD - 10/20/2021 1:29 PM EDT We are scheduling you for an echocardiogram documented in this encounterMercy Health Defiance Hospital08-01-2022 History of Present illness Narrative* Bernadette Munguia MD - 10/20/2021 1:00 PM EDT Images from the original note were not included. [facility] SECTION OF REGIONAL CARDIOLOGY Cardiology ([facility]) [address] [facility] [id number] OUTPATIENT VISIT DATE 10/20/2021 PRIMARY CARE PHYSICIAN: Davis May [address] [place] [address] CHIEF COMPLAINT: HISTORY OF PRESENT ILLNESS: Mr. Yi is a 71 year old gentleman with a history of hypertrophic cardiomyopathy with ICD implantation in 2012, angiographically normal coronary arteries on prior catheterization 2012, hypertension, and autoimmune hepatitis who presents to establish new cardiology follow-up. [facility] He is referred so that he can have closer follow-up to home. [facility]. He has occasional episodes of [...] placement in 2012 after a syncopal episode. [facility] 06/02/12: EF 75%, LM, Circumflex and RCA [...] Take 1 capsule by mouth twice daily. Ymgbdjlr9-Ocbdle6-Ygncv therm. (VSL#3) 112.5 billion cell cap Take [...] the Laboratory Testing and Echocardiogram. IMPRESSION: Mr. Yi is a 71 year old gentleman with a history of hypertrophic cardiomyopathy and prior ICD implantation in 2012. He had undergone cardiac catheterization before his ICD implantation which demonstrated no significant coronary disease and possible mild LAD bridge. He is also treated for hyperten nanette. He has a history of autoimmune hepatitis [...] well-tolerated. He has not had symptoms concerning forCHF. Plan to repeat an echocardiogram in the [...] insufficiency - ICD9: 459.81, ICD10: I87.2 Bernadette Munguia MD documented in this encounterMercy Health Defiance Hospital07-28-2022 History of Present illness Narrative* Davis May MD - 10/16/2021 11:11 AM EDT Patient presents with: 6 Month Exam HPI: [...] Will be doing a cruise of the [employer] coming up. Will be getting labs before [...] he is aware of. Still seeing Dr. Beckett. Emotionally is doing well. Just had labs [...] neuropathy Given temazepam for sleep by Dr. Noguera. oarrs done. Discussed risks of using benzos. Advised I would prefer to avoid. Cardio:seeing [facility]iology [facility]. No chest pain No worsening shortness of [...] bleeding issues. He would like to see Psychologist Social just to follow. PSYCH:sees Dr. Beckett for psych. Uses medical marijuana. Emotionally stable. GOUT:no recent issues. Ortho: sees Dr. Cadena for his finger and seeing Dr. Yap for his knees. MEDICATIONS: Current Outpatient Medications Medication Sig ursodiol (ACTIGALL) 300 mg capsule Take 1 capsule by mouth twice daily. tacrolimus IR (PROGRAF) 1 mg capsule Take 1 capsule by mouth twice daily. Pngawrxf3-Mjwhiq4-Rzxop therm. (VSL#3) 112.5 billion cell cap Take [...] past medical history, surgical history, family history andsocial history today. REVIEW OF SYSTEMS Does have [...] hepatic cirrhosis type, unspecified whether ascites present (HCC)- ICD9: 571.5, ICD10: K74.60 - stable. 3. [...] - ICD9: 272.4, ICD10: E78.5 - will marcos 8. Hypertrophic obstructive cardiomyopathy (HOCM) (HCC) - ICD9: 425.11, ICD10: I42.1 - CONSULT TO CARDIOLOGY 9. 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 documented in this encounterMer[facility] History of Present illness Narrative* Derrek Bear MD - 10/13/2021 1:00 PM EDT VIRTUAL VISIT FOLLOW UP I had a virtual visit with Mr. Yi today for follow up of autoimmune hepatitis [...] cords; tried PPI in the past which helpedbut then went off this med - when [...] by mouth twice daily. 60 capsule 5 Qydphbih7-Jdkeml3-Bnoni therm. (VSL#3) 112.5 billion cell cap Take [...] (BD POSIFLUSH) 10 mL INTRAVENOUS DIRECTED PRN Nova Shahid MD ALLERGIES Allergen Reactions Vicodin [Hydrocodon* [...] ursodiol and change in diet. With half doseursodiol, no real change in liver enzymes. We [...] coordinate I spent more than 40 minutes wild-gj-adlf with the patient and over half the time was devoted to counseling and/or coordination of care. Derrek Bear MD documented in this encounterMer[facility]07-21-2022 Miscellaneous Notes* Telephone Encounter - Lupe Addison - 10/09/2021 12:33 PM EDT Called Mateus Yi to remind them of an appointment with Dr. Bear on 10/13/2021. Left Message for patient. documented in this encounterMer[facility]06-21-2022 Miscellaneous Notes* Telephone Encounter - MARGARET Alexandre - 09/09/2021 8:14 AM EDT Patient has been identified by name and date of : Yes Patient phones for refill(s): Pending Prescriptions Disp Refills AMOXICILLIN 500 MG TABLET 8 tablet 5 Si mg by mouth 1-2 hours prior to dental procedures RAYSA: No Date of last office visit in primary care: RUSTAM 04/16/2021 Appointment scheduled for 10/15/2021 Amoxicillin previously prescribed by Dr. Noguera in 2019 for dental procedures. Please see the patient message regarding upcoming bridge work. Last 2 Encounter Wt Readings: Date: Wt: 04/16/2021 82.6 kg (182 lb) 02/06/2021 83 kg (183 lb) Please advise. Thank you. MARGARET Alexandre documented in this encounterMer[facility]05-12-2022 History of Present illness Narrative* RT Anamaria(Edmond) - 07/31/2021 1:00 PM EDT Radiology Service Progress Note PATIENT NAME: Mateus Yi DATE OF SERVICE: July 31, 2021 TIME: 1:36 PM PATIENT IDENTITY VERIFICATION COMPLETED USING TWO (2) IDENTIFIERS: Name and Date of confirmedby patient verbally. FALL SCREENING: Has the patient had 2 falls in the last year or 1 fall with injury or currently using an Ambulatory Assistive Device (Walker, Cane, Wheelchair, Crutches, etc.)? No PATIENT GENDER DATA: Male PATIENT RELEVANT IMPLANT DATA REVIEWED: Yes RADIOLOGY DEPARTMENT: CT; Exam(s) Completed: Liver PERIPHERAL IV DATA: Site assessment: Clean,Dry and Intact, Site disposition Discontinued SIGNED BY: RT Anamaria(Edmond) July 31, 2021 1:36 PM * Riddhi Musa RN - 07/31/2021 1:00 PM EDT Radiology Service Progress Note DATE OF SERVICE: [...] and/or any recent Nephrotoxic Chemotherapy or other Nephrotoxicmedications CREATININE: Creatinine Date Value Ref Range Status [...] creatinine assay has traceable calibration to isotope dilution- mass spectrometry. Refer to KDIGO guidelines for clinical interpretation. In patients with unstable renal function, e.g. those with acute kidney injury, the eGFRmay not accurately reflect actual GFR. eGFR- Date Value Ref Range Status 12/25/2020 >60 Final P.O.C.T. RESULTS: N/A July 31, 2021 TREATMENT: N/A and No Hydration needed. IV SITE: Ambulatory: A peripheral IV was started in the Left antecubital site with a Angio cath: 20gauge. and A Saline lock was inserted per protocol IV SITE APPEARANCE: Clean,Dry and Intact SIGNATURE: Riddhi Musa RN PATIENT NAME: Mateus Yi DATE: July 31, 2021 TIME: 12:56 PM documented in this encounterMer[facility]05-02-2022 History of Present illness Narrative* MARGARET Ch - 07/21/2021 8:15 AM EDT Radiology Service Progress Note PATIENT NAME: Mateus Yi DATE OF SERVICE: July 21, 2021 TIME: 9:13 AM PATIENT IDENTITY VERIFICATION COMPLETED USING TWO (2) IDENTIFIERS: Name and Date of confirmedby patient verbally. FALL SCREENING: Has the patient had 2 falls in the last year or 1 fall with injury or currently using an Ambulatory Assistive Device (Walker, Cane, Wheelchair, Crutches, etc.)? No PATIENT GENDER DATA: Female. status: : No status: NO. PATIENT RELEVANT IMPLANT DATA REVIEWED: Not Applicable RADIOLOGY DEPARTMENT: Ultrasound PERIPHERAL IV DATA: Not applicable SIGNED BY: MARGARET Ch July 21, 2021 9:13 AM documented in this encounterMer[facility]04-05-2022 History of Present illness Narrative* Derrek Bear MD - 06/24/2021 10:02 AM EDT VIRTUAL VISIT FOLLOW UP I had a virtual visit with Mr. Yi today for follow up of autoimmune hepatitis [...] by mouth twice daily. 180 capsule 0 Woktlqyf3-Vtiqrq3-Bmnif therm. (VSL#3) 112.5 billion cell cap Take [...] (BD POSIFLUSH) 10 mL INTRAVENOUS DIRECTED PRN Nova Shahid MD ALLERGIES Allergen Reactions Vicodin [Hydrocodon* [...] being used, though overall enzymes seem to beimproving on current regimen of tacrolimus 1 mg q12h, mycophenolate 500 mg PO BID, and ursodiol 300mg PO BID. Continues to have significant GI [...] HE I spent more than 40 minutes szcc-eq-xpvc with the patient and over half the time was devoted to counseling and/or coordination of care. Derrek Bear MD documented in this encounterMer[facility]04-01-2022 Miscellaneous Notes* Telephone Encounter - Lupe Addison - 06/20/2021 2:49 PM EDT Called Mateus Yi to remind them of an appointment with Dr. Bear on 06/24/2021. Left Message for patient. documented in this encounterMer[facility]03-28-2022 Miscellaneous Notes* [facility] - 06/16/2021 8:35 AM EDT Call from pharmacy requesting refill. Pending Prescriptions Disp Refills CLONIDINE HCL 0.1 MG TABLET 270 tablet 3 Sig: Take 1.5 tablets by mouth twice daily. RAYSA: No Patient last seen 11/19/2020 [facility]16/2021 8:36 AM EDT documented in this encounterMer[facility]04-13-2021 History of Past illness Narrative* Problem [...] Overview: Added automatically from request for surgery [id number] Biceps tendinopathy 05/24/2017 10/11/2017 Overview: Added automatically from request for surgery [id number] Rotator cuff tear 05/24/2017 10/11/2017 Overview: Added automatically from request for surgery [id number] Rotator cuff arthropathy, left 03/09/2017 0 10/11/2017 Overview: 2017: Tear left biceps tendon documented as of this encounter (statuses as of 06/16/2021) [facility] of Past illness Narrative* Problem [...] Overview: Added automatically from request for surgery [id number] Biceps tendinopathy 05/24/2017 10/11/2017 Overview: Added automatically from request for surgery [id number] Rotator cuff tear 05/24/2017 10/11/2017 Overview: Added automatically from request for surgery [id number] Rotator cuff arthropathy, left 03/09/2017 0 10/11/2017 Overview: 2017: Tear left biceps tendon documented as of this encounter (statuses as of 06/20/2021) [facility] of Past illness Narrative* Problem [...] Overview: Added automatically from request for surgery [id number] Biceps tendinopathy 05/24/2017 10/11/2017 Overview: Added automatically from request for surgery [id number] Rotator cuff tear 05/24/2017 10/11/2017 Overview: Added automatically from request for surgery [id number] Rotator cuff arthropathy, left 03/09/2017 0 10/11/2017 Overview: 2017: Tear left biceps tendon documented as of this encounter (statuses as of 06/24/2021) [facility] of Past illness Narrative* Problem [...] Overview: Added automatically from request for surgery [id number] Biceps tendinopathy 05/24/2017 10/11/2017 Overview: Added automatically from request for surgery [id number] Rotator cuff tear 05/24/2017 10/11/2017 Overview: Added automatically from request for surgery [id number] Rotator cuff arthropathy, left 03/09/2017 0 10/11/2017 Overview: 2017: Tear left biceps tendon documented as of this encounter (statuses as of 06/25/2021) [facility] of Past illness Narrative* Problem [...] Overview: Added automatically from request for surgery [id number] Biceps tendinopathy 05/24/2017 10/11/2017 Overview: Added automatically from request for surgery [id number] Rotator cuff tear 05/24/2017 10/11/2017 Overview: Added automatically from request for surgery [id number] Rotator cuff arthropathy, left 03/09/2017 0 10/11/2017 Overview: 2017: Tear left biceps tendon documented as of this encounter (statuses as of 06/30/2021) [facility] of [facility] illness Narrative* Problem [...] Overview: Added automatically from request for surgery [id number] Biceps tendinopathy 05/24/2017 10/11/2017 Overview: Added automatically from request for surgery [id number] Rotator cuff tear 05/24/2017 10/11/2017 Overview: Added automatically from request for surgery [id number] Rotator cuff arthropathy, left 03/09/2017 0 10/11/2017 Overview: 2017: Tear left biceps tendon documented as of this encounter (statuses as of 07/08/2021) [facility] illness Narrative* Problem [...] Overview: Added automatically from request for surgery [id number] Biceps tendinopathy 05/24/2017 10/11/2017 Overview: Added automatically from request for surgery [id number] Rotator cuff tear 05/24/2017 10/11/2017 Overview: Added automatically from request for surgery [id number] Rotator cuff arthropathy, left 03/09/2017 0 10/11/2017 Overview: 2017: Tear left biceps tendon documented as of this encounter (statuses as of 07/22/2021) [facility] Narrative* Problem [...] Overview: Added automatically from request for surgery [id number] Biceps tendinopathy 05/24/2017 10/11/2017 Overview: Added automatically from request for surgery [id number] Rotator cuff tear 05/24/2017 10/11/2017 Overview: Added automatically from request for surgery [id number] Rotator cuff arthropathy, left 03/09/2017 0 10/11/2017 Overview: 2017: Tear left biceps tendon documented as of this encounter (statuses as of 07/22/2021) [facility] Narrative* Problem [...] Overview: Added automatically from request for surgery [id number] Biceps tendinopathy 05/24/2017 10/11/2017 Overview: Added automatically from request for surgery [id number] Rotator cuff tear 05/24/2017 10/11/2017 Overview: Added automatically from request for surgery [id number] Rotator cuff arthropathy, left 03/09/2017 0 10/11/2017 Overview: 2017: Tear left biceps tendon documented as of this encounter (statuses as of 07/23/2021) [facility] Narrative* Problem [...] Overview: Added automatically from request for surgery [id number] Biceps tendinopathy 05/24/2017 10/11/2017 Overview: Added automatically from request for surgery [id number] Rotator cuff tear 05/24/2017 10/11/2017 Overview: Added automatically from request for surgery [id number] Rotator cuff arthropathy, left 03/09/2017 0 10/11/2017 Overview: 2017: Tear left biceps tendon documented as of this encounter (statuses as of 08/01/2021) [facility] Narrative* Problem [...] Overview: Added automatically from request for surgery [id number] Biceps tendinopathy 05/24/2017 10/11/2017 Overview: Added automatically from request for surgery [id number] Rotator cuff tear 05/24/2017 10/11/2017 Overview: Added automatically from request for surgery [id number] Rotator cuff arthropathy, left 03/09/2017 0 10/11/2017 Overview: 2017: Tear left biceps tendon documented as of this encounter (statuses as of 08/05/2021) [facility] Narrative* Problem [...] Overview: Added automatically from request for surgery [id number] Biceps tendinopathy 05/24/2017 10/11/2017 Overview: Added automatically from request for surgery [id number] Rotator cuff tear 05/24/2017 10/11/2017 Overview: Added automatically from request for surgery [id number] Rotator cuff arthropathy, left 03/09/2017 0 10/11/2017 Overview: 2017: Tear left biceps tendon documented as of this encounter (statuses as of 09/02/2021) [facility] Narrative* Problem [...] Overview: Added automatically from request for surgery [id number] Biceps tendinopathy 05/24/2017 10/11/2017 Overview: Added automatically from request for surgery [id number] Rotator cuff tear 05/24/2017 10/11/2017 Overview: Added automatically from request for surgery [id number] Rotator cuff arthropathy, left 03/09/2017 0 10/11/2017 Overview: 2017: Tear left biceps tendon documented as of this encounter (statuses as of 09/09/2021) [facility] Narrative* Problem [...] Overview: Added automatically from request for surgery [id number] Biceps tendinopathy 05/24/2017 10/11/2017 Overview: Added automatically from request for surgery [id number] Rotator cuff tear 05/24/2017 10/11/2017 Overview: Added automatically from request for surgery [id number] Rotator cuff arthropathy, left 03/09/2017 0 10/11/2017 Overview: 2017: Tear left biceps tendon documented as of this encounter (statuses as of 09/24/2021) [facility] Narrative* Problem [...] Overview: Added automatically from request for surgery [id number] Biceps tendinopathy 05/24/2017 10/11/2017 Overview: Added automatically from request for surgery [id number] Rotator cuff tear 05/24/2017 10/11/2017 Overview: Added automatically from request for surgery [id number] Rotator cuff arthropathy, left 03/09/2017 0 10/11/2017 Overview: 2017: Tear left biceps tendon documented as of this encounter (statuses as of 10/09/2021) [facility] Narrative* Problem [...] Overview: Added automatically from request for surgery [id number] Biceps tendinopathy 05/24/2017 10/11/2017 Overview: Added automatically from request for surgery [id number] Rotator cuff tear 05/24/2017 10/11/2017 Overview: Added automatically from request for surgery [id number] Rotator cuff arthropathy, left 03/09/2017 0 10/11/2017 Overview: 2017: Tear left biceps tendon documented as of this encounter (statuses as of 10/13/2021) [facility] Narrative* Problem [...] Overview: Added automatically from request for surgery [id number] Biceps tendinopathy 05/24/2017 10/11/2017 Overview: Added automatically from request for surgery [id number] Rotator cuff tear 05/24/2017 10/11/2017 Overview: Added automatically from request for surgery [id number] Rotator cuff arthropathy, left 03/09/2017 0 10/11/2017 Overview: 2017: Tear left biceps tendon documented as of this encounter (statuses as of 10/16/2021) [facility] Narrative* Problem [...] Overview: Added automatically from request for surgery [id number] Biceps tendinopathy 05/24/2017 10/11/2017 Overview: Added automatically from request for surgery [id number] Rotator cuff tear 05/24/2017 10/11/2017 Overview: Added automatically from request for surgery [id number] Rotator cuff arthropathy, left 03/09/2017 0 10/11/2017 Overview: 2017: Tear left biceps tendon documented as of this encounter (statuses as of 10/17/2021) [facility] Narrative* Problem [...] Overview: Added automatically from request for surgery [id number] Biceps tendinopathy 05/24/2017 10/11/2017 Overview: Added automatically from request for surgery [id number] Rotator cuff tear 05/24/2017 10/11/2017 Overview: Added automatically from request for surgery [id number] Rotator cuff arthropathy, left 03/09/2017 0 10/11/2017 Overview: 2017: Tear left biceps tendon documented as of this encounter (statuses as of 10/20/2021) [facility] Narrative* Problem [...] Overview: Added automatically from request for surgery [id number] Biceps tendinopathy 05/24/2017 10/11/2017 Overview: Added automatically from request for surgery [id number] Rotator cuff tear 05/24/2017 10/11/2017 Overview: Added automatically from request for surgery [id number] Rotator cuff arthropathy, left 03/09/2017 0 10/11/2017 Overview: 2017: Tear left biceps tendon documented as of this encounter (statuses as of 10/23/2021) [facility] Narrative* Problem [...] Overview: Added automatically from request for surgery [id number] Biceps tendinopathy 05/24/2017 10/11/2017 Overview: Added automatically from request for surgery [id number] Rotator cuff tear 05/24/2017 10/11/2017 Overview: Added automatically from request for surgery [id number] Rotator cuff arthropathy, left 03/09/2017 0 10/11/2017 Overview: 2017: Tear left biceps tendon documented as of this encounter (statuses as of 11/14/2021) [facility] Narrative* Problem [...] Overview: Added automatically from request for surgery [id number] Biceps tendinopathy 05/24/2017 10/11/2017 Overview: Added automatically from request for surgery [id number] Rotator cuff tear 05/24/2017 10/11/2017 Overview: Added automatically from request for surgery [id number] Rotator cuff arthropathy, left 03/09/2017 0 10/11/2017 Overview: 2017: Tear left biceps tendon documented as of this encounter (statuses as of 11/18/2021) [facility] Narrative* Problem [...] Overview: Added automatically from request for surgery [id number] Biceps tendinopathy 05/24/2017 10/11/2017 Overview: Added automatically from request for surgery [id number] Rotator cuff tear 05/24/2017 10/11/2017 Overview: Added automatically from request for surgery [id number] Rotator cuff arthropathy, left 03/09/2017 0 10/11/2017 Overview: 2017: Tear left biceps tendon documented as of this encounter (statuses as of 12/08/2021) [facility] Narrative* Problem [...] Overview: Added automatically from request for surgery [id number] Biceps tendinopathy 05/24/2017 10/11/2017 Overview: Added automatically from request for surgery [id number] Rotator cuff tear 05/24/2017 10/11/2017 Overview: Added automatically from request for surgery [id number] Rotator cuff arthropathy, left 03/09/2017 0 10/11/2017 Overview: 2017: Tear left biceps tendon documented as of this encounter (statuses as of 12/09/2021) [facility]arr[facility]* Problem [...] Overview: Added automatically from request for surgery [id number] Biceps tendinopathy 05/24/2017 10/11/2017 Overview: Added automatically from request for surgery [id number] Rotator cuff tear 05/24/2017 10/11/2017 Overview: Added automatically from request for surgery [id number] Rotator cuff arthropathy, left 03/09/2017 0 10/11/2017 Overview: 2017: Tear left biceps tendon documented as of this encounter (statuses as of 12/09/2021) [facility]arr[facility]* Problem [...] Overview: Added automatically from request for surgery [id number] Biceps tendinopathy 05/24/2017 10/11/2017 Overview: Added automatically from request for surgery [id number] Rotator cuff tear 05/24/2017 10/11/2017 Overview: Added automatically from request for surgery [id number] Rotator cuff arthropathy, left 03/09/2017 0 10/11/2017 Overview: 2017: Tear left biceps tendon documented as of this encounter (statuses as of 12/22/2021) [facility] Narrative* Problem [...] Overview: Added automatically from request for surgery [id number] Biceps tendinopathy 05/24/2017 10/11/2017 Overview: Added automatically from request for surgery [id number] Rotator cuff tear 05/24/2017 10/11/2017 Overview: Added automatically from request for surgery [id number] Rotator cuff arthropathy, left 03/09/2017 0 10/11/2017 Overview: 2017: Tear left biceps tendon documented as of this encounter (statuses as of 12/23/2021) [facility] Narrative* Problem [...] Overview: Added automatically from request for surgery [id number] Biceps tendinopathy 05/24/2017 10/11/2017 Overview: Added automatically from request for surgery [id number] Rotator cuff tear 05/24/2017 10/11/2017 Overview: Added automatically from request for surgery [id number] Rotator cuff arthropathy, left 03/09/2017 0 10/11/2017 Overview: 2017: Tear left biceps tendon documented as of this encounter (statuses as of 12/23/2021) [facility]* Problem [...] Overview: Added automatically from request for surgery [id number] Biceps tendinopathy 05/24/2017 10/11/2017 Overview: Added automatically from request for surgery [id number] Rotator cuff tear 05/24/2017 10/11/2017 Overview: Added automatically from request for surgery [id number] Rotator cuff arthropathy, left 03/09/2017 0 10/11/2017 Overview: 2017: Tear left biceps tendon documented as of this encounter (statuses as of 12/29/2021) [facility] Narrative* Problem [...] Overview: Added automatically from request for surgery [id number] Biceps tendinopathy 05/24/2017 10/11/2017 Overview: Added automatically from request for surgery [id number] Rotator cuff tear 05/24/2017 10/11/2017 Overview: Added automatically from request for surgery [id number] Rotator cuff arthropathy, left 03/09/2017 0 10/11/2017 Overview: 2017: Tear left biceps tendon documented as of this encounter (statuses as of 12/29/2021) [facility] Narrative* Problem [...] Overview: Added automatically from request for surgery [id number] Biceps tendinopathy 05/24/2017 10/11/2017 Overview: Added automatically from request for surgery [id number] Rotator cuff tear 05/24/2017 10/11/2017 Overview: Added automatically from request for surgery [id number] Rotator cuff arthropathy, left 03/09/2017 0 10/11/2017 Overview: 2017: Tear left biceps tendon documented as of this encounter (statuses as of 01/02/2022) [facility] Narrative* Problem [...] Overview: Added automatically from request for surgery [id number] Biceps tendinopathy 05/24/2017 10/11/2017 Overview: Added automatically from request for surgery [id number] Rotator cuff tear 05/24/2017 10/11/2017 Overview: Added automatically from request for surgery [id number] Rotator cuff arthropathy, left 03/09/2017 0 10/11/2017 Overview: 2017: Tear left biceps tendon documented as of this encounter (statuses as of 01/13/2022) [facility] Narrative* Problem [...] Overview: Added automatically from request for surgery [id number] Biceps tendinopathy 05/24/2017 10/11/2017 Overview: Added automatically from request for surgery [id number] Rotator cuff tear 05/24/2017 10/11/2017 Overview: Added automatically from request for surgery [id number] Rotator cuff arthropathy, left 03/09/2017 0 10/11/2017 Overview: 2017: Tear left biceps tendon documented as of this encounter (statuses as of 01/26/2022) [facility]04-13-2021 History of Past illness Narrative* Problem [...] Overview: Added automatically from request for surgery [id number] Biceps tendinopathy 05/24/2017 10/11/2017 Overview: Added automatically from request for surgery [id number] Rotator cuff tear 05/24/2017 10/11/2017 Overview: Added automatically from request for surgery [id number] Rotator cuff arthropathy, left 03/09/2017 0 10/11/2017 Overview: 2017: Tear left biceps tendon documented as of this encounter (statuses as of 03/09/2022) [facility]04-13[facility]2021 History of Past illness Narrative* Problem [...] Overview: Added automatically from request for surgery [id number] Biceps tendinopathy 05/24/2017 10/11/2017 Overview: Added automatically from request for surgery [id number] Rotator cuff tear 05/24/2017 10/11/2017 Overview: Added automatically from request for surgery [id number] Rotator cuff arthropathy, left 03/09/2017 0 10/11/2017 Overview: 2017: Tear left biceps tendon documented as of this encounter (statuses as of 03/14/2022) [facility]2021 History of Past illness Narrative* Problem [...] Overview: Added automatically from request for surgery [id number] Biceps tendinopathy 05/24/2017 10/11/2017 Overview: Added automatically from request for surgery [id number] Rotator cuff tear 05/24/2017 10/11/2017 Overview: Added automatically from request for surgery [id number] Rotator cuff arthropathy, left 03/09/2017 0 10/11/2017 Overview: 2017: Tear left biceps tendon documented as of this encounter (statuses as of 03/26/2022) [facility]04[facility]2021 History of Past illness Narrative* Problem [...] Overview: Added automatically from request for surgery [id number] Biceps tendinopathy 05/24/2017 10/11/2017 Overview: Added automatically from request for surgery [id number] Rotator cuff tear 05/24/2017 10/11/2017 Overview: Added automatically from request for surgery [id number] Rotator cuff arthropathy, left 03/09/2017 0 10/11/2017 Overview: 2017: Tear left biceps tendon documented as of this encounter (statuses as of 04/08/2022) [facility]21 History of Past illness Narrative* Problem [...] Overview: Added automatically from request for surgery [id number] Biceps tendinopathy 05/24/2017 10/11/2017 Overview: Added automatically from request for surgery [id number] Rotator cuff tear 05/24/2017 10/11/2017 Overview: Added automatically from request for surgery [id number] Rotator cuff arthropathy, left 03/09/2017 0 10/11/2017 Overview: 2017: Tear left biceps tendon documented as of this encounter (statuses as of 04/08/2022) [facility] History of Past illness Narrative* Problem [...] Overview: Added automatically from request for surgery [id number] Biceps tendinopathy 05/24/2017 10/11/2017 Overview: Added automatically from request for surgery [id number] Rotator cuff tear 05/24/2017 10/11/2017 Overview: Added automatically from request for surgery [id number] Rotator cuff arthropathy, left 03/09/2017 0 10/11/2017 Overview: 2017: Tear left biceps tendon documented as of this encounter (statuses as of 04/10/2022) [facility] History of Past illness Narrative* Problem [...] Overview: Added automatically from request for surgery [id number] Biceps tendinopathy 05/24/2017 10/11/2017 Overview: Added automatically from request for surgery [id number] Rotator cuff tear 05/24/2017 10/11/2017 Overview: Added automatically from request for surgery [id number] Rotator cuff arthropathy, left 03/09/2017 0 10/11/2017 Overview: 2017: Tear left biceps tendon documented as of this encounter (statuses as of 04/16/2022) [facility] History of Past illness Narrative* Problem [...] Overview: Added automatically from request for surgery [id number] Biceps tendinopathy 05/24/2017 10/11/2017 Overview: Added automatically from request for surgery [id number] Rotator cuff tear 05/24/2017 10/11/2017 Overview: Added automatically from request for surgery [id number] Rotator cuff arthropathy, left 03/09/2017 0 10/11/2017 Overview: 2017: Tear left biceps tendon Sciatica 09/29/2011 04/20/2022 documented as of this encounter (statuses as of 04/20/2022) [facility] History of Past illness Narrative* Problem [...] Overview: Added automatically from request for surgery [id number] Biceps tendinopathy 05/24/2017 10/11/2017 Overview: Added automatically from request for surgery [id number] Rotator cuff tear 05/24/2017 10/11/2017 Overview: Added automatically from request for surgery [id number] Rotator cuff arthropathy, left 03/09/2017 0 10/11/2017 Overview: 2017: Tear left biceps tendon Sciatica 09/29/2011 04/20/2022 documented as of this encounter (statuses as of 04/20/2022) [facility]21 History of Past illness Narrative* Problem [...] Overview: Added automatically from request for surgery [id number] Biceps tendinopathy 05/24/2017 10/11/2017 Overview: Added automatically from request for surgery [id number] Rotator cuff tear 05/24/2017 10/11/2017 Overview: Added automatically from request for surgery [id number] Rotator cuff arthropathy, left 03/09/2017 0 10/11/2017 Overview: 2017: Tear left biceps tendon Sciatica 09/29/2011 04/20/2022 documented as of this encounter (statuses as of 05/20/2022) [facility] History of Past illness Narrative* Problem [...] Overview: Added automatically from request for surgery [id number] Biceps tendinopathy 05/24/2017 10/11/2017 Overview: Added automatically from request for surgery [id number] Rotator cuff tear 05/24/2017 10/11/2017 Overview: Added automatically from request for surgery [id number] Rotator cuff arthropathy, left 03/09/2017 0 10/11/2017 Overview: 2017: Tear left biceps tendon Sciatica 09/29/2011 04/20/2022 documented as of this encounter (statuses as of 05/20/2022) [facility] History of Past illness Narrative* Problem [...] Overview: Added automatically from request for surgery [id number] Biceps tendinopathy 05/24/2017 10/11/2017 Overview: Added automatically from request for surgery [id number] Rotator cuff tear 05/24/2017 10/11/2017 Overview: Added automatically from request for surgery [id number] Rotator cuff arthropathy, left 03/09/2017 0 10/11/2017 Overview: 2017: Tear left biceps tendon Sciatica 09/29/2011 04/20/2022 documented as of this encounter (statuses as of 05/20/2022) [facility] History of Past illness Narrative* Problem [...] Overview: Added automatically from request for surgery [id number] Biceps tendinopathy 05/24/2017 10/11/2017 Overview: Added automatically from request for surgery [id number] Rotator cuff tear 05/24/2017 10/11/2017 Overview: Added automatically from request for surgery [id number] Rotator cuff arthropathy, left 03/09/2017 0 10/11/2017 Overview: 2017: Tear left biceps tendon Sciatica 09/29/2011 04/20/2022 documented as of this encounter (statuses as of 05/22/2022) [facility] History of Past illness Narrative* Problem [...] Overview: Added automatically from request for surgery [id number] Biceps tendinopathy 05/24/2017 10/11/2017 Overview: Added automatically from request for surgery [id number] Rotator cuff tear 05/24/2017 10/11/2017 Overview: Added automatically from request for surgery [id number] Rotator cuff arthropathy, left 03/09/2017 0 10/11/2017 Overview: 2017: Tear left biceps tendon Sciatica 09/29/2011 04/20/2022 documented as of this encounter (statuses as of 05/22/2022) [facility] History of Past illness Narrative* Problem [...] Overview: Added automatically from request for surgery [id number] Biceps tendinopathy 05/24/2017 10/11/2017 Overview: Added automatically from request for surgery [id number] Rotator cuff tear 05/24/2017 10/11/2017 Overview: Added automatically from request for surgery [id number] Rotator cuff arthropathy, left 03/09/2017 0 10/11/2017 Overview: 2017: Tear left biceps tendon Sciatica 09/29/2011 04/20/2022 documented as of this encounter (statuses as of 05/25/2022) [facility] History of Past illness Narrative* Problem [...] Overview: Added automatically from request for surgery [id number] Biceps tendinopathy 05/24/2017 10/11/2017 Overview: Added automatically from request for surgery [id number] Rotator cuff tear 05/24/2017 10/11/2017 Overview: Added automatically from request for surgery [id number] Rotator cuff arthropathy, left 03/09/2017 0 10/11/2017 Overview: 2017: Tear left biceps tendon Sciatica 09/29/2011 04/20/2022 documented as of this encounter (statuses as of 06/08/2022) [facility] History of Past illness Narrative* Problem [...] Overview: Added automatically from request for surgery [id number] Biceps tendinopathy 05/24/2017 10/11/2017 Overview: Added automatically from request for surgery [id number] Rotator cuff tear 05/24/2017 10/11/2017 Overview: Added automatically from request for surgery [id number] Rotator cuff arthropathy, left 03/09/2017 0 10/11/2017 Overview: 2017: Tear left biceps tendon Sciatica 09/29/2011 04/20/2022 documented as of this encounter (statuses as of 06/09/2022) [facility] History of Past illness Narrative* Problem [...] Overview: Added automatically from request for surgery [id number] Biceps tendinopathy 05/24/2017 10/11/2017 Overview: Added automatically from request for surgery [id number] Rotator cuff tear 05/24/2017 10/11/2017 Overview: Added automatically from request for surgery [id number] Rotator cuff arthropathy, left 03/09/2017 0 10/11/2017 Overview: 2017: Tear left biceps tendon Sciatica 09/29/2011 04/20/2022 documented as of this encounter (statuses as of 06/10/2022) [facility] History of Past illness Narrative* Problem [...] Overview: Added automatically from request for surgery [id number] Biceps tendinopathy 05/24/2017 10/11/2017 Overview: Added automatically from request for surgery [id number] Rotator cuff tear 05/24/2017 10/11/2017 Overview: Added automatically from request for surgery [id number] Rotator cuff arthropathy, left 03/09/2017 0 10/11/2017 Overview: 2017: Tear left biceps tendon Sciatica 09/29/2011 04/20/2022 documented as of this encounter (statuses as of 06/25/2022) [facility] History of Past illness Narrative* Problem [...] Overview: Added automatically from request for surgery [id number] Biceps tendinopathy 05/24/2017 10/11/2017 Overview: Added automatically from request for surgery [id number] Rotator cuff tear 05/24/2017 10/11/2017 Overview: Added automatically from request for surgery [id number] Rotator cuff arthropathy, left 03/09/2017 0 10/11/2017 Overview: 2017: Tear left biceps tendon Sciatica 09/29/2011 04/20/2022 documented as of this encounter (statuses as of 07/14/2022) [facility]21 History of Past illness Narrative* Problem [...] Overview: Added automatically from request for surgery [id number] Biceps tendinopathy 05/24/2017 10/11/2017 Overview: Added automatically from request for surgery [id number] Rotator cuff tear 05/24/2017 10/11/2017 Overview: Added automatically from request for surgery [id number] Rotator cuff arthropathy, left 03/09/2017 0 10/11/2017 Overview: 2017: Tear left biceps tendon Sciatica 09/29/2011 04/20/2022 documented as of this encounter (statuses as of 09/18/2022) [facility] History of Past illness Narrative* Problem [...] Overview: Added automatically from request for surgery [id number] Biceps tendinopathy 05/24/2017 10/11/2017 Overview: Added automatically from request for surgery [id number] Rotator cuff tear 05/24/2017 10/11/2017 Overview: Added automatically from request for surgery [id number] Rotator cuff arthropathy, left 03/09/2017 0 10/11/2017 Overview: 2017: Tear left biceps tendon Sciatica 09/29/2011 04/20/2022 documented as of this encounter (statuses as of 09/24/2022) [facility] History of Past illness Narrative* Problem [...] Overview: Added automatically from request for surgery [id number] Biceps tendinopathy 05/24/2017 10/11/2017 Overview: Added automatically from request for surgery [id number] Rotator cuff tear 05/24/2017 10/11/2017 Overview: Added automatically from request for surgery [id number] Rotator cuff arthropathy, left 03/09/2017 0 10/11/2017 Overview: 2017: Tear left biceps tendon Sciatica 09/29/2011 04/20/2022 documented as of this encounter (statuses as of 09/24/2022) [facility] History of Past illness Narrative* Problem [...] Overview: Added automatically from request for surgery [id number] Biceps tendinopathy 05/24/2017 10/12/19 18 Overview: Added automatically from request for surgery [id number] Rotator cuff tear 05/24/2017 10/11/2017 Overview: Added automatically from request for surgery [id number] Rotator cuff arthropathy, left 03/09/2017 10/11/2017 Overview: 2017: Tear left biceps tendon Sciatica 09/29/2011 04/20/2022 documented as of this encounter (statuses as of 10/01/2022) [facility] History of Past illness Narrative* Problem [...] Overview: Added automatically from request for surgery [id number] Biceps tendinopathy 05/24/2017 10/12/19 18 Overview: Added automatically from request for surgery [id number] Rotator cuff tear 05/24/2017 10/11/2017 Overview: Added automatically from request for surgery [id number] Rotator cuff arthropathy, left 03/09/2017 10/11/2017 Overview: 2017: Tear left biceps tendon Sciatica 09/29/2011 04/20/2022 documented as of this encounter (statuses as of 10/01/2022) [facility] History of Past illness Narrative* Problem [...] Overview: Added automatically from request for surgery [id number] Biceps tendinopathy 05/24/2017 10/12/19 18 Overview: Added automatically from request for surgery [id number] Rotator cuff tear 05/24/2017 10/11/2017 Overview: Added automatically from request for surgery [id number] Rotator cuff arthropathy, left 03/09/2017 10/11/2017 Overview: 2017: Tear left biceps tendon Sciatica 09/29/2011 04/20/2022 documented as of this encounter (statuses as of 11/20/2022) [facility] History of Past illness Narrative* Problem Noted Date Diagnosed Date Resolved Date Elevated SGOT (AST) 07/02/2020 10/12/19 21 Colon cancer screening 04/12/202010/11 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 04/11/2020 12/22/2021 Recurrent depression 12/26/2019 Last Assessment & Plan: Assessment: following psych, [...] Overview: Added automatically from request for surgery [id number] Biceps tendinopathy 05/24/2017 10/12/19 18 Overview: Added automatically from request for surgery [id number] Rotator cuff tear 05/24/2017 10/11/2017 Overview: Added automatically from request for surgery [id number] Rotator cuff arthropathy, left 03/09/2017 10/11/2017 Overview: 2017: Tear left biceps tendon Sciatica 09/29/2011 04/20/2022 documented as of this encounter (statuses as of 12/08/2022) [facility] History of Past illness Narrative* Problem Noted Date Diagnosed Date Resolved Date Elevated SGOT (AST) 07/02/2020 10/12/19 Colon cancer screening 04/12/202010/11 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 04/11/2020 12/22/2021 Recurrent depression 12/26/2019 Last Assessment & Plan: Assessment: following psych, [...] Overview: Added automatically from request for surgery [id number] Biceps tendinopathy 05/24/2017 10/12/19 18 Overview: Added automatically from request for surgery [id number] Rotator cuff tear 05/24/2017 10/11/2017 Overview: Added automatically from request for surgery [id number] Rotator cuff arthropathy, left 03/09/2017 10/11/2017 Overview: 2017: Tear left biceps tendon Sciatica 09/29/2011 04/20/2022 documented as of this encounter (statuses as of 12/16/2022) [facility] History of Past illness Narrative* Problem [...] Overview: Added automatically from request for surgery [id number] Biceps tendinopathy 05/24/2017 10/12/19 18 Overview: Added automatically from request for surgery [id number] Rotator cuff tear 05/24/2017 10/11/2017 Overview: Added automatically from request for surgery [id number] Rotator cuff arthropathy, left 03/09/2017 10/11/2017 Overview: 2017: Tear left biceps tendon Sciatica 09/29/2011 04/20/2022 documented as of this encounter (statuses as of 01/19/2023) [facility] History of Past illness Narrative* Problem [...] Overview: Added automatically from request for surgery [id number] Biceps tendinopathy 05/24/2017 10/12/19 18 Overview: Added automatically from request for surgery [id number] Rotator cuff tear 05/24/2017 10/11/2017 Overview: Added automatically from request for surgery [id number] Rotator cuff arthropathy, left 03/09/2017 10/11/2017 Overview: 2017: Tear left biceps tendon Sciatica 09/29/2011 04/20/2022 documented as of this encounter (statuses as of 01/23/2023) [facility] History of Past illness Narrative* Problem [...] Overview: Added automatically from request for surgery [id number] Biceps tendinopathy 05/24/2017 10/12/19 18 Overview: Added automatically from request for surgery [id number] Rotator cuff tear 05/24/2017 10/11/2017 Overview: Added automatically from request for surgery [id number] Rotator cuff arthropathy, left 03/09/2017 10/11/2017 Overview: 2017: Tear left biceps tendon Sciatica 09/29/2011 04/20/2022 documented as of this encounter (statuses as of 02/10/2023) [facility] History of Past illness Narrative* Problem [...] Overview: Added automatically from request for surgery [id number] Biceps tendinopathy 05/24/2017 10/12/19 18 Overview: Added automatically from request for surgery [id number] Rotator cuff tear 05/24/2017 10/11/2017 Overview: Added automatically from request for surgery [id number] Rotator cuff arthropathy, left 03/09/2017 10/11/2017 Overview: 2017: Tear left biceps tendon Sciatica 09/29/2011 04/20/2022 documented as of this encounter (statuses as of 02/17/2023) [facility] History of Past illness Narrative* Problem [...] Overview: Added automatically from request for surgery [id number] Biceps tendinopathy 05/24/2017 10/12/19 18 Overview: Added automatically from request for surgery [id number] Rotator cuff tear 05/24/2017 10/11/2017 Overview: Added automatically from request for surgery [id number] Rotator cuff arthropathy, left 03/09/2017 10/11/2017 Overview: 2017: Tear left biceps tendon Sciatica 09/29/2011 04/20/2022 documented as of this encounter (statuses as of 02/18/2023) [facility] History of Past illness Narrative* Problem [...] Overview: Added automatically from request for surgery [id number] Biceps tendinopathy 05/24/2017 10/12/19 18 Overview: Added automatically from request for surgery [id number] Rotator cuff tear 05/24/2017 10/11/2017 Overview: Added automatically from request for surgery [id number] Rotator cuff arthropathy, left 03/09/2017 10/11/2017 Overview: 2017: Tear left biceps tendon Sciatica 09/29/2011 04/20/2022 documented as of this encounter (statuses as of 02/18/2023) [facility] History of Past illness Narrative* Problem [...] Overview: Added automatically from request for surgery [id number] Biceps tendinopathy 05/24/2017 10/12/19 18 Overview: Added automatically from request for surgery [id number] Rotator cuff tear 05/24/2017 10/11/2017 Overview: Added automatically from request for surgery [id number] Rotator cuff arthropathy, left 03/09/2017 10/11/2017 Overview: 2017: Tear left biceps tendon Sciatica 09/29/2011 04/20/2022 documented as of this encounter (statuses as of 02/18/2023) [facility] History of Past illness Narrative* Problem [...] Overview: Added automatically from request for surgery [id number] Biceps tendinopathy 05/24/2017 10/12/19 18 Overview: Added automatically from request for surgery [id number] Rotator cuff tear 05/24/2017 10/11/2017 Overview: Added automatically from request for surgery [id number] Rotator cuff arthropathy, left 03/09/2017 10/11/2017 Overview: 2017: Tear left biceps tendon Sciatica 09/29/2011 04/20/2022 documented as of this encounter (statuses as of 03/05/2023) [facility] History of Past illness Narrative* Problem [...] Overview: Added automatically from request for surgery [id number] Biceps tendinopathy 05/24/2017 10/12/19 18 Overview: Added automatically from request for surgery [id number] Rotator cuff tear 05/24/2017 10/11/2017 Overview: Added automatically from request for surgery [id number] Rotator cuff arthropathy, left 03/09/2017 10/11/2017 Overview: 2017: Tear left biceps tendon Sciatica 09/29/2011 04/20/2022 documented as of this encounter (statuses as of 05/11/2023) [facility] History of Past illness Narrative* Problem [...] Overview: Added automatically from request for surgery [id number] Biceps tendinopathy 05/24/2017 10/12/19 18 Overview: Added automatically from request for surgery [id number] Rotator cuff tear 05/24/2017 10/11/2017 Overview: Added automatically from request for surgery [id number] Rotator cuff arthropathy, left 03/09/2017 10/11/2017 Overview: 2017: Tear left biceps tendon Sciatica 09/29/2011 04/20/2022 documented as of this encounter (statuses as of 05/20/2023) [facility] History of Past illness Narrative* Problem [...] Overview: Added automatically from request for surgery [id number] Biceps tendinopathy 05/24/2017 10/12/19 18 Overview: Added automatically from request for surgery [id number] Rotator cuff tear 05/24/2017 10/11/2017 Overview: Added automatically from request for surgery [id number] Rotator cuff arthropathy, left 03/09/2017 10/11/2017 Overview: 2017: Tear left biceps tendon Sciatica 09/29/2011 04/20/2022 documented as of this encounter (statuses as of 05/24/2023) [facility] History of Past illness Narrative* Problem [...] Overview: Added automatically from request for surgery [id number] Biceps tendinopathy 05/24/2017 10/12/19 18 Overview: Added automatically from request for surgery [id number] Rotator cuff tear 05/24/2017 10/11/2017 Overview: Added automatically from request for surgery [id number] Rotator cuff arthropathy, left 03/09/2017 10/11/2017 Overview: 2017: Tear left biceps tendon Sciatica 09/29/2011 04/20/2022 documented as of this encounter (statuses as of 06/07/2023) [facility] History of Past illness Narrative* Problem [...] Overview: Added automatically from request for surgery [id number] Biceps tendinopathy 05/24/2017 10/12/19 18 Overview: Added automatically from request for surgery [id number] Rotator cuff tear 05/24/2017 10/11/2017 Overview: Added automatically from request for surgery [id number] Rotator cuff arthropathy, left 03/09/2017 10/11/2017 Overview: 2017: Tear left biceps tendon Sciatica 09/29/2011 04/20/2022 documented as of this encounter (statuses as of 06/09/2023) [facility] History of Past illness Narrative* Problem [...] Overview: Added automatically from request for surgery [id number] Biceps tendinopathy 05/24/2017 10/12/19 18 Overview: Added automatically from request for surgery [id number] Rotator cuff tear 05/24/2017 10/11/2017 Overview: Added automatically from request for surgery [id number] Rotator cuff arthropathy, left 03/09/2017 10/11/2017 Overview: 2017: Tear left biceps tendon Sciatica 09/29/2011 04/20/2022 documented as of this encounter (statuses as of 06/14/2023) [facility] of Past illness Narrative* Problem [...] Overview: Added automatically from request for surgery [id number] Biceps tendinopathy 05/24/2017 10/12/19 18 Overview: Added automatically from request for surgery [id number] Rotator cuff tear 05/24/2017 10/11/2017 Overview: Added automatically from request for surgery [id number] Rotator cuff arthropathy, left 03/09/2017 10/11/2017 Overview: 2017: Tear left biceps tendon Sciatica 09/29/2011 04/20/2022 documented as of this encounter (statuses as of 06/16/2023) [facility] History of Past illness Narrative* Problem Noted Date Diagnosed Date Resolved Date Elevated SGOT (AST) 07/02/2020 10/12/19 21 Colon cancer screening 04/12/202010/11 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 04/11/2020 12/22/2021 Recurrent depression 12/26/2019 Last Assessment & Plan: Assessment: following psych, [...] Overview: Added automatically from request for surgery [id number] Biceps tendinopathy 05/24/2017 10/12/19 18 Overview: Added automatically from request for surgery [id number] Rotator cuff tear 05/24/2017 10/11/2017 Overview: Added automatically from request for surgery [id number] Rotator cuff arthropathy, left 03/09/2017 10/11/2017 Overview: 2017: Tear left biceps tendon Sciatica 09/29/2011 04/20/2022 documented as of this encounter (statuses as of 06/16/2023) [facility]21 History of Past illness Narrative* Problem Noted Date Diagnosed Date Resolved Date Elevated SGOT (AST) 07/02/2020 10/12/19 Colon cancer screening 04/12/202010/11 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 04/11/2020 12/22/2021 Recurrent depression 12/26/2019 Last Assessment & Plan: Assessment: following psych, [...] Overview: Added automatically from request for surgery [id number] Biceps tendinopathy 05/24/2017 10/12/19 18 Overview: Added automatically from request for surgery [id number] Rotator cuff tear 05/24/2017 10/11/2017 Overview: Added automatically from request for surgery [id number] Rotator cuff arthropathy, left 03/09/2017 10/11/2017 Overview: 2017: Tear left biceps tendon Sciatica 09/29/2011 04/20/2022 documented as of this encounter (statuses as of 06/22/2023) [facility] History of Past illness Narrative* Problem [...] Overview: Added automatically from request for surgery [id number] Biceps tendinopathy 05/24/2017 10/12/19 18 Overview: Added automatically from request for surgery [id number] Rotator cuff tear 05/24/2017 10/11/2017 Overview: Added automatically from request for surgery [id number] Rotator cuff arthropathy, left 03/09/2017 10/11/2017 Overview: 2017: Tear left biceps tendon Sciatica 09/29/2011 04/20/2022 documented as of this encounter (statuses as of 06/22/2023) [facility] History of Past illness Narrative* Problem [...] Overview: Added automatically from request for surgery [id number] Biceps tendinopathy 05/24/2017 10/12/19 18 Overview: Added automatically from request for surgery [id number] Rotator cuff tear 05/24/2017 10/11/2017 Overview: Added automatically from request for surgery [id number] Rotator cuff arthropathy, left 03/09/2017 10/11/2017 Overview: 2017: Tear left biceps tendon Sciatica 09/29/2011 04/20/2022 documented as of this encounter (statuses as of 06/23/2023) [facility] History of Past illness Narrative* Problem [...] Overview: Added automatically from request for surgery [id number] Biceps tendinopathy 05/24/2017 10/12/19 18 Overview: Added automatically from request for surgery [id number] Rotator cuff tear 05/24/2017 10/11/2017 Overview: Added automatically from request for surgery [id number] Rotator cuff arthropathy, left 03/09/2017 10/11/2017 Overview: 2017: Tear left biceps tendon Sciatica 09/29/2011 04/20/2022 documented as of this encounter (statuses as of 06/23/2023) [facility] History of Past illness Narrative* Problem [...] Overview: Added automatically from request for surgery [id number] Biceps tendinopathy 05/24/2017 10/12/19 18 Overview: Added automatically from request for surgery [id number] Rotator cuff tear 05/24/2017 10/11/2017 Overview: Added automatically from request for surgery [id number] Rotator cuff arthropathy, left 03/09/2017 10/11/2017 Overview: 2017: Tear left biceps tendon Sciatica 09/29/2011 04/20/2022 documented as of this encounter (statuses as of 06/25/2023) [facility] History of Past illness Narrative* Problem [...] Overview: Added automatically from request for surgery [id number] Biceps tendinopathy 05/24/2017 10/12/19 18 Overview: Added automatically from request for surgery [id number] Rotator cuff tear 05/24/2017 10/11/2017 Overview: Added automatically from request for surgery [id number] Rotator cuff arthropathy, left 03/09/2017 10/11/2017 Overview: 2017: Tear left biceps tendon Sciatica 09/29/2011 04/20/2022 documented as of this encounter (statuses as of 06/27/2023) [facility] History of Past illness Narrative* Problem [...] Overview: Added automatically from request for surgery [id number] Biceps tendinopathy 05/24/2017 10/12/19 18 Overview: Added automatically from request for surgery [id number] Rotator cuff tear 05/24/2017 10/11/2017 Overview: Added automatically from request for surgery [id number] Rotator cuff arthropathy, left 03/09/2017 10/11/2017 Overview: 2017: Tear left biceps tendon Sciatica 09/29/2011 04/20/2022 documented as of this encounter (statuses as of 06/28/2023) [facility] History of Past illness Narrative* Problem [...] Overview: Added automatically from request for surgery [id number] Biceps tendinopathy 05/24/2017 10/12/19 18 Overview: Added automatically from request for surgery [id number] Rotator cuff tear 05/24/2017 10/11/2017 Overview: Added automatically from request for surgery [id number] Rotator cuff arthropathy, left 03/09/2017 10/11/2017 Overview: 2017: Tear left biceps tendon Sciatica 09/29/2011 04/20/2022 documented as of this encounter (statuses as of 07/01/2023) [facility] History of Past illness Narrative* Problem [...] Overview: Added automatically from request for surgery [id number] Biceps tendinopathy 05/24/2017 10/12/19 18 Overview: Added automatically from request for surgery [id number] Rotator cuff tear 05/24/2017 10/11/2017 Overview: Added automatically from request for surgery [id number] Rotator cuff arthropathy, left 03/09/2017 10/11/2017 Overview: 2017: Tear left biceps tendon Sciatica 09/29/2011 04/20/2022 documented as of this encounter (statuses as of 07/01/2023) [facility] History of Past illness Narrative* Problem [...] Overview: Added automatically from request for surgery [id number] Biceps tendinopathy 05/24/2017 10/12/19 18 Overview: Added automatically from request for surgery [id number] Rotator cuff tear 05/24/2017 10/11/2017 Overview: Added automatically from request for surgery [id number] Rotator cuff arthropathy, left 03/09/2017 10/11/2017 Overview: 2017: Tear left biceps tendon Sciatica 09/29/2011 04/20/2022 documented as of this encounter (statuses as of 07/02/2023) [facility] History of Past illness Narrative* Problem [...] Overview: Added automatically from request for surgery [id number] Biceps tendinopathy 05/24/2017 10/12/19 18 Overview: Added automatically from request for surgery [id number] Rotator cuff tear 05/24/2017 10/11/2017 Overview: Added automatically from request for surgery [id number] Rotator cuff arthropathy, left 03/09/2017 10/11/2017 Overview: 2017: Tear left biceps tendon Sciatica 09/29/2011 04/20/2022 documented as of this encounter (statuses as of 07/06/2023) [facility] History of Past illness Narrative* Problem [...] Overview: Added automatically from request for surgery [id number] Biceps tendinopathy 05/24/2017 10/12/19 18 Overview: Added automatically from request for surgery [id number] Rotator cuff tear 05/24/2017 10/11/2017 Overview: Added automatically from request for surgery [id number] Rotator cuff arthropathy, left 03/09/2017 10/11/2017 Overview: 2017: Tear left biceps tendon Sciatica 09/29/2011 04/20/2022 documented as of this encounter (statuses as of 07/07/2023) [facility] History of Past illness Narrative* Problem [...] Overview: Added automatically from request for surgery [id number] Biceps tendinopathy 05/24/2017 10/12/19 18 Overview: Added automatically from request for surgery [id number] Rotator cuff tear 05/24/2017 10/11/2017 Overview: Added automatically from request for surgery [id number] Rotator cuff arthropathy, left 03/09/2017 10/11/2017 Overview: 2017: Tear left biceps tendon Sciatica 09/29/2011 04/20/2022 documented as of this encounter (statuses as of 07/07/2023) [facility] History of Past illness Narrative* Problem [...] Overview: Added automatically from request for surgery [id number] Biceps tendinopathy 05/24/2017 10/12/19 18 Overview: Added automatically from request for surgery [id number] Rotator cuff tear 05/24/2017 10/11/2017 Overview: Added automatically from request for surgery [id number] Rotator cuff arthropathy, left 03/09/2017 10/11/2017 Overview: 2017: Tear left biceps tendon Sciatica 09/29/2011 04/20/2022 documented as of this encounter (statuses as of 06/25/2023) [facility] Kailee Parker [facility] March 29, 2023 2:21pm Note Date/Time March 29, 2023 2: 21[facility] Medical Records Department [address] [place] [address] Counseling Note - Pharmacy 03/29/23 1420 MR#: [id number] Acct: [id number] Name: PARKER YI Rep #:[id number] : 1950 72 From: Kailee Parker PCP: Dr. Davis May MD Status:ADM I N Y Location: [place] [address] Pharmacy [facility] has performed discharge medication reconciliation and counseling for this patient. 1. PANTOPRAZOLE 40MG PO BID X 2 MONTHS, THEN DAILY THEREAFTER The patient's discharge medication list was reviewed for discrepancies and discrepancies were resolved. The patient was counseled on the following discharge medications and changes in medications for homegoing were reviewed. The Reason for Use, instructions for use, and potential side effects were reviewed for all new medications. The patient's questions regarding all of their medications were answered. The patient was able to verbally demonstrate an understanding of their dischargemedications. Medications at Discharge Home Medications clonidine HCl 0.1 mg tablet 1.5 tab PO BID 08/20/19 tacrolimus 1 mg capsule, immediate-release 1 mg PO BID supplement 08/20/19 amlodipine 5 mg tablet 5 mg PO DAILY blood pressure 03/27/23 metoprolol succinate 100 mg tablet,extended release 24 hr 100 mg PO Q12H heart 03/27/23 mycophenolate mofetil 500 mg tablet (CellCept) 500 mg PO BID organ rejection 03/27/23 probenecid 500 mg tablet 500 mg PO BID gout 03/27/23 pantoprazole 40 mg tablet,delayed release (Protonix) 40 mg PO BID #60 tabs 03/29/23 03/29/23 1421 <Electronically signed by Kailee Parker> Date _ Kailee Parker 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 Signature (if applicable): Date CC: ~ Signed [facility] Work Phone: Evaluation note* Diagnosis Autoimmune hepatitis (HCC)- Primary Autoimmune hepatitis Hepatic sclerosis Unspecified chronic liver disease without mention of alcohol [facility] Diagnosis Liver lesion- Primary Other specified disorders of liver [facility] Diagnosis Autoimmune hepatitis (HCC) Autoimmune hepatitis [facility] Diagnosis Liver lesion Other specified disorders of liver [facility] Diagnosis Acute gout involving toe of right foot, unspecified cause [facility] Diagnosis Prophylactic antibiotic Encounter for long-term (current) use of antibiotics [facility] Diagnosis Autoimmune hepatitis (HCC)- Primary Autoimmune hepatitis Liver disease, unspecified [facility] Diagnosis Autoimmune hepatitis treated with steroids [...] Other abnormal glucose [facility]* Diagnosis Type 2 diabetes mellitus without complication, unspecified whether fci insulin use (HCC) [facility]* Diagnosis Hypertrophic obstructive cardiomyopathy (HOCM) (HCC)- Primary Hypertrophic obstructive cardiomyopathy Essential hypertension Unspecified essential hypertension Hyperlipidemia LDL goal <100 Other and unspecified hyperlipidemia S/P ICD (internal cardiac defibrillator) procedure Automatic implantable cardiac defibrillator in situ Venous insufficiency Unspecified venous (peripheral) insufficiency [facility]* Diagnosis Acute gout involving toe of right foot, unspecified cause [facility]* Diagnosis Controlled type 2 diabetes mellitus without complication, without long-term current use of insulin (HCC)- Primary [facility] Diagnosis Hyperlipidemia LDL goal <100- Primary [...] stated as uncontrolled [facility] Diagnosis Portal vein thrombosis Hypertrophic obstructive cardiomyopathy (HOCM) (HCC) Hypertrophic obstructive cardiomyopathy Type 2 diabetes mellitus treated with insulin (HCC) Type II or unspecified type diabetes mellitus without mention of complication, not stated as uncontrolled [facility] noteNo assessment information availableWCleveland [facility] Work Phone: Evaluation note* Diagnosis Prophylactic antibiotic Encounter for long-term (current) use of antibiotics [facility]* Diagnosis Portal vein thrombosis Hypertrophic obstructive cardiomyopathy (HOCM) (HCC) Hypertrophic obstructive cardiomyopathy Type 2 diabetes mellitus treated with insulin (HCC) Type II or unspecified type diabetes mellitus without mention of complication, not stated as uncontrolled [facility] Diagnosis Prophylactic antibiotic Encounter for long-term (current) use of antibiotics [facility]* Diagnosis Autoimmune hepatitis (HCC) Autoimmune hepatitis [facility]* Diagnosis Hypertrophic obstructive cardiomyopathy (HOCM) (HCC)- Primary Hypertrophic obstructive cardiomyopathy Hyperlipidemia LDL goal <100 Other and unspecified hyperlipidemia Portal vein thrombosis Hepatic cirrhosis, unspecified hepatic cirrhosis type, unspecified whether ascites present (HCC) Controlled type 2 diabetes mellitus without complication, unspecified whether fci insulin use (HCC) Thrombocytopenia (HCC) Thrombocytopenia, unspecified Throat clearing Other symptoms involving head and neck Oral bleeding Other and unspecified diseases of the oral soft tissues [facility] Diagnosis HOCM (hypertrophic obstructive cardiomyopathy) (HCC)- Primary Hypertrophic obstructive cardiomyopathy [facility] Diagnosis HOCM (hypertrophic obstructive cardiomyopathy) (HCC)- Primary Hypertrophic obstructive cardiomyopathy [facility]* Diagnosis Acute gout involving toe of right foot, unspecified cause [facility] Diagnosis Vocal cord nodule- Primary Other diseases of vocal cords Throat clearing Other symptoms involving head and neck Oral bleeding Other and unspecified diseases of the oral soft tissues Gastroesophageal reflux disease, unspecified whether esophagitis present [facility] Diagnosis Chronic insomnia Insomnia, unspecified [facility]* Diagnosis Hypertrophic obstructive cardiomyopathy (HOCM) (HCC)- Primary Hypertrophic obstructive cardiomyopathy S/P ICD (internal cardiac defibrillator) procedure Automatic implantable cardiac defibrillator in situ Hyperlipidemia LDL goal <100 Other and unspecified hyperlipidemia Venous insufficiency Unspecified venous (peripheral) insufficiency Primary hypertension Unspecified essential hypertension [facility]* Diagnosis Autoimmune hepatitis (HCC) Autoimmune hepatitis [facility] Autoimmune [facility] ([facility]CC)- Primary Autoimmune hepatitis Controlled type 2 diabetes mellitus without complication, unspecified whether oysterman insulin use (HCC) Elevated LFTs Other abnormal blood chemistry [facility]* Diagnosis Poorly controlled type 2 diabetes mellitus (HCC)- Primary Type II or unspecified type diabetes mellitus without mention of complication, not stated as uncontrolled [facility]* Diagnosis Acute gout involving toe of right foot, unspecified cause [facility]* Diagnosis Combined forms of age-related cataract [...] venous (peripheral) insufficiency [facility] Diagnosis Autoimmune hepatitis (HCC) [K75.4]- Primary Autoimmune hepatitis [facility]* Diagnosis Autoimmune hepatitis (HCC) Autoimmune hepatitis Examination of participant in clinical trial- Primary [facility]* Diagnosis Liver lesion- Primary Other specified disorders of liver Examination of participant in clinical trial- Primary [facility] Diagnosis Examination of participant in clinical trial- Primary [facility]* Diagnosis Onset Date Resolution Status Acute upper gastrointestinal bleeding acute Anemia acute Autoimmune hepatitis acute Diarrhea acute History of immunosuppression therapy acute Thrombocytopenia acute [facility] Work Phone: Evaluation note* Diagnosis Onset Date Resolution Status Acute upper gastrointestinal bleeding acute Anemia acute Elevated serum creatinine ac hoopa Esophageal varices acute [facility] Work Phone: Evaluation note* Diagnosis AK (actinic keratosis)- Primary Actinic keratosis Seborrheic keratosis Other seborrheic keratosis Henirquez angioma Nevus, non-neoplastic Multiple benign nevi Benign neoplasm of skin, site unspecified Lentigines Other dyschromia Neoplasm of unspecified behavior of bone, soft tissue, and skin [facility]* Diagnosis Acute gout involving toe of right foot, unspecified cause [facility]* Diagnosis Autoimmune hepatitis (HCC)- Primary Autoimmune hepatitis Iron deficiency anemia due to chronic blood loss Iron deficiency anemia secondary to blood loss (chronic) Hepatic sclerosis Unspecified chronic liver disease without mention of alcohol [facility]* Diagnosis Iron deficiency anemia due to chronic blood loss Iron deficiency anemia secondary to blood loss (chronic) [facility]* Diagnosis AK (actinic keratosis)- Primary Actinic keratosis [facility]* Diagnosis Iron deficiency anemia due to chronic blood loss- Primary Iron deficiency anemia secondary to blood loss (chronic) Thrombocytopenia (HCC) Thrombocytopenia, unspecified [facility]* Diagnosis Iron deficiency anemia due to chronic blood loss- Primary Iron deficiency anemia secondary to blood loss (chronic) Thrombocytopenia (HCC) Thrombocytopenia, unspecified [facility] Diagnosis Iron deficiency anemia due to chronic blood loss- Primary Iron deficiency anemia secondary to blood loss (chronic) Thrombocytopenia (HCC) Thrombocytopenia, unspecified [facility]* Diagnosis Dark stools Nonspecific abnormal finding in stool contents [facility]* Diagnosis S/P ICD (internal cardiac defibrillator) procedure- Primary Automatic implantable cardiac defibrillator in situ Hypertrophic obstructive cardiomyopathy (HOCM) (HCC) Hypertrophic obstructive cardiomyopathy Hyperlipidemia LDL goal <100 Other and unspecified hyperlipidemia Primary hypertension Unspecified essential hypertension Hepatic cirrhosis, unspecified hepatic cirrhosis type, unspecified whether ascites present (HCC) Portal vein thrombosis Controlled type 2 diabetes mellitus without complication, unspecified whether fci insulin use (HCC) Thrombocytopenia (HCC) Thrombocytopenia, unspecified Iron deficiency anemia due to chronic blood loss Iron deficiency anemia secondary to blood loss (chronic) [facility] Iron deficiency anemia due to chronic blood loss- Primary Iron deficiency anemia secondary to blood loss (chronic) Thrombocytopenia (HCC) Thrombocytopenia, unspecified [facility] Diagnosis Autoimmune hepatitis (HCC)- Primary Autoimmune hepatitis [facility] Diagnosis Iron deficiency anemia due to chronic blood loss- Primary Iron deficiency anemia secondary to blood loss (chronic) Thrombocytopenia (HCC) Thrombocytopenia, unspecified [facility] Diagnosis Examination of participant in clinical trial- Primary [facility]* Diagnosis Autoimmune hepatitis (HCC)- Primary Autoimmune hepatitis [facility] Diagnosis Iron deficiency anemia due to chronic blood loss Iron deficiency anemia secondary to blood loss (chronic) [facility] Diagnosis Examination of participant in clinical trial- Primary [facility] Diagnosis Autoimmune hepatitis (HCC)- Primary Autoimmune hepatitis Encounter for screening for osteoporosis Special screening for osteoporosis Liver disease Unspecified disorder of liver Localized osteoporosis ([place]) Portal hypertension with esophageal varices (HCC) Portal hypertension [facility] Diagnosis Hypertrophic obstructive cardiomyopathy (HOCM) (HCC)- Primary Hypertrophic obstructive cardiomyopathy Other chest pain Primary hypertension Unspecified essential hypertension Hyperlipidemia LDL goal <100 Other and unspecified hyperlipidemia Venous insufficiency Unspecified venous (peripheral) insufficiency S/P ICD (internal cardiac defibrillator) procedure Automatic implantable cardiac defibrillator in situ [facility] Diagnosis Controlled type 2 diabetes mellitus without complication, unspecified whether oysterman insulin use (HCC)- Primary [facility] Diagnosis AK (actinic keratosis)- Primary Actinic keratosis [facility] [facility]* Diagnosis Pre-operative examination- Primary Preoperative examination, unspecified Colon cancer screening Special screening for malignant neoplasms, colon Thrombocytopenia (HCC) Thrombocytopenia, unspecified Hypertrophic obstructive cardiomyopathy (HOCM) (HCC) Hypertrophic obstructive cardiomyopathy Type 2 diabetes mellitus without complication, unspecified whether fci insulin use (HCC) Essential hypertension Unspecified essential hypertension Hyperlipidemia LDL goal <100 Other and unspecified hyperlipidemia Venous insufficiency Unspecified venous (peripheral) insufficiency Autoimmune hepatitis treated with steroids (HCC) Autoimmune hepatitis Portal vein thrombosis Chronic insomnia Insomnia, unspecified Recurrent depression (HCC) Major depressive disorder, recurrent episode, unspecified DDD (degenerative disc disease), lumbar Degeneration of lumbar or lumbosacral intervertebral disc Portal vein thrombosis [facility] Diagnosis Pre-operative examination- Primary Preoperative examination, unspecified Colon cancer screening Special screening for malignant neoplasms, colon Thrombocytopenia (HCC) Thrombocytopenia, unspecified Hypertrophic obstructive cardiomyopathy (HOCM) (HCC) Hypertrophic obstructive cardiomyopathy Type 2 diabetes mellitus without complication, unspecified whether oysterman insulin use (HCC) Essential hypertension Unspecified essential hypertension Hyperlipidemia LDL goal <100 Other and unspecified hyperlipidemia Venous insufficiency Unspecified venous (peripheral) insufficiency Autoimmune hepatitis treated with steroids (HCC) Autoimmune hepatitis Portal vein thrombosis Chronic insomnia Insomnia, unspecified Recurrent depression (HCC) Major depressive disorder, recurrent episode, unspecified DDD (degenerative disc disease), lumbar Degeneration of lumbar or lumbosacral intervertebral disc Iron deficiency anemia due to chronic blood loss- Primary Iron deficiency anemia secondary to blood loss (chronic) [facility] Diagnosis Pre-operative examination- Primary Preoperative examination, unspecified Colon cancer screening Special screening for malignant neoplasms, colon Thrombocytopenia (HCC) Thrombocytopenia, unspecified Hypertrophic obstructive cardiomyopathy (HOCM) (HCC) Hypertrophic obstructive cardiomyopathy Type 2 diabetes mellitus without complication, unspecified whether fci insulin use (HCC) Essential hypertension Unspecified essential hypertension Hyperlipidemia LDL goal <100 Other and unspecified hyperlipidemia Venous insufficiency Unspecified venous (peripheral) insufficiency Autoimmune hepatitis treated with steroids (HCC) Autoimmune hepatitis Portal vein thrombosis Chronic insomnia Insomnia, unspecified Recurrent depression (HCC) Major depressive disorder, recurrent episode, unspecified DDD (degenerative disc disease), lumbar Degeneration of lumbar or lumbosacral intervertebral disc DDD (degenerative disc disease), cervical Degeneration of cervical intervertebral disc Foot pain, right Pain in limb documented in this encounter [facility] note* Diagnosis Pre-operative examination- Primary Preoperative examination, unspecified Colon cancer screening Special screening for malignant neoplasms, colon Thrombocytopenia (HCC) Thrombocytopenia, unspecified Hypertrophic obstructive cardiomyopathy (HOCM) (HCC) Hypertrophic obstructive cardiomyopathy Type 2 diabetes mellitus without complication, unspecified whether fci insulin use (HCC) Essential hypertension Unspecified essential hypertension Hyperlipidemia LDL goal <100 Other and unspecified hyperlipidemia Venous insufficiency Unspecified venous (peripheral) insufficiency Autoimmune hepatitis treated with steroids (HCC) Autoimmune hepatitis Portal vein thrombosis Chronic insomnia Insomnia, unspecified Recurrent depression (HCC) Major depressive disorder, recurrent episode, unspecified DDD (degenerative disc disease), lumbar Degeneration of lumbar or lumbosacral intervertebral disc Acute gout involving toe of right foot, unspecified cause [facility] Diagnosis Pre-operative examination- Primary Preoperative examination, unspecified Colon cancer screening Special screening for malignant neoplasms, colon Thrombocytopenia (HCC) Thrombocytopenia, unspecified Hypertrophic obstructive cardiomyopathy (HOCM) (HCC) Hypertrophic obstructive cardiomyopathy Type 2 diabetes mellitus without complication, unspecified whether fci insulin use (HCC) Essential hypertension Unspecified essential hypertension Hyperlipidemia LDL goal <100 Other and unspecified hyperlipidemia Venous insufficiency Unspecified venous (peripheral) insufficiency Autoimmune hepatitis treated with steroids (HCC) Autoimmune hepatitis Portal vein thrombosis Chronic insomnia Insomnia, unspecified Recurrent depression (HCC) Major depressive disorder, recurrent episode, unspecified DDD (degenerative disc disease), lumbar Degeneration of lumbar or lumbosacral intervertebral disc Hypertrophic obstructive cardiomyopathy (HOCM) (HCC)- Primary Hypertrophic obstructive cardiomyopathy Primary hypertension Unspecified essential hypertension Hyperlipidemia LDL goal <100 Other and unspecified hyperlipidemia S/P ICD (internal cardiac defibrillator) procedure Automatic implantable cardiac defibrillator in situ Hepatic cirrhosis, unspecified hepatic cirrhosis type, unspecified whether ascites present (HCC) Portal vein thrombosis Controlled type 2 diabetes mellitus without complication, unspecified whether fci insulin use (HCC) Thrombocytopenia (HCC) Thrombocytopenia, unspecified Iron deficiency anemia due to chronic blood loss Iron deficiency anemia secondary to blood loss (chronic) documented in this encounter [facility] note* Diagnosis Pre-operative examination- Primary Preoperative examination, unspecified Colon cancer screening Special screening for malignant neoplasms, colon Thrombocytopenia (HCC) Thrombocytopenia, unspecified Hypertrophic obstructive cardiomyopathy (HOCM) (HCC) Hypertrophic obstructive cardiomyopathy Type 2 diabetes mellitus without complication, unspecified whether fci insulin use (HCC) Essential hypertension Unspecified essential hypertension Hyperlipidemia LDL goal <100 Other and unspecified hyperlipidemia Venous insufficiency Unspecified venous (peripheral) insufficiency Autoimmune hepatitis treated with steroids (HCC) Autoimmune hepatitis Portal vein thrombosis Chronic insomnia Insomnia, unspecified Recurrent depression (HCC) Major depressive disorder, recurrent episode, unspecified DDD (degenerative disc disease), lumbar Degeneration of lumbar or lumbosacral intervertebral disc AK (actinic keratosis)- Primary Actinic keratosis [facility]* Diagnosis Pre-operative examination- Primary Preoperative examination, unspecified Colon cancer screening Special screening for malignant neoplasms, colon Thrombocytopenia (HCC) Thrombocytopenia, unspecified Hypertrophic obstructive cardiomyopathy (HOCM) (HCC) Hypertrophic obstructive cardiomyopathy Type 2 diabetes mellitus without complication, unspecified whether oysterman insulin use (HCC) Essential hypertension Unspecified essential hypertension Hyperlipidemia LDL goal <100 Other and unspecified hyperlipidemia Venous insufficiency Unspecified venous (peripheral) insufficiency Autoimmune hepatitis treated with steroids (HCC) Autoimmune hepatitis Portal vein thrombosis Chronic insomnia Insomnia, unspecified Recurrent depression (HCC) Major depressive disorder, recurrent episode, unspecified DDD (degenerative disc disease), lumbar Degeneration of lumbar or lumbosacral intervertebral disc Type 2 diabetes mellitus without retinopathy (HCC)- Primary Type II or unspecified type diabetes mellitus without mention of complication, not stated as uncontrolled Combined forms of age-related cataract of both eyes Other and combined forms of senile cataract Myopia, bilateral Myopia Presbyopia Drusen of left optic disc Drusen of optic disc documented in this encounter [facility] note* Diagnosis Pre-operative examination- Primary Preoperative examination, unspecified Colon cancer screening Special screening for malignant neoplasms, colon Thrombocytopenia (HCC) Thrombocytopenia, unspecified Hypertrophic obstructive cardiomyopathy (HOCM) (HCC) Hypertrophic obstructive cardiomyopathy Type 2 diabetes mellitus without complication, unspecified whether fci insulin use (HCC) Essential hypertension Unspecified essential hypertension Hyperlipidemia LDL goal <100 Other and unspecified hyperlipidemia Venous insufficiency Unspecified venous (peripheral) insufficiency Autoimmune hepatitis treated with steroids (HCC) Autoimmune hepatitis Portal vein thrombosis Chronic insomnia Insomnia, unspecified Recurrent depression (HCC) Major depressive disorder, recurrent episode, unspecified DDD (degenerative disc disease), lumbar Degeneration of lumbar or lumbosacral intervertebral disc Portal vein thrombosis documented in this encounter [facility] note* Diagnosis Pre-operative examination- Primary Preoperative examination, unspecified Colon cancer screening Special screening for malignant neoplasms, colon Thrombocytopenia (HCC) Thrombocytopenia, unspecified Hypertrophic obstructive cardiomyopathy (HOCM) (HCC) Hypertrophic obstructive cardiomyopathy Type 2 diabetes mellitus without complication, unspecified whether oysterman insulin use (HCC) Essential hypertension Unspecified essential hypertension Hyperlipidemia LDL goal <100 Other and unspecified hyperlipidemia Venous insufficiency Unspecified venous (peripheral) insufficiency Autoimmune hepatitis treated with steroids (HCC) Autoimmune hepatitis Portal vein thrombosis Chronic insomnia Insomnia, unspecified Recurrent depression (HCC) Major depressive disorder, recurrent episode, unspecified DDD (degenerative disc disease), lumbar Degeneration of lumbar or lumbosacral intervertebral disc Left knee pain, unspecified chronicity documented in this encounter [facility] note* Diagnosis Pre-operative examination- Primary Preoperative examination, unspecified Colon cancer screening Special screening for malignant neoplasms, colon Thrombocytopenia (HCC) Thrombocytopenia, unspecified Hypertrophic obstructive cardiomyopathy (HOCM) (HCC) Hypertrophic obstructive cardiomyopathy Type 2 diabetes mellitus without complication, unspecified whether fci insulin use (HCC) Essential hypertension Unspecified essential hypertension Hyperlipidemia LDL goal <100 Other and unspecified hyperlipidemia Venous insufficiency Unspecified venous (peripheral) insufficiency Autoimmune hepatitis treated with steroids (HCC) Autoimmune hepatitis Portal vein thrombosis Chronic insomnia Insomnia, unspecified Recurrent depression (HCC) Major depressive disorder, recurrent episode, unspecified DDD (degenerative disc disease), lumbar Degeneration of lumbar or lumbosacral intervertebral disc Left knee pain, unspecified chronicity documented in this encounter [facility] note* Diagnosis Pre-operative examination- Primary Preoperative examination, unspecified Colon cancer screening Special screening for malignant neoplasms, colon Thrombocytopenia (HCC) Thrombocytopenia, unspecified Hypertrophic obstructive cardiomyopathy (HOCM) (HCC) Hypertrophic obstructive cardiomyopathy Type 2 diabetes mellitus without complication, unspecified whether fci insulin use (HCC) Essential hypertension Unspecified essential hypertension Hyperlipidemia LDL goal <100 Other and unspecified hyperlipidemia Venous insufficiency Unspecified venous (peripheral) insufficiency Autoimmune hepatitis treated with steroids (HCC) Autoimmune hepatitis Portal vein thrombosis Chronic insomnia Insomnia, unspecified Recurrent depression (HCC) Major depressive disorder, recurrent episode, unspecified DDD (degenerative disc disease), lumbar Degeneration of lumbar or lumbosacral intervertebral disc Liver disease Unspecified disorder of liver documented in this encounter [facility] note* Diagnosis Pre-operative examination- Primary Preoperative examination, unspecified Colon cancer screening Special screening for malignant neoplasms, colon Thrombocytopenia (HCC) Thrombocytopenia, unspecified Hypertrophic obstructive cardiomyopathy (HOCM) (HCC) Hypertrophic obstructive cardiomyopathy Type 2 diabetes mellitus without complication, unspecified whether oysterman insulin use (HCC) Essential hypertension Unspecified essential hypertension Hyperlipidemia LDL goal <100 Other and unspecified hyperlipidemia Venous insufficiency Unspecified venous (peripheral) insufficiency Autoimmune hepatitis treated with steroids (HCC) Autoimmune hepatitis Portal vein thrombosis Chronic insomnia Insomnia, unspecified Recurrent depression (HCC) Major depressive disorder, recurrent episode, unspecified DDD (degenerative disc disease), lumbar Degeneration of lumbar or lumbosacral intervertebral disc Stage 3a chronic kidney disease (HCC)- Primary documented in this encounter [facility] note* Diagnosis Pre-operative examination- Primary Preoperative examination, unspecified Colon cancer screening Special screening for malignant neoplasms, colon Thrombocytopenia (HCC) Thrombocytopenia, unspecified Hypertrophic obstructive cardiomyopathy (HOCM) (HCC) Hypertrophic obstructive cardiomyopathy Type 2 diabetes mellitus without complication, unspecified whether oysterman insulin use (HCC) Essential hypertension Unspecified essential hypertension Hyperlipidemia LDL goal <100 Other and unspecified hyperlipidemia Venous insufficiency Unspecified venous (peripheral) insufficiency Autoimmune hepatitis treated with steroids (HCC) Autoimmune hepatitis Portal vein thrombosis Chronic insomnia Insomnia, unspecified Recurrent depression (HCC) Major depressive disorder, recurrent episode, unspecified DDD (degenerative disc disease), lumbar Degeneration of lumbar or lumbosacral intervertebral disc Autoimmune hepatitis (HCC) Autoimmune hepatitis [facility] Diagnosis Pre-operative examination- Primary Preoperative examination, unspecified Colon cancer screening Special screening for malignant neoplasms, colon Thrombocytopenia (HCC) Thrombocytopenia, unspecified Hypertrophic obstructive cardiomyopathy (HOCM) (HCC) Hypertrophic obstructive cardiomyopathy Type 2 diabetes mellitus without complication, unspecified whether fci insulin use (HCC) Essential hypertension Unspecified essential hypertension Hyperlipidemia LDL goal <100 Other and unspecified hyperlipidemia Venous insufficiency Unspecified venous (peripheral) insufficiency Autoimmune hepatitis treated with steroids (HCC) Autoimmune hepatitis Portal vein thrombosis Chronic insomnia Insomnia, unspecified Recurrent depression (HCC) Major depressive disorder, recurrent episode, unspecified DDD (degenerative disc disease), lumbar Degeneration of lumbar or lumbosacral intervertebral disc Stage 3 chronic kidney disease, unspecified whether stage 3a or 3b CKD (HCC)- Primary documented in this encounter [facility] note* Diagnosis Pre-operative examination- Primary Preoperative examination, unspecified Colon cancer screening Special screening for malignant neoplasms, colon Thrombocytopenia (HCC) Thrombocytopenia, unspecified Hypertrophic obstructive cardiomyopathy (HOCM) (HCC) Hypertrophic obstructive cardiomyopathy Type 2 diabetes mellitus without complication, unspecified whether fci insulin use (HCC) Essential hypertension Unspecified essential hypertension Hyperlipidemia LDL goal <100 Other and unspecified hyperlipidemia Venous insufficiency Unspecified venous (peripheral) insufficiency Autoimmune hepatitis treated with steroids (HCC) Autoimmune hepatitis Portal vein thrombosis Chronic insomnia Insomnia, unspecified Recurrent depression (HCC) Major depressive disorder, recurrent episode, unspecified DDD (degenerative disc disease), lumbar Degeneration of lumbar or lumbosacral intervertebral disc Stage 3a chronic kidney disease (HCC)- Primary Primary hypertension Unspecified essential hypertension Persistent proteinuria Proteinuria Controlled type 2 diabetes mellitus without complication, without long-term current use of insulin (HCC) [facility] Diagnosis Pre-operative examination- Primary Preoperative examination, unspecified Colon cancer screening Special screening for malignant neoplasms, colon Thrombocytopenia (HCC) Thrombocytopenia, unspecified Hypertrophic obstructive cardiomyopathy (HOCM) (HCC) Hypertrophic obstructive cardiomyopathy Type 2 diabetes mellitus without complication, unspecified whether fci insulin use (HCC) Essential hypertension Unspecified essential hypertension Hyperlipidemia LDL goal <100 Other and unspecified hyperlipidemia Venous insufficiency Unspecified venous (peripheral) insufficiency Autoimmune hepatitis treated with steroids (HCC) Autoimmune hepatitis Portal vein thrombosis Chronic insomnia Insomnia, unspecified Recurrent depression (HCC) Major depressive disorder, recurrent episode, unspecified DDD (degenerative disc disease), lumbar Degeneration of lumbar or lumbosacral intervertebral disc Hospital discharge follow-up- Primary Other follow-up examination PVT (portal vein thrombosis) Portal vein thrombosis documented in this encounter [facility] note* Diagnosis Pre-operative examination- Primary Preoperative examination, unspecified Colon cancer screening Special screening for malignant neoplasms, colon Thrombocytopenia (HCC) Thrombocytopenia, unspecified Hypertrophic obstructive cardiomyopathy (HOCM) (HCC) Hypertrophic obstructive cardiomyopathy Type 2 diabetes mellitus without complication, unspecified whether oysterman insulin use (HCC) Essential hypertension Unspecified essential hypertension Hyperlipidemia LDL goal <100 Other and unspecified hyperlipidemia Venous insufficiency Unspecified venous (peripheral) insufficiency Autoimmune hepatitis treated with steroids (HCC) Autoimmune hepatitis Portal vein thrombosis Chronic insomnia Insomnia, unspecified Recurrent depression (HCC) Major depressive disorder, recurrent episode, unspecified DDD (degenerative disc disease), lumbar Degeneration of lumbar or lumbosacral intervertebral disc Portal vein thrombosis- Primary Poorly controlled type 2 diabetes mellitus (HCC) Type II or unspecified type diabetes mellitus without mention of complication, not stated as uncontrolled Thrombocytopenia (HCC) Thrombocytopenia, unspecified Hypertrophic obstructive cardiomyopathy (HOCM) (HCC) Hypertrophic obstructive cardiomyopathy Type 2 diabetes mellitus with diabetic neuropathy, unspecified whether oysterman insulin use (HCC) Cirrhosis of liver without ascites, unspecified hepatic cirrhosis type (HCC) Esophageal varices without bleeding, unspecified esophageal varices type (HCC) Controlled type 2 diabetes mellitus without complication, with long-term current use of insulin (HCC) Microscopic hematuria URI, acute Acute upper respiratory infections of unspecified site Nausea Nausea alone documented in this encounter [facility] note* Diagnosis Pre-operative examination- Primary Preoperative examination, unspecified Colon cancer screening Special screening for malignant neoplasms, colon Thrombocytopenia (HCC) Thrombocytopenia, unspecified Hypertrophic obstructive cardiomyopathy (HOCM) (HCC) Hypertrophic obstructive cardiomyopathy Type 2 diabetes mellitus without complication, unspecified whether oysterman insulin use (HCC) Essential hypertension Unspecified essential hypertension Hyperlipidemia LDL goal <100 Other and unspecified hyperlipidemia Venous insufficiency Unspecified venous (peripheral) insufficiency Autoimmune hepatitis treated with steroids (HCC) Autoimmune hepatitis Portal vein thrombosis Chronic insomnia Insomnia, unspecified Recurrent depression (HCC) Major depressive disorder, recurrent episode, unspecified DDD (degenerative disc disease), lumbar Degeneration of lumbar or lumbosacral intervertebral disc Stage 3a chronic kidney disease (HCC)- Primary documented in this encounter [facility] note* Diagnosis Pre-operative examination- Primary Preoperative examination, unspecified Colon cancer screening Special screening for malignant neoplasms, colon Thrombocytopenia (HCC) Thrombocytopenia, unspecified Hypertrophic obstructive cardiomyopathy (HOCM) (HCC) Hypertrophic obstructive cardiomyopathy Type 2 diabetes mellitus without complication, unspecified whether fci insulin use (HCC) Essential hypertension Unspecified essential hypertension Hyperlipidemia LDL goal <100 Other and unspecified hyperlipidemia Venous insufficiency Unspecified venous (peripheral) insufficiency Autoimmune hepatitis treated with steroids (HCC) Autoimmune hepatitis Portal vein thrombosis Chronic insomnia Insomnia, unspecified Recurrent depression (HCC) Major depressive disorder, recurrent episode, unspecified DDD (degenerative disc disease), lumbar Degeneration of lumbar or lumbosacral intervertebral disc Abnormal urinalysis- Primary Other nonspecific finding on examination of urine documented in this encounter [facility] note* Diagnosis Pre-operative examination- Primary Preoperative examination, unspecified Colon cancer screening Special screening for malignant neoplasms, colon Thrombocytopenia (HCC) Thrombocytopenia, unspecified Hypertrophic obstructive cardiomyopathy (HOCM) (HCC) Hypertrophic obstructive cardiomyopathy Type 2 diabetes mellitus without complication, unspecified whether oysterman insulin use (HCC) Essential hypertension Unspecified essential hypertension Hyperlipidemia LDL goal <100 Other and unspecified hyperlipidemia Venous insufficiency Unspecified venous (peripheral) insufficiency Autoimmune hepatitis treated with steroids (HCC) Autoimmune hepatitis Portal vein thrombosis Chronic insomnia Insomnia, unspecified Recurrent depression (HCC) Major depressive disorder, recurrent episode, unspecified DDD (degenerative disc disease), lumbar Degeneration of lumbar or lumbosacral intervertebral disc Portal vein thrombosis- Primary documented in this encounter [facility] note* Diagnosis Pre-operative examination- Primary Preoperative examination, unspecified Colon cancer screening Special screening for malignant neoplasms, colon Thrombocytopenia (HCC) Thrombocytopenia, unspecified Hypertrophic obstructive cardiomyopathy (HOCM) (HCC) Hypertrophic obstructive cardiomyopathy Type 2 diabetes mellitus without complication, unspecified whether fci insulin use (HCC) Essential hypertension Unspecified essential hypertension Hyperlipidemia LDL goal <100 Other and unspecified hyperlipidemia Venous insufficiency Unspecified venous (peripheral) insufficiency Autoimmune hepatitis treated with steroids (HCC) Autoimmune hepatitis Portal vein thrombosis Chronic insomnia Insomnia, unspecified Recurrent depression (HCC) Major depressive disorder, recurrent episode, unspecified DDD (degenerative disc disease), lumbar Degeneration of lumbar or lumbosacral intervertebral disc Autoimmune hepatitis (HCC)- Primary Autoimmune hepatitis documented in this encounter [facility] note* Diagnosis Pre-operative examination- Primary Preoperative examination, unspecified Colon cancer screening Special screening for malignant neoplasms, colon Thrombocytopenia (HCC) Thrombocytopenia, unspecified Hypertrophic obstructive cardiomyopathy (HOCM) (HCC) Hypertrophic obstructive cardiomyopathy Type 2 diabetes mellitus without complication, unspecified whether oysterman insulin use (HCC) Essential hypertension Unspecified essential hypertension Hyperlipidemia LDL goal <100 Other and unspecified hyperlipidemia Venous insufficiency Unspecified venous (peripheral) insufficiency Autoimmune hepatitis treated with steroids (HCC) Autoimmune hepatitis Portal vein thrombosis Chronic insomnia Insomnia, unspecified Recurrent depression (HCC) Major depressive disorder, recurrent episode, unspecified DDD (degenerative disc disease), lumbar Degeneration of lumbar or lumbosacral intervertebral disc Other hypertrophic cardiomyopathy (HCC)- Primary Other hypertrophic cardiomyopathy documented in this encounter [facility] note* Diagnosis Pre-operative examination- Primary Preoperative examination, unspecified Colon cancer screening Special screening for malignant neoplasms, colon Thrombocytopenia (HCC) Thrombocytopenia, unspecified Hypertrophic obstructive cardiomyopathy (HOCM) (HCC) Hypertrophic obstructive cardiomyopathy Type 2 diabetes mellitus without complication, unspecified whether oysterman insulin use (HCC) Essential hypertension Unspecified essential hypertension Hyperlipidemia LDL goal <100 Other and unspecified hyperlipidemia Venous insufficiency Unspecified venous (peripheral) insufficiency Autoimmune hepatitis treated with steroids (HCC) Autoimmune hepatitis Portal vein thrombosis Chronic insomnia Insomnia, unspecified Recurrent depression (HCC) Major depressive disorder, recurrent episode, unspecified DDD (degenerative disc disease), lumbar Degeneration of lumbar or lumbosacral intervertebral disc Autoimmune hepatitis (HCC)- Primary Autoimmune hepatitis Portal vein thrombosis Anticoagulation management encounter Encounter for therapeutic drug monitoring Other cirrhosis of liver (HCC) documented in this encounter [facility] note* Diagnosis Pre-operative examination- Primary Preoperative examination, unspecified Colon cancer screening Special screening for malignant neoplasms, colon Thrombocytopenia (HCC) Thrombocytopenia, unspecified Hypertrophic obstructive cardiomyopathy (HOCM) (HCC) Hypertrophic obstructive cardiomyopathy Type 2 diabetes mellitus without complication, unspecified whether fci insulin use (HCC) Essential hypertension Unspecified essential hypertension Hyperlipidemia LDL goal <100 Other and unspecified hyperlipidemia Venous insufficiency Unspecified venous (peripheral) insufficiency Autoimmune hepatitis treated with steroids (HCC) Autoimmune hepatitis Portal vein thrombosis Chronic insomnia Insomnia, unspecified Recurrent depression (HCC) Major depressive disorder, recurrent episode, unspecified DDD (degenerative disc disease), lumbar Degeneration of lumbar or lumbosacral intervertebral disc Actinic keratosis- Primary [facility] Diagnosis Pre-operative examination- Primary Preoperative examination, unspecified Colon cancer screening Special screening for malignant neoplasms, colon Thrombocytopenia (HCC) Thrombocytopenia, unspecified Hypertrophic obstructive cardiomyopathy (HOCM) (HCC) Hypertrophic obstructive cardiomyopathy Type 2 diabetes mellitus without complication, unspecified whether oysterman insulin use (HCC) Essential hypertension Unspecified essential hypertension Hyperlipidemia LDL goal <100 Other and unspecified hyperlipidemia Venous insufficiency Unspecified venous (peripheral) insufficiency Autoimmune hepatitis treated with steroids (HCC) Autoimmune hepatitis Portal vein thrombosis Chronic insomnia Insomnia, unspecified Recurrent depression (HCC) Major depressive disorder, recurrent episode, unspecified DDD (degenerative disc disease), lumbar Degeneration of lumbar or lumbosacral intervertebral disc Portal vein thrombosis- Primary Poorly controlled type 2 diabetes mellitus (HCC) Type II or unspecified type diabetes mellitus without mention of complication, not stated as uncontrolled Thrombocytopenia (HCC) Thrombocytopenia, unspecified Type 2 diabetes mellitus with diabetic neuropathy, unspecified whether oysterman insulin use (HCC) Cirrhosis of liver without ascites, unspecified hepatic cirrhosis type (HCC) Esophageal varices without bleeding, unspecified esophageal varices type (HCC) Hyperlipidemia LDL goal <100 Other and unspecified hyperlipidemia Autoimmune hepatitis (HCC) Autoimmune hepatitis Stage 3a chronic kidney disease (HCC) URI, acute Acute upper respiratory infections of unspecified site documented in this encounter [facility] note* Diagnosis Pre-operative examination- Primary Preoperative examination, unspecified Colon cancer screening Special screening for malignant neoplasms, colon Thrombocytopenia (HCC) Thrombocytopenia, unspecified Hypertrophic obstructive cardiomyopathy (HOCM) (HCC) Hypertrophic obstructive cardiomyopathy Type 2 diabetes mellitus without complication, unspecified whether oysterman insulin use (HCC) Essential hypertension Unspecified essential hypertension Hyperlipidemia LDL goal <100 Other and unspecified hyperlipidemia Venous insufficiency Unspecified venous (peripheral) insufficiency Autoimmune hepatitis treated with steroids (HCC) Autoimmune hepatitis Portal vein thrombosis Chronic insomnia Insomnia, unspecified Recurrent depression (HCC) Major depressive disorder, recurrent episode, unspecified DDD (degenerative disc disease), lumbar Degeneration of lumbar or lumbosacral intervertebral disc Stage 3a chronic kidney disease (HCC)- Primary Primary hypertension Unspecified essential hypertension documented in this encounter [facility] note* Diagnosis Pre-operative examination- Primary Preoperative examination, unspecified Colon cancer screening Special screening for malignant neoplasms, colon Thrombocytopenia (HCC) Thrombocytopenia, unspecified Hypertrophic obstructive cardiomyopathy (HOCM) (HCC) Hypertrophic obstructive cardiomyopathy Type 2 diabetes mellitus without complication, unspecified whether oysterman insulin use (HCC) Essential hypertension Unspecified essential hypertension Hyperlipidemia LDL goal <100 Other and unspecified hyperlipidemia Venous insufficiency Unspecified venous (peripheral) insufficiency Autoimmune hepatitis treated with steroids (HCC) Autoimmune hepatitis Portal vein thrombosis Chronic insomnia Insomnia, unspecified Recurrent depression (HCC) Major depressive disorder, recurrent episode, unspecified DDD (degenerative disc disease), lumbar Degeneration of lumbar or lumbosacral intervertebral disc Examination of participant in clinical trial- Primary documented in this encounter [facility] note* Diagnosis Pre-operative examination- Primary Preoperative examination, unspecified Colon cancer screening Special screening for malignant neoplasms, colon Thrombocytopenia (HCC) Thrombocytopenia, unspecified Hypertrophic obstructive cardiomyopathy (HOCM) (HCC) Hypertrophic obstructive cardiomyopathy Type 2 diabetes mellitus without complication, unspecified whether fci insulin use (HCC) Essential hypertension Unspecified essential hypertension Hyperlipidemia LDL goal <100 Other and unspecified hyperlipidemia Venous insufficiency Unspecified venous (peripheral) insufficiency Autoimmune hepatitis treated with steroids (HCC) Autoimmune hepatitis Portal vein thrombosis Chronic insomnia Insomnia, unspecified Recurrent depression (HCC) Major depressive disorder, recurrent episode, unspecified DDD (degenerative disc disease), lumbar Degeneration of lumbar or lumbosacral intervertebral disc Acute non-recurrent sinusitis, unspecified location- Primary Acute bronchitis, unspecified organism documented in this encounter [facility] note* Diagnosis Pre-operative examination- Primary Preoperative examination, unspecified Colon cancer screening Special screening for malignant neoplasms, colon Thrombocytopenia (HCC) Thrombocytopenia, unspecified Hypertrophic obstructive cardiomyopathy (HOCM) (HCC) Hypertrophic obstructive cardiomyopathy Type 2 diabetes mellitus without complication, unspecified whether fci insulin use (HCC) Essential hypertension Unspecified essential hypertension Hyperlipidemia LDL goal <100 Other and unspecified hyperlipidemia Venous insufficiency Unspecified venous (peripheral) insufficiency Autoimmune hepatitis treated with steroids (HCC) Autoimmune hepatitis Portal vein thrombosis Chronic insomnia Insomnia, unspecified Recurrent depression (HCC) Major depressive disorder, recurrent episode, unspecified DDD (degenerative disc disease), lumbar Degeneration of lumbar or lumbosacral intervertebral disc Portal vein thrombosis documented in this encounter [facility] note* Diagnosis Pre-operative examination- Primary Preoperative examination, unspecified Colon cancer screening Special screening for malignant neoplasms, colon Thrombocytopenia (HCC) Thrombocytopenia, unspecified Hypertrophic obstructive cardiomyopathy (HOCM) (HCC) Hypertrophic obstructive cardiomyopathy Type 2 diabetes mellitus without complication, unspecified whether fci insulin use (HCC) Essential hypertension Unspecified essential hypertension Hyperlipidemia LDL goal <100 Other and unspecified hyperlipidemia Venous insufficiency Unspecified venous (peripheral) insufficiency Autoimmune hepatitis treated with steroids (HCC) Autoimmune hepatitis Portal vein thrombosis Chronic insomnia Insomnia, unspecified Recurrent depression (HCC) Major depressive disorder, recurrent episode, unspecified DDD (degenerative disc disease), lumbar Degeneration of lumbar or lumbosacral intervertebral disc Other hypertrophic cardiomyopathy (HCC) Other hypertrophic cardiomyopathy [facility] Diagnosis Pre-operative examination- Primary Preoperative examination, unspecified Colon cancer screening Special screening for malignant neoplasms, colon Thrombocytopenia (HCC) Thrombocytopenia, unspecified Hypertrophic obstructive cardiomyopathy (HOCM) (HCC) Hypertrophic obstructive cardiomyopathy Type 2 diabetes mellitus without complication, unspecified whether fci insulin use (HCC) Essential hypertension Unspecified essential hypertension Hyperlipidemia LDL goal <100 Other and unspecified hyperlipidemia Venous insufficiency Unspecified venous (peripheral) insufficiency Autoimmune hepatitis treated with steroids (HCC) Autoimmune hepatitis Portal vein thrombosis Chronic insomnia Insomnia, unspecified Recurrent depression (HCC) Major depressive disorder, recurrent episode, unspecified DDD (degenerative disc disease), lumbar Degeneration of lumbar or lumbosacral intervertebral disc Portal vein thrombosis Acute non-recurrent sinusitis, unspecified location Acute bronchitis, unspecified organism documented in this encounter [facility] note* Diagnosis Pre-operative examination- Primary Preoperative examination, unspecified Colon cancer screening Special screening for malignant neoplasms, colon Thrombocytopenia (HCC) Thrombocytopenia, unspecified Hypertrophic obstructive cardiomyopathy (HOCM) (HCC) Hypertrophic obstructive cardiomyopathy Type 2 diabetes mellitus without complication, unspecified whether oysterman insulin use (HCC) Essential hypertension Unspecified essential hypertension Hyperlipidemia LDL goal <100 Other and unspecified hyperlipidemia Venous insufficiency Unspecified venous (peripheral) insufficiency Autoimmune hepatitis treated with steroids (HCC) Autoimmune hepatitis Portal vein thrombosis Chronic insomnia Insomnia, unspecified Recurrent depression (HCC) Major depressive disorder, recurrent episode, unspecified DDD (degenerative disc disease), lumbar Degeneration of lumbar or lumbosacral intervertebral disc Acute non-recurrent sinusitis, unspecified location Acute bronchitis, unspecified organism documented in this encounter [facility] note* Diagnosis Pre-operative examination- Primary Preoperative examination, unspecified Colon cancer screening Special screening for malignant neoplasms, colon Thrombocytopenia (HCC) Thrombocytopenia, unspecified Hypertrophic obstructive cardiomyopathy (HOCM) (HCC) Hypertrophic obstructive cardiomyopathy Type 2 diabetes mellitus without complication, unspecified whether fci insulin use (HCC) Essential hypertension Unspecified essential hypertension Hyperlipidemia LDL goal <100 Other and unspecified hyperlipidemia Venous insufficiency Unspecified venous (peripheral) insufficiency Autoimmune hepatitis treated with steroids (HCC) Autoimmune hepatitis Portal vein thrombosis Chronic insomnia Insomnia, unspecified Recurrent depression (HCC) Major depressive disorder, recurrent episode, unspecified DDD (degenerative disc disease), lumbar Degeneration of lumbar or lumbosacral intervertebral disc Hypertrophic obstructive cardiomyopathy (HOCM) (HCC)- Primary Hypertrophic obstructive cardiomyopathy Primary hypertension Unspecified essential hypertension Hyperlipidemia LDL goal <100 Other and unspecified hyperlipidemia Venous insufficiency Unspecified venous (peripheral) insufficiency S/P ICD (internal cardiac defibrillator) procedure Automatic implantable cardiac defibrillator in situ [facility] Diagnosis Pre-operative examination- Primary Preoperative examination, unspecified Colon cancer screening Special screening for malignant neoplasms, colon Thrombocytopenia Thrombocytopenia, unspecified Hypertrophic obstructive cardiomyopathy (HOCM) (HCC) Hypertrophic obstructive cardiomyopathy Type 2 diabetes mellitus without complication, unspecified whether oysterman insulin use (HCC) Essential hypertension Unspecified essential hypertension Hyperlipidemia LDL goal <100 Other and unspecified hyperlipidemia Venous insufficiency Unspecified venous (peripheral) insufficiency Autoimmune hepatitis treated with steroids (HCC) Autoimmune hepatitis Portal vein thrombosis Chronic insomnia Insomnia, unspecified Recurrent depression Major depressive disorder, recurrent episode, unspecified DDD (degenerative disc disease), lumbar Degeneration of lumbar or lumbosacral intervertebral disc Controlled type 2 diabetes mellitus without complication, unspecified whether oysterman insulin use (HCC)- Primary documented in this encounter [facility] note* Diagnosis Pre-operative examination- Primary Preoperative examination, unspecified Colon cancer screening Special screening for malignant neoplasms, colon Thrombocytopenia Thrombocytopenia, unspecified Hypertrophic obstructive cardiomyopathy (HOCM) (HCC) Hypertrophic obstructive cardiomyopathy Type 2 diabetes mellitus without complication, unspecified whether fci insulin use (HCC) Essential hypertension Unspecified essential hypertension Hyperlipidemia LDL goal <100 Other and unspecified hyperlipidemia Venous insufficiency Unspecified venous (peripheral) insufficiency Autoimmune hepatitis treated with steroids (HCC) Autoimmune hepatitis Portal vein thrombosis Chronic insomnia Insomnia, unspecified Recurrent depression Major depressive disorder, recurrent episode, unspecified DDD (degenerative disc disease), lumbar Degeneration of lumbar or lumbosacral intervertebral disc Iron deficiency anemia due to chronic blood loss- Primary Iron deficiency anemia secondary to blood loss (chronic) Thrombocytopenia Thrombocytopenia, unspecified MGUS (monoclonal gammopathy of unknown significance) Monoclonal paraproteinemia Chronic ITP (idiopathic thrombocytopenia) (HCC) Immune thrombocytopenic purpura [facility] Diagnosis Pre-operative examination- Primary Preoperative examination, unspecified Colon cancer screening Special screening for malignant neoplasms, colon Thrombocytopenia Thrombocytopenia, unspecified Hypertrophic obstructive cardiomyopathy (HOCM) (HCC) Hypertrophic obstructive cardiomyopathy Type 2 diabetes mellitus without complication, unspecified whether fci insulin use (HCC) Essential hypertension Unspecified essential hypertension Hyperlipidemia LDL goal <100 Other and unspecified hyperlipidemia Venous insufficiency Unspecified venous (peripheral) insufficiency Autoimmune hepatitis treated with steroids (HCC) Autoimmune hepatitis Portal vein thrombosis Chronic insomnia Insomnia, unspecified Recurrent depression Major depressive disorder, recurrent episode, unspecified DDD (degenerative disc disease), lumbar Degeneration of lumbar or lumbosacral intervertebral disc Actinic keratosis- Primary Telangiectasia Other and unspecified capillary diseases Pruritus Unspecified pruritic disorder [facility] Diagnosis Pre-operative examination- Primary Preoperative examination, unspecified Colon cancer screening Special screening for malignant neoplasms, colon Thrombocytopenia Thrombocytopenia, unspecified Hypertrophic obstructive cardiomyopathy (HOCM) (HCC) Hypertrophic obstructive cardiomyopathy Type 2 diabetes mellitus without complication, unspecified whether fci insulin use (HCC) Essential hypertension Unspecified essential hypertension Hyperlipidemia LDL goal <100 Other and unspecified hyperlipidemia Venous insufficiency Unspecified venous (peripheral) insufficiency Autoimmune hepatitis treated with steroids (HCC) Autoimmune hepatitis Portal vein thrombosis Chronic insomnia Insomnia, unspecified Recurrent depression Major depressive disorder, recurrent episode, unspecified DDD (degenerative disc disease), lumbar Degeneration of lumbar or lumbosacral intervertebral disc S/P ICD (internal cardiac defibrillator) procedure- Primary Automatic implantable cardiac defibrillator in situ Primary hypertension Unspecified essential hypertension Hyperlipidemia LDL goal <100 Other and unspecified hyperlipidemia Hypertensive chronic kidney disease with stage 1 through stage 4 chronic kidney disease, or unspecified chronic kidney disease Cirrhosis of liver without ascites, unspecified hepatic cirrhosis type (HCC) Portal vein thrombosis Portal hypertension (HCC) Portal hypertension Autoimmune hepatitis (HCC) Autoimmune hepatitis Stage 3a chronic kidney disease (HCC) Controlled type 2 diabetes mellitus without complication, with long-term current use of insulin (HCC) Iron deficiency anemia due to chronic blood loss Iron deficiency anemia secondary to blood loss (chronic) Thrombocytopenia Thrombocytopenia, unspecified [facility] Diagnosis Pre-operative examination- Primary Preoperative examination, unspecified Colon cancer screening Special screening for malignant neoplasms, colon Thrombocytopenia Thrombocytopenia, unspecified Hypertrophic obstructive cardiomyopathy (HOCM) (HCC) Hypertrophic obstructive cardiomyopathy Type 2 diabetes mellitus without complication, unspecified whether oysterman insulin use (HCC) Essential hypertension Unspecified essential hypertension Hyperlipidemia LDL goal <100 Other and unspecified hyperlipidemia Venous insufficiency Unspecified venous (peripheral) insufficiency Autoimmune hepatitis treated with steroids (HCC) Autoimmune hepatitis Portal vein thrombosis Chronic insomnia Insomnia, unspecified Recurrent depression Major depressive disorder, recurrent episode, unspecified DDD (degenerative disc disease), lumbar Degeneration of lumbar or lumbosacral intervertebral disc 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 Thrombocytopenia Thrombocytopenia, unspecified [facility] Diagnosis Pre-operative examination- Primary Preoperative examination, unspecified Colon cancer screening Special screening for malignant neoplasms, colon Thrombocytopenia Thrombocytopenia, unspecified Hypertrophic obstructive cardiomyopathy (HOCM) (HCC) Hypertrophic obstructive cardiomyopathy Type 2 diabetes mellitus without complication, unspecified whether oysterman insulin use (HCC) Essential hypertension Unspecified essential hypertension Hyperlipidemia LDL goal <100 Other and unspecified hyperlipidemia Venous insufficiency Unspecified venous (peripheral) insufficiency Autoimmune hepatitis treated with steroids (HCC) Autoimmune hepatitis Portal vein thrombosis Chronic insomnia Insomnia, unspecified Recurrent depression Major depressive disorder, recurrent episode, unspecified DDD (degenerative disc disease), lumbar Degeneration of lumbar or lumbosacral intervertebral disc Portal vein thrombosis- Primary Anticoagulation management encounter Encounter for therapeutic drug monitoring Superior mesenteric vein thrombosis (HCC) Acute vascular insufficiency of intestine Autoimmune hepatitis (HCC) Autoimmune hepatitis Other cirrhosis of liver (HCC) Acute pain of right shoulder [facility] Diagnosis Pre-operative examination- Primary Preoperative examination, unspecified Colon cancer screening Special screening for malignant neoplasms, colon Thrombocytopenia Thrombocytopenia, unspecified Hypertrophic obstructive cardiomyopathy (HOCM) (HCC) Hypertrophic obstructive cardiomyopathy Type 2 diabetes mellitus without complication, unspecified whether fci insulin use (HCC) Essential hypertension Unspecified essential hypertension Hyperlipidemia LDL goal <100 Other and unspecified hyperlipidemia Venous insufficiency Unspecified venous (peripheral) insufficiency Autoimmune hepatitis treated with steroids (HCC) Autoimmune hepatitis Portal vein thrombosis Chronic insomnia Insomnia, unspecified Recurrent depression Major depressive disorder, recurrent episode, unspecified DDD (degenerative disc disease), lumbar Degeneration of lumbar or lumbosacral intervertebral disc Portal vein thrombosis documented in this encounter [facility] note* Diagnosis Pre-operative examination- Primary Preoperative examination, unspecified Colon cancer screening Special screening for malignant neoplasms, colon Thrombocytopenia Thrombocytopenia, unspecified Hypertrophic obstructive cardiomyopathy (HOCM) (HCC) Hypertrophic obstructive cardiomyopathy Type 2 diabetes mellitus without complication, unspecified whether fci insulin use (HCC) Essential hypertension Unspecified essential hypertension Hyperlipidemia LDL goal <100 Other and unspecified hyperlipidemia Venous insufficiency Unspecified venous (peripheral) insufficiency Autoimmune hepatitis treated with steroids (HCC) Autoimmune hepatitis Portal vein thrombosis Chronic insomnia Insomnia, unspecified Recurrent depression Major depressive disorder, recurrent episode, unspecified DDD (degenerative disc disease), lumbar Degeneration of lumbar or lumbosacral intervertebral disc Stage 3a chronic kidney disease (HCC)- Primary [facility] Diagnosis Pre-operative examination- Primary Preoperative examination, unspecified Colon cancer screening Special screening for malignant neoplasms, colon Thrombocytopenia Thrombocytopenia, unspecified Hypertrophic obstructive cardiomyopathy (HOCM) (HCC) Hypertrophic obstructive cardiomyopathy Type 2 diabetes mellitus without complication, unspecified whether fci insulin use (HCC) Essential hypertension Unspecified essential hypertension Hyperlipidemia LDL goal <100 Other and unspecified hyperlipidemia Venous insufficiency Unspecified venous (peripheral) insufficiency Autoimmune hepatitis treated with steroids (HCC) Autoimmune hepatitis Portal vein thrombosis Chronic insomnia Insomnia, unspecified Recurrent depression Major depressive disorder, recurrent episode, unspecified DDD (degenerative disc disease), lumbar Degeneration of lumbar or lumbosacral intervertebral disc Neck pain- Primary Cervicalgia Spinal stenosis of cervical region Spinal stenosis in cervical region Acute pain of left knee [facility] Diagnosis Pre-operative examination- Primary Preoperative examination, unspecified Colon cancer screening Special screening for malignant neoplasms, colon Thrombocytopenia Thrombocytopenia, unspecified Hypertrophic obstructive cardiomyopathy (HOCM) (HCC) Hypertrophic obstructive cardiomyopathy Type 2 diabetes mellitus without complication, unspecified whether oysterman insulin use (HCC) Essential hypertension Unspecified essential hypertension Hyperlipidemia LDL goal <100 Other and unspecified hyperlipidemia Venous insufficiency Unspecified venous (peripheral) insufficiency Autoimmune hepatitis treated with steroids (HCC) Autoimmune hepatitis Portal vein thrombosis Chronic insomnia Insomnia, unspecified Recurrent depression Major depressive disorder, recurrent episode, unspecified DDD (degenerative disc disease), lumbar Degeneration of lumbar or lumbosacral intervertebral disc Cervical spondylosis- Primary Cervical spondylosis without myelopathy Neck pain Cervicalgia [facility] Diagnosis Pre-operative examination- Primary Preoperative examination, unspecified Colon cancer screening Special screening for malignant neoplasms, colon Thrombocytopenia Thrombocytopenia, unspecified Hypertrophic obstructive cardiomyopathy (HOCM) (HCC) Hypertrophic obstructive cardiomyopathy Type 2 diabetes mellitus without complication, unspecified whether oysterman insulin use (HCC) Essential hypertension Unspecified essential hypertension Hyperlipidemia LDL goal <100 Other and unspecified hyperlipidemia Venous insufficiency Unspecified venous (peripheral) insufficiency Autoimmune hepatitis treated with steroids (HCC) Autoimmune hepatitis Portal vein thrombosis Chronic insomnia Insomnia, unspecified Recurrent depression Major depressive disorder, recurrent episode, unspecified DDD (degenerative disc disease), lumbar Degeneration of lumbar or lumbosacral intervertebral disc Spinal stenosis of cervical region Spinal stenosis in cervical region [facility] Diagnosis Pre-operative examination- Primary Preoperative examination, unspecified Colon cancer screening Special screening for malignant neoplasms, colon Thrombocytopenia Thrombocytopenia, unspecified Hypertrophic obstructive cardiomyopathy (HOCM) (HCC) Hypertrophic obstructive cardiomyopathy Type 2 diabetes mellitus without complication, unspecified whether fci insulin use (HCC) Essential hypertension Unspecified essential hypertension Hyperlipidemia LDL goal <100 Other and unspecified hyperlipidemia Venous insufficiency Unspecified venous (peripheral) insufficiency Autoimmune hepatitis treated with steroids (HCC) Autoimmune hepatitis Portal vein thrombosis Chronic insomnia Insomnia, unspecified Recurrent depression Major depressive disorder, recurrent episode, unspecified DDD (degenerative disc disease), lumbar Degeneration of lumbar or lumbosacral intervertebral disc Cervical spondylosis- Primary Cervical spondylosis without myelopathy [facility] Diagnosis Pre-operative examination- Primary Preoperative examination, unspecified Colon cancer screening Special screening for malignant neoplasms, colon Thrombocytopenia Thrombocytopenia, unspecified Hypertrophic obstructive cardiomyopathy (HOCM) (HCC) Hypertrophic obstructive cardiomyopathy Type 2 diabetes mellitus without complication, unspecified whether fci insulin use (HCC) Essential hypertension Unspecified essential hypertension Hyperlipidemia LDL goal <100 Other and unspecified hyperlipidemia Venous insufficiency Unspecified venous (peripheral) insufficiency Autoimmune hepatitis treated with steroids (HCC) Autoimmune hepatitis Portal vein thrombosis Chronic insomnia Insomnia, unspecified Recurrent depression Major depressive disorder, recurrent episode, unspecified DDD (degenerative disc disease), lumbar Degeneration of lumbar or lumbosacral intervertebral disc Chronic ITP (idiopathic thrombocytopenia) (HCC)- Primary Immune thrombocytopenic purpura Type 2 diabetes mellitus without complication, without long-term current use of insulin (HCC) Iron deficiency anemia due to chronic blood loss Iron deficiency anemia secondary to blood loss (chronic) Thrombocytopenia Thrombocytopenia, unspecified documented in this encounter [facility] note* Diagnosis Pre-operative examination- Primary Preoperative examination, unspecified Colon cancer screening Special screening for malignant neoplasms, colon Thrombocytopenia Thrombocytopenia, unspecified Hypertrophic obstructive cardiomyopathy (HOCM) (HCC) Hypertrophic obstructive cardiomyopathy Type 2 diabetes mellitus without complication, unspecified whether oysterman insulin use (HCC) Essential hypertension Unspecified essential hypertension Hyperlipidemia LDL goal <100 Other and unspecified hyperlipidemia Venous insufficiency Unspecified venous (peripheral) insufficiency Autoimmune hepatitis treated with steroids (HCC) Autoimmune hepatitis Portal vein thrombosis Chronic insomnia Insomnia, unspecified Recurrent depression Major depressive disorder, recurrent episode, unspecified DDD (degenerative disc disease), lumbar Degeneration of lumbar or lumbosacral intervertebral disc Cervical spondylosis- Primary Cervical spondylosis without myelopathy Cervical facet joint syndrome Other symptoms referable to back Cervical spondylosis Cervical spondylosis without myelopathy Cervical facet joint syndrome Other symptoms referable to back [facility] Diagnosis Pre-operative examination- Primary Preoperative examination, unspecified Colon cancer screening Special screening for malignant neoplasms, colon Thrombocytopenia Thrombocytopenia, unspecified Hypertrophic obstructive cardiomyopathy (HOCM) (HCC) Hypertrophic obstructive cardiomyopathy Type 2 diabetes mellitus without complication, unspecified whether oysterman insulin use (HCC) Essential hypertension Unspecified essential hypertension Hyperlipidemia LDL goal <100 Other and unspecified hyperlipidemia Venous insufficiency Unspecified venous (peripheral) insufficiency Autoimmune hepatitis treated with steroids (HCC) Autoimmune hepatitis Portal vein thrombosis Chronic insomnia Insomnia, unspecified Recurrent depression Major depressive disorder, recurrent episode, unspecified DDD (degenerative disc disease), lumbar Degeneration of lumbar or lumbosacral intervertebral disc Cervical spondylosis- Primary Cervical spondylosis without myelopathy Cervical facet joint syndrome Other symptoms referable to back Cervical spondylosis Cervical spondylosis without myelopathy Cervical facet joint syndrome Other symptoms referable to back documented in this encounter [facility] note* Diagnosis Pre-operative examination- Primary Preoperative examination, unspecified Colon cancer screening Special screening for malignant neoplasms, colon Thrombocytopenia Thrombocytopenia, unspecified Hypertrophic obstructive cardiomyopathy (HOCM) (HCC) Hypertrophic obstructive cardiomyopathy Type 2 diabetes mellitus without complication, unspecified whether oysterman insulin use (HCC) Essential hypertension Unspecified essential hypertension Hyperlipidemia LDL goal <100 Other and unspecified hyperlipidemia Venous insufficiency Unspecified venous (peripheral) insufficiency Autoimmune hepatitis treated with steroids (HCC) Autoimmune hepatitis Portal vein thrombosis Chronic insomnia Insomnia, unspecified Recurrent depression Major depressive disorder, recurrent episode, unspecified DDD (degenerative disc disease), lumbar Degeneration of lumbar or lumbosacral intervertebral disc Portal vein thrombosis Cervical spondylosis Cervical spondylosis without myelopathy Cervical facet joint syndrome Other symptoms referable to back documented in this encounter [facility] note* Diagnosis Pre-operative examination- Primary Preoperative examination, unspecified Colon cancer screening Special screening for malignant neoplasms, colon Thrombocytopenia Thrombocytopenia, unspecified Hypertrophic obstructive cardiomyopathy (HOCM) (HCC) Hypertrophic obstructive cardiomyopathy Type 2 diabetes mellitus without complication, unspecified whether fci insulin use (HCC) Essential hypertension Unspecified essential hypertension Hyperlipidemia LDL goal <100 Other and unspecified hyperlipidemia Venous insufficiency Unspecified venous (peripheral) insufficiency Autoimmune hepatitis treated with steroids (HCC) Autoimmune hepatitis Portal vein thrombosis Chronic insomnia Insomnia, unspecified Recurrent depression Major depressive disorder, recurrent episode, unspecified DDD (degenerative disc disease), lumbar Degeneration of lumbar or lumbosacral intervertebral disc Portal vein thrombosis Cervical spondylosis Cervical spondylosis without myelopathy Cervical facet joint syndrome Other symptoms referable to back [facility]* Diagnosis Pre-operative examination- Primary Preoperative examination, unspecified Colon cancer screening Special screening for malignant neoplasms, colon Thrombocytopenia Thrombocytopenia, unspecified Hypertrophic obstructive cardiomyopathy (HOCM) (HCC) Hypertrophic obstructive cardiomyopathy Type 2 diabetes mellitus without complication, unspecified whether fci insulin use (HCC) Essential hypertension Unspecified essential hypertension Hyperlipidemia LDL goal <100 Other and unspecified hyperlipidemia Venous insufficiency Unspecified venous (peripheral) insufficiency Autoimmune hepatitis treated with steroids (HCC) Autoimmune hepatitis Portal vein thrombosis Chronic insomnia Insomnia, unspecified Recurrent depression Major depressive disorder, recurrent episode, unspecified DDD (degenerative disc disease), lumbar Degeneration of lumbar or lumbosacral intervertebral disc Superior mesenteric vein thrombosis (HCC)- Primary Acute vascular insufficiency of intestine Portal vein thrombosis Anticoagulation management encounter Encounter for therapeutic drug monitoring Autoimmune hepatitis (HCC) Autoimmune hepatitis Other cirrhosis of liver (HCC) Cervical spondylosis Cervical spondylosis without myelopathy Cervical facet joint syndrome Other symptoms referable to back documented in this encounter [facility] note* Diagnosis Pre-operative examination- Primary Preoperative examination, unspecified Colon cancer screening Special screening for malignant neoplasms, colon Thrombocytopenia Thrombocytopenia, unspecified Hypertrophic obstructive cardiomyopathy (HOCM) (HCC) Hypertrophic obstructive cardiomyopathy Type 2 diabetes mellitus without complication, unspecified whether fci insulin use (HCC) Essential hypertension Unspecified essential hypertension Hyperlipidemia LDL goal <100 Other and unspecified hyperlipidemia Venous insufficiency Unspecified venous (peripheral) insufficiency Autoimmune hepatitis treated with steroids (HCC) Autoimmune hepatitis Portal vein thrombosis Chronic insomnia Insomnia, unspecified Recurrent depression Major depressive disorder, recurrent episode, unspecified DDD (degenerative disc disease), lumbar Degeneration of lumbar or lumbosacral intervertebral disc Examination of participant in clinical trial- Primary Cervical spondylosis Cervical spondylosis without myelopathy Cervical facet joint syndrome Other symptoms referable to back [facility] Additional Instructions Follow-up with primary care physician. Muscle relaxers as needed for pain. You received a muscle relaxer here in the emergency department. No muscle relaxer for 8 hours. As relaxers can increase falls, cause lightheadedness, weakness, fatigue. Do not drive or operate heavy machinery while taking these. Recommend gentle stretching and heat. Activity as tolerated. [facility] Work Phone: Reason for referral (narrative)* Diagnostic Procedure Only (Routine) - Authorized Specialty Diagnoses / Procedures Referred By Aleshiaac t Referred To Contact US IMAGING Diagnoses Autoimmune hepatitis (HCC) Procedures US DOPPLER COMPLETE DUP-SCAN ARTL LOVELY ABDL/PEL/SCROT&/RPR ORGN COM Derrek Bear MD [address] [place] [address] Us Imaging Referral ID Status Reason Start Date Expiration Date Visits Requested Visits Authorized [id number] Authorized Auto-Generat ed Referral 06/24/2021 07/24/2022 1 1 * Diagnostic Procedure Only (Routine) - Authorized Specialty Diagnoses / Procedures Referred By Aleshiaac t Referred To Contact US IMAGING Diagnoses Autoimmune hepatitis (HCC) Procedures US ABD LIVER VASCULAR US ABDOMINAL REAL TIME W/IMAGE LIMITED DUP-SCAN ARTL LOVELY ABDL/PEL/SCROT&/RPR ORGN [facility] Derrek Bear MD [address] [place] [address] Us Imaging Referral ID Status Reason Start Date Expiration Date Visits Requested Visits Authorized [id number] Authorized Auto-Generat ed Referral 06/24/2021 07/24/2022 1 1 [facility] for referral (narrative)* Diagnostic Procedure Only (Routine) - Closed Specialty Diagnoses / Procedures Referred By Contac t Referred To Contact US IMAGING Diagnoses Autoimmune hepatitis (HCC) Procedures US DOPPLER COMPLETE DUP-SCAN ARTL LOVELY ABDL/PEL/SCROT&/RPR ORGN COM Derrek Bear MD [address] [place] [id number] Us Imaging Referral ID Status Reason Start Date Expiration Date V isits Requested Visits Authorized [id number] Closed Auto-Generate d Referral 06/24/2021 07/24/2022 1 1 * Diagnostic Procedure Only (Routine) - Closed Specialty Diagnoses / Procedures Referred By Contac t Referred To Contact US IMAGING Diagnoses Autoimmune hepatitis (HCC) Procedures US ABD LIVER VASCULAR US ABDOMINAL REAL TIME W/IMAGE LIMITED DUP-SCAN ARTL LOVELY ABDL/PEL/SCROT&/RPR ORGN COM Derrek Bear MD [address] [place] [address] Us Imaging Referral ID Status Reason Start Date Expiration Date V isits Requested Visits Authorized [id number] Closed Auto-Generate d Referral 06/24/2021 07/24/2022 1 1 [facility] for referral (narrative)* Diagnostic Procedure Only (Routine) - Pending Review Specialty Diagnoses / Procedures Referred By Theresa t Referred To Contact US IMAGING Diagnoses Autoimmune hepatitis (HCC) Procedures US DOPPLER COMPLETE DUP-SCAN ARTL LOVELY ABDL/PEL/SCROT&/RPR ORGN COM Derrek Bear MD [address] [place] [address] Us Imaging Referral ID Status Reason Start Date Expiration Date Visits Requested Visits Authorized [id number] Pending Review Auto-Generat ed Referral 10/13/2021 11/12/2022 1 1 * Diagnostic Procedure Only (Routine) - Pending Review Specialty Diagnoses / Procedures Referred By Theresa t Referred To Contact US IMAGING Diagnoses Autoimmune hepatitis (HCC) Procedures US ABD LIVER VASCULAR US ABDOMINAL REAL TIME W/IMAGE LIMITED DUP-SCAN ARTL LOVELY ABDL/PEL/SCROT&/RPR ORGN COM Derrek Bear MD [address] [place] [id number] Us Imaging Referral ID Status Reason Start Date Expiration Date Visits Requested Visits Authorized [id number] Pending Review Auto-Generat ed Referral 10/13/2021 11/12/2022 1 1 [facility] for referral (narrative)* Outpatient Procedure (Routine) - Pending Review Specialty Diagnoses / Procedures Referred By Contac t Referred [facility] Diagnoses Hypertrophic obstructive cardiomyopathy (HOCM) (HCC) S/P ICD (internal cardiac defibrillator) procedure Procedures ECHO ECHO TTHRC R-T 2D W/WOM-MODE COMPL SPEC&COLR D Bernadette Munguia MD [address] [place] [address] [place] [address] Referral ID Status Reason Start Date Expiration Date Visits Requested Visits Authorized [id number] Pending Review Auto-Generat ed Referral 10/20/2021 10/20/2022 1 1 [facility] for referral (narrative)* Diagnostic Procedure Only (Routine) - Closed Specialty Diagnoses / Procedures Referred By Contac t Referred To Contact US IMAGING Diagnoses Autoimmune hepatitis (HCC) Procedures US DOPPLER COMPLETE DUP-SCAN ARTL LOVELY ABDL/PEL/SCROT&/RPR ORGN [facility] Derrek Bear MD [address] [place] [phone] Us Imaging Referral ID Status Reason Start Date Expiration Date V isits Requested Visits Authorized [id number] Closed Auto-Generate d Referral 10/13/2021 11/12/2022 1 1 * Diagnostic Procedure Only (Routine) - Closed Specialty Diagnoses / Procedures Referred By Contac t Referred To Contact US IMAGING Diagnoses Autoimmune hepatitis (HCC) Procedures US ABD LIVER VASCULAR US ABDOMINAL REAL TIME W/IMAGE LIMITED DUP-SCAN ARTL LOVELY ABDL/PEL/SCROT&/RPR ORGN COM Derrek Bear MD [address] [place] [address] Us Imaging Referral ID Status Reason Start Date Expiration Date V isits Requested Visits Authorized [id number] Closed Auto-Generate d Referral 10/13/2021 11/12/2022 1 1 [facility] for referral (narrative)* Outpatient Procedure (Routine) - Authorized Specialty Diagnoses / Procedures Referred By Contac t Referred To Contact [facility] [place] Diagnoses HOCM (hypertrophic obstructive cardiomyopathy) (HCC) Procedures ECG COMPLETE ECG ROUTINE ECG W/LEAST 12 LDS W/I&R Nova Shahid MD [address] [phone] [facility] [place] [phone] Referral ID Status Reason Start Date Expiration Date Visits Requested Visits Authorized [id number] Authorized Auto-Generat ed Referral 05/20/2022 05/20/2023 1 1 [facility] for referral (narrative)* Outpatient Procedure (Routine) - Authorized Specialty Diagnoses / Procedures Referred By Contac t Referred To Contact [facility] [place] Diagnoses Hypertrophic obstructive cardiomyopathy (HOCM) (HCC) Procedures ECHO ECHO TTHRC R-T 2D W/WOM-MODE COMPL SPEC&COLR D Bernadette Munguia MD [address] [place] [address] [facility] [place] [phone] Referral ID Status Reason Start Date Expiration Date Visits Requested Visits Authorized [id number] Authorized Auto-Generat ed Referral 07/13/2022 07/13/2023 1 1 * Outpatient Procedure (Routine) - Authorized Specialty Diagnoses / Procedures Referred By Contac t Referred [facility] Diagnoses Hypertrophic obstructive cardiomyopathy (HOCM) (HCC) Procedures ECG COMPLETE ECG ROUTINE ECG W/LEAST 12 LDS W/I&R Bernadette Munguia MD [address] [place] [address] [facility] [place] [address] [place] [address] Referral ID Status Reason Start Date Expiration Date Visits Requested Visits Authorized [id number] Authorized Auto-Generat ed Referral 07/07/2022 07/07/2023 1 1 [facility] for referral (narrative)* Diagnostic Procedure Only (Routine) - Closed Specialty Diagnoses / Procedures [facility] Referred To Contact [facility]AG[facility] Diagnoses Autoimmune hepatitis (HCC) Procedures US DOPPLER COMPLETE DUP-SCAN ARTL LOVELY ABDL/PEL/SCROT&/RPR ORGN COM Derrek Bear MD [address] [place] [address] Us Imaging Referral ID Status Reason Start Date Expiration Date V isits Requested Visits Authorized [id number] Closed Auto-Generate d Referral 04/13/2022 05/13/2023 1 1 * Diagnostic Procedure Only (Routine) - Closed Specialty Diagnoses / Procedures [facility] Referred To Contact [facility] Diagnoses Autoimmune hepatitis (HCC) Procedures US ABD LIVER VASCULAR US ABDOMINAL REAL TIME W/IMAGE LIMITED DUP-SCAN ARTL LOVELY ABDL/PEL/SCROT&/RPR ORGN COM Derrek Bear MD [address] [place] [address] Us Imaging Referral ID Status Reason Start Date Expiration Date V isits Requested Visits Authorized [id number] Closed Auto-Generate d Referral 04/13/2022 05/13/2023 1 1 [facility] for referral (narrative)* Diagnostic Procedure Only (Routine) - Pending Review Specialty Diagnoses / Procedures Referred By Theresa troy Referred To Contact US IMAGING Diagnoses Autoimmune hepatitis (HCC) Procedures US DOPPLER COMPLETE DUP-SCAN ARTL LOVELY ABDL/PEL/SCROT&/RPR ORGN [facility] Derrek Bear MD [address] [place] [address] Us Imaging Referral ID Status Reason Start Date Expiration Date Visits Requested Visits Authorized [id number] Pending Review Auto-Generat ed Referral 09/23/2022 10/23/2023 1 1 * Diagnostic Procedure Only (Routine) - Pending Review Specialty Diagnoses / Procedures Referred By Theresa troy Referred To Contact US IMAGING Diagnoses Autoimmune hepatitis (HCC) Procedures US ABD LIVER VASCULAR US ABDOMINAL REAL TIME W/IMAGE LIMITED DUP-SCAN ARTL LOVELY ABDL/PEL/SCROT&/RPR ORGN COM Derrek Bear MD [address] [place] [address] Us Imaging Referral ID Status Reason Start Date Expiration Date Visits Requested Visits Authorized [id number] Pending Review Auto-Generat ed Referral 09/23/2022 10/23/2023 1 1 * Consult, Test, Treat (Routine) - Authorized Specialty Diagnoses / Procedures Referred By Theresa troy Referred To Contact Endocrinology Diagnoses Controlled type 2 diabetes mellitus without complication, unspecified whether fci insulin use (HCC) Procedures CONSULT TO ENDOCRINOLOGY OFFICE/OUTPATIENT [facility] 60-74 MINUTES Derrek Bear MD [address] [place] [address] Referral ID Status Reason Start Date Expiration Date Visits Requested Visits Authorized [id number] Authorized PCP Requested Referral 09/23/2022 09/23/2023 1 1 [facility] for referral (narrative)* Diagnostic Procedure Only (Routine) - Closed Specialty Diagnoses / Procedures Referred By Theresa t Referred To Contact US IMAGING Diagnoses Autoimmune hepatitis (HCC) Procedures US DOPPLER COMPLETE DUP-SCAN ARTL LOVELY ABDL/PEL/SCROT&/RPR ORGN COM Derrek Bear MD [address] [place] [address] Us Imaging [place] [address] Referral ID Status Reason Start Date Expiration Date V isits Requested Visits Authorized [id number] Closed Auto-Generate d Referral 09/23/2022 10/23/2023 1 1 * Diagnostic Procedure Only (Routine) - Closed Specialty Diagnoses / Procedures Referred By Theresa troy Referred To Contact US IMAGING Diagnoses Autoimmune hepatitis (HCC) Procedures US ABD LIVER VASCULAR US ABDOMINAL REAL TIME W/IMAGE LIMITED DUP-SCAN ARTL LOVELY ABDL/PEL/SCROT&/RPR ORGN [facility] Derrek Bear MD [address] [place] [address] Us Imaging [place] [address] Referral ID Status Reason Start Date Expiration Date V isits Requested Visits Authorized [id number] Closed Auto-Generate d Referral 09/23/2022 10/23/2023 1 1 [facility] for referral (narrative)* Outpatient Procedure (Routine) - Pending Review Specialty Diagnoses / Procedures Referred By Theresa troy Referred To Contact [facility] Diagnoses Autoimmune hepatitis (HCC) Procedures DDI VIBRATION CONTROLLED TRANSIENT ELASTOGRAPHY (VCTE) LIVER ELASTOGRAPHY W/O IMAG W/I&R Derrek Bear MD [address] [place] [phone] [facility] [place] [address] [place], [place] [address] [place] [address] Referral ID Status Reason Start Date Expiration Date Visits Requested Visits Authorized [id number] Pending Review Auto-Generat ed Referral 06/15/2023 06/14/2024 1 1 * Diagnostic Procedure Only (Routine) - Authorized Specialty Diagnoses / Procedures Referred By Theresa t Referred To Contact US IMAGING Diagnoses Iron deficiency anemia due to chronic blood loss Procedures US DOPPLER COMPLETE DUP-SCAN ARTL LOVELY ABDL/PEL/SCROT&/RPR ORGN [facility] Derrek Bear MD [address] [place] [phone] Us Imaging [place] [address] Referral ID Status Reason Start Date Expiration Date Visits Requested Visits Authorized [id number] Authorized Auto-Generat ed Referral 06/15/2023 07/14/2024 1 1 * Diagnostic Procedure Only (Routine) - Authorized Specialty Diagnoses / Procedures Referred By Theresa troy Referred To Contact US IMAGING Diagnoses Iron deficiency anemia due to chronic blood loss Procedures US ABD LIVER VASCULAR US ABDOMINAL REAL TIME W/IMAGE LIMITED DUP-SCAN ARTL LOVELY ABDL/PEL/SCROT&/RPR ORGN [facility] Derrek Bear MD [address] [place] [address] Us Imaging [place] [address] Referral ID Status Reason Start Date Expiration Date Visits Requested Visits Authorized [id number] Authorized Auto-Generat ed Referral 06/15/2023 07/14/2024 1 1 * Consult, Test, Treat (Routine) - Authorized Specialty Diagnoses / Procedures Referred By Theresa t Referred To Contact Diagnoses Iron deficiency anemia due to chronic blood loss Procedures CONSULT TO HEMATOLOGY/ONCOLOGY OFFICE/OUTPATIENT [facility] 60 MINUTES Derrek Bear MD [address] [place] [address] Referral ID Status Reason Start Date Expiration Date Visits Requested Visits Authorized [id number] Authorized PCP Requested Referral 06/15/2023 06/14/2024 1 1 [facility] for referral (narrative)* Outpatient Procedure (Routine) - Closed Specialty Diagnoses / Procedures Referred By Theresa t Referred To Contact [facility] Diagnoses Dark stools Procedures EGD - THERAPEUTIC, EUS, OR TUBE INTERVENTIONS EGD BAND LIGATION ESOPHGEAL/GASTRIC VARICES Derrek Bear MD [address] [place] [phone] [facility] [address] [place] [address] Referral ID Status Reason Start Date Expiration Date V isits Requested Visits Authorized [id number] Closed Auto-Generate d Referral 04/09/2023 04/09/2024 1 1 [facility] for referral (narrative)* Diagnostic Procedure Only (Routine) - Closed Specialty Diagnoses / Procedures Referred By Theresa t Referred To Contact US IMAGING Diagnoses Iron deficiency anemia due to chronic blood loss Procedures US DOPPLER COMPLETE DUP-SCAN ARTL LOVELY ABDL/PEL/SCROT&/RPR ORGN COM Derrek Bear MD [address] [place] [phone] Us Imaging [facility]95 Referral ID Status Reason Start Date Expiration Date V isits Requested Visits Authorized [id number] Closed Auto-Generate d Referral 06/15/2023 07/14/2024 1 1 * Diagnostic Procedure Only (Routine) - Closed Specialty Diagnoses / Procedures [facility] Referred To Contact US IMAGING Diagnoses Iron deficiency anemia due to chronic blood loss Procedures US ABD LIVER VASCULAR US ABDOMINAL REAL TIME W/IMAGE LIMITED DUP-SCAN ARTL LOVELY ABDL/PEL/SCROT&/RPR ORGN COM Derrek Bear MD [address] [place] [phone] Us Imaging [facility]95 Referral ID Status Reason Start Date Expiration Date V isits Requested Visits Authorized [id number] Closed Auto-Generate d Referral 06/15/2023 07/14/2024 1 1 [facility] for referral (narrative)* Diagnostic Procedure Only (Routine) - Closed Specialty Diagnoses / Procedures Referred By Contac t Referred To Contact XR IMAGING Diagnoses Foot pain, right Procedures XR FOOT GENERAL 3V AP/LAT/OBL RIGHT RADEX FOOT COMPLETE MINIMUM 3 VIEWS Davis May MD [address] [place] [address] [place] [address] Referral ID Status Reason Start Date Expiration Date V isits Requested Visits Authorized [id number] Closed Auto-Generate d Referral 10/14/2022 11/13/2023 1 1 * Diagnostic Procedure Only (Routine) - Closed Specialty Diagnoses / Procedures Referred By Contac t Referred To Contact XR IMAGING Diagnoses DDD (degenerative disc disease), cervical Procedures XR CERV OTHER 4V AP/LAT/OBL RADEX SPINE CERVICAL 4 OR 5 VIEWS Davis May MD [address] [place] [address] [place] [address] Referral ID Status Reason Start Date Expiration Date V isits Requested Visits Authorized [id number] Closed Auto-Generate d Referral 10/14/2022 11/13/2023 1 1 [facility] for referral (narrative)* Diagnostic Procedure Only (Routine) - New Request Specialty Diagnoses / Procedures Referred By Contac t Referred To Contact US IMAGING Diagnoses Stage 3a chronic kidney disease (HCC) Encounter for screening for human immunodeficiency virus (HIV) Procedures US KIDNEY/BLADDER US RETROPERITONEAL REAL TIME W/[place] [address] [place] [address] [place] [address] Referral ID Status Reason Start Date Expiration Date Visits Requested Visits Authorized [id number] New Request Auto-Generat ed Referral 04/12/2024 05/12/2025 1 1 [facility] for referral (narrative)* Diagnostic Procedure Only (Routine) - New Request Specialty Diagnoses / Procedures Referred By Contac t Referred To Contact US IMAGING Diagnoses Autoimmune hepatitis (HCC) Procedures US ABD RIGHT UPPER QUADRANT US ABDOMINAL REAL TIME W/IMAGE LIMITED Stevan Thomas MD [address] [place] [address] Us Imaging [place] [address] Referral ID Status Reason Start Date Expiration Date Visits Requested Visits Authorized [id number] New Request Auto-Generat ed Referral 09/19/2024 05/26/2025 1 1 [facility] for referral (narrative)No reason for referral information availableWCleveland Clinic [facility] Work Phone: Reason for referral (narrative)* Transition of Care (Routine) - Authorized Specialty Diagnoses / Procedures [facility] Referred To Contact Jose Landry MD [address] [place] [address] Phone: tel: fax: Referral ID Status Reason Start Date Expiration Date Visits Requested Visits Authorized [id number] Authorized PCP Requested Referral 08/15/2025 11/13/2025 1 1 [facility] for visit Narrative* Diagnostic Procedure Only (Routine) - Closed Specialty Diagnoses / Procedures [facility] Referred To Contact US IMAGING Diagnoses Autoimmune hepatitis (HCC) Procedures US ABD LIVER VASCULAR US ABDOMINAL REAL TIME W/IMAGE LIMITED DUP-SCAN ARTL LOVELY ABDL/PEL/SCROT&/RPR ORGN COM Derrek Bear MD [address] [place] [phone] Us Imaging Referral ID Status Reason Start Date Expiration Date V isits Requested Visits Authorized [id number] Closed Auto-Generate d Referral 06/24/2021 07/24/2022 1 1 [facility] for visit Narrative* Diagnostic Procedure Only (Routine) - Closed Specialty Diagnoses / Procedures Referred By Contac t Referred To Contact US IMAGING Diagnoses Autoimmune hepatitis (HCC) Procedures US ABD LIVER VASCULAR US ABDOMINAL REAL TIME W/IMAGE LIMITED DUP-SCAN ARTL LOVELY ABDL/PEL/SCROT&/RPR ORGN COM Derrek Bear MD [address] [place] [address] Us Imaging Referral ID Status Reason Start Date Expiration Date V isits Requested Visits Authorized [id number] Closed Auto-Generate d Referral 10/13/2021 11/12/2022 1 1 [facility] for visit Narrative* Diagnostic Procedure Only (Routine) - Closed Specialty Diagnoses / Procedures Referred By Contac t Referred To Contact US IMAGING Diagnoses Autoimmune hepatitis (HCC) Procedures US ABD LIVER VASCULAR US ABDOMINAL REAL TIME W/IMAGE LIMITED DUP-SCAN ARTL LOVELY ABDL/PEL/SCROT&/RPR ORGN COM Derrek Bear MD [address] [place] [address] Us Imaging Referral ID Status Reason Start Date Expiration Date V isits Requested Visits Authorized [id number] Closed Auto-Generate d Referral 04/13/2022 05/13/2023 1 1 [facility] for visit Narrative* Diagnostic Procedure Only (Routine) - Closed Specialty Diagnoses / Procedures Referred By Contac t Referred To Contact US IMAGING Diagnoses Autoimmune hepatitis (HCC) Procedures US ABD LIVER VASCULAR US ABDOMINAL REAL TIME W/IMAGE LIMITED DUP-SCAN ARTL LOVELY ABDL/PEL/SCROT&/RPR ORGN COM Derrek Bear MD [address] [place] [address] Us Imaging [place] [address] Referral ID Status Reason Start Date Expiration Date V isits Requested Visits Authorized [id number] Closed Auto-Generate d Referral 09/23/2022 10/23/2023 1 1 [facility] for visit Narrative* Outpatient Procedure (Routine) - Closed Specialty Diagnoses / Procedures Referred By Contac t Referred To Contact [facility] Diagnoses Dark stools Procedures EGD - THERAPEUTIC, EUS, OR TUBE INTERVENTIONS EGD BAND LIGATION ESOPHGEAL/GASTRIC VARICES Derrek Bear MD [address] [place] [address] [facility] [address] [place] [address] Referral ID Status Reason Start Date Expiration Date V isits Requested Visits Authorized [id number] Closed Auto-Generate d Referral 04/09/2023 04/09/2024 1 1 [facility] for visit Narrative* Diagnostic Procedure Only (Routine) - Closed Specialty Diagnoses / Procedures Referred By Contac t Referred To Contact US IMAGING Diagnoses Iron deficiency anemia due to chronic blood loss Procedures US ABD LIVER VASCULAR US ABDOMINAL REAL TIME W/IMAGE LIMITED DUP-SCAN ARTL LOVELY ABDL/PEL/SCROT&/RPR ORGN COM Derrek Bear MD [address] [place] [address] Us Imaging [facility]95 Referral ID Status Reason Start Date Expiration Date V isits Requested Visits Authorized [id number] Closed Auto-Generate d Referral 06/15/2023 07/14/2024 1 1 [facility] for visit Narrative* Diagnostic Procedure Only (Routine) - Closed Specialty Diagnoses / Procedures Referred By Contac t Referred To Contact XR IMAGING Diagnoses Foot pain, right Procedures XR FOOT GENERAL 3V AP/LAT/OBL RIGHT RADEX FOOT COMPLETE MINIMUM 3 VIEWS Davis May MD [address] [place] [address] Xr Imaging [place] [address] Referral ID Status Reason Start Date Expiration Date V isits Requested Visits Authorized [id number] Closed Auto-Generate d Referral 10/14/2022 11/13/2023 1 1 [facility] for visit Narrative* Outpatient Procedure (Routine) - Closed Specialty Diagnoses / Procedures Referred By Contac t Referred To Contact [facility] Diagnoses Other hypertrophic cardiomyopathy (HCC) Procedures ECHO ECHO TTHRC R-T 2D W/WOM-MODE COMPL SPEC&[place] [address] [place] [address] Phone: tel: fax: [facility] [place] [address] [place], [place] [phone] Referral ID Status Reason Start Date Expiration Date V isits Requested Visits Authorized [id number] Closed Auto-Generate d Referral 05/08/2024 05/08/2025 1 1 [facility] Summary Purpose Family History No Family History Records FoundNo Family History Records FoundNo Family History Records FoundNo Family History Records FoundNo Family History Records FoundNo Family History Records Found Advance Directives No Advanced Directives Records FoundDocuments on File Type Date Recorded 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 Advance Directive(s) 05/30/2018 8:29 AM Date Activated Date Inactivated Comments 03/30/2024 12:41 PM 03/31/2024 4:08 PM Question Answer Comments Full Code Order Discussed With: Patient Documents on File Type Date Recorded 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 Advance Directive(s) 04/15/2020 9:30 AM Advance Directive(s) 04/14/2020 2:38 AM Advance Directive(s) 03/11/2020 1:41 PM Advance Directive(s) 08/20/2019 5:55 PM Advance Directive(s) 05/30/2018 8:29 AM Advance Directive(s) 05/31/2017 10:30 AM Advance Directive(s) 05/25/2017 10:55 AM Documents on File Type Date Recorded 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 Advance Directive(s) 04/15/2020 9:30 AM Advance Directive(s) 04/14/2020 2:38 AM Advance Directive(s) 03/11/2020 1:41 PM Advance Directive(s) 08/20/2019 5:55 PM Advance Directive(s) 05/30/2018 8:29 AM Advance Directive(s) 05/31/2017 10:30 AM Advance Directive(s) 05/25/2017 10:55 AM Documents on File Type Date Recorded 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 Advance Directive(s) 05/30/2018 8:29 AM Advance Directive Response Recorded Date/ Time Living Will Yes March 26 8:23pm Power of Game Operator Yes March 26 024 8:23pm Name of Medical Power of Game Operator Josy Yi March 26, 2023 8:23pm Advance Directive Response Recorded Date/ Time Name of Medical Power of Game Operator Josy Yi March 26, 2023 11:49pm Living Will Yes March 26 11:49pm Power of Game Operator Yes March 26 024 11:49pm Date Activated Date Inactivated Comments 03/30/2024 12:41 PM 03/31/2024 4:08 PM Question Answer Comments Full Code Order Discussed With: Patient Advance Directive Response Recorded Date/ Time Do you have a Healthcare Power of Game Operator? Yes August 06, 2024 10:53pm Reason for Referral Specialty Diagnoses / Procedures Referred By Contac t Referred To Contact MR IMAGING Diagnoses Liver lesion Procedures MRI LIVER WO/W IVCON MRI ABDOMEN W/O & W/CONTRAST MATERIAL Derrek Bear MD [address] [place] [address] Mr Imaging Referral ID Status Reason Start Date Expiration Date Visits Requested Visits Authorized [id number] Pending Review Auto-Generat ed Referral 07/21/2021 08/20/2022 1 1 Specialty Diagnoses / Procedures Referred By Contac t Referred To Contact CT IMAGING Diagnoses Liver lesion Procedures CT LIVER W IVCON CT ABDOMEN W/CONTRAST Derrek Bear MD [address] [place] [address] Ct Imaging Referral ID Status Reason Start Date Expiration Date V isits Requested Visits Authorized [id number] Closed Auto-Generate d Referral 07/23/2021 08/22/2022 1 1 Specialty Diagnoses / Procedures Referred By Contac t Referred To Contact Cardiology Diagnoses S/P ICD (internal cardiac defibrillator) procedure Hypertrophic obstructive cardiomyopathy (HOCM) (HCC) Procedures CONSULT TO CARDIOLOGY OFFICE/OUTPATIENT [facility] 60-74 MINUTES Davis May MD [address] [place] [address] Referral ID Status Reason Start Date Expiration Date Visits Requested Visits Authorized [id number] Authorized PCP Requested Referral 10/16/2021 10/16/2022 1 1 Specialty Diagnoses / Procedures Referred By Contac t Referred To Contact Ent - Otolaryngology Diagnoses Throat clearing Oral bleeding Procedures CONSULT TO ENT OFFICE/OUTPATIENT [facility] 60-74 MINUTES Davis May MD [address] [place] [address] Referral ID Status Reason Start Date Expiration Date Visits Requested Visits Authorized [id number] Authorized PCP Requested Referral 04/20/2022 04/20/2023 1 1 Specialty Diagnoses / Procedures Referred By Contac t Referred To Contact Ent - Otolaryngology Diagnoses Throat clearing Vocal cord nodule Procedures CONSULT TO ENT OFFICE/OUTPATIENT NEW HIGH MDM 60-74 MINUTES Prabhu Le PA-C [address] [place] [phone] Referral ID Status Reason Start Date Expiration Date Visits Requested Visits Authorized [id number] Authorized PCP Requested Referral 05/25/2022 05/25/2023 1 1 Specialty Diagnoses / Procedures Referred By Contac t Referred To Contact CT IMAGING Diagnoses Liver lesion Procedures CT LIVER W IVCON CT ABDOMEN W/CONTRAST Derrek Bear MD [address] [place] [phone] Ct Imaging [facility] Referral ID Status Reason Start Date Expiration Date Visits Requested Visits Authorized [id number] Authorized Auto-Generat ed Referral 03/18/2024 1 1 Specialty Diagnoses / Procedures Referred By Contac t Referred To Contact CT IMAGING Diagnoses Liver disease Procedures CT LIVER W IVCON CT ABDOMEN W/CONTRAST Derrek Bear MD [address] [place] [address] Ct Imaging [facility]95 Referral ID Status Reason Start Date Expiration Date Visits Requested Visits Authorized [id number] New Request Auto-Generat ed Referral 10/01/2023 10/30/2024 1 1 Specialty Diagnoses / Procedures Referred By Contac t Referred To Contact XR IMAGING Diagnoses Encounter for screening for osteoporosis Liver disease Autoimmune hepatitis (HCC) Localized osteoporosis ([place]) Procedures DXA-AXIAL SKELETON Derrek Bear MD [address] [place] [address] Xr Imaging [facility] Referral ID Status Reason Start Date Expiration Date Visits Requested Visits Authorized [id number] New Request Auto-Generat ed Referral 10/01/2023 10/30/2024 1 1 Specialty Diagnoses / Procedures Referred By Contac t Referred To Contact Evelin Reich, JUDICIAL CLERK.UTILIZATION REVIEWER [address] [place] [address] Referral ID Status Reason Start Date Expiration Date Visits Re quested Visits Authorized [id number] Closed 1 1 Referral ID Status Reason Start Date Expiration Date V isits Requested Visits Authorized [id number] Closed Auto-Generate d Referral 10/01/2023 10/30/2024 1 1 Specialty Diagnoses / Procedures Referred By Theresa t Referred To Contact Urology Diagnoses Microscopic hematuria Procedures CONSULT TO UROLOGY OFFICE/OUTPATIENT [facility] 60 MINUTES Davis May MD [address] [place] [address] Referral ID Status Reason Start Date Expiration Date Visits Requested Visits Authorized [id number] Authorized PCP Requested Referral 04/14/2024 04/14/2025 1 1 Medications Administered Section Inactive Administered [...] Given 01/22/2023 2:11 PM EDT 1 Drop Chief Complaint and Reason for Visit Chief Complaint UPPER GI BLEED Reason for Visit Acute upper gastroin testinal bleeding Anemia Autoimmune hepatitis Diarrhea History of immunosuppression therapy Thrombocytopenia Chief Complaint UPPER GI BLEED UPPER GI BLEED UPPER GI BLEED UPPER GI BLEED UPPER GI BLEED UPPER GI BLEED Reason for Visit Acute upper gastroin testinal bleeding Anemia Elevated serum creatinine Esophageal varices Chief Complaint Admit Date neck pain August 06, 2024 10:40 pm Chief Complaint Admit Date neck pain August 06, 2024 10:40 pm NECK PAIN/RX HERE August 29, 2024 2:00 pm Additional Source Comments (unrecognized sect ion and content) No Status Records FoundNo Status Records FoundNo Status Records FoundNo Status Records FoundNo Status Records FoundNo Status Records Found INFORMATION SOURCE (unrecogn ized section and content) DATE CREATED AUTHOR 09/10/2017 [facility] DATE CREATED AUTHOR AUTHOR'S ORGANIZ ATION 09/10/2017 [facility] DATE CREATED AUTHOR AUTHOR'S ORGANIZ ATION 04/26/2024 [facility] DATE CREATED AUTHOR AUTHOR'S ORGANIZ ATION 11/29/2024 [facility] DATE CREATED AUTHOR AUTHOR'S ORGANIZ ATION 12/29/2024 [facility] DATE CREATED AUTHOR AUTHOR'S ORGANIZ ATION 12/31/2024 [facility] Source Comments (unrecognize d section and content) In the event this informatio n is protected by the Federal Confidentiality of Alcohol and Drug Abuse Patient Records regulations: The Federal rules restrict any use of the information to criminally investigate or prosecute any alcohol or drug abuse patient.[facility] the event this information is protected by the Federal Confidentiality of Alcohol and Drug Abuse Patient Records regulations: The Federal rules restrict any use of the information to criminally investigate or prosecute any alcohol or drug abuse patient.[facility] Hospital[facility] the event this information is protected by the Federal Confidentiality of Alcohol and Drug Abuse Patient Records regulations: The Federal rules restrict any use of the information to criminally investigate or prosecute any alcohol or drug abuse patient.[facility] Hospital[facility] the event this information is protected by the Federal Confidentiality of Alcohol and Drug Abuse Patient Records regulations: The Federal rules restrict any use of the information to criminally investigate or prosecute any alcohol or drug abuse patient.[facility] Hospital[facility] the event this information is protected by the Federal Confidentiality of Alcohol and Drug Abuse Patient Records regulations: The Federal rules restrict any use of the information to criminally investigate or prosecute any alcohol or drug abuse patient.[facility] Hospital[facility] the event this information is protected by the Federal Confidentiality of Alcohol and Drug Abuse Patient Records regulations: The Federal rules restrict any use of the information to criminally investigate or prosecute any alcohol or drug abuse patient.[facility] Hospital[facility] the event this information is protected by the Federal Confidentiality of Alcohol and Drug Abuse Patient Records regulations: The Federal rules restrict any use of the information to criminally investigate or prosecute any alcohol or drug abuse patient.[facility] Hospital[facility] the event this information is protected by the Federal Confidentiality of Alcohol and Drug Abuse Patient Records regulations: The Federal rules restrict any use of the information to criminally investigate or prosecute any alcohol or drug abuse patient.[facility] Hospital[facility] the event this information is protected by the Federal Confidentiality of Alcohol and Drug Abuse Patient Records regulations: The Federal rules restrict any use of the information to criminally investigate or prosecute any alcohol or drug abuse patient.[facility] Hospital[facility] the event this information is protected by the Federal Confidentiality of Alcohol and Drug Abuse Patient Records regulations: The Federal rules restrict any use of the information to criminally investigate or prosecute any alcohol or drug abuse patient.[facility] Hospital[facility] the event this information is protected by the Federal Confidentiality of Alcohol and Drug Abuse Patient Records regulations: The Federal rules restrict any use of the information to criminally investigate or prosecute any alcohol or drug abuse patient.[facility] Hospital[facility] the event this information is protected by the Federal Confidentiality of Alcohol and Drug Abuse Patient Records regulations: The Federal rules restrict any use of the information to criminally investigate or prosecute any alcohol or drug abuse patient.[facility] Hospital[facility] the event this information is protected by the Federal Confidentiality of Alcohol and Drug Abuse Patient Records regulations: The Federal rules restrict any use of the information to criminally investigate or prosecute any alcohol or drug abuse patient.[facility] Hospital[facility] the event this information is protected by the Federal Confidentiality of Alcohol and Drug Abuse Patient Records regulations: The Federal rules restrict any use of the information to criminally investigate or prosecute any alcohol or drug abuse patient.[facility] HospitalIn the event this information is protected by the Federal Confidentiality of Alcohol and Drug Abuse Patient Records regulations: The Federal rules restrict any use of the information to criminally investigate or prosecute any alcohol or drug abuse patient.[facility] Hospital[facility] the event this information is protected by the Federal Confidentiality of Alcohol and Drug Abuse Patient Records regulations: The Federal rules restrict any use of the information to criminally investigate or prosecute any alcohol or drug abuse patient.[facility] HospitalIn the event this information is protected by the Federal Confidentiality of Alcohol and Drug Abuse Patient Records regulations: The Federal rules restrict any use of the information to criminally investigate or prosecute any alcohol or drug abuse patient.[facility] HospitalIn the event this information is protected by the Federal Confidentiality of Alcohol and Drug Abuse Patient Records regulations: The Federal rules restrict any use of the information to criminally investigate or prosecute any alcohol or drug abuse patient.[facility] Hospital[facility] the event this information is protected by the Federal Confidentiality of Alcohol and Drug Abuse Patient Records regulations: The Federal rules restrict any use of the information to criminally investigate or prosecute any alcohol or drug abuse patient.[facility] HospitalIn the event this information is protected by the Federal Confidentiality of Alcohol and Drug Abuse Patient Records regulations: The Federal rules restrict any use of the information to criminally investigate or prosecute any alcohol or drug abuse patient.[facility] HospitalIn the event this information is protected by the Federal Confidentiality of Alcohol and Drug Abuse Patient Records regulations: The Federal rules restrict any use of the information to criminally investigate or prosecute any alcohol or drug abuse patient.[facility] HospitalIn the event this information is protected by the Federal Confidentiality of Alcohol and Drug Abuse Patient Records regulations: The Federal rules restrict any use of the information to criminally investigate or prosecute any alcohol or drug abuse patient.[facility] HospitalIn the event this information is protected by the Federal Confidentiality of Alcohol and Drug Abuse Patient Records regulations: The Federal rules restrict any use of the information to criminally investigate or prosecute any alcohol or drug abuse patient.[facility] HospitalIn the event this information is protected by the Federal Confidentiality of Alcohol and Drug Abuse Patient Records regulations: The Federal rules restrict any use of the information to criminally investigate or prosecute any alcohol or drug abuse patient.[facility] HospitalIn the event this information is protected by the Federal Confidentiality of Alcohol and Drug Abuse Patient Records regulations: The Federal rules restrict any use of the information to criminally investigate or prosecute any alcohol or drug abuse patient.[facility] HospitalIn the event this information is protected by the Federal Confidentiality of Alcohol and Drug Abuse Patient Records regulations: The Federal rules restrict any use of the information to criminally investigate or prosecute any alcohol or drug abuse patient.[facility] HospitalIn the event this information is protected by the Federal Confidentiality of Alcohol and Drug Abuse Patient Records regulations: The Federal rules restrict any use of the information to criminally investigate or prosecute any alcohol or drug abuse patient.[facility] HospitalIn the event this information is protected by the Federal Confidentiality of Alcohol and Drug Abuse Patient Records regulations: The Federal rules restrict any use of the information to criminally investigate or prosecute any alcohol or drug abuse patient.[facility] HospitalIn the event this information is protected by the Federal Confidentiality of Alcohol and Drug Abuse Patient Records regulations: The Federal rules restrict any use of the information to criminally investigate or prosecute any alcohol or drug abuse patient.[facility] HospitalIn the event this information is protected by the Federal Confidentiality of Alcohol and Drug Abuse Patient Records regulations: The Federal rules restrict any use of the information to criminally investigate or prosecute any alcohol or drug abuse patient.[facility] HospitalIn the event this information is protected by the Federal Confidentiality of Alcohol and Drug Abuse Patient Records regulations: The Federal rules restrict any use of the information to criminally investigate or prosecute any alcohol or drug abuse patient.[facility] HospitalIn the event this information is protected by the Federal Confidentiality of Alcohol and Drug Abuse Patient Records regulations: The Federal rules restrict any use of the information to criminally investigate or prosecute any alcohol or drug abuse patient.[facility] HospitalIn the event this information is protected by the Federal Confidentiality of Alcohol and Drug Abuse Patient Records regulations: The Federal rules restrict any use of the information to criminally investigate or prosecute any alcohol or drug abuse patient.[facility] HospitalIn the event this information is protected by the Federal Confidentiality of Alcohol and Drug Abuse Patient Records regulations: The Federal rules restrict any use of the information to criminally investigate or prosecute any alcohol or drug abuse patient.[facility] HospitalIn the event this information is protected by the Federal Confidentiality of Alcohol and Drug Abuse Patient Records regulations: The Federal rules restrict any use of the information to criminally investigate or prosecute any alcohol or drug abuse patient.[facility] HospitalIn the event this information is protected by the Federal Confidentiality of Alcohol and Drug Abuse Patient Records regulations: The Federal rules restrict any use of the information to criminally investigate or prosecute any alcohol or drug abuse patient.[facility] HospitalIn the event this information is protected by the Federal Confidentiality of Alcohol and Drug Abuse Patient Records regulations: The Federal rules restrict any use of the information to criminally investigate or prosecute any alcohol or drug abuse patient.[facility] HospitalIn the event this information is protected by the Federal Confidentiality of Alcohol and Drug Abuse Patient Records regulations: The Federal rules restrict any use of the information to criminally investigate or prosecute any alcohol or drug abuse patient.[facility] HospitalIn the event this information is protected by the Federal Confidentiality of Alcohol and Drug Abuse Patient Records regulations: The Federal rules restrict any use of the information to criminally investigate or prosecute any alcohol or drug abuse patient.[facility] HospitalIn the event this information is protected by the Federal Confidentiality of Alcohol and Drug Abuse Patient Records regulations: The Federal rules restrict any use of the information to criminally investigate or prosecute any alcohol or drug abuse patient.[facility] HospitalIn the event this information is protected by the Federal Confidentiality of Alcohol and Drug Abuse Patient Records regulations: The Federal rules restrict any use of the information to criminally investigate or prosecute any alcohol or drug abuse patient.[facility] HospitalIn the event this information is protected by the Federal Confidentiality of Alcohol and Drug Abuse Patient Records regulations: The Federal rules restrict any use of the information to criminally investigate or prosecute any alcohol or drug abuse patient.[facility] HospitalIn the event this information is protected by the Federal Confidentiality of Alcohol and Drug Abuse Patient Records regulations: The Federal rules restrict any use of the information to criminally investigate or prosecute any alcohol or drug abuse patient.[facility] HospitalIn the event this information is protected by the Federal Confidentiality of Alcohol and Drug Abuse Patient Records regulations: The Federal rules restrict any use of the information to criminally investigate or prosecute any alcohol or drug abuse patient.[facility] HospitalIn the event this information is protected by the Federal Confidentiality of Alcohol and Drug Abuse Patient Records regulations: The Federal rules restrict any use of the information to criminally investigate or prosecute any alcohol or drug abuse patient.[facility] HospitalIn the event this information is protected by the Federal Confidentiality of Alcohol and Drug Abuse Patient Records regulations: The Federal rules restrict any use of the information to criminally investigate or prosecute any alcohol or drug abuse patient.[facility] HospitalIn the event this information is protected by the Federal Confidentiality of Alcohol and Drug Abuse Patient Records regulations: The Federal rules restrict any use of the information to criminally investigate or prosecute any alcohol or drug abuse patient.[facility] HospitalIn the event this information is protected by the Federal Confidentiality of Alcohol and Drug Abuse Patient Records regulations: The Federal rules restrict any use of the information to criminally investigate or prosecute any alcohol or drug abuse patient.[facility] HospitalIn the event this information is protected by the Federal Confidentiality of Alcohol and Drug Abuse Patient Records regulations: The Federal rules restrict any use of the information to criminally investigate or prosecute any alcohol or drug abuse patient.[facility] HospitalIn the event this information is protected by the Federal Confidentiality of Alcohol and Drug Abuse Patient Records regulations: The Federal rules restrict any use of the information to criminally investigate or prosecute any alcohol or drug abuse patient.[facility] HospitalIn the event this information is protected by the Federal Confidentiality of Alcohol and Drug Abuse Patient Records regulations: The Federal rules restrict any use of the information to criminally investigate or prosecute any alcohol or drug abuse patient.[facility] HospitalIn the event this information is protected by the Federal Confidentiality of Alcohol and Drug Abuse Patient Records regulations: The Federal rules restrict any use of the information to criminally investigate or prosecute any alcohol or drug abuse patient.[facility] HospitalIn the event this information is protected by the Federal Confidentiality of Alcohol and Drug Abuse Patient Records regulations: The Federal rules restrict any use of the information to criminally investigate or prosecute any alcohol or drug abuse patient.[facility] HospitalIn the event this information is protected by the Federal Confidentiality of Alcohol and Drug Abuse Patient Records regulations: The Federal rules restrict any use of the information to criminally investigate or prosecute any alcohol or drug abuse patient.[facility] HospitalIn the event this information is protected by the Federal Confidentiality of Alcohol and Drug Abuse Patient Records regulations: The Federal rules restrict any use of the information to criminally investigate or prosecute any alcohol or drug abuse patient.[facility] HospitalIn the event this information is protected by the Federal Confidentiality of Alcohol and Drug Abuse Patient Records regulations: The Federal rules restrict any use of the information to criminally investigate or prosecute any alcohol or drug abuse patient.[facility] HospitalIn the event this information is protected by the Federal Confidentiality of Alcohol and Drug Abuse Patient Records regulations: The Federal rules restrict any use of the information to criminally investigate or prosecute any alcohol or drug abuse patient.[facility] HospitalIn the event this information is protected by the Federal Confidentiality of Alcohol and Drug Abuse Patient Records regulations: The Federal rules restrict any use of the information to criminally investigate or prosecute any alcohol or drug abuse patient.[facility] HospitalIn the event this information is protected by the Federal Confidentiality of Alcohol and Drug Abuse Patient Records regulations: The Federal rules restrict any use of the information to criminally investigate or prosecute any alcohol or drug abuse patient.[facility] HospitalIn the event this information is protected by the Federal Confidentiality of Alcohol and Drug Abuse Patient Records regulations: The Federal rules restrict any use of the information to criminally investigate or prosecute any alcohol or drug abuse patient.[facility] HospitalIn the event this information is protected by the Federal Confidentiality of Alcohol and Drug Abuse Patient Records regulations: The Federal rules restrict any use of the information to criminally investigate or prosecute any alcohol or drug abuse patient.[facility] HospitalIn the event this information is protected by the Federal Confidentiality of Alcohol and Drug Abuse Patient Records regulations: The Federal rules restrict any use of the information to criminally investigate or prosecute any alcohol or drug abuse patient.[facility] HospitalIn the event this information is protected by the Federal Confidentiality of Alcohol and Drug Abuse Patient Records regulations: The Federal rules restrict any use of the information to criminally investigate or prosecute any alcohol or drug abuse patient.[facility] HospitalIn the event this information is protected by the Federal Confidentiality of Alcohol and Drug Abuse Patient Records regulations: The Federal rules restrict any use of the information to criminally investigate or prosecute any alcohol or drug abuse patient.[facility] HospitalIn the event this information is protected by the Federal Confidentiality of Alcohol and Drug Abuse Patient Records regulations: The Federal rules restrict any use of the information to criminally investigate or prosecute any alcohol or drug abuse patient.[facility] HospitalIn the event this information is protected by the Federal Confidentiality of Alcohol and Drug Abuse Patient Records regulations: The Federal rules restrict any use of the information to criminally investigate or prosecute any alcohol or drug abuse patient.[facility] HospitalIn the event this information is protected by the Federal Confidentiality of Alcohol and Drug Abuse Patient Records regulations: The Federal rules restrict any use of the information to criminally investigate or prosecute any alcohol or drug abuse patient.[facility] HospitalIn the event this information is protected by the Federal Confidentiality of Alcohol and Drug Abuse Patient Records regulations: The Federal rules restrict any use of the information to criminally investigate or prosecute any alcohol or drug abuse patient.[facility] HospitalIn the event this information is protected by the Federal Confidentiality of Alcohol and Drug Abuse Patient Records regulations: The Federal rules restrict any use of the information to criminally investigate or prosecute any alcohol or drug abuse patient.[facility] HospitalIn the event this information is protected by the Federal Confidentiality of Alcohol and Drug Abuse Patient Records regulations: The Federal rules restrict any use of the information to criminally investigate or prosecute any alcohol or drug abuse patient.[facility] HospitalIn the event this information is protected by the Federal Confidentiality of Alcohol and Drug Abuse Patient Records regulations: The Federal rules restrict any use of the information to criminally investigate or prosecute any alcohol or drug abuse patient.[facility] HospitalIn the event this information is protected by the Federal Confidentiality of Alcohol and Drug Abuse Patient Records regulations: The Federal rules restrict any use of the information to criminally investigate or prosecute any alcohol or drug abuse patient.[facility] HospitalIn the event this information is protected by the Federal Confidentiality of Alcohol and Drug Abuse Patient Records regulations: The Federal rules restrict any use of the information to criminally investigate or prosecute any alcohol or drug abuse patient.[facility] HospitalIn the event this information is protected by the Federal Confidentiality of Alcohol and Drug Abuse Patient Records regulations: The Federal rules restrict any use of the information to criminally investigate or prosecute any alcohol or drug abuse patient.[facility] HospitalIn the event this information is protected by the Federal Confidentiality of Alcohol and Drug Abuse Patient Records regulations: The Federal rules restrict any use of the information to criminally investigate or prosecute any alcohol or drug abuse patient.[facility] HospitalIn the event this information is protected by the Federal Confidentiality of Alcohol and Drug Abuse Patient Records regulations: The Federal rules restrict any use of the information to criminally investigate or prosecute any alcohol or drug abuse patient.[facility] HospitalIn the event this information is protected by the Federal Confidentiality of Alcohol and Drug Abuse Patient Records regulations: The Federal rules restrict any use of the information to criminally investigate or prosecute any alcohol or drug abuse patient.[facility] HospitalIn the event this information is protected by the Federal Confidentiality of Alcohol and Drug Abuse Patient Records regulations: The Federal rules restrict any use of the information to criminally investigate or prosecute any alcohol or drug abuse patient.[facility] HospitalIn the event this information is protected by the Federal Confidentiality of Alcohol and Drug Abuse Patient Records regulations: The Federal rules restrict any use of the information to criminally investigate or prosecute any alcohol or drug abuse patient.[facility] HospitalIn the event this information is protected by the Federal Confidentiality of Alcohol and Drug Abuse Patient Records regulations: The Federal rules restrict any use of the information to criminally investigate or prosecute any alcohol or drug abuse patient.[facility] HospitalIn the event this information is protected by the Federal Confidentiality of Alcohol and Drug Abuse Patient Records regulations: The Federal rules restrict any use of the information to criminally investigate or prosecute any alcohol or drug abuse patient.[facility] HospitalIn the event this information is protected by the Federal Confidentiality of Alcohol and Drug Abuse Patient Records regulations: The Federal rules restrict any use of the information to criminally investigate or prosecute any alcohol or drug abuse patient.[facility] HospitalIn the event this information is protected by the Federal Confidentiality of Alcohol and Drug Abuse Patient Records regulations: The Federal rules restrict any use of the information to criminally investigate or prosecute any alcohol or drug abuse patient.[facility] HospitalIn the event this information is protected by the Federal Confidentiality of Alcohol and Drug Abuse Patient Records regulations: The Federal rules restrict any use of the information to criminally investigate or prosecute any alcohol or drug abuse patient.[facility] HospitalIn the event this information is protected by the Federal Confidentiality of Alcohol and Drug Abuse Patient Records regulations: The Federal rules restrict any use of the information to criminally investigate or prosecute any alcohol or drug abuse patient.[facility] HospitalIn the event this information is protected by the Federal Confidentiality of Alcohol and Drug Abuse Patient Records regulations: The Federal rules restrict any use of the information to criminally investigate or prosecute any alcohol or drug abuse patient.[facility] HospitalIn the event this information is protected by the Federal Confidentiality of Alcohol and Drug Abuse Patient Records regulations: The Federal rules restrict any use of the information to criminally investigate or prosecute any alcohol or drug abuse patient.[facility] HospitalIn the event this information is protected by the Federal Confidentiality of Alcohol and Drug Abuse Patient Records regulations: The Federal rules restrict any use of the information to criminally investigate or prosecute any alcohol or drug abuse patient.[facility] HospitalIn the event this information is protected by the Federal Confidentiality of Alcohol and Drug Abuse Patient Records regulations: The Federal rules restrict any use of the information to criminally investigate or prosecute any alcohol or drug abuse patient.[facility] HospitalIn the event this information is protected by the Federal Confidentiality of Alcohol and Drug Abuse Patient Records regulations: The Federal rules restrict any use of the information to criminally investigate or prosecute any alcohol or drug abuse patient.[facility] HospitalIn the event this information is protected by the Federal Confidentiality of Alcohol and Drug Abuse Patient Records regulations: The Federal rules restrict any use of the information to criminally investigate or prosecute any alcohol or drug abuse patient.[facility] HospitalIn the event this information is protected by the Federal Confidentiality of Alcohol and Drug Abuse Patient Records regulations: The Federal rules restrict any use of the information to criminally investigate or prosecute any alcohol or drug abuse patient.[facility] HospitalIn the event this information is protected by the Federal Confidentiality of Alcohol and Drug Abuse Patient Records regulations: The Federal rules restrict any use of the information to criminally investigate or prosecute any alcohol or drug abuse patient.[facility] HospitalIn the event this information is protected by the Federal Confidentiality of Alcohol and Drug Abuse Patient Records regulations: The Federal rules restrict any use of the information to criminally investigate or prosecute any alcohol or drug abuse patient.[facility] HospitalIn the event this information is protected by the Federal Confidentiality of Alcohol and Drug Abuse Patient Records regulations: The Federal rules restrict any use of the information to criminally investigate or prosecute any alcohol or drug abuse patient.[facility] HospitalIn the event this information is protected by the Federal Confidentiality of Alcohol and Drug Abuse Patient Records regulations: The Federal rules restrict any use of the information to criminally investigate or prosecute any alcohol or drug abuse patient.[facility] HospitalIn the event this information is protected by the Federal Confidentiality of Alcohol and Drug Abuse Patient Records regulations: The Federal rules restrict any use of the information to criminally investigate or prosecute any alcohol or drug abuse patient.[facility] HospitalIn the event this information is protected by the Federal Confidentiality of Alcohol and Drug Abuse Patient Records regulations: The Federal rules restrict any use of the information to criminally investigate or prosecute any alcohol or drug abuse patient.[facility] HospitalIn the event this information is protected by the Federal Confidentiality of Alcohol and Drug Abuse Patient Records regulations: The Federal rules restrict any use of the information to criminally investigate or prosecute any alcohol or drug abuse patient.[facility] HospitalIn the event this information is protected by the Federal Confidentiality of Alcohol and Drug Abuse Patient Records regulations: The Federal rules restrict any use of the information to criminally investigate or prosecute any alcohol or drug abuse patient.[facility] HospitalIn the event this information is protected by the Federal Confidentiality of Alcohol and Drug Abuse Patient Records regulations: The Federal rules restrict any use of the information to criminally investigate or prosecute any alcohol or drug abuse patient.[facility] HospitalIn the event this information is protected by the Federal Confidentiality of Alcohol and Drug Abuse Patient Records regulations: The Federal rules restrict any use of the information to criminally investigate or prosecute any alcohol or drug abuse patient.[facility] HospitalIn the event this information is protected by the Federal Confidentiality of Alcohol and Drug Abuse Patient Records regulations: The Federal rules restrict any use of the information to criminally investigate or prosecute any alcohol or drug abuse patient.[facility] HospitalIn the event this information is protected by the Federal Confidentiality of Alcohol and Drug Abuse Patient Records regulations: The Federal rules restrict any use of the information to criminally investigate or prosecute any alcohol or drug abuse patient.[facility] HospitalIn the event this information is protected by the Federal Confidentiality of Alcohol and Drug Abuse Patient Records regulations: The Federal rules restrict any use of the information to criminally investigate or prosecute any alcohol or drug abuse patient.[facility] HospitalIn the event this information is protected by the Federal Confidentiality of Alcohol and Drug Abuse Patient Records regulations: The Federal rules restrict any use of the information to criminally investigate or prosecute any alcohol or drug abuse patient.[facility] HospitalIn the event this information is protected by the Federal Confidentiality of Alcohol and Drug Abuse Patient Records regulations: The Federal rules restrict any use of the information to criminally investigate or prosecute any alcohol or drug abuse patient.[facility] HospitalIn the event this information is protected by the Federal Confidentiality of Alcohol and Drug Abuse Patient Records regulations: The Federal rules restrict any use of the information to criminally investigate or prosecute any alcohol or drug abuse patient.[facility] HospitalIn the event this information is protected by the Federal Confidentiality of Alcohol and Drug Abuse Patient Records regulations: The Federal rules restrict any use of the information to criminally investigate or prosecute any alcohol or drug abuse patient.[facility] HospitalIn the event this information is protected by the Federal Confidentiality of Alcohol and Drug Abuse Patient Records regulations: The Federal rules restrict any use of the information to criminally investigate or prosecute any alcohol or drug abuse patient.[facility] HospitalIn the event this information is protected by the Federal Confidentiality of Alcohol and Drug Abuse Patient Records regulations: The Federal rules restrict any use of the information to criminally investigate or prosecute any alcohol or drug abuse patient.[facility] HospitalIn the event this information is protected by the Federal Confidentiality of Alcohol and Drug Abuse Patient Records regulations: The Federal rules restrict any use of the information to criminally investigate or prosecute any alcohol or drug abuse patient.[facility] HospitalIn the event this information is protected by the Federal Confidentiality of Alcohol and Drug Abuse Patient Records regulations: The Federal rules restrict any use of the information to criminally investigate or prosecute any alcohol or drug abuse patient.[facility] HospitalIn the event this information is protected by the Federal Confidentiality of Alcohol and Drug Abuse Patient Records regulations: The Federal rules restrict any use of the information to criminally investigate or prosecute any alcohol or drug abuse patient.[facility] HospitalIn the event this information is protected by the Federal Confidentiality of Alcohol and Drug Abuse Patient Records regulations: The Federal rules restrict any use of the information to criminally investigate or prosecute any alcohol or drug abuse patient.[facility] HospitalIn the event this information is protected by the Federal Confidentiality of Alcohol and Drug Abuse Patient Records regulations: The Federal rules restrict any use of the information to criminally investigate or prosecute any alcohol or drug abuse patient.[facility] HospitalIn the event this information is protected by the Federal Confidentiality of Alcohol and Drug Abuse Patient Records regulations: The Federal rules restrict any use of the information to criminally investigate or prosecute any alcohol or drug abuse patient.[facility] HospitalIn the event this information is protected by the Federal Confidentiality of Alcohol and Drug Abuse Patient Records regulations: The Federal rules restrict any use of the information to criminally investigate or prosecute any alcohol or drug abuse patient.[facility] HospitalIn the event this information is protected by the Federal Confidentiality of Alcohol and Drug Abuse Patient Records regulations: The Federal rules restrict any use of the information to criminally investigate or prosecute any alcohol or drug abuse patient.[facility] HospitalIn the event this information is protected by the Federal Confidentiality of Alcohol and Drug Abuse Patient Records regulations: The Federal rules restrict any use of the information to criminally investigate or prosecute any alcohol or drug abuse patient.[facility] HospitalIn the event this information is protected by the Federal Confidentiality of Alcohol and Drug Abuse Patient Records regulations: The Federal rules restrict any use of the information to criminally investigate or prosecute any alcohol or drug abuse patient.[facility] HospitalIn the event this information is protected by the Federal Confidentiality of Alcohol and Drug Abuse Patient Records regulations: The Federal rules restrict any use of the information to criminally investigate or prosecute any alcohol or drug abuse patient.[facility] HospitalIn the event this information is protected by the Federal Confidentiality of Alcohol and Drug Abuse Patient Records regulations: The Federal rules restrict any use of the information to criminally investigate or prosecute any alcohol or drug abuse patient.[facility] HospitalIn the event this information is protected by the Federal Confidentiality of Alcohol and Drug Abuse Patient Records regulations: The Federal rules restrict any use of the information to criminally investigate or prosecute any alcohol or drug abuse patient.[facility] HospitalIn the event this information is protected by the Federal Confidentiality of Alcohol and Drug Abuse Patient Records regulations: The Federal rules restrict any use of the information to criminally investigate or prosecute any alcohol or drug abuse patient.[facility] HospitalIn the event this information is protected by the Federal Confidentiality of Alcohol and Drug Abuse Patient Records regulations: The Federal rules restrict any use of the information to criminally investigate or prosecute any alcohol or drug abuse patient.[facility] HospitalIn the event this information is protected by the Federal Confidentiality of Alcohol and Drug Abuse Patient Records regulations: The Federal rules restrict any use of the information to criminally investigate or prosecute any alcohol or drug abuse patient.[facility] HospitalIn the event this information is protected by the Federal Confidentiality of Alcohol and Drug Abuse Patient Records regulations: The Federal rules restrict any use of the information to criminally investigate or prosecute any alcohol or drug abuse patient.[facility] HospitalIn the event this information is protected by the Federal Confidentiality of Alcohol and Drug Abuse Patient Records regulations: The Federal rules restrict any use of the information to criminally investigate or prosecute any alcohol or drug abuse patient.[facility] HospitalIn the event this information is protected by the Federal Confidentiality of Alcohol and Drug Abuse Patient Records regulations: The Federal rules restrict any use of the information to criminally investigate or prosecute any alcohol or drug abuse patient.[facility] HospitalIn the event this information is protected by the Federal Confidentiality of Alcohol and Drug Abuse Patient Records regulations: The Federal rules restrict any use of the information to criminally investigate or prosecute any alcohol or drug abuse patient.[facility] HospitalIn the event this information is protected by the Federal Confidentiality of Alcohol and Drug Abuse Patient Records regulations: The Federal rules restrict any use of the information to criminally investigate or prosecute any alcohol or drug abuse patient.[facility] HospitalIn the event this information is protected by the Federal Confidentiality of Alcohol and Drug Abuse Patient Records regulations: The Federal rules restrict any use of the information to criminally investigate or prosecute any alcohol or drug abuse patient.[facility] HospitalIn the event this information is protected by the Federal Confidentiality of Alcohol and Drug Abuse Patient Records regulations: The Federal rules restrict any use of the information to criminally investigate or prosecute any alcohol or drug abuse patient.[facility] HospitalIn the event this information is protected by the Federal Confidentiality of Alcohol and Drug Abuse Patient Records regulations: The Federal rules restrict any use of the information to criminally investigate or prosecute any alcohol or drug abuse patient.[facility] HospitalIn the event this information is protected by the Federal Confidentiality of Alcohol and Drug Abuse Patient Records regulations: The Federal rules restrict any use of the information to criminally investigate or prosecute any alcohol or drug abuse patient.[facility] HospitalIn the event this information is protected by the Federal Confidentiality of Alcohol and Drug Abuse Patient Records regulations: The Federal rules restrict any use of the information to criminally investigate or prosecute any alcohol or drug abuse patient.[facility] HospitalIn the event this information is protected by the Federal Confidentiality of Alcohol and Drug Abuse Patient Records regulations: The Federal rules restrict any use of the information to criminally investigate or prosecute any alcohol or drug abuse patient.[facility] HospitalIn the event this information is protected by the Federal Confidentiality of Alcohol and Drug Abuse Patient Records regulations: The Federal rules restrict any use of the information to criminally investigate or prosecute any alcohol or drug abuse patient.[facility] HospitalIn the event this information is protected by the Federal Confidentiality of Alcohol and Drug Abuse Patient Records regulations: The Federal rules restrict any use of the information to criminally investigate or prosecute any alcohol or drug abuse patient.[facility] HospitalIn the event this information is protected by the Federal Confidentiality of Alcohol and Drug Abuse Patient Records regulations: The Federal rules restrict any use of the information to criminally investigate or prosecute any alcohol or drug abuse patient.[facility] HospitalIn the event this information is protected by the Federal Confidentiality of Alcohol and Drug Abuse Patient Records regulations: The Federal rules restrict any use of the information to criminally investigate or prosecute any alcohol or drug abuse patient.[facility] HospitalIn the event this information is protected by the Federal Confidentiality of Alcohol and Drug Abuse Patient Records regulations: The Federal rules restrict any use of the information to criminally investigate or prosecute any alcohol or drug abuse patient.[facility] HospitalIn the event this information is protected by the Federal Confidentiality of Alcohol and Drug Abuse Patient Records regulations: The Federal rules restrict any use of the information to criminally investigate or prosecute any alcohol or drug abuse patient.[facility] HospitalIn the event this information is protected by the Federal Confidentiality of Alcohol and Drug Abuse Patient Records regulations: The Federal rules restrict any use of the information to criminally investigate or prosecute any alcohol or drug abuse patient.[facility] HospitalIn the event this information is protected by the Federal Confidentiality of Alcohol and Drug Abuse Patient Records regulations: The Federal rules restrict any use of the information to criminally investigate or prosecute any alcohol or drug abuse patient.[facility] HospitalIn the event this information is protected by the Federal Confidentiality of Alcohol and Drug Abuse Patient Records regulations: The Federal rules restrict any use of the information to criminally investigate or prosecute any alcohol or drug abuse patient.[facility] HospitalIn the event this information is protected by the Federal Confidentiality of Alcohol and Drug Abuse Patient Records regulations: The Federal rules restrict any use of the information to criminally investigate or prosecute any alcohol or drug abuse patient.[facility] HospitalIn the event this information is protected by the Federal Confidentiality of Alcohol and Drug Abuse Patient Records regulations: The Federal rules restrict any use of the information to criminally investigate or prosecute any alcohol or drug abuse patient.[facility] HospitalIn the event this information is protected by the Federal Confidentiality of Alcohol and Drug Abuse Patient Records regulations: The Federal rules restrict any use of the information to criminally investigate or prosecute any alcohol or drug abuse patient.[facility] HospitalIn the event this information is protected by the Federal Confidentiality of Alcohol and Drug Abuse Patient Records regulations: The Federal rules restrict any use of the information to criminally investigate or prosecute any alcohol or drug abuse patient.[facility] HospitalIn the event this information is protected by the Federal Confidentiality of Alcohol and Drug Abuse Patient Records regulations: The Federal rules restrict any use of the information to criminally investigate or prosecute any alcohol or drug abuse patient.[facility] HospitalIn the event this information is protected by the Federal Confidentiality of Alcohol and Drug Abuse Patient Records regulations: The Federal rules restrict any use of the information to criminally investigate or prosecute any alcohol or drug abuse patient.[facility] HospitalIn the event this information is protected by the Federal Confidentiality of Alcohol and Drug Abuse Patient Records regulations: The Federal rules restrict any use of the information to criminally investigate or prosecute any alcohol or drug abuse patient.[facility] HospitalIn the event this information is protected by the Federal Confidentiality of Alcohol and Drug Abuse Patient Records regulations: The Federal rules restrict any use of the information to criminally investigate or prosecute any alcohol or drug abuse patient.[facility] HospitalIn the event this information is protected by the Federal Confidentiality of Alcohol and Drug Abuse Patient Records regulations: The Federal rules restrict any use of the information to criminally investigate or prosecute any alcohol or drug abuse patient.[facility] HospitalIn the event this information is protected by the Federal Confidentiality of Alcohol and Drug Abuse Patient Records regulations: The Federal rules restrict any use of the information to criminally investigate or prosecute any alcohol or drug abuse patient.[facility] HospitalIn the event this information is protected by the Federal Confidentiality of Alcohol and Drug Abuse Patient Records regulations: The Federal rules restrict any use of the information to criminally investigate or prosecute any alcohol or drug abuse patient.[facility] HospitalIn the event this information is protected by the Federal Confidentiality of Alcohol and Drug Abuse Patient Records regulations: The Federal rules restrict any use of the information to criminally investigate or prosecute any alcohol or drug abuse patient.[facility] HospitalIn the event this information is protected by the Federal Confidentiality of Alcohol and Drug Abuse Patient Records regulations: The Federal rules restrict any use of the information to criminally investigate or prosecute any alcohol or drug abuse patient.[facility] HospitalIn the event this information is protected by the Federal Confidentiality of Alcohol and Drug Abuse Patient Records regulations: The Federal rules restrict any use of the information to criminally investigate or prosecute any alcohol or drug abuse patient.[facility] HospitalIn the event this information is protected by the Federal Confidentiality of Alcohol and Drug Abuse Patient Records regulations: The Federal rules restrict any use of the information to criminally investigate or prosecute any alcohol or drug abuse patient.[facility] HospitalIn the event this information is protected by the Federal Confidentiality of Alcohol and Drug Abuse Patient Records regulations: The Federal rules restrict any use of the information to criminally investigate or prosecute any alcohol or drug abuse patient.[facility] HospitalIn the event this information is protected by the Federal Confidentiality of Alcohol and Drug Abuse Patient Records regulations: The Federal rules restrict any use of the information to criminally investigate or prosecute any alcohol or drug abuse patient.[facility] HospitalIn the event this information is protected by the Federal Confidentiality of Alcohol and Drug Abuse Patient Records regulations: The Federal rules restrict any use of the information to criminally investigate or prosecute any alcohol or drug abuse patient.[facility] HospitalIn the event this information is protected by the Federal Confidentiality of Alcohol and Drug Abuse Patient Records regulations: The Federal rules restrict any use of the information to criminally investigate or prosecute any alcohol or drug abuse patient.[facility] HospitalIn the event this information is protected by the Federal Confidentiality of Alcohol and Drug Abuse Patient Records regulations: The Federal rules restrict any use of the information to criminally investigate or prosecute any alcohol or drug abuse patient.[facility] HospitalIn the event this information is protected by the Federal Confidentiality of Alcohol and Drug Abuse Patient Records regulations: The Federal rules restrict any use of the information to criminally investigate or prosecute any alcohol or drug abuse patient.[facility] HospitalIn the event this information is protected by the Federal Confidentiality of Alcohol and Drug Abuse Patient Records regulations: The Federal rules restrict any use of the information to criminally investigate or prosecute any alcohol or drug abuse patient.[facility] HospitalIn the event this information is protected by the Federal Confidentiality of Alcohol and Drug Abuse Patient Records regulations: The Federal rules restrict any use of the information to criminally investigate or prosecute any alcohol or drug abuse patient.[facility] HospitalIn the event this information is protected by the Federal Confidentiality of Alcohol and Drug Abuse Patient Records regulations: The Federal rules restrict any use of the information to criminally investigate or prosecute any alcohol or drug abuse patient.[facility] HospitalIn the event this information is protected by the Federal Confidentiality of Alcohol and Drug Abuse Patient Records regulations: The Federal rules restrict any use of the information to criminally investigate or prosecute any alcohol or drug abuse patient.[facility] HospitalIn the event this information is protected by the Federal Confidentiality of Alcohol and Drug Abuse Patient Records regulations: The Federal rules restrict any use of the information to criminally investigate or prosecute any alcohol or drug abuse patient.[facility] HospitalIn the event this information is protected by the Federal Confidentiality of Alcohol and Drug Abuse Patient Records regulations: The Federal rules restrict any use of the information to criminally investigate or prosecute any alcohol or drug abuse patient.[facility] HospitalIn the event this information is protected by the Federal Confidentiality of Alcohol and Drug Abuse Patient Records regulations: The Federal rules restrict any use of the information to criminally investigate or prosecute any alcohol or drug abuse patient.[facility] HospitalIn the event this information is protected by the Federal Confidentiality of Alcohol and Drug Abuse Patient Records regulations: The Federal rules restrict any use of the information to criminally investigate or prosecute any alcohol or drug abuse patient.[facility] HospitalIn the event this information is protected by the Federal Confidentiality of Alcohol and Drug Abuse Patient Records regulations: The Federal rules restrict any use of the information to criminally investigate or prosecute any alcohol or drug abuse patient.[facility] HospitalIn the event this information is protected by the Federal Confidentiality of Alcohol and Drug Abuse Patient Records regulations: The Federal rules restrict any use of the information to criminally investigate or prosecute any alcohol or drug abuse patient.[facility] HospitalIn the event this information is protected by the Federal Confidentiality of Alcohol and Drug Abuse Patient Records regulations: The Federal rules restrict any use of the information to criminally investigate or prosecute any alcohol or drug abuse patient.[facility] HospitalIn the event this information is protected by the Federal Confidentiality of Alcohol and Drug Abuse Patient Records regulations: The Federal rules restrict any use of the information to criminally investigate or prosecute any alcohol or drug abuse patient.[facility] HospitalIn the event this information is protected by the Federal Confidentiality of Alcohol and Drug Abuse Patient Records regulations: The Federal rules restrict any use of the information to criminally investigate or prosecute any alcohol or drug abuse patient.[facility] HospitalIn the event this information is protected by the Federal Confidentiality of Alcohol and Drug Abuse Patient Records regulations: The Federal rules restrict any use of the information to criminally investigate or prosecute any alcohol or drug abuse patient.[facility] HospitalIn the event this information is protected by the Federal Confidentiality of Alcohol and Drug Abuse Patient Records regulations: The Federal rules restrict any use of the information to criminally investigate or prosecute any alcohol or drug abuse patient.[facility] HospitalIn the event this information is protected by the Federal Confidentiality of Alcohol and Drug Abuse Patient Records regulations: The Federal rules restrict any use of the information to criminally investigate or prosecute any alcohol or drug abuse patient.[facility] HospitalIn the event this information is protected by the Federal Confidentiality of Alcohol and Drug Abuse Patient Records regulations: The Federal rules restrict any use of the information to criminally investigate or prosecute any alcohol or drug abuse patient.[facility] HospitalIn the event this information is protected by the Federal Confidentiality of Alcohol and Drug Abuse Patient Records regulations: The Federal rules restrict any use of the information to criminally investigate or prosecute any alcohol or drug abuse patient.[facility] HospitalIn the event this information is protected by the Federal Confidentiality of Alcohol and Drug Abuse Patient Records regulations: The Federal rules restrict any use of the information to criminally investigate or prosecute any alcohol or drug abuse patient.[facility] HospitalIn the event this information is protected by the Federal Confidentiality of Alcohol and Drug Abuse Patient Records regulations: The Federal rules restrict any use of the information to criminally investigate or prosecute any alcohol or drug abuse patient.[facility] HospitalIn the event this information is protected by the Federal Confidentiality of Alcohol and Drug Abuse Patient Records regulations: The Federal rules restrict any use of the information to criminally investigate or prosecute any alcohol or drug abuse patient.[facility] HospitalIn the event this information is protected by the Federal Confidentiality of Alcohol and Drug Abuse Patient Records regulations: The Federal rules restrict any use of the information to criminally investigate or prosecute any alcohol or drug abuse patient.[facility] HospitalIn the event this information is protected by the Federal Confidentiality of Alcohol and Drug Abuse Patient Records regulations: The Federal rules restrict any use of the information to criminally investigate or prosecute any alcohol or drug abuse patient.[facility] HospitalIn the event this information is protected by the Federal Confidentiality of Alcohol and Drug Abuse Patient Records regulations: The Federal rules restrict any use of the information to criminally investigate or prosecute any alcohol or drug abuse patient.[facility] HospitalIn the event this information is protected by the Federal Confidentiality of Alcohol and Drug Abuse Patient Records regulations: The Federal rules restrict any use of the information to criminally investigate or prosecute any alcohol or drug abuse patient.[facility] HospitalIn the event this information is protected by the Federal Confidentiality of Alcohol and Drug Abuse Patient Records regulations: The Federal rules restrict any use of the information to criminally investigate or prosecute any alcohol or drug abuse patient.[facility] HospitalIn the event this information is protected by the Federal Confidentiality of Alcohol and Drug Abuse Patient Records regulations: The Federal rules restrict any use of the information to criminally investigate or prosecute any alcohol or drug abuse patient.[facility] HospitalIn the event this information is protected by the Federal Confidentiality of Alcohol and Drug Abuse Patient Records regulations: The Federal rules restrict any use of the information to criminally investigate or prosecute any alcohol or drug abuse patient.[facility] HospitalIn the event this information is protected by the Federal Confidentiality of Alcohol and Drug Abuse Patient Records regulations: The Federal rules restrict any use of the information to criminally investigate or prosecute any alcohol or drug abuse patient.[facility] HospitalIn the event this information is protected by the Federal Confidentiality of Alcohol and Drug Abuse Patient Records regulations: The Federal rules restrict any use of the information to criminally investigate or prosecute any alcohol or drug abuse patient.[facility] HospitalIn the event this information is protected by the Federal Confidentiality of Alcohol and Drug Abuse Patient Records regulations: The Federal rules restrict any use of the information to criminally investigate or prosecute any alcohol or drug abuse patient.[facility] HospitalIn the event this information is protected by the Federal Confidentiality of Alcohol and Drug Abuse Patient Records regulations: The Federal rules restrict any use of the information to criminally investigate or prosecute any alcohol or drug abuse patient.[facility] HospitalIn the event this information is protected by the Federal Confidentiality of Alcohol and Drug Abuse Patient Records regulations: The Federal rules restrict any use of the information to criminally investigate or prosecute any alcohol or drug abuse patient.[facility] HospitalIn the event this information is protected by the Federal Confidentiality of Alcohol and Drug Abuse Patient Records regulations: The Federal rules restrict any use of the information to criminally investigate or prosecute any alcohol or drug abuse patient.[facility] HospitalIn the event this information is protected by the Federal Confidentiality of Alcohol and Drug Abuse Patient Records regulations: The Federal rules restrict any use of the information to criminally investigate or prosecute any alcohol or drug abuse patient.[facility] HospitalIn the event this information is protected by the Federal Confidentiality of Alcohol and Drug Abuse Patient Records regulations: The Federal rules restrict any use of the information to criminally investigate or prosecute any alcohol or drug abuse patient.[facility] HospitalIn the event this information is protected by the Federal Confidentiality of Alcohol and Drug Abuse Patient Records regulations: The Federal rules restrict any use of the information to criminally investigate or prosecute any alcohol or drug abuse patient.[facility] HospitalIn the event this information is protected by the Federal Confidentiality of Alcohol and Drug Abuse Patient Records regulations: The Federal rules restrict any use of the information to criminally investigate or prosecute any alcohol or drug abuse patient.[facility] HospitalIn the event this information is protected by the Federal Confidentiality of Alcohol and Drug Abuse Patient Records regulations: The Federal rules restrict any use of the information to criminally investigate or prosecute any alcohol or drug abuse patient.[facility] HospitalIn the event this information is protected by the Federal Confidentiality of Alcohol and Drug Abuse Patient Records regulations: The Federal rules restrict any use of the information to criminally investigate or prosecute any alcohol or drug abuse patient.[facility] HospitalIn the event this information is protected by the Federal Confidentiality of Alcohol and Drug Abuse Patient Records regulations: The Federal rules restrict any use of the information to criminally investigate or prosecute any alcohol or drug abuse patient.[facility] HospitalIn the event this information is protected by the Federal Confidentiality of Alcohol and Drug Abuse Patient Records regulations: The Federal rules restrict any use of the information to criminally investigate or prosecute any alcohol or drug abuse patient.[facility] HospitalIn the event this information is protected by the Federal Confidentiality of Alcohol and Drug Abuse Patient Records regulations: The Federal rules restrict any use of the information to criminally investigate or prosecute any alcohol or drug abuse patient.[facility] HospitalIn the event this information is protected by the Federal Confidentiality of Alcohol and Drug Abuse Patient Records regulations: The Federal rules restrict any use of the information to criminally investigate or prosecute any alcohol or drug abuse patient.[facility] HospitalIn the event this information is protected by the Federal Confidentiality of Alcohol and Drug Abuse Patient Records regulations: The Federal rules restrict any use of the information to criminally investigate or prosecute any alcohol or drug abuse patient.[facility] HospitalIn the event this information is protected by the Federal Confidentiality of Alcohol and Drug Abuse Patient Records regulations: The Federal rules restrict any use of the information to criminally investigate or prosecute any alcohol or drug abuse patient.[facility] HospitalIn the event this information is protected by the Federal Confidentiality of Alcohol and Drug Abuse Patient Records regulations: The Federal rules restrict any use of the information to criminally investigate or prosecute any alcohol or drug abuse patient.[facility] HospitalIn the event this information is protected by the Federal Confidentiality of Alcohol and Drug Abuse Patient Records regulations: The Federal rules restrict any use of the information to criminally investigate or prosecute any alcohol or drug abuse patient.[facility] HospitalIn the event this information is protected by the Federal Confidentiality of Alcohol and Drug Abuse Patient Records regulations: The Federal rules restrict any use of the information to criminally investigate or prosecute any alcohol or drug abuse patient.[facility] HospitalIn the event this information is protected by the Federal Confidentiality of Alcohol and Drug Abuse Patient Records regulations: The Federal rules restrict any use of the information to criminally investigate or prosecute any alcohol or drug abuse patient.[facility] HospitalIn the event this information is protected by the Federal Confidentiality of Alcohol and Drug Abuse Patient Records regulations: The Federal rules restrict any use of the information to criminally investigate or prosecute any alcohol or drug abuse patient.[facility] HospitalIn the event this information is protected by the Federal Confidentiality of Alcohol and Drug Abuse Patient Records regulations: The Federal rules restrict any use of the information to criminally investigate or prosecute any alcohol or drug abuse patient.[facility] HospitalIn the event this information is protected by the Federal Confidentiality of Alcohol and Drug Abuse Patient Records regulations: The Federal rules restrict any use of the information to criminally investigate or prosecute any alcohol or drug abuse patient.[facility] HospitalIn the event this information is protected by the Federal Confidentiality of Alcohol and Drug Abuse Patient Records regulations: The Federal rules restrict any use of the information to criminally investigate or prosecute any alcohol or drug abuse patient.[facility] HospitalIn the event this information is protected by the Federal Confidentiality of Alcohol and Drug Abuse Patient Records regulations: The Federal rules restrict any use of the information to criminally investigate or prosecute any alcohol or drug abuse patient.[facility] HospitalIn the event this information is protected by the Federal Confidentiality of Alcohol and Drug Abuse Patient Records regulations: The Federal rules restrict any use of the information to criminally investigate or prosecute any alcohol or drug abuse patient.[facility] HospitalIn the event this information is protected by the Federal Confidentiality of Alcohol and Drug Abuse Patient Records regulations: The Federal rules restrict any use of the information to criminally investigate or prosecute any alcohol or drug abuse patient.[facility] HospitalIn the event this information is protected by the Federal Confidentiality of Alcohol and Drug Abuse Patient Records regulations: The Federal rules restrict any use of the information to criminally investigate or prosecute any alcohol or drug abuse patient.[facility] HospitalIn the event this information is protected by the Federal Confidentiality of Alcohol and Drug Abuse Patient Records regulations: The Federal rules restrict any use of the information to criminally investigate or prosecute any alcohol or drug abuse patient.[facility] HospitalIn the event this information is protected by the Federal Confidentiality of Alcohol and Drug Abuse Patient Records regulations: The Federal rules restrict any use of the information to criminally investigate or prosecute any alcohol or drug abuse patient.[facility] HospitalIn the event this information is protected by the Federal Confidentiality of Alcohol and Drug Abuse Patient Records regulations: The Federal rules restrict any use of the information to criminally investigate or prosecute any alcohol or drug abuse patient.[facility] HospitalIn the event this information is protected by the Federal Confidentiality of Alcohol and Drug Abuse Patient Records regulations: The Federal rules restrict any use of the information to criminally investigate or prosecute any alcohol or drug abuse patient.[facility] HospitalIn the event this information is protected by the Federal Confidentiality of Alcohol and Drug Abuse Patient Records regulations: The Federal rules restrict any use of the information to criminally investigate or prosecute any alcohol or drug abuse patient.[facility] HospitalIn the event this information is protected by the Federal Confidentiality of Alcohol and Drug Abuse Patient Records regulations: The Federal rules restrict any use of the information to criminally investigate or prosecute any alcohol or drug abuse patient.[facility] HospitalIn the event this information is protected by the Federal Confidentiality of Alcohol and Drug Abuse Patient Records regulations: The Federal rules restrict any use of the information to criminally investigate or prosecute any alcohol or drug abuse patient.[facility] HospitalIn the event this information is protected by the Federal Confidentiality of Alcohol and Drug Abuse Patient Records regulations: The Federal rules restrict any use of the information to criminally investigate or prosecute any alcohol or drug abuse patient.[facility] HospitalIn the event this information is protected by the Federal Confidentiality of Alcohol and Drug Abuse Patient Records regulations: The Federal rules restrict any use of the information to criminally investigate or prosecute any alcohol or drug abuse patient.[facility] HospitalIn the event this information is protected by the Federal Confidentiality of Alcohol and Drug Abuse Patient Records regulations: The Federal rules restrict any use of the information to criminally investigate or prosecute any alcohol or drug abuse patient.[facility] HospitalIn the event this information is protected by the Federal Confidentiality of Alcohol and Drug Abuse Patient Records regulations: The Federal rules restrict any use of the information to criminally investigate or prosecute any alcohol or drug abuse patient.[facility] HospitalIn the event this information is protected by the Federal Confidentiality of Alcohol and Drug Abuse Patient Records regulations: The Federal rules restrict any use of the information to criminally investigate or prosecute any alcohol or drug abuse patient.[facility] HospitalIn the event this information is protected by the Federal Confidentiality of Alcohol and Drug Abuse Patient Records regulations: The Federal rules restrict any use of the information to criminally investigate or prosecute any alcohol or drug abuse patient.[facility] Reason for Visit (unrecogniz ed section and content) Reason Comments Established Patient Specialty Diagnoses / Procedures Referred By Contcarlos t Referred To Contact Diagnoses Thrombocytopenia (HCC) Iron deficiency anemia due to chronic blood loss Lashonda Aleman [address] [place] [address] [facility] [address] [place] [address] Referral ID Status Reason Start Date Expiration Date Visits Re quested Visits Authorized [id number] Closed 06/18/2023 09/16/2023 99 99 Reason Comments Established Patient Follow-Up Referral ID Status Reason Start Date Expiration Date V isits Requested Visits Authorized [id number] Authorized 06/18/2023 09/16/2023 99 99 Reason Onset Date Comments Refill Request 06/14/2021 Reason Comments Appointment Reason Comments Liver Disease Reason Onset Date Comments Refill Request 06/28/[address] Specialty Diagnoses / Procedures Referred By Contac t Referred To Contact CT IMAGING Diagnoses Liver lesion Procedures CT LIVER W IVCON CT ABDOMEN W/CONTRAST Derrek Bear MD [address] [place] [address] Ct Imaging Referral ID Status Reason Start Date Expiration Date V isits Requested Visits Authorized [id number] Closed Auto-Generate d Referral 07/23/2021 08/22/2022 1 [...] (HCC) Procedures CONSULT TO CARDIOLOGY OFFICE/OUTPATIENT NEW HIGH MDM 60-74 MINUTES Davis May MD [address] [place] [address] Referral ID Status Reason Start Date Expiration Date V isits Requested Visits Authorized [id number] Closed PCP Requested Referral 10/16/2021 10/16/2022 1 [...] Date Comments Population Health Navigation Outreach 04/08/2022 [facility] Reason Comments Refill Request Reason Onset Date Comments Refill Request 05/22/2022 Reason Comments Throat Problem Lots of phlegm const antly Specialty Diagnoses / Procedures Referred By Contac t Referred To Contact Ent - Otolaryngology Diagnoses Throat clearing Oral bleeding Procedures CONSULT TO ENT OFFICE/OUTPATIENT [facility] 60-74 MINUTES Davis May MD [address] [place] [address] Referral ID Status Reason Start Date Expiration Date V isits Requested Visits Authorized [id number] Closed PCP Requested Referral 04/20/2022 04/20/2023 1 1 Reason Onset Date Comments Refill Request 06/08/2022 Reason Comments Established Patient Follow-Up Reason Comments Establish Care Follow up Reason Comments Diabetes Reason Onset Date Comments Refill Request 12/07/2022 Reason Onset Date Comments Refill Request 01/18/2023 Reason Comments Glare Specialty Diagnoses / Procedures Referred By Contac t Referred To Contact Ophthalmology Diagnoses Controlled type 2 diabetes mellitus without complication, unspecified whether oysterman insulin use (HCC) Procedures CONSULT TO OPHTHALMOLOGY OFFICE/OUTPATIENT [facility] 60-74 MINUTES Davis May MD [address] [place] [address] Referral ID Status Reason Start Date Expiration Date V isits Requested Visits Authorized [id number] Closed PCP Requested Referral 01/15/2023 01/15/2024 1 1 Reason Onset Date Comments Refill Request 02/10/2023 Reason Comments Established Patient AIH Follow Up Reason Comments Research [id number] Reason Comments Full Body Skin Check Reason Onset Date Comments Refill Request 06/06/2023 Reason Onset Date Comments Refill Request 06/14/2023 Reason Comments Established Patient Reason Comments New Patient Specialty Diagnoses / Procedures Referred By Contac t Referred To Contact Diagnoses Iron deficiency anemia due to chronic blood loss Procedures CONSULT TO HEMATOLOGY/ONCOLOGY OFFICE/OUTPATIENT [facility] 60 MINUTES Derrek Bear MD [address] [place] [address] Referral ID Status Reason Start Date Expiration Date V isits Requested Visits Authorized [id number] Closed PCP Requested Referral 06/15/2023 06/14/2024 1 1 Reason Comments Light Treatments Reason Comments MAP follow up Reason Comments Non-Chemotherapy Treatment Reason Onset Date Comments Refill Request 06/30/2023 Reason Comments Medication Question Reason Comments Follow Up Reason Comments Consult Reason Comments Established Patient Auto immune Hepatiti s Reason Comments Established Patient Follow Up Reason Comments Orders MSC Reason Comments MSC Request for Documentation Dexcom Ord er Processing Reason Comments type 2 diabetes Reason Comments Actinic Keratosis Reason Onset Date Comments Refill Request 11/27/2023 Reason Onset Date Comments Refill Request 12/13/2023 Reason Onset Date Comments Refill Request 12/15/2023 Reason Onset Date Comments Refill Request 12/20/2023 Reason Onset Date Comments Refill Request 12/28/2023 Reason Comments 6 Month Exam Reason Comments Derm Problem Reason Comments Diabetic Eye Exam Type 2 NIDDM Reason Onset Date Comments Refill Request 02/11/2024 Reason Comments New Specialty Diagnoses / Procedures Referred By Contac t Referred To Contact Orthopedics Diagnoses Left knee pain, unspecified chronicity Procedures CONSULT TO ORTHOPAEDICS OFFICE/OUTPATIENT NEW HIGH MDM 60 MINUTES Davis May MD [address] [place] [address] Referral ID Status Reason Start Date Expiration Date V isits Requested Visits Authorized [id number] Closed PCP Requested Referral 02/09/2024 02/08/2025 1 1 Reason Comments Radio Gen RMP Radiology Service Pr ogress NotePATIENT NAME: Mateus YiMRN: [id number] OF SERVICE: February 14, 2024TIME: 10:11 AMPATIENT IDENTITY VERIFICATION COMPLETED USING TWO (2) IDENTIFIERS: Name and Date of confirmed by patient verbally.FALL SCREENING: Has the patient had 2 falls in the last year or 1 fall with injury or currently using an Ambulatory Assistive Device (Walker, Cane, Wheelchair, Crutches, etc.)? NoPATIENT GENDER DATA: MalePATIENT RELEVANT IMPLANT DATA REVIEWED: Specialty Diagnoses / Procedures Referred By Contac t Referred To Contact XR IMAGING Diagnoses Left knee pain, unspecified chronicity Procedures XR KNEE GENERAL 4V AP BOTH/PA BOTH/LAT/MERC LEFT RADIOLOGIC EXAM KNEE COMPLETE 4/MORE VIEWS Davis May MD [address] [place] [address] [place] [address] Referral ID Status Reason Start Date Expiration Date V isits Requested Visits Authorized [id number] Closed Auto-Generate d Referral 02/09/2024 03/10/2025 1 1 Reason Onset Date Comments Refill Request 02/19/2024 Reason Comments Benefits Investigation Reason Comments Patient Update Specialty Diagnoses / Procedures Referred By Contac t Referred To Contact CT IMAGING Diagnoses Liver disease Procedures CT LIVER W IVCON CT ABDOMEN W/CONTRAST Derrek Bear MD [address] [place] [address] [place] [address] Referral ID Status Reason Start Date Expiration Date V isits Requested Visits Authorized [id number] Closed Auto-Generate d Referral 10/01/2023 10/30/2024 1 1 Reason Comments Research F/U Reason Onset Date Comments Transition Of Care 04/04/2024 tcm d/c Reason Onset Date Comments Refill Request 04/07/2024 Reason Onset Date Comments Transition Of Care 04/11/2024 tcm d/c follo w up Reason Comments Consult Reason Comments ospital f/up Reason Comments Hematuria Reason Onset Date Comments Transition Of Care 04/18/2024 tcm d/c follo w up - discussed triage recommendations Reason Comments Gastrointestinal Bleed Reason Comments New Patient Microscopic hematuri a Specialty Diagnoses / Procedures Referred By Contac t Referred To Contact Urology Diagnoses Microscopic hematuria Procedures CONSULT TO UROLOGY OFFICE/OUTPATIENT NEW HIGH MDM 60 MINUTES Davis May MD [address] [place] [address] Referral ID Status Reason Start Date Expiration Date V isits Requested Visits Authorized [id number] Closed PCP Requested Referral 04/14/2024 04/14/2025 1 1 Reason Comments Cirrhosis Hepatitis Reason Onset Date Comments Refill Request 05/21/2024 Reason Comments sinus congestion Chest Congestion Cough Reason Comments Acute Visit Chest congestion and cough Reason Onset Date Comments Refill Request 05/30/2024 Reason Onset Date Comments Refill Request 06/01/2024 Reason Onset Date Comments Refill Request 06/06/2024 Reason Onset Date Comments Refill Request 06/09/2024 Reason Comments Follow Up 8 month follow up Reason Onset Date Comments Refill Request 06/16/2024 Reason Comments Orders [facility] notes faxed to [place] Reason Comments Actinic Keratosis Follow Up Reason Comments Asset Card 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 - Other Reason Comments Follow Up Autoimmune hepatitis Reason Onset Date Comments Refill Request 08/31/2024 Reason Onset Date Comments ACM MISHEL RN 08/31/2024 [facility] Reason Onset Date Comments ACM MISHEL RN 09/04/2024 [facility] Reason Onset Date Comments Refill Request 09/02/2024 Reason Comments Patient Update [facility]- Pharmacy Consul t- denial Reason Comments Recheck Follow up- neck pain Reason Comments Neck Pain Specialty Diagnoses / Procedures Referred By Contac t Referred To Contact [facility] [place] Diagnoses Neck pain Procedures [facility]SULT TO [facility] OFFICE/OUTPATIENT [facility] MDM 60 MINUTES Obdulia Martínez, JUDICIAL CLERK.UTILIZATION REVIEWER [address] [place] [address] Phone: tel: fax: Referral ID Status Reason Start Date Expiration Date V isits Requested Visits Authorized [id number] Closed PCP Requested Referral 10/03/2024 10/03/2025 1 1 Specialty Diagnoses / Procedures Referred By Contac t Referred To Contact CT IMAGING Diagnoses Spinal stenosis of cervical region Procedures CT CERVICAL SPINE WO IVCON CT CERVICAL SPINE W/O CONTRAST MATERIAL Obdulia Martínez, SAMANTHA.UTILIZATION REVIEWER [address] [place] [address] Phone: tel: fax: [facility] [place] [phone] Referral ID Status Reason Start Date Expiration Date V isits Requested Visits Authorized [id number] Closed Auto-Generate d Referral 10/03/2024 11/02/2025 1 1 Reason Comments Results Cervical CT Scan Reason Comments Neck Pain Follow Up Reason Comments Cardiac Clearance Anticoagulation Specialty Diagnoses / Procedures Referred By Contac t Referred To Contact CT IMAGING Diagnoses Portal vein thrombosis Procedures CTA ABD/PEL W IVCON CT ANGIO ABD&PLVIS CNTRST MTRL W/WO CNTRST Jose Laboy MD [address] [place] [id number] Phone: tel: fax: [facility] [place] [id number] Referral ID Status Reason Start Date Expiration Date V isits Requested Visits Authorized [id number] Closed Auto-Generate d Referral 08/07/2024 09/06/2025 1 1 Reason Onset Date Comments Refill Request 11/09/2024 Reason Comments Follow Up Care Teams (unrecognized sec tion and content) Staffing Branch Manager Relationship Specialty Start Date End Date Davis May MD [address] [place] [address] PCP - General Family Practice 10/11/20 Nova Shahid MD [address] [place] [address] Primary Staff Physician Cardiology 11/19/20 Staffing Branch Manager Relationship Specialty Start Date End Date Davis May MD [address] [place] [address] PCP - General Family Practice 10/11/20 Nova Shahid MD [address] [place] [address] Primary Staff Physician Cardiology 11/19/20 Staffing Branch Manager Relationship Specialty Start Date End Date Davis May MD [address] [place] [address] PCP - General Family Practice 10/11/20 Nova Shahid MD [address] [place] [address] Primary Staff Physician Cardiology 11/19/20 Staffing Branch Manager Relationship Specialty Start Date End Date Davis May MD [address] [place] [address] PCP - General Family Practice 10/11/20 Nova Shahid MD [address] [place] [address] Primary Staff Physician Cardiology 11/19/20 Staffing Branch Manager Relationship Specialty Start Date End Date Davis May MD [address] [place] [address] PCP - General Family Practice 10/11/20 Nova Shahid MD [address] [place] [address] Primary Staff Physician Cardiology 11/19/20 Staffing Branch Manager Relationship Specialty Start Date End Date Davis May MD [address] [place] [address] PCP - General Family Practice 10/11/20 Nova Shahid MD [address] [place] [address] Primary Staff Physician Cardiology 11/19/20 Staffing Branch Manager Relationship Specialty Start Date End Date Davis May MD [address] [place] [address] PCP - General Family Practice 10/11/20 Nova Shahid MD [address] [place] [address] Primary Staff Physician Cardiology 11/19/20 Staffing Branch Manager Relationship Specialty Start Date End Date Davis May MD [address] [place] [address] PCP - General Family Practice 10/11/20 Nova Shahid MD [address] [place] [address] Primary Staff Physician Cardiology 11/19/20 Staffing Branch Manager Relationship Specialty Start Date End Date Davis May MD [address] [place] [address] PCP - General Family Practice 10/11/20 Nova Shahid MD [address] [place] [address] Primary Staff Physician Cardiology 11/19/20 Staffing Branch Manager Relationship Specialty Start Date End Date Davis May MD [address] [place] [address] PCP - General Family Practice 10/11/20 Nova Shahid MD [address] [place] [address] Primary Staff Physician Cardiology 11/19/20 Staffing Branch Manager Relationship Specialty Start Date End Date Davis May MD [address] [place] [address] PCP - General Family Practice 10/11/20 Nova Shahid MD [address] [place] [address] Primary Staff Physician Cardiology 11/19/20 Staffing Branch Manager Relationship Specialty Start Date End Date Davis May MD [address] [place] [address] PCP - General Family Practice 10/11/20 Nova Shahid MD [address] [place] [address] Primary Staff Physician Cardiology 11/19/20 Staffing Branch Manager Relationship Specialty Start Date End Date Davis May MD [address] [place] [address] PCP - General Family Practice 10/11/20 Nova Shahid MD [address] [place] [address] Primary Staff Physician Cardiology 11/19/20 Staffing Branch Manager Relationship Specialty Start Date End Date Davis May MD [address] [place] [address] PCP - General Family Practice 10/11/20 Nova Shahid MD [address] [place] [address] Primary Staff Physician Cardiology 11/19/20 Staffing Branch Manager Relationship Specialty Start Date End Date Davis May MD [address] [facility] [address] PCP - General Family Practice 10/11/20 Nova Shahid MD [address] [place] [address] Primary Staff Physician Cardiology 11/19/20 Staffing Branch Manager Relationship Specialty Start Date End Date Davis May MD [address] [place] [address] PCP - General Family Medicine 10/11/20 Nova Shahid MD [address] [place] [address] Primary Staff Physician Cardiology 11/19/20 Staffing Branch Manager Relationship Specialty Start Date End Date Davis May MD [address] [place] [address] PCP - General Family Medicine 10/11/20 Nova Shahid MD [address] [place] [address] Primary Staff Physician Cardiology 11/19/20 Staffing Branch Manager Relationship Specialty Start Date End Date Davis May MD [address] [place] [address] PCP - General Family Medicine 10/11/20 Nova Shahid MD [address] [place] [address] Primary Staff Physician Cardiology 11/19/20 Staffing Branch Manager Relationship Specialty Start Date End Date Davis aMy MD [address] [place] [address] PCP - General Family Medicine 10/11/20 Nova Shahid MD [address] [place] [address] Primary Staff Physician Cardiology 11/19/20 Staffing Branch Manager Relationship Specialty Start Date End Date Davis May MD [address] [place] [address] PCP - General Family Medicine 10/11/20 Nova Shahid MD [address] [place] [address] Primary Staff Physician Cardiology 11/19/20 Staffing Branch Manager Relationship Specialty Start Date End Date Davis May MD [address] [place] [address] PCP - General Family Medicine 10/11/20 Nova Shahid MD [address] [place] [address] Primary Staff Physician Cardiology 11/19/20 Staffing Branch Manager Relationship Specialty Start Date End Date Davis May MD [address] [place] [address] PCP - General Family Medicine 10/11/20 Nova Shahid MD [address] [place] [address] Primary Staff Physician Cardiology 11/19/20 Staffing Branch Manager Relationship Specialty Start Date End Date Davis May MD [address] [place] [address] PCP - General Family Medicine 10/11/20 Nova Shahid MD [address] [place] [address] Primary Staff Physician Cardiology 11/19/20 Staffing Branch Manager Relationship Specialty Start Date End Date Davis May MD [address] [place] [address] PCP - General Family Medicine 10/11/20 Nova Shahid MD [address] [place] [address] Primary Staff Physician Cardiology 11/19/20 Staffing Branch Manager Relationship Specialty Start Date End Date Davis May MD [address] [place] [address] PCP - General Family Medicine 10/11/20 Nova Shahid MD [address] [place] [address] Primary Staff Physician Cardiology 11/19/20 Staffing Branch Manager Relationship Specialty Start Date End Date Davis May MD [address] [place] [address] PCP - General Family Medicine 10/11/20 Nova Shahid MD [address] [place] [address] Primary Staff Physician Cardiology 11/19/20 Staffing Branch Manager Relationship Specialty Start Date End Date Davis May MD [address] [place] [address] PCP - General Family Medicine 10/11/20 Nova Shahid MD [address] [place] [address] Primary Staff Physician Cardiology 11/19/20 Staffing Branch Manager Relationship Specialty Start Date End Date Davis May MD [address] [place] [address] PCP - General Family Medicine 10/11/20 Nova Shahid MD [address] [place] [address] Primary Staff Physician Cardiology 11/19/20 Staffing Branch Manager Relationship Specialty Start Date End Date Davis May MD [address] [place] [address] PCP - General Family Medicine 10/11/20 Nova Shahid MD [address] [place] [address] Primary Staff Physician Cardiology 11/19/20 Staffing Branch Manager Relationship Specialty Start Date End Date Davis May MD [address] [place] [address] PCP - General Family Medicine 10/11/20 Nova Shahid MD [address] [place] [address] Primary Staff Physician Cardiology 11/19/20 Staffing Branch Manager Relationship Specialty Start Date End Date Davis May MD [address] [place] [address] PCP - General Family Medicine 10/11/20 Nova Shahid MD [address] [place] [address] Primary Staff Physician Cardiology 11/19/20 Staffing Branch Manager Relationship Specialty Start Date End Date Davis May MD [address] [place] [address] PCP - General Family Medicine 10/11/20 Nova Shahid MD [address] [place] [address] Primary Staff Physician Cardiology 11/19/20 Staffing Branch Manager Relationship Specialty Start Date End Date Davis May MD [address] [place] [address] PCP - General Family Medicine 10/11/20 Nova Shahid MD [address] [place] [address] Primary Staff Physician Cardiology 11/19/20 Staffing Branch Manager Relationship Specialty Start Date End Date Davis May MD [facility] [place] [address] PCP - General Family Medicine 10/11/20 Nova Shahid MD [address] [place] [address] Primary Staff Physician Cardiology 11/19/20 Staffing Branch Manager Relationship Specialty Start Date End Date Davis May MD [address] [place] [address] PCP - General Family Medicine 10/11/20 Nova Shahid MD [address] [place] [address] Primary Staff Physician Cardiology 11/19/20 Staffing Branch Manager Relationship Specialty Start Date End Date Davis May MD [address] [place] [address] PCP - General Family Medicine 10/11/20 Nova Shahid MD [address] [place] [address] Primary Staff Physician Cardiology 11/19/20 Staffing Branch Manager Relationship Specialty Start Date End Date Davis May MD [address] [place] [address] PCP - General Family Medicine 10/11/20 Nova Shahid MD [address] [place] [address] Primary Staff Physician Cardiology 11/19/20 Staffing Branch Manager Relationship Specialty Start Date End Date Davis May MD [address] [place], [place] 136421 PCP - General Family Medicine 10/11/20 Nova Shahid MD [address] [place] [address] Primary Staff Physician Cardiology 11/19/20 Staffing Branch Manager Relationship Specialty Start Date End Date Davis May MD [address] [place] [address] PCP - General Family Medicine 10/11/20 Nova Shahid MD [address] [place] [address] Primary Staff Physician Cardiology 11/19/20 Staffing Branch Manager Relationship Specialty Start Date End Date Davis May MD [address] [place] [address] PCP - General Family Medicine 10/11/20 Nova Shahid MD [address] [place] [address] Primary Staff Physician Cardiology 11/19/20 Staffing Branch Manager Relationship Specialty Start Date End Date Davis May MD [address] [place] [address] PCP - General Family Medicine 10/11/20 Nova Shahid MD [address] [place] 8438395 Primary Staff Physician Cardiology 11/19/20 Staffing Branch Manager Relationship Specialty Start Date End Date Davis May MD [address] [place], [place] 803381 PCP - General Family Medicine 10/11/20 Nova Shahid MD [address] [place] [address] Primary Staff Physician Cardiology 11/19/20 Staffing Branch Manager Relationship Specialty Start Date End Date Davis May MD [address] [place], [place] 709471 PCP - General Family Medicine 10/11/20 Nova Shahid MD [address] [place], [place] 41413[address] Primary Staff Physician Cardiology 11/19/20 Staffing Branch Manager Relationship Specialty Start Date End Date Davis May MD [address] [place] [address] PCP - General Family Medicine 10/11/20 Nova Shahid MD [address] [place] [address] Primary Staff Physician Cardiology 11/19/20 Staffing Branch Manager Relationship Specialty Start Date End Date Davis May MD [address] [place], [place] 992941 PCP - General Family Medicine 10/11/20 Nova Shahid MD [address] [place] [address] Primary Staff Physician Cardiology 11/19/20 Staffing Branch Manager Relationship Specialty Start Date End Date Davis May MD [address] [place], [place] 653101 PCP - General Family Medicine 10/11/20 Nova Shahid MD [address] [place] [address] Primary Staff Physician Cardiology 11/19/20 Staffing Branch Manager Relationship Specialty Start Date End Date Davis May MD [address] [place], [place] 383611 PCP - General Family Medicine 10/11/20 Nova Shahid MD [address] [place] [address] Primary Staff Physician Cardiology 11/19/20 Staffing Branch Manager Relationship Specialty Start Date End Date Davis May MD [address] [place], [place] 530651 PCP - General Family Medicine 10/11/20 Nova Shahid MD [address] [place] [address] Primary Staff Physician Cardiology 11/19/20 Staffing Branch Manager Relationship Specialty Start Date End Date Davis May MD [address] [place], [place] 717071 PCP - General Family Medicine 10/11/20 Nova Shahid MD [address] [place] [address] Primary Staff Physician Cardiology 11/19/20 Staffing Branch Manager Relationship Specialty Start Date End Date Davis May MD [address] [place], [place] 247511 PCP - General Family Medicine 10/11/20 Nova Shahid MD [address] [place] [address] Primary Staff Physician Cardiology 11/19/20 Team Status: Active Member Role Status Dates Dr. Gray Noguera III, MD Family Provider Active Dr. Davis May MD Primary Care Provider Active Team Status: Active Member Role Status Dates Dr. Esteban Renee MD Emergency Provider Active Dr. Davis May MD Primary Care Provider Active Dr. Bernadette Sharma DO Admit Provider, Attending Pr ovider Active Team Status: Active Member Role Status Dates Dr. Esteban Renee MD Emergency Provider Active Dr. Davis May MD Primary Care Provider Active Dr. Bernadette Sharma DO Admit Provider, Other Provid er Active Dr. Roselia Santos DO Other Provider Active Dr. Tommy Cronejo DO Attending Provider Active Team Status: Active Member Role Status Dates Dr. Esteban Renee MD Emergency Provider Active Dr. Davis May MD Primary Care Provider Active Dr. Bernadette Sharma DO Admit Provider, Other Provid er Active Dr. Roselia Santos DO Attending Provider, Other Provide r Active Team Status: Active Member Role Status Dates Dr. Davis May MD Primary Care Provider Active Dr. Tommy Cornejo DO Attending Provider Active Team Status: Active Member Role Status Dates Dr. Esteban Renee MD Emergency Provider Active Dr. Davis May MD Primary Care Provider Active Dr. Bernadette Sharma DO Admit Provider, Other Provid er Active Dr. Roselia Santos DO Other Provider Active Dr. Syed Salazar MD Attending Provider, Other Provi kaylin Active Dr. Bernadette Jernigan MD Other Provider Active Team Status: Inactive Member Role Status Dates Dr. Esteban Renee MD Emergency Provider Active Dr. Davis May MD Primary Care Provider Active Dr. Bernadette Sharma DO Admit Provider, Other Provid er Active Dr. Roselia Santos DO Other Provider Active Dr. Syed Salazar MD Attending Provider Active Dr. Bernadette Jernigan MD Other Provider Active Staffing Branch Manager Relationship Specialty Start Date End Date Davis May MD [address] [place], [place] 384331 PCP - General Family Medicine 10/11/20 Nova Shahid MD [address] [place], [place] 0417195 Primary Staff Physician Cardiology 11/19/20 Staffing Branch Manager Relationship Specialty Start Date End Date Davis May MD [address] [place], [place] 274801 PCP - General Family Medicine 10/11/20 Nova Shahid MD [address] [place] [address] Primary Staff Physician Cardiology 11/19/20 Staffing Branch Manager Relationship Specialty Start Date End Date Davis May MD [address] [place], [place] 433091 PCP - General Family Medicine 10/11/20 Nova Shahid MD [address] [place] [address] Primary Staff Physician Cardiology 11/19/20 Staffing Branch Manager Relationship Specialty Start Date End Date Davis May MD [address] [place], [place] 398791 PCP - General Family Medicine 10/11/20 Nova Shahid MD [address] [place], [place] 1594995 Primary Staff Physician Cardiology 11/19/20 Staffing Branch Manager Relationship Specialty Start Date End Date Davis May MD [address] [place], [place] 810398 PCP - General Family Medicine 10/11/20 Nova Shahid MD [address] [place], [place] 0004395 Primary Staff Physician Cardiology 11/19/20 Staffing Branch Manager Relationship Specialty Start Date End Date Davis May MD [address] [place], [place] 275631 PCP - General Family Medicine 10/11/20 Nova Shahid MD [address] [place], [place] 9573195 Primary Staff Physician Cardiology 11/19/20 Staffing Branch Manager Relationship Specialty Start Date End Date Davis May MD [address] [place] [address] PCP - General Family Medicine 10/11/20 Nova Shahid MD [address] [place] [address] Primary Staff Physician Cardiology 11/19/20 Staffing Branch Manager Relationship Specialty Start Date End Date Davis May MD [address] [place], [place] 332481 PCP - General Family Medicine 10/11/20 Nova Shahid MD [address] [place] [address] Primary Staff Physician Cardiology 11/19/20 Staffing Branch Manager Relationship Specialty Start Date End Date Davis May MD [address] [place], [place] 878741 PCP - General Family Medicine 10/11/20 Nova Shahid MD [address] [place] [address] Primary Staff Physician Cardiology 11/19/20 Staffing Branch Manager Relationship Specialty Start Date End Date Davis May MD [address] [place], [place] 265401 PCP - General Family Medicine 10/11/20 Nova Shahid MD [address] [place] [address] Primary Staff Physician Cardiology 11/19/20 Staffing Branch Manager Relationship Specialty Start Date End Date Davis May MD [facility] [place], [place] 575651 PCP - General Family Medicine 10/11/20 Nova Shahid MD [address] [place] [address] Primary Staff Physician Cardiology 11/19/20 Staffing Branch Manager Relationship Specialty Start Date End Date Davis May MD [address] [place], [place] 410941 PCP - General Family Medicine 10/11/20 Nova Shahid MD [address] [place] [address] Primary Staff Physician Cardiology 11/19/20 Staffing Branch Manager Relationship Specialty Start Date End Date Davis May MD [address] [place], [place] 767131 PCP - General Family Medicine 10/11/20 Nova Shahid MD [address] [place] [address] Primary Staff Physician Cardiology 11/19/20 Staffing Branch Manager Relationship Specialty Start Date End Date Davis May MD [address] [place], [place] 201671 PCP - General Family Medicine 10/11/20 Nova Shahid MD [address] [place] [address] Primary Staff Physician Cardiology 11/19/20 Staffing Branch Manager Relationship Specialty Start Date End Date Davis May MD [address] [place], [place] 221021 PCP - General Family Medicine 10/11/20 Nova Shahid MD [address] [place] [address] Primary Staff Physician Cardiology 11/19/20 Staffing Branch Manager Relationship Specialty Start Date End Date Davis May MD [address] [place], [place] 689521 PCP - General Family Medicine 10/11/20 Nova Shahid MD [address] [place] [address] Primary Staff Physician Cardiology 11/19/20 Staffing Branch Manager Relationship Specialty Start Date End Date Davis May MD [address] [place], [place] 493471 PCP - General Family Medicine 10/11/20 Nova Shahid MD [address] [place], [place] 7736395 Primary Staff Physician Cardiology 11/19/20 Staffing Branch Manager Relationship Specialty Start Date End Date Davis May MD [address] [place], [place] 838181 PCP - General Family Medicine 10/11/20 Nova Shahid MD [address] [place] [address] Primary Staff Physician Cardiology 11/19/20 Staffing Branch Manager Relationship Specialty Start Date End Date Davis May MD [address] [place], [place] 73379691 PCP - General Family Medicine 10/11/20 Nova Shahid MD [address] [place] [place], [place] 9267595 Primary Staff Physician Cardiology 11/19/20 Derrek Bear MD [address] [place], [place] 0572795 Gastroenterology 12/02/23 Staffing Branch Manager Relationship Specialty Start Date End Date Davis May MD [address] [place], [place] 229231 PCP - General Family Medicine 10/11/20 Nova Shahid MD [address] [place], [place] 6428795 Primary Staff Physician Cardiology 11/19/20 Staffing Branch Manager Relationship Specialty Start Date End Date Davis May MD [address] [place], [place] 308511 PCP - General Family Medicine 10/11/20 Nova Shahid MD [address] [place], [place] 4604595 Primary Staff Physician Cardiology 11/19/20 Derrek Bear MD [address] [place], [place] 9179195 Gastroenterology 12/02/23 Staffing Branch Manager Relationship Specialty Start Date End Date Davis May MD [address] [place], [place] 530591 PCP - General Family Medicine 10/11/20 Nova Shahid MD [address] [place], [place] 8698095 Primary Staff Physician Cardiology 11/19/20 Derrek Bear MD [address] [place], [place] 5964295 Gastroenterology 12/02/23 Staffing Branch Manager Relationship Specialty Start Date End Date Davis May MD [address] [place] [address] PCP - General Family Medicine 10/11/20 Nova Shahid MD [address] [place] [address] Primary Staff Physician Cardiology 11/19/20 Derrek Bear MD [address] [place] [address] Gastroenterology 12/02/23 Staffing Branch Manager Relationship Specialty Start Date End Date Davis May MD [address] [place], [place] 382851 PCP - General Family Medicine 10/11/20 Nova Shahid MD [address] [place] [address] Primary Staff Physician Cardiology 11/19/20 Derrek Bear MD [address] [place] [address] Gastroenterology 12/02/23 Staffing Branch Manager Relationship Specialty Start Date End Date Davis May MD [address] [place], [place] 098821 PCP - General Family Medicine 10/11/20 Nova Shahid MD [address] [place], [place] 3462795 Primary Staff Physician Cardiology 11/19/20 Derrek Bear MD [address] [place] [address] Gastroenterology 12/02/23 Staffing Branch Manager Relationship Specialty Start Date End Date Davis May MD [address] [place], [place] 72445691 PCP - General Family Medicine 10/11/20 Nova Shahid MD [address] [place], [place] 1566095 Primary Staff Physician Cardiology 11/19/20 Derrek Bear MD [address] [place], [place] 3786195 Gastroenterology 12/02/23 Staffing Branch Manager Relationship Specialty Start Date End Date Davis May MD [address] [place], [place] 704191 PCP - General Family Medicine 10/11/20 Nova Shahid MD [address] [place], [place] 7400295 Primary Staff Physician Cardiology 11/19/20 Derrek Bear MD [address] [place], [place] 4666795 Gastroenterology 12/02/23 Staffing Branch Manager Relationship Specialty Start Date End Date Davis May MD [address] [place], [place] 939481 PCP - General Family Medicine 10/11/20 Nova Shahid MD [address] [place], [place] 1305495 Primary Staff Physician Cardiology 11/19/20 Derrek Bear MD [address] [place], [place] 1708095 Gastroenterology 12/02/23 Staffing Branch Manager Relationship Specialty Start Date End Date Davis May MD [address] [place], [place] 820161 PCP - General Family Medicine 10/11/20 Nova Shahid MD [address] [place] [address] Primary Staff Physician Cardiology 11/19/20 Derrek Bear MD [address] [place] [address] Gastroenterology 12/02/23 Staffing Branch Manager Relationship Specialty Start Date End Date Davis May MD [address] [place] [address] PCP - General Family Medicine 10/11/20 Nova Shahid MD [address] [place] [place], [place] 2559095 Primary Staff Physician Cardiology 11/19/20 Derrek Bear MD [address] [place] [address] Gastroenterology 12/02/23 Staffing Branch Manager Relationship Specialty Start Date End Date Davis May MD [address] [place] [address] PCP - General Family Medicine 10/11/20 Nova Shahid MD [address] [place] [address] Primary Staff Physician Cardiology 11/19/20 Derrek Bear MD [address] [place] [address] Gastroenterology 12/02/23 Staffing Branch Manager Relationship Specialty Start Date End Date Davis May MD [address] [place] [address] PCP - General Family Medicine 10/11/20 Nova Shahid MD [address] [place], [place] 7443695 Primary Staff Physician Cardiology 11/19/20 Derrek Bear MD [address] [place], [place] 0189595 Gastroenterology 12/02/23 Staffing Branch Manager Relationship Specialty Start Date End Date Davis May MD [address] [place] [address] PCP - General Family Medicine 10/11/20 Nova Shahid MD [address] [place], [place] 2676095 Primary Staff Physician Cardiology 11/19/20 Staffing Branch Manager Relationship Specialty Start Date End Date Davis May MD [address] [place], [place] 976401 PCP - General Family Medicine 10/11/20 Nova Shahid MD [address] [place] [address] Primary Staff Physician Cardiology 11/19/20 Derrek Bear MD [address] [place], [place] 4532695 Gastroenterology 12/02/23 Obdulia Martínez APRN.CNP [address] [place], [place] [id number] [facility] 02/28/24 Sanna Larsen, JUDICIAL CLERK.UTILIZATION REVIEWER [address] [place] [address] [facility] 02/28/24 Staffing Branch Manager Relationship Specialty Start Date End Date Davis May MD [address] [place] [address] PCP - General Family Medicine 10/11/20 Nova Shahid MD [address] [place], [place] 5666595 Primary Staff Physician Cardiology 11/19/20 Derrek Bear MD [address] [place], [place] 4409995 Gastroenterology 12/02/23 Obdulia Martínez, JUDICIAL CLERK.UTILIZATION REVIEWER [address] [place], [place] [address] [facility] 02/28/24 Sanna Larsen, JUDICIAL CLERK.UTILIZATION REVIEWER [address] [place] [address] [facility] 02/28/24 Staffing Branch Manager Relationship Specialty Start Date End Date Davis May MD [address] [place] [address] PCP - General Family Medicine 10/11/20 Nova Shahid MD [address] [place] [address] Primary Staff Physician Cardiology 11/19/20 Derrek Bear MD [address] [place] [address] Gastroenterology 12/02/23 Obdulia Martínez APRN.UTILIZATION REVIEWER [address] [facility] [place] [address] [employer]hold Appliances Salesperson Family Medicine 02/28/24 Sanna Larsen APRN.UTILIZATION REVIEWER [address] [place] [address] Household Appliances Salesperson Family Medicine 02/28/24 Staffing Branch Manager Relationship Specialty Start Date End Date Davis May MD [address] [place], [place] 184231 PCP - General Family Medicine 10/11/20 Nova Shahid MD [address] [place] [address] Primary Staff Physician Cardiology 11/19/20 Derrek Bear MD [address] [place] [address] Gastroenterology 12/02/23 Obdulia Martínez APRN.UTILIZATION REVIEWER [address] [place] [address] Household Appliances Salesperson Family Medicine 02/28/24 Sanna Larsen APRN.UTILIZATION REVIEWER [address] [place] [address] Household Appliances Salesperson Family [facility] 02/28/24 Staffing Branch Manager Relationship Specialty Start Date End Date Davis May MD [address] [place], [place] 752931 PCP - General Family Medicine 10/11/20 Nova Shahid MD [address] [place] 3948295 Primary Staff Physician Cardiology 11/19/20 Derrek Bear MD [address] [place], [place] [id number] Gastroenterology 12/02/23 Obdulia Martínez APRN.UTILIZATION REVIEWER [address] [place] [address] Household Appliances Salesperson [facility] 02/28/24 Sanna Larsen APRN.UTILIZATION REVIEWER [address] [place] [address] [facility] 02/28/24 Staffing Branch Manager Relationship Specialty Start Date End Date Davis May MD [address] [place], [place] 026251 PCP - General Family Medicine 10/11/20 Nova Shahid MD [address] [place], [place] 6158395 Primary Staff Physician Cardiology 11/19/20 Derrek Bear MD [address] [place], [place] [id number] Gastroenterology 12/02/23 Obdulia Martínez APRN.UTILIZATION REVIEWER [address] [place] [address] Household Appliances Salesperson Family [facility] 02/28/24 Sanna Larsen APRN.UTILIZATION REVIEWER [address] [place] [address] Household Appliances Salesperson Family [facility] 02/28/24 Denae Coombs, RN [address] [place], [place] [phone] Primary Care [employer] 04/03/24 Staffing Branch Manager Relationship Specialty Start Date End Date Davis May MD [address] [place] [address] PCP - General Family Medicine 10/11/20 Nova Shahid MD [address] [place] [address] Primary Staff Physician Cardiology 11/19/20 Derrek Bear MD [address] [place] [address] Gastroenterology 12/02/23 Obdulia Martínez JUDICIAL CLERK.UTILIZATION REVIEWER [address] [place] [address] [facility] 02/28/24 Sanna Larsen JUDICIAL CLERK.UTILIZATION REVIEWER [address] [place] [address] Household Appliances Salesperson Family [facility] 02/28/24 Denae Coombs, ADRIENNE [address] [place] [address] Primary Care [employer] 04/03/24 Staffing Branch Manager Relationship Specialty Start Date End Date Davis May MD [address] [place] [address] PCP - General Family Medicine 10/11/20 Nova Shahid MD [address] [place], [place] 2792595 Primary Staff Physician Cardiology 11/19/20 Derrek Bear MD [address] [place] [address] Gastroenterology 12/02/23 Obdulia Martínez APRN.UTILIZATION REVIEWER [address] [place] [address] Household Appliances Salesperson Family [facility] 02/28/24 Sanna Larsen APRN.UTILIZATION REVIEWER [address] [place] [address] Household Appliances Salesperson Family [facility] 02/28/24 Denae Coombs, ADRIENNE [address] [place] [address] [phone] Primary Care Rubber Turner 04/03/24 Staffing Branch Manager Relationship Specialty Start Date End Date Davis May MD [address] [place], [place] 763311 PCP - General Family Medicine 10/11/20 Nova Shahid MD [address] [place] [address] Primary Staff Physician Cardiology 11/19/20 Derrek Bear MD [address] [place], [place] [id number] Gastroenterology 12/02/23 Obdulia Martínez APRN.UTILIZATION REVIEWER [address] [place] [address] Household Appliances Salesperson Family [facility] 02/28/24 Sanna Larsen APRN.UTILIZATION REVIEWER [address] [place] [address] Household Appliances Salesperson Family [facility] 02/28/24 Denae Coombs, RN [address] [place], [place] [phone] Primary Care [employer] 04/03/24 Staffing Branch Manager Relationship Specialty Start Date End Date Davis May MD [address] [place] [address] PCP - General Family Medicine 10/11/20 Nova Shahid MD [address] [place] [address] Primary Staff Physician Cardiology 11/19/20 Derrek Bear MD [address] [place] [address] Gastroenterology 12/02/23 Obdulia Martínez, JUDICIAL CLERK.UTILIZATION REVIEWER [address] [place] [address] [facility] 02/28/24 Sanna Larsen, JUDICIAL CLERK.UTILIZATION REVIEWER [address] [place] [address] Household Appliances Salesperson Family [facility] 02/28/24 Denae Coombs, ADRIENNE [address] [place] [address] Primary Care Rubber Turner 04/03/24 Staffing Branch Manager Relationship Specialty Start Date End Date Davis May MD [address] [place] [address] PCP - General Family Medicine 10/11/20 Nova Shahid MD [address] [place] [address] Primary Staff Physician Cardiology 11/19/20 Derrek Bear MD [address] [place] [address] Gastroenterology 12/02/23 Obdulia Martínez APRN.UTILIZATION REVIEWER [address] [place] [address] Household Appliances Salesperson [facility] 02/28/24 Sanna Larsen APRN.UTILIZATION REVIEWER [address] [place] [address] [facility]hold Appl[facility] 02/28/24 Denae Coombs, ADRIENNE [address] [place] [address] [phone] Primary Care Rubber Turner 04/03/24 Staffing Branch Manager Relationship Specialty Start Date End Date Davis May MD [address] [place], [place] 280391 PCP - General Family Medicine 10/11/20 Nova Shahid MD [address] [place] [address] Primary Staff Physician Cardiology 11/19/20 Derrek Bear MD [address] [place], [place] 0764895 Gastroenterology 12/02/23 Obdulia Martínez APRN.UTILIZATION REVIEWER [address] [place] [address] [facility] 02/28/24 Sanna Larsen APRN.UTILIZATION REVIEWER [address] [place] [address] Household Appliances Salesperson [facility] 02/28/24 Denae Coombs, RN [address] [place] [address] Primary Care Rubber Turner 04/03/24 Staffing Branch Manager Relationship Specialty Start Date End Date Davis May MD [address] [place] [address] PCP - General Family Medicine 10/11/20 Nova Shahid MD [address] [place] [address] Primary Staff Physician Cardiology 11/19/20 Derrek Bear MD [address] [place] [address] Gastroenterology 12/02/23 Obdulia Martínez, JUDICIAL CLERK.UTILIZATION REVIEWER [address] [place] [address] [facility] 02/28/24 Sanna Larsen, JUDICIAL CLERK.UTILIZATION REVIEWER [address] [place] [address] Household Appliances Salesperson Family [facility] 02/28/24 Denae Coombs, ADRIENNE [address] [place] [address] Primary Care Rubber Turner 04/03/24 Staffing Branch Manager Relationship Specialty Start Date End Date Davis May MD [address] [place] [address] PCP - General Family Medicine 10/11/20 Nova Shahid MD [address] [place] [address] Primary Staff Physician Cardiology 11/19/20 Derrek Bear MD [address] [place] [address] Gastroenterology 12/02/23 Obdulia Martínez APRN.UTILIZATION REVIEWER [address] [place] [address] Household Appliances Salesperson [facility] 02/28/24 Sanna Larsen APRN.UTILIZATION REVIEWER [address] [place] [address] [facility] 02/28/24 Denae Coombs, ADRIENNE [address] [place] [address] [phone] Primary Care [employer] 04/03/24 Staffing Branch Manager Relationship Specialty Start Date End Date Davis May MD [address] [place], [place] 248501 PCP - General Family Medicine 10/11/20 Nova Shahid MD [address] [place] [address] Primary Staff Physician Cardiology 11/19/20 Derrek Bear MD [address] [place], [place] 6591095 Gastroenterology 12/02/23 Obdulia Martínez APRN.UTILIZATION REVIEWER [address] [place] [address] [facility] 02/28/24 Sanna Larsen APRN.UTILIZATION REVIEWER [address] [place] [address] Household Appliances Salesperson [facility] 02/28/24 Denae Coombs, RN [address] [place] [address] Primary Care Rubber Turner 04/03/24 Staffing Branch Manager Relationship Specialty Start Date End Date Davis May MD [address] [place] [address] PCP - General Family Medicine 10/11/20 Nova Shahid MD [address] [place] [address] Primary Staff Physician Cardiology 11/19/20 Derrek Bear MD [address] [place] [address] Gastroenterology 12/02/23 Obdulia Martínez, JUDICIAL CLERK.UTILIZATION REVIEWER [address] [place] [address] [facility] 02/28/24 Sanna Larsen, JUDICIAL CLERK.UTILIZATION REVIEWER [address] [place] [address] Household Appliances Salesperson [facility] 02/28/24 Denae Coombs, ADRIENNE [address] [place] [address] Primary Care Rubber Turner 04/03/24 Staffing Branch Manager Relationship Specialty Start Date End Date Davis May MD [address] [place] [address] PCP - General Family Medicine 10/11/20 Nova Shahid MD [address] [place] [address] Primary Staff Physician Cardiology 11/19/20 Derrek Bear MD [address] [place] [address] Gastroenterology 12/02/23 Obdulia Martínez APRN.UTILIZATION REVIEWER [address] [place] [address] [facility] 02/28/24 Sanna Larsen APRN.UTILIZATION REVIEWER [address] [place] [address] [facility] 02/28/24 Denae Coombs, ADRIENNE [address] [place] [address] [phone] Primary Care Rubber Turner 04/03/24 Staffing Branch Manager Relationship Specialty Start Date End Date Davis May MD [address] [place], [place] 335471 PCP - General Family Medicine 10/11/20 Nova Shahid MD [address] [place] [address] Primary Staff Physician Cardiology 11/19/20 Derrek Bear MD [address] [place], [place] 0280695 Gastroenterology 12/02/23 Obdulia Martínez APRN.UTILIZATION REVIEWER [address] [place] [address] [facility] 02/28/24 Sanna Larsen APRN.UTILIZATION REVIEWER [address] [place] [address] Household Appliances Salesperson Family Medicine 02/28/24 Denae Coombs, RN [address] [place] [address] [phone] Primary Care Rubber Turner 04/03/24 05/01/24 Staffing Branch Manager Relationship Specialty Start Date End Date Davis May MD [address] [place] [address] PCP - General Family Medicine 10/11/20 Nova Shahid MD [address] [place], [place] 1695295 Primary Staff Physician Cardiology 11/19/20 Derrek Bear MD [address] [place] [address] Gastroenterology 12/02/23 Obdulia Martínez JUDICIAL CLERK.UTILIZATION REVIEWER [address] [place] [address] Household Appliances Salesperson Family [facility] 02/28/24 Sanna Larsen JUDICIAL CLERK.UTILIZATION REVIEWER [address] [place] [address] Household Appliances Salesperson Family [facility] 02/28/24 Staffing Branch Manager Relationship Specialty Start Date End Date Davis May MD [address] [place], [place] [id number] PCP - General Family Medicine 10/11/20 Nova Shahid MD [address] [place], [place] 6059995 Primary Staff Physician Cardiology 11/19/20 Derrek Bear MD [address] [place] [address] Gastroenterology 12/02/23 Obdulia Martínez APRN.UTILIZATION REVIEWER [address] [facility] [place] [address] Household Appliances Salesperson Family Medicine 02/28/24 Sanna Larsen APRN.UTILIZATION REVIEWER [address] [facility], [place] 469931 Household Appliances Salesperson [facility] 02/28/24 Staffing Branch Manager Relationship Specialty Start Date End Date Davis May MD [address] [facility], [place] 662901 PCP - General Family Medicine 10/11/20 Nova Shahid MD [address] [place] [address] Primary Staff Physician Cardiology 11/19/20 Derrek Bear MD [address] [place], [place] 0966595 Gastroenterology 12/02/23 Obdulia Martínez APRN.UTILIZATION REVIEWER [address] [facility] [place] [address] Household Appliances Salesperson Family Medicine 02/28/24 Sanna Larsen APRN.UTILIZATION REVIEWER [address] [facility] [address] Household Appliances Salesperson Family Medicine 02/28/24 Staffing Branch Manager Relationship Specialty Start Date End Date Davis May MD [address] [place] [address] PCP - General Family Medicine 10/11/20 Nova Shahid MD [address] [place] [place], [place] 8868195 Primary Staff Physician Cardiology 11/19/20 Derrek Bear MD [address] [place] [place], [place] 9250295 Gastroenterology 12/02/23 Obdulia Martínez APRN.UTILIZATION REVIEWER [address] [place] [address] Household Appliances Salesperson Family Medicine 02/28/24 Sanna Larsen APRN.UTILIZATION REVIEWER [address] [place] [address] Household Appliances Salesperson Family Medicine 02/28/24 Staffing Branch Manager Relationship Specialty Start Date End Date Davis May MD [address] [place] [address] PCP - General Family Medicine 10/11/20 Nova Shahid MD [address] [place] [address] Primary Staff Physician Cardiology 11/19/20 Derrek Bear MD [address] [place], [place] 1635595 Gastroenterology 12/02/23 Obdulia Martínez JUDICIAL CLERK.UTILIZATION REVIEWER [address] [place] [address] [facility] 02/28/24 Sanna Larsen, JUDICIAL CLERK.UTILIZATION REVIEWER [address] [place], [place] 448471 [facility] 02/28/24 Staffing Branch Manager Relationship Specialty Start Date End Date Davis May MD [address] [place], [place] 891051 PCP - General Family Medicine 10/11/20 Nova Shahid MD [address] [place] [place], [place] 4709295 Primary Staff Physician Cardiology 11/19/20 Derrek Bear MD [address] [place] [address] Gastroenterology 12/02/23 Obdulia Martínez APRN.UTILIZATION REVIEWER [address] [place] [address] [facility] 02/28/24 Sanna Larsen, JUDICIAL CLERK.UTILIZATION REVIEWER [address] [place] [address] [facility] 02/28/24 Staffing Branch Manager Relationship Specialty Start Date End Date Davis May MD [address] [place], [place] 150801 PCP - General Family Medicine 10/11/20 Nova Shahid MD [address] [place], [place] 7496695 Primary Staff Physician Cardiology 11/19/20 Derrek Bear MD [address] [place] [address] Gastroenterology 12/02/23 Obdulia Martínez APRN.UTILIZATION REVIEWER [address] [facility] [place] [address] Household Appliances Salesperson Family Medicine 02/28/24 Sanna Larsen APRN.UTILIZATION REVIEWER [address] [facility] [address] Household Appliances Salesperson Family Medicine 02/28/24 Staffing Branch Manager Relationship Specialty Start Date End Date Davis May MD [address] [facility], [place] 080551 PCP - General Family Medicine 10/11/20 Nova Shahid MD [address] [place] [address] Primary Staff Physician Cardiology 11/19/20 Derrek Bear MD [address] [place], [place] 1925895 Gastroenterology 12/02/23 Obdulia Martínez APRN.UTILIZATION REVIEWER [address] [facility] [place] [address] Household Appliances Salesperson Family Medicine 02/28/24 Sanna Larsen APRN.UTILIZATION REVIEWER [address] [facility] [address] Household Appliances Salesperson Family Medicine 02/28/24 Staffing Branch Manager Relationship Specialty Start Date End Date Davis May MD [address] [place] [address] PCP - General Family Medicine 10/11/20 Nova Shahid MD [address] [place] [place], [place] 3921795 Primary Staff Physician Cardiology 11/19/20 Derrek Bear MD [address] [place], [place] 4986595 Gastroenterology 12/02/23 Obdulia Martínez APRN.UTILIZATION REVIEWER [address] [facility] [place] [address] Household Appliances Salesperson Family Medicine 02/28/24 Sanna Larsen APRN.UTILIZATION REVIEWER [address] [place] [address] Household Appliances Salesperson Family [facility] 02/28/24 Staffing Branch Manager Relationship Specialty Start Date End Date Davis May MD [address] [facility] [place] [place] 468751 PCP - General Family Medicine 10/11/20 Nova Shahid MD [address] [place] [address] Primary Staff Physician Cardiology 11/19/20 Derrek Bear MD [address] [place], [place] 3617895 Gastroenterology 12/02/23 Obdulia Martínez APRN.UTILIZATION REVIEWER [address] [place], [place] 15682691 Household Appliances Salesperson Family Medicine 02/28/24 Sanna Larsen, JUDICIAL CLERK.UTILIZATION REVIEWER [address] [facility] [address] [facility]hold Appliances [facility] 02/28/24 Staffing Branch Manager Relationship Specialty Start Date End Date Davis May MD [address] [facility], [place] 037121 PCP - General Family Medicine 10/11/20 Nova Shahid MD [address] [place], [place] 2534795 Primary Staff Physician Cardiology 11/19/20 Derrek Bear MD [address] [place], [place] 1603195 Gastroenterology 12/02/23 Obdulia Martínez, JUDICIAL CLERK.UTILIZATION REVIEWER [address] [facility] [place] [address] Household Appliances [facility] 02/28/24 Sanna Larsen, JUDICIAL CLERK.UTILIZATION REVIEWER [address] [facility] [address] Household Appliances [facility] 02/28/24 Staffing Branch Manager Relationship Specialty Start Date End Date Davis May MD [address] [place] [address] PCP - General Family Medicine 10/11/20 Nova Shahid MD [address] [place] [address] Primary Staff Physician Cardiology 11/19/20 Derrek Bear MD [address] [place] [address] Gastroenterology 12/02/23 Obdulia Martínez APRN.UTILIZATION REVIEWER [address] [place] [address] Household Appliances Salesperson Family [facility] 02/28/24 Sanna Larsen APRN.UTILIZATION REVIEWER [address] [place] [address] Household Appliances Salesperson Family [facility] 02/28/24 Riddhi Brower, glass cutter handManager [employer] 05/22/24 Staffing Branch Manager Relationship Specialty Start Date End Date Davis May MD [address] [place] [address] PCP - General Family Medicine 10/11/20 Nova Shahid MD [address] [place] [address] Primary Staff Physician Cardiology 11/19/20 Derrek Bear MD [address] [place] [address] Gastroenterology 12/02/23 Obdulia Martínez APRN.UTILIZATION REVIEWER [address] [place] [address] Household Appliances Salesperson Family [facility] 02/28/24 Sanna Larsen APRN.UTILIZATION REVIEWER [address] [place] [address] Household Appliances Salesperson Family [facility] 02/28/24 Riddhi Brower, glass cutter handManager [employer] 05/22/24 Staffing Branch Manager Relationship Specialty Start Date End Date Davis May MD [address] [place] [address] PCP - General Family Medicine 10/11/20 Nova Shahid MD [address] [place] [place], [place] 8099595 Primary Staff Physician Cardiology 11/19/20 Derrek Bear MD [address] [place], [place] 5942595 Gastroenterology 12/02/23 Obdulia Martínez APRN.UTILIZATION REVIEWER [address] [place] [address] Household Appliances Salesperson Family Medicine 02/28/24 Sanna Larsen APRN.UTILIZATION REVIEWER [address] [place] [address] Household Appliances Salesperson Family [facility] 02/28/24 Riddhi Brower, glass cutter handManager [employer] 05/22/24 Staffing Branch Manager Relationship Specialty Start Date End Date Davis May MD [address] [place] [address] PCP - General Family Medicine 10/11/20 Nova Shahid MD [address] [place] [place], [place] 7794295 Primary Staff Physician Cardiology 11/19/20 Derrek Bear MD [address] [place] [place], [place] 7414895 Gastroenterology 12/02/23 Obdulia Martínez APRN.UTILIZATION REVIEWER [address] [place] [address] Household Appliances Salesperson [facility] 02/28/24 Sanna Larsen APRN.UTILIZATION REVIEWER [address] [place] [address] Household Appliances Salesperson [facility] 02/28/24 Riddhi Brower, glass cutter handManager [employer] 05/22/24 Staffing Branch Manager Relationship Specialty Start Date End Date Davis May MD [address] [place] [address] PCP - General Family Medicine 10/11/20 Nova Shahid MD [address] [place] [address] Primary Staff Physician Cardiology 11/19/20 Derrek Bear MD [address] [place] [address] Gastroenterology 12/02/23 Obdulia Martínez APRN.UTILIZATION REVIEWER [address] [place] [address] [facility]hold Appliances [facility] 02/28/24 Sanna Larsen JUDICIAL CLERK.UTILIZATION REVIEWER [address] [place] [address] Household Appliances [facility] 02/28/24 Riddhi Brower, glass cutter handManager [employer] 05/22/24 Staffing Branch Manager Relationship Specialty Start Date End Date Davis May MD [address] [place] [address] PCP - General Family Medicine 10/11/20 Nova Shahid MD [address] [place] [place], [place] 7105595 Primary Staff Physician Cardiology 11/19/20 Derrek Bear MD [address] [place] [address] Gastroenterology 12/02/23 Obdulia Martínez APRN.UTILIZATION REVIEWER [address] [facility] [place] [address] Household Appliances Salesperson Family Medicine 02/28/24 Sanna Larsen APRN.UTILIZATION REVIEWER [address] [place] [address] Household Appliances Salesperson Family Medicine 02/28/24 Riddhi Brower, glass cutter handManager [employer] 05/22/24 Staffing Branch Manager Relationship Specialty Start Date End Date Davis May MD [address] [place] [address] PCP - General Family Medicine 10/11/20 Nova Shahid MD [address] [place] [place], [place] 3773695 Primary Staff Physician Cardiology 11/19/20 Derrek Bear MD [address] [place] [place], [place] 7217795 Gastroenterology 12/02/23 Obdulia Martínez APRN.UTILIZATION REVIEWER [address] [facility] [place] [address] Household Appliances Salesperson Family [facility] 02/28/24 Sanna Larsen APRN.UTILIZATION REVIEWER [address] [place] [address] Household Appliances Salesperson Family [facility] 02/28/24 Riddhi Brower, glass cutter handManager [employer] 05/22/24 Staffing Branch Manager Relationship Specialty Start Date End Date Davis May MD [address] [place] [address] PCP - General Family Medicine 10/11/20 Nova Shahid MD [address] [place] [place], [place] 1220995 Primary Staff Physician Cardiology 11/19/20 Derrek Bear MD [address] [place] [place], [place] 5610795 Gastroenterology 12/02/23 Obdulia Martínez APRN.UTILIZATION REVIEWER [address] [place] [address] Household Appliances Salesperson Family [facility] 02/28/24 Sanna Larsen APRN.UTILIZATION REVIEWER [address] [place] [address] Household Appliances Salesperson [facility] 02/28/24 Riddhi Brower, glass cutter handManager [employer] 05/22/24 Staffing Branch Manager Relationship Specialty Start Date End Date Davis May MD [address] [place] [address] PCP - General Family Medicine 10/11/20 Nova Shahid MD [address] [place] [place], [place] 6281795 Primary Staff Physician Cardiology 11/19/20 Derrek Bear MD [address] [place] [address] Gastroenterology 12/02/23 Obdulia Martínez APRN.UTILIZATION REVIEWER [address] [place] [address] Household Appliances Salesperson [facility] 02/28/24 Sanna Larsen APRN.UTILIZATION REVIEWER [address] [place] [address] Household Appliances [facility] 02/28/24 Riddhi Brower, glass cutter handManager [employer] 05/22/24 Staffing Branch Manager Relationship Specialty Start Date End Date Davis May MD [address] [place], [place] [id number] PCP - General Family Medicine 10/11/20 Nova Shahid MD [address] [place] [address] Primary Staff Physician Cardiology 11/19/20 Derrek Bear MD [address] [place], [place] [id number] Gastroenterology 12/02/23 Obdulia Martínez APRN.UTILIZATION REVIEWER [address] [place] [address] Household Appliances [facility] 02/28/24 Sanna Larsen APRN.UTILIZATION REVIEWER [address] [place] [address] Household Appliances [facility]person[facility] 02/28/24 Denae Coombs, ADRIENNE [address] [place] [address] Primary Care Rubber Turner 04/03/24 05/01/24 Riddhi Brower, glass cutter handManager [employer] 05/22/24 Staffing Branch Manager Relationship Specialty Start Date End Date Davis May MD [address] [place], [place] 912451 PCP - General Family Medicine 10/11/20 Nova Shahid MD [address] [place], [place] [id number] Primary Staff Physician Cardiology 11/19/20 Derrke Bear MD [address] [place], [place] [id number] Gastroenterology 12/02/23 Obdulia Martínez, JUDICIAL CLERK.UTILIZATION REVIEWER [address] [place] [address] Household Appliances Salesperson Family [facility] 02/28/24 Sanna Larsen JUDICIAL CLERK.UTILIZATION REVIEWER [address] [place] [address] Household Appliances Salesperson Family Medicine 02/28/24 Riddhi Brower, glass cutter handManager [employer] 05/22/24 Jaycee Ochoa, ADRIENNE Specialty Asset Card Clerk Hematology 07/17/24 Staffing Branch Manager Relationship Specialty Start Date End Date Davis May MD [address] [place] [address] PCP - General Family Medicine 10/11/20 Nova Shahid MD [address] [place] [place], [place] [id number] Primary Staff Physician Cardiology 11/19/20 Derrek Bear MD [address] [place] [address] Gastroenterology 12/02/23 Obdulia Martínez APRN.UTILIZATION REVIEWER [address] [place] [address] Household Appliances Salesperson [facility] 02/28/24 Sanna Larsen APRN.UTILIZATION REVIEWER [address] [place] [address] [facility] 02/28/24 Riddhi Brower, glass cutter handManager [employer] 05/22/24 Staffing Branch Manager Relationship Specialty Start Date End Date Davis May MD [address] [place], [place] 302671 PCP - General Family Medicine 10/11/20 Nova Shahid MD [address] [place], [place] 7089395 Primary Staff Physician Cardiology 11/19/20 Derrek Bear MD [address] [place], [place] [id number] Gastroenterology 12/02/23 Obdulia Martínez APRN.UTILIZATION REVIEWER [address] [place] [address] [facility]hold Appl[facility] 02/28/24 Sanna Larsen APRN.UTILIZATION REVIEWER [address] [place] [address] Household Appliances Salesperson Family [facility] 02/28/24 Riddhi Brower, glass cutter handManager [employer] 05/22/24 Ochoa, Jaycee Silvia, RN Specialty Asset Card Clerk Hematology 07/17/24 Staffing Branch Manager Relationship Specialty Start Date End Date Davis May MD [address] [place], [place] 380201 PCP - General Family Medicine 10/11/20 Nova Shahid MD [address] [place] [place], [place] 6752995 Primary Staff Physician Cardiology 11/19/20 Derrek Bear MD [address] [place], [place] 8165495 Gastroenterology 12/02/23 Obdulia Martínez APRN.UTILIZATION REVIEWER [address] [place], [place] 220791 Household Appliances Salesperson Family [facility] 02/28/24 Sanna Larsen JUDICIAL CLERK.UTILIZATION REVIEWER [address] [place], [place] 976521 Household Appliances Salesperson Family [facility] 02/28/24 Riddhi Brower, glass cutter handManager [employer] 05/22/2407/24/24 Jaycee Ochoa, RN Specialty Asset Card Clerk Hematology 07/17/24 Staffing Branch Manager Relationship Specialty Start Date End Date Davis May MD [address] [place], [place] 457251 PCP - General Family Medicine 10/11/20 Nova Shahid MD [address] [place] [place], [place] 1932995 Primary Staff Physician Cardiology 11/19/20 Derrek Bear MD [address] [place], [place] 5596395 Gastroenterology 12/02/23 Obdulia Martínez APRN.UTILIZATION REVIEWER [address] [place], [place] 092911 Household Appliances Salesperson [facility] 02/28/24 Sanna Larsen APRN.UTILIZATION REVIEWER [address] [place], [place] 651711 Household Appliances Salesperson Family [facility] 02/28/24 Riddhi Brower, glass cutter handManager [employer] 05/22/2407/24/24 Jaycee Ochoa RN Specialty Asset Card Clerk Hematology 07/17/24 Staffing Branch Manager Relationship Specialty Start Date End Date Davsi May MD [address] [place], [place] [id number] PCP - General Family Medicine 10/11/20 Nova Shahid MD [address] [place], [place] 2636995 Primary Staff Physician Cardiology 11/19/20 Derrek Bear MD [address] [place], [place] 7738195 Gastroenterology 12/02/23 Obdulia Martínez APRN.UTILIZATION REVIEWER [address] [place], [place] 988601 [facility] 02/28/24 Sanna Larsen APRN.UTILIZATION REVIEWER [address] [place], [place] 882521 Household Appliances Salesperson Family [facility] 02/28/24 Riddhi Brower, glass cutter handManager [employer] 05/22/2407/24/24 Jaycee Ochoa, RN Specialty Asset Card Clerk Hematology 07/17/24 Staffing Branch Manager Relationship Specialty Start Date End Date Davis May MD [address] [place], [place] [id number] PCP - General Family Medicine 10/11/20 Nova Shahid MD [address] [place], [place] 9434095 Primary Staff Physician Cardiology 11/19/20 Derrek Bear MD [address] [place] [address] Gastroenterology 12/02/23 Obdulia Martínez APRN.UTILIZATION REVIEWER [address] [place] [address] Household Appliances Salesperson Family [facility] 02/28/24 Sanna Larsen JUDICIAL CLERK.UTILIZATION REVIEWER [address] [place] [address] Household Appliances Salesperson Family [facility] 02/28/24 Jaycee Ochoa, ADRIENNE Specialty Asset Card Clerk Hematology 07/17/24 Staffing Branch Manager Relationship Specialty Start Date End Date Davis May MD [address] [place] [address] PCP - General Family Medicine 10/11/20 Nova Shahid MD [address] [place] [address] Primary Staff Physician Cardiology 11/19/20 Derrek Bear MD [address] [place] [address] Gastroenterology 12/02/23 Obdulia Martínez, SAMANTHA.UTILIZATION REVIEWER [address] [place], [place] 155491 [facility] 02/28/24 Sanna Larsen APRN.UTILIZATION REVIEWER [address] [place], [place] 776621 [facility] 02/28/24 Jaycee Ochoa, RN Specialty Asset Card Clerk Hematology 07/17/24 Staffing Branch Manager Relationship Specialty Start Date End Date Davis May MD [address] [place], [place] [id number] PCP - General Family Medicine 10/11/20 Nova Shahid MD [address] [place] [address] Primary Staff Physician Cardiology 11/19/20 Derrek Bear MD [address] [place] [address] Gastroenterology 12/02/23 Obdulia Martínez, JUDICIAL CLERK.UTILIZATION REVIEWER [address] [place] [address] [facility] 02/28/24 Sanna Larsen JUDICIAL CLERK.UTILIZATION REVIEWER [address] [place], [place] [phone] [facility] 02/28/24 Jaycee Ochoa, RN Specialty Asset Card Clerk Hematology 07/17/24 Staffing Branch Manager Relationship Specialty Start Date End Date Davis May MD [address] [place], [place] 825411 PCP - General Family Medicine 10/11/20 Nova Shahid MD [address] [place], [place] 1223895 Primary Staff Physician Cardiology 11/19/20 Derrek Bear MD [address] [place], [place] 4760395 Gastroenterology 12/02/23 Obdulia Martínez, SAMANTHA.UTILIZATION REVIEWER [address] [place] [address] Household Appliances Salesperson Family [facility] 02/28/24 Sanna aLrsen APRN.UTILIZATION REVIEWER [address] [place] [address] [phone] Household Appliances Salesperson Family [facility] 02/28/24 Riddhi Brower, glass cutter handManager [employer] 05/22/2407/24/24 Jaycee Ochoa, ADRIENNE Specialty Asset Card Clerk Hematology 07/17/24 Staffing Branch Manager Relationship Specialty Start Date End Date Davis May MD [address] [place], [place] [id number] PCP - General Family Medicine 10/11/20 Nova Shahid MD [address] [place] [address] Primary Staff Physician Cardiology 11/19/20 Derrek Bear MD [address] [place], [place] 1402095 Gastroenterology 12/02/23 Obdulia Martínez, JUDICIAL CLERK.UTILIZATION REVIEWER [address] [place], [place] 121101 Household Appliances Salesperson Family [facility] 02/28/24 Sanna Larsen APRN.UTILIZATION REVIEWER [address] [place], [place] 720481 Household Appliances Salesperson Family [facility] 02/28/24 Riddhi Brower, glass cutter handManager [employer] 05/22/2407/24/24 Jaycee Ochoa, ADRIENNE Specialty Asset Card Clerk Hematology 07/17/24 Team Status: Active Member Role Status Dates Dr. Davis May MD Primary Care Provider Active Team Status: Inactive Member Role Status Dates Dr. Davis May MD Primary Care Provider Active Start: April 14, 2024 End: April 14, 2024 YUSRA GUERRERO Attending Provider [facility] End: April 14, 2024 Team Status: Inactive Member Role Status Dates Dr. Davis May MD Primary Care Provider Active Start: August 06, 2024 End: August 06, 2024 Dr. Hay Rodríguez DO Emergency Provider Activ e Start: August 06, 2024 End: August 06, 2024 Staffing Branch Manager Relationship Specialty Start Date End Date Davis May MD [address] [place], [place] 470071 PCP - General Family Medicine 10/11/20 Nova Shahid MD [address] [place] [address] Primary Staff Physician Cardiology 11/19/20 Derrek Bear MD [address] [place] [address] Gastroenterology 12/02/23 Obdulia Martínez APRN.UTILIZATION REVIEWER [address] [place], [place] 298381 [facility]hold [facility] 02/28/24 Sanna Larsen, JUDICIAL CLERK.UTILIZATION REVIEWER [address] [place], [place] 189911 [facility] 02/28/24 Jaycee Ochoa, ADRIENNE Specialty Asset Card Clerk Hematology 07/17/24 Staffing Branch Manager Relationship Specialty Start Date End Date Davis May MD [address] [place], [place] 045281 PCP - General Family Medicine 10/11/20 [place] [address] [place] [address] [id number] Primary Staff Physician Cardiology 11/19/20 Derrek Bear MD [address] [place] [address] Gastroenterology 12/02/23 Obdulia Martínez, JUDICIAL CLERK.UTILIZATION REVIEWER [address] [place], [place] 081191 [facility] 02/28/24 Sanna Larsen, JUDICIAL CLERK.UTILIZATION REVIEWER [address] [place], [place] 526321 Household Appliances [facility] 02/28/24 Jaycee Ochoa, ADRIENNE Specialty Asset Card Clerk Hematology 07/17/24 Lana Jo MD [facility] [place] [address] Physician Hematology/Oncology 08/11/24 [place] [address] [place] [address] Specialty Asset Card Clerk Hematology/Oncology 08/11/24 Staffing Branch Manager Relationship Specialty Start Date End Date Davis May MD [address] [place], [place] [id number] PCP - General Family Medicine 10/11/20 Nova Shahid MD [address] [place], [place] 2683695 Primary Staff Physician Cardiology 11/19/20 Derrek Bear MD [address] [place], [place] 4038895 Gastroenterology 12/02/23 Obdulia Martínez APRN.UTILIZATION REVIEWER [address] [place] [address] [phone] Household Appliances Salesperson [facility] 02/28/24 Sanna Larsen JUDICIAL CLERK.UTILIZATION REVIEWER [facility] [place], [place] [phone] Household Appliances Salesperson [facility] 02/28/24 Jaycee Ochoa, ADRIENNE Specialty Asset Card Clerk Hematology 07/17/24 [place] [address] [place] [address] [phone] Physician Hematology/Oncology 08/11/24 Breann Foster, ADRIENNE [address] [place] [address] Specialty Asset Card Clerk Hematology/Oncology 08/11/24 Staffing Branch Manager Relationship Specialty Start Date End Date Davis May MD 0 [place], [place] [id number] PCP - General Family Medicine 10/11/20 Nova Shahid MD [address] [place], [place] 5990595 Primary Staff Physician Cardiology 11/19/20 Derrek Bear MD [address] [place], [place] 8754495 Gastroenterology 12/02/23 Obdulia Martínez, JUDICIAL CLERK.UTILIZATION REVIEWER [address] [place], [place] 054751 Household Appliances Salesperson [facility] 02/28/24 Sanna Larsen, JUDICIAL CLERK.UTILIZATION REVIEWER [address] [place], [place] 660561 [facility] 02/28/24 Jaycee Ochoa, RN Specialty Asset Card Clerk Hematology 07/17/24 Lana Jo MD [address] [place] [address] [phone] Physician Hematology/Oncology 08/11/24 [place] [address] [place], [place] 8848606 Specialty Asset Card Clerk Hematology/Oncology 08/11/24 Staffing Branch Manager Relationship Specialty Start Date End Date Davis May MD [address] [place], [place] 213391 PCP - General Family Medicine 10/11/20 Nova Shahid MD [address] [place], [place] 7105895 Primary Staff Physician Cardiology 11/19/20 Derrek Bear MD [address] [place] [address] Gastroenterology 12/02/23 Obdulia Martínez APRN.UTILIZATION REVIEWER [address] [place] [address] Household Appliances Salesperson [facility] 02/28/24 Sanna Larsen APRN.UTILIZATION REVIEWER [address] [place] [address] Household Appliances Salesperson [facility] 02/28/24 Jaycee Ochoa RN Specialty Asset Card Clerk Hematology 07/17/24 Lana Jo MD [address] [place] [phone] Physician Hematology/Oncology 08/11/24 [place] [address] [place] [phone] Specialty Asset Card Clerk Hematology/Oncology 08/11/24 Team Status: Active Member Role/Relationship Status Dates Dr. Davis May MD Primary Care Provider Active Team Status: Inactive Member Role/Relationship Status Dates Dr. Davis May MD Primary Care Provider Active Start: August 06, 2024 End: August 06, 2024 Dr. Hay Rodríguez , DO Attending Provider Activ e Start: August 06, 2024 End: August 06, 2024 Dr. Hay Rodríguez , DO Emergency Provider Activ e Start: August 06, 2024 End: August 06, 2024 Team Status: Inactive Member Role/Relationship Status Dates Dr. Davis May MD Primary Care Provider Active Start: August 29, 2024 End: August 29, 2024 Obdulia Martínez ENAMEL DRIER, ENAMEL DRIER-C Attending Provider Active Start: August 29, 2024 End: August 29, 2024 Obdulia Martínez ENAMEL DRIER, ENAMEL DRIER-C Referring Provider Active Start: August 29, 2024 End: August 29, 2024 Staffing Branch Manager Relationship Specialty Start Date End Date Davis May MD [address] [place], [place] 698281 PCP - General Family Medicine 10/11/20 Nova Shahid MD [address] [place], [place] 2732695 Primary Staff Physician Cardiology 11/19/20 Derrek Bear MD [address] [place] [address] Gastroenterology 12/02/23 Obdulia Martínez APRN.UTILIZATION REVIEWER [address] [place] [address] Household Appliances Salesperson Family [facility] 02/28/24 Sanna Larsen APRN.UTILIZATION REVIEWER [address] [place] [address] Household Appliances Salesperson Family [facility] 02/28/24 Jaycee Ochoa RN Specialty Asset Card Clerk Hematology 07/17/24 Lana Jo MD [address] [place] [address] [phone] Physician Hematology/Oncology 08/11/24 [place] [address] [place], [place] [phone] Specialty Asset Card Clerk Hematology/Oncology 08/11/24 Staffing Branch Manager Relationship Specialty Start Date End Date Davis May MD [facility]0 [place], [place] [id number] PCP - General Family Medicine 10/11/20 Nova Shahid MD [address] [place], [place] 1495595 Primary Staff Physician Cardiology 11/19/20 Derrek Bear MD [address] [place], [place] 8819995 Gastroenterology 12/02/23 Obdulia Martínez, JUDICIAL CLERK.UTILIZATION REVIEWER [address] [place], [place] 994571 Household Appliances [facility] 02/28/24 Sanna Larsen JUDICIAL CLERK.UTILIZATION REVIEWER [address] [place], [place] [phone] [facility] 02/28/24 Jaycee Ochoa RN Specialty Asset Card Clerk Hematology 07/17/24 Lana Jo MD [address] [place] [address] [phone] Physician Hematology/Oncology 08/11/24 [place] [address] [place], [place] 7024306 Specialty Asset Card Clerk Hematology/Oncology 08/11/24 Staffing Branch Manager Relationship Specialty Start Date End Date Davis May MD [address] [place], [place] [id number] PCP - General Family Medicine 10/11/20 Nova Shahid MD [address] [place], [place] 1295995 Primary Staff Physician Cardiology 11/19/20 Derrek Bear MD [address] [place], [place] 7185495 Gastroenterology 12/02/23 Obdulia Martínez, JUDICIAL CLERK.UTILIZATION REVIEWER [address] [place] [address] Household Appliances Salesperson Family [facility] 02/28/24 Sanna Larsen APRN.UTILIZATION REVIEWER [address] [place] [address] Household Appliances Salesperson Family [facility] 02/28/24 Jaycee Ochoa, ADRIENNE Specialty Asset Card Clerk Hematology 07/17/24 Lana Jo MD [address] [place] [address] [phone] Physician Hematology/Oncology 08/11/24 [place] [address] [place] [address] Specialty Asset Card Clerk Hematology/Oncology 08/11/24 Staffing Branch Manager Relationship Specialty Start Date End Date Davis May MD [address] [place] [address] [id number] PCP - General Family Medicine 10/11/20 [place] [address] [place] [address] Primary Staff Physician Cardiology 11/19/20 Derrek Bear MD [address] [place] [address] Gastroenterology 12/02/23 Obdulia Martínez APRN.UTILIZATION REVIEWER [address] [place], [place] 078331 Household Appliances [facility] 02/28/24 Sanna Larsen JUDICIAL CLERK.UTILIZATION REVIEWER [address] [place], [place] [phone] Household Appliances [facility] 02/28/24 Jaycee Ochoa, RN Specialty Asset Card Clerk Hematology 07/17/24 Lana Jo MD [address] [place], [place] 1730995 Physician Hematology/Oncology 08/11/24 [place] [address] [place], [place] [phone] Specialty Asset Card Clerk Hematology/Oncology 08/11/24 Staffing Branch Manager Relationship Specialty Start Date End Date Davis May MD [address] [place], [place] [id number] PCP - General Family Medicine 10/11/20 Nova Shahid MD [address] [place] [address] [phone] Primary Staff Physician Cardiology 11/19/20 [place] [address] [place] [address] [phone] Gastroenterology 12/02/23 Obdulia Martínez APRN.UTILIZATION REVIEWER [facility]0 [place], [place] [phone] [facility] 02/28/24 Sanna Larsen, JUDICIAL CLERK.UTILIZATION REVIEWER [address] [place], [place] [phone] [facility] 02/28/24 Jaycee Ochoa, ADRIENNE Specialty Asset Card Clerk Hematology 07/17/24 Lana Jo MD [address] [place], [place] [phone] Physician Hematology/Oncology 08/11/24 Breann Foster RN [address] [place] [address] Specialty Asset Card Clerk Hematology/Oncology 08/11/24 Staffing Branch Manager Relationship Specialty Start Date End Date Davis May MD [address] [place], [place] 629701 PCP - General Family Medicine 10/11/20 Nova Shahid MD [address] [place], [place] [phone] Primary Staff Physician Cardiology 11/19/20 Derrek Bear MD [address] [place], [place] [phone] Gastroenterology 12/02/23 Obdulia Martínez APRN.UTILIZATION REVIEWER [address] [place] [address] [phone] Household Appliances Salesperson Family Medicine 02/28/24 Sanna Larsen APRN.UTILIZATION REVIEWER [facility]0 [place], [place] 248741 Household Appliances Salesperson Family Medicine 02/28/24 Jaycee Ochoa RN Specialty Asset Card Clerk Hematology 07/17/24 Lana Jo MD [address] [place], [place] [phone] Physician Hematology/Oncology 08/11/24 Breann Foster, ADRIENNE [address] [place] [address] Specialty Asset Card Clerk Hematology/Oncology 08/11/24 Staffing Branch Manager Relationship Specialty Start Date End Date Davis May MD [address] [place], [place] [id number] PCP - General Family Medicine 10/11/20 [place] [address] [place] [address] [phone] Primary Staff Physician Cardiology 11/19/20 Derrek Bear MD [address] [address] [phone] Gastroenterology 12/02/23 Obdulia Martínez APRN.UTILIZATION REVIEWER [address] [place] [address] [phone] Household Appliances Salesperson Family [facility] 02/28/24 Sanna Lasren APRN.UTILIZATION REVIEWER [address] [place] [address] [phone] Household Appliances Salesperson Family [facility] 02/28/24 Jaycee Ochoa, ADRIENNE Specialty Asset Card Clerk Hematology 07/17/24 Lana Jo MD [address] [place] [address] Physician Hematology/Oncology 08/11/24 [place] [address] [place], [place] 4809106 Specialty Asset Card Clerk Hematology/Oncology 08/11/24 Staffing Branch Manager Relationship Specialty Start Date End Date Davis May MD [facility]0 [place], [place] [id number] PCP - General Family Medicine 10/11/20 Nova Shahid MD [address] [place] [address] Primary Staff Physician Cardiology 11/19/20 Derrek Bear MD [address] [place], [place] [phone] Gastroenterology 12/02/23 Obdulia Martníez, SAMANTHA.UTILIZATION REVIEWER [address] [place], [place] 440611 Household Appliances Salesperson [facility] 02/28/24 Sanna Larsen JUDICIAL CLERK.UTILIZATION REVIEWER [address] [place], [place] 582411 [facility] 02/28/24 Jaycee Ochoa, RN Specialty Asset Card Clerk Hematology 07/17/24 Lana Jo MD [address] [place] [address] [phone] Physician Hematology/Oncology 08/11/24 [place] [address] [place], [place] 0745406 Specialty Asset Card Clerk Hematology/Oncology 08/11/24 Staffing Branch Manager Relationship Specialty Start Date End Date Davis May MD [address] [place], [place] [phone] PCP - General Family Medicine 10/11/20 Nova Shahid MD [address] [place] [address] Primary Staff Physician Cardiology 11/19/20 Derrek Bear MD [address] [place] [address] Gastroenterology 12/02/23 Obdulia Martínez, JUDICIAL CLERK.UTILIZATION REVIEWER [address] [place] [address] Household Appliances Salesperson [facility] 02/28/24 Sanna Larsen JUDICIAL CLERK.UTILIZATION REVIEWER [address] [place] [address] Household Appliances Salesperson [facility] 02/28/24 Jaycee Ochoa RN Specialty Asset Card Clerk Hematology 07/17/24 Lana Jo MD [address] [place] [address] Physician Hematology/Oncology 08/11/24 [place] [address] [place] [address] Specialty Asset Card Clerk Hematology/Oncology 08/11/24 Staffing Branch Manager Relationship Specialty [place] [address] [place] [address] PCP - General Family Medicine 10/11/20 Nova Shahid MD [address] [place] [address] 87570 Primary Staff Physician Cardiology 11/19/20 Derrek Bear MD [address] [place] [address] Gastroenterology 12/02/23 Obdulia Martínez APRN.UTILIZATION REVIEWER [address] [place], [place] 044341 [facility] 02/28/24 Sanna Larsen JUDICIAL CLERK.UTILIZATION REVIEWER [address] [place], [place] [phone] [facility] 02/28/24 Jaycee Ochoa, ADRIENNE Specialty Asset Card Clerk Hematology 07/17/24 Lana Jo MD [address] [place] [address] [phone] Physician Hematology/Oncology 08/11/24 [place] [address] [place], [place] [phone] Specialty Asset Card Clerk Hematology/Oncology 08/11/24 Staffing Branch Manager Relationship Specialty Start Date End Date Davis May MD [address] [place] [address] [id number] PCP - General Family Medicine 10/11/20 Nova Shahid MD [address] [place] [address] [phone] Primary Staff Physician Cardiology 11/19/20 Derrek Bear MD [address] [place] [address] [phone] Gastroenterology 12/02/23 Obdulia Martínez, JUDICIAL CLERK.UTILIZATION REVIEWER [address] [place] [address] [phone] [facility] 02/28/24 Sanna Larsen, JUDICIAL CLERK.UTILIZATION REVIEWER [address] [place], [place] 685701 [facility] 02/28/24 Jaycee Ochoa, ADRIENNE Specialty Asset Card Clerk Hematology 07/17/24 Lana Jo MD [address] [place] [address] Physician Hematology/Oncology 08/11/24 Breann Foster RN [address] [place] [address] 8[address]67 Specialty Asset Card Clerk Hematology/Oncology 08/11/24 Staffing Branch Manager Relationship Specialty Start Date End Date Davis May MD [address] [place], [place] 815311 PCP - General Family Medicine 10/11/20 Nova Shahid MD [address] [place] [address] [phone] Primary Staff Physician Cardiology 11/19/20 Derrek Bear MD [address] [place] [address] [phone] Gastroenterology 12/02/23 Obdulia Martínez, SAMANTHA.UTILIZATION REVIEWER [address] [place] [address] 04759 Household Appliances Salesperson Family Medicine 02/28/24 Sanna Larsen, JUDICIAL CLERK.UTILIZATION REVIEWER [address] [place] [address] 40843 Household Appliances Salesperson Family Medicine 02/28/24 Jaycee Ochoa RN Specialty Asset Card Clerk Hematology 07/17/24 [place] [address] [place] [address] [phone] Physician Hematology/Oncology 08/11/24 Breann Foster RN [address] [place] [address]674 Specialty Asset Card Clerk Hematology/Oncology 08/11/24 Staffing Branch Manager Relationship Specialty Start Date End Date Davis May MD [facility] [place], [place] [phone] PCP - General Family Medicine 10/11/20 Nova Shahid MD [address] [place], [place] [phone] Primary Staff Physician Cardiology 11/19/20 Derrek Bear MD [address] [place], [place] [phone] Gastroenterology 12/02/23 Obdulia Martínez APRN.UTILIZATION REVIEWER [address] [place], [place] [phone] [facility] 02/28/24 Sanna Larsen JUDICIAL CLERK.UTILIZATION REVIEWER [facility] [place], [place] [phone] [facility] 02/28/24 Jaycee Ochoa, ADRIENNE Specialty Asset Card Clerk Hematology 07/17/24 Lana Jo MD [address] [place], [place] [id number] Physician Hematology/Oncology 08/11/24 [place] [id number] [place], [place] [id number] Specialty Asset Card Clerk Hematology/Oncology 08/11/24 Staffing Branch Manager Relationship Specialty Start Date End Date Davis May MD [address] [place], [place] [id number] PCP - General Family Medicine 10/11/20 Nova Shahid MD [address] [place], [place] [id number] Primary Staff Physician Cardiology 11/19/20 Derrek Bear MD [address] [place] [address] Gastroenterology 12/02/23 Obdulia Martínez, SAMANTHA.UTILIZATION REVIEWER [address] [place], [place] [id number] Household Appliances Salesperson Family [facility] 02/28/24 Sanna Larsen JUDICIAL CLERK.UTILIZATION REVIEWER [facility] [place], [place] [id number] Household Appliances Salesperson [facility] 02/28/24 Jaycee Ochoa, ADRIENNE Specialty Asset Card Clerk Hematology 07/17/24 Lana Jo MD [address] [place] [address] [id number] Physician Hematology/Oncology 08/11/24 Breann Foster, ADRIENNE [address] [place], [place] [id number] Specialty Asset Card Clerk Hematology/Oncology 08/11/24 Staffing Branch Manager Relationship Specialty Start Date End Date Davis May MD [address] [place] [address] [id number] PCP - General Family Medicine 10/11/20 Nova Shahid MD [address] [place] [id number] Primary Staff Physician Cardiology 11/19/20 Derrek Bear MD [address] [place], [place] [phone] Gastroenterology 12/02/23 Obdulia Martínez APRN.UTILIZATION REVIEWER [facility] [place], [place] [phone] Household Appliances Salesperson Family Medicine 02/28/24 Sanna Larsen APRN.UTILIZATION REVIEWER [address] [place] [address] Household Appliances Salesperson Family Medicine 02/28/24 Jaycee Ochoa RN Specialty Asset Card Clerk Hematology 07/17/24 Lana Jo MD [address] [place] [address] Physician Hematology/Oncology 08/11/24 [place] [address] [place] [address] Specialty Asset Card Clerk Hematology/Oncology 08/11/24 Goals (unrecognized section and content) Goals may be documented in a n alternate sectionGoals may be documented in an alternate sectionGoals may be documented in an alternate sectionGoals may be documented in an alternate section Inactive Administered Medications - up to 3 most recent administrations Administered Medications (un recognized section and content) Medication Order MAR Action Action Date Dose Rate Site Aminolevulinic Acid HCl 20 % soln 1 Each 1 Each, TOPICAL, ONCE, 1 dose, On Wed06/22/23 at 1500, Use up to 2 sticks for treatment of previously indicated areas. Given 06/22/2023 1:30 PM EDT 1 Each Inactive Administered Medications - up to 3 most recent administrations Medication Order MAR Action Action Date Dose Rate Site iron sucrose iv piggyback 200 mg in NaCl 0.9% 100 mL (VENOFER) 200 mg, INTRAVENOUS, at 400 mL/hr, Administer over 15 Minutes, ONCE, 1 dose, On Wed06/23/23 at 1130, Please conduct a 30 minute post dose observation. Refrigerate New Bag/Syringe/Bottle 06/23/2023 11:24 AM EDT 200 mg 400 mL/hr Inactive Administered Medications - up to 3 most recent administrations Medication Order MAR Action Action Date Dose Rate Site iron sucrose iv piggyback 200 mg in NaCl 0.9% 100 mL (VENOFER) 200 mg, INTRAVENOUS, at 400 mL/hr, Administer over 15 Minutes, ONCE, 1 dose, On Wed06/25/23 at 1500, Please conduct a 30 minute post dose observation. Refrigerate New Bag/Syringe/Bottle 06/25/2023 3:09 PM EDT 200 mg 400 mL/hr Inactive Administered Medications - up to 3 most recent administrations Medication Order MAR Action Action Date Dose Rate Site iron sucrose iv piggyback 200 mg in NaCl 0.9% 100 mL (VENOFER) 200 mg, INTRAVENOUS, at 400 mL/hr, Administer over 15 Minutes, ONCE, 1 dose, On Wed06/28/23 at 0930, Please conduct a 30 minute post dose observation. Refrigerate New Bag/Syringe/Bottle 06/28/2023 9:19 AM EDT 200 mg 400 mL/hr Inactive Administered Medications - up to 3 most recent administrations Medication Order MAR Action Action Date Dose Rate Site iron sucrose iv piggyback 200 mg in NaCl 0.9% 100 mL (VENOFER) 200 mg, INTRAVENOUS, at 400 mL/hr, Administer over 15 Minutes, ONCE, 1 dose, On Wed06/30/23 at 1430, Please conduct a 30 minute post dose observation. Refrigerate New Bag/Syringe/Bottle 06/30/2023 2:14 PM EDT 200 mg 400 mL/hr Inactive Administered Medications - up to 3 most recent administrations Medication Order MAR Action Action Date Dose Rate Site iron sucrose iv piggyback 200 mg in NaCl 0.9% 100 mL (VENOFER) 200 mg, INTRAVENOUS, at 400 mL/hr, Administer over 15 Minutes, ONCE, 1 dose, On Wed07/02/23 at 1430, Please conduct a 30 minute post dose observation. Refrigerate New Bag/Syringe/Bottle 07/02/2023 2:41 PM EDT 200 mg 400 mL/hr Inactive Administered Medications - up to 3 most recent administrations Medication Order MAR Action Action Date Dose Rate Site benzocaine 20% (TOPEX) TOPICAL, X (OR/PROCEDURE) PRN, Starting on Wed07/06/23 at 0937, Until Wed07/06/23 at 0937, Intraprocedure Given 07/06/2023 9:37 AM EDT 1 [place] fentaNYL 50 mcg/mL injection (SUBLIMAZE) INTRAVENOUS, X (OR/PROCEDURE) PRN, Starting on Wed07/06/23 at 0938, Until 4/16/24 at 0941, Intraprocedure Given 07/06/2023 9:41 AM EDT 50 mcg Given 07/06/2023 9:38 AM EDT 50 mcg midazolam (PF) injection (VERSED) INTRAVENOUS, X (OR/PROCEDURE) PRN, Starting on Wed07/06/23 at 0938, Until Wed07/06/23 at 0944, Intraprocedure Given 07/06/2023 9:44 AM EDT 2 mg Given 07/06/2023 9:41 AM EDT 2 mg Given 07/06/2023 9:38 AM EDT 2 mg FOR RECORDS PERTAINING TO PATIENTS WHO ARE [...] BE BASED ON THE PRIMARY CLINICAL RECORDS. [facility]. provides no warranty or guarantee of the accuracy or completeness of information in this document.
--- NOTE | 2025-01-05 22:33 | RAD_ITS ---
PROCEDURE: CHEST PA AND LATERAL 01/05/2025 REASON FOR EXAM: COUGH TECHNIQUE: Procedure Code: RADCXR Modality: DX Procedure: CHEST PA AND LATERAL COMPARISON: None. FINDINGS: Devices: Left chest wall dual lead ICD in appropriate positioning. Lungs/Pleura: Clear. No pneumothorax or sizable pleural effusion. Heart/Mediastinum: Mildly enlarged. No significant vascular congestion. Bones/Soft tissues: Degenerative changes of the spine. Left humeral head prosthesis. RAD/Chest PA and Lateral IMPRESSION: Mild cardiomegaly. No appreciable airspace consolidation or pleural effusion. Reading Location: [id number]
--- NOTE | 2025-01-05 22:47 | EDS_ITS ---
HPI History of Present Illness Chief Complaint: Cold Sx Informant: patient and spouse/S.O. Narrative Narrative: Patient is a 74-year-old male with past medical history of autoimmune hepatitis and hypertension on immunosuppressive medication. He and his state they recently were on a cruise which they flew to and from. After returning from the cruise the patient began with increased congestion and cough. He denies any fevers associated with this. He states that he has concern for pneumonia as these types of symptoms have led to that in the past. He denies any history of lung pathology however such as asthma COPD or emphysema. He also denies any kn own sick contacts but with his recent vacation he is sure he was around other individuals who may have been sick. Secondary to concern for developing infection he presents for evaluation. [facility] Medical History Portal vein thrombosis Esophageal varices GERD (gastroesophageal reflux disease) HTN (hypertension) Hypertrophic cardiomyopathy Autoimmune hepatitis History of immunosuppression therapy Thrombocytopenia Home Medications ?Medication ?Instructions ?Recorded ?Last Taken ?Type clonidine HCl 0.1 mg tablet 1.5 tab PO BID 08/20/19 Un known History tacrolimus 1 mg capsule, 1 mg PO BID supplement 08/19 Unknown History immediate-release amlodipine 5 mg tablet 5 mg PO DAILY blood pressure 03/27/23 Unknown History metoprolol succinate 100 mg 100 mg PO Q12H heart 03/27 Unknown History tablet,extended release 24 hr mycophenolate mofetil 500 mg 500 mg PO BID organ rejec tion 03/27/23 Unknown History tablet (CellCept) Held on 03/29/23. Instructions: Hold for 7 days. Follow-up with Dr. Bear. probenecid 500 mg tablet 500 mg PO BID gout 03/27/23 Unknown History pantoprazole 40 mg tablet,delayed 40 mg PO BID #60 tab s 03/29/23 Unknown Rx release (Protonix) cyclobenzaprine 5 mg tablet 5 mg PO TID PRN muscle spa sm 3 08/06/24 Unknown Rx days #9 tabs doxycycline hyclate 100 mg capsule 100 mg PO BID 10 da ys #20 caps 01/05/25 Unknown Rx Allergy/AdvReac Type Severity Reaction Status Date / Time acetaminophen (From Vicodin) Allergy Anaphylaxis Verified 01/05/25 20:21 hydrocodone (From Vicodin) Allergy Anaphylaxis Verified 01/05/25 20:21 lidocaine Allergy Rash Verified 01/05/25 20:21 NSAIDS (Non-Steroidal Allergy Other Verified 01/05/25 20:21 Anti-Inflamma oxycodone Allergy Anaphylaxis Verified 01/05/25 20:21 Family History no significant family his Social History Smoking Status: Former smoker ROS ROS ED Constitutional Constitutional ED: Denies chills or fever(s) Eyes Eyes: Denies change in vision ENT ENT ED: Reports rhinorrhea and sore throat Cardiovascular Cardiovascular: Denies chest pain Respiratory/Chest Respiratory/Chest: Reports cough; Denies dyspnea Gastrointestinal Gastrointestinal: Denies abdominal pain, diarrhea, nausea or vomiting Genitourinary Genitourinary ED: Denies dysuria Musculoskeletal Musculoskeletal: Denies myalgias Integumentary Denies rash Neurologic Neurologic: Denies headache(s) Allergic/Immunologic Allergic/Immunologic ED: Denies mouth swelling or tongue swelling EXAM Physical Exam Const Vital Signs: 01/05/25 20:17 01/05/25 22:06 Temperature 99.2 F H Temperature Source Oral Pulse Rate 67 Respiratory Rate 18 Respiratory Effort Normal Non-Labored Respiratory Pattern Normal Blood Pressure 133/74 H Blood Pressure Mean 93 Pulse Ox 96 Oxygen Delivery Method Room Air Positive well nourished and well developed General Appearance ED: well developed; Negative for pallor HEENT HEENT Narrative: Bilateral TMs are retracted but show no secondary findings to suggest infection and bilateral canals are normal Nasal mucosa is hyperemic and boggy with inflamed/enlarged inferior nasal turbinate No tongue or lip swelling no oral lesions no airway edema or compromise There is cobblestoning in the posterior pharynx consistent with sinus drainage Eyes PERRL and EOMs intact bilaterally General Eye ED: Negative for scleral icterus Neck supple and no JVD Chest Wall palpation of chest normal Resp normal respiratory effort Resp Narrative: Breath sounds are diminished throughout with rhonchi in the bilateral lower lobes left greater than right but no signs of respiratory distress Cardio regular rate and regular rhythm Extremity normal to inspection Extremity Narrative: No asymmetric edema no pitting edema negative Homans' sign bilaterally Neuro oriented x3, CN's II-XII intact bilaterally and no sensory deficits noted Sensorium / Orientation: alert Motor Exam: strength 5/5 throughout Psych mental status grossly normal Skin no rashes or lesions noted General Skin Exam: Negative for jaundice or pallor MDM MDM MDM Narrative Medical decision making narrative: Patient arrived to the ER with stable vitals and he is in no acute respiratory distress. With his recent flight and cruise ship vacation there is high likelihood for viral infection. Therefore a COVID influenza and RSV swab was obtained. This revealed no acute findings. With his reported cough and concern for infection there is also possibility of pneumonia. Therefore chest x-ray was added. He does not have hypoxia or increased work of breathing he does not have vital sign changes to suggest sepsis and therefore I feel no need for blood work at this time. The patient's chest x-ray revealed no acute pneumonia and therefore the patient most likely has a viral URI. However because he is immunosuppressed I will cover him with antibiotics to ensure that we are not missing a early/developing infection. This plan of care was discussed with patient and and they are both agreeable to it. As he does not have signs of respiratory distress or hypoxia he is otherwise safe for discharge History & Record Review Discussion w/independent historian: Patient and Significant other Radiography Diagnostic Testing: Clinical Impression(s) from Imaging Studies Chest X-Ray 01/05/25 22:33 IMPRESSION: Mild cardiomegaly. No appreciable airspace consolidation or pleural effusion. Reading Location: [facility] 2 view chest x-ray as interpreted by the emergency medicine physician reveals no acute infiltrate pneumothorax or pleural effusion. Discharge Plan Triage Chief Complaint: Cold Sx ED Provider: Lonnie Mojica Dx/Rx/DC Orders Clinical Impression: Viral upper respiratory tract infection with cough, Autoimmune hepatitis, Hypertension Instructions: ED Upper Resp Infec Abx Tx Prescriptions: New doxycycline hyclate 100 mg capsule 100 mg PO BID 10 Days Qty: 20 0RF No Action clonidine HCl 0.1 MG tablet 1.5 tab PO BID tacrolimus 1 MG capsule 1 mg PO BID amlodipine 5 mg tablet 5 mg PO DAILY probenecid 500 mg tablet 500 mg PO BID mycophenolate mofetil [CellCept] 500 mg tablet 500 mg PO BID metoprolol succinate 100 mg tablet extended release 24 hr 100 mg PO Q12H pantoprazole [Protonix] 40 mg tablet,delayed release (DR/EC) 40 mg PO BID Qty: 60 2RF Rx Instructions: advised TWICE DAILY FOR 2 months THEN ONCE DAILY cyclobenzaprine 5 mg tablet 5 mg PO TID PRN (Reason: muscle spasm) 3 Days Qty: 9 0RF Primary Care Provider: Flako Ornelas Referrals: Flako Ornelas MD [Primary Care Provider, Medical] Activity Restrictions/Additional Instructions: Your viral swab for COVID influenza and RSV was negative. Your chest x-ray shows no acute pneumonia. However with your symptoms and immunosuppression there is concern for developing infection and therefore take the doxycycline/antibiotic as directed. If your symptoms are worsening or you have any further concerns please return to the ER for repeat evaluation. Print Language: Malaysian Disposition Disposition: Home, Self Care Discharge Date/Time: 01/05/25 23:53
== END 2025-01-05 23:53 | disposition home or self-care (01) ==
PROVIDERS: Emergency Provider Emergency Medicine; PCP Family Medicine; Visit Provider Emergency Medicine
DX: J06.9 Acute upper respiratory infection, unspecified (principal); K75.4 Autoimmune hepatitis; I10 Essential (primary) hypertension; D84.9 Immunodeficiency, unspecified; K21.9 Gastro-esophageal reflux disease without esophagitis; Z79.899 Other long term (current) drug therapy; Z87.891 Personal history of nicotine dependence
CPT/HCPCS: 71046; 87631; 99282

== ENCOUNTER 2025-02-20 12:17 | Emergency (ER) | payer MEDICARE, OTHER, SELFPAY ==
[2025-02-20 12:18] VITALS: BP 149/80; PULSE 55; RESP 16; TEMP 36.6; O2SAT 99; BMI 24.2
--- NOTE | 2025-02-20 12:47 | ED.VIS.FALL ---
HPI HPI - Fall History of Present Illness Chief Complaint: Fall Informant: patient Occured/Mechanism Occurred: Today Mechanism/Context: Yes same level fall and Yes trip Usually ambulates: Without assistance Pain/Injury Pain Location: lower extremity (Left hip pain. Skin tear right elbow.) Quality of Pain: Sharp Current Severity: Moderate Maximum Severity: Moderate Associated Symptoms Associated Symptoms: Positive for Inability to ambulate (Inability to put weight on his left hip.); Negative for Parasthesias, Weakness, Loss of function, Loss of consciousness or Amnesia Narrative Narrative: 74-year-old male history of hypertension, thrombocytopenia, anemia, portal vein thrombosis for which he is on Eliquis and autoimmune hepatitis. Was walking on a treadmill today at his home when he tripped and fell off the treadmill injuring his left hip and causing a skin tear of his right elbow. He remembers and said he [place] did not hit his head. He had no LOC. No headache. No neck or back pain. No chest or abdominal pain. He felt fine prior to the fall. Prior similar symptoms: No Recent Illness/Hospitalization: No [facility] Medical History Portal vein thrombosis Esophageal varices GERD (gastroesophageal reflux disease) HTN (hypertension) Hypertrophic cardiomyopathy Autoimmune hepatitis History of immunosuppression therapy Thrombocytopenia Home Medications ?Medication ?Instructions ?Recorded ?Last Taken ?Type clonidine HCl 0.1 mg tablet 1.5 tab PO BID 08/20/19 Unknown History tacrolimus 1 mg capsule, 1 mg PO BID supplement 08/20/19 Unknown History immediate-release amlodipine 5 mg tablet 5 mg PO DAILY blood pressure 03/27/23 Unknown History metoprolol succinate 100 mg 100 mg PO Q12H heart 03/27/23 Unknown History tablet,extended release 24 hr mycophenolate mofetil 500 mg 500 mg PO BID organ rejection 03/27/23 Unknown History tablet (CellCept) Held on 03/29/23. Instructions: Hold for 7 days. Follow-up with Dr. Bear. probenecid 500 mg tablet 500 mg PO BID gout 03/27/23 Unknown History pantoprazole 40 mg tablet,delayed 40 mg PO BID #60 tabs 03/29/23 Unknown Rx release (Protonix) cyclobenzaprine 5 mg tablet 5 mg PO TID PRN muscle spasm 3 08/06/24 Unknown Rx days #9 tabs doxycycline hyclate 100 mg capsule 100 mg PO BID 10 days #20 caps 01/05/25 Unknown Rx morphine 15 mg tablet,extended 15 mg PO Q12H 7 days #14 tabs 02/20/25 Unknown Rx release (MS Contin) Allergy/AdvReac Type Severity Reaction Status Date / Time hydrocodone (From Vicodin) Allergy Anaphylaxis Verified 02/20/25 12:22 lidocaine Allergy Rash Verified 02/20/25 12:22 NSAIDS (Non-Steroidal Allergy Other Verified 02/20/25 12:22 Anti-Inflamma oxycodone Allergy Anaphylaxis Verified 02/20/25 12:22 Social History Smoking Status: Former smoker ROS ROS ED ROS Narrative Denies recent illness. Constitutional Constitutional ED: Denies fever(s) Eyes Eyes: Denies blurry vision ENT ENT ED: Denies ear pain Cardiovascular Cardiovascular: Denies chest pain Respiratory/Chest Respiratory/Chest: Denies cough Gastrointestinal Gastrointestinal: Denies abdominal pain Genitourinary Genitourinary ED: Denies dysuria Musculoskeletal Musculoskeletal: Denies arthralgias Integumentary Denies abscess Neurologic Neurologic: Denies headache(s) Psychiatric Psychiatric: Denies anxiety or depression Endocrine Endocrinology: Denies polydipsia Hematologic/Lymphatic Hematologic/Lymphatic: Denies easy bleeding Allergic/Immunologic Allergic/Immunologic ED: Denies mouth swelling EXAM Physical Exam Narrative Exam Narrative: 34-year-old male sitting upright in bed vital signs are stable afebrile. Pulse ox 99% on room air no hypoxia. at bedside. H EENT exam pupils round react light. No signs of trauma to his face or scalp. Nontender no hematoma. No laceration. C-spine and back nontender. Trachea midline. Lungs clear to auscultation bilaterally. Heart regular rhythm rate about 60 no murmur. Chest wall ribs nontender. Abdomen soft nontender. Tenderness left hip pain with this range of motion left hip. No shortening or rotation. Knees ankles feet nontender normal dorsi plantarflexion. Normal sensation. Right hip nontender. Neurologically he is awake alert. He is answering questions following commands. No focal motor deficits. Const Vital Signs: 02/20/25 12:18 02/20/25 12:23 Temperature 97.8 F Temperature Source Oral Pulse Rate 55 L Respiratory Rate 16 Respiratory Effort Normal Non-Labored Respiratory Depth Normal Respiratory Pattern Normal Blood Pressure 149/80 H Blood Pressure Mean 103 Pulse Ox 99 Oxygen Delivery Method Room Air Room Air MDM MDM MDM Narrative Medical decision making narrative: 74-year-old male tripped and was thrown off his treadmill. Injuring his left hip. Abrasion to his right elbow and left lower leg. The abrasion will just be cleaned and bandaged. He is Full range of motion of right elbow does not neurologically he is awake alert he has no signs of head trauma and believes he did not hit his head. I do not think that needs CT. He will be given morphine for pain for his hip and x-ray of his hip pelvis will be obtained. Repeat exam around 1:30 PM patient's x-rays show no fracture or dislocation of left hip or pelvis. There is arthritis. There is no fracture seen. However when tried to walk him he had significant pain with trying to weight-bear. So we will order a CAT scan. I discussed this with the patient and his and went over the x-rays with him. They are comfortable with the plan to be given additional morphine. Repeat exam patient is doing well at 3 PM. X-ray showed arthritis CAT scan showed chronic changes again no fracture or dislocation. He and his are comfortable being discharged home. To be sent home on crutches. I suspect this is a hip contusion and strain. He has a defibrillator he cannot do an MRI. He will be discharged to home. 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 He will follow-up with orthopedics if not improving. I did speak to the radiologist to read the films. The initial reading of possible impacted fracture that same radiologist looked at the CAT scan and agrees there is no fracture he believes this is all arthritis. History & Record Review Discussion w/independent historian: Patient and Family Additional record(s) reviewed:: Prior outpatient record, Prior ED visit and Prior labs Radiography Diagnostic Testing: Clinical Impression(s) from Imaging Studies Hip/Pelvis X-Ray 02/20/25 13:08 IMPRESSION: Findings suggestive of a nondisplaced impacted left subcapital fracture of the proximal left femur. Degenerative changes of both hip joints with femoral acetabular impingement. Reading Location: [facility] Lower Extremity CT 02/20/25 13:27 IMPRESSION: No acute fractures. Reading Location: [facility] Left hip and pelvis x-ray, 4 views, interpreted by myself shows no acute fracture. No dislocation. There is arthritis of the left hip. Discharge Plan Triage Chief Complaint: Fall ED Provider: Milton Lamas Dx/Rx/DC Orders Clinical Impression: Fall, Contusion of hip, left, Strain of left groin, Osteoarthritis, History of autoimmune disease Instructions: ED Groin Strain (Adult), ED Hip Contusion Prescriptions: New morphine [MS Contin] 15 mg tablet extended release 15 mg PO Q12H 7 Days Qty: 14 0RF No Action clonidine HCl 0.1 MG tablet 1.5 tab PO BID tacrolimus 1 MG capsule 1 mg PO BID amlodipine 5 mg tablet 5 mg PO DAILY probenecid 500 mg tablet 500 mg PO BID mycophenolate mofetil [CellCept] 500 mg tablet 500 mg PO BID metoprolol succinate 100 mg tablet extended release 24 hr 100 mg PO Q12H pantoprazole [Protonix] 40 mg tablet,delayed release (DR/EC) 40 mg PO BID Qty: 60 2RF Rx Instructions: advised TWICE DAILY FOR 2 months THEN ONCE DAILY cyclobenzaprine 5 mg tablet 5 mg PO TID PRN (Reason: muscle spasm) 3 Days Qty: 9 0RF doxycycline hyclate 100 mg capsule 100 mg PO BID 10 Days Qty: 20 0RF Primary Care Provider: Flako Ornelas Referrals: Aleks Reinoso DO [Med Staff - Active Staff, Orthopedics] - 3-5 Days if not improving Flako Ornelas MD [Primary Care Provider, Medical] Activity Restrictions/Additional Instructions: Ice to your hip to decrease pain and inflammation. The MS Contin for pain. Plenty of fluids, fruits, vegetables and fiber to prevent constipation. Stool softener as needed. Follow-up with orthopedics, Dr. Reinoso if this is not improving. Nonweightbearing and slowly increase your weightbearing as tolerated. Print Language: Sierra Leonean Disposition Disposition: Home, Self Care
--- NOTE | 2025-02-20 13:08 | RAD_ITS ---
PROCEDURE: HIP, UNI W/ PELVIS 2-3 VIEWS 02/20/2025 REASON FOR EXAM: FELL OFF A TREAD MILL W/ LEFT HIP PAIN TECHNIQUE: Procedure Code: RAD Modality: DX Procedure: HIP, UNI W/ PELVIS 2-3 VIEWS Laterality: Left hip COMPARISON: None FINDINGS: Bones: I suspect an undisplaced impacted left subcapital fracture of the proximal left femur. Joints: Moderate degree of joint space narrowing of both hip joints. Findings suggestive of femoral acetabular impingement involving both hip joints. Soft tissues: Surgical clips are seen overlying the symphysis pubis. Other: Degenerative changes of the symphysis pubis. RAD/HIP, UNI W/ Pelvis 2-3 Views IMPRESSION: Findings suggestive of a nondisplaced impacted left subcapital fracture of the proximal left femur. Degenerative changes of both hip joints with femoral acetabular impingement. Reading Location: [id number]
--- NOTE | 2025-02-20 13:27 | CT_ITS ---
PROCEDURE: EXTREMITY LOWER WITHOUT CONTRA 02/20/2025 REASON FOR EXAM: LEFT HIP PAIN POST FALL. NO FRACTURE SEEN ON X-RA TECHNIQUE: Procedure Code: CTELWO Modality: CT Procedure: EXTREMITY LOWER WITHOUT CONTRA Coronal and Sagittal reconstruction series were provided One or more dose reduction techniques were used (e.g., Automated exposure control, adjustment of the mA and/or kV according to patient size, use of iterative reconstruction technique). RADIATION DOSE SUMMARY: CTDlvol: 15.9 mGy DLP: 612.89 mGycm COMPARISON: None. FINDINGS: Bones: No acute bony abnormalities. Joints: Left hip known space narrowing with sclerosis and marginal osteophytes. Soft Tissues: No soft tissue abnormalities. CT/Extremity Lower without Contra IMPRESSION: No acute fractures. Reading Location: [id number]
== END 2025-02-20 16:04 | disposition home or self-care (01) ==
PROVIDERS: Emergency Provider Emergency Medicine; PCP Family Medicine; Visit Provider Emergency Medicine
DX: S70.02XA Contusion of left hip, initial encounter (principal); M19.90 Unspecified osteoarthritis, unspecified site; W19.XXXA Unspecified fall, initial encounter; Z86.718 Personal history of other venous thrombosis and embolism; Z87.891 Personal history of nicotine dependence
CPT/HCPCS: 73502; 73700; 96374; 96375; 96376; 99285; A4216; J2405

== ENCOUNTER → 2025-02-26 | Outpatient (CLI) | payer MEDICARE, OTHER, SELFPAY ==
--- NOTE | 2025-02-26 16:05 | CT_ITS ---
PROCEDURE: CT LEFT EXTREMITY LOWER WITHOUT CONTRAST 02/26/2025 REASON FOR EXAM: CONTUSION OF LEFT HIP TECHNIQUE: Procedure Code: CTELWO Modality: CT Procedure: EXTREMITY LOWER WITHOUT CONTRA Coronal and Sagittal reconstruction series were provided. One or more dose reduction techniques were used (e.g., Automated exposure control, adjustment of the mA and/or kV according to patient size, use of iterative reconstruction technique). RADIATION DOSE SUMMARY: CTDlvol: 12.48 mGy DLP: 458.13 mGycm COMPARISON: CT and radiographs of the left hip 02/20/2025. FINDINGS: There appears to be a very subtle nondisplaced hairline fracture of the subcapital left femoral neck. No additional acute fracture or dislocation is seen. The left hip joint is intact, with mild degenerative arthrosis. No aggressive osseous lytic or blastic lesion. Degenerative changes of the lower lumbosacral spine. Small amount of nonspecific simple appearing free fluid is seen in the lower pelvis, similar to prior. Mildly thickened/trabeculated urinary bladder wall likely reflecting hypertrophy, with small bladder diverticuli. Distal colonic diverticulosis without visualized active diverticulitis. Subcutaneous contusional changes overlying the left hip laterally. No focal hematoma. CT/Extremity Lower without Contra IMPRESSION: There appears to be a subtle nondisplaced hairline fracture through the subcapi michael left femoral neck. Noncontrast MRI may be obtained to confirm, if clinically appropriate. Reading Location: [id number]
== END | disposition home or self-care (01) ==
PROVIDERS: PCP Family Medicine; Visit Provider Physician Assistant Surgical
DX: S70.02XA Contusion of left hip, initial encounter (principal)
CPT/HCPCS: 73700

== ENCOUNTER 2025-03-06 16:57 | Emergency (ER) | payer MEDICARE, OTHER, SELFPAY ==
[2025-03-06] VITALS (9 sets, daily range): BP systolic 118–143; BP diastolic 52–80; PULSE 60–78; RESP 16–20; TEMP 36.6–37.1; O2SAT 97–100; BMI 24.5
--- NOTE | 2025-03-06 17:25 | EKG12_ITS ---
Test Reason : LOWER EXTREMITY Blood Pressure : */* mmHG Vent. Rate : 58 BPM Atrial Rate : 58 BPM P-R Int : 172 ms QRS Dur : 148 ms QT Int : 484 ms P-R-T Axes : 53 -22 115 degrees QTcB Int : 475 ms Sinus bradycardia Left bundle branch block Abnormal ECG Confirmed by Babatunde Pro ([id number]), greeting card editor MINDI ADLER ([id number]) on 03/07/2025 10:26:14 AM Referred By: PAUL Confirmed By: Babatunde Pro
--- NOTE | 2025-03-06 17:26 | CT_ITS ---
PROCEDURE: ABDOMEN/PELVIS W IV CONT ONLY 03/06/2025 REASON FOR EXAM: NAUSEA VOMITING 1 WEEK , POST OP TECHNIQUE: Procedure Code: CTABDPELIV Modality: CT Procedure: ABDOMEN/PELVIS W IV CONT ONLY Coronal and Sagittal reconstruction series were provided. CONTRAST: 100 cc of Isovue 370 One or more dose reduction techniques were used (e.g., Automated exposure control, adjustment of the mA and/or kV according to patient size, use of iterative reconstruction technique. COMPARISON: CT abdomen pelvis 08/20/2019 FINDINGS: Lung bases: Unremarkable Liver: Nodular hepatic contour compatible with cirrhosis. No obvious hepatic mass Gallbladder: The gallbladder is mildly distended. No gallstones identified. No gallbladder wall thickening. No biliary ductal dilatation. Spleen: Heterogenous and enlarged measuring 15.2 cm in long axis. Scattered splenic calcifications likely sequelae of prior infection. Pancreas: Diffuse fatty atrophy. Adrenals: No adrenal masses. Kidneys: Bilateral renal cysts, the largest on the right measures 2.5 x 2.5 cm, the largest on the left measures 2.7 x 2.6 cm. No renal calculi or hydronephrosis bilaterally. Bladder: Small bladder diverticulum measures 8 mm. No bladder wall thickening. Reproductive Organs: Prostate not enlarged. No pelvic masses. Bowel: Moderate colonic stool burden suggesting constipation. No bowel obstruction. Appendix: Not identified. Lymph nodes: Unremarkable. Vasculature: The abdominal aorta and IVC are normal. Peritoneum / Retroperitoneum: Small volume ascites fluid. No intraperitoneal free air. Bones: Degenerative changes of the spine. No acute fractures. CT/Abdomen/Pelvis W IV Cont ONLY IMPRESSION: 1. No acute findings in the abdomen or pelvis. 2. Cirrhotic morphology of the liver with associated small volume ascites and s plenomegaly. 3. Bilateral renal cysts measuring up to 2.5 cm on the right and 2.7 cm on the left. 4. Small bladder diverticulum measuring 8 mm. 5. Moderate colonic stool burden suggesting constipation. Reading Location: [facility]
--- NOTE | 2025-03-06 17:29 | US_ITS ---
PROCEDURE: LEFT LOWER EXTREMITY VENOUS DUPLEX IMAG/LIMITED/UNI 03/06/2025 REASON FOR EXAM: Left leg swelling TECHNIQUE: Procedure Code: USVDUL Modality: US Procedure: VENOUS DUPLEX IMAG/LIMITED/UNI COMPARISON: None. FINDINGS: No intraluminal echogenicity to suggest the presence of a deep venous thrombosis. Appropriate respiratory variation, augmentation and venous compression is noted. US/Venous Duplex Imag/Limited/Uni IMPRESSION: No DVT in the left lower extremity. Reading Location: [id number]
--- NOTE | 2025-03-06 17:30 | EDS_ITS ---
HPI History of Present Illness Chief Complaint: Lower Extremity Injury Narrative Narrative: Patient is a 74-year-old male presenting to the emergency department for left leg swelling and nausea/vomiting. Patient has a past medical history of autoimmune hepatitis, esophageal varices, portal vein thrombosis on Eliquis, hypertension, thrombocytopenia and hypertrophic cardiomyopathy. He is on tacrolimus and CellCept. Patient states that he had left hip surgery last Wednesday including [facility] [place], 6 days ago. He states that he was discharged on Wednesday. He states on Wednesday he began having nausea and nonbloody, nonbilious emesis. States he has not been able to keep any of his pain medication or food/drink down since. He endorses some mild discomfort in his left upper quadrant. He denies fever or chills. Denies chest pain or shortness of breath. Denies any constipation or diarrhea. Denies any dysuria or hematuria. He states that since surgery his swelling in his left leg has actually gotten worse. He has been compliant with his Eliquis. He endorses pain to his left anterior thigh. Has noted no purulent drainage around his surgical sites. [facility] Medical History Portal vein thrombosis Esophageal varices GERD (gastroesophageal reflux disease) HTN (hypertension) Hypertrophic cardiomyopathy Autoimmune hepatitis History of immunosuppression therapy Thrombocytopenia Home Medications ?Medication ?Instructions ?Recorded ?Last Taken ?Type clonidine HCl 0.1 mg tablet 0.1 mg PO Q8H BLOOD PRESSU RE 08/20/19 03/06/25 History tacrolimus 1 mg capsule, 1 mg PO BID 08/20/19 5 History immediate-release amlodipine 5 mg tablet 5 mg PO DAILY blood pressure 03/27/23 03/06/25 History mycophenolate mofetil 500 mg 500 mg PO BID organ rejec tion 03/27/23 03/06/25 History tablet (CellCept) pantoprazole 40 mg tablet,delayed 40 mg PO BID GERD #6 0 tabs 03/29/23 03/06/25 Rx release (Protonix) Lactobac no.2-Bifidobac no.1-S. 1 cap PO BID SUPPLEMEN T 03/06/25 03/06/25 History thermo 112.5 billion cell capsule (VSL#3) apixaban 5 mg tablet (Eliquis) 5 mg PO BID 03/06/25 History avatrombopag 20 mg tablet 20 mg PO MOWEFR LOW PLATELET 03/06/25 03/05/25 History (Doptelet (15 tab pack)) carvedilol 12.5 mg tablet 12.5 mg PO BID HEART 5 03/06/25 History cholecalciferol (vitamin D3) 50 3,000 unit PO DAILY up pplement 03/06/25 03/06/25 History mcg (2,000 unit) tablet (Vitamin D3) gabapentin 100 mg capsule 100 mg PO QHS PAIN 03/06/25 03/05/25 History glipizide 5 mg tablet, extended 5 mg PO DAILY BLOOD UP GAR 03/06/25 03/06/25 History release 24 hr hydromorphone 2 mg tablet 2 mg PO PRN pain 03/06/25 Un known History hydromorphone 2 mg tablet 2 mg PO Q6H PRN pain 2 days #7 tabs 03/06/25 Unknown Rx (Dilaudid) methocarbamol 500 mg tablet 500 mg PO TID PAIN 5 03/06/25 History ondansetron 4 mg disintegrating 4 mg PO Q8H PRN PRN Na usea #10 tabs 03/06/25 Unknown Rx tablet Allergy/AdvReac Type Severity Reaction Status Date / Time hydrocodone (From Vicodin) Allergy Anaphylaxis Verified 03/06/25 17:03 lidocaine Allergy Rash Verified 03/06/25 17:03 NSAIDS (Non-Steroidal Allergy Other Verified 03/06/25 17:03 Anti-Inflamma oxycodone Allergy Anaphylaxis Verified 03/06/25 17:03 Social History Smoking Status: Former smoker ROS ROS ED ROS Narrative see HPI EXAM Physical Exam Narrative Exam Narrative: Vital signs: Reviewed General: Alert and orientedx3. No acute distress. Nontoxic, well-appearing. HEENT: Head is normocephalic and atraumatic, sinuses nontender, pupils equal round and reactive. Nares are patent. Oropharynx and throat exams normal. Neck: Supple without lymphadenopathy nontender Cardiovascular: Regular rate and rhythm, no murmurs. No rubs or gallops. Normal S1 and S2 Respiratory: Clear to auscultation bilaterally. No wheezes, rales, rhonchi Abdominal: Soft and mildly tender to palpation in the LUQ. Normal bowel sounds. No guarding or rebound. Nonsurgical abdomen Extremities: Left leg is swollen from hip to foot. DP pulses intact bilaterally. Ecchymosis behind the left knee and on the left lateral thigh extending up to the hip. Surgical site on left lateral thigh is healing well. No signs of infection, fluctuance or drainage. Sensation and motor intact. Skin: No rash or redness. The rest of the physical exam is unremarkable Const Vital Signs: 03/06/25 16:59 03/06/25 17:04 03/06/25 17:08 Temperature 98.4 F 98.7 F 98.6 F Temperature Source Oral Oral Oral Pulse Rate 63 78 60 Respiratory Rate 18 18 19 H Blood Pressure 143/78 H 142/76 H 143/78 H Blood Pressure Mean 99 98 99 Pulse Ox 98 98 100 Oxygen Delivery Method Room Air Room Air Room Air 03/06/25 18:11 03/06/25 18:57 03/06/25 19:00 Temperature 98.6 F 98.6 F 98.1 F Temperature Source Oral Oral Oral Pulse Rate 64 74 60 Respiratory Rate 20 H 18 16 Blood Pressure 118/52 L 128/72 H 124/71 H Blood Pressure Mean 74 90 88 Pulse Ox 99 98 97 Oxygen Delivery Method Room Air Room Air Room Air 03/06/25 20:00 03/06/25 21:00 03/06/25 21:19 Temperature 98.2 F 98 F 98 F Temperature Source Oral Oral Pulse Rate 62 73 73 Respiratory Rate 16 18 18 Blood Pressure 125/73 H 132/80 H 132/80 H Blood Pressure Mean 90 97 97 Pulse Ox 97 97 97 Oxygen Delivery Method Room Air Room Air MDM MDM MDM Narrative Medical decision making narrative: Patient is a 74-year-old male presenting to the emergency department for left leg swelling and nausea and vomiting. Patient was seen and examined. Vitals are stable. Patient resting in bed comfortably no acute distress. Differential includes but is not limited to: DVT, postop infection, ACS, pneumonia, PE, ileus, SBO, pancreatitis, urinary tract infection, colitis, diverticulitis Patient given a fluid bolus and Zofran. EKG shows sinus bradycardia at a rate of 58 with a left bundle branch block. No ischemic changes. Consistent with HOCUM. CBC with leukopenia, anemia and thrombocytopenia that has been seen previously. Lactic within normal limits. CMP with mild hyponatremia of 130 and similar kidney dysfunction to baseline with BUN of 24 and creatinine 1.25. Elevated transaminitis and total bilirubin which has also been seen previously and has not significantly worsened. Troponin and reflex of 37 and 38, no baseline to compare to, no significant delta change. BNP is elevated at 3721. Again there is no baseline to compare to but I would expect this with his cirrhosis history and kidney dysfunction history. He is not having chest pain or shortness of breath. No hypoxia. Do not think this is clinically relevant. Lipase is not elevated. Urinalysis with no evidence of urinary tract infection. DVT study of the left lower extremity is negative. CTA of the chest shows no acute cardiopulmonary disease or pulmonary arterial emboli. CT abdomen pelvis shows no acute findings in the abdomen or pelvis. Cirrhotic morphology of the liver with associated small volume ascites and splenomegaly. Bilateral renal cysts measuring up to 2.5 cm on the right and 2.7 cm on the left. Small bladder diverticulum measuring 8 mm. Moderate colonic stool burden suggesting constipation. Viral swab negative. Patient and were updated on the workup and findings. I explained the elevated BNP and troponin which I expect from his cirrhosis and kidney disease history. Patient is feeling much better with no nausea or vomiting here. He has been able to tolerate p.o. Given the large workup that is negative for any acute findings I do think that the patient's symptoms may be related to him taking his pain medications and muscle relaxers on an empty stomach given inability to tolerate p.o. at home. I will prescribe Zofran for home and recommended that he eat before taking his p.o. Dilaudid that was prescribed to him by his surgeon. I recommended elevating his leg at night to help with the swelling. Did recommend talking to his surgeon tomorrow for further recommendations regarding the swelling. He only has 3 p.o. Dilaudid pills left and I will prescribe him with 3 additional days given continued postop pain but recommended seeking with his surgeon for further refills. All questions were answered and patient and feel comfortable with the plan. Patient discharged from the Emergency Department. I do not feel that the patient's evaluation reveals any acute reason for admission at this time. I instructed them to either follow-up with their primary care physician or promptly return to the Emergency Department for reevaluation should symptoms worsen or new symptoms develop. I explained what symptoms would indicate the need to return to the emergency department. Shared decision making was used. The patient voiced understanding of the treatment plan and is agreeable with it. Clinical impression Postop pain Left leg swelling Nausea and vomiting Hyponatremia Elevated troponin History & Record Review Discussion w/independent historian: Patient and Significant other Lab Data Attestation: I reviewed the patient's lab results. Labs: Laboratory Results - last 24 hr 03/06/25 03/06/25 03/06/25 17:35 18:38 19:53 WBC 4.3 L RBC 3.13 L Hgb 9.8 L Hct 29.0 L MCV 92.7 MCH 31.3 MCHC 33.8 RDW Std Deviation 46.3 H RDW Coeff of Donna 13.7 Plt Count 91 L MPV 12.8 H Immature Gran % (Auto) 0.200 Neut % (Auto) 73.9 H Lymph % (Auto) 15.0 L Ransom % (Auto) 9.8 Eos % (Auto) 0.9 Baso % (Auto) 0.2 Absolute Neuts (auto) 3.2 Absolute Lymphs (auto) 0.64 L Nucleated RBC % 0 Differential Comment SCANNED Platelet Estimate MOD DEC PT 26.5 H INR 2.4 APTT 37.7 H Sodium 130 L Potassium 4.5 Chloride 97 L Carbon Dioxide 24.0 Anion Gap 9 BUN 24 H Creatinine 1.25 H Estim Creat Clear Calc 55.18 Est GFR (MDRD) Non-Af 60 BUN/Creatinine Ratio 19.4 Glucose 209 H Lactic Acid 1.1 Calcium 8.4 Total Bilirubin 1.57 H AST 58 H ALT 23 Alkaline Phosphatase 224 H Troponin T High Sens 37 H Troponin T Hi Sens 2 Hr 38 H NT pro BNP II 3721 H Total Protein 6.2 Albumin 3.4 Globulin 2.8 Albumin/Globulin Ratio 1.2 Lipase 7 L Urine Color Yellow Urine Clarity Clear Urine pH 6.0 Ur Specific [place] 1.015 Urine Protein 30 H Urine Glucose (UA) Normal Urine Ketones Negative Urine Occult Blood Negative Urine Nitrite Negative Urine Bilirubin Negative Urine Urobilinogen Normal Ur Leukocyte Esterase Negative Urine RBC 0 SEEN Urine WBC 0-5 SEEN Ur Squamous Epith Cells 0-5 SEEN Urine Bacteria RARE Hyaline Casts 0-5 SEEN Urine Mucus RARE Radiography Diagnostic Testing: Clinical Impression(s) from Imaging Studies Abdomen/Pelvis CT 03/06/25 17:26 IMPRESSION: 1. No acute findings in the abdomen or pelvis. 2. Cirrhotic morphology of the liver with associated small volume ascites and splenomegaly. 3. Bilateral renal cysts measuring up to 2.5 cm on the right and 2.7 cm on the left. 4. Small bladder diverticulum measuring 8 mm. 5. Moderate colonic stool burden suggesting constipation. Reading Location: [facility] Venous Duplex 03/06/25 17:29 IMPRESSION: No DVT in the left lower extremity. Reading Location: [id number] Chest CTA 03/06/25 17:37 IMPRESSION: No acute cardiopulmonary disease or pulmonary arterial emboli. Hepatic cirrhosis with splenomegaly and small volume upper abdominal ascites. Reading Location: [facility] Discharge Plan Triage Chief Complaint: Lower Extremity Injury ED Provider: Jovanna Boyer Dx/Rx/DC Orders Clinical Impression: Nausea & vomiting, Left leg swelling, Post-op pain Instructions: Managing Post-Op Pain at Home, ED Peripheral Edema, Unilateral, ED Vomiting (Adult) Prescriptions: New hydromorphone [Dilaudid] 2 mg tablet 2 mg PO Q6H PRN (Reason: pain) 2 Days Qty: 7 0RF ondansetron 4 mg tablet,disintegrating 4 mg PO Q8H PRN PRN (Reason: Nausea) Qty: 10 0RF No Action clonidine HCl 0.1 MG tablet 0.1 mg PO Q8H tacrolimus 1 MG capsule 1 mg PO BID amlodipine 5 mg tablet 5 mg PO DAILY mycophenolate mofetil [CellCept] 500 mg tablet 500 mg PO BID pantoprazole [Protonix] 40 mg tablet,delayed release (DR/EC) 40 mg PO BID Qty: 60 2RF Rx Instructions: advised TWICE DAILY FOR 2 months THEN ONCE DAILY methocarbamol 500 mg tablet 500 mg PO TID carvedilol 12.5 mg tablet 12.5 mg PO BID glipizide 5 mg tablet extended release 24hr 5 mg PO DAILY hydromorphone 2 mg tablet 2 mg PO PRN (Reason: pain) gabapentin 100 mg capsule 100 mg PO QHS Eliquis 5 mg tablet 5 mg PO BID cholecalciferol (vitamin D3) [Vitamin D3] 50 mcg (2,000 unit) tablet 3,000 unit PO DAILY Patient Comments: pt takes 3 times a week Doptelet (15 tab pack) 20 mg tablet 20 mg PO MOLINWOOD ALBRECHTL#3 112.5 billion cell capsule 1 cap PO BID Primary Care Provider: Flako Ornelas Referrals: Flako Ornelas MD [Primary Care Provider, Medical] - As soon as possible Activity Restrictions/Additional Instructions: Call your surgeon and primary care doctor tomorrow to have follow-up as soon as possible. Take the Zofran every 6-8 hours as needed for nausea and vomiting. Do not take your medications on an empty stomach which may be causing your nausea and vomiting. Your evaluation in the Emergency Department did not reveal any acute reason for admission. However, I want to emphasize that you may be early in the course of a disease process or illness even if it is not present. For this reason you should follow-up within 24 hours for reevaluation with either your primary care physician or if necessary back here in the Emergency Department. You should return to the Emergency Department immediately if your symptoms worsen or new symptoms develop. Print Language: Spanish Disposition Disposition: Home, Self Care Discharge Date/Time: 03/06/25 21:30
--- NOTE | 2025-03-06 17:37 | CT_ITS ---
PROCEDURE: CTA CHEST W/WO CONTRAST 03/06/2025 REASON FOR EXAM: POST OP LEG SWELLING, HX CLOTS, N/V TECHNIQUE: Procedure Code: [id number] Modality: CT Procedure: CTA CHEST W/WO CONTRAST Multiplanar Sagittal and Coronal images were obtained. 3D post processing was performed. One or more dose reduction techniques were used (e.g., Automated exposure control, adjustment of the mA and/or kV according to patient size, use of iterative reconstruction technique). RADIATION DOSE SUMMARY: DLP: 1242.93 mGycm COMPARISON: None available. FINDINGS: DEVICES: Left chest wall dual lead ICD appears appropriately positioned. PULMONARY VESSELS: No filling defects suspicious for pulmonary arterial emboli. Normal caliber main pulmonary trunk. No evidence of right heart strain. LUNGS/PLEURA: Clear. No pneumothorax or pleural effusion. MEDIASTINUM: Unremarkable. No lymphadenopathy. HEART: Top-normal in size. No pericardial effusion. Mild coronary artery calcifications. THORACIC AORTA: Normal in course and caliber. Mild atherosclerotic disease. UPPER ABDOMEN: Hepatic cirrhosis with splenomegaly. Numerous tiny calcified granulomas in the spleen and few in the liver. Bilateral small simple appearing renal cysts. Small volume upper abdominal ascites fluid. Generalized gallbladder wall thickening/edema nonspecific in this clinical setting. BONES: Partially imaged left humeral head prosthesis. 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 Multilevel degenerative changes of the thoracic spine. CT/CTA Chest W/WO Contrast IMPRESSION: No acute cardiopulmonary disease or pulmonary arterial emboli. Hepatic cirrhosis with splenomegaly and small volume upper abdominal ascites. Reading Location: [id number]
[2025-03-06] MEDS: 0.9% Normal Saline (1000mL) 1,000 ML 1000 ML IV (17:46)
[2025-03-06 17:51] LABS: Hematocrit 29.0 % (40-54); Hemoglobin 9.8 g/dL (13.0-16.5); Immature Granulocytes Count 0.010 X10^3/uL (0.0-0.0); Mean Corp Hgb Conc 33.8 g/dL (32-36); Mean Corpuscular Volume 92.7 fL (80-94); Mean Platelet Vol. 12.8 fl (6.2-12.0); NRBC Flagged by Analyzer 0 % (0-5); POSITIVE COUNT YES; Platelet Count 91 K/mm3 (150-450); RBC Distribution Width CV 13.7 % (11.6-14.6); RBC Distribution Width SD 46.3 fl (35.1-43.9); Red Blood Count 3.13 M/mm3 (4.6-6.2); White Blood Count 4.3 K/mm3 (4.4-11.0)
[2025-03-06 17:58] LABS: Differential Indicated SCAN CRITERIA MET; Prothrombin Time (Protime)PT. 26.5 SECONDS (11.7-14.9)
[2025-03-06 18:00] LABS: Partial Thromboplast Time 37.7 Seconds (24.1-36.2)
[2025-03-06 18:13] LABS: AST(SGOT) 58 U/L (<=37); Alanine Aminotransfer ALT/SGPT 23 U/L (<=46); Albumin, Serum 3.4 g/dL (3.4-4.8); Alkaline Phosphatase 224 U/L (40-129); Anion Gap 9 (5-15); BUN 24 mg/dL (4-19); BUN/Creat Ratio 19.4 RATIO (10-20); Calcium,Total 8.4 mg/dL (7.6-11.0); Carbon Dioxide 24.0 mmol/L (21.0-32.0); Chloride 97 mmol/L (98-108); Estimated Creatinine Clearance 55.18 ml/min (50-250); Globulin 2.8 g/dL (2.2-4.2); Glucose 209 mg/dL (70-99); Lipase 7 U/L (13-75); Potassium 4.5 mmol/L (3.3-5.1)
[2025-03-06 18:32] LABS: Troponin T High Sensitivity 37 ng/L (<=22)
[2025-03-06 18:36] LABS: Differential Comment SCANNED
[2025-03-06 18:46] LABS: Red Blood Cells-Urine 0 SEEN /hpf (0-5)
[2025-03-06 18:48] LABS: Pro- Brain NATRIURETIC PEPTIDE 3721 pg/mL (<=1800)
[2025-03-06 18:50] LABS: Color, Urine Yellow (Yellow); Glucose, Dipstick Normal (Normal); Ketone-Dipstick Negative (Negative); Leukocyte Esterase-Dipstick Negative /ul (Negative); Nitrite-Dipstick Negative (Negative); Occult Blood-Urine Negative /ul (Negative); Protein-Dipstick 30 mg/dl (Negative); Specific Gravity, Urine 1.015 (1.002-1.030); Urine Bilirubin Dipstick Negative (Negative)
[2025-03-06 19:31] LABS: Mucous, Urine RARE /hpf (<or=2+); Squamous Epithelial Cells - UA 0-5 SEEN /hpf (0-5)
[2025-03-06] MEDS: HYDROmorphone 0.5 MG/0.5 ML SYRINGE IV (20:02)
[2025-03-06 20:22] LABS: Troponin T High Sens 2 HR 38 ng/L (<=22)
== END 2025-03-06 21:30 | disposition home or self-care (01) ==
PROVIDERS: Emergency Provider Student in an Organized Health Care Education/Training Program; PCP Family Medicine; Visit Provider Student in an Organized Health Care Education/Training Program
DX: R11.2 Nausea with vomiting, unspecified (principal); M79.89 Other specified soft tissue disorders; G89.18 Other acute postprocedural pain; I10 Essential (primary) hypertension; Z79.899 Other long term (current) drug therapy; Z79.01 Long term (current) use of anticoagulants; Z79.84 Long term (current) use of oral hypoglycemic drugs; Z87.891 Personal history of nicotine dependence; Z86.718 Personal history of other venous thrombosis and embolism
CPT/HCPCS: 71275; 74177; 80053; 80197; 81001; 83605; 83690; 83880; 84484; 85025; 85610; 85730; 87631; 93005; 93971; 96361; 96374; 96375; 96376; 99285; Q9967; A4216; J2405

== ENCOUNTER 2025-03-08 00:59 | Emergency (ER) | payer MEDICARE, OTHER, SELFPAY ==
[2025-03-08 01:00] VITALS: BP 132/74; PULSE 58; RESP 16; TEMP 36.8; O2SAT 99; BMI 25.3
--- OUTSIDE RECORDS SUMMARY | 2025-03-08 01:44 | XMS RPT_ITS | CCD ---
Author Organization [facility] Care Team Providers Care Photo Print Specialist Name Role Phone WILL FAN Unavailable Unavailable CEBUL, GRAY Unavailable Unavailable CEBUL, GRAY Unavailable Unavailable MENG, WILL Unavailable Unavailable MENG, WILL Unavailable Unavailable CEBUL, GRAY Unavailable Unavailable MENG, WILL E Unavailable Unavailable CEBUL III, GRAY A Unavailable Unavailable Davis May MD Primary Care Provider Kleber KWON, Nova Unavailable Davis aMy MD Primary Care Provider Kleber KWON, Marelly Unavailable Davis May MD Primary Care Provider Davis May MD Primary Care Provider Kleber KWON, Marelly Unavailable Kleber KWON, Marelly Unavailable Dr. Esteban Renee Emergency Provider [phone] Dr. Davis May Primary Care Provider Dr. Bernadette Sharma Admit Provider UnavailDr. Bernadette Abreu Other Provider Unavailabl e Dr. Roselia Santos Other Provider Clemente, Dr. Sanders Attending Provider [phone] Dr. Roselia Santos Attending Provider Dr. Syed Salazar Attending Provider Dr. Syed Salazar Other Provider Dr. Bernadette Jernigan Other Provider Unavailable Davis May MD Primary Care Provider Derrek Bear MD Unavailable Haagen PACKAGER AND STRAPPER.ROAD INSPECTOR, Obdulia Unavailable Suppan PACKAGER AND STRAPPER.ROAD INSPECTOR, Sanna A Unavailable [phone] Denae Coombs RN Unavailable Suppan PACKAGER AND STRAPPER.ROAD INSPECTOR, Sanna A Unavailable Suppan PACKAGER AND STRAPPER.ROAD INSPECTOR, Sanna A Unavailable LORA THOMAS Attending Unavailable DAVIS MAY Referring Unavailable DAVIS MAY Primary Care Unavailable Denae Coombs RN Unavailable Leonarda FAUSTIN, Riddhi Unavailable Unavailable Don FAUSTIN, Jaycee Vega Unavailable Unavail able Leonarda FAUSTIN, Riddhi Unavailable Unavailable Dr. Davis May MD Primary Care Provider NATHAN RUTH Attending Provider Dr. Hay Rodríguez DO Emergency Provider Sandro KWON, Lana Gray Unavailable Kristin FAUSTIN, Breann Cottrell Unavailable Dr. Davis May MD Primary Care Provider Dr. Hay Rodríguez DO Attending Provider Haagen UROLOGIST PHYSICIAN-C, Obdulia Attending Provider Haagen UROLOGIST PHYSICIAN-C, Obdulia Referring Provider Davis May Primary Care Unavailable Lonnie Mojica Attending Unavailable Hay Rodríguez Attending UnavailDavis Liu Primary Care Unavailable LUCIANA DENG Attending Unavailable Davis May Primary Care Unavailable Haagen UROLOGIST PHYSICIAN, Obdulia Referring Unavailable Haagen UROLOGIST PHYSICIAN, Obdulia Attending Unavailable Davis May Primary Care Unavailable Haagen UROLOGIST PHYSICIAN, Obdulia Referring Unavailable Haagen UROLOGIST PHYSICIAN, Obdulia Attending Unavailable Davis May Primary Care Unavailable Dr. Davis May MD Primary Care Physician Haagen UROLOGIST PHYSICIAN-C, Obdulia Attending Physician Haagen UROLOGIST PHYSICIAN-C, Obdulia Referring Provider Andes DO, Dr. Fleming Attending Physician Andes DO, Dr. Fleming Emergency Department Physic nahid Dr. Davis May MD Primary Care Physician Selvin UROLOGIST PHYSICIAN-C, Obdulia Attending Physician Selvin UROLOGIST PHYSICIAN-C, Obdulia Referring Provider Andes DO, Dr. Fleming Attending Physician Andes DO, Dr. Fleming Emergency Department Physic nahid PRABHU TYLER Admitting Unavailable PRABHU TYLER Attending Unavailable YADIRA, DAVIS Tavares Primary Care Unavailable PRABHU TYLER Admitting Unavailable PRABHU TYLER Attending Unavailable YADIRA, DAVIS Tavares Primary Care Unavailable OBDULIA MARTÍNEZ Referring Unavailable YADIRA, DAVIS Tavares Primary Care Unavailable LANA JO Attending Unavailable ANGEL, LISETH Referring Unavailable YADIRA, DAVIS Tavares Primary Care Unavailable ANGEL, LISETH Referring Unavailable YADIRA, DAVIS Tavares Primary Care Unavailable JOSE LANDRY Referring Unavailable YADIRA, DAVIS Tavares Primary Care Unavailable EVELIN REICH Attending Unavailable YADIRA, DAVIS Tavares Primary Care Unavailable ANGEL, LISETH Attending Unavailable YADIRA, DAVIS Tavares Primary Care Unavailable ANGEL, LISETH Referring Unavailable YADIRA, DAVIS Tavares Primary Care Unavailable NOVA SHAHID Referring Unavailable YADIRA, DAVIS Tavares Primary Care Unavailable BOBBY OWUSU Attending Unavailable YADIRA, DAVIS J Referring Unavailable YADIRA, DAVIS J Primary Care Unavailable MARCOS FARRELL Attending Unavailable YADIRA, DAVIS Tavares Primary Care Unavailable YADIRA, DAVIS Tavares Attending Unavailable YADIRA, DAVIS Tavares Primary Care Unavailable YADIRA, DAVIS J Referring Unavailable YADIRA, DAVIS J Primary Care Unavailable ANJALI FONG Attending Unavailable YADIRA, DAVIS Tavares Primary Care Unavailable STEVAN THOMAS Referring Unavailable YADIRA, DAVIS Tavares Primary Care Unavailable NATHAN RUTH Referring Unavailable YADIRA, DAVIS Tavares Primary Care Unavailable ANGEL, LISETH Referring Unavailable YADIRA, DAVIS Tavares Primary Care Unavailable MARCOS FARRELL Attending Unavailable YADIRA, DAVIS Tavares Primary Care Unavailable YADIRA, DAVIS Tavares Attending Unavailable YADIRA, DAVIS Tavares Primary Care Unavailable OBDULIA MARTÍNEZ Attending Unavailable YADIRA, DAVIS Tavares Primary Care Unavailable ANGEL, LISETH Referring Unavailable YADIRA, DAVIS Tavares Primary Care Unavailable YADIRA, DAVIS Tavares Primary Care Unavailable Deven'SERRANOJUAN Cottrell Admitting Unavailable Deven'SERRANOJUAN Attending Unavailable MAZBHAKTINI, LISETH Referring Unavailable YADIRA, DAVIS Tavares Primary Care Unavailable JOSE LANDRY Attending Unavailable YADIRA, DAVIS Tavares Referring Unavailable YADIRA, DAVIS Tavares Primary Care Unavailable PRABHU TYLER Attending Unavailable SELVIN, OBDULIA Referring Unavailable YADIRA, DAVIS Tavares Primary Care Unavailable YUSRA, NATHAN Referring Unavailable YADIRA, DAVIS Tavares Primary Care Unavailable OBDULIA MARTÍNEZ Referring Unavailable YADIRA, DAVIS Tavares Primary Care Unavailable YUSRA, NATHAN Attending Unavailable SELF Referring Unavailable YADIRA, DAVIS Tavares Primary Care Unavailable GLENDY AYALA Attending Unavailabl e SELF Referring Unavailable YADIRA, DAVIS Tavares Primary Care Unavailable YADIRA, DAVIS Tavares Attending Unavailable YADIRA, DAVIS Tavares Primary Care Unavailable YADIRA, DAVIS Tavares Referring Unavailable YADIRA, DAVIS Tavares Primary Care Unavailable STEVAN THOMAS Attending Unavailable SELF Referring Unavailable YADIRA, DAVIS Tavares Primary Care Unavailable BERNADETTE MUNGUIA Attending Unavailable BERNADETTE MUNGUIA Referring Unavailable YADIRA, DAVIS Tavares Primary Care Unavailable ANGEL, LISETH Referring Unavailable YADIRA, DAVIS Tavares Primary Care Unavailable DERREK BEAR Referring Unavailable YADIRA, DAVIS Tavares Primary Care Unavailable ANGEL, LISETH Referring Unavailable YADIRA, DAVIS Tavares Primary Care Unavailable OBDULIA MARTÍNEZ Attending Unavailable YADIRA, DAVIS Tavares Primary Care Unavailable ANGEL, LISETH Referring Unavailable YADIRA, DAVIS Tavares Primary Care Unavailable EVELIN REICH Referring Unavailable YADIRA, DAVIS Tavares Primary Care Unavailable KELLEY FREGOSO Attending Unavailable YADIRA, DAVIS Tavares Primary Care Unavailable ANJALI FONG Attending Unavailable YADIRA, DAVIS Tavares Primary Care Unavailable YUSRA, NATHAN Referring Unavailable YADIRA, DAVIS Tavares Primary Care Unavailable EVELIN REICH Attending Unavailable YADIRA, DAVIS Tavares Primary Care Unavailable YADIRA, DAVIS Tavares Primary Care Unavailable ANGEL, LISETH Attending Unavailable YADIRA, DAVIS Tavares Primary Care Unavailable IRMANI, LISETH Referring Unavailable YADIRA, DAVIS Tavares Primary Care Unavailable ANGELINE PFEIFFER Attending Unavailable YADIRA, DAVIS Tavares Primary Care Unavailable KARINA DIAZ Attending Unavailable YADIRA, DAVIS Tavares Primary Care Unavailable YUSRA, NATHAN Referring Unavailable DAVIS MAY Primary Care Unavailable SELF Referring Unavailable YADIRA, DAVIS Tavares Primary Care Unavailable BEVERLY DIAZ Attending Unavailable JUAN WILSON Referring Unavailable YADIRA, DAVIS Tavares Primary Care Unavailable LISETH ORTIZ Referring Unavailable YADIRA, DAVIS Tavares Primary Care Unavailable JOSE LANDRY Attending Unavailable JUAN WILSON Referring Unavailable YADIRA, DAVIS Tavares Primary Care Unavailable JAMES LYON Attending Unavailable YADIRA, DAVIS Tavares Primary Care Unavailable JAMES LYON Referring Unavailable YADIRA, DAVIS Tavares Primary Care Unavailable JOSE LANDRY Attending Unavailable JOSE LANDRY Referring Unavailable YADIRA, DAVIS Tavares Primary Care Unavailable SELF Referring Unavailable YADIRA, DAVIS Tavares Primary Care Unavailable SANNA LARSEN Attending Unavailable YADIRA, DAVIS Tavares Primary Care Unavailable NATHAN RUTH Referring Unavailable YADIRA, DAVIS Tavares Primary Care Unavailable Allergies Allergy Classification Reported Allergen(s) Allergy Type Date of Onset Reaction(s) Facility Acetaminophen / HYDROcodone (3 sources) Acetaminophen / HYDROcodone Drug Allergy 7 Anaphylaxis [facility] Acetaminophen / oxyCODONE (3 sources) Acetaminophen / oxyCODONE Drug Allergy 8 Other: See Comments [facility] Angiotensin 2 Receptor Blockers (ARB) (3 sources) valsartan Drug Allergy 8 Myalgia [facility] (20 sources) acetaminophen / HYDROcodone; Translations: [HYDROCODONE-ACET AMINOPHEN] Drug Allergy 7 Anaphylaxis [facility] (20 sources) valsartan; Translations: [VALSARTAN] Drug Allergy 8 Intolerance, Myalgia [facility] (20 sources) Acetaminophen / oxyCODONE; Translations: [OXYCODONE-ACETAM INOPHEN] Drug Allergy 8 Shortness of Breath, Other: See Comments [facility] (20 sources) Hibiscus; Translations: [HIBISCUS] Drug Allergy 1 Hives, Shortness of Breath [facility] (11 sources) Acetaminophen; Translations: [ACETAMINOPHEN] Drug Allergy 0 Contraindicati on-Medical Surgical [facility] (7 sources) HYDROcodone Drug Allergy 0 Anaphylaxis [facility] Comment on above: PATIENT CAN TOLERATE MORPHINE- HAS HAD IN PAST WITHOUT ISSUE PER PT (20 sources) Lidocaine; Translations: [LIDOCAINE] Drug Allergy 4 Other: See Comments [facility] (4 sources) Nonsteroidal Anti-inflammatory Compounds Allergy to substance 5 Other [facility] Comment on above: hx autoimmune hepati tis (4 sources) oxyCODONE Drug Allergy 5 Anaphylaxis [facility] (20 sources) Hibiscus (Hibiscus Sabdariffa); Translations: [HIBISCUS (HIBISCUS SABDARIFFA)] Drug Allergy 1 Hives, Shortness of Breath [facility] (4 sources) Non-steroidal anti-inflammatory agent; Translations: [NSAIDS (NON-STEROIDAL ANTI-INFLAMMATORY DRUG)] Propensity to adverse reactions to drug 5 Contraindicati on-Medical Surgical [facility] (1 source) Acetaminophen Drug Allergy 5 [facility] (1 source) HYDROcodone Drug Allergy 5 [facility] (1 source) Lidocaine Drug Allergy 5 [facility] (1 source) NSAIDs Drug allergy (disorder) 5 [facility] (1 source) oxyCODONE Drug Allergy 5 [facility] Medications Current Medications Medication Drug Class(es) Dates Sig (Normalized) Sig (Original) amLODIPine 5 mg oral tablet (20 sources) Dihydropyridine Calcium Channel David Start: 04-24-2021 End: 06-01-2024 take 1 tablet by mouth once daily Comment on above: Take 1 tablet by silas once daily. amoxicillin 500 mg oral tablet [...] Start: 10-20-2023 Blood-Glucose Sensor (DEXCOM G7 SENSOR) wimler CHANGE SENSOR EVERY 10 days. USE FOR [...] 270 tablet 3 06/25/2022 Active Start: 08-20-2019 Start: 08-20-2019 End: 01-18-2023 take 1.5 tablets [...] times daily as needed for muscle spasms Start: 08-20-2019 End: 03-27-2023 take 1 tablet by mouth three times daily Cyclobenzaprine 10 MG tablet Discontinued 10 mg PO THREE TIMES A DAY May 30th, 2020 11:00pm March 27, 2023 12:09am doxycycline hyclate 100 mg oral capsule (13 sources) Tetracycline-class Drug Start: 01-05-2025 take 1 capsule b y mouth twice daily Start: 01-05-2025 take 1 capsule by mo [facility] twice daily Start: 05-30-2024 End: 06-14-2024 take 1 tablet by mouth twice daily doxycycline (VIBRA-TABS) 100 mg tablet Indications: Acute non-recurrent sinusitis, unspecified location , Acute bronchitis, unspecified organism Take 1 tablet by mouth two times a day for 5 days. 10 tablet 06/09/2024 06/14/2024 Active fluorouracil 50 mg/ml topical cream (20 sources) Nucleoside Metabolic Inhibitor Start: 05-11-2024 Fluorouracil (EFUDEX ) 5 % cream Indications: Actinic keratosis Apply [...] 1 tablet by mouth every twelve hours Start: 06-11-2020 End: 02-10-2023 take 1 tablet by mouth twice daily metoprolol succinate ER (TOPROL XL) 100 mg Take 1 tablet by mouth two times a day. 180 tablet 3 02/10/2023 Active Start: 08-20-2019 End: 03-29-2023 take 100 mg by mouth twice daily Metoprolol Succinate Discontinued 100 mg PO TWICE A DAY August 19, 2019 11:00pm March 29, 2023 1:05pm heart rate Start: 08-20-2019 take 150 mg [...] oral tablet (1 source) Opioid Agonist Start: 08-07-2024 End: 08-10-2024 take 7.5 mg by mouth every six hours as needed morphine IR 15 mg tablet Take 0.5 tablets by mouth every 6 hours as needed for pain for up to 3 days. 6 tablet 08/07/2024 08/10/2024 Active mycophenolate mofetil 500 mg oral tablet (20 sources) Start: 08-31-2022 End: 09-20-2024 take 1 tablet by mouth twice daily Start: 04-16-2022 End: 07-15-2022 take 1 tablet [...] tablet (20 sources) Proton Pump Inhibitor Start: 03-29-2023 End: 05-30-2024 Start: 05-25-2022 End: 08-23-2022 take 1 tablet [...] ( AK-DILATE, JESSICA-SYNEPHRINE) probenecid 500 mg oral table t (20 sources) Start: 12-07-2022 End: 06-18-2024 take 1 tablet by mouth twice daily Start: 04-24-2021 End: 11-18-2022 take 1 tablet by mouth twice daily probenecid 500 mg tablet Indications: Acute gout involving toe of right foot, unspecified cause Take 1 tablet by mouth twice daily. 180 tablet 1 05/22/2022 Active Comment on above: Take 1 tablet by silas th twice daily. Take 1 tablet by silas th two times a day. proparacaine hydrochloride 5 [...] take 1 capsule by mouth twice daily Comment on above: Take 1 capsule by [...] mg PO THREE TIMES A DAY August 19, 2019 11:00pm March 27, 2023 12:18am Comment on above: Take 1 capsule by [facility] twice daily. Completed/Discontinued Medications Medication Drug Class(es) [...] above: Take 1 tablet by silas th daily at bedtime. For cholesterol. azaTHIOprine 50 mg oral tablet (7 sources) Purine Antimetabolite Start: 08-20-2019 End: 03-27-2023 take 1 tablet by mouth once daily Azathioprine 50 MG tablet Discontinued 100 mg PO DAILY August 19, 2019 11:00pm March 27, 2023 12:19am Start: 08-20-2019 End: 03-27-2023 take 100 mg by mouth once daily Azathioprine Discontinued 100 MG PO DAILY August 19, 2019 11:00pm March 27, 2023 12:19am budesonide 3 mg delayed release oral capsule (7 sources) Corticosteroid Start: 08-20-2019 End: 03-27-2023 take 1 capsule by mouth three times daily Budesonide 3 MG capsule,delayed,extend.release Discontinued 3 mg PO THREE TIMES A DAY August 19, 2019 11:00pm March 27, 2023 12:19am cholecalciferol 0.025 mg oral capsule (20 sources) Vitamin D Start: 04-16-2021 End: 09-30-2022 take 1 capsule by mouth once daily Cholecalciferol, Vitamin D3, 25 mcg (1,000 unit) cap Indications: Vitamin D deficiency Take 1 capsule by mouth once daily. 0 04/16/2021 09/30/2022 Discontinued Comment on above: Take 1 capsule by [facility] once daily. ergocalciferol 1.25 mg oral capsule (20 sources) Provitamin D2 Compound Start: 04-17-2021 End: 06-15-2023 take 1 capsule by mouth every week ergocalciferol 50,000 unit capsule (VITAMIN D2, DRISDOL) Take 1 capsule by mouth one time a week. 12 capsule 0 04/17/2021 06/15/2023 Discontinued Comment on above: Take 1 capsule by [facility] one time a week. flash glucose scanning reader (FREESTYLE MARS 14 DAY READER) (9 sources) Start: 01-02-2022 flash glucose scanning reade r (FREESTYLE MARS 14 DAY READER) Indications: Type 2 diabetes mellitus treated with insulin ([facility]) Use to test blood glucose 4 times [...] Type 2 diabetes mellitus treated with insulin ([facility]) Use to test blood glucose 4 times daily. 2 Kit 5 01/02/2022 01/26/2022 Discontinued Start: 01-02-2022 flash glucose sensor (FREESTYLE MARS 3 SENSOR) kit Indications: Type 2 diabetes mellitus treated with insulin ([facility]) Use to test blood glucose 4 times daily. 2 Kit 5 01/02/2022 Active Comment on above: Use to test blood gl ucose 4 times daily. Hofvhxqj1-Rgkwlf0-B trep therm. (VSL#3) 112.5 billion cell cap (20 sources) Start: 10-13-2022 take 1 capsule by mouth once daily Lactobac2-Bifido1- Strep therm. (VSL#3) 112.5 billion cell cap Take 1 capsule by mouth once daily. 90 capsule 1 10/13/2022 Active Start: 10-13-2022 End: 01-11-2023 take 1 capsule by mouth once daily Utqmfubu6-Mddrgd0-Hcslp therm. (VSL#3) 112.5 billion cell cap Take 1 capsule by mouth once daily. 90 capsule 1 10/13/2022 01/11/2023 Active Start: 06-09-2022 take 1 capsule by mo [facility] once daily Znowtglw4-Htcntm8-Ahupi therm. (VSL#3) 112.5 billion cell cap Take 1 capsule by mouth once daily. 90 capsule 1 06/09/2022 Active Start: 06-09-2022 End: 09-07-2022 take 1 capsule by mouth once daily Cyjmzvea7-Bhompc4-Hgbfd therm. (VSL#3) 112.5 billion cell cap Take 1 capsule by mouth once daily. 90 capsule 1 06/09/2022 09/07/2022 Active Start: 03-24-2022 End: 06-08-2022 take 1 capsule by mouth once daily Qfnyzoko1-Qhodcn1-Iolpb therm. (VSL#3) 112.5 billion cell cap Take 1 capsule by mouth once daily. 90 capsule 1 03/24/2022 06/08/2022 Discontinued Start: 03-24-2022 End: 06-22-2022 take 1 capsule by mouth once daily Jwfxrzgm6-Qxfiue3-Mhadr therm. (VSL#3) 112.5 billion cell cap Take 1 capsule by mouth once daily. 90 capsule 1 03/24/2022 06/22/2022 Active Start: 01-13-2022 End: 03-23-2022 take 1 capsule by mouth once daily Dapkuiqc2-Fumfon2-Bnzwp therm. (VSL#3) 112.5 billion cell cap Take 1 capsule by mouth once daily. 90 capsule 1 01/13/2022 03/23/2022 Discontinued Start: 01-13-2022 End: 04-13-2022 take 1 capsule by mouth once daily Rjxxpbgj3-Xvstcz2-Guhlp therm. (VSL#3) 112.5 billion cell cap Take 1 capsule by mouth once daily. 90 capsule 1 01/13/2022 04/13/2022 Active Start: 12-09-2021 End: 01-11-2022 take 1 capsule by mouth once daily Toausbop4-Kkfpyo1-Fqgzb therm. (VSL#3) 112.5 billion cell cap Take 1 capsule by mouth once daily. 90 capsule 1 12/09/2021 01/11/2022 Discontinued Start: 12-09-2021 End: 03-09-2022 take 1 capsule by mouth once daily Mdchwufo3-Qjkvxa6-Uwdqc therm. (VSL#3) 112.5 billion cell cap Take 1 capsule by mouth once daily. 90 capsule 1 12/09/2021 03/09/2022 Active Start: 09-24-2021 End: 12-08-2021 take 1 capsule by mouth once daily Ihveakku4-Dxindf3-Rdrid therm. (VSL#3) 112.5 billion cell cap Take 1 capsule by mouth once daily. 90 capsule 1 09/24/2021 12/08/2021 Discontinued Start: 09-24-2021 End: 12-23-2021 take 1 capsule by mouth once daily Bkjlztyn8-Uiilca1-Dtjkg therm. (VSL#3) 112.5 billion cell cap Take 1 capsule by mouth once daily. 90 capsule 1 09/24/2021 12/23/2021 Active Start: 06-30-2021 End: 09-23-2021 take 1 capsule by mouth once daily Lxckspjt2-Dbcjgz2-Nyhjy therm. (VSL#3) 112.5 billion cell cap Take 1 capsule by mouth once daily. 90 capsule 1 06/30/2021 09/23/2021 Discontinued Start: 06-30-2021 End: 09-28-2021 take 1 capsule by mouth once daily Tryhzktu1-Hzjqux6-Cxnse therm. (VSL#3) 112.5 billion cell cap Take 1 capsule by mouth once daily. 90 capsule 1 06/30/2021 09/28/2021 Active Start: 05-19-2021 End: 06-28-2021 take 1 capsule by mouth once daily Tznpkcxr6-Qdalri4-Zxddb therm. (VSL#3) 112.5 billion cell cap Take 1 capsule by mouth once daily. 90 capsule 1 05/19/2021 06/28/2021 Discontinued Start: 05-19-2021 End: 08-17-2021 take 1 capsule by mouth once daily Lreqtfln5-Pzcdrk5-Csyfi therm. (VSL#3) 112.5 billion cell cap Take 1 capsule by mouth once daily. 90 capsule 1 05/19/2021 08/17/2021 Active Comment on above: Take 1 capsule by [facility] once daily. lisinopril 5 mg oral tablet [...] omeprazole 20 mg delayed release oral capsule (7 sources) Proton Pump Inhibitor Start: 08-20-19 End: 03-29-19 take 1 capsule by mouth twice daily Omeprazole 20 MG capsule Discontinued 20 mg PO TWICE A DAY August 19, 2019 11:00pm March 29, 2023 1:05pm gerd perflutren lipid microspheres 1.3 mL in [...] unspecified] 05-30-2024 Episodic Blindness and vision defects (6 sources) Bilateral myopia of eyes; Translations: [Myopia, bilateral] Onset: 5 01-22-2023 Episodic Cataract (3 sources) Bilateral senile combined form cataracts of eyes; Translations: [Combined forms of age-related cataract, bilateral] Onset: 5 01-22-2023 Chronic Chronic kidney disease (20 sources) Chronic kidney disease stage 3A ; Translations: [Stage 3a chronic kidney disease] Onset: 5 03-30-2024 Chronic Chronic kidney disease (2 sources) Chronic kidney disease; Translations: [Chronic kidney disease, stage 3a] Onset: 5 Coagulation and hemorrhagic disorders (20 [...] Onset: 4 Chronic Deficiency and other anemia (6 sources) Anemia; Translations: [Anemia, unspecified] 03-26-2023 Episodic Deficiency and other anemia (2 sources) [...] hypertension] Onset: 0 08-21-2019 Chronic Gastrointestinal hemorrhage (8 sources) Acute upper gastrointestinal hemorrhage; Translations: [Gastrointestinal [...] chronic kidney disease] Onset: 5 04-05-2024 Chronic Immunity disorders (1 source) Immunodeficiency, unspecified; Translations: [Immunocompromised (HCC)] Onset: 5 Chronic Miscellaneous mental health disorders (20 sources) [...] aftercare (3 sources) Antibiotic prophylaxis indicated; Translations: [residential (current) use of antibiotics] Episodic Other aftercare (20 sources) Long-term current use of insulin; Translations: [residential (current) use of insulin] Onset: 5 04-05-2024 Episodic Other aftercare (1 source) Post-discharge follow-up; Translations: [Encounter for follow-up examination after completed treatment for conditions other than malignant neoplasm] 04-12-2024 Episodic Other aftercare (3 sources) Patient encounter status; Translations: [Encounter for therapeutic drug level monitoring] 05-10-2024 Episodic Other aftercare (1 source) Encounter for therapeutic drug level monitoring; Translations: [Anticoagulation management encounter] Onset: Episodic Other aftercare (1 source) residential (current) use of anticoagulants; Translations: [Anticoagulation management encounter] Onset: Episodic Other and unspecified benign neoplasm (1 [...] foot] 10-14-2022 Episodic Other connective tissue disease (4 sources) Muscle spasm of cervical muscle of neck; Translations: [Other muscle spasm] 08-06-2024 Episodic Other eye disorders (2 sources) Drusen of left optic disc; Translations: [Drusen of optic disc, left eye] 01-22-2023 Chronic Other eye disorders (1 source) Drusen of optic disc, left eye; Translations: [Drusen of left optic disc] Onset: Chronic Other gastrointestinal disorders (1 source) Diarrhea; [...] [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 Other hematologic conditions (1 source) Cytopenia; [...] [Polyneuropathy, unspecified] Onset: 1 10-11-2020 Chronic Other non-epithelial cancer of skin (1 source) Squamous cell carcinoma of skin of right upper limb, including shoulder; Translations: [Squamous cell carcinoma, arm, right] Onset: 5 Episodic Other non-traumatic joint disorders (1 source) Pain in right shoulder; Translations: [Pain in joint, shoulder region] 08-07-2024 Episodic Other screening for suspected conditions (not mental disorders or infectious disease) (20 sources) Other specified abnormal findings of blood chemistry; Translations: [Other abnormal blood chemistry] Onset: 9 Resolved: 1 Episodic Other skin disorders (6 sources) Actinic [...] nodes; Translations: [Nodules of vocal cords] Episodic Other upper respiratory infections (9 sources) Acute upper respiratory infection; Translations: [Acute upper respiratory infection, unspecified] Onset: 5 04-14-2024 Episodic Elvira-; endo-; and myocarditis; cardiomyopathy (20 sources) Obstructive hypertrophic cardiomyopathy; Translations: [Hypertrophic obstructive cardiomyopathy] Onset: 8 08-21-2019 Chronic Peripheral and visceral atherosclerosis (3 sources) Superior mesenteric vein thrombosis ; Translations: [Acute infarction of intestine, part and extent unspecified] Onset: 5 08-07-2024 Episodic Residual codes; unclassified (6 sources) History of immunosuppressive therapy; Translations: [Personal history of immunosupression therapy] 03-26-2023 Episodic Residual codes; unclassified (1 source) Personal history of immunosupression therapy; Translations: [Personal history of immunosuppressive therapy] 03-26-2023 Episodic Retinal detachments; defects; vascular occlusion; and retinopathy (1 source) Retinal hemorrhage, right eye; Translations: [Retinal hemorrhage of right eye] Onset: 5 Chronic Spondylosis; intervertebral disc disorders; other back problems (20 sources) Degeneration of lumbar intervertebral disc; Translations: [Other intervertebral disc degeneration, lumbar region] Onset: 7 03-09-2017 Chronic Unclassified (1 source) Unknown / UNK(Unknown) Onset: 8 Unclassified (1 source) Acute pain of left knee 10-03-2024 Unclassified (8 sources) Autogenerated Problem Onset: 5 11-02-2024 Unclassified (1 source) Cough, unspecified; Translations: [Cough, unspecified] Onset: 5 Unclassified (1 source) Subacute cough; Translations: [Subacute cough] Onset: 5 Past or Other Problems Problem Classification Problem [...] 4 01-25-2023 Episodic Other aftercare (1 source) residential (current) use of insulin; Translations: [Controlled type [...] Episodic Other infections; including parasitic (20 sources) Rinard spotted fever; Translations: [Spotted fever due to [...] Onset: 7 Resolved: 8 10-11-2017 Chronic Other non-traumatic joint disorders (5 sources) Pain in left knee; Translations: [Pain in joint, lower leg] Onset: 4 02-14-2024 Episodic Other skin disorders (1 source) Actinic keratosis; Translations: [Actinic keratosis] Onset: 5 Episodic Phlebitis; thrombophlebitis and thromboembolism (20 sources) [...] HISTORY PHYSICALon 5 HISTORY PHYSICAL HNO ID: [id number] Author: PRABHU TYLER MD Service: Pain Management Author Type: Physician Type: H&P Filed: 01/16/2025 07:11 Note Text: HISTORY AND PHYSICAL EXAMINATION PATIENT NAME: Mateus Yi DATE of SERVICE: 01/16/2025 Mateus Yi is here for the pain [...] as planned. SIGNATURE: Prabhu Tyler MD DATE: January 16, 2025 TIME: 7:10 AM [1] Social History Tobacco Use Smoking status: Former Types: Cigars Smokeless tobacco: Never Vaping Use Vaping status: Some Days Substances: THC, CBD Devices: Disposable Substance Use Topics Alcohol use: Not Currently Drug use: Yes Types: Marijuana Comment: medical marijuana [facility] OPERATIVE NOon 01-16-2025 OPERATIVE NO HNO ID: [id number] Author: PRABHU TYLER MD Service: Pain Management Author Type: Physician Type: Operative Report Filed: 01/25/2025 15:00 Note Text: PATIENT NAME: Mateus Yi SERVICE DATE: 01/16/2025 PROCEDURE NOTE PREOPERATIVE DIAGNOSIS(ES) Cervical spondylosis Cervical DDD POSTOPERATIVE DIAGNOSIS(ES): Same PROCEDURE: Right C3,4,5 Facet Medial Branch Nerve Blockunder fluoroscopy. Trolley Car Overhauler(s): None, I performed the entire procedure. ANESTHESIA: Local SEDATION: Moderate Sedation; midazolam 3mg IV, ASA status II, normal airway, chest excursion and heart rate. Airway reassessed immediately prior to medication administration. Intravenous moderate conscious sedation was performed with continuous monitoring of the patient by trained nursing under my constant supervision. Sedation Start Time: 7:42 AM Sedation End Time: 7:54 AM INDICATIONS: [...] the procedure. SIGNATURE: Prabhu Tyler MD DATE: January 16, 2025 TIME: 7:57 AM [facility] Chest PA and Lateralon 01-05 Chest PA and Lateral [facility] Imaging Services [address] [place] [address] Chest PA and Lateral MR#: [id number] Acct: [id number] Name: PARKER YI Rep #: [id number] : 1950 M 74 From: Oscar Anaya MD PCP: Dr. Davis May MD Status: REG ER Study: Chest PA and Lateral Date of Exam: 01/05/25 Exam# [id number] Ordering Dr: Lonnie Mojica DO PROCEDURE: CHEST PA AND LATERAL 01/05/2025 REASON FOR EXAM: COUGH TECHNIQUE: Procedure Code: RADCXR Modality: DX Procedure: CHEST PA AND LATERAL COMPARISON: None. FINDINGS: Devices: Left chest wall dual lead ICD in appropriate positioning. Lungs/Pleura: Clear. No pneumothorax or sizable pleural effusion. Heart/Mediastinum: Mildly enlarged. No significant vascular congestion. Bones/Soft tissues: Degenerative changes of the spine. Left humeral head prosthesis. RAD/Chest PA and Lateral IMPRESSION: Mild cardiomegaly. No appreciable airspace consolidation or pleural effusion. Reading Location: [id number] CC: Dr. Davis May MD; Lonnie Mojica DO Financial Services Education Consultant: Signed [facility] Emergency Department Summary on 01-05-2025 Emergency Department Summary [facility] Medical Records Department [address] [place] [address] Emergency Department Summary 01/05/25 MR#: [id number] Acct: [id number] Name: PARKER YI Rep #: [id number] : 1950 74 From: Lonnie Mojica DO PCP: Dr. Davis May MD Status:DEP ER Location: ED HPI History of Present Illness Chief Complaint: Cold Sx Informant: patient and spouse/S.O. Narrative Narrative: Patient is a 74-year-old male with past medical history of autoimmune hepatitis and hypertension on immunosuppressive medication. He and his state they recently were on a cruise which they flew to and from. After returning from the cruise the patient began with increased congestion and cough. He denies any fevers associated with this. He states that he has concern for pneumonia as these types of symptoms have led to that in the past. He denies any history of lung pathology however such as asthma COPD or emphysema. He also denies any known sick contacts but with his recent vacation he is sure he was around other individuals who may have been sick. Secondary to concern for developing infection he presents for evaluation. [facility] Medical History Portal vein thrombosis Esophageal varices GERD (gastroesophageal [...] spasm 3 Unknown Rx days #9 tabs doxycycline hyclate 100 mg capsule 100 mg PO BID 10 days #20 caps 1 Unknown Rx Allergy/AdvReac Type Severity Reaction Status Date / Time acetaminophen (From Vicodin) Allergy Anaphylaxis Verified 01/05/25 20:21 hydrocodone (From Vicodin) Allergy Anaphylaxis Verified 01/05/25 20:21 lidocaine Allergy Rash Verified 01/05/25 20:21 NSAIDS (Non-Steroidal Allergy Other Verified 01/05/25 20:21 Anti-Inflamma oxycodone Allergy Anaphylaxis Verified 01/05/25 20:21 Family History no significant family his Social History Smoking Status: Former smoker ROS ROS ED Constitutional Constitutional ED: Denies chills or fever(s) Eyes Eyes: Denies change in vision ENT ENT ED: Reports rhinorrhea and sore throat Cardiovascular Cardiovascular: Denies chest pain Respiratory/Chest Respiratory/Chest: Reports cough; Denies dyspnea Gastrointestinal Gastrointestinal: Denies abdominal pain, diarrhea, nausea or vomiting Genitourinary Genitourinary ED: Denies dysuria Musculoskeletal Musculoskeletal: Denies myalgias Integumentary Denies rash Neurologic Neurologic: Denies headache(s) Allergic/Immunologic Allergic/Immunologic ED: Denies mouth swelling or tongue swelling EXAM Physical Exam Const Vital Signs: 01/05/25 20:17 01/05/25 22:06 Temperature 99.2 F H Temperature Source Oral Pulse Rate 67 Respiratory Rate 18 Respiratory Effort Normal Non-Labored Respiratory Pattern Normal Blood Pressure 133/74 H Blood Pressure Mean 93 Pulse Ox 96 Oxygen Delivery Method Room Air Positive well nourished and well developed General Appearance ED: well developed; Negative for pallor HEENT HEENT Narrative: Bilateral TMs are retracted but show no secondary findings to suggest infection and bilateral canals are normal Nasal mucosa is hyperemic and boggy with inflamed/enlarged inferior nasal turbinate No tongue or lip swelling no oral lesions no airway edema or compromise There is cobblestoning in the posterior pharynx consistent with sinus drainage Eyes PERRL and EOMs intact bilaterally General Eye ED: Negative for scleral icterus Neck supple and no JVD Chest Wall palpation of chest normal Resp normal respiratory effort Resp Narrative: Breath sounds are diminished throughout with rhonchi in the bilateral lower lobes left greater than (more content not included)... Normal [facility] Influenza virus A and B and SARS-CoV-2 (COVID-19) and Respiratory syncytial virus RNAOrdered By: Lonnie Mojica on 01-05-2025 SARS-CoV-2 (COVID-19) RNA MARILYN+probe Ql (Unsp spec) [facility] SARS-CoV-2 (COVID-19) RNA MARILYN+probe Ql (Unsp spec) [facility] M100.678on 01-05-2025 M100.678 Pending SARS-CoV-2 (COVID 19) Negative INFLUENZA A Negative INFLUENZA B Negative RSV PCR Negative Normal [facility] Comment on above: Performed By: #### M 100.678 #### [facility] [address] [place], [address] HISTORY PHYSICALon HISTORY PHYSICAL HNO ID: [id number] Author: PRABHU TYLER MD Service: Pain Management [...] use: Yes Types: Marijuana Comment: medical marijuana [facility] OPERATIVE NOon 11-28-2024 OPERATIVE NO HNO ID: [id number] Author: PRABHU TYLER MD Service: Pain Management Author Type: Physician Type: Operative Report Filed: 11/28/2024 07:56 Note Text: PATIENT NAME: Mateus Yi SERVICE DATE: 11/28/2024 PROCEDURE NOTE PREOPERATIVE DIAGNOSIS(ES) Cervical spondylosis Cervical DDD POSTOPERATIVE DIAGNOSIS(ES): Same PROCEDURE: Right C3,4,5 Facet Medial Branch Nerve Blockunder fluoroscopy. Trolley Car Overhauler(s): None, I performed the entire procedure. ANESTHESIA: [...] DATE: November 28, 2024 TIME: 7:55 AM [facility] CTA Abdominal vessels and Pe lvis vessels W contrast Porter 11-07-2024 IMPRESSION: Significant interval decrease in the portal vein thrombus with residual slither of eccentric thrombus in the main portal vein extending into the bifurcation of the right and left intrahepatic portal veins. Significant interval improvement in the SMV thrombus with residual eccentric thrombus. Financial Services Education Consultant: PSCAnuj Transcribe Date/Time: Nov 07 2024 12:08P Dictated by : JESSICA BUNDY MD This examination was interpreted and the report reviewed and electronically signed by: JESSICA BUNDY MD on Nov 07 2024 12:14PM [facility] DIVISION OF RADIOLOGY * * *Final Report* * * DATE OF EXAM: Nov 07 2024 11:17AM [facility] 0311 - CTA ABD/PELV W IVCON / [...] the thoracolumbar spine. DIVISION OF RADIOLOGY Provider, Sajan Agosto [facility] - 11/07/2024 * * *Final Report* * * DATE OF EXAM: Nov 07 2024 11:17AM [facility] 0311 - CTA ABD/PELV W IVCON / [...] the SMV thrombus with residual eccentric thrombus. Financial Services Education Consultant: ANTHONY Transcribe Date/Time: Nov 07 2024 12:08P Dictated by : JESSICA BUNDY MD This examination was interpreted and the report reviewed and electronically signed by: JESSICA BUNDY MD on Nov 07 2024 12:14PM EST [facility] Radiology Study observation (narrative) [facility] CTA Abdominal vessels and Pe lvis vessels W contrast IVOrdered By: Ccf Provider on 11-07-2024 [facility] Inital Evaluation (1) - PTon 10-23-2024 Inital Evaluation (1) - PT [facility] Physical Therapy [facility] [address] [place] [address] / REHABILITATION SERVICES INITIAL EVALUATION MR#: [id number] Acct: [id number] Name: PARKER YI Rep #: [id number] : 1950 74 From: Naif Damian PT, ATC Referring Dr.: VERO Hall Status: REG RCR Insurance: MEDICARE PART A B [facility] Patient's Visit Information Visit Information Visit Information: PARKER YI is a 74 year old M referred to Physical Therapy by VERO Hall with a diagnosis of L knee pain. Date of Evaluation: 10/23/24 Physical Therapist: Naif Damian PT, ATC Visit Plan Frequency: 1x/Week Duration: 1 Week Plan: Issue and instruct pt on a gym strengthening routine on his next visit. Also issue HEP for core strengthening. Follow up then in one month. Subjective Subjective: Pt reports he has had L knee pain for a chronic time period. 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 For Medicare only, by signing this I certify the plan of care. Please let me know if there are questions or concerns regarding this plan of care. Physician Signature: _Date: 10/23/24 1701 CC: VERO Martínez; Dr. Davis May MD [facility] Signed Normal [facility] CBC W Auto Differential pane l (Bld)on 10-13-2024 Basophils (Bld) [#/Vol] NINF [facility] Basophils/100 WBC (Bld) 0.4 % [facility] Differential cell count method Nom (Bld) Auto [facility] Eosinophils (Bld) [#/Vol] 0.08 10*3/uL [facility] Eosinophils/100 WBC (Bld) 1.7 % [facility] Erythrocyte distribution width (RBC) [Ratio] 14.1 % 11.5 - 15.0 % [facility] Hematocrit (Bld) [Volume fraction] 37.7 % Low 39.0 - 51.0 % [facility] Hemoglobin (Bld) [Mass/Vol] 13.1 g/dL 13.0 - 17.0 g/dL [facility] Immature granulocytes (Bld) [#/Vol] [facility] Immature granulocytes/100 WBC (Bld) 0.2 % [facility] Interpretation and review of laboratory results Abnormal [facility] Lymphocytes (Bld) [#/Vol] 0.8 10*3/uL Low [facility] Lymphocytes/100 WBC (Bld) 16.8 % [facility] MCH (RBC) [Entitic mass] 31.6 pg 26.0 - 34.0 pg [facility] MCHC (RBC) [Mass/Vol] 34.7 g/dL 30.5 - 36.0 g/dL [facility] MCV (RBC) [Entitic vol] 90.8 fL 80.0 - 100.0 fL [facility] Monocytes (Bld) [#/Vol] 0.37 10*3/uL [facility] Monocytes/100 WBC (Bld) 7.8 % [facility] Neutrophils (Bld) [#/Vol] 3.49 10*3/uL [facility] Neutrophils/100 WBC (Bld) 73.1 % [facility] Nucleated RBC (Bld) [#/Vol] [facility] Nucleated RBC/100 WBC (Bld) [Ratio] 0 % /100 WBC [facility] Platelet mean volume (Bld) [Entitic vol] 12.1 fL 9.0 - 12.7 fL [facility] Platelets (Bld) [#/Vol] 79 10*3/uL Low [facility] Comment on above: No clot detected. RBC (Bld) [#/Vol] 4.15 10*6/uL Low 4.20 - 6.00 m/uL [facility] WBC (Bld) [#/Vol] 4.77 10*3/uL [facility] HbA1c (Bld)on 10-13-2024 Average glucose Estimated from glycated hemoglobin (Bld) [Mass/Vol] 169 mg/dL [facility] Comment on above: eAG: (Estimated aver age glucose) is a calculated value from HgbA1c and is metals sales representative of the average blood glucose level in the last 2-3 month period. HbA1c (Bld) [Mass fraction] 7.5 % High 4.3 - 5.6 % [facility] Comment on above: [place] Diabetes [employer] sociation guidelines indicate that patients with HgbA1c in the range 5.7-6.4% are at increased risk for development of diabetes, and intervention by lifestyle modification may be beneficial. HgbA1c greater or equal to 6.5% is considered diagnostic of diabetes. Interpretation and review of laboratory results Abnormal [facility] CT Cervical spine WO contras ton 10-06-2024 IMPRESSION: Degenerative changes of the cervical spine as discussed. No severe foraminal or severe canal narrowing identified. Degenerative changes are most pronounced at C3-4 as discussed. Anatomic Variant: None. Assume 7 cervical vertebrae with counting from the craniocervical junction. Financial Services Education Consultant: ANTHONY Transcribe Date/Time: Oct 06 2024 1:15P Dictated by : GIOVANI ABEL MD This examination was interpreted and the report reviewed and electronically signed by: GIOVANI ABEL MD on Oct 06 2024 1:18PM [facility] DIVISION OF RADIOLOGY * * *Final Report* * * DATE OF EXAM: Oct 06 2024 12:08PM [facility] 0505 - CT CERVICAL SPINE WO [...] Counting reference: Craniocervical junction. Anatomic Variants: None. City Administrator (topogram) images: No additional findings. Alignment: Alignment [...] foramina are patent. DIVISION OF RADIOLOGY Provider, [facility] - 10/06/2024 * * *Final Report* * * DATE OF EXAM: Oct 06 2024 12:08PM [facility] 0505 - CT CERVICAL SPINE WO [...] Counting reference: Craniocervical junction. Anatomic Variants: None. City Administrator (topogram) images: No additional findings. Alignment: Alignment [...] vertebrae with counting from the craniocervical junction. Financial Services Education Consultant: ANTHONY Transcribe Date/Time: Oct 06 2024 1:15P Dictated by : GIOVANI ABEL MD This examination was interpreted and the report reviewed and electronically signed by: GIOVANI ABEL MD on Oct 06 2024 1:18PM [facility] Radiology Study observation (narrative) [facility] CT Cervical spine WO contras tOrdered By: Ccf Provider on 10-06-2024 [facility] PT D/C Summary (1)on [facility] PT D/C Summary (1) [facility] Physical Therapy [address] [place] [address] / REHABILITATION SERVICES DISCHARGE SUMMARY MR#: [id number] Acct: [id number] Name: PARKER YI Rep #: [id number] : 1950 74 From: Naif Damian PT, [...] please feel free to call me at [phone]. Thank you for the referral of this patient. Sincerely, Naif Damian PT, ATC 09/26/24 1435 CC: VERO Martínez; Dr. Davis May MD [facility] Signed Normal [facility] Inital Evaluation (1) - PTon 08-21-2024 Inital Evaluation (1) - PT [facility] Physical Therapy [facility] [address] [place] [address] [address] [place] [address] / REHABILITATION SERVICES INITIAL EVALUATION MR#: [id number] Acct: [id number] Name: PARKER YI Rep #: [id number] : 1950 74 From: Naif Damian PT, ATC Referring Dr.: VERO Hall Status: REG RCR Insurance: MEDICARE PART A B [facility] Patient's Visit Information Visit Information Visit Information: [...] touch. Palpation: Pt has significant muscle guarding [id number] cervical spine. No deformities noted. MMT: B [...] to be FAXED BACK to us at [phone] for Medicare purposes. For Medicare only, by signing this I certify the plan of care. Please let me know if there are questions or concerns regarding this plan of care. Physician Signature: _Date: 08/21/24 1504 CC: VERO Martínez; Dr. Davis May MD [facility] Signed Normal [facility] Emergency Department Summary on 08-06-2024 Emergency Department Summary [facility] Medical Records Department [address] [place] [address] Emergency Department Summary 08/06/24 MR#: [id number] Acct: [id number] Name: PARKER YI Rep #: [id number] : 1950 74 From: Hay Rodríguez DO [...] intact Psych: Cooperative, appropriate mood and affect [facility] Medical History (Updated 08/06/24 @ 23:[address] Hay Posada-Yarelis, ) Portal vein thrombosis Esophageal varices GERD (gastroesophageal [...] Patient stable (more content not included)... Normal [facility] CRYOTHERAPY SKIN LESIONon Complexity: simple Destruction method: cryotherapy Informed consent: discussed and consent obtained Timeout: patient name, date of , surgical site, and procedure verified Lesion destroyed using liquid nitrogen: Yes Cryotherapy cycles: 2 Outcome: patient tolerated procedure well with no complications Post-procedure details: wound care instructions given [facility] CBC W Auto Differential pane l (Bld)on 07-14-2024 Basophils (Bld) [#/Vol] [facility] Basophils/100 WBC (Bld) 0.3 % [facility] Differential cell count method Nom (Bld) Auto [facility] Eosinophils (Bld) [#/Vol] 0.06 10*3/uL [facility] Eosinophils/100 WBC (Bld) 1.6 % [facility] Erythrocyte distribution width (RBC) [Ratio] 14.1 % 11.5 - 15.0 % [facility] Hematocrit (Bld) [Volume fraction] 39.5 % 39.0 - 51.0 % [facility] Hemoglobin (Bld) [Mass/Vol] 13.3 g/dL 13.0 - 17.0 g/dL [facility] Immature granulocytes (Bld) [#/Vol] [facility] Immature granulocytes/100 WBC (Bld) 0 % [facility] Interpretation and review of laboratory results Abnormal [facility] Lymphocytes (Bld) [#/Vol] 0.76 10*3/uL Low [facility] Lymphocytes/100 WBC (Bld) 19.6 % [facility] MCH (RBC) [Entitic mass] 31 pg 26.0 - 34.0 pg [facility] MCHC (RBC) [Mass/Vol] 33.7 g/dL 30.5 - 36.0 g/dL [facility] MCV (RBC) [Entitic vol] 92.1 fL 80.0 - 100.0 fL [facility] Monocytes (Bld) [#/Vol] 0.28 10*3/uL [facility] Monocytes/100 WBC (Bld) 7.2 % [facility] Neutrophils (Bld) [#/Vol] 2.76 10*3/uL [facility] Neutrophils/100 WBC (Bld) 71.3 % [facility] Nucleated RBC (Bld) [#/Vol] [facility] Nucleated RBC/100 WBC (Bld) [Ratio] 0 % /100 WBC [facility] Platelet mean volume (Bld) [Entitic vol] 12.2 fL 9.0 - 12.7 fL [facility] Platelets (Bld) [#/Vol] 52 10*3/uL Low [facility] Comment on above: Results checked and verified.No clot detected. RBC (Bld) [#/Vol] 4.29 10*6/uL 4.20 - 6.00 m/uL [facility] WBC (Bld) [#/Vol] 3.87 10*3/uL [facility] FERRITINon 07-14-2024 Ferritin [Mass/Vol] 82.1 ng/mL 30.3 - 565.7 ng/mL [facility] Ferritin [Mass/Vol]on 2024 Interpretation and review of laboratory results Normal [facility] Iron and Iron binding capaci ty panelon 07-14-2024 Interpretation and review of laboratory results Normal [facility] Iron [Mass/Vol] 92 ug/dL 41 - 186 ug/dL [facility] Iron binding capacity [Mass/Vol] 267 ug/dL 232 - 386 ug/dL [facility] Iron/TIBC [Molar ratio] 34.5 % 15.0 - 57.0 % [facility] HEMOGLOBIN A1C (POC)on 07-05 HbA1c (Bld) [Mass fraction] 7.1 % Abnormal 4.3 - 5.6 % [facility] Comment on above: Location:[facility], [address] [place], [place] [address] , [place], [address] Point of care (POC) Hemoglobin A1c (HGBA1C) [...] specific diabetes management situations: The POC device director life sciences provides a normal range of 4.2% to 6.5% for the HGBA1C POC test. However, the [place] [employer] guidelines indicate that patients with [...] Interpretation and review of laboratory results Abnormal [facility] ECHOon 06-06-2024 CONCLUSIONS: - Exam indication: [...] [facility] Echocardiography Report: Transthoracic Echo [facility] Date of service: 06/06/2024 9:48:49 AM DIR Ordering physician: NOVA SHAHID Indication: HOCM Technologist: Aide [facility]ens [facility] Interpreting physician: Ahmet Mccray MD PATIENT: Name: [...] TRANSTHORACIC ECHOon LV Ejection Fraction 80 % [facility] Comment on above: (2D biplane) EF > 52 An LV Ejection Fraction of > 50% is normal No Panel Informationon 06-06 [facility] AMMONIAon 05-19-2024 Ammonia (P) [Moles/Vol] 34 umol/L 16 - 60 umol/L [facility] Ammonia (P) [Moles/Vol]on Interpretation and review of laboratory results Normal [facility] Lipid 1996 panelon Cholesterol [Mass/Vol] 187 mg/dL NINF - 200 mg/dL [facility] Comment on above: <200 mg/dL, Desirabl e 200-239 mg/dL, Borderline high >239 mg/dL, High Cholesterol in HDL [Mass/Vol] 83 mg/dL 39 - PINF mg/dL [facility] Comment on above: 40-59 mg/dL, Accepta ble >59 mg/dL, High: Negative risk factor for coronary heart disease <40 mg/dL, Low: Positive risk factor for coronary heart disease Cholesterol in LDL [Mass/Vol] 89 mg/dL NINF - 100 mg/dL [facility] Comment on above: <100 mg/dL, Optimal 100-129 mg/dL, Near optimal/above optimal 130-159 mg/dL, Borderline high 160-189 mg/dL, High >189 mg/dL, Very high Secondary prevention optimal LDL Cholesterol levels are recommended to be < 70 mg/dL Cholesterol in LDL/Cholesterol in HDL [Mass ratio] 1.07 {ratio} NINF - 2.54 [facility] Comment on above: Reference: 1. National Cholesterol Education Program ATP III Guideline At-A-Glance Quick Desk Reference: National Heart, Lung, and Blood [place]. National Institutes of Health. 2001: NIH Publication No. 01-3305. 2. An International Atherosclerosis Society position paper: global recommendations for the management of dyslipidemia: executive summary, Atherosclerosis. 2014: 232(2):410-413. Cholesterol in VLDL [Mass/Vol] 15 mg/dL NINF - 30 mg/dL [facility] Cholesterol non HDL [Mass/Vol] 104 mg/dL NINF - 130 mg/dL [facility] Comment on above: <130 mg/dL, Optimal 130-159 mg/dL, Near optimal/above optimal 160-189 mg/dL, Borderline high 190-219 mg/dL, High >219 mg/dL, Very high Secondary prevention optimal non HDL Cholesterol levels are recommended to be <100 mg/dL Cholesterol.total/Cho lesterol in HDL [Mass ratio] 2.25 {ratio} NINF - 5.10 [facility] Fasting Time 12 hrs [facility] Triglyceride [Mass/Vol] 76 mg/dL NINF - 150 mg/dL [facility] Comment on above: <150 mg/dL, Normal 150-199 mg/dL, Borderline high 200-499 mg/dL, High >499 mg/dL, Very high [facility] CNOVon 04-24-2024 CNOV Office Visit (URCANT ) MATEUS YI ([id number]) 1950 M Date Time Provider Department 04/24/24 1:30 PM LORA THOMAS URCANT During your visit today, we recorded the following information about you: Pulse Respiration Blood pressure 60/minute 18/minute 160/90 Lora Thomas MD 04/24/2024 1:48 PM Signed [facility] UROLOGY NEW PATIENT HISTORY AND PHYSICAL EXAMINATION [...] tablet by mouth once daily. Blood-Glucose Sensor (Whatser G7 SENSOR) wilmer CHANGE SENSOR EVERY 10 [...] pen Inject 5 units once daily Insulin Buckley, Disposable, (BD ULTRAFINE III MINI PEN) 31 [...] Lyme di (more content not included)... Normal [facility] UA DIP, URINE (POC)on 2024 BILIRUBIN UA (POCT) Negative Negative [facility] CLARITY UA (POCT) Clear [facility] COLOR UA (POCT) Yellow [facility] GLUCOSE UA (POCT) Negative Negative mg/dL [facility] Hemoglobin Ql (U) Trace-lysed Abnormal Negative [facility] Interpretation and review of laboratory results Abnormal [facility] KETONE UA (POCT) Negative Negative mg/dL [facility] LEUKOCYTES UA (POCT) Negative [facility] NITRITE UA (POCT) Negative Negative [facility] PH UA (POCT) 5.5 4.5 - 8.0 [facility] Protein Ql (U) >=300 Abnormal Negative mg/dL [facility] SPECIFIC GRAVITY UA (POCT) 1.015 1.005 - 1.030 [facility] UROBILINOGEN UA (POCT) 0.2 Normal E.U./dL [facility] Location:[facility], [address] [place] [address], [address] [place] [address] POINT OF CARE [facility] Urinalysis complete panel (U )on 04-24-2024 Bacteria LM.HPF (Urine sed) [#/Area] None Seen None Seen /HPF [facility] Bilirubin Ql (U) Negative Negative [facility] Clarity (Unsp spec) Clear Clear [facility] Color (U) Yellow Yellow [facility] Epithelial cells LM.HPF (Urine sed) [#/Area] None Seen /HPF [facility] Glucose Test strip (U) [Mass/Vol] Negative Negative [facility] Hemoglobin Ql (U) 1+ Abnormal Negative [facility] Hyaline casts (Urine sed) [#/Area] 1-3 /LPF Abnormal 0 /LPF [facility] Interpretation and review of laboratory results Abnormal [facility] Ketones Ql (U) Negative Negative [facility] Leukocyte esterase Test strip Ql (U) Negative Negative [facility] Nitrite Ql (U) Negative Negative [facility] pH (U) 5.0 [pH] 5.0 - 8.0 [facility] Protein (U) [Mass/Vol] 2+ Abnormal Negative [facility] RBC LM.HPF (Urine sed) [#/Area] 0-3 /HPF 0-3 /HPF [facility] Specific gravity (U) [Rel density] 1.012 1.005 - 1.030 [facility] Urobilinogen Ql (U) Negative Negative [facility] WBC LM.HPF (Urine sed) [#/Area] 0-5 /HPF 0-5 /HPF [facility] Bacteria LM.HPF (Urine sed) [#/Area] None Seen Normal None Seen [facility] Comment on above: Order Comment: Speci men Type: URINE SPECIMEN Ordering Facility: [facility] Address: [address] [place] [address] Performed By: #### 2 4356-8 #### [facility] CLIA [id number] [address] [place] [address] [place] Bilirubin Ql (U) Negative Normal Negative [facility] Comment on above: Order Comment: Speci men Type: URINE SPECIMEN Ordering Facility: [facility] Address: [address] [place] [address] Performed By: #### 2 4356-8 #### [facility] CLIA [id number] [address] [address] [place] Clarity (Unsp spec) Clear Normal Clear [facility] Comment on above: Order Comment: Speci men Type: URINE SPECIMEN Ordering Facility: [facility] Address: [address] [place] [address] Performed By: #### 2 4356-8 #### [facility] CLIA [id number] [address] [place] [address] [place] Color (U) Yellow Normal Yellow [facility] Comment on above: Order Comment: Speci men Type: URINE SPECIMEN Ordering Facility: [facility] Address: [address] [place] [address] Performed By: #### 2 4356-8 #### [facility] CLIA [id number] [address] [place] [address] [place] Epithelial cells LM.HPF (Urine sed) [#/Area] None Seen Normal [facility] Comment on above: Order Comment: Speci men Type: URINE SPECIMEN Ordering Facility: [facility] Address: [address] [place] [address] Performed By: #### 2 4356-8 #### [facility] CLIA [id number] [address] [place] [address] Glucose Test strip (U) [Mass/Vol] Negative Normal Negative [facility] Comment on above: Order Comment: Speci men Type: URINE SPECIMEN Ordering Facility: [facility] Address: [address] [place] [address] Performed By: #### 2 4356-8 #### [facility] CLIA [id number] [address] [place] [address] [place] Hemoglobin Ql (U) 1+ Abnormal Negative [facility] Comment on above: Order Comment: Speci men Type: URINE SPECIMEN Ordering Facility: [facility] Address: [address] [place] [address] Performed By: #### 2 4356-8 #### [facility] CLIA [id number] [address] [place] [address] [place] Hyaline casts (Urine sed) [#/Area] 1-3 /LPF Abnormal 0 /LPF [facility] Comment on above: Order Comment: Speci men Type: URINE SPECIMEN Ordering Facility: [facility] Address: [address] [place] [address] Performed By: #### 2 4356-8 #### [facility] CLIA [id number] [address] [place] [address] [place] Ketones Ql (U) Negative Normal Negative [facility] Comment on above: Order Comment: Speci men Type: URINE SPECIMEN Ordering Facility: [facility] Address: [address] [place] [address] Performed By: #### 2 4356-8 #### [facility] CLIA [id number] [address] [place] [address] [place] Leukocyte esterase Test strip Ql (U) Negative Normal Negative [facility] Comment on above: Order Comment: Speci men Type: URINE SPECIMEN Ordering Facility: [facility] Address: [address] [place] [address] Performed By: #### 2 4356-8 #### [facility] CLIA [id number] [address] [place] [address] [place] Nitrite Ql (U) Negative Normal Negative [facility] Comment on above: Order Comment: Speci men Type: URINE SPECIMEN Ordering Facility: [facility] Address: [address] [place] [address] Performed By: #### 2 4356-8 #### [facility] CLIA [id number] [address] [address] [place] pH (U) 5.0 [pH] Normal 5.0-8.0 [facility] Comment on above: Order Comment: Speci men Type: URINE SPECIMEN Ordering Facility: [facility] Address: [address] [place] [address] Performed By: #### 2 4356-8 #### [facility] CLIA [id number] [address] [place] [address] [place] Protein (U) [Mass/Vol] 2+ Abnormal Negative [facility] Comment on above: Order Comment: Speci men Type: URINE SPECIMEN Ordering Facility: [facility] Address: [address] [place] [address] Performed By: #### 2 4356-8 #### [facility] CLIA [id number] [address] [address] [place] RBC LM.HPF (Urine sed) [#/Area] 0-3 /HPF Normal 0-3 /HPF [facility] Comment on above: Order Comment: Speci men Type: URINE SPECIMEN Ordering Facility: [facility] Address: [address] [place] [address] Performed By: #### 2 4356-8 #### [facility] CLIA [id number] [address] [address] [place] Specific gravity (U) [Rel density] 1.012 Normal 1.005-1.03 0 [facility] Comment on above: Order Comment: Speci men Type: URINE SPECIMEN Ordering Facility: [facility] Address: [address] [place] [address] Performed By: #### 2 4356-8 #### [facility] CLIA [id number] [address] [place], [place] [address] [place] Urobilinogen Ql (U) Negative Normal Negative [facility] Comment on above: Order Comment: Speci men Type: URINE SPECIMEN Ordering Facility: [facility] Address: [address] [place] [address] Performed By: #### 2 4356-8 #### [facility] CLIA [id number] [address] [address] [place] WBC LM.HPF (Urine sed) [#/Area] 0-5 /HPF Normal 0-5 /HPF [facility] Comment on above: Order Comment: Speci men Type: URINE SPECIMEN Ordering Facility: [facility] Address: [address] [place] [address] Performed By: #### 2 4356-8 #### [facility] CLIA [id number] [address] [address] [place] Cryoglobulins, Serumon 04-20 CRYOGLOBULIN,S Comment Normal None detected [facility] Comment on above: Order Comment: Test( s) 749578-Mtvhlpiwkixj, Ql, Serum, Rflx was developed and its performance characteristics determined by [facility]. It has not been cleared or approved by the Food and Drug Administration. Result Comment: None Detected at 72 hours Performed at: [facility] Lab[address] [id number] Rehabilitation Psychologist: Avery Hinojosa PhD, Phone: [phone] Performed By: #### L 0365.2070, B7847.2771 #### [facility] [address] [place], [place], [id number] MADHAV RESULT,S Comment Abnormal . [facility] Comment on above: Order Comment: Test( s) 026570-Dvuvkxkvelue, Ql, Serum, Rflx was developed and its performance characteristics determined by [facility]. It has not been cleared or approved by the Food and Drug Administration. Result Comment: Immu nofixation shows a biclonal IgA protein with kappa specificity. Performed By: #### L 3200.1200, L3200.0100 #### [facility] [address] [place], [address] Immunoglobulins G/A/Mon 01-3 0-2025 IMMUNOGLOB A QN 474 mg/dL High 61-437 [facility] Comment on above: Order Comment: Test( s) 985419-Rgciwpjlnenx, Ql, Serum, Rflx was developed and its performance characteristics determined by [facility]. It has not been cleared or approved by the Food and Drug Administration. N Performed By: #### L 3200.1200, L3200.0100 #### [facility] [address] [place], [address] IMMUNOGLOB G QN 1840 mg/dL High 603-1613 [facility] Comment on above: Order Comment: Test( s) 847707-Kwijnabxhpsy, Ql, Serum, Rflx was developed and its performance characteristics determined by [facility]. It has not been cleared or approved by the Food and Drug Administration. N Performed By: #### L 3200.1200, L3200.0100 #### [facility] [address] [place], [address] IMMUNOGLOB M QN 104 mg/dL Normal 15-143 [facility] Comment on above: Order Comment: Test( s) 816007-Mxwlrlhzrsur, Ql, Serum, Rflx was developed and its performance characteristics determined by [facility]. It has not been cleared or approved by the Food and Drug Administration. N Performed By: #### L 3200.1200, L3200.0100 #### [facility] [address] [place], [address] Comprehensive metabolic 2000 panelon 04-14-2024 Albumin [Mass/Vol] 4.0 g/dL 3.9 - 4.9 g/dL [facility] ALP [Catalytic activity/Vol] 198 U/L High 38 - 113 U/L [facility] ALT [Catalytic activity/Vol] 39 U/L 10 - 54 U/L [facility] Anion gap [Moles/Vol] 14 mmol/L 8 - 15 mmol/L [facility] AST [Catalytic activity/Vol] 52 U/L High 14 - 40 U/L [facility] Bilirubin [Mass/Vol] 0.8 mg/dL 0.2 - 1 .3 mg/dL [facility] Calcium [Mass/Vol] 8.7 mg/dL 8.5 - 10. 2 mg/dL [facility] Chloride [Moles/Vol] 97 mmol/L Low 98 - 10 7 mmol/L [facility] CO2 [Moles/Vol] 24 mmol/L 22 - 30 mmol/L [facility] Creatinine [Mass/Vol] 1.39 mg/dL High 0.73 - 1.22 mg/dL [facility] GFR/1.73 sq M.predicted among non-blacks MDRD (S/P/Bld) [Vol rate/Area] 53 mL/min/{1.73_m2} Low - PINF [facility] Comment on above: Estimated Glomerular Filtration [...] 110 mg/dL High 74 - 99 mg/dL [facility] Comment on above: The [place] Diab[employer] s Association (ADA) provides guidance for [...] Standards of Medical Care in Diabetes 2016, [place] [employer] Association. Diabetes Care. 2016.39(Suppl 1). Interpretation and review of laboratory results Abnormal [facility] Potassium [Moles/Vol] 4.0 mmol/L 3.7 - 5.1 mmol/L [facility] Protein [Mass/Vol] 7.3 g/dL 6.3 - 8.0 g/dL [facility] Sodium [Moles/Vol] 135 mmol/L Low 136 - 144 mmol/L [facility] Urea nitrogen [Mass/Vol] 26 mg/dL High 9 - 24 mg/dL [facility] Serum or plasma IgA measurem ent (mass/volume)on 04-14-2024 IgA [Mass/Vol] 474 mg/dL High 61-437 [facility] Serum or plasma IgG measurem ent (mass/volume)on 04-14-2024 IgG [Mass/Vol] 1840 mg/dL High 603-1613 [facility] UA DIP, URINE (POC)on 2024 BILIRUBIN UA (POCT) Negative Negative [facility] CLARITY UA (POCT) Clear [facility] COLOR UA (POCT) Dark yellow [facility] GLUCOSE UA (POCT) Negative Negative mg/dL [facility] Hemoglobin Ql (U) Moderate Abnormal Negative [facility] Interpretation and review of laboratory results Abnormal [facility] KETONE UA (POCT) Negative Negative mg/dL [facility] LEUKOCYTES UA (POCT) Negative Negative [facility] NITRITE UA (POCT) Negative Negative [facility] PH UA (POCT) 5.5 4.5 - 8.0 [facility] Protein Ql (U) >=300 Abnormal Negative mg/dL [facility] SPECIFIC GRAVITY UA (POCT) 1.025 1.005 - 1.030 [facility] UROBILINOGEN UA (POCT) 0.2 Normal E.U./dL [facility] Location:[facility], [address] [place] [address], [place], [address] [facility] POINT OF CARE [facility] UA DIP, URINE (POC)on 2024 BILIRUBIN UA (POCT) Negative Negative [facility] CLARITY UA (POCT) Clear [facility] COLOR UA (POCT) Yellow [facility] GLUCOSE UA (POCT) Negative Negative mg/dL [facility] Hemoglobin Ql (U) Small Abnormal Negative [facility] Interpretation and review of laboratory results Abnormal [facility] KETONE UA (POCT) Negative Negative mg/dL [facility] LEUKOCYTES UA (POCT) Negative Negative [facility] NITRITE UA (POCT) Negative Negative [facility] PH UA (POCT) 5.5 4.5 - 8.0 [facility] Protein Ql (U) 100 mg/dL Abnormal Negative [facility] SPECIFIC GRAVITY UA (POCT) 1.020 1.005 - 1.030 [facility] UROBILINOGEN UA (POCT) 0.2 Normal E.U./dL [facility] Location:[facility], [address] [place], [place], [id number] [place] [address] POINT OF CARE [facility] CT Liver W contrast Porter IMPRESSION: 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 No OPTN class 5/LI-RADS 5 lesion. COMMUNICATION: Communicated with Stevan Thomas MD on 03/29/2024 12:06 PM via verbal communication. Financial Services Education Consultant: PSCB Transcribe Date/Time: Mar 29 2024 11:31A Dictated by : LINDEN CARTWRIGHT MD This examination was interpreted and the report reviewed and electronically signed by: PARKER PERSON MD on Mar 29 2024 1:55PM [facility] DIVISION OF RADIOLOGY * * *Final Report* * * DATE OF EXAM: Mar 29 2024 11:16AM [facility] 0548 - CT LIVER W IVCON / [...] No additional findings. DIVISION OF RADIOLOGY Provider, [facility] - 03/29/2024 * * *Final Report* * * DATE OF EXAM: Mar 29 2024 11:16AM [facility] 0548 - CT LIVER W IVCON / [...] on 03/29/2024 12:06 PM via verbal communication. Financial Services Education Consultant: PSCAnuj Transcribe Date/Time: Mar 29 2024 11:31A Dictated by : LINDEN CARTWRIGHT MD This examination was interpreted and the report reviewed and electronically signed by: PARKER PERSON MD on Mar 29 2024 1:55PM EST [facility] Radiology Study observation (narrative) [facility] CT Liver W contrast IVSampson iniguez By: Ccf Provider on 03-29-2024 [facility] Large Joint Arthro/Inj: L kn ee jointon 02-14-2024 Bobby Owusu PA-C 02/14/2024 1:01 PM Large Joint Arthro/Inj: L knee joint Informed Consent Consent Obtained: Verbal [place] Protocol A moment to CARE was completed. [...] Plan of Care Visit completed when applicable [facility] CRYOTHERAPY SKIN LESIONon Complexity: simple Destruction [...] verbalized understanding and desires us to proceed. [facility] No Panel Informationon 09-27 IMPRESSION: Cirrhosis [...] Patent hepatic vessels with appropriately directed flow. Financial Services Education Consultant: ANTHONY Transcribe Date/Time: Sep 28 2023 11:01A Dictated by : LONNIE GUAJARDO MD This examination was interpreted and the report reviewed and electronically signed by: LONNIE GUAJARDO MD on Sep 28 2023 11:15AM [facility] DIVISION OF RADIOLOGY Radiology Study observation (narrative) [facility] No Panel InformationOrdered By: Ccf Provider on 09-28-2023 [facility] US.doppler Abdominal vessels on 09-28-2023 * [...] phasic wave form. DIVISION OF RADIOLOGY Provider, [facility] - 09/28/2023 * * *Final Report* * [...] Patent hepatic vessels with appropriately directed flow. Financial Services Education Consultant: [facility] Transcribe Date/Time: Sep 28 2023 11:01A Dictated by : LONNIE GUAJARDO MD This examination was interpreted and the report reviewed and electronically signed by: LONNIE GUAJARDO MD on Sep 28 2023 11:15AM [facility] US.doppler Unspecified body regionon 09-28-2023 * * [...] phasic wave form. DIVISION OF RADIOLOGY Provider, Sajan Agosto [facility] - 09/28/2023 * * *Final Report* * [...] Patent hepatic vessels with appropriately directed flow. Financial Services Education Consultant: PSCB Transcribe Date/Time: Sep 28 2023 11:01A Dictated by : LONNIE GUAJARDO MD This examination was interpreted and the report reviewed and electronically signed by: LONNIE GUAJARDO MD on Sep 28 2023 11:15AM EST [facility] COPPER BLOODOrdered By: Jade Ortiz on 07-12-2023 Copper [Mass/Vol] 98 ug/dL 70 - 140 ug/dL [facility] Comment on above: This test was develo ped and its performance characteristics determined by [facility] [place] ([facility]). It has not been cleared or approved by the FDA. -[facility] is regulated under CLIA as qualified to perform high-complexity testing. This test is used for clinical purposes. It should not be regarded as investigational or for research. No Panel InformationOrdered By: Chhaya Ortiz on 07-12-2023 Interpretation and review of laboratory results Normal [facility] ZINC BLDon 07-12-2023 Zinc [Mass/Vol] 66 ug/dL 60 - 120 ug/dL [facility] Comment on above: This test was develo ped and its performance characteristics determined by [facility]'s [facility] [place] ([facility]). It has not been cleared or approved by the FDA. -[facility] is regulated under CLIA as qualified to perform high-complexity testing. This test is used for clinical purposes. It should not be regarded as investigational or for research. Nuclear Ab IA Ql (S)on 07-09 [place] Scr Qual Negative Negative [facility] Comment on above: The qualitative anti nuclear antibody screen test performed using the following antigens: dsDNA, Chromatin, Ribosomal P, SS-A 60, SS-A 52, SS-B, Sm, SmRNP, NURSE OUTREACH CASE MANAGER A, NURSE OUTREACH CASE MANAGER 68, Scl-70, Katerina-1, and Centromere B. Methodology: Multiplex flow immunoassay. Interpretation and review of laboratory results Normal [facility] CBC W Auto Differential pane l (Bld)on 07-09-2023 Basophils (Bld) [#/Vol] [facility] Basophils/100 WBC (Bld) 0.3 % [facility] Differential cell count method Nom (Bld) Auto [facility] Eosinophils (Bld) [#/Vol] 0.06 10*3/uL [facility] Eosinophils/100 WBC (Bld) 1.5 % [facility] Erythrocyte distribution width (RBC) [Ratio] 20.3 % High 11.5 - 15.0 % [facility] Hematocrit (Bld) [Volume fraction] 36.6 % Low 39.0 - 51.0 % [facility] Hemoglobin (Bld) [Mass/Vol] 12.1 g/dL Low 13.0 - 17.0 g/dL [facility] Immature granulocytes (Bld) [#/Vol] [facility] Immature granulocytes/100 WBC (Bld) 0.3 % [facility] [facility] (Bld) [#/Vol] 0.88 10*3/uL Low [facility] Lymphocytes/100 WBC (Bld) 22.6 % [facility] MCH (RBC) [Entitic mass] 28.7 pg 26.0 - 34.0 pg [facility] MCHC (RBC) [Mass/Vol] 33.1 g/dL 30.5 - 36.0 g/dL [facility] MCV (RBC) [Entitic vol] 86.7 fL 80.0 - 100.0 fL [facility] Monocytes (Bld) [#/Vol] 0.32 10*3/uL [facility] Monocytes/100 WBC (Bld) 8.2 % [facility] Neutrophils (Bld) [#/Vol] 2.61 10*3/uL [facility] Neutrophils/100 WBC (Bld) 67.1 % [facility] Nucleated RBC (Bld) [#/Vol] [facility] Nucleated RBC/100 WBC (Bld) [Ratio] 0.0 % /100 WBC [facility] Platelet mean volume (Bld) [Entitic vol] [facility] Comment on above: Unable to Report. Platelets (Bld) [#/Vol] 60 10*3/uL Low [facility] Comment on above: No clot detected. RBC (Bld) [#/Vol] 4.22 10*6/uL 4.20 - 6.00 m/uL [facility] WBC (Bld) [#/Vol] 3.89 10*3/uL [facility] This is an appended report. These results have been appended to a previously verified report. [facility] FERRITINon 07-09-2023 Ferritin [Mass/Vol] 281.0 ng/mL 30.3 - 565.7 ng/mL [facility] FOLATE, SERUMon 07-09-2023 Folate [Mass/Vol] 17.3 ng/mL 4.7 - PINF ng/mL [facility] Ferritin [Mass/Vol]on 2023 Interpretation and review of laboratory results Normal [facility] IMMATURE PLATELET FRACTIONon 07-09-2023 Platelets reticulated/100 platelets Auto (Bld) 15.0 % High 0.9 - 7.2 % [facility] Iron and Iron binding capaci ty panelon 07-09-2023 Interpretation and review of laboratory results Normal [facility] Iron [Mass/Vol] 105 ug/dL 41 - 186 ug/dL [facility] Iron binding capacity [Mass/Vol] 276 ug/dL 232 - 386 ug/dL [facility] Iron/TIBC [Molar ratio] 38.0 % 15.0 - 57.0 % [facility] No Panel Informationon 07-08 Interpretation and review of laboratory results Normal [facility] Interpretation and review of laboratory results Abnormal [facility] RHEUMATOID FACTORon 07-09-19 Rheumatoid factor Qn NINF [facility] Rheumatoid factor Qnon 07-08 Interpretation and review of laboratory results Normal [facility] VITAMIN B12on 07-09-2023 Cobalamin (Vitamin B12) [Mass/Vol] 890 pg/mL 232 - 1245 pg/mL [facility] EGD Study observation Narrat iveon 07-06-2023 [facility] ICD REMOTE CHECKon AV Delay Adaptive Paced Minimum (ms) 300 ms [facility] AV Delay Adaptive Sensed Minimum (ms) 300 ms [facility] AV Delay Paced (ms) 200 ms [facility] AV Delay Sensed (ms) 200 ms [facility] Danilo RA Pacing Amplitude (volts) 2.0 V [facility] Danilo RA Pacing Polarity BI [facility] Danilo RA Pacing Pulse Width (ms) 0.4 ms [facility] Danilo RA Sensing Amplitude (mvolts) 0.25 mV [facility] Danilo RA Sensing Polarity BI [facility] Danilo RV Pacing Amplitude (volts) 2.0 V [facility] Danilo RV Pacing Polarity BI [facility] Danilo RV Pacing Pulse Width (ms) 0.4 ms [facility] Danilo RV Sensing Amplitude (mvolts) 0.6 mV [facility] Danilo RV Sensing Polarity BI [facility] Detection Configuration (Vent) 2 - Zone [facility] FastVT_Detection Interval 273 ms [facility] FastVT_Therapy Configuration 1 ATP(s) + 8 Shock(s) [facility] ICD FastVT DetectionStatus ENABLED [facility] ICD-AMS EPISODES 170 {beats}/min [facility] ICD-ATP Episodes (Vent) 0 [facility] ICD-ATRIALFIBRILLATIO N 1 [facility] ICD-ATRIALTACHYCARDIA 1 [facility] ICD-ATRIALTACHYCARDIA 2 [facility] ICD-ATRIALTACHYCARDIA 22 [facility] ICD-Device Mfg BSX [facility] ICD-Fast Ventricular Tachycardia 22 [facility] ICD-LEADIMPEDANCEATRI AL 525 ohm [facility] ICD-Percent Pacing (Atrial) 19 % [facility] ICD-Percent Pacing (Vent) 0 % [facility] ICD-Shocks Aborted (Vent) 0 [facility] [id number] 0 [facility] ICD-SHOCKSABORTED 0 [facility] ICD-SHOCKSDELIVEREDVE NTRICULAR 0 [facility] ICD-Ventricular Fibrillation 0 [facility] Lead Impedance (RV) 451 ohm [facility] Lead Impedance High Voltage 50 ohm [facility] Lead1 Mfg BSX [facility] Lead2 Mfg GDT [facility] Location RV [facility] Location RA [facility] Lower Rate (bpm) 50 {beats}/min [facility] MDT_PROG_TACHY_ZONE_D ETECTIONS_STATUS ENABLED [facility] Model E[address] [facility] Model 0296 [employer]ak Relianc e 4-Site G [facility] Model 4136 Dextrus [facility] Pacing Mode DDD [facility] Serial Number [id number] [facility] Serial Number [id number] [facility] Serial Number [id number] [facility] Test Charge Energy 11 [facility] Test Charge Time 11.5 s [facility] Therapy Status (Vent) Enabled [facility] Thresh RA Capture Amplitude (volts) 0.5 V [facility] Thresh RA Capture Duration (ms) 0.4 ms [facility] Thresh RV Capture Amplitude (VOLTS) 0.7 V [facility] Thresh RV Capture Duration (MS) 0.4 ms [facility] Tracking Rate (bpm) 130 {beats}/min [facility] VF Zone Detection Interval 273 ms [facility] VF Zone Therapy Configuration 1 ATP(s) + 8 Shock(s) [facility] No Panel Informationon 06-25 BLANK _ [facility] ICD-ATRIALTACHYCARDIA 0 [facility] ICD-Fast Ventricular Tachycardia 0 [facility] Implant Date 08/16/2012 [facility] Absolute lymphocyte countOrd ered By: Roselia Santos on 03-29-2023 Lymphocytes Auto (Unsp spec) [#/Vol] 1.40 10*3/uL 0.83-4.51 [facility] Basophil percentageOrdered B y: Roselia Santos on 03-29-2023 Basophils/100 WBC (Bld) 0.4 % 0-1 [facility] Chloride [Moles/Vol] 110 mmol/L 98-107 [facility] Eosinophils/100 WBC (Bld) 3.7 % 0-5 [facility] Glucose [Mass/Vol] 138 mg/dL 74-106 [facility] Comment on above: Fasting Glucose resu lt greater than or equal to 126 mg/dL suggests DIABETES MELLITUS per A.D.A. criteria. Neutrophils (Bld) [#/Vol] 2.6 10*3/uL 2.0-7.7 [facility] Neutrophils/100 WBC (Bld) 56.3 % 47-70 [facility] Potassium [Moles/Vol] 3.9 mmol/L 3.5-5.1 [facility] Sodium [Moles/Vol] 139 mmol/L 136-145 [facility] WBC (Bld) [#/Vol] 4.6 10*3/uL 4.4-11.0 [facility] Blood erythrocytes count (nu mber/volume)Ordered By: Roselia Santos on 03-29-2023 RBC (Bld) [#/Vol] 2.97 10*6/uL 4.6-6.2 [facility] Blood hemoglobin measurement (mass/volume)Ordered By: Roselia Santos on 03-29-2023 Hemoglobin (Bld) [Mass/Vol] 9.3 g/dL 13.0-16.5 [facility] Blood lymphocytes/100 leukoc ytesOrdered By: Roselia Santos on 03-29-2023 Lymphocytes/100 WBC (Bld) 30.5 % 19-41 [facility] Blood monocytes/100 leukocyt esOrdered By: Roselia Santos on 03-29-2023 Monocytes/100 WBC (Bld) 8.9 % 0-10 [facility] Blood platelet adequacy dete ction by light microscopyOrdered By: Roselia Santos on 03-29-2023 Platelets LM Ql (Bld) MKD DEC ADEQ [facility] Blood platelet mean volumeOr dered By: Roselia Santos on 03-29-2023 Platelet mean volume (Bld) [Entitic vol] 13.7 fL 6.2-12.0 [facility] Determination of erythrocyte mean corpuscular volume (MCV)Ordered By: Roselia Santos on 03-29-2023 MCV (RBC) [Entitic vol] 95.6 fL 80-94 [facility] Hematocrit Auto (Bld) [Volum e fraction]Ordered By: Roselia Santos on 03-29-2023 Hematocrit (Bld) [Volume fraction] 28.4 % 40-54 [facility] Laboratory - Chemistry and C hemistry - challengeOrdered By: Roselia Santos on 03-29-2023 CO2 [Moles/Vol] 25.0 mmol/L 21.0-32.0 [facility] Urea nitrogen/Creatinine [Mass ratio] 14.3 mg/mg 10-20 [facility] - Hematology and Cell countsOrdered By: Roselia Santos on 03-29-2023 Erythrocyte distribution width (RBC) [Entitic vol] 47.8 fL 35.1-43.9 [facility] Erythrocyte distribution width (RBC) [Ratio] 13.9 % 11.6-14.6 [facility] Immature granulocytes/100 WBC (Bld) 0.200 % 0.0-0.9 [facility] Comment on above: IG% - Immature Granu locytes (promyelocytes, myelocytes and metamyelocytes) > 1% indicates that a LEFT SHIFT is Present. MCH (RBC) [Entitic mass] 31.3 pg 27.0-32.0 [facility] Nucleated RBC/100 WBC (Bld) [Ratio] 0 % 0-5 [facility] MCHC Auto (RBC) [Mass/Vol]Or dered By: Roselia Santos on 03-29-2023 MCHC (RBC) [Mass/Vol] 32.7 g/dL 32-36 [facility] No Panel InformationOrdered By: Roselia Santos on 03-29-2023 Estimated Creatinine Clearance Calc 48.39 ml/min [facility] Estimated GFR (MDRD) Amer 60 mL/min >60 [facility] Comment on above: GFR Calc Estimated GFR (MDRD) Non-Af Amer 50 mL/min >60 [facility] Comment on above: Non- GFR Calc Platelets bldOrdered By: Vickie Santos on 03-29-2023 Platelets (Bld) [#/Vol] 56 10*3/uL 150-450 [facility] Serum or plasma calcium maría urement (mass/volume)Ordered By: Roselia Santos on 03-29-2023 Calcium [Mass/Vol] 8.2 mg/dL 8.5-10.1 [facility] Serum or plasma creatinine m easurement (mass/volume)Ordered By: Roselia Santos on 03-29-2023 Creatinine [Mass/Vol] 1.47 mg/dL 0.70-1.30 [facility] Comment on above: The validity of the calculated GFR & GFRAA in patients over 70 years has not been determined. Clinical correlation is essential. Serum or plasma urea nitroge n measurement (mass/volume)Ordered By: Roselia Santos on 03-29-2023 Urea nitrogen [Mass/Vol] 21 mg/dL 7-18 [facility] Thin prep Papanicolaou smear with manual screeningOrdered By: Roselia Santos on 03-29-2023 Thin prep Papanicolaou smear with manual screening 4 5-15 [facility] Blood manual differential co mment interpretation (narrative result)Ordered By: Roselia Santos on 03-28-2023 Manual differential comment [place] (Bld) [Interp] SCANNED [facility] Review by pathologistOrdered By: Roselia Santos on 03-28-2023 Pathologist review [place] (Unsp spec) [Interp] Reviewed [facility] Comment on above: Previous reported re sult: Deepali escalona Edited by: RGODANO on 03/29/23:1210Pancytopenia.Leukopenia Macrocytic anemia.marked ThrombocytopeniaClinical correlation necessary.Efrain Jo M.D. 03/29/23 AMENDED REPORT 03/29/23 1210 PATH REV previously reported as: Deepali escalona Basophil percentageOrdered B y: Bernadette Hernandez on 03-27-2023 Basophil percentage 2.5 mg/dL 2.5-4.9 [facility] Bilirubin [Mass/Vol] 0.80 mg/dL 0.20-1.00 [facility] Comment on above: For patients on eltr ombopag therapy, use of [place] TBIL is not recommended. Protein [Mass/Vol] 6.3 g/dL 6.4-8.2 [facility] INR in Blood by Coagulation assayOrdered By: Bernadette Hernandez on 03-27-2023 INR Coag (Bld) [Relative time] 1.4 {INR} [facility] - Chemistry and C hemistry - challengeOrdered By: Bernadette Hernandez on 03-27-2023 ALP [Catalytic activity/Vol] 155 U/L 45-117 [facility] ALT [Catalytic activity/Vol] 51 U/L 16-61 [facility] Globulin (S) [Mass/Vol] 3.5 g/dL 2.2-4.2 [facility] Magnesium [Mass/Vol] 1.5 mg/dL 1.6-2.6 [facility] Laboratory - CoagulationOrde red By: Bernadette Hernandez on 03-27-2023 PT Coag (PPP) [Time] 17.2 s 11.7-14.9 [facility] No Panel InformationOrdered By: Bernadette Hernandez on 03-27-2023 Thyroid Stimulating Hormone (TSH) 0.59 uIU/mL 0.358-3.74 [facility] Serum or plasma albumin maría urement (mass/volume)Ordered By: Bernadette Hernandez on 03-27-2023 Albumin [Mass/Vol] 2.8 g/dL 3.2-5.0 [facility] Serum or plasma albumin/glob ulin mass ratioOrdered By: Bernadette Hernandez on 03-27-2023 Albumin/Globulin [Mass ratio] 0.8 {ratio} 0.9-2.4 [facility] Thin prep Papanicolaou smear with manual screeningOrdered By: Bernadette Hernandez on 03-27-2023 Thin prep Papanicolaou smear with manual screening 52 U/L 15-37 [facility] Absolute lymphocyte countOrd ered By: ED PROVIDER on 03-26-2023 Lymphocytes Auto (Unsp spec) [#/Vol] 1.67 10*3/uL 0.83-4.51 [facility] Basophil percentageOrdered B y: Esteban Renee on 03-26-2023 Basophil percentage 0 SEEN /hpf 0-5 [facility] Basophil percentageOrdered B y: ED PROVIDER on 03-26-2023 Basophils/100 WBC (Bld) 0.3 % 0-1 [facility] Bilirubin [Mass/Vol] 1.10 mg/dL 0.20-1.00 [facility] Comment on above: For patients on eltr ombopag therapy, use of [place] TBIL is not recommended. Chloride [Moles/Vol] 106 mmol/L 98-107 [facility] Eosinophils/100 WBC (Bld) 0.9 % 0-5 [facility] Glucose [Mass/Vol] 224 mg/dL 74-106 [facility] Comment on above: Glucose result great er than or equal to 200 mg/dLsuggests DIABETES MELLITUS per A.D.A. criteria. Neutrophils (Bld) [#/Vol] 7.3 10*3/uL 2.0-7.7 [facility] Neutrophils/100 WBC (Bld) 73.9 % 47-70 [facility] Potassium [Moles/Vol] 4.2 mmol/L 3.5-5.1 [facility] Protein [Mass/Vol] 7.2 g/dL 6.4-8.2 [facility] Sodium [Moles/Vol] 138 mmol/L 136-145 [facility] WBC (Bld) [#/Vol] 9.9 10*3/uL 4.4-11.0 [facility] Bilirubin Test strip Ql (U)O rdered By: Esteban Renee on 03-26-2023 Bilirubin Ql (U) Negative Negative [facility] Blood erythrocytes count (nu mber/volume)Ordered By: ED PROVIDER on 03-26-2023 RBC (Bld) [#/Vol] 3.80 10*6/uL 4.6-6.2 [facility] Blood hemoglobin measurement (mass/volume)Ordered By: ED PROVIDER on 03-26-2023 Hemoglobin (Bld) [Mass/Vol] 11.9 g/dL 13.0-16.5 [facility] Blood lymphocytes/100 leukoc ytesOrdered By: ED PROVIDER on 03-26-2023 Lymphocytes/100 WBC (Bld) 16.9 % 19-41 [facility] Blood monocytes/100 leukocyt esOrdered By: ED PROVIDER on 03-26-2023 Monocytes/100 WBC (Bld) 7.6 % 0-10 [facility] Blood platelet mean volumeOr dered By: ED PROVIDER on 03-26-2023 Platelet mean volume (Bld) [Entitic vol] 13.4 fL 6.2-12.0 [facility] Determination of erythrocyte mean corpuscular volume (MCV)Ordered By: ED PROVIDER on 03-26-2023 MCV (RBC) [Entitic vol] 94.7 fL 80-94 [facility] Hematocrit Auto (Bld) [Volum e fraction]Ordered By: ED PROVIDER on 03-26-2023 Hematocrit (Bld) [Volume fraction] 36.0 % 40-54 [facility] Ketones Test strip Ql (U)Ord ered By: Esteban Renee on 03-26-2023 Ketones Ql (U) 5 mg/dl Negative [facility] Laboratory - Chemistry and C hemistry - challengeOrdered By: ED PROVIDER on 03-26-2023 ALP [Catalytic activity/Vol] 194 U/L 45-117 [facility] ALT [Catalytic activity/Vol] 65 U/L 16-61 [facility] CO2 [Moles/Vol] 27.0 mmol/L 21.0-32.0 [facility] Globulin (S) [Mass/Vol] 4.1 g/dL 2.2-4.2 [facility] Urea nitrogen/Creatinine [Mass ratio] 42.3 mg/mg 10-20 [facility] Laboratory - Hematology and Cell countsOrdered By: ED PROVIDER on 03-26-2023 Erythrocyte distribution width (RBC) [Entitic vol] 46.8 fL 35.1-43.9 [facility] Erythrocyte distribution width (RBC) [Ratio] 13.6 % 11.6-14.6 [facility] Immature granulocytes/100 WBC (Bld) 0.400 % 0.0-0.9 [facility] Comment on above: IG% - Immature Granu locytes (promyelocytes, myelocytes and metamyelocytes) > 1% indicates that a LEFT SHIFT is Present. MCH (RBC) [Entitic mass] 31.3 pg 27.0-32.0 [facility] Nucleated RBC/100 WBC (Bld) [Ratio] 0 % 0-5 [facility] MCHC Auto (RBC) [Mass/Vol]Or dered By: ED PROVIDER on 03-26-2023 MCHC (RBC) [Mass/Vol] 33.1 g/dL 32-36 [facility] Mucus LM Ql (Urine sed)Order ed By: Esteban Renee on 03-26-2023 Mucus Ql (Urine sed) 0 SEEN /hpf [facility] Nitrite Test strip Ql (U)Ord ered By: Esteban Renee on 03-26-2023 Nitrite Ql (U) Negative Negative [facility] No Panel InformationOrdered By: ED PROVIDER on 03-26-2023 Estimated Creatinine Clearance Calc 51.92 ml/min [facility] Estimated GFR (MDRD) Amer 65 mL/min >60 [facility] Comment on above: GFR Calc Estimated GFR (MDRD) Non-Af Amer 54 mL/min >60 [facility] Comment on above: Non- GFR Calc Platelets bldOrdered By: ED PROVIDER on 03-26-2023 Platelets (Bld) [#/Vol] 86 10*3/uL 150-450 [facility] Protein Test strip Ql (U)Ord ered By: Esteban Renee on 03-26-2023 Protein Ql (U) 100 mg/dl Negative [facility] Serum or plasma albumin maría urement (mass/volume)Ordered By: ED PROVIDER on 03-26-2023 Albumin [Mass/Vol] 3.1 g/dL 3.2-5.0 [facility] Serum or plasma albumin/glob ulin mass ratioOrdered By: ED PROVIDER on 03-26-2023 Albumin/Globulin [Mass ratio] 0.8 {ratio} 0.9-2.4 [facility] Serum or plasma calcium maría urement (mass/volume)Ordered By: ED PROVIDER on 03-26-2023 Calcium [Mass/Vol] 9.1 mg/dL 8.5-10.1 [facility] Serum or plasma creatinine m easurement (mass/volume)Ordered By: ED PROVIDER on 03-26-2023 Creatinine [Mass/Vol] 1.37 mg/dL 0.70-1.30 [facility] Comment on above: The validity of the calculated GFR & GFRAA in patients over 70 years has not been determined. Clinical correlation is essential. Serum or plasma urea nitroge n measurement (mass/volume)Ordered By: ED PROVIDER on 03-26-2023 Urea nitrogen [Mass/Vol] 58 mg/dL 7-18 [facility] Squamous epithelial cells de tection in urine sediment by light microscopyOrdered By: Esteban Renee on 03-26-2023 Epithelial cells.squamous LM Ql (Urine sed) 0 SEEN /hpf 0-5 [facility] Stool enteric pathogen panel by probe and target amplification methodOrdered By: Bernadette Hernandez on 03-26-2023 Gastrointestinal pathogens panel MARILYN+probe (Stl) [facility] Stool lactoferrin detection by immunoassayOrdered By: Bernadette Hernandez on 03-26-2023 Lactoferrin IA Ql (Stl) [facility] Thin prep Papanicolaou smear with manual screeningOrdered By: ED PROVIDER on 03-26-2023 Thin prep Papanicolaou smear with manual screening 62 U/L 15-37 [facility] Thin prep Papanicolaou smear with manual screening 5 5-15 [facility] Urine blood detectionOrdered By: Esteban Renee on 03-26-2023 RBC Ql (U) Negative Negative [facility] RBC Ql (U) 0 SEEN /hpf 0-5 [facility] Urine clarityOrdered By: Marielena Renee on 03-26-2023 Clarity (U) Clear Clear [facility] Urine color determinationOrd ered By: Esteban Renee on 03-26-2023 Color (U) Yellow Yellow [facility] Urine glucose detectionOrder ed By: Esteban Renee on 03-26-2023 Glucose Ql (U) 100 mg/dl Normal [facility] Urine leukocyte esterase det ection by dipstickOrdered By: Esteban Renee on 03-26-2023 Leukocyte esterase Test strip Ql (U) Negative Negative [facility] Urine pHOrdered By: Esteban milian on 03-26-2023 pH (U) 6.0 [pH] 5.0 - 8.0 [facility] Urine sediment bacteria coun t by microscopy (number/high power field)Ordered By: Esteban Renee on 03-26-2023 Bacteria LM.HPF (Urine sed) [#/Area] 0 /[HPF] None Seen [facility] Urine specific gravity measu rementOrdered By: Esteban Renee on 03-26-2023 Specific gravity (U) [Rel density] 1.015 1.002-1.03 0 [facility] Urobilinogen Auto test strip Ql (U)Ordered By: Esteban Renee on 03-26-2023 Urobilinogen Ql (U) Normal mg/dl Normal [facility] Lipid 1996 panelon Cholesterol [Mass/Vol] 147 mg/dL <200 mg/dL [facility] Cholesterol in HDL [Mass/Vol] 54 mg/dL >39 mg/dL [facility] Cholesterol in LDL [Mass/Vol] 76 mg/dL <100 mg/dL [facility] Cholesterol in LDL/Cholesterol in HDL [Mass ratio] 1.41 {ratio} <2.54 [facility] Cholesterol in VLDL [Mass/Vol] 17 mg/dL <30 mg/dL [facility] Cholesterol non HDL [Mass/Vol] 93 mg/dL <130 mg/dL [facility] Cholesterol.total/Cho lesterol in HDL [Mass ratio] 2.72 {ratio} <5.10 [facility] Fasting Time 8 hrs [facility] Triglyceride [Mass/Vol] 87 mg/dL <150 mg/dL [facility] No Panel Informationon 02-16 Radiology Result ACTIONABLE Abnormal [facility] ICD REMOTE CHECKon 3 AV Delay Adaptive Paced Minimum (ms) 300 ms [facility] AV Delay Adaptive Sensed Minimum (ms) 300 ms [facility] AV Delay Paced (ms) 200 ms [facility] AV Delay Sensed (ms) 200 ms [facility] Danilo RA Pacing Amplitude (volts) 2.0 V [facility] Danilo RA Pacing Polarity BI [facility] Danilo RA Pacing Pulse Width (ms) 0.4 ms [facility] Danilo RA Sensing Amplitude (mvolts) 0.25 mV [facility] Danilo RA Sensing Polarity BI [facility] Danilo RV Pacing Amplitude (volts) 2.0 V [facility] Danilo RV Pacing Polarity BI [facility] RV Pacing Pulse Width (ms) 0.4 ms [facility] RV Sensing Amplitude (mvolts) 0.6 mV [facility] Danilo RV Sensing Polarity BI [facility] Detection Configuration (Vent) 2 - Zone [facility] FastVT_Detection Interval 273 ms [facility] FastVT_Therapy Configuration 1 ATP(s) + 8 Shock(s) [facility] ICD FastVT DetectionStatus ENABLED [facility] ICD-AMS EPISODES 170 {beats}/min [facility] ICD-ATP Episodes (Vent) 0 [facility] ICD-ATRIALFIBRILLATIO N 1 [facility] ICD-ATRIALTACHYCARDIA 1 [facility] ICD-ATRIALTACHYCARDIA 2 [facility] ICD-ATRIALTACHYCARDIA 16 [facility] ICD-Device Mfg BSX [facility] ICD-Fast Ventricular Tachycardia 16 [facility] ICD-LEADIMPEDANCEATRI AL 565 ohm [facility] ICD-Percent Pacing (Atrial) 19 % [facility] ICD-Percent Pacing (Vent) 0 % [facility] ICD-Shocks Aborted (Vent) 0 [facility] [id number] 0 [facility] ICD-SHOCKSABORTED 0 [facility] ICD-SHOCKSDELIVEREDVE NTRICULAR 0 [facility] ICD-Ventricular Fibrillation 0 [facility] Lead Impedance (RV) 494 ohm [facility] Lead Impedance High Voltage 58 ohm [facility] Lead1 Mfg BSX [facility] Lead2 Mfg GDT [facility] Location RV [facility] Location RA [facility] Lower Rate (bpm) 50 {beats}/min [facility] MDT_PROG_TACHY_ZONE_D ETECTIONS_STATUS ENABLED [facility] Model E142 LIZETTN [facility] Model 0296 [employer] Relianc e 4-Site G [facility] Model 4136 Dextrus [facility] Pacing Mode DDD [facility] Serial Number [id number] [facility] Serial Number [id number] [facility] Serial Number [id number] [facility] Test Charge Energy 11 J [facility] Test Charge Time 11.2 s [facility] Therapy Status (Vent) Enabled [facility] Thresh RA Capture Amplitude (volts) 0.5 V [facility] Thresh RA Capture Duration (ms) 0.4 ms [facility] Thresh RV Capture Amplitude (VOLTS) 0.7 V [facility] Thresh RV Capture Duration (MS) 0.4 ms [facility] Tracking Rate (bpm) 130 {beats}/min [facility] VF Zone Detection Interval 273 ms [facility] VF Zone Therapy Configuration 1 ATP(s) + 8 Shock(s) [facility] No Panel Informationon 12-15 BLANK _ [facility] ICD-ATRIALTACHYCARDIA 0 [facility] ICD-Fast Ventricular Tachycardia 0 [facility] Implant Date 08/16/2012 [facility] XR Cervical spine AP and Lat eral and obliqueon 10-18-2022 IMPRESSION: MULTILEV EL DEGENERATIVE DISC AND FACET DISEASE AND BILATERAL NEUROFORAMINAL NARROWING. Financial Services Education Consultant[facility] Transcribe Date/Time: Oct 18 2022 6:48P Dictated by : MALIKA TROY MD This examination was interpreted and the report reviewed and electronically signed by: MALIKA TROY MD on Oct 18 2022 6:50PM [facility] DIVISION OF RADIOLOGY * * *Final [...] C6. DIVISION OF RADIOLOGY Provider, Sajan haskins Crumrod - 10/18/2022 * * *Final Report* * [...] AND FACET DISEASE AND BILATERAL NEUROFORAMINAL NARROWING. 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 Financial Services Education Consultant: ANTHONY Transcribe Date/Time: Oct 18 2022 6:50P Dictated by : MALIKA TROY MD This examination was interpreted and the report reviewed and electronically signed by: MALIKA TROY MD on Oct 18 2022 6:53PM [facility] DIVISION OF RADIOLOGY * * *Final [...] fascia. No fracture. DIVISION OF RADIOLOGY Provider, [facility] - 10/18/2022 * * *Final Report* * [...] AND DEGENERATIVE CHANGES IN THE GREAT TOE. Financial Services Education Consultant: ANTHONY Transcribe Date/Time: Oct 18 2022 6:50P Dictated by : MALIKA TROY MD This examination was interpreted and the report reviewed and electronically signed by: MALIKA TROY MD on Oct 18 2022 6:53PM EST [facility] No Panel Informationon 10-14 Radiology Study observation (narrative) [facility] US ABD LIVER VASCULARon - [facility] US DOPPLER COMPLETEon 2022 [facility] ICD REMOTE CHECKon AV Delay Adaptive Paced Minimum (ms) 300 ms [facility] AV Delay Adaptive Sensed Minimum (ms) 300 ms [facility] AV Delay Paced (ms) 200 ms [facility] AV Delay Sensed (ms) 200 ms [facility] Danilo RA Pacing Amplitude (volts) 2.0 V [facility] Danilo RA Pacing Polarity BI [facility] Danilo RA Pacing Pulse Width (ms) 0.4 ms [facility] Danilo RA Sensing Amplitude (mvolts) 0.25 mV [facility] Danilo RA Sensing Polarity BI [facility] Danilo RV Pacing Amplitude (volts) 2.0 V [facility] Danilo RV Pacing Polarity BI [facility] Danilo RV Pacing Pulse Width (ms) 0.4 ms [facility] Danilo RV Sensing Amplitude (mvolts) 0.6 mV [facility] Danilo RV Sensing Polarity BI [facility] Detection Configuration (Vent) 2 - Zone [facility] FastVT_Detection Interval 273 ms [facility] FastVT_Therapy Configuration 1 ATP(s) + 8 Shock(s) [facility] ICD FastVT DetectionStatus ENABLED [facility] ICD-AMS EPISODES 170 {beats}/min [facility] ICD-ATP Episodes (Vent) 0 [facility] ICD-ATRIALFIBRILLATIO N 1 [facility] ICD-ATRIALTACHYCARDIA 1 [facility] ICD-ATRIALTACHYCARDIA 2 [facility] ICD-ATRIALTACHYCARDIA 16 [facility] ICD-Device Mfg BSX [facility] ICD-Fast Ventricular Tachycardia 16 [facility] ICD-LEADIMPEDANCEATRI AL 584 ohm [facility] ICD-Percent Pacing (Atrial) 20 % [facility] ICD-Percent Pacing (Vent) 0 % [facility] ICD-Shocks Aborted (Vent) 0 [facility] [id number] [facility] ICD-SHOCKSABORTED 0 [facility] ICD-SHOCKSDELIVEREDVE NTRICULAR 0 [facility] ICD-Ventricular Fibrillation 0 [facility] Lead Impedance (RV) 474 ohm [facility] Lead Impedance High Voltage 55 ohm [facility] Lead1 Mfg BSX [facility] Lead2 Mfg GDT [facility] Location RV [facility] Location RA [facility] Lower Rate (bpm) 50 {beats}/min [facility] MDT_PROG_TACHY_ZONE_D ETECTIONS_STATUS ENABLED [facility] Model E[address] [facility] Model 0296 Endotak Relianc e 4-Site G [facility] Model 4136 Dextrus [facility] Pacing Mode DDD [facility] Serial Number [id number] [facility] Serial Number [id number] [facility] Serial Number [id number] [facility] Test Charge Energy 11 [facility] Test Charge Time 10.9 s [facility] Therapy Status (Vent) Enabled [facility] Thresh RA Capture Amplitude (volts) 0.5 V [facility] Thresh RA Capture Duration (ms) 0.4 ms [facility] Thresh RV Capture Amplitude (VOLTS) 0.7 V [facility] Thresh RV Capture Duration (MS) 0.4 ms [facility] Tracking Rate (bpm) 130 {beats}/min [facility] VF Zone Detection Interval 273 ms [facility] VF Zone Therapy Configuration 1 ATP(s) + 8 Shock(s) [facility] No Panel Informationon 06-10 BLANK _ [facility] ICD-ATRIALTACHYCARDIA 0 [facility] ICD-Fast Ventricular Tachycardia 0 [facility] Implant Date 08/16/2012 [facility] US ABD LIVER VASCULARon 03-22 [facility] US DOPPLER COMPLETEon 2022 [facility] ICD REMOTE CHECKon AV Delay Adaptive Paced Minimum (ms) 300 ms [facility] AV Delay Adaptive Sensed Minimum (ms) 300 ms [facility] AV Delay Paced (ms) 200 ms [facility] AV Delay Sensed (ms) 200 ms [facility] Danilo RA Pacing Amplitude (volts) 2 V [facility] Danilo RA Pacing Polarity BI [facility] Danilo RA Pacing Pulse Width (ms) 0.4 ms [facility] Danilo RA Sensing Amplitude (mvolts) 0.25 mV [facility] Danilo RA Sensing Polarity BI [facility] Danilo RV Pacing Amplitude (volts) 2 V [facility] Danilo RV Pacing Polarity BI [facility] Danilo RV Pacing Pulse Width (ms) 0.4 ms [facility] Danilo RV Sensing Amplitude (mvolts) 0.6 mV [facility] Danilo RV Sensing Polarity BI [facility] Detection Configuration (Vent) 2 - Zone [facility] FastVT_Detection Interval 273 ms [facility] FastVT_Therapy Configuration 1 ATP(s) + 8 Shock(s) [facility] ICD FastVT DetectionStatus ENABLED [facility] ICD-AMS EPISODES 170 {beats}/min [facility] ICD-ATP Episodes (Vent) 0 [facility] ICD-ATRIALFIBRILLATIO N 1 [facility] ICD-ATRIALTACHYCARDIA 1 [facility] ICD-ATRIALTACHYCARDIA 2 [facility] ICD-ATRIALTACHYCARDIA 15 [facility] ICD-Device Mfg BSX [facility] ICD-Fast Ventricular Tachycardia 15 [facility] ICD-LEADIMPEDANCEATRI AL 586 ohm [facility] ICD-Percent Pacing (Atrial) 21 % [facility] ICD-Percent Pacing (Vent) 0 % [facility] ICD-Shocks Aborted (Vent) 0 [facility] [id number] 0 [facility] ICD-SHOCKSABORTED 0 [facility] ICD-SHOCKSDELIVEREDVE NTRICULAR 0 [facility] ICD-Ventricular Fibrillation 0 [facility] Lead Impedance (RV) 474 ohm [facility] Lead Impedance High Voltage 54 ohm [facility] Lead1 Mfg BSX [facility] Lead2 Mfg GDT [facility] Location RV [facility] Location RA [facility] Lower Rate (bpm) 50 {beats}/min [facility] MDT_PROG_TACHY_ZONE_D ETECTIONS_STATUS ENABLED [facility] Model E142 ENERGEN [facility] Model 0296 [employer] Relianc e 4-Site G [facility] Model 4136 Dextrus [facility] Pacing Mode DDD [facility] Serial Number [id number] [facility] Serial Number [id number] [facility] Serial Number [id number] [facility] Test Charge Energy 11 J [facility] Test Charge Time 10.9 s [facility] Therapy Status (Vent) Enabled [facility] Thresh RA Capture Amplitude (volts) 0.5 V [facility] Thresh RA Capture Duration (ms) 0.4 ms [facility] Thresh RV Capture Amplitude (VOLTS) 0.7 V [facility] Thresh RV Capture Duration (MS) 0.4 ms [facility] Tracking Rate (bpm) 130 {beats}/min [facility] VF Zone Detection Interval 273 ms [facility] VF Zone Therapy Configuration 1 ATP(s) + 8 Shock(s) [facility] No Panel Informationon 03-13 BLANK _ [facility] ICD-ATRIALTACHYCARDIA 0 [facility] ICD-Fast Ventricular Tachycardia 0 [facility] Implant Date 08/16/2012 [facility] ICD REMOTE CHECKon 2 AV Delay Adaptive Paced Minimum (ms) 300 ms [facility] AV Delay Adaptive Sensed Minimum (ms) 300 ms [facility] AV Delay Paced (ms) 200 ms [facility] AV Delay Sensed (ms) 200 ms [facility] Danilo RA Pacing Amplitude (volts) 2 V [facility] Danilo RA Pacing Polarity BI [facility] Danilo RA Pacing Pulse Width (ms) 0.4 ms [facility] Danilo RA Sensing Amplitude (mvolts) 0.25 mV [facility] Danilo RA Sensing Polarity BI [facility] Danilo RV Pacing Amplitude (volts) 2 V [facility] Danilo RV Pacing Polarity BI [facility] Danilo RV Pacing Pulse Width (ms) 0.4 ms [facility] Danilo RV Sensing Amplitude (mvolts) 0.6 mV [facility] Danilo RV Sensing Polarity BI [facility] Detection Configuration (Vent) 2 - Zone [facility] FastVT_Detection Interval 273 ms [facility] FastVT_Therapy Configuration 1 ATP(s) + 8 Shock(s) [facility] ICD FastVT DetectionStatus ENABLED [facility] ICD-AMS EPISODES 170 {beats}/min [facility] ICD-ATP Episodes (Vent) 0 [facility] ICD-ATRIALFIBRILLATIO N 1 [facility] ICD-ATRIALTACHYCARDIA 1 [facility] ICD-ATRIALTACHYCARDIA 2 [facility] ICD-ATRIALTACHYCARDIA 14 [facility] ICD-Device Mfg BSX [facility] ICD-Fast Ventricular Tachycardia 14 [facility] ICD-LEADIMPEDANCEATRI AL 552 ohm [facility] ICD-Percent Pacing (Atrial) 21 % [facility] ICD-Percent Pacing (Vent) 0 % [facility] ICD-Shocks Aborted (Vent) 0 [facility] [id number] 0 [facility] ICD-SHOCKSABORTED 0 [facility] ICD-SHOCKSDELIVEREDVE NTRICULAR 0 [facility] ICD-Ventricular Fibrillation 0 [facility] Lead Impedance (RV) 481 ohm [facility] Lead Impedance High Voltage 55 ohm [facility] Lead1 Mfg BSX [facility] Lead2 Mfg GDT [facility] Location RV [facility] Location RA [facility] Lower Rate (bpm) 50 {beats}/min [facility] MDT_PROG_TACHY_ZONE_D ETECTIONS_STATUS ENABLED [facility] Model [address] [facility] Model 0296 [employer] Relianc e 4-Site G [facility] Model 4136 Dextrus [facility] Pacing Mode DDD [facility] Serial Number [id number] [facility] Serial Number [id number] [facility] Serial Number [id number] [facility] Test Charge Energy 11 J [facility] Test Charge Time 10.8 s [facility] Therapy Status (Vent) Enabled [facility] Thresh RA Capture Amplitude (volts) 0.5 V [facility] Thresh RA Capture Duration (ms) 0.4 ms [facility] Thresh RV Capture Amplitude (VOLTS) 0.7 V [facility] Thresh RV Capture Duration (MS) 0.4 ms [facility] Tracking Rate (bpm) 130 {beats}/min [facility] VF Zone Detection Interval 273 ms [facility] VF Zone Therapy Configuration 1 ATP(s) + 8 Shock(s) [facility] No Panel Informationon 12-08 BLANK _ [facility] ICD-ATRIALTACHYCARDIA 0 [facility] ICD-Fast Ventricular Tachycardia 0 [facility] Implant Date 08/16/2012 [facility] ICD REMOTE CHECKon 2 AV Delay Adaptive Paced Minimum (ms) 300 ms [facility] AV Delay Adaptive Sensed Minimum (ms) 300 ms [facility] AV Delay Paced (ms) 200 ms [facility] AV Delay Sensed (ms) 200 ms [facility] Danilo RA Pacing Amplitude (volts) 2 V [facility] Danilo RA Pacing Polarity BI [facility] Danilo RA Pacing Pulse Width (ms) 0.4 ms [facility] Danilo RA Sensing Amplitude (mvolts) 0.25 mV [facility] Danilo RA Sensing Polarity BI [facility] Danilo RV Pacing Amplitude (volts) 2 V [facility] Danilo RV Pacing Polarity BI [facility] Danilo RV Pacing Pulse Width (ms) 0.4 ms [facility] Danilo RV Sensing Amplitude (mvolts) 0.6 mV [facility] Danilo RV Sensing Polarity BI [facility] Detection Configuration (Vent) 2 - Zone [facility] FastVT_Detection Interval 273 ms [facility] FastVT_Therapy Configuration 1 ATP(s) + 8 Shock(s) [facility] ICD FastVT DetectionStatus ENABLED [facility] ICD-AMS EPISODES 170 {beats}/min [facility] ICD-ATP Episodes (Vent) 0 [facility] ICD-ATRIALFIBRILLATIO N 1 [facility] ICD-ATRIALTACHYCARDIA 1 [facility] ICD-ATRIALTACHYCARDIA 2 [facility] ICD-ATRIALTACHYCARDIA 13 [facility] ICD-Device Mfg BSX [facility] ICD-Fast Ventricular Tachycardia 13 [facility] ICD-LEADIMPEDANCEATRI AL 556 ohm [facility] ICD-Percent Pacing (Atrial) 21 % [facility] ICD-Percent Pacing (Vent) 0 % [facility] ICD-Shocks Aborted (Vent) 0 [facility] [id number] 0 [facility] ICD-SHOCKSABORTED 0 [facility] ICD-SHOCKSDELIVEREDVE NTRICULAR 0 [facility] ICD-Ventricular Fibrillation 0 [facility] Lead Impedance (RV) 470 ohm [facility] Lead Impedance High Voltage 55 ohm [facility] Lead1 Mfg BSX [facility] Lead2 Mfg GDT [facility] Location RV [facility] Location RA [facility] Lower Rate (bpm) 50 {beats}/min [facility] MDT_PROG_TACHY_ZONE_D ETECTIONS_STATUS ENABLED [facility] Model [address] [facility] Model 0296 [employer] Relianc e 4-Site G [facility] Model 4136 Dextrus [facility] Pacing Mode DDD [facility] Serial Number [id number] [facility] Serial Number [id number] [facility] Serial Number [id number] [facility] Test Charge Energy 11 J [facility] Test Charge Time 10.7 s [facility] Therapy Status (Vent) Enabled [facility] Thresh RA Capture Amplitude (volts) 0.5 V [facility] Thresh RA Capture Duration (ms) 0.4 ms [facility] Thresh RV Capture Amplitude (VOLTS) 0.7 V [facility] Thresh RV Capture Duration (MS) 0.4 ms [facility] Tracking Rate (bpm) 130 {beats}/min [facility] VF Zone Detection Interval 273 ms [facility] VF Zone Therapy Configuration 1 ATP(s) + 8 Shock(s) [facility] No Panel Informationon 09-02 BLANK _ [facility] ICD-ATRIALTACHYCARDIA 0 [facility] ICD-Fast Ventricular Tachycardia 0 [facility] Implant Date 08/16/[address] [facility] [address] LIVER W IVCONon 2 [facility] No Panel Informationon 07-21 Radiology Result ACTIONABLE [facility] CNOVon 05-13-2017 CNOV Office Visit (AGCARDWST) ----MATEUS YI ([id number]) 1950 MDate Time Provider Department05/13/17 1:30 PM WILL FAN AGCARDWST During your visit today, we recorded the following information about you: Pulse Blood pressure Weight Height 57/minute 148/84 92.3 kg 1.829 Jose Fan MD 05/13/2017 5:40 PM SignedPERTINENT CARDIAC HISTORYHOCMSyncope - ICD 08/01 ([employer] two lead)HTNADHERENCE TO GUIDELINESACE-I or ARB for HF with prior LVEFANDlt;40 (NQF 0081) - N/AASA or Plavix for ASHD (NQF 0067) - N/ABeta david for ASHD with prior LA or prior LVEFANDlt;40 (NQF 0070) - N/ABeta [...] him that he be enrolled in the [facility] device clinic,EPdepartment and hypertrophic myopathy clinic. Prior [...] with treatment plan.This note was generated using [employer] voice recognition system, and there may besome incorrect words, spellings, and punctuation that were not noted inchecking the note before saving.DIAGNOSIS FOR VISIT:HOCMPreoperative cardiac risk assessmentHISTORY OF PRESENT ILLNESSMateus Yi is a 67-year-old gentleman who is seen in consultation at [facility] of Dr. Drake, for preoperative cardiac risk assessment.He recently moved from [place] and will be living here for the [...] normal.Previous records were reviewed. He has a [employer] dual-chamber device.Atrial and ventricular amplitudes, impedance [...] mild mitral insufficiencyand mild SAMElectronically Signed:Will Fan MDTuba City Regional Health Care Corporationuary 2017 2:25 PMCC: IVY Tobias MD 05/13/2017 2:25 PM SignedLIFESTYLE CHANGEA healthy [...] in your area.Referring Provider: GRAY NOGUERA III [[id number]]Allergies As of Date: 05/13/2017 Noted Allergy ReactionVALSARTAN 05/12/2017 5 - Intolerance Comments: Cramps in legs, muscle painVICODIN (HYDROCODONE-ACETAMINOPHE* 10 - AnaphylaxisDate Reviewed: 05/13/2017Reviewed by: Anthony (Rn) RAMIN Espino - Fully AssessedReason for Visit: New Patient [172]Primary Visit Diagnosis:Preop cardiovascular exam [Z01.810] Other Visit Diagnosis:HOCM (hypertrophic obstructive cardiomyopathy) (HCC) [I42.1]Order(s):ECG B/O W INTERP (MED OFFICE) [ECG06] Order #: [id number] CONSULT TO DEVICE CLINIC (AG) [[id number]] Order #: [id number]: 1 CONSULT TO ELECTROPHYSIOLOGY [[id number]] Order #: [id number]: 1 losartan (COZAAR) 100 mg tabletTake 1 [...] the following areas and commit to making fdc changes. EAT A WHOLE FOOD, PLANT BASED [...] End LOSARTAN 100 MG TABLET 30 t* 05/13/2017 Route: ORAL Sig: Take 1 tablet [...] SmartForms filed during this visit:Extended VitalsEncounter Number: [id number] Status:Closed by WILL FAN MD on 05/13/17 Normal [facility] PROGRESSon 05-13-2017 PROGRESS HNO ID: [id number] thor: Will Mayorga: (none)Author Type: PhysicianType: Progress NotesFiled: 05/13/2017 5:40 PMNote Text:PERTINENT CARDIAC HISTORYHOCMSyncope - ICD 5/13 ([place] two lead)HTNADHERENCE TO GUIDELINESACE-I or ARB for HF with prior LVEF<40 (NQF 0081) - N/AASA or Plavix for ASHD (NQF 0067) - N/ABeta david for ASHD with prior LA or prior LVEF<40 (NQF 0070) - N/ABeta david for HF with prior LVEF<40 (NQF 0083) - N/AACE-I or ARB for ASHD with DM or prior LVEF<40 (NQF 0066) - N/AStatin therapy for ASHD or FHL or DM - N/ABMI documented and plan if >25 (NQF 0421) - lifestyle recommendation formTobacco use screening and referral (NQF 0028) - lifestyle recommendationformRecommendat ion for whole [...] him that he be enrolled in the [facility] device clinic,EP department and hypertrophic myopathy [...] with treatment plan.This note was generated using [employer] voice recognition system, and theremay be some incorrect words, spellings, and punctuation that were notnoted in checking the note before saving.DIAGNOSIS FOR VISIT:HOCMPreoperative cardiac risk assessmentHISTORY OF PRESENT ILLNESSMateus Yi is a 67-year-old gentleman who is seen in consultation at [facility] of Dr. Drake, for preoperative cardiac risk assessment.He recently moved from [place] and will be living here for the [...] normal.Previous records were reviewed. He has a [employer] dual-chamberdevice. Atrial and ventricular amplitudes, impedance and thresholds havebeen stable. He has received no therapies recently. He has had nosignificant atrial or ventricular arrhythmias.Vascular screening tests showed no significant disease in 2012. Calciumscore was 0. Coronary angiogram in 2012 [...] 2:25 PMCC: Gray Noguera III MD Normal [facility] SKIN / NAIL BIOPSY [facility] Vital Signs Date Time Vital Sign Value Performing Clinician Facility 01-05-2025 20:17-0400 Body height 182.[address] Davis May MD Work Phone: [facility] 01-05-2025 20:17-0400 Body temperature 99.2 [degF] Dr. Davis May MD Work Phone: [facility] 01-05-2025 20:17-0400 Diastolic blood pressure 74 mm[Hg] Dr. Davis May MD Work Phone: [facility] 01-05-2025 20:17-0400 Heart rate 67 /min Dr. Davis May MD Work Phone: [facility] 01-05-2025 20:17-0400 Respiratory rate 18 /min Dr. Davis May MD Work Phone: [facility] 01-05-2025 20:17-0400 SaO2% (BldA) [Mass fraction] 96 % Dr. Davis May MD Work Phone: [facility] 01-05-2025 20:17-0400 Systolic blood pressure 133 mm[Hg] Dr. Davis May MD Work Phone: [facility] 11-13-2024 11:06-0400 Body height 182.9 cm Jose Landry MD Work Phone: [facility] 11-13-2024 11:06-0400 Body mass index (BMI) [Ratio] 23.73 kg/m2 Jose Landry MD Work Phone: [facility] 11-13-2024 11:06-0400 Body weight 79.38 kg Jose Landry MD Work Phone: [facility] 11-13-2024 11:06-0400 Diastolic blood pressure 77 mm[Hg] Jose Landry MD Work Phone: [facility] 11-13-2024 11:06-0400 Heart rate 58 /min Jose Landry MD Work Phone: [facility] 11-13-2024 11:06-0400 Respiratory rate 16 /min Jose Landry MD Work Phone: [facility] 11-13-2024 11:06-0400 SaO2% (BldA) [Mass fraction] 95 % Jose Landry MD Work Phone: [facility] 11-13-2024 11:06-0400 Systolic blood pressure 132 mm[Hg] Jose Landry MD Work Phone: [facility] 11-02-2024 13:26-0400 Body mass index (BMI) [Ratio] 25.26 kg/m2 Anjali Fong PACKAGER AND STRAPPER.ROAD INSPECTOR Work Phone: [facility] 11-02-2024 13:26-0400 Body weight 83.2 kg Anjali Fong PACKAGER AND STRAPPER.ROAD INSPECTOR Work Phone: [facility] 11-02-2024 13:26-0400 Heart rate 57 /min Anjali Fong PACKAGER AND STRAPPER.ROAD INSPECTOR Work Phone: [facility] 11-02-2024 13:26-0400 SaO2% (BldA) [Mass fraction] 95 % Anjali Fong PACKAGER AND STRAPPER.ROAD INSPECTOR Work Phone: [facility] 10-13-2024 15:08-0400 Body mass index (BMI) [Ratio] 24.65 kg/m2 Liseth Mazzoni DO Work Phone: [facility] 10-13-2024 15:08-0400 Body temperature 97.11 [degF] Liseth Mazzoni DO Work Phone: [facility] 10-13-2024 15:08-0400 Body weight 81.2 kg Liseth Mazzoni DO Work Phone: [facility] 10-13-2024 15:08-0400 Diastolic blood pressure 69 mm[Hg] Liseth Mazzoni DO Work Phone: [facility] 10-13-2024 15:08-0400 Heart rate 58 /min Liseth Mazzoni DO Work Phone: [facility] 10-13-2024 15:08-0400 Respiratory rate 14 /min Liseth Mazzoni DO Work Phone: [facility] 10-13-2024 15:08-0400 SaO2% (BldA) [Mass fraction] 95 % Liseth Mazzoni DO Work Phone: [facility] [facility] 10[facility]13-2024 15:08-0400 Systolic blood pressure 127 mm[Hg] Liseth Ortiz DO Work Phone: [facility] 10-04-2024 13:05-0400 Body mass index (BMI) [Ratio] 25.1 kg/m2 Prabhu Tyler MD Work Phone: [facility] 10-04-2024 13:05-0400 Body weight 82.7 kg Prabhu Tyler MD Work Phone: [facility] 10-04-2024 13:05-0400 Heart rate 58 /min Prabhu Tyler MD Work Phone: [facility] 10-04-2024 13:05-0400 SaO2% (BldA) [Mass fraction] 96 % Prabhu Tyler MD Work Phone: [facility] 10-03-2024 11:04-0400 Diastolic blood pressure 88 mm[Hg] Obdulia Haagen P[employer]AGER AND STRAPPER.ROAD INSPECTOR Work Phone: [facility] 10-03-2024 11:04-0400 Heart rate 57 /min Obdulia Haagen P[employer]AGER AND STRAPPER.ROAD INSPECTOR Work Phone: [facility] 10-03-2024 11:04-0400 Respiratory rate 16 /min Obdulia Haagen PACKAGER AND STRAPPER.ROAD INSPECTOR Work Phone: [facility] 10-03-2024 11:04-0400 SaO2% (BldA) [Mass fraction] 98 % Obdulia Haagen PACKAGER AND STRAPPER.ROAD INSPECTOR Work Phone: [facility] 10-03-2024 11:04-0400 Systolic blood pressure 144 mm[Hg] Obdulia Haagen PACKAGER AND STRAPPER.ROAD INSPECTOR Work Phone: [facility] 08-07-2024 11:20-0400 Body height 182.9 cm Jose Landry MD Work Phone: [facility] 08-07-2024 11:20-0400 Body mass index (BMI) [Ratio] 23.73 kg/m2 Jose Landry MD Work Phone: [facility] 08-07-2024 11:20-0400 Body weight 79.38 kg Jose Landry MD Work Phone: [facility] 08-07-2024 11:20-0400 Diastolic blood pressure 80 mm[Hg] Jose Landry MD Work Phone: [facility] 08-07-2024 11:20-0400 Heart rate 66 /min Jose Landry MD Work Phone: [facility] 08-07-2024 11:20-0400 SaO2% (BldA) [Mass fraction] 97 % Jose Landry MD Work Phone: [facility] 08-07-2024 11:20-0400 Systolic blood pressure 150 mm[Hg] Jose Landry MD Work Phone: [facility] 08-06-2024 23:04-0400 Body temperature 98.2 [degF] Dr. Davis May MD Work Phone: [facility] 08-06-2024 23:04-0400 Diastolic blood pressure 89 mm[Hg] Dr. Davis May MD Work Phone: [facility] 08-06-2024 23:04-0400 Heart rate 67 /min Dr. Davis May MD Work Phone: [facility] 08-06-2024 23:04-0400 Respiratory rate 18 /min Dr. Davis May MD Work Phone: [facility] 08-06-2024 23:04-0400 SaO2% (BldA) [Mass fraction] 94 % Dr. Davis May MD Work Phone: [facility] 08-06-2024 23:04-0400 Systolic blood pressure 153 mm[Hg] Dr. Davis May MD Work Phone: [facility] 08-06-2024 22:53-0400 Body mass index (BMI) [Ratio] 25.2 kg/m2 Dr. Davis May MD Work Phone: [facility] 08-06-2024 22:53-0400 Body weight 84.[address] Davis May MD Work Phone: [facility] 08-06-2024 22:41-0400 Body height 182.[address] Davis May MD Work Phone: [facility] 07-24-2024 13:44-0400 Body height 182.9 cm Davis May MD Work Phone: [facility] 07-24-2024 13:44-0400 Body mass index (BMI) [Ratio] 24.28 kg/m2 Davis May MD Work Phone: [facility] 07-24-2024 13:44-0400 Body weight 81.19 kg Davis May MD Work Phone: [facility] 07-24-2024 13:44-0400 Diastolic blood pressure 60 mm[Hg] Davis May MD Work Phone: [facility] 07-24-2024 13:44-0400 Heart rate 61 /min Davis May MD Work Phone: [facility] 07-24-2024 13:44-0400 SaO2% (BldA) [Mass fraction] 96 % Davis May MD Work Phone: [facility] 07-24-2024 13:44-0400 Systolic blood pressure 110 mm[Hg] Davis May MD Work Phone: [facility] 07-14-2024 14:31-0400 Body mass index (BMI) [Ratio] 24.22 kg/m2 Liseth Irmani DO Work Phone: [facility] 07-14-2024 14:31-0400 Body temperature 98.1 [degF] Liseth Irmani DO Work Phone: [facility] 07-14-2024 14:31-0400 Body weight 81 kg Liseth Peterzoni DO Work Phone: [facility] 07-14-2024 14:31-0400 Diastolic blood pressure 78 mm[Hg] Liseth Peterzoni DO Work Phone: [facility] 07-14-2024 14:31-0400 Heart rate 62 /min Liseth Ortiz DO Work Phone: [facility] 07-14-2024 14:31-0400 Respiratory rate 16 /min Liseth Ortiz DO Work Phone: [facility] 07-14-2024 14:31-0400 SaO2% (BldA) [Mass fraction] 98 % Liseth Ortiz DO Work Phone: [facility] 07-14-2024 14:31-0400 Systolic blood pressure 132 mm[Hg] Liseth Ortiz DO Work Phone: [facility] 07-05-2024 09:44-0400 Body mass index (BMI) [Ratio] 24.68 kg/m2 Evelin Cioce P[employer]AGER AND STRAPPER.ROAD INSPECTOR Work Phone: [facility] 07-05-2024 09:44-0400 Body temperature 98.91 [degF] Evelin Cioce PACKAGER AND STRAPPER.ROAD INSPECTOR Work Phone: [facility] 07-05-2024 09:44-0400 Body weight 82.56 kg Evelin Cioce PACKAGER AND STRAPPER.ROAD INSPECTOR Work Phone: [facility] 07-05-2024 09:44-0400 Diastolic blood pressure 84 mm[Hg] Evelni Cioce PACKAGER AND STRAPPER.ROAD INSPECTOR Work Phone: [facility] 07-05-2024 09:44-0400 Heart rate 68 /min Eevlin Cioce PACKAGER AND STRAPPER.ROAD INSPECTOR Work Phone: [facility] 07-05-2024 09:44-0400 SaO2% (BldA) [Mass fraction] 96 % Evelin Cioce PACKAGER AND STRAPPER.ROAD INSPECTOR Work Phone: [facility] 07-05-2024 09:44-0400 Systolic blood pressure 136 mm[Hg] Evelin Cioce PACKAGER AND STRAPPER.ROAD INSPECTOR Work Phone: [facility] 06-12-2024 11:13-0400 Body height 182.9 cm Bernadette Munguia MD Work Phone: [facility] 06-12-2024 11:13-0400 Body mass index (BMI) [Ratio] 23.33 kg/m2 Bernadette Munguia MD Work Phone: [facility] 06-12-2024 11:13-0400 Body weight 78.02 kg Bernadette Munguia MD Work Phone: [facility] 06-12-2024 11:13-0400 Diastolic blood pressure 76 mm[Hg] Bernadette Munguia MD Work Phone: [facility] 06-12-2024 11:13-0400 Heart rate 68 /min Bernadette Munguia MD Work Phone: [facility] 06-12-2024 11:13-0400 Respiratory rate 12 /min Bernadette Munguia MD Work Phone: [facility] 06-12-2024 11:13-0400 SaO2% (BldA) [Mass fraction] 98 % Bernadette Munguia MD Work Phone: [facility] 06-12-2024 11:13-0400 Systolic blood pressure 152 mm[Hg] Bernadette Munguia MD Work Phone: [facility] 05-30-2024 13:27-0400 Body mass index (BMI) [Ratio] 23.33 kg/m2 Sanna Suppan PACKAGER AND STRAPPER.ROAD INSPECTOR Work Phone: [facility] 05-30-2024 13:27-0400 Body temperature 97.5 [degF] Sanna Suppan PACKAGER AND STRAPPER.ROAD INSPECTOR Work Phone: [facility] 05-30-2024 13:27-0400 Body weight 78.02 kg Sanna Suppan PACKAGER AND STRAPPER.ROAD INSPECTOR Work Phone: [facility] 05-30-2024 13:27-0400 Diastolic blood pressure 72 mm[Hg] Sanna Suppan PACKAGER AND STRAPPER.ROAD INSPECTOR Work Phone: [facility] 05-30-2024 13:27-0400 Heart rate 59 /min Sanna Suppan PACKAGER AND STRAPPER.ROAD INSPECTOR Work Phone: [facility] 05-30-2024 13:27-0400 SaO2% (BldA) [Mass fraction] 94 % Sanna Larsen PACKAGER AND STRAPPER.ROAD INSPECTOR Work Phone: [facility] 05-30-2024 13:27-0400 Systolic blood pressure 126 mm[Hg] Sanna Larsen PACKAGER AND STRAPPER.ROAD INSPECTOR Work Phone: [facility] 05-19-2024 11:04-0500 Body temperature 97.7 [degF] Nurse [facility] Work Phone: [facility] 05-19-2024 11:04-0500 Diastolic blood pressure 88 mm[Hg] Nurse [facility] Work Phone: [facility] 05-19-2024 11:04-0500 Heart rate 55 /min Nurse [facility] Work Phone: [facility] 05-19-2024 11:04-0500 Respiratory rate 17 /min Nurse [facility] Work Phone: [facility] 05-19-2024 11:04-0500 SaO2% (BldA) [Mass fraction] 97 % Nurse [facility] Work Phone: [facility] 05-19-2024 11:04-0500 Systolic blood pressure 148 mm[Hg] Nurse [facility] Work Phone: [facility] 05-12-2024 16:10-0500 Body mass index (BMI) [Ratio] 24.82 kg/m2 Davis May MD Work Phone: [facility] 05-12-2024 16:10-0500 Body weight 83.01 kg Davis May MD Work Phone: [facility] 05-12-2024 16:10-0500 Diastolic blood pressure 82 mm[Hg] Davis May MD Work Phone: [facility] 05-12-2024 16:10-0500 Heart rate 56 /min Davis May MD Work Phone: [facility] 05-12-2024 16:10-0500 SaO2% (BldA) [Mass fraction] 96 % Davis May MD Work Phone: [facility] 05-12-2024 16:10-0500 Systolic blood pressure 122 mm[Hg] Davis May MD Work Phone: [facility] 05-10-2024 11:32-0500 Diastolic blood pressure 87 mm[Hg] Jose Landry MD Work Phone: [facility] 05-10-2024 11:32-0500 Heart rate 57 /min Jose Landry MD Work Phone: [facility] 05-10-2024 11:32-0500 Respiratory rate 18 /min Jose Landry MD Work Phone: [facility] 05-10-2024 11:32-0500 SaO2% (BldA) [Mass fraction] 98 % Jose Landry MD Work Phone: [facility] 05-10-2024 11:32-0500 Systolic blood pressure 151 mm[Hg] Jose Landry MD Work Phone: [facility] 04-24-2024 13:27-0500 Diastolic blood pressure 90 mm[Hg] Lora Thomas MD Work Phone: [facility] 04-24-2024 13:27-0500 Heart rate 60 /min Lora Thomas MD Work Phone: [facility] 04-24-2024 13:27-0500 Respiratory rate 18 /min Lora Thomas MD Work Phone: [facility] 04-24-2024 13:27-0500 Systolic blood pressure 160 mm[Hg] Lora Thomas MD Work Phone: [facility] 04-14-2024 13:52-0500 Body height 182.9 cm Davis May MD Work Phone: [facility] 04-14-2024 13:52-0500 Body mass index (BMI) [Ratio] 24.14 kg/m2 Davis May MD Work Phone: [facility] 04-14-2024 13:52-0500 Body temperature 98.01 [degF] Davis May MD Work Phone: [facility] 04-14-2024 13:52-0500 Body weight 80.74 kg Davis May MD Work Phone: [facility] 04-14-2024 13:52-0500 Diastolic blood pressure 64 mm[Hg] Davis May MD Work Phone: [facility] 04-14-2024 13:52-0500 Heart rate 60 /min Davis May MD Work Phone: [facility] 04-14-2024 13:52-0500 SaO2% (BldA) [Mass fraction] 97 % Davis May MD Work Phone: [facility] 04-14-2024 13:52-0500 Systolic blood pressure 110 mm[Hg] Davis May MD Work Phone: [facility] 04-12-2024 15:34-0500 Body mass index (BMI) [Ratio] 24.37 kg/m2 Glendy Ayala PACKAGER AND STRAPPER.ROAD INSPECTOR Work Phone: [facility] 04-12-2024 15:34-0500 Body weight 81.5 kg Glendy Ayala PACKAGER AND STRAPPER.ROAD INSPECTOR Work Phone: [facility] 04-12-2024 15:34-0500 Diastolic blood pressure 76 mm[Hg] Glendy Ayala PACKAGER AND STRAPPER.ROAD INSPECTOR Work Phone: [facility] 04-12-2024 15:34-0500 Heart rate 68 /min Glendy Ayala PACKAGER AND STRAPPER.ROAD INSPECTOR Work Phone: [facility] 04-12-2024 15:34-0500 Respiratory rate 16 /min Glendy Ayala PACKAGER AND STRAPPER.ROAD INSPECTOR Work Phone: [facility] 04-12-2024 15:34-0500 Systolic blood pressure 130 mm[Hg] Glendy Ayala PACKAGER AND STRAPPER.ROAD INSPECTOR Work Phone: [facility] 04-12-2024 13:05-0500 Body mass index (BMI) [Ratio] 24.01 kg/m2 Nathan Ruth MD Work Phone: [facility] 04-12-2024 13:05-0500 Body weight 80.29 kg Nathan Ruth MD Work Phone: [facility] 04-12-2024 13:05-0500 Diastolic blood pressure 75 mm[Hg] Nathan Ruth MD Work Phone: [facility] 04-12-2024 13:05-0500 Heart rate 59 /min Nathan Ruth MD Work Phone: [facility] 04-12-2024 13:05-0500 Systolic blood pressure 122 mm[Hg] Nathan Ruth MD Work Phone: [facility] 01-18-2024 14:00-0400 Body height 182.9 cm Davis May MD Work Phone: [facility] 01-18-2024 14:00-0400 Body mass index (BMI) [Ratio] 24.88 kg/m2 Davis May MD Work Phone: [facility] 01-18-2024 14:00-0400 Body weight 83.2 kg Davis May MD Work Phone: [facility] 01-18-2024 14:00-0400 Diastolic blood pressure 66 mm[Hg] Davis May MD Work Phone: [facility] 01-18-2024 14:00-0400 Heart rate 58 /min Davis May MD Work Phone: [facility] 01-18-2024 14:00-0400 SaO2% (BldA) [Mass fraction] 95 % Davis May MD Work Phone: [facility] 01-18-2024 14:00-0400 Systolic blood pressure 122 mm[Hg] Davis Mya MD Work Phone: [facility] 12-02-2023 10:06-0400 Body mass index (BMI) [Ratio] 24.62 kg/m2 Jason Quiroz MD Work Phone: [facility] 12-02-2023 10:06-0400 Body temperature 97.81 [degF] Jason Quiroz MD Work Phone: [facility] 12-02-2023 10:06-0400 Body weight 82.33 kg Jason Quiroz MD Work Phone: [facility] 12-02-2023 10:06-0400 Diastolic blood pressure 79 mm[Hg] Jason Quiroz MD Work Phone: [facility] 12-02-2023 10:06-0400 Heart rate 54 /min Jason Quiroz MD Work Phone: [facility] 12-02-2023 10:06-0400 SaO2% (BldA) [Mass fraction] 98 % Jason Quiroz MD Work Phone: [facility] 12-02-2023 10:06-0400 Systolic blood pressure 165 mm[Hg] Jason Quiroz MD Work Phone: [facility] 10-20-2023 12:29-0400 Body height 182.9 cm Evelin Cioce PACKAGER AND STRAPPER.ROAD INSPECTOR Work Phone: [facility] 10-20-2023 12:29-0400 Body mass index (BMI) [Ratio] 24.9 kg/m2 Evelin Cioce PACKAGER AND STRAPPER.ROAD INSPECTOR Work Phone: [facility] 10-20-2023 12:29-0400 Body temperature 98.91 [degF] Evelin Cioce PACKAGER AND STRAPPER.ROAD INSPECTOR Work Phone: [facility] 10-20-2023 12:29-0400 Body weight 83.28 kg Evelin Cioce PACKAGER AND STRAPPER.ROAD INSPECTOR Work Phone: [facility] 10-20-2023 12:29-0400 Diastolic blood pressure 76 mm[Hg] Evelin Cioce PACKAGER AND STRAPPER.ROAD INSPECTOR Work Phone: [facility] 10-20-2023 12:29-0400 Heart rate 62 /min Evelin Cioce PACKAGER AND STRAPPER.ROAD INSPECTOR Work Phone: [facility] 10-20-2023 12:29-0400 SaO2% (BldA) [Mass fraction] 95 % Evelin Cioce PACKAGER AND STRAPPER.ROAD INSPECTOR Work Phone: [facility] 10-20-2023 12:29-0400 Systolic blood pressure 130 mm[Hg] Evelin Cioce PACKAGER AND STRAPPER.ROAD INSPECTOR Work Phone: [facility] 10-04-2023 15:17-0400 Body height 184.2 cm Bernadette Munguia MD Work Phone: [facility] 10-04-2023 15:17-0400 Body mass index (BMI) [Ratio] 24.42 kg/m2 Bernadette Munguia MD Work Phone: [facility] 10-04-2023 15:17-0400 Body weight 82.83 kg Bernadette Munguia MD Work Phone: [facility] 10-04-2023 15:17-0400 Diastolic blood pressure 85 mm[Hg] Bernadette Munguia MD Work Phone: [facility] 10-04-2023 15:17-0400 Heart rate 61 /min Bernadette Munguia MD Work Phone: [facility] 10-04-2023 15:17-0400 SaO2% (BldA) [Mass fraction] 95 % Bernadette Munguia MD Work Phone: [facility] 10-04-2023 15:17-0400 Systolic blood pressure 154 mm[Hg] Bernadette Munguia MD Work Phone: [facility] 09-28-2023 11:38-0400 Body height 184.2 cm Derrek Bear MD Work Phone: [facility] 09-28-2023 11:38-0400 Body mass index (BMI) [Ratio] 23.68 kg/m2 Derrek Bear MD Work Phone: [facility] 09-28-2023 11:38-0400 Body temperature 97.9 [degF] Derrek Bear MD Work Phone: [facility] 09-28-2023 11:38-0400 Body weight 80.3 kg Derrek Bear MD Work Phone: [facility] 09-28-2023 11:38-0400 Diastolic blood pressure 83 mm[Hg] Derrek Bear MD Work Phone: [facility] Comment on above: Pt c/o frequent h/a, nausea, dizziness, none at this time. No distress noted. notified. 09-28-2023 11:38-0400 Heart rate 54 /min Derrek Bear MD Work Phone: [facility] Comment on above: Pt c/o frequent h/a, nausea, dizziness. No distress noted. notified. 09-28-2023 11:38-0400 SaO2% (BldA) [Mass fraction] 97 % Derrek Bear MD Work Phone: [facility] 09-28-2023 11:38-0400 Systolic blood pressure 148 mm[Hg] Derrek Bear MD Work Phone: [facility] Comment on above: Pt c/o frequent h/a, nausea, dizziness, none at this time. No distress noted. notified. 09-02-2023 10:31-0400 Body temperature 97.2 [degF] Nurse [facility] Work Phone: [facility] 09-02-2023 10:31-0400 Diastolic blood pressure 86 mm[Hg] Nurse [facility] Work Phone: [facility] 09-02-2023 10:31-0400 Heart rate 62 /min Nurse [facility] Work Phone: [facility] 09-02-2023 10:31-0400 Respiratory rate 16 /min Nurse [facility] Work Phone: [facility] 09-02-2023 10:31-0400 SaO2% (BldA) [Mass fraction] 95 % Nurse [facility] Work Phone: [facility] 09-02-2023 10:31-0400 Systolic blood pressure 148 mm[Hg] [facility] Work Phone: [facility] 09-01-2023 10:30-0400 Body height 184.2 cm Jason Quiroz MD Work Phone: [facility] 09-01-2023 10:30-0400 Body mass index (BMI) [Ratio] 24.34 kg/m2 Jason Quiroz MD Work Phone: [facility] 09-01-2023 10:30-0400 Body temperature 98.71 [degF] Jason Quiroz MD Work Phone: [facility] 09-01-2023 10:30-0400 Body weight 82.56 kg Jason Quiroz MD Work Phone: [facility] 09-01-2023 10:30-0400 Diastolic blood pressure 86 mm[Hg] Jason Quiroz MD Work Phone: [facility] 09-01-2023 10:30-0400 Heart rate 65 /min Jason Quiroz MD Work Phone: [facility] 09-01-2023 10:30-0400 Respiratory rate 18 /min Jason Quiroz MD Work Phone: [facility] 09-01-2023 10:30-0400 SaO2% (BldA) [Mass fraction] 97 % Jason Quiroz MD Work Phone: [facility] 09-01-2023 10:30-0400 Systolic blood pressure 154 mm[Hg] Jason Quiroz MD Work Phone: [facility] 08-09-2023 10:29-0400 Body height 182.9 cm Myra Gallardo APRN.ROAD INSPECTOR Work Phone: [facility] 08-09-2023 10:29-0400 Body mass index (BMI) [Ratio] 23.98 kg/m2 Myra Gallardo APRN.ROAD INSPECTOR Work Phone: [facility] 08-09-2023 10:29-0400 Body temperature 97.9 [degF] Myra Gallardo PACKAGER AND STRAPPER.ROAD INSPECTOR Work Phone: [facility] 08-09-2023 10:290400 Body weight 80.2 kg Myra Gallardo PACKAGER AND STRAPPER.ROAD INSPECTOR Work Phone: [facility] 08-09-2023 10:29-0400 Diastolic blood pressure 62 mm[Hg] Myra Gallardo PACKAGER AND STRAPPER.ROAD INSPECTOR Work Phone: [facility] Comment on above: Patient states headache patient is drink ing water 08-09-2023 10:29-0400 Heart rate 55 /min Myra Gallardo PACKAGER AND STRAPPER.ROAD INSPECTOR Work Phone: [facility] 08-09-2023 10:29-0400 SaO2% (BldA) [Mass fraction] 97 % Myra Gallardo PACKAGER AND STRAPPER.ROAD INSPECTOR Work Phone: [facility] 08-09-2023 10:290400 Systolic blood pressure 111 mm[Hg] Myra Gallardo PACKAGER AND STRAPPER.ROAD INSPECTOR Work Phone: [facility] Comment on above: Patient states headache patient is drink ing water 07-16-2023 09:13-0400 Body height 182.9 cm Davis May MD Work Phone: [facility] 07-16-2023 09:13-0400 Body mass index (BMI) [Ratio] 24.28 kg/m2 Davis May MD Work Phone: [facility] 07-16-2023 09:13-0400 Body weight 81.19 kg Davis May MD Work Phone: [facility] 07-16-2023 09:13-0400 Diastolic blood pressure 64 mm[Hg] Davis May MD Work Phone: [facility] 07-16-2023 09:13-0400 Heart rate 55 /min Davis May MD Work Phone: [facility] 07-16-2023 09:13-0400 SaO2% (BldA) [Mass fraction] 98 % Davis May MD Work Phone: [facility] 07-16-2023 09:13-0400 Systolic blood pressure 116 mm[Hg] Davis May MD Work Phone: [facility] 07-09-2023 11:04-0400 Body mass index (BMI) [Ratio] 23.86 kg/m2 Liseth Mazzoni DO Work Phone: [facility] 07-09-2023 11:04-0400 Body temperature 97.9 [degF] Liseth Mazzoni DO Work Phone: [facility] 07-09-2023 11:04-0400 Body weight 79.8 kg Liseth Mazzoni DO Work Phone: [facility] 07-09-2023 11:04-0400 Diastolic blood pressure 68 mm[Hg] Liseth Mazzoni DO Work Phone: [facility] 07-09-2023 11:04-0400 Heart rate 57 /min Liseth Mazzoni DO Work Phone: [facility] 07-09-2023 11:04-0400 Respiratory rate 19 /min Liseth Mazzoni DO Work Phone: [facility] 07-09-2023 11:04-0400 SaO2% (BldA) [Mass fraction] 98 % Liseth Mazzoni DO Work Phone: [facility] 07-09-2023 11:04-0400 Systolic blood pressure 124 mm[Hg] Liseth Mazzoni DO Work Phone: [facility] 07-06-2023 10:10-0400 Diastolic blood pressure 81 mm[Hg] Derrek Bear MD Work Phone: [facility] 07-06-2023 10:10-0400 Heart rate 55 /min Derrek Bear MD Work Phone: [facility] 07-06-2023 10:10-0400 Respiratory rate 16 /min Derrek Bear MD Work Phone: [facility] 07-06-2023 10:10-0400 SaO2% (BldA) [Mass fraction] 94 % Derrek Bear MD Work Phone: [facility] 07-06-2023 10:10-0400 Systolic blood pressure 129 mm[Hg] Derrek Bear MD Work Phone: [facility] 07-06-2023 09:29-0400 Body height 182.9 cm Derrek Bear MD Work Phone: [facility] 07-06-2023 09:29-0400 Body temperature 97.9 [degF] Derrek Bear MD Work Phone: [facility] 07-06-2023 09:29-0400 Body weight 79.38 kg Derrek Bear MD Work Phone: [facility] 07-02-2023 14:33-0400 Body temperature 97.7 [degF] Treatment Wstr Work Phone: [facility] 07-02-2023 14:33-0400 Diastolic blood pressure 81 mm[Hg] Treatment Wstr Work Phone: [facility] 07-02-2023 14:33-0400 Heart rate 60 /min Treatment Wstr Work Phone: [facility] 07-02-2023 14:33-0400 SaO2% (BldA) [Mass fraction] 98 % Treatment Wstr Work Phone: [facility] 07-02-2023 14:33-0400 Systolic blood pressure 157 mm[Hg] Treatment Wstr Work Phone: [facility] 06-30-2023 14:09-0400 Body temperature 97.39 [degF] Treatment Wstr Work Phone: [facility] 06-30-2023 14:09-0400 Diastolic blood pressure 73 mm[Hg] Treatment Wstr Work Phone: [facility] 06-30-2023 14:09-0400 Heart rate 57 /min Treatment Wstr Work Phone: [facility] 06-30-2023 14:09-0400 SaO2% (BldA) [Mass fraction] 99 % Treatment Wstr Work Phone: [facility] 06-30-2023 14:09-0400 Systolic blood pressure 139 mm[Hg] Treatment Wstr Work Phone: [facility] 06-28-2023 09:11-0400 Body temperature 99 [degF] Treatment Wstr Work Phone: [facility] 06-28-2023 09:11-0400 Diastolic blood pressure 76 mm[Hg] Treatment Wstr Work Phone: [facility] 06-28-2023 09:11-0400 Heart rate 57 /min Treatment Wstr Work Phone: [facility] 06-28-2023 09:11-0400 Respiratory rate 18 /min Treatment Wstr Work Phone: [facility] 06-28-2023 09:11-0400 Systolic blood pressure 128 mm[Hg] Treatment Wstr Work Phone: [facility] 06-25-2023 14:56-0400 Body temperature 97.81 [degF] Treatment Wstr Work Phone: [facility] 06-25-2023 14:56-0400 Diastolic blood pressure 73 mm[Hg] Treatment Wstr Work Phone: [facility] 06-25-2023 14:56-0400 Heart rate 57 /min Treatment Wstr Work Phone: [facility] 06-25-2023 14:56-0400 Respiratory rate 16 /min Treatment Wstr Work Phone: [facility] 06-25-2023 14:56-0400 Systolic blood pressure 130 mm[Hg] Treatment Wstr Work Phone: [facility] 06-23-2023 11:00-0400 Body temperature 98.01 [degF] Treatment Wstr Work Phone: [facility] 06-23-2023 11:00-0400 Diastolic blood pressure 86 mm[Hg] Treatment Wstr Work Phone: [facility] 06-23-2023 11:00-0400 Heart rate 58 /min Treatment Wstr Work Phone: [facility] 06-23-2023 11:00-0400 Respiratory rate 16 /min Treatment Wstr Work Phone: [facility] 06-23-2023 11:00-0400 SaO2% (BldA) [Mass fraction] 99 % Treatment Wstr Work Phone: [facility] 06-23-2023 11:00-0400 Systolic blood pressure 156 mm[Hg] Treatment Wstr Work Phone: [facility] 06-18-2023 10:42-0400 Body height 180.3 cm Lashonda Aleman Work Phone: [facility] 06-18-2023 10:42-0400 Body temperature 98.6 [degF] Lashonda Aleman Work Phone: [facility] 06-18-2023 10:42-0400 Body weight 83.92 kg Lashonda Aleman Work Phone: [facility] 06-18-2023 10:42-0400 Diastolic blood pressure 76 mm[Hg] Lashonda Aleman Work Phone: [facility] 06-18-2023 10:42-0400 Heart rate 64 /min Lashonda Aleman Work Phone: [facility] 06-18-2023 10:42-0400 SaO2% (BldA) [Mass fraction] 97 % Lashonda Aleman Work Phone: [facility] 06-18-2023 10:42-0400 Systolic blood pressure 116 mm[Hg] Lashonda Aleman Work Phone: [facility] 06-15-2023 12:28-0400 Body height 182.9 cm Derrek Bear MD Work Phone: [facility] 06-15-2023 12:28-0400 Body temperature 97.59 [degF] Derrek Bear MD Work Phone: [facility] 06-15-2023 12:28-0400 Body weight 83.8 kg Derrek Bear MD Work Phone: [facility] 06-15-2023 12:28-0400 Diastolic blood pressure 68 mm[Hg] Derrek Bear MD Work Phone: [facility] 06-15-2023 12:28-0400 Heart rate 60 /min Derrek Bear MD Work Phone: [facility] 06-15-2023 12:28-0400 SaO2% (BldA) [Mass fraction] 97 % Derrek Bear MD Work Phone: [facility] 06-15-2023 12:28-0400 Systolic blood pressure 142 mm[Hg] Derrek Bear MD Work Phone: [facility] 03-29-2023 13:40-0500 Body height 182.[address] Esteban Renee Work Phone: [facility] 03-29-2023 13:40-0500 Body weight 78.[address] Esteban Renee Work Phone: [facility] 03-29-2023 13:05-0500 Body temperature 98.6 [degF] Dr. Esteban Renee Work Phone: [facility] 03-29-2023 13:05-0500 Diastolic blood pressure 67 mm[Hg] Dr. Esteban Renee Work Phone: [facility] 03-29-2023 13:05-0500 Heart rate 61 /min Dr. Esteban Renee Work Phone: [facility] 03-29-2023 13:05-0500 Respiratory rate 14 /min Dr. Esteban Renee Work Phone: [facility] 03-29-2023 13:05-0500 SaO2% (BldA) [Mass fraction] 99 % Dr. Esteban Renee Work Phone: [facility] 03-29-2023 13:05-0500 Systolic blood pressure 125 mm[Hg] Dr. Esteban Renee Work Phone: [facility] 03-29-2023 06:00-0500 Body mass index (BMI) [Ratio] 23.4 kg/m2 Dr. Esteban Renee Work Phone: [facility] 03-26-2023 23:31-0500 Diastolic blood pressure 79 mm[Hg] [facility] 03-26-2023 23:31-0500 Heart rate 79 /min [facility] 03-26-2023 23:31-0500 Respiratory rate 18 /min [facility] 03-26-2023 23:31-0500 SaO2% (BldA) [Mass fraction] 97 % [facility] 03-26-2023 23:31-0500 Systolic blood pressure 136 mm[Hg] [facility] 03-26-2023 18:42-0500 Body height 182.[address] [facility] 03-26-2023 18:42-0500 Body mass index (BMI) [Ratio] 25 kg/m2 [facility] 03-26-2023 18:42-0500 Body temperature 97.2 [degF] [facility] 03-26-2023 18:42-0500 Body weight 83.[address] [facility] 03-04-2023 09:45-0500 Body temperature 98.1 [degF] Nurse [facility] Work Phone: [facility] 03-04-2023 09:45-0500 Diastolic blood pressure 79 mm[Hg] Nurse [facility] Work Phone: [facility] 03-04-2023 09:45-0500 Heart rate 55 /min Nurse [facility] Work Phone: [facility] 03-04-2023 09:45-0500 Respiratory rate 18 /min Nurse [facility] Work Phone: [facility] 03-04-2023 09:45-0500 SaO2% (BldA) [Mass fraction] 96 % Nurse [facility] Work Phone: [facility] 03-04-2023 09:45-0500 Systolic blood pressure 137 mm[Hg] Nurse [facility] Work Phone: [facility] 02-08-2023 14:47-0500 Body height 182.9 cm Myra Gallardo PACKAGER AND STRAPPER.ROAD INSPECTOR Work Phone: [facility] 02-08-2023 14:47-0500 Body temperature 98.71 [degF] Myra Gallardo PACKAGER AND STRAPPER.ROAD INSPECTOR Work Phone: [facility] 02-08-2023 14:47-0500 Body weight 84.46 kg Myra Gallardo PACKAGER AND STRAPPER.ROAD INSPECTOR Work Phone: [facility] 02-08-2023 14:47-0500 Diastolic blood pressure 80 mm[Hg] Myra Gallardo PACKAGER AND STRAPPER.ROAD INSPECTOR Work Phone: [facility] 02-08-2023 14:47-0500 Heart rate 57 /min Myra Gallardo PACKAGER AND STRAPPER.ROAD INSPECTOR Work Phone: [facility] 02-08-2023 14:47-0500 SaO2% (BldA) [Mass fraction] 97 % Myra Gallardo PACKAGER AND STRAPPER.ROAD INSPECTOR Work Phone: [facility] 02-08-2023 14:47-0500 Systolic blood pressure 144 mm[Hg] Myra Gallardo PACKAGER AND STRAPPER.ROAD INSPECTOR Work Phone: [facility] 09-30-2022 14:01-0400 Body weight 83.92 kg Evelin Reich PACKAGER AND STRAPPER.ROAD INSPECTOR Work Phone: [facility] 09-23-2022 12:39-0400 Body height 182.9 cm Derrek Bear MD Work Phone: [facility] 09-23-2022 12:39-0400 Body temperature 98.4 [degF] Derrek Bear MD Work Phone: [facility] 09-23-2022 12:39-0400 Body weight 85.28 kg Derrek Bear MD Work Phone: [facility] 09-23-2022 12:39-0400 Diastolic blood pressure 80 mm[Hg] Derrek Bear MD Work Phone: [facility] 09-23-2022 12:39-0400 Heart rate 60 /min Derrek Bear MD Work Phone: [facility] 09-23-2022 12:39-0400 SaO2% (BldA) [Mass fraction] 96 % Derrek Bear MD Work Phone: [facility] 09-23-2022 12:39-0400 Systolic blood pressure 133 mm[Hg] Derrek Bear MD Work Phone: [facility] 07-13-2022 15:39-0400 Body weight 85.73 kg Bernadette Munguia MD Work Phone: [facility] 07-13-2022 15:39-0400 Diastolic blood pressure 90 mm[Hg] Bernadette Munguia MD Work Phone: [facility] 07-13-2022 15:39-0400 Heart rate 62 /min Bernadette Munguia MD Work Phone: [facility] 07-13-2022 15:39-0400 SaO2% (BldA) [Mass fraction] 98 % Bernadette Munguia MD Work Phone: [facility] 07-13-2022 15:39-0400 Systolic blood pressure 140 mm[Hg] Bernadette Munguia MD Work Phone: [facility] 04-20-2022 10:01-0500 Body weight 84.82 kg Davis May MD Work Phone: [facility] 04-20-2022 10:01-0500 Diastolic blood pressure 88 mm[Hg] Davis May MD Work Phone: [facility] 04-20-2022 10:01-0500 Heart rate 54 /min Davis May MD Work Phone: [facility] 04-20-2022 10:01-0500 SaO2% (BldA) [Mass fraction] 97 % Davis May MD Work Phone: [facility] 04-20-2022 10:01-0500 Systolic blood pressure 147 mm[Hg] Davis May MD Work Phone: [facility] 12-22-2021 15:21-0400 Body height 182.9 cm Davis May MD Work Phone: [facility] 12-22-2021 15:21-0400 Body weight 84.73 kg Davis May MD Work Phone: [facility] 12-22-2021 15:21-0400 Diastolic blood pressure 92 mm[Hg] Davis May MD Work Phone: [facility] 12-22-2021 15:21-0400 Heart rate 53 /min Davis May MD Work Phone: [facility] 12-22-2021 15:21-0400 SaO2% (BldA) [Mass fraction] 98 % Davis May MD Work Phone: [facility] 12-22-2021 15:21-0400 Systolic blood pressure 160 mm[Hg] Davis May MD Work Phone: [facility] 10-20-2021 13:01-0400 Body height 182.9 cm Bernadette Munguia MD Work Phone: [facility] 10-20-2021 13:01-0400 Body weight 84.37 kg Bernadette Munguia MD Work Phone: [facility] 10-20-2021 13:01-0400 Diastolic blood pressure 80 mm[Hg] Bernadette Munguia MD Work Phone: [facility] 10-20-2021 13:01-0400 Heart rate 50 /min Bernadette Munguia MD Work Phone: [facility] 10-20-2021 13:01-0400 SaO2% (BldA) [Mass fraction] 97 % Bernadette Munguia MD Work Phone: [facility] 10-20-2021 13:01-0400 Systolic blood pressure 126 mm[Hg] Bernadette Munguia MD Work Phone: [facility] 10-16-2021 11:07-0400 Body weight 83.01 kg Davis May MD Work Phone: [facility] 10-16-2021 11:07-0400 Diastolic blood pressure 78 mm[Hg] Davis May MD Work Phone: [facility] 10-16-2021 11:07-0400 Heart rate 59 /min Davis May MD Work Phone: [facility] 10-16-2021 11:07-0400 SaO2% (BldA) [Mass fraction] 99 % Davis May MD Work Phone: [facility] 10-16-2021 11:07-0400 Systolic blood pressure 136 mm[Hg] Davis May MD Work Phone: [facility] Encounters Encounter Date Encounter Type Care Provider Facility Start: 01-29-2025 End: 01-29-2025 ambulatory KARINA DIAZ Facility:[facility] Start: 01-25-2025 End: 01-25-2025 ambulatory ANGELINE PFEIFFER Facility:[facility] Start: 01-22-2025 ambulatory JAMES cifuentesy:[facility] Start: 01-22-2025 End: 01-22-2025 ambulatory LISETH ORTIZ Facility:[facility] Start: 01-16-2025 End: 01-16-2025 ambulatory PRABHU TYLER Facility:[facility] Start: 01-10-2025 End: 01-10-2025 ambulatory DAVIS MAY Facility:[facility] Start: 01-05-2025 End: 01-05-2025 Emergency department patient visit Davis May Facility:[facility] Start: 12-15-2024 End: 12-15-2024 ambulatory NATHAN RUTH Facility:[facility] Start: 12-12-2024 End: 12-12-2024 ambulatory ANJALI FONG Facility:[facility] Start: 12-11-2024 End: 12-11-2024 ambulatory KELLEY FREGOSO Facility:[facility] Start: 11-28-2024 End: 11-28-2024 ambulatory PRABHU Amin TYLER Facility:[facility] Start: 11-27-2024 End: 11-27-2024 ambulatory Evelin Reich PACKAGER AND STRAPPER.ROAD INSPECTOR Work Phone: Endocrinology Comment on above: sensors Start: 11-27-2024 Patient encounter procedure OBDULIA MARTÍNEZ [facility] Start: 11-24-2024 End: 11-27-2024 ambulatory Evelin Reich PACKAGER AND STRAPPER.ROAD INSPECTOR Work Phone: Endocrinology Comment on above: my Rx Start: 11-21-2024 End: 11-21-2024 Patient encounter procedure Elly Quintero Research Coordinator [facility] Start: 11-21-2024 End: 11-21-2024 Telephone encounter Elly Quintero Research Coordinator Clinical Research Start: 11-19-2024 End: 11-21-2024 ambulatory Marcos Farrell PA-C Work Phone: Dermatology Start: 11-19-2024 End: 11-21-2024 Patient encounter procedure Marcos Farrell PA-C Work Phone: Dermatology Comment on above: date of next appoint ment not in mychart Start: 11-14-2024 End: 11-14-2024 ambulatory LISETH ORTIZ Facility:[facility] Start: 11-13-2024 End: 11-13-2024 Patient encounter procedure Jose Landry MD Work Phone: Vascular Medicine Comment on above: Superior mesenteric vein thrombosis (HCC) (Primary Dx); Portal vein thrombosis; Anticoagulation management encounter; Autoimmune hepatitis (HCC); Other cirrhosis of liver (HCC) Start: 11-13-2024 End: 11-13-2024 ambulatory JOSE LANDRY Facility:[facility] Start: 11-11-2024 End: 11-13-2024 ambulatory Anjali Fong PACKAGER AND STRAPPER.ROAD INSPECTOR Work Phone: Pain Management Comment on above: my visit with you on November 02 Start: 11-09-2024 End: 11-10-2024 Refill Sanna Larsen PACKAGER AND STRAPPER.ROAD INSPECTOR Work Phone: [facility] Comment on above: Refill Request Start: 11-07-2024 ambulatory JOSEBAM LANDRY Facilit y:[facility] Start: 11-07-2024 End: 11-07-2024 Subsequent hospital visit by physician Margaret [facility] Robyn (I-Stat) Work Phone: Radiology Comment on above: Portal vein thrombos is [I81] Start: 11-06-2024 End: 11-06-2024 ambulatory LISETH ORTIZ Facility:[facility] Start: 11-03-2024 End: 11-03-2024 ambulatory Obdulia Martínez NP Facility:[facility] Start: 11-03-2024 End: 11-03-2024 Discharged Recurring Obdulia Martínez UROLOGIST PHYSICIAN-C -Physical Therapy Work Phone: Start: 11-02-2024 End: 11-03-2024 Telephone encounter Prabhu Tyler MD Work Phone: Pain Management Comment on above: Cardiac Clearance (A nticoagulation ) Cervical spondylosis (Primary Dx); Cervical facet joint syndrome Start: 11-02-2024 End: 11-02-2024 Patient encounter procedure Anjali Fong PACKAGER AND STRAPPER.ROAD INSPECTOR Work Phone: Pain Management Comment on above: Cervical spondylosis (Primary Dx); Cervical facet joint syndrome Start: 11-02-2024 End: 11-02-2024 ambulatory ANJALI FONG Facility:[facility] Start: 10-26-2024 End: 10-26-2024 ambulatory LISETH ORTIZ Facility:[facility] Start: 10-13-2024 End: 10-13-2024 Patient encounter procedure Liseth Irmani DO Work Phone: Hematology/Oncology Start: 10-13-2024 End: 10-14-2024 ambulatory Liseth Irmani DO Work Phone: Hematology/Oncology Comment on above: [...] I had my CT Start: 10-06-2024 ambulatory [facility] Facility :[facility] Start: 10-06-2024 End: 10-06-2024 Subsequent hospital visit by physician Ct [facility] Wstr (I-Stat) Work Phone: Cat Scan Comment on above: Spinal stenosis of c ervical region [M48.02] Start: 10-05-2024 End: 12-05-2024 Follow-up encounter Gretta Bowles APRN.ROAD INSPECTOR Work Phone: Kidney Medicine Start: 10-05-2024 End: 10-05-2024 ambulatory NATHAN RUTH Facility:[facility] Start: 10-04-2024 End: 10-04-2024 Patient encounter procedure Prabhu Tyler MD Work Phone: Pain Management Comment on above: Cervical spondylosis (Primary Dx); Neck pain Start: 10-04-2024 End: 10-04-2024 ambulatory PRABHU TYLER Facility:[facility] Start: 10-03-2024 End: 10-03-2024 E-mail encounter from caregiver [facility] Provider Pain Management Start: 10-03-2024 End: 10-03-2024 Patient encounter procedure [facility] Provider Pain Management Comment on above: Instructions & Requi rements for Your Upcoming Appointment Start: 10-03-2024 End: 10-03-2024 Office outpatient visit 15 minutes Obdulia Martínez APRN.ROAD INSPECTOR Work Phone: [facility] [place] Comment on above: Neck pain (Primary D x); Spinal stenosis of cervical region; Acute pain of left knee Start: 10-03-2024 End: 10-03-2024 ambulatory OBDULIA [facility] Facility:[facility] Start: 09-29-2024 End: 09-29-2024 ambulatory Davis May MD Work Phone: [facility] [place] Comment on above: tetanus shot Start: 09-29-2024 End: 11-29-2024 Follow-up encounter Nathan Ruth MD Work Phone: Kidney Medicine Start: 09-26-2024 End: 09-26-2024 ambulatory NATHAN RUTH Facility:[facility] Start: 09-18-2024 End: 09-20-2024 Refill Josefa Ladd MD Work Phone: Gastroenterology Comment on above: Refill Request Start: 09-04-2024 End: 09-04-2024 ambulatory Dimple Payne RN Work Phone: [employer] Comment on above: ACM MISHEL RN ( [facility]) Start: 09-04-2024 End: 09-04-2024 Patient encounter procedure Grady Riki [facility] Comment on above: Patient Update ([facility]- Pharmacy Consult- denial ) Start: 09-02-2024 End: 11-02-2024 Refill Evelin Reich PACKAGER AND STRAPPER.ROAD INSPECTOR Work Phone: Endocrinology Comment on above: Refill Request travel and medicatio ns Start: 09-01-2024 End: 09-01-2024 ambulatory STEVAN W KULDEEPGILMAR Facility:[facility] Start: 08-31-2024 End: 08-31-2024 Refill Davis May MD Work Phone: [facility] [place] Comment on above: Refill Request ACM MISHEL RN ( [facility]) Start: 08-29-2024 End: 08-29-[address] Davis May MD Work Phone: -Physical Therapy Start: 08-29-2024 End: 08-29-2024 Discharged Recurring Obdulia Martínez UROLOGIST PHYSICIAN-C -Physical Therapy Work Phone: Start: 08-18-2024 End: 08-18-2024 ambulatory Jaycee Ochoa RN Hematology/Oncology Comment on above: Doptelet Start: 08-18-2024 End: 08-18-2024 E-mail encounter from caregiver Jaycee Ochoa RN Hematology/Oncology Start: 08-15-2024 End: 10-15-2024 Follow-up encounter Obdulia Martínez APRN.CNP Work Phone: [facility] Start: 08-10-2024 End: 08-10-2024 ambulatory ANDRELEE CHAS JO Facility:[facility] Start: 08-09-2024 End: 08-09-2024 ambulatory OBDULIA MARTÍNEZ Facility:[facility] Start: 08-07-2024 End: 08-07-2024 ambulatory JOSE LANDRY Facility:[facility] Start: 08-07-2024 End: 08-07-2024 Patient encounter [...] Work Phone: Start: 08-02-2024 End: 08-02-2024 ambulatory LISETH ORTIZ Facility:[facility] Start: 08-01-2024 End: 08-01-2024 Orders Only Liseth Ortiz DO Work Phone: Hematology/Oncology Comment on above: 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); Thrombocytopenia Start: 07-25-2024 End: 07-25-2024 ambulatory Jaycee Ochoa RN Hematology/Oncology Comment on above: forms Start: 07-25-2024 End: 07-25-2024 E-mail encounter from caregiver Jaycee Ochoa RN Hematology/Oncology Start: 07-25-2024 End: 07-25-2024 Telephone encounter Jaycee Ochoa RN Hematology/Oncology Comment on above: Custodian Supervisor - O ther Start: 07-24-2024 End: 07-24-2024 Telephone encounter Jaycee Ochoa RN Hematology/Oncology Comment on above: Custodian Supervisor - O ther Start: 07-24-2024 End: 07-24-2024 Patient encounter procedure Davis May MD Work Phone: [facility] Comment on above: S/P ICD (internal ca [...] Start: 07-24-2024 End: 07-24-2024 ambulatory Riddhi Brower RN [employer] Comment on above: Bi-Weekly Outreach ( Recurring) for Chronic Disease Management Start: 07-20-2024 End: 07-20-2024 Patient encounter procedure Marcos Farrell PA-C Work Phone: Dermatology Comment on above: Actinic keratosis (P rimary Dx); Telangiectasia; Pruritus Start: 07-20-2024 End: 07-20-2024 ambulatory MARCOS FARRELL Facility:[facility] Start: 07-14-2024 End: 07-14-2024 ambulatory LISETH ORTIZ Facility:[facility] Start: 07-14-2024 End: 07-15-2024 Patient encounter [...] 07-05-2024 End: 07-05-2024 Patient encounter procedure Evelin C Cioce PACKAGER AND STRAPPER.ROAD INSPECTOR Work Phone: Endocrinology Comment on above: Controlled type 2 di abetes mellitus without complication, unspecified whether fdc insulin use (HCC) (Primary Dx) Start: 07-05-2024 End: 07-05-2024 ambulatory EVELIN C CIOCE Facility:[facility] Start: 07-04-2024 End: 07-04-2024 ambulatory LISETH ORTIZ Facility:[facility] Start: 06-29-2024 End: 06-30-2024 ambulatory Davis May MD Work Phone: [facility] [place] Comment on above: pantoprazole Start: 06-25-2024 End: 06-26-2024 Refill Stevan Thomas MD Work Phone: Gastroenterology Comment on above: Refill Request Start: 06-16-2024 End: 06-20-2024 Refill Evelin C Cioce PACKAGER AND STRAPPER.ROAD INSPECTOR Work Phone: Endocrinology Comment on above: Refill Request Start: 06-12-2024 End: 06-12-2024 ambulatory BERNADETTE MUNGUIA Facility:[facility] Start: 06-12-2024 End: 06-12-2024 Patient encounter procedure Bernadette Munguia MD Work Phone: Cardiology Comment on above: Hypertrophic obstruc tive cardiomyopathy (HOCM) (HCC) (Primary Dx); Primary hypertension; Hyperlipidemia LDL goal <100; Venous insufficiency; S/P ICD (internal cardiac defibrillator) procedure Start: 06-09-2024 End: 06-12-2024 Refill Davis May MD Work Phone: [facility] [place] Comment on above: Refill Request Start: 06-06-2024 End: 08-06-2024 Follow-up encounter Nova Shahid MD Work Phone: Cardiology Start: 06-06-2024 End: 06-09-2024 ambulatory Davis May MD Work Phone: [facility] [place] Comment on above: Problem with Rx Start: 06-06-2024 End: 06-07-2024 Patient encounter procedure Stress Echo Lab [facility] Will Work Phone: Cardiology Comment on above: Other hypertrophic c ardiomyopathy (HCC) Refill Request Start: 06-05-2024 End: 06-05-2024 ambulatory NATHAN YUSRA Facility:[facility] Start: 06-01-2024 End: 06-02-2024 Refill Rui Mendez MD Work Phone: [facility] [id number] Comment on above: Refill Request Start: 05-31-2024 End: 05-31-2024 ambulatory Riddhi Brower RN [employer] Comment on above: Initial enrollment o aileen for Chronic Disease Management Start: 05-30-2024 End: 05-30-2024 Office outpatient visit 15 minutes Sanna Larsen APRN.ROAD INSPECTOR Work Phone: [facility] [place] Comment on above: Acute non-recurrent sinusitis, unspecified location (Primary Dx); Acute bronchitis, unspecified organism Start: 05-30-2024 End: 05-31-2024 Refill Stevan Thomas MD Work Phone: Gastroenterology Comment on above: Refill Request Start: 05-29-2024 End: 05-29-2024 Chart abstracting Aide Wu Research Coordinator Clinical Research Start: 05-29-2024 End: 05-29-2024 Telephone encounter Davis May MD Work Phone: [facility] [place] Comment on above: sinus congestion; Ch est Congestion; Cough Start: 05-24-2024 End: 05-24-2024 ambulatory Riddhi Brower RN [employer] Comment on above: Started Initial enro llment outreach for Chronic Disease Management Start: 05-21-2024 End: 05-22-2024 Refill Stevan Thomas MD Work Phone: Gastroenterology Comment on above: Refill Request Start: 05-19-2024 End: 05-19-2024 Nursing evaluation of patient and report Nurse [facility] Work Phone: Clinical Research Comment on above: Examination of parti cipant in clinical trial (Primary Dx) Start: 05-19-2024 End: 05-19-2024 Patient encounter procedure Nurse [facility] Work Phone: [facility] Start: 05-19-2024 End: 05-19-2024 ambulatory SELF Facility:[facility] Start: 05-18-2024 End: 07-18-2024 Follow-up encounter Nathan Ruth MD Work Phone: Kidney Medicine Start: 05-18-2024 End: 05-18-2024 Telephone encounter Aide Wu Research Coordinator Clinical Research Comment on above: Research F/U Start: 05-18-2024 End: 05-18-2024 ambulatory NATHAN RUTH Facility:[facility] Start: 05-17-2024 End: 05-17-2024 ambulatory Nathan Ruth MD Work Phone: Kidney Medicine Comment on above: lisinopril Start: 05-15-2024 End: 05-15-2024 Refill Stevan Thomas MD Work Phone: Gastroenterology Comment on above: Refill Request Start: 05-12-2024 End: 05-12-2024 Patient encounter procedure Davis May MD Work Phone: [facility] Comment on above: Portal vein thrombos is (Primary Dx); Poorly controlled type 2 diabetes mellitus (HCC); Thrombocytopenia (HCC); Type 2 diabetes mellitus with diabetic neuropathy, unspecified whether watermaster insulin use (HCC); Cirrhosis of liver without [...] Kidney Medicine Start: 05-11-2024 End: 05-11-2024 ambulatory MARCOS FARRELL Facility:[facility] Start: 05-11-2024 End: 05-11-2024 Patient encounter procedure Marcos Farrell PA-C Work Phone: Dermatology Comment on above: Actinic keratosis (P rimary Dx) Start: 05-10-2024 End: 05-10-2024 ambulatory JOSE LANDRY Facility:[facility] Start: 05-10-2024 End: 05-10-2024 Patient encounter procedure Jose Landry MD Work Phone: Vascular Medicine Comment on above: Autoimmune hepatitis (HCC) (Primary Dx); Portal vein thrombosis; Anticoagulation management encounter; Other cirrhosis of liver (HCC) Start: 05-09-2024 End: 05-09-2024 Telephone encounter Nathan Ruth MD Work Phone: Kidney Medicine Start: 05-08-2024 End: 05-08-2024 ambulatory Evelin Reich APRN.ROAD INSPECTOR Work Phone: Endocrinology Comment on above: blood sugar sensors Other hypertrophic c ardiomyopathy (HCC) (Primary Dx) Start: 05-01-2024 End: 07-01-2024 Follow-up encounter Nathan Ruth MD Work Phone: Kidney Medicine Start: 04-29-2024 End: 05-01-2024 ambulatory Davis May MD Work Phone: [facility] Comment on above: blood sugar Start: 04-28-2024 End: 04-28-2024 ambulatory LISETH ORTIZ Facility:[facility] Start: 04-26-2024 End: 04-26-2024 ambulatory Stevan Thomas MD Work Phone: Gastroenterology Comment on above: Autoimmune hepatitis (HCC) (Primary Dx) Start: 04-26-2024 End: 04-26-2024 Telemedicine consultation with patient Stevan Thomas MD Work Phone: Gastroenterology Start: 04-24-2024 End: 04-24-2024 Patient encounter procedure Lora Thomas MD Work Phone: Urology Comment on above: Abnormal urinalysis (Primary Dx) Start: 04-24-2024 End: 04-24-2024 ambulatory LORA THOMAS Facility:[id number] Start: 04-21-2024 End: 04-26-2024 Get Medical Advice Davis May MD Work Phone: Family [facility] [place] Comment on above: trouble refilling el iquis Start: 04-19-2024 End: 04-19-2024 Telephone encounter Nathan Ruth MD Work Phone: Kidney Medicine Start: 04-18-2024 End: 04-18-2024 ambulatory Denae Coombs RN Work Phone: [employer] Start: 04-18-2024 End: 04-18-2024 Telephone follow-up Denae Coombs RN Work Phone: [employer] Comment on above: Transition Of Care ( /tcm d/c follow up - discussed triage recommendations ) Weekly phone contact (Recurring) for Transitional Care Management Start: 04-17-2024 End: 04-17-2024 Refill Stevan Thomas MD Work Phone: Gastroenterology Comment on above: Refill Request Start: 04-17-2024 End: 04-17-2024 ambulatory Nurse Intm/Famp Triage [facility] Work Phone: Nurse Phone Triage Comment on above: Gastrointestinal Ble ed Start: 04-16-2024 End: 04-17-2024 ambulatory Davis May MD Work Phone: [facility] [place] Comment on above: more blood additiona l places Start: 04-15-2024 End: 04-17-2024 Telephone encounter Davis May MD Work Phone: [facility] [place] Comment on above: Results Start: 04-14-2024 End: 04-14-[address] Davis May MD Work Phone: -Laboratory Work Phone: Start: 04-14-2024 End: 04-14-2024 ambulatory DAVIS MAY Facility:[facility] Start: 04-14-2024 End: 04-14-2024 Telephone encounter Davis May MD Work Phone: [facility] [place] Comment on above: Patient Update Start: 04-14-2024 End: 04-14-2024 Patient encounter procedure Davis May MD Work Phone: [facility] [place] Comment on above: Portal vein thrombos is (Primary Dx); Poorly controlled type 2 diabetes mellitus (HCC); Thrombocytopenia (HCC); Hypertrophic obstructive cardiomyopathy (HOCM) (HCC); Type 2 diabetes mellitus with diabetic neuropathy, unspecified whether watermaster insulin use (HCC); Cirrhosis of liver without ascites, unspecified hepatic cirrhosis type (HCC); Esophageal varices without bleeding, unspecified esophageal varices type (HCC); Controlled type 2 diabetes mellitus without complication, with long-term current use of insulin (HCC); Microscopic hematuria; URI, acute; Nausea Start: 04-14-2024 End: 04-14-2024 ambulatory DAVIS MAY Facility:[facility] Start: 04-13-2024 End: 04-17-2024 ambulatory Derrek Bear MD Work Phone: Gastroenterology Comment on above: blood in urine Start: 04-12-2024 End: 04-12-2024 ambulatory GLENDYANASTASIIA AYALA Facility:[facility] Start: 04-12-2024 End: 04-12-2024 Patient encounter [...] 04-11-2024 ambulatory Denae Coombs RN Work Phone: [employer] Start: 04-11-2024 End: 04-11-2024 Telephone follow-up Denae Coombs RN Work Phone: [employer] Comment on above: Transition Of Care ( /tcm d/c follow up ) Weekly phone contact (Recurring) for Transitional Care Management Start: 04-07-2024 End: 04-10-2024 Refill Derrek Bear MD Work Phone: Gastroenterology Comment on above: Refill Request Start: 04-04-2024 End: 04-04-2024 Patient Outreach Denae Coombs RN Work Phone: [employer] Comment on above: Transition Of Care ( /tcm d/c 03/31/24) Initial phone contact for Transitional Care Management Start: 2024 End: 2024 Telephone encounter Samy Duffy Clinical Research Comment on above: Research F/U Start: 03-30-2024 End: 03-30-2024 Evaluation and management of inpatient BEVERLY DIAZ Facility:[facility] Start: 03-29-2024 End: 03-31-2024 Evaluation and management of inpatient DAVIS MAY Facility:[facility] Start: 03-29-2024 End: 03-29-2024 Telephone encounter Stevan Thomas MD Work Phone: Gastroenterology Comment on above: Patient Update Start: 03-29-2024 End: 03-29-2024 ambulatory DERREK BEAR Facility:[facility] Start: 03-29-2024 End: 03-29-2024 Subsequent hospital visit by physician Ct 2 Main Qb (I-Stat) Radiology Comment on above: Liver disease [K76.9 ] Start: 03-28-2024 End: 03-30-2024 Refill Stevan Thomas MD Work Phone: Gastroenterology Comment on above: Refill Request Start: 03-25-2024 End: 03-27-2024 ambulatory Davis May MD Work Phone: [facility] [place] Comment on above: my ICD + EVs Start: 03-23-2024 End: 03-23-2024 ambulatory LISETH MAZBHAKTIVASQUEZ Facility:[facility] Start: 03-19-2024 End: 03-23-2024 Refill Stevan Thomas MD Work Phone: Gastroenterology Comment on above: Refill Request Start: 02-19-2024 End: 02-21-2024 Refill Mirza Harry PA-C Work Phone: Gastroenterology Comment on above: Refill Request Start: 02-14-2024 End: 02-14-2024 Patient encounter procedure Bobby Owusu PA-C Work Phone: Orthopaedics Comment on above: Left knee pain, unsp ecified chronicity Start: 02-14-2024 End: 02-14-2024 ambulatory BOBBY OWUSU Facility:[facility] Start: 02-14-2024 End: 02-14-2024 Subsequent hospital visit by physician Xr [facility] Work Phone: Radiology Comment on above: Left knee pain, unsp ecified chronicity [M25.562] Start: 02-11-2024 End: 02-14-2024 Refill Davis May MD Work Phone: [facility] [place] Comment on above: Refill Request Start: 02-03-2024 End: 02-04-2024 ambulatory Sury Mathias APRN.ROAD INSPECTOR Work Phone: Dermatology Comment on above: confirm how to mary ly toxic face cream Start: 01-24-2024 End: 01-24-2024 Patient encounter procedure Angeline Pfeiffer OD Work Phone: Ophthalmology Comment on above: Type 2 diabetes sundar itus without retinopathy (HCC) (Primary Dx); Combined forms of age-related cataract of both eyes; Myopia, bilateral; Presbyopia; Drusen of left optic disc Start: 01-21-2024 End: 01-21-2024 Patient encounter procedure Sury Mathias APRN.ROAD INSPECTOR Work Phone: Dermatology Comment on above: AK (actinic keratosi s) (Primary Dx) Start: 01-20-2024 End: 01-20-2024 ambulatory Sury Mathias APRN.ROAD INSPECTOR Work Phone: Dermatology Comment on above: appt tomorrow, 01/20 Start: 01-18-2024 End: 01-18-2024 Patient encounter procedure Davis May MD Work Phone: [facility] [place] Comment on above: Hypertrophic obstruc tive cardiomyopathy (HOCM) (HCC) (Primary Dx); Primary hypertension; Hyperlipidemia LDL goal <100; S/P ICD (internal cardiac defibrillator) procedure; Hepatic cirrhosis, unspecified hepatic cirrhosis type, unspecified whether ascites present (HCC); Portal vein thrombosis; Controlled type 2 diabetes mellitus without complication, unspecified whether watermaster insulin use (HCC); Thrombocytopenia (HCC); Iron deficiency anemia due to chronic blood loss Start: 01-01-2024 End: 01-03-2024 ambulatory Davis May MD Work Phone: [facility] [place] Comment on above: blood tests Start: 12-29-2023 End: 12-29-2023 Orders Only Mirza Harry PA-C Work Phone: Gastroenterology Start: 12-28-2023 End: 12-29-2023 Refill Evelin C Cioce PACKAGER AND STRAPPER.ROAD INSPECTOR Work Phone: Endocrinology Comment on above: Refill Request Start: 12-20-2023 End: 12-21-2023 Refill Davis May MD Work Phone: [facility] Comment on above: Refill Request Start: 12-15-2023 End: 12-15-2023 Refill Derrek Bear MD Work Phone: Gastroenterology Comment on above: Refill Request Start: 12-13-2023 End: 12-13-2023 Refill Evelin C Cioce PACKAGER AND STRAPPER.ROAD INSPECTOR Work Phone: Endocrinology Comment on above: Refill Request Start: 12-02-2023 End: 12-02-2023 ambulatory Jason Quiroz MD Work Phone: Hematology/Oncology Comment on above: Iron deficiency anem ia due to chronic blood loss (Primary Dx) Start: 12-02-2023 End: 12-02-2023 Patient encounter procedure Jason Quiroz MD Work Phone: Hematology/Oncology Start: 11-27-2023 End: 11-29-2023 Refill Davis May MD Work Phone: [facility] Comment on above: Refill Request Start: 11-11-2023 End: 11-11-2023 Refill Evelin C Cioce PACKAGER AND STRAPPER.ROAD INSPECTOR Work Phone: Endocrinology Comment on above: Refill Request Start: 10-20-2023 End: 10-20-2023 Patient encounter procedure Evelin C Cioce PACKAGER AND STRAPPER.ROAD INSPECTOR Work Phone: Endocrinology Comment on above: Controlled type 2 di abetes mellitus without complication, unspecified whether fdc insulin use (HCC) (Primary Dx) Start: 10-19-2023 End: 10-19-2023 Patient encounter procedure Sury Mathias PACKAGER AND STRAPPER.ROAD INSPECTOR Work Phone: Dermatology Comment on above: AK (actinic keratosi s) (Primary Dx) Start: 10-19-2023 Refill Derrek cottrell MD Work Phone: Gastroenterology Comment on above: Refill Request Start: 10-14-2023 ambulatory Evelin C Cioce PACKAGER AND STRAPPER.ROAD INSPECTOR Work Phone: Endocrinology Comment on above: Rx renewal problem Start: 10-14-2023 Telephone encounter Evelin C C ioce PACKAGER AND STRAPPER.ROAD INSPECTOR Work Phone: Endocrinology Comment on above: MSC Request for Docu mentation ([employer] Order Processing) Start: 10-04-2023 End: 10-04-2023 Patient encounter procedure Bernadette Munguia MD Work Phone: Cardiology Comment on above: Hypertrophic obstruc tive cardiomyopathy (HOCM) (HCC) (Primary Dx); Other chest pain; Primary hypertension; Hyperlipidemia LDL goal <100; Venous insufficiency; S/P ICD (internal cardiac defibrillator) procedure Start: 10-04-2023 Telephone encounter Evelin C C ioce PACKAGER AND STRAPPER.ROAD INSPECTOR Work Phone: Endocrinology Comment on above: Orders (MSC ) Start: 09-30-2023 Chart abstracting Char Orr (C oord) Clinical Research Start: 09-30-2023 Patient encounter procedure Char Orr (Coord) [facility] Start: 09-28-2023 End: 09-28-2023 ambulatory Hepatology [...] [D50.0] Start: 09-22-2023 Refill Evelin C Cioce PACKAGER AND STRAPPER.ROAD INSPECTOR Work Phone: Endocrinology Comment on above: Refill Request Start: 09-21-2023 Refill Evelin C Cioce PACKAGER AND STRAPPER.ROAD INSPECTOR Work Phone: Endocrinology Comment on above: Refill Request Start: 09-02-2023 End: 09-02-2023 Nursing evaluation of patient and report Nurse [facility] Work Phone: Clinical Research Comment on above: Examination of parti cipant in clinical trial (Primary Dx) Start: 09-02-2023 End: 09-02-2023 Patient encounter procedure Nurse [facility] Work Phone: [facility] Start: 09-01-2023 End: 09-01-2023 ambulatory Jason Quiroz MD Work Phone: Hematology/Oncology Comment on above: Iron deficiency anem ia due to chronic blood loss (Primary Dx); Thrombocytopenia (HCC) Start: 09-01-2023 End: 09-01-2023 Patient encounter procedure Jason Quiroz MD Work Phone: Hematology/Oncology Start: 08-28-2023 ambulatory Davis May MD Work Phone: [facility] Comment on above: unplanned ER/ICU on vacation Start: 08-25-2023 Refill Evelin C Cioce PACKAGER AND STRAPPER.ROAD INSPECTOR Work Phone: Endocrinology Comment on above: Refill Request Start: 08-16-2023 Refill Derrek cottrell MD Work Phone: Gastroenterology Comment on above: Refill Request Start: 08-09-2023 End: 08-09-2023 Patient encounter procedure Myra Gallardo PACKAGER AND STRAPPER.ROAD INSPECTOR Work Phone: Gastroenterology Comment on above: Autoimmune hepatitis (HCC) (Primary Dx) Start: 07-30-2023 Refill Evelin C Cioce PACKAGER AND STRAPPER.ROAD INSPECTOR Work Phone: Endocrinology Comment on above: Refill Request Start: 07-16-2023 End: 07-16-2023 Patient encounter procedure Davis May MD Work Phone: [facility] Comment on above: S/P ICD (internal ca rdiac defibrillator) procedure (Primary Dx); Hypertrophic obstructive cardiomyopathy (HOCM) (HCC); Hyperlipidemia LDL goal <100; Primary hypertension; Hepatic cirrhosis, unspecified hepatic cirrhosis type, unspecified whether ascites present (HCC); Portal vein thrombosis; Controlled type 2 diabetes mellitus without complication, unspecified whether watermaster insulin use (HCC); Thrombocytopenia (HCC); Iron deficiency [...] [R19.5] Start: 07-04-2023 Refill Evelin C Cioce PACKAGER AND STRAPPER.ROAD INSPECTOR Work Phone: Endocrinology Comment on above: Refill Request Start: 07-02-2023 End: 07-02-2023 ambulatory Treatment Rm 13 Breezy [facility] Work Phone: Hematology/Oncology Comment on above: Iron deficiency anem ia due to chronic blood loss (Primary Dx); Thrombocytopenia (HCC) Start: 06-30-2023 End: 06-30-2023 ambulatory Treatment Rm 13 Breezy [facility] Work Phone: Hematology/Oncology Comment on above: Iron deficiency anem ia due to chronic blood loss (Primary Dx); Thrombocytopenia (HCC) Refill Request Start: 06-28-2023 End: 06-28-2023 ambulatory Treatment Rm 9 Bree[place] [facility] Work Phone: Hematology/Oncology Comment on above: Iron deficiency anem ia due to chronic blood loss (Primary Dx); Thrombocytopenia (HCC) Start: 06-25-2023 End: 06-25-2023 ambulatory Treatment Rm 12 [place] [facility] Work Phone: Hematology/Oncology Comment on above: Iron deficiency anem ia due to chronic blood loss (Primary Dx); Thrombocytopenia (HCC) Start: 06-25-2023 Telephone encounter Financial Navigator B[place]zy Work Phone: Financial Services Comment on above: Benefits Investigati on Start: 06-23-2023 Telephone encounter Derrek gray MD Work Phone: Gastroenterology Comment on above: MAP follow up Start: 06-23-2023 End: 06-23-2023 ambulatory Treatment Rm 12 [place]ree[place] [facility] Work Phone: Hematology/Oncology Comment on above: Iron deficiency anem ia due to chronic blood loss (Primary Dx); Thrombocytopenia (HCC) Start: 06-22-2023 End: 06-22-2023 Patient encounter procedure Nurse Derm [facility] Robyn Work Phone: Dermatology Comment on above: AK (actinic keratosi s) (Primary Dx) Start: 06-18-2023 End: 06-18-2023 ambulatory Lashonda Aleman Work Phone: Hematology/Oncology Comment on above: Iron deficiency anem ia due to chronic blood loss Start: 06-18-2023 End: 06-18-2023 Patient encounter procedure Lashonda Aleman Work Phone: [place] [facility] Start: 06-15-2023 ambulatory Derrek cottrell MD Work Phone: [facility] Start: 06-15-2023 End: 06-15-2023 Patient encounter procedure Derrek Bear MD Work Phone: Gastroenterology Comment on above: Autoimmune hepatitis (HCC) (Primary Dx); Iron deficiency anemia due to chronic blood loss; Hepatic sclerosis change appointment Start: 06-14-2023 Refill Davis May MD Work Phone: [facility] Comment on above: Refill Request Start: 06-09-2023 Follow-up encounter Tarah Bagley ba, MD Work Phone: [facility] Start: 06-09-2023 ICD Remote F/U Tarah Iniguez Work Phone: [facility] Department Start: 06-06-2023 Refill Derrek cottrell MD Work Phone: Gastroenterology Comment on above: Refill Request Start: 06-04-2023 Refill Evelin Reich PACKAGER AND STRAPPER.ROAD INSPECTOR Work Phone: Endocrinology Comment on above: Refill Request Start: 05-24-2023 Telephone encounter Sanna Larsen APRN.PRODUCT MANAGER [employer]CIAL SERVICES Work Phone: [facility] Start: 05-19-2023 Refill Derrek cottrell MD Work Phone: Gastroenterology Comment on above: Refill Request Start: 05-11-2023 End: 05-11-2023 Patient encounter procedure Sury Mathias PACKAGER AND STRAPPER.ROAD INSPECTOR Work Phone: Dermatology Comment on above: AK (actinic keratosi s) (Primary Dx); Seborrheic keratosis; Henriquez angioma; Multiple benign nevi; Lentigines; Neoplasm of unspecified behavior of bone, soft tissue, and skin Start: 03-29-2023 Non-patient / Non-visit Dr. Ab Middleton Work Phone: [facility] Work Phone: Start: 03-28-2023 Non-patient / Non-visit Dr. Ab Middleton Work Phone: [facility] Start: 03-28-2023 Non-patient / Non-visit Dr. Ab Middleton Work Phone: [facility] Work Phone: Start: 03-27-2023 Non-patient / Non-visit Dr. Ab Middleton Work Phone: [facility] Start: 03-27-2023 Non-patient / Non-visit Dr. Ab Middleton Work Phone: [facility] Work Phone: Start: 03-26-2023 Non-patient / Non-visit Dr. Ab Middleton Work Phone: [facility] Start: 03-26-2023 End: 03-29-2023 Evaluation and management of inpatient [facility] Work Phone: Start: 03-04-2023 End: 03-04-2023 Nursing evaluation of patient and report Nurse [facility] Work Phone: Clinical Research Comment on above: Examination of parti cipant in clinical trial (Primary Dx) Start: 03-04-2023 End: 03-04-2023 Patient encounter procedure Nurse [facility] Work Phone: [facility] Start: 02-17-2023 ambulatory Bernadette lawrence MD Work Phone: Cardiology Comment on above: tests you requested US results Start: 02-17-2023 E-mail encounter fro m caregiver Derrek Bear MD Work Phone: [facility] Start: 02-17-2023 Refill Derrek cottrell MD Work Phone: Gastroenterology Comment on above: Refill Request Start: 02-16-2023 End: 02-16-2023 Subsequent hospital visit by physician Main A21 1 Radiology Comment on above: Autoimmune hepatitis (HCC) [K75.4] Start: 02-10-2023 Refill Nova suarez MD Work Phone: Cardiology Comment on above: Refill Request Start: 02-08-2023 End: 02-08-2023 Patient encounter procedure Myra Sami SINGH.ROAD INSPECTOR Work Phone: Gastroenterology Comment on above: Autoimmune [...] Tarah Bagley ba, MD Work Phone: [facility] Start: 12-09-2022 ICD Remote F/U Tarah Iniguez Work Phone: [facility] Department Start: 12-07-2022 Refill Davis May MD Work Phone: [facility] [place] Comment on above: Refill Request Start: 11-20-2022 Refill Derrek cottrell MD Work Phone: Gastroenterology Comment on above: Refill Request Start: 10-14-2022 End: 10-14-2022 Subsequent hospital visit by physician [place] [facility] [place] Work Phone: Radiology Comment on above: DDD (degenerative di sc disease), cervical [M50.30] Start: 09-30-2022 ambulatory Concepcion Gomez MD Work Phone: Endocrinology Comment on above: blood sugar level ri ses Start: 09-30-2022 End: 09-30-2022 Patient encounter procedure Evelin Reich PACKAGER AND STRAPPER.ROAD INSPECTOR Work Phone: Endocrinology Comment on above: Poorly controlled ty pe 2 diabetes mellitus (HCC) (Primary Dx) Start: 09-23-2022 End: 09-23-2022 Patient encounter procedure Derrek Bear MD Work Phone: Gastroenterology Comment on above: Autoimmune hepatitis (HCC) (Primary Dx); Controlled type 2 diabetes mellitus without complication, unspecified whether watermaster insulin use (HCC); Elevated LFTs Start: 09-21-2022 Telephone encounter Davis May MD Work Phone: [facility] [place] Comment on above: Results Start: [...] Tarah Bagley ba, MD Work Phone: [facility] Start: 06-10-2022 ICD Remote F/U Tarah Iniguez Work Phone: [facility] Start: 06-08-2022 Refill aDvis May MD Work Phone: [facility] [place] Comment on above: Refill Request Start: 05-25-2022 End: 05-25-2022 Patient encounter procedure Prabhu Le PA-C Work Phone: Otolaryngology Comment on above: Vocal cord nodule (P rimary Dx); Throat clearing; Oral bleeding; Gastroesophageal reflux disease, unspecified whether esophagitis present Start: 05-22-2022 Refill Davis May MD Work Phone: [facility] Comment on above: Refill Request Start: 05-20-2022 Orders Only Nova suarez MD Work Phone: Cardiology Comment on above: HOCM (hypertrophic o bstructive cardiomyopathy) (HCC) (Primary Dx) Start: 05-18-2022 ambulatory Bernadette lawrence MD Work Phone: Cardiology Comment on above: do we see each other ? Start: 04-20-2022 ambulatory Davis May MD Work Phone: [facility] Comment on above: covid Start: 04-20-2022 End: 04-20-2022 Patient encounter procedure Davis May MD Work Phone: [facility] Comment on above: Hypertrophic obstruc tive cardiomyopathy (HOCM) (HCC) (Primary Dx); Hyperlipidemia LDL goal <100; Portal vein thrombosis; Hepatic cirrhosis, unspecified hepatic cirrhosis type, unspecified whether ascites present (HCC); Controlled type 2 diabetes mellitus without complication, unspecified whether watermaster insulin use (HCC); Thrombocytopenia (HCC); Throat clearing; Oral bleeding Start: 04-13-2022 Refill Derrek cottrell MD Work Phone: Gastroenterology Comment on above: Refill Request Start: 04-10-2022 [facility] Comment on above: Appointment Start: 04-08-2022 ambulatory Sally Odonnell [facility] Comment on above: Population [facility] ([facility]HELIA ORANTES [facility]) Start: 04-07-2022 End: 04-07-2022 Subsequent hospital visit by physician Us Hernandez A21 3 Work Phone: Radiology Comment on above: Autoimmune hepatitis (HCC) [K75.4] Start: 03-23-2022 Refill Derrek cottrell MD Work Phone: Gastroenterology Comment on above: Refill Request Start: 03-11-2022 Follow-up encounter Tarah Bagley ba, MD Work Phone: [facility] Start: 03-11-2022 ICD Remote F/U Tarah Iniguez Work Phone: [facility] Start: 03-08-2022 Refill Davis May MD Work Phone: [facility] [place] Comment on above: Refill Request Start: 01-25-2022 ambulatory Davis May MD Work Phone: [facility] [place] Comment on above: I give up Start: 01-11-2022 Refill Derrek cottrell MD Work Phone: Gastroenterology Comment on above: Refill Request Start: 01-02-2022 Refill Davis May MD Work Phone: [facility] [place] Start: 12-29-2021 Refill Davis May MD Work Phone: [facility] [place] Comment on above: Refill Request monitoring blood sug ar Start: 12-23-2021 ambulatory Davis May MD Work Phone: [facility] [place] Start: 12-23-2021 Patient encounter procedure Davis May MD Work Phone: [facility] [place] Comment on above: duplicate appointmen ts in march Start: 12-22-2021 End: 12-22-2021 Patient encounter procedure Davis May MD Work Phone: [facility] [place] Comment on above: Hyperlipidemia LDL g oal <100 (Primary Dx); Controlled type 2 diabetes mellitus without complication, without long-term current use of insulin (HCC); Portal vein thrombosis; Hepatic cirrhosis, unspecified hepatic cirrhosis type, unspecified whether ascites present (HCC); Hypertrophic obstructive cardiomyopathy (HOCM) (HCC); Type 2 diabetes mellitus treated with insulin (HCC) Start: 12-22-2021 ambulatory Davis May MD Work Phone: [facility] [place] Comment on above: please send Rx to Dr Gooden Start: 12-09-2021 ambulatory Davis aMy MD Work Phone: [facility] [place] Start: 12-09-2021 Patient encounter procedure Davis May MD Work Phone: [facility] [place] Comment on above: Appointment cancelle d Start: 12-08-2021 Refill Derrek cottrell MD Work Phone: Gastroenterology Comment on above: Refill Request Start: 12-06-2021 Follow-up encounter Tarah Bagley ba, MD Work Phone: [facility] Start: 12-06-2021 ICD Remote F/U Tarah Iniguez Work Phone: [facility] Start: 11-11-2021 ambulatory Davis May MD Work Phone: Internal Medicine [place] Start: 11-11-2021 Telephone encounter Davis May MD Work Phone: [facility] [place] Comment on above: Results Start: 10-23-2021 ambulatory Davis May MD Work Phone: [facility] [place] Comment on above: Rx for my trip to [facility] Start: 10-20-2021 End: 10-20-2021 Patient encounter procedure Bernadette Munguia MD Work Phone: Cardiology Comment on above: Hypertrophic obstruc tive cardiomyopathy (HOCM) (HCC) (Primary Dx); Essential hypertension; Hyperlipidemia LDL goal <100; S/P ICD (internal cardiac defibrillator) procedure; Venous insufficiency Start: 10-16-2021 End: 10-16-2021 Patient encounter procedure Davis May MD Work Phone: [facility] [place] Comment on above: Autoimmune hepatitis treated with steroids (HCC) (Primary Dx); Hepatic cirrhosis, unspecified hepatic cirrhosis type, unspecified whether ascites present (HCC); Portal vein thrombosis; Thrombocytopenia (HCC); Recurrent depression (HCC); S/P ICD (internal cardiac defibrillator) procedure; Hyperlipidemia LDL goal <100; Hypertrophic obstructive cardiomyopathy (HOCM) (HCC); Steroid-induced hyperglycemia Start: 10-14-2021 ambulatory Davis May MD Work Phone: Internal Medicine Main [place] Start: 10-13-2021 End: 10-13-2021 ambulatory Derrek Bear MD Work Phone: Gastroenterology Comment on above: Autoimmune hepatitis (HCC) (Primary Dx); Liver disease, unspecified Start: 10-13-2021 End: 10-13-2021 Telemedicine consultation with patient Derrek Bear MD Work Phone: [facility] Start: 10-09-2021 Telephone encounter Lupe Reddy ([facility]) [facility] Comment on above: Appointment Start: 09-23-2021 Refill Derrek cottrell MD Work Phone: Gastroenterology Comment on above: Refill Request Start: 09-08-2021 Refill [facility] Provider [facility] jessica Orantes Comment on above: Refill Request Start: 09-02-2021 Follow-up encounter Tarah Bagley ba, MD Work Phone: [facility] Start: 09-02-2021 ICD Remote F/U Tarah Iniguez Work Phone: [facility] Department Start: 08-05-2021 Refill Davis May MD Work Phone: Family Medicine [place] Comment on above: Refill Request Start: 07-31-2021 End: 07-31-2021 Subsequent hospital visit by physician Ct Main F30 (I-Stat) Work Phone: Radiology Comment on above: Liver lesion [K76.9] Start: 07-23-2021 ambulatory Davis May MD Work Phone: Family Medicine [place] Comment on above: odd question Start: 07-21-2021 [...] patient Derrek Bear MD Work Phone: [facility] Start: 06-20-2021 Telephone encounter Lupe Reddy ([facility]) [facility] Comment on above: Appointment Start: 06-14-2021 Refill Nova suarez MD Work Phone: Cardiology Comment on above: Refill Request Start: 11-16-2017 Ambulatory [facility] Facility :[facility] Start: 05-13-2017 End: 05-13-2017 [facility] Facility:[facility] Procedures Date Procedure Procedure Detail Performing Clinician Start: 01-05-2025 Radiologic exam chest [address] Jena May MD Work Phone: Start: 01-05-2025 SARS-CoV-2, Influenza & RSV (PCR) Dr. Jessica May MD Work Phone: Start: 11-07-2024 Ct angio abd&plvis cntrst mtrl w/wo cntrst img Jose Landry MD Work Phone: Start: 10-06-2024 Ct cervical spine w/o contrast material Obdulia Martínez PACKAGER AND STRAPPER.ROAD INSPECTOR Work Phone: Start: 07-20-2024 CRYOTHERAPY SKIN LESION Marcos Rodriguez Work Phone: Start: 07-05-2024 Hemoglobin A1c/Hemoglobin.total in Blood Evelin C Cioce PACKAGER AND STRAPPER.ROAD INSPECTOR Work Phone: Start: 06-06-2024 Echo tthrc r-t 2d w/wom-mode compl spec&colr d Nova Shahid MD Work Phone: Start: 06-06-2024 LVEF TRANSTHORACIC ECHO Nova sanabria MD Work Phone: Start: 05-19-2024 Assay of ammonia India Barber MD Work Phone: Start: 05-19-2024 Lipid panel India Barber MD Work Phone: Start: 04-24-2024 Urnls dip stick/tablet reagent auto microscopy Lroa Thomas MD Work Phone: Start: 04-24-2024 Urnls dip stick/tablet rgnt auto w/o microscopy Lora Thomas MD Work Phone: Start: 04-14-[address] Davis May MD Work Phone: Start: 04-14-2024 Quantitative measurement of cryoglobulin in serum specimen Dr. Davis May MD Work Phone: Comment on above: None Detected at 72 hoursPerformed at: B - [address] Director: Avery Hinojosa PhD, Phone: [phone] Start: 04-14-[address] Davis May [...] Phone: Start: 10-21-2023 CRYOTHERAPY SKIN LESION Sury Stew PACKAGER AND STRAPPER.ROAD INSPECTOR Work Phone: Start: 09-28-2023 Dup-scan artl lovely abdl/pel/scrot&/rpr orgn com Derrek Bear MD Work Phone: Start: 09-28-2023 US ABD LIVER VASCULAR Derrek Bear MD Work Phone: Start: 07-16-2023 Adult depression screening assessment Evelin Reich PACKAGER AND STRAPPER.ROAD INSPECTOR Work Phone: Start: 07-06-2023 Esophagoscp rig transoral hypopharynx crv esoph Derrek Bear MD Work Phone: Start: 06-09-2023 ICD REMOTE CHECK Tarah Chaney MD Work Phone: Start: 05-11-2023 SKIN / NAIL BIOPSY Sury Mathias PACKAGER AND STRAPPER.ROAD INSPECTOR Work Phone: Start: 03-27-[address] Esteban [...] Derrek Bear MD Work Phone: Start: 04-15-2020 [facility] Nova Shahid MD Work Phone: Plan of Treatment Date Care Activity Detail Author Start: 09-28-2034 Urine microalbumin profile DTaP,Tdap,Td Vaccine (3 - Td or Tdap) [facility] Start: 04-15-2030 Colonoscopy COLONOSCOPY [facility] Start: 04-15-2030 COLORECTAL CANCER SCREENING COLORECTAL CANCER SCREENING [facility] Start: 04-15-2030 Screening for malignant neoplasm of colon [facility] Start: 11-27-2025 Complete blood count Hemoglobin/Hematocrit [facility] Start: 11-27-2025 Creatinine measurement Serum Creatinine [facility] Start: 11-27-2025 Hepatitis B screening Urine Albumin:Creatinine Ratio [facility] Start: 11-27-2025 Hepatitis B surface antibody level LDL Cholesterol [facility] Start: 11-06-2025 Creatinine measurement Serum Creatinine [facility] Start: 10-05-2025 Creatinine measurement Serum Creatinine [facility] Start: 10-03-2025 Annual PCP Team Chronic Disease Visit Annual PCP Team Chronic Disease Visit [facility] Start: 09-26-2025 Creatinine measurement Serum Creatinine [facility] Start: 09-01-2025 Creatinine measurement Serum Creatinine [facility] Start: 08-10-2025 BP Controlled (<130/80) BP Controlled (<130/80) [facility] Start: 08-09-2025 Annual PCP Team Chronic Disease Visit Annual PCP Team Chronic Disease Visit [facility] Start: 08-02-2025 Creatinine measurement Serum Creatinine [facility] Start: 07-24-2025 Annual PCP Team Chronic Disease Visit Annual PCP Team Chronic Disease Visit [facility] Start: 07-24-2025 BP Controlled (<130/80) BP Controlled (<130/80) [facility] Start: 07-04-2025 Creatinine measurement Serum Creatinine [facility] Start: 06-05-2025 Creatinine measurement Serum Creatinine [facility] Start: 05-30-2025 Annual PCP Team Chronic Disease Visit Annual PCP Team Chronic Disease Visit [facility] Start: 05-30-2025 BP Controlled (<130/80) BP Controlled (<130/80) [facility] Start: 05-27-2025 Hemoglobin A1c measurement HbA1C [facility] Start: 05-19-2025 Hepatitis B surface antibody level LDL Cholesterol [facility] Start: 05-18-2025 Creatinine measurement Serum Creatinine [facility] Start: 05-12-2025 Annual PCP Team Chronic Disease Visit Annual PCP Team Chronic Disease Visit [facility] Start: 04-28-2025 Complete blood count Hemoglobin/Hematocrit [facility] Start: 04-28-2025 Creatinine measurement Serum Creatinine [facility] Start: 04-15-2025 Hemoglobin A1c measurement HbA1C [facility] Start: 04-14-2025 Annual PCP Team Chronic Disease Visit Annual PCP Team Chronic Disease Visit [facility] Start: 04-14-2025 BP Controlled (<130/80) BP Controlled (<130/80) [facility] Start: 04-14-2025 Complete blood count Hemoglobin/Hematocrit [facility] Start: 04-14-2025 Creatinine measurement Serum Creatinine [facility] Start: 04-12-2025 Annual PCP Team Chronic Disease Visit Annual PCP Team Chronic Disease Visit [facility] Start: 04-12-2025 Covid-19 Vaccine () Covid-19 Vaccine () [facility] Comment on above: Postponed from 02/08/2024 (Declined at t his time) Start: 04-12-2025 Covid-19 Vaccine (11 - Pfizer risk ) Covid-19 Vaccine (11 - Pfizer risk ) [facility] Comment on above: Postponed from 06/12/2024 (Declined at t his time) Start: 04-06-2025 End: 04-06-2025 Follow-up encounter 04/06/2025 3:00 PM EST Visit (SP) Office Hematology/Oncology [address] [place] [address] Liseth Ortiz DO [address] [place] [address] Follow up per wq Hematology/Oncology Comment on above: Follow up per wq Start: 03-31-2025 Complete blood count Hemoglobin/Hematocrit [facility] Start: 03-31-2025 Creatinine measurement Serum Creatinine [facility] Start: 03-30-2025 Complete blood count Hemoglobin/Hematocrit [facility] Start: 03-30-2025 Creatinine measurement Serum Creatinine [facility] Start: 03-30-2025 Hepatitis B screening Urine Albumin:Creatinine Ratio [facility] Start: 02-09-2025 End: 02-09-2025 Patient encounter procedure 02/09/2025 10:20 AM EST Office Visit Dermatology [address] [id number] Marcos Farrell PA-C [address] [place] [address] [facility] Dermatology Comment on above: [facility] Start: 02-07-2025 End: 02-07-2025 Patient encounter procedure [facility] [place] Comment on above: medicare wellness Follow up Chronic Au toimmune Hepatitis Start: 01-30-2025 End: 01-30-2025 Nursing evaluation of patient and report 01/30/2025 11:00 AM EST Nurse Visit Clinical Research [address] [place] [address] [facility], Nurse [address] [place] [address] IRB# [id number], Trae, LCN, V5, Subj. ID# [id number], fibroscan [facility] Comment on above: IRB# [id number], Trae LCN, V5, Subj. ID# [id number], fibroscan Start: 01-30-2025 End: 01-30-2025 Patient encounter procedure 01/30/2025 11:00 AM EST Office Visit Clinical Research [address] [place] [address] Md, Study [address] [place] [address] IRB# [id number], Trae, LCN, V5, Subj. ID# [id number], fibroscan [facility] Comment on above: IRB# [id number], Dasprabhjot LCN, V5, Subj. ID# [id number], fibroscan Start: 01-25-2025 End: 01-25-2025 Patient encounter procedure 01/25/2025 10:00 AM EST Office Visit [facility] Ophthalmology [address] [place], [place] [id number] Angeline Pfeiffer, OD [address] [place] [address] 1 YR F/U for diabetic eye exam. Ophthalmology Comment on above: 1 YR F/U for diabetic eye exam. Start: 01-17-2025 Annual PCP Team Chronic Disease Visit Annual PCP Team Chronic Disease Visit [facility] Start: 01-17-2025 BP Controlled (<130/80) BP Controlled (<130/80) [facility] in Start: 01-10-2025 End: 01-10-2025 Patient encounter procedure 01/10/2025 9:45 AM EDT Office Visit Endocrinology [address] [place] [address] Evelin Reich, PACKAGER AND STRAPPER.ROAD INSPECTOR [address] [place] [address] 6 month follow up Endocrinology Comment on above: 6 month follow up Start: 01-05-2025 [facility] Start: 01-05-2025 Radiologic exam chest 2 views Chest PA and Lateral [facility] Start: 01-05-2025 [facility] Start: 01-05-2025 End: 01-05-2025 Emergency department patient visit Departed Emergency -Emergency Department Work Phone: Start: 01-05-2025 SARS-CoV-2, Influenza & RSV (PCR) SARS-CoV-2, Influenza & RSV (PCR) [facility] Start: 01-04-2025 Hemoglobin A1c measurement HbA1C [facility] Start: 12-20-2024 End: 03-21-2025 Comprehensive metabolic 2000 panel - Serum or Plasma COMPREHENSIVE METABOLIC PANEL Lab Routine Controlled type 2 diabetes mellitus without complication, unspecified whether fdc insulin use (HCC) Expected: 12/20/2024, Expires: 03/21/2025 [facility] Work Phone: Comment on above: Expected: 12/20/2024, Expires: Start: 12-20-2024 End: 03-21-2025 Hemoglobin A1c in Blood HEMOGLOBIN A1C Lab Routine Controlled type 2 diabetes mellitus without complication, unspecified whether fdc insulin use (HCC) Expected: 12/20/2024, Expires: 03/21/2025 [facility] Comment on above: Expected: 12/20/2024, Expires: Start: 12-20-2024 End: 03-21-2025 LIPID PANEL, NONFASTING LIPID PANEL, NONFASTING Lab Routine Controlled type 2 diabetes mellitus without complication, unspecified whether watermaster insulin use (HCC) Expected: 12/20/2024, Expires: 03/21/2025 [facility] Comment on above: Expected: 12/20/2024, Expires: Start: 12-20-2024 End: 03-21-2025 Microalbumin/Creatinine [Mass Ratio] in Urine ALBUMIN/CREATININE RATIO, URINE Lab Routine Controlled type 2 diabetes mellitus without complication, unspecified whether fdc insulin use (HCC) Expected: 12/20/2024, Expires: 03/21/2025 [facility] Comment on above: Expected: 12/20/2024, Expires: Start: 12-12-2024 End: 12-12-2024 Follow-up encounter 12/12/2024 10:00 AM EDT [facility] Pain Management [address] [address] Anjali Fong, PACKAGER AND STRAPPER.ROAD INSPECTOR [address] [place] [address] follow up 2 weeks after procedure Pain Management Comment on above: follow up 2 weeks after procedure Start: 12-04-2024 End: 12-04-2024 Patient encounter procedure 12/04/2024 11:45 AM EDT Office Visit Dermatology [address] [place] [address] Bhumi Carlisle, PACKAGER AND STRAPPER.ROAD INSPECTOR [address] [place] [address] [facility] Comment on above: [facility] Start: 11-28-2024 End: 11-28-2024 Admission to same day surgery center 11/28/2024 9:13 AM EDT - 11/28/2024 9:42 AM EDT Surgery [facility] [address] [place] [address] Prabhu Tyler MD [address] [facility] [id number] [place] [address] BLOCK JOINT FACET CERVICAL WITH C-ARM [facility] Comment on above: BLOCK [...] physician 11/28/2024 9:13 AM EDT Hospital Encounter [facility] [address] [place] [address] Prabhu Tyler MD [address] [address] Cervical spondylosis [M47.812], Cervical facet joint syndrome [M47.812] [facility] Comment on above: Cervical spondylosis [M47.812], Cervical facet joint syndrome [M47.812] Start: 11-28-2024 End: 11-28-2024 Admission to same day surgery center 11/28/2024 7:30 AM EDT - 11/28/2024 7:59 AM EDT Surgery [facility] [address] [place] [address] Prabhu Tyler MD [address] [address] BLOCK JOINT FACET CERVICAL WITH C-ARM [facility] Comment on above: BLOCK [...] physician 11/28/2024 7:30 AM EDT Hospital Encounter [facility] [address] [place] [address] Prabhu Tyler MD [address] [facility] [id number] [place] [address] Cervical spondylosis [M47.812], Cervical facet joint syndrome [M47.812] [facility] Comment on above: Cervical spondylosis [M47.812], Cervical facet joint syndrome [M47.812] Start: 11-21-2024 End: 02-20-2025 [id number] [Mass/volume] in Serum or Plasma ALPHA FETOPROTEIN Lab Routine Examination of participant in clinical trial Expected: 11/21/2024, Expires: 02/20/2025 [facility] Work Phone: Comment on above: Expected: 11/21/2024, Expires: Start: 11-21-2024 End: 02-20-2025 PT panel - Platelet poor plasma by Coagulation assay PROTHROMBIN TIME Lab Routine Examination of participant in clinical trial Expected: 11/21/2024, Expires: 02/20/2025 [facility] Comment on above: Expected: 11/21/2024, Expires: Start: 11-20-2024 Influenza vaccination Influenza Vaccine (#1) [facility] Start: 11-14-2024 End: 11-14-2024 Patient encounter procedure 11/14/2024 10:15 AM EDT Office Visit Dermatology [address] [place] [address] Bhumi Carlisle APRN.ROAD INSPECTOR [address] [address] [facility] Comment on above: [facility] Start: 11-13-2024 End: 11-13-2024 Patient encounter procedure [facility] [place] Comment on above: 6 month follow up 3 month follow up Start: 11-07-2024 End: 11-07-2024 Patient encounter procedure Radiology Comment on above: Portal vein thrombosis [I81] VASC, IV, >60 [facility]CA Start: 11-01-2024 End: 11-01-2024 Patient encounter procedure 11/01/2024 10:30 AM EDT Office Visit Gastroenterology [address] [address] Elsa Hernandez MD [address] [place], [place] [id number] Follow up Chronic Autoimmune Hepatitis Gastroenterology Comment on above: Follow up Chronic Autoimmune Hepatitis Start: 10-13-2024 End: 10-13-2024 Follow-up encounter 10/13/2024 3:00 PM EDT Visit (SP) Office Hematology/Oncology [address] [place] [address] Liseth Ortiz DO [address] [place], [place] [id number] Follow up per wq Hematology/Oncology Comment on above: Follow up per wq Start: 10-11-2024 End: 10-11-2024 Patient encounter procedure 10/11/2024 11:00 AM EDT Office Visit Gastroenterology [address] [address] Elsa Hernandez MD [address] [place] [address] [address] Castellon Gastroenterology Comment on above: previos pt of Dr. Castellon Start: 10-06-2024 End: 10-06-2024 Patient encounter procedure 10/06/2024 11:40 AM EDT Appointment Cat Scan [address] [place], [place] [id number] Dx: Spinal stenosis of cervical region [M48.02] Cat Scan Comment on above: Dx: Spinal stenosis of cervical region [ M48.02] Start: 10-04-2024 End: 10-04-2024 Patient encounter procedure 10/04/2024 1:00 PM EDT Office Visit Pain Management [address] [facility] [address] [place] [address] Prabhu Tyler MD [address] [facility] [id number] [place] [address] Dx: Neck pain [M54.2] Pain Management Comment on above: Dx: Neck pain [M54.2] Start: 10-03-2024 End: 10-03-2024 Patient encounter procedure 10/03/2024 11:00 AM EDT Office Visit [facility] [place] [address] [place], [place] [id number] Obdulia Martínez APRN.ROAD INSPECTOR [address] [place], [place] [id number] neck pain follow up [facility] Comment on above: neck pain follow up Start: 09-28-2024 End: 12-28-2024 Complement C3 [Mass/volume] in Serum or Plasma C3 COMPLEMENT Lab Routine Stage 3a chronic kidney disease (HCC) Expected: 09/28/2024, Expires: 12/28/2024 [facility] Comment on above: Expected: 09/28/2024, Expires: Start: 09-28-2024 End: 12-28-2024 Complement C4 [Mass/volume] in Serum or Plasma C4 COMPLEMENT Lab Routine Stage 3a chronic kidney disease (HCC) Expected: 09/28/2024, Expires: 12/28/2024 [facility] Comment on above: Expected: 09/28/2024, Expires: Start: 09-28-2024 End: 12-28-2024 DNA double strand Ab [Units/volume] in Serum by Immunoassay DNA AB DS + CONF BLD Lab Routine Stage 3a chronic kidney disease (HCC) Expected: 09/28/2024, Expires: 12/28/2024 [facility] Comment on above: Expected: 09/28/2024, Expires: Start: 09-28-2024 End: 12-28-2024 MONOCLONAL PROTEIN, SERUM (BLOOD) MONOCLONAL PROTEIN, SERUM (BLOOD) Lab Routine Stage 3a chronic kidney disease (HCC) Expected: 09/28/2024, Expires: 12/28/2024 [facility] Comment on above: Expected: 09/28/2024, Expires: Start: 09-20-2024 Hemoglobin A1c measurement HbA1C [facility] Start: 09-19-2024 End: 12-19-2024 [id number] [Mass/volume] in Serum or Plasma ALPHA FETOPROTEIN Lab Routine Autoimmune hepatitis (HCC) Expected: 09/19/2024, Expires: 12/19/2024 [facility] Comment on above: Expected: 09/19/2024, Expires: Start: 09-19-2024 End: 04-26-2025 Basic metabolic 2000 panel - Serum or Plasma BASIC METABOLIC PANEL Lab Routine Autoimmune hepatitis (HCC) Expected: 09/19/2024, Expires: 04/26/2025 [facility] Comment on above: Expected: 09/19/2024, Expires: Start: 09-19-2024 End: 04-26-2025 CBC W Auto Differential panel - Blood COMPLETE BLOOD COUNT AND DIFFERENTIAL Lab Routine Autoimmune hepatitis (HCC) Expected: 09/19/2024, Expires: 04/26/2025 [facility] Comment on above: Expected: 09/19/2024, Expires: Start: 09-19-2024 End: 04-26-2025 Hepatic function 2000 panel - Serum or Plasma HEPATIC FUNCTION PNL Lab Routine Autoimmune hepatitis (HCC) Expected: 09/19/2024, Expires: 04/26/2025 [facility] Comment on above: Expected: 09/19/2024, Expires: Start: 09-19-2024 End: 04-26-2025 PT panel - Platelet poor plasma by Coagulation assay PROTHROMBIN TIME Lab Routine Autoimmune hepatitis (HCC) Expected: 09/19/2024, Expires: 04/26/2025 [facility] Comment on above: Expected: 09/19/2024, Expires: Start: 09-19-2024 End: 05-26-2025 US Abdomen RUQ US ABD RIGHT UPPER QUADRANT Radiology Routine Autoimmune hepatitis (HCC) Expected: 09/19/2024, Expires: 05/26/2025 [facility] Work Phone: Comment on above: Expected: 09/19/2024, Expires: Start: 09-07-2024 Urine microalbumin profile [facility] Start: 08-29-2024 Hepatitis B screening Urine Albumin:Creatinine Ratio [facility] Start: 08-29-2024 Hepatitis B surface antibody level LDL Cholesterol [facility] Start: 08-10-2024 End: 08-10-2024 ambulatory 08/10/2024 11:00 AM EDT Visit (SP) Office Hematology/Oncology [address] [place] [address] Lana Jo MD [address] [place] [address] 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] Hematology/Oncology Comment on above: Clonal cytopenia of undetermined signifi cance (CCUS) [D75.9] Start: 08-08-2024 BP Controlled (<130/80) BP Controlled (<130/80) [facility] Start: 08-07-2024 End: 08-07-2024 Patient encounter procedure 08/07/2024 11:00 AM EDT Office Visit Vascular Medicine [address] [place] [address] Jose Landry MD [address] [place] [address] 3 month follow up Vascular Medicine Comment on above: 3 month follow up Start: 08-06-2024 [facility] Start: 07-24-2024 End: 07-24-2024 Patient encounter procedure 07/24/2024 1:40 PM EDT Office Visit Family Medicine [place] [address] [place], [place] [phone] Davis May MD [address] [place] [address] 6 month follow up [facility] [place] Comment on above: 6 month follow up Start: 07-20-2024 End: 07-20-2024 Patient encounter procedure 07/20/2024 9:40 AM EDT Office Visit Dermatology [address] [place] [address] Marcos Farrell PA-C [address] [place] [address] 10 wk FU Dermatology Comment on above: 10 wk FU Start: 07-15-2024 Annual PCP Team Chronic Disease Visit Annual PCP Team Chronic Disease Visit [facility] Start: 07-15-2024 Anxiety Screening Anxiety Screening [facility] Start: 07-15-2024 BP Controlled (<130/80) BP Controlled (<130/80) [facility] Start: 07-15-2024 Covid-19 Vaccine () Covid-19 Vaccine () [facility] Comment on above: Postponed from 05/21/2023 (Declined at t his time) Start: 07-15-2024 Depression Screening Depression Screening [facility] Start: 07-14-2024 End: 07-14-2024 Follow-up encounter 07/14/2024 2:30 PM EDT Visit (SP) Office Hematology/Oncology [address] [place] [address] Liseth Ortiz DO [address] [place], [place] [phone] follow up per pt req Hematology/Oncology Comment on above: follow up per pt req Start: 07-12-2024 End: 10-11-2024 MYELOID NGS PANEL PERIPHERAL BLOOD MYELOID NGS PANEL PERIPHERAL BLOOD Lab Routine Thrombocytopenia Expected: 07/12/2024, Expires: 10/11/2024 [facility] Comment on above: Expected: 07/12/2024, Expires: Start: 07-12-2024 End: 10-11-2024 PROTEIN ELECTROPHORESIS SERUM W/INTERP PROTEIN ELECTROPHORESIS SERUM W/INTERP Lab Routine MGUS (monoclonal gammopathy of unknown significance) Expected: 07/12/2024, Expires: 10/11/2024 [facility] Comment on above: Expected: 07/12/2024, Expires: Start: 07-08-2024 BP Controlled (<130/80) BP Controlled (<130/80) [facility] Start: 07-05-2024 End: 07-05-2024 Patient encounter procedure 07/05/2024 9:45 AM EDT Office Visit Endocrinology [address] [place] [address] Evelin Reich APRN.ROAD INSPECTOR [address] [place] [address] 6 month f/u Endocrinology Comment on above: 6 month f/u Start: 06-17-2024 BP Controlled (<130/80) BP Controlled (<130/80) [facility] Start: 06-12-2024 End: 06-12-2024 Patient encounter procedure Cardiology Comment on above: 8 month follow up Start: 06-06-2024 End: 06-06-2024 Patient encounter procedure 06/06/2024 9:40 AM EDT Office Visit Cardiology [address] [place] [address] Echo Cardiology Comment on above: Echo Start: 05-30-2024 End: 05-30-2024 Patient encounter procedure 05/30/2024 2:20 PM EDT Office Visit Family Medicine [place] [address] [place] [address] Sanna Larsen APRN.ROAD INSPECTOR [address] [place] [address] Sinus congestion/chest congestion [facility] [place] Comment on above: Sinus congestion/chest congestion Start: 05-29-2024 Hemoglobin A1c measurement HbA1C [facility] Start: 05-24-2024 End: 08-23-2024 Renal function 2000 panel - Serum or Plasma RENAL FUNCTION PANEL Lab Routine Stage 3a chronic kidney disease (HCC) Primary hypertension Expected: 05/24/2024, Expires: 08/23/2024 [facility] Comment on above: Expected: 05/24/2024, Expires: Start: 05-20-2024 Hepatitis B surface antibody level LDL Cholesterol [facility] Start: 05-19-2024 End: 05-19-2024 Nursing evaluation of patient and report 05/19/2024 11:00 AM EST Nurse Visit Clinical Research [address] [place] [address] [facility], Nurse [address] [place] [address] IRB# [id number], Dasarathy, LCN, V3, Subj. ID# [id number], Fibroscan Clinical Research Comment on above: IRB# [id number], Dasarathy, LCN, V3, Subj. ID# [id number], Fibroscan Start: 05-19-2024 End: 05-19-2024 Patient encounter procedure 05/19/2024 11:00 AM EST Office Visit Clinical Research [address] [place] [address] Md, Study [address] [id number] IRB# [id number], Dasarathy, LCN, V3, Subj. ID# [id number], Fibroscan Clinical Research Comment on above: IRB# [id number], Dasarathy, LCN, V3, Subj. ID# [id number], Fibroscan Start: 05-17-2024 End: 08-16-2024 Renal function 2000 panel - Serum or Plasma RENAL FUNCTION PANEL Lab Routine Stage 3a chronic kidney disease (HCC) Primary hypertension Expected: 05/17/2024, Expires: 08/16/2024 [facility] Work Phone: Comment on above: Expected: 05/17/2024, Expires: Start: 05-12-2024 End: 05-12-2024 Patient encounter procedure 05/12/2024 4:20 PM EST Office Visit Family Medicine [place] [address] [place], [place] [id number] Davis May MD [address] [facility] [place] [address] 4 week follow up Family Medicine [place] Comment on above: 4 week follow up Start: 05-11-2024 End: 05-11-2024 Patient encounter procedure Dermatology Comment on above: follow up ak follow up Start: 05-10-2024 End: 05-10-2024 Patient encounter procedure 05/10/2024 11:30 AM EST Office Visit Vascular Medicine [address] [place] [address] Jose Landry MD [address] [place] [address] [facility] Vascular Medicine Comment on above: PVT Start: 04-26-2024 End: 04-26-2024 Follow-up encounter 04/26/2024 10:00 AM EST [facility] Gastroenterology [address] [address] Stevan Thomas MD [address] [place] [address] CT Follow Up/Chronic Autoimmune Hepatitis/Dr Bear patient Gastroenterology Comment on above: CT Follow Up/Chronic Autoimmune Hepatiti s/Dr Bear patient Start: 04-24-2024 End: 04-24-2024 Patient encounter procedure 04/24/2024 1:30 PM EST Office Visit Urology [address] [place] [address] Lora Thomas MD [address] [facility] [address] [place], [place] [id number] *UA. Microscopic hematuria [R31.29] Urology Comment on above: *UA. Microscopic hematuria [R31.29] Start: 04-24-2024 End: 04-24-2024 Patient encounter procedure 04/24/2024 9:40 AM EST Office Visit Dermatology [address] [place] [address] Bhumi Carlisle APRN.ROAD INSPECTOR [address] [place] [address] 3 months (around 04/22/2024) for efudex follow up with MA/KS. Dermatology Comment on above: 3 months (around 04/22/2024) for efudex fo llow up with MA/KS. Start: 04-20-2024 End: 04-20-2024 Follow-up encounter 04/20/2024 12:45 PM [facility] Gastroenterology [address] [address] Stevan Thomas MD [address] [place] [address] CT Follow Up/Chronic Autoimmune Hepatitis/Dr Bear patient Gastroenterology Comment on above: CT Follow Up/Chronic Autoimmune Hepatiti s/Dr Bear patient Start: 04-19-2024 End: 07-19-2024 Renal function 2000 panel - Serum or Plasma RENAL FUNCTION PANEL Lab Routine Stage 3a chronic kidney disease (HCC) Expected: 04/19/2024, Expires: 07/19/2024 [facility] Work Phone: Comment on above: Expected: 04/19/2024, Expires: Start: 04-18-2024 End: 04-18-2024 Patient encounter procedure Urology Comment on above: Microscopic hematuria [R31.29] *UA. Microscopic hem aturia [R31.29] Start: 04-16-2024 Annual PCP Team Chronic Disease Visit Annual PCP Team Chronic Disease Visit [facility] Start: 04-16-2024 BP Controlled (<130/80) BP Controlled (<130/80) [facility] in Start: 04-13-2024 Hemoglobin A1c measurement HbA1C [facility] Start: 04-12-2024 End: 07-12-2024 25-hydroxyvitamin D3 [Mass/volume] in Serum or Plasma VITAMIN D 25 HYDROXY Lab Routine Stage 3a chronic kidney disease (HCC) Expected: 04/12/2024, Expires: 07/12/2024 [facility] Comment on above: Expected: 04/12/2024, Expires: Start: 04-12-2024 End: 04-12-2025 ANTI NEUTRO CYTO AB ANTI NEUTRO CYTO AB Lab Routine Stage 3a chronic kidney disease (HCC) Expected: 04/12/2024, Expires: 04/12/2025 [facility] Comment on above: Expected: 04/12/2024, Expires: Start: 04-12-2024 End: 04-12-2025 Basement membrane IgG Ab [Presence] in Serum by Immunofluorescence GBM AB, IGG (IFA) Lab Routine Stage 3a chronic kidney disease (HCC) Expected: 04/12/2024, Expires: 04/12/2025 [facility] Comment on above: Expected: 04/12/2024, Expires: Start: 04-12-2024 End: 07-12-2024 CBC panel - Blood by Automated count COMPLETE BLOOD COUNT Lab Routine Stage 3a chronic kidney disease (HCC) Expected: 04/12/2024, Expires: 07/12/2024 [facility] Comment on above: Expected: 04/12/2024, Expires: Start: 04-12-2024 End: 04-12-2025 Complement C3 [Mass/volume] in Serum or Plasma C3 COMPLEMENT Lab Routine Stage 3a chronic kidney disease (HCC) Expected: 04/12/2024, Expires: 04/12/2025 [facility] Comment on above: Expected: 04/12/2024, Expires: Start: 04-12-2024 End: 04-12-2025 Complement C4 [Mass/volume] in Serum or Plasma C4 COMPLEMENT Lab Routine Stage 3a chronic kidney disease (HCC) Expected: 04/12/2024, Expires: 04/12/2025 [facility] Comment on above: Expected: 04/12/2024, Expires: Start: 04-12-2024 End: 07-12-2024 CRYOGLOBULIN, QUAL, REFLEX TO MADHAV AND IGG,A,M CRYOGLOBULIN, QUAL, REFLEX TO MADHAV AND IGG,A,M Lab Routine Stage 3a chronic kidney disease (HCC) Expected: 04/12/2024, Expires: 07/12/2024 [facility] Comment on above: Expected: 04/12/2024, Expires: Start: 04-12-2024 End: 07-12-2024 DNA double strand Ab [Units/volume] in Serum by Immunoassay DNA AB DS + CONF BLD Lab Routine Stage 3a chronic kidney disease (HCC) Expected: 04/12/2024, Expires: 07/12/2024 [facility] Comment on above: Expected: 04/12/2024, Expires: Start: 04-12-2024 End: 04-12-2025 HIV 1+2 Ab [Presence] in Serum or Plasma by Immunoassay HIV 1/2 COMBO WITH REFLEX TO DIFFERENTIATION Lab Routine Stage 3a chronic kidney disease (HCC) Expected: 04/12/2024, Expires: 04/12/2025 [facility] Comment on above: Expected: 04/12/2024, Expires: Start: 04-12-2024 End: 07-12-2024 MONOCLONAL PROTEIN, SERUM (BLOOD) MONOCLONAL PROTEIN, SERUM (BLOOD) Lab Routine Stage 3a chronic kidney disease (HCC) Expected: 04/12/2024, Expires: 07/12/2024 [facility] Comment on above: Expected: 04/12/2024, Expires: Start: 04-12-2024 End: 07-12-2024 Parathyrin.intact [Mass/volume] in Serum or Plasma PTH INTACT Lab Routine Stage 3a chronic kidney disease (HCC) Expected: 04/12/2024, Expires: 07/12/2024 [facility] Comment on above: Expected: 04/12/2024, Expires: Start: 04-12-2024 End: 07-12-2024 PRIMARY MEMBRANEOUS NEPHROPATHY DIAGNOSTIC CASCADE, SER PRIMARY MEMBRANEOUS NEPHROPATHY DIAGNOSTIC CASCADE, SER Lab Routine Stage 3a chronic kidney disease (HCC) Expected: 04/12/2024, Expires: 07/12/2024 [facility] Comment on above: Expected: 04/12/2024, Expires: Start: 04-12-2024 End: 07-12-2024 Renal function 2000 panel - Serum or Plasma RENAL FUNCTION PANEL Lab Routine Stage 3a chronic kidney disease (HCC) Expected: 04/12/2024, Expires: 07/12/2024 [facility] Work Phone: Comment on above: Expected: 04/12/2024, Expires: Start: 04-12-2024 End: 04-12-2024 Patient encounter procedure Kidney Medicine Comment on above: CKD Hospital follow up D /C [facility] [place] 03.31.2024 Risk Score 18 Admitted for: New onset portal vein thrombosis Start: 04-06-2024 End: 04-06-2024 Patient encounter procedure 04/06/2024 11:00 AM EST Office Visit Kidney Medicine [address] [place] [address] Anjel Bird, PACKAGER AND STRAPPER.[facility] [address] [place] [address] hospital DC f/u for CKD3a Kidney Medicine Comment on above: hospital DC f/u for CKD3a Start: 03-31-2024 End: 03-31-2024 Follow-up encounter Gastroenterology Comment on above: CT Follow Up/Chronic Autoimmune Hepatiti s/Dr Bear patient Start: 03-29-2024 End: 03-29-2024 Patient encounter procedure 03/29/2024 11:00 AM EST Appointment Radiology [address] [id number] Liver disease [K76.9] Radiology Comment on above: Liver disease [K76.9] Start: 03-22-2024 End: 06-21-2024 Hemoglobin A1c in Blood HEMOGLOBIN A1C Lab Routine Controlled type 2 diabetes mellitus without complication, unspecified whether fdc insulin use (HCC) Expected: 03/22/2024, Expires: 06/21/2024 [facility] Work Phone: Comment on above: Expected: 03/22/2024, Expires: Start: 03-19-2024 Hepatitis B screening Urine Albumin:Creatinine Ratio [facility] Start: 03-19-2024 Hepatitis B surface antibody level LDL Cholesterol [facility] Start: 03-04-2024 Hepatitis B surface antibody level LDL Cholesterol [facility] Start: 02-29-2024 Hemoglobin A1c measurement HbA1C [facility] Start: 02-09-2024 End: 05-10-2024 [id number]-[id number] [Mass/volume] in Serum or Plasma ALPHA FETOPROTEIN Lab Routine Autoimmune hepatitis (HCC) Expected: 02/09/2024, Expires: 05/10/2024 [facility] Comment on above: Expected: 02/09/2024, Expires: Start: 02-09-2024 End: 08-08-2024 Basic metabolic 2000 panel - Serum or Plasma BASIC METABOLIC PANEL Lab Routine Autoimmune hepatitis (HCC) Expected: 02/09/2024, Expires: 08/08/2024 [facility] Comment on above: Expected: 02/09/2024, Expires: Start: 02-09-2024 End: 08-08-2024 CBC W Auto Differential panel - Blood COMPLETE BLOOD COUNT AND DIFFERENTIAL Lab Routine Autoimmune hepatitis (HCC) Expected: 02/09/2024, Expires: 08/08/2024 [facility] Comment on above: Expected: 02/09/2024, Expires: Start: 02-09-2024 End: 08-08-2024 Hepatic function 2000 panel - Serum or Plasma HEPATIC FUNCTION PNL Lab Routine Autoimmune hepatitis (HCC) Expected: 02/09/2024, Expires: 08/08/2024 [facility] Work Phone: Comment on above: Expected: 02/09/2024, Expires: Start: 02-09-2024 End: 08-08-2024 PT panel - Platelet poor plasma by Coagulation assay PROTHROMBIN TIME Lab Routine Autoimmune hepatitis (HCC) Expected: 02/09/2024, Expires: 08/08/2024 [facility] Comment on above: Expected: 02/09/2024, Expires: Start: 02-08-2024 Covid-19 Vaccine () Covid-19 Vaccine () [facility] Start: 01-24-2024 End: 01-24-2024 Patient encounter procedure 01/24/2024 1:45 PM EST Office Visit OPHT [facility]hthalmology [address] [facility] [place] [address] Angeline Pfeiffer, OD [address] [place] [address] 1 YR complete eye exam with BAT testing. Ophthalmology Comment on above: 1 YR complete eye exam with BAT testing. Start: 01-21-2024 End: 01-21-2024 Patient encounter procedure 01/21/2024 11:00 AM EDT Office Visit Dermatology [address] [place] [address] Sury Mathias APRN.ROAD INSPECTOR [address] [place] [address] Return in about 3 months (around 01/19/2024). Dermatology Comment on above: Return in about 3 months (around 024). Start: 01-17-2024 End: 01-17-2024 Patient encounter procedure 01/17/2024 1:40 PM EDT Office Visit Family Medicine [place] [address] [place] [address] Davis May MD [address] [place] [address] 6 month follow up Family Medicine [place] Comment on above: 6 month follow up Start: 01-16-2024 Annual PCP Team Chronic Disease Visit Annual PCP Team Chronic Disease Visit [facility] Start: 01-16-2024 BP Controlled (<130/80) BP Controlled (<130/80) [facility] Start: 01-16-2024 RSV Vaccine (1 - 1-dose 60+ series) RSV Vaccine (1 - 1-dose 60+ series) [facility] Comment on above: Postponed from 2008 (Declined at t his time) Start: 01-14-2024 End: 01-14-2024 ambulatory [facility] 1 Chrissy Mikala Comment on above: Labs D50.0 Start: 12-02-2023 End: 12-02-2023 ambulatory 12/02/2023 10:00 AM EDT Visit (SP) Office Hematology/Oncology [address] [place] [address] [place] [address] [place] [address] OV/LABS 11/29* Hematology/Oncology Comment on above: OV/LABS 11/29* Start: 11-30-2023 End: 11-30-2023 ambulatory 11/30/2023 10:00 AM EDT Results Only [place] [facility] [address] [place] [address] CBC/IRON STUDIES* [facility] Comment on above: CBC/IRON STUDIES* Start: 11-21-2023 Covid-19 Vaccine ( season) Covid-19 Vaccine () [facility] Start: 11-21-2023 Covid-19 Vaccine () Covid-19 Vaccine () [facility] Start: 11-21-2023 Influenza vaccination Influenza Vaccine (#1) [facility] Start: 11-17-2023 End: 11-17-2023 Patient encounter procedure 11/17/2023 8:45 AM EDT Office Visit Endocrinology [address] [place] [address] Evelin Reich, PACKAGER AND STRAPPER.ROAD INSPECTOR [address] [place] [address] blood sugar Endocrinology Comment on above: blood sugar Start: 10-20-2023 End: 10-20-2023 Patient encounter procedure 10/20/2023 12:45 PM EDT Office Visit Endocrinology [address] [place] [address] Evelin Reich, PACKAGER AND STRAPPER.ROAD INSPECTOR [address] [place] [address] blood sugar Endocrinology Comment on above: blood sugar Start: 10-19-2023 End: 10-19-2023 Patient encounter procedure 10/19/2023 2:30 PM EDT Office Visit Dermatology [address] [place] [address] Sury Mathias APRN.ROAD INSPECTOR [address] [place] [address] *patient will need to wait for team to contact him if this appointment date and time does not work Dermatology Comment on above: *patient will need to wait for team to c ontact him if this appointment date and time does not work Start: 10-15-2023 ANNUAL PCP TEAM CHRONIC DISEASE VISIT ANNUAL PCP TEAM CHRONIC DISEASE VISIT [facility] Start: 10-04-2023 End: 10-04-2023 Patient encounter procedure Cardiology Comment on above: 6 month follow up *patient will need t o wait for team to contact him if this appointment date and time does not work Start: 10-01-2023 End: 12-31-2023 25-hydroxyvitamin D3 [Mass/volume] in Serum or Plasma VITAMIN D 25 HYDROXY Lab Routine Encounter for screening for osteoporosis Liver disease Autoimmune hepatitis (HCC) Expected: 10/01/2023, Expires: 12/31/2023 [facility] Comment on above: Expected: 10/01/2023, Expires: Start: 10-01-2023 End: 12-31-2023 [id number]-[id number] [Mass/volume] in Serum or Plasma ALPHA FETOPROTEIN Lab Routine Encounter for screening for osteoporosis Liver disease Autoimmune hepatitis (HCC) Expected: 10/01/2023, Expires: 12/31/2023 [facility] Work Phone: Comment on above: Expected: 10/01/2023, Expires: 4 Start: 10-01-2023 End: 12-31-2023 CBC panel - Blood by Automated count COMPLETE BLOOD COUNT Lab Routine Encounter for screening for osteoporosis Liver disease Autoimmune hepatitis (HCC) Expected: 10/01/2023, Expires: 12/31/2023 [facility] Comment on above: Expected: 10/01/2023, Expires: Start: 10-01-2023 End: 12-31-2023 Comprehensive metabolic 2000 panel - Serum or Plasma COMPREHENSIVE METABOLIC PANEL Lab Routine Encounter for screening for osteoporosis Liver disease Autoimmune hepatitis (HCC) Expected: 10/01/2023, Expires: 12/31/2023 [facility] Comment on above: Expected: 10/01/2023, Expires: Start: 10-01-2023 End: 12-31-2023 PT panel - Platelet poor plasma by Coagulation assay PROTHROMBIN TIME Lab Routine Encounter for screening for osteoporosis Liver disease Autoimmune hepatitis (HCC) Expected: 10/01/2023, Expires: 12/31/2023 [facility] Comment on above: Expected: 10/01/2023, Expires: Start: 09-28-2023 End: 09-28-2023 ambulatory 09/28/2023 11:20 AM EDT Procedure Gastroenterology [address] [place] [address] Fibroscan Gastroenterology Comment on above: Fibroscan Start: 09-28-2023 End: 09-28-2023 Patient encounter procedure Radiology Comment on above: LVUS/Doppler Follow up Start: 09-26-2023 Covid-19 Vaccine () Covid-19 Vaccine () [facility] Start: 09-21-2023 End: 09-21-2023 Patient encounter procedure 09/21/2023 9:15 AM EDT Office Visit Dermatology [address] [place] [address] Sury Mathias APRN.ROAD INSPECTOR [address] [place] [address] follow up PDT Dermatology Comment on above: follow up PDT Start: 09-02-2023 End: 09-02-2023 Nursing evaluation of patient and report Clinical Research Comment on above: IRB#: [facility] IRB [id number], Trae,visit 2 , ID#: [id number], Patient consented. Please schedule MD visit. No fibroscan this visit. IRB#: [facility] IRB [id number] 6Trae,visit 2, ID#: [id number], Patient consented. No fibroscan this visit. Start: 09-02-2023 End: 09-02-2023 Patient encounter procedure 09/02/2023 10:30 AM EDT Office Visit Clinical Research [address] [place] [address] , Study [address] [place] [address] IRB#: [facility] IRB [id number], Trae,visit 2, ID#: [id number], Patient consented. Please schedule MD visit. No fibroscan this visit. Clinical Research Comment on above: IRB#: [facility] IRB [id number], Trae,visit 2 , ID#: [id number], Patient consented. Please schedule MD visit. No fibroscan this visit. Start: 09-01-2023 End: 09-01-2023 ambulatory 09/01/2023 10:20 AM EDT Visit (SP) Office Hematology/Oncology [address] [place] [address] [place] [address] [place] [address] OV/LABS 08/29* Hematology/Oncology Comment on above: OV/LABS 08/29* Start: 08-30-2023 End: 08-30-2023 ambulatory 08/30/2023 10:00 AM EDT Results Only [facility] [address] [place] [address] LABS/?IRON STUDIES* [facility] Comment on above: LABS/?IRON STUDIES* Start: 08-09-2023 End: 08-09-2023 Patient encounter procedure 08/09/2023 10:00 AM EDT Office Visit Gastroenterology [address] [address] Myra Gallardo APRN.ROAD INSPECTOR [address] [place] [address] Autoimmune hepatitis follow up Gastroenterology Comment on above: Autoimmune hepatitis follow up Start: 07-21-2023 End: 07-21-2023 Patient encounter procedure 07/21/2023 11:00 AM EDT Office Visit Family Medicine [place] [address] [place], [place] [address] Davis May MD [address] [place], [place] [id number] 6 Month follow up Family [place] [place] Comment on above: 6 Month follow up Start: 07-16-2023 End: 07-16-2023 Patient encounter procedure 07/16/2023 9:20 AM EDT Office Visit Family [place] [place] [address] [place] [address] Davis May MD [address] [place] [id number] 3 month follow up Family [facility] [place] Comment on above: 3 month follow up Start: 06-18-2023 Hemoglobin A1c measurement HbA1C [facility] Start: 06-15-2023 End: 09-14-2023 25-hydroxyvitamin D3 [Mass/volume] in Serum or Plasma VITAMIN D 25 HYDROXY Lab Routine Autoimmune hepatitis (HCC) Hepatic sclerosis Expected: 06/15/2023, Expires: 09/14/2023 [facility] Work Phone: Comment on above: Expected: 06/15/2023, Expires: 4 Start: 06-15-2023 End: 09-14-2023 [id number] [Mass/volume] in Serum or Plasma ALPHA FETOPROTEIN BL Lab Routine Autoimmune hepatitis (HCC) Expected: 06/15/2023, Expires: 09/14/2023 [facility] Work Phone: Comment on above: Expected: 06/15/2023, Expires: 4 Start: 06-15-2023 End: 09-14-2023 CBC panel - Blood by Automated count CBC Lab Routine Autoimmune hepatitis (HCC) Expected: 06/15/2023, Expires: 09/14/2023 [facility] Work Phone: Comment on above: Expected: 06/15/2023, Expires: 4 Start: 06-15-2023 End: 09-14-2023 Comprehensive metabolic 2000 panel - Serum or Plasma COMP METABOLIC PANEL Lab Routine Autoimmune hepatitis (HCC) Expected: 06/15/2023, Expires: 09/14/2023 [facility] Work Phone: Comment on above: Expected: 06/15/2023, Expires: Start: 06-15-2023 End: 09-14-2023 IgG [Mass/volume] in Serum or Plasma IGG Lab Routine Autoimmune hepatitis (HCC) Expected: 06/15/2023, Expires: 09/14/2023 [facility] Work Phone: Comment on above: Expected: 06/15/2023, Expires: Start: 06-15-2023 End: 09-14-2023 PT panel - Platelet poor plasma by Coagulation assay PROTHROMBIN TIME Lab Routine Autoimmune hepatitis (HCC) Expected: 06/15/2023, Expires: 09/14/2023 [facility] Work Phone: Comment on above: Expected: 06/15/2023, Expires: Start: 05-21-2023 Covid-19 Vaccine ( season) Covid-19 Vaccine () [facility] Start: 05-21-2023 Covid-19 Vaccine ( season) Covid-19 Vaccine () [facility] Start: 05-01-2023 Hemoglobin A1c measurement HbA1C [facility] Start: 05-01-2023 Hemoglobin A1c/Hemoglobin.total in Blood HbA1C [facility] Start: 04-20-2023 ANNUAL PCP TEAM CHRONIC DISEASE VISIT ANNUAL PCP TEAM CHRONIC DISEASE VISIT [facility] Start: 04-09-2023 Hepatitis B surface antibody level LDL CHOLESTEROL [facility] Start: 03-29-2023 Patient discharge [facility] Start: 03-29-2023 [facility] Start: 03-28-2023 Provision of activity privileges [facility] Start: 03-27-2023 End: 03-28-2023 [facility] Start: 03-27-2023 Application of intermittent pneumatic compression device [facility] Start: 03-26-2023 Following clinical pathway protocol [facility] Start: 03-26-2023 Assessment of risk of venous thromboembolism [facility] Start: 03-26-20[address] Document[address] procedure [facility] Start: 03-26-2023 Inhalation therapy procedure [facility] Start: 03-26-2023 Insertion of catheter into peripheral vein [facility] Start: 03-26-2023 Measuring intake and output [facility] Start: 03-26-2023 Providing care according to standard [facility] Start: 03-26-2023 Provision of activity privileges [facility] Start: 03-26-2023 End: 03-26-2023 [facility] Start: 03-26-2023 Verification routine [facility] Start: 03-26-2023 End: 03-26-2023 Admission procedure [facility] Start: 03-26-2023 Hospital admission, emergency, from emergency room, medical nature [facility] Start: 03-22-2023 End: 05-22-2023 ALBUMIN/CREAT RATIO RND UR ALBUMIN/CREAT RATIO RND UR Lab Routine Poorly controlled type 2 diabetes mellitus (HCC) Expected: 03/22/2023, Expires: 05/22/2023 [facility] Work Phone: Comment on above: Expected: 03/22/2023, Expires: 4 Start: 03-22-2023 Behavioral Health Screening Behavioral Health Screening [facility] Start: 03-22-2023 End: 05-22-2023 Comprehensive metabolic 2000 panel - Serum or Plasma COMP METABOLIC PANEL Lab Routine Poorly controlled type 2 diabetes mellitus (HCC) Expected: 03/22/2023, Expires: 05/22/2023 [facility] Work Phone: Comment on above: Expected: 03/22/2023, Expires: 4 Start: 03-22-2023 Covid-19 Vaccine () Covid-19 Vaccine () [facility] Comment on above: Postponed from 12/13/2022 (Declined at t his time) Start: 03-22-2023 Depression Assessment Depression Assessment [facility] Start: 03-22-2023 End: 05-22-2023 Hemoglobin A1c in Blood HGB A1C Lab Routine Poorly controlled type 2 diabetes mellitus (HCC) Expected: 03/22/2023, Expires: 05/22/2023 [facility] Work Phone: Comment on above: Expected: 03/22/2023, Expires: 4 Start: 03-22-2023 End: 05-22-2023 LIPID PANEL, NONFASTING LIPID PANEL, NONFASTING Lab Routine Poorly controlled type 2 diabetes mellitus (HCC) Expected: 03/22/2023, Expires: 05/22/2023 [facility] Work Phone: Comment on above: Expected: 03/22/2023, Expires: Start: 12-22-2022 ANNUAL PCP TEAM CHRONIC DISEASE VISIT ANNUAL PCP TEAM CHRONIC DISEASE VISIT [facility] Start: 12-20-2022 End: 02-19-2023 Hemoglobin A1c in Blood HGB A1C Lab Routine Poorly controlled type 2 diabetes mellitus (HCC) Expected: 12/20/2022, Expires: 02/19/2023 [facility] Work Phone: Comment on above: Expected: 12/20/2022, Expires: 3 Start: 12-19-2022 Hemoglobin A1c/Hemoglobin.total in Blood HBA1C [facility] Start: 12-13-2022 COVID-19 VACCINE (8 - Pfizer risk series) COVID-19 VACCINE (8 - Pfizer risk series) [facility] Start: 11-20-2022 Influenza vaccination [facility] Start: 11-10-2022 Hepatitis B screening URINE ALBUMIN:CREATININE RATIO [facility] Start: 10-16-2022 ANNUAL PCP TEAM CHRONIC DISEASE VISIT ANNUAL PCP TEAM CHRONIC DISEASE VISIT [facility] Start: 07-19-2022 End: 09-18-2022 Hemoglobin A1c in Blood HGB A1C Lab Routine Controlled type 2 diabetes mellitus without complication, unspecified whether fdc insulin use (HCC) Expected: 07/19/2022, Expires: 09/18/2022 [facility] Work Phone: Comment on above: Expected: 07/19/2022, Expires: 3 Start: 07-08-2022 Hemoglobin A1c/Hemoglobin.total in Blood HBA1C [facility] Start: 05-13-2022 Hemoglobin A1c/Hemoglobin.total in Blood HBA1C [facility] Start: 04-16-2022 ANNUAL PCP TEAM CHRONIC DISEASE VISIT ANNUAL PCP TEAM CHRONIC DISEASE VISIT [facility] Start: 03-24-2022 End: 05-24-2022 Hemoglobin A1c in Blood HGB A1C Lab Routine Controlled type 2 diabetes mellitus without complication, without long-term current use of insulin ([facility]) Expected: 03/24/2022, Expires: 05/24/2022 [facility] Work Phone: Comment on above: Expected: 03/24/2022, Expires: 3 Start: 03-24-2022 End: 05-24-2022 Lipid 1996 panel - Serum or Plasma LIPID PANEL BASIC Lab Routine Controlled type 2 diabetes mellitus without complication, without long-term current use of insulin ([facility]) Expected: 03/24/2022, Expires: 05/24/2022 [facility] Work Phone: Comment on above: Expected: 03/24/2022, Expires: 3 Start: 03-22-2022 ADVANCE DIRECTIVE DISCUSSION ADVANCE DIRECTIVE DISCUSSION [facility] Start: 03-22-2022 DEPRESSION ASSESSMENT DEPRESSION ASSESSMENT [facility] Start: 12-25-2021 Hepatitis B surface antibody level LDL CHOLESTEROL [facility] Start: 12-20-2021 Hemoglobin A1c/Hemoglobin.total in Blood HBA1C [facility] Start: 12-17-2021 COVID-19 VACCINE (6 - Booster for Pfizer series) COVID-19 VACCINE (6 - Booster for Pfizer series) [facility] Start: 11-20-2021 Influenza vaccination INFLUENZA (#1) [facility] Start: 11-11-2021 End: 01-11-2022 SCHEDULE LAB TESTING SCHEDULE LAB TESTING Lab Routine Expected: 11/11/2021, Expires: 01/11/2022 [facility] Work Phone: Comment on above: Expected: 11/11/2021, Expires: 2 Start: 10-16-2021 End: 12-16-2021 ALBUMIN/CREAT RATIO RND UR ALBUMIN/CREAT RATIO RND UR Lab Routine Steroid-induced hyperglycemia Expected: 10/16/2021, Expires: 12/16/2021 [facility] Work Phone: Comment on above: Expected: 10/16/2021, Expires: 2 Start: 10-16-2021 End: 12-16-2021 Hemoglobin A1c in Blood HGB A1C Lab Routine Steroid-induced hyperglycemia Expected: 10/16/2021, Expires: 12/16/2021 [facility] Work Phone: Comment on above: Expected: 10/16/2021, Expires: 2 Start: 10-14-2021 End: 12-14-2021 ALBUMIN/CREAT RATIO RND UR ALBUMIN/CREAT RATIO RND UR Lab Routine Type 2 diabetes mellitus without complication, unspecified whether watermaster insulin use (HCC) Expected: 10/14/2021, Expires: 12/14/2021 [facility] Work Phone: Comment on above: Expected: 10/14/2021, Expires: 2 Start: 10-14-2021 End: 12-14-2021 SCHEDULE LAB TESTING SCHEDULE LAB TESTING Lab Routine Expected: 10/14/2021, Expires: 12/14/2021 [facility] Work Phone: Comment on above: Expected: 10/14/2021, Expires: 2 Start: 09-23-2021 End: 11-23-2021 HEPATIC FUNCTION PNL HEPATIC FUNCTION PNL Lab Routine Autoimmune hepatitis (HCC) Expected: 09/23/2021, Expires: 11/23/2021 [facility] Work Phone: Comment on above: Expected: 09/23/2021, Expires: 2 Start: 09-23-2021 End: 11-23-2021 VITAMIN D 25 HYDROXY VITAMIN D 25 HYDROXY Lab Routine Autoimmune hepatitis (HCC) Hepatic sclerosis Expected: 09/23/2021, Expires: 11/23/2021 [facility] Work Phone: Comment on above: Expected: 09/23/2021, Expires: 2 Start: 09-07-2021 COVID-19 VACCINE (5 - Booster for Pfizer series) COVID-19 VACCINE (5 - Booster for Pfizer series) [facility] Start: 07-05-2021 Hepatitis B screening URINE ALBUMIN:CREATININE RATIO [facility] Start: 04-20-2021 Hemoglobin A1c/Hemoglobin.total in Blood HBA1C [facility] Start: 03-22-2021 ADVANCE DIRECTIVE DISCUSSION ADVANCE DIRECTIVE DISCUSSION [facility] Start: 03-22-2021 DEPRESSION ASSESSMENT DEPRESSION ASSESSMENT [facility] Start: 09-25-2016 PNEUMOCOCCAL: 65+ (3 - PCV) PNEUMOCOCCAL: 65+ (3 - PCV) [facility] Start: 03-22-2013 Medicare Annual Wellness Visit Medicare Annual Wellness Visit [facility] Start: 1993 COLOGUARD (FIT-DNA) COLOGUARD (FIT-DNA) [facility] Start: [address] COLONOGRAPHY [facility] Start: 1993 FECAL OCCULT BLOOD FECAL OCCULT BLOOD [facility] Start: 1993 Screening for malignant neoplasm of colon [facility] Start: 1993 SIGMOIDOSCOPY SIGMOIDOSCOPY [facility] Start: 1966 BP CONTROLLED (<130/80) BP CONTROLLED (<130/80) [facility] End: 10-13-2022 25-hydroxyvitamin D3 [Mass/volume] in Serum or Plasma VITAMIN D 25 HYDROXY Lab Routine Autoimmune hepatitis (HCC) Liver disease, unspecified Every 6 months for 4 Occurrences starting 10/13/2021 until 10/13/2022 [facility] Work Phone: Comment on above: Every 6 months for 4 Occurrences startin g 10/13/2021 until 10/13/2022 End: 10-13-2022 Hvtoz-[id number] [Mass/volume] in Serum or Plasma ALPHA FETOPROTEIN BL Lab Routine Autoimmune hepatitis (HCC) Every 6 months for 3 Occurrences starting 10/13/2021 until 10/13/2022 [facility] Work Phone: Comment on above: Every 6 months for 3 Occurrences startin g 10/13/2021 until 10/13/2022 Bacteria identified in Urine by Culture BACTERIAL CULTURE, URINE Microbiology Routine Microscopic hematuria 04/14/2024 2:21 PM EST [facility] Work Phone: End: 10-30-2024 BD DXA TRABECULAR BONE SCORE (TBS) BD DXA TRABECULAR BONE SCORE (TBS) Radiology Routine Encounter for screening for osteoporosis Liver disease Autoimmune hepatitis (HCC) 1 Occurrences starting 10/01/2023 until 10/30/2024 [facility] Comment on above: 1 Occurrences starting 10/01/2023 until 10/30/2024 End: 10-13-2022 CBC panel - Blood by Automated count CBC Lab Routine Autoimmune hepatitis (HCC) Every 6 months for 3 Occurrences starting 10/13/2021 until 10/13/2022 [facility] Work Phone: Comment on above: Every 6 months for 3 Occurrences startin g 10/13/2021 until 10/13/2022 End: 04-12-2025 CBC panel - Blood by Automated count COMPLETE BLOOD COUNT Lab Routine Stage 3a chronic kidney disease (HCC) Every 3 months for 8 Occurrences starting 04/12/2024 until 04/12/2025 [facility] Comment on above: Every 3 months for 8 Occurrences startin g 04/12/2024 until 04/12/2025 End: 07-07-2024 CBC W Auto Differential panel - Blood COMPLETE BLOOD COUNT AND DIFFERENTIAL Lab Routine Iron deficiency anemia due to chronic blood loss Every 6 weeks for 12 Occurrences starting 07/08/2023 until 07/07/2024, 1 completed [facility] Work Phone: Comment on above: Every 6 weeks for 12 Occurrences startin g 07/08/2023 until 07/07/2024, 1 completed End: 07-12-2025 CBC W Auto Differential panel - Blood COMPLETE BLOOD COUNT AND DIFFERENTIAL Lab Routine Iron deficiency anemia due to chronic blood loss Thrombocytopenia Once per month for 12 Occurrences starting 07/12/2024 until 07/12/2025 [facility] Work Phone: Comment on above: Once per month for 12 Occurrences starti ng 07/12/2024 until 07/12/2025 End: 07-14-2025 CBC W Auto Differential panel - Blood COMPLETE BLOOD COUNT AND DIFFERENTIAL Lab Routine Thrombocytopenia Chronic ITP (idiopathic thrombocytopenia) (HCC) Once per week for 66 Occurrences starting 07/14/2024 until 07/14/2025, 1 completed [facility] Comment on above: Once per week for 66 Occurrences startin g 07/14/2024 until 07/14/2025, 1 completed End: 10-13-2025 CBC W Auto Differential panel - Blood COMPLETE BLOOD COUNT AND DIFFERENTIAL Lab Routine Iron deficiency anemia due to chronic blood loss Thrombocytopenia Every other week for 24 Occurrences starting 10/13/2024 until 10/13/2025 [facility] Work Phone: Comment on above: Every other week for 24 Occurrences star ting 10/13/2024 until 10/13/2025 End: 10-13-2022 Comprehensive metabolic 2000 panel - Serum or Plasma COMP METABOLIC PANEL Lab Routine Autoimmune hepatitis (HCC) Every 6 months for 3 Occurrences starting 10/13/2021 until 10/13/2022 [facility] Work Phone: Comment on above: Every 6 months for 3 Occurrences startin g 10/13/2021 until 10/13/2022 End: 07-12-2025 Comprehensive metabolic 2000 panel - Serum or Plasma COMPREHENSIVE METABOLIC PANEL Lab Routine Iron deficiency anemia due to chronic blood loss Thrombocytopenia Once per month for 12 Occurrences starting 07/12/2024 until 07/12/2025 [facility] Comment on above: Once per month for 12 Occurrences starti ng 07/12/2024 until 07/12/2025 COVID & INFLUENZA A/ B & RSV PCR, ROUTINE COVID & INFLUENZA A/B & RSV PCR, ROUTINE Microbiology Routine URI, acute 04/14/2024 2:48 PM EST [facility] End: 03-18-2024 Ct abdomen w/contrast material CT LIVER W IVCON Radiology Routine Liver lesion 1 Occurrences starting 02/17/2023 until 03/18/2024 [facility] Work Phone: Comment on above: 1 Occurrences starting 02/17/2023 until 03/18/2024 End: 11-02-2025 CT Cervical spine WO contrast CT CERVICAL SPINE WO IVCON Radiology Routine Spinal stenosis of cervical region 1 Occurrences starting 10/03/2024 until 11/02/2025 [facility] Work Phone: Comment on above: 1 Occurrences starting 10/03/2024 until 11/02/2025 End: 10-30-2024 CT Liver W contrast IV CT LIVER W IVCON Radiology Routine Liver disease 1 Occurrences starting 10/01/2023 until 10/30/2024 [facility] Comment on above: 1 Occurrences starting 10/01/2023 until 10/30/2024 End: 09-06-2025 CTA Abdominal vessels and Pelvis vessels W contrast IV CTA ABD/PEL W IVCON Radiology Routine Portal vein thrombosis 1 Occurrences starting 08/07/2024 until 09/06/2025 [facility] Work Phone: Comment on above: 1 Occurrences starting 08/07/2024 until 09/06/2025 End: 07-24-2022 Dup-scan artl lovely abdl/pel/scrot&/rpr orgn com US DOPPLER COMPLETE Radiology Routine Autoimmune hepatitis (HCC) 1 Occurrences starting 06/24/2021 until 07/24/2022 [facility] Work Phone: Comment on above: 1 Occurrences starting 06/24/2021 until 07/24/2022 End: 11-12-2022 Dup-scan artl lovely abdl/pel/scrot&/rpr orgn com US DOPPLER COMPLETE Radiology Routine Autoimmune hepatitis (HCC) 1 Occurrences starting 10/13/2021 until 11/12/2022 [facility] Work Phone: Comment on above: 1 Occurrences starting 10/13/2021 until 11/12/2022 End: 10-23-2023 Dup-scan artl lovely abdl/pel/scrot&/rpr orgn com US DOPPLER COMPLETE Radiology Routine Autoimmune hepatitis (HCC) 1 Occurrences starting 09/23/2022 until 10/23/2023 [facility] Work Phone: Comment on above: 1 Occurrences starting 09/23/2022 until 10/23/2023 End: 10-30-2024 DXA Skeletal system.axial Views for bone density DXA-AXIAL SKELETON Radiology Routine Encounter for screening for osteoporosis Liver disease Autoimmune hepatitis (HCC) Localized osteoporosis ([place]) 1 Occurrences starting 10/01/2023 until 10/30/2024 [facility] Comment on above: 1 Occurrences starting 10/01/2023 until 10/30/2024 End: 05-21-2023 ECG COMPLETE ECG COMPLETE ECG Routine HOCM (hypertrophic obstructive cardiomyopathy) (HCC) 1 Occurrences starting 05/20/2022 until 05/21/2023 [facility] Work Phone: Comment on above: 1 Occurrences starting 05/20/2022 until 05/21/2023 End: 07-08-2023 ECG COMPLETE ECG COMPLETE ECG Routine Hypertrophic obstructive cardiomyopathy (HOCM) (HCC) 1 Occurrences starting 07/07/2022 until 07/08/2023 [facility] Work Phone: Comment on above: 1 Occurrences starting 07/07/2022 until 07/08/2023 ECG COMPLETE ECG COMPLETE ECG 03/04/2023 9:57 AM EST [facility] End: 11-20-2022 Echocardiography ECHO Cardiology Routine Hypertrophic obstructive cardiomyopathy (HOCM) (HCC) S/P ICD (internal cardiac defibrillator) procedure 1 Occurrences starting 10/20/2021 until 11/20/2022 [facility] Work Phone: Comment on above: 1 Occurrences starting 10/20/2021 until 11/20/2022 End: 07-14-2023 Echocardiography ECHO Cardiology Routine Hypertrophic obstructive cardiomyopathy (HOCM) (HCC) 1 Occurrences starting 07/13/2022 until 07/14/2023 [facility] Work Phone: Comment on above: 1 Occurrences starting 07/13/2022 until 07/14/2023 End: 05-08-2025 Echocardiography ECHO Cardiology Routine Other hypertrophic cardiomyopathy (HCC) 1 Occurrences starting 05/08/2024 until 05/08/2025 [facility] Work Phone: Comment on above: 1 Occurrences starting 05/08/2024 until 05/08/2025 End: 07-07-2024 Ferritin [Mass/volume] in Serum or Plasma FERRITIN Lab Routine Iron deficiency anemia due to chronic blood loss Every 6 weeks for 12 Occurrences starting 07/08/2023 until 07/07/2024, 1 completed [facility] Comment on above: Every 6 weeks for 12 Occurrences startin g 07/08/2023 until 07/07/2024, 1 completed End: 07-12-2025 Ferritin [Mass/volume] in Serum or Plasma FERRITIN Lab Routine Iron deficiency anemia due to chronic blood loss Thrombocytopenia Once per month for 12 Occurrences starting 07/12/2024 until 07/12/2025, 1 completed [facility] Comment on above: Once per month for 12 Occurrences starti ng 07/12/2024 until 07/12/2025, 1 completed Gastrointestinal pathogens panel - Stool by MARILYN with probe detection [facility] End: 10-13-2022 IgG [Mass/volume] in Serum or Plasma IGG Lab Routine Autoimmune hepatitis (HCC) Every 6 months for 4 Occurrences starting 10/13/2021 until 10/13/2022 [facility] Work Phone: Comment on above: Every 6 months for 4 Occurrences startin g 10/13/2021 until 10/13/2022 End: 07-19-2024 IMMATURE PLATELET FRACTION IMMATURE PLATELET FRACTION Lab Routine Thrombocytopenia (HCC) Once per month for 12 Occurrences starting 07/20/2023 until 07/19/2024 [facility] Comment on above: Once per month for 12 Occurrences starti ng 07/20/2023 until 07/19/2024 End: 07-07-2024 Iron and Iron binding capacity panel - Serum or Plasma IRON AND TIBC Lab Routine Iron deficiency anemia due to chronic blood loss Every 6 weeks for 12 Occurrences starting 07/08/2023 until 07/07/2024, 1 completed [facility] Comment on above: Every 6 weeks for 12 Occurrences startin g 07/08/2023 until 07/07/2024, 1 completed End: 07-12-2025 Iron and Iron binding capacity panel - Serum or Plasma IRON AND TIBC Lab Routine Iron deficiency anemia due to chronic blood loss Thrombocytopenia Once per month for 12 Occurrences starting 07/12/2024 until 07/12/2025, 1 completed [facility] Comment on above: Once per month for 12 Occurrences starti ng 07/12/2024 until 07/12/2025, 1 completed Lactoferrin [Presenc e] in Stool by Immunoassay [facility] Liver ultrasound attenuation by transient elastography DDI VIBRATION CONTROLLED TRANSIENT ELASTOGRAPHY (VCTE) Endoscopy Routine Autoimmune hepatitis (HCC) Ordered: 06/15/2023 [facility] Work Phone: Comment on above: Ordered: 06/15/2023 End: 08-20-2022 Mri abdomen w/o & w/contrast material MRI LIVER WO/W IVCON Radiology Routine Liver lesion 1 Occurrences starting 07/21/2021 until 08/20/2022 [facility] Work Phone: Comment on above: 1 Occurrences starting 07/21/2021 until 08/20/2022 MYELOID NGS PANEL PERIPHERAL BLOOD MYELOID NGS PANEL PERIPHERAL BLOOD Lab Routine Thrombocytopenia 07/14/2024 3:53 PM EDT [facility] Njx dx/ther agt pvrt facet jt crv/thrc 1 level NJX DX/THER AGT PVRT FACET JT CRV/THRC 1 LEVEL Procedures Routine Cervical spondylosis 1 Occurrences starting 10/10/2024 [facility] Work Phone: Comment on above: 1 Occurrences starting 10/10/2024 Njx dx/ther agt pvrt facet jt crv/thrc 2nd level NJX DX/THER AGT PVRT FACET JT CRV/THRC 2ND LEVEL Procedures Routine Cervical spondylosis 1 Occurrences starting 10/10/2024 [facility] Comment on above: 1 Occurrences starting 10/10/2024 Ova and parasites identified in Unspecified specimen by Light microscopy [facility] Patient Education [facility] Work Phone: Patient referral [facility] Work Phone: PHOTODYNAMIC THERAPY PHOTODYNAMI C THERAPY Procedures Routine AK (actinic keratosis) Ordered: 05/11/2023 [facility] Work Phone: Comment on above: Ordered: 05/11/2023 PROTEIN ELECTROPHORE SIS SERUM W/INTERP PROTEIN ELECTROPHORESIS SERUM W/INTERP Lab Routine MGUS (monoclonal gammopathy of unknown significance) 07/14/2024 3:53 PM EDT [facility] End: 04-12-2025 Protein/Creatinine [Mass Ratio] in Urine PROTEIN / CREATININE RATIO Lab Routine Stage 3a chronic kidney disease (HCC) Every 3 months for 8 Occurrences starting 04/12/2024 until 04/12/2025 [facility] Comment on above: Every 3 months for 8 Occurrences startin g 04/12/2024 until 04/12/2025 End: 10-13-2022 PT panel - Platelet poor plasma by Coagulation assay PROTHROMBIN TIME/PT Lab Routine Autoimmune hepatitis (HCC) Every 6 months for 3 Occurrences starting 10/13/2021 until 10/13/2022 [facility] Work Phone: Comment on above: Every 6 months for 3 Occurrences startin g 10/13/2021 until 10/13/2022 End: 04-12-2025 Renal function 2000 panel - Serum or Plasma RENAL FUNCTION PANEL Lab Routine Stage 3a chronic kidney disease (HCC) Every 3 months for 8 Occurrences starting 04/12/2024 until 04/12/2025 [facility] Comment on above: Every 3 months for 8 Occurrences startin g 04/12/2024 until 04/12/2025 SURGICAL PATHOLOGY S KIN ONLY [facility] Work Phone: Comment on above: Release Upon Ordering for 1 Occurrences starting 05/11/2023, 1 completed End: 04-12-2025 Urinalysis complete panel - Urine URINALYSIS, WITH MICROSCOPIC Lab Routine Stage 3a chronic kidney disease (HCC) Every 3 months for 8 Occurrences starting 04/12/2024 until 04/12/2025 [facility] Comment on above: Every 3 months for 8 Occurrences startin g 04/12/2024 until 04/12/2025 End: 07-24-2022 US ABD LIVER VASCULAR US ABD LIVER VASCULAR Radiology Routine Autoimmune hepatitis (HCC) 1 Occurrences starting 06/24/2021 until 07/24/2022 [facility] Work Phone: Comment on above: 1 Occurrences starting 06/24/2021 until 07/24/2022 End: 11-12-2022 US ABD LIVER VASCULAR US ABD LIVER VASCULAR Radiology Routine Autoimmune hepatitis (HCC) 1 Occurrences starting 10/13/2021 until 11/12/2022 [facility] Work Phone: Comment on above: 1 Occurrences starting 10/13/2021 until 11/12/2022 End: 10-23-2023 US ABD LIVER VASCULAR US ABD LIVER VASCULAR Radiology Routine Autoimmune hepatitis (HCC) 1 Occurrences starting 09/23/2022 until 10/23/2023 [facility] Work Phone: Comment on above: 1 Occurrences starting 09/23/2022 until 10/23/2023 End: 05-13-2025 US Kidney - bilateral and Urinary bladder US KIDNEY/BLADDER Radiology Routine Stage 3a chronic kidney disease (HCC) 1 Occurrences starting 04/12/2024 until 05/13/2025 [facility] Comment on above: 1 Occurrences starting 04/12/2024 until 05/13/2025 End: 07-14-2024 US.doppler Abdominal vessels US ABD LIVER VASCULAR Radiology Routine Iron deficiency anemia due to chronic blood loss 1 Occurrences starting 06/15/2023 until 07/14/2024 [facility] Work Phone: Comment on above: 1 Occurrences starting 06/15/2023 until 07/14/2024 End: 07-14-2024 US.doppler Unspecified body region US DOPPLER COMPLETE Radiology Routine Iron deficiency anemia due to chronic blood loss 1 Occurrences starting 06/15/2023 until 07/14/2024 [facility] Work Phone: Comment on above: 1 Occurrences starting 06/15/2023 until 07/14/2024 XR Knee - left 4 Views XR KNEE G ENERAL 4V AP BOTH/PA BOTH/LAT/MERC LEFT Radiology Routine Left knee pain, unspecified chronicity 02/14/2024 10:09 AM EST [facility] Work Phone: [facility] Immunizations Immunization Date Immunization Notes Care Provider Mady jensen 09-28-2024 tetanus toxoid, redu sherron diphtheria toxoid, and acellular pertussis vaccine, adsorbed Davis May MD Work Phone: [facility] 12-14-2023 Seasonal trivalent influenza vaccine, adjuvanted, preservative free Davis May MD Work Phone: [facility] 12-14-2023 influenza virus vaccine, unspecified formulation Josefa Ladd MD Work Phone: [facility] 01-26-2023 respiratory syncytia l virus (RSV) vaccine, adjuvanted (AREXVY) Nova Shahid MD Work Phone: [facility] 01-15-2023 influenza (HD-IIV4) vaccine, age 65+ yr, high dose, quadrivalent, PF (FLUZONE HIGH-DOSE) Nova Shahid MD Work Phone: [facility] 01-15-2023 influenza virus vaccine, unspecified formulation Evelin Reich APRN.CNP Work Phone: [facility] 10-18-2022 COVID-19 vaccine, ag e 12+ yr, bivalent (INNOBINTECH) Derrek Bear MD Work Phone: [facility] 03-23-2022 COVID-19 booster vaccine, age 12+ yr, bivalent (tarpipe-BIONTECH) Davis May MD Work Phone: [facility] 01-16-2022 influenza, high-dose , quadrivalent vaccine (FLUZONE HIGH DOSE QUADRIVALENT) Davis May MD Work Phone: [facility] 01-16-2022 influenza virus vaccine, unspecified formulation Davis May MD Work Phone: [facility] 11-04-2021 influenza (aIIV4) vaccine, age 65+ yr, quadrivalent, PF (FLUAD QUADRIVALENT) Davis May MD Work Phone: [facility] 10-22-2021 pneumococcal (PCV20) vaccine, 20 valent (PREVNAR 20) Davis May MD Work Phone: [facility] 11-18-2020 influenza virus vaccine, unspecified formulation Davis May MD Work Phone: [facility] 11-08-2020 COVID-19 vaccine, ag e 12+ yr (PFIZER-BIONTECH - PURPLE TOP) Nova Shahid MD Work Phone: [facility] 05-17-2020 COVID-19 vaccine, ag e 12+ yr (PFIZER-BIONTECH - PURPLE TOP) Nova Shahid MD Work Phone: [facility] 04-26-2020 COVID-19 vaccine, ag e 12+ yr (PFIZER-BIONTECH - PURPLE TOP) Nova Shahid MD Work Phone: [facility] 11-27-2019 influenza virus vaccine, unspecified formulation Nova Shahid MD Work Phone: [facility] 11-24-2019 influenza (HD-IIV4) vaccine, age 65+ yr, high dose, quadrivalent, PF (FLUZONE HIGH-DOSE) Davis May MD Work Phone: [facility] 11-24-2019 influenza, high dose seasonal, preservative-free Nova Shahid MD Work Phone: [facility] 08-29-2019 hepatitis B vaccine, adult dosage Nova Shahid MD Work Phone: [facility] Work Phone: 04-13-2019 typhoid vaccine, unspecified formulation Nova Shahid MD Work Phone: [facility] 03-28-2019 zoster vaccine recombinant Nova Shahid MD Work Phone: [facility] 01-19-2019 hepatitis B vaccine, adult dosage Nova Shahid MD Work Phone: [facility] Work Phone: 01-18-2019 zoster vaccine recombinant Nova Shahid MD Work Phone: [facility] 12-20-2018 Hepatitis B vaccine (recombinant), CpG adjuvanted Nova Shahid MD Work Phone: [facility] 11-08-2018 Seasonal trivalent influenza vaccine, adjuvanted, preservative free Nova Shahid MD Work Phone: [facility] 12-02-2017 influenza, high dose seasonal, preservative-free Nova Shahid MD Work Phone: [facility] 12-14-2016 influenza, high dose seasonal, preservative-free Nova Shahid MD Work Phone: [facility] 09-26-2015 pneumococcal conjuga te vaccine, 13 valent Nova Shahid MD Work Phone: [facility] 09-26-2015 pneumococcal polysaccharide vaccine, [address] (I-Stat) Work Phone: [facility] 09-07-2014 tetanus toxoid, redu sherron diphtheria toxoid, and acellular pertussis vaccine, adsorbed Nova Shahid MD Work Phone: [facility] 09-05-2013 pneumococcal polysaccharide vaccine, 23 valent Nova Shahid MD Work Phone: [facility] Payers Date Payer Category Payer Self-pay [id number] 2017 Private Health Insurance [facility] AARP SUPPLEMENT [id number] 2017-Present [phone] [address] [place] [address] Indemnity [id number] 2017 Private Health Insurance [id number] 2017 Unknown [id number] 2013 Medicare MEDICARE MEDICAR E A AND B [id number] 2013-Present [phone] [address] [address] [place] [address] Medicare [id number] 2013 Medicare [id number] 2013 Medicare [id number] Medicare [id number] Unknown [id number] Unknown [id number] Unknown [id number] Unknown [id number] Unknown [id number] Unknown [id number] Social History Date Type Detail Facility Start: 09-05-2019 End: 01-05-2025 Tobacco smoking status NHIS Ex-smoker [facility] End: 07-06-2019 History of tobacco use Current smoker [facility] End: 07-06-2019 History of tobacco use Cigar Smoker [facility] Start: 09-05-2019 End: 03-24-2023 Tobacco use and exposure Smokeless tobacco non-user [facility] Start: 04-16-2021 End: 10-03-2024 Alcohol intake Ex-drinker (finding) [facility] Start: 04-16-2021 End: 08-07-2022 Alcohol intake [facility] Start: 04-11-2020 History SDOH Alcohol Frequency 2 [facility] Start: 04-11-2020 History SDOH Alcohol Std Drinks 1 [facility] Start: 04-11-2020 History SDOH Social Connections Phone 5 [facility] Start: 04-11-2020 History SDOH Social Connections Meetings 3 [facility] Start: 04-11-2020 History SDOH Physical Activity DPW 4 [facility] Start: 04-11-2020 Education 17 [facility] Start: 07-14-2017 End: 12-22-2021 Tobacco Comment 07/14/17: occasional cigar + 2 cigarettes per week [facility] Start: 1950 Sex Assigned At Male [facility] Start: 04-22-2021 End: 12-22-2021 Exposure to SARS-CoV-2 (event) Not sure [facility] Start: 06-14-2021 End: 07-28-2021 Exposure to SARS-CoV-2 (event) Unable to assess [facility] Start: 04-11-2020 End: 08-07-2022 Social connection and isolation panel [facility] Do you belong to any clubs or organizations such as gnosticism groups, unions, fraternal or athletic groups, or school groups? Yes [facility] Are you now , , , , never or living with a partner? [facility] How often to you hav e a drink containing alcohol? Monthly or less [facility] How many standard dr inks containing alcohol do you have on a typical day? 1 or 2 [facility] How often do you hav e 6 or more drinks on 1 occasion? Never [facility] Start: 02-26-2017 How hard is it for you to pay for the very basics like food, housing, medical care, and heating Not hard at all [facility] Do you feel stress - tense, restless, nervous, or anxious, or unable to sleep at night because your mind is troubled all the time - these days [OSQ] Only a little [facility] (I/We) worried edwige er (my/our) food would run out before (I/we) got money to buy more. Never true [facility] In the past 12 month s, was there a time when you were not able to pay the mortgage or rent on time? No [facility] Start: 08-19-2018 Gender identity Identifies as male gender (finding) [facility] Start: 08-19-2018 Sexual orientation Heterosexual (finding) [facility] Start: 03-26-2023 End: 03-27-2023 Tobacco smoking status NHIS Unknown if ever smoked [facility] Start: 08-20-2019 Cigars [facility] Medical Equipment Procedure Code Equipment Code [...] SUPER 7 SPEEDBAND/ LIGATOR FDA Start: 03-27-2023 [place] Push[place] 4.5mm Peek 28mm Suture Self Punch Sterile Disposable - [id number]_[facility] Start: 06-02-2017 Post Hemicap 12m m Ovoid 32mm Taper Sterile Latex Free Shoulder - [id number] Start: 06-02-2017 Hemicap Resurfac ing System Articular 19mm X 20mm Head Size 52-44mm [id number] Start: 06-02-2017 Component Hemicapovo Ovoid Offset Cocr Titanium [id number] Humeral Cannulated - [id number] Start: 06-02-2017 USE WITH INSULIN PENS 1 TIME(S) DAILY [id number] Start: 03-24-2023 Comment on above: USE WITH INSULIN PEN S 1 TIME(S) DAILY [id number] Energen [id number]_[facility] Start: 08-16-2012 [id number] Endo elodia [place] 4-Site G [id number]_[facility] Start: 08-16-2012 [id number] Dext juan r [id number]_[facility] Start: 08-16-2012 Goals Date Patient Goal Desired Activity /State Personal health goal Personal health goal Functional Status Date Assessment Result Facility 03-31-2024 Are you deaf, or do you have serious difficulty hearing No 03/31/2024 11:32 AM Annette Brownlee, RAMNI No [facility] 03-31-2024 Are you blind, or do you have serious difficulty seeing, even when wearing glasses No 03/31/2024 11:32 AM Annette Brownlee, RAMIN No [facility] 03-31-2024 Do you have serious difficulty walking or climbing stairs No 03/31/2024 11:32 AM Annette Brownlee, RAMIN No [facility] 03-31-2024 Do you have difficul ty dressing or bathing No 03/31/2024 11:32 AM Annette Brownlee, RAMIN [facility] 03-31-2024 Because of a physica l, mental, or emotional condition, do you have difficulty doing errands alone such as visiting a physician's office or shopping No 03/31/2024 11:32 AM Annette Brownlee, RAMIN No [facility] 03-29-2023 Functional status Activity Abili ty Independent [facility] Work Phone: 03-29-2023 Functional status Ambulates;Up ad neymar [facility] Work Phone: Mental Status Date Assessment Result Facility 01-05-2025 Cognitive function Level Of Cons ciousness Awake [facility] Work Phone: 08-06-2024 Cognitive function Level Of Cons ciousness Awake;Alert;Appropriate;Fol lows Commands [facility] Work Phone: 03-31-2024 Because of a physica l, mental, or emotional condition, do you have serious difficulty concentrating, remembering, or making decisions No 03/31/2024 11:32 AM Annette Brownlee, RAMIN No [facility] 03-29-2023 Cognitive function Touch/Shaking [facility] Work Phone: Clinical Notes 07-02-2020 to 01-06-2025 Note Date & Type Note Facility 01-06-2025 Discharge summary [facility] 01-06-2025 Radiology Diagnostic study note [facility] Imaging Services [address] [place] [address] Chest PA and Lateral MR#: [id number] Acct: [id number] Name: PARKER YI Rep #: [id number] : 1950 M 74 From: Galo Anaya MD PCP: Dr. Davis May MD Status: REG E R Study:Chest PA and Lateral Date of Exam: 01/05/25 Exam# [id number] Ordering Dr: Love Mojica DO PROCEDURE: CHEST PA AND LATERAL 01/05/2025 REASON FOR EXAM: COUGH TECHNIQUE: Procedure Code: RADCXR Modality: DX Procedure: CHEST PA AND LATERAL COMPARISON: None. FINDINGS: Devices: Left chest wall dual lead ICD in appropriate positioning. Lungs/Pleura: Clear. No pneumothorax or sizable pleural effusion. Heart/Mediastinum: Mildly enlarged. No significant vascular congestion. Bones/Soft tissues: Degenerative changes of the spine. Left humeral head prosthesis. RAD/Chest PA and Lateral IMPRESSION: Mild cardiomegaly. No appreciable airspace consolidation or pleural effusion. Reading Location: [id number] CC: Dr. Davis May MD; Lonnie Mojica DO ~ Financial Services Education Consultant: Signed [facility] 01-05-2025 Discharge summary Note Date/Time January 06, 2025 12:53am [facility] Medical Records Department [address] [place] [address] Emergency Department Summary 01/05/25 MR#: [id number] Acct: [id number] Name: PARKER YI Rep #:[id number] : 1950 74 From: Lonnie Mojica DO PCP: Dr. Davis May MD Status:DEP E R Location: ED HPI History of Present Illness Chief Complaint: Cold Sx Informant: patient and spouse/S.O. Narrative Narrative: Patient is a 74-year-old male with past medical history of autoimmune hepatitis and hypertension on immunosuppressive medication. He and his state they recently were on a cruise which they flew to and from. After returning from the cruise the patient began with increased congestion and cough. He denies any fevers associated with this. He states that he has concern for pneumonia as these types of symptoms have led to that in the past. He denies any history of lung pathology however such as asthma COPD or emphysema. He also denies any known sick contacts but with his recent vacation he is sure he was around other individuals who may have been sick. Secondary to concern for developing infection he presents for evaluation. [facility] Medical History Portal vein thrombosis Esophageal varices GERD (gastroesophageal reflux disease) HTN (hypertension) Hypertrophic cardiomyopathy Autoimmune hepatitis History of immunosuppression therapy Thrombocytopenia Home Medications ?Medication ?Instructions ?Recorded ?Last Taken ?Type clonidine HCl 0.1 mg tablet 1.5 tab PO BID 08/20/19 Un known History tacrolimus 1 mg capsule, 1 mg PO BID supplement 08/19 Unknown History immediate-release amlodipine 5 mg tablet 5 mg PO DAILY blood pressure 03/27/23 Unknown History metoprolol succinate 100 mg 100 mg PO Q12H heart 03/27 Unknown History tablet,extended release 24 hr mycophenolate mofetil 500 mg 500 mg PO BID organ rejec tion 03/27/23 Unknown History tablet (CellCept) Held on 03/29/23. Instructions: Hold for 7 days. Follow-up with Dr. Bear. probenecid 500 mg tablet 500 mg PO BID gout 03/27/23 Unknown History pantoprazole 40 mg tablet,delayed 40 mg PO BID #60 tab s 03/29/23 Unknown Rx release (Protonix) cyclobenzaprine 5 mg tablet 5 mg PO TID PRN muscle spa sm 3 08/06/24 Unknown Rx days #9 tabs doxycycline hyclate 100 mg capsule 100 mg PO BID 10 da ys #20 caps 01/05/25 Unknown Rx Allergy/AdvReac Type Severity Reaction Status Date / Time acetaminophen (From Vicodin) Allergy Anaphylaxis Verified 01/05/25 20:21 hydrocodone (From Vicodin) Allergy Anaphylaxis Verified 01/05/25 20:21 lidocaine Allergy Rash Verified 01/05/25 20:21 NSAIDS (Non-Steroidal Allergy Other Verified 01/05/25 20:21 Anti-Inflamma oxycodone Allergy Anaphylaxis Verified 01/05/25 20:21 Family History no significant family his Social History Smoking Status: Former smoker ROS ROS ED Constitutional Constitutional ED: Denies chills or fever(s) Eyes Eyes: Denies change in vision ENT ENT ED: Reports rhinorrhea and sore throat Cardiovascular Cardiovascular: Denies chest pain Respiratory/Chest Respiratory/Chest: Reports cough; Denies dyspnea Gastrointestinal Gastrointestinal: Denies abdominal pain, diarrhea, nausea or vomiting Genitourinary Genitourinary ED: Denies dysuria Musculoskeletal Musculoskeletal: Denies myalgias Integumentary Denies rash Neurologic Neurologic: Denies headache(s) Allergic/Immunologic Allergic/Immunologic ED: Denies mouth swelling or tongue swelling EXAM Physical Exam Const Vital Signs: 01/05/25 20:17 01/05/25 22:06 Temperature 99.2 F H Temperature Source Oral Pulse Rate 67 Respiratory Rate 18 Respiratory Effort Normal Non-Labored Respiratory Pattern Normal Blood Pressure 133/74 H Blood Pressure Mean 93 Pulse Ox 96 Oxygen Delivery Method Room Air Positive well nourished and well developed General Appearance ED: well developed; Negative for pallor HEENT HEENT Narrative: Bilateral TMs are retracted but show no secondary findings to suggest infection and bilateral canals are normal Nasal mucosa is hyperemic and boggy with inflamed/enlarged inferior nasal turbinate No tongue or lip swelling no oral lesions no airway edema or compromise There is cobblestoning in the posterior pharynx consistent with sinus drainage Eyes PERRL and EOMs intact bilaterally General Eye ED: Negative for scleral icterus Neck supple and no JVD Chest Wall palpation of chest normal Resp normal respiratory effort Resp Narrative: Breath sounds are diminished throughout with rhonchi in the bilateral lower lobes left greater than right but no signs of respiratory distress Cardio regular rate and regular rhythm Extremity normal to inspection Extremity Narrative: No asymmetric edema no pitting edema negative Homans' sign bilaterally Neuro oriented x3, CN's II-XII intact bilaterally and no sensory deficits noted Sensorium / Orientation: alert Motor Exam: strength 5/5 throughout Psych mental status grossly normal Skin no rashes or lesions noted General Skin Exam: Negative for jaundice or pallor MDM MDM MDM Narrative Medical decision making narrative: Patient arrived to the ER with stable vitals and he is in no acute respiratory distress. With his recent flight and cruise ship vacation there is high likelihood for viral infection. Therefore a COVID influenza and RSV swab was obtained. This revealed no acute findings. With his reported cough and concernfor infection there is also possibility of pneumonia. Therefore chest x-ray wasadded. He does not have hypoxia or increased work of breathing he does not havevital sign changes to suggest sepsis and therefore I feel no need for blood workat this time. The patient's chest x-ray revealed no acute pneumonia and therefore the patient most likely has a viral URI. However because he is immunosuppressed I will cover him with antibiotics to ensure that we are not missing a early/developing infection. This plan of care was discussed with patient and and they are both agreeable to it. As he does not have signs of respiratory distress or hypoxia he is otherwise safe for discharge History & Record Review Discussion w/independent historian: Patient and Significant other Radiography Diagnostic Testing: Clinical Impression(s) from Imaging Studies Chest X-Ray 01/05/25 22:33 IMPRESSION: Mild cardiomegaly. No appreciable airspace consolidation or pleural effusion. Reading Location: [facility] 2 view chest x-ray as interpreted by the emergency medicine physician reveals noacute infiltrate pneumothorax or pleural effusion. Discharge Plan Triage Chief Complaint: Cold Sx ED Provider: Lonnie Mojica Dx/Rx/DC Orders Clinical Impression: Viral upper respiratory tract infection with cough, Autoimmune hepatitis, Hypertension Instructions: ED Upper Resp Infec Abx Tx Prescriptions: New doxycycline hyclate 100 mg capsule 100 mg PO BID 10 Days Qty: 20 0RF No Action clonidine HCl 0.1 MG tablet 1.5 tab PO BID tacrolimus 1 MG capsule 1 mg PO BID amlodipine 5 mg tablet 5 mg PO DAILY probenecid 500 mg tablet 500 mg PO BID mycophenolate mofetil [CellCept] 500 mg tablet 500 mg PO BID metoprolol succinate 100 mg tablet extended release 24 hr 100 mg PO Q12H pantoprazole [Protonix] 40 mg tablet,delayed release (DR/EC) 40 mg PO BID Qty: 60 2RF Rx Instructions: advised TWICE DAILY FOR 2 months THEN ONCE DAILY cyclobenzaprine 5 mg tablet 5 mg PO TID PRN (Reason: muscle spasm) 3 Days Qty: 9 0RF Primary Care Provider: Davis May Referrals: Davis May MD [Primary Care Provider, Medical] Activity Restrictions/Additional Instructions: Your viral swab for COVID influenza and RSV was negative. Your chest x-ray shows no acute pneumonia. However with your symptoms and immunosuppression there is concern for developing infection and therefore take the doxycycline/antibiotic as directed. If your symptoms are worsening or you have any further concerns please return to the ER for repeat evaluation. Print Language: Luxembourger Disposition Disposition: Home, Self Care Discharge Date/Time: 01/05/25 23:53 What to do if you have Problems For any increased pain, shortness of breath, bleeding, nausea or vomiting, chestpain, or any unexpected problems, contact your Primary Care Provider. Call [facility] ([phone]) or report to the closest Emergency Room. Call 911 if necessary. 01/06/25 0040 <Electronically signed by Lonnie Mojica DO> Cosigner Signature (if applicable): CC: Dr. Davis May MD ~ Signed [facility] Work Phone: 1(125) 897-777410-07-2025 Discharge summary Author Naif Damian [facility] Note Date/Time December 26, 2024 10 :59am [facility] Physical Therapy [facility] [address] [place] [address]. [address] [place] [address] / REHABILITATION SERVICES DISCHARGE SUMMARY MR#: [id number] Acct: [id number] Name: PARKER YI Rep #: [id number] : 1950 74 From: Naif Damian PT, ATC Referring DrMerrick: VERO Martínez Status: REG R Insurance: MEDICARE PART A B [facility] Patient Information Patient Information: PARKER YI was seen in my office for initial evaluation on 10/23/24. The following Plan of Care was established for this patient: POC Established Initial Frequency: 1x/Week Initial Duration: 1 Week Anticipated Interventions Patient/Client Instruction: Educate patient on: [...] For the Purpose of:: To decrease pain Last Seen Last Seen: This patient was last seen in our office . Pertinent comments regarding their Physical therapy will appear below: Pt has not returned for greater than 30 days and is discontinued at this time. At this point I will be discontinuing this patient from physical therapy. I would be happy to see this patient again in the future if found appropriate by the physician. Thank you! Naif Damian PT, ATC <Electronically signed by Naif Damian PT, ATC> 12/26/24 1059 CC: VERO Martínez; Dr. Davis May MD ~ [facility] Signed [facility] Work Phone: [phone]) 920-858510-07-2025 Discharge summary [facility] Physical Therapy [facility] [address] [place] [address] [address] [place] [address] / REHABILITATION SERVICES DISCHARGE SUMMARY MR#: [id number] Acct: [id number] Name: PARKER YI Rep #: [id number] : 1950 74 From: Naif Damian PT, ATC Referring Dr.: VERO Martínez Status: REG RCR Insurance: MEDICARE PART A B [facility] Patient Information Patient Information: PARKER YI was seen in my office for initial evaluation on 10/23/24. The following Plan of Care was established for this patient: POC Established Initial Frequency: 1x/Week Initial Duration: 1 Week Anticipated Interventions Patient/Client Instruction: Educate patient on: [...] For the Purpose of:: To decrease pain Last Seen Last Seen: This patient was last seen in our office . Pertinent comments regarding their Physical therapy willappear below: Pt has not returned for greater than 30 days and is discontinued at this time. At this point I will be discontinuing this patient from physical therapy. I would be happy to see this patient again in the future if found appropriate by the physician. Thank you! Naif Damian, PT, ATC 12/26/24 1059 CC: VERO Martínez; Dr. Davis May MD ~ [facility] Signed [facility]09-02-2025 Telephone encounter Note* Telephone Encounter - Elly Quintero Research Coordinator - 11/21/2024 2:37 PM EDT I contacted the patient regarding study IRB#[id number] [...] be on 01/30/2025 at 11 AM. Elly Quintero Research Coordinator [facility]09-02-2025 Miscellaneous Notes* Telephone Encounter - Elly Quintero Research Coordinator - 11/21/2024 2:37 PM EDT I contacted the patient regarding study IRB#[id number] [...] be on 01/30/2025 at 11 AM. Elly Quintero Research Coordinator [facility] History of Present illness Narrative* Jose Landry MD - 11/13/2024 11:02 AM EDT Images from the original note were not included. [facility] Department of Cardiovascular Medicine SECTION [...] every Wednesday, Wednesday, and Wednesday. Blood-Glucose Sensor (Whatser G7 SENSOR) wilmer CHANGE SENSOR EVERY 10 [...] 1 tablet by mouth once daily. Insulin Buckley, Disposable, (BD ULTRAFINE III MINI PEN) 31 [...] k/uL 0.80 (L) 0.94 (L) 0.92 (L) Brule% % 7.8 9.8 8.4 Abs Brule <0.87 k/uL 0.37 0.47 0.38 Eosin% % [...] patient. JOSE LANDRY M.D. documented [facility] Telephone encounter Note * Telephone Encounter - Roselia Heath MA - 11/10/2024 8:43 AM EDT Eliquis was refilled to [facility] on 04/24/24 for a year supply. Pt notified via [employer] to check with pharmacy. Roselia Heath MA [facility]08-22-2025 Miscellaneous Notes* Telephone Encounter - Roselia Heath MA - 11/10/2024 8:43 AM EDT [facility] for a year supply. Pt notified via [employer] to check with pharmacy. Roselia Heath MA documented in [facility] encounterMi[facility]08-19-[facility]25 History of Present illness Narrative* Ernesto Friedman RN - 11/07/2024 11:00 AM EDT Radiology Service Progress Note DATE OF [...] has insulin pump?: No., Known Chronic Kidney Disease(CKD), and History of Kidney surgery, Kidney neoplasm, Liver disease, and/or any recent NephrotoxicChemotherapy or other Nephrotoxic medications CREATININE: Creatinine Date [...] DATE: November 07, 2024 TIME: 10:53 AM * Rebeca Locke RT(R) - 11/07/2024 11:00 AM EDT Radiology Service Progress Note PATIENT [...] PATIENT PRESENTS WITH AN IMPLANTABLE OR ATTACHED SWEATER DESIGNER: No RADIOLOGY DEPARTMENT: CT; Exam(s) Completed: CTA Abdomen Pelvis PERIPHERAL IV DATA: Site assessment: Clean,Dry and Intact, Site disposition Discontinued SIGNED BY: RT Kezia(R) November 07, 2024 11:16 AM documented in [facility] encounterMi[facility]08-[facility]-2025 Telephone encounter Note * Telephone Encounter - Ambar Diaz MA - 11/03/2024 7:38 AM EDT Duplicate encounter. Closing encounter. [facility]08-15-2025 Miscellaneous Notes* Telephone Encounter - Ambar Diaz MA - 11/03/2024 7:38 AM EDT Duplicate encounter. Closing encounter. documented in [facility] encounterMi[facility]25 Telephone encounter Note * Telephone Encounter - Roxy Lemon RN - 11/02/2024 3:24 PM EDT Procedure: Right C3, C4, C5 Cervical Facet Procedure Date: 11/28/2024 Cardiac Clearance: Eliquis Cardiac Clearance letter generated and faxed to patient's PCP for approval to proceed with injection procedure and hold anticoagulation for recommending time frame. Fax confirmation received. Awaiting determination. [facility]08-14-2025 Miscellaneous Notes* Telephone Encounter - Roxy Lemon RN - 11/02/2024 3:24 PM EDT Procedure: Right C3, C4, C5 Cervical Facet Procedure Date: 11/28/2024 Cardiac Clearance: Eliquis Cardiac Clearance letter generated and faxed to patient's PCP for approval to proceed with injection procedure and hold anticoagulation for recommending time frame. Fax confirmation received. Awaiting determination. documented in this encounterMi[facility]08-[facility]25 History of Present illness Narrative* Anjali Fong, PACKAGER AND STRAPPER.ROAD INSPECTOR - 11/02/2024 1:18 PM EDT Subjective ///// Mateus Yi presents to [facility] for a follow up [...] conservative therapy (as tolerated and the details ofthis conservative therapy are documented elsewhere) Conservative therapy [...] bothered by emotional problems such as feeling anxious,depressed or irritable?: (!) Always In the past [...] Pain Scale: 3 (11/02/24 1330 : Anjali Fong, PACKAGER AND STRAPPER.ROAD INSPECTOR) OARRS Report: Not Reviewed: not applicable Plan Injection history was reviewed. Medication use and compliance were reviewed. 1. Reviewed procedure instructions. Handout given 2. No meds prescribed today 3. Interventional procedure options discussed. Ordered and scheduled right C3.4.5 cervical facet #1on 11/28 4. Continue regular home exercise program. 5) F/U in 2 weeks after the procedure. May be virtual The level of medical decision making for this encounter was low level. I spent a total of 25 minutes on the date of the service which included preparing to see the patient, [id number] patient care, completing clinical documentation, performing a medically appropriate examination, ordering medications, tests, or procedures, and care coordination (not separately report ed). 1. This document has been created with [...] ensuing treatment plans will be discussed during yourfollow-up appointment. If you do not have a follow-up appointment and wish to discuss any issues, please set up an appointment. 3. It is my practice to not fill disability or any other insurance-related forms/documentation. Allof the office notes, study results, and other [...] above and verbalized understanding. Anjali Fong APRN, ZORAIDA November 02, 2024 documented in this encounterMi[facility]07-25-[facility]25 History of Present illness Narrative* Liseth Ortiz DO - 10/13/2024 3:01 PM EDT Additional intake questions: Has the patient had fever, nausea, vomiting, diarrhea, constipation, fatigue for > 1 week? Yes, fatigue Does the patient have a decreased appetite? No Does patient want to see a Hospital Staff Pharmacist? No (yes to any of above refer patient to schedulers for dietitian appointment) ) Does patient have any new or increased numbness or tingling of extremities? No Is patient interested in fertility information? No Does patient need any prescription refills? No Does patient have an advanced directive in place? yes * Liseth Ortiz DO - 10/13/2024 3:00 PM EDT Images from the original note [...] July 14, 2024 he began Doptelet on Mon-Wed-Wed as his platelet had dropped below 60K. His platelet have since ranged from 70-90K. He remains on Eliquis bid since 03/29/24 as he was found on r outine imaging to have a non-occlusive port vein [...] at that time. He was admitted at [place] 03/27/23 with upper GI bleed and had [...] avoidsit. Vicodin [Hydrocodon* Anaphylaxis stopped breathing Hibiscus (Hibiscus [...] (Patient not taking: Reported on 06/18/2023) Insulin Buckley, Disposable, (BD ULTRAFINE III MINI PEN) 31 gauge x 3/16 USE WITH INSULIN PENS 1 TIME(S) DAILY Blood-Glucose Sensor (Whatser G7 SENSOR) wilmer CHANGE SENSOR EVERY 10 [...] 10 mL (BD POSIFLUSH) PREFERRED PHARMACY: e- [facility] [address] [place] [address] - [address] [facility] - [phone] [place] [address] e- [id number] [place] [address] - [address] [facility] - [phone] [facility] [address] [place] [address] [address] [facility] [address] e- [facility] [address] - [place] [address] - [address] - [phone] [address] [facility] [address] [facility] [address] [facility] [id number] [place] [address] PAST MEDICAL HISTORY Diagnosis Date Arthritis of [...] patient s labs and medical record from [facility]. LAB DATA: Basic Labs: Hemoglobin Date Value [...] with VKA drugs, such as warfarin, the [place] [employer] 2012 Guideline recommends [...] to 3.5 (target INR of 3). Freida MA, et al. Chest 2012, 141:7S-47S Bobbi ARZATE et lynn. [facility] 2017, 70: [phone] 03/31/2024 1.4 (H) 0.9 - 1.3 Final Comment: Vitamin K Antagonist (VKA) Therapeutic Range: INR 2 to 3 (Target INR of 2.5) Note: For patients treated with VKA drugs, such as warfarin, the [place] [employer] 2012 Guideline recommends [...] Chest 2012, 141:7S-47S Bobbi ARZATE et al. [facility] 2017, 70: [phone] 03/29/2024 1.3 0.9 - 1.3 Final Comment: Vitamin K Antagonist (VKA) Therapeutic Range: INR 2 to 3 (Target INR of 2.5) Note: For patients treated with VKA drugs, such as warfarin, the [place] [employer] 2012 Guideline recommends [...] al. Chest 2012, 141:7S-47S Bobbi ARZATE et lynn. [facility] 2017, 70: [phone] APTT Date Value Ref Range Status 03/30/2024 55.8 (H) 23.0 - 32.4 sec Final 03/30/2024 125.5 (H) 23.0 - 32.4 sec Final Comment: Result rechecked. Sample checked for clot. 03/30/2024 >139.0 (H) 23.0 - 32.4 sec Final Comment: Result rechecked. Sample checked for clot. Thrombosis Labs: No results found for: CRP, MTZXTY3IJM, FACTOR, HYPCQ, PT2Q, PROTSINTL, PROTCINTL, LUPUS, LACININTL, DRVVT, KVII5YNQU, UJNY6YRAB, ACARDINTL, DDMER, PNHPI, PNHFL, JAK2SP, JAK2E Anemia [...] developed and its performance characteristics determined by [facility] [place] ([facility]). It has not been cleared or approved by the FDA. -[facility] is regulated under CLIA as qualified to [...] developed and its performance characteristics determined by [facility] [place] ([facility]). It has not been cleared or approved by the FDA. [facility] is regulated under CLIA as qualified to perform high-complexity testing. Thistest is used for clinical purposes. It should not be regarded as investigational or for research. MYELOID NGS PANEL PERIPHERAL BLOOD Date Value Ref Range Status 07/14/2024 Final Myeloid NGS Panel Peripheral Blood Laboratory Accession Number: [id number] Result: Please see linked document and/or separate report for full result when available. Interpretation performed at remote location ([facility]) by Camille Chaney MD, PhD Thrombocytopenia Labs: [...] Chronic GI Bleeding: He was admitted at [place] 03/27/23 with upper GIbleed and had an [...] -He follows with Dr. Lana Jo at [facility] #Portal Vein and Superior Mesenteric Vein Thrombus: [...] coordinating care. Fransisca Ortiz DO Staff Physician, [facility] Hematologic Oncology and Blood Disorders Program [email or web address] [facility] cell: [phone] [facility] [address] [place] [address] [facility] [address] [place] [address] documented in this encounterMiami Valley Hospital07-22-2025 Telephone encounter Note * Telephone Encounter - Roxy Lemon RN - 10/10/2024 12:58 PM EDT Results Scorecardhart message read: Last read by Mateus Yi at 11:51AM on 10/10/2024. [facility]07-22-[facility]25 Miscellaneous Notes* Telephone Encounter - Roxy Lemon RN - 10/10/2024 12:58 PM EDT [employer] message read: Last read by Mateus Yi at 11:51AM on 10/10/2024. * Telephone Encounter - Fabricio Wilcox PA-C - 10/10/2024 9:46 AM EDT Order reviewed and signed. Thank you Fabricio Wilcox PA-C * Telephone Encounter - Roxy Lemon RN - 10/10/2024 9:[address] Tyler reviewed patient's cervical CT scan. Cervical CT Scan shows: Facet arthritis (decrease in cartilage causing joints to rub roughly becoming inflamed and painful) Dr. Tyler recommends a right C3-4, C4-5 cervical facet injection. To satisfy Medicare requirements for facet injections, the patient requires an office visit. [employer] message sent. Injection order pended for provider review. Routing to provider. documented in this encounterMiami Valley Hospital07-22-2025 Telephone encounter Note * Telephone Encounter - Fabricio Wilcox PA-C - 10/10/2024 9:46 AM EDT Order reviewed and signed. Thank you Fabricio Wilcox PA-C [facility] Work Phone: [phone] Telephone encounter Note* Telephone Encounter - Roxy Lemon RN - 10/10/2024 9:[address] Tyler reviewed patient's cervical CT scan. Cervical CT Scan shows: Facet arthritis (decrease in cartilage causing joints to rub roughly becoming inflamed and painful) Dr. Tyler recommends a right C3-4, C4-5 cervical facet injection. To satisfy Medicare requirements for facet injections, the patient requires an office visit. [employer] message sent. Injection order pended for provider review. Routing to provider. [facility]07-18-[facility] History of Present illness Narrative* Jaycee Pinedo RT(R) - 10/06/2024 11:40 AM EDT Radiology Service Progress Note PATIENT [...] PATIENT PRESENTS WITH AN IMPLANTABLE OR ATTACHED SWEATER DESIGNER: No RADIOLOGY DEPARTMENT: CT; Exam(s) Completed: Spine PERIPHERAL IV DATA: Not applicable SIGNED BY: RT Graham(R) October 06, 2024 3:58 PM documented in this encounterMiami Valley Hospital07-16-2025 History of Present illness Narrative* Prabhu Tyler MD - 10/04/2024 12:57 PM EDT [facility] Date: October 04, 2024 [...] the last month, this was completed at [facility] in [place]. Injection(s): None ALLERGIES Allergen Reactions Percocet [Oxycodone* Other: See Comments Pt states he doesn't have an allergy to percocet, but because of his reaction to Vicodin, he avoidsit. Vicodin [Hydrocodon* Anaphylaxis stopped breathing Hibiscus (Hibiscus [...] 1 tablet by mouth once daily. Insulin Buckley, Disposable, (BD ULTRAFINE III MINI PEN) 31 [...] after applying (Patient not taking: Reported on08/07/2024) No current facility-administered medications for this visit. [...] with patient. The patient is in agreement withthe above and verbalized understanding. I have discussed [...] treatment plans will be discussed during your follow- up appointment. If you do not have a [...] October 04, 2024 cc: Obdulia Martínez [address] [facility] [id number] Results of consultation to be transmitted via electronic medical record for those providers who practice within [facility] or with access to [employer] via MD Connect, or via letter. documented in this encounterMiami Valley Hospital07-15-2025 History of Present illness Narrative* Obdulia Martínez APRN.ROAD INSPECTOR - 10/03/2024 1:50 PM EDT This is a 74 year old male who presents today with: Mateus Yi is a 74-year-old male presenting for [...] tingling in arms. - Mateus has tried healthcare advisory services manager without relief. - Has taken Flexeril occasionally [...] arthroscopy ALLERGIES Percocet [Oxycodone-Acetaminophen], Vicodin [Hydrocodone- Acetaminophen], Hibiscus (Hibiscus Sabdariffa), Valsartan, and Lidocaine MEDICATIONS [...] every Wednesday, Wednesday, and Wednesday. Blood-Glucose Sensor (Whatser G7 SENSOR) wilmer CHANGE SENSOR EVERY 10 [...] after applying (Patient not taking: Reported on08/07/2024) apixaban (ELIQUIS) 5 mg tab(s) Take 1 [...] 1 tablet by mouth once daily. Insulin Buckley, Disposable, (BD ULTRAFINE III MINI PEN) 31 [...] Previous conservative management including physical therapy and healthcare advisory services manager has not provided relief. - Ordered CT scan of the cervical spine to evaluate for underlying pathology. 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 - Referral to spine medicine for further [...] worsening/no improvement. Obdulia Martínez APRN.CNP Recording using [employer] software for draft documentation of the visit was discussed with the patient/authorized metals sales representative; all questions welcomed and answered. Patient/authorized metals sales representative agreed to proceed documented in this encounterMiami Valley Hospital07-15-2025 Instructions* Patient Instructions* Obdulia Martínez APRN.CNP - 10/03/2024 11:28 AM EDT - Go to the net front end developer to schedule a CT scan of your cervical spine ([place], [place], [place], [facility] - A referral to spine medicine has been placed. - Continue the home neck exercises introduced in physical therapy, especially the exercise targeting the underdeveloped muscle that helps straighten your posture. - A physical therapy referral for your left knee has been sent to [employer]; stop by the net front end developer to set up those appointments. documented in this encounterMiami Valley Hospital07-08-2025 Discharge summary Author Naif Damian [facility] Note Date/Time September 26, 2024 2:35p [facility] Physical [facility] [address] [place] [address] [address] [place] [address] / REHABILITATION SERVICES DISCHARGE SUMMARY MR#: [id number] Acct: [id number] Name: PARKER YI Rep #: [id number] : 1950 74 From: Naif Damian PT, ATC Referring Dr.: VERO Martínez Status: REG RCR Insurance: MEDICARE PART A B [facility] Discharge Summary D/C summary: It has been [...] please feel free to call me at [phone]. Thank you for the referral of thispatient. Sincerely, Naif Damian, PT, ATC <Electronically signed by Naif Damian PT, ATC> 09/26/24 [id number] CC: VERO Martínez; Dr. Davis May MD ~ [facility] Signed [facility] Work Phone: 1(632) 499-915607-08-2025 Discharge summary [facility] Physical [facility] [address] [place] [address] [address] [place] [address] / REHABILITATION SERVICES DISCHARGE SUMMARY MR#: [id number] Acct: [id number] Name: PARKER YI Rep #: [id number] : 1950 74 From: Naif Damian PT, ATC Referring Dr.: VERO Martínez Status: REG RCR Insurance: MEDICARE PART A B [facility] Discharge Summary D/C summary: It has been [...] please feel free to call me at [phone]. Thank you for the referral of thispatient. Sincerely, Naif Damian, PT, ATC 09/26/24 4869 CC: VERO Martínez; Dr. Davis May MD ~ [facility] Signed [facility]06-19-2025 Telephone encounter Note* Telephone Encounter - [...] is able to fill prescription for Glipizide. [facility]06-19-[facility] Miscellaneous Notes* Telephone Encounter - Karina [...] fill prescription for Glipizide. documented in this encounterMiami Valley Hospital06-16-2025 History of Present illness Narrative* Grady Gregory RPh - 09/04/2024 5:30 PM EDT Mateus Yi is a 74 year old male who was contacted for initial ACO patient outreach. ACO patient group: General Location where consult was completed: [facility] at [phone] Patient encountered via: Unable to reach patient by phone or Results Scorecardhart Estimated time spent on this encounter: <15 minutes Grady Gregory RPh September 04, 2024 5:31 PM documented in this encounterMiami Valley Hospital06-16-2025 NoteHNO ID: [id number] Author: GRADY GREGORY RPh Service: ? Author Type: Pharmacist Type: Progress Notes Filed: 09/04/2024 17:31 Note Text: Mateus Yi is a 74 year old male who was contacted for initial ACO patient outreach. ACO patient group: General Location where consult was completed: [facility] at [phone] Patient encountered via: Unable to reach patient by phone or Results Scorecardhart Estimated time spent on this encounter: <15 minutes Grady Gregory RPh September 04, 2024 5:31 [facility] Center[facility]cmayjzb14-23-2811 Telephone encounter Note* Telephone Encounter - Karina Peters RN - 09/04/2024 2:26 PM EDT Updated pt that a new prescription for his Glipizide 5 mg 24 hr tablet was sent into [facility] in [place]. [facility]06-16-2025 Miscellaneous Notes* Telephone Encounter - Karina Peters RN - 09/04/2024 2:26 PM EDT Updated pt that a new prescription for his Glipizide 5 mg 24 hr tablet was sent into [facility] in [place]. documented in this encounterMiami Valley Hospital06-16-2025 History of Present illness Narrative* Dimple Payne RN - 09/04/2024 8:10 AM EDT ACM MISHEL RN Action/FYI: Attempt #2. Per chart review, Pt had a Medicare Wellness appt on 02/07/25. Unable to reach. VM left as below. Pharmacy for Life order placed on prior outreach. Patient identified by name and date of . Patient Attributed To: QAE Payer: ACO ([facility]) Reason for review or outreach: Contract Priority Patient qualifies for ACO Ecosystem outreach Contact made with Patient: No I VM Left: This is Dimple Payne RN , a registered nurse calling from the [facility]. I am sorry I missed you, your care is important to us. Please know that your PCP's office is available 12/10 to assess for and address your needs. They can help determine what care you need and can scheduleurgent appointments if necessary, and can be reached at [phone] . Please note that a Pharmacist, in [...] 04, 2024 8:11 AM documented in this encounterMiami Valley Hospital06-12-2025 History of Present illness Narrative* Dimple Payne RN - 08/31/2024 10:40 AM EDT ACM MISHEL RAMIN Action/FYI: Per chart review, Pt had a Medicare Wellness appt on 02/07/25. Unable to reach. VM left as below. Pharmacy for Life order placed. Will outreach again within a week. Patient identified by name and date of . Patient Attributed To: QAE Payer: ACO ([facility]) Reason for review or outreach: Contract Priority Patient qualifies for ACO Ecosystem outreach Contact made with Patient: No VM Left: This is Dimple Payne RN , a registered nurse calling from the [facility]. I am sorry I missed you, your care is important to us. Please know that your PCP's office is available 12/10 to assess for and address your needs. They can help determine what care you need and can scheduleurgent appointments if necessary, and can be reached at the [facility] phone number provided .Please [...] 31, 2024 10:41 AM documented in this encounterMiami Valley Hospital06-12-2025 Telephone encounter Note * Telephone Encounter - Roselia Heath MA - 08/31/2024 10:18 AM EDT Clonidine was refilled 90 day supply with 1 refill on 06/07/24 to [facility] Pt notified via [employer] to check with pharmacy for refill. Roselia Heath MA [facility]06-12-2025 Miscellaneous Notes* Telephone Encounter - Roselia Heath MA - 08/31/2024 10:18 AM EDT Clonidine was refilled 90 day supply with 1 refill on 06/07/24 to [facility] Pt notified via [employer] to check with pharmacy for refill. Roselia Heath MA documented in this encounterMiami Valley Hospital05-19-2025 History of Present illness Narrative* Jose Landry MD - 08/07/2024 11:27 AM EDT Images from the original note were not included. [facility] Department of Cardiovascular Medicine SECTION [...] every Wednesday, Wednesday, and Wednesday. Blood-Glucose Sensor (Whatser G7 SENSOR) wilmer CHANGE SENSOR EVERY 10 [...] applying (Patient not taking: Reported on08/07/2024) Insulin Buckley, Disposable, (BD ULTRAFINE III MINI PEN) 31 [...] - 4.00 k/uL 0.76 (L) 0.81 (L) Brule% % 7.2 7.8 Abs Brule <0.87 k/uL 0.28 0.34 Eosin% % 1.6 [...] twice-daily - Prescription for morphine IR 7.5mg (/ tab) every 6h for pain (3-day prescription, [...] patient. JOSE LANDRY M.D. documented in this encounterMiami Valley Hospital05-06-2025 Telephone encounter Note * Telephone Encounter - Jaycee Ochoa RN - 07/25/2024 10:02 AM EDT spoke with patient and informed him i needed 2 forms signed for the doptelet program. He stated scan them into the mychart and he would get them back to me. they were scanned. Jaycee Ochoa RN July 25, 2024 10:03 AM [facility]05-06-2025 Miscellaneous Notes* Telephone Encounter - Jaycee Ochoa RN - 07/25/2024 10:02 AM EDT spoke with patient and informed him i needed 2 forms signed for the doptelet program. He stated scan them into the mychart and he would get them back to me. they were scanned. Jaycee Ochoa RN July 25, 2024 10:03 AM documented in this encounterMiami Valley Hospital05-05-2025 Telephone encounter Note * Telephone Encounter - Jaycee Ochoa RN - 07/24/2024 2:10 PM EDT called patient to inform him of the PAP for the Doptelet. left a message with call back number. Jaycee Ochoa RN July 24, 2024 2:11 PM [facility]05-05-2025 Miscellaneous Notes* Telephone Encounter - Jaycee Ochoa RN - 07/24/2024 2:10 PM EDT called patient to inform him of the PAP for the Doptelet. left a message with call back number. Jaycee Ochoa RN July 24, 2024 2:11 PM documented in this encounterMiami Valley Hospital05-05-2025 History of Present illness Narrative* Davis [...] every Wednesday, Wednesday, and Wednesday. Blood-Glucose Sensor (Whatser G7 SENSOR) wilmer CHANGE SENSOR EVERY 10 [...] 1 tablet by mouth once daily. Insulin Buckley, Disposable, (BD ULTRAFINE III MINI PEN) 31 [...] well. Davis May MD documented in this encounterMiami Valley Hospital05-05-2025 History of Present illness Narrative* Riddhi Brower RN - 07/24/2024 11:10 AM EDT Images from the original note were not included. [facility] Telephonic Outreach Provider Action/FYI Patient [...] 24, 2024 11:10 AM documented in this encounterMiami Valley Hospital05-01-2025 Instructions* Patient Instructions* Marcos Farrell PA-C [...] are healing, please send your provider a [facility] message or call . COSMETIC CONSULT LIST: Dr. Orly Sanabria Phone number Main: [phone], [facility]: [phone] Dr. Pam Leung - [facility] (cosmetic acute care nursing assistant) Phone number [place]: [phone], Phone number Main: [phone], Tanya Harris PA-C - [facility] (cosmetic dermatology PA) Phone number [place]: [phone] Phone number Main: [phone] Dr. Jen Valadez - [place] [facility] [employer] Dr. Jaz Andersen [facility] OR Cosmetic Dermatology Physician: [facility] Materials Scientist: [phone] documented in this encounterMiami Valley Hospital05-01-2025 History of Present illness Narrative* Marcos [...] none Past Treatment: Efudex as prescribed at [facility] (used for about 2 weeks) # LOC [...] every Wednesday, Wednesday, and Wednesday. Blood-Glucose Sensor (Whatser G7 SENSOR) wilmer CHANGE SENSOR EVERY 10 [...] 1 tablet by mouth once daily. Insulin Buckley, Disposable, (BD ULTRAFINE III MINI PEN) 31 gauge x 3/16 USE WITH INSULIN PENS 1 TIME(S) DAILY Amoxicillin 500 mg tablet 2000 mg by mouth 1-2 hours prior to dental procedures ROS: Skin as above. PHYSICAL EXAM: Participation of a fellow, resident, medical student, or advanced practice provider student in performing the sensitive examination was discussed with the patient or authorized metals sales representative. The patient or authorized metals sales representative has agreed to proceed with the [...] and concerns. Attestation: Intake completed by: Hawa Barnse RN The documentation for this note was completed by Marcos Farrell PA-C on July 20, 2024 I agree with the Chief Complaint, ROS, and Past Histories independently gathered by the clinical customer support advisor and the remaining scribed note accurately describes my personal service to the patient. Marcos Farrell PA-C July 20, 2024 10:16 AM Medical Decision Making: Problems: Moderate: 1+ chronic illnesses with change Risk: Moderate: Moderate risk from testing/treatment Medical Decision Making Level: 4 - Moderate documented in this encounterMiami Valley Hospital04-25-2025 History of Present illness Narrative* Arden [...] at that time. He was admitted at [place] 03/27/23 with upper GI bleed and had [...] (Patient not taking: Reported on 06/18/2023) Insulin Buckley, Disposable, (BD ULTRAFINE III MINI PEN) 31 gauge x 3/16 USE WITH INSULIN PENS 1 TIME(S) DAILY Blood-Glucose Sensor (Whatser G7 SENSOR) wilmer CHANGE SENSOR EVERY 10 [...] 10 mL (BD POSIFLUSH) PREFERRED PHARMACY: e- [facility] [address] [place] [address] - [address] [facility] - [phone] [address] [facility] [facility] [address] e- [id number] [place] [address] - [address] [facility] - [phone] [facility] [facility] [place] [address] [address] [facility] [address] e- [facility] [address] - [place] [address] - [address] - [phone] [address] [facility] [address] [facility] [address] [facility] [id number] [place] [id number] PAST MEDICAL HISTORY Diagnosis Date Arthritis of [...] patient s labs and medical record from [facility]. LAB DATA: Basic Labs: Hemoglobin Date Value [...] with VKA drugs, such as warfarin, the [place] [employer] 2012 Guideline recommends [...] [place]. Chest 2012, 141:7S-47S gary Martines RA. [facility] 2017, 70: [phone] 03/29/2024 1.3 0.9 - 1.3 Final Comment: Vitamin K Antagonist (VKA) Therapeutic Range: INR 2 to 3 (Target INR of 2.5) Note: For patients treated with VKA drugs, such as warfarin, the [place] [employer] 2012 Guideline recommends [...] Chest 2012, 141:7S-47S Bobbi ARZATE et lynn. [facility] 2017, 70: [phone] 03/23/2024 1.3 0.9 - 1.3 Final Comment: Vitamin K Antagonist (VKA) Therapeutic Range: INR 2 to 3 (Target INR of 2.5) Note: For patients treated with VKA drugs, such as warfarin, the [place] [employer] 2012 Guideline recommends [...] Stovall. Chest 2012, 141:7S-47S Bobbi ARZATE et al. [facility] 2017, 70: [phone] APTT Date Value Ref Range Status 03/30/2024 55.8 (H) 23.0 - 32.4 sec Final 03/30/2024 125.5 (H) 23.0 - 32.4 sec Final Comment: Result rechecked. Sample checked for clot. 03/30/2024 >139.0 (H) 23.0 - 32.4 sec Final Comment: Result rechecked. Sample checked for clot. Thrombosis Labs: No results found for: CRP, IWNPBH7LRP, FACTOR, HYPCQ, PT2Q, PROTSINTL, PROTCINTL, LUPUS, LACININTL, DRVVT, FPDS0YQKU, HZYP2LWKC, ACARDINTL, DDMER, PNHPI, PNHFL, JAK2SP, JAK2E Anemia [...] developed and its performance characteristics determined by [facility] [place] ([facility]). It has not been cleared or approved by the FDA. [facility] is regulated under CLIA as qualified [...] developed and its performance characteristics determined by [facility]'s [facility] [place] ([facility] It has not been cleared or approved by the FDA. -[facility] is regulated under CLIA as qualified to [...] Chronic GI Bleeding: He was admitted at [facility] 03/27/23 with upper GIbleed and had an [...] to pursue approval of Doptelet-- 20 mg Mon-Wed-Wed -We will also obtain a myeloid NGS [...] coordinating care. Fransisca Ortiz DO Staff Physician, [facility] Hematologic Oncology and Blood Disorders Program [facility] cell: [phone] [facility] [address] [place] [address] [facility] [address] [place] [address] documented in this encounterMiami Valley Hospital04-16-2025 Telephone encounter Note * Telephone Encounter - Karina Guthrie MA - 07/05/2024 10:12 AM EDT Faxed RUSTAM notes to Maria Alejandra at [facility] for dexcom sensor order. Epic confirmation received. Karina Guthrie MA [facility]04-16-2025 Miscellaneous Notes* Telephone Encounter - Karina Guthrie MA - 07/05/2024 10:12 AM EDT Faxed RUSTAM notes to Maria Alejandra at [facility] for dexcom sensor order. Epic confirmation received. Karina Guthrie MA documented in this encounterMiami Valley Hospital04-16-2025 History of Present illness Narrative* Evelin Reich, SAMANTHA.ROAD INSPECTOR - 07/05/2024 9:45 AM EDT OFFICE VISIT [...] tablet by mouth once daily. Blood-Glucose Sensor (Whatser G7 SENSOR) wilmer CHANGE SENSOR EVERY 10 [...] pen Inject 5 units once daily Insulin Buckley, Disposable, (BD ULTRAFINE III MINI PEN) 31 [...] 2 diabetes mellitus without complication, unspecified whether fdc insulin use (HCC) (primary encounter diagnosis) Comment: [...] A1C Evelin Reich CNP documented in this encounterMiami Valley Hospital04-10-2025 Telephone encounter Note * Telephone Encounter [...] Hernandes LPN June 29, 2024 10:09 AM [facility]04-10-2025 Miscellaneous Notes* Telephone Encounter - Teresa [...] 29, 2024 10:09 AM documented in this encounterMiami Valley Hospital03-24-2025 History of Present illness Narrative* Bernadette Munguia MD - 06/12/2024 11:20 AM EDT Images from the original note were not included. [facility] SECTION [facility] REGIONAL CARDIOLOGY Cardiology ([facility] [address]) [address] [facility] [id number] OUTPATIENT VISIT DATE 06/12/2024 PRIMARY CARE PHYSICIAN: Davis May [address] [place] [address] HISTORY OF PRESENT ILLNESS: Mr. Yi is [...] tablet by mouth once daily. Blood-Glucose Sensor (Whatser G7 SENSOR) wilmer CHANGE SENSOR EVERY 10 [...] pen Inject 5 units once daily Insulin Buckley, Disposable, (BD ULTRAFINE III MINI PEN) 31 [...] reviewed * Presenting rhythm AP-/VS. AP 17%. INDUSTRIAL GAS SERVICE HELPER 0%. * Heart Rate Histograms reviewed I [...] Z95.810 Bernadette Munguia MD documented in this encounterMiami Valley Hospital03-19-2025 Telephone encounter Note * Telephone Encounter [...] Hernandes LPN June 07, 2024 8:42 AM [facility]03-19-2025 Miscellaneous Notes* Telephone Encounter - Teresa [...] 07, 2024 8:42 AM documented in this encounterMiami Valley Hospital03-18-2025 History of Present illness Narrative* Lauren Henning RN - 06/06/2024 11:08 AM EDT Patient identified by name and . Pt educated on purpose of Definity contrast solution and side effects prior to administration during ECHO. Patient verbalized understanding and appropriate time was allowed for questions/concerns to be addressed. #24 angiocath started in [facility] following [facility] policy and procedure. Pt tolerated well. 1.5mL total Definity (diluted) given via 24 angiocath located in [facility] Pt tolerated procedure well. IV was removed prior to patient leaving treatment area. Please see MAR for medication documentation. documented in this encounterMiami Valley Hospital03-14-2025 Telephone encounter Note * Telephone Encounter [...] Pascal LPN June 02, 2024 10:42 AM [facility]03-14-2025 Miscellaneous Notes* Telephone Encounter - Hever [...] 02, 2024 10:42 AM documented in this encounterMiami Valley Hospital03-12-2025 History of Present illness Narrative* Riddhi [...] were you homeless or living in a care home (including now)?: No Transportation Needs In [...] have money to get more.: Never true Utilities In the past 12 months has the [...] 31, 2024 2:21 PM documented in this encounterMiami Valley Hospital03-11-2025 Instructions* Patient Instructions* Sanna Larsen APRN.CNP - 05/30/2024 2:13 PM EDT 1) Doxycycline 100 mg 2 x day for 10 days 2) Saline nasal spray while on antibiotic 3) Call if no improvement documented in this encounterMiami Valley Hospital03-11-2025 History of Present illness Narrative* Sanna [...] tablet by mouth once daily. Blood-Glucose Sensor (Whatser G7 SENSOR) wilmer CHANGE SENSOR EVERY 10 [...] pen Inject 5 units once daily Insulin Buckley, Disposable, (BD ULTRAFINE III MINI PEN) 31 [...] as needed for worsening/no improvement. Sanna Larsen APRN.ROAD INSPECTOR documented in this encounterMiami Valley Hospital03-10-2025 Telephone encounter Note * Telephone Encounter - Martha Kaplan MA - 05/29/2024 3:31 PM EDT Pt is scheduled for tomorrow with Beatris [facility]03-10-2025 Miscellaneous Notes* Telephone Encounter - Martha [...] fever. Pt requesting atb to go to [facility]. Chari Ayala LPN documented in this encounterMiami Valley Hospital03-10-2025 Telephone encounter Note * Telephone Encounter - Davis May MD - 05/29/2024 2:59 PM EDT Given the amount of time and his issues, needs to see one of us here or urgent care [facility]03-10-2025 Telephone encounter Note* Telephone Encounter - [...] fever. Pt requesting atb to go to [facility]. Chari Ayala LPN [facility]03-10-2025 History of Present illness Narrative* Aide uW, Research Coordinator - 05/29/2024 7:33 AM EDTSummary: IRB #[id number] VCTE/Fibroscan performed on 05/19/2024 Images from the original note were not included. documented in this encounterMiami Valley Hospital02-28-2025 History of Present illness Narrative* Darron [...] tubes for clinical labs (Saliva kit and Merkel tube from [facility]e Team) Time Point Procedures [...] withsterile gauze. Patient tolerated procedure well. Clin [facility] Core Lab Check EPIC for lab orders and print labels Pull tubes from [employer] supply based on what is listed on Schedule Request Signature: Darron Ellis If drawing an Ammonia for clinical labs, send on ICE and deliver within 30 mins. of draw. Study Team Responsibilities Questionnaires, Pocket Stitcher Strength, Chair Stands, Balance, FibroScan Discharge D/C patient home Signature: Darron Ellis documented in this encounterMiami Valley Hospital02-21-2025 Instructions* Patient Instructions* Davis May MD - 05/12/2024 4:23 PM EST Lamisil over the counter for toes. documented in this encounterMiami Valley Hospital02-21-2025 History of Present illness Narrative* Davis [...] alteration from previous ov: Was hospitalized at [facility] from 03/29/24 to 03/31/24 due to portal [...] (Patient not taking: Reported on 05/10/2024) Insulin Buckley, Disposable, (BD ULTRAFINE III MINI PEN) 31 [...] diabetes mellitus with diabetic neuropathy, unspecified whether watermaster insulin use (HCC) - ICD9: 250.60, 357.2, [...] since was positive not long ago for tony May MD documented in this encounterMiami Valley Hospital02-20-2025 Instructions* Patient Instructions* Chase Arriaga LPN [...] application of the cream. documented in this encounterMiami Valley Hospital02-20-2025 History of Present illness Narrative* Marcos [...] tablet by mouth once daily. Blood-Glucose Sensor (Whatser G7 SENSOR) wilmer CHANGE SENSOR EVERY 10 [...] (Patient not taking: Reported on 05/10/2024) Insulin Buckley, Disposable, (BD ULTRAFINE III MINI PEN) 31 gauge x 3/16 USE WITH INSULIN PENS 1 TIME(S) DAILY (Patient not taking: Reported on 04/12/2024) ROS: Skin as above. PHYSICAL EXAM: Participation of a fellow, resident, medical student, or advanced practice provider student in performing the sensitive examination was discussed with the patient or authorized metals sales representative. The patient or authorized metals sales representative has agreed to proceed with the [...] questions and concerns. Attestation: Intake completed by: Lauren Roberts MA The documentation for this note was completed by Chase Arriaga LPN acting as scribe for Marcos Farrell PA-C I agree with the Chief Complaint, ROS, and Past Histories independently gathered by the clinical customer support advisor and the remaining scribed note accurately describes my personal service to the patient. Marcos Farrell PA-C May 11, 2024 1:45 PM Medical Decision Making: Problems: Low: Stable chronic illness Risk: Moderate: Drug management Medical Decision Making Level: 3 - Low documented in this encounterMiami Valley Hospital02-19-2025 Instructions* Patient Instructions* Neptali Woods MD [...] any questions or concerns. documented in this encounterMiami Valley Hospital02-19-2025 History of Present illness Narrative* Jose Landry MD - 05/10/2024 11:27 AM EST Images from the original note were not included. Heart and Vascular [place] [facility] Zaragoza Department of Cardiovascular Medicine SECTION [...] hours prior to dental procedures Blood-Glucose Sensor (Whatser G7 SENSOR) wilmer CHANGE SENSOR EVERY 10 [...] (Patient not taking: Reported on 05/10/2024) Insulin Buckley, Disposable, (BD ULTRAFINE III MINI PEN) 31 [...] Lymph 1.00 - 4.00 k/uL 0.88 (L) Brule% % 7.3 Abs Brule <0.87 k/uL 0.33 Eosin% % 0.9 Abs [...] above. JOSE LANDRY M.D. documented in this encounterMiami Valley Hospital02-18-2025 Telephone encounter Note * Telephone Encounter - Maria Alejandra Meeks OCCA - 05/09/2024 1:20 PM EST Fax received from [facility] in regards to pt lab results. Marked with pt MRN and placed in provider's mailbox for review. DEE DEE Barr [facility]02-18-2025 Miscellaneous Notes* Telephone Encounter - Maria Alejandra Meeks OCCA - 05/09/2024 1:20 PM EST Fax received from [facility] in regards to pt lab results. Marked with pt MRN and placed in provider's mailbox for review. DEE DEE Barr documented in this encounterMiami Valley Hospital02-17-2025 Telephone encounter Note * Telephone Encounter - Sally Rodriguez MA - 05/08/2024 2:16 PM EST Sent Maria Alejandra Quinones from [facility] regarding patient's orders. Awaiting response Email back stated patient will be receiving a call or will be contacted by [facility] regarding new shipment Sally Rodriguez MA [facility]02-17-2025 Miscellaneous Notes* Telephone Encounter - Sally Rodriguez MA - 05/08/2024 2:16 PM EST Sent Maria Alejandra Quinones from [facility] regarding patient's orders. Awaiting response Email back stated patient will be receiving a call or will be contacted by [facility] regarding new shipment Sally Rodriguez MA documented in this encounterMiami Valley Hospital02-05-2025 History of Present illness Narrative* Stevan [...] history of smoking. Seen by urology -Had TONY in March, was very constipated. Had a [...] tablet by mouth once daily. Blood-Glucose Sensor (Whatser G7 SENSOR) wilmer CHANGE SENSOR EVERY 10 [...] pen Inject 5 units once daily Insulin Buckley, Disposable, (BD ULTRAFINE III MINI PEN) 31 [...] which included preparing to see the patient, [id number] patient care, completing clinical documentation, obtaining and/or reviewing separately obtained history, performing a medically appropriate examination, counseling and educating the pat ient/family/caregiver, and ordering medications, tests, or procedures. Stevan Thomas MD Associate Staff, Department of Gastroenterology and Hepatology Digestive Disease and Surgery [place] -- I have communicated my name and active licensure. The patient's identity and physical location wereverified at the time of this visit. Either the patient or their legal metals sales representative has been informed of the risks and benefits of -- and alternatives to -- treatment through a remote evaluation andconsents to proceed with the evaluation remotely. documented in this encounterMiami Valley Hospital02-03-2025 Telephone encounter Note * Telephone Encounter - Sanna Larsen APRN.CNP - 04/24/2024 1:39 PM EST Ordered at [facility]. Can we see if pt. Assistance for him? Very expensive. [facility]02-03-2025 Miscellaneous Notes* Telephone Encounter - Sanna Larsen APRN.CNP - 04/24/2024 1:39 PM EST Ordered at [facility]. Can we see if pt. Assistance for him? Very expensive. * Telephone Encounter - Roselia Heath MA - 04/24/2024 8:30 AM EST Are you willing to fill this or should be be getting from provider who prescribed? Roselia Heath MA documented in this encounterMiami Valley Hospital02-03-2025 History of Present illness Narrative* Lora Thomas MD - 04/24/2024 1:30 PM EST [facility] UROLOGY NEW PATIENT HISTORY AND PHYSICAL EXAMINATION [...] tablet by mouth once daily. Blood-Glucose Sensor ([employer] G7 SENSOR) wilmer CHANGE SENSOR EVERY 10 [...] pen Inject 5 units once daily Insulin Buckley, Disposable, (BD ULTRAFINE III MINI PEN) 31 [...] Thomas MD Staff Urologist documented in this encounterMiami Valley Hospital02-03-2025 NoteHNO ID: [id number] Author: LORA THOMAS MD Service: ? Author Type: Physician Type: Progress Notes Filed: 04/24/2024 13:48 Note Text: [facility] UROLOGY NEW PATIENT HISTORY AND PHYSICAL EXAMINATION [...] pen Inject 5 units once daily Insulin Buckley, Disposable, (BD ULTRAFINE III MINI PEN) 31 [...] COLONOSCOPY FLX DX W (more content not included)...[facility] 04-24-2024 Telephone encounter Note* Telephone Encounter - Roselia Heath MA - 04/24/2024 8:30 AM EST Are you willing to fill this or should be be getting from provider who prescribed? Roselia Heath MA [facility]01-29-2025 Telephone encounter Note* Telephone Encounter - [...] will repeat in 6 months as well. [facility]01-29-2025 Miscellaneous Notes* Telephone Encounter - Nathan [...] 6 months as well. documented in this encounterMiami Valley Hospital01-29-2025 Telephone encounter Note * Telephone Encounter - Lucinda Damon MA - 04/19/2024 4:02 PM EST Patient did speak with a RAMIN Coombs within the dog day care attendant management. Patient was advised to go to ER but declined. See note. Lucinda Damon MA [facility]01-29-2025 Miscellaneous Notes* Telephone Encounter - Lucinda Damon MA - 04/19/2024 4:02 PM EST Patient did speak with a RN Denae Coombs within the dog day care attendant management. Patient was advised to go to [...] that it were he would go to [facility]. Reason for Disposition Vomited blood (Exceptions: [...] he has a fever. Protocols used: Vomiting [id number] documented in this encounterMiami Valley Hospital01-28-2025 History of Present illness Narrative* Denae [...] he did not want to go to [facility] where no one was familiar with his medical history . patient stated he did not feel it was necessary to drive over an hour to a [facility] . reviewed with patient triage messages from [...] he did not want to go to [facility] where no one was familiar with his medical history . patient stated he did not feel it was necessary to drive over an hour to a [facility] . advised patient that if bleeding would [...] 18, 2024 1:40 PM documented in this encounterMiami Valley Hospital01-27-2025 Telephone encounter Note * Telephone Encounter - Martha Kaplan MA - 04/17/2024 11:40 AM EST Left message for patient to return call. Martha Kaplan Ma [facility]01-27-2025 Telephone encounter Note* Telephone Encounter - Davis May MD - 04/17/2024 11:33 AM EST Agree with er [facility]01-27-2025 Telephone encounter Note* Telephone Encounter - [...] that it were he would go to [facility]. Reason for Disposition Vomited blood (Exceptions: [...] he has a fever. Protocols used: Vomiting [id number] [facility]01-27-2025 Telephone encounter Note* Telephone Encounter - Lorna Watkins MA - 04/17/2024 10:53 AM EST Scheduled on Triage nurse schedule. Lorna Watkins MA [facility]01-27-2025 Miscellaneous Notes* Telephone Encounter - Lorna Watkins MA - 04/17/2024 10:53 AM EST Scheduled on Triage nurse schedule. Lorna Watkins MA * Telephone Encounter - Davis May MD - 04/17/2024 9:59 AM EST Please triage this documented in this encounterMiami Valley Hospital01-27-2025 Telephone encounter Note * Telephone Encounter - Davis May MD - 04/17/2024 9:59 AM EST Please triage this [facility]01-27-2025 Telephone encounter Note* Telephone Encounter - Mia Mesa RN - 04/17/2024 8:16 AM EST See response on additional [employer] message from 04/16/24. Mia Mesa RN April 17, 2024 8:17 AM [facility]01-27-2025 Miscellaneous Notes* Telephone Encounter - Mia Mesa RN - 04/17/2024 8:16 AM EST See response on additional Leondra musichart message from 04/16/24. Mia Mesa RN April 17, 2024 8:17 AM documented in this encounterMiami Valley Hospital01-27-2025 Telephone encounter Note * Telephone Encounter - Davis May MD - 04/17/2024 7:59 AM EST Discussed with patient on Sat. Wonders if his symptoms may have started even before. Red flags for re-assessment reviewed with patient in detail. [facility]01-27-2025 Miscellaneous Notes* Telephone Encounter - Davis [...] when I am able documented in this encounterMiami Valley Hospital01-25-2025 Telephone encounter Note * Telephone Encounter - Davis May MD - 04/15/2024 9:22 AM EST Attempted to call patient. Is positive for covid. Started three days ago with uri symptoms. Is not a paxlovid candidate which we discussed. In theory he could consider molnupiravir. Attempted to callhim to discuss pros and cons. No answer. Will try again later when I am able [facility]01-24-2025 History of Present illness Narrative* Davis May MD - 04/14/2024 1:52 PM EST Patient presents with: Hematuria HPI: Patient presents today for office visit for hematuria. Was hospitalized at [facility] from 03/29/24 to 03/31/24 due to portal [...] tablet by mouth once daily. Blood-Glucose Sensor ([employer] G7 SENSOR) wilmer CHANGE SENSOR EVERY 10 [...] 1-2 hours prior to dental procedures Insulin Buckley, Disposable, (BD ULTRAFINE III MINI PEN) 31 [...] diabetes mellitus with diabetic neuropathy, unspecified whether watermaster insulin use (HCC) - ICD9: 250.60, 357.2, [...] Letter for travel written. documented in this encounterMiami Valley Hospital01-24-2025 Telephone encounter Note * Telephone Encounter - Gali Easley OCCA - 04/14/2024 9:37 AM EST TC to patient who verbalized understanding of providers message below. Patient agreeable to be seenand is scheduled same day with provider. DEE DEE Alexandre [facility]01-24-2025 Miscellaneous Notes* Telephone Encounter - Gali [...] or urgent care today documented in this encounterMiami Valley Hospital01-24-2025 Telephone encounter Note * Telephone Encounter [...] us either here or urgent care today [facility]01-22-2025 History of Present illness Narrative* Glendy Ayala, PACKAGER AND STRAPPER.ROAD INSPECTOR - 04/12/2024 3:20 PM EST Chief Complaint Patient presents with: ospital f/up HPI Mateus Yi is a 74 year old male who presents here today for Above Complaints. Mateus is an established patient of Dr. Yadira MD. He is a new patient to me today. Concerns today.. Hospital follow-up---- [facility] main [place] admission from 03/29-03/31 d/t new onset portal [...] tablet by mouth once daily. Blood-Glucose Sensor (Whatser G7 SENSOR) wilmer CHANGE SENSOR EVERY 10 [...] (Patient not taking: Reported on 04/12/2024) Insulin Buckley, Disposable, (BD ULTRAFINE III MINI PEN) 31 [...] agreeable to treatment plan. Glendy Still APRN.[address] [place] [address] documented in this encounterMiami Valley Hospital01-22-2025 Instructions* Patient Instructions* Nathan Ruth MD [...] -Schedule a kidney ultrasound. documented in this encounterMiami Valley Hospital01-22-2025 History of Present illness Narrative* Nathan Ruth MD - 04/12/2024 1:00 PM EST [facility] SERVICE DATE: 04/12/2024 [...] Hypertension, Diabetes, catherine mountain spotted fever in 2012, lyme disease in 2012, cervical radiculopathy has been referred for CKD. Review of the records show that patient was admitted to the main campus on 03/29/2024 with nonocclusive portal vein thrombosis. Patient was started on IV heparin and switch to oral Eliquis. Accompanied by her today. Hypertension for several years. 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 Has been on Tacrolimus and Cellcept since 2020. Was diagnosed with diabetes around 2019 sec to steroids. 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 Used Ibuprofen a lot until around 2019. Recently hadCT liver with contrast. No h/o hematuria, dysuria, urgency. He does have nocturia and frequency. Noh/o recurrent diarrhea or vomiting. Feels nauseous but does not have vomiting. No history of zigm-gaq-[id number] meds use or herbal meds use except [...] currently; stopped in 2019. 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 He has a son. Patient's creatinine has [...] tablet by mouth once daily. Blood-Glucose Sensor (Whatser G7 SENSOR) wilmer CHANGE SENSOR EVERY 10 [...] pen Inject 5 units once daily Insulin Buckley, Disposable, (BD ULTRAFINE III MINI PEN) 31 [...] in this interval not displayed. Recent Labs 03/31/24 0413 03/23/24 0859 10/12/23 0745 ALKPHOS 200* < > [...] settles down and they are back from [place]. Check Renal US and post-void volume. Check [...] which included preparing to see the patient, [id number] patient care, completing clinical documentation, obtaining and/or reviewing separately obtained history, performing a medically appropriate examination, counseling and educating the pat ient/family/caregiver, and ordering medications, tests, or procedures. Patient will need a fdc follow-up in renal clinic. SIGNATURE: Nathan Ruth MD, FACP, FASN PATIENT NAME: Mateus Yi OFFICE NUMBER: [phone] CC: REFERRING PROVIDER: Self PRIMARY CARE PHYSICIAN: Davis May MD documented in this encounterMiami [facility]01-21-[facility]25 History of Present illness Narrative* Vanessa Sierra MA - 04/11/2024 4:22 PM EST POPULATION HEALTH NAVIGATION OUTREACH Action/FYI April 11, 2024 4:20 PM Patient has returned phone call. He has been scheduled for tomorrow, April 12, 2024 with Glendy Ayala, ROAD INSPECTOR. Thank you Reason for Outreach Community Monitoring/Network Navigator Pools & Phone Line: Pool Patient Contacted: Spoke to patient/parent/or legal guardian Patient identified by name and : Yes Community Monitoring/Network Navigator Pools & Phone Line actions taken: Patient scheduled: Hospital Follow-up: High risk >15% 04/12/2024 in [facility] with GLENDY AYALA - Hospital follow up D/C [facility] 03.31.2024 Risk Score 18 Admitted for: New onset portal vein thrombosis 04/20/2024 in [facility] A[facility] with STEVAN THOMAS - CT Follow Up/Chronic Autoimmune Hepatitis/Dr Bear patient, 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 CALIXTO WHILE IN-PATIENT---NO AVAILABILITY 05/11/[address] [facility] with MARCOS FARRELL - follow up 05/19/2024 in [place] [address] with [facility] - IRB# [id number], ROXANE Larkin, V3, Subj. ID# [id number], Fibroscan 05/19/2024 in [place] [address] with STUDY - IRB# [id number], ROXANE Larkin, V3, Subj. ID# [id number], Fibroscan 05/30/2024 in [facility] with NA CONTRERAS I - hospital DC f/u for CKD3a 06/12/2024 in [facility] with BERNADETTE MUNGUIA - 8 month follow up 07/05/2024 in [facility] [place] with EVELIN REICH - 6 month f/u 07/14/2024 in [facility] with LISETH OTRIZ - follow up per pt req 07/24/2024 in [facility] with DAVIS MAY - 6 month follow up 01/25/2025 in [facility] with ANGELINE PFEIFFER - 1 YR F/U for diabetic eye exam. Navigation Signature: Vanessa Sierra MA April 11, 2024 4:22 PM * Vanessa Sierra MA - 04/11/2024 1:17 PM EST POPULATION HEALTH NAVIGATION OUTREACH Action/I April 11, 2024 1:17 PM CM Pool Message Type: TCM Please assist with scheduling TCM Hospital Discharge Follow up. TCM Eligible until 04/14/24 Patient discharged from [facility] Discharge date: 03/31/24 Admitted for: New onset portal vein thrombosis Readmission Risk: 18 Outcome: 1st attempt Left message for patient to return call for scheduling assistance. Direct line and PCP office number provided to patient. My chart message also sent Reason for Outreach Community Monitoring/Network Navigator Pools & Phone Line: CM Pool Patient Contacted: Unable or unnecessary to reach patient: Left message [employer] message sent Navigation Signature: Vanessa Sierra MA [...] - patient expressed understanding Patient discharged from [facility] Discharge date: 03/31/24 Admitted for: New [...] indicated symptoms are worse. Based on licensed drafter geophysical, the following disposition isadvised: NO ACTION REQUIRED. [...] appointments? Patient rosalio appointment - Routed to [facility] [[phone]] for scheduling telehealth visit (telephonic, virtual visit, [...] 11, 2024 1:05 PM documented in this encounterMiami Valley Hospital01-14-2025 History of Present illness Narrative* Denae Coombs RN - 04/04/2024 11:29 AM EST Transition Care Management (TCM) Initial Outreach PCP Update / Actionable Items see note below HRTIC TCM Home Visit Referral Source of Stratification: TCM [facility] Admission Status: Discharged Readmission Risk Score: [...] for 7 years , since moving to [place] - states he is experiencing no increase in symptoms decline appt with pcp - states he is seeing all the specialties that he needs to see . Patient discharged from [facility] Discharge date: 03/31/24 Admitted for: New onset portal vein thrombosis Readmission Risk: 18 Value-Based Contract: ACO Contact: Contact made with patient: Yes Hi, my name is Denae Coombs RN and I am calling from the [facility] on behalf of your Primary Care [...] I will send your request to a patient scheduler who will contact and assist you with [...] 04, 2024 11:31 AM documented in this encounterMiami Valley Hospital01-13-2025 Telephone encounter Note * Telephone Encounter - Samy Duffy - 2024 11:05 AM EST Called and spoke with the patient regarding study IRB#[id number]. Patient agreed to schedule the visiton 05/19 at 11 am Samy Duffy [facility]01-13-2025 Miscellaneous Notes* Telephone Encounter - Samy Duffy Naelly Ra - 2024 11:05 AM EST Called and spoke with the patient regarding study IRB#[id number]. Patient agreed to schedule the visiton 05/19 at 11 am Samymitchell Knapp Lukeselvinbennycolby documented in this encounterMiami Valley Hospital01-08-2025 Telephone encounter Note * Telephone Encounter - Herminia Hinojosa RN - 03/29/2024 12:41 PM EST Called patient and instructed him to go to the Emergency Dept at [facility] as limited beds available for direct admissions at [facility]. Verbalized understanding. Herminia Hinojosa RN March 29, 2024 12:46 PM [facility]01-08-[facility] Miscellaneous Notes* Telephone Encounter - Herminia Hinojosa RN - 03/29/2024 12:41 PM EST Called patient and instructed him to go to the Emergency Dept at [facility] as limited beds available for direct admissions at [facility]. Verbalized understanding. Herminia Hinojosa RN March 29, [...] ED if long wait documented in this encounterMiami Valley Hospital01-08-2025 Telephone encounter Note * Telephone Encounter - Stevan Thomas MD - 03/29/2024 12:35 PM EST Called by radiology regarding finding of new PVT (with extension to SMV) on CT scan done today Discussed plan for admission for repeat EGD, starting anticoagulation. Will either try for direct admission or direct patient to ED if long wait [facility]01-08-[facility] History of Present illness Narrative* Hailee [...] PATIENT PRESENTS WITH AN IMPLANTABLE OR ATTACHED SWEATER DESIGNER: No RADIOLOGY DEPARTMENT: CT; Exam(s) Completed: Liver PERIPHERAL IV DATA: Site assessment: Clean,Dry and Intact, Site disposition Discontinued SIGNED BY: RT Kailash(R) March 29, 2024 11:06 AM documented in this encounterMiami Valley Hospital11-25-2024 History of Present illness Narrative* Bobby [...] knee joint Informed Consent Consent Obtained: Verbal [place] Protocol A moment to CARE was completed. [...] which included preparing to see the patient, uisj-lu-tlxb patient care, completing clinical documentation, performing a medically appropriate examination, counseling and educating the patient/family/caregiver, ordering medications, tests, or p rocedures, and communicating results to the patient/family/caregiver. Bobby Owusu PA-C, SHIRAS documented in this encounterCleveland [phone] Telephone encounter Note * Telephone Encounter - Gali Easley OCCA - 02/14/2024 8:35 AM EST Patient requesting rx be sent to [facility]. Prescription Refill Information The patient [...] DEE Alexandre February 14, 2024 8:36 AM [facility]11[facility]25[facility] Miscellaneous Notes* Telephone Encounter - Gali Easley OCCA - 02/14/2024 8:35 AM EST Patient requesting rx be sent to [facility]. Prescription Refill Information The patient [...] 14, 2024 8:36 AM documented in this encounterMiami Valley Hospital11-04-2024 History of Present illness Narrative* Angeline Pfeiffer, OD - 01/24/2024 3:14 PM EST 1. Type 2 diabetes mellitus without retinopathy (HCC) Risk of diabetic changes and vision loss can be minimized by tight control of blood sugar, blood pressure, and cholesterol levels. Educated patient to continue care with primary care doctor and/or condenser cleaner to maintain optimum levels as they are [...] 24, 2024 3:14 PM documented in this encounterMiami Valley Hospital11-01-2024 History of Present illness Narrative* Sury Mathias APRN.ROAD INSPECTOR - 01/21/2024 11:00 AM EDT Images from [...] noted below or as needed. Sury Mathias APRN.ROAD INSPECTOR Chief Complaint: Patient presents with: Derm Problem Subjective and Objective HPI: Mateus Yi is a 73 year old male who presents for skin check: Desires: Localized exam of face only History of skin cancer?: No Actinic Keratosis follow up, previous treatment of LN2 Past medical history is reviewed. Medication list is reviewed. Physical Exam included: face Intake: SARA Brown APRN.ROAD INSPECTOR documented in this encounterMiami Valley Hospital11-01-2024 Instructions* Patient Instructions* Sury Mathias APRN.ZORAIDA - 01/21/2024 8:20 AM EDT I recommend that you follow-up with one of my colleagues: -Bhumi Carlisle CNP ([place]) -Marcos Farrell PA-C ([place]) -Scarlett Rucker PA-C ([place]) documented in this encounterMiami Valley Hospital10-29-2024 History of Present illness Narrative* Davis [...] - 4.00 k/uL 0.97 (L) 0.50 (L) Brule% % 9.4 7.0 Abs Brule <0.87 k/uL 0.39 0.35 Eosin% % 2.2 [...] mouth two times a day. Blood-Glucose Sensor (Whatser G7 SENSOR) wilmer CHANGE SENSOR EVERY 10 [...] pen Inject 5 units once daily Insulin Buckley, Disposable, (BD ULTRAFINE III MINI PEN) 31 [...] 2 diabetes mellitus without complication, unspecified whether fdc insulin use (HCC) - ICD9: 250.00, ICD10: E11.9 - Controlled - Continue current medications 8. Thrombocytopenia (HCC) - ICD9: 287.5, ICD10: D69.6 - follows closely with hematology 9. Iron deficiency anemia due to chronic blood loss - ICD9: 280.0, ICD10: D50.0 - stable. Davis May MD documented in this encounterMiami Valley Hospital10-08-2024 Telephone encounter Note * Telephone Encounter [...] by mouth once daily. Linda Adames MA [facility]10-08-2024 Miscellaneous Notes* Telephone Encounter - Linda [...] daily. Linda Adames MA documented in this encounterMiami Valley Hospital10-01-2024 Telephone encounter Note * Telephone Encounter [...] Rod LPN December 21, 2023 2:32 PM [facility]10-01-[facility] Miscellaneous Notes* Telephone Encounter - Raiza [...] 21, 2023 2:32 PM documented in this encounterMiami Valley Hospital09-23-2024 Telephone encounter Note * Telephone Encounter [...] needs scheduled appointment No Sally Rodriguez MA [facility]09-23-2024 Miscellaneous Notes* Telephone Encounter - Sally [...] No Sally Rodriguez MA documented in this encounterMiami Valley Hospital09-12-2024 History of Present illness Narrative* Jason Quiroz MD - 12/02/2023 10:07 AM EDT (Elements copied from my note dated September 01, 2023, have been reviewed and updated where appropriate, and all reflect current assessment and medical decision making from today's encounter, December 02, 2023) HISTORY OF PRESENT ILLNESS: Mateus Yi is a 73 year old male see previously by UROLOGIST PHYSICIAN Lashonda Aleman for iron deficiency anemia. Discussed [...] a day.^Disp: 270 tablet^Rfl: 1 Blood-Glucose Sensor (Whatser G7 SENSOR) wilmer^CHANGE SENSOR EVERY 10 days. [...] (Patient not taking: Reported on 06/18/2023) Insulin Buckley, Disposable, (BD ULTRAFINE III MINI PEN) 31 [...] which included preparing to see the patient, woky-uq-dkbs patient care, completing clinical documentation, obtaining and/or reviewing separately obtained history, counseling and educating the patient/family/caregiver, ordering medications, paulino ts, or procedures, independently interpreting results (not separately reported), and communicating results to the patient/family/caregiver. Electronically Signed: Jason Quiroz MD December 02, 2023 documented in this encounterMiami Valley Hospital09-09-2024 Telephone encounter Note * Telephone Encounter [...] Pascal LPN November 29, 2023 9:36 AM [facility]09-09-[facility] Miscellaneous Notes* Telephone Encounter - Hever [...] 29, 2023 9:36 AM documented in this encounterMiami Valley Hospital07-31-2024 History of Present illness Narrative* Evelin Reich APRN.ROAD INSPECTOR - 10/20/2023 12:45 PM EDT OFFICE VISIT [...] the NILE // [place] Then was in [place] with stopover in [place] No issues with his blood sugars Is [...] High CM 8.2 High HGB A1C Order: [id number] Component Ref Range & Units 5 d [...] pen Inject 5 units once daily Insulin Buckley, Disposable, (BD ULTRAFINE III MINI PEN) 31 [...] A1C Evelin Reich CNP documented in this encounterMiami Valley Hospital07-30-2024 Instructions* Patient Instructions* Sury Mathias APRN.CNP - 10/19/2023 2:53 PM EDT SKIN CARE [...] are healing, please send your provider a [facility] message or call . documented in this encounterMiami Valley Hospital07-30-2024 History of Present illness Narrative* Sury [...] reviewed. Physical Exam included: face Intake: SARA Goodrich APRN.ROAD INSPECTOR documented in this encounterMiami Valley Hospital07-25-2024 Telephone encounter Note * Telephone Encounter - Myra Tinajero RN - 10/14/2023 4:43 PM EDT Per Ying Sheffield at [facility] should be good to go as long as the [place] staff faxed over the addended OV notes from [facility]. Please advise that this has been done. Myra Tinajero RN October 14, 2023 4:44 PM [facility]07-25-[facility]24 Miscellaneous Notes* Telephone Encounter - Myra Tinajero RN - 10/14/2023 4:43 PM EDT Per Ying Sheffield at [facility] - He should be good to go as long as the [place] staff faxed over the addended OV notes from [facility]. Please advise that this has been done. Myra Tinajero RN October 14, 2023 4:44 PM * Telephone Encounter - Myra Tinajero RN - 10/14/2023 4:06 PM EDT Email sent to [facility] to inquire on the accuracy of this statement or if Pt will be able to get more sensors prior to his appointment. Myra Tinajero RN October 14, 2023 4:07 PM documented in this encounterMiami Valley Hospital07-25-2024 Telephone encounter Note * Telephone Encounter - Myra Tinajero RN - 10/14/2023 4:06 PM EDT Email sent to [facility] rep to inquire on the accuracy of this statement or if Pt will be able to get more sensors prior to his appointment. Myra Tinajero RN October 14, 2023 4:07 PM [facility]07-25-[facility] Telephone encounter Note* Telephone Encounter - Evelin Reich APRN.CNP - 10/14/2023 10:50 AM EDT addended [facility]07-25-[facility]24 Miscellaneous Notes* Telephone Encounter - Evelin Reich APRN.CNP - 10/14/2023 10:50 AM EDT addended * Telephone Encounter - Linda Adames MA - 10/14/2023 9:00 AM EDT Received document request sent to providers in [place] for review and completion I will print and fax when completed. Linda Adames MA documented in this encounterMiami Valley Hospital07-25-2024 Telephone encounter Note * Telephone Encounter - Linda Adames MA - 10/14/2023 9:00 AM EDT Received document request sent to providers in [place] for review and completion I will print and fax when completed. Linda Adames MA [facility]07-15-2024 History of Present illness Narrative* Bernadette Munguia MD - 10/04/2023 3:20 PM EDT Images from the original note were not included. [facility] SE[facility]IONAL CARDIOLOGY Cardiology ([address]) [address] [facility] [id number] OUTPATIENT VISIT DATE 10/04/2023 PRIMARY CARE PHYSICIAN: Davis May [address] [facility] [place] [address] HISTORY OF PRESENT ILLNESS: Mr. Yi is [...] placement in 2012 after a syncopal episode. [facility] 06/02/12: EF 75%, LM, Circumflex and [...] units once daily^Disp: 3 mL^Rfl: 5 Insulin Buckley, Disposable, (BD ULTRAFINE III MINI PEN) 31 gauge x 3/16^USE WITH INSULIN PENS 1 TIME(S) DAILY^Disp: 100 Each^Rfl: 3 Blood-Glucose Sensor (Whatser G7 SENSOR) wilmer^CHANGE SENSOR EVERY 10 days. [...] Z95.810 Bernadette Munguia MD documented in this encounterMiami Valley Hospital07-15-2024 Telephone encounter Note * Telephone Encounter - Sally Rodriguez MA - 10/04/2023 2:17 PM EDT Faxed over patient's OV notes to [facility] to complete CGM order. Received confirmation and filed along with other MSC orders Sally Rodriguez MA [facility]07-15-2024 Miscellaneous Notes* Telephone Encounter - Sally Rodriguez MA - 10/04/2023 2:17 PM EDT Faxed over patient's OV notes to [facility] to complete CGM order. Received confirmation and filed along with other MSC orders Sally Rodriguez MA documented in this encounterMiami Valley Hospital07-12-2024 Instructions* Patient Instructions* Derrek Bear MD [...] your usual activities immediately. documented in this encounterMiami Valley Hospital07-11-2024 History of Present illness Narrative* Char Ku - 09/30/2023 2:34 PM EDTSummary: IRB [id number] VCTE / Fibroscan performed 03/04/2023 Images from the original note were not included. documented in this encounterMiami Valley Hospital07-09-2024 History of Present illness Narrative* Derrek [...] pen Inject 5 units once daily Insulin Buckley, Disposable, (BD ULTRAFINE III MINI PEN) 31 [...] which included preparing to see the patient, lvbe-gu-khmp patient care, completing clinical documentation, obtaining and/or reviewing separately obtained history, performing a medically appropriate examination, counseling and educating the pat ient/family/caregiver, ordering medications, tests, or procedures, communicating with other HCPs (not separately reported), independently interpreting results (not separately reported), communicatingresults to the patient/family/caregiver, and care coordination (not separately reported). Derrek Bear MD Staff, Gastroenterology/Hepatology Digestive Disease and Surgery [place] documented in this encounterMiami Valley Hospital07-09-2024 History of Present illness Narrative* Shima Pfeiffer APRN.ZORAIDA - 09/28/2023 11:10 AM EDT Patient fasting for 3 hours:Yes Fibroscan was performed on September 28, 2023, by Carmela Meehan RN and results are interpreted by Shima Pfeiffer APRN, CNP Indication: Autoimmune hepatitis Technical difficulties: None Please [...] 3 (>/= S3: > 66% steatosis) Reference Major Y, Yimi Q, Major T, Sola J, Major H, Merino T. Controlled attenuation parameter for assessment of hepatic steatosis grades: a diagnostic meta-analysis. Int J Clin Exp Med. 2015 Jan 03;8(10):86524-53.PMID: [id number]; PMCID: [id number]. Jair Still, Rex NELA, Catherine M, Natalie F, Alirio J, Aisha O, Daysi F, Harvey M, Jennifer G, Brooklyn A, Shelton E, Catracho L, Emi G, Manan A, Lynette U, Lala S, Cuca, Latrell V, Rodriguez V, Morena M, Danna BRUNO. Refining the Baveno elastography criteria for the definition of compensated advanced chronic liver disease. J Hepatol. 2020;74(5):3994-2722. doi: 10.1016/j.jhep.2020.11.050. Epub 2019Feb 27. PMID: 63571705. Libraella M, Debby B, Veronika M, Tapan M, Ashley S, Romi D, Enedina D, Shantell Pruitt.AASLD practice guidance on the clinical assessment and management of nonalcoholic fatty liver disease. Hepatology. 2022;77(5):1797- 1835. doi:10.1097/HEP.[id number] documented in this encounterMiami Valley Hospital06-13-2024 History of Present illness Narrative* Darron [...] Signature: Darron Ellis Study Team Responsibilities Questionnaires, Pocket Stitcher Strength, Chair Stands, Balance Discharge D/C patient home Signature: Darron Ellis documented in this encounterMiami Valley Hospital06-12-2024 History of Present illness Narrative* Jason Quiroz MD - 09/01/2023 10:39 AM EDT HISTORY OF PRESENT ILLNESS: Mateus Yi is a 73 year old male see previously by UROLOGIST PHYSICIAN Lashonda Aleman for iron deficiency anemia. Discussed [...] (Patient not taking: Reported on 06/18/2023) Insulin Buckley, Disposable, (BD ULTRAFINE III MINI PEN) 31 [...] which included preparing to see the patient, dalk-[id number]-reqj patient care, completing clinical documentation, obtaining and/or reviewing separately obtained history, counseling and educating the patient/family/caregiver, ordering medications, paulino ts, or procedures, independently interpreting results (not separately reported), and communicating results to the patient/family/caregiver. Electronically Signed: Jason Quiroz MD September 01, 2023 10:40 AM documented in this encounterMiami Valley Hospital05-20-2024 Instructions* Patient Instructions* Myra Gallardo APRN.CNP - 08/09/2023 10:50 AM EDT Have a fun trip!!! Blood work in 6 months Keep appointment for imaging in September Keep follow up appointment with Dr. Bear documented in this encounterMiami Valley Hospital05-20-2024 History of Present illness Narrative* Myra Gallardo APRN.CNP - 08/09/2023 10:00 AM EDT NAME: Matues Yi CLINIC NO: [id number] REFERRING PHYSICIAN: Self PRESENTING COMPLAINT: follow up [...] overall Here today with his Going to [place] today C/o exhaustion, fatigue Underwent repeat scope with grade I varices, no banding noted Nausea comes and comes No abdominal distention Has been working out more Continues to use marijuana Him and will be flying to [place] later today Immunosuppression: Tacrolimus 1 mg BID, [...] times a day. 270 tablet 1 Insulin Buckley, Disposable, (BD ULTRAFINE III MINI PEN) 31 gauge x 3/16 USE WITH INSULIN PENS 1 TIME(S) DAILY 100 Each 3 Blood-Glucose Sensor ([employer] G7 SENSOR) wilmer CHANGE SENSOR EVERY 10 [...] with Dr. Bear in September Myra Gallardo APRN.ZORAIDA Gallardo APRN.ZORAIDA August 09, 2023 8:03 AM documented in this encounterMiami Valley Hospital05-10-2024 Telephone encounter Note * Telephone Encounter [...] needs scheduled appointment No Sally Rodriguez MA [facility]05-10-2024 Miscellaneous Notes* Telephone Encounter - Sally [...] No Sally Rodriguez MA documented in this encounterMiami Valley Hospital04-26-2024 History of Present illness Narrative* Davis [...] by mouth two times a day. Insulin Buckley, Disposable, (BD ULTRAFINE III MINI PEN) 31 gauge x 3/16 USE WITH INSULIN PENS 1 TIME(S) DAILY Blood-Glucose Sensor (Whatser G7 SENSOR) wilmer CHANGE SENSOR EVERY 10 [...] detail. Behavioral Health Screening Never done Covid-19 Vaccine( season) due on 05/21/2023 HbA1C due on 06/18/2023 [...] 2 diabetes mellitus without complication, unspecified whether fdc insulin use (HCC) - ICD9: 250.00, ICD10: E11.9 - per emdp/ 8. Thrombocytopenia (HCC) - ICD9: 287.5, ICD10: D69.6 - stab;e/ . Iron deficiency anemia due to chronic blood loss - ICD9: 280.0, ICD10: D50.0 - stable. Davis May MD documented in this encounterMiami Valley Hospital04-22-2024 Telephone encounter Note * Telephone Encounter - Derrek Bear MD - 07/12/2023 3:35 PM EDT Would someone call the pharmacy and let them know it's [facility]. Thanks. [facility]04-22-2024 Miscellaneous Notes* Telephone Encounter - Derrek Bear MD - 07/12/2023 3:35 PM EDT Would someone call the pharmacy and let them know it's [facility]. Thanks. * Telephone Encounter - Jessi Harrison - 07/12/2023 3:28 PM EDT [phone] Patient's pharmacy called to clarify/ ask what medication the OTC nutritionalsupplement is? documented in this encounter[address]22-2024 Telephone encounter Note * Telephone Encounter - Jessi Harrison - 07/12/2023 3:28 PM EDT [phone] Patient's pharmacy called to clarify/ ask what medication the OTC nutritionalsupplement is? [facility]04-19-[facility] Nurse Note* Carmita Nazario LPN - 07/09/2023 11:05 AM EDT Additional intake questions: Has the patient had fever, nausea, vomiting, diarrhea, constipation, fatigue for > 1 week? Yes, fatigue Does the patient have a decreased appetite? Yes Does patient want to see a Hospital Staff Pharmacist? No (yes to any of above refer patient to schedulers for dietitian appointment) ) Does patient have any new or increased numbness or tingling of extremities? No Is patient interested in fertility information? No Does patient need any prescription refills? No Does patient have an advanced directive in place? Yes Electronically Signed By: Carmita Nazario LPN [facility]04-19-2024 Nurse Note* Carmita Nazario LPN - 07/09/2023 11:05 AM EDT Additional intake questions: Has the patient had fever, nausea, vomiting, diarrhea, constipation, fatigue for > 1 week? Yes, fatigue Does the patient have a decreased appetite? Yes Does patient want to see a Hospital Staff Pharmacist? No (yes to any of above refer patient to schedulers for dietitian appointment) ) Does patient have any new or increased numbness or tingling of extremities? No Is patient interested in fertility information? No Does patient need any prescription refills? No Does patient have an advanced directive in place? Yes Electronically Signed By: Carmita Nazario LPN documented in this encounterMiami [facility] Hospital04-19-2024 History of Present illness Narrative* Angel DO Liseth - 07/09/2023 11:00 AM EDT Images from [...] at that time. He was admitted at [facility] 03/27/23 with upper GI bleed and had [...] (Patient not taking: Reported on 06/18/2023) Insulin Buckley, Disposable, (BD ULTRAFINE III MINI PEN) 31 gauge x 3/16 USE WITH INSULIN PENS 1 TIME(S) DAILY Blood-Glucose Sensor (Whatser G7 SENSOR) wilmer CHANGE SENSOR EVERY 10 [...] (flush) 10 mL (BD POSIFLUSH) PREFERRED PHARMACY: [facility] [address] [place] [address] - [address] [facility] - [phone] [place] [address] e- [id number] [place] [address] - [address] - [phone] [address] [facility] [address] [address] [place] [address] e- [facility] [address] - [place] [address] - [address] - [phone] [address] [facility] [address] [facility] [id number] [place] [id number] PAST MEDICAL HISTORY Diagnosis Date Arthritis of [...] patient s labs and medical record from [facility]. LAB DATA: Basic Labs: Hemoglobin Date Value [...] with VKA drugs, such as warfarin, the [place] [employer] 2012 Guideline recommends [...] Chest 2012, 141:7S-47S Bobbi RA, et al. JACC 2017, 70: 252-289 09/18/2022 1.2 0.9 - 1.3 Final Comment: Vitamin K Antagonist (VKA) Therapeutic Range: INR 2 to 3 (Target INR of 2.5) Note: For patients treated with VKA drugs, such as warfarin, the [place] [employer] 2012 Guideline recommends [...] Chest 2012, 141:7S-47S Bobbi ARZATE et al. [facility] 2017, 70: 252-289 04/09/2022 1.2 0.9 - 1.3 Final Comment: Vitamin K Antagonist (VKA) Therapeutic Range: INR 2 to 3 (Target INR of 2.5) Note: For patients treated with VKA drugs, such as warfarin, the [place] [employer] 2012 Guideline recommends [...] lynn. Chest 2012, 141:7S-47S Bobbi ARZATE et lynn. [facility] 2017, 70: 252-289 APTT Date Value Ref [...] laboratory APTT reagent in use throughout the [facility]. Thrombosis Labs: No results found for: CRP, XPWTEH7LJW, FACTOR, HYPCQ, PT2Q, PROTSINTL, PROTCINTL, LUPUS, LACININTL, DRVVT, GXNK9OBGP, UAEL2PHBO, ACARDINTL, DDMER, PNHPI, PNHFL, JAK2SP, JAK2E Anemia [...] Chronic GI Bleeding: He was admitted at [facility] 03/27/23 with upper GIbleed and had an [...] SELF. Fransisca Ortiz DO Associate Staff Physician, [facility] cell: [phone] [facility] [address] [place] [address] [facility] [address] [place] [address] CC: SELF Phone: N/A Fax: documented in this encounterMiami Valley Hospital04-16-2024 Nurse Note* Kelley Kevin RN - [...] RN In Department: GASTROENTEROLOGY documented in this encounterMiami Valley Hospital04-16-2024 History and physical note * Derrek [...] None Derrek Bear MD documented in this encounterMiami [facility] Hospital04-15-2024 Miscellaneous Notes* Telephone Encounter - Sally [...] No Sally Rodriguez MA documented in this encounterMiami [facility] Hospital04-05-2024 Miscellaneous Notes* Telephone Encounter - Rex Funes - 06/25/2023 11:43 AM EDT Reviewed patient on the 1st time treatment report. The patient does not have a cancer diagnosis or a chemo/radiation regimen. No further Financial Navigator intervention is needed at this time. documented in this [facility]2024 Miscellaneous Notes* Telephone Encounter - Herminia Hinojosa RN - 06/23/2023 10:57 AM EDT Called patient to assist with scheduling. VM left to return my call. Herminia Hinojosa RN June 23, 2023 10:57 AM offer him another Wednesday on main campus in early to mid September? He also needs his LVUS moved to the same day as well as labs documented in this encounterMiami [facility] Hospital04-02-2024 Miscellaneous Notes* Addendum Note - Sury Mathias APRN.CNP - 06/22/2023 2:33 PM EDTAddended by: SURY MATHIAS on: 06/22/2023 02:33 PM Modules accepted: Orders documented in this encounterMiami Valley Hospital04-02-2024 Instructions* Patient Instructions* Chelly Chou RN [...] swelling and redness, you may also take afdf-cuo-akvumuh oral medications: Claritin (loratidine) 10 mg in [...] questions or concerns, call the following number(s): [facility] [phone] documented in this encounterMiami Valley Hospital04-02-2024 History of Present illness Narrative* Chelly Chou RN - 06/22/2023 12:55 PM EDT PHOTODYNAMIC THERAPY June 22, 2023 Dx: Actinic Keratosis Pt ID verified with patient: Yes Procedure verified against order and with patient: Yes Skin prepped with 70% isopropyl alcohol Yes Area treated: Full face Number of Levulan sticks applied: 1 Lot # 11/[id number] Exp [id number] Time before Blue Light exposure: 15 minutes Area treated: Full face Pt exposed to light for 30 minutes Patient reaction during treatment: None, patient tolerated procedure well. Patient reaction after treatment: None, patient tolerated procedure well. Aftercare instructions given. Patient verbalizes understanding. Follow up with Sury Mathias CNP . Chelly Chou RN documented in this encounterMiami Valley Hospital03-29-2024 History of Present illness Narrative* Lashonda Aleman - 06/18/2023 10:27 AM EDT New Consult Note Mateus Yi 1950 Encounter date: 06/18/2023 HPI: Mateus Yi is a 73 year old male presenting as a new referral from his credit clerk, Dr. Bear, for iron deficiency anemia. Mr. [...] PICA or ice cravings. No RLS. 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 No know chemical exposures. PAST MEDICAL HISTORY [...] Reported on 06/18/2023) 3 mL 5 Insulin Buckley, Disposable, (BD ULTRAFINE III MINI PEN) 31 [...] of july for 3 weeks Lashonda Aleman APRN.ROAD INSPECTOR I spent a total of 45 minutes on the date of the service which included preparing to see the patient, kzsy-xf-eimp patient care, completing clinical documentation, performing a [...] evaluation of this patient. documented in this encounterMiami Valley Hospital03-26-2024 History of Present illness Narrative* Derrek [...] stairs - has traveled to [place] and [place] recently, will be traveling to [place] and [place] in July Past Medical History: PAST MEDICAL [...] pen Inject 5 units once daily Insulin Buckley, Disposable, (BD ULTRAFINE III MINI PEN) 31 [...] which included preparing to see the patient, sxcu-uk-hglt patient care, completing clinical documentation, obtaining and/or reviewing separately obtained history, performing a medically appropriate examination, counseling and educating the pat ient/family/caregiver, ordering medications, tests, or procedures, communicating with other HCPs (not separately reported), independently interpreting results (not separately reported), communicatingresults to the patient/family/caregiver, and care coordination (not separately reported). Derrek Bear MD Staff, Gastroenterology/Hepatology Digestive Disease and Surgery [place] documented in this encounterMiami Valley Hospital03-25-2024 Miscellaneous Notes* Telephone Encounter - Sanna [...] you. Sanna Beckett LPN. documented in this encounterMiami Valley Hospital03-20-2024 Miscellaneous Notes* Telephone Encounter - India Hand Ma - 06/09/2023 8:13 AM EDT Please review pt's RX request, last OV was 03/24/23 and no future appt's scheduled at this time. documented in this encounterMiami Valley Hospital03-04-2024 Miscellaneous Notes* Telephone Encounter - Martha [...] bad.. Keep GI follow-up. documented in this encounterMiami Valley Hospital02-20-2024 History of Present illness Narrative* Sury Mathias APRN.CNP - 05/11/2023 10:45 AM EST Images from the original note were not included. Department of Dermatology Sury Mathias APRN.ROAD INSPECTOR 05/11/2023 Last visit in Dermatology: Visit date [...] tissue, and skin Right Thigh - Posterior [id number] erythematous scaly plaques SKIN / NAIL BIOPSY [...] Procedure: shave Informed Consent Consent Obtained: Verbal [place] Protocol A moment to CARE was completed [...] Past Histories independently gathered by the clinical customer support advisor and the remaining scribed note accurately describes my personal service to the patient. Sury Mathias APRN.CNP documented in this encounterMiami Valley Hospital02-19-2024 Instructions* Patient Instructions* Lauren Roberts MA [...] often helpful.Additional information can be obtained at: [email or web address]-acgomp-[email or web address] 2. In many cases, skin cancer can [...] in a clinical trial performed at the [facility] [1]. [1] Genny U, Ralf Still, Neil T, Giorgi L, Ava Still, Deandre A, Jeramy B, Bg CB, Sherin EV. A regimento minimize pain during blue light photodynamic therapy of actinic keratoses: bilaterally controlled, randomized trial of simultaneous versus conventional illumination. Journal of [place] Academy ofDermatology 2019; 82(4):862-868. What to expect [...] day of PDT, there will be some ycgs-qr-hbtutkcx redness of the treated areas.By the next [...] recommend scheduling a follow-up with your regular acute care nursing assistant at 6-12 months after PDT to assess [...] information to: Information prepared by Dr. Duff [facility] Department of Dermatology 07/29/2022 HOME CARE [...] triamcinolone 0.1% by prescription, or 1% hydrocortisone ojks-woy-ellbica) to the entire treated area. You can [...] Photodynamic Therapy is available in these locations [facility] * [facility] [phone] J[facility] [phone] [place] [phone] [facility] [phone] [facility] [phone] [place] [phone] [facility]* [phone] [place] [phone] * Red light available CARE FOR YOUR [...] are healing, please send your provider a [facility] message or call . documented in this encounterMiami Valley Hospital01-08-2024 Discharge summary Author Syed Salazar [facility] March 29, 2023 1:23pm Note Date/Time March 29, 2023 1: 17pm [facility] Medical Records Department [address] [place] [address] Discharge Summary 03/29/23 1309 MR#: [id number] Acct: [id number] Name: PARKER YI Rep #:[id number] : 1950 72 From: Syed Iniguez PCP: Dr. 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 Bear, [facility] natural gas plant supervisor in 1 month. Advised serum tacrolimus [...] Self Care Charges/Coding Visit Charges Inpatient E&M: 39742 Disch Hosp >30min 03/29/23 1323 <Electronically signed by Syed Salazar MD> Cosigner Signature (if applicable): CC: Dr. Syed Salazar MD; Dr. Davis May MD~ Signed [facility] Work Phone: 1(594) 278-761901-08-2024 Discharge summary Author Syed Salazar [facility] March 29, 2023 1:08pm Note Date/Time March 29, 2023 12 :59pm [facility] Medical Records Department [address] [place] [address] Instructions for Home/Discharge Instructions 03/29/23904 MR#: [id number] Acct: [id number] Name: PARKER YI Rep #:[id number] : 1950 72 From: Syed Iniguez PCP: [...] / Restrictions: Follow-up with Dr. Bear, [facility] natural gas plant supervisor in 1 month. Discharge Orders/Prescriptions Prescriptions: [...] Salazar MD>Syed Salazar MD CC: Dr. Bernadette Jernigna MD; Dr. Bernadette Sharma DO; Dr. Roselia Santos DO; Dr. Davis May MD ~ Signed [facility] Work Phone: 1(339) 420-548901-07-2024 Progress note Author Tommy Cornejo [facility] March 28, 2023 8:04pm Note Date/Time March 28, 2023 8: 04pm [facility] Medical Records Department [address] [place] [address] Progress Note - GI 03/28/232000 MR#: [id number] Acct: [id number] Name: PARKER YI Rep #:[id number] : 1950 72 From: Tommy Cornejo DO PCP: Dr. 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 Charges/Coding Visit Charges Inpatient E&M: 76112 Subs Hosp L3 03/28/232003 <Electronically signed by Tommy Friend > Cosigner Signature (if applicable): CC: ~ Signed [facility] Work Phone: 1(507) 299-971001-07-2024 Progress note Author Roselia Santos [facility] March 28, 2023 1:34pm Note Date/Time March 28, 2023 1: 34pm [facility] Medical Records Department [address] [place] [address] Progress Note - Hospitalist 03/28/23 1325 MR#: [id number] Acct: [id number] Name: PARKER YI Rep #:[id number] : 1950 72 From: Roselia Santos DO PCP: Dr. Davis May MD Status:ADM I N Location: [place] [address] Reason for Visit Reason for Visit: Black [...] 2219.50 1534.25 / 1534.25 Output Total 0 / 1 Balance 1035 / 1035 2219.50 / 2218.50 [...] Neut % (Auto) 63.7, Lymph % (Auto)24.7, Brule % (Auto) 8.5, Eos % (Auto) 2.3, [...] -Hemoglobin now has been stable in the [facility] -Continue ceftriaxone 1 g daily for SBP prophylaxis in the setting of cirrhosis -GI following-would discuss with them before advancing diet Acute blood loss anemia secondary to the above -Hemoglobin stable in the [facility] region currently -Transfuse for precipitous drop [...] medication -Ongoing outpatient follow-up after 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 History of gout -Restart home probenecid [...] -Full code Charges/Coding Visit Charges Inpatient E&M: 41780 Subs Hosp L2 03/28/23 5524 <Electronically signed by Roselia Santos DO> Cosigner Signature (if applicable): CC: ~ Signed [facility] Work Phone: 1(726) 596-164901-06-2024 Progress note Author Roselia Santos [facility] March 27, 2023 2:20pm Note Date/Time March 27, 2023 10 :26am [facility] Medical Records Department [address] [place] [address] Progress Note - Hospitalist 03/27/23 1016 MR#: [id number] Acct: [id number] Name: PARKER YI Rep #:[id number] : 1950 72 From: Roselia Santos DO PCP: Dr. Davis May MD Status:ADM I N Location: [place] [address] Reason for Visit Reason for Visit: Black bowel movements Subjective Subjective Mr. 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 History of gout -Restart home probenecid Hypertension -Blood pressures are a bit soft right now -Will hold home antihypertensives -As needed hydralazine is available History of arthritis -Patient denies ever using NSAIDs -As needed Tylenol if needed DVT prophylaxis -SCDs -Chemoprophylaxis contraindicated due to GI bleeding CODE STATUS -Full code Charges/Coding Visit Charges Inpatient E&M: 12409 Subs Hosp L2 03/27/23 1420 <Electronically signed by Roselia Santos DO> Cosigner Signature (if applicable): CC: ~ Signed [facility] Work Phone: 1(896) 859-663401-06-2024 Consult note Author Tommy Cornejo [facility] March 27, 2023 1:45pm Note Date/Time March 27, 2023 1: 42pm [facility] Medical Records Department [address] [place] [address] Consultation - GI 03/26/23 2300 MR#: [id number] Acct: [id number] Name: PARKER YI Rep #:[id number] : 1950 72 From: Tommy Cornejo DO PCP: Dr. Davis May MD Status:ADM I N Location: [place] [address] HPI Consult Data Date of Consult: 03/26/23 [...] on tacrolimus and azathioprine followed by the [facility] who presents to [facility] ER complaining of black stools and [...] in the setting of known autoimmune hepatitis. [facility] Home Medications Metoprolol Succinate 100 mg PO [...] (Auto) 73.9 H, Lymph % (Auto)16.9 L, Brule % (Auto) 7.6, Eos % (Auto) 0.9, [...] Clarity Clear, Urine pH 6.0, Ur Specific Richmond 1.015, Urine Protein 100 H, Urine Glucose [...] % (Auto) 65.7, Lymph % (Auto) 24.3, Brule % (Auto) 8.5, Eos % (Auto) 1.1, [...] mycophenolate , budesonide and azathioprinefollowed by the [facility] c Charges/Coding Visit Charges Inpatient E&M: 35125 Init Hosp L3 03/27/23 1782 <Electronically signed by Tommy Cornejo DO> Cosigner Signature (if applicable): CC: Dr. Bernadette Sharma DO; Dr. Davis May MD~ Signed [facility] Work Phone: 1(103) 891-321401-06-2024 Procedure [facility] 03-27-2023 Procedure [facility]01-06-2024 History and physical note Author Bernadette Hernandez [facility] March 27, 2023 7:27am Note Date/Time March 26, 2023 10 :53pm [facility] Medical Records Department [address] [place] [address] H&P Exam - Hospitalist 03/26/23 2243 MR#: [id number] Acct: [id number] Name: PARKER YI Rep #:[id number] : 1950 72 From: Bernadette Salas DO PCP: Dr. Davis May MD Status:ADM I N Location: [place] [id number]- [id number] HPI - General General Date of Admission: 03/26/23 Date of Service: 03/26/23 Chief Complaint: Black stools and coffee-ground emesis HPI Narrative PARKER YI, is a 72 M with a past medical history of essential hypertension, GERD, remote history of peptic ulcer disease with bleeding as a teenager, osteoarthritis and autoimmune hepatitis; on tacrolimus and azathioprine followedby the [facility] who presents to [facility] ER complaining of black stools and [...] expected to be greater than 48 hours. [facility] Home Medications Metoprolol Succinate 100 mg PO [...] (Auto) 73.9 H, Lymph % (Auto)16.9 L, Brule % (Auto) 7.6, Eos % (Auto) 0.9, [...] Clarity Clear, Urine pH 6.0, Ur Specific Richmond 1.015, Urine Protein 100 H, Urine Glucose [...] of diarrhea. Finally, we will consult the credit clerk on-call to see this patient on rounds [...] on tacrolimus and azathioprine followed by the [facility] complicating #1 & #2 - Noted. Restart [...] 55 minutes. Charges/Coding Visit Charges Inpatient E&M: 75597 Init Hosp L2 03/27/23 0727 <Electronically signed by Bernadette Sharma DO> Cosigner Signature (if applicable): CC: Dr. Bernadette Sharma DO; Dr. Davis May MD~ Signed [facility] Work Phone: 1(660) 330-490601-06-2024 Discharge summary Author Esteban Renee [facility] March 26, 2023 10:59pm Note Date/Time March 26, 2023 9: 13pm [facility] Medical Records Department [address] [place] [address] Emergency Department Summary 03/26/23 MR#: [id number] Acct: [id number] Name: PARKER YI Rep #:[id number] : 1950 72 From: Esteban Renee MD PCP: Dr. aDvis May MD Status:ADM I N Location: [place] [address] HPI HPI - GI History of Present [...] Urine is clean I discussed case with credit clerk. He recommended Rocephin and pantoprazole drip. Plan [...] 73.9 H Lymph % (Auto) 16.9 L Brule % (Auto) 7.6 Eos % (Auto) 0.9 [...] Clarity Clear Urine pH 6.0 Ur Specific Richmond 1.015 Urine Protein 100 H Urine Glucose [...] Davis May Disposition Disposition: Acute Care Hospital [facility] What to do if you have Problems For any increased pain, shortness of breath, bleeding, nausea or vomiting, chestpain, or any unexpected problems, contact your Primary Care Provider. Call [facility] ([phone]) or report to the closest Emergency Room. Call 911 if necessary. 03/26/23 8779 <Electronically signed by Esteban Renee MD> Cosigner Signature (if applicable): CC: Dr. Davis May MD ~ Signed [facility] Work Phone: 1(762) 518-612801-05-2024 Discharge summary Author Esteban Renee [facility] March 26, 2023 10:59pm Note Date/Time March 26, 2023 9: 13pm [facility] Medical Records Department [address] [place] [address] Emergency Department Summary 03/26/23 MR#: [id number] Acct: [id number] Name: PARKER YI Rep #:[id number] : 1950 72 From: Esteban Renee MD PCP: Dr. Davis May MD Status:ADM I N Location: [place] [address] HPI HPI - GI History of Present [...] 300 mg capsule 300 mg PO TID 05/31/20 [History Last Taken Unknown] Allergy/AdvReac Type Severity [...] Urine is clean I discussed case with credit clerk. He recommended Rocephin and pantoprazole drip. Plan [...] 73.9 H Lymph % (Auto) 16.9 L Brule % (Auto) 7.6 Eos % (Auto) 0.9 [...] Clarity Clear Urine pH 6.0 Ur Specific Richmond 1.015 Urine Protein 100 H Urine Glucose [...] Davis May Disposition Disposition: Acute Care Hospital [facility] What to do if you have Problems For any increased pain, shortness of breath, bleeding, nausea or vomiting, chestpain, or any unexpected problems, contact your Primary Care Provider. Call [facility] ([phone]) or report to the closest Emergency Room. Call 911 if necessary. 03/26/23 6816 <Electronically signed by Esteban Renee MD> Cosigner Signature (if applicable): CC: Dr. Davis May MD ~ Signed [facility] Work Phone: 1(831) 382-919812-14-2023 History of Present illness Narrative* Angeline Romano [...] tubes for clinical labs (Saliva kit and Merkel tube from [facility]) Time Point Procedures [...] Angeline Romano RN Study Team Responsibilities Questionnaires, Pocket Stitcher Strength, Chair Stands, Balance, Physical Exam, FibroScan (NPO 3hrs) Discharge D/C patient home documented in this encounterMiami [facility] Hospital11-28-2023 History of Present illness Narrative* Himanshu [...] 16, 2023 2:16 PM documented in this encounterMiami Valley Hospital11-22-2023 Miscellaneous Notes* Telephone Encounter - Nikki López - 02/10/2023 12:38 PM EST Call from pharmacy requesting refill. Requested Prescriptions Pending Prescriptions Disp Refills metoprolol succinate ER (TOPROL XL) 100 mg 180 tablet 3 Sig: Take 1 tablet by mouth two times a day. Patient last seen 11/19/2020 Nikki López documented in this encounterMiami Valley Hospital11-20-2023 Instructions* Patient Instructions* Myra Gallardo APRN.ROAD INSPECTOR - 02/08/2023 3:19 PM EST Schedule ultrasound Follow up with Endocrinology (Cioce) Follow up in 6 months documented in this encounterMiami [facility]11-20-2023 History of Present illness Narrative* Myra Gallardo APRN.ZORAIDA - 02/08/2023 2:30 PM EST NAME: Mateus Yi CLINIC NO: [id number] REFERRING PHYSICIAN: Self PRESENTING COMPLAINT: follow up [...] recent illness. Just returned from [facility] yesterday Continues on tacrolimus and MMF Has [...] two times a day. 180 tablet 3 Pmphygxr6-Lsiggd7-Uuyfp therm. (VSL#3) 112.5 billion cell cap Take [...] in 6 months Myra Gallardo APRN.ZORAIDA Gallardo APRN.ZORAIDA February 08, 2023 1:56 PM documented in this encounterMiami [facility] Hospital11-03-2023 History of Present illness Narrative* Angeline [...] continue care with primary care doctor and/or condenser cleaner to maintain optimum levels as they are [...] 22, 2023 2:53 PM documented in this encounterMiami Valley Hospital10-31-2023 Miscellaneous Notes* Telephone Encounter - Board Gater Estela Cueto - 01/19/2023 7:35 AM EDT Call from pharmacy requesting refill. Requested Prescriptions Pending Prescriptions Disp Refills cloNIDine HCl (CATAPRES) 0.1 mg tablet 270 tablet 1 Sig: Take 1.5 tablets by mouth two times a day. Patient last seen 11/19/2020 Estela Board Gater Nory documented in this encounterMiami [facility] Hospital09-18-2023 Miscellaneous Notes* Telephone Encounter - Teresa [...] 10/14/22 Teresa Hernandes LPN documented in this encounterMiami Valley Hospital07-12-2023 History of Present illness Narrative* Evelin Reich APRN.ZORAIDA - 09/30/2022 2:00 PM EDT NEW CONSULT [...] AND 1/2 TABLETS BY MOUTH TWICE DAILY Vbzbdomb5-Hewizg5-Blakj therm. (VSL#3) 112.5 billion cell cap Take [...] A1C Evelin Reich CNP documented in this encounterMiami Valley Hospital07-06-2023 Miscellaneous Notes* Telephone Encounter - Lorna [...] how have they been? documented in this encounterMiami [facility] Hospital07-05-2023 History of Present illness Narrative* Derrek Bear MD - 09/23/2022 12:55 PM EDT [facility] 09/23/2022 Mateus Yi 72 year old male Referring physician or PCP: SELF Davis May MD Referred by * to [facility] for opinion regarding * . My final recommendations will be communicated by way of shared Medical Record for internal providers or letter via the [email or web address] for external providers. Last clinic [...] by mouth as directed.^Disp: 60 capsule^Rfl: 1 Peoogfrz6-Gfamga7-Cyvjk therm. (VSL#3) 112.5 billion cell cap^Take 1 [...] DM-2,HTN, HCM w/ syncope s/p ICD in 2013 [...] which included preparing to see the patient, snmg-nv-icuf patient care, completing clinical documentation, obtaining and/or reviewing separately obtained history, performing a medically appropriate examination, counseling and educating the pat ient/family/caregiver, ordering medications, tests, or procedures, communicating with other HCPs (not separately reported), independently interpreting results (not separately reported), communicatingresults to the patient/family/caregiver, and care coordination (not separately reported). Derrek Bear MD Career And Guidance Counselor, Department of Medicine [facility] documented in this encounterMiami Valley Hospital04-24-2023 Instructions* Patient Instructions* Bernadette Munguia MD - 07/13/2022 3:57 PM EDT We are scheduling you for an echocardiogram Follow up in three months documented in this encounterMiami Valley Hospital04-24-2023 History of Present illness Narrative* Bernadette Munguia MD - 07/13/2022 3:40 PM EDT Images from the original note were not included. [facility] SECTION OF REGIONAL CARDIOLOGY Cardiology ([facility]) [address] [facility] [id number] OUTPATIENT VISIT DATE 07/13/2022 PRIMARY CARE PHYSICIAN: Davis May [address] [place] [address] HISTORY OF PRESENT ILLNESS: Mr. Yi is [...] placement in 2013 after a syncopal episode. [facility] 06/02/12: EF 75%, LM, Circumflex and [...] BY MOUTH TWICE DAILY^Disp: 270 tablet^Rfl: 3 Rjodmpbk1-Xidurb3-Oajjt therm. (VSL#3) 112.5 billion cell cap^Take 1 [...] management Bernadette Munguia MD documented in this encounterMiami Valley Hospital04-06-2023 Miscellaneous Notes* Telephone Encounter - [facility] - 06/25/2022 7:40 AM EDT Call [...] MOUTH TWICE DAILY [facility] in this encounterMi[facility]03-20-2023 Miscellaneous Notes* Telephone Encounter - Denae [...] you. Denae Srivastava LPN documented in this encounterMiami Valley Hospital03-06-2023 History of Present illness Narrative* Prabhu Le PA-C - 05/25/2022 10:33 AM EST Images from the original note were not included. [facility] NOTE CC: Mateus Yi is a [...] Take 1 tablet by mouth twice daily Omhjsfqv8-Cpbhuj4-Tsojv therm. (VSL#3) 112.5 billion cell cap Take [...] Level: 4 - Moderate documented in this encounterMiami Valley Hospital03-03-2023 Miscellaneous Notes* Telephone Encounter - Teresa [...] patient. Teresa Hernandes LPN documented in this encounterMiami Valley Hospital03-01-2023 Miscellaneous Notes* Telephone Encounter - Annamarie Garcia RN - 05/20/2022 11:28 AM EST Pt last seen cyndie 10/20/2021. Did you want a follow up appt with pt? Annamarie Garcia RN documented in this encounterMiami Valley Hospital01-30-2023 History of Present illness Narrative* Davis [...] Take 1 tablet by mouth twice daily Hswhbzmh6-Hcfsiq4-Zdvbm therm. (VSL#3) 112.5 billion cell cap Take [...] 2 diabetes mellitus without complication, unspecified whether watermaster insulin use (HCC) - ICD9: 250.00, ICD10: E11.9 - elected not to monitor for now. Add januvia at renal dose. - HGB A1C 6. Thrombocytopenia (HCC) - ICD9: 287.5, ICD10: D69.6 7. Throat clearing - ICD9: 786.09, ICD10: R09.89 - CONSULT TO ENT 8. Oral bleeding - ICD9: 528.9, ICD10: K13.79 - CONSULT TO ENT Davis May MD documented in this encounterMiami Valley Hospital01-20-2023 Miscellaneous Notes* Telephone Encounter - Lupe Addison - 04/10/2022 11:31 AM EST Called Mateus Yi to remind them of an appointment with Dr. Bear on 04/13/22. Left Message for patient. documented in this encounterMiami Valley Hospital01-18-2023 History of Present illness Narrative* Sally Odonnell MA - 04/08/2022 9:51 AM EST POPULATION HEALTH NAVIGATION OUTREACH Action/FYI LVM MYCHART MESSAGE SENT ANNUAL MEDICARE WELLNESS BP CONTROLLED [...] 08, 2022 9:51 AM documented in this encounterMiami Valley Hospital01-17-2023 History of Present illness Narrative* Roberta Stapleton RT(R) - 04/07/2022 1:45 PM EST Radiology Service [...] 07, 2022 1:58 PM documented in this encounterMiami Valley Hospital12-19-2022 Miscellaneous Notes* Telephone Encounter - Hever Pascal LPN - 03/09/2022 3:27 PM EST Patient phones requesting refills as follows: Requested Prescriptions Pending Prescriptions Disp Refills Amoxicillin 500 mg tablet 16 tablet 0 Si mg by mouth 1-2 hours prior to dental procedures Please review and advise. Hever Pascal LPN documented in this encounterMiami Valley Hospital11-07-2022 Miscellaneous Notes* Telephone Encounter - Teresa [...] 01/26/2022 8:23 AM EST Please refer to [facility] message 12/29/21-while PCP was out on vacation: all questions were addressed by staff & Fabricio. Lorna Watkins MA documented in this encounterMiami Valley Hospital10-14-2022 Miscellaneous Notes* Telephone Encounter - Teresa Hernandes LPN - 01/02/2022 10:55 AM EDT Please see previous [facility] message. documented in this encounterMiami Valley Hospital10-10-2022 Miscellaneous Notes* Telephone Encounter - Lucinda Damon - 12/29/2021 2:49 PM EDT Spoke with [facility] who states they do in fact have the Rx's for the [employer] supplies. Insurance is not covering it. Recommended that patient stop in to pharmacy and give new insurance information so pharmacy can try running it through again. Spoke with patient and informed. Lucinda Damon documented in this encounterMiami Valley Hospital10-03-2022 History of Present illness Narrative* Davis [...] 169 MEDICATIONS: Current Outpatient Medications Medication Sig Rngufdll1-Uktzla3-Yszug therm. (VSL#3) 112.5 billion cell cap Take [...] month Davis May MD documented in this encounterMiami Valley Hospital08-23-2022 Miscellaneous Notes* Telephone Encounter - Lucinda Damon - 11/11/2021 2:55 PM EDT Spoke with patient and informed of labs. Patient verbalized understanding. Appointment scheduled 12/13/21 per Patient he needed late November appointment. Patient states that he's been eating a lot of ice-cream and also taking high protein supplements. Lucinda Marisol * Telephone Encounter - Davis May MD - 11/11/2021 2:47 PM EDT Sugars are slightly higher and showing some protein in the urine. Come in to see one of us to discuss. documented in this encounterMiami Valley Hospital08-01-2022 Instructions* Patient Instructions* Bernadette Munguia MD - 10/20/2021 1:29 PM EDT We are scheduling you for an echocardiogram documented in this encounterMiami Valley Hospital08-01-2022 History of Present illness Narrative* Bernadette Munguia MD - 10/20/2021 1:00 PM EDT Images from the original note were not included. [facility] SECTION OF REGIONAL CARDIOLOGY Cardiology ([address]) [address] [facility] [id number] OUTPATIENT VISIT DATE 10/20/2021 PRIMARY CARE PHYSICIAN: Davis May [address] [place] [address] CHIEF COMPLAINT: HISTORY OF PRESENT ILLNESS: Mr. [...] home. [facility]. He has occasional episodes [...] placement in 2012 after a syncopal episode. [facility] 06/02/12: EF 75%, LM, Circumflex and [...] Take 1 capsule by mouth twice daily. Rqkjanqh8-Ffumxr0-Mteom therm. (VSL#3) 112.5 billion cell cap Take [...] I87.2 Bernadette Munguia MD documented in this encounterMiami Valley Hospital07-28-2022 History of Present illness Narrative* Davis [...] Will be doing a cruise of the [employer] coming up. Will be getting labs before [...] would prefer to avoid. Cardio:seeing Cardiology at [facility]. No chest pain No worsening shortness [...] bleeding issues. He would like to see Rig Operator just to follow. PSYCH:sees Dr. Beckett for psych. Uses medical marijuana. Emotionally stable. GOUT:no recent issues. Ortho: sees Dr. Cadena for his finger and seeing Dr. Yap for his knees. MEDICATIONS: Current Outpatient Medications Medication Sig ursodiol (ACTIGALL) 300 mg capsule Take 1 capsule by mouth twice daily. tacrolimus IR (PROGRAF) 1 mg capsule Take 1 capsule by mouth twice daily. Kjjhqdbg7-Bkjycp8-Yzoex therm. (VSL#3) 112.5 billion cell cap Take [...] six month and prn. documented in this encounterMiami Valley Hospital07-25-2022 History of Present illness Narrative* Derrek [...] by mouth twice daily. 60 capsule 5 Cajvbdqe6-Gkfbvh9-Obsel therm. (VSL#3) 112.5 billion cell cap Take [...] coordinate I spent more than 40 minutes ccde-ls-jors with the patient and over half the time was devoted to counseling and/or coordination of care. Derrek Bear MD documented in this encounterMiami Valley Hospital07-21-2022 Miscellaneous Notes* Telephone Encounter - Lupe Addison - 10/09/2021 12:33 PM EDT Called Mateus Yi to remind them of an appointment with Dr. Bear on 10/13/2021. Left Message for patient. documented in this encounterMiami Valley Hospital06-21-2022 Miscellaneous Notes* Telephone Encounter - MARGARET [...] Thank you. MARGARET Alexandre documented in this encounterMiami Valley Hospital05-12-2022 History of Present illness Narrative* DAVID Conrad) - 07/31/2021 1:00 PM EDT Radiology Service [...] 2021 TIME: 12:56 PM documented in this encounterMiami Valley Hospital05-02-2022 History of Present illness Narrative* MARGARET [...] 21, 2021 9:13 AM documented in this encounterMiami Valley Hospital04-05-2022 History of Present illness Narrative* Derrek [...] by mouth twice daily. 180 capsule 0 Prglxdqp6-Wrhfjp6-Fdauy therm. (VSL#3) 112.5 billion cell cap Take [...] HE I spent more than 40 minutes wtcl-ef-eszl with the patient and over half the time was devoted to counseling and/or coordination of care. Derrek Bear MD documented in this encounterMiami Valley Hospital04-01-2022 Miscellaneous Notes* Telephone Encounter - Lupe Addison - 06/20/2021 2:49 PM EDT Called Mateus Yi to remind them of an appointment with Dr. Bear on 06/24/2021. Left Message for patient. documented in this encounterMiami Valley Hospital03-28-2022 Miscellaneous Notes* Telephone Encounter - [facility] - 06/16/2021 8:35 AM EDT Call from pharmacy requesting refill. Pending Prescriptions Disp Refills CLONIDINE HCL 0.1 MG TABLET 270 tablet 3 Sig: Take 1.5 tablets by mouth twice daily. RAYSA: No Patient last seen 11/19/2020 [facility] documented in this encounterMiami Valley Hospital04-13-2021 History of Past illness Narrative* Problem [...] Overview: Added automatically from request for surgery [id number] Biceps tendinopathy 05/24/2017 10/11/2017 Overview: Added automatically from request for surgery [id number] Rotator cuff tear 05/24/2017 10/11/2017 Overview: Added automatically from request for surgery [id number] Rotator cuff arthropathy, left 03/09/2017 0 10/11/2017 Overview: 2017: Tear left biceps tendon documented as of this encounter (statuses as of 06/16/2021) [facility] of Past illness Narrative* Problem [...] Overview: Added automatically from request for surgery [id number] Biceps tendinopathy 05/24/2017 10/11/2017 Overview: Added automatically from request for surgery [id number] Rotator cuff tear 05/24/2017 10/11/2017 Overview: Added automatically from request for surgery [id number] Rotator cuff arthropathy, left 03/09/2017 0 10/11/2017 Overview: 2017: Tear left biceps tendon documented as of this encounter (statuses as of 06/20/2021) [facility] of Past illness Narrative* Problem [...] Overview: Added automatically from request for surgery [id number] Biceps tendinopathy 05/24/2017 10/11/2017 Overview: Added automatically from request for surgery [id number] Rotator cuff tear 05/24/2017 10/11/2017 Overview: Added automatically from request for surgery [id number] Rotator cuff arthropathy, left 03/09/2017 0 10/11/2017 Overview: 2017: Tear left biceps tendon documented as of this encounter (statuses as of 06/24/2021) [facility] of Past illness Narrative* Problem [...] Overview: Added automatically from request for surgery [id number] Biceps tendinopathy 05/24/2017 10/11/2017 Overview: Added automatically from request for surgery [id number] Rotator cuff tear 05/24/2017 10/11/2017 Overview: Added automatically from request for surgery [id number] Rotator cuff arthropathy, left 03/09/2017 0 10/11/2017 Overview: 2017: Tear left biceps tendon documented as of this encounter (statuses as of 06/25/2021) [facility] of Past illness Narrative* Problem [...] Overview: Added automatically from request for surgery [id number] Biceps tendinopathy 05/24/2017 10/11/2017 Overview: Added automatically from request for surgery [id number] Rotator cuff tear 05/24/2017 10/11/2017 Overview: Added automatically from request for surgery [id number] Rotator cuff arthropathy, left 03/09/2017 0 10/11/2017 Overview: 2017: Tear left biceps tendon documented as of this encounter (statuses as of 06/30/2021) [facility] of Past illness Narrative* Problem [...] Overview: Added automatically from request for surgery [id number] Biceps tendinopathy 05/24/2017 10/11/2017 Overview: Added automatically from request for surgery [id number] Rotator cuff tear 05/24/2017 10/11/2017 Overview: Added automatically from request for surgery [id number] Rotator cuff arthropathy, left 03/09/2017 0 10/11/2017 Overview: 2017: Tear left biceps tendon documented as of this encounter (statuses as of 07/08/2021) [facility] of [facility] Narrative* Problem [...] Overview: Added automatically from request for surgery [id number] Biceps tendinopathy 05/24/2017 10/11/2017 Overview: Added automatically from request for surgery [id number] Rotator cuff tear 05/24/2017 10/11/2017 Overview: Added automatically from request for surgery [id number] Rotator cuff arthropathy, left 03/09/2017 0 10/11/2017 Overview: 2017: Tear left biceps tendon documented as of this encounter (statuses as of 07/22/2021) [facility] of [facility] Narrative* Problem [...] Overview: Added automatically from request for surgery [id number] Biceps tendinopathy 05/24/2017 10/11/2017 Overview: Added automatically from request for surgery [id number] Rotator cuff tear 05/24/2017 10/11/2017 Overview: Added automatically from request for surgery [id number] Rotator cuff arthropathy, left 03/09/2017 0 10/11/2017 Overview: 2017: Tear left biceps tendon documented as of this encounter (statuses as of 07/22/2021) [facility] Narrative* Problem Noted Date Resolved Date Elevated SGOT (AST) 07/02/2020 10/11/2020 Colon cancer screening 04/12/2020 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 Nausea & vomiting 08/21/2019 08/21/2019 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) 11/23/2018 12/02/2019 Controlled type 2 diabetes m mikaelitus without complication, without long-term current use of insulin 04/21/2018 08/29/2019 Elevated liver function tests 04/21/2018 Shoulder arthritis 06/02/2017 08/29/2019 OA (osteoarthritis) of shoulder 05/24/2017 08/29/2019 Overview: Added automatically from request for surgery [id number] Biceps tendinopathy 05/24/2017 10/11/2017 Overview: Added automatically from request for surgery [id number] Rotator cuff tear 05/24/2017 10/11/2017 Overview: Added automatically from request for surgery [id number] Rotator cuff arthropathy, left 03/09/2017 0 10/11/2017 Overview: 2017: Tear left biceps tendon documented as of this encounter (statuses as of 07/23/2021) [facility] Narrative* Problem [...] Overview: Added automatically from request for surgery [id number] Biceps tendinopathy 05/24/2017 10/11/2017 Overview: Added automatically from request for surgery [id number] Rotator cuff tear 05/24/2017 10/11/2017 Overview: Added automatically from request for surgery [id number] Rotator cuff arthropathy, left 03/09/2017 0 10/11/2017 Overview: 2017: Tear left biceps tendon documented as of this encounter (statuses as of 08/01/2021) [facility] Narrative* Problem [...] Overview: Added automatically from request for surgery [id number] Biceps tendinopathy 05/24/2017 10/11/2017 Overview: Added automatically from request for surgery [id number] Rotator cuff tear 05/24/2017 10/11/2017 Overview: Added automatically from request for surgery [id number] Rotator cuff arthropathy, left 03/09/2017 0 10/11/2017 Overview: 2017: Tear left biceps tendon documented as of this encounter (statuses as of 08/05/2021) [facility] Narrative* Problem [...] Overview: Added automatically from request for surgery [id number] Biceps tendinopathy 05/24/2017 10/11/2017 Overview: Added automatically from request for surgery [id number] Rotator cuff tear 05/24/2017 10/11/2017 Overview: Added automatically from request for surgery [id number] Rotator cuff arthropathy, left 03/09/2017 0 10/11/2017 Overview: 2017: Tear left biceps tendon documented as of this encounter (statuses as of 09/02/2021) [facility] Narrative* Problem [...] Overview: Added automatically from request for surgery [id number] Biceps tendinopathy 05/24/2017 10/11/2017 Overview: Added automatically from request for surgery [id number] Rotator cuff tear 05/24/2017 10/11/2017 Overview: Added automatically from request for surgery [id number] Rotator cuff arthropathy, left 03/09/2017 0 10/11/2017 Overview: 2017: Tear left biceps tendon documented as of this encounter (statuses as of 09/09/2021) [facility] Narrative* Problem [...] Overview: Added automatically from request for surgery [id number] Biceps tendinopathy 05/24/2017 10/11/2017 Overview: Added automatically from request for surgery [id number] Rotator cuff tear 05/24/2017 10/11/2017 Overview: Added automatically from request for surgery [id number] Rotator cuff arthropathy, left 03/09/2017 0 10/11/2017 Overview: 2017: Tear left biceps tendon documented as of this encounter (statuses as of 09/24/2021) [facility] Narrative* Problem [...] Overview: Added automatically from request for surgery [id number] Biceps tendinopathy 05/24/2017 10/11/2017 Overview: Added automatically from request for surgery [id number] Rotator cuff tear 05/24/2017 10/11/2017 Overview: Added automatically from request for surgery [id number] Rotator cuff arthropathy, left 03/09/2017 0 10/11/2017 Overview: 2017: Tear left biceps tendon documented as of this encounter (statuses as of 10/09/2021) [facility] Narrative* Problem [...] Overview: Added automatically from request for surgery [id number] Biceps tendinopathy 05/24/2017 10/11/2017 Overview: Added automatically from request for surgery [id number] Rotator cuff tear 05/24/2017 10/11/2017 Overview: Added automatically from request for surgery [id number] Rotator cuff arthropathy, left 03/09/2017 0 10/11/2017 Overview: 2017: Tear left biceps tendon documented as of this encounter (statuses as of 10/13/2021) [facility] Narrative* Problem [...] Overview: Added automatically from request for surgery [id number] Biceps tendinopathy 05/24/2017 10/11/2017 Overview: Added automatically from request for surgery [id number] Rotator cuff tear 05/24/2017 10/11/2017 Overview: Added automatically from request for surgery [id number] Rotator cuff arthropathy, left 03/09/2017 0 10/11/2017 Overview: 2017: Tear left biceps tendon documented as of this encounter (statuses as of 10/16/2021) [facility] Narrative* Problem [...] Overview: Added automatically from request for surgery [id number] Biceps tendinopathy 05/24/2017 10/11/2017 Overview: Added automatically from request for surgery [id number] Rotator cuff tear 05/24/2017 10/11/2017 Overview: Added automatically from request for surgery [id number] Rotator cuff arthropathy, left 03/09/2017 0 10/11/2017 Overview: 2017: Tear left biceps tendon documented as of this encounter (statuses as of 10/17/2021) [facility] Narrative* Problem [...] Overview: Added automatically from request for surgery [id number] Biceps tendinopathy 05/24/2017 10/11/2017 Overview: Added automatically from request for surgery [id number] Rotator cuff tear 05/24/2017 10/11/2017 Overview: Added automatically from request for surgery [id number] Rotator cuff arthropathy, left 03/09/2017 0 10/11/2017 Overview: 2017: Tear left biceps tendon documented as of this encounter (statuses as of 10/20/2021) [facility] Narrative* Problem [...] Overview: Added automatically from request for surgery [id number] Biceps tendinopathy 05/24/2017 10/11/2017 Overview: Added automatically from request for surgery [id number] Rotator cuff tear 05/24/2017 10/11/2017 Overview: Added automatically from request for surgery [id number] Rotator cuff arthropathy, left 03/09/2017 0 10/11/2017 Overview: 2017: Tear left biceps tendon documented as of this encounter (statuses as of 10/23/2021) [facility] Narrative* Problem [...] Overview: Added automatically from request for surgery [id number] Biceps tendinopathy 05/24/2017 10/11/2017 Overview: Added automatically from request for surgery [id number] Rotator cuff tear 05/24/2017 10/11/2017 Overview: Added automatically from request for surgery [id number] Rotator cuff arthropathy, left 03/09/2017 0 10/11/2017 Overview: 2017: Tear left biceps tendon documented as of this encounter (statuses as of 11/14/2021) [facility]04[facility]2021 History of Past illness Narrative* Problem [...] Overview: Added automatically from request for surgery [id number] Biceps tendinopathy 05/24/2017 10/11/2017 Overview: Added automatically from request for surgery [id number] Rotator cuff tear 05/24/2017 10/11/2017 Overview: Added automatically from request for surgery [id number] Rotator cuff arthropathy, left 03/09/2017 0 10/11/2017 Overview: 2017: Tear left biceps tendon documented as of this encounter (statuses as of 11/18/2021) [facility]2021 History of Past illness Narrative* Problem [...] Overview: Added automatically from request for surgery [id number] Biceps tendinopathy 05/24/2017 10/11/2017 Overview: Added automatically from request for surgery [id number] Rotator cuff tear 05/24/2017 10/11/2017 Overview: Added automatically from request for surgery [id number] Rotator cuff arthropathy, left 03/09/2017 0 10/11/2017 Overview: 2017: Tear left biceps tendon documented as of this encounter (statuses as of 12/08/2021) [facility]2021 History of Past illness Narrative* Problem [...] Overview: Added automatically from request for surgery [id number] Biceps tendinopathy 05/24/2017 10/11/2017 Overview: Added automatically from request for surgery [id number] Rotator cuff tear 05/24/2017 10/11/2017 Overview: Added automatically from request for surgery [id number] Rotator cuff arthropathy, left 03/09/2017 0 10/11/2017 Overview: 2017: Tear left biceps tendon documented as of this encounter (statuses as of 12/09/2021) [facility]2021 History of Past illness Narrative* Problem [...] Overview: Added automatically from request for surgery [id number] Biceps tendinopathy 05/24/2017 10/11/2017 Overview: Added automatically from request for surgery [id number] Rotator cuff tear 05/24/2017 10/11/2017 Overview: Added automatically from request for surgery [id number] Rotator cuff arthropathy, left 03/09/2017 0 10/11/2017 Overview: 2017: Tear left biceps tendon documented as of this encounter (statuses as of 12/09/2021) [facility]2021 History of Past illness Narrative* Problem [...] Overview: Added automatically from request for surgery [id number] Biceps tendinopathy 05/24/2017 10/11/2017 Overview: Added automatically from request for surgery [id number] Rotator cuff tear 05/24/2017 10/11/2017 Overview: Added automatically from request for surgery [id number] Rotator cuff arthropathy, left 03/09/2017 0 10/11/2017 Overview: 2017: Tear left biceps tendon documented as of this encounter (statuses as of 12/22/2021) [facility] History of Past illness Narrative* Problem [...] Overview: Added automatically from request for surgery [id number] Biceps tendinopathy 05/24/2017 10/11/2017 Overview: Added automatically from request for surgery [id number] Rotator cuff tear 05/24/2017 10/11/2017 Overview: Added automatically from request for surgery [id number] Rotator cuff arthropathy, left 03/09/2017 0 10/11/2017 Overview: 2017: Tear left biceps tendon documented as of this encounter (statuses as of 12/23/2021) [facility] History of Past illness Narrative* Problem [...] Overview: Added automatically from request for surgery [id number] Biceps tendinopathy 05/24/2017 10/11/2017 Overview: Added automatically from request for surgery [id number] Rotator cuff tear 05/24/2017 10/11/2017 Overview: Added automatically from request for surgery [id number] Rotator cuff arthropathy, left 03/09/2017 0 10/11/2017 Overview: 2017: Tear left biceps tendon documented as of this encounter (statuses as of 12/23/2021) [facility]21 History of Past illness Narrative* Problem [...] Overview: Added automatically from request for surgery [id number] Biceps tendinopathy 05/24/2017 10/11/2017 Overview: Added automatically from request for surgery [id number] Rotator cuff tear 05/24/2017 10/11/2017 Overview: Added automatically from request for surgery [id number] Rotator cuff arthropathy, left 03/09/2017 0 10/11/2017 Overview: 2017: Tear left biceps tendon documented as of this encounter (statuses as of 12/29/2021) [facility] History of Past illness Narrative* Problem [...] Overview: Added automatically from request for surgery [id number] Biceps tendinopathy 05/24/2017 10/11/2017 Overview: Added automatically from request for surgery [id number] Rotator cuff tear 05/24/2017 10/11/2017 Overview: Added automatically from request for surgery [id number] Rotator cuff arthropathy, left 03/09/2017 0 10/11/2017 Overview: 2017: Tear left biceps tendon documented as of this encounter (statuses as of 12/29/2021) [facility]21 History of Past illness Narrative* Problem [...] Overview: Added automatically from request for surgery [id number] Biceps tendinopathy 05/24/2017 10/11/2017 Overview: Added automatically from request for surgery [id number] Rotator cuff tear 05/24/2017 10/11/2017 Overview: Added automatically from request for surgery [id number] Rotator cuff arthropathy, left 03/09/2017 0 10/11/2017 Overview: 2017: Tear left biceps tendon documented as of this encounter (statuses as of 01/02/2022) [facility]21 History of Past illness Narrative* Problem [...] Overview: Added automatically from request for surgery [id number] Biceps tendinopathy 05/24/2017 10/11/2017 Overview: Added automatically from request for surgery [id number] Rotator cuff tear 05/24/2017 10/11/2017 Overview: Added automatically from request for surgery [id number] Rotator cuff arthropathy, left 03/09/2017 0 10/11/2017 Overview: 2017: Tear left biceps tendon documented as of this encounter (statuses as of 01/13/2022) [facility] History of Past illness Narrative* Problem [...] Overview: Added automatically from request for surgery [id number] Biceps tendinopathy 05/24/2017 10/11/2017 Overview: Added automatically from request for surgery [id number] Rotator cuff tear 05/24/2017 10/11/2017 Overview: Added automatically from request for surgery [id number] Rotator cuff arthropathy, left 03/09/2017 0 10/11/2017 Overview: 2017: Tear left biceps tendon documented as of this encounter (statuses as of 01/26/2022) [facility] History of Past illness Narrative* Problem [...] Overview: Added automatically from request for surgery [id number] Biceps tendinopathy 05/24/2017 10/11/2017 Overview: Added automatically from request for surgery [id number] Rotator cuff tear 05/24/2017 10/11/2017 Overview: Added automatically from request for surgery [id number] Rotator cuff arthropathy, left 03/09/2017 0 10/11/2017 Overview: 2017: Tear left biceps tendon documented as of this encounter (statuses as of 03/09/2022) [facility]2021 History of Past illness Narrative* Problem [...] Overview: Added automatically from request for surgery [id number] Biceps tendinopathy 05/24/2017 10/11/2017 Overview: Added automatically from request for surgery [id number] Rotator cuff tear 05/24/2017 10/11/2017 Overview: Added automatically from request for surgery [id number] Rotator cuff arthropathy, left 03/09/2017 0 10/11/2017 Overview: 2017: Tear left biceps tendon documented as of this encounter (statuses as of 03/14/2022) [facility]21 History of Past illness Narrative* Problem [...] Overview: Added automatically from request for surgery [id number] Biceps tendinopathy 05/24/2017 10/11/2017 Overview: Added automatically from request for surgery [id number] Rotator cuff tear 05/24/2017 10/11/2017 Overview: Added automatically from request for surgery [id number] Rotator cuff arthropathy, left 03/09/2017 0 10/11/2017 Overview: 2017: Tear left biceps tendon documented as of this encounter (statuses as of 03/26/2022) [facility]2021 History of Past illness Narrative* Problem [...] Overview: Added automatically from request for surgery [id number] Biceps tendinopathy 05/24/2017 10/11/2017 Overview: Added automatically from request for surgery [id number] Rotator cuff tear 05/24/2017 10/11/2017 Overview: Added automatically from request for surgery [id number] Rotator cuff arthropathy, left 03/09/2017 0 10/11/2017 Overview: 2017: Tear left biceps tendon documented as of this encounter (statuses as of 04/08/2022) [facility] History of Past illness Narrative* Problem [...] Overview: Added automatically from request for surgery [id number] Biceps tendinopathy 05/24/2017 10/11/2017 Overview: Added automatically from request for surgery [id number] Rotator cuff tear 05/24/2017 10/11/2017 Overview: Added automatically from request for surgery [id number] Rotator cuff arthropathy, left 03/09/2017 0 10/11/2017 Overview: 2017: Tear left biceps tendon documented as of this encounter (statuses as of 04/08/2022) [facility] History of Past illness Narrative* Problem [...] Overview: Added automatically from request for surgery [id number] Biceps tendinopathy 05/24/2017 10/11/2017 Overview: Added automatically from request for surgery [id number] Rotator cuff tear 05/24/2017 10/11/2017 Overview: Added automatically from request for surgery [id number] Rotator cuff arthropathy, left 03/09/2017 0 10/11/2017 Overview: 2017: Tear left biceps tendon documented as of this encounter (statuses as of 04/10/2022) [facility] History of Past illness Narrative* Problem [...] Overview: Added automatically from request for surgery [id number] Biceps tendinopathy 05/24/2017 10/11/2017 Overview: Added automatically from request for surgery [id number] Rotator cuff tear 05/24/2017 10/11/2017 Overview: Added automatically from request for surgery [id number] Rotator cuff arthropathy, left 03/09/2017 0 10/11/2017 Overview: 2017: Tear left biceps tendon documented as of this encounter (statuses as of 04/16/2022) [facility] History of Past illness Narrative* Problem [...] Overview: Added automatically from request for surgery [id number] Biceps tendinopathy 05/24/2017 10/11/2017 Overview: Added automatically from request for surgery [id number] Rotator cuff tear 05/24/2017 10/11/2017 Overview: Added automatically from request for surgery [id number] Rotator cuff arthropathy, left 03/09/2017 0 10/11/2017 Overview: 2017: Tear left biceps tendon Sciatica 09/29/2011 04/20/2022 documented as of this encounter (statuses as of 04/20/2022) [facility] History of Past illness Narrative* Problem [...] Overview: Added automatically from request for surgery [id number] Biceps tendinopathy 05/24/2017 10/11/2017 Overview: Added automatically from request for surgery [id number] Rotator cuff tear 05/24/2017 10/11/2017 Overview: Added automatically from request for surgery [id number] Rotator cuff arthropathy, left 03/09/2017 0 10/11/2017 Overview: 2017: Tear left biceps tendon Sciatica 09/29/2011 04/20/2022 documented as of this encounter (statuses as of 04/20/2022) [facility] History of Past illness Narrative* Problem [...] Overview: Added automatically from request for surgery [id number] Biceps tendinopathy 05/24/2017 10/11/2017 Overview: Added automatically from request for surgery [id number] Rotator cuff tear 05/24/2017 10/11/2017 Overview: Added automatically from request for surgery [id number] Rotator cuff arthropathy, left 03/09/2017 0 10/11/2017 Overview: 2017: Tear left biceps tendon Sciatica 09/29/2011 04/20/2022 documented as of this encounter (statuses as of 05/20/2022) [facility] History of Past illness Narrative* Problem [...] Overview: Added automatically from request for surgery [id number] Biceps tendinopathy 05/24/2017 10/11/2017 Overview: Added automatically from request for surgery [id number] Rotator cuff tear 05/24/2017 10/11/2017 Overview: Added automatically from request for surgery [id number] Rotator cuff arthropathy, left 03/09/2017 0 10/11/2017 Overview: 2017: Tear left biceps tendon Sciatica 09/29/2011 04/20/2022 documented as of this encounter (statuses as of 05/20/2022) [facility] History of Past illness Narrative* Problem [...] Overview: Added automatically from request for surgery [id number] Biceps tendinopathy 05/24/2017 10/11/2017 Overview: Added automatically from request for surgery [id number] Rotator cuff tear 05/24/2017 10/11/2017 Overview: Added automatically from request for surgery [id number] Rotator cuff arthropathy, left 03/09/2017 0 10/11/2017 Overview: 2017: Tear left biceps tendon Sciatica 09/29/2011 04/20/2022 documented as of this encounter (statuses as of 05/20/2022) [facility] History of Past illness Narrative* Problem [...] Overview: Added automatically from request for surgery [id number] Biceps tendinopathy 05/24/2017 10/11/2017 Overview: Added automatically from request for surgery [id number] Rotator cuff tear 05/24/2017 10/11/2017 Overview: Added automatically from request for surgery [id number] Rotator cuff arthropathy, left 03/09/2017 0 10/11/2017 Overview: 2017: Tear left biceps tendon Sciatica 09/29/2011 04/20/2022 documented as of this encounter (statuses as of 05/22/2022) [facility] History of Past illness Narrative* Problem [...] Overview: Added automatically from request for surgery [id number] Biceps tendinopathy 05/24/2017 10/11/2017 Overview: Added automatically from request for surgery [id number] Rotator cuff tear 05/24/2017 10/11/2017 Overview: Added automatically from request for surgery [id number] Rotator cuff arthropathy, left 03/09/2017 0 10/11/2017 Overview: 2017: Tear left biceps tendon Sciatica 09/29/2011 04/20/2022 documented as of this encounter (statuses as of 05/22/2022) [facility] History of Past illness Narrative* Problem [...] Overview: Added automatically from request for surgery [id number] Biceps tendinopathy 05/24/2017 10/11/2017 Overview: Added automatically from request for surgery [id number] Rotator cuff tear 05/24/2017 10/11/2017 Overview: Added automatically from request for surgery [id number] Rotator cuff arthropathy, left 03/09/2017 0 10/11/2017 Overview: 2017: Tear left biceps tendon Sciatica 09/29/2011 04/20/2022 documented as of this encounter (statuses as of 05/25/2022) [facility] History of Past illness Narrative* Problem [...] Overview: Added automatically from request for surgery [id number] Biceps tendinopathy 05/24/2017 10/11/2017 Overview: Added automatically from request for surgery [id number] Rotator cuff tear 05/24/2017 10/11/2017 Overview: Added automatically from request for surgery [id number] Rotator cuff arthropathy, left 03/09/2017 0 10/11/2017 Overview: 2017: Tear left biceps tendon Sciatica 09/29/2011 04/20/2022 documented as of this encounter (statuses as of 06/08/2022) [facility] History of Past illness Narrative* Problem [...] Overview: Added automatically from request for surgery [id number] Biceps tendinopathy 05/24/2017 10/11/2017 Overview: Added automatically from request for surgery [id number] Rotator cuff tear 05/24/2017 10/11/2017 Overview: Added automatically from request for surgery [id number] Rotator cuff arthropathy, left 03/09/2017 0 10/11/2017 Overview: 2017: Tear left biceps tendon Sciatica 09/29/2011 04/20/2022 documented as of this encounter (statuses as of 06/09/2022) [facility] History of Past illness Narrative* Problem [...] Overview: Added automatically from request for surgery [id number] Biceps tendinopathy 05/24/2017 10/11/2017 Overview: Added automatically from request for surgery [id number] Rotator cuff tear 05/24/2017 10/11/2017 Overview: Added automatically from request for surgery [id number] Rotator cuff arthropathy, left 03/09/2017 0 10/11/2017 Overview: 2017: Tear left biceps tendon Sciatica 09/29/2011 04/20/2022 documented as of this encounter (statuses as of 06/10/2022) [facility] History of Past illness Narrative* Problem [...] Overview: Added automatically from request for surgery [id number] Biceps tendinopathy 05/24/2017 10/11/2017 Overview: Added automatically from request for surgery [id number] Rotator cuff tear 05/24/2017 10/11/2017 Overview: Added automatically from request for surgery [id number] Rotator cuff arthropathy, left 03/09/2017 0 10/11/2017 Overview: 2017: Tear left biceps tendon Sciatica 09/29/2011 04/20/2022 documented as of this encounter (statuses as of 06/25/2022) [facility] History of Past illness Narrative* Problem [...] Overview: Added automatically from request for surgery [id number] Biceps tendinopathy 05/24/2017 10/11/2017 Overview: Added automatically from request for surgery [id number] Rotator cuff tear 05/24/2017 10/11/2017 Overview: Added automatically from request for surgery [id number] Rotator cuff arthropathy, left 03/09/2017 0 10/11/2017 Overview: 2017: Tear left biceps tendon Sciatica 09/29/2011 04/20/2022 documented as of this encounter (statuses as of 07/14/2022) [facility] History of Past illness Narrative* Problem [...] Overview: Added automatically from request for surgery [id number] Biceps tendinopathy 05/24/2017 10/11/2017 Overview: Added automatically from request for surgery [id number] Rotator cuff tear 05/24/2017 10/11/2017 Overview: Added automatically from request for surgery [id number] Rotator cuff arthropathy, left 03/09/2017 0 10/11/2017 Overview: 2017: Tear left biceps tendon Sciatica 09/29/2011 04/20/2022 documented as of this encounter (statuses as of 09/18/2022) [facility] History of Past illness Narrative* Problem [...] Overview: Added automatically from request for surgery [id number] Biceps tendinopathy 05/24/2017 10/11/2017 Overview: Added automatically from request for surgery [id number] Rotator cuff tear 05/24/2017 10/11/2017 Overview: Added automatically from request for surgery [id number] Rotator cuff arthropathy, left 03/09/2017 0 10/11/2017 Overview: 2017: Tear left biceps tendon Sciatica 09/29/2011 04/20/2022 documented as of this encounter (statuses as of 09/24/2022) [facility] History of Past illness Narrative* Problem [...] [facility], chronic, 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) 11/23/2018 12/02/2019 Elevated liver function tests 04/21/2018 Shoulder arthritis 06/02/2017 08/29/2019 OA (osteoarthritis) of shoulder 05/24/2017 08/29/2019 Overview: Added automatically from request for surgery [id number] Biceps tendinopathy 05/24/2017 10/11/2017 Overview: Added automatically from request for surgery [id number] Rotator cuff tear 05/24/2017 10/11/2017 Overview: Added automatically from request for surgery [id number] Rotator cuff arthropathy, left 03/09/2017 0 10/11/2017 Overview: 2017: Tear left biceps tendon Sciatica 09/29/2011 04/20/2022 documented as of this encounter (statuses as of 09/24/2022) [facility] History of Past illness Narrative* Problem [...] Overview: Added automatically from request for surgery [id number] Biceps tendinopathy 05/24/2017 10/12/19 18 Overview: Added automatically from request for surgery [id number] Rotator cuff tear 05/24/2017 10/11/2017 Overview: Added automatically from request for surgery [id number] Rotator cuff arthropathy, left 03/09/2017 10/11/2017 Overview: 2017: Tear left biceps tendon Sciatica 09/29/2011 04/20/2022 documented as of this encounter (statuses as of 10/01/2022) [facility] History of Past illness Narrative* Problem [...] Overview: Added automatically from request for surgery [id number] Biceps tendinopathy 05/24/2017 10/12/19 18 Overview: Added automatically from request for surgery [id number] Rotator cuff tear 05/24/2017 10/11/2017 Overview: Added automatically from request for surgery [id number] Rotator cuff arthropathy, left 03/09/2017 10/11/2017 Overview: 2017: Tear left biceps tendon Sciatica 09/29/2011 04/20/2022 documented as of this encounter (statuses as of 10/01/2022) [facility] History of Past illness Narrative* Problem [...] Overview: Added automatically from request for surgery [id number] Biceps tendinopathy 05/24/2017 10/12/19 18 Overview: Added automatically from request for surgery [id number] Rotator cuff tear 05/24/2017 10/11/2017 Overview: Added automatically from request for surgery [id number] Rotator cuff arthropathy, left 03/09/2017 10/11/2017 Overview: 2017: Tear left biceps tendon Sciatica 09/29/2011 04/20/2022 documented as of this encounter (statuses as of 11/20/2022) [facility] History of Past illness Narrative* Problem [...] Overview: Added automatically from request for surgery [id number] Biceps tendinopathy 05/24/2017 10/12/19 Overview: Added automatically from request for surgery [id number] Rotator cuff tear 05/24/2017 10/11/2017 Overview: Added automatically from request for surgery [id number] Rotator cuff arthropathy, left 03/09/2017 10/11/2017 Overview: 2017: Tear left biceps tendon Sciatica 09/29/2011 04/20/2022 documented as of this encounter (statuses as of 12/08/2022) [facility] History of Past illness Narrative* Problem [...] Overview: Added automatically from request for surgery [id number] Biceps tendinopathy 05/24/2017 10/12/19 18 Overview: Added automatically from request for surgery [id number] Rotator cuff tear 05/24/2017 10/11/2017 Overview: Added automatically from request for surgery [id number] Rotator cuff arthropathy, left 03/09/2017 10/11/2017 Overview: 2017: Tear left biceps tendon Sciatica 09/29/2011 04/20/2022 documented as of this encounter (statuses as of 12/16/2022) [facility] History of Past illness Narrative* Problem [...] Overview: Added automatically from request for surgery [id number] Biceps tendinopathy 05/24/2017 10/12/19 18 Overview: Added automatically from request for surgery [id number] Rotator cuff tear 05/24/2017 10/11/2017 Overview: Added automatically from request for surgery [id number] Rotator cuff arthropathy, left 03/09/2017 10/11/2017 Overview: 2017: Tear left biceps tendon Sciatica 09/29/2011 04/20/2022 documented as of this encounter (statuses as of 01/19/2023) [facility] History of Past illness Narrative* Problem [...] Overview: Added automatically from request for surgery [id number] Biceps tendinopathy 05/24/2017 10/12/19 18 Overview: Added automatically from request for surgery [id number] Rotator cuff tear 05/24/2017 10/11/2017 Overview: Added automatically from request for surgery [id number] Rotator cuff arthropathy, left 03/09/2017 10/11/2017 Overview: 2017: Tear left biceps tendon Sciatica 09/29/2011 04/20/2022 documented as of this encounter (statuses as of 01/23/2023) [facility] History of Past illness Narrative* Problem [...] Overview: Added automatically from request for surgery [id number] Biceps tendinopathy 05/24/2017 10/12/19 Overview: Added automatically from request for surgery [id number] Rotator cuff tear 05/24/2017 10/11/2017 Overview: Added automatically from request for surgery [id number] Rotator cuff arthropathy, left 03/09/2017 10/11/2017 Overview: 2017: Tear left biceps tendon Sciatica 09/29/2011 04/20/2022 documented as of this encounter (statuses as of 02/10/2023) [facility] History of Past illness Narrative* Problem [...] Overview: Added automatically from request for surgery [id number] Biceps tendinopathy 05/24/2017 10/12/19 18 Overview: Added automatically from request for surgery [id number] Rotator cuff tear 05/24/2017 10/11/2017 Overview: Added automatically from request for surgery [id number] Rotator cuff arthropathy, left 03/09/2017 10/11/2017 Overview: 2017: Tear left biceps tendon Sciatica 09/29/2011 04/20/2022 documented as of this encounter (statuses as of 02/17/2023) [facility] History of Past illness Narrative* Problem [...] Overview: Added automatically from request for surgery [id number] Biceps tendinopathy 05/24/2017 10/12/19 18 Overview: Added automatically from request for surgery [id number] Rotator cuff tear 05/24/2017 10/11/2017 Overview: Added automatically from request for surgery [id number] Rotator cuff arthropathy, left 03/09/2017 10/11/2017 Overview: 2017: Tear left biceps tendon Sciatica 09/29/2011 04/20/2022 documented as of this encounter (statuses as of 02/18/2023) [facility] History of Past illness Narrative* Problem [...] Overview: Added automatically from request for surgery [id number] Biceps tendinopathy 05/24/2017 10/12/19 18 Overview: Added automatically from request for surgery [id number] Rotator cuff tear 05/24/2017 10/11/2017 Overview: Added automatically from request for surgery [id number] Rotator cuff arthropathy, left 03/09/2017 10/11/2017 Overview: 2017: Tear left biceps tendon Sciatica 09/29/2011 04/20/2022 documented as of this encounter (statuses as of 02/18/2023) [facility] History of Past illness Narrative* Problem [...] Overview: Added automatically from request for surgery [id number] Biceps tendinopathy 05/24/2017 10/12/19 18 Overview: Added automatically from request for surgery [id number] Rotator cuff tear 05/24/2017 10/11/2017 Overview: Added automatically from request for surgery [id number] Rotator cuff arthropathy, left 03/09/2017 10/11/2017 Overview: 2017: Tear left biceps tendon Sciatica 09/29/2011 04/20/2022 documented as of this encounter (statuses as of 02/18/2023) [facility] History of Past illness Narrative* Problem [...] Overview: Added automatically from request for surgery [id number] Biceps tendinopathy 05/24/2017 10/12/19 18 Overview: Added automatically from request for surgery [id number] Rotator cuff tear 05/24/2017 10/11/2017 Overview: Added automatically from request for surgery [id number] Rotator cuff arthropathy, left 03/09/2017 10/11/2017 Overview: 2017: Tear left biceps tendon Sciatica 09/29/2011 04/20/2022 documented as of this encounter (statuses as of 03/05/2023) [facility] History of Past illness Narrative* Problem [...] Overview: Added automatically from request for surgery [id number] Biceps tendinopathy 05/24/2017 10/12/19 18 Overview: Added automatically from request for surgery [id number] Rotator cuff tear 05/24/2017 10/11/2017 Overview: Added automatically from request for surgery [id number] Rotator cuff arthropathy, left 03/09/2017 10/11/2017 Overview: 2017: Tear left biceps tendon Sciatica 09/29/2011 04/20/2022 documented as of this encounter (statuses as of 05/11/2023) [facility] History of Past illness Narrative* Problem [...] Overview: Added automatically from request for surgery [id number] Biceps tendinopathy 05/24/2017 10/12/19 18 Overview: Added automatically from request for surgery [id number] Rotator cuff tear 05/24/2017 10/11/2017 Overview: Added automatically from request for surgery [id number] Rotator cuff arthropathy, left 03/09/2017 10/11/2017 Overview: 2017: Tear left biceps tendon Sciatica 09/29/2011 04/20/2022 documented as of this encounter (statuses as of 05/20/2023) [facility] History of Past illness Narrative* Problem [...] Overview: Added automatically from request for surgery [id number] Biceps tendinopathy 05/24/2017 10/12/19 18 Overview: Added automatically from request for surgery [id number] Rotator cuff tear 05/24/2017 10/11/2017 Overview: Added automatically from request for surgery [id number] Rotator cuff arthropathy, left 03/09/2017 10/11/2017 Overview: 2017: Tear left biceps tendon Sciatica 09/29/2011 04/20/2022 documented as of this encounter (statuses as of 05/24/2023) [facility] History of Past illness Narrative* Problem [...] Overview: Added automatically from request for surgery [id number] Biceps tendinopathy 05/24/2017 10/12/19 18 Overview: Added automatically from request for surgery [id number] Rotator cuff tear 05/24/2017 10/11/2017 Overview: Added automatically from request for surgery [id number] Rotator cuff arthropathy, left 03/09/2017 10/11/2017 Overview: 2017: Tear left biceps tendon Sciatica 09/29/2011 04/20/2022 documented as of this encounter (statuses as of 06/07/2023) [facility] History of Past illness Narrative* Problem [...] Overview: Added automatically from request for surgery [id number] Biceps tendinopathy 05/24/2017 10/12/19 18 Overview: Added automatically from request for surgery [id number] Rotator cuff tear 05/24/2017 10/11/2017 Overview: Added automatically from request for surgery [id number] Rotator cuff arthropathy, left 03/09/2017 10/11/2017 Overview: 2017: Tear left biceps tendon Sciatica 09/29/2011 04/20/2022 documented as of this encounter (statuses as of 06/09/2023) [place] [address]-13-2021 History of Past illness Narrative* Problem Noted [...] Overview: Added automatically from request for surgery [id number] Biceps tendinopathy 05/24/2017 10/12/19 18 Overview: Added automatically from request for surgery [id number] Rotator cuff tear 05/24/2017 10/11/2017 Overview: Added automatically from request for surgery [id number] Rotator cuff arthropathy, left 03/09/2017 10/11/2017 Overview: 2017: Tear left biceps tendon Sciatica 09/29/2011 04/20/2022 documented as of this encounter (statuses as of 06/14/2023) [facility] History of Past illness Narrative* Problem [...] Overview: Added automatically from request for surgery [id number] Biceps tendinopathy 05/24/2017 10/12/19 18 Overview: Added automatically from request for surgery [id number] Rotator cuff tear 05/24/2017 10/11/2017 Overview: Added automatically from request for surgery [id number] Rotator cuff arthropathy, left 03/09/2017 10/11/2017 Overview: 2017: Tear left biceps tendon Sciatica 09/29/2011 04/20/2022 documented as of this encounter (statuses as of 06/16/2023) [facility] History of Past illness Narrative* Problem [...] Overview: Added automatically from request for surgery [id number] Biceps tendinopathy 05/24/2017 10/12/19 18 Overview: Added automatically from request for surgery [id number] Rotator cuff tear 05/24/2017 10/11/2017 Overview: Added automatically from request for surgery [id number] Rotator cuff arthropathy, left 03/09/2017 10/11/2017 Overview: 2017: Tear left biceps tendon Sciatica 09/29/2011 04/20/2022 documented as of this encounter (statuses as of 06/16/2023) [facility] History of Past illness Narrative* Problem [...] Overview: Added automatically from request for surgery [id number] Biceps tendinopathy 05/24/2017 10/12/19 18 Overview: Added automatically from request for surgery [id number] Rotator cuff tear 05/24/2017 10/11/2017 Overview: Added automatically from request for surgery [id number] Rotator cuff arthropathy, left 03/09/2017 10/11/2017 Overview: 2017: Tear left biceps tendon Sciatica 09/29/2011 04/20/2022 documented as of this encounter (statuses as of 06/22/2023) [facility] History of Past illness Narrative* Problem [...] Overview: Added automatically from request for surgery [id number] Biceps tendinopathy 05/24/2017 10/12/19 18 Overview: Added automatically from request for surgery [id number] Rotator cuff tear 05/24/2017 10/11/2017 Overview: Added automatically from request for surgery [id number] Rotator cuff arthropathy, left 03/09/2017 10/11/2017 Overview: 2017: Tear left biceps tendon Sciatica 09/29/2011 04/20/2022 documented as of this encounter (statuses as of 06/22/2023) [facility] History of Past illness Narrative* Problem [...] Overview: Added automatically from request for surgery [id number] Biceps tendinopathy 05/24/2017 10/12/19 18 Overview: Added automatically from request for surgery [id number] Rotator cuff tear 05/24/2017 10/11/2017 Overview: Added automatically from request for surgery [id number] Rotator cuff arthropathy, left 03/09/2017 10/11/2017 Overview: 2017: Tear left biceps tendon Sciatica 09/29/2011 04/20/2022 documented as of this encounter (statuses as of 06/23/2023) [facility] History of Past illness Narrative* Problem [...] Overview: Added automatically from request for surgery [id number] Biceps tendinopathy 05/24/2017 10/12/19 Overview: Added automatically from request for surgery [id number] Rotator cuff tear 05/24/2017 10/11/2017 Overview: Added automatically from request for surgery [id number] Rotator cuff arthropathy, left 03/09/2017 10/11/2017 Overview: 2017: Tear left biceps tendon Sciatica 09/29/2011 04/20/2022 documented as of this encounter (statuses as of 06/23/2023) [facility] History of Past illness Narrative* Problem [...] Overview: Added automatically from request for surgery [id number] Biceps tendinopathy 05/24/2017 10/12/19 18 Overview: Added automatically from request for surgery [id number] Rotator cuff tear 05/24/2017 10/11/2017 Overview: Added automatically from request for surgery [id number] Rotator cuff arthropathy, left 03/09/2017 10/11/2017 Overview: 2017: Tear left biceps tendon Sciatica 09/29/2011 04/20/2022 documented as of this encounter (statuses as of 06/25/2023) [facility] History of Past illness Narrative* Problem [...] Overview: Added automatically from request for surgery [id number] Biceps tendinopathy 05/24/2017 10/12/19 18 Overview: Added automatically from request for surgery [id number] Rotator cuff tear 05/24/2017 10/11/2017 Overview: Added automatically from request for surgery [id number] Rotator cuff arthropathy, left 03/09/2017 10/11/2017 Overview: 2017: Tear left biceps tendon Sciatica 09/29/2011 04/20/2022 documented as of this encounter (statuses as of 06/27/2023) [facility] History of Past illness Narrative* Problem [...] Overview: Added automatically from request for surgery [id number] Biceps tendinopathy 05/24/2017 10/12/19 18 Overview: Added automatically from request for surgery [id number] Rotator cuff tear 05/24/2017 10/11/2017 Overview: Added automatically from request for surgery [id number] Rotator cuff arthropathy, left 03/09/2017 10/11/2017 Overview: 2017: Tear left biceps tendon Sciatica 09/29/2011 04/20/2022 documented as of this encounter (statuses as of 06/28/2023) [facility] History of Past illness Narrative* Problem [...] Overview: Added automatically from request for surgery [id number] Biceps tendinopathy 05/24/2017 10/12/19 18 Overview: Added automatically from request for surgery [id number] Rotator cuff tear 05/24/2017 10/11/2017 Overview: Added automatically from request for surgery [id number] Rotator cuff arthropathy, left 03/09/2017 10/11/2017 Overview: 2017: Tear left biceps tendon Sciatica 09/29/2011 04/20/2022 documented as of this encounter (statuses as of 07/01/2023) [facility] History of Past illness Narrative* Problem [...] Overview: Added automatically from request for surgery [id number] Biceps tendinopathy 05/24/2017 10/12/19 18 Overview: Added automatically from request for surgery [id number] Rotator cuff tear 05/24/2017 10/11/2017 Overview: Added automatically from request for surgery [id number] Rotator cuff arthropathy, left 03/09/2017 10/11/2017 Overview: 2017: Tear left biceps tendon Sciatica 09/29/2011 04/20/2022 documented as of this encounter (statuses as of 07/01/2023) [facility] History of Past illness Narrative* Problem [...] Overview: Added automatically from request for surgery [id number] Biceps tendinopathy 05/24/2017 10/12/19 18 Overview: Added automatically from request for surgery [id number] Rotator cuff tear 05/24/2017 10/11/2017 Overview: Added automatically from request for surgery [id number] Rotator cuff arthropathy, left 03/09/2017 10/11/2017 Overview: 2017: Tear left biceps tendon Sciatica 09/29/2011 04/20/2022 documented as of this encounter (statuses as of 07/02/2023) [facility] History of Past illness Narrative* Problem [...] Overview: Added automatically from request for surgery [id number] Biceps tendinopathy 05/24/2017 10/12/19 18 Overview: Added automatically from request for surgery [id number] Rotator cuff tear 05/24/2017 10/11/2017 Overview: Added automatically from request for surgery [id number] Rotator cuff arthropathy, left 03/09/2017 10/11/2017 Overview: 2017: Tear left biceps tendon Sciatica 09/29/2011 04/20/2022 documented as of this encounter (statuses as of 07/06/2023) [facility] History of Past illness Narrative* Problem [...] Overview: Added automatically from request for surgery [id number] Biceps tendinopathy 05/24/2017 10/12/19 18 Overview: Added automatically from request for surgery [id number] Rotator cuff tear 05/24/2017 10/11/2017 Overview: Added automatically from request for surgery [id number] Rotator cuff arthropathy, left 03/09/2017 10/11/2017 Overview: 2017: Tear left biceps tendon Sciatica 09/29/2011 04/20/2022 documented as of this encounter (statuses as of 07/07/2023) [facility] History of Past illness Narrative* Problem [...] Overview: Added automatically from request for surgery [id number] Biceps tendinopathy 05/24/2017 10/12/19 18 Overview: Added automatically from request for surgery [id number] Rotator cuff tear 05/24/2017 10/11/2017 Overview: Added automatically from request for surgery [id number] Rotator cuff arthropathy, left 03/09/2017 10/11/2017 Overview: 2017: Tear left biceps tendon Sciatica 09/29/2011 04/20/2022 documented as of this encounter (statuses as of 07/07/2023) [facility] History of Past illness Narrative* Problem [...] Overview: Added automatically from request for surgery [id number] Biceps tendinopathy 05/24/2017 10/12/19 18 Overview: Added automatically from request for surgery [id number] Rotator cuff tear 05/24/2017 10/11/2017 Overview: Added automatically from request for surgery [id number] Rotator cuff arthropathy, left 03/09/2017 10/11/2017 Overview: 2017: Tear left biceps tendon Sciatica 09/29/2011 04/20/2022 documented as of this encounter (statuses as of 06/25/2023) [facility] Kailee Parker [facility] March 29, 2023 2:21pm Note Date/Time March 29, 2023 2: 21pm [facility] Medical Records Department [address] [place] [address] Counseling Note - Pharmacy 03/29/23 1420 MR#: [id number] Acct: [id number] Name: PARKER YI Rep #:[id number] : [id number] 72 From: Kailee Parker PCP: Dr. Davis May MD Status:ADM I N Y Location: [place] [address] Pharmacy [facility] Pharmacy Service has performed discharge medication reconciliation [...] Signature (if applicable): Date CC: ~ Signed [facility] Work Phone: Evaluation note* Diagnosis Autoimmune hepatitis (HCC)- Primary Autoimmune hepatitis Hepatic sclerosis Unspecified chronic liver disease without mention of alcohol [facility] Liver lesion- Primary Other specified disorders of liver [facility] Diagnosis Autoimmune hepatitis (HCC) Autoimmune hepatitis [facility] Diagnosis Liver lesion Other specified disorders of liver [facility] Diagnosis Acute gout involving toe of right foot, unspecified cause [facility] Diagnosis Prophylactic antibiotic Encounter for long-term (current) use of antibiotics [facility] Diagnosis Autoimmune hepatitis (HCC)- Primary Autoimmune hepatitis Liver disease, unspecified [facility] Diagnosis Autoimmune hepatitis treated with [...] Other abnormal glucose [facility] [place] [facility] Diagnosis Type 2 diabetes mellitus without complication, unspecified whether watermaster insulin use (HCC) [facility] [place] [facility]* Diagnosis Hypertrophic obstructive cardiomyopathy (HOCM) (HCC)- Primary Hypertrophic obstructive cardiomyopathy Essential hypertension Unspecified essential hypertension Hyperlipidemia LDL goal <100 Other and unspecified hyperlipidemia S/P ICD (internal cardiac defibrillator) procedure Automatic implantable cardiac defibrillator in situ Venous insufficiency Unspecified venous (peripheral) insufficiency [facility] [place] [facility]* Diagnosis Acute gout involving toe of right foot, unspecified cause [facility]* Diagnosis Controlled type 2 diabetes mellitus without complication, without long-term current use of insulin (HCC)- Primary [facility] [place] [facility] Diagnosis Hyperlipidemia LDL goal <100- Primary [...] stated as uncontrolled [facility] Diagnosis Portal vein thrombosis Hypertrophic obstructive cardiomyopathy (HOCM) (HCC) Hypertrophic obstructive cardiomyopathy Type 2 diabetes mellitus treated with insulin (HCC) Type II or unspecified type diabetes mellitus without mention of complication, not stated as uncontrolled [facility] noteNo assessment information availableWKing[facility] [place] Work Phone: Evaluation note* Diagnosis Prophylactic antibiotic Encounter for long-term (current) use of antibiotics [facility] [place] [facility]* Diagnosis Portal vein thrombosis Hypertrophic obstructive cardiomyopathy (HOCM) (HCC) Hypertrophic obstructive cardiomyopathy Type 2 diabetes mellitus treated with insulin (HCC) Type II or unspecified type diabetes mellitus without mention of complication, not stated as uncontrolled [facility] Diagnosis Prophylactic antibiotic Encounter for long-term (current) use of antibiotics [facility]* Diagnosis Autoimmune hepatitis (HCC) Autoimmune hepatitis [facility] [place] [facility]* Diagnosis Hypertrophic obstructive cardiomyopathy (HOCM) (HCC)- Primary Hypertrophic obstructive cardiomyopathy Hyperlipidemia LDL goal <100 Other and unspecified hyperlipidemia Portal vein thrombosis Hepatic cirrhosis, unspecified hepatic cirrhosis type, unspecified whether ascites present (HCC) Controlled type 2 diabetes mellitus without complication, unspecified whether watermaster insulin use (HCC) Thrombocytopenia (HCC) Thrombocytopenia, unspecified Throat clearing Other symptoms involving head and neck Oral bleeding Other and unspecified diseases of the oral soft tissues [facility] Diagnosis HOCM (hypertrophic obstructive cardiomyopathy) (HCC)- Primary Hypertrophic obstructive cardiomyopathy [facility] Diagnosis HOCM (hypertrophic obstructive cardiomyopathy) (HCC)- Primary Hypertrophic obstructive cardiomyopathy [facility]* Diagnosis Acute gout involving toe of right foot, unspecified cause [facility]* Diagnosis Vocal cord nodule- Primary Other diseases of vocal cords Throat clearing Other symptoms involving head and neck Oral bleeding Other and unspecified diseases of the oral soft tissues Gastroesophageal reflux disease, unspecified whether esophagitis present [facility] Chronic insomnia Insomnia, unspecified [facility] Diagnosis Hypertrophic obstructive cardiomyopathy (HOCM) (HCC)- Primary Hypertrophic obstructive cardiomyopathy S/P ICD (internal cardiac defibrillator) procedure Automatic implantable cardiac defibrillator in situ Hyperlipidemia LDL goal <100 Other and unspecified hyperlipidemia Venous insufficiency Unspecified venous (peripheral) insufficiency Primary hypertension Unspecified essential hypertension [facility] Diagnosis Autoimmune hepatitis (HCC) Autoimmune hepatitis [facility] Diagnosis Autoimmune hepatitis (HCC)- Primary Autoimmune hepatitis Controlled type 2 diabetes mellitus without complication, unspecified whether fdc insulin use (HCC) Elevated LFTs Other abnormal blood chemistry [facility] Diagnosis Poorly controlled type 2 diabetes mellitus (HCC)- Primary Type II or unspecified type diabetes mellitus without mention of complication, not stated as uncontrolled [facility] [place] [facility]* Diagnosis Acute gout involving toe of right foot, unspecified cause [facility] Diagnosis Combined forms of age-related cataract [...] venous (peripheral) insufficiency [facility] Diagnosis Autoimmune hepatitis (HCC) [K75.4]- Primary Autoimmune hepatitis [facility] Diagnosis Autoimmune hepatitis (HCC) Autoimmune hepatitis Examination of participant in clinical trial- Primary [facility] Diagnosis Liver lesion- Primary Other specified disorders of liver Examination of participant in clinical trial- Primary [facility] [place] [facility]* Diagnosis Examination of participant in clinical trial- Primary [facility] Diagnosis Onset Date Resolution Status Acute upper gastrointestinal bleeding acute Anemia acute Autoimmune hepatitis acute Diarrhea acute History of immunosuppression therapy acute Thrombocytopenia acute [facility] Work Phone: Evaluation note* Diagnosis Onset Date Resolution Status Acute upper gastrointestinal bleeding acute Anemia acute Elevated serum creatinine ac azucena Esophageal varices acute [facility] Work Phone: Evaluation note* Diagnosis AK (actinic keratosis)- Primary Actinic keratosis Seborrheic keratosis Other seborrheic keratosis Henriquez angioma Nevus, non-neoplastic Multiple benign nevi Benign neoplasm of skin, site unspecified Lentigines Other dyschromia Neoplasm of unspecified behavior of bone, soft tissue, and skin [facility] [place] [facility]* Diagnosis Acute gout involving toe of right foot, unspecified cause [facility] [place] [facility]* Diagnosis Autoimmune hepatitis (HCC)- Primary Autoimmune hepatitis Iron deficiency anemia due to chronic blood loss Iron deficiency anemia secondary to blood loss (chronic) Hepatic sclerosis Unspecified chronic liver disease without mention of alcohol [facility] [place] [facility]* Diagnosis Iron deficiency anemia due to chronic blood loss Iron deficiency anemia secondary to blood loss (chronic) [facility] [place] [facility]* Diagnosis AK (actinic keratosis)- Primary Actinic keratosis [facility] Diagnosis Iron deficiency anemia due to chronic blood loss- Primary Iron deficiency anemia secondary to blood loss (chronic) Thrombocytopenia (HCC) Thrombocytopenia, unspecified [facility] [place] [facility]* Diagnosis Iron deficiency anemia due to chronic blood loss- Primary Iron deficiency anemia secondary to blood loss (chronic) Thrombocytopenia (HCC) Thrombocytopenia, unspecified [facility] [place] [facility]* Diagnosis Iron deficiency anemia due to chronic blood loss- Primary Iron deficiency anemia secondary to blood loss (chronic) Thrombocytopenia (HCC) Thrombocytopenia, unspecified [facility] [place] [facility]* Diagnosis Dark stools Nonspecific abnormal finding in stool [facility] [place] [facility] Diagnosis S/P ICD (internal cardiac defibrillator) procedure- Primary Automatic implantable cardiac defibrillator in situ Hypertrophic obstructive cardiomyopathy (HOCM) (HCC) Hypertrophic obstructive cardiomyopathy Hyperlipidemia LDL goal <100 Other and unspecified hyperlipidemia Primary hypertension Unspecified essential hypertension Hepatic cirrhosis, unspecified hepatic cirrhosis type, unspecified whether ascites present (HCC) Portal vein thrombosis Controlled type 2 diabetes mellitus without complication, unspecified whether watermaster insulin use (HCC) Thrombocytopenia (HCC) Thrombocytopenia, unspecified [...] (HCC) Thrombocytopenia, unspecified [facility] Examination of participant in clinical trial- Primary [facility] Diagnosis Autoimmune hepatitis (HCC)- Primary Autoimmune [facility] Diagnosis Iron deficiency anemia due to chronic blood loss Iron deficiency anemia secondary to blood loss (chronic) [facility] Diagnosis Examination of participant in clinical trial- Primary [facility] Diagnosis Autoimmune hepatitis (HCC)- Primary Autoimmune hepatitis Encounter for screening for osteoporosis Special screening for osteoporosis Liver disease Unspecified disorder of liver Localized osteoporosis ([place]) Portal hypertension with esophageal varices (HCC) Portal hypertension [facility] Diagnosis Hypertrophic obstructive cardiomyopathy (HOCM) (HCC)- Primary Hypertrophic obstructive cardiomyopathy Other chest pain Primary hypertension Unspecified essential hypertension Hyperlipidemia LDL goal <100 Other and unspecified hyperlipidemia Venous insufficiency Unspecified venous (peripheral) insufficiency S/P ICD (internal cardiac defibrillator) procedure Automatic implantable cardiac defibrillator in situ [facility] Diagnosis Controlled type 2 diabetes mellitus without complication, unspecified whether watermaster insulin use (HCC)- Primary [facility] Diagnosis AK (actinic keratosis)- Primary Actinic keratosis [facility] Diagnosis Pre-operative examination- Primary Preoperative examination, unspecified Colon cancer screening Special screening for malignant neoplasms, colon Thrombocytopenia (HCC) Thrombocytopenia, unspecified Hypertrophic obstructive cardiomyopathy (HOCM) (HCC) Hypertrophic obstructive cardiomyopathy Type 2 diabetes mellitus without complication, unspecified whether fdc insulin use (HCC) Essential hypertension Unspecified essential [...] thrombosis documented in this encounter [facility] note* Diagnosis Pre-operative examination- Primary Preoperative examination, unspecified Colon cancer screening Special screening for malignant neoplasms, colon Thrombocytopenia (HCC) Thrombocytopenia, unspecified Hypertrophic obstructive cardiomyopathy (HOCM) (HCC) Hypertrophic obstructive cardiomyopathy Type 2 diabetes mellitus without complication, unspecified whether fdc insulin use (HCC) Essential hypertension Unspecified essential [...] (chronic) documented in this encounter [facility] note* Diagnosis Pre-operative examination- Primary Preoperative examination, unspecified Colon cancer screening Special screening for malignant neoplasms, colon Thrombocytopenia (HCC) Thrombocytopenia, unspecified Hypertrophic obstructive cardiomyopathy (HOCM) (HCC) Hypertrophic obstructive cardiomyopathy Type 2 diabetes mellitus without complication, unspecified whether fdc insulin use (HCC) Essential hypertension Unspecified essential [...] Pain in limb documented in this encounter [facility] note* Diagnosis Pre-operative examination- Primary Preoperative examination, unspecified Colon cancer screening Special screening for malignant neoplasms, colon Thrombocytopenia (HCC) Thrombocytopenia, unspecified Hypertrophic obstructive cardiomyopathy (HOCM) (HCC) Hypertrophic obstructive cardiomyopathy Type 2 diabetes mellitus without complication, unspecified whether watermaster insulin use (HCC) Essential hypertension Unspecified essential [...] foot, unspecified cause [facility] [place] [facility] Diagnosis Pre-operative examination- Primary Preoperative examination, unspecified Colon cancer screening Special screening for malignant neoplasms, colon Thrombocytopenia (HCC) Thrombocytopenia, unspecified Hypertrophic obstructive cardiomyopathy (HOCM) (HCC) Hypertrophic obstructive cardiomyopathy Type 2 diabetes mellitus without complication, unspecified whether fdc insulin use (HCC) Essential hypertension Unspecified essential [...] 2 diabetes mellitus without complication, unspecified whether watermaster insulin use (HCC) Thrombocytopenia (HCC) Thrombocytopenia, unspecified Iron deficiency anemia due to chronic blood loss Iron deficiency anemia secondary to blood loss (chronic) documented in this encounter [facility] note* Diagnosis Pre-operative examination- Primary Preoperative examination, unspecified Colon cancer screening Special screening for malignant neoplasms, colon Thrombocytopenia (HCC) Thrombocytopenia, unspecified Hypertrophic obstructive cardiomyopathy (HOCM) (HCC) Hypertrophic obstructive cardiomyopathy Type 2 diabetes mellitus without complication, unspecified whether fdc insulin use (HCC) Essential hypertension Unspecified essential [...] Primary Actinic keratosis [facility] [place] [facility] Diagnosis Pre-operative examination- Primary Preoperative examination, unspecified Colon cancer screening Special screening for malignant neoplasms, colon Thrombocytopenia (HCC) Thrombocytopenia, unspecified Hypertrophic obstructive cardiomyopathy (HOCM) (HCC) Hypertrophic obstructive cardiomyopathy Type 2 diabetes mellitus without complication, unspecified whether watermaster insulin use (HCC) Essential hypertension Unspecified essential [...] of optic disc documented in this encounter [facility] note* Diagnosis Pre-operative examination- Primary Preoperative examination, unspecified Colon cancer screening Special screening for malignant neoplasms, colon Thrombocytopenia (HCC) Thrombocytopenia, unspecified Hypertrophic obstructive cardiomyopathy (HOCM) (HCC) Hypertrophic obstructive cardiomyopathy Type 2 diabetes mellitus without complication, unspecified whether fdc insulin use (HCC) Essential hypertension Unspecified essential [...] Portal vein thrombosis [facility] [place] [facility] Diagnosis Pre-operative examination- Primary Preoperative examination, unspecified Colon cancer screening Special screening for malignant neoplasms, colon Thrombocytopenia (HCC) Thrombocytopenia, unspecified Hypertrophic obstructive cardiomyopathy (HOCM) (HCC) Hypertrophic obstructive cardiomyopathy Type 2 diabetes mellitus without complication, unspecified whether fdc insulin use (HCC) Essential hypertension Unspecified essential [...] pain, unspecified chronicity documented in this encounter [facility] note* Diagnosis Pre-operative examination- Primary Preoperative examination, unspecified Colon cancer screening Special screening for malignant neoplasms, colon Thrombocytopenia (HCC) Thrombocytopenia, unspecified Hypertrophic obstructive cardiomyopathy (HOCM) (HCC) Hypertrophic obstructive cardiomyopathy Type 2 diabetes mellitus without complication, unspecified whether fdc insulin use (HCC) Essential hypertension Unspecified essential [...] pain, unspecified chronicity documented in this encounter [facility] note* Diagnosis Pre-operative examination- Primary Preoperative examination, unspecified Colon cancer screening Special screening for malignant neoplasms, colon Thrombocytopenia (HCC) Thrombocytopenia, unspecified Hypertrophic obstructive cardiomyopathy (HOCM) (HCC) Hypertrophic obstructive cardiomyopathy Type 2 diabetes mellitus without complication, unspecified whether watermaster insulin use (HCC) Essential hypertension Unspecified essential [...] disorder of liver documented in this encounter [facility] note* Diagnosis Pre-operative examination- Primary Preoperative examination, unspecified Colon cancer screening Special screening for malignant neoplasms, colon Thrombocytopenia (HCC) Thrombocytopenia, unspecified Hypertrophic obstructive cardiomyopathy (HOCM) (HCC) Hypertrophic obstructive cardiomyopathy Type 2 diabetes mellitus without complication, unspecified whether watermaster insulin use (HCC) Essential hypertension Unspecified essential [...] Primary documented in this encounter [facility] note* Diagnosis Pre-operative examination- Primary Preoperative examination, unspecified Colon cancer screening Special screening for malignant neoplasms, colon Thrombocytopenia (HCC) Thrombocytopenia, unspecified Hypertrophic obstructive cardiomyopathy (HOCM) (HCC) Hypertrophic obstructive cardiomyopathy Type 2 diabetes mellitus without complication, unspecified whether fdc insulin use (HCC) Essential hypertension Unspecified essential [...] hepatitis documented in this encounter [facility] note* Diagnosis Pre-operative examination- Primary Preoperative examination, unspecified Colon cancer screening Special screening for malignant neoplasms, colon Thrombocytopenia (HCC) Thrombocytopenia, unspecified Hypertrophic obstructive cardiomyopathy (HOCM) (HCC) Hypertrophic obstructive cardiomyopathy Type 2 diabetes mellitus without complication, unspecified whether fdc insulin use (HCC) Essential hypertension Unspecified essential [...] CKD (HCC)- Primary documented in this encounter [facility] note* Diagnosis Pre-operative examination- Primary Preoperative examination, unspecified Colon cancer screening Special screening for malignant neoplasms, colon Thrombocytopenia (HCC) Thrombocytopenia, unspecified Hypertrophic obstructive cardiomyopathy (HOCM) (HCC) Hypertrophic obstructive cardiomyopathy Type 2 diabetes mellitus without complication, unspecified whether fdc insulin use (HCC) Essential hypertension Unspecified essential [...] of insulin (HCC) [facility] [place] [facility]* Diagnosis Pre-operative examination- Primary Preoperative examination, unspecified Colon cancer screening Special screening for malignant neoplasms, colon Thrombocytopenia (HCC) Thrombocytopenia, unspecified Hypertrophic obstructive cardiomyopathy (HOCM) (HCC) Hypertrophic obstructive cardiomyopathy Type 2 diabetes mellitus without complication, unspecified whether fdc insulin use (HCC) Essential hypertension Unspecified essential [...] thrombosis documented in this encounter [facility] note* Diagnosis Pre-operative examination- Primary Preoperative examination, unspecified Colon cancer screening Special screening for malignant neoplasms, colon Thrombocytopenia (HCC) Thrombocytopenia, unspecified Hypertrophic obstructive cardiomyopathy (HOCM) (HCC) Hypertrophic obstructive cardiomyopathy Type 2 diabetes mellitus without complication, unspecified whether watermaster insulin use (HCC) Essential hypertension Unspecified essential [...] diabetes mellitus with diabetic neuropathy, unspecified whether fdc insulin use (HCC) Cirrhosis of liver without ascites, unspecified hepatic cirrhosis type (HCC) Esophageal varices without bleeding, unspecified esophageal varices type (HCC) Controlled type 2 diabetes mellitus without complication, with long-term current use of insulin (HCC) Microscopic hematuria URI, acute Acute upper respiratory infections of unspecified site Nausea Nausea alone documented in this encounter [facility] note* Diagnosis Pre-operative examination- Primary Preoperative examination, unspecified Colon cancer screening Special screening for malignant neoplasms, colon Thrombocytopenia (HCC) Thrombocytopenia, unspecified Hypertrophic obstructive cardiomyopathy (HOCM) (HCC) Hypertrophic obstructive cardiomyopathy Type 2 diabetes mellitus without complication, unspecified whether fdc insulin use (HCC) Essential hypertension Unspecified essential [...] Primary documented in this encounter [facility] note* Diagnosis Pre-operative examination- Primary Preoperative examination, unspecified Colon cancer screening Special screening for malignant neoplasms, colon Thrombocytopenia (HCC) Thrombocytopenia, unspecified Hypertrophic obstructive cardiomyopathy (HOCM) (HCC) Hypertrophic obstructive cardiomyopathy Type 2 diabetes mellitus without complication, unspecified whether fdc insulin use (HCC) Essential hypertension Unspecified essential [...] examination of urine documented in this encounter [facility] note* Diagnosis Pre-operative examination- Primary Preoperative examination, unspecified Colon cancer screening Special screening for malignant neoplasms, colon Thrombocytopenia (HCC) Thrombocytopenia, unspecified Hypertrophic obstructive cardiomyopathy (HOCM) (HCC) Hypertrophic obstructive cardiomyopathy Type 2 diabetes mellitus without complication, unspecified whether fdc insulin use (HCC) Essential hypertension Unspecified essential [...] vein thrombosis- Primary documented in this encounter [facility] note* Diagnosis Pre-operative examination- Primary Preoperative examination, unspecified Colon cancer screening Special screening for malignant neoplasms, colon Thrombocytopenia (HCC) Thrombocytopenia, unspecified Hypertrophic obstructive cardiomyopathy (HOCM) (HCC) Hypertrophic obstructive cardiomyopathy Type 2 diabetes mellitus without complication, unspecified whether fdc insulin use (HCC) Essential hypertension Unspecified essential [...] hepatitis documented in this encounter [facility] note* Diagnosis Pre-operative examination- Primary Preoperative examination, unspecified Colon cancer screening Special screening for malignant neoplasms, colon Thrombocytopenia (HCC) Thrombocytopenia, unspecified Hypertrophic obstructive cardiomyopathy (HOCM) (HCC) Hypertrophic obstructive cardiomyopathy Type 2 diabetes mellitus without complication, unspecified whether fdc insulin use (HCC) Essential hypertension Unspecified essential [...] cardiomyopathy documented in this encounter [facility] note* Diagnosis Pre-operative examination- Primary Preoperative examination, unspecified Colon cancer screening Special screening for malignant neoplasms, colon Thrombocytopenia (HCC) Thrombocytopenia, unspecified Hypertrophic obstructive cardiomyopathy (HOCM) (HCC) Hypertrophic obstructive cardiomyopathy Type 2 diabetes mellitus without complication, unspecified whether watermaster insulin use (HCC) Essential hypertension Unspecified essential [...] of liver (HCC) documented in this encounter [facility] note* Diagnosis Pre-operative examination- Primary Preoperative examination, unspecified Colon cancer screening Special screening for malignant neoplasms, colon Thrombocytopenia (HCC) Thrombocytopenia, unspecified Hypertrophic obstructive cardiomyopathy (HOCM) (HCC) Hypertrophic obstructive cardiomyopathy Type 2 diabetes mellitus without complication, unspecified whether fdc insulin use (HCC) Essential hypertension Unspecified essential [...] Primary documented in this encounter [facility] note* Diagnosis Pre-operative examination- Primary Preoperative examination, unspecified Colon cancer screening Special screening for malignant neoplasms, colon Thrombocytopenia (HCC) Thrombocytopenia, unspecified Hypertrophic obstructive cardiomyopathy (HOCM) (HCC) Hypertrophic obstructive cardiomyopathy Type 2 diabetes mellitus without complication, unspecified whether watermaster insulin use (HCC) Essential hypertension Unspecified essential [...] diabetes mellitus with diabetic neuropathy, unspecified whether fdc insulin use (HCC) Cirrhosis of liver without ascites, unspecified hepatic cirrhosis type (HCC) Esophageal varices without bleeding, unspecified esophageal varices type (HCC) Hyperlipidemia LDL goal <100 Other and unspecified hyperlipidemia Autoimmune hepatitis (HCC) Autoimmune hepatitis Stage 3a chronic kidney disease (HCC) URI, acute Acute upper respiratory infections of unspecified site documented in this encounter [facility] note* Diagnosis Pre-operative examination- Primary Preoperative examination, unspecified Colon cancer screening Special screening for malignant neoplasms, colon Thrombocytopenia (HCC) Thrombocytopenia, unspecified Hypertrophic obstructive cardiomyopathy (HOCM) (HCC) Hypertrophic obstructive cardiomyopathy Type 2 diabetes mellitus without complication, unspecified whether fdc insulin use (HCC) Essential hypertension Unspecified essential [...] hypertension documented in this encounter [facility] note* Diagnosis Pre-operative examination- Primary Preoperative examination, unspecified Colon cancer screening Special screening for malignant neoplasms, colon Thrombocytopenia (HCC) Thrombocytopenia, unspecified Hypertrophic obstructive cardiomyopathy (HOCM) (HCC) Hypertrophic obstructive cardiomyopathy Type 2 diabetes mellitus without complication, unspecified whether watermaster insulin use (HCC) Essential hypertension Unspecified essential [...] Primary documented in this encounter [facility] note* Diagnosis Pre-operative examination- Primary Preoperative examination, unspecified Colon cancer screening Special screening for malignant neoplasms, colon Thrombocytopenia (HCC) Thrombocytopenia, unspecified Hypertrophic obstructive cardiomyopathy (HOCM) (HCC) Hypertrophic obstructive cardiomyopathy Type 2 diabetes mellitus without complication, unspecified whether fdc insulin use (HCC) Essential hypertension Unspecified essential [...] bronchitis, unspecified organism documented in this encounter [facility] note* Diagnosis Pre-operative examination- Primary Preoperative examination, unspecified Colon cancer screening Special screening for malignant neoplasms, colon Thrombocytopenia (HCC) Thrombocytopenia, unspecified Hypertrophic obstructive cardiomyopathy (HOCM) (HCC) Hypertrophic obstructive cardiomyopathy Type 2 diabetes mellitus without complication, unspecified whether fdc insulin use (HCC) Essential hypertension Unspecified essential [...] thrombosis documented in this encounter [facility] note* Diagnosis Pre-operative examination- Primary Preoperative examination, unspecified Colon cancer screening Special screening for malignant neoplasms, colon Thrombocytopenia (HCC) Thrombocytopenia, unspecified Hypertrophic obstructive cardiomyopathy (HOCM) (HCC) Hypertrophic obstructive cardiomyopathy Type 2 diabetes mellitus without complication, unspecified whether fdc insulin use (HCC) Essential hypertension Unspecified essential [...] Other hypertrophic cardiomyopathy [facility] [place] [facility] Diagnosis Pre-operative examination- Primary Preoperative examination, unspecified Colon cancer screening Special screening for malignant neoplasms, colon Thrombocytopenia (HCC) Thrombocytopenia, unspecified Hypertrophic obstructive cardiomyopathy (HOCM) (HCC) Hypertrophic obstructive cardiomyopathy Type 2 diabetes mellitus without complication, unspecified whether fdc insulin use (HCC) Essential hypertension Unspecified essential [...] bronchitis, unspecified organism [facility] [place] [facility]* Diagnosis Pre-operative examination- Primary Preoperative examination, unspecified Colon cancer screening Special screening for malignant neoplasms, colon Thrombocytopenia (HCC) Thrombocytopenia, unspecified Hypertrophic obstructive cardiomyopathy (HOCM) (HCC) Hypertrophic obstructive cardiomyopathy Type 2 diabetes mellitus without complication, unspecified whether fdc insulin use (HCC) Essential hypertension Unspecified essential [...] bronchitis, unspecified organism [facility] [place] [facility]* Diagnosis Pre-operative examination- Primary Preoperative examination, unspecified Colon cancer screening Special screening for malignant neoplasms, colon Thrombocytopenia (HCC) Thrombocytopenia, unspecified Hypertrophic obstructive cardiomyopathy (HOCM) (HCC) Hypertrophic obstructive cardiomyopathy Type 2 diabetes mellitus without complication, unspecified whether fdc insulin use (HCC) Essential hypertension Unspecified essential [...] defibrillator in situ [facility] [place] [facility] Diagnosis Pre-operative examination- Primary Preoperative examination, unspecified Colon cancer screening Special screening for malignant neoplasms, colon Thrombocytopenia Thrombocytopenia, unspecified Hypertrophic obstructive cardiomyopathy (HOCM) (HCC) Hypertrophic obstructive cardiomyopathy Type 2 diabetes mellitus without complication, unspecified whether fdc insulin use (HCC) Essential hypertension Unspecified essential [...] 2 diabetes mellitus without complication, unspecified whether watermaster insulin use (HCC)- Primary documented in this encounter [facility] note* Diagnosis Pre-operative examination- Primary Preoperative examination, unspecified Colon cancer screening Special screening for malignant neoplasms, colon Thrombocytopenia Thrombocytopenia, unspecified Hypertrophic obstructive cardiomyopathy (HOCM) (HCC) Hypertrophic obstructive cardiomyopathy Type 2 diabetes mellitus without complication, unspecified whether watermaster insulin use (HCC) Essential hypertension Unspecified essential [...] Immune thrombocytopenic purpura [facility] [place] [facility] Diagnosis Pre-operative examination- Primary Preoperative examination, unspecified Colon cancer screening Special screening for malignant neoplasms, colon Thrombocytopenia Thrombocytopenia, unspecified Hypertrophic obstructive cardiomyopathy (HOCM) (HCC) Hypertrophic obstructive cardiomyopathy Type 2 diabetes mellitus without complication, unspecified whether watermaster insulin use (HCC) Essential hypertension Unspecified essential [...] Unspecified pruritic disorder [facility] [place] [facility]* Diagnosis Pre-operative examination- Primary Preoperative examination, unspecified Colon cancer screening Special screening for malignant neoplasms, colon Thrombocytopenia Thrombocytopenia, unspecified Hypertrophic obstructive cardiomyopathy (HOCM) (HCC) Hypertrophic obstructive cardiomyopathy Type 2 diabetes mellitus without complication, unspecified whether fdc insulin use (HCC) Essential hypertension Unspecified essential [...] unspecified documented in this encounter [facility] note* Diagnosis Pre-operative examination- Primary Preoperative examination, unspecified Colon cancer screening Special screening for malignant neoplasms, colon Thrombocytopenia Thrombocytopenia, unspecified Hypertrophic obstructive cardiomyopathy (HOCM) (HCC) Hypertrophic obstructive cardiomyopathy Type 2 diabetes mellitus without complication, unspecified whether fdc insulin use (HCC) Essential hypertension Unspecified essential [...] Thrombocytopenia Thrombocytopenia, unspecified [facility] [place] [facility] Diagnosis Pre-operative examination- Primary Preoperative examination, unspecified Colon cancer screening Special screening for malignant neoplasms, colon Thrombocytopenia Thrombocytopenia, unspecified Hypertrophic obstructive cardiomyopathy (HOCM) (HCC) Hypertrophic obstructive cardiomyopathy Type 2 diabetes mellitus without complication, unspecified whether fdc insulin use (HCC) Essential hypertension Unspecified essential [...] of right shoulder [facility] [place] [facility]* Diagnosis Pre-operative examination- Primary Preoperative examination, unspecified Colon cancer screening Special screening for malignant neoplasms, colon Thrombocytopenia Thrombocytopenia, unspecified Hypertrophic obstructive cardiomyopathy (HOCM) (HCC) Hypertrophic obstructive cardiomyopathy Type 2 diabetes mellitus without complication, unspecified whether fdc insulin use (HCC) Essential hypertension Unspecified essential [...] thrombosis documented in this encounter [facility] note* Diagnosis Pre-operative examination- Primary Preoperative examination, unspecified Colon cancer screening Special screening for malignant neoplasms, colon Thrombocytopenia Thrombocytopenia, unspecified Hypertrophic obstructive cardiomyopathy (HOCM) (HCC) Hypertrophic obstructive cardiomyopathy Type 2 diabetes mellitus without complication, unspecified whether fdc insulin use (HCC) Essential hypertension Unspecified essential [...] disease (HCC)- Primary [facility] [place] [facility]* Diagnosis Pre-operative examination- Primary Preoperative examination, unspecified Colon cancer screening Special screening for malignant neoplasms, colon Thrombocytopenia Thrombocytopenia, unspecified Hypertrophic obstructive cardiomyopathy (HOCM) (HCC) Hypertrophic obstructive cardiomyopathy Type 2 diabetes mellitus without complication, unspecified whether fdc insulin use (HCC) Essential hypertension Unspecified essential [...] of left knee [facility] [place] [facility]* Diagnosis Pre-operative examination- Primary Preoperative examination, unspecified Colon cancer screening Special screening for malignant neoplasms, colon Thrombocytopenia Thrombocytopenia, unspecified Hypertrophic obstructive cardiomyopathy (HOCM) (HCC) Hypertrophic obstructive cardiomyopathy Type 2 diabetes mellitus without complication, unspecified whether watermaster insulin use (HCC) Essential hypertension Unspecified essential [...] Neck pain Cervicalgia [facility] [place] [facility]* Diagnosis Pre-operative examination- Primary Preoperative examination, unspecified Colon cancer screening Special screening for malignant neoplasms, colon Thrombocytopenia Thrombocytopenia, unspecified Hypertrophic obstructive cardiomyopathy (HOCM) (HCC) Hypertrophic obstructive cardiomyopathy Type 2 diabetes mellitus without complication, unspecified whether fdc insulin use (HCC) Essential hypertension Unspecified essential [...] region documented in this encounter [facility] note* Diagnosis Pre-operative examination- Primary Preoperative examination, unspecified Colon cancer screening Special screening for malignant neoplasms, colon Thrombocytopenia Thrombocytopenia, unspecified Hypertrophic obstructive cardiomyopathy (HOCM) (HCC) Hypertrophic obstructive cardiomyopathy Type 2 diabetes mellitus without complication, unspecified whether watermaster insulin use (HCC) Essential hypertension Unspecified essential [...] myelopathy documented in this encounter [facility] note* Diagnosis Pre-operative examination- Primary Preoperative examination, unspecified Colon cancer screening Special screening for malignant neoplasms, colon Thrombocytopenia Thrombocytopenia, unspecified Hypertrophic obstructive cardiomyopathy (HOCM) (HCC) Hypertrophic obstructive cardiomyopathy Type 2 diabetes mellitus without complication, unspecified whether watermaster insulin use (HCC) Essential hypertension Unspecified essential [...] unspecified documented in this encounter [facility] note* Diagnosis Pre-operative examination- Primary Preoperative examination, unspecified Colon cancer screening Special screening for malignant neoplasms, colon Thrombocytopenia Thrombocytopenia, unspecified Hypertrophic obstructive cardiomyopathy (HOCM) (HCC) Hypertrophic obstructive cardiomyopathy Type 2 diabetes mellitus without complication, unspecified whether fdc insulin use (HCC) Essential hypertension Unspecified essential [...] referable to back [facility] [place] [facility] Diagnosis Pre-operative examination- Primary Preoperative examination, unspecified Colon cancer screening Special screening for malignant neoplasms, colon Thrombocytopenia Thrombocytopenia, unspecified Hypertrophic obstructive cardiomyopathy (HOCM) (HCC) Hypertrophic obstructive cardiomyopathy Type 2 diabetes mellitus without complication, unspecified whether watermaster insulin use (HCC) Essential hypertension Unspecified essential [...] referable to back [facility] [place] [facility]* Diagnosis Pre-operative examination- Primary Preoperative examination, unspecified Colon cancer screening Special screening for malignant neoplasms, colon Thrombocytopenia Thrombocytopenia, unspecified Hypertrophic obstructive cardiomyopathy (HOCM) (HCC) Hypertrophic obstructive cardiomyopathy Type 2 diabetes mellitus without complication, unspecified whether fdc insulin use (HCC) Essential hypertension Unspecified essential [...] back documented in this encounter [facility] note* Diagnosis Pre-operative examination- Primary Preoperative examination, unspecified Colon cancer screening Special screening for malignant neoplasms, colon Thrombocytopenia Thrombocytopenia, unspecified Hypertrophic obstructive cardiomyopathy (HOCM) (HCC) Hypertrophic obstructive cardiomyopathy Type 2 diabetes mellitus without complication, unspecified whether fdc insulin use (HCC) Essential hypertension Unspecified essential [...] referable to back [facility] [place] [facility]* Diagnosis Pre-operative examination- Primary Preoperative examination, unspecified Colon cancer screening Special screening for malignant neoplasms, colon Thrombocytopenia Thrombocytopenia, unspecified Hypertrophic obstructive cardiomyopathy (HOCM) (HCC) Hypertrophic obstructive cardiomyopathy Type 2 diabetes mellitus without complication, unspecified whether fdc insulin use (HCC) Essential hypertension Unspecified essential [...] back documented in this encounter [facility] note* Diagnosis Pre-operative examination- Primary Preoperative examination, unspecified Colon cancer screening Special screening for malignant neoplasms, colon Thrombocytopenia Thrombocytopenia, unspecified Hypertrophic obstructive cardiomyopathy (HOCM) (HCC) Hypertrophic obstructive cardiomyopathy Type 2 diabetes mellitus without complication, unspecified whether watermaster insulin use (HCC) Essential hypertension Unspecified essential [...] referable to back [facility] Additional Instructions Follow-up with primary care physician. Muscle relaxers as needed for pain. You received a muscle relaxer here in the emergency department. No muscle relaxer for 8 hours. As relaxers can increase falls, cause lightheadedness, weakness, fatigue. Do not drive or operate heavy machinery while taking these. Recommend gentle stretching and heat. Activity as tolerated. [facility] Work Phone: Hospital Discharge instructionsAdditional Instructions Your viral swab for COVID influenza and RSV was negative. Your chest x-ray shows no acute pneumonia. However with your symptoms and immunosuppression there is concern for developing infection and therefore take the doxycycline/antibiotic as directed. If your symptoms are worsening or you have any further concerns please return to the ER for repeat evaluation. [facility] Work Phone: Reason for referral (narrative)* Diagnostic Procedure Only (Routine) - Authorized Specialty Diagnoses / Procedures Referred By Theresa troy Referred To Contact US IMAGING Diagnoses Autoimmune hepatitis (HCC) Procedures US DOPPLER COMPLETE DUP-SCAN ARTL LOVELY ABDL/PEL/SCROT&/RPR ORGN COM Derrek Bear MD [address] [place] [address] Us Imaging Referral ID Status Reason Start Date Expiration Date Visits Requested Visits Authorized [id number] Authorized Auto-Generat ed Referral 06/24/2021 07/24/2022 1 1 * Diagnostic Procedure Only (Routine) - Authorized Specialty Diagnoses / Procedures Referred By Contac t Referred To Contact US IMAGING Diagnoses Autoimmune hepatitis (HCC) Procedures US ABD LIVER VASCULAR US ABDOMINAL REAL TIME W/IMAGE LIMITED DUP-SCAN ARTL LOVELY ABDL/PEL/SCROT&/RPR ORGN COM Derrek Bear MD [address] [place] [address] Us Imaging Referral ID Status Reason Start Date Expiration Date Visits Requested Visits Authorized [id number] Authorized Auto-Generat ed Referral 06/24/2021 07/24/2022 1 1 [facility] for referral (narrative)* Diagnostic Procedure Only (Routine) - Closed Specialty Diagnoses / Procedures Referred By Aleshiaac t Referred To Contact US IMAGING Diagnoses Autoimmune hepatitis (HCC) Procedures US DOPPLER COMPLETE DUP-SCAN ARTL LOVELY ABDL/PEL/SCROT&/RPR ORGN COM Derrek Bear MD [address] [place] [address] Us Imaging Referral ID Status Reason Start Date Expiration Date V isits Requested Visits Authorized [id number] Closed Auto-Generate d Referral 06/24/2021 07/24/2022 1 1 * Diagnostic Procedure Only (Routine) - Closed Specialty Diagnoses / Procedures Referred By Aleshiaac t Referred To Contact US IMAGING Diagnoses Autoimmune hepatitis (HCC) Procedures US ABD LIVER VASCULAR US ABDOMINAL REAL TIME W/IMAGE LIMITED DUP-SCAN ARTL LOVELY ABDL/PEL/SCROT&/RPR ORGN [facility] Derrek Bear MD [address] [place] [address] Us Imaging Referral ID Status Reason Start Date Expiration Date V isits Requested Visits Authorized [id number] Closed Auto-Generate d Referral 06/24/2021 07/24/2022 1 1 [facility] for referral (narrative)* Diagnostic Procedure Only (Routine) - Pending Review Specialty Diagnoses / Procedures Referred By Theresa t Referred To Contact US IMAGING Diagnoses Autoimmune hepatitis (HCC) Procedures US DOPPLER COMPLETE DUP-SCAN ARTL LOVELY ABDL/PEL/SCROT&/RPR ORGN COM Derrek Bear MD [address] [place] [address] Us Imaging Referral ID Status Reason Start Date Expiration Date Visits Requested Visits Authorized [id number] Pending Review Auto-Generat ed Referral 10/13/2021 11/12/2022 1 1 * Diagnostic Procedure Only (Routine) - Pending Review Specialty Diagnoses / Procedures Referred By Aleshiaac t Referred To Contact US IMAGING Diagnoses Autoimmune hepatitis (HCC) Procedures US ABD LIVER VASCULAR US ABDOMINAL REAL TIME W/IMAGE LIMITED DUP-SCAN ARTL LOVELY ABDL/PEL/SCROT&/RPR ORGN COM Derrek Bear MD [address] [place] [address] Us Imaging Referral ID Status Reason Start Date Expiration Date Visits Requested Visits Authorized [id number] Pending Review Auto-Generat ed Referral 10/13/2021 11/12/2022 1 1 [facility] for referral (narrative)* Outpatient Procedure (Routine) - Pending Review Specialty Diagnoses / Procedures Referred By Theresa t Referred [facility] Diagnoses Hypertrophic obstructive cardiomyopathy (HOCM) (HCC) S/P ICD (internal cardiac defibrillator) procedure Procedures ECHO ECHO TTHRC R-T 2D W/WOM-MODE COMPL SPEC&COLR D Bernadette Munguia MD [address] [place] [address] [facility] [place] [id number] [place] [address] Referral ID Status Reason Start Date Expiration Date Visits Requested Visits Authorized [id number] Pending Review Auto-Generat ed Referral 10/20/2021 10/20/2022 1 1 [facility] for referral (narrative)* Diagnostic Procedure Only (Routine) - Closed Specialty Diagnoses / Procedures [facility] Referred To Contact US IMAGING Diagnoses Autoimmune hepatitis (HCC) Procedures US DOPPLER COMPLETE DUP-SCAN ARTL LOVELY ABDL/PEL/SCROT&/RPR ORGN COM Derrek Bear MD [address] [place] [address] Us Imaging Referral ID Status Reason Start Date Expiration Date V isits Requested Visits Authorized [id number] Closed Auto-Generate d Referral 10/13/2021 11/12/2022 1 1 * Diagnostic Procedure Only (Routine) - Closed Specialty Diagnoses / Procedures Referred By Contac t Referred To Contact US IMAGING Diagnoses Autoimmune hepatitis (HCC) Procedures US ABD LIVER VASCULAR US ABDOMINAL REAL TIME W/IMAGE LIMITED DUP-SCAN ARTL LOVELY ABDL/PEL/SCROT&/RPR ORGN COM Derrek Bear MD [address] [place] [id number] Us Imaging Referral ID Status Reason Start Date Expiration Date V isits Requested Visits Authorized [id number] Closed Auto-Generate d Referral 10/13/2021 11/12/2022 1 1 [facility] for referral (narrative)* Outpatient Procedure (Routine) - Authorized Specialty Diagnoses / Procedures Referred By Contac t Referred To Contact [facility] Diagnoses HOCM (hypertrophic obstructive cardiomyopathy) (HCC) Procedures ECG COMPLETE ECG ROUTINE ECG W/LEAST 12 LDS W/I&R Nova Shahid MD [address] [id number] [facility] [phone] [place] [address] Referral ID Status Reason Start Date Expiration Date Visits Requested Visits Authorized [id number] Authorized Auto-Generat ed Referral 05/20/2022 05/20/2023 1 1 [facility] for referral (narrative)* Outpatient Procedure (Routine) - Authorized Specialty Diagnoses / Procedures Referred By Contac t Referred To Contact [facility] Diagnoses Hypertrophic obstructive cardiomyopathy (HOCM) (HCC) Procedures ECHO ECHO TTHRC R-T 2D W/WOM-MODE COMPL SPEC&COLR D Bernadette Munguia MD [address] [place] [address] [facility] [place] [place] [address] Referral ID Status Reason Start Date Expiration Date Visits Requested Visits Authorized [id number] Authorized Auto-Generat ed Referral 07/13/2022 07/13/2023 1 1 * Outpatient Procedure (Routine) - Authorized Specialty Diagnoses / Procedures [facility] Referred To Contact [facility] Diagnoses Hypertrophic obstructive cardiomyopathy (HOCM) (HCC) Procedures ECG COMPLETE ECG ROUTINE ECG W/LEAST 12 LDS W/I&R Bernadette Munguia MD [address] [place] [address] [facility] [place] [phone] Referral ID Status Reason Start Date Expiration Date Visits Requested Visits Authorized [id number] Authorized Auto-Generat ed Referral 07/07/2022 07/07/2023 1 1 [facility] for referral (narrative)* Diagnostic Procedure Only (Routine) - Closed Specialty Diagnoses / Procedures [facility] Referred To Contact US IMAGING Diagnoses Autoimmune hepatitis (HCC) Procedures US DOPPLER COMPLETE DUP-SCAN ARTL LOVELY ABDL/PEL/SCROT&/RPR ORGN COM Derrek Bear MD [address] [place] [address] Us Imaging Referral ID Status Reason Start Date Expiration Date V isits Requested Visits Authorized [id number] Closed Auto-Generate d Referral 04/13/2022 05/13/2023 1 1 * Diagnostic Procedure Only (Routine) - Closed Specialty Diagnoses / Procedures [facility]erred To Contact [facility] IMAGING Diagnoses Autoimmune hepatitis (HCC) Procedures US ABD LIVER VASCULAR US ABDOMINAL REAL TIME W/IMAGE LIMITED DUP-SCAN ARTL LOVELY ABDL/PEL/SCROT&/RPR ORGN COM Derrek Bear MD [address] [place] [address] Us Imaging Referral ID Status Reason Start Date Expiration Date V isits Requested Visits Authorized [id number] Closed Auto-Generate d Referral 04/13/2022 05/13/2023 1 1 [facility] for referral (narrative)* Diagnostic Procedure Only (Routine) - Pending Review Specialty Diagnoses / Procedures Referred By Contac t Referred To Contact US IMAGING Diagnoses Autoimmune hepatitis (HCC) Procedures US DOPPLER COMPLETE DUP-SCAN ARTL LOVELY ABDL/PEL/SCROT&/RPR ORGN [facility] Derrek Bear MD [address] [place] [address] Us Imaging Referral ID Status Reason Start Date Expiration Date Visits Requested Visits Authorized [id number] Pending Review Auto-Generat ed Referral 09/23/2022 10/23/2023 1 1 * Diagnostic Procedure Only (Routine) - Pending Review Specialty Diagnoses / Procedures Referred By Theresa troy Referred To Contact US IMAGING Diagnoses Autoimmune hepatitis (HCC) Procedures US ABD LIVER VASCULAR US ABDOMINAL REAL TIME W/IMAGE LIMITED DUP-SCAN ARTL LOVELY ABDL/PEL/SCROT&/RPR ORGN COM Derrek Bear MD [address] [place] [address] Us Imaging Referral ID Status Reason Start Date Expiration Date Visits Requested Visits Authorized [id number] Pending Review Auto-Generat ed Referral 09/23/2022 10/23/2023 1 1 * Consult, Test, Treat (Routine) - Authorized Specialty Diagnoses / Procedures Referred By Theresa t Referred To Contact Endocrinology Diagnoses Controlled type 2 diabetes mellitus without complication, unspecified whether watermaster insulin use (HCC) Procedures CONSULT TO ENDOCRINOLOGY OFFICE/OUTPATIENT [facility] MDM 60-74 MINUTES Derrek Bear MD [address] [place] [address] Referral ID Status Reason Start Date Expiration Date Visits Requested Visits Authorized [id number] Authorized PCP Requested Referral 09/23/2022 09/23/2023 1 1 [facility] for referral (narrative)* Diagnostic Procedure Only (Routine) - Closed Specialty Diagnoses / Procedures Referred By Contac t Referred To Contact US IMAGING Diagnoses Autoimmune hepatitis (HCC) Procedures US DOPPLER COMPLETE DUP-SCAN ARTL LOVELY ABDL/PEL/SCROT&/RPR ORGN COM Derrek Bear MD [address] [place] [address] Us Imaging [place] [address] Referral ID Status Reason Start Date Expiration Date V isits Requested Visits Authorized [id number] Closed Auto-Generate d Referral 09/23/2022 10/23/2023 1 1 * Diagnostic Procedure Only (Routine) - Closed Specialty Diagnoses / Procedures [facility] Referred To Contact US IMAGING Diagnoses Autoimmune hepatitis (HCC) Procedures US ABD LIVER VASCULAR US ABDOMINAL REAL TIME W/IMAGE LIMITED DUP-SCAN ARTL LOVELY ABDL/PEL/SCROT&/RPR ORGN [facility] Derrek Bear MD [address] [place] [address] Us Imaging [place] [address] Referral ID Status Reason Start Date Expiration Date V isits Requested Visits Authorized [id number] Closed Auto-Generate d Referral 09/23/2022 10/23/2023 1 1 [facility] for referral (narrative)* Outpatient Procedure (Routine) - Pending Review Specialty Diagnoses / Procedures Referred By Theresa t Referred To Contact [facility] Diagnoses Autoimmune hepatitis (HCC) Procedures DDI VIBRATION CONTROLLED TRANSIENT ELASTOGRAPHY (VCTE) LIVER ELASTOGRAPHY W/O IMAG W/I&R Derrek Bear MD [address] [place] [phone] [facility] [place] [address] [place] [address] Referral ID Status Reason Start Date Expiration Date Visits Requested Visits Authorized [id number] Pending Review Auto-Generat ed Referral 06/15/2023 06/14/2024 1 1 * Diagnostic Procedure Only (Routine) - Authorized Specialty Diagnoses / Procedures Referred By Theresa t Referred To Contact US IMAGING Diagnoses Iron deficiency anemia due to chronic blood loss Procedures US DOPPLER COMPLETE DUP-SCAN ARTL LOVELY ABDL/PEL/SCROT&/RPR ORGN COM Derrek Bear MD [address] [place] [phone] Us Imaging [place] [address] Referral ID Status Reason Start Date Expiration Date Visits Requested Visits Authorized [id number] Authorized Auto-Generat ed Referral 06/15/2023 07/14/2024 1 1 * Diagnostic Procedure Only (Routine) - Authorized Specialty Diagnoses / Procedures Referred By Theresa troy Referred To Contact US IMAGING Diagnoses Iron deficiency anemia due to chronic blood loss Procedures US ABD LIVER VASCULAR US ABDOMINAL REAL TIME W/IMAGE LIMITED DUP-SCAN ARTL LOVELY ABDL/PEL/SCROT&/RPR ORGN [facility] Derrek Bear MD [address] [place] [phone] Us Imaging [place] [address] Referral ID Status Reason Start Date Expiration Date Visits Requested Visits Authorized [id number] Authorized Auto-Generat ed Referral 06/15/2023 07/14/2024 1 1 * Consult, Test, Treat (Routine) - Authorized Specialty Diagnoses / Procedures Referred By Theresa troy Referred To Contact Diagnoses Iron deficiency anemia due to chronic blood loss Procedures CONSULT TO HEMATOLOGY/ONCOLOGY OFFICE/OUTPATIENT [facility] 60 MINUTES Derrek Bear MD [address] [place] [address] Referral ID Status Reason Start Date Expiration Date Visits Requested Visits Authorized [id number] Authorized PCP Requested Referral 06/15/2023 06/14/2024 1 1 [facility] for referral (narrative)* Outpatient Procedure (Routine) - Closed Specialty Diagnoses / Procedures Referred By Theresa troy Referred To Contact [facility] Diagnoses Dark stools Procedures EGD - THERAPEUTIC, EUS, OR TUBE INTERVENTIONS EGD BAND LIGATION ESOPHGEAL/GASTRIC VARICES Derrek Bear MD [address] [phone] [place] [id number] Referral ID Status Reason Start Date Expiration Date V isits Requested Visits Authorized [id number] Closed Auto-Generate d Referral 04/09/2023 04/09/2024 1 1 [facility] for referral (narrative)* Diagnostic Procedure Only (Routine) - Closed Specialty Diagnoses / Procedures Referred By Theresa troy Referred To Contact US IMAGING Diagnoses Iron deficiency anemia due to chronic blood loss Procedures US DOPPLER COMPLETE DUP-SCAN ARTL LOVELY ABDL/PEL/SCROT&/RPR ORGN COM Derrek Bear MD [address] [place] [address] Us Imaging [id number] Referral ID Status Reason Start Date Expiration Date V isits Requested Visits Authorized [id number] Closed Auto-Generate d Referral 06/15/2023 07/14/2024 1 1 * Diagnostic Procedure Only (Routine) - Closed Specialty Diagnoses / Procedures Referred By Theresa troy Referred To Contact US IMAGING Diagnoses Iron deficiency anemia due to chronic blood loss Procedures US ABD LIVER VASCULAR US ABDOMINAL REAL TIME W/IMAGE LIMITED DUP-SCAN ARTL LOVELY ABDL/PEL/SCROT&/RPR ORGN COM Derrek Bear MD [address] [place] [address] [place] [address] Referral ID Status Reason Start Date Expiration Date V isits Requested Visits Authorized [id number] Closed Auto-Generate d Referral 06/15/2023 07/14/2024 1 1 [facility] for referral (narrative)* Diagnostic Procedure Only (Routine) - Closed Specialty Diagnoses / Procedures Referred By Contac t Referred To Contact XR IMAGING Diagnoses Foot pain, right Procedures XR FOOT GENERAL 3V AP/LAT/OBL RIGHT RADEX FOOT COMPLETE MINIMUM 3 [place] [address] [place] [address] [place] [address] Referral ID Status Reason Start Date Expiration Date V isits Requested Visits Authorized [id number] Closed Auto-Generate d Referral 10/14/2022 11/13/2023 1 1 * Diagnostic Procedure Only (Routine) - Closed Specialty Diagnoses / Procedures Referred By Contac t Referred To Contact XR IMAGING Diagnoses DDD (degenerative disc disease), cervical Procedures XR CERV OTHER 4V AP/LAT/OBL RADEX SPINE CERVICAL 4 OR 5 VIEWS Davis May MD [address] [place] [address] Xr Imaging [id number] Referral ID Status Reason Start Date Expiration Date V isits Requested Visits Authorized [id number] Closed Auto-Generate d Referral 10/14/2022 11/13/2023 1 1 [facility] for referral (narrative)* Diagnostic Procedure Only (Routine) - New Request Specialty Diagnoses / Procedures Referred By Contac t Referred To Contact US IMAGING Diagnoses Stage 3a chronic kidney disease (HCC) Encounter for screening for human immunodeficiency virus (HIV) Procedures US KIDNEY/BLADDER US RETROPERITONEAL REAL TIME W/[place] [address] [place] [address] Us Imaging [place] [address] Referral ID Status Reason Start Date Expiration Date Visits Requested Visits Authorized [id number] New Request Auto-Generat ed Referral 04/12/2024 05/12/2025 1 1 [facility] for referral (narrative)* Diagnostic Procedure Only (Routine) - New Request Specialty Diagnoses / Procedures [facility] To Contact [facility] IMAGING Diagnoses Autoimmune hepatitis (HCC) Procedures US ABD RIGHT UPPER QUADRANT US ABDOMINAL REAL TIME W/IMAGE LIMITED Stevan Thomas MD [address] [place] [address] Us Imaging [place] [address] Referral ID Status Reason Start Date Expiration Date Visits Requested Visits Authorized [id number] New Request Auto-Generat ed Referral 09/19/2024 05/26/2025 1 1 [facility] for referral (narrative)No reason for referral information [facility]WKing[facility] [place] [facility] Phone[facility] Transition of Care (Routine) - Authorized Specialty Diagnoses / Procedures [facility] Referred To Contact Jose Landry MD [address] [place] [address] Phone: tel: fax: Referral ID Status Reason Start Date Expiration Date Visits Requested Visits Authorized [id number] Authorized PCP Requested Referral 08/15/2025 11/13/2025 1 1 [facility] for visit Narrative* Diagnostic Procedure Only (Routine) - Closed Specialty Diagnoses / Procedures [facility] Referred To Contact US IMAGING Diagnoses Autoimmune hepatitis (HCC) Procedures US ABD LIVER VASCULAR US ABDOMINAL REAL TIME W/IMAGE LIMITED DUP-SCAN ARTL LOVELY ABDL/PEL/SCROT&/RPR ORGN COM Derrek Bear MD [address] [place] [address] Us Imaging Referral ID Status Reason Start Date Expiration Date V isits Requested Visits Authorized [id number] Closed Auto-Generate d Referral 06/24/2021 07/24/2022 1 1 [facility] for visit Narrative* Diagnostic Procedure Only (Routine) - Closed Specialty Diagnoses / Procedures Referred By Contac t Referred To Contact US IMAGING Diagnoses Autoimmune hepatitis (HCC) Procedures US ABD LIVER VASCULAR US ABDOMINAL REAL TIME W/IMAGE LIMITED DUP-SCAN ARTL LOVELY ABDL/PEL/SCROT&/RPR ORGN COM Derrek Bear MD [address] [place] [address] Us Imaging Referral ID Status Reason Start Date Expiration Date V isits Requested Visits Authorized [id number] Closed Auto-Generate d Referral 10/13/2021 11/12/2022 1 1 [facility] for visit Narrative* Diagnostic Procedure Only (Routine) - Closed Specialty Diagnoses / Procedures Referred By Contac t Referred To Contact US IMAGING Diagnoses Autoimmune hepatitis (HCC) Procedures US ABD LIVER VASCULAR US ABDOMINAL REAL TIME W/IMAGE LIMITED DUP-SCAN ARTL LOVELY ABDL/PEL/SCROT&/RPR ORGN COM Derrek Bear MD [address] [place] [address] Us Imaging Referral ID Status Reason Start Date Expiration Date V isits Requested Visits Authorized [id number] Closed Auto-Generate d Referral 04/13/2022 05/13/2023 1 1 [facility] for visit Narrative* Diagnostic Procedure Only (Routine) - Closed Specialty Diagnoses / Procedures Referred By Contac t Referred To Contact US IMAGING Diagnoses Autoimmune hepatitis (HCC) Procedures US ABD LIVER VASCULAR US ABDOMINAL REAL TIME W/IMAGE LIMITED DUP-SCAN ARTL LOVELY ABDL/PEL/SCROT&/RPR ORGN COM Derrek Bear MD [address] [place] [address] Us Imaging [place] [address] Referral ID Status Reason Start Date Expiration Date V isits Requested Visits Authorized [id number] Closed Auto-Generate d Referral 09/23/2022 10/23/2023 1 1 [facility] for visit Narrative* Outpatient Procedure (Routine) - Closed Specialty Diagnoses / Procedures Referred By Contac t Referred To Contact [facility] Diagnoses Dark stools Procedures EGD - THERAPEUTIC, EUS, OR TUBE INTERVENTIONS EGD BAND LIGATION ESOPHGEAL/GASTRIC VARICES Derrek Bear MD [address] [place] [address] [facility] [address] [place], [place] [id number] Referral ID Status Reason Start Date Expiration Date V isits Requested Visits Authorized [id number] Closed Auto-Generate d Referral 04/09/2023 04/09/2024 1 1 [facility] for visit Narrative* Diagnostic Procedure Only (Routine) - Closed Specialty Diagnoses / Procedures Referred By Aleshiaac t Referred To Contact US IMAGING Diagnoses Iron deficiency anemia due to chronic blood loss Procedures US ABD LIVER VASCULAR US ABDOMINAL REAL TIME W/IMAGE LIMITED DUP-SCAN ARTL LOVELY ABDL/PEL/SCROT&/RPR ORGN COM Derrek Bear MD [address] [place] [address] Us Imaging [facility] Referral ID Status Reason Start Date Expiration Date V isits Requested Visits Authorized [id number] Closed Auto-Generate d Referral 06/15/2023 07/14/2024 1 1 [facility] for visit Narrative* Diagnostic Procedure Only (Routine) - Closed Specialty Diagnoses / Procedures Referred By Contac t Referred To Contact XR IMAGING Diagnoses Foot pain, right Procedures XR FOOT GENERAL 3V AP/LAT/OBL RIGHT RADEX FOOT COMPLETE MINIMUM 3 VIEWS Davis May MD [address] [place] [address] Xr Imaging [facility] Referral ID Status Reason Start Date Expiration Date V isits Requested Visits Authorized [id number] Closed Auto-Generate d Referral 10/14/2022 11/13/2023 1 1 [facility] for visit Narrative* Outpatient Procedure (Routine) - Closed Specialty Diagnoses / Procedures Referred By Contac t Referred To [facility] Diagnoses Other hypertrophic cardiomyopathy (HCC) Procedures ECHO ECHO TTHRC R-T 2D W/WOM-MODE COMPL SPEC&COLR D Nova Shahid MD [address] [place] [address] Phone: tel: fax: [facility] [address] [place] [address] Referral ID Status Reason Start Date Expiration Date V isits Requested Visits Authorized [id number] Closed Auto-Generate d Referral 05/08/2024 05/08/2025 1 1 [facility] Summary Purpose Family History No Family History Records FoundNo Family History Records FoundNo Family History Records FoundNo Family History Records FoundNo Family History Records FoundNo Family History Records Found Advance Directives No Advanced Directives Records FoundDocuments on File Type Date Recorded Patient [employer] Messenger Expl anation Advance Directive(s) 05/30/2018 8:29 AM Date Activated Date Inactivated Comments 03/30/2024 12:41 PM 03/31/2024 4:08 PM Question Answer Comments Full Code Order Discussed With: Patient Documents on File Type Date Recorded Patient [employer] Messenger Expl anation Advance Directive(s) 04/15/2020 9:30 AM Advance Directive(s) 04/14/2020 2:38 AM Advance Directive(s) 03/11/2020 1:41 PM Advance Directive(s) 08/20/2019 5:55 PM Advance Directive(s) 05/30/2018 8:29 AM Advance Directive(s) 05/31/2017 10:30 AM Advance Directive(s) 05/25/2017 10:55 AM Documents on File Type Date Recorded Patient [employer] Expl anation Advance Directive(s) 04/15/2020 9:30 AM Advance Directive(s) 04/14/2020 2:38 AM Advance Directive(s) 03/11/2020 1:41 PM Advance Directive(s) 08/20/2019 5:55 PM Advance Directive(s) 05/30/2018 8:29 AM Advance Directive(s) 05/31/2017 10:30 AM Advance Directive(s) 05/25/2017 10:55 AM Documents on File Type Date Recorded Patient [employer] Expl anation Advance Directive(s) 05/30/2018 8:29 AM Advance Directive Response Recorded Date/ Time Living Will Yes March 26 8:23pm Power of Masking Machine Operator Yes March 26 8:23pm Name of Medical Power of Masking Machine Operator Josy Yi March 26, 2023 8:23pm Advance Directive Response Recorded Date/ Time Name of Medical Power of Masking Machine Operator Josy Yi March 26, 2023 11:49pm Living Will Yes March 26 11:49pm Power of Masking Machine Operator Yes March 26 11:49pm Date Activated Date Inactivated Comments 03/30/2024 12:41 PM 03/31/2024 4:08 PM Question Answer Comments Full Code Order Discussed With: Patient Advance Directive Response Recorded Date/ Time Do you have a Healthcare Power of Masking Machine Operator? Yes August 06, 2024 10:53pm Advance Directive Response Recorded Date/ Time Do you have a Healthcare Power of Masking Machine Operator? Yes January 05, 2025 10:07pm Advance Directive Response Recorded Date/ Time Do you have a Healthcare Power of Masking Machine Operator? Yes January 05, 2025 9:07pm Reason for Referral Specialty Diagnoses / Procedures Referred By Theresa troy Referred To Contact MR IMAGING Diagnoses Liver lesion Procedures MRI LIVER WO/W IVCON MRI ABDOMEN W/O & W/CONTRAST MATERIAL Derrek Bear MD [address] [place] [address] Mr Imaging Referral ID Status Reason Start Date Expiration Date Visits Requested Visits Authorized [id number] Pending Review Auto-Generat ed Referral 07/21/2021 08/20/2022 1 1 Specialty Diagnoses / Procedures Referred By Theresa t Referred To Contact CT IMAGING Diagnoses Liver lesion Procedures CT LIVER W IVCON CT ABDOMEN W/CONTRAST Derrek Bear MD [address] [place] [address] Ct Imaging Referral ID Status Reason Start Date Expiration Date V isits Requested Visits Authorized [id number] Closed Auto-Generate d Referral 07/23/2021 08/22/2022 1 1 Specialty Diagnoses / Procedures Referred By Theresa t Referred To Contact Cardiology Diagnoses S/P ICD (internal cardiac defibrillator) procedure Hypertrophic obstructive cardiomyopathy (HOCM) (HCC) Procedures CONSULT TO CARDIOLOGY OFFICE/OUTPATIENT [facility] 60-74 MINUTES Davis May MD [address] [place] [address] Referral ID Status Reason Start Date Expiration Date Visits Requested Visits Authorized [id number] Authorized PCP Requested Referral 10/16/2021 10/16/2022 1 1 Specialty Diagnoses / Procedures Referred By Contac t Referred To Contact Ent - Otolaryngology Diagnoses Throat clearing Oral bleeding Procedures CONSULT TO ENT OFFICE/OUTPATIENT [facility] 60-74 MINUTES Davis May MD [address] [place] [address] Referral ID Status Reason Start Date Expiration Date Visits Requested Visits Authorized [id number] Authorized PCP Requested Referral 04/20/2022 04/20/2023 1 1 Specialty Diagnoses / Procedures Referred By Contac t Referred To Contact Ent - Otolaryngology Diagnoses Throat clearing Vocal cord nodule Procedures CONSULT TO ENT OFFICE/OUTPATIENT [facility] MDM 60-74 MINUTES Prabhu Le PA-C [address] [place] [address] Referral ID Status Reason Start Date Expiration Date Visits Requested Visits Authorized [id number] Authorized PCP Requested Referral 05/25/2022 05/25/2023 1 1 Specialty Diagnoses / Procedures Referred By Contac t Referred To Contact CT IMAGING Diagnoses Liver lesion Procedures CT LIVER W IVCON CT ABDOMEN W/CONTRAST Derrek Bear MD [address] [place] [address] Ct Imaging [facility] Referral ID Status Reason Start Date Expiration Date Visits Requested Visits Authorized [id number] Authorized Auto-Generat ed Referral 03/18/2024 1 1 Specialty Diagnoses / Procedures Referred By Contac t Referred To Contact CT IMAGING Diagnoses Liver disease Procedures CT LIVER W IVCON CT ABDOMEN W/CONTRAST Derrek Bear MD [address] [place] [address] Ct Imaging [facility] Referral ID Status Reason Start Date Expiration Date Visits Requested Visits Authorized [id number] New Request Auto-Generat ed Referral 10/01/2023 10/30/2024 1 1 Specialty Diagnoses / Procedures Referred By Contac t Referred To Contact XR IMAGING Diagnoses Encounter for screening for osteoporosis Liver disease Autoimmune hepatitis (HCC) Localized osteoporosis ([place]) Procedures DXA-AXIAL SKELETON Derrek Bear MD [address] [place] [address] Xr Imaging [place] [address] Referral ID Status Reason Start Date Expiration Date Visits Requested Visits Authorized [id number] New Request Auto-Generat ed Referral 10/01/2023 10/30/2024 1 1 Specialty Diagnoses / Procedures Referred By Contac t Referred To Contact Evelin Reich, [employer].[facility] [address] [place] [address] Referral ID Status Reason Start Date Expiration Date Visits Re quested Visits Authorized [id number] Closed 1 1 Referral ID Status Reason Start Date Expiration Date V isits Requested Visits Authorized [id number] Closed Auto-Generate d Referral 10/01/2023 10/30/2024 1 1 Specialty Diagnoses / Procedures Referred By Contac t Referred To Contact Urology Diagnoses Microscopic hematuria Procedures CONSULT TO UROLOGY OFFICE/OUTPATIENT [facility] 60 MINUTES Davis May MD [address] [place] [address] Referral ID Status Reason Start Date Expiration Date Visits Requested Visits Authorized [id number] Authorized PCP Requested Referral 04/14/2024 04/14/2025 1 [...] PAIN/RX HERE August 29, 2024 2:00 pm Chief Complaint Admit Date acute pain l knee. rx here November 03, 2024 12:30pm COLD SX January 05, 2025 8 :16pm Additional Source Comments (unrecognized sect ion and content) No Status Records FoundNo Status Records FoundNo Status Records FoundNo Status Records FoundNo Status Records FoundNo Status Records Found INFORMATION SOURCE (unrecogn ized section and content) DATE CREATED AUTHOR 09/10/2017 [facility] DATE CREATED AUTHOR AUTHOR'S ORGANIZ ATION 09/10/2017 [facility] DATE CREATED AUTHOR AUTHOR'S ORGANIZ ATION 04/26/[address] [facility] nt DATE CREATED AUTHOR AUTHOR'S ORGANIZ ATION 01/13/[address] [facility] DATE CREATED AUTHOR AUTHOR'S ORGANIZ ATION 01/27/2025 [facility] DATE CREATED AUTHOR AUTHOR'S ORGANIZ ATION 01/31/2025 [facility] Source Comments (unrecognize d section and content) In the event this informatio n is protected by the Federal Confidentiality of Alcohol and Drug Abuse Patient Records regulations: The Federal rules restrict any use of the information to criminally investigate or prosecute any alcohol or drug abuse patient.[facility] the event this information is protected by the Federal Confidentiality of Alcohol and Drug Abuse Patient Records regulations: The Federal rules restrict any use of the information to criminally investigate or prosecute any alcohol or drug abuse patient.[facility] HospitalIn the event this information is protected by the Federal Confidentiality of Alcohol and Drug Abuse Patient Records regulations: The Federal rules restrict any use of the information to criminally investigate or prosecute any alcohol or drug abuse patient.[facility] HospitalIn the event this information is protected by the Federal Confidentiality of Alcohol and Drug Abuse Patient Records regulations: The Federal rules restrict any use of the information to criminally investigate or prosecute any alcohol or drug abuse patient.[facility] HospitalIn the event this information is protected by the Federal Confidentiality of Alcohol and Drug Abuse Patient Records regulations: The Federal rules restrict any use of the information to criminally investigate or prosecute any alcohol or drug abuse patient.[facility] HospitalIn the event this information is protected by the Federal Confidentiality of Alcohol and Drug Abuse Patient Records regulations: The Federal rules restrict any use of the information to criminally investigate or prosecute any alcohol or drug abuse patient.[facility] HospitalIn the event this information is protected by the Federal Confidentiality of Alcohol and Drug Abuse Patient Records regulations: The Federal rules restrict any use of the information to criminally investigate or prosecute any alcohol or drug abuse patient.[facility] HospitalIn the event this information is protected by the Federal Confidentiality of Alcohol and Drug Abuse Patient Records regulations: The Federal rules restrict any use of the information to criminally investigate or prosecute any alcohol or drug abuse patient.[facility] HospitalIn the event this information is protected by the Federal Confidentiality of Alcohol and Drug Abuse Patient Records regulations: The Federal rules restrict any use of the information to criminally investigate or prosecute any alcohol or drug abuse patient.[facility] HospitalIn the event this information is protected by the Federal Confidentiality of Alcohol and Drug Abuse Patient Records regulations: The Federal rules restrict any use of the information to criminally investigate or prosecute any alcohol or drug abuse patient.[facility] HospitalIn the event this information is protected by the Federal Confidentiality of Alcohol and Drug Abuse Patient Records regulations: The Federal rules restrict any use of the information to criminally investigate or prosecute any alcohol or drug abuse patient.[facility] HospitalIn the event this information is protected by the Federal Confidentiality of Alcohol and Drug Abuse Patient Records regulations: The Federal rules restrict any use of the information to criminally investigate or prosecute any alcohol or drug abuse patient.[facility] HospitalIn the event this information is protected by the Federal Confidentiality of Alcohol and Drug Abuse Patient Records regulations: The Federal rules restrict any use of the information to criminally investigate or prosecute any alcohol or drug abuse patient.[facility] HospitalIn the event this information is protected by the Federal Confidentiality of Alcohol and Drug Abuse Patient Records regulations: The Federal rules restrict any use of the information to criminally investigate or prosecute any alcohol or drug abuse patient.[facility] HospitalIn the event this information is protected by the Federal Confidentiality of Alcohol and Drug Abuse Patient Records regulations: The Federal rules restrict any use of the information to criminally investigate or prosecute any alcohol or drug abuse patient.[facility] HospitalIn the event this information is protected by the Federal Confidentiality of Alcohol and Drug Abuse Patient Records regulations: The Federal rules restrict any use of the information to criminally investigate or prosecute any alcohol or drug abuse patient.[facility] HospitalIn the event this information is protected by the Federal Confidentiality of Alcohol and Drug Abuse Patient Records regulations: The Federal rules restrict any use of the information to criminally investigate or prosecute any alcohol or drug abuse patient.[facility] HospitalIn the event this information is protected by the Federal Confidentiality of Alcohol and Drug Abuse Patient Records regulations: The Federal rules restrict any use of the information to criminally investigate or prosecute any alcohol or drug abuse patient.[facility] HospitalIn the event this information is protected by the Federal Confidentiality of Alcohol and Drug Abuse Patient Records regulations: The Federal rules restrict any use of the information to criminally investigate or prosecute any alcohol or drug abuse patient.[facility] HospitalIn the event this information is protected by the Federal Confidentiality of Alcohol and Drug Abuse Patient Records regulations: The Federal rules restrict any use of the information to criminally investigate or prosecute any alcohol or drug abuse patient.[facility] HospitalIn the event this information is protected by the Federal Confidentiality of Alcohol and Drug Abuse Patient Records regulations: The Federal rules restrict any use of the information to criminally investigate or prosecute any alcohol or drug abuse patient.[facility] HospitalIn the event this information is protected by the Federal Confidentiality of Alcohol and Drug Abuse Patient Records regulations: The Federal rules restrict any use of the information to criminally investigate or prosecute any alcohol or drug abuse patient.[facility] HospitalIn the event this information is protected by the Federal Confidentiality of Alcohol and Drug Abuse Patient Records regulations: The Federal rules restrict any use of the information to criminally investigate or prosecute any alcohol or drug abuse patient.[facility] HospitalIn the event this information is protected by the Federal Confidentiality of Alcohol and Drug Abuse Patient Records regulations: The Federal rules restrict any use of the information to criminally investigate or prosecute any alcohol or drug abuse patient.[facility] HospitalIn the event this information is protected by the Federal Confidentiality of Alcohol and Drug Abuse Patient Records regulations: The Federal rules restrict any use of the information to criminally investigate or prosecute any alcohol or drug abuse patient.[facility] HospitalIn the event this information is protected by the Federal Confidentiality of Alcohol and Drug Abuse Patient Records regulations: The Federal rules restrict any use of the information to criminally investigate or prosecute any alcohol or drug abuse patient.[facility] HospitalIn the event this information is protected by the Federal Confidentiality of Alcohol and Drug Abuse Patient Records regulations: The Federal rules restrict any use of the information to criminally investigate or prosecute any alcohol or drug abuse patient.[facility] HospitalIn the event this information is protected by the Federal Confidentiality of Alcohol and Drug Abuse Patient Records regulations: The Federal rules restrict any use of the information to criminally investigate or prosecute any alcohol or drug abuse patient.[facility] HospitalIn the event this information is protected by the Federal Confidentiality of Alcohol and Drug Abuse Patient Records regulations: The Federal rules restrict any use of the information to criminally investigate or prosecute any alcohol or drug abuse patient.[facility] HospitalIn the event this information is protected by the Federal Confidentiality of Alcohol and Drug Abuse Patient Records regulations: The Federal rules restrict any use of the information to criminally investigate or prosecute any alcohol or drug abuse patient.[facility] HospitalIn the event this information is protected by the Federal Confidentiality of Alcohol and Drug Abuse Patient Records regulations: The Federal rules restrict any use of the information to criminally investigate or prosecute any alcohol or drug abuse patient.[facility] HospitalIn the event this information is protected by the Federal Confidentiality of Alcohol and Drug Abuse Patient Records regulations: The Federal rules restrict any use of the information to criminally investigate or prosecute any alcohol or drug abuse patient.[facility] HospitalIn the event this information is protected by the Federal Confidentiality of Alcohol and Drug Abuse Patient Records regulations: The Federal rules restrict any use of the information to criminally investigate or prosecute any alcohol or drug abuse patient.[facility] HospitalIn the event this information is protected by the Federal Confidentiality of Alcohol and Drug Abuse Patient Records regulations: The Federal rules restrict any use of the information to criminally investigate or prosecute any alcohol or drug abuse patient.[facility] HospitalIn the event this information is protected by the Federal Confidentiality of Alcohol and Drug Abuse Patient Records regulations: The Federal rules restrict any use of the information to criminally investigate or prosecute any alcohol or drug abuse patient.[facility] HospitalIn the event this information is protected by the Federal Confidentiality of Alcohol and Drug Abuse Patient Records regulations: The Federal rules restrict any use of the information to criminally investigate or prosecute any alcohol or drug abuse patient.[facility] HospitalIn the event this information is protected by the Federal Confidentiality of Alcohol and Drug Abuse Patient Records regulations: The Federal rules restrict any use of the information to criminally investigate or prosecute any alcohol or drug abuse patient.[facility] the event this information is protected by the Federal Confidentiality of Alcohol and Drug Abuse Patient Records regulations: The Federal rules restrict any use of the information to criminally investigate or prosecute any alcohol or drug abuse patient.[facility]In the event this information is protected by the Federal Confidentiality of Alcohol and Drug Abuse Patient Records regulations: The Federal rules restrict any use of the information to criminally investigate or prosecute any alcohol or drug abuse patient.[facility]In the event this information is protected by the Federal Confidentiality of Alcohol and Drug Abuse Patient Records regulations: The Federal rules restrict any use of the information to criminally investigate or prosecute any alcohol or drug abuse patient.[facility] HospitalIn the event this information is protected by the Federal Confidentiality of Alcohol and Drug Abuse Patient Records regulations: The Federal rules restrict any use of the information to criminally investigate or prosecute any alcohol or drug abuse patient.[facility] HospitalIn the event this information is protected by the Federal Confidentiality of Alcohol and Drug Abuse Patient Records regulations: The Federal rules restrict any use of the information to criminally investigate or prosecute any alcohol or drug abuse patient.[facility]In the event this information is protected by the Federal Confidentiality of Alcohol and Drug Abuse Patient Records regulations: The Federal rules restrict any use of the information to criminally investigate or prosecute any alcohol or drug abuse patient.[facility]In the event this information is protected by the Federal Confidentiality of Alcohol and Drug Abuse Patient Records regulations: The Federal rules restrict any use of the information to criminally investigate or prosecute any alcohol or drug abuse patient.[facility]In the event this information is protected by the Federal Confidentiality of Alcohol and Drug Abuse Patient Records regulations: The Federal rules restrict any use of the information to criminally investigate or prosecute any alcohol or drug abuse patient.[facility] HospitalIn the event this information is protected by the Federal Confidentiality of Alcohol and Drug Abuse Patient Records regulations: The Federal rules restrict any use of the information to criminally investigate or prosecute any alcohol or drug abuse patient.[facility] HospitalIn the event this information is protected by the Federal Confidentiality of Alcohol and Drug Abuse Patient Records regulations: The Federal rules restrict any use of the information to criminally investigate or prosecute any alcohol or drug abuse patient.[facility]In the event this information is protected by the Federal Confidentiality of Alcohol and Drug Abuse Patient Records regulations: The Federal rules restrict any use of the information to criminally investigate or prosecute any alcohol or drug abuse patient.[facility]In the event this information is protected by the Federal Confidentiality of Alcohol and Drug Abuse Patient Records regulations: The Federal rules restrict any use of the information to criminally investigate or prosecute any alcohol or drug abuse patient.[facility] HospitalIn the event this information is protected by the Federal Confidentiality of Alcohol and Drug Abuse Patient Records regulations: The Federal rules restrict any use of the information to criminally investigate or prosecute any alcohol or drug abuse patient.[facility] HospitalIn the event this information is protected by the Federal Confidentiality of Alcohol and Drug Abuse Patient Records regulations: The Federal rules restrict any use of the information to criminally investigate or prosecute any alcohol or drug abuse patient.[facility] HospitalIn the event this information is protected by the Federal Confidentiality of Alcohol and Drug Abuse Patient Records regulations: The Federal rules restrict any use of the information to criminally investigate or prosecute any alcohol or drug abuse patient.[facility] HospitalIn the event this information is protected by the Federal Confidentiality of Alcohol and Drug Abuse Patient Records regulations: The Federal rules restrict any use of the information to criminally investigate or prosecute any alcohol or drug abuse patient.[facility] HospitalIn the event this information is protected by the Federal Confidentiality of Alcohol and Drug Abuse Patient Records regulations: The Federal rules restrict any use of the information to criminally investigate or prosecute any alcohol or drug abuse patient.[facility] HospitalIn the event this information is protected by the Federal Confidentiality of Alcohol and Drug Abuse Patient Records regulations: The Federal rules restrict any use of the information to criminally investigate or prosecute any alcohol or drug abuse patient.[facility] HospitalIn the event this information is protected by the Federal Confidentiality of Alcohol and Drug Abuse Patient Records regulations: The Federal rules restrict any use of the information to criminally investigate or prosecute any alcohol or drug abuse patient.[facility] HospitalIn the event this information is protected by the Federal Confidentiality of Alcohol and Drug Abuse Patient Records regulations: The Federal rules restrict any use of the information to criminally investigate or prosecute any alcohol or drug abuse patient.[facility] HospitalIn the event this information is protected by the Federal Confidentiality of Alcohol and Drug Abuse Patient Records regulations: The Federal rules restrict any use of the information to criminally investigate or prosecute any alcohol or drug abuse patient.[facility] HospitalIn the event this information is protected by the Federal Confidentiality of Alcohol and Drug Abuse Patient Records regulations: The Federal rules restrict any use of the information to criminally investigate or prosecute any alcohol or drug abuse patient.[facility]In the event this information is protected by the Federal Confidentiality of Alcohol and Drug Abuse Patient Records regulations: The Federal rules restrict any use of the information to criminally investigate or prosecute any alcohol or drug abuse patient.[facility]In the event this information is protected by the Federal Confidentiality of Alcohol and Drug Abuse Patient Records regulations: The Federal rules restrict any use of the information to criminally investigate or prosecute any alcohol or drug abuse patient.[facility] HospitalIn the event this information is protected by the Federal Confidentiality of Alcohol and Drug Abuse Patient Records regulations: The Federal rules restrict any use of the information to criminally investigate or prosecute any alcohol or drug abuse patient.[facility] HospitalIn the event this information is protected by the Federal Confidentiality of Alcohol and Drug Abuse Patient Records regulations: The Federal rules restrict any use of the information to criminally investigate or prosecute any alcohol or drug abuse patient.[facility] HospitalIn the event this information is protected by the Federal Confidentiality of Alcohol and Drug Abuse Patient Records regulations: The Federal rules restrict any use of the information to criminally investigate or prosecute any alcohol or drug abuse patient.[facility] HospitalIn the event this information is protected by the Federal Confidentiality of Alcohol and Drug Abuse Patient Records regulations: The Federal rules restrict any use of the information to criminally investigate or prosecute any alcohol or drug abuse patient.[facility] HospitalIn the event this information is protected by the Federal Confidentiality of Alcohol and Drug Abuse Patient Records regulations: The Federal rules restrict any use of the information to criminally investigate or prosecute any alcohol or drug abuse patient.[facility] HospitalIn the event this information is protected by the Federal Confidentiality of Alcohol and Drug Abuse Patient Records regulations: The Federal rules restrict any use of the information to criminally investigate or prosecute any alcohol or drug abuse patient.[facility] HospitalIn the event this information is protected by the Federal Confidentiality of Alcohol and Drug Abuse Patient Records regulations: The Federal rules restrict any use of the information to criminally investigate or prosecute any alcohol or drug abuse patient.[facility] HospitalIn the event this information is protected by the Federal Confidentiality of Alcohol and Drug Abuse Patient Records regulations: The Federal rules restrict any use of the information to criminally investigate or prosecute any alcohol or drug abuse patient.[facility] HospitalIn the event this information is protected by the Federal Confidentiality of Alcohol and Drug Abuse Patient Records regulations: The Federal rules restrict any use of the information to criminally investigate or prosecute any alcohol or drug abuse patient.[facility] HospitalIn the event this information is protected by the Federal Confidentiality of Alcohol and Drug Abuse Patient Records regulations: The Federal rules restrict any use of the information to criminally investigate or prosecute any alcohol or drug abuse patient.[facility]In the event this information is protected by the Federal Confidentiality of Alcohol and Drug Abuse Patient Records regulations: The Federal rules restrict any use of the information to criminally investigate or prosecute any alcohol or drug abuse patient.[facility] HospitalIn the event this information is protected by the Federal Confidentiality of Alcohol and Drug Abuse Patient Records regulations: The Federal rules restrict any use of the information to criminally investigate or prosecute any alcohol or drug abuse patient.[facility] HospitalIn the event this information is protected by the Federal Confidentiality of Alcohol and Drug Abuse Patient Records regulations: The Federal rules restrict any use of the information to criminally investigate or prosecute any alcohol or drug abuse patient.[facility] HospitalIn the event this information is protected by the Federal Confidentiality of Alcohol and Drug Abuse Patient Records regulations: The Federal rules restrict any use of the information to criminally investigate or prosecute any alcohol or drug abuse patient.[facility]In the event this information is protected by the Federal Confidentiality of Alcohol and Drug Abuse Patient Records regulations: The Federal rules restrict any use of the information to criminally investigate or prosecute any alcohol or drug abuse patient.[facility] HospitalIn the event this information is protected by the Federal Confidentiality of Alcohol and Drug Abuse Patient Records regulations: The Federal rules restrict any use of the information to criminally investigate or prosecute any alcohol or drug abuse patient.[facility] HospitalIn the event this information is protected by the Federal Confidentiality of Alcohol and Drug Abuse Patient Records regulations: The Federal rules restrict any use of the information to criminally investigate or prosecute any alcohol or drug abuse patient.[facility] HospitalIn the event this information is protected by the Federal Confidentiality of Alcohol and Drug Abuse Patient Records regulations: The Federal rules restrict any use of the information to criminally investigate or prosecute any alcohol or drug abuse patient.[facility] HospitalIn the event this information is protected by the Federal Confidentiality of Alcohol and Drug Abuse Patient Records regulations: The Federal rules restrict any use of the information to criminally investigate or prosecute any alcohol or drug abuse patient.[facility] HospitalIn the event this information is protected by the Federal Confidentiality of Alcohol and Drug Abuse Patient Records regulations: The Federal rules restrict any use of the information to criminally investigate or prosecute any alcohol or drug abuse patient.[facility] HospitalIn the event this information is protected by the Federal Confidentiality of Alcohol and Drug Abuse Patient Records regulations: The Federal rules restrict any use of the information to criminally investigate or prosecute any alcohol or drug abuse patient.[facility] HospitalIn the event this information is protected by the Federal Confidentiality of Alcohol and Drug Abuse Patient Records regulations: The Federal rules restrict any use of the information to criminally investigate or prosecute any alcohol or drug abuse patient.[facility] HospitalIn the event this information is protected by the Federal Confidentiality of Alcohol and Drug Abuse Patient Records regulations: The Federal rules restrict any use of the information to criminally investigate or prosecute any alcohol or drug abuse patient.[facility] HospitalIn the event this information is protected by the Federal Confidentiality of Alcohol and Drug Abuse Patient Records regulations: The Federal rules restrict any use of the information to criminally investigate or prosecute any alcohol or drug abuse patient.[facility] HospitalIn the event this information is protected by the Federal Confidentiality of Alcohol and Drug Abuse Patient Records regulations: The Federal rules restrict any use of the information to criminally investigate or prosecute any alcohol or drug abuse patient.[facility] HospitalIn the event this information is protected by the Federal Confidentiality of Alcohol and Drug Abuse Patient Records regulations: The Federal rules restrict any use of the information to criminally investigate or prosecute any alcohol or drug abuse patient.[facility] HospitalIn the event this information is protected by the Federal Confidentiality of Alcohol and Drug Abuse Patient Records regulations: The Federal rules restrict any use of the information to criminally investigate or prosecute any alcohol or drug abuse patient.[facility] HospitalIn the event this information is protected by the Federal Confidentiality of Alcohol and Drug Abuse Patient Records regulations: The Federal rules restrict any use of the information to criminally investigate or prosecute any alcohol or drug abuse patient.[facility] HospitalIn the event this information is protected by the Federal Confidentiality of Alcohol and Drug Abuse Patient Records regulations: The Federal rules restrict any use of the information to criminally investigate or prosecute any alcohol or drug abuse patient.[facility] HospitalIn the event this information is protected by the Federal Confidentiality of Alcohol and Drug Abuse Patient Records regulations: The Federal rules restrict any use of the information to criminally investigate or prosecute any alcohol or drug abuse patient.[facility] HospitalIn the event this information is protected by the Federal Confidentiality of Alcohol and Drug Abuse Patient Records regulations: The Federal rules restrict any use of the information to criminally investigate or prosecute any alcohol or drug abuse patient.[facility] HospitalIn the event this information is protected by the Federal Confidentiality of Alcohol and Drug Abuse Patient Records regulations: The Federal rules restrict any use of the information to criminally investigate or prosecute any alcohol or drug abuse patient.[facility] HospitalIn the event this information is protected by the Federal Confidentiality of Alcohol and Drug Abuse Patient Records regulations: The Federal rules restrict any use of the information to criminally investigate or prosecute any alcohol or drug abuse patient.[facility] HospitalIn the event this information is protected by the Federal Confidentiality of Alcohol and Drug Abuse Patient Records regulations: The Federal rules restrict any use of the information to criminally investigate or prosecute any alcohol or drug abuse patient.[facility]In the event this information is protected by the Federal Confidentiality of Alcohol and Drug Abuse Patient Records regulations: The Federal rules restrict any use of the information to criminally investigate or prosecute any alcohol or drug abuse patient.[facility] HospitalIn the event this information is protected by the Federal Confidentiality of Alcohol and Drug Abuse Patient Records regulations: The Federal rules restrict any use of the information to criminally investigate or prosecute any alcohol or drug abuse patient.[facility] HospitalIn the event this information is protected by the Federal Confidentiality of Alcohol and Drug Abuse Patient Records regulations: The Federal rules restrict any use of the information to criminally investigate or prosecute any alcohol or drug abuse patient.[facility] HospitalIn the event this information is protected by the Federal Confidentiality of Alcohol and Drug Abuse Patient Records regulations: The Federal rules restrict any use of the information to criminally investigate or prosecute any alcohol or drug abuse patient.[facility] HospitalIn the event this information is protected by the Federal Confidentiality of Alcohol and Drug Abuse Patient Records regulations: The Federal rules restrict any use of the information to criminally investigate or prosecute any alcohol or drug abuse patient.[facility] HospitalIn the event this information is protected by the Federal Confidentiality of Alcohol and Drug Abuse Patient Records regulations: The Federal rules restrict any use of the information to criminally investigate or prosecute any alcohol or drug abuse patient.[facility] HospitalIn the event this information is protected by the Federal Confidentiality of Alcohol and Drug Abuse Patient Records regulations: The Federal rules restrict any use of the information to criminally investigate or prosecute any alcohol or drug abuse patient.[facility] HospitalIn the event this information is protected by the Federal Confidentiality of Alcohol and Drug Abuse Patient Records regulations: The Federal rules restrict any use of the information to criminally investigate or prosecute any alcohol or drug abuse patient.[facility]In the event this information is protected by the Federal Confidentiality of Alcohol and Drug Abuse Patient Records regulations: The Federal rules restrict any use of the information to criminally investigate or prosecute any alcohol or drug abuse patient.[facility] HospitalIn the event this information is protected by the Federal Confidentiality of Alcohol and Drug Abuse Patient Records regulations: The Federal rules restrict any use of the information to criminally investigate or prosecute any alcohol or drug abuse patient.[facility] HospitalIn the event this information is protected by the Federal Confidentiality of Alcohol and Drug Abuse Patient Records regulations: The Federal rules restrict any use of the information to criminally investigate or prosecute any alcohol or drug abuse patient.[facility] HospitalIn the event this information is protected by the Federal Confidentiality of Alcohol and Drug Abuse Patient Records regulations: The Federal rules restrict any use of the information to criminally investigate or prosecute any alcohol or drug abuse patient.[facility] HospitalIn the event this information is protected by the Federal Confidentiality of Alcohol and Drug Abuse Patient Records regulations: The Federal rules restrict any use of the information to criminally investigate or prosecute any alcohol or drug abuse patient.[facility]In the event this information is protected by the Federal Confidentiality of Alcohol and Drug Abuse Patient Records regulations: The Federal rules restrict any use of the information to criminally investigate or prosecute any alcohol or drug abuse patient.[facility]In the event this information is protected by the Federal Confidentiality of Alcohol and Drug Abuse Patient Records regulations: The Federal rules restrict any use of the information to criminally investigate or prosecute any alcohol or drug abuse patient.[facility]In the event this information is protected by the Federal Confidentiality of Alcohol and Drug Abuse Patient Records regulations: The Federal rules restrict any use of the information to criminally investigate or prosecute any alcohol or drug abuse patient.[facility]In the event this information is protected by the Federal Confidentiality of Alcohol and Drug Abuse Patient Records regulations: The Federal rules restrict any use of the information to criminally investigate or prosecute any alcohol or drug abuse patient.[facility]In the event this information is protected by the Federal Confidentiality of Alcohol and Drug Abuse Patient Records regulations: The Federal rules restrict any use of the information to criminally investigate or prosecute any alcohol or drug abuse patient.[facility]In the event this information is protected by the Federal Confidentiality of Alcohol and Drug Abuse Patient Records regulations: The Federal rules restrict any use of the information to criminally investigate or prosecute any alcohol or drug abuse patient.[facility]In the event this information is protected by the Federal Confidentiality of Alcohol and Drug Abuse Patient Records regulations: The Federal rules restrict any use of the information to criminally investigate or prosecute any alcohol or drug abuse patient.[facility]In the event this information is protected by the Federal Confidentiality of Alcohol and Drug Abuse Patient Records regulations: The Federal rules restrict any use of the information to criminally investigate or prosecute any alcohol or drug abuse patient.[facility]In the event this information is protected by the Federal Confidentiality of Alcohol and Drug Abuse Patient Records regulations: The Federal rules restrict any use of the information to criminally investigate or prosecute any alcohol or drug abuse patient.[facility]In the event this information is protected by the Federal Confidentiality of Alcohol and Drug Abuse Patient Records regulations: The Federal rules restrict any use of the information to criminally investigate or prosecute any alcohol or drug abuse patient.[facility]In the event this information is protected by the Federal Confidentiality of Alcohol and Drug Abuse Patient Records regulations: The Federal rules restrict any use of the information to criminally investigate or prosecute any alcohol or drug abuse patient.[facility]In the event this information is protected by the Federal Confidentiality of Alcohol and Drug Abuse Patient Records regulations: The Federal rules restrict any use of the information to criminally investigate or prosecute any alcohol or drug abuse patient.[facility]In the event this information is protected by the Federal Confidentiality of Alcohol and Drug Abuse Patient Records regulations: The Federal rules restrict any use of the information to criminally investigate or prosecute any alcohol or drug abuse patient.[facility]In the event this information is protected by the Federal Confidentiality of Alcohol and Drug Abuse Patient Records regulations: The Federal rules restrict any use of the information to criminally investigate or prosecute any alcohol or drug abuse patient.[facility] HospitalIn the event this information is protected by the Federal Confidentiality of Alcohol and Drug Abuse Patient Records regulations: The Federal rules restrict any use of the information to criminally investigate or prosecute any alcohol or drug abuse patient.[facility]In the event this information is protected by the Federal Confidentiality of Alcohol and Drug Abuse Patient Records regulations: The Federal rules restrict any use of the information to criminally investigate or prosecute any alcohol or drug abuse patient.[facility] HospitalIn the event this information is protected by the Federal Confidentiality of Alcohol and Drug Abuse Patient Records regulations: The Federal rules restrict any use of the information to criminally investigate or prosecute any alcohol or drug abuse patient.[facility] HospitalIn the event this information is protected by the Federal Confidentiality of Alcohol and Drug Abuse Patient Records regulations: The Federal rules restrict any use of the information to criminally investigate or prosecute any alcohol or drug abuse patient.[facility] HospitalIn the event this information is protected by the Federal Confidentiality of Alcohol and Drug Abuse Patient Records regulations: The Federal rules restrict any use of the information to criminally investigate or prosecute any alcohol or drug abuse patient.[facility] HospitalIn the event this information is protected by the Federal Confidentiality of Alcohol and Drug Abuse Patient Records regulations: The Federal rules restrict any use of the information to criminally investigate or prosecute any alcohol or drug abuse patient.[facility] HospitalIn the event this information is protected by the Federal Confidentiality of Alcohol and Drug Abuse Patient Records regulations: The Federal rules restrict any use of the information to criminally investigate or prosecute any alcohol or drug abuse patient.[facility] HospitalIn the event this information is protected by the Federal Confidentiality of Alcohol and Drug Abuse Patient Records regulations: The Federal rules restrict any use of the information to criminally investigate or prosecute any alcohol or drug abuse patient.[facility] HospitalIn the event this information is protected by the Federal Confidentiality of Alcohol and Drug Abuse Patient Records regulations: The Federal rules restrict any use of the information to criminally investigate or prosecute any alcohol or drug abuse patient.[facility] HospitalIn the event this information is protected by the Federal Confidentiality of Alcohol and Drug Abuse Patient Records regulations: The Federal rules restrict any use of the information to criminally investigate or prosecute any alcohol or drug abuse patient.[facility] HospitalIn the event this information is protected by the Federal Confidentiality of Alcohol and Drug Abuse Patient Records regulations: The Federal rules restrict any use of the information to criminally investigate or prosecute any alcohol or drug abuse patient.[facility] HospitalIn the event this information is protected by the Federal Confidentiality of Alcohol and Drug Abuse Patient Records regulations: The Federal rules restrict any use of the information to criminally investigate or prosecute any alcohol or drug abuse patient.[facility] HospitalIn the event this information is protected by the Federal Confidentiality of Alcohol and Drug Abuse Patient Records regulations: The Federal rules restrict any use of the information to criminally investigate or prosecute any alcohol or drug abuse patient.[facility] HospitalIn the event this information is protected by the Federal Confidentiality of Alcohol and Drug Abuse Patient Records regulations: The Federal rules restrict any use of the information to criminally investigate or prosecute any alcohol or drug abuse patient.[facility] HospitalIn the event this information is protected by the Federal Confidentiality of Alcohol and Drug Abuse Patient Records regulations: The Federal rules restrict any use of the information to criminally investigate or prosecute any alcohol or drug abuse patient.[facility] HospitalIn the event this information is protected by the Federal Confidentiality of Alcohol and Drug Abuse Patient Records regulations: The Federal rules restrict any use of the information to criminally investigate or prosecute any alcohol or drug abuse patient.[facility] HospitalIn the event this information is protected by the Federal Confidentiality of Alcohol and Drug Abuse Patient Records regulations: The Federal rules restrict any use of the information to criminally investigate or prosecute any alcohol or drug abuse patient.[facility] HospitalIn the event this information is protected by the Federal Confidentiality of Alcohol and Drug Abuse Patient Records regulations: The Federal rules restrict any use of the information to criminally investigate or prosecute any alcohol or drug abuse patient.[facility] HospitalIn the event this information is protected by the Federal Confidentiality of Alcohol and Drug Abuse Patient Records regulations: The Federal rules restrict any use of the information to criminally investigate or prosecute any alcohol or drug abuse patient.[facility] HospitalIn the event this information is protected by the Federal Confidentiality of Alcohol and Drug Abuse Patient Records regulations: The Federal rules restrict any use of the information to criminally investigate or prosecute any alcohol or drug abuse patient.[facility] HospitalIn the event this information is protected by the Federal Confidentiality of Alcohol and Drug Abuse Patient Records regulations: The Federal rules restrict any use of the information to criminally investigate or prosecute any alcohol or drug abuse patient.[facility] HospitalIn the event this information is protected by the Federal Confidentiality of Alcohol and Drug Abuse Patient Records regulations: The Federal rules restrict any use of the information to criminally investigate or prosecute any alcohol or drug abuse patient.[facility] HospitalIn the event this information is protected by the Federal Confidentiality of Alcohol and Drug Abuse Patient Records regulations: The Federal rules restrict any use of the information to criminally investigate or prosecute any alcohol or drug abuse patient.[facility] HospitalIn the event this information is protected by the Federal Confidentiality of Alcohol and Drug Abuse Patient Records regulations: The Federal rules restrict any use of the information to criminally investigate or prosecute any alcohol or drug abuse patient.[facility] HospitalIn the event this information is protected by the Federal Confidentiality of Alcohol and Drug Abuse Patient Records regulations: The Federal rules restrict any use of the information to criminally investigate or prosecute any alcohol or drug abuse patient.[facility] HospitalIn the event this information is protected by the Federal Confidentiality of Alcohol and Drug Abuse Patient Records regulations: The Federal rules restrict any use of the information to criminally investigate or prosecute any alcohol or drug abuse patient.[facility] HospitalIn the event this information is protected by the Federal Confidentiality of Alcohol and Drug Abuse Patient Records regulations: The Federal rules restrict any use of the information to criminally investigate or prosecute any alcohol or drug abuse patient.[facility] HospitalIn the event this information is protected by the Federal Confidentiality of Alcohol and Drug Abuse Patient Records regulations: The Federal rules restrict any use of the information to criminally investigate or prosecute any alcohol or drug abuse patient.[facility] HospitalIn the event this information is protected by the Federal Confidentiality of Alcohol and Drug Abuse Patient Records regulations: The Federal rules restrict any use of the information to criminally investigate or prosecute any alcohol or drug abuse patient.[facility] HospitalIn the event this information is protected by the Federal Confidentiality of Alcohol and Drug Abuse Patient Records regulations: The Federal rules restrict any use of the information to criminally investigate or prosecute any alcohol or drug abuse patient.[facility] HospitalIn the event this information is protected by the Federal Confidentiality of Alcohol and Drug Abuse Patient Records regulations: The Federal rules restrict any use of the information to criminally investigate or prosecute any alcohol or drug abuse patient.[facility] HospitalIn the event this information is protected by the Federal Confidentiality of Alcohol and Drug Abuse Patient Records regulations: The Federal rules restrict any use of the information to criminally investigate or prosecute any alcohol or drug abuse patient.[facility] HospitalIn the event this information is protected by the Federal Confidentiality of Alcohol and Drug Abuse Patient Records regulations: The Federal rules restrict any use of the information to criminally investigate or prosecute any alcohol or drug abuse patient.[facility] HospitalIn the event this information is protected by the Federal Confidentiality of Alcohol and Drug Abuse Patient Records regulations: The Federal rules restrict any use of the information to criminally investigate or prosecute any alcohol or drug abuse patient.[facility] HospitalIn the event this information is protected by the Federal Confidentiality of Alcohol and Drug Abuse Patient Records regulations: The Federal rules restrict any use of the information to criminally investigate or prosecute any alcohol or drug abuse patient.[facility] HospitalIn the event this information is protected by the Federal Confidentiality of Alcohol and Drug Abuse Patient Records regulations: The Federal rules restrict any use of the information to criminally investigate or prosecute any alcohol or drug abuse patient.[facility] HospitalIn the event this information is protected by the Federal Confidentiality of Alcohol and Drug Abuse Patient Records regulations: The Federal rules restrict any use of the information to criminally investigate or prosecute any alcohol or drug abuse patient.[facility] HospitalIn the event this information is protected by the Federal Confidentiality of Alcohol and Drug Abuse Patient Records regulations: The Federal rules restrict any use of the information to criminally investigate or prosecute any alcohol or drug abuse patient.[facility] HospitalIn the event this information is protected by the Federal Confidentiality of Alcohol and Drug Abuse Patient Records regulations: The Federal rules restrict any use of the information to criminally investigate or prosecute any alcohol or drug abuse patient.[facility] HospitalIn the event this information is protected by the Federal Confidentiality of Alcohol and Drug Abuse Patient Records regulations: The Federal rules restrict any use of the information to criminally investigate or prosecute any alcohol or drug abuse patient.[facility] HospitalIn the event this information is protected by the Federal Confidentiality of Alcohol and Drug Abuse Patient Records regulations: The Federal rules restrict any use of the information to criminally investigate or prosecute any alcohol or drug abuse patient.[facility] HospitalIn the event this information is protected by the Federal Confidentiality of Alcohol and Drug Abuse Patient Records regulations: The Federal rules restrict any use of the information to criminally investigate or prosecute any alcohol or drug abuse patient.[facility] HospitalIn the event this information is protected by the Federal Confidentiality of Alcohol and Drug Abuse Patient Records regulations: The Federal rules restrict any use of the information to criminally investigate or prosecute any alcohol or drug abuse patient.[facility] HospitalIn the event this information is protected by the Federal Confidentiality of Alcohol and Drug Abuse Patient Records regulations: The Federal rules restrict any use of the information to criminally investigate or prosecute any alcohol or drug abuse patient.[facility] HospitalIn the event this information is protected by the Federal Confidentiality of Alcohol and Drug Abuse Patient Records regulations: The Federal rules restrict any use of the information to criminally investigate or prosecute any alcohol or drug abuse patient.[facility] HospitalIn the event this information is protected by the Federal Confidentiality of Alcohol and Drug Abuse Patient Records regulations: The Federal rules restrict any use of the information to criminally investigate or prosecute any alcohol or drug abuse patient.[facility] HospitalIn the event this information is protected by the Federal Confidentiality of Alcohol and Drug Abuse Patient Records regulations: The Federal rules restrict any use of the information to criminally investigate or prosecute any alcohol or drug abuse patient.[facility] HospitalIn the event this information is protected by the Federal Confidentiality of Alcohol and Drug Abuse Patient Records regulations: The Federal rules restrict any use of the information to criminally investigate or prosecute any alcohol or drug abuse patient.[facility] HospitalIn the event this information is protected by the Federal Confidentiality of Alcohol and Drug Abuse Patient Records regulations: The Federal rules restrict any use of the information to criminally investigate or prosecute any alcohol or drug abuse patient.[facility] HospitalIn the event this information is protected by the Federal Confidentiality of Alcohol and Drug Abuse Patient Records regulations: The Federal rules restrict any use of the information to criminally investigate or prosecute any alcohol or drug abuse patient.[facility] HospitalIn the event this information is protected by the Federal Confidentiality of Alcohol and Drug Abuse Patient Records regulations: The Federal rules restrict any use of the information to criminally investigate or prosecute any alcohol or drug abuse patient.[facility] HospitalIn the event this information is protected by the Federal Confidentiality of Alcohol and Drug Abuse Patient Records regulations: The Federal rules restrict any use of the information to criminally investigate or prosecute any alcohol or drug abuse patient.[facility] HospitalIn the event this information is protected by the Federal Confidentiality of Alcohol and Drug Abuse Patient Records regulations: The Federal rules restrict any use of the information to criminally investigate or prosecute any alcohol or drug abuse patient.[facility] HospitalIn the event this information is protected by the Federal Confidentiality of Alcohol and Drug Abuse Patient Records regulations: The Federal rules restrict any use of the information to criminally investigate or prosecute any alcohol or drug abuse patient.[facility] HospitalIn the event this information is protected by the Federal Confidentiality of Alcohol and Drug Abuse Patient Records regulations: The Federal rules restrict any use of the information to criminally investigate or prosecute any alcohol or drug abuse patient.[facility] HospitalIn the event this information is protected by the Federal Confidentiality of Alcohol and Drug Abuse Patient Records regulations: The Federal rules restrict any use of the information to criminally investigate or prosecute any alcohol or drug abuse patient.[facility] HospitalIn the event this information is protected by the Federal Confidentiality of Alcohol and Drug Abuse Patient Records regulations: The Federal rules restrict any use of the information to criminally investigate or prosecute any alcohol or drug abuse patient.[facility] HospitalIn the event this information is protected by the Federal Confidentiality of Alcohol and Drug Abuse Patient Records regulations: The Federal rules restrict any use of the information to criminally investigate or prosecute any alcohol or drug abuse patient.[facility] HospitalIn the event this information is protected by the Federal Confidentiality of Alcohol and Drug Abuse Patient Records regulations: The Federal rules restrict any use of the information to criminally investigate or prosecute any alcohol or drug abuse patient.[facility] HospitalIn the event this information is protected by the Federal Confidentiality of Alcohol and Drug Abuse Patient Records regulations: The Federal rules restrict any use of the information to criminally investigate or prosecute any alcohol or drug abuse patient.[facility] HospitalIn the event this information is protected by the Federal Confidentiality of Alcohol and Drug Abuse Patient Records regulations: The Federal rules restrict any use of the information to criminally investigate or prosecute any alcohol or drug abuse patient.[facility] HospitalIn the event this information is protected by the Federal Confidentiality of Alcohol and Drug Abuse Patient Records regulations: The Federal rules restrict any use of the information to criminally investigate or prosecute any alcohol or drug abuse patient.[facility] HospitalIn the event this information is protected by the Federal Confidentiality of Alcohol and Drug Abuse Patient Records regulations: The Federal rules restrict any use of the information to criminally investigate or prosecute any alcohol or drug abuse patient.[facility] HospitalIn the event this information is protected by the Federal Confidentiality of Alcohol and Drug Abuse Patient Records regulations: The Federal rules restrict any use of the information to criminally investigate or prosecute any alcohol or drug abuse patient.[facility] HospitalIn the event this information is protected by the Federal Confidentiality of Alcohol and Drug Abuse Patient Records regulations: The Federal rules restrict any use of the information to criminally investigate or prosecute any alcohol or drug abuse patient.[facility] HospitalIn the event this information is protected by the Federal Confidentiality of Alcohol and Drug Abuse Patient Records regulations: The Federal rules restrict any use of the information to criminally investigate or prosecute any alcohol or drug abuse patient.[facility] HospitalIn the event this information is protected by the Federal Confidentiality of Alcohol and Drug Abuse Patient Records regulations: The Federal rules restrict any use of the information to criminally investigate or prosecute any alcohol or drug abuse patient.[facility] HospitalIn the event this information is protected by the Federal Confidentiality of Alcohol and Drug Abuse Patient Records regulations: The Federal rules restrict any use of the information to criminally investigate or prosecute any alcohol or drug abuse patient.[facility] HospitalIn the event this information is protected by the Federal Confidentiality of Alcohol and Drug Abuse Patient Records regulations: The Federal rules restrict any use of the information to criminally investigate or prosecute any alcohol or drug abuse patient.[facility] HospitalIn the event this information is protected by the Federal Confidentiality of Alcohol and Drug Abuse Patient Records regulations: The Federal rules restrict any use of the information to criminally investigate or prosecute any alcohol or drug abuse patient.[facility] HospitalIn the event this information is protected by the Federal Confidentiality of Alcohol and Drug Abuse Patient Records regulations: The Federal rules restrict any use of the information to criminally investigate or prosecute any alcohol or drug abuse patient.[facility] HospitalIn the event this information is protected by the Federal Confidentiality of Alcohol and Drug Abuse Patient Records regulations: The Federal rules restrict any use of the information to criminally investigate or prosecute any alcohol or drug abuse patient.[facility] HospitalIn the event this information is protected by the Federal Confidentiality of Alcohol and Drug Abuse Patient Records regulations: The Federal rules restrict any use of the information to criminally investigate or prosecute any alcohol or drug abuse patient.[facility] HospitalIn the event this information is protected by the Federal Confidentiality of Alcohol and Drug Abuse Patient Records regulations: The Federal rules restrict any use of the information to criminally investigate or prosecute any alcohol or drug abuse patient.[facility] HospitalIn the event this information is protected by the Federal Confidentiality of Alcohol and Drug Abuse Patient Records regulations: The Federal rules restrict any use of the information to criminally investigate or prosecute any alcohol or drug abuse patient.[facility] HospitalIn the event this information is protected by the Federal Confidentiality of Alcohol and Drug Abuse Patient Records regulations: The Federal rules restrict any use of the information to criminally investigate or prosecute any alcohol or drug abuse patient.[facility] HospitalIn the event this information is protected by the Federal Confidentiality of Alcohol and Drug Abuse Patient Records regulations: The Federal rules restrict any use of the information to criminally investigate or prosecute any alcohol or drug abuse patient.[facility] HospitalIn the event this information is protected by the Federal Confidentiality of Alcohol and Drug Abuse Patient Records regulations: The Federal rules restrict any use of the information to criminally investigate or prosecute any alcohol or drug abuse patient.[facility] HospitalIn the event this information is protected by the Federal Confidentiality of Alcohol and Drug Abuse Patient Records regulations: The Federal rules restrict any use of the information to criminally investigate or prosecute any alcohol or drug abuse patient.[facility] HospitalIn the event this information is protected by the Federal Confidentiality of Alcohol and Drug Abuse Patient Records regulations: The Federal rules restrict any use of the information to criminally investigate or prosecute any alcohol or drug abuse patient.[facility] HospitalIn the event this information is protected by the Federal Confidentiality of Alcohol and Drug Abuse Patient Records regulations: The Federal rules restrict any use of the information to criminally investigate or prosecute any alcohol or drug abuse patient.[facility] HospitalIn the event this information is protected by the Federal Confidentiality of Alcohol and Drug Abuse Patient Records regulations: The Federal rules restrict any use of the information to criminally investigate or prosecute any alcohol or drug abuse patient.[facility] HospitalIn the event this information is protected by the Federal Confidentiality of Alcohol and Drug Abuse Patient Records regulations: The Federal rules restrict any use of the information to criminally investigate or prosecute any alcohol or drug abuse patient.[facility] HospitalIn the event this information is protected by the Federal Confidentiality of Alcohol and Drug Abuse Patient Records regulations: The Federal rules restrict any use of the information to criminally investigate or prosecute any alcohol or drug abuse patient.[facility] HospitalIn the event this information is protected by the Federal Confidentiality of Alcohol and Drug Abuse Patient Records regulations: The Federal rules restrict any use of the information to criminally investigate or prosecute any alcohol or drug abuse patient.[facility] HospitalIn the event this information is protected by the Federal Confidentiality of Alcohol and Drug Abuse Patient Records regulations: The Federal rules restrict any use of the information to criminally investigate or prosecute any alcohol or drug abuse patient.[facility] HospitalIn the event this information is protected by the Federal Confidentiality of Alcohol and Drug Abuse Patient Records regulations: The Federal rules restrict any use of the information to criminally investigate or prosecute any alcohol or drug abuse patient.[facility] HospitalIn the event this information is protected by the Federal Confidentiality of Alcohol and Drug Abuse Patient Records regulations: The Federal rules restrict any use of the information to criminally investigate or prosecute any alcohol or drug abuse patient.[facility] HospitalIn the event this information is protected by the Federal Confidentiality of Alcohol and Drug Abuse Patient Records regulations: The Federal rules restrict any use of the information to criminally investigate or prosecute any alcohol or drug abuse patient.[facility] HospitalIn the event this information is protected by the Federal Confidentiality of Alcohol and Drug Abuse Patient Records regulations: The Federal rules restrict any use of the information to criminally investigate or prosecute any alcohol or drug abuse patient.[facility] HospitalIn the event this information is protected by the Federal Confidentiality of Alcohol and Drug Abuse Patient Records regulations: The Federal rules restrict any use of the information to criminally investigate or prosecute any alcohol or drug abuse patient.[facility] HospitalIn the event this information is protected by the Federal Confidentiality of Alcohol and Drug Abuse Patient Records regulations: The Federal rules restrict any use of the information to criminally investigate or prosecute any alcohol or drug abuse patient.[facility] HospitalIn the event this information is protected by the Federal Confidentiality of Alcohol and Drug Abuse Patient Records regulations: The Federal rules restrict any use of the information to criminally investigate or prosecute any alcohol or drug abuse patient.[facility] HospitalIn the event this information is protected by the Federal Confidentiality of Alcohol and Drug Abuse Patient Records regulations: The Federal rules restrict any use of the information to criminally investigate or prosecute any alcohol or drug abuse patient.[facility] HospitalIn the event this information is protected by the Federal Confidentiality of Alcohol and Drug Abuse Patient Records regulations: The Federal rules restrict any use of the information to criminally investigate or prosecute any alcohol or drug abuse patient.[facility] HospitalIn the event this information is protected by the Federal Confidentiality of Alcohol and Drug Abuse Patient Records regulations: The Federal rules restrict any use of the information to criminally investigate or prosecute any alcohol or drug abuse patient.[facility] HospitalIn the event this information is protected by the Federal Confidentiality of Alcohol and Drug Abuse Patient Records regulations: The Federal rules restrict any use of the information to criminally investigate or prosecute any alcohol or drug abuse patient.[facility] HospitalIn the event this information is protected by the Federal Confidentiality of Alcohol and Drug Abuse Patient Records regulations: The Federal rules restrict any use of the information to criminally investigate or prosecute any alcohol or drug abuse patient.[facility] HospitalIn the event this information is protected by the Federal Confidentiality of Alcohol and Drug Abuse Patient Records regulations: The Federal rules restrict any use of the information to criminally investigate or prosecute any alcohol or drug abuse patient.[facility] HospitalIn the event this information is protected by the Federal Confidentiality of Alcohol and Drug Abuse Patient Records regulations: The Federal rules restrict any use of the information to criminally investigate or prosecute any alcohol or drug abuse patient.[facility] HospitalIn the event this information is protected by the Federal Confidentiality of Alcohol and Drug Abuse Patient Records regulations: The Federal rules restrict any use of the information to criminally investigate or prosecute any alcohol or drug abuse patient.[facility] HospitalIn the event this information is protected by the Federal Confidentiality of Alcohol and Drug Abuse Patient Records regulations: The Federal rules restrict any use of the information to criminally investigate or prosecute any alcohol or drug abuse patient.[facility] HospitalIn the event this information is protected by the Federal Confidentiality of Alcohol and Drug Abuse Patient Records regulations: The Federal rules restrict any use of the information to criminally investigate or prosecute any alcohol or drug abuse patient.[facility] HospitalIn the event this information is protected by the Federal Confidentiality of Alcohol and Drug Abuse Patient Records regulations: The Federal rules restrict any use of the information to criminally investigate or prosecute any alcohol or drug abuse patient.[facility] HospitalIn the event this information is protected by the Federal Confidentiality of Alcohol and Drug Abuse Patient Records regulations: The Federal rules restrict any use of the information to criminally investigate or prosecute any alcohol or drug abuse patient.[facility] HospitalIn the event this information is protected by the Federal Confidentiality of Alcohol and Drug Abuse Patient Records regulations: The Federal rules restrict any use of the information to criminally investigate or prosecute any alcohol or drug abuse patient.[facility] HospitalIn the event this information is protected by the Federal Confidentiality of Alcohol and Drug Abuse Patient Records regulations: The Federal rules restrict any use of the information to criminally investigate or prosecute any alcohol or drug abuse patient.[facility] HospitalIn the event this information is protected by the Federal Confidentiality of Alcohol and Drug Abuse Patient Records regulations: The Federal rules restrict any use of the information to criminally investigate or prosecute any alcohol or drug abuse patient.[facility] HospitalIn the event this information is protected by the Federal Confidentiality of Alcohol and Drug Abuse Patient Records regulations: The Federal rules restrict any use of the information to criminally investigate or prosecute any alcohol or drug abuse patient.[facility] HospitalIn the event this information is protected by the Federal Confidentiality of Alcohol and Drug Abuse Patient Records regulations: The Federal rules restrict any use of the information to criminally investigate or prosecute any alcohol or drug abuse patient.[facility] HospitalIn the event this information is protected by the Federal Confidentiality of Alcohol and Drug Abuse Patient Records regulations: The Federal rules restrict any use of the information to criminally investigate or prosecute any alcohol or drug abuse patient.[facility] HospitalIn the event this information is protected by the Federal Confidentiality of Alcohol and Drug Abuse Patient Records regulations: The Federal rules restrict any use of the information to criminally investigate or prosecute any alcohol or drug abuse patient.[facility] HospitalIn the event this information is protected by the Federal Confidentiality of Alcohol and Drug Abuse Patient Records regulations: The Federal rules restrict any use of the information to criminally investigate or prosecute any alcohol or drug abuse patient.[facility] HospitalIn the event this information is protected by the Federal Confidentiality of Alcohol and Drug Abuse Patient Records regulations: The Federal rules restrict any use of the information to criminally investigate or prosecute any alcohol or drug abuse patient.[facility] HospitalIn the event this information is protected by the Federal Confidentiality of Alcohol and Drug Abuse Patient Records regulations: The Federal rules restrict any use of the information to criminally investigate or prosecute any alcohol or drug abuse patient.[facility] HospitalIn the event this information is protected by the Federal Confidentiality of Alcohol and Drug Abuse Patient Records regulations: The Federal rules restrict any use of the information to criminally investigate or prosecute any alcohol or drug abuse patient.[facility] HospitalIn the event this information is protected by the Federal Confidentiality of Alcohol and Drug Abuse Patient Records regulations: The Federal rules restrict any use of the information to criminally investigate or prosecute any alcohol or drug abuse patient.[facility] Reason for Visit (unrecogniz ed section and content) Reason Comments Established Patient Specialty Diagnoses / Procedures Referred By Contac t Referred To Contact Diagnoses Thrombocytopenia (HCC) Iron deficiency anemia due to chronic blood loss Lashonda Aleman [address] [place] [address] Breezy [facility] [address] [place] [address] Referral ID Status Reason Start Date Expiration Date Visits Re quested Visits Authorized [id number] Closed 06/18/2023 09/16/2023 99 99 Reason Comments Established Patient Follow-Up Referral ID Status Reason Start Date Expiration Date V isits Requested Visits Authorized [id number] Authorized 06/18/2023 09/16/2023 99 99 Reason Onset Date Comments Refill Request 06/14/2021 Reason Comments Appointment Reason Comments Liver Disease Reason Onset Date Comments Refill Request 06/28/[address] Specialty Diagnoses / Procedures Referred By Contac t Referred To Contact CT IMAGING Diagnoses Liver lesion Procedures CT LIVER W IVCON CT ABDOMEN W/CONTRAST Derrek Bear MD [address] [place] [address] Ct Imaging Referral ID Status Reason Start Date Expiration Date V isits Requested Visits Authorized [id number] Closed Auto-Generate d Referral 07/23/2021 08/22/2022 1 [...] HIGH MDM 60-74 MINUTES Davis May MD [address] [place] [address] Referral ID Status Reason Start Date Expiration Date V isits Requested Visits Authorized [id number] Closed PCP Requested Referral 10/16/2021 10/16/2022 1 [...] Date Comments Population Health Navigation Outreach 04/08/2022 AC CYNDIE PCSA Reason Comments Refill Request Reason Onset Date Comments Refill Request 05/22/2022 Reason Comments Throat Problem Lots of phlegm const antly Specialty Diagnoses / Procedures Referred By Theresa troy Referred To Contact Ent - Otolaryngology Diagnoses Throat clearing Oral bleeding Procedures CONSULT TO ENT OFFICE/OUTPATIENT [facility] MDM 60-74 MINUTES Davis May MD [address] [place] [address] Referral ID Status Reason Start Date Expiration Date V isits Requested Visits Authorized [id number] Closed PCP Requested Referral 04/20/2022 04/20/2023 1 [...] 2 diabetes mellitus without complication, unspecified whether watermaster insulin use (HCC) Procedures CONSULT TO OPHTHALMOLOGY OFFICE/OUTPATIENT [facility] MDM 60-74 MINUTES Davis May MD [address] [place] [address] Referral ID Status Reason Start Date Expiration Date V isits Requested Visits Authorized [id number] Closed PCP Requested Referral 01/15/2023 01/15/2024 1 [...] blood loss Procedures CONSULT TO HEMATOLOGY/ONCOLOGY OFFICE/OUTPATIENT [facility] 60 MINUTES Derrek Bear MD [address] [place] [address] Referral ID Status Reason Start Date Expiration Date V isits Requested Visits Authorized [id number] Closed PCP Requested Referral 06/15/2023 06/14/2024 1 [...] unspecified chronicity Procedures CONSULT TO ORTHOPAEDICS OFFICE/OUTPATIENT [facility] 60 MINUTES Davis May MD [address] [place] [address] Referral ID Status Reason Start Date Expiration Date V isits Requested Visits Authorized [id number] Closed PCP Requested Referral 02/09/2024 02/08/2025 1 1 Reason Comments Radio Gen RMP Radiology Service Pr ogress NotePATIENT NAME: Mateus YiMRN: [id number] OF SERVICE: February 14, 2024TIME: 10:11 AMPATIENT [...] KNEE COMPLETE 4/MORE VIEWS Davis May MD [address] [place] [address] Xr Imaging [place] [address] Referral ID Status Reason Start Date Expiration Date V isits Requested Visits Authorized [id number] Closed Auto-Generate d Referral 02/09/2024 03/10/2025 1 1 Reason Onset Date Comments Refill Request 02/19/2024 Reason Comments Benefits Investigation Reason Comments Patient Update Specialty Diagnoses / Procedures Referred By Contac t Referred To Contact CT IMAGING Diagnoses Liver disease Procedures CT LIVER W IVCON CT ABDOMEN W/CONTRAST Derrek Bear MD [address] [place] [address] Ct Imaging [place] [address] Referral ID Status Reason Start Date Expiration Date V isits Requested Visits Authorized [id number] Closed Auto-Generate d Referral 10/01/2023 10/30/2024 1 [...] HIGH MDM 60 MINUTES Davis May MD [address] [place] [address] Referral ID Status Reason Start Date Expiration Date V isits Requested Visits Authorized [id number] Closed PCP Requested Referral 04/14/2024 04/14/2025 1 [...] Reason Comments Orders RUSTAM notes faxed to [facility] Reason Comments Actinic Keratosis Follow Up 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 Reason Comments Follow Up Autoimmune [...] By Contac t Referred To Contact Spine Crumrod Diagnoses Neck pain Procedures CONSULT TO [facility] OFFICE/OUTPATIENT [facility] 60 MINUTES Obdulia Martínez, P[employer]AGER AND STRAPPER.ROAD INSPECTOR [address] [place] [address] Phone: tel: fax: Referral ID Status Reason Start Date Expiration Date V isits Requested Visits Authorized [id number] Closed PCP Requested Referral 10/03/2024 10/03/2025 1 1 Specialty Diagnoses / Procedures Referred By Contac t Referred To Contact CT IMAGING Diagnoses Spinal stenosis of cervical region Procedures CT CERVICAL SPINE WO IVCON CT CERVICAL SPINE W/O CONTRAST MATERIAL Obdulia Martínez, PACKAGER AND STRAPPER.ROAD INSPECTOR [address] [place] [address] Phone: tel: fax: [place] [address] Referral ID Status Reason Start Date Expiration Date V isits Requested Visits Authorized [id number] Closed Auto-Generate d Referral 10/03/2024 11/02/2025 1 1 Reason Comments Results Cervical CT Scan Reason Comments Neck Pain Follow Up Reason Comments Cardiac Clearance Anticoagulation Specialty Diagnoses / Procedures Referred By Contac t Referred To Contact CT IMAGING Diagnoses Portal vein thrombosis Procedures CTA ABD/PEL W IVCON CT ANGIO ABD&PLVIS CNTRST MTRL W/WO CNTRST Jose Laboy MD [address] [place] [address] Phone: tel: fax: CT IMAGING [place] [address] Referral ID Status Reason Start Date Expiration Date V isits Requested Visits Authorized [id number] Closed Auto-Generate d Referral 08/07/2024 09/06/2025 1 1 Reason Onset Date Comments Refill Request 11/09/2024 Reason Comments Follow Up Care Teams (unrecognized sec tion and content) Photo Print Specialist Relationship Specialty Start Date End Date Davis May MD [address] [place] [address] [id number] PCP - General Family Practice 10/11/20 Nova Shahid MD [address] [place] [address] Primary Staff Physician Cardiology 11/19/20 Photo Print Specialist Relationship Specialty Start Date End Date Davsi May MD [address] [place] [address] [id number] PCP - General Family Practice 10/11/20 Nova Shahid MD [address] [place] [address] Primary Staff Physician Cardiology 11/19/20 Photo Print Specialist Relationship Specialty Start Date End Date Davis May MD [address] [place] [address] [id number] PCP - General Family Practice 10/11/20 Nova Shahid MD [address] [place] [address] Primary Staff Physician Cardiology 11/19/20 Photo Print Specialist Relationship Specialty Start Date End Date Davis May MD [address] [place] [address] PCP - General Family Practice 10/11/20 Nova Shahid MD [address] [place] [address] Primary Staff Physician Cardiology 11/19/20 Photo Print Specialist Relationship Specialty Start Date End Date Davis May MD [address] [place] [address] PCP - General Family Practice 10/11/20 Nova Shahid MD [address] [place] [address] Primary Staff Physician Cardiology 11/19/20 Photo Print Specialist Relationship Specialty Start Date End Date Davis May MD [address] [place] [address] PCP - General Family Practice 10/11/20 Nova Shahid MD [address] [place] [address] Primary Staff Physician Cardiology 11/19/20 Photo Print Specialist Relationship Specialty Start Date End Date Davis May MD [address] [place] [address] PCP - General Family Practice 10/11/20 Nova Shahid MD [address] [place] [address] Primary Staff Physician Cardiology 11/19/20 Photo Print Specialist Relationship Specialty Start Date End Date Davis May MD [address] [place] [address] PCP - General Family Practice 10/11/20 Nova Shahid MD [address] [place] [address] Primary Staff Physician Cardiology 11/19/20 Photo Print Specialist Relationship Specialty Start Date End Date Davis May MD [address] [place] [address] PCP - General Family Practice 10/11/20 Nova Shahid MD [address] [place] [address] Primary Staff Physician Cardiology 11/19/20 Photo Print Specialist Relationship Specialty Start Date End Date Davis May MD [address] [place] [address] PCP - General Family Practice 10/11/20 Nova Shahid MD [address] [place] [address] Primary Staff Physician Cardiology 11/19/20 Photo Print Specialist Relationship Specialty Start Date End Date Davis May MD [address] [place] [address] PCP - General Family Practice 10/11/20 Nova Shahid MD [address] [place] [address] Primary Staff Physician Cardiology 11/19/20 Photo Print Specialist Relationship Specialty Start Date End Date Davis May MD [address] [place] [address] PCP - General Family Practice 10/11/20 Nova Shahid MD [address] [place] [address] Primary Staff Physician Cardiology 11/19/20 Photo Print Specialist Relationship Specialty Start Date End Date Davis May MD [address] [place] [address] PCP - General Family Practice 10/11/20 Nova Shahid MD [address] [place] [address] Primary Staff Physician Cardiology 11/19/20 Photo Print Specialist Relationship Specialty Start Date End Date Davis May MD [address] [place] [address] PCP - General Family Practice 10/11/20 Nova Shahid MD [address] [place] [address] Primary Staff Physician Cardiology 11/19/20 Photo Print Specialist Relationship Specialty Start Date End Date Davis May MD [address] [place] [address] PCP - General Family Practice 10/11/20 Nova Shahid MD [address] [place] [address] Primary Staff Physician Cardiology 11/19/20 Photo Print Specialist Relationship Specialty Start Date End Date Davis May MD [address] [place] [address] PCP - General Family Medicine 10/11/20 Nova Shahid MD [address] [place] [address] Primary Staff Physician Cardiology 11/19/20 Photo Print Specialist Relationship Specialty Start Date End Date Davis May MD [address] [place] [address] PCP - General Family Medicine 10/11/20 Nova Shahid MD [address] [place] [address] Primary Staff Physician Cardiology 11/19/20 Photo Print Specialist Relationship Specialty Start Date End Date Davis May MD [address] [place] [address] PCP - General Family Medicine 10/11/20 Nova Shahid MD [address] [place] [address] Primary Staff Physician Cardiology 11/19/20 Photo Print Specialist Relationship Specialty Start Date End Date Davis May MD [address] [place] [address] PCP - General Family Medicine 10/11/20 Nova Shahid MD [address] [place] [address] Primary Staff Physician Cardiology 11/19/20 Photo Print Specialist Relationship Specialty Start Date End Date Davis May MD [address] [place] [address] PCP - General Family Medicine 10/11/20 Nova Shahid MD [address] [place] [address] Primary Staff Physician Cardiology 11/19/20 Photo Print Specialist Relationship Specialty Start Date End Date Davis May MD [address] [place] [address] PCP - General Family Medicine 10/11/20 Nova Sahhid MD [address] [place] [address] Primary Staff Physician Cardiology 11/19/20 Photo Print Specialist Relationship Specialty Start Date End Date Davis May MD [address] [place] [address] PCP - General Family Medicine 10/11/20 Nova Shahid MD [address] [place], [place] [id number] Primary Staff Physician Cardiology 11/19/20 Photo Print Specialist Relationship Specialty Start Date End Date Davis May MD [address] [place] [address] PCP - General Family Medicine 10/11/20 Nova Shahid MD [address] [place] [address] Primary Staff Physician Cardiology 11/19/20 Photo Print Specialist Relationship Specialty Start Date End Date Davis May MD [address] [place] [address] PCP - General Family Medicine 10/11/20 Nova Shahid MD [address] [place] [address] Primary Staff Physician Cardiology 11/19/20 Photo Print Specialist Relationship Specialty Start Date End Date Davis May MD [address] [place] [address] PCP - General Family Medicine 10/11/20 Nova Shahid MD [address] [place] [address] Primary Staff Physician Cardiology 11/19/20 Photo Print Specialist Relationship Specialty Start Date End Date Davis May MD [address] [place] [address] PCP - General Family Medicine 10/11/20 Nova Shahid MD [address] [place] [address] Primary Staff Physician Cardiology 11/19/20 Photo Print Specialist Relationship Specialty Start Date End Date Davis May MD [address] [place] [address] PCP - General Family Medicine 10/11/20 Nova Shahid MD [address] [place] [address] Primary Staff Physician Cardiology 11/19/20 Photo Print Specialist Relationship Specialty Start Date End Date Davis May MD [address] [place] [address] PCP - General Family Medicine 10/11/20 Nova Shahid MD [address] [place] [address] Primary Staff Physician Cardiology 11/19/20 Photo Print Specialist Relationship Specialty Start Date End Date Davis May MD [address] [place] [address] PCP - General Family Medicine 10/11/20 Nova Shahid MD [address] [place] [address] Primary Staff Physician Cardiology 11/19/20 Photo Print Specialist Relationship Specialty Start Date End Date Davis May MD [address] [place] [address] PCP - General Family Medicine 10/11/20 Nova Shahid MD [address] [place] [address] Primary Staff Physician Cardiology 11/19/20 Photo Print Specialist Relationship Specialty Start Date End Date Davis May MD [address] [place] [address] PCP - General Family Medicine 10/11/20 Nova Shahid MD [address] [facility] [place] [address] Primary Staff Physician Cardiology 11/19/20 Photo Print Specialist Relationship Specialty Start Date End Date Davis May MD [address] [place] [address] PCP - General Family Medicine 10/11/20 Nova Shahid MD [address] [place] [address] Primary Staff Physician Cardiology 11/19/20 Photo Print Specialist Relationship Specialty Start Date End Date Davis May MD [address] [place] [address] PCP - General Family Medicine 10/11/20 Nova Shahid MD [address] [place] [address] Primary Staff Physician Cardiology 11/19/20 Photo Print Specialist Relationship Specialty Start Date End Date Davis May MD [address] [place] [address] PCP - General Family Medicine 10/11/20 Nova Shahid MD [address] [place] [address] Primary Staff Physician Cardiology 11/19/20 Photo Print Specialist Relationship Specialty Start Date End Date Davis May MD [address] [place] [address] PCP - General Family Medicine 10/11/20 Nova Shahid MD [address] [place] [address] Primary Staff Physician Cardiology 11/19/20 Photo Print Specialist Relationship Specialty Start Date End Date Davis aMy MD [address] [place] [address] PCP - General Family Medicine 10/11/20 Nova Shahid MD [address] [place] [address] Primary Staff Physician Cardiology 11/19/20 Photo Print Specialist Relationship Specialty Start Date End Date Davis May MD [address] [place] [address] PCP - General Family Medicine 10/11/20 Nova Shahid MD [address] [place] [address] Primary Staff Physician Cardiology 11/19/20 Photo Print Specialist Relationship Specialty Start Date End Date Davis May MD [address] [place] [address] PCP - General Family Medicine 10/11/20 Nova Shahid MD [address] [place], [place] [address] Primary Staff Physician Cardiology 11/19/20 Photo Print Specialist Relationship Specialty Start Date End Date Davis May MD [address] [place] [address] PCP - General Family Medicine 10/11/20 Nova Shahid MD [address] [place] [address] Primary Staff Physician Cardiology 11/19/20 Photo Print Specialist Relationship Specialty Start Date End Date Davis May MD [address] [place] [address] PCP - General Family Medicine 10/11/20 Nova Shahid MD [address] [place] [address] Primary Staff Physician Cardiology 11/19/20 Photo Print Specialist Relationship Specialty Start Date End Date Davis May MD [address] [place], [place] [address]01 PCP - General Family Medicine 10/11/20 Nova Shahid MD [address] [place] [address] Primary Staff Physician Cardiology 11/19/20 Photo Print Specialist Relationship Specialty Start Date End Date Davis May MD [address] [place], [place] [address]141 PCP - General Family Medicine 10/11/20 Nova Shahid MD [address] [place] [address] Primary Staff Physician Cardiology 11/19/20 Photo Print Specialist Relationship Specialty Start Date End Date Davis May MD 0 [place], [place] 588111 PCP - General Family Medicine 10/11/20 Nova Shahid MD [address] [place] [address] Primary Staff Physician Cardiology 11/19/20 Photo Print Specialist Relationship Specialty Start Date End Date Davis May MD 0 [place] [address] PCP - General Family Medicine 10/11/20 Nova Shahid MD [address] [place] [address] Primary Staff Physician Cardiology 11/19/20 Photo Print Specialist Relationship Specialty Start Date End Date Davis May MD [address] [place] [address] PCP - General Family Medicine 10/11/20 Nova Shahid MD [address] [place] [address] Primary Staff Physician Cardiology 11/19/20 Photo Print Specialist Relationship Specialty Start Date End Date Davis May MD [address] [place] [address] PCP - General Family Medicine 10/11/20 Nova Shahid MD [address] [place] [address] Primary Staff Physician Cardiology 11/19/20 Photo Print Specialist Relationship Specialty Start Date End Date Davis May MD [address] [place], [place] 244041 PCP - General Family Medicine 10/11/20 Nova Shahid MD [address] [place] [address] Primary Staff Physician Cardiology 11/19/20 Photo Print Specialist Relationship Specialty Start Date End Date Davis May MD [address] [place], [place] 571701 PCP - General Family Medicine 10/11/20 Nova Shahid MD [address] [place], [place] 7730395 Primary Staff Physician Cardiology 11/19/20 Photo Print Specialist Relationship Specialty Start Date End Date Davis May MD [address] [place] [address] PCP - General Family Medicine 10/11/20 Nova Shahid MD [address] [place] [address] Primary Staff Physician Cardiology 11/19/20 Photo Print Specialist Relationship Specialty Start Date End Date Davis May MD [address] [place] [address] PCP - General Family Medicine 10/11/20 Nova Shahid MD [address] [place] [address] Primary Staff Physician Cardiology 11/19/20 Team Status: Active Member Role Status Dates Dr. Gray Noguera III, MD Family Provider Active Dr. Davis May MD Primary Care Provider Active Team Status: Active Member Role Status Dates Dr. Esteban Renee MD Emergency Provider Active Dr. Davis May MD Primary Care Provider Active Dr. Bernadette Sharma , Admit Provider, Attending Pr ovider Active Team Status: Active Member Role Status Dates Dr. Esteban Renee MD Emergency Provider Active Dr. Davis May MD Primary Care Provider Active Dr. Bernadette Sharma , Admit Provider, Other Provid er Active Dr. Roselia Santos , DO Other Provider Active Dr. Tommy Cornejo DO Attending Provider Active Team Status: Active Member Role Status Dates Dr. Esteban Renee MD Emergency Provider Active Dr. Davis May MD Primary Care Provider Active Dr. Bernadette Sharma DO Admit Provider, Other Provid er Active Dr. Roselia Santos , DO Attending Provider, Other Provide r Active Team Status: Active Member Role Status Dates Dr. Davis May MD Primary Care Provider Active Dr. Tommy Friend , DO Attending Provider Active Team Status: Active Member Role Status Dates Dr. Esteban Renee MD Emergency Provider Active Dr. Davis May MD Primary Care Provider Active Dr. Bernadette Sharma , DO Admit Provider, Other Provid er Active Dr. Roselia Santos , DO Other Provider Active Dr. Syed Salazar MD Attending Provider, Other Provi kaylin Active Dr. Bernadette Jernigan MD Other Provider Active Team Status: Inactive Member Role Status Dates Dr. Esteban Renee MD Emergency Provider Active Dr. Davis May MD Primary Care Provider Active Dr. Bernadette Sharma , DO Admit Provider, Other Provid er Active Dr. Roselia Santos , DO Other Provider Active Dr. Syed Salazar MD Attending Provider Active Dr. Bernadette Jernigan MD Other Provider Active Photo Print Specialist Relationship Specialty Start Date End Date Davis May MD [address] [place], [place] 874131 PCP - General Family Medicine 10/11/20 Nova Shahid MD [address] [place], [place] 9228895 Primary Staff Physician Cardiology 11/19/20 Photo Print Specialist Relationship Specialty Start Date End Date Davis May MD [address] [place], [place] 327511 PCP - General Family Medicine 10/11/20 Nova Shahid MD [address] [place], [place] 6632695 Primary Staff Physician Cardiology 11/19/20 Photo Print Specialist Relationship Specialty Start Date End Date Davis May MD [address] [place] [address] PCP - General Family Medicine 10/11/20 Nova Shahid MD [address] [place], [place] 3490395 Primary Staff Physician Cardiology 11/19/20 Photo Print Specialist Relationship Specialty Start Date End Date Davis May MD [address] [place], [place] 323011 PCP - General Family Medicine 10/11/20 Nova Shahid MD [address] [place] [address] Primary Staff Physician Cardiology 11/19/20 Photo Print Specialist Relationship Specialty Start Date End Date Davis May MD [address] [place], [place] 257941 PCP - General Family Medicine 10/11/20 Nova Shahid MD [address] [place] [address] Primary Staff Physician Cardiology 11/19/20 Photo Print Specialist Relationship Specialty Start Date End Date Davis May MD [address] [place], [place] 26359691 PCP - General Family Medicine 10/11/20 Nova Shahid MD [address] [place] [address] Primary Staff Physician Cardiology 11/19/20 Photo Print Specialist Relationship Specialty Start Date End Date Davis May MD [address] [place] [address] PCP - General Family Medicine 10/11/20 Nova Shahid MD [address] [place] [address] Primary Staff Physician Cardiology 11/19/20 Photo Print Specialist Relationship Specialty Start Date End Date Davis May MD [address] [place] [address] PCP - General Family Medicine 10/11/20 Nova Shahid MD [address] [place] [address] Primary Staff Physician Cardiology 11/19/20 Photo Print Specialist Relationship Specialty Start Date End Date Daivs May MD 0 [place] [address] PCP - General Family Medicine 10/11/20 Nova Shahid MD [address] [place] [address] Primary Staff Physician Cardiology 11/19/20 Photo Print Specialist Relationship Specialty Start Date End Date Davis May MD [address] [place], [place] 856961 PCP - General Family Medicine 10/11/20 Nova Shahid MD [address] [place] [address] Primary Staff Physician Cardiology 11/19/20 Photo Print Specialist Relationship Specialty Start Date End Date Davis May MD [address] [place] [address] PCP - General Family Medicine 10/11/20 Nova Shahid MD [address] [place], [place] 1568095 Primary Staff Physician Cardiology 11/19/20 Photo Print Specialist Relationship Specialty Start Date End Date Davis May MD [address] [place], [place] 033031 PCP - General Family Medicine 10/11/20 Nova Shahid MD [address] [place], [place] 2987595 Primary Staff Physician Cardiology 11/19/20 Photo Print Specialist Relationship Specialty Start Date End Date Davis May MD [address] [place], [place] 624421 PCP - General Family Medicine 10/11/20 Nova Shahid MD [address] [place] [address] Primary Staff Physician Cardiology 11/19/20 Photo Print Specialist Relationship Specialty Start Date End Date Davis May MD [address] [place], [place] 747061 PCP - General Family Medicine 10/11/20 Nova Shahid MD [address] [place] 6796395 Primary Staff Physician Cardiology 11/19/20 Photo Print Specialist Relationship Specialty Start Date End Date Davis May MD [address] [place], [place] 84862691 PCP - General Family Medicine 10/11/20 Nova Shahid MD [address] [place] [address] Primary Staff Physician Cardiology 11/19/20 Photo Print Specialist Relationship Specialty Start Date End Date Davis May MD [address] [place], [place] 070541 PCP - General Family Medicine 10/11/20 Nova Shahid MD [address] [place] [address] Primary Staff Physician Cardiology 11/19/20 Photo Print Specialist Relationship Specialty Start Date End Date Davis May MD [address] [place], [place] 226331 PCP - General Family Medicine 10/11/20 Nova Shahid MD [address] [place] [address] Primary Staff Physician Cardiology 11/19/20 Photo Print Specialist Relationship Specialty Start Date End Date Davis May MD [address] [place], [place] 508081 PCP - General Family Medicine 10/11/20 Nova Shahid MD [address] [place] [address] Primary Staff Physician Cardiology 11/19/20 Photo Print Specialist Relationship Specialty Start Date End Date Davis May MD [address] [place], [place] 443991 PCP - General Family Medicine 10/11/20 Nova Shahid MD [address] [place] [address] Primary Staff Physician Cardiology 11/19/20 Derrek Bear MD [address] [place], [place] 4974795 Gastroenterology 12/02/23 Photo Print Specialist Relationship Specialty Start Date End Date Davis May MD [address] [place], [place] 889291 PCP - General Family Medicine 10/11/20 Nova Shahid MD [address] [place], [place] 8659795 Primary Staff Physician Cardiology 11/19/20 Photo Print Specialist Relationship Specialty Start Date End Date Davis May MD [address] [place], [place] 47284691 PCP - General Family Medicine 10/11/20 Nova Shahid MD [address] [place], [place] 6434395 Primary Staff Physician Cardiology 11/19/20 Derrek Bear MD [address] [place], [place] 7951395 Gastroenterology 12/02/23 Photo Print Specialist Relationship Specialty Start Date End Date Davis May MD [address] [place], [place] 64466691 PCP - General Family Medicine 10/11/20 Nova Shahid MD [address] [place], [place] 9882295 Primary Staff Physician Cardiology 11/19/20 Derrek Bear MD [address] [place] [address] Gastroenterology 12/02/23 Photo Print Specialist Relationship Specialty Start Date End Date Davis May MD [address] [place] [address] PCP - General Family Medicine 10/11/20 Nova Shahid MD [address] [place] [address] Primary Staff Physician Cardiology 11/19/20 Derrek Bear MD [address] [place], [place] 6803195 Gastroenterology 12/02/23 Photo Print Specialist Relationship Specialty Start Date End Date Davis May MD [address] [place], [place] 069171 PCP - General Family Medicine 10/11/20 Nova Shahid MD [address] [place], [place] 4659695 Primary Staff Physician Cardiology 11/19/20 Derrek Bear MD [address] [place] [address] Gastroenterology 12/02/23 Photo Print Specialist Relationship Specialty Start Date End Date Davis May MD [address] [place] [address] PCP - General Family Medicine 10/11/20 Nova Shahid MD [address] [place] [address] Primary Staff Physician Cardiology 11/19/20 Derrek Bear MD [address] [place] [address] Gastroenterology 12/02/23 Photo Print Specialist Relationship Specialty Start Date End Date Davis May MD [address] [place], [place] 769491 PCP - General Family Medicine 10/11/20 Nova Shahid MD [address] [place] [address] Primary Staff Physician Cardiology 11/19/20 Derrek Bear MD [address] [place], [place] 4810195 Gastroenterology 12/02/23 Photo Print Specialist Relationship Specialty Start Date End Date Davis May MD [address] [place], [place] 865641 PCP - General Family Medicine 10/11/20 Nova Shahid MD [address] [place], [place] 8332395 Primary Staff Physician Cardiology 11/19/20 Derrek Bear MD [address] [place], [place] 4718495 Gastroenterology 12/02/23 Photo Print Specialist Relationship Specialty Start Date End Date Davis May MD [address] [place], [place] 84744691 PCP - General Family Medicine 10/11/20 Nova Shahid MD [address] [place], [place] 3427095 Primary Staff Physician Cardiology 11/19/20 Derrek Bear MD [address] [place], [place] 4184295 Gastroenterology 12/02/23 Photo Print Specialist Relationship Specialty Start Date End Date Davis May MD [address] [place], [place] 19076691 PCP - General Family Medicine 10/11/20 Nova Shahid MD [address] [place], [place] 2569795 Primary Staff Physician Cardiology 11/19/20 Derrek Bear MD [address] [place], [place] 6078695 Gastroenterology 12/02/23 Photo Print Specialist Relationship Specialty Start Date End Date Davis May MD [address] [place], [place] 41382691 PCP - General Family Medicine 10/11/20 Nova Shahid MD [address] [place], [place] 9990395 Primary Staff Physician Cardiology 11/19/20 Derrek Bear MD [address] [place], [place] 9122095 Gastroenterology 12/02/23 Photo Print Specialist Relationship Specialty Start Date End Date Davis May MD [address] [place] [address] PCP - General Family Medicine 10/11/20 Nova Shahid MD [address] [place], [place] 7293095 Primary Staff Physician Cardiology 11/19/20 Derrek Bear MD [address] [place], [place] 9000695 Gastroenterology 12/02/23 Photo Print Specialist Relationship Specialty Start Date End Date Davis May MD [address] [place] [address] PCP - General Family Medicine 10/11/20 Nova Shahid MD [address] [place], [place] 2393095 Primary Staff Physician Cardiology 11/19/20 Derrek Bear MD [address] [place], [place] 4250495 Gastroenterology 12/02/23 Photo Print Specialist Relationship Specialty Start Date End Date Davis May MD [address] [place] [address] PCP - General Family Medicine 10/11/20 Nova Shahid MD [address] [place] [address] Primary Staff Physician Cardiology 11/19/20 Photo Print Specialist Relationship Specialty Start Date End Date Davis May MD [address] [place] [address] PCP - General Family Medicine 10/11/20 Nova Shahid MD [address] [place], [place] 9702695 Primary Staff Physician Cardiology 11/19/20 Derrek Bear MD [address] [place] [place], [place] 7511295 Gastroenterology 12/02/23 Obdulia Martínez APRN.ROAD INSPECTOR [address] [place] [address] Assignment Officer Family Medicine 02/28/24 Sanna Larsen APRN.ROAD INSPECTOR [address] [place] [address] Assignment Officer Family [facility] 02/28/24 Photo Print Specialist Relationship Specialty Start Date End Date Davis May MD [address] [place], [place] 904231 PCP - General Family Medicine 10/11/20 Nova Shahid MD [address] [place] [address] Primary Staff Physician Cardiology 11/19/20 Derrek Bear MD [address] [place] [address] Gastroenterology 12/02/23 Obdulia Martínez APRN.ROAD INSPECTOR [address] [place], [place] 81933691 Assignment Officer Family Medicine 02/28/24 Sanna Larsen, PACKAGER AND STRAPPER.ROAD INSPECTOR [address] [place] [address] Formerly [facility] 02/28/24 Photo Print Specialist Relationship Specialty Start Date End Date Davis May MD [address] [place], [place] 961111 PCP - General Family Medicine 10/11/20 Nova Shahid MD [address] [place], [place] 9893895 Primary Staff Physician Cardiology 11/19/20 Derrek Bear MD [address] [place], [place] 2094695 Gastroenterology 12/02/23 Obdulia Martínez, PACKAGER AND STRAPPER.ROAD INSPECTOR [address] [place] [address] Formerly [facility] 02/28/24 Sanna Larsen, PACKAGER AND STRAPPER.ROAD INSPECTOR [address] [place] [address] Formerly [facility] 02/28/24 Photo Print Specialist Relationship Specialty Start Date End Date Davis May MD [address] [place] [address] PCP - General Family Medicine 10/11/20 Nova Shahid MD [address] [place], [place] 0560395 Primary Staff Physician Cardiology 11/19/20 Derrek Bear MD [address] [place] [address] Gastroenterology 12/02/23 Obdulia Martínez APRN.ROAD INSPECTOR [address] [place] [address] Assignment Officer Family Medicine 02/28/24 Sanna Larsen APRN.ROAD INSPECTOR [address] [place] [address] Assignment Officer [facility] 02/28/24 Photo Print Specialist Relationship Specialty Start Date End Date Davis May MD [address] [place] [address] PCP - General Family Medicine 10/11/20 Nova Shahid MD [address] [place] [address] Primary Staff Physician Cardiology 11/19/20 Derrek Bear MD [address] [place] [address] Gastroenterology 12/02/23 Obdulia Martínez APRN.ROAD INSPECTOR [address] [place] [address] Assignment Officer [facility] 02/28/24 Sanna Larsen PACKAGER AND STRAPPER.ROAD INSPECTOR [address] [place], [place] 892341 [facility] 02/28/24 Photo Print Specialist Relationship Specialty Start Date End Date Davis May MD [address] [place], [place] 10721691 PCP - General Family Medicine 10/11/20 Nova Shahid MD [address] [place], [place] 5071995 Primary Staff Physician Cardiology 11/19/20 Derrek Bear MD [address] [place], [place] 4941295 Gastroenterology 12/02/23 Obdulia Martínez APRN.ROAD INSPECTOR [address] [place], [place] 957331 Assignment Officer [facility] 02/28/24 Sanna Larsen APRN.ROAD INSPECTOR [address] [place] [address] [facility] 02/28/24 Denae Coombs, RN [address] [place] [address] Primary Care Nutrition Director 04/03/24 Photo Print Specialist Relationship Specialty Start Date End Date Davis May MD [address] [place], [place] 557411 PCP - General Family Medicine 10/11/20 Nova Shahid MD [address] [place], [place] 0777595 Primary Staff Physician Cardiology 11/19/20 Derrek Bear MD [address] [place], [place] 5673995 Gastroenterology 12/02/23 Obdulia Martínez APRN.ROAD INSPECTOR [address] [place], [place] 694341 Assignment Officer [facility] 02/28/24 Sanna Larsen, PACKAGER AND STRAPPER.ROAD INSPECTOR [address] [place], [place] 407331 [facility] 02/28/24 Denae Coombs, RAMIN [address] [place] [address] Primary Care Nutrition Director 04/03/24 Photo Print Specialist Relationship Specialty Start Date End Date Davis May MD [address] [place], [place] 125671 PCP - General Family Medicine 10/11/20 Nova Shahid MD [address] [place], [place] 5637895 Primary Staff Physician Cardiology 11/19/20 Derrek Bear MD [address] [place] [address] Gastroenterology 12/02/23 Obdulia Martínez APRN.ROAD INSPECTOR [address] [place] [address] Formerly [facility] 02/28/24 Sanna Larsen, PACKAGER AND STRAPPER.ROAD INSPECTOR [address] [place] [address] Formerly [facility] 02/28/24 Denae Coombs, RAMIN [address] [place] [address] Primary Care Nutrition Director 04/03/24 Photo Print Specialist Relationship Specialty Start Date End Date Davis May MD [address] [place], [place] 78691691 PCP - General Family Medicine 10/11/20 Nova Shahid MD [address] [place], [place] 7445395 Primary Staff Physician Cardiology 11/19/20 Derrek Bear MD [address] [place], [place] 4907395 Gastroenterology 12/02/23 Obdulia Martínez APRN.ROAD INSPECTOR [address] [place], [place] 057321 [facility] 02/28/24 Sanna Larsen APRN.ROAD INSPECTOR [address] [place], [place] 999681 Formerly [facility] 02/28/24 Denae Coombs, RN [address] [place] [address] Primary Care Nutrition Director 04/03/24 Photo Print Specialist Relationship Specialty Start Date End Date Davis May MD [address] [place], [place] [id number] PCP - General Family Medicine 10/11/20 Nova Shahid MD [address] [facility] [place], [place] 9885295 Primary Staff Physician Cardiology 11/19/20 Derrek Bear MD [address] [place], [place] 6112595 Gastroenterology 12/02/23 Obdulia Martínez APRN.ROAD INSPECTOR [address] [place], [place] 684261 [facility] 02/28/24 Sanna Larsen, PACKAGER AND STRAPPER.ROAD INSPECTOR [address] [place], [place] 881361 [facility] 02/28/24 Denae Coombs, RAMIN [address] [place] [address] Primary Care Nutrition Director 04/03/24 Photo Print Specialist Relationship Specialty Start Date End Date Davis May MD [address] [place], [place] 345961 PCP - General Family Medicine 10/11/20 Nova Shahid MD [address] [place], [place] 0165495 Primary Staff Physician Cardiology 11/19/20 Derrek Bear MD [address] [place] [address] Gastroenterology 12/02/23 Obdulia Martínez, PACKAGER AND STRAPPER.ROAD INSPECTOR [address] [place] [address] Formerly [facility] 02/28/24 Sanna Larsen, PACKAGER AND STRAPPER.ROAD INSPECTOR [address] [place] [address] Formerly [facility] 02/28/24 Denae Coombs, RAMIN [address] [place] [address] Primary Care Nutrition Director 04/03/24 Photo Print Specialist Relationship Specialty Start Date End Date Davis May MD [address] [place], [place] 66650691 PCP - General Family Medicine 10/11/20 Nova Shahid MD [address] [place], [place] 9530695 Primary Staff Physician Cardiology 11/19/20 Derrek Bear MD [address] [place], [place] 7511395 Gastroenterology 12/02/23 Obdulia Martínez APRN.ROAD INSPECTOR [address] [place], [place] 643711 [facility] 02/28/24 Sanna Larsen APRN.ROAD INSPECTOR [address] [place] [address] Formerly [facility] 02/28/24 Denae Coombs, RN [address] [place], [place] 3211031 Primary Care Nutrition Director 04/03/24 Photo Print Specialist Relationship Specialty Start Date End Date Davis May MD [address] [place], [place] [id number] PCP - General Family Medicine 10/11/20 Nova Shahid MD [address] [facility] [facility] [place], [place] 9726795 Primary Staff Physician Cardiology 11/19/20 Derrek Bear MD [address] [place], [place] 8466695 Gastroenterology 12/02/23 Obdulia Martínez APRN.ROAD INSPECTOR [address] [place], [place] 372291 Assignment Officer [facility] 02/28/24 Sanna Larsen PACKAGER AND STRAPPER.ROAD INSPECTOR [address] [place], [place] 200141 [facility] 02/28/24 Denae Coombs, RAMIN [address] [place] [address] Primary Care Nutrition Director 04/03/24 Photo Print Specialist Relationship Specialty Start Date End Date Davis May MD [address] [place] [address] PCP - General Family Medicine 10/11/20 Nova Shahid MD [address] [place], [place] 3956495 Primary Staff Physician Cardiology 11/19/20 Derrek Bear MD [address] [place] [address] Gastroenterology 12/02/23 Obdulia Martínez APRN.ROAD INSPECTOR [address] [place] [address] Formerly [facility] 02/28/24 Sanna Larsen, PACKAGER AND STRAPPER.ROAD INSPECTOR [address] [place] [address] Formerly [facility] 02/28/24 Denae Coombs, RAMIN [address] [place] [address] Primary Care Nutrition Director 04/03/24 Photo Print Specialist Relationship Specialty Start Date End Date Davis May MD [address] [place], [place] 313491 PCP - General Family Medicine 10/11/20 Nova Shahid MD [address] [place], [place] 1978395 Primary Staff Physician Cardiology 11/19/20 Derrek Bear MD [address] [place], [place] 8439495 Gastroenterology 12/02/23 Obdulia Martínez APRN.ROAD INSPECTOR [address] [place], [place] 856391 [facility] 02/28/24 Sanna Larsen APRN.ROAD INSPECTOR [address] [place] [address] [facility]ly [facility] 02/28/24 Denae Coombs, RN [address] [place], [place] 0712331 Primary Care Nutrition Director 04/03/24 Photo Print Specialist Relationship Specialty Start Date End Date Davis May MD [address] [place], [place] 945141 PCP - General Family Medicine 10/11/20 Nova Shahid MD [address] [place], [place] 1116995 Primary Staff Physician Cardiology 11/19/20 Derrek Bear MD [address] [place], [place] 2830695 Gastroenterology 12/02/23 Obdulia Martínez, PACKAGER AND STRAPPER.ROAD INSPECTOR [address] [place], [place] 415571 Assignment Officer [facility] 02/28/24 Sanna Larsen PACKAGER AND STRAPPER.ROAD INSPECTOR [address] [place], [place] 580041 [facility] 02/28/24 Denae Coombs, RAMIN [address] [place] [address] Primary Care Nutrition Director 04/03/24 Photo Print Specialist Relationship Specialty Start Date End Date Davis May MD [address] [place], [place] 285411 PCP - General Family Medicine 10/11/20 Nova Shahid MD [address] [place] [address] Primary Staff Physician Cardiology 11/19/20 Derrek Bear MD [address] [place] [address] Gastroenterology 12/02/23 Obdulia Martínez APRN.ROAD INSPECTOR [address] [place] [address] Formerly [facility] 02/28/24 Sanna Larsen PACKAGER AND STRAPPER.ROAD INSPECTOR [address] [place] [address] Formerly [facility] 02/28/24 Denae Coombs, RAMIN [address] [place] [address] Primary Care Nutrition Director 04/03/24 Photo Print Specialist Relationship Specialty Start Date End Date Davis May MD [address] [place], [place] 309471 PCP - General Family Medicine 10/11/20 Nova Shahid MD [address] [place], [place] 1307595 Primary Staff Physician Cardiology 11/19/20 Derrek Bear MD [address] [place], [place] 4507095 Gastroenterology 12/02/23 Obudlia Martínez APRN.ROAD INSPECTOR [address] [place], [place] 513151 [facility] 02/28/24 Sanna Larsen APRN.ROAD INSPECTOR [address] [place], [place] 814021 Formerly [facility] 02/28/24 Denae Coombs, RN [address] [place], [place] 9519831 Primary Care Nutrition Director 04/03/24 05/01/24 Photo Print Specialist Relationship Specialty Start Date End Date Davis May MD [address] [place], [place] 948071 PCP - General Family Medicine 10/11/20 Nova Shahid MD [address] [facility] [place], [place] 6249695 Primary Staff Physician Cardiology 11/19/20 Derrek Bear MD [address] [place], [place] 7372495 Gastroenterology 12/02/23 Obdulia Martínez, PACKAGER AND STRAPPER.ROAD INSPECTOR [address] [place], [place] 80979691 Assignment Officer [facility] 02/28/24 Sanna Larsen, PACKAGER AND STRAPPER.ROAD INSPECTOR [address] [place], [place] 478062 [phone] Formerly [facility] 02/28/24 Photo Print Specialist Relationship Specialty Start Date End Date Davis May MD [address] [place], [place] 221641 PCP - General Family Medicine 10/11/20 Nova Shahid MD [address] [place], [place] 0617795 Primary Staff Physician Cardiology 11/19/20 Derrek Bear MD [address] [place] [address] Gastroenterology 12/02/23 Obdulia Martínez APRN.ROAD INSPECTOR [address] [place], [place] 737721 Formerly [facility] 02/28/24 Sanna Larsen, PACKAGER AND STRAPPER.ROAD INSPECTOR [address] [place] [address] Formerly [facility] 02/28/24 Photo Print Specialist Relationship Specialty Start Date End Date Davis May MD [address] [place], [place] [id number] PCP - General Family Medicine 10/11/20 Nova Shahid MD [address] [place], [place] 3055995 Primary Staff Physician Cardiology 11/19/20 Derrek Bear MD [address] [address] Gastroenterology 12/02/23 Obdulia Martínez APRN.ROAD INSPECTOR [address] [facility], [place] 431571 Assignment Officer Family Medicine 02/28/24 Sanna Larsen APRN.ROAD INSPECTOR [address] [place] [address] Assignment Officer Family Medicine 02/28/24 Photo Print Specialist Relationship Specialty Start Date End Date Davis May MD [address] [facility], [place] 752491 PCP - General Family Medicine 10/11/20 Nova Shahid MD [address] [place] [address] Primary Staff Physician Cardiology 11/19/20 Derrek Bear MD [address] [place], [place] 5960995 Gastroenterology 12/02/23 Obdulia Martínez APRN.ROAD INSPECTOR [address] [facility] [place] [address] Assignment Officer Family Medicine 02/28/24 Sanna Larsen APRN.ROAD INSPECTOR [address] [place] [address] Assignment Officer Family Medicine 02/28/24 Photo Print Specialist Relationship Specialty Start Date End Date Davis May MD [address] [place] [address] PCP - General Family Medicine 10/11/20 Nova Shahid MD [address] [place] [address] Primary Staff Physician Cardiology 11/19/20 Derrek Bear MD [address] [place] [address] Gastroenterology 12/02/23 Obdulia Martínez APRN.ROAD INSPECTOR [address] [place] [address] Assignment Officer Family [facility] 02/28/24 Sanna Larsen APRN.ROAD INSPECTOR [address] [place] [address] [facility] 02/28/24 Photo Print Specialist Relationship Specialty Start Date End Date Davis May MD [address] [place] [address] PCP - General Family Medicine 10/11/20 Nova Shahid MD [address] [place] [address] Primary Staff Physician Cardiology 11/19/20 Derrek Bear MD [address] [place], [place] 6902295 Gastroenterology 12/02/23 Obdulia Martínez APRN.ROAD INSPECTOR [address] [place] [address] Formerly [facility] 02/28/24 Sanna Larsen, PACKAGER AND STRAPPER.ROAD INSPECTOR [address] [place] [address] Formerly [facility] 02/28/24 Photo Print Specialist Relationship Specialty Start Date End Date Davis May MD [address] [place] [address] PCP - General Family Medicine 10/11/20 Nova Shahid MD [address] [place], [place] 2831595 Primary Staff Physician Cardiology 11/19/20 Derrek Bear MD [address] [place], [place] 7141595 Gastroenterology 12/02/23 Obdulia Martínez, PACKAGER AND STRAPPER.ROAD INSPECTOR [address] [place] [address] Formerly [facility] 02/28/24 Sanna Larsen, PACKAGER AND STRAPPER.ROAD INSPECTOR [address] [place] [address] Formerly [facility] 02/28/24 Photo Print Specialist Relationship Specialty Start Date End Date Davis May MD [address] [place] [address] PCP - General Family Medicine 10/11/20 Nova Shahid MD [address] [place] [address] Primary Staff Physician Cardiology 11/19/20 Derrek Bear MD [address] [place] [address] Gastroenterology 12/02/23 Obdulia Martínez APRN.ROAD INSPECTOR [address] [facility] [place] [address] Assignment Officer Family Medicine 02/28/24 Sanna Larsen APRN.ROAD INSPECTOR [address] [place] [address] Assignment Officer Family Medicine 02/28/24 Photo Print Specialist Relationship Specialty Start Date End Date Davis May MD [address] [place], [place] 439451 PCP - General Family Medicine 10/11/20 Nova Shahid MD [address] [place] [address] Primary Staff Physician Cardiology 11/19/20 Derrek Bear MD [address] [place] [address] Gastroenterology 12/02/23 Obdulia Martínez APRN.ROAD INSPECTOR [address] [place] [address] Assignment Officer Family Medicine 02/28/24 Sanna Larsen APRN.ROAD INSPECTOR [address] [place] [address] Assignment Officer Family [facility] 02/28/24 Photo Print Specialist Relationship Specialty Start Date End Date Davis May MD [address] [place], [place] 313541 PCP - General Family Medicine 10/11/20 Nova Shahid MD [address] [place], [place] 0398995 Primary Staff Physician Cardiology 11/19/20 Derrek Bear MD [address] [place], [place] 7929795 Gastroenterology 12/02/23 Obdulia Martínez APRN.ROAD INSPECTOR [address] [place] [address] Assignment Officer [facility] 02/28/24 Sanna Larsen APRN.ROAD INSPECTOR [address] [place] [address] [facility] 02/28/24 Photo Print Specialist Relationship Specialty Start Date End Date Davis May MD [address] [place], [place] 327511 PCP - General Family Medicine 10/11/20 Nova Shahid MD [address] [place], [place] 5555195 Primary Staff Physician Cardiology 11/19/20 Derrek Bear MD [address] [place], [place] 1722695 Gastroenterology 12/02/23 Obdulia Martínez APRN.ROAD INSPECTOR [address] [place] [address] Assignment Officer Family [facility] 02/28/24 Sanna Larsen APRN.ROAD INSPECTOR [address] [facility], [place] 502521 Assignment Officer [facility] 02/28/24 Photo Print Specialist Relationship Specialty Start Date End Date Davis May MD [address] [facility], [place] 733421 PCP - General Family Medicine 10/11/20 Nova Shahid MD [address] [place], [place] 9435195 Primary Staff Physician Cardiology 11/19/20 Derrek Bear MD [address] [place], [place] 7140895 Gastroenterology 12/02/23 Obdulia Martínez APRN.ROAD INSPECTOR [address] [place] [address] Formerly [facility] 02/28/24 Sanna Larsen PACKAGER AND STRAPPER.ROAD INSPECTOR [address] [place] [address] Formerly [facility] 02/28/24 Riddhi Brower, composition molderCis Coordinator 05/22/24 Photo Print Specialist Relationship Specialty Start Date End Date Davis May MD [address] [place], [place] 795571 PCP - General Family Medicine 10/11/20 Nova Shahid MD [address] [place], [place] 1788695 Primary Staff Physician Cardiology 11/19/20 Derrek Bear MD [address] [place] [address] Gastroenterology 12/02/23 Obdulia Martínez APRN.ROAD INSPECTOR [address] [facility] [place] [address] Assignment Officer Family Medicine 02/28/24 Sanna Larsen APRN.ROAD INSPECTOR [address] [place] [address] Assignment Officer Family [facility] 02/28/24 Riddhi Brower, composition molderCis Coordinator 05/22/24 Photo Print Specialist Relationship Specialty Start Date End Date Davis May MD [address] [place], [place] 021971 PCP - General Family Medicine 10/11/20 Nova Shahid MD [address] [place], [place] 2291595 Primary Staff Physician Cardiology 11/19/20 Derrek Bear MD [address] [place], [place] 4042195 Gastroenterology 12/02/23 Obdulia Martínez APRN.ROAD INSPECTOR [address] [facility] [place] [address] Assignment Officer Family Medicine 02/28/24 Sanna Larsen APRN.ROAD INSPECTOR [address] [place] [address] Assignment Officer Family Medicine 02/28/24 Riddhi Brower, composition molderCis Coordinator 05/22/24 Photo Print Specialist Relationship Specialty Start Date End Date Davis May MD [address] [facility], [place] 976381 PCP - General Family Medicine 10/11/20 Nova Shahid MD [address] [place], [place] 9510795 Primary Staff Physician Cardiology 11/19/20 Derrek Bear MD [address] [place], [place] 8583495 Gastroenterology 12/02/23 Obdulia Martínez APRN.ROAD INSPECTOR [address] [place] [address] Assignment Officer Family [facility] 02/28/24 Sanna Larsen PACKAGER AND STRAPPER.ROAD INSPECTOR [address] [place] [address] Assignment Officer Family [facility] 02/28/24 Riddhi Brower, composition molderCis Coordinator 05/22/24 Photo Print Specialist Relationship Specialty Start Date End Date Davis May MD [address] [place] [address] PCP - General Family Medicine 10/11/20 Nova Shahid MD [address] [place], [place] 8646695 Primary Staff Physician Cardiology 11/19/20 Derrek Bear MD [address] [place], [place] 6710095 Gastroenterology 12/02/23 Obdulia Martínez, PACKAGER AND STRAPPER.ROAD INSPECTOR [address] [facility] [place] [address] Assignment Officer [facility] 02/28/24 Sanna Larsen APRN.ROAD INSPECTOR [address] [place] [address] Assignment Officer [facility] 02/28/24 Riddhi Brower, composition molderCis Coordinator 05/22/24 Photo Print Specialist Relationship Specialty Start Date End Date Davis May MD [address] [place], [place] 568801 PCP - General Family Medicine 10/11/20 Nova Shahid MD [address] [place], [place] 7970095 Primary Staff Physician Cardiology 11/19/20 Derrek Bear MD [address] [place] [address] Gastroenterology 12/02/23 Obdulia Martínez APRN.ROAD INSPECTOR [address] [facility] [place] [address] Formerly [facility] 02/28/24 Sanna Larsen PACKAGER AND STRAPPER.ROAD INSPECTOR [address] [place] [address] Assignment Officer [facility] 02/28/24 Riddhi Brower, composition molderCis Coordinator 05/22/24 Photo Print Specialist Relationship Specialty Start Date End Date Davis May MD [address] [place], [place] 835171 PCP - General Family Medicine 10/11/20 Nova Shahid MD [address] [place], [place] 4789095 Primary Staff Physician Cardiology 11/19/20 Derrek Bear MD [address] [place], [place] 7058695 Gastroenterology 12/02/23 Obdulia Martínez APRN.ROAD INSPECTOR [address] [facility] [place] [address] Assignment Officer [facility] 02/28/24 Sanna Larsen APRN.ROAD INSPECTOR [address] [place] [address] Assignment Officer Family [facility] 02/28/24 Riddhi Brower, composition molderCis Coordinator 05/22/24 Photo Print Specialist Relationship Specialty Start Date End Date Davis May MD [address] [place] [address] PCP - General Family Medicine 10/11/20 Nova Shahid MD [address] [place], [place] 5838995 Primary Staff Physician Cardiology 11/19/20 Derrek Bear MD [address] [place], [place] 0364195 Gastroenterology 12/02/23 Obdulia Martínez APRN.ROAD INSPECTOR [address] [facility] [place] [address] Assignment Officer Family [facility] 02/28/24 Sanna Larsen APRN.ROAD INSPECTOR [address] [place] [address] Assignment Officer [facility] 02/28/24 Riddhi Brower, composition molderCis Coordinator 05/22/24 Photo Print Specialist Relationship Specialty Start Date End Date Davis May MD [address] [place], [place] 614741 PCP - General Family Medicine 10/11/20 Nova Shahid MD [address] [place], [place] 9399895 Primary Staff Physician Cardiology 11/19/20 Derrek Bear MD [address] [place], [place] 3003495 Gastroenterology 12/02/23 Obdulia Martínez, PACKAGER AND STRAPPER.ROAD INSPECTOR [address] [place] [address] Formerly [facility] 02/28/24 Sanna Larsen APRN.ROAD INSPECTOR [address] [place] [address] [facility] 02/28/24 Riddhi Brower, composition molderCis Coordinator 05/22/24 Photo Print Specialist Relationship Specialty Start Date End Date Davis May MD [address] [place], [place] 639181 PCP - General Family Medicine 10/11/20 Nova Shahid MD [address] [place], [place] 9185395 Primary Staff Physician Cardiology 11/19/20 Derrek Bear MD [address] [place] [address] Gastroenterology 12/02/23 Obdulia Martínez APRN.ROAD INSPECTOR [address] [place] [address] Assignment Officer [facility] 02/28/24 Sanna Larsen APRN.ROAD INSPECTOR [address] [place], [place] 830231 [facility] 02/28/24 Denae Coombs, RAMIN [address] [place] [address] [id number] Primary Care Nutrition Director 04/03/24 05/01/24 Riddhi Brower, composition molderCis Coordinator 05/22/24 Photo Print Specialist Relationship Specialty Start Date End Date Davis May MD [address] [place] [address] PCP - General Family Medicine 10/11/20 Nova Shahid MD [address] [place], [place] 7988295 Primary Staff Physician Cardiology 11/19/20 Derrek Bear MD [address] [place], [place] 1805995 Gastroenterology 12/02/23 Obdulia Martínez APRN.ROAD INSPECTOR [address] [place] [address] Formerly [facility] 02/28/24 Sanna Larsen APRN.ROAD INSPECTOR [address] [place], [place] 959401 Assignment Officer Family [facility] 02/28/24 Riddhi Brower, composition molderCis Coordinator 05/22/24 Jaycee Ochoa, RAMIN Specialty Custodian Supervisor Hematology 07/17/24 Photo Print Specialist Relationship Specialty Start Date End Date Davis May MD [address] [place], [place] 958471 PCP - General Family Medicine 10/11/20 Nova Shahid MD [address] [place], [place] 9008495 Primary Staff Physician Cardiology 11/19/20 Derrek Bear MD [address] [place], [place] 7293695 Gastroenterology 12/02/23 Obdulia Martínez APRN.ROAD INSPECTOR [address] [place] [address] Formerly [facility] 02/28/24 Sanna Larsen APRN.ROAD INSPECTOR [address] [place] [address] Formerly [facility] 02/28/24 Riddhi Brower, composition molderCis Coordinator 05/22/24 Photo Print Specialist Relationship Specialty Start Date End Date Davis May MD [address] [place], [place] 462801 PCP - General Family Medicine 10/11/20 Nova Shahid MD [address] [place] [place], [place] 5143595 Primary Staff Physician Cardiology 11/19/20 Derrek Bear MD [address] [place], [place] 2827595 Gastroenterology 12/02/23 Obdulia Martínez, SAMANTHA.ROAD INSPECTOR [address] [facility] [place] [address] Assignment Officer Family [facility] 02/28/24 Sanna Larsen APRN.ROAD INSPECTOR [address] [facility], [place] 222551 Assignment Officer Family [facility] 02/28/24 Riddhi Brower, composition molderCis Coordinator 05/22/24 Jaycee Ochoa, RAMIN Specialty Custodian Supervisor Hematology 07/17/24 Photo Print Specialist Relationship Specialty Start Date End Date Davis May MD [address] [place], [place] 549071 PCP - General Family Medicine 10/11/20 Nova Shahid MD [address] [place], [place] 0681795 Primary Staff Physician Cardiology 11/19/20 Derrek Bear MD [address] [place], [place] 5680095 Gastroenterology 12/02/23 Obdulia Martínez APRN.ROAD INSPECTOR [address] [facility], [place] 146061 Ass[facility] 02/28/24 Sanna Larsen APRN.ROAD INSPECTOR [address] [facility], [place] 304931 Assignment [facility] 02/28/24 Riddhi Brower, composition molderCis Coordinator 05/22/2407/24/24 Jaycee Ochoa, RAMIN Specialty Custodian Supervisor Hematology 07/17/24 Photo Print Specialist Relationship Specialty Start Date End Date Davis May MD [address] [place], [place] 437471 PCP - General Family Medicine 10/11/20 Nova Shahid MD [address] [place], [place] 8028895 Primary Staff Physician Cardiology 11/19/20 Derrek Bear MD [address] [place], [place] 1770595 Gastroenterology 12/02/23 Obdulia Martínez, PACKAGER AND STRAPPER.ROAD INSPECTOR [address] [place] [address] Assignment Officer Family [facility] 02/28/24 Sanna Larsen PACKAGER AND STRAPPER.ROAD INSPECTOR [address] [place] [address] Assignment Officer Family Medicine 02/28/24 Riddhi Brower, composition molderCis Coordinator 05/22/2407/24/24 Jaycee Ochoa, RN Specialty Custodian Supervisor Hematology 07/17/24 Photo Print Specialist Relationship Specialty Start Date End Date Davis May MD [address] [place], [place] 989441 PCP - General Family Medicine 10/11/20 Nova Shahid MD [address] [place], [place] 7062195 Primary Staff Physician Cardiology 11/19/20 Derrek Bear MD [address] [place], [place] 4265295 Gastroenterology 12/02/23 Obdulia Martínez APRN.ROAD INSPECTOR [address] [facility], [place] 626751 Ass[facility] 02/28/24 Sanna Larsen APRN.ROAD INSPECTOR [address] [facility], [place] 154061 Formerly [facility] 02/28/24 Riddhi Brower, composition molderCis Coordinator 05/22/2407/24/24 Jaycee Ochoa, RAMIN Specialty Custodian Supervisor Hematology 07/17/24 Photo Print Specialist Relationship Specialty Start Date End Date Davis May MD [address] [place] [address] PCP - General Family Medicine 10/11/20 Nova Shahid MD [address] [place] [address] Primary Staff Physician Cardiology 11/19/20 Derrek Bear MD [address] [place] [address] Gastroenterology 12/02/23 Obdulia Martínez APRN.ROAD INSPECTOR [address] [facility], [place] 405081 Formerly [facility] 02/28/24 Sanna Larsen APRN.ROAD INSPECTOR [address] [place], [place] 91441691 [facility] 02/28/24 Jaycee Ochoa, RN Specialty Custodian Supervisor Hematology 07/17/24 Photo Print Specialist Relationship Specialty Start Date End Date Davis May MD [address] [place] [address] PCP - General Family Medicine 10/11/20 Nova Shahid MD [address] [place] [address] Primary Staff Physician Cardiology 11/19/20 Derrek Bear MD [address] [place] [place], [place] 2041295 Gastroenterology 12/02/23 Obdulia Martínez APRN.ROAD INSPECTOR [address] [place] [address] Formerly [facility] 02/28/24 Sanna Larsen PACKAGER AND STRAPPER.ROAD INSPECTOR [address] [place] [address] Formerly [facility] 02/28/24 Jaycee Ochoa, RN Specialty Custodian Supervisor Hematology 07/17/24 Photo Print Specialist Relationship Specialty Start Date End Date Davis May MD [address] [place] [address] PCP - General Family Medicine 10/11/20 Nova Shahid MD [address] [place], [place] 9449095 Primary Staff Physician Cardiology 11/19/20 Derrek Bear MD [address] [place], [place] 8923106 Gastroenterology 12/02/23 Obudlia Martínez APRN.ROAD INSPECTOR [address] [place] [address] [facility] 02/28/24 Sanna Larsen APRN.ROAD INSPECTOR [address] [place], [place] 065791 [facility] 02/28/24 Jaycee Ochoa, RAMIN Specialty Custodian Supervisor Hematology 07/17/24 Photo Print Specialist Relationship Specialty Start Date End Date Davis May MD [address] [place], [place] 93145691 PCP - General Family Medicine 10/11/20 Nova Shahid MD [address] [place], [place] 2024495 Primary Staff Physician Cardiology 11/19/20 Derrek Bear MD [address] [place], [place] 6123695 Gastroenterology 12/02/23 Obdulia Martínez APRN.ROAD INSPECTOR [address] [place] [address] Formerly [facility] 02/28/24 Sanna Larsen APRN.ROAD INSPECTOR [address] [place], [place] 52785691 Formerly [facility] 02/28/24 Riddhi Brower, composition molderCis Coordinator 05/22/2407/24/24 Jaycee Ochoa, RAMIN Specialty Custodian Supervisor Hematology 07/17/24 Photo Print Specialist Relationship Specialty Start Date End Date Davis May MD [address] [place], [place] 113421 PCP - General Family Medicine 10/11/20 Nova Shahid MD [address] [place], [place] 4219495 Primary Staff Physician Cardiology 11/19/20 Derrek Bear MD [address] [place], [place] 3801295 Gastroenterology 12/02/23 Obdulia Martínez APRN.ROAD INSPECTOR [address] [place], [place] 211191 Assignment Officer Family [facility] 02/28/24 Sanna Larsen PACKAGER AND STRAPPER.ROAD INSPECTOR [address] [place], [place] 432211 Assignment Officer Family Medicine 02/28/24 Riddhi Brower, composition molderCis Coordinator 05/22/2407/24/24 Jaycee Ochoa, RAMIN Specialty Custodian Supervisor Hematology 07/17/24 Team Status: Active Member Role Status Dates Dr. Davis May MD Primary Care Provider Active Team Status: Inactive Member Role Status Dates Dr. Davis May MD Primary Care Provider Active Start: April 14, 2024 End: April 14, 2024 YUSRA GUERRERO Attending Provider Active Start: Ren landers 2024 End: April 14, 2024 Team Status: Inactive Member Role Status Dates Dr. Davis May MD Primary Care Provider Active Start: August 06, 2024 End: August 06, 2024 Dr. Hay Rodríguez DO Emergency Provider Activ e Start: August 06, 2024 End: August 06, 2024 Photo Print Specialist Relationship Specialty Start Date End Date Davis May MD [address] [place], [place] 128631 PCP - General Family Medicine 10/11/20 Nova Shahid MD [address] [place] [address], [place] 0132495 Primary Staff Physician Cardiology 11/19/20 Derrek Bear MD [address] [place], [place] 4908995 Gastroenterology 12/02/23 Obdulia Martínez APRN.ROAD INSPECTOR [address] [place] [address] Assignment Officer Family Medicine 02/28/24 Sanna Larsen APRN.ROAD INSPECTOR [address] [place] [address] Assignment Officer Family Medicine 02/28/24 Jaycee Ochoa, RAMIN Specialty Custodian Supervisor Hematology 07/17/24 Photo Print Specialist Relationship Specialty Start Date End Date Davis May MD [address] [place] [address] PCP - General Family Medicine 10/11/20 Nova Shahid MD [address] [place] [address] Primary Staff Physician Cardiology 11/19/20 Derrek Bear MD [address] [place], [place] 2008795 Gastroenterology 12/02/23 Obdulia Martínez, PACKAGER AND STRAPPER.ROAD INSPECTOR [address] [place] [address] Assignment Officer [facility] 02/28/24 Sanna Larsen PACKAGER AND STRAPPER.ROAD INSPECTOR [address] [place] [address] Assignment Officer [facility] 02/28/24 Jaycee Ochoa RN Specialty Custodian Supervisor Hematology 07/17/24 Lana Jo MD [address] [place] [address] Physician Hematology/Oncology 08/11/24 [place] [address] [place] [address] Specialty Custodian Supervisor Hematology/Oncology 08/11/24 Photo Print Specialist Relationship Specialty Start Date End Date Davis May MD [address] [place] [address] PCP - General Family Medicine 10/11/20 [place] [address] [place] [address] Primary Staff Physician Cardiology 11/19/20 Derrek Bear MD [address] [place] [address] Gastroenterology 12/02/23 Obdulia Martínez APRN.ROAD INSPECTOR [address] [place], [place] 258771 [facility] 02/28/24 Sanna Larsen PACKAGER AND STRAPPER.ROAD INSPECTOR [address] [place], [place] 08315691 [facility] 02/28/24 Jaycee Ochoa, RAMIN Specialty Custodian Supervisor Hematology 07/17/24 Lana Jo MD [address] [place], [place] 3997595 Physician Hematology/Oncology 08/11/24 Breann Foster, RAMIN [address] [place], [place] 8127706 Specialty Custodian Supervisor Hematology/Oncology 08/11/24 Photo Print Specialist Relationship Specialty Start Date End Date Davis May MD [address] [place], [place] 74822691 PCP - General Family Medicine 10/11/20 [place] [address] [place] [address] [phone] Primary Staff Physician Cardiology 11/19/20 Derrek Bear MD [address] [place], [place] [phone] Gastroenterology 12/02/23 Obdulia Martínez, PACKAGER AND STRAPPER.ROAD INSPECTOR [address] [place], [place] [phone] Formerly [facility] 02/28/24 Sanna Larsen, PACKAGER AND STRAPPER.ROAD INSPECTOR [address] [place], [place] 146351 Formerly [facility] 02/28/24 Jaycee Ochoa, RAMIN Specialty Custodian Supervisor Hematology 07/17/24 Lana Jo MD [address] [place] [address] Physician Hematology/Oncology 08/11/24 Breann Foster RN [address] [place] [address] Specialty Custodian Supervisor Hematology/Oncology 08/11/24 Photo Print Specialist Relationship Specialty Start Date End Date Davis May MD [address] [place], [place] 616771 PCP - General Family Medicine 10/11/20 Nova Shahid MD [address] [place], [place] 8085295 Primary Staff Physician Cardiology 11/19/20 [place] [address] [place] [address] [id number] Gastroenterology 12/02/23 Obdulia Martínez APRN.ROAD INSPECTOR [address] [place], [place] 542131 Assignment Officer Family Medicine 02/28/24 Sanna Lrasen APRN.ROAD INSPECTOR [address] [place], [place] 213381 Assignment Officer Family Medicine 02/28/24 Jaycee Ochoa RN Specialty Custodian Supervisor Hematology 07/17/24 Lana Jo MD [address] [place], [place] [phone] Physician Hematology/Oncology 08/11/24 Breann Foster RN [address] [place] [address] 234[address] Specialty Custodian Supervisor Hematology/Oncology 08/11/24 Team Status: Active Member Role/Relationship [...] 2024 End: August 29, 2024 Obdulia Martínez UROLOGIST PHYSICIAN, UROLOGIST PHYSICIAN-C Attending Provider Active Start: August 29, 2024 End: August 29, 2024 Obdulia Martínez UROLOGIST PHYSICIAN, UROLOGIST PHYSICIAN-C Referring Provider Active Start: August 29, 2024 End: August 29, 2024 Photo Print Specialist Relationship Specialty Start Date End Date Davis May MD [address] [place], [place] [phone] PCP - General Family Medicine 10/11/20 Nova Shahid MD [address] [place] [address] Primary Staff Physician Cardiology 11/19/20 Derrek Bear MD [address] [place] [address] Gastroenterology 12/02/23 Obdulia Martínez, SAMANTHA.ROAD INSPECTOR [address] [place], [place] [id number] Assignment Officer Family [facility] 02/28/24 Sanna Larsen APRN.ROAD INSPECTOR [address] [place], [place] 857251 Assignment Officer Family Medicine 02/28/24 Jaycee Ochoa, RAMIN Specialty Custodian Supervisor Hematology 07/17/24 [place] [address] [place], [place] [phone] Physician Hematology/Oncology 08/11/24 Breann Foster RN [address] [place], [place] [phone] Specialty Custodian Supervisor Hematology/Oncology 08/11/24 Photo Print Specialist Relationship Specialty Start Date End Date Davis May MD [address] [place] [address] [id number] PCP - General Family Medicine 10/11/20 Nova Shahid MD [address] [place] [address] [phone] Primary Staff Physician Cardiology 11/19/20 Derrek Bear MD [address] [place], [place] [phone] Gastroenterology 12/02/23 Obdulia Martínez, PACKAGER AND STRAPPER.ROAD INSPECTOR [address] [place] [address] [phone] Assignment Officer Family [facility] 02/28/24 Sanna Larsen, PACKAGER AND STRAPPER.ROAD INSPECTOR [address] [place] [address] [id number] Assignment Officer Family [facility] 02/28/24 Jaycee Ochoa, RAMIN Specialty Custodian Supervisor Hematology 07/17/24 Lana Jo MD [address] [place] [address] Physician Hematology/Oncology 08/11/24 Breann Foster RN [address] [place] [address] 20865 Specialty Custodian Supervisor Hematology/Oncology 08/11/24 Photo Print Specialist Relationship Specialty Start Date End Date Davis May MD [address] [place], [place] [id number] PCP - General Family Medicine 10/11/20 Nova Shahid MD [address] [place], [place] [phone] Primary Staff Physician Cardiology 11/19/20 Derrek Bear MD [address] [place], [place] [phone] Gastroenterology 12/02/23 Obdulia Martínez, PACKAGER AND STRAPPER.ROAD INSPECTOR [address] [place], [place] 935641 Assignment Officer Family [facility] 02/28/24 Sanna Larsen, PACKAGER AND STRAPPER.ROAD INSPECTOR [address] [place], [place] 958661 Assignment Officer Family [facility] 02/28/24 Jaycee Ochoa, RN Specialty Custodian Supervisor Hematology 07/17/24 Lana Jo MD [address] [place], [place] [phone] Physician Hematology/Oncology 08/11/24 [place] [address] [place], [place] [phone] Specialty Custodian Supervisor Hematology/Oncology 08/11/24 Photo Print Specialist Relationship Specialty Start Date End Date Davis May MD [address] [place], [place] 448101 PCP - General Family Medicine 10/11/20 [place] [address] [place] [address] [phone] Primary Staff Physician Cardiology 11/19/20 Derrek Bear MD [address] [place] [address] Gastroenterology 12/02/23 Obdulia Martínez APRN.ROAD INSPECTOR [address] [place] [address] [phone] Assignment Officer Family [facility] 02/28/24 Sanna Larsen APRN.ROAD INSPECTOR [address] [place] [address] [id number] Assignment Officer [facility] 02/28/24 Jaycee Ochoa RN Specialty Custodian Supervisor Hematology 07/17/24 Lana Jo MD [address] [place], [place] [phone] Physician Hematology/Oncology 08/11/24 [place] [address] [place], [place] [phone] Specialty Custodian Supervisor Hematology/Oncology 08/11/24 Photo Print Specialist Relationship Specialty Start Date End Date Davis May MD [address] [place] [address] [id number] PCP - General Family Medicine 10/11/20 Nova Shahid MD [address] [place] [address] [phone] Primary Staff Physician Cardiology 11/19/20 [place] [address] [place] [address] [phone] Gastroenterology 12/02/23 Obdulia Martínez APRN.ROAD INSPECTOR [address] [place], [place] [phone] [facility] 02/28/24 Sanna Larsen APRN.ROAD INSPECTOR [address] [place], [place] 911231 [facility] 02/28/24 Jaycee Ochoa, RAMIN Specialty Custodian Supervisor Hematology 07/17/24 Lana Jo MD [address] [place], [place] [phone] Physician Hematology/Oncology 08/11/24 [place] [address] [place], [place] [phone] Specialty Custodian Supervisor Hematology/Oncology 08/11/24 Photo Print Specialist Relationship Specialty Start Date End Date Davis May MD [address] [place], [place] [phone] PCP - General Family Medicine 10/11/20 Nova Shahid MD [address] [place], [place] [phone] Primary Staff Physician Cardiology 11/19/20 Derrek Bear MD [address] [place], [place] [phone] Gastroenterology 12/02/23 Obdulia Martínez APRN.ROAD INSPECTOR [address] [place] [address] [facility] 02/28/24 Sanna Larsen APRN.ROAD INSPECTOR [address] [place] [address] Assignment Officer Family Medicine 02/28/24 Jaycee Ochoa, RAMIN Specialty Custodian Supervisor Hematology 07/17/24 [place] [address] [place] [address] Physician Hematology/Oncology 08/11/24 Breann Foster, RAMIN [address] [place] [address] Specialty Custodian Supervisor Hematology/Oncology 08/11/24 Photo Print Specialist Relationship Specialty Start Date End Date Davis May MD [address] [place] [address] 237[address] PCP - General Family Medicine 10/11/20 Nova Shahid MD [address] [place] [address] 22157 Primary Staff Physician Cardiology 11/19/20 Derrek Bear MD [address] [place] [address] [phone] Gastroenterology 12/02/23 Obdulia Martínez, PACKAGER AND STRAPPER.ROAD INSPECTOR [facility] [place] [address] Assignment Officer Family [facility] 02/28/24 Sanna Larsen, PACKAGER AND STRAPPER.ROAD INSPECTOR [facility] [place], [place] [phone] Assignment Officer Family Medicine 02/28/24 Jaycee Ochoa, RAMIN Specialty Custodian Supervisor Hematology 07/17/24 Lana Jo MD [address] [place] [address] Physician Hematology/Oncology 08/11/24 Breann Foster, RAMIN [address] [place] [address] [phone] Specialty Custodian Supervisor Hematology/Oncology 08/11/24 Photo Print Specialist Relationship Specialty Start Date End Date Davis May MD [address] [place], [place] [phone] PCP - General Family Medicine 10/11/20 [place] [address] [place] [address] [phone] Primary Staff Physician Cardiology 11/19/20 Derrek Bear MD [address] [place] [address] [phone] Gastroenterology 12/02/23 Obdulia Martínez, PACKAGER AND STRAPPER.ROAD INSPECTOR [facility] [place], [place] [phone] [facility] 02/28/24 Sanna Larsen, PACKAGER AND STRAPPER.ROAD INSPECTOR [address] [place] [address] [phone] Assignment Officer Family [facility] 02/28/24 Jaycee Ochoa, RAMIN Specialty Custodian Supervisor Hematology 07/17/24 Lana Jo MD [address] [place], [place] [phone] Physician Hematology/Oncology 08/11/24 Breann Foster RN [address] [place] [address] Specialty Custodian Supervisor Hematology/Oncology 08/11/24 Photo Print Specialist Relationship Specialty Start Date End Date Davis May MD [address] [place], [place] 426331 PCP - General Family Medicine 10/11/20 oNva Shahid MD [address] [place] [address] Primary Staff Physician Cardiology 11/19/20 Derrek Bear MD [address] [place], [place] [phone] Gastroenterology 12/02/23 Obdulia Martínez APRN.ROAD INSPECTOR [address] [place] [address] Assignment Officer Family [facility] 02/28/24 Sanna Lasren PACKAGER AND STRAPPER.ROAD INSPECTOR [address] [place], [place] 124071 Assignment Officer Family Medicine 02/28/24 Jaycee Ochoa, RAMIN Specialty Custodian Supervisor Hematology 07/17/24 Lana Jo MD [address] [place] [address] Physician Hematology/Oncology 08/11/24 [place] [address] [place], [place] [phone] Specialty Custodian Supervisor Hematology/Oncology 08/11/24 Photo Print Specialist Relationship Specialty Start Date End Date Davis May MD [address] [place] [address] PCP - General Family Medicine 10/11/20 Nova Shahid MD [address] [place], [place] [phone] Primary Staff Physician Cardiology 11/19/20 Derrek Bear MD [address] [place], [place] [phone] Gastroenterology 12/02/23 Obdulia Martínez APRN.ROAD INSPECTOR [address] [place], [place] [phone] Assignment Officer Family [facility] 02/28/24 Sanna Larsen APRN.ROAD INSPECTOR [address] [place] [address] [id number] Assignment Officer [facility] 02/28/24 Jaycee Ochoa RN Specialty Custodian Supervisor Hematology 07/17/24 Lana Jo MD [address] [place] [address] [phone] Physician Hematology/Oncology 08/11/24 [place] [address] [place] [address] Specialty Custodian Supervisor Hematology/Oncology 08/11/24 Photo Print Specialist Relationship Specialty [place] [address] [place] [address] [phone] PCP - General Family Medicine 10/11/20 Nova Shahid MD [address] [place] [address] Primary Staff Physician Cardiology 11/19/20 Derrek Bear MD [address] [place], [place] [phone] Gastroenterology 12/02/23 Obdulia Martínez APRN.ROAD INSPECTOR [address] [place], [place] 207911 Formerly [facility] 02/28/24 Sanna Larsen APRN.ROAD INSPECTOR [address] [place], [place] 660641 Former[facility] 02/28/24 Jaycee Ochoa, RAMIN Specialty Custodian Supervisor Hematology 07/17/24 Lana Jo MD [address] [place], [place] [phone] Physician Hematology/Oncology 08/11/24 [place] [address] [place], [place] [phone] Specialty Custodian Supervisor Hematology/Oncology 08/11/24 Photo Print Specialist Relationship Specialty Start Date End Date Davis May MD [address] [place], [place] 800121 PCP - General Family Medicine 10/11/20 Nova Shahid MD [address] [place] [address] Primary Staff Physician Cardiology 11/19/20 Derrek Bear MD [address] [place] [address] Gastroenterology 12/02/23 Obdulia Martínez APRN.ROAD INSPECTOR [address] [place] [address] [facility]ly [facility] 02/28/24 Sanna Larsen APRN.ROAD INSPECTOR [address] [place] [address] Assignment Officer Family Medicine 02/28/24 Jaycee Ochoa, RAMIN Specialty Custodian Supervisor Hematology 07/17/24 [place] [address] [place] [address] [phone] Physician Hematology/Oncology 08/11/24 [place] [address] [place], [place] [phone] Specialty Custodian Supervisor Hematology/Oncology 08/11/24 Photo Print Specialist Relationship Specialty [place] [address] [place] [address] 99806 PCP - General Family Medicine 10/11/20 Nova Shahid MD [address] [place] [address] 80185 Primary Staff Physician Cardiology 11/19/20 Derrek Bear MD [address] [place] [address] [phone] Gastroenterology 12/02/23 Obdulia Martínez APRN.ROAD INSPECTOR [address] [place] [address] [facility] 02/28/24 Sanna Larsen PACKAGER AND STRAPPER.ROAD INSPECTOR [address] [place] [address] Assignment Officer Family Medicine 02/28/24 Jaycee Ochoa, RAMIN Specialty Custodian Supervisor Hematology 07/17/24 Lana Jo MD [address] [place] [address] Physician Hematology/Oncology 08/11/24 Breann Foster, RAMIN [address] [place] [address] [phone] Specialty Custodian Supervisor Hematology/Oncology 08/11/24 Photo Print Specialist Relationship Specialty Start Date End Date Davis May MD [address] [place], [place] 067881 PCP - General Family Medicine 10/11/20 Nova Shahid MD [address] [place], [place] [phone] Primary Staff Physician Cardiology 11/19/20 Derrek Bear MD [address] [place], [place] [phone] Gastroenterology 12/02/23 Obdulia Martínez, PACKAGER AND STRAPPER.ROAD INSPECTOR [address] [place], [place] 021831 Assignment Officer Family Medicine 02/28/24 Sanna Larsen, PACKAGER AND STRAPPER.ROAD INSPECTOR [address] [place], [place] [phone] Assignment Officer Family Medicine 02/28/24 Jaycee Ochoa, RAMIN Specialty Custodian Supervisor Hematology 07/17/24 Lana Jo MD [address] [place] [address] Physician Hematology/Oncology 08/11/24 Breann Foster, RAMIN [address] [place] [address] 11447 Specialty Custodian Supervisor Hematology/Oncology 08/11/24 Photo Print Specialist Relationship Specialty Start Date End Date Davis May MD [address] [place], [place] 094251 PCP - General Family Medicine 10/11/20 Nova Shahid MD [address] [place] [address] [phone] Primary Staff Physician Cardiology 11/19/20 Derrek Bear MD [address] [place] [address] [phone] Gastroenterology 12/02/23 Obdulia Martínez APRN.ROAD INSPECTOR [address] [place] [address]33 Assignment Officer Family Medicine 02/28/24 Sanna Larsen APRN.ROAD INSPECTOR [address] [place] [address]2007 Assignment Officer Family Medicine 02/28/24 Jaycee Ochoa, RN Specialty Custodian Supervisor Hematology 07/17/24 [place] [address] [place] [address] Physician Hematology/Oncology 08/11/24 [place] [address] [place], [place] [phone] Specialty Custodian Supervisor Hematology/Oncology 08/11/24 Team Status: Active Member Role/Relationship Status Dates Dr. Davis May MD Primary care physician Active Team Status: Inactive Member Role/Relationship Status Dates Dr. Davis May MD Primary care physician Active Start: November 03, 2024 End: November 03, 2024 Obdulia Martínez UROLOGIST PHYSICIAN, UROLOGIST PHYSICIAN-C Attending physician Active Start: November 03, 2024 End: November 03, 2024 Obdulia Martínez NP, UROLOGIST PHYSICIAN-C Referring Provider Active Start: November 03, 2024 End: November 03, 2024 Team Status: Inactive Member Role/Relationship Status Dates Dr. Davis May MD Primary care physician Active Start: January 05, 2025 End: January 05, 2025 Dr. Lonnie Mojica DO Attending physician Active Start: January 05, 2025 End: January 05, 2025 Dr. Lonnie Mojica DO Emergency Department Physician A ctive Start: January 05, 2025 End: January 05, 2025 Goals (unrecognized section and content) Goals may [...] Intraprocedure Given 07/06/2023 9:37 AM EDT 1 [place] fentaNYL 50 mcg/mL injection (SUBLIMAZE) INTRAVENOUS, X (OR/PROCEDURE) PRN, Starting on Wed07/06/23 at 0938, Until Wed07/06/23 at 0941, Intraprocedure Given 07/06/2023 9:41 AM [...] BE BASED ON THE PRIMARY CLINICAL RECORDS. [facility] [employer] provides no warranty or guarantee of the accuracy or completeness of information in this document.
[2025-03-08] MEDS: DiphenhydrAMINE 50 MG/ML Syringe IV (01:50)
[2025-03-08 02:05] VITALS: O2SAT 87
[2025-03-08 02:09] VITALS: O2SAT 93
--- NOTE | 2025-03-08 02:09 | EX.ED.DYSGE1 ---
HPI History of Present Illness Chief Complaint: Lower Extremity Injury Informant: patient and spouse/S.O. Narrative Narrative: Patient is a 74-year-old male with history of autoimmune hepatitis hypertension and thrombocytopenia currently on Eliquis. He underwent ORIF of a left femoral neck fracture roughly 1 week ago at [facility]. He reports he had a stay in the hospital for multiple days in order to achieve adequate pain control. He states that he was discharged home on oral Dilaudid which he states he has been taking. He states he was also prescribed gabapentin but each time he takes the medication it causes him to have bouts of nausea and vomiting. He states that he also started physical therapy and after doing the extra activity noticed increased pain in his left leg. Secondary to the worsening symptoms he was seen in the ER just 24 hours ago. He states his workup was negative but as his home medication is not helping his symptoms he presents for repeat evaluation. He states there has been no repeat trauma since being discharged [facility] Medical History Portal vein thrombosis Esophageal varices GERD (gastroesophageal reflux disease) HTN (hypertension) Hypertrophic cardiomyopathy Autoimmune hepatitis History of immunosuppression therapy Thrombocytopenia Home Medications ?Medication ?Instructions ?Recorded ?Last Taken ?Type clonidine HCl 0.1 mg tablet 0.1 mg PO Q8H BLOOD PRESSURE 08/20/19 03/06/25 History tacrolimus 1 mg capsule, 1 mg PO BID 08/20/19 03/06/25 History immediate-release amlodipine 5 mg tablet 5 mg PO DAILY blood pressure 03/27/23 03/06/25 History mycophenolate mofetil 500 mg 500 mg PO BID organ rejection 03/27/23 03/06/25 History tablet (CellCept) pantoprazole 40 mg tablet,delayed 40 mg PO BID GERD #60 tabs 03/29/23 03/06/25 Rx release (Protonix) Lactobac no.2-Bifidobac no.1-S. 1 cap PO BID SUPPLEMENT 03/06/25 03/06/25 History thermo 112.5 billion cell capsule (VSL#3) apixaban 5 mg tablet (Eliquis) 5 mg PO BID 03/06/25 03/06/25 History avatrombopag 20 mg tablet 20 mg PO MOWEFR LOW PLATELET 03/06/25 03/05/25 History (Doptelet (15 tab pack)) carvedilol 12.5 mg tablet 12.5 mg PO BID HEART 03/06/25 03/06/25 History cholecalciferol (vitamin D3) 50 3,000 unit PO DAILY supplement 03/06/25 03/06/25 History mcg (2,000 unit) tablet (Vitamin D3) gabapentin 100 mg capsule 100 mg PO QHS PAIN 03/06/25 03/05/25 History glipizide 5 mg tablet, extended 5 mg PO DAILY BLOOD SUGAR 03/06/25 03/06/25 History release 24 hr hydromorphone 2 mg tablet 2 mg PO PRN pain 03/06/25 Unknown History hydromorphone 2 mg tablet 2 mg PO Q6H PRN pain 2 days #7 tabs 03/06/25 Unknown Rx (Dilaudid) methocarbamol 500 mg tablet 500 mg PO TID PAIN 03/06/25 03/06/25 History ondansetron 4 mg disintegrating 4 mg PO Q8H PRN PRN Nausea #10 tabs 03/06/25 Unknown Rx tablet diazepam 5 mg tablet (Valium) 5 mg PO TID PRN muscle spasm 7 03/08/25 Unknown Rx days #21 tabs hydromorphone 4 mg tablet 4 mg PO Q6H PRN pain 5 days #20 03/08/25 Unknown Rx (Dilaudid) tabs pregabalin 100 mg capsule (Lyrica) 100 mg PO BID 10 days #20 caps 03/08/25 Unknown Rx Allergy/AdvReac Type Severity Reaction Status Date / Time hydrocodone (From Vicodin) Allergy Anaphylaxis Verified 03/08/25 01:05 lidocaine Allergy Rash Verified 03/08/25 01:05 NSAIDS (Non-Steroidal Allergy Other Verified 03/08/25 01:05 Anti-Inflamma oxycodone Allergy Anaphylaxis Verified 03/08/25 01:05 Social History Smoking Status: Former smoker ROS ROS ED Constitutional Constitutional ED: Denies chills or fever(s) Eyes Eyes: Denies change in vision ENT ENT ED: Denies sore throat Cardiovascular Cardiovascular: Denies chest pain, palpitations or racing heartbeat Respiratory/Chest Respiratory/Chest: Denies cough or dyspnea Gastrointestinal Gastrointestinal: Reports nausea and vomiting; Denies abdominal pain or diarrhea Musculoskeletal Musculoskeletal: Reports other Details: Positive left hip/thigh pain Integumentary Reports other Details: Positive bruising left thigh Neurologic Neurologic: Denies headache(s) Hematologic/Lymphatic Hematologic/Lymphatic: Reports easy bleeding and easy bruising EXAM Physical Exam Const Vital Signs: 03/08/25 01:00 03/08/25 02:05 03/08/25 02:09 Temperature 98.3 F Temperature Source Oral Pulse Rate 58 L Respiratory Rate 16 Blood Pressure 132/74 H Blood Pressure Mean 93 Pulse Ox 99 87 93 Oxygen Delivery Method Room Air Room Air Nasal Cannula Oxygen Flow Rate (L/min) 2 03/08/25 03:44 Temperature 98.0 F Temperature Source Pulse Rate 56 L Respiratory Rate 16 Blood Pressure 127/75 H Blood Pressure Mean 92 Pulse Ox 98 Oxygen Delivery Method Oxygen Flow Rate (L/min) Positive well nourished and well developed General Appearance ED: well developed HEENT HEENT Narrative: Normocephalic atraumatic Eyes PERRL and EOMs intact bilaterally General Eye ED: Negative for scleral icterus Neck supple Resp normal respiratory effort and clear to auscultation bilaterally Cardio regular rate and regular rhythm GI non-tender, non-distended and no masses GI Narrative: Soft nontender nondistended with hypoactive bowel sound No voluntary guarding or rigidity No pulsatile mass No peritoneal signs Auscultation: hypoactive bowel sounds Palpation: soft Extremity Extremity Narrative: There is asymmetric swelling of the left leg diffusely compared to right and this correlates with his recent surgical procedure His wound is clean dry and intact without secondary findings to suggest infection There is a large area of ecchymosis as well as hematoma formation noted along the anterior lateral aspect of the left thigh The compartments are still compressible however going against compartment syndrome The left lower extremity is neurovascularly intact. Dorsalis pedis pulse is plus 2 out of 4. Capillary refill is less than 3-second Negative Homans' sign There is pain on palpation of the anterior lateral aspect of the thigh over top of the hematoma as well as pain with motion which correlates with his recent fracture and ORIF Neuro oriented x3 and CN's II-XII intact bilaterally Sensorium / Orientation: alert Psych mental status grossly normal Skin Skin Narrative: Postsurgical wound to the left thigh as documented above without secondary findings of infection as well as left thigh hematoma as documented above without findings to suggest compartment syndrome MDM MDM MDM Narrative Medical decision making narrative: Patient arrived to the ER with stable vitals. He reported that he was seen in the ER roughly 24 hours ago for the exact same complaint. Therefore the previous ER record was reviewed. Patient had a venous duplex of the left leg which revealed no sign of DVT as well as a CTA of the chest which revealed no PE. Blood work confirmed elevation to his bleeding time with INR of 2.4 as well as thrombocytopenia with a platelet count of 91. However chart review reveals the thrombocytopenia is chronic and this value of 91 is actually higher than the previous value. His hemoglobin is slightly low but well above the transfusion need and is at his baseline per chart review. With his history of Eliquis use and thrombocytopenia and his physical exam showing a hematoma I feel his increased pain is secondary to these changes. We discussed that we could repeat a CT scan today but of the lower extremity with runoff to ensure there is no active bleeding. However his exam does not suggest any sign of arterial injury or occlusion and his exam does not suggest secondary infection such as cellulitis or abscess nor does it show findings of compartment syndrome. Therefore we elected to forego any further testing as it was just done the other day and was normal and his labs are at baseline and simply elected to treat his symptoms. He was medicated with IV Dilaudid as well as Benadryl and Compazine and given oral Lyrica. After receiving these medications he did have resolution of his pain. We discussed potential admission for intractable pain. I did inform the patient that there is a chance he may need transfer to the [facility] where surgery was done if this was to be considered but I would initially talk to the hospitalist about it. The patient and state he is doing better at this time and is I am going to write him new prescriptions they are willing to go home and try these outpatient medications first. They state that if his pain is not controlled they will return to the ER once again to seek pain management and discuss potential admission or transfer at that time. 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, Autoimmune hepatitis Instructions: Pain Management After Surgery, ED Hematoma Prescriptions: New pregabalin [Lyrica] 100 mg capsule 100 mg PO BID 10 Days Qty: 20 0RF diazepam [Valium] 5 mg tablet 5 mg PO TID PRN (Reason: muscle spasm) 7 Days Qty: 21 0RF hydromorphone [Dilaudid] 4 mg tablet 4 mg PO Q6H PRN (Reason: pain) 5 Days Qty: 20 0RF No Action clonidine HCl 0.1 MG tablet 0.1 mg PO Q8H tacrolimus 1 MG capsule 1 mg PO BID amlodipine 5 mg tablet 5 mg PO DAILY mycophenolate mofetil [CellCept] 500 mg tablet 500 mg PO BID pantoprazole [Protonix] 40 mg tablet,delayed release (DR/EC) 40 mg PO BID Qty: 60 2RF Rx Instructions: advised TWICE DAILY FOR 2 months THEN ONCE DAILY methocarbamol 500 mg tablet 500 mg PO TID carvedilol 12.5 mg tablet 12.5 mg PO BID glipizide 5 mg tablet extended release 24hr 5 mg PO DAILY hydromorphone 2 mg tablet 2 mg PO PRN (Reason: pain) gabapentin 100 mg capsule 100 mg PO QHS Eliquis 5 mg tablet 5 mg PO BID cholecalciferol (vitamin D3) [Vitamin D3] 50 mcg (2,000 unit) tablet 3,000 unit PO DAILY Patient Comments: pt takes 3 times a week Doptelet (15 tab pack) 20 mg tablet 20 mg PO [facility] 112.5 billion cell capsule 1 cap PO BID hydromorphone [Dilaudid] 2 mg tablet 2 mg PO Q6H PRN (Reason: pain) 2 Days Qty: 7 0RF ondansetron 4 mg tablet,disintegrating 4 mg PO Q8H PRN PRN (Reason: Nausea) Qty: 10 0RF Primary Care Provider: Flako Ornelas Referrals: Flako Ornelas MD [Primary Care Provider, Medical] Activity Restrictions/Additional Instructions: Please stop the gabapentin as it is causing nausea and vomiting and begin taking the Lyrica for improved symptom control. Stop the Robaxin/methocarbamol and begin Valium for improved muscle spasm relief. Begin taking the 4 mg Dilaudid 4 times a day as directed for improved pain control as well. Follow-up with your doctor for repeat evaluation and return to the ER if you have any further concerns Print Language: Moroccan Disposition Disposition: Home, Self Care Discharge Date/Time: 03/08/25 03:46
[2025-03-08 03:44] VITALS: BP 127/75; PULSE 56; RESP 16; TEMP 36.7; O2SAT 98
== END 2025-03-08 03:46 | disposition home or self-care (01) ==
PROVIDERS: Emergency Provider Emergency Medicine; PCP Family Medicine; Visit Provider Emergency Medicine
DX: G89.18 Other acute postprocedural pain (principal); D69.6 Thrombocytopenia, unspecified; Z79.01 Long term (current) use of anticoagulants; Z86.718 Personal history of other venous thrombosis and embolism; Z87.891 Personal history of nicotine dependence
CPT/HCPCS: 96374; 96375; 96376; 99282; A4216